=== PATIENT | female | born 1945 | race Caucasian/White ===

== ENCOUNTER 2020-08-16 07:20 | Outpatient (REF) | payer MEDICARE, SELFPAY ==
--- NOTE | 2020-08-16 07:17 | CT_ITS ---
EXAMINATION: CT CHEST WITHOUT CONTRAST CLINICAL INFORMATION: Follow-up pulmonary nodule COMPARISON: Previous chest CT August 2019 and PET/CT September 2017 TECHNIQUE: Multidetector volumetric CT imaging of the chest was done. Axial MIP volume rendering provided. Sagittal and coronal reformatted images were obtained. This CT examination was performed using dose optimization techniques as appropriate, variously including the following: *Automated exposure control *Adjustment of mA and/or kV according to patient size (this includes techniques or standardized protocols for targeted exams where dose is matched to indication/reason for exam; i.e. extremities or head) *Use of iterative reconstruction technique DLP: 69 mGy-cm FINDINGS: LUNGS: There is mild biapical pleural and parenchymal scarring that is stable. There is a 3 mm nodule in the right lower lobe axial image 326 series 7 that is stable. There is a 2 mm right lower lobe nodule axial image 285 series 7 that is stable. There is a 3 mm right lower lobe nodule in the right lower lobe axial image 350 series 7 that is stable. There is a 2 mm left upper lobe nodule axial image 202 and 207 series 7 that are stable. All pulmonary nodules appear endobronchial and may be related to mucus plugging or secretions. There is scarring or chronic subsegmental atelectasis in the lingula that is stable. MEDIASTINUM: There is mild coronary artery calcification. The heart does not appear enlarged. There is no pericardial effusion. The thoracic aorta is normal in caliber. There are no enlarged hilar or mediastinal lymph nodes. The visualized thyroid gland is unremarkable. PLEURA: There is no pleural effusion. No pleural mass or thickening. AXILLA: No lymphadenopathy. UPPER ABDOMEN: There is a low-attenuation lesion in the left lobe of the liver measuring 1.5-1.5 cm that is stable and probably represents a cyst. OSSEOUS STRUCTURES: There is scoliosis and degenerative change of the spine. IMPRESSION: Stable small pulmonary nodules.
== END 2020-08-16 07:21 | disposition home or self-care (01) ==
LOC: HO.CT 07:20
PROVIDERS: PCP Internal Medicine; Visit Provider Hospitalist
DX: R91.8 Other nonspecific abnormal finding of lung field (principal)
CPT/HCPCS: 71250

== ENCOUNTER → 2020-08-28 08:47 | Outpatient (BNVA) | payer MEDICARE, SELFPAY | PROVIDERS: PCP Internal Medicine; Referring Provider Internal Medicine; Visit Provider Hospitalist | DX: J41.0 Simple chronic bronchitis (principal); R91.8 Other nonspecific abnormal finding of lung field; K21.00 Gastro-esophageal reflux disease with esophagitis, without bleeding; A31.9 Mycobacterial infection, unspecified; Z79.82 Long term (current) use of aspirin; Z79.899 Other long term (current) drug therapy | CPT/HCPCS: 99214 ==

== ENCOUNTER 2020-09-18 08:00 | Outpatient (REF) | payer MEDICARE, SELFPAY ==
--- NOTE | 2020-09-18 08:00 | FL_ITS ---
EXAMINATION: FL BARIUM SWALLOW CLINICAL INFORMATION: Gastroesophageal reflux disease with esophagitis. COMPARISON: CT performed 08/16/2020. TECHNIQUE: Barium swallow examination is performed using fluoroscopic evaluation in addition to multiple fluoroscopic spot views. The patient is imaged both upright and prone and using both thick and thin sulfate along with effervescent granules. A 13 mm barium tablet utilized. Fluoroscopy time: 1.5 minutes DAP: 3.059 Gycm2 Images: 69 FINDINGS: There is normal oral bolus control and transfer. Normal posterior tilt of the epiglottis with elevation of the hyoid. No cricopharyngeal abnormality. Anterior fusion hardware noted at the cervical spine at the C4-C5 level. The esophagus was normal in course, caliber, and contour. There was normal distensibility with no fixed segment of narrowing. No focal mucosal abnormality was identified. The 13 mm barium tablet freely passed to the distal esophagus near the gastroesophageal junction. Mild esophageal dysmotility was observed, with stasis seen with the patient in the prone position. Contrast passed freely across the gastroesophageal junction into the stomach. No significant hiatal hernia. No gastroesophageal reflux was observed. FL/FL barium swallow IMPRESSION: Mild esophageal dysmotility. Otherwise unremarkable examination.
== END 2020-09-18 08:01 | disposition home or self-care (01) ==
LOC: HO.XRAY 08:00
PROVIDERS: PCP Internal Medicine; Visit Provider Hospitalist
DX: K21.00 Gastro-esophageal reflux disease with esophagitis, without bleeding (principal)
CPT/HCPCS: 74220

== ENCOUNTER 2020-10-02 11:00 | Outpatient (RCR) | payer MEDICARE, SELFPAY | END 2020-11-16 08:13 | disposition home or self-care (01) | LOC: HO.PTCHIC 11:00 | PROVIDERS: PCP Internal Medicine; Visit Provider Physician Assistant | DX: M77.8 Other enthesopathies, not elsewhere classified (principal) | CPT/HCPCS: 97110; 97140; 97161 ==

== ENCOUNTER 2020-10-31 08:50 | Outpatient (REF) | payer MEDICARE, SELFPAY | END 2020-10-31 08:51 | disposition home or self-care (01) | LOC: HO.LAB 08:50 | PROVIDERS: PCP Internal Medicine; Visit Provider Internal Medicine | DX: Z20.828 Contact with and (suspected) exposure to other viral communicable diseases (principal) | CPT/HCPCS: C9803; U0003 ==

== ENCOUNTER 2021-01-29 10:42 | Outpatient (RCR) | payer MEDICARE, OTHER, SELFPAY | END 2021-02-15 13:33 | disposition home or self-care (01) | LOC: HO.PTCHIC 10:42 | PROVIDERS: PCP Internal Medicine; Visit Provider Internal Medicine Rheumatology | DX: M89.49 Other hypertrophic osteoarthropathy, multiple sites (principal); M81.0 Age-related osteoporosis without current pathological fracture | CPT/HCPCS: 97110; 97140; 97162 ==

== ENCOUNTER → 2021-02-08 12:15 | Outpatient (BNVA) | payer MEDICARE, SELFPAY | PROVIDERS: PCP Internal Medicine; Visit Provider Student in an Organized Health Care Education/Training Program | DX: M47.812 Spondylosis without myelopathy or radiculopathy, cervical region (principal); M25.50 Pain in unspecified joint | CPT/HCPCS: 99202 ==

== ENCOUNTER 2021-02-12 08:30 | Outpatient (REF) | payer MEDICARE, OTHER, SELFPAY ==
[2021-02-12 09:05] LABS: MANUAL DIFF FLAG NO
[2021-02-12 09:13] LABS: Basophils Absolute Auto 0.1 X10*3/uL (0.0-0.2); Basophils Percent Auto 0.6 % (0-2); Eosinophils Absolute Auto 0.2 X10*3/uL (0.0-0.4); Eosinophils Percent Auto 2.6 % (0-4); Hemoglobin 12.4 g/dl (12.0-16.0); Imm Gran Abs Auto 0.02 X10*3/uL (0.00-0.03); Imm Gran Pct Auto 0.3 % (0.0-0.4); Lymphocytes Absolute Auto 2.2 X10*3/uL (1.2-4.9); Lymphocytes Percent Auto 27.7 % (20-40); Mean Corpuscular HGB Conc 31.8 g/dl (31.0-35.0); Mean Corpuscular Hemoglobin 30.8 pg (27.0-33.0); Mean Corpuscular Volume 96.8 fL (80-98); Mean Platelet Volume 8.9 fL (9.4-12.3); Monocytes Absolute Auto 0.8 X10*3/uL (0.1-1.2); Monocytes Percent Auto 10.1 % (2-11); Neutrophils Absolute Auto 4.6 X10*3/uL (2.0-8.3); Neutrophils Percent Auto 58.7 % (45-73); Platelet Count 230 X10*3/uL (160-400); Red Blood Count 4.03 X10*6/uL (4.20-5.50); Red Cell Distribution Width 13.1 % (11.0-16.0); White Blood Count 7.8 X10*3/uL (4.8-10.8)
[2021-02-12 09:36] LABS: Rheumatoid Factor < 15.0 IU/mL (<15.0)
[2021-02-12 09:39] LABS: Alanine Aminotransferase 10 U/L (0-31); Albumin Level 3.9 g/dL (3.5-5.0); Alkaline Phosphatase 81 U/L (39-117); Anion Gap 11 (12-20); Aspartate Amino Transferase 17 U/L (5-31); Bilirubin Total 0.9 mg/dL (0.0-1.0); Blood Urea Nitrogen 9 mg/dL (9-16); C Reactive Protein 0.04 mg/dL (< or = 0.50); Calcium 8.7 mg/dL (8.4-10.2); Carbon Dioxide 26 mmol/L (22-29); Chloride 109 mmol/L (96-108); Estimated Glomerular Filt Rate > 60; Glucose Random 73 mg/dL (60-115); Potassium 3.5 mmol/L (3.3-5.1); Sodium 142 mmol/L (135-145); Total Protein 5.8 g/dL (6.5-8.0)
[2021-02-12 09:53] LABS: Erythrocyte Sedimentation Rate 4 MM/HR (0-20)
[2021-02-13 15:11] LABS: Cyclic Citrullinated Peptide <16 UNITS
[2021-02-16 15:12] LABS: Vitamin D 25-OH, D2 33 ng/mL; Vitamin D 25-OH, D3 9 ng/mL; Vitamin D 25-OH, Total 42 ng/mL (30-100)
== END 2021-02-12 08:31 | disposition home or self-care (01) ==
LOC: HO.LAB 08:30
PROVIDERS: PCP Internal Medicine; Visit Provider Student in an Organized Health Care Education/Training Program
DX: M25.50 Pain in unspecified joint (principal)
CPT/HCPCS: 36415; 80053; 82306; 85025; 85652; 86140; 86200; 86431

== ENCOUNTER → 2021-02-22 09:19 | Outpatient (BNVA) | payer MEDICARE, OTHER, SELFPAY | PROVIDERS: PCP Internal Medicine; Visit Provider Student in an Organized Health Care Education/Training Program | DX: M47.812 Spondylosis without myelopathy or radiculopathy, cervical region (principal); M25.50 Pain in unspecified joint | CPT/HCPCS: 99212 ==

== ENCOUNTER → 2021-02-27 10:03 | Outpatient (BNVA) | payer MEDICARE, OTHER, SELFPAY | PROVIDERS: PCP Internal Medicine; Visit Provider Hospitalist | DX: A31.9 Mycobacterial infection, unspecified (principal); J41.0 Simple chronic bronchitis; R91.8 Other nonspecific abnormal finding of lung field | CPT/HCPCS: 99212 ==

== ENCOUNTER 2021-03-12 08:31 | Outpatient (REF) | payer MEDICARE, OTHER, SELFPAY ==
[2021-03-12 09:10] LABS: MANUAL DIFF FLAG NO
[2021-03-12 09:16] LABS: Basophils Absolute Auto 0.1 X10*3/uL (0.0-0.2); Basophils Percent Auto 0.7 % (0-2); Eosinophils Absolute Auto 0.1 X10*3/uL (0.0-0.4); Eosinophils Percent Auto 0.8 % (0-4); Hematocrit 37.4 % (37-47); Hemoglobin 11.9 g/dl (12.0-16.0); Imm Gran Abs Auto 0.02 X10*3/uL (0.00-0.03); Imm Gran Pct Auto 0.3 % (0.0-0.4); Lymphocytes Absolute Auto 2.2 X10*3/uL (1.2-4.9); Lymphocytes Percent Auto 29.6 % (20-40); Mean Corpuscular HGB Conc 31.8 g/dl (31.0-35.0); Mean Corpuscular Hemoglobin 30.7 pg (27.0-33.0); Mean Corpuscular Volume 96.4 fL (80-98); Mean Platelet Volume 9.2 fL (9.4-12.3); Monocytes Absolute Auto 0.7 X10*3/uL (0.1-1.2); Neutrophils Absolute Auto 4.4 X10*3/uL (2.0-8.3); Neutrophils Percent Auto 59.6 % (45-73); Platelet Count 221 X10*3/uL (160-400); Red Blood Count 3.88 X10*6/uL (4.20-5.50); Red Cell Distribution Width 13.5 % (11.0-16.0); White Blood Count 7.4 X10*3/uL (4.8-10.8)
[2021-03-12 09:38] LABS: Alanine Aminotransferase 11 U/L (0-31); Albumin Level 3.8 g/dL (3.5-5.0); Alkaline Phosphatase 69 U/L (39-117); Amylase 68 U/L (28-100); Aspartate Amino Transferase 15 U/L (5-31); Bilirubin Direct 0.4 mg/dL (0.0-0.5); Bilirubin Total 1.2 mg/dL (0.0-1.0); Lipase 51 U/L (8-78); Total Protein 5.6 g/dL (6.5-8.0)
== END 2021-03-12 08:32 | disposition home or self-care (01) ==
LOC: HO.LAB 08:31
PROVIDERS: PCP Internal Medicine; Visit Provider Internal Medicine
DX: K83.9 Disease of biliary tract, unspecified (principal)
CPT/HCPCS: 36415; 80076; 82150; 83690; 85025

== ENCOUNTER → 2021-03-15 08:24 | Outpatient (BNVA) | payer MEDICARE, OTHER, SELFPAY | PROVIDERS: PCP Internal Medicine; Visit Provider Urology | DX: N28.1 Cyst of kidney, acquired (principal); T81.89XA Other complications of procedures, not elsewhere classified, initial encounter | CPT/HCPCS: 51798; 99212 ==

== ENCOUNTER 2021-06-12 11:34 | Outpatient (REF) | payer MEDICARE, OTHER, SELFPAY ==
--- NOTE | ~2021-06-12 | XR_ITS ---
EXAMINATION: XR CHEST CLINICAL INFORMATION: Dyspnea. COMPARISON: Chest film dated 09/02/2019. Scalp film from CT of 08/16/2020. TECHNIQUE: Two views of the chest were obtained. FINDINGS: There is no acute finding here. No obvious failure or infiltrate. Markings left base once again seen. Mild scoliosis is once again noted. The cardiac silhouette is within normal limits. The hilar structures do not appear to be pathologically enlarged and appear comparable to previous. Some degeneration in the thoracic spine. XR/XR chest 2V IMPRESSION: No acute finding.
[2021-06-12 12:58] LABS: MANUAL DIFF FLAG NO
[2021-06-12 13:04] LABS: Basophils Percent Auto 0.5 % (0-2); Eosinophils Absolute Auto 0.1 X10*3/uL (0.0-0.4); Eosinophils Percent Auto 0.9 % (0-4); Hematocrit 37.7 % (37-47); Hemoglobin 12.3 g/dl (12.0-16.0); Imm Gran Abs Auto 0.03 X10*3/uL (0.00-0.03); Imm Gran Pct Auto 0.3 % (0.0-0.4); Lymphocytes Absolute Auto 0.7 X10*3/uL (1.2-4.9); Lymphocytes Percent Auto 8.4 % (20-40); Mean Corpuscular HGB Conc 32.6 g/dl (31.0-35.0); Mean Corpuscular Hemoglobin 30.6 pg (27.0-33.0); Mean Corpuscular Volume 93.8 fL (80-98); Mean Platelet Volume 9.3 fL (9.4-12.3); Monocytes Absolute Auto 0.4 X10*3/uL (0.1-1.2); Neutrophils Absolute Auto 7.5 X10*3/uL (2.0-8.3); Neutrophils Percent Auto 85.9 % (45-73); Platelet Count 236 X10*3/uL (160-400); Red Blood Count 4.02 X10*6/uL (4.20-5.50); Red Cell Distribution Width 12.4 % (11.0-16.0); White Blood Count 8.7 X10*3/uL (4.8-10.8)
[2021-06-12 13:16] LABS: D Dimer < 200 NG/ML
[2021-06-12 13:24] LABS: Anion Gap 12 (12-20); Blood Urea Nitrogen 10 mg/dL (9-16); Calcium 9.9 mg/dL (8.4-10.2); Carbon Dioxide 25 mmol/L (22-29); Chloride 109 mmol/L (96-108); Estimated Glomerular Filt Rate > 60; Glucose Random 109 mg/dL (60-115); Potassium 4.3 mmol/L (3.3-5.1); Sodium 142 mmol/L (135-145)
[2021-06-12 13:28] LABS: B Type Natriuretic Peptide 104 pg/mL (<100); Troponin-I High Sensitivity < 3.5 ng/L (<3.5-17.0)
[2021-06-12 13:49] LABS: Erythrocyte Sedimentation Rate 14 MM/HR (0-20)
[2021-06-14 04:28] LABS: SARS COV2 IgG Negative (Negative)
== END 2021-06-12 11:35 | disposition home or self-care (01) ==
LOC: HO.XRAY 11:34
PROVIDERS: PCP Internal Medicine; Visit Provider Hospitalist
DX: J44.9 Chronic obstructive pulmonary disease, unspecified (principal); J06.9 Acute upper respiratory infection, unspecified; R91.8 Other nonspecific abnormal finding of lung field; Z01.84 Encounter for antibody response examination
CPT/HCPCS: 36415; 71046; 80048; 83880; 84484; 85025; 85379; 85652; 86769; 99212

== ENCOUNTER 2021-06-13 09:01 | Emergency (ER) | payer MEDICARE, OTHER, SELFPAY ==
--- NOTE | 2021-06-13 | ECG_ITS ---
Test Reason : DYSPNEA Blood Pressure : / mmHG Vent. Rate : 072 BPM Atrial Rate : 072 BPM P-R Int : 136 ms QRS Dur : 088 ms QT Int : 390 ms P-R-T Axes : 076 -18 012 degrees QTc Int : 427 ms Normal sinus rhythm Normal ECG When compared with ECG of 02-SEP-2019 17:48, Nonspecific T wave abnormality now evident in Anterior leads Referred By: Ravi Gregory Electronically Signed By:ANTWAN BONILLA MD
[2021-06-13 09:06] VITALS: BP 129/51; PULSE 79; RESP 14; TEMP 36.7; O2SAT 99; BMI 20.5
[2021-06-13 09:22] VITALS: BP 139/57; PULSE 71; RESP 16; O2SAT 98
[2021-06-13 09:23] VITALS: RESP 18
--- NOTE | 2021-06-13 10:37 | ED_ITS ---
HPI - SOB/Dyspnea General Chief Complaint: Dyspnea Stated Complaint: diff breathing Time Seen by Provider: 06/13/21 09:15 Source: patient and family ( , Cristofer) Mode of arrival: ambulatory Limitations: no limitations History of Present Illness HPI Narrative: 75-year-old female who presents emergency department for evaluation of shortness of breath. The patient states that she has chronic shortness of breath which is intermittent and she has had an on and off all year. She states the shortness of breath is gotten worse over the past 2 days. The patient states that she is experiencing chest tightness with her shortness of breath and the shortness of breath and tightness is worse with exertion especially if she goes upstairs. She states that she has an occasional cough of clear mucus. She denied fever or chills. She states that she has had some nausea mainly after drinking diet soda. She denied neck pain, jaw pain, arm pain or back pain. The patient was seen yesterday by her slurry worker, Dr. Lino who did blood work on the patient and a chest x-ray. The patient had a CBC, CMP, BNP, troponin. These tests were all normal. The patient had a chest x-ray which on my review did not reveal any acute findings, the patient does have COPD changes on the x-ray. The patient was started on prednisone tapering course and she took 1 dose today. She states that she was not feeling any better and she felt that her shortness of breath was slightly worse therefore she called her customer program manager's office. The office staff recommended that she go to the emergency department for evaluation of shortness of breath. Related Data Home Medications Medication Instructions Recorded Confirmed alprazolam 0.5 mg tablet (Xanax) 0.5 mg PO BEDTIME PRN 08/28/20 02/27/21 aspirin 81 mg tablet,delayed 81 mg PO DAILY 08/28/20 02/27/21 release atorvastatin 40 mg tablet 40 mg PO DAILY 08/28/20 02/27/21 escitalopram oxalate 10 mg tablet 10 mg PO DAILY 08/28/20 02/27/21 (Lexapro) famotidine 20 mg tablet (Pepcid) 20 mg PO BID 08/28/20 02/27/21 flu vacc [id number](65yr up)-PF 240 ml IM 08/28/20 02/27/21 mcg/0.7 mL intramuscular syringe lactobacillus combination no.8 3 3,000 mmu cells PO DAILY 08/28/20 02/27/21 billion cell capsule (Adult Probiotic) prochlorperazine maleate 10 mg 10 mg PO Q8H PRN 08/28/20 02/27/21 tablet (Compazine) varicella-zoster glycoE [id number] IM 08/28/20 02/27/21 adj(PF) 50 mcg/0.5 mL IM susp, kit vitamin B complex (B 1 tab PO DAILY 08/28/20 02/27/21 Complex-Vitamin B12) zoledronic acid 5 mg/100 mL in IV 08/28/20 02/27/21 mannitol 5 %-water intravenous piggybck (Reclast) acetaminophen 500 mg tablet 1,000 mg PO Q6H PRN 02/08/21 02/27/21 (Tylenol Extra Strength) estradiol (Estrace) 1 g VAGINAL QWEEK 02/08/21 02/27/21 loratadine 10 mg tablet (Claritin) 10 mg PO DAILY 02/08/21 02/27/21 lifitegrast 5 % eye drops in a drp OPHTHALMIC (EYE) 02/27/21 02/27/21 dropperette levocetirizine 5 mg tablet 5 mg PO DAILY 06/12/21 Previous Rx's Medication Instructions Recorded azithromycin 250 mg tablet 250 mg PO 3XW 28 Days #12 tab 08/28/20 fluticasone propionate 115 2 puff PO BID #12 g 01/16/21 mcg-salmeterol 21 mcg/actuation HFA inhaler (Advair HFA) gabapentin 100 mg capsule 100 mg PO BEDTIME #30 cap 02/14/21 cholecalciferol (vitamin D3) 25 25 mcg PO DAILY #90 cap 03/02/21 mcg (1,000 unit) capsule albuterol sulfate 2.5 mg INHALATION Q6H PRN 30 Days 05/29/21 #270 ml methylprednisolone 4 mg tablets in See Rx Instructions PO PER PKG DIR 06/12/21 a dose pack (Medrol (Moiz)) 6 Days #21 ea Allergies Allergy/AdvReac Type Severity Reaction Status Date / Time codeine [CODEINE] Allergy Mild ITCHING Verified 06/12/21 11:43 fluconazole [From DIFLUCAN] Allergy Mild sensitivity Verified 06/12/21 11:43 gatifloxacin [From TEQUIN] Allergy Mild sensitivity Verified 06/12/21 11:43 levofloxacin [From Levaquin] Allergy Mild sensitivity Verified 06/12/21 11:43 quinidine [QUINIDINE] Allergy Mild sensitivity Verified 06/12/21 11:43 Sulfa (Sulfonamide Allergy Mild RASH Verified 06/12/21 11:43 Antibiotics) [SULFA (SULFONAMIDE ANTIBIOTICS)] terfenadine [From SELDANE] Allergy Mild sensitivity Verified 06/12/21 11:43 tetracycline [TETRACYCLINE] Allergy Mild sensitivity Verified 06/12/21 11:43 naproxen [From NAPROSYN] Allergy Unknown sensitivity Verified 06/12/21 11:43 niacin Allergy Unknown RASH Verified 06/12/21 11:43 [From NIASPAN EXTENDED-RELEASE] Penicillins [PENICILLINS] Allergy Unknown ITCHING Verified 06/12/21 11:43 clarithromycin [From BIAXIN] AdvReac Mild sensitivity Verified 06/12/21 11:43 topiramate [From TOPAMAX] AdvReac Mild STOMACH Verified 06/12/21 11:43 UPSET cefaclor [From CECLOR] AdvReac Unknown UNKNOWN Verified 06/12/21 11:43 augmentin Allergy Mild sensitivity Uncoded 06/12/21 11:43 From NEXIUM Allergy Mild HIVES Uncoded 06/12/21 11:43 From PERCOCET Allergy Mild ITCHING Uncoded 06/12/21 11:43 From ULTRACET Allergy Mild RASH Uncoded 06/12/21 11:43 From VICODIN Allergy Mild RASH Uncoded 06/12/21 11:43 From LIPITOR AdvReac Mild HEADACHES Uncoded 06/12/21 11:43 From SINGULAIR AdvReac Mild HEADACHES Uncoded 06/12/21 11:43 Review of Systems Review of Systems: Yes all other systems are reviewed and are negative [facility] Past Medical History [facility] Narrative: Past medical history: Reviewed below, the patient did have a nuclear stress test on December 2019 which was normal. Last echocardiogram was in 2017 and this was normal. This information was obtained from [facility], Dr. Hurst. Social history: The patient is and her Cristofer is here in the emergency department with her. The patient denies tobacco use. She denies alcohol use. She denies drug use. Medical History COPD (chronic obstructive pulmonary disease) Cough Dyspnea GERD (gastroesophageal reflux disease) Microscopic hematuria Mycobacterial disease Osteoporosis Overactive bladder Pulmonary nodules Renal cyst URI (upper respiratory infection) Urinary urgency Surgical History History of surgery S/P cervical spinal fusion Family History Family History Son No problems noted. Social History Social History Alcohol intake: never Patient Tobacco Use Status: Never used Tobacco Use of substances other than those prescribed or required for medical reasons: No Advance Directives: Yes Advance Directives on File: Yes Advance Directives Date on File: 08/16/20 Physical Exam Vital Signs: Vital Signs: Last Vital Signs Temp 98.1 F 06/13/21 09:06 Pulse 71 06/13/21 09:22 Resp 18 06/13/21 09:23 BP 139/57 L 06/13/21 09:22 Pulse Ox 98 06/13/21 09:22 Body Mass Index 20.5 Const: General: cooperative and no acute distress Orientation/consciousness: oriented to person and oriented to place Limitations: no limitations HENMT: Head: Yes normal to inspection, Yes normocephalic and Yes atraumatic Ears: external ears normal General nose exam: Normal external nose present Face and sinus: Yes normal facial exam Mouth: Normal oral and palatal mucosa present Throat: Yes posterior oropharynx normal Eyes: General: appearance normal, both eyes and all related structures Pupils: Equal, round and reactive pupils present Neck: Neck: Yes normal visual inspection, Yes no lymphadenopathy, Yes trachea midline and Yes supple Chest: Chest palpation & inspection: normal inspection of the chest and normal palpation of entire chest wall Resp: Effort & Inspection: normal respiratory effort and able to speak in complete sentences Auscultation: clear to auscultation bilaterally Cardio: Rate: regular rate Rhythm: regular rhythm Heart sounds: S1 normal heart sound present, S2 normal heart sound present and no murmurs GI: Inspection: Yes normal to inspection Palpation (GI): Soft to palpation, nontender and no guarding Auscultation: normal bowel sounds : General: Yes no CVA tenderness Back/Spine/Pelvis: Back: no CVA tenderness Skin: General skin exam: no rashes or lesions noted Neuro: General: oriented to person and oriented to place Cranial nerves: Yes CN's II-XII intact bilaterally and Yes Equal, round and reactive pupils present Cognition (Neuro): normal cognition Motor exam (neuro): 5/5 motor strength present throughout Extrem: General: Yes normal to inspection Psych: Appearance: grossly normal Speech and movement: Normal speech and movement present Affect: normal affect Attitude: cooperative Thought process: Normal thought process present Thought content: Normal thought content present Course Course Course Narrative: 75-year-old female who presents emergency department for evaluation shortness of breath and dyspnea on exertion which is gotten worse over the past 2 weeks. Patient does have COPD. The patient saw her slurry worker, Dr. Lino yesterday and had a laboratory evaluation and chest x-ray which was unremarkable. Vital signs were normal with a room air O2 saturation of 99%. The patient's physical examination was unremarkable today. Her 12 EKG was normal. I did discuss the patient's presentation with , the customer program manager covering for [facility]. The patient has an appointment with a nurse practitioner in our office for June 28, 2021. At this time, I think that the patient's symptoms are probably more related to her COPD and hopefully the prednisone tapering course will help improve her symptoms. The patient will follow-up with cardiology to rule out the possibility of coronary artery disease or cardiomyopathy is the cause of her worsening symptoms. I did discuss this with the patient and her .The patient was given verbal and printed instructions prior to discharge. The patient was advised to follow-up with her PCP in 2 days and to return to the emergency department if her symptoms get worse or if she develops any new symptoms that are concerning to her. MDM - SOB/Dyspnea ECG Data Attestation: I personally reviewed and interpreted this ECG as follows: Interpretation: 0933: Normal sinus rhythm rate of 72, normal WI interval, QRS duration and QTC interval, no ST segment elevation, no ST segment depression, no Q-waves, no PACs, no PVCs, no significant T-wave abnormalities. This is a normal EKG. Discharge Plan Discharge Clinical Impression: GOODE (dyspnea on exertion) Patient Disposition: Home, Self-Care Instructions: Dyspnea (ED) Additional Instructions: Your blood work from yesterday was all normal which is reassuring. Your chest x-ray from yesterday has not been interpreted by the radiologist yet however I do not see any pneumonia or any other obvious cause for your shortness of breath. Your EKG today was normal. It sometimes hard to determine the cause of shortness of breath with exertion and they can be related to your lungs are your heart. Finish the prednisone prescription as prescribed by Dr. Lino and hopefully this will make your shortness of breath better. I did discuss your presentation with Dr. Hurst, the customer program manager on-call at [facility]. He states that you have an appointment with their nurse practitioner on June 28, 2021. You should confirm this appointment with the office. Follow-up with your doctor in 2 days. Please return to the emergency department if your symptoms get worse or if you develop any symptoms that are concerning to you. Prescriptions: No Action fluticasone propion-salmeterol [Advair HFA] 115-21 mcg/actuation HFA aerosol inhaler 2 puff PO BID Qty: 12 RF: 3 gabapentin 100 mg capsule 100 mg PO BEDTIME Qty: 30 RF: 3 cholecalciferol (vitamin D3) 25 mcg (1,000 unit) capsule 25 mcg PO DAILY Qty: 90 RF: 1 albuterol sulfate 2.5 mg /3 mL (0.083 %) solution for nebulization 2.5 mg inhalation Q6H PRN (Reason: shortness of breath or wheezing) 30 Days Qty: 270 RF: 11 aspirin 81 mg tablet,delayed release (DR/EC) 81 mg PO DAILY RF: 0 atorvastatin 40 mg tablet 40 mg PO DAILY RF: 0 prochlorperazine maleate [Compazine] 10 mg tablet 10 mg PO Q8H PRNRF: 0 Adult Probiotic 3 billion cell capsule 3,000 mmu cells PO DAILY RF: 0 zoledronic [id number] [Reclast] 5 mg/100 mL piggyback IV RF: 0 alprazolam [Xanax] 0.5 mg tablet 0.5 mg PO BEDTIME PRNRF: 0 escitalopram oxalate [Lexapro] 10 mg tablet 10 mg PO DAILY RF: 0 famotidine [Pepcid] 20 mg tablet 20 mg PO BID RF: 0 vitamin B complex [B Complex-Vitamin B12] Tablet 1 tab PO DAILY RF: 0 Fluzone HighDose Quad 20-21 PF 240 mcg/0.7 mL syringe IM RF: 0 Shingrix (PF) 50 mcg/0.5 mL suspension for reconstitution IM RF: 0 azithromycin 250 mg tablet 250 mg PO 3XW 28 Days Qty: 12 RF: 8 levocetirizine 5 mg tablet 5 mg PO DAILY RF: 0 methylprednisolone [Medrol (Moiz)] 4 mg tablets,dose pack See Rx Instructions PO PER PKG DIR 6 Days Qty: 21 RF: 0 Xiidra 5 % dropperette ophthalmic (eye) RF: 0 loratadine [Claritin] 10 mg tablet 10 mg PO DAILY RF: 0 estradiol [Estrace] 0.01 % (0.1 mg/gram) cream 1 g vaginal QWEEK RF: 0 acetaminophen [Tylenol Extra Strength] 500 mg tablet 1,000 mg PO Q6H PRNRF: 0
== END 2021-06-13 10:45 | disposition home or self-care (01) ==
PROVIDERS: Emergency Provider Emergency Medicine Emergency Medical Services; PCP Internal Medicine
DX: R06.00 Dyspnea, unspecified (principal); R06.02 Shortness of breath; J44.9 Chronic obstructive pulmonary disease, unspecified; Z79.899 Other long term (current) drug therapy
CPT/HCPCS: 93005; 99283; 99284

== ENCOUNTER → 2021-06-18 11:03 | Outpatient (REF) | payer MEDICARE, OTHER, SELFPAY ==
--- NOTE | 2021-06-18 11:06 | CA_ITS ---
Transthoracic Echocardiogram Patient (Last, First, Middle): Adelina Tavarez A Gender: Female Date of : 1945 Age: 75 Procedure Date: 06/18/2021 Procedure Type: Transthoracic Echocardiogram Location: OP Height: 152.4 cm Weight: 47.63 kg BSA: 1.42 m2 Heart Rate: bpm BP: 110 / 60 mmHg Animal Cruelty Investigator: HALEY Referring MD: Jose Cornejo MD Symptoms: R06.02 - Shortness of breath Study Quality: Good ECG Rhythm: Sinus Conclusions: - The left ventricular systolic function is normal. The calculated ejection fraction is 59% by biplane method. - There is a mobile atrial septum noted. No definite PFO by color doppler. - There is mild mitral valve regurgitation. Findings Left Ventricle Normal left ventricular cavity size. There is normal left ventricular wall thickness. The left ventricular systolic function is normal. The calculated ejection fraction is 59% by biplane method. There is no evidence of regional wall motion abnormalities. Evidence suggests grade I (mild) diastolic dysfunction. Right Ventricle Normal right ventricular cavity size. There is normal right ventricular systolic function. TAPSE 1.83cm. Atria Both atria are normal in size. There is a mobile atrial septum noted. No definite PFO by color doppler. Aortic Valve There is a normal trileaflet aortic valve. There is no aortic valve stenosis. There is no aortic valve regurgitation. Mitral Valve There is mild anterior and posterior mitral leaflet thickening. There is mild mitral annular calcification. There is mild mitral valve regurgitation. There is no mitral valve stenosis. Pulmonic Valve The pulmonic valve was not well visualized. Tricuspid Valve Normal tricuspid valve structure. There is trace tricuspid valve regurgitation. The pulmonary artery systolic pressure is normal. Great Vessels The aortic annulus, sinuses of valsalva, and asc aorta are normal in size. Venous The inferior vena cava is normal in size and collapses greater than 50% with inspiration. Pericardium/Pleural There is no evidence of pericardial effusion. Prior Study Comparison No significant change compared to prior study dated: 04/23/2019. Measurements 2D Linear Measurements IVSd: 0.83 0.6-0.9/0.6-1.0 cm LVIDd: 4.37 3.9-5.3/4.2-5.9 cm LVIDd Index: 3.08 2.4-3.2/2.2-3.1 cm/m2 LVIDs: 2.55 2.0-3.6 cm LVPWd: 0.78 0.7-1.1 cm Ao Root: 2.90 2.1-3.5 cm LA Diam: 3.30 2.7-3.8/3.0-4.0 cm LAIDs Index: 2.32 1.5-2.3 cm/m2 LV Mass: 134.94 67-162/88-224 g LV Mass Index: 95.03 43-95/49-115 g/m2 LVOT Diam: 2.00 3.0+(-)1.3 cm 2D Systolic Function EF 4C: 55.80 >55% EF 2C: 63.40 >55% EF BiP: 58.90 >55% Mitral Valve MV Pk E: 0.66 MV PK A: 0.91 MV Decel Time: 335.00 E/A: 0.70 E'Lateral: 8.59 E'Medial: 6.31 E/E' Med: 10.40 E/E' Lat: 7.60 PHT: 98.00 MVA PHT: 2.24 Decel Jewell: 1.96 Aortic Valve AoV Pk Barry: 1.23 AoV Mn Barry: 0.92 AoV VTI: 0.28 AoV Pk Grad: 6.00 Aov Mn Grad: 4.00 RAHEEM Cont.VTI: 2.16 LVOT LVOT Pk Barry: 0.83 LVOT Mn Barry: 0.55 LVOT VTI: 0.19 LVOT Pk Grad: 3.00 LVOT Mn Grad: 1.00 LVOT Diam: 2.00 LVOT Area: 3.14 Diastolic Function MV Pk E: 0.66 MV Pk A: 0.91 E/A: 0.70 E'Medial: 6.31 E/E' Med: 10.40 E' Laterial: 8.59 E/E' Lat: 7.60 Right Ventricle TAPSE (mm): 1.83 Tricuspid Valve TR Pk Barry: 2.12 TR Pk Grad: 18.00 RA Press: 3.00 RVSP: 21.00 Great Vessels Aorta Ao Root-2D: 2.90 2.0-3.7 cm Ao Asc: 2.80 2.1-3.4 cm Ao Arch: 2.50 Updated in Other Vendor System with Status of Final Chris Salazar MD electronically signed on 06/18/2021 4:34:24 PM with status of Final
== END ==
LOC: HO.CARD 11:03
PROVIDERS: Visit Provider Internal Medicine Cardiovascular Disease
DX: R06.02 Shortness of breath (principal)
CPT/HCPCS: 93306

== ENCOUNTER → 2021-06-19 12:42 | Outpatient (BNVA) | payer MEDICARE, OTHER, SELFPAY | PROVIDERS: Visit Provider Internal Medicine | DX: R06.02 Shortness of breath (principal); R07.2 Precordial pain; I25.10 Atherosclerotic heart disease of native coronary artery without angina pectoris; J41.0 Simple chronic bronchitis | CPT/HCPCS: 99212 ==

== ENCOUNTER 2021-06-21 08:36 | Outpatient (REF) | payer MEDICARE, OTHER, SELFPAY ==
--- NOTE | ~2021-06-21 | CT_ITS ---
EXAMINATION: CT ANGIOGRAM OF THE CHEST WITH AND WITHOUT CONTRAST (CT PULMONARY ANGIOGRAM FOR PE) CLINICAL INFORMATION: Reason for Exam R06.02 - Shortness of breath COMPARISON: None TECHNIQUE: Prior to contrast administration, noncontrast localization images were obtained. Subsequently, multidetector volumetric imaging was performed from the thoracic inlet to below the diaphragms following the administration of 65 mL Omnipaque 350 intravenous contrast. No contrast reaction reported Sagittal, coronal, and MIP oblique sagittal reformatted images were obtained on the CT workstation, uploaded to PACS, and reviewed. This CT examination was performed using dose optimization techniques as appropriate, variously including the following: *Automated exposure control *Adjustment of mA and/or kV according to patient size (this includes techniques or standardized protocols for targeted exams where dose is matched to indication/reason for exam; i.e. extremities or head) *Use of iterative reconstruction technique Total exam dose-length product 69 mGy-cm FINDINGS: QUALITY OF STUDY/CONTRAST BOLUS: Satisfactory. PULMONARY ARTERIES: No central or segmental pulmonary emboli. THORACIC AORTA: No aneurysm or dissection. LUNG: The lungs are well-expanded with patchy opacity left lower lobe anterobasal segment likely focal atelectasis. No consolidation, mass or pulmonary nodule visualized. PLEURA: No pleural effusion or pneumothorax. MEDIASTINUM: The heart size is normal. No pericardial effusion seen. Central trachea and the bronchi are widely patent. No abnormal size mediastinal or hilar lymph nodes seen. The thyroid lobes are symmetrical and normal. No evidence of septal bowing or right heart strain. CHEST WALL/AXILLA: No axillary or internal mammary lymphadenopathy. OSSEOUS STRUCTURES: There is no lytic or sclerotic process seen. UPPER ABDOMEN: 1.1 cm left hepatic lobe hypodensity. No additional liver lesions seen. No intrahepatic ductal dilatation. Visualized spleen, gallbladder and bilateral adrenal glands are unremarkable. No reflux of contrast into the hepatic veins to suggest elevated right heart pressures. CT/CT angio chest PE protocol IMPRESSION: No evidence of PE. No evidence aortic dissection. Minimal atelectatic changes left lower lobe anterobasal segment. VTE: negative
[2021-06-21] MEDS: iohexoL 350 MG/ML 100 ML INFUS..BTL IV (10:22)
== END 2021-06-21 08:37 | disposition home or self-care (01) ==
LOC: HO.CT 08:36
PROVIDERS: PCP Internal Medicine; Visit Provider Hospitalist
DX: R07.2 Precordial pain (principal); R06.02 Shortness of breath
CPT/HCPCS: 71275; Q9967

== ENCOUNTER → 2021-06-25 08:20 | Outpatient (BNVA) | payer MEDICARE, OTHER, SELFPAY | PROVIDERS: PCP Internal Medicine; Visit Provider Internal Medicine | DX: I25.10 Atherosclerotic heart disease of native coronary artery without angina pectoris (principal); J41.0 Simple chronic bronchitis; R06.02 Shortness of breath; R07.2 Precordial pain | CPT/HCPCS: 99212 ==

== ENCOUNTER → 2021-06-26 13:54 | Outpatient (BNVA) | payer MEDICARE, OTHER, SELFPAY | PROVIDERS: PCP Internal Medicine; Visit Provider Hospitalist | DX: J41.0 Simple chronic bronchitis (principal); R06.02 Shortness of breath; R91.8 Other nonspecific abnormal finding of lung field | CPT/HCPCS: 99212 ==

== ENCOUNTER 2021-07-04 08:52 | Outpatient (REF) | payer MEDICARE, OTHER, SELFPAY ==
--- NOTE | 2021-07-04 09:50 | PFT_ITS ---
Forced vital capacity, FEV1, [id number], and MVV are all normal. Post bronchodilator therapy, there is no change. Total lung capacity and residual volume normal. Diffusion capacity normal. CONCLUSION: Normal pulmonary function test and there is no evidence of obstructive or restrictive pulmonary disorder. Compared to the PFT report of 07/27/2019, there is no significant change. Numbers are actually slightly improved. MD MASOUD Barron/MODL / [id number]
== END 2021-07-04 08:53 | disposition home or self-care (01) ==
LOC: HO.RESP 08:52
PROVIDERS: PCP Internal Medicine; Visit Provider Hospitalist
DX: R06.02 Shortness of breath (principal)
CPT/HCPCS: 94060; 94727; 94729

== ENCOUNTER → 2021-07-16 08:39 | Outpatient (BNVA) | payer MEDICARE, OTHER, SELFPAY | PROVIDERS: PCP Internal Medicine; Visit Provider Hospitalist | DX: J41.0 Simple chronic bronchitis (principal); R91.8 Other nonspecific abnormal finding of lung field; R06.02 Shortness of breath | CPT/HCPCS: 99212 ==

== ENCOUNTER 2021-07-17 09:11 | Outpatient (REF) | payer MEDICARE, OTHER, SELFPAY ==
[2021-07-17 11:02] LABS: Erythrocyte Sedimentation Rate 7 MM/HR (0-20)
[2021-07-18 14:46] LABS: Immunoglobulin A 126 mg/dL (70-320)
[2021-07-19 01:36] LABS: Transglutaminase Ab IgG 1 U/mL; Transglutaminase IgA 1 U/mL
[2021-07-21 10:52] LABS: Endomysial IgA Antibody Negative (Negative)
== END 2021-07-17 09:12 | disposition home or self-care (01) ==
LOC: HO.LAB 09:11
PROVIDERS: PCP Internal Medicine; Visit Provider Hospitalist
DX: R05 Cough (principal)
CPT/HCPCS: 36415; 82784; 83516; 85652; 86255; 86256

== ENCOUNTER 2021-08-03 17:14 | Inpatient (IN) | payer MEDICARE, OTHER, SELFPAY ==
[2021-08-03] VITALS (24 sets, daily range): BP systolic 120–166; BP diastolic 57–125; PULSE 75–105; RESP 16–40; TEMP 37.2–37.5; O2SAT 95–99; BMI 21.6; BMI 21.2
--- NOTE | ~2021-08-03 | MR_ITS ---
EXAMINATION: MR BRAIN WITHOUT CONTRAST CLINICAL INFORMATION: Acute CVA with aphasia. COMPARISON: CT dated 08/03/2021. TECHNIQUE: Multiplanar, multisequence imaging of the brain was performed without contrast. FINDINGS: There is a small acute infarct in the right cerebellar hemisphere. The ventricles are normal in size. No mass effect or midline shift is seen. Mild chronic white matter microangiopathic changes noted. No extra-axial fluid collections are seen. The brainstem is normal. The gradient refocused acquisition demonstrates no pathologic magnetic susceptibility artifact to indicate underlying acute or chronic blood products. Significant degenerative changes of the right temporomandibular joint. The craniovertebral junction, marrow signal, and midline structures are normal. The major intracranial flow voids at the level of the [place] of [place] are preserved. The dural venous sinus flow voids are maintained. The mastoid air cells are well aerated. There is severe mucosal disease in the left maxillary antrum and mild to moderate anterior ethmoid sinus mucosal thickening, more so on the left side. MR/MR head/brain wo con IMPRESSION: Small acute infarct in the right cerebellar hemisphere.
--- NOTE | ~2021-08-03 | CT_ITS ---
EXAMINATION: CTA OF THE HEAD AND NECK CLINICAL INFORMATION: Expressive aphasia. COMPARISON: Head CT from earlier in the same day on 08/03/2021 and brain MRI dated 09/02/2019. TECHNIQUE: Test bolus sequences followed by intravenous administration 70 mL of Omnipaque 350. Helical imaging was performed in the axial plane from the mediastinum to the skull vertex. Delayed postcontrast imaging of the head was also performed. The data was processed at the sterile processing technologist's workstation for generation of MIP sequences. Three-dimensional volume rendered reformatted images were also generated at an offline 3-D workstation. Stenoses are assessed in accordance with NASCET criteria unless otherwise indicated. This CT examination was performed using dose optimization techniques as appropriate, variously including the following: *Automated exposure control *Adjustment of mA and/or kV according to patient size (this includes techniques or standardized protocols for targeted exams where dose is matched to indication/reason for exam; i.e. extremities or head) *Use of iterative reconstruction technique DLP: 1307 mGy-cm. FINDINGS: CTA neck: The imaged aortic arch and origins of the great vessels are normal. The common carotid arteries are widely patent. The carotid bifurcations are patent with mild atherosclerotic wall calcifications. The cervical internal carotid arteries are normal in caliber. The vertebral arteries opacify normally and are of normal caliber. The soft tissues of the neck are unremarkable. Severe left maxillary sinus disease again visible with chronic sclerotic wall thickening. There are severe degenerative changes of the right TMJ. Anterior cervical fusion hardware in place at the C4-C5 level with moderate spondylosis at C5-C6 and multilevel facet arthropathy. The imaged portions of the lungs are clear. CTA head: The intradural vertebral arteries and basilar artery are normal. The posterior cerebral arteries are widely patent. The internal carotid arteries are of normal caliber. The DEBBIE and MCA vascular complexes bilaterally are normal. The venous sinuses opacify normally. CT/CT angio head neck stroke IMPRESSION: Relatively normal CT angiogram of the head and neck. No significant stenosis or vessel occlusion. Severe left maxillary sinus disease. Advanced degenerative changes of the right temporomandibular joint. Imaging findings reported to Dr. Lara at 6:15 PM on 08/03/2021.
--- NOTE | ~2021-08-03 | CT_ITS ---
CT head/brain wo con CLINICAL INFORMATION: Reason for Exam post tpa COMPARISON: Prior CT one day earlier. TECHNIQUE: Department standard protocol. Noncontrasted study. This CT examination was performed using dose optimization techniques as appropriate, variously including the following: *Automated exposure control *Adjustment of mA and/or kV according to patient size (this includes techniques or standardized protocols for targeted exams where dose is matched to indication/reason for exam; i.e. extremities or head) *Use of iterative reconstruction technique DLP: 587 mGy-cm FINDINGS: CEREBRAL HEMISPHERES: There is no evidence of intra-axial or extra-axial mass, hemorrhage or acute infarct. BRAIN PARENCHYMA: Normal vásquez-white matter differentiation. SUBDURAL SPACE: No bleed. BASAL GANGLIA AND PINEAL GLAND: Unremarkable VENTRICLES: Symmetric and normal in size. CEREBELLUM AND BRAINSTEM: No space-occupying mass, hemorrhage or acute infarct. CEREBELLOPONTINE ANGLES: Lacunar infarct right cerebellar lobe. ORBITS: No intraorbital mass. VESSELS: Unremarkable SKULL BASE: Unremarkable INCLUDED SINUSES AT SKULL BASE: Clear SKULL AND SKIN: No fracture or bone lesion found. CT/CT head/brain wo con IMPRESSION: Small lacunar infarct right cerebellar lobe unchanged. CT otherwise normal, no intracranial hemorrhage.
--- NOTE | ~2021-08-03 | CT_ITS ---
EXAMINATION: CT HEAD WITHOUT CONTRAST (STROKE PROTOCOL) CLINICAL INFORMATION: Stroke protocol. Aphasia. COMPARISON: CT head September 02, 2019 TECHNIQUE: Contiguous axial imaging was performed from the skull base to vertex without intravenous administration of contrast. This CT examination was performed using dose optimization techniques as appropriate, variously including the following: *Automated exposure control *Adjustment of mA and/or kV according to patient size (this includes techniques or standardized protocols for targeted exams where dose is matched to indication/reason for exam; i.e. extremities or head) *Use of iterative reconstruction technique DLP: 627 mGy-cm FINDINGS: There is generalized global volume loss. There is moderate prominence of the ventricles and the sulci . There is mild hypodensity of the periventricular white matter due to chronic small vessel ischemic disease. There are vascular calcifications of the internal carotid arteries bilaterally. No acute intracranial abnormality. There is no intracranial hemorrhage, hematoma, or extra-axial fluid collection. The ventricles are normal in size. There is no hydrocephalus, edema, or mass effect. The vásquez-white matter differentiation appears symmetric. There is no acute infarct or mass lesion. The calvarium appears intact. There is no pneumocephalus or orbital emphysema. The visualized sinuses and middle ears and mastoid air cells show no significant mucosal thickening. There are no air-fluid levels. CT/CT head for stroke IMPRESSION: No acute intracranial pathology. This critical result was discussed with Dr. Lara at 1741 hours on 08/03/2021. It was ascertained that the content and urgency of the report was understood at the time of direct communication.
--- NOTE | ~2021-08-03 | XR_ITS ---
EXAMINATION: XR CHEST CLINICAL INFORMATION: CVA. COMPARISON: Chest x-ray June 12, 2021. CT chest June 21, 2021 TECHNIQUE: Frontal portable view of the chest was obtained. 1840 hours FINDINGS: Lungs are clear. No pulmonary vascular congestion. There is no pleural effusion. The heart size is normal. The cardiac and mediastinal contours are normal. Dextroscoliosis of the thoracic spine. There are multilevel degenerative changes of dorsal spine. Orthopedic plate and screw at lower cervical spine is partially imaged. XR/XR chest 1V IMPRESSION: Unremarkable examination.
--- NOTE | 2021-08-03 17:22 | ECG_ITS ---
Test Reason : STROKE Blood Pressure : / mmHG Vent. Rate : 097 BPM Atrial Rate : 097 BPM P-R Int : 138 ms QRS Dur : 084 ms QT Int : 380 ms P-R-T Axes : 056 -31 -02 degrees QTc Int : 482 ms Normal sinus rhythm Left axis deviation Nonspecific ST and T wave abnormality Abnormal ECG When compared with ECG of 13-JUN-2021 09:33, QT has lengthened ST now depressed in Lateral leads Referred By: Carlos Gramajo Electronically Signed By:NADINE ALONSO
--- NOTE | 2021-08-03 17:25 | ED_ITS ---
HPI - Neuro Symptoms/Deficit General Chief Complaint: Stroke Stated Complaint: ?Stroke Time Seen by Provider: 08/03/21 17:22 Source: family Mode of arrival: wheelchair Limitations: no limitations History of Present Illness HPI Narrative: Patient is 75 years old with history of COPD on 81 mg aspirin daily brought by her for acute onset of difficulty speaking since 16:15 patient trying to speak but not able to make right words out no other weakness noticed. Patient never had similar complaint in the past patient able to ambulate without any significant weakness no headache no vomiting patient not on any anticoagulant Related Data Home Medications Medication Instructions Recorded Confirmed alprazolam 0.5 mg tablet (Xanax) 0.5 mg PO BEDTIME PRN 08/28/20 06/25/21 aspirin 81 mg tablet,delayed 81 mg PO DAILY 08/28/20 06/25/21 release atorvastatin 40 mg tablet 40 mg PO DAILY 08/28/20 08/03/21 escitalopram oxalate 10 mg tablet 10 mg PO DAILY 08/28/20 08/03/21 (Lexapro) famotidine 20 mg tablet (Pepcid) 20 mg PO BID 08/28/20 06/25/21 lactobacillus combination no.8 3 3,000 mmu cells PO DAILY 08/28/20 06/25/21 billion cell capsule (Adult Probiotic) prochlorperazine maleate 10 mg 10 mg PO Q8H PRN 08/28/20 06/25/21 tablet (Compazine) vitamin B complex (B 1 tab PO DAILY 08/28/20 06/25/21 Complex-Vitamin B12) zoledronic acid 5 mg/100 mL in IV 08/28/20 06/25/21 mannitol 5 %-water intravenous piggybck (Reclast) acetaminophen 500 mg tablet 1,000 mg PO Q6H PRN 02/08/21 06/25/21 (Tylenol Extra Strength) estradiol (Estrace) 1 g VAGINAL QWEEK 02/08/21 06/25/21 lifitegrast 5 % eye drops in a drp OPHTHALMIC (EYE) 02/27/21 06/25/21 dropperette levocetirizine 5 mg tablet 5 mg PO DAILY 06/12/21 08/03/21 Previous Rx's Medication Instructions Recorded fluticasone propionate 115 2 puff PO BID #12 g 01/16/21 mcg-salmeterol 21 mcg/actuation HFA inhaler (Advair HFA) gabapentin 100 mg capsule 100 mg PO BEDTIME #30 cap 02/14/21 cholecalciferol (vitamin D3) 25 25 mcg PO DAILY #90 cap 03/02/21 mcg (1,000 unit) capsule albuterol sulfate 2.5 mg INHALATION Q6H PRN 30 Days 05/29/21 #270 ml azithromycin 250 mg tablet 250 mg PO 3XW #12 tab 06/26/21 budesonide 0.5 mg/2 mL suspension 0.5 mg INHALATION BID 30 Days #120 06/26/21 for nebulization ml ipratropium 0.5 mg-albuterol 3 mg 3 ml INHALATION QID 30 Days #360 ml 06/26/21 (2.5 mg base)/3 mL nebulization soln cetirizine 10 mg capsule (Zyrtec) 10 mg PO DAILY 30 Days #30 cap 07/16/21 levalbuterol HCl 1.25 mg/3 mL 1.25 mg INHALATION BID 30 Days 07/16/21 solution for nebulization (Xopenex) #180 ml Allergies Allergy/AdvReac Type Severity Reaction Status Date / Time naproxen [From NAPROSYN] Allergy Severe sensitivity Verified 07/16/21 08:48 niacin Allergy Severe RASH Verified 07/16/21 08:48 [From NIASPAN EXTENDED-RELEASE] Penicillins [PENICILLINS] Allergy Severe ITCHING Verified 07/16/21 08:48 codeine [CODEINE] Allergy Mild ITCHING Verified 07/16/21 08:48 fluconazole [From DIFLUCAN] Allergy Mild sensitivity Verified 07/16/21 08:48 gatifloxacin [From TEQUIN] Allergy Mild sensitivity Verified 07/16/21 08:48 levofloxacin [From Levaquin] Allergy Mild sensitivity Verified 07/16/21 08:48 quinidine [QUINIDINE] Allergy Mild sensitivity Verified 07/16/21 08:48 Sulfa (Sulfonamide Allergy Mild RASH Verified 07/16/21 08:48 Antibiotics) [SULFA (SULFONAMIDE ANTIBIOTICS)] terfenadine [From SELDANE] Allergy Mild sensitivity Verified 07/16/21 08:48 tetracycline [TETRACYCLINE] Allergy Mild sensitivity Verified 07/16/21 08:48 cefaclor [From CECLOR] AdvReac Severe UNKNOWN Verified 07/16/21 08:48 clarithromycin [From BIAXIN] AdvReac Mild sensitivity Verified 07/16/21 08:48 topiramate [From TOPAMAX] AdvReac Mild STOMACH Verified 07/16/21 08:48 UPSET augmentin Allergy Mild sensitivity Uncoded 07/16/21 08:48 From NEXIUM Allergy Mild HIVES Uncoded 07/16/21 08:48 From PERCOCET Allergy Mild ITCHING Uncoded 07/16/21 08:48 From ULTRACET Allergy Mild RASH Uncoded 07/16/21 08:48 From VICODIN Allergy Mild RASH Uncoded 07/16/21 08:48 From LIPITOR AdvReac Mild HEADACHES Uncoded 07/16/21 08:48 From SINGULAIR AdvReac Mild HEADACHES Uncoded 07/16/21 08:48 Review of Systems Review of Systems: Yes all other systems are reviewed and are negative PMFSH Past Medical History Medical History COPD (chronic obstructive pulmonary disease) Cough Dyspnea GERD (gastroesophageal reflux disease) Microscopic hematuria Mycobacterial disease Osteoporosis Overactive bladder Pulmonary nodules Renal cyst URI (upper respiratory infection) Urinary urgency Surgical History History of surgery S/P cervical spinal fusion Family History Family History Son No problems noted. Social History Social History Alcohol intake: never Patient Tobacco Use Status: Never used Tobacco Use of substances other than those prescribed or required for medical reasons: No Advance Directives: Yes Advance Directives on File: Yes Advance Directives Date on File: 08/16/20 Physical Exam Vital Signs: Vital Signs: Last Vital Signs Temp 99.4 F 08/03/21 19:11 Pulse 88 08/03/21 19:20 Resp 24 H 08/03/21 19:20 BP 129/68 08/03/21 19:20 Pulse Ox 98 08/03/21 19:20 Body Mass Index 21.6 Appearance: Alert. Oriented X3. No acute distress. Eyes: PERRLA, No Nystagmus ENT: Pharynx normal. Oral Mucosa moist Neck: Normal inspection. Neck supple. CVS: Normal heart rate and rhythm. Pulses normal. Respiratory: No respiratory distress. Equal air entry bilateral, no wheezing/rales/rhonchi Abdomen: Soft and nontender. Bowel sounds are present, no mass palpable, no CVA tenderness Skin: Skin warm and dry. Normal skin color. Normal skin turgor. Extremities: No lower extremity edema. No calf tenderness Neuro: Oriented X 3. Expressive aphasia No motor deficit. No sensory deficit.No cerebellar signs , cranial nerves II-XII intact Course Reevaluation(s) Reevaluation #1: Patient's CT scan negative for any acute bleed still with expressive aphasia blood pressure 148/[address] Lester advised go for tPA will do CTA neck and plan for MRI Time: 17:33 Reevaluation #2: MRI showed small right cerebellar acute infarct admitted to the ICU Time: 20:37 MDM - Neuro Symptoms/Deficit MDM Narrative Medical decision making narrative: Patient has expressive aphasia CT head and CTA head and neck negative for any acute , case discussed Dr. Lester advised TPA, patient received tPA after tPA patient felt little better and then again had expressive aphasia articulation was normal patient does not remember who brought her to the hospital, what happened to her, had difficulty in getting the words out no focal deficit was noticed gone for MRI plan for admission to ICU for status postTPA Lab Data Attestation: I reviewed the patient's lab results. Result diagrams: 08/03/21 19:09 08/03/21 19:09 Labs: Lab Results 08/03/21 08/03/21 08/03/21 Range/Units 17:29 17:30 17:34 WBC 9.9 (4.8-10.8) X10*3/uL RBC 3.95 L (4.20-5.50) X10*6/uL Hgb 12.1 (12.0-16.0) g/dl Hct 36.1 L (37-47) % MCV 91.4 (80-98) fL MCH 30.6 (27.0-33.0) pg MCHC 33.5 (31.0-35.0) g/dl RDW 13.0 (11.0-16.0) % Plt Count 206 (160-400) X10*3/uL MPV 9.1 L (9.4-12.3) fL Immature Gran % (Auto) 0.3 (0.0-0.4) % Neut % (Auto) 63.7 (45-73) % Lymph % (Auto) 22.6 (20-40) % [place] % (Auto) 11.7 H (2-11) % Eos % (Auto) 1.5 (0-4) % Baso % (Auto) 0.2 (0-2) % Lymph # (Auto) 2.3 (1.2-4.9) X10*3/uL [place] # (Auto) 1.2 (0.1-1.2) X10*3/uL Eos # (Auto) 0.2 (0.0-0.4) X10*3/uL Baso # (Auto) 0.0 (0.0-0.2) X10*3/uL Abs Immat Gran (auto) 0.03 (0.00-0.03) X10*3/uL Absolute Neuts (auto) 6.3 (2.0-8.3) X10*3/uL Absolute Nucleated RBC 0.000 (0.0-0.012) X10*3/uL Nucleated RBC % (auto) 0.0 (0.0-0.2) /100WBC PT (9.9-13.0) SEC Whole Blood PT 14.1 H (11.1-13.5) sec INR (0.9-1.1) Whole Blood INR 1.2 H (0.9-1.1) Sodium (135-145) mmol/L Potassium (3.3-5.1) mmol/L Chloride (96-108) mmol/L Carbon Dioxide (22-29) mmol/L Anion Gap (12-20) BUN (9-16) mg/dL Creatinine (0.5-1.4) mg/dL Estim Creat Clear Calc Estimated GFR POC Glucose 117 H (60-115) mg/dL Random Glucose (60-115) mg/dL Calcium (8.4-10.2) mg/dL Troponin I High Sens (<3.5-17.0) ng/L 08/03/21 08/03/21 08/03/21 Range/Units 17:34 17:34 17:34 WBC (4.8-10.8) X10*3/uL RBC (4.20-5.50) X10*6/uL Hgb (12.0-16.0) g/dl Hct (37-47) % MCV (80-98) fL MCH (27.0-33.0) pg MCHC (31.0-35.0) g/dl RDW (11.0-16.0) % Plt Count (160-400) X10*3/uL MPV (9.4-12.3) fL Immature Gran % (Auto) (0.0-0.4) % Neut % (Auto) (45-73) % Lymph % (Auto) (20-40) % [place] % (Auto) (2-11) % Eos % (Auto) (0-4) % Baso % (Auto) (0-2) % Lymph # (Auto) (1.2-4.9) X10*3/uL [place] # (Auto) (0.1-1.2) X10*3/uL Eos # (Auto) (0.0-0.4) X10*3/uL Baso # (Auto) (0.0-0.2) X10*3/uL Abs Immat Gran (auto) (0.00-0.03) X10*3/uL Absolute Neuts (auto) (2.0-8.3) X10*3/uL Absolute Nucleated RBC (0.0-0.012) X10*3/uL Nucleated RBC % (auto) (0.0-0.2) /100WBC PT 13.5 H (9.9-13.0) SEC Whole Blood PT (11.1-13.5) sec INR 1.2 H (0.9-1.1) Whole Blood INR (0.9-1.1) Sodium 137 (135-145) mmol/L Potassium 3.8 (3.3-5.1) mmol/L Chloride 106 (96-108) mmol/L Carbon Dioxide 20 L (22-29) mmol/L Anion Gap 15 (12-20) BUN 11 (9-16) mg/dL Creatinine 0.77 (0.5-1.4) mg/dL Estim Creat Clear Calc 46.7 Estimated GFR > 60 POC Glucose (60-115) mg/dL Random Glucose 129 H (60-115) mg/dL Calcium 9.3 D (8.4-10.2) mg/dL Troponin I High Sens < 3.5 (<3.5-17.0) ng/L ECG Data Attestation: I personally reviewed and interpreted this ECG as follows: Interpretation: Normal sinus rhythm left axis deviation heart rate 97 beats per minute nonspecific ST T wave changes no acute ischemia NIH Stroke Scale Time: 17:24 Level of Consciousness: Alert Level of Consciousness Questions: Answers both questions correctly Level of Consciousness Commands: Performs both tasks correctly Best Gaze: Normal Visual: No visual loss Facial Palsy: Normal Motor Arm (Right): No drift Motor Arm (Left): No drift Motor Leg (Right): No drift Motor Leg (Left): No drift Limb Ataxia: Absent Sensory: Normal Best Language: Mild to moderate aphasia Dysarthia: Mild to moderate dysarthria Extinction and Inattention: No abnormality Score: 2 Discharge Plan Discharge Clinical Impression: Cerebrovascular accident Qualifiers: CVA mechanism: embolism Precerebral and cerebral artery: middle cerebral artery Laterality of affected vessel: right Qualified Code(s): I63.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
[2021-08-03 17:35] LABS: Prothrombin Time Whole Bld POC 14.1 sec (11.1-13.5); ~PT, ~INR - Anti Coag Clinic 1.2 (0.9-1.1)
[2021-08-03 17:36] LABS: Glucose, Whole Blood 117 mg/dL (60-115)
[2021-08-03 17:39] LABS: MANUAL DIFF FLAG NO
[2021-08-03 17:41] LABS: Basophils Percent Auto 0.2 % (0-2); Eosinophils Absolute Auto 0.2 X10*3/uL (0.0-0.4); Eosinophils Percent Auto 1.5 % (0-4); Hematocrit 36.1 % (37-47); Hemoglobin 12.1 g/dl (12.0-16.0); Imm Gran Abs Auto 0.03 X10*3/uL (0.00-0.03); Imm Gran Pct Auto 0.3 % (0.0-0.4); Lymphocytes Absolute Auto 2.3 X10*3/uL (1.2-4.9); Lymphocytes Percent Auto 22.6 % (20-40); Mean Corpuscular HGB Conc 33.5 g/dl (31.0-35.0); Mean Corpuscular Hemoglobin 30.6 pg (27.0-33.0); Mean Corpuscular Volume 91.4 fL (80-98); Mean Platelet Volume 9.1 fL (9.4-12.3); Monocytes Absolute Auto 1.2 X10*3/uL (0.1-1.2); Monocytes Percent Auto 11.7 % (2-11); Neutrophils Absolute Auto 6.3 X10*3/uL (2.0-8.3); Neutrophils Percent Auto 63.7 % (45-73); Platelet Count 206 X10*3/uL (160-400); Red Blood Count 3.95 X10*6/uL (4.20-5.50); White Blood Count 9.9 X10*3/uL (4.8-10.8)
[2021-08-03 17:48] LABS: INTERNATIONAL NORM RATIO 1.2 (0.9-1.1); Prothrombin Time 13.5 SEC (9.9-13.0)
[2021-08-03] MEDS: iohexoL 350 MG/ML 100 ML INFUS..BTL IV (17:52)
--- NOTE | 2021-08-03 17:52 | PC.NURSE ---
BOLUS OF 4.5ML GIVEN WHILE PT IN CT SCAN @ 2229
[2021-08-03 17:56] LABS: Anion Gap 15 (12-20); Blood Urea Nitrogen 11 mg/dL (9-16); Calcium 9.3 mg/dL (8.4-10.2); Carbon Dioxide 20 mmol/L (22-29); Chloride 106 mmol/L (96-108); Creatinine Clr Calc Pharmacy 46.7; Estimated Glomerular Filt Rate > 60; Glucose Random 129 mg/dL (60-115); Potassium 3.8 mmol/L (3.3-5.1); Sodium 137 mmol/L (135-145)
[2021-08-03 18:04] LABS: Troponin-I High Sensitivity < 3.5 ng/L (<3.5-17.0)
--- NOTE | 2021-08-03 18:34 | PC.NURSE ---
TPA VIAL FINISHED, SWITCHED TO NORMAL SALINE FOR FLUSHING AT THIS TIME.
--- NOTE | 2021-08-03 18:47 | PC.NURSE ---
PATIENT SPEAKING CLEAR SENTENCES AT THIS TIME. KNOW WHERE SHE IS, DATE, ORIENTED TO SELF. EXTREMITIES EQUAL STRENGTH AT THIS TIME. LEFT ARM DID SEEM TO BE WEAKER UPON ARRIVAL. LEFT FACE AT REST DOSE HAVE SLIGHT DROOP WELL EYE. SON AT BEDSIDE AND AGREES. PLAN FOR MRI AFTER TPA IS FINSHED FLUSHING. ADMISSION TO ICU. FAMILY AND PATIENT AWARE OF PLAN.
[2021-08-03 18:54] LABS: Stroke Lab Use COMPLETE
[2021-08-03 19:05] LABS: Glucose, Whole Blood 124 mg/dL (60-115)
[2021-08-03 19:13] LABS: MANUAL DIFF FLAG NO
[2021-08-03 19:14] LABS: Basophils Percent Auto 0.2 % (0-2); Eosinophils Absolute Auto 0.1 X10*3/uL (0.0-0.4); Eosinophils Percent Auto 0.5 % (0-4); Hematocrit 35.5 % (37-47); Hemoglobin 12.1 g/dl (12.0-16.0); Imm Gran Abs Auto 0.03 X10*3/uL (0.00-0.03); Imm Gran Pct Auto 0.3 % (0.0-0.4); Lymphocytes Absolute Auto 0.8 X10*3/uL (1.2-4.9); Lymphocytes Percent Auto 7.5 % (20-40); Mean Corpuscular HGB Conc 34.1 g/dl (31.0-35.0); Mean Corpuscular Hemoglobin 30.5 pg (27.0-33.0); Mean Corpuscular Volume 89.4 fL (80-98); Mean Platelet Volume 9.2 fL (9.4-12.3); Monocytes Percent Auto 9.1 % (2-11); Neutrophils Absolute Auto 9.1 X10*3/uL (2.0-8.3); Neutrophils Percent Auto 82.4 % (45-73); Platelet Count 202 X10*3/uL (160-400); Red Blood Count 3.97 X10*6/uL (4.20-5.50)
[2021-08-03 19:23] LABS: COVID-19 Test Negative (Negative); IDNOW Serial# 9DD0AD1C
[2021-08-03 19:35] LABS: Anion Gap 15 (12-20); Blood Urea Nitrogen 11 mg/dL (9-16); Carbon Dioxide 21 mmol/L (22-29); Chloride 105 mmol/L (96-108); Cholesterol 133 mg/dL; Estimated Glomerular Filt Rate > 60; Glucose Random 133 mg/dL (60-115); HDL Cholesterol 59 mg/dL; LDL Cholesterol Calculated 60 mg/dl; Potassium 3.7 mmol/L (3.3-5.1); Sodium 137 mmol/L (135-145); Triglycerides 72 mg/dL
--- NOTE | 2021-08-03 21:45 | PHA.MEDREC ---
Pharmacy Consult ? Medication Reconciliation Med Rec consult not ordered by ED physician. Patient was then in MRI and being transferred to ICU. I was able to get a hold of the patients , Augie, before leaving but he was unsure of all of the medications and recommended to speak with the patient tomorrow am. Pharmacy to follow up in AM.
[2021-08-03 22:10] LABS: Glucose, Whole Blood 131 mg/dL (60-115)
--- NOTE | 2021-08-03 22:35 | P.HPCC_ITS ---
History of Present Illness Date of Service: 08/03/21 Attending physician on admission: Ned Mitchell Chief Complaint: ischemic Stroke post tpa HPI: ?This patient was 75-year-old female with prior history of ocular migraines, hyperlipidemia, secondhand smoking related COPD, renal cyst, cervical spondylosis status post fusion., polyarthralgia, and GERD, pulmonary nodules (followed by Dr. Lino); who presented to the emergency room this afternoon around 5:37 p.m. as her brought her in given the concern of stroke-like symptoms.? There was no concern of weakness, patient reports no headache, visual disturbance, numbness or tingling of the upper lower extremities. According to the around 4:00 p.m. they were on their way to [facility] and about 15 minutes later the patient started to develop trouble speaking, I seem like she had trouble pronouncing words and also getting her words out, he immediately drove her to the hospital.? On arrival, the patient was found to be normotensive and to have expressive aphasia, stroke protocol was activated, initial head CT showed no hemorrhage or other signs of acute stroke, Neurology was consulted and the patient receive tPA within 15 minutes of arrival, follow- up CT angiogram of the head and neck showed no significant stenosis or vessel occlusion.? Severe left maxillary sinus disease and at the men's degenerative changes of the right temporomandibular joint. ER her laboratory workup revealed white count 11.0, H&H of 12.1 in 35 respectively, platelet of 202, no electrolyte abnormality on the chemistry panel, intact renal function.? LDL cholesterol of 60 troponin less than 3.5, random glucose 133, COVID negative. It is thought that the patient's speech improved slightly after tPA administr ation but according to family they were concerned that her symptoms had come back to their initial state. ?During my interview and exam, the patient has right facial droop with intermittent episodes of dysarthria and expressive aphasia however family and the patient herself recognize that her symptoms are much better and her ability to speak has improved significantly at this time which is about an hour and half after tPA administration.? Currently patient has no complaints. ROS:? Denies headache, no visual changes, lightheadedness or dizziness, no history of seizures or prior strokes, no history of eye or ear problems, no sore throat, cough or sputum production, denies shortness of breath, denies chest pain, palpitations, no coronary disease, no cough, no hemoptysis, denies any melena, hematochezia, liver or kidney problems, no dysuria, hematuria, no leg swelling, no history of DVT or PE.? She has no travel and has not been contact with anybody with? COVID.? All other review of systems negative. Past Medical History: ?As above Past Surgical History:? As above Family history: ?Noncontributory Social History:? Lives at home with her , does not use any assistive devices, she has never smoked but is being exposed to secondhand smoking by her parents and has been.? No alcohol or drug history. CODE STATUS:? Full code Allergies: ?Multiple which appear to be mostly secondary effects rather than reaction, please see med rec as the list is extensive Home Medications:? Please see med rec PHYSICAL EXAM:VS: ?BP 129/68; HR 87; RR 24; O2 Sat 98 % RA General:? Alert oriented x3 no acute distress.? Speaking full sentences in an intermittent way as she has some residual dysarthria and intermittent expressive aphasia. Speech is not well articulated, thought process is coherent, she has good recollection of the events.? Following all commands in a very concise way. Skin:? Intact, no lesions, edema, erythema, clubbing or cyanosis.? No ulcers. HEENT:? Head is normocephalic, atraumatic, pupils equal round reactive to light accommodation bilaterally.? Extraocular movements appear intact.? R nasolabial fold droop. Buccal mucosa is moist, tongue protrudes midline with tip deviation to the left. Neck is supple without lymphadenopathy. Cardiac:? Clear S1-S2, no murmurs rubs or gallops. Pulmonary:? Clear to auscultation, no wheezes, rales or rhonchi. Abdomen:? Protuberant, positive bowel sounds in all 4 quadrants.? Soft, non- tender, no rebound or guarding.? Musculoskeletal:? No pronator drift, Moving all 4 extremities upon request a major joints, there is no crepitus or tenderness.? The strength is 5/5 bilaterally and throughout all 4 extremities.? There is no leg edema , no calf tenderness , no leg asymmetry.? Gait not assessed at this point. Neurologic:? As above, cranial nerves 2-12 are grossly intact with except of the above in regards to facial nerve No focal deficits noted. [id number] test intact, other alternating movements are intact and toe is low. Heel to rivers bilaterally is normal. Romberg test not assessed. Motor strength as above.? Vascular:? 2+ pulses upper and lower extremities distally. SIGNIFICANT LABORATORY DATA:? As above REVIEW OF IMAGES: ? As above for dry head CT and CTA of the head and neck. Brain MRI impression: Small acute infarct in the right cerebellar hemisphere. EKG REVIEW: ?On sinus rhythm, 97 beats per minute.? Nonspecific ST depressions limb noted on the lateral leads with T-wave inversions on V5.? QT 380. ASSESSMENT AND PLAN: 1. Acute Ischemic Cerebellar Stroke 2. Permissible hypertension 3. History of hyperlipidemia 4. Dysarthria and concern of dysphagia due to 1. 5. Chronic COPD without exacerbation 6. Reactive Leukocytosis 7. Hx GERD 8. Nonspecific EKG changes without symptomatology and negative troponin Admit, monitor VS, neuro check, cardiac monitoring, NPO, formal swallow and speech eval, PT and OT eval; ? statin, ECHO, no ASA products; permissible hypertension, at this point she does no need any nebulizers.? Neuro consult in the morning; ?repeat head CT later tomorrow. GI PROPHYLAXIS: IV PPI DVT PROPHYLAXIS: post TpA pneumatic stocks Critical care time used for critical evaluation of this patient, diagnosis, treatment and coordination of care, review her records and documentation TOTAL CRITICAL CARE TIME 90 MIN . Patient's care was discussed in detail with Dr. Mitchell.? He is aware of all the above as well as the plan of care for this patient. [facility] Past Medical History Medical History COPD (chronic obstructive pulmonary disease) Cough Dyspnea GERD (gastroesophageal reflux disease) Microscopic hematuria Mycobacterial disease Osteoporosis Overactive bladder Pulmonary nodules Renal cyst URI (upper respiratory infection) Urinary urgency Family History Family History Son No problems noted. Surgical History Surgical History History of surgery S/P cervical spinal fusion Social History Social History Household Members: Spouse Housing: Condominium Do you presently have visiting nurse or other home services: No Alcohol intake: never Patient Tobacco Use Status: Never used Tobacco Second Hand Smoke Exposure: Yes Use of substances other than those prescribed or required for medical reasons: No Currently Displaying Signs/Symptoms of Drug Intoxication Withdrawal: No Have you been hit, kicked, punched, or otherwise hurt by someone within the past year? If so, by whom?: No Do you feel safe in your current relationship?: Yes Is there a partner from a previous relationship who is making you feel unsafe now?: No Are you made to feel afraid or neglected: No Advance Directives: Yes Advance Directives on File: Yes Advance Directives Date on File: 08/16/20 Do you have thoughts of harming others: None Do you have a plan to hurt others: No Plan Recently lost weight without trying: No Eating poorly because of decreased appetite: No Nutrition Risks: No Nutritional Risk Patient : No : No Poor oral hygiene: No service: No Current occupational status: retired [employer] Allergies Allergy/AdvReac Type Severity Reaction Status Date / Time naproxen [From NAPROSYN] Allergy Severe sensitivity Verified 07/16/21 08:48 niacin Allergy Severe RASH Verified 07/16/21 08:48 [From NIASPAN EXTENDED-RELEASE] Penicillins [PENICILLINS] Allergy Severe ITCHING Verified 07/16/21 08:48 codeine [CODEINE] Allergy Mild ITCHING Verified 07/16/21 08:48 fluconazole [From DIFLUCAN] Allergy Mild sensitivity Verified 07/16/21 08:48 gatifloxacin [From TEQUIN] Allergy Mild sensitivity Verified 07/16/21 08:48 levofloxacin [From Levaquin] Allergy Mild sensitivity Verified 07/16/21 08:48 quinidine [QUINIDINE] Allergy Mild sensitivity Verified 07/16/21 08:48 Sulfa (Sulfonamide Allergy Mild RASH Verified 07/16/21 08:48 Antibiotics) [SULFA (SULFONAMIDE ANTIBIOTICS)] terfenadine [From SELDANE] Allergy Mild sensitivity Verified 07/16/21 08:48 tetracycline [TETRACYCLINE] Allergy Mild sensitivity Verified 07/16/21 08:48 cefaclor [From CECLOR] AdvReac Severe UNKNOWN Verified 07/16/21 08:48 clarithromycin [From BIAXIN] AdvReac Mild sensitivity Verified 07/16/21 08:48 topiramate [From TOPAMAX] AdvReac Mild STOMACH Verified 07/16/21 08:48 UPSET augmentin Allergy Mild sensitivity Uncoded 07/16/21 08:48 From NEXIUM Allergy Mild HIVES Uncoded 07/16/21 08:48 From PERCOCET Allergy Mild ITCHING Uncoded 07/16/21 08:48 From ULTRACET Allergy Mild RASH Uncoded 07/16/21 08:48 From VICODIN Allergy Mild RASH Uncoded 07/16/21 08:48 From LIPITOR AdvReac Mild HEADACHES Uncoded 07/16/21 08:48 From SINGULAIR AdvReac Mild HEADACHES Uncoded 07/16/21 08:48 Active Medications: Current Medications Ondansetron HCl (Ondansetron Hcl 4 Mg/2 Ml Vial) 4 mg IVPUSH Q8H PRN PRN Reason: Nausea and Vomiting Pharmacy Consult (Consult Rx Perform Med Rec) 1 each MISCELLANE ONCE PRN PRN Reason: Consult order Sodium Chloride (0.9 % Sodium Chloride Flush 3 Ml Syringe) 3 ml IVFLUSH [facility] Medications Medication Instructions Recorded Confirmed Last Taken Type alprazolam 0.5 mg tablet (Xanax) 0.5 mg PO BID PRN 08/28/20 08/04/21 Unknown History aspirin 81 mg tablet,delayed 81 mg PO DAILY 08/28/20 08/04/21 Unknown History release atorvastatin 40 mg tablet 40 mg PO DAILY 08/28/20 08/04/21 Unknown History escitalopram oxalate 10 mg tablet 10 mg PO DAILY 08/28/20 08/04/21 Unknown History (Lexapro) prochlorperazine maleate 10 mg 10 mg PO Q8H PRN 08/28/20 08/04/21 Unknown History tablet (Compazine) vitamin B complex (B 1 tab PO DAILY 08/28/20 08/04/21 Unknown History Complex-Vitamin B12) levocetirizine 5 mg tablet 5 mg PO DAILY 06/12/21 08/04/21 Unknown History Physical Exam Vital Signs: Vital Signs: Last Vital Signs Temp 99.3 F 08/03/21 20:31 Pulse 105 H 08/03/21 22:31 Resp 21 H 08/03/21 22:02 BP 120/62 08/03/21 22:31 Pulse Ox 95 08/03/21 22:31 Body Mass Index 21.2 Results Labs CBC and Chem 7: 08/04/21 05:27 08/04/21 05:27 Labs: Laboratory Results - last 24 hr 08/03/21 08/03/21 08/03/21 17:29 17:30 17:34 MCV 91.4 MCH 30.6 MCHC 33.5 RDW 13.0 Plt Count 206 MPV 9.1 L Immature Gran % (Auto) 0.3 Neut % (Auto) 63.7 Lymph % (Auto) 22.6 [place] % (Auto) 11.7 H Eos % (Auto) 1.5 Baso % (Auto) 0.2 Lymph # (Auto) 2.3 [place] # (Auto) 1.2 Eos # (Auto) 0.2 Baso # (Auto) 0.0 Abs Immat Gran (auto) 0.03 Absolute Neuts (auto) 6.3 Absolute Nucleated RBC 0.000 Nucleated RBC % (auto) 0.0 PT Whole Blood PT 14.1 H INR Whole Blood INR 1.2 H Anion Gap Estim Creat Clear Calc Estimated GFR POC Glucose 117 H Random Glucose Calcium Troponin I High Sens Triglycerides Cholesterol LDL Cholesterol, Calc HDL Cholesterol Hold Red Top COVID-19 ([facility]I) COVID-[employer] 08/03/21 08/03/21 08/03/21 17:34 17:34 17:34 MCV MCH MCHC RDW Plt Count MPV Immature Gran % (Auto) Neut % (Auto) Lymph % (Auto) [place] % (Auto) Eos % (Auto) Baso % (Auto) Lymph # (Auto) [place] # (Auto) Eos # (Auto) Baso # (Auto) Abs Immat Gran (auto) Absolute Neuts (auto) Absolute Nucleated RBC Nucleated RBC % (auto) PT 13.5 H Whole Blood PT INR 1.2 H Whole Blood INR Anion Gap 15 Estim Creat Clear Calc 46.7 Estimated GFR > 60 POC Glucose Random Glucose 129 H Calcium 9.3 D Troponin I High Sens < 3.5 Triglycerides Cholesterol LDL Cholesterol, Calc HDL Cholesterol Hold Red Top COVID-19 ([facility]) COVID-[employer] 08/03/21 08/03/21 08/03/21 18:58 18:59 19:09 MCV MCH MCHC RDW Plt Count MPV Immature Gran % (Auto) Neut % (Auto) Lymph % (Auto) [place] % (Auto) Eos % (Auto) Baso % (Auto) Lymph # (Auto) [place] # (Auto) Eos # (Auto) Baso # (Auto) Abs Immat Gran (auto) Absolute Neuts (auto) Absolute Nucleated RBC Nucleated RBC % (auto) PT Whole Blood PT INR Whole Blood INR Anion Gap Estim Creat Clear Calc Estimated GFR POC Glucose 124 H Random Glucose Calcium Troponin I High Sens Triglycerides Cholesterol LDL Cholesterol, Calc HDL Cholesterol Hold Red Top See Note COVID-19 ([facility]) Negative COVID-19 Clin Com See Note 08/03/21 08/03/21 08/03/21 19:09 19:09 22:03 MCV 89.4 MCH 30.5 MCHC 34.1 RDW 13.0 Plt Count 202 MPV 9.2 L Immature Gran % (Auto) 0.3 Neut % (Auto) 82.4 H Lymph % (Auto) 7.5 L [place] % (Auto) 9.1 Eos % (Auto) 0.5 Baso % (Auto) 0.2 Lymph # (Auto) 0.8 L [place] # (Auto) 1.0 Eos # (Auto) 0.1 Baso # (Auto) 0.0 Abs Immat Gran (auto) 0.03 Absolute Neuts (auto) 9.1 H Absolute Nucleated RBC 0.000 Nucleated RBC % (auto) 0.0 PT Whole Blood PT INR Whole Blood INR Anion Gap 15 Estim Creat Clear Calc 50.0 Estimated GFR > 60 POC Glucose 131 H Random Glucose 133 H Calcium 9.0 Troponin I High Sens Triglycerides 72 Cholesterol 133 LDL Cholesterol, Calc 60 HDL Cholesterol 59 Hold Red Top COVID-19 ([facility]I) COVID-19 Clin Com Imaging Radiologist's Impressions: Impressions Chest X-Ray 08/03/21 17:22 IMPRESSION: Unremarkable examination. Head CT 08/03/21 17:22 IMPRESSION: No acute intracranial pathology. This critical result was discussed with Dr. Lara at 1741 hours on 08/03/2021. It was ascertained that the content and urgency of the report was understood at the time of direct communication. Head/Neck CTA 08/03/21 17:23 IMPRESSION: Relatively normal CT angiogram of the head and neck. No significant stenosis or vessel occlusion. Severe left maxillary sinus disease. Advanced degenerative changes of the right temporomandibular joint. Imaging findings reported to Dr. Lara at 6:15 PM on 08/03/2021. Brain MRI 08/03/21 17:48 IMPRESSION: Small acute infarct in the right cerebellar hemisphere.
[2021-08-03] MEDS: 0.9 % Sodium Chloride Flush 3 ML SYRINGE IVFLUSH (23:26)
[2021-08-04] VITALS (28 sets, daily range): BP systolic 116–146; BP diastolic 44–86; PULSE 69–105; RESP 12–29; TEMP 36.6–37.4; O2SAT 93–99; BMI 21.3
[2021-08-04] MEDS: Acetaminophen Supp 650 MG SUPP.RECT PR (00:41)
--- NOTE | 2021-08-04 04:12 | PC.NURSE ---
Patient arrived to ICU at 2030. Patient with expressive aphasia, dysarthria, tongue with left deviation and right sided facial droop. Patient was able to follow all commands, had difficulty answering questions related to aphasia. No deficits noted to bilateral lower and upper extremities. Patient with no complaints of headache, numbness or tingling upon initial assessment. History was obtained from and son. Patient with clearing of her speech throughout the shift and improved ability to answer questions. Patient with headache, PA notified and acetaminophen suppository administered. Patient with relief of symptoms.
[2021-08-04 05:32] LABS: MANUAL DIFF FLAG NO
[2021-08-04 05:34] LABS: Basophils Percent Auto 0.4 % (0-2); Eosinophils Absolute Auto 0.1 X10*3/uL (0.0-0.4); Eosinophils Percent Auto 0.8 % (0-4); Hematocrit 34.4 % (37-47); Hemoglobin 11.8 g/dl (12.0-16.0); Imm Gran Abs Auto 0.02 X10*3/uL (0.00-0.03); Imm Gran Pct Auto 0.3 % (0.0-0.4); Lymphocytes Absolute Auto 1.4 X10*3/uL (1.2-4.9); Lymphocytes Percent Auto 18.8 % (20-40); Mean Corpuscular HGB Conc 34.3 g/dl (31.0-35.0); Mean Corpuscular Hemoglobin 30.9 pg (27.0-33.0); Mean Corpuscular Volume 90.1 fL (80-98); Mean Platelet Volume 9.2 fL (9.4-12.3); Monocytes Absolute Auto 0.9 X10*3/uL (0.1-1.2); Monocytes Percent Auto 11.6 % (2-11); Neutrophils Absolute Auto 5.2 X10*3/uL (2.0-8.3); Neutrophils Percent Auto 68.1 % (45-73); Platelet Count 196 X10*3/uL (160-400); Red Blood Count 3.82 X10*6/uL (4.20-5.50); White Blood Count 7.6 X10*3/uL (4.8-10.8)
[2021-08-04] MEDS: Pantoprazole Sodium 40 MG/10 ML VIAL IVPUSH (05:48)
[2021-08-04 05:55] LABS: Alanine Aminotransferase 7 U/L (0-31); Albumin Level 3.7 g/dL (3.5-5.0); Alkaline Phosphatase 68 U/L (39-117); Anion Gap 14 (12-20); Aspartate Amino Transferase 20 U/L (5-31); Blood Urea Nitrogen 8 mg/dL (9-16); Calcium 8.6 mg/dL (8.4-10.2); Carbon Dioxide 20 mmol/L (22-29); Chloride 108 mmol/L (96-108); Creatinine Clr Calc Pharmacy 54.5; Estimated Glomerular Filt Rate > 60; Glucose Random 106 mg/dL (60-115); Potassium 3.5 mmol/L (3.3-5.1); Sodium 138 mmol/L (135-145); Total Protein 5.6 g/dL (6.5-8.0)
[2021-08-04 05:56] LABS: Troponin-I High Sensitivity 7.9 ng/L (<3.5-17.0)
[2021-08-04 07:35] LABS: Glucose, Whole Blood 103 mg/dL (60-115)
[2021-08-04] MEDS: Lactated Ringers 1,000 ML 150 ML IVCONT ×2 (09:24→18:33)
[2021-08-04 11:39] LABS: Glucose, Whole Blood 100 mg/dL (60-115)
--- NOTE | 2021-08-04 11:55 | P.PNCC_ITS ---
Subjective Subjective Date of Service: 08/04/21 Interval History: 75-year-old lady with underlying history of ocular migraine, hyperlipidemia secondhand COPD, renal cyst admitted on 08/03/2021 with an acute CVA symptomatic with dysarthria. Patient has received tPA in ER with improvement in her symptoms. She has been admitted to intensive care unit for post tPA monitoring. Critical Care Time (minutes): 0 Physical Exam Vital Signs: Vital Signs: Last Vital Signs Temp 98 F 08/04/21 08:00 Pulse 73 08/04/21 10:00 Resp 19 08/04/21 10:00 BP 142/53 H 08/04/21 10:00 Pulse Ox 95 08/04/21 10:00 Body Mass Index 21.3 Const: General: no acute distress, alert and awake Orientation/consciousness: oriented to person, oriented to place and oriented to time Eyes: Sclerae: sclerae normal EOM: EOMs intact bilaterally Neck: Neck: Yes no lymphadenopathy, Yes trachea midline and Yes supple Resp: Effort & Inspection: normal respiratory effort and no respiratory distress Auscultation: clear to auscultation bilaterally Cardio: Rate: regular rate Rhythm: regular rhythm Heart sounds: no gallops, no murmurs and no rubs GI: Palpation (GI): Soft to palpation and Other GI palpation findings present ( Nontender) Auscultation: normal bowel sounds Neuro: General: oriented to person, oriented to place and oriented to time Cranial nerves: Yes Other cranial nerve findings present (Tongue deviates to the left slightly, neck flexion left 4/5, right 5/5) Speech: Other speech findings present (Neuro) (Slight expressive aphasia) Motor exam (neuro): Other motor observations present (Monitor right-sided 5/5, left upper extremity 4/5, left lower extremity 5/5) Extrem: General: Yes no pedal edema, No clubbing and No cyanosis Objective Data Labs CBC & Chem 7: 08/04/21 05:27 08/04/21 05:27 Labs: Laboratory Results - last 24 hr 08/03/21 08/03/21 08/03/21 17:29 17:30 17:34 WBC 9.9 RBC 3.95 L Hgb 12.1 Hct 36.1 L MCV 91.4 MCH 30.6 MCHC 33.5 RDW 13.0 Plt Count 206 MPV 9.1 L Immature Gran % (Auto) 0.3 Neut % (Auto) 63.7 Lymph % (Auto) 22.6 [place] % (Auto) 11.7 H Eos % (Auto) 1.5 Baso % (Auto) 0.2 Lymph # (Auto) 2.3 [place] # (Auto) 1.2 Eos # (Auto) 0.2 Baso # (Auto) 0.0 Abs Immat Gran (auto) 0.03 Absolute Neuts (auto) 6.3 Absolute Nucleated RBC 0.000 Nucleated RBC % (auto) 0.0 PT Whole Blood PT 14.1 H INR Whole Blood INR 1.2 H Sodium Potassium Chloride Carbon Dioxide Anion Gap BUN Creatinine Estim Creat Clear Calc Estimated GFR POC Glucose 117 H Random Glucose Calcium Total Bilirubin AST ALT Alkaline Phosphatase Troponin I High Sens Total Protein Albumin Triglycerides Cholesterol LDL Cholesterol, Calc HDL Cholesterol Hold Red Top COVID-19 ([facility]I) COVID-19 [employer] 08/03/21 08/03/21 08/03/21 17:34 17:34 17:34 WBC RBC Hgb Hct MCV MCH MCHC RDW Plt Count MPV Immature Gran % (Auto) Neut % (Auto) Lymph % (Auto) [place] % (Auto) Eos % (Auto) Baso % (Auto) Lymph # (Auto) [place] # (Auto) Eos # (Auto) Baso # (Auto) Abs Immat Gran (auto) Absolute Neuts (auto) Absolute Nucleated RBC Nucleated RBC % (auto) PT 13.5 H Whole Blood PT INR 1.2 H Whole Blood INR Sodium 137 Potassium 3.8 Chloride 106 Carbon Dioxide 20 L Anion Gap 15 BUN 11 Creatinine 0.77 Estim Creat Clear Calc 46.7 Estimated GFR > 60 POC Glucose Random Glucose 129 H Calcium 9.3 D Total Bilirubin AST ALT Alkaline Phosphatase Troponin I High Sens < 3.5 Total Protein Albumin Triglycerides Cholesterol LDL Cholesterol, Calc HDL Cholesterol Hold Red Top COVID-19 ([facility]I) COVID-19 [employer] 08/03/21 08/03/21 08/03/21 18:58 18:59 19:09 WBC RBC Hgb Hct MCV MCH MCHC RDW Plt Count MPV Immature Gran % (Auto) Neut % (Auto) Lymph % (Auto) [place] % (Auto) Eos % (Auto) Baso % (Auto) Lymph # (Auto) [place] # (Auto) Eos # (Auto) Baso # (Auto) Abs Immat Gran (auto) Absolute Neuts (auto) Absolute Nucleated RBC Nucleated RBC % (auto) PT Whole Blood PT INR Whole Blood INR Sodium Potassium Chloride Carbon Dioxide Anion Gap BUN Creatinine Estim Creat Clear Calc Estimated GFR POC Glucose 124 H Random Glucose Calcium Total Bilirubin AST ALT Alkaline Phosphatase Troponin I High Sens Total Protein Albumin Triglycerides Cholesterol LDL Cholesterol, Calc HDL Cholesterol Hold Red Top See Note COVID-19 ([facility]ERI) Negative COVID-19 Clin Com See Note 08/03/21 08/03/21 08/03/21 19:09 19:09 22:03 WBC 11.0 H RBC 3.97 L Hgb 12.1 Hct 35.5 L MCV 89.4 MCH 30.5 MCHC 34.1 RDW 13.0 Plt Count 202 MPV 9.2 L Immature Gran % (Auto) 0.3 Neut % (Auto) 82.4 H Lymph % (Auto) 7.5 L [place] % (Auto) 9.1 Eos % (Auto) 0.5 Baso % (Auto) 0.2 Lymph # (Auto) 0.8 L [place] # (Auto) 1.0 Eos # (Auto) 0.1 Baso # (Auto) 0.0 Abs Immat Gran (auto) 0.03 Absolute Neuts (auto) 9.1 H Absolute Nucleated RBC 0.000 Nucleated RBC % (auto) 0.0 PT Whole Blood PT INR Whole Blood INR Sodium 137 Potassium 3.7 Chloride 105 Carbon Dioxide 21 L Anion Gap 15 BUN 11 Creatinine 0.72 Estim Creat Clear Calc 50.0 Estimated GFR > 60 POC Glucose 131 H Random Glucose 133 H Calcium 9.0 Total Bilirubin AST ALT Alkaline Phosphatase Troponin I High Sens Total Protein Albumin Triglycerides 72 Cholesterol 133 LDL Cholesterol, Calc 60 HDL Cholesterol 59 Hold Red Top COVID-19 ([facility]ERI) COVID-19 Clin Com 08/04/21 08/04/21 08/04/21 05:27 05:27 05:27 WBC 7.6 RBC 3.82 L Hgb 11.8 L Hct 34.4 L MCV 90.1 MCH 30.9 MCHC 34.3 RDW 13.0 Plt Count 196 MPV 9.2 L Immature Gran % (Auto) 0.3 Neut % (Auto) 68.1 Lymph % (Auto) 18.8 L [place] % (Auto) 11.6 H Eos % (Auto) 0.8 Baso % (Auto) 0.4 Lymph # (Auto) 1.4 [place] # (Auto) 0.9 Eos # (Auto) 0.1 Baso # (Auto) 0.0 Abs Immat Gran (auto) 0.02 Absolute Neuts (auto) 5.2 Absolute Nucleated RBC 0.000 Nucleated RBC % (auto) 0.0 PT Whole Blood PT INR Whole Blood INR Sodium 138 Potassium 3.5 Chloride 108 Carbon Dioxide 20 L Anion Gap 14 BUN 8 L Creatinine 0.66 Estim Creat Clear Calc 54.5 Estimated GFR > 60 POC Glucose Random Glucose 106 Calcium 8.6 Total Bilirubin 1.0 AST 20 ALT 7 Alkaline Phosphatase 68 Troponin I High Sens 7.9 D Total Protein 5.6 L Albumin 3.7 Triglycerides Cholesterol LDL Cholesterol, Calc HDL Cholesterol Hold Red Top COVID-19 ([facility]ERI) [id number] 08/04/21 08/04/21 07:24 11:28 WBC RBC Hgb Hct MCV MCH MCHC RDW Plt Count MPV Immature Gran % (Auto) Neut % (Auto) Lymph % (Auto) [place] % (Auto) Eos % (Auto) Baso % (Auto) Lymph # (Auto) [place] # (Auto) Eos # (Auto) Baso # (Auto) Abs Immat Gran (auto) Absolute Neuts (auto) Absolute Nucleated RBC Nucleated RBC % (auto) PT Whole Blood PT INR Whole Blood INR Sodium Potassium Chloride Carbon Dioxide Anion Gap BUN Creatinine Estim Creat Clear Calc Estimated GFR POC Glucose 103 100 Random Glucose Calcium Total Bilirubin AST ALT Alkaline Phosphatase Troponin I High Sens Total Protein Albumin Triglycerides Cholesterol LDL Cholesterol, Calc HDL Cholesterol Hold Red Top COVID-19 (SHERI) [id number] Quality Stroke Does the patient have a stroke diagnosis?: Yes Reason for No Anti-thrombotic by Day Two: N/A - Med Ordered VTE Prior VTE?: No VTE Risk Level:: Medical - moderate - high VTE Device Contraindication: N/A - Device Ordered VTE Drug Contraindication: Treatment Not Indicated Progress Note: A&P Assessment and plan (1) Cerebrovascular accident: Status: Acute Assessment and Plan: Assessment: 75-year-old lady admitted with dysarthria secondary to acute right- sided CVA, status post tPA Plan: Neuro: Acute right MCA CVA status post tPA, aphasia improved significantly, still mild expressive aphasia present. Speech speech and swallow, PT, OT evaluations are pending. Repeat CT head is pending. Echo is pending. No evidence of carotid stenosis on CTA Cardiac: No acute issues. Pulmonary: No acute issues. Underlying history of COPD. Renal: No acute issues. Endo: No acute issues. GI: No acute issues. ID: No acute issues Heme/Onc: No acute issues. Psych: No acute issues. Miscellaneous: No acute issues. Prophylaxis: Pneumatic compression Diet: Pending swallow evaluation
--- NOTE | 2021-08-04 12:30 | PM.NEUROCN ---
History of Present Illness Data of Consult Service Date: 08/04/21 Primary Care Provider: Jennifer Sylvester MD HPI Reason for consult: Stroke 75 yo woman who probably has underlying HTN and HLD, stopped taking aspirin on her own a few months ago, not following a PCP after her previous PCP retired, was in a coffee shop counter when she tried to say something and could not; words were not coming out. She walked back to her car and her drove her home. THere was no obvious weakness or confusion. From home in [facility], she was driven back to [facility] ER for a possible stroke. As per ER MD last night, she still had some difficulty speaking when seen. OTherwise exam was non focal. She was treated with ivtPA for suspected ischemic stroke. Now she was doing fine with back to baseline. Review of Systems Review of Systems: No recent cold or flu like illness, or headache or any cardiac symptom PMFSH Past Medical History Medical History COPD (chronic obstructive pulmonary disease) Cough Dyspnea GERD (gastroesophageal reflux disease) Microscopic hematuria Mycobacterial disease Osteoporosis Overactive bladder Pulmonary nodules Renal cyst URI (upper respiratory infection) Urinary urgency Family History Family History Son No problems noted. Surgical History Surgical History History of surgery S/P cervical spinal fusion Social History Social History Household Members: Spouse Housing: Condominium Do you presently have visiting nurse or other home services: No Alcohol intake: never Patient Tobacco Use Status: Never used Tobacco Second Hand Smoke Exposure: Yes Use of substances other than those prescribed or required for medical reasons: No Currently Displaying Signs/Symptoms of Drug Intoxication Withdrawal: No Have you been hit, kicked, punched, or otherwise hurt by someone within the past year? If so, by whom?: No Do you feel safe in your current relationship?: Yes Is there a partner from a previous relationship who is making you feel unsafe now?: No Are you made to feel afraid or neglected: No Advance Directives: Yes Advance Directives on File: Yes Advance Directives Date on File: 08/16/20 Do you have thoughts of harming others: None Do you have a plan to hurt others: No Plan Recently lost weight without trying: No Eating poorly because of decreased appetite: No Nutrition Risks: No Nutritional Risk Patient : No : No Poor oral hygiene: No Meds Allergies Allergy/AdvReac Type Severity Reaction Status Date / Time naproxen [From NAPROSYN] Allergy Severe sensitivity Verified 07/16/21 08:48 niacin Allergy Severe RASH Verified 07/16/21 08:48 [From NIASPAN EXTENDED-RELEASE] Penicillins [PENICILLINS] Allergy Severe ITCHING Verified 07/16/21 08:48 codeine [CODEINE] Allergy Mild ITCHING Verified 07/16/21 08:48 fluconazole [From DIFLUCAN] Allergy Mild sensitivity Verified 07/16/21 08:48 gatifloxacin [From TEQUIN] Allergy Mild sensitivity Verified 07/16/21 08:48 levofloxacin [From Levaquin] Allergy Mild sensitivity Verified 07/16/21 08:48 quinidine [QUINIDINE] Allergy Mild sensitivity Verified 07/16/21 08:48 Sulfa (Sulfonamide Allergy Mild RASH Verified 07/16/21 08:48 Antibiotics) [SULFA (SULFONAMIDE ANTIBIOTICS)] terfenadine [From SELDANE] Allergy Mild sensitivity Verified 07/16/21 08:48 tetracycline [TETRACYCLINE] Allergy Mild sensitivity Verified 07/16/21 08:48 cefaclor [From CECLOR] AdvReac Severe UNKNOWN Verified 07/16/21 08:48 clarithromycin [From BIAXIN] AdvReac Mild sensitivity Verified 07/16/21 08:48 topiramate [From TOPAMAX] AdvReac Mild STOMACH Verified 07/16/21 08:48 UPSET augmentin Allergy Mild sensitivity Uncoded 07/16/21 08:48 From NEXIUM Allergy Mild HIVES Uncoded 07/16/21 08:48 From PERCOCET Allergy Mild ITCHING Uncoded 07/16/21 08:48 From ULTRACET Allergy Mild RASH Uncoded 07/16/21 08:48 From VICODIN Allergy Mild RASH Uncoded 07/16/21 08:48 From LIPITOR AdvReac Mild HEADACHES Uncoded 07/16/21 08:48 From SINGULAIR AdvReac Mild HEADACHES Uncoded 07/16/21 08:48 Active Medications: Current Medications Albuterol/Ipratropium (Albuterol/Iprat 2.5/0.5mg 3 Ml Ampul.Neb) 3 ml INHALE RQ6H WHILE AWAKE [facility] Lactated Ringer's (Lr) 1,000 mls @ 150 mls/hr IVCONT .Q6H40M [facility] Stop: 08/04/21 22:34 Last Admin: 08/04/21 09:24 Dose: 150 mls/hr Documented by: Ondansetron HCl (Ondansetron Hcl 4 Mg/2 Ml Vial) 4 mg IVPUSH Q8H PRN PRN Reason: Nausea and Vomiting Pantoprazole Sodium (Pantoprazole Sodium 40 Mg/10 Ml Vial) 40 mg IVPUSH DAILY@0630 [facility] Last Admin: 08/04/21 05:48 Dose: 40 mg Documented by: Pharmacy Consult (Consult Rx Perform Med Rec) 1 each MISCELLANE ONCE PRN PRN Reason: Consult order Sodium Chloride (0.9 % Sodium Chloride Flush 3 Ml Syringe) 3 ml IVFLUSH QSHIFT [facility] Last Admin: 08/04/21 09:24 Dose: Not Given Documented by: Home Medications Medication Instructions Recorded Confirmed Last Taken Type alprazolam 0.5 mg tablet (Xanax) 0.5 mg PO BEDTIME PRN 08/28/20 06/25/21 Unknown History aspirin 81 mg tablet,delayed 81 mg PO DAILY 08/28/20 06/25/21 Unknown History release atorvastatin 40 mg tablet 40 mg PO DAILY 08/28/20 06/25/21 Unknown History escitalopram oxalate 10 mg tablet 10 mg PO DAILY 08/28/20 06/25/21 Unknown History (Lexapro) famotidine 20 mg tablet (Pepcid) 20 mg PO BID 08/28/20 06/25/21 Unknown History lactobacillus combination no.8 3 3,000 mmu cells PO DAILY 08/28/20 06/25/21 Unknown History billion cell capsule (Adult Probiotic) prochlorperazine maleate 10 mg 10 mg PO Q8H PRN 08/28/20 06/25/21 Unknown History tablet (Compazine) vitamin B complex (B 1 tab PO DAILY 08/28/20 06/25/21 Unknown History Complex-Vitamin B12) zoledronic acid 5 mg/100 mL in IV 08/28/20 06/25/21 Unknown History mannitol 5 %-water intravenous piggybck (Reclast) acetaminophen 500 mg tablet 1,000 mg PO Q6H PRN 02/08/21 06/25/21 Unknown History (Tylenol Extra Strength) estradiol (Estrace) 1 g VAGINAL QWEEK 02/08/21 06/25/21 Unknown History lifitegrast 5 % eye drops in a drp OPHTHALMIC (EYE) 02/27/21 06/25/21 Unknown History dropperette levocetirizine 5 mg tablet 5 mg PO DAILY 06/12/21 06/25/21 Unknown History Physical Exam Vital Signs: Vital Signs: Last Vital Signs Temp 98.7 F 08/04/21 12:00 Pulse 77 08/04/21 12:00 Resp 29 H 08/04/21 12:00 BP 146/48 H 08/04/21 12:00 Pulse Ox 99 08/04/21 12:00 Body Mass Index 21.3 Neuro: Other: She was alert and awake with normal sp speech, fluency, comprehension, naming, repetition and affect. Memory was ok. Face was symmetrical, EOMI, VFFTC, pupils round and reactive about 3 mm, face was symmetrical, tongue ok. Mild R arm levitation. DTRs 1 with flexor plantars. Speech ok. Finger to nose with mild b/l tremor, heel to rivers ok. She was able to get up and walk w/o difficulty. Results Labs CBC & Chem 7: 08/04/21 05:27 08/04/21 05:27 Labs: Short CBC 08/03/21 08/03/21 08/04/21 Range/Units 17:34 19:09 05:27 WBC 9.9 11.0 H 7.6 (4.8-10.8) X10*3/uL Hgb 12.1 12.1 11.8 L (12.0-16.0) g/dl Hct 36.1 L 35.5 L 34.4 L (37-47) % Plt Count 206 202 196 (160-400) X10*3/uL BMP 08/03/21 08/03/21 08/04/21 17:34 19:09 05:27 Sodium 137 137 138 Potassium 3.8 3.7 3.5 Chloride 106 105 108 Carbon Dioxide 20 L 21 L 20 L BUN 11 11 8 L Creatinine 0.77 0.72 0.66 Calcium 9.3 D 9.0 8.6 Liver Function 08/04/21 Range/Units 05:27 Total Bilirubin 1.0 (0.0-1.0) mg/dL AST 20 (5-31) U/L ALT 7 (0-31) U/L Alkaline Phosphatase 68 (39-117) U/L Albumin 3.7 (3.5-5.0) g/dL CT WO cont: mild frontal atrophy, L max sinus lesion. MRI WO cont: small area of rest diff in right cerebellumr, mod MVD (chronic) CTA brain and neck: no vasc stenosis Echocardiogram: OK EKG: NSR Labs: no sig abnormality, other than mild anemia CXR: OK Assessment and Plan (1) Acute cerebral infarction: Status: Acute 75 yo woman with an episode of expressive aphasia treated successfully with ivtPA with full resolution. Imaging revealed an acute right cerebellar lesion, unrelated, suggesting more than one emboli. rec: a: after 24 hr of tPA, anticoagulation at least for 6 months during which time investigations to r/o a fibb. Otherwise, the cerebllar infarct was tiny and she did not have any significant exam findings. She could be discharged tomorrow with appropriate cardiology f/u. Also, she was asking if she could be referred to the [facility] primary care practice, which should also be done. She should continue statin treatment. As far as max sinus lesion is concerned, it seemed chronic mucosal thickening. She can have out pt ENT consultation. (2) Cerebral microvascular disease: Status: Acute Procedures Date of Service Date of Service: 08/04/21
--- NOTE | 2021-08-04 13:55 | MHC.SL.SWA ---
Speech Pathologist Impression: Within Functional Limits Risk of Aspiration Due to: Neurological Condition Dysphasia Diet Status: Upgrade Liquid Consistency and Strategies for Safe Swallow: Liquid Intake Recommendation: Thin Liquid Intake Strategies: Small Sips Solid Food Consistency: Dietary Recommendations: Regular Additional Modifications to Solid Foods: Patient has dentures which are glued in. Patient presents with right side facial droop and slight left side tongue deviation. Patient tolerated solid and liquid consistencies with no overt s/s of aspiration. Patient feeds herself without difficulty. Recommend unmodified diet REGULAR solids and THIN liquids, with pills WHOLE in LIQUID. Aspiration precautions apply. Given recent CVA, recommend intermittent supervision to ensure tolerance of diet textures and to monitor for any s/s of aspiration. Patient is recommended continued speech therapy during inpatient stay and on outpatient basis for mild dysarthria and mild anomic aphasia. If patient is still here Friday, she will be seen by ASSET MANAGEMENT COORDINATOR for speech therapy. Patient and were provided with [facility] Oral Medication Intake: Whole with Liquid Compensatory Strategies and Precautions to be Taken for Safe Swallow: Sitting Upright (90 deg) Small Bites and Sips Alternate Liquids/Solids Rate of Ingestion Change Supervision While Eating and Drinking for Safe Swallow: Intermittent Supervision Swallowing Recommended Treatments: Compens. Strategy Educat. Recommendation for Speech: Outpatient Speech Therapy Inpatient Speech Therapy Comment: Patient presents with mild dysarthria and mild anomic aphasia. Patient is recommended outpatient speech therapy. Metal Leaf Layer Clinican/Clinical Fellow: No Supervisory Statement: I have reviewed and agree with the student/clinical fellow's documentation: N/A Speech Language Pathologist: Krystle Andersen M.A., [facility]-ASSET MANAGEMENT COORDINATOR
[2021-08-04 15:20] LABS: Estimated Average Glucose 97 mg/dL
--- NOTE | 2021-08-04 15:31 | MHC.CM.PN ---
Met with pt to discuss d/c planning: pt resides with spouse, is independent with all care needs and has no services. Her spouse assists with transportation as needed. PT has cleared pt for a return to home: pt declining services at this time - CM to follow for any changes that may occur. IMM signed: HCP verified and on file: COVID vaccinated this spring. CM to follow
[2021-08-04] MEDS: 0.9 % Sodium Chloride Flush 3 ML SYRINGE IVFLUSH (20:03)
[2021-08-04] MEDS: Atorvastatin Calcium 40 MG TABLET PO (20:03)
--- NOTE | 2021-08-04 20:11 | MHC.STROKE ---
Addendum entered by Aleksandra Moreland RN 08/06/21 10:32: I MET WITH THE PATIENT AND HER THIS MORNING TO DISCUSS HER DIAGNOSIS, WE REVIEWED THE STROKE EDUCATION BOOKLET, POWER POINT SLIDES, MRI IMAGE OF THE + STROKE. WE DISCUSSED HER RISK FACTORS, TEST RESULTS, MEDICATIONS AND PLAN OF CARE DURING THIS HOSPITALIZATION AND POST DISCHARGE. DR SCHRADER CAME IN AND HE WILL BE ORDERING A HOLTER MONITOR. I ANSWERED ALL OF THEIR QUESTIONS AND PROVIDED MY CONTACT INFORMATION. Original Note: 08/03/21 1714 PATIENT WALK-IN TO ED, C/O APHASIA/DYSARTHRIA. ONSET OF SYMPTOMS AT 1615 WITNESSED. STROKE PROTOCOL ACTIVATED. NIHSS = 2, STAT CT HEAD, NO BLEED, ELIGIBLE FOR TPA (ALTEPLASE). ALTEPLASE 45MG BOLUS GIVEN AT 1743 FOLLOWED BY IV DRIP OVER 1 HR, CTA ALSO DONE, NO LVO. NPO FAILED SWALLOW SCREEN. ADMITTED TO ICU. ALL STROKE MEASURES MET. CONTACT SPEECH THERAPIST AND SEEN, SEE HER EVALUATION. SEEN BY PT. DISCUSSED CASE WITH DR MARTI. ? EMBOLIC SOURCE DUE TO SM CEREBELLAR LESION ON MRI. F/U CT HEAD DONE, NO ADVERSE REACTION. RECOMMEND TO F/U WITH CARDIOLOGY, ? BUBBLE STUDY, ? HOLTER MONITOR OR LINQ IMPLANTABLE IF DEEMED NEEDED BY CARDIOLOGY. I WILL CONTINUE TO FOLLOW.
[2021-08-04 21:36] LABS: Glucose, Whole Blood 120 mg/dL (60-115)
[2021-08-05 03:57] VITALS: BP 147/74; PULSE 84; RESP 16; TEMP 36.9; O2SAT 97
[2021-08-05 06:00] VITALS: BMI 21.3
[2021-08-05 06:34] LABS: MANUAL DIFF FLAG NO
[2021-08-05 06:39] LABS: Basophils Percent Auto 0.5 % (0-2); Eosinophils Absolute Auto 0.2 X10*3/uL (0.0-0.4); Eosinophils Percent Auto 2.3 % (0-4); Hematocrit 35.4 % (37-47); Hemoglobin 11.7 g/dl (12.0-16.0); Imm Gran Abs Auto 0.03 X10*3/uL (0.00-0.03); Imm Gran Pct Auto 0.4 % (0.0-0.4); Lymphocytes Absolute Auto 1.4 X10*3/uL (1.2-4.9); Lymphocytes Percent Auto 16.8 % (20-40); Mean Corpuscular HGB Conc 33.1 g/dl (31.0-35.0); Mean Corpuscular Hemoglobin 30.3 pg (27.0-33.0); Mean Corpuscular Volume 91.7 fL (80-98); Mean Platelet Volume 9.5 fL (9.4-12.3); Monocytes Absolute Auto 0.9 X10*3/uL (0.1-1.2); Monocytes Percent Auto 11.2 % (2-11); Neutrophils Absolute Auto 5.7 X10*3/uL (2.0-8.3); Neutrophils Percent Auto 68.8 % (45-73); Platelet Count 199 X10*3/uL (160-400); Red Blood Count 3.86 X10*6/uL (4.20-5.50); White Blood Count 8.2 X10*3/uL (4.8-10.8)
[2021-08-05 07:01] LABS: Alanine Aminotransferase 10 U/L (0-31); Albumin Level 3.5 g/dL (3.5-5.0); Alkaline Phosphatase 69 U/L (39-117); Aspartate Amino Transferase 25 U/L (5-31); Blood Urea Nitrogen 6 mg/dL (9-16); Calcium 8.4 mg/dL (8.4-10.2); Creatinine Clr Calc Pharmacy 52.9; Estimated Glomerular Filt Rate > 60; Glucose Random 102 mg/dL (60-115); Total Protein 5.3 g/dL (6.5-8.0)
[2021-08-05 07:13] LABS: Anion Gap 11 (12-20); Carbon Dioxide 24 mmol/L (22-29); Chloride 110 mmol/L (96-108); Potassium 3.8 mmol/L (3.3-5.1); Sodium 141 mmol/L (135-145)
[2021-08-05 07:29] LABS: Glucose, Whole Blood 107 mg/dL (60-115)
[2021-08-05 07:37] VITALS: PULSE 81; O2SAT 98
[2021-08-05] MEDS: Albuterol/Iprat 2.5/0.5MG 3 ML AMPUL.NEB INHALE (07:37)
[2021-08-05 08:00] VITALS: BP 134/59; PULSE 88; RESP 18; TEMP 37.1; O2SAT 96
--- NOTE | 2021-08-05 10:18 | P.CNNE_ITS ---
History of Present Illness Data of Consult Service Date: 08/05/21 Primary Care Provider: Jennifer Sylvester MD HPI Reason for consult: Stroke 75 years old woman who I saw yesterday. She was feeling better and asking when she could leave. Further history was obtained from her and I also went down and talk to emergency room physician. It seems that when she was going through there was an element of confusion or amnesia. She denied that but after talking to her and the ER physician it was clear that there was a point when she seemed confused more than just not able to speak PMFSH Past Medical History Medical History COPD (chronic obstructive pulmonary disease) Cough Dyspnea GERD (gastroesophageal reflux disease) Microscopic hematuria Mycobacterial disease Osteoporosis Overactive bladder Pulmonary nodules Renal cyst URI (upper respiratory infection) Urinary urgency Family History Family History Son No problems noted. Surgical History Surgical History History of surgery S/P cervical spinal fusion Social History Social History Household Members: Spouse Housing: Condominium Do you presently have visiting nurse or other home services: No Alcohol intake: never Patient Tobacco Use Status: Never used Tobacco Second Hand Smoke Exposure: Yes Use of substances other than those prescribed or required for medical reasons: No Currently Displaying Signs/Symptoms of Drug Intoxication Withdrawal: No Have you been hit, kicked, punched, or otherwise hurt by someone within the past year? If so, by whom?: No Do you feel safe in your current relationship?: Yes Is there a partner from a previous relationship who is making you feel unsafe now?: No Are you made to feel afraid or neglected: No Advance Directives: Yes Advance Directives on File: Yes Advance Directives Date on File: 08/16/20 Do you have thoughts of harming others: None Do you have a plan to hurt others: No Plan Recently lost weight without trying: No Eating poorly because of decreased appetite: No Nutrition Risks: No Nutritional Risk Patient : No : No Poor oral hygiene: No service: No Current occupational status: retired Meds Allergies Allergy/AdvReac Type Severity Reaction Status Date / Time naproxen [From NAPROSYN] Allergy Severe sensitivity Verified 07/16/21 08:48 niacin Allergy Severe RASH Verified 07/16/21 08:48 [From NIASPAN EXTENDED-RELEASE] Penicillins [PENICILLINS] Allergy Severe ITCHING Verified 07/16/21 08:48 codeine [CODEINE] Allergy Mild ITCHING Verified 07/16/21 08:48 fluconazole [From DIFLUCAN] Allergy Mild sensitivity Verified 07/16/21 08:48 gatifloxacin [From TEQUIN] Allergy Mild sensitivity Verified 07/16/21 08:48 levofloxacin [From Levaquin] Allergy Mild sensitivity Verified 07/16/21 08:48 quinidine [QUINIDINE] Allergy Mild sensitivity Verified 07/16/21 08:48 Sulfa (Sulfonamide Allergy Mild RASH Verified 07/16/21 08:48 Antibiotics) [SULFA (SULFONAMIDE ANTIBIOTICS)] terfenadine [From SELDANE] Allergy Mild sensitivity Verified 07/16/21 08:48 tetracycline [TETRACYCLINE] Allergy Mild sensitivity Verified 07/16/21 08:48 cefaclor [From CECLOR] AdvReac Severe UNKNOWN Verified 07/16/21 08:48 clarithromycin [From BIAXIN] AdvReac Mild sensitivity Verified 07/16/21 08:48 topiramate [From TOPAMAX] AdvReac Mild STOMACH Verified 07/16/21 08:48 UPSET augmentin Allergy Mild sensitivity Uncoded 07/16/21 08:48 From NEXIUM Allergy Mild HIVES Uncoded 07/16/21 08:48 From PERCOCET Allergy Mild ITCHING Uncoded 07/16/21 08:48 From ULTRACET Allergy Mild RASH Uncoded 07/16/21 08:48 From VICODIN Allergy Mild RASH Uncoded 07/16/21 08:48 From LIPITOR AdvReac Mild HEADACHES Uncoded 07/16/21 08:48 From SINGULAIR AdvReac Mild HEADACHES Uncoded 07/16/21 08:48 Active Medications: Current Medications Albuterol Sulfate (Albuterol Sulfate (0.083%) 2.5 Mg/3 Ml Vial.Neb) 2.5 mg INHALE Q6H PRN PRN Reason: shortness of breath or wheezing Albuterol/Ipratropium (Albuterol/Iprat 2.5/0.5mg 3 Ml Ampul.Neb) 3 ml INHALE RQ6H WHILE AWAKE [facility] Last Admin: 08/05/21 07:37 Dose: 3 ml Documented by: Alprazolam (Alprazolam 0.5 Mg Tablet) 0.5 mg PO BID PRN PRN Reason: Anxiety Atorvastatin Calcium (Atorvastatin Calcium 40 Mg Tablet) 40 mg PO BEDTIME [facility] Last Admin: 08/04/21 20:03 Dose: 40 mg Documented by: Azithromycin (Azithromycin 250 Mg Tablet) 250 mg PO MoWeFr [facility] Escitalopram Oxalate (Escitalopram Oxalate 10 Mg Tablet) 10 mg PO DAILY [facility] Fluticasone/Vilanterol (Fluticasone/Vilanterol 100/25 Blst.W.Dev) 1 puff INHALE DAILY [facility] Multivitamins/Vitamin C (Multivitamin Tablet) 1 tab PO DAILY [facility] Non-Formulary Medication (Levocetirizine) 5 mg PO DAILY [facility] Ondansetron HCl (Ondansetron Hcl 4 Mg/2 Ml Vial) 4 mg IVPUSH Q8H PRN PRN Reason: Nausea and Vomiting Pharmacy Consult (Consult Rx Perform Med Rec) 1 each MISCELLANE ONCE PRN PRN Reason: Consult order Sodium Chloride (0.9 % Sodium Chloride Flush 3 Ml Syringe) 3 ml IVFLUSH QSHIFT [facility] Last Admin: 08/04/21 20:03 Dose: 3 ml Documented by: Home Medications Medication Instructions Recorded Confirmed Last Taken Type alprazolam 0.5 mg tablet (Xanax) 0.5 mg PO BID PRN 08/28/20 08/04/21 Unknown History aspirin 81 mg tablet,delayed 81 mg PO DAILY 08/28/20 08/04/21 Unknown History release atorvastatin 40 mg tablet 40 mg PO DAILY 08/28/20 08/04/21 Unknown History escitalopram oxalate 10 mg tablet 10 mg PO DAILY 08/28/20 08/04/21 Unknown History (Lexapro) prochlorperazine maleate 10 mg 10 mg PO Q8H PRN 08/28/20 08/04/21 Unknown History tablet (Compazine) vitamin B complex (B 1 tab PO DAILY 08/28/20 08/04/21 Unknown History Complex-Vitamin B12) levocetirizine 5 mg tablet 5 mg PO DAILY 06/12/21 08/04/21 Unknown History Physical Exam Vital Signs: Vital Signs: Last Vital Signs Temp 98.7 F 10/03/21 08:00 Pulse 88 08/05/21 08:00 Resp 18 08/05/21 08:00 BP 134/59 L 08/05/21 08:00 Pulse Ox 96 08/05/21 08:00 Body Mass Index 21.3 Neuro: Other: She was alert awake with normal spontaneity of speech fluency comprehension and affect. Results Labs CBC & Chem 7: 08/05/21 06:16 08/05/21 06:16 Labs: Short CBC 08/05/21 08/05/21 Range/Units 06:16 06:16 WBC Cancelled 8.2 Hgb Cancelled 11.7 L Hct Cancelled 35.4 L Plt Count Cancelled 199 BMP 08/05/21 06:16 Sodium 141 Potassium 3.8 Chloride 110 H Carbon Dioxide 24 BUN 6 L Creatinine 0.68 Calcium 8.4 Liver Function 08/05/21 Range/Units 06:16 Total Bilirubin 1.0 (0.0-1.0) mg/dL AST 25 (5-31) U/L ALT 10 (0-31) U/L Alkaline Phosphatase 69 (39-117) U/L Albumin 3.5 (3.5-5.0) g/dL Assessment and Plan (1) Acute cerebral infarction: Status: Acute 75 years old woman who was brought to emergency room with acute onset of difficulty speaking and was treated with intravenous tPA for suspected ischemic infarction. Her brain MRI revealed an acute small right cerebellar infarct but no lesion and middle cerebral artery area. This raised possibility of an a lternate etiology or the possibility that she had at small embolus that got cleared with tPA. After my discussion with her and ER physician it seemed that we should also be open to the 1st possibility. She was known to have migraine headaches in the past but this time she was not having a headache, even though that was still a possibility. Complex partial seizure disorder was another possibility. Whatever the reason for her difficulty speaking was, her brain imaging has clearly revealed a small acute embolic looking cerebellar infarct and multiple similar chronic ischemic infarctions. Because of these findings, my recommendation for anticoagulation and exploration for atrial fib rillation was still valid. In the meantime we should also consider obtaining an electroencephalogram to rule out any possibility of complex partial seizure disorder. Procedures Date of Service Date of Service: 08/05/21
[2021-08-05] MEDS: Multivitamin TABLET 1 TAB PO (10:22)
[2021-08-05] MEDS: Escitalopram Oxalate 10 MG TABLET PO (10:22)
[2021-08-05] MEDS: 0.9 % Sodium Chloride Flush 3 ML SYRINGE IVFLUSH ×3 (10:22→20:38)
[2021-08-05] MEDS: Lidocaine 4 % Patch ADH..PATCH 1 PATCH TRANSDERMA (10:35)
--- NOTE | 2021-08-05 10:52 | P.CONCA_ITS ---
History of Present Illness History of Present Illness Date of Service: 08/05/21 Chief complaint: ?Stroke Narrative: This is a cardiology consultation regarding stroke. She has mild nonobstructive CAD based on prior coronary CT but otherwise no known major cardiac comorbidities. Current admission is for speech issues and that led to further workup showing a cerebellar infarct. We have been asked to see her to assess for any cardioembolic source of stroke. She has had episodes of flu ttering or different times but no known or documented atrial fibrillation. She has a chronic chest pains in the left side that was thought to be noncardiac in nature. Otherwise, no specific cardiac symptoms. Review of Systems Review of Systems: Yes all other systems are reviewed and are negative Cardiovascular: Cardiovascular: Reports as per HPI, Reports no additional cardiovascular complaints, Denies acrocyanosis, Denies cool extremities, Denies painful fingertips, Denies chest pain, Denies chest pain at rest, Denies diaphoresis, Denies syncope, Denies irregular heart rhythm, Denies claudication, Denies leg edema, Denies lightheadedness, Denies palpitations and Denies dyspnea Respiratory: Respiratory: Denies dyspnea Neurologic: Denies syncope Endocrine: Endocrine: Denies palpitations PMFSH Past Medical History Medical History COPD (chronic obstructive pulmonary disease) Cough Dyspnea GERD (gastroesophageal reflux disease) Microscopic hematuria Mycobacterial disease Osteoporosis Overactive bladder Pulmonary nodules Renal cyst URI (upper respiratory infection) Urinary urgency Family History Family History Son No problems noted. Surgical History Surgical History History of surgery S/P cervical spinal fusion Social History Social History Household Members: Spouse Housing: Condominium Do you presently have visiting nurse or other home services: No Alcohol intake: never Patient Tobacco Use Status: Never used Tobacco Second Hand Smoke Exposure: Yes Use of substances other than those prescribed or required for medical reasons: No Currently Displaying Signs/Symptoms of Drug Intoxication Withdrawal: No Have you been hit, kicked, punched, or otherwise hurt by someone within the past year? If so, by whom?: No Do you feel safe in your current relationship?: Yes Is there a partner from a previous relationship who is making you feel unsafe now?: No Are you made to feel afraid or neglected: No Advance Directives: Yes Advance Directives on File: Yes Advance Directives Date on File: 08/16/20 Do you have thoughts of harming others: None Do you have a plan to hurt others: No Plan Recently lost weight without trying: No Eating poorly because of decreased appetite: No Nutrition Risks: No Nutritional Risk Patient : No : No Poor oral hygiene: No service: No Current occupational status: retired [employer] Allergies Allergy/AdvReac Type Severity Reaction Status Date / Time naproxen [From NAPROSYN] Allergy Severe sensitivity Verified 07/16/21 08:48 niacin Allergy Severe RASH Verified 07/16/21 08:48 [From NIASPAN EXTENDED-RELEASE] Penicillins [PENICILLINS] Allergy Severe ITCHING Verified 07/16/21 08:48 codeine [CODEINE] Allergy Mild ITCHING Verified 07/16/21 08:48 fluconazole [From DIFLUCAN] Allergy Mild sensitivity Verified 07/16/21 08:48 gatifloxacin [From TEQUIN] Allergy Mild sensitivity Verified 07/16/21 08:48 levofloxacin [From Levaquin] Allergy Mild sensitivity Verified 07/16/21 08:48 quinidine [QUINIDINE] Allergy Mild sensitivity Verified 07/16/21 08:48 Sulfa (Sulfonamide Allergy Mild RASH Verified 07/16/21 08:48 Antibiotics) [SULFA (SULFONAMIDE ANTIBIOTICS)] terfenadine [From SELDANE] Allergy Mild sensitivity Verified 07/16/21 08:48 tetracycline [TETRACYCLINE] Allergy Mild sensitivity Verified 07/16/21 08:48 cefaclor [From CECLOR] AdvReac Severe UNKNOWN Verified 07/16/21 08:48 clarithromycin [From BIAXIN] AdvReac Mild sensitivity Verified 07/16/21 08:48 topiramate [From TOPAMAX] AdvReac Mild STOMACH Verified 07/16/21 08:48 UPSET augmentin Allergy Mild sensitivity Uncoded 07/16/21 08:48 From NEXIUM Allergy Mild HIVES Uncoded 07/16/21 08:48 From PERCOCET Allergy Mild ITCHING Uncoded 07/16/21 08:48 From ULTRACET Allergy Mild RASH Uncoded 07/16/21 08:48 From VICODIN Allergy Mild RASH Uncoded 07/16/21 08:48 From LIPITOR AdvReac Mild HEADACHES Uncoded 07/16/21 08:48 From SINGULAIR AdvReac Mild HEADACHES Uncoded 07/16/21 08:48 Active Medications: Current Medications Albuterol Sulfate (Albuterol Sulfate (0.083%) 2.5 Mg/3 Ml Vial.Neb) 2.5 mg INHALE Q6H PRN PRN Reason: shortness of breath or wheezing Albuterol/Ipratropium (Albuterol/Iprat 2.5/0.5mg 3 Ml Ampul.Neb) 3 ml INHALE RQ6H WHILE AWAKE [facility] Last Admin: 08/05/21 07:37 Dose: 3 ml Documented by: Alprazolam (Alprazolam 0.5 Mg Tablet) 0.5 mg PO BID PRN PRN Reason: Anxiety Atorvastatin Calcium (Atorvastatin Calcium 40 Mg Tablet) 40 mg PO BEDTIME [facility] Last Admin: 08/04/21 20:03 Dose: 40 mg Documented by: Azithromycin (Azithromycin 250 Mg Tablet) 250 mg PO MoWeFr [facility] Escitalopram Oxalate (Escitalopram Oxalate 10 Mg Tablet) 10 mg PO DAILY [facility] Last Admin: 08/05/21 10:22 Dose: 10 mg Documented by: Fluticasone/Vilanterol (Fluticasone/Vilanterol 100/25 Blst.W.Dev) 1 puff INHALE DAILY [facility] Lidocaine (Lidocaine 4 % Patch Adh..Patch) 1 patch TRANSDERMA DAILY [facility]; Protocol Last Admin: 08/05/21 10:35 Dose: 1 patch Documented by: Multivitamins/Vitamin C (Multivitamin Tablet) 1 tab PO DAILY [facility] Last Admin: 08/05/21 10:22 Dose: 1 tab Documented by: Non-Formulary Medication (Levocetirizine) 5 mg PO DAILY [facility] Ondansetron HCl (Ondansetron Hcl 4 Mg/2 Ml Vial) 4 mg IVPUSH Q8H PRN PRN Reason: Nausea and Vomiting Pharmacy Consult (Consult Rx Perform Med Rec) 1 each MISCELLANE ONCE PRN PRN Reason: Consult order Sodium Chloride (0.9 % Sodium Chloride Flush 3 Ml Syringe) 3 ml IVFLUSH QSHIFT [facility] Last Admin: 08/05/21 10:22 Dose: 3 ml Documented by: Home Medications Medication Instructions Recorded Confirmed Last Taken Type alprazolam 0.5 mg tablet (Xanax) 0.5 mg PO BID PRN 08/28/20 08/04/21 Unknown History aspirin 81 mg tablet,delayed 81 mg PO DAILY 08/28/20 08/04/21 Unknown History release atorvastatin 40 mg tablet 40 mg PO DAILY 08/28/20 08/04/21 Unknown History escitalopram oxalate 10 mg tablet 10 mg PO DAILY 08/28/20 08/04/21 Unknown History (Lexapro) prochlorperazine maleate 10 mg 10 mg PO Q8H PRN 08/28/20 08/04/21 Unknown History tablet (Compazine) vitamin B complex (B 1 tab PO DAILY 08/28/20 08/04/21 Unknown History Complex-Vitamin B12) levocetirizine 5 mg tablet 5 mg PO DAILY 06/12/21 08/04/21 Unknown History Physical Exam Vital Signs: Vital Signs: Last Vital Signs Temp 98.7 F 08/05/21 08:00 Pulse 88 08/05/21 08:00 Resp 18 08/05/21 08:00 BP 134/59 L 08/05/21 08:00 Pulse Ox 96 08/05/21 08:00 Body Mass Index 21.3 Const: General: cooperative and no acute distress HENMT: Other: Unremarkable Neck: Neck: Yes normal visual inspection Chest: Chest palpation & inspection: normal inspection of the chest Resp: Auscultation: clear to auscultation bilaterally, no crackles and no wheezes Cardio: Jugular venous distension: no JVD Palpation: normal PMI Heart s ounds: S1 normal heart sound present, S2 normal heart sound present, no gallops, no murmurs and no rubs GI: Palpation (GI): Soft to palpation Back/Spine/Pelvis: Other: unremarkable Skin: General skin exam: no rashes or lesions noted Neuro: Cranial nerves: Yes Other cranial nerve findings present Extrem: General: Yes no clubbing, cyanosis or edema Psych: Mental Status: other Results Labs and Meds Result diagrams: 08/05/21 06:16 08/05/21 06:16 Lab results: Laboratory Results - last 24 hr 08/04/21 08/04/21 08/04/21 05:27 11:28 21:13 WBC RBC Hgb Hct MCV MCH MCHC RDW Plt Count MPV Immature Gran % (Auto) Neut % (Auto) Lymph % (Auto) Sumner % (Auto) Eos % (Auto) Baso % (Auto) Lymph # (Auto) [place]ner # (Auto) Eos # (Auto) Baso # (Auto) Abs Immat Gran (auto) Absolute Neuts (auto) Absolute Nucleated RBC Nucleated RBC % (auto) Sodium Potassium Chloride Carbon Dioxide Anion Gap BUN Creatinine Estim Creat Clear Calc Estimated GFR POC Glucose 100 120 H Random Glucose Estimat Average Glucose 97 Hemoglobin A1c % 5.0 Calcium Total Bilirubin AST ALT Alkaline Phosphatase Total Protein Albumin 08/05/21 08/05/21 08/05/21 06:16 06:16 06:16 WBC Cancelled 8.2 RBC Cancelled 3.86 L Hgb Cancelled 11.7 L Hct Cancelled 35.4 L MCV Cancelled 91.7 MCH Cancelled 30.3 MCHC Cancelled 33.1 RDW Cancelled 13.0 Plt Count Cancelled 199 MPV Cancelled 9.5 Immature Gran % (Auto) Cancelled 0.4 Neut % (Auto) Cancelled 68.8 Lymph % (Auto) Cancelled 16.8 L Sumner % (Auto) Cancelled 11.2 H Eos % (Auto) Cancelled 2.3 Baso % (Auto) Cancelled 0.5 Lymph # (Auto) Cancelled 1.4 Sumner # (Auto) Cancelled 0.9 Eos # (Auto) Cancelled 0.2 Baso # (Auto) Cancelled 0.0 Abs Immat Gran (auto) Cancelled 0.03 Absolute Neuts (auto) Cancelled 5.7 Absolute Nucleated RBC Cancelled 0.000 Nucleated RBC % (auto) Cancelled 0.0 Sodium 141 Potassium 3.8 Chloride 110 H Carbon Dioxide 24 Anion Gap 11 L BUN 6 L Creatinine 0.68 Estim Creat Clear Calc 52.9 Estimated GFR > 60 POC Glucose Random Glucose 102 Estimat Average Glucose Hemoglobin A1c % Calcium 8.4 Total Bilirubin 1.0 AST 25 ALT 10 Alkaline Phosphatase 69 Total Protein 5.3 L Albumin 3.5 08/05/21 07:18 WBC RBC Hgb Hct MCV MCH MCHC RDW Plt Count MPV Immature Gran % (Auto) Neut % (Auto) Lymph % (Auto) Sumner % (Auto) Eos % (Auto) Baso % (Auto) Lymph # (Auto) Sumner # (Auto) Eos # (Auto) Baso # (Auto) Abs Immat Gran (auto) Absolute Neuts (auto) Absolute Nucleated RBC Nucleated RBC % (auto) Sodium Potassium Chloride Carbon Dioxide Anion Gap BUN Creatinine Estim Creat Clear Calc Estimated GFR POC Glucose 107 Random Glucose Estimat Average Glucose Hemoglobin A1c % Calcium Total Bilirubin AST ALT Alkaline Phosphatase Total Protein Albumin ECG Interpretation: Admission EKG with sinus rhythm at 97/Min; mild ST depression in lateral leads, but more prominent than before. Imaging Radiologist's impression: Impressions Head CT 08/04/21 12:00 IMPRESSION: Small lacunar infarct right cerebellar lobe unchanged. CT otherwise normal, no intracranial hemorrhage. Assessment and Plan (1) Cerebellar stroke, acute: Status: Acute (2) Atherosclerotic cardiovascular disease: Status: Acute Pertinent studies reviewed. Echocardiogram with LVEF of 59%; mild mitral regurgitation and a mobile atrial septum without evidence of any interatrial shunting otherwise. There was no evidence of pulmonary hypertension or pericardial effusion. Coronary CTA from 2018-focal plaque at the mid LAD with mild narrowing; mild calcific plaque at RCA origin without any significant luminal narrowing. Myocardial perfusion imaging study from 2019 performed at [facility]-no reversible or fixed defects; exercise capacity 4.6 Mets and reached 82% of max predicted heart rate. Brain MRI shows a small acute infarct in the right cerebellar hemisphere. Head and neck CTA shows no significant stenosis or occlusion. Agree that she needs workup for embolic source of infection. Also agree with empiric anticoagulation in the interim. When cleared from Neurology, start Eliquis 5 mg b.i.d.. Can repeat limited echocardiogram with bubble study but this can also be done as an outpatient if she is discharged. Otherwise, can arrange a 14 day Holter to start with and then possibly ILR based on findings. Thank you. Procedures Date of Service Date of Service: 08/05/21
[2021-08-05 12:00] VITALS: BP 117/44; PULSE 71; RESP 18; TEMP 36.7; O2SAT 98
[2021-08-05 13:25] LABS: Appearance Urine HAZY; Color Urine YELLOW; Glucose Urine UA NEG (NEG); Leukocyte Esterase Urine 2+ (NEG); Nitrite Urine NEG (NEG); Specific Gravity - Urine <= 1.005 (1.005-1.025); Urine Blood 2+ (NEG); Urine Ketones NEG (NEG); Urine Protein NEG (NEG-TRACE)
[2021-08-05 13:41] LABS: Bacteria Urine 1+ /LPF; Squamous Epithelial Cell Urine TRACE /LPF; WBC Clumps Urine NOTED
--- NOTE | 2021-08-05 13:47 | HO.PM.IMPN ---
Subjective Subjective Date of Service: 08/05/21 Interval History: Dysarthria/aphasia resolved No motor deficit No palpitations C/o chronic R shoulder pain C/o some dysuria Review of Systems Review of Systems: Yes all other systems are reviewed and are negative Physical Exam Vital Signs: Vital Signs: Last Vital Signs Temp 98.1 F 08/05/21 12:00 Pulse 71 08/05/21 12:00 Resp 18 08/05/21 12:00 BP 117/44 L 08/05/21 12:00 Pulse Ox 98 08/05/21 12:00 Body Mass Index 21.3 Gen: in no acute distress HEENT: sclera anicteric, moist mucus membranes Neck: supple Lungs: clear to auscultation bilaterally Heart: regular rate and rhythm, no murmurs Abd: soft, non-tender, non-distended Ext: no edema Skin: warm/well-perfused Neuro: alert and oriented x3, no pronator drift, no facial droop, no motor deficit, no dysmetria, no dysdiadochokinesia Psych: appropriate affect Objective Data Active Medications Albuterol Sulfate (Albuterol Sulfate (0.083%) 2.5 Mg/3 Ml Vial.Neb) 2.5 mg INHALE Q6H PRN PRN Reason: shortness of breath or wheezing Albuterol/Ipratropium (Albuterol/Iprat 2.5/0.5mg 3 Ml Ampul.Neb) 3 ml INHALE RQ6H WHILE AWAKE [facility] Last Admin: 08/05/21 07:37 Dose: 3 ml Documented by: FRANKIE Alprazolam (Alprazolam 0.5 Mg Tablet) 0.5 mg PO BID PRN PRN Reason: Anxiety Apixaban (Apixaban 5 Mg Tablet) 5 mg PO BID [facility] Atorvastatin Calcium (Atorvastatin Calcium 40 Mg Tablet) 40 mg PO BEDTIME [facility] Last Admin: 08/04/21 20:03 Dose: 40 mg Documented by: ANNIA Azithromycin (Azithromycin 250 Mg Tablet) 250 mg PO MoWeFr [facility] Escitalopram Oxalate (Escitalopram Oxalate 10 Mg Tablet) 10 mg PO DAILY [facility] Last Admin: 08/05/21 10:22 Dose: 10 mg Documented by: TUCKER Fluticasone/Vilanterol (Fluticasone/Vilanterol 100/25 Blst.W.Dev) 1 puff INHALE DAILY [facility] Last Admin: 08/05/21 11:00 Dose: Not Given Documented by: BORIS Non-Admin Reason: See Note Lidocaine (Lidocaine 4 % Patch Adh..Patch) 1 patch TRANSDERMA DAILY [facility]; Protocol Last Admin: 08/05/21 10:35 Dose: 1 patch Documented by: TUCKER Multivitamins/Vitamin C (Multivitamin Tablet) 1 tab PO DAILY [facility] Last Admin: 08/05/21 10:22 Dose: 1 tab Documented by: TUCKER Ondansetron HCl (Ondansetron Hcl 4 Mg/2 Ml Vial) 4 mg IVPUSH Q8H PRN PRN Reason: Nausea and Vomiting Pharmacy Consult (Consult Rx Perform Med Rec) 1 each MISCELLANE ONCE PRN PRN Reason: Consult order Sodium Chloride (0.9 % Sodium Chloride Flush 3 Ml Syringe) 3 ml IVFLUSH QSHIFT [facility] Last Admin: 08/05/21 10:22 Dose: 3 ml Documented by: TUCKER Labs CBC & Chem 7: 08/05/21 06:16 08/05/21 06:16 Labs: Laboratory Results - last 24 hr 08/04/21 08/04/21 08/05/21 05:27 21:13 06:16 MCV Cancelled MCH Cancelled MCHC Cancelled RDW Cancelled Plt Count Cancelled MPV Cancelled Immature Gran % (Auto) Cancelled Neut % (Auto) Cancelled Lymph % (Auto) Cancelled [place] % (Auto) Cancelled Eos % (Auto) Cancelled Baso % (Auto) Cancelled Lymph # (Auto) Cancelled [place] # (Auto) Cancelled Eos # (Auto) Cancelled Baso # (Auto) Cancelled Abs Immat Gran (auto) Cancelled Absolute Neuts (auto) Cancelled Absolute Nucleated RBC Cancelled Nucleated RBC % (auto) Cancelled Anion Gap Estim Creat Clear Calc Estimated GFR POC Glucose 120 H Random Glucose Estimat Average Glucose 97 Hemoglobin A1c % 5.0 Calcium Total Bilirubin AST ALT Alkaline Phosphatase Total Protein Albumin Urine Color Urine Appearance Urine pH Ur Specific [place] Urine Protein Urine Glucose (UA) Urine Ketones Urine Blood Urine Nitrite Ur Leukocyte Esterase Urine RBC Urine WBC Urine WBC Clumps Ur Squamous Epith Cells Urine Bacteria 08/05/21 08/05/21 08/05/21 06:16 06:16 07:18 MCV 91.7 MCH 30.3 MCHC 33.1 RDW 13.0 Plt Count 199 MPV 9.5 Immature Gran % (Auto) 0.4 Neut % (Auto) 68.8 Lymph % (Auto) 16.8 L [place] % (Auto) 11.2 H Eos % (Auto) 2.3 Baso % (Auto) 0.5 Lymph # (Auto) 1.4 [place] # (Auto) 0.9 Eos # (Auto) 0.2 Baso # (Auto) 0.0 Abs Immat Gran (auto) 0.03 Absolute Neuts (auto) 5.7 Absolute Nucleated RBC 0.000 Nucleated RBC % (auto) 0.0 Anion Gap 11 L Estim Creat Clear Calc 52.9 Estimated GFR > 60 POC Glucose 107 Random Glucose 102 Estimat Average Glucose Hemoglobin A1c % Calcium 8.4 Total Bilirubin 1.0 AST 25 ALT 10 Alkaline Phosphatase 69 Total Protein 5.3 L Albumin 3.5 Urine Color Urine Appearance Urine pH Ur Specific [place] Urine Protein Urine Glucose (UA) Urine Ketones Urine Blood Urine Nitrite Ur Leukocyte Esterase Urine RBC Urine WBC Urine WBC Clumps Ur Squamous Epith Cells Urine Bacteria 08/05/21 12:00 MCV MCH MCHC RDW Plt Count MPV Immature Gran % (Auto) Neut % (Auto) Lymph % (Auto) [place] % (Auto) Eos % (Auto) Baso % (Auto) Lymph # (Auto) [place] # (Auto) Eos # (Auto) Baso # (Auto) Abs Immat Gran (auto) Absolute Neuts (auto) Absolute Nucleated RBC Nucleated RBC % (auto) Anion Gap Estim Creat Clear Calc Estimated GFR POC Glucose Random Glucose Estimat Average Glucose Hemoglobin A1c % Calcium Total Bilirubin AST ALT Alkaline Phosphatase Total Protein Albumin Urine Color YELLOW Urine Appearance HAZY Urine pH 6.0 Ur Specific [place] <= 1.005 Urine Protein NEG Urine Glucose (UA) NEG Urine Ketones NEG Urine Blood 2+ H Urine Nitrite NEG Ur Leukocyte Esterase 2+ H Urine RBC 5-9 H Urine WBC 15-29 H Urine WBC Clumps NOTED Ur Squamous Epith Cells TRACE Urine Bacteria 1+ Assessment and Plan (1) Cerebellar stroke, acute: Status: Acute (2) Cerebral microvascular disease: Status: Acute (3) Acute cerebral infarction: Status: Acute (4) Cerebrovascular accident: Status: Acute Assessment and Plan: hospital d#3 75yo F with ocular migraines, HLD, COPD, cervical spondylosis, pulmonary nodules, GERD presented with acute aphasia admitted to ICU after tPA administration for suspected CVA aphasia [place] [facility] [place] # suspected CVA - MRI shows cerebellar infarct not corresponding to her presenting stroke syndrome. possibility of small infarct with rapid reperfusion, but in any case, there is suspicion of cardioembolic source. will start apixaban 5 mg bid, consult Cardiology for Holter vs. ILR. continue statin. outpatient [employer]. - TTE with bubble in am - question of complex partial seizure is present- will obtain EEG as per Neurology # suspected UTI - ceftriaxone, follow UCx # shoulder pain - lidocaine patch # COPD - azithromycin, ICS/LABA, bronchodilator treatments # mood disorder - escitalopram, alprazolam # VTE ppx - apixaban as above Quality Stroke Does the patient have a stroke diagnosis?: Yes Reason for No Anti-thrombotic by Day Two: N/A - Med Ordered VTE Prior VTE?: No VTE Risk Level:: Medical - moderate - high VTE Device Contraindication: N/A - Device Ordered VTE Drug Contraindication: Treatment Not Indicated
[2021-08-05 14:53] VITALS: BP 134/59; PULSE 70; RESP 18; TEMP 36.7; O2SAT 98
[2021-08-05] MEDS: cefTRIAXone sodium 1 GM in 0.9 % Sodium Chloride 50 ML IV (14:59)
[2021-08-05 20:00] VITALS: BP 134/50; PULSE 78; RESP 18; TEMP 36.7; O2SAT 95
[2021-08-05] MEDS: Atorvastatin Calcium 40 MG TABLET PO (20:38)
[2021-08-05] MEDS: Apixaban 5 MG TABLET PO (20:38)
[2021-08-06] VITALS: BP 159/69; PULSE 83; RESP 18; TEMP 37.1; O2SAT 95
--- NOTE | 2021-08-06 | EEG_ITS ---
This is a 16-channel EEG with an EKG lead. The patient is reported awake during the tracing. Background EEG rhythm is low amplitude fast with no obvious asymmetry or paroxysmal tendency. Frequent lead and muscle artifacts are noted. Photic stimulation does not produce any significant abnormality. Hyperventilation is not performed. Cardiac lead does not reveal any significant abnormality. IMPRESSION: No significant abnormality noted on this EEG. MD DIONE Lopez/FRANCES / [id number]
[2021-08-06 04:00] VITALS: BP 153/73; PULSE 87; RESP 18; TEMP 36.6; O2SAT 97
[2021-08-06 06:00] VITALS: BMI 18.1
[2021-08-06 07:26] VITALS: BP 125/52; PULSE 67; RESP 18; TEMP 36.5; O2SAT 98
[2021-08-06] MEDS: Apixaban 5 MG TABLET PO (07:28)
[2021-08-06] MEDS: Lidocaine 4 % Patch ADH..PATCH 1 PATCH TRANSDERMA (07:28)
[2021-08-06] MEDS: 0.9 % Sodium Chloride Flush 3 ML SYRINGE IVFLUSH (07:28)
[2021-08-06] MEDS: Multivitamin TABLET 1 TAB PO (07:29)
[2021-08-06] MEDS: Escitalopram Oxalate 10 MG TABLET PO (07:29)
[2021-08-06] MEDS: Azithromycin 250 MG TABLET PO (07:31)
[2021-08-06 07:34] LABS: Glucose, Whole Blood 93 mg/dL (60-115)
[2021-08-06 10:59] VITALS: BP 142/58; PULSE 75; RESP 18; TEMP 36.7; O2SAT 96
[2021-08-06 11:02] LABS: Glucose, Whole Blood 111 mg/dL (60-115)
--- NOTE | 2021-08-06 11:12 | PM.PNCARD ---
Subjective Subjective Date of Service: 08/06/21 <PRUDENCE Ramires - Last Filed: 08/06/21 11:25> 08/06/21 <Perfecto Dixon MD - Last Filed: 08/06/21 11:41> Principal diagnosis: acute CVA <PRUDENCE Ramires - Last Filed: 08/06/21 11:25> Interval history: Cardiology follow up for CVA, eval for cardioembolic cause. Seen at 1030. Today she reports feeling well. Speech clear and appropriate. No chest pains, sob, palpitations. No dizziness, presyncope, syncope. No mobility issues reported. She describes having intermittent heart palpitations in the past. Planning for discharge today. present. <PRUDENCE Ramires - Last Filed: 08/06/21 11:25> Review of Systems Review of Systems as above <PRUDENCE Ramires - Last Filed: 08/06/21 11:25> Physical Exam Vital Signs: Last Vital Signs Temp 98.0 F 08/06/21 10:59 Pulse 75 08/06/21 10:59 Resp 18 08/06/21 10:59 BP 142/58 H 08/06/21 10:59 Pulse Ox 96 08/06/21 10:59 Body Mass Index 18.1 <PRUDENCE Ramires - Last Filed: 08/06/21 11:25> Const General: cooperative, healthy appearing, no acute distress, alert and awake <PRUDENCE Ramires - Last Filed: 08/06/21 11:25> Orientation/consciousness: patient oriented x3 <PRUDENCE Ramires - Last Filed: 08/06/21 11:25> HENMT Head: Yes normal to inspection <PRUDENCE Ramires Last Filed: 08/06/21 11:25> Neck Neck: Yes normal visual inspection and Yes no JVD <PRUDENCE Ramires - Last Filed: 08/06/21 11:25> Carotids: carotid upstroke abnormal <PRUDENCE Ramires - Last Filed: 08/06/21 11:25> Resp Effort & Inspection: normal respiratory effort, able to speak in complete sentences and not labored <Renee TaverasHEATHER-C - Last Filed: 08/06/21 11:25> Auscultation: clear to auscultation bilaterally, no crackles, no rales, no rhonchi and no wheezes <Renee TaverasHEATHER-C - Last Filed: 08/06/21 11:25> Cardio Palpation: normal PMI <Renee TaverasHEATHER-C - Last Filed: 08/06/21 11:25> Rate: regular rate <Renee TaverasHEATHER-C - Last Filed: 08/06/21 11:25> Rhythm: regular rhythm <Renee TaverasHEATHER-C - Last Filed: 08/06/21 11:25> Heart sounds: S1 normal heart sound present and S2 normal heart sound present <Renee TaverasHEATHER-C - Last Filed: 08/06/21 11:25> Peripheral pulses: Peripheral pulses 2+ throughout <Renee TaverasHEATHER-C - Last Filed: 08/06/21 11:25> GI Inspection: Yes normal to inspection <Renee TaverasHEATHER-C - Last Filed: 08/06/21 11:25> Neuro General: patient oriented x3 <Renee TaverasHETAHER-C - Last Filed: 08/06/21 11:25> Extrem General: Yes normal to inspection and No edema <Renee TaverasHEATHER-C - Last Filed: 08/06/21 11:25> Results Labs and Meds Result diagrams: : 08/05/21 06:16 08/05/21 06:16 <Renee TaverasHEATHER-C - Last Filed: 08/06/21 11:25> Lab results: Laboratory Results - last 24 hr 08/05/21 08/06/21 08/06/21 12:00 07:22 10:58 POC Glucose 93 111 Urine Color YELLOW Urine Appearance HAZY Urine pH 6.0 Ur Specific [place] <= 1.005 Urine Protein NEG Urine Glucose (UA) NEG Urine Ketones NEG Urine Blood 2+ H Urine Nitrite NEG Ur Leukocyte Esterase 2+ H Urine RBC 5-9 H Urine WBC 15-29 H Urine WBC Clumps NOTED Ur Squamous Epith Cells TRACE Urine Bacteria 1+ <PRUDENCE Ramires - Last Filed: 08/06/21 11:25> Progress Note: A&P Assessment and plan (1) Cerebellar stroke, acute: Status: Acute <PRUDENCE Ramires - Last Filed: 08/06/21 11:25> Assessment and Plan: Admit with acute CVA. Cardiology following to eval for cardioembolic cause. All pertinent testing noted and reviewed in Dr Lincoln's consult note. Echo from June did show a mobile atrial septum but no other signs of PFO. A limited echo/ bubble study was completed today to assess for presence of PFO - result is still pending. EKG and Tele this admit show SR. She does report having intermittent palpitations over the years, no diagnosis of afib. Will arrange for a 14 day holter, applying at discharge if possible. If no finding of afib on Holter then ILR will be considered. She has been started on Eliquis. Spent time with pt and going over what the potential cardioembolic causes of CVA are. We will arrange for outpt cardiology follow up. <PRUDENCE Ramires - Last Filed: 08/06/21 11:25> (2) Palpitation: Status: Acute <PRUDENCE Ramires - Last Filed: 08/06/21 11:25> Fall Risk Details Current Medications: Current Medications Albuterol Sulfate (Albuterol Sulfate (0.083%) 2.5 Mg/3 Ml Vial.Neb) 2.5 mg INHALE Q6H PRN PRN Reason: shortness of breath or wheezing Albuterol/Ipratropium (Albuterol/Iprat 2.5/0.5mg 3 Ml Ampul.Neb) 3 ml INHALE RQ6H WHILE AWAKE [facility] Last Admin: 08/06/21 08:07 Dose: Not Given Documented by: Alprazolam (Alprazolam 0.5 Mg Tablet) 0.5 mg PO BID PRN PRN Reason: Anxiety Apixaban (Apixaban 5 Mg Tablet) 5 mg PO BID [facility] Last Admin: 08/06/21 07:28 Dose: 5 mg Documented by: Atorvastatin Calcium (Atorvastatin Calcium 40 Mg Tablet) 40 mg PO BEDTIME [facility] Last Admin: 08/05/21 20:38 Dose: 40 mg Documented by: Azithromycin (Azithromycin 250 Mg Tablet) 250 mg PO MoWeFr [facility] Last Admin: 08/06/21 07:31 Dose: 250 mg Documented by: Escitalopram Oxalate (Escitalopram Oxalate 10 Mg Tablet) 10 mg PO DAILY [facility] Last Admin: 08/06/21 07:29 Dose: 10 mg Documented by: Fluticasone/Vilanterol (Fluticasone/Vilanterol 100/25 Blst.W.Dev) 1 puff INHALE DAILY [facility] Last Admin: 08/06/21 08:07 Dose: Not Given Documented by: Ceftriaxone Sodium 1 gm/ (Sodium Chloride) 50 mls @ 100 mls/hr IV Q24H [facility] Last Infusion: 08/05/21 15:38 Dose: Infused Documented by: Lidocaine (Lidocaine 4 % Patch Adh..Patch) 1 patch TRANSDERMA DAILY [facility]; Protocol Last Admin: 08/06/21 07:28 Dose: 1 patch Documented by: Multivitamins/Vitamin C (Multivitamin Tablet) 1 tab PO DAILY [facility] Last Admin: 08/06/21 07:29 Dose: 1 tab Documented by: Ondansetron HCl (Ondansetron Hcl 4 Mg/2 Ml Vial) 4 mg IVPUSH Q8H PRN PRN Reason: Nausea and Vomiting Pharmacy Consult (Consult Rx Perform Med Rec) 1 each MISCELLANE ONCE PRN PRN Reason: Consult order Sodium Chloride (0.9 % Sodium Chloride Flush 3 Ml Syringe) 3 ml IVFLUSH QSHIFT [facility] Last Admin: 08/06/21 07:28 Dose: 3 ml Documented by: <PRUDENCE Ramires - Last Filed: 08/06/21 11:25> Time Spent With Patient Time: Total time spent is greater than 50% in coordination of care (as documented) at patient's floor/unit and/or counseling patient: <PRUDENCE Ramires - Last Filed: 08/06/21 11:25> Time with patient: 15 - 24 minutes <PRUDENCE Ramirse - Last Filed: 08/06/21 11:25> Progress Note: Quality Stroke Does the patient have a stroke diagnosis?: Yes <PRUDENCE Ramires - Last Filed: 08/06/21 11:25> Reason for No Anti-thrombotic by Day Two: N/A - Med Ordered <PRUDENCE Ramires - Last Filed: 08/06/21 11:25> Procedures Date of Service Date of Service: 08/06/21 <PRUDENCE Ramires - Last Filed: 08/06/21 11:25>
[2021-08-06 11:14] VITALS: BP 142/58; PULSE 75; O2SAT 96
--- NOTE | 2021-08-06 11:36 | PM.DS ---
DS: Providers Provider Date of Service: 08/06/21 Date of admission: 08/03/21 18:26 Date of discharge: 08/06/21 Primary care physician: Jennifer Sylvester MD Admitting clinician: Etienne Florence Attending physician on admission: Ned Mitchell Consults: 08/03/21 18:26 Consult to Neurology Routine Consulting Provider: [facility] Reason for consultation: CVA s/p tPA 08/04/21 14:14 Consult to Cardiology Routine Consulting Provider: Chris Lincoln Reason for consultation: MRI suggests multiple emboli- ?place ILR Attending physician on discharge: Souleymane Stearns Discharging clinician: Souleymane Stearns DS: Diagnosis Discharge Diagnosis (1) Cerebellar stroke, acute: Status: Acute (2) Aphasia due to acute stroke: Status: Acute (3) Embolic stroke: Status: Acute (4) Urinary tract infection: Status: Acute (5) Patent foramen ovale: Status: Acute DS: Summary Hospital Course Hospital Course: from history and physical by the admitting assistant refinery operator SHINE Banks, 08/03/21: This patient was 75-year-old female with prior history of ocular migraines, hyperlipidemia, secondhand smoking related COPD, renal cyst, cervical spondylosis status post fusion., polyarthralgia, and GERD, pulmonary nodules (followed by Dr. Lino); who presented to the emergency room this afternoon around 5:37 p.m. as her brought her in given the concern of stroke-like symptoms.? There was no concern of weakness, patient reports no headache, visual disturbance, numbness or tingling of the upper lower extremities. According to the around 4:[address] they were on their way to [facility] and about 15 minutes later the patient started to develop trouble speaking, I seem like she had trouble pronouncing words and also getting her words out, he immediately drove her to the hospital.? On arrival, the patient was found to be normotensive and to have expressive aphasia, stroke protocol was activated, initial head CT showed no hemorrhage or other signs of acute stroke, Neurology was consulted and the patient receive tPA within 15 minutes of arrival, follow-up CT angiogram of the head and neck showed no significant stenosis or vessel occlusion.? Severe left maxillary sinus disease and at the men's degenerative changes of the right temporomandibular joint. ER her laboratory workup revealed white count 11.0, H&H of 12.1 in 35 respectively, platelet of 202, no electrolyte abnormality on the chemistry panel, intact renal function.? LDL cholesterol of 60 troponin less than 3.5, random glucose 133, COVID negative. It is thought that the patient's speech improved slightly after tPA administration but according to family they were concerned that her symptoms had come back to their initial state. ?During my interview and exam, the patient has right facial droop with intermittent episodes of dysarthria and expressive aphasia however family and the patient herself recognize that her symptoms are much better and her ability to speak has improved significantly at this time which is about an hour and half after tPA administration.? Currently patient has no complaints. This 75 year-old woman with history of ocular migraines, hyperlipidemia, COPD, cervical spondylosis, pulmonary nodules, and GERD presented with acute aphasia and was admitted to the ICU after tPA administration for suspected CVA. Facial droop, dysarthria, and aphasia resolved. She was downgraded to the [facility] on 08/04/21. Neurology was consulted. MRI showed a cerebellar infarct not corresponding to her presenting stroke syndrome. This suggests the possibility that her aphasia was due to a small infarct that perfused rapidly without any radiolographic sequelae, which raises suspicion of cardioembolic source, particularly as there was no significant occlusive disease on CTA of the head and neck. Cardiology was consulted and a 14-day Holter was placed upon discharge to investigate for occult atrial fibrillation. Forty-eight hours after tPA was given, she was started on apixaban 5 mg bid for secondary stroke prevention. TTE with bubble study showed small PFO with mobile interatrial septum and right to left shunting; she will follow up with Cardiology for consideration of risks/benefits of closure. The question of complex partial seizure was worked up with EEG as per the neurology tour consultant; the EEG was normal. She was treated with ceftriaxone for suspected UTI; transitioned to cefuroxime upon discharge. She was discharged home with instructions to follow up with Primary Care, Cardiology, and Neurology, as well as to obtain outpatient speech and language therapy. Time Spent with Patient Time attestation: Total time spent providing and/or coordinating discharge services: Discharge coordination time: Greater than 30 minutes Quality: Stroke Does the patient have a stroke diagnosis?: No Physical Exam Vital Signs: Vital Signs: Last Vital Signs Temp 98.0 F 08/06/21 10:59 Pulse 75 08/06/21 11:14 Resp 18 08/06/21 10:59 BP 142/58 H 08/06/21 11:14 Pulse Ox 96 08/06/21 11:14 Body Mass Index 18.1 Gen: in no acute distress HEENT: sclera anicteric, moist mucus membranes Neck: supple Lungs: clear to auscultation bilaterally Heart: regular rate and rhythm, no murmurs Abd: soft, non-tender, non-distended Ext: no edema Skin: warm/well-perfused Neuro: alert and oriented x3, no pronator drift, no facial droop, no motor deficit, no dysmetria, no dysdiadochokinesia Psych: appropriate affect DS: Data Data Completed and Pending Completed studies during hospitalization [Text1]: Laboratory Results WBC 8.2 X10*3/uL (4.8-10.8) 08/05/21 06:16 WBC Cancelled 08/05/21 06:16 RBC 3.86 X10*6/uL (4.20-5.50) L 08/05/21 06:16 RBC Cancelled 08/05/21 06:16 Hgb 11.7 g/dl (12.0-16.0) L 08/05/21 06:16 Hgb Cancelled 08/05/21 06:16 Hct 35.4 % (37-47) L 08/05/21 06:16 Hct Cancelled 08/05/21 06:16 MCV 91.7 fL (80-98) 08/05/21 06:16 MCV Cancelled 08/05/21 06:16 MCH 30.3 pg (27.0-33.0) 08/05/21 06:16 MCH Cancelled 08/05/21 06:16 MCHC 33.1 g/dl (31.0-35.0) 08/05/21 06:16 MCHC Cancelled 08/05/21 06:16 RDW 13.0 % (11.0-16.0) 08/05/21 06:16 RDW Cancelled 08/05/21 06:16 Plt Count 199 X10*3/uL (160-400) 08/05/21 06:16 Plt Count Cancelled 08/05/21 06:16 MPV 9.5 fL (9.4-12.3) 08/05/21 06:16 MPV Cancelled 08/05/21 06:16 Immature Gran % (Auto) 0.4 % (0.0-0.4) 08/05/21 06:16 Immature Gran % (Auto) Cancelled 08/05/21 06:16 Neut % (Auto) 68.8 % (45-73) 08/05/21 06:16 Neut % (Auto) Cancelled 08/05/21 06:16 Lymph % (Auto) 16.8 % (20-40) L 08/05/21 06:16 Lymph % (Auto) Cancelled 08/05/21 06:16 [place] % (Auto) 11.2 % (2-11) H 08/05/21 06:16 [place] % (Auto) Cancelled 08/05/21 06:16 Eos % (Auto) 2.3 % (0-4) 08/05/21 06:16 Eos % (Auto) Cancelled 08/05/21 06:16 Baso % (Auto) 0.5 % (0-2) 08/05/21 06:16 Baso % (Auto) Cancelled 08/05/21 06:16 Lymph # (Auto) 1.4 X10*3/uL (1.2-4.9) 08/05/21 06:16 Lymph # (Auto) Cancelled 08/05/21 06:16 [place] # (Auto) 0.9 X10*3/uL (0.1-1.2) 08/05/21 06:16 [place] # (Auto) Cancelled 08/05/21 06:16 Eos # (Auto) 0.2 X10*3/uL (0.0-0.4) 08/05/21 06:16 Eos # (Auto) Cancelled 08/05/21 06:16 Baso # (Auto) 0.0 X10*3/uL (0.0-0.2) 08/05/21 06:16 Baso # (Auto) Cancelled 08/05/21 06:16 Abs Immat Gran (auto) 0.03 X10*3/uL (0.00-0.03) 08/05/21 06:16 Abs Immat Gran (auto) Cancelled 08/05/21 06:16 Absolute Neuts (auto) 5.7 X10*3/uL (2.0-8.3) 08/05/21 06:16 Absolute Neuts (auto) Cancelled 08/05/21 06:16 Absolute Nucleated RBC 0.000 X10*3/uL (0.0-0.012) 08/05/21 06:16 Absolute Nucleated RBC Cancelled 08/05/21 06:16 Nucleated RBC % (auto) 0.0 /100WBC (0.0-0.2) 08/05/21 06:16 Nucleated RBC % (auto) Cancelled 08/05/21 06:16 PT 13.5 SEC (9.9-13.0) H 08/03/21 17:34 Whole Blood PT 14.1 sec (11.1-13.5) H 08/03/21 17:30 INR 1.2 (0.9-1.1) H 08/03/21 17:34 Whole Blood INR 1.2 (0.9-1.1) H 08/03/21 17:30 Sodium 141 mmol/L (135-145) 08/05/21 06:16 Potassium 3.8 mmol/L (3.3-5.1) 08/05/21 06:16 Chloride 110 mmol/L (96-108) H 08/05/21 06:16 Carbon Dioxide 24 mmol/L (22-29) 08/05/21 06:16 Anion Gap 11 (12-20) L 08/05/21 06:16 BUN 6 mg/dL (9-16) L 08/05/21 06:16 Creatinine 0.68 mg/dL (0.5-1.4) 08/05/21 06:16 Estim Creat Clear Calc 52.9 08/05/21 06:16 Estimated GFR > 60 08/05/21 06:16 POC Glucose 111 mg/dL (60-115) 08/06/21 10:58 Random Glucose 102 mg/dL (60-115) 08/05/21 06:16 Estimat Average Glucose 97 mg/dL 08/04/21 05:27 Hemoglobin A1c % 5.0 % 08/04/21 05:27 Calcium 8.4 mg/dL (8.4-10.2) 08/05/21 06:16 Total Bilirubin 1.0 mg/dL (0.0-1.0) 08/05/21 06:16 AST 25 U/L (5-31) 08/05/21 06:16 ALT 10 U/L (0-31) 08/05/21 06:16 Alkaline Phosphatase 69 U/L (39-117) 08/05/21 06:16 Troponin I High Sens 7.9 ng/L (<3.5-17.0) D 08/04/21 05:27 Total Protein 5.3 g/dL (6.5-8.0) L 08/05/21 06:16 Albumin 3.5 g/dL (3.5-5.0) 08/05/21 06:16 Triglycerides 72 mg/dL 08/03/21 19:09 Cholesterol 133 mg/dL 08/03/21 19:09 LDL Cholesterol, Calc 60 mg/dl 08/03/21 19:09 HDL Cholesterol 59 mg/dL 08/03/21 19:09 Hold Red Top See Note 08/03/21 19:09 Urine Color YELLOW 08/05/21 12:00 Urine Appearance HAZY 08/05/21 12:00 Urine pH 6.0 (5.0-8.0) 08/05/21 12:00 Ur Specific [place] <= 1.005 (1.005-1.025) 08/05/21 12:00 Urine Protein NEG MG/DL (NEG-TRACE) 08/05/21 12:00 Urine Glucose (UA) NEG MG/DL (NEG) 08/05/21 12:00 Urine Ketones NEG MG/DL (NEG) 08/05/21 12:00 Urine Blood 2+ (NEG) H 08/05/21 12:00 Urine Nitrite NEG (NEG) 08/05/21 12:00 Ur Leukocyte Esterase 2+ (NEG) H 08/05/21 12:00 Urine RBC 5-9 /HPF (0) H 08/05/21 12:00 Urine WBC 15-29 /HPF (0-4) H 08/05/21 12:00 Urine WBC Clumps NOTED 08/05/21 12:00 Ur Squamous Epith Cells TRACE /LPF 08/05/21 12:00 Urine Bacteria 1+ /LPF 08/05/21 12:00 COVID-19 (SHERI) Negative (Negative) 08/03/21 18:59 COVID-19 Clin Com See Note 08/03/21 18:59 Impressions Chest X-Ray 08/03/21 17:22 IMPRESSION: Unremarkable examination. Head/Neck CTA 08/03/21 17:23 IMPRESSION: Relatively normal CT angiogram of the head and neck. No significant stenosis or vessel occlusion. Severe left maxillary sinus disease. Advanced degenerative changes of the right temporomandibular joint. Imaging findings reported to Dr. Lara at 6:15 PM on 08/03/2021. Brain MRI 08/03/21 17:48 IMPRESSION: Small acute infarct in the right cerebellar hemisphere. Head CT 08/04/21 12:00 IMPRESSION: Small lacunar infarct right cerebellar lobe unchanged. CT otherwise normal, no intracranial hemorrhage. TTE 08/06/21 Small PFO with mobile interatrial septum and right to left ? ? shunting noted.? EEG 08/06/21 No significant abnormality noted on this EEG. Discharge Plan Discharge Patient Disposition: Home, Self-Care Discharge Diagnosis: embolic stroke, small patent foramen ovale, urinary tract infection Referrals: Elida Hollis, HERMELINDA, [facility] [Speech Therapist] - 1 Week Kimberlyn Lester MD [Physician] - 1 Week Chris Lincoln MD [Physician] - 1 Week Jennifer Sylvester MD [Primary Care Provider] - 1 Week Discharge Medications: New Eliquis 5 mg Tablet 5 mg PO BID Qty: 60 RF: 0 lidocaine [Lidocaine Pain Relief] 4 % Adhesive Patch,Medicated 1 patch transdermal DAILY Qty: 30 RF: 0 cefuroxime axetil 250 mg tablet 250 mg PO BID Qty: 6 RF: 0 Continued fluticasone propion-salmeterol [Advair HFA] 115-21 mcg/actuation HFA aerosol inhaler 2 puff PO BID Qty: 12 RF: 3 albuterol sulfate 2.5 mg /3 mL (0.083 %) solution for nebulization 2.5 mg inhalation Q6H PRN (Reason: shortness of breath or wheezing) 30 Days Qty: 270 RF: 11 azithromycin 250 mg tablet 250 mg PO 3XW Qty: 12 RF: 3 atorvastatin 40 mg tablet 40 mg PO DAILY RF: 0 prochlorperazine maleate [Compazine] 10 mg tablet 10 mg PO Q8H PRN (Reason: Nausea) RF: 0 alprazolam [Xanax] 0.5 mg tablet 0.5 mg PO BID PRN (Reason: Anxiety) RF: 0 escitalopram oxalate [Lexapro] 10 mg tablet 10 mg PO DAILY RF: 0 vitamin B complex [B Complex-Vitamin B12] Tablet 1 tab PO DAILY RF: 0 levocetirizine 5 mg tablet 5 mg PO DAILY RF: 0 Discontinued aspirin 81 mg tablet,delayed release (DR/EC) 81 mg PO DAILY RF: 0 Discharge Orders: Discharge Order (Routine); Ordered 08/06/21 Ordered By: Souleymane Stearns Diet: advance to usual diet, low salt diet and other Activity on Discharge: As tolerated Stand Alone Forms: Patient Portal Discharge page Care Plan Goals: Prevent future strokes Cure of UTI Health Concerns: Stroke Small patent foramen ovale Urinary tract infection Plan of Treatment: Take apixaban 5 mg twice daily as blood thinner to prevent strokes; stop aspirin Continue atorvastatin 40 mg daily Mediterranean diet Follow up with: Neurology in 2 weeks, Cardiology in 2 weeks, Primary Care in 1 week: [facility] [address], [address], [place] [address] [facility] [address] [place] [address], [address] [place] [address] Outpatient speech therapy: [facility]: [address] [place] [address] Dr Trinh [place] [id number] For UTI, take cefuroxime 250 mg 2x a day for 3 more days Assessment: See Discharge Summary Patient Instructions: Stroke (DC), Mediterranean Diet (DC) Discharge Date/Time: 08/06/21 14:50
[2021-08-06] MEDS: cefTRIAXone sodium 1 GM in 0.9 % Sodium Chloride 50 ML IV (13:25)
--- NOTE | 2021-08-06 13:37 | MHC.CM.PN ---
Patient has been medically cleared for dc to home today, no services. Last IMM addressed on 08/04/2021.
--- NOTE | 2021-08-06 18:26 | CA_ITS ---
Transthoracic Echocardiogram Patient (Last, First, Middle): Adelina Tavarez A Gender: Female Date of : 1945 Age: 75 Procedure Date: 08/06/2021 Procedure Type: Transthoracic Echocardiogram Location: [facility] Height: 152.4 cm Weight: 49.44 kg BSA: 1.44 m2 Heart Rate: bpm Anchorer: HALEY Ortiz MD: Souleymane Stearns MD Symptoms: CVA s/p tPA Study Quality: Good Conclusions: - Small PFO with mobile interatrial septum and right to left shunting noted. Findings Left Ventricle Normal left ventricular cavity size. The left ventricular systolic function is normal. The visually estimated ejection fraction is between 55-60%. There is no evidence of regional wall motion abnormalities. Atria There is a mobile atrial septum noted. Contrast study for right to left shunting is mildly positive with Valsalva maneuver. Patent foramen ovale detected using by contrast. Updated in Other Vendor System with Status of Final Perfecto Dixon MD electronically signed on 08/06/2021 11:45:44 AM with status of Final
== END 2021-08-06 14:50 | disposition home or self-care (01) | DRG 62 ==
LOC: HO.ED 18:27 → HO.EDOVER 18:51 → HO.ICU 18:54 → HO.IMC 08-04 18:44
PROVIDERS: Physician Assistant Medical; Admitting Provider Internal Medicine Pulmonary Disease; Emergency Provider Internal Medicine; PCP Internal Medicine; Visit Provider Family Medicine
DX: I63.411 Cerebral infarction due to embolism of right middle cerebral artery (principal); N39.0 Urinary tract infection, site not specified; Q21.1 Atrial septal defect; K21.9 Gastro-esophageal reflux disease without esophagitis; Z20.822 Contact with and (suspected) exposure to COVID-19; R29.702 NIHSS score 2; R47.01 Aphasia; E78.5 Hyperlipidemia, unspecified; F39 Unspecified mood [affective] disorder; I25.10 Atherosclerotic heart disease of native coronary artery without angina pectoris; J44.9 Chronic obstructive pulmonary disease, unspecified; Z88.0 Allergy status to penicillin; Z88.5 Allergy status to narcotic agent; Z88.6 Allergy status to analgesic agent; Z79.01 Long term (current) use of anticoagulants; Z79.82 Long term (current) use of aspirin; Z79.899 Other long term (current) drug therapy
CPT/HCPCS: 36415; 70450; 70496; 70498; 70551; 71045; 80048; 80053; 80061; 81001; 82947; 83036; 84484; 85025; 85610; 87086; 87635; 92507; 92523; 92610; 93005; 93308; 95816; 97116; 97161; 97165; 99284; 99285; J0696; J2997; Q9967

== ENCOUNTER → 2021-08-06 | Outpatient (REF) | payer MEDICARE, OTHER, SELFPAY ==
--- NOTE | 2021-08-06 14:51 | HM_ITS ---
Conclusion: 1. Patient was monitored for total period of 13 days and 17 hours 2. Baseline of normal sinus rhythm with average heart rate of 70 beats per minute 3. No episodes of atrial fibrillation noted 4. 2 episodes of nonsustained VT noted, longest 5 beats 5. 17 total episodes of supraventricular runs, longest lasting 9 beats, not suggestive atrial fibrillation 6. Total of 2159 PACs accounting for 0.16% of total beats accounting for rare PACs 7. No patient reported events MTDD
== END ==
LOC: HO.CARD
PROVIDERS: Visit Provider Internal Medicine
DX: I63.9 Cerebral infarction, unspecified (principal); I48.0 Paroxysmal atrial fibrillation
CPT/HCPCS: 93246

== ENCOUNTER → 2021-08-15 08:46 | Outpatient (BNVA) | payer MEDICARE, OTHER, SELFPAY | PROVIDERS: PCP Internal Medicine; Visit Provider Hospitalist | DX: J41.0 Simple chronic bronchitis (principal); J01.00 Acute maxillary sinusitis, unspecified; R91.8 Other nonspecific abnormal finding of lung field; R05.9 Cough, unspecified; R06.02 Shortness of breath | CPT/HCPCS: 99212 ==

== ENCOUNTER → 2021-08-28 08:41 | Outpatient (BNVA) | payer MEDICARE, OTHER, SELFPAY | PROVIDERS: PCP Internal Medicine; Visit Provider Nurse Practitioner Family | DX: M81.0 Age-related osteoporosis without current pathological fracture (principal); M47.812 Spondylosis without myelopathy or radiculopathy, cervical region; M25.50 Pain in unspecified joint | CPT/HCPCS: 99212 ==

== ENCOUNTER 2021-08-29 10:45 | Outpatient (REF) | payer MEDICARE, OTHER, SELFPAY ==
[2021-08-29 12:34] LABS: Vitamin D 25-OH Total 31.4 ng/mL (>30)
== END 2021-08-29 10:46 | disposition home or self-care (01) ==
LOC: HO.LAB 10:45
PROVIDERS: PCP Internal Medicine; Visit Provider Nurse Practitioner Family
DX: M81.0 Age-related osteoporosis without current pathological fracture (principal)
CPT/HCPCS: 36415; 82306

== ENCOUNTER → 2021-09-03 07:59 | Outpatient (BNVA) | payer MEDICARE, OTHER, SELFPAY | PROVIDERS: PCP Internal Medicine; Referring Provider Internal Medicine; Visit Provider Internal Medicine | DX: I25.10 Atherosclerotic heart disease of native coronary artery without angina pectoris (principal); I63.9 Cerebral infarction, unspecified; G46.4 Cerebellar stroke syndrome; R47.02 Dysphasia; J41.0 Simple chronic bronchitis; R00.2 Palpitations; Z88.8 Allergy status to other drugs, medicaments and biological substances; Z79.899 Other long term (current) drug therapy | CPT/HCPCS: 99212 ==

== ENCOUNTER 2021-09-12 08:28 | Outpatient (REF) | payer MEDICARE, OTHER, SELFPAY ==
--- NOTE | ~2021-09-12 | CT_ITS ---
EXAMINATION: CT SINUS WITHOUT CONTRAST CLINICAL INFORMATION: Sinonasal polyps. COMPARISON: 05/04/2018 TECHNIQUE: CT paranasal sinuses with coronal and sagittal reconstructions. This CT examination was performed using dose optimization techniques as appropriate, variously including the following: *Automated exposure control *Adjustment of mA and/or kV according to patient size (this includes techniques or standardized protocols for targeted exams where dose is matched to indication/reason for exam; i.e. extremities or head) *Use of iterative reconstruction technique DLP: 103 mGy-cm FINDINGS: The patient is status post previous sinus surgery with partial ethmoidectomies bilaterally and removal of medial sen of the maxillary sinuses. The superior turbinates have been resected bilaterally. The right maxillary sinus is well aerated. The left maxillary sinus has mucosal thickening present which is more prominent than on prior study without bony expansion or destruction. The mucosal thickening is greater than 9 mm in diameter. There is again noted to be some soft tissue opacification of some superior anterior ethmoid air cells as well as mild mucosal thickening within the left frontal sinus of less than 2 mm in diameter. The sphenoid sinuses are well aerated. Calcified nasal septum is essentially midline in position with some mucosal thickening. No significant nasal polyps identified. ADDITIONAL RELEVANT FINDINGS: There is degenerative change of the right temporomandibular joint with some joint space narrowing, spurring, and subchondral cyst formation. Pterygoid plates intact. The orbits and skull base soft tissues are unremarkable. The middle ear cavities and mastoid air cells are clear. Limited evaluation demonstrates no acute intracranial findings. CT/CT sinus wo con IMPRESSION: Postsurgical change of the paranasal sinuses, as described. Some mildly increased opacification of the left maxillary sinus without air-fluid levels identified. Chronic stable disease elsewhere, as described. Right temporomandibular joint degenerative change.
== END 2021-09-12 08:29 | disposition home or self-care (01) ==
LOC: HO.CT 08:28
PROVIDERS: Visit Provider Otolaryngology
DX: J33.8 Other polyp of sinus (principal)
CPT/HCPCS: 70486

== ENCOUNTER 2021-09-14 06:06 | Day surgery (SDC) | payer MEDICARE, OTHER, SELFPAY ==
[2021-09-14 06:23] VITALS: BMI 20.5
[2021-09-14 06:51] VITALS: BP 124/57; PULSE 76; RESP 16; TEMP 37; O2SAT 95
[2021-09-14] MEDS: Lactated Ringers 1,000 ML 50 ML IVCONT (06:59)
--- NOTE | 2021-09-14 07:32 | CA_ITS ---
Transesophageal Echocardiogram Patient (Last, First, Middle): Adelina Tavarez A Gender: Female Date of : 1945 Age: 75 Procedure Date: 09/14/2021 Procedure Type: Transesophageal Echocardiogram Location: OP Height: 157.48 cm Weight: kg Makeup Sales Consultant: Referring MD: Chris Lincoln MD Symptoms: I63.9 - Cerebral infarction, unspecified, BUBBLE TO PERFORM Conclusion: ??? Patent foramen ovale with intermittent [id number]-[id number] shunting. Findings Procedure Information Consent was obtained prior to the procedure. The adult 3D probe was passed with no difficulty. This was a technically good study. Left Ventricle Normal left ventricular cavity size. The left ventricular systolic function is normal. The visually estimated ejection fraction is between 55-60%. There is no evidence of regional wall motion abnormalities. Right Ventricle Normal right ventricular cavity size and systolic function. Atria Left atrial appendage is small in size but within limits of visualization, no obvious thrombus or other abnormalities. Interatrial septum is bulging towards the right but not clearly aneurysmal. Visually there is evidence of patent foramen ovale; there is also color Doppler suggestion of right to left shunt. However bubble study is negative for shunting x3; including with abdominal pressure for Valsalva. Aortic Valve There is a normal trileaflet aortic valve. There is no aortic valve stenosis. There is no aortic valve regurgitation. Mitral Valve The mitral valve appears normal. There is trace mitral valve regurgitation. There is no mitral valve stenosis. Pulmonic Valve The pulmonic valve was not well visualized. Tricuspid Valve Normal tricuspid valve structure. There is mild tricuspid valve regurgitation. Great Vessels The aortic annulus, sinuses of valsalva, and asc aorta are normal in size. No significant plaque noted. Venous The inferior vena cava was not well visualized. Pericardium/Pleural There is a trivial pericardial effusion. Prior Study Comparison No significant change compared to prior study dated: 08/06/2021. Updated by Chris Lincoln on 02:31 PM with Status of Final Chris Lincoln MD electronically signed on 09/14/2021 2:31:17 PM with status of Final
--- NOTE | 2021-09-14 07:46 | HO.ANESPROP2 ---
HPI - Anesthesia Eval Consult details Narrative: h/o recent ischemic stroke [facility] Active Problems Active Problems: All Active Problems (Updated 09/07/21 @ 12:07 by Jessica Sandoval RN) Polyarthralgia (Acute) Cervical spondylosis (Acute) Suture reaction (Acute) Dermatitis (Acute) Shortness of breath (Acute) Precordial chest pain (Acute) Aphasia due to acute stroke (Acute) Embolic stroke (Acute) Urinary tract infection (Acute) Patent foramen ovale (Acute) Ischemic stroke (Acute) Osteoporosis (Acute) Sinusitis (Acute) URI (upper respiratory infection) (Acute) Renal cyst (Acute) Dyspnea (Acute) Mycobacterial disease (Acute) GERD (gastroesophageal reflux disease) (Acute) Cough (Acute) Pulmonary nodules (Acute) COPD (chronic obstructive pulmonary disease) (Acute) Past Medical History Medical History (Updated 09/07/21 @ 12:07 by Jessica Sandoval RN) Acute cerebral infarction Anxiety Arthritis of neck Atherosclerotic cardiovascular disease Cerebellar stroke, acute Cerebral microvascular disease Cerebrovascular accident COPD (chronic obstructive pulmonary disease) Cough Dyspnea GERD (gastroesophageal reflux disease) Microscopic hematuria Mycobacterial disease Osteoporosis Overactive bladder Palpitation PONV (postoperative nausea and vomiting) Pulmonary nodules Renal cyst Sinusitis URI (upper respiratory infection) Urinary urgency Family History Family History Son No problems noted. Family history of problems with anesthesia: No Surgical History Surgical History (Updated 09/07/21 @ 12:07 by Jessica Sandoval RN) History of bladder suspension procedure History of esophagogastroduodenoscopy (EGD) History of surgery Hx of colonoscopy S/P cervical spinal fusion History of Problems with Anesthesia: No Social History Social History Household Members: Spouse Housing: Condominium Do you presently have visiting nurse or other home services: No Alcohol intake: never Patient Tobacco Use Status: Never used Tobacco Second Hand Smoke Exposure: Yes Use of substances other than those prescribed or required for medical reasons: No Are you DNR?: No Advance Directives: No Advance Directives Information Provided: Yes Advance Directives Date on File: 08/16/20 Recently lost weight without trying: No Nutrition Risks: No Nutritional Risk service: No Current occupational status: retired Meds Allergies Allergy/AdvReac Type Severity Reaction Status Date / Time naproxen [From NAPROSYN] Allergy Severe sensitivity Verified 08/28/21 09:03 niacin Allergy Severe RASH Verified 08/28/21 09:03 [From NIASPAN EXTENDED-RELEASE] Penicillins [PENICILLINS] Allergy Severe ITCHING Verified 08/28/21 09:03 codeine [CODEINE] Allergy Mild ITCHING Verified 08/28/21 09:03 fluconazole [From DIFLUCAN] Allergy Mild sensitivity Verified 08/28/21 09:03 gatifloxacin [From TEQUIN] Allergy Mild sensitivity Verified 08/28/21 09:03 levofloxacin [From Levaquin] Allergy Mild sensitivity Verified 08/28/21 09:03 quinidine [QUINIDINE] Allergy Mild sensitivity Verified 08/28/21 09:03 Sulfa (Sulfonamide Allergy Mild RASH Verified 08/28/21 09:03 Antibiotics) [SULFA (SULFONAMIDE ANTIBIOTICS)] terfenadine [From SELDANE] Allergy Mild sensitivity Verified 08/28/21 09:03 tetracycline [TETRACYCLINE] Allergy Mild sensitivity Verified 08/28/21 09:03 cefaclor [From CECLOR] AdvReac Severe UNKNOWN Verified 08/28/21 09:03 clarithromycin [From BIAXIN] AdvReac Mild sensitivity Verified 08/28/21 09:03 topiramate [From TOPAMAX] AdvReac Mild STOMACH Verified 08/28/21 09:03 UPSET augmentin Allergy Mild sensitivity Uncoded 08/28/21 09:03 From NEXIUM Allergy Mild HIVES Uncoded 08/28/21 09:03 From PERCOCET Allergy Mild ITCHING Uncoded 08/28/21 09:03 From ULTRACET Allergy Mild RASH Uncoded 08/28/21 09:03 From VICODIN Allergy Mild RASH Uncoded 08/28/21 09:03 From LIPITOR AdvReac Mild HEADACHES Uncoded 08/28/21 09:03 From SINGULAIR AdvReac Mild HEADACHES Uncoded 08/28/21 09:03 Active Medications: Current Medications Acetaminophen (Acetaminophen 325 Mg Tablet) 650 mg PO ONCE PRN PRN Reason: Pain, Mild (Pain Scale 1-3) Lactated Ringer's (Lr) 1,000 mls @ 50 mls/hr IVCONT .Q20H ANNY Oxycodone HCl (Oxycodone Hcl Immed Release 5 Mg Tablet) 5 mg PO ONCE PRN PRN Reason: Pain, Severe (Pain Scale 7-10) Home Medications Medication Instructions Recorded Confirmed Last Taken Type alprazolam 0.5 mg tablet (Xanax) 0.5 mg PO BID PRN 08/28/20 09/07/21 Unknown History atorvastatin 40 mg tablet 40 mg PO DAILY 08/28/20 09/07/21 Unknown History escitalopram oxalate 10 mg tablet 10 mg PO DAILY 08/28/20 09/07/21 09/14/21 04:45 History (Lexapro) prochlorperazine maleate 10 mg 10 mg PO Q8H PRN 08/28/20 09/07/21 Unknown History tablet (Compazine) vitamin B complex (B 1 tab PO DAILY 08/28/20 09/07/21 Unknown History Complex-Vitamin B12) levocetirizine 5 mg tablet 5 mg PO DAILY 06/12/21 09/07/21 Unknown History zoledronic acid 5 mg/100 mL in IV .once a year ml 08/28/21 09/03/21 Unknown History mannitol 5 %-water intravenous piggybck (Reclast) Exam Exam Date and Time: September 14, 2021 0746 Height,Weight and Vital Signs: Height 5 ft Weight 47.627 kg Last Vital Signs Temp 98.6 F 09/14/21 06:51 Pulse 76 09/14/21 06:51 Resp 16 09/14/21 06:51 BP 124/57 L 09/14/21 06:51 Pulse Ox 95 09/14/21 06:51 Airway Mallampati Class: II TM Dist: >3cm Neck ROM: Full Partial: Upper Loose/Missing/Broken Teeth: Yes Heart: [id number] Lungs: cta b/l Assessment and Plan Assessment Anesthesia Assessment: Anesthesia Plan Discussed, PAT Visit and Chart Reviewed Final Anesthetic Review Family History of Problems with Anesthesia: No History of Problems with Anesthesia: No NPO: Yes ASA Class: III Final Preanesthetic Review: No Changes in Pt Med Stat, Meds/Allgs Chart Reviewed, Consent Obtained/Reviewed and Anes Risks/Benef Reviewed Patient Risk: Intermediate Procedure Risk: Low Assessment/Block/Sedation in SS: Assess/Block/Sedation-SS Anesthetic Plan Anesthetic Plan: MAC: Disposition: Standard PACU
--- NOTE | 2021-09-14 08:03 | MHC.SHP ---
Pre-Procedural Eval Section A Date of Service: 09/14/21 The patient is an INPATIENT: No Section B Chief Complaint: Cerebral infarction Allergies: Allergies Allergy/AdvReac Type Severity Reaction Status Date / Time naproxen [From NAPROSYN] Allergy Severe sensitivity Verified 08/28/21 09:03 niacin Allergy Severe RASH Verified 08/28/21 09:03 [From NIASPAN EXTENDED-RELEASE] Penicillins [PENICILLINS] Allergy Severe ITCHING Verified 08/28/21 09:03 codeine [CODEINE] Allergy Mild ITCHING Verified 08/28/21 09:03 fluconazole [From DIFLUCAN] Allergy Mild sensitivity Verified 08/28/21 09:03 gatifloxacin [From TEQUIN] Allergy Mild sensitivity Verified 08/28/21 09:03 levofloxacin [From Levaquin] Allergy Mild sensitivity Verified 08/28/21 09:03 quinidine [QUINIDINE] Allergy Mild sensitivity Verified 08/28/21 09:03 Sulfa (Sulfonamide Allergy Mild RASH Verified 08/28/21 09:03 Antibiotics) [SULFA (SULFONAMIDE ANTIBIOTICS)] terfenadine [From SELDANE] Allergy Mild sensitivity Verified 08/28/21 09:03 tetracycline [TETRACYCLINE] Allergy Mild sensitivity Verified 08/28/21 09:03 cefaclor [From CECLOR] AdvReac Severe UNKNOWN Verified 08/28/21 09:03 clarithromycin [From BIAXIN] AdvReac Mild sensitivity Verified 08/28/21 09:03 topiramate [From TOPAMAX] AdvReac Mild STOMACH Verified 08/28/21 09:03 UPSET augmentin Allergy Mild sensitivity Uncoded 08/28/21 09:03 From NEXIUM Allergy Mild HIVES Uncoded 08/28/21 09:03 From PERCOCET Allergy Mild ITCHING Uncoded 08/28/21 09:03 From ULTRACET Allergy Mild RASH Uncoded 08/28/21 09:03 From VICODIN Allergy Mild RASH Uncoded 08/28/21 09:03 From LIPITOR AdvReac Mild HEADACHES Uncoded 08/28/21 09:03 From SINGULAIR AdvReac Mild HEADACHES Uncoded 08/28/21 09:03 Plan I have reviewed the history and physical and performed a pertinent physical examination on my patient. No changes have occurred unless specified.
[2021-09-14 08:57] VITALS: BP 110/42; PULSE 93; RESP 20; TEMP 37.4; O2SAT 98
[2021-09-14 09:12] VITALS: BP 119/47; PULSE 80; RESP 20; TEMP 37.4; O2SAT 94
== END 2021-09-14 09:40 | disposition home or self-care (01) ==
PROVIDERS: PCP Internal Medicine; Visit Provider Internal Medicine
PROC: (CPT 93312; principal; 2021-09-14 08:00)
DX: I63.9 Cerebral infarction, unspecified (principal); I25.10 Atherosclerotic heart disease of native coronary artery without angina pectoris; J44.9 Chronic obstructive pulmonary disease, unspecified; R06.00 Dyspnea, unspecified; K21.9 Gastro-esophageal reflux disease without esophagitis; R00.2 Palpitations; R91.8 Other nonspecific abnormal finding of lung field; Z88.0 Allergy status to penicillin; Z88.2 Allergy status to sulfonamides; Z88.8 Allergy status to other drugs, medicaments and biological substances; Z88.1 Allergy status to other antibiotic agents
CPT/HCPCS: 93312; J2405

== ENCOUNTER 2021-09-20 08:20 | Outpatient (REF) | payer MEDICARE, OTHER, SELFPAY ==
--- NOTE | ~2021-09-20 | MM_ITS ---
EXAMINATION: BONE DENSITOMETRY CLINICAL INDICATION: Age-related osteoporosis without current pathological fracture. COMPARISON: Baseline BD dated 09/04/2006. TECHNIQUE: Using a [employer] DXA System (software version: 13.1) manufactured by [email or web address], dual-energy x-ray absorptiometry was performed of the spine and left hip. The images are of good technical quality. Summary results are attached. FINDINGS: AP SPINE L1-L4: There is lumbar curvature and degenerative changes lumbar spine which may cause overestimation of the bone mineral density. Current: BMD 1.077 g/cm2, Z-score 1.5, T-score -0.9, normal, 22.1% increase from baseline (<5% change is not significant). Baseline: BMD 0.882 g/cm2. LEFT FEMUR, NECK: Current: BMD 0.599 g/cm2, Z-score -0.9, T-score -3.2, osteoporosis. Baseline: BMD 0.572 g/cm2. LEFT FEMUR, TOTAL: Current: BMD 0.672 g/cm2, Z-score -0.6, T-score -2.7, osteoporosis, 0.7% decrease from baseline (<5% change is not significant). Baseline: BMD 0.677 g/cm2. IDENTIFIED RISK FACTORS: Early menopause, secondary osteoporosis, osteoporosis. HISTORY OF FRACTURE: None listed. MEDICATIONS: Calcium supplements or multivitamin, vitamin D, bisphosphonate. MM/XR DEXA axial skeleton IMPRESSION: 1. DIAGNOSIS: Osteoporosis based on the lowest T-score value of -3.2 in the femoral neck applying World Health Organization criteria. 2. 10-YEAR FRACTURE RISK PREDICTION, FRAX: According to the guidelines, FRAX calculation should only be performed on patients in the osteopenia bone density category. 3. Treatment Recommendations: NOF guidelines recommend consideration for treatment in postmenopausal women and men age 50 and older presenting with the following: -A hip or vertebral (clinical or morphometric) fracture. -T-score less than or equal to -2.5 at the femoral neck or spine after appropriate evaluation to exclude secondary causes. -Low bone mass at the hip or spine and a 10-year fracture probability by FRAX of greater than or equal to 3% for hip fracture or greater than or equal to 20% for major osteoporotic fracture based on the [place] adapted WHO algorithm. 4. Other Recommendations: All treatment decisions require clinical judgment and consideration of individual patient factors, including patient preferences, comorbidities, previous drug use, risk factors not captured in the FRAX model (e.g. frailty, falls, vitamin D deficiency, increased bone turnover, interval significant decline in bone density) and possible under or overestimation of fracture risk by FRAX. Additional medical evaluation for secondary cause of low bone mineral density may be appropriate. FUTURE SCAN RECOMMENDATION: People with diagnosed cases of osteoporosis or at high risk for fracture should have regular bone mineral density tests. For patients eligible for Medicare, routine testing is allowed once every 2 years. The testing frequency can be increased to one year for patients who have rapidly progressing disease, those who are receiving or discontinuing medical therapy to restore bone mass, or have additional risk factors.
== END 2021-09-20 08:21 | disposition home or self-care (01) ==
LOC: HO.MAMMO 08:20
PROVIDERS: Visit Provider Nurse Practitioner Family
DX: M81.0 Age-related osteoporosis without current pathological fracture (principal)
CPT/HCPCS: 77080

== ENCOUNTER → 2021-09-26 08:48 | Outpatient (BNVA) | payer MEDICARE, OTHER, SELFPAY | PROVIDERS: PCP Internal Medicine; Referring Provider Internal Medicine; Visit Provider Internal Medicine | DX: I25.10 Atherosclerotic heart disease of native coronary artery without angina pectoris (principal); I69.398 Other sequelae of cerebral infarction | CPT/HCPCS: 99212 ==

== ENCOUNTER → 2021-10-17 08:44 | Outpatient (BNVA) | payer MEDICARE, OTHER, SELFPAY | PROVIDERS: PCP Internal Medicine; Visit Provider Hospitalist | DX: J41.0 Simple chronic bronchitis (principal); R06.02 Shortness of breath; R91.8 Other nonspecific abnormal finding of lung field | CPT/HCPCS: 99212 ==

== ENCOUNTER 2021-11-09 10:25 | Outpatient (REF) | payer MEDICARE, OTHER, SELFPAY ==
--- NOTE | ~2021-11-09 | XR_ITS ---
EXAMINATION: LUMBAR SPINE AND LEFT HIP. CLINICAL INFORMATION: Left hip pain. Low back pain COMPARISON: None TECHNIQUE: 2 views left hip. 3 views lumbar spine. FINDINGS: Left hip: There is no visible acute fracture, dislocation or subluxation seen. The soft tissues are normal. Lumbar spine: There is maintained lumbar lordosis. The vertebral heights and alignment is normal. There is loss of L2-L2 disc height with endplate spondylosis and spurring. There is mild levoscoliosis of lumbar spine. No acute fracture or lytic process seen. The paravertebral soft tissues are normal. XR/XR lumbar spine 2-3V IMPRESSION: Mild levoscoliosis lumbar spine with degenerative disc changes L2-L3 and L3-L4 disc levels. No visible acute fracture or dislocation seen.
--- NOTE | ~2021-11-09 | XR_ITS ---
EXAMINATION: LUMBAR SPINE AND LEFT HIP. CLINICAL INFORMATION: Left hip pain. Low back pain COMPARISON: None TECHNIQUE: 2 views left hip. 3 views lumbar spine. FINDINGS: Left hip: There is no visible acute fracture, dislocation or subluxation seen. The soft tissues are normal. Lumbar spine: There is maintained lumbar lordosis. The vertebral heights and alignment is normal. There is loss of L2-L2 disc height with endplate spondylosis and spurring. There is mild levoscoliosis of lumbar spine. No acute fracture or lytic process seen. The paravertebral soft tissues are normal. XR/XR hip LT min 2V IMPRESSION: Mild levoscoliosis lumbar spine with degenerative disc changes L2-L3 and L3-L4 disc levels. No visible acute fracture or dislocation seen.
== END 2021-11-09 10:26 | disposition home or self-care (01) ==
LOC: HO.XRAY 10:25
PROVIDERS: PCP Internal Medicine; Visit Provider Nurse Practitioner Family
DX: M25.552 Pain in left hip (principal); M54.50 Low back pain, unspecified
CPT/HCPCS: 72100; 73502

== ENCOUNTER → 2021-11-26 09:28 | Outpatient (BNVA) | payer MEDICARE, OTHER, SELFPAY | PROVIDERS: PCP Internal Medicine; Visit Provider Anesthesiology | DX: M47.812 Spondylosis without myelopathy or radiculopathy, cervical region (principal); M50.30 Other cervical disc degeneration, unspecified cervical region | CPT/HCPCS: 99212 ==

== ENCOUNTER → 2021-12-05 08:03 | Outpatient (BNVA) | payer MEDICARE, OTHER, SELFPAY | PROVIDERS: PCP Internal Medicine; Visit Provider Anesthesiology | DX: M47.812 Spondylosis without myelopathy or radiculopathy, cervical region (principal); M50.30 Other cervical disc degeneration, unspecified cervical region | CPT/HCPCS: Q3014 ==

== ENCOUNTER → 2021-12-17 13:56 | Outpatient (BNVA) | payer MEDICARE, OTHER, SELFPAY | PROVIDERS: PCP Internal Medicine; Visit Provider Anesthesiology | DX: M47.812 Spondylosis without myelopathy or radiculopathy, cervical region (principal); M50.30 Other cervical disc degeneration, unspecified cervical region | CPT/HCPCS: 99212; J3300 ==

== ENCOUNTER 2021-12-19 08:22 | Outpatient (REF) | payer MEDICARE, OTHER, SELFPAY | END 2021-12-19 08:23 | disposition home or self-care (01) | LOC: HO.LAB 08:22 | PROVIDERS: PCP Internal Medicine; Visit Provider Nurse Practitioner Family | DX: Z13.89 Encounter for screening for other disorder (principal) ==

== ENCOUNTER → 2022-01-01 08:01 | Outpatient (BNVA) | payer MEDICARE, OTHER, SELFPAY | PROVIDERS: PCP Internal Medicine; Referring Provider Internal Medicine; Visit Provider Internal Medicine | DX: I25.10 Atherosclerotic heart disease of native coronary artery without angina pectoris (principal); Z86.73 Personal history of transient ischemic attack (TIA), and cerebral infarction without residual deficits; Z79.01 Long term (current) use of anticoagulants; Z79.899 Other long term (current) drug therapy | CPT/HCPCS: 99212 ==

== ENCOUNTER → 2022-01-15 11:10 | Outpatient (BNVA) | payer MEDICARE, OTHER, SELFPAY | PROVIDERS: PCP Internal Medicine; Visit Provider Nurse Practitioner Family | DX: M47.812 Spondylosis without myelopathy or radiculopathy, cervical region (principal); M25.50 Pain in unspecified joint; M81.0 Age-related osteoporosis without current pathological fracture; L98.9 Disorder of the skin and subcutaneous tissue, unspecified | CPT/HCPCS: 99212 ==

== ENCOUNTER 2022-01-21 08:36 | Outpatient (REF) | payer MEDICARE, OTHER, SELFPAY ==
[2022-01-21 10:31] LABS: Alanine Aminotransferase 9 U/L (0-31); Albumin Level 3.9 g/dL (3.5-5.0); Alkaline Phosphatase 64 U/L (39-117); Anion Gap 10 (12-20); Aspartate Amino Transferase 15 U/L (5-31); Bilirubin Total 1.4 mg/dL (0.0-1.0); Blood Urea Nitrogen 8 mg/dL (9-16); Calcium 9.5 mg/dL (8.4-10.2); Carbon Dioxide 27 mmol/L (22-29); Chloride 107 mmol/L (96-108); Estimated Glomerular Filt Rate > 60; Glucose Random 77 mg/dL (60-115); Potassium 4.1 mmol/L (3.3-5.1); Sodium 140 mmol/L (135-145); Total Protein 5.8 g/dL (6.5-8.0)
[2022-01-21 10:54] LABS: Vitamin D 25-OH Total 28.5 ng/mL (>30)
== END 2022-01-21 08:37 | disposition home or self-care (01) ==
LOC: HO.LAB 08:36
PROVIDERS: PCP Internal Medicine; Visit Provider Nurse Practitioner Family
DX: M81.0 Age-related osteoporosis without current pathological fracture (principal)
CPT/HCPCS: 36415; 80053; 82306

== ENCOUNTER → 2022-01-22 12:51 | Outpatient (BNVA) | payer MEDICARE, OTHER, SELFPAY | PROVIDERS: PCP Internal Medicine; Visit Provider Nurse Practitioner Family | DX: M81.0 Age-related osteoporosis without current pathological fracture (principal) | CPT/HCPCS: 96372; J0897 ==

== ENCOUNTER 2022-02-08 07:23 | Outpatient (REF) | payer MEDICARE, OTHER, SELFPAY ==
[2022-02-08 07:51] LABS: Hematocrit 37.3 % (37.0-47.0); Hemoglobin 12.1 g/dl (12.0-16.0); Mean Corpuscular HGB Conc 32.4 g/dl (31.0-35.0); Mean Corpuscular Hemoglobin 30.7 pg (27.0-33.0); Mean Corpuscular Volume 94.7 fL (80.0-98.0); Platelet Count 209 X10*3/uL (160-400); Red Blood Count 3.94 X10*6/uL (4.20-5.50); Red Cell Distribution Width 13.7 % (11.0-16.0); White Blood Count 6.9 X10*3/uL (4.8-10.8)
[2022-02-08 07:57] LABS: Appearance Urine CLEAR; Color Urine YELLOW; Glucose Urine UA NEG (NEG); Leukocyte Esterase Urine NEG (NEG); Nitrite Urine NEG (NEG); Urine Blood 1+ (NEG); Urine Ketones NEG (NEG); Urine Protein NEG (NEG-TRACE)
[2022-02-08 08:09] LABS: Bacteria Urine TRACE /LPF; WBC Urine 0 /HPF (0-4)
[2022-02-08 08:15] LABS: Alanine Aminotransferase 11 U/L (0-31); Alkaline Phosphatase 74 U/L (39-117); Anion Gap 10 (12-20); Aspartate Amino Transferase 16 U/L (5-31); Bilirubin Direct 0.5 mg/dL (0.0-0.5); Bilirubin Total 1.2 mg/dL (0.0-1.0); Blood Urea Nitrogen 12 mg/dL (9-16); Calcium 9.2 mg/dL (8.4-10.2); Carbon Dioxide 26 mmol/L (22-29); Chloride 110 mmol/L (96-108); Cholesterol 151 mg/dL; Estimated Glomerular Filt Rate > 60; Glucose Random 87 mg/dL (60-115); HDL Cholesterol 67 mg/dL; LDL Cholesterol Calculated 75 mg/dl; Potassium 3.9 mmol/L (3.3-5.1); Sodium 142 mmol/L (135-145); Triglycerides 49 mg/dL
[2022-02-08 08:36] LABS: Thyroid Stimulating Hormone 1.19 uIU/mL (0.32-4.0)
== END 2022-02-08 07:24 | disposition home or self-care (01) ==
LOC: HO.LAB 07:23
PROVIDERS: PCP Internal Medicine; Visit Provider Internal Medicine
DX: K21.00 Gastro-esophageal reflux disease with esophagitis, without bleeding (principal)
CPT/HCPCS: 36415; 80048; 80061; 80076; 81001; 84443; 85027

== ENCOUNTER → 2022-02-13 09:06 | Outpatient (BNVA) | payer MEDICARE, OTHER, SELFPAY | PROVIDERS: PCP Internal Medicine; Visit Provider Hospitalist | DX: J41.0 Simple chronic bronchitis (principal); G47.33 Obstructive sleep apnea (adult) (pediatric); R91.8 Other nonspecific abnormal finding of lung field; R06.02 Shortness of breath; R05.9 Cough, unspecified | CPT/HCPCS: 99212 ==

== ENCOUNTER → 2022-03-06 13:43 | Outpatient (REF) | payer MEDICARE, OTHER, SELFPAY | LOC: HO.SL 13:43 | PROVIDERS: PCP Internal Medicine; Visit Provider Hospitalist | DX: G47.33 Obstructive sleep apnea (adult) (pediatric) (principal) | CPT/HCPCS: 95806 ==

== ENCOUNTER → 2022-05-13 09:06 | Outpatient (BNVA) | payer MEDICARE, OTHER, SELFPAY | PROVIDERS: PCP Internal Medicine; Visit Provider Hospitalist | DX: J41.0 Simple chronic bronchitis (principal); R06.02 Shortness of breath; R91.8 Other nonspecific abnormal finding of lung field; Z79.899 Other long term (current) drug therapy | CPT/HCPCS: 99212 ==

== ENCOUNTER 2022-06-14 08:44 | Outpatient (REF) | payer MEDICARE, OTHER, SELFPAY ==
--- NOTE | ~2022-06-14 | MR_ITS ---
EXAMINATION: MRI FACE WITHOUT AND WITH CONTRAST CLINICAL INFORMATION: Sinusitis COMPARISON: CT scan of the sinuses 09/12/2021. TECHNIQUE: Multiplanar MR imaging of the face was performed without and with contrast. A total of 5 mL Gadavist was utilized for this examination. FINDINGS: There are chronic postoperative changes of sinus surgery including bilateral maxillary uncinectomies, middle turbinectomies, partial ethmoidectomies, and a nasal septoplasty. There is a retention cyst along the lateral wall of the left maxillary sinus and mild mucosal thickening within both maxillary sinus cavities and along the posterior ethmoid roofs. There is moderate mucosal thickening along the inferior surfaces of the frontal sinuses and both of the frontal recesses appear occluded. The sphenoid sinus is well aerated. Globes and extraocular muscles are symmetric. No abnormal retrobulbar mass or inflammation. Orbital apices are unremarkable. There is homogeneous enhancement within the anterior lobe of the pituitary gland. No suprasellar mass effect or chiasmatic compression. Cavernous sinuses enhance symmetrically. Of note there is severe asymmetric degenerative arthrosis of the right temporomandibular joint. MR/MR orbits face neck wo/w con IMPRESSION: There are chronic postoperative changes of functional sinus surgery including bilateral maxillary uncinectomies, middle turbinectomies, partial ethmoidectomies, and a nasal septoplasty. There is a retention cyst along the lateral wall of left maxillary sinus. Moderate mucosal thickening primarily involving the inferior surfaces of the frontal sinuses. There is also mild mucosal thickening within the maxillary sinuses and exposed ethmoid roofs. 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
== END 2022-06-14 08:45 | disposition home or self-care (01) ==
LOC: HO.MRI 08:44
PROVIDERS: PCP Internal Medicine; Visit Provider Psychiatry & Neurology Neurology
DX: J32.9 Chronic sinusitis, unspecified (principal)
CPT/HCPCS: 70543; A9585

== ENCOUNTER → 2022-07-02 08:10 | Outpatient (BNVA) | payer MEDICARE, OTHER, SELFPAY | PROVIDERS: PCP Internal Medicine; Referring Provider Internal Medicine; Visit Provider Internal Medicine | DX: I25.10 Atherosclerotic heart disease of native coronary artery without angina pectoris (principal); R06.02 Shortness of breath; R07.9 Chest pain, unspecified; Z86.73 Personal history of transient ischemic attack (TIA), and cerebral infarction without residual deficits; Z79.899 Other long term (current) drug therapy | CPT/HCPCS: 99212 ==

== ENCOUNTER 2022-07-09 07:18 | Outpatient (REF) | payer MEDICARE, OTHER, SELFPAY ==
--- NOTE | ~2022-07-09 | CT_ITS ---
EXAMINATION: CT SINUS WITHOUT CONTRAST CLINICAL INFORMATION: Follow-up chronic sinusitis. COMPARISON: CT sinus 09/12/2021 TECHNIQUE: Axial 2 mm thin and reformatted 2 minutes thin sagittal and coronal images of sinuses were obtained. This CT examination was performed using dose optimization techniques as appropriate, variously including the following: *Automated exposure control *Adjustment of mA and/or kV according to patient size (this includes techniques or standardized protocols for targeted exams where dose is matched to indication/reason for exam; i.e. extremities or head) *Use of iterative reconstruction technique DLP: 106 mGy-cm FINDINGS: There is mild mucoperiosteal thickening bilateral frontal and left maxillary sinuses. The mucosal thickening left maxillary sinus shows minimal improvement. There is functional endoscopic sinus surgery bilaterally with resection of medial sen of the paranasal sinuses, frontoethmoidal and ostiomeatal complexes. The nasal septum appears midline with mild mucosal thickening. The inferior turbinates are symmetrical and normal. Bilateral sphenoid, ethmoid sinuses are well-aerated. Minimal mucoperiosteal thickening right maxillary sinus is visualized similar previous study. Visualized bony orbits Optic globe and optic nerves are symmetrical and normal. The bony sinus sen, maxillofacial bones and nasal bones are unremarkable. Bilateral mastoid sinuses are well-aerated and clear. CT/CT sinus wo IV con IMPRESSION: Bilateral functional endoscopic sinus surgery changes are stable. Mucoperiosteal thickening involving left maxillary and bilateral frontal sinuses. The left maxillary mucoperiosteal thickening has improved slightly. No change in minimal right maxillary sinus mucoperiosteal thickening.
== END 2022-07-09 07:19 | disposition home or self-care (01) ==
LOC: HO.CT 07:18
PROVIDERS: Visit Provider Otolaryngology
DX: J32.9 Chronic sinusitis, unspecified (principal); J32.8 Other chronic sinusitis
CPT/HCPCS: 70486

== ENCOUNTER 2022-07-11 08:17 | Outpatient (REF) | payer MEDICARE, OTHER, SELFPAY ==
--- NOTE | ~2022-07-11 | CT_ITS ---
EXAMINATION: CT CHEST WITHOUT CONTRAST CLINICAL INFORMATION: Pulmonary nodules, follow-up. COMPARISON: Chest CTA dated 06/21/2021. TECHNIQUE: Multidetector volumetric CT imaging of the chest was done. Axial MIP volume rendering provided. Sagittal and coronal reformatted images were obtained. This CT examination was performed using dose optimization techniques as appropriate, variously including the following: *Automated exposure control *Adjustment of mA and/or kV according to patient size (this includes techniques or standardized protocols for targeted exams where dose is matched to indication/reason for exam; i.e. extremities or head) *Use of iterative reconstruction technique DLP: 69 mGy-cm FINDINGS: LUNGS/PLEURA/AIRWAYS: Mild biapical pleural thickening/scarring is seen. 0.2 cm nodule anteriorly in the right upper lobe (image 235, series 7). Mild linear/nodular scarring in the right middle lobe, lingula and lung bases bilaterally. There are no pleural effusions. The airways are patent. MEDIASTINUM: The thyroid gland is unremarkable. Minimal calcifications in the aortic arch without significant dilatation. Minimal coronary artery calcifications. No pericardial effusion. No mediastinal or hilar lymphadenopathy. UPPER ABDOMEN: Left hepatic lobe low-attenuation foci without significant change. No other significant upper abdominal abnormality. MUSCULOSKELETAL: Mild to moderate thoracic scoliosis without suspicious abnormality or change. SOFT TISSUES: Unremarkable. CT/CT chest wo IV con IMPRESSION: Mild chronic changes as detailed above. No significant/suspicious pulmonary nodules. No acute cardiopulmonary process. Following Fleischner Society guidelines, no imaging follow-up is recommended at this time. Routine radiographic follow-up is recommended as clinically indicated.
== END 2022-07-11 08:18 | disposition home or self-care (01) ==
LOC: HO.CT 08:17
PROVIDERS: PCP Internal Medicine; Visit Provider Hospitalist
DX: R91.8 Other nonspecific abnormal finding of lung field (principal)
CPT/HCPCS: 71250

== ENCOUNTER 2022-07-15 10:44 | Outpatient (REF) | payer MEDICARE, OTHER, SELFPAY ==
[2022-07-15 11:54] LABS: Alanine Aminotransferase 10 U/L (0-31); Albumin Level 4.1 g/dL (3.5-5.0); Alkaline Phosphatase 72 U/L (39-117); Anion Gap 13 (12-20); Aspartate Amino Transferase 16 U/L (5-31); Bilirubin Total 0.7 mg/dL (0.0-1.0); Blood Urea Nitrogen 10 mg/dL (9-16); Calcium 9.2 mg/dL (8.4-10.2); Carbon Dioxide 26 mmol/L (22-29); Chloride 104 mmol/L (96-108); Estimated Glomerular Filt Rate > 60; Glucose Random 67 mg/dL (60-115); Potassium 4.8 mmol/L (3.3-5.1); Sodium 138 mmol/L (135-145); Total Protein 6.2 g/dL (6.5-8.0)
== END 2022-07-15 10:45 | disposition home or self-care (01) ==
LOC: HO.LAB 10:44
PROVIDERS: PCP Internal Medicine; Visit Provider Nurse Practitioner Family
DX: M81.0 Age-related osteoporosis without current pathological fracture (principal)
CPT/HCPCS: 36415; 80053; 82306

== ENCOUNTER → 2022-07-18 12:08 | Outpatient (BNVA) | payer MEDICARE, OTHER, SELFPAY | PROVIDERS: PCP Internal Medicine; Visit Provider Nurse Practitioner Family | DX: M81.0 Age-related osteoporosis without current pathological fracture (principal); M47.812 Spondylosis without myelopathy or radiculopathy, cervical region; M25.50 Pain in unspecified joint; Z79.891 Long term (current) use of opiate analgesic; Z79.899 Other long term (current) drug therapy | CPT/HCPCS: 96372; 99212; J0897 ==

== ENCOUNTER 2022-08-13 09:22 | Outpatient (REF) | payer MEDICARE, OTHER, SELFPAY ==
--- NOTE | ~2022-08-13 | XR_ITS ---
EXAMINATION: XR CHEST CLINICAL INFORMATION: Pleurodynia COMPARISON: CT chest from 07/11/2022, chest radiograph from 08/03/2021 TECHNIQUE: 2 views of the chest were obtained. FINDINGS: Biapical pleural parenchymal scarring. No pneumothorax. Trachea is midline. Cardiomediastinal silhouette is stable. Aorta demonstrates mild tortuosity with atherosclerotic calcifications. No large pleural. Dextrocurvature of the mid thoracic spine with multilevel degenerative changes. Soft tissues are unremarkable. XR/XR chest 2V IMPRESSION: No acute cardiopulmonary process.
== END 2022-08-13 09:23 | disposition home or self-care (01) ==
LOC: HO.XRAY 09:22
PROVIDERS: PCP Internal Medicine; Visit Provider Hospitalist
DX: R07.81 Pleurodynia (principal); J41.0 Simple chronic bronchitis; R91.8 Other nonspecific abnormal finding of lung field
CPT/HCPCS: 71046; 99212

== ENCOUNTER 2022-08-14 08:39 | Outpatient (REF) | payer MEDICARE, OTHER, SELFPAY ==
[2022-08-14 08:57] LABS: MANUAL DIFF FLAG NO
[2022-08-14 09:15] LABS: Basophils Percent Auto 0.5 % (0-2); Eosinophils Absolute Auto 0.1 X10*3/uL (0.0-0.4); Eosinophils Percent Auto 1.3 % (0-4); Hematocrit 36.6 % (37.0-47.0); Hemoglobin 12.2 g/dl (12.0-16.0); Imm Gran Abs Auto 0.03 X10*3/uL (0.00-0.03); Imm Gran Pct Auto 0.4 % (0.0-0.4); Lymphocytes Absolute Auto 2.1 X10*3/uL (1.2-4.9); Lymphocytes Percent Auto 28.4 % (20-40); Mean Corpuscular HGB Conc 33.3 g/dl (31.0-35.0); Mean Corpuscular Hemoglobin 30.4 pg (27.0-33.0); Mean Corpuscular Volume 91.3 fL (80.0-98.0); Mean Platelet Volume 9.5 fL (9.4-12.3); Monocytes Absolute Auto 0.7 X10*3/uL (0.1-1.2); Monocytes Percent Auto 9.4 % (2-11); Neutrophils Absolute Auto 4.5 x10*3/uL (2.0-8.3); Platelet Count 232 X10*3/uL (160-400); Red Blood Count 4.01 X10*6/uL (4.20-5.50); Red Cell Distribution Width 13.2 % (11.0-16.0); White Blood Count 7.5 X10*3/uL (4.8-10.8)
[2022-08-14 10:01] LABS: Erythrocyte Sedimentation Rate 17 MM/HR (0-20)
[2022-08-14 10:08] LABS: Anion Gap 15 (12-20); Blood Urea Nitrogen 10 mg/dL (9-16); Carbon Dioxide 25 mmol/L (22-29); Chloride 106 mmol/L (96-108); Estimated Glomerular Filt Rate > 60; Glucose Random 102 mg/dL (60-115); Potassium 3.5 mmol/L (3.3-5.1); Sodium 142 mmol/L (135-145)
== END 2022-08-14 08:40 | disposition home or self-care (01) ==
LOC: HO.LAB 08:39
PROVIDERS: PCP Internal Medicine; Visit Provider Hospitalist
DX: R07.81 Pleurodynia (principal)
CPT/HCPCS: 36415; 80048; 85025; 85652

== ENCOUNTER → 2022-08-21 08:47 | Outpatient (BNVA) | payer MEDICARE, OTHER, SELFPAY | PROVIDERS: PCP Internal Medicine; Visit Provider Hospitalist | DX: J44.9 Chronic obstructive pulmonary disease, unspecified (principal); R06.02 Shortness of breath; R91.8 Other nonspecific abnormal finding of lung field | CPT/HCPCS: 99212 ==

== ENCOUNTER 2022-11-05 14:53 | Outpatient (REF) | payer MEDICARE, OTHER, SELFPAY ==
[2022-11-05 17:21] LABS: Urine Cytology See Pathology rpt
== END 2022-11-05 14:54 | disposition home or self-care (01) ==
LOC: HO.LAB 14:53
PROVIDERS: PCP Internal Medicine; Visit Provider Nurse Practitioner Family
DX: R10.9 Unspecified abdominal pain (principal); N39.0 Urinary tract infection, site not specified; R31.29 Other microscopic hematuria
CPT/HCPCS: 51798; 87086; 88112; 99212

== ENCOUNTER 2022-11-08 09:37 | Outpatient (REF) | payer MEDICARE, OTHER, SELFPAY | END 2022-11-08 09:38 | disposition home or self-care (01) | LOC: HO.LAB 09:37 | PROVIDERS: Visit Provider Nurse Practitioner Family | DX: R31.29 Other microscopic hematuria (principal) | CPT/HCPCS: 87086 ==

== ENCOUNTER 2022-11-11 08:45 | Outpatient (REF) | payer MEDICARE, OTHER, SELFPAY ==
--- NOTE | ~2022-11-11 | US_ITS ---
EXAMINATION: US RETROPERITONEAL LIMITED (RENAL ONLY) CLINICAL INFORMATION: Flank pain, UTI. COMPARISON: Renal ultrasound 03/07/2020 and 09/21/2019, CTA chest 06/11/2021 TECHNIQUE: Real-time imaging of the kidneys. FINDINGS: RIGHT KIDNEY: 9.2 x 3.4 x 5.1 cm (SAG x AP x TRV). The kidney is normal in size and smooth in contour. The renal parenchymal thickness and echogenicity are normal. There is no hydronephrosis or caliectasis. No perinephric fluid. No calculi by strict ultrasound criteria. Small interpolar exophytic cyst is again noted, approximately 1 cm. This shows some low-level echoes on current exam. The overall size is stable and there is no associated color flow. No additional imaging follow-up required. LEFT KIDNEY: 9.9 x 4.2 x 5.0 cm (SAG x AP x TRV). The kidney is normal in size and smooth in contour. The renal parenchymal thickness and echogenicity are normal. No hydronephrosis or caliectasis. No perinephric fluid. There are no calculi by strict ultrasound criteria. Some specular echoes are present in the upper and lower pole renal sinus but no shadowing or twinkling artifact on color Doppler to suggest nonobstructing calculi. US/US retroperitoneal limited IMPRESSION: 1. No hydronephrosis or caliectasis. No perinephric fluid. 2. Normal renal parenchymal thickness and echogenicity. 3. No calculi by strict ultrasound criteria.
== END 2022-11-11 08:46 | disposition home or self-care (01) ==
LOC: HO.US 08:45
PROVIDERS: PCP Internal Medicine; Visit Provider Nurse Practitioner Family
DX: N39.0 Urinary tract infection, site not specified (principal); R10.9 Unspecified abdominal pain
CPT/HCPCS: 76775

== ENCOUNTER → 2022-11-18 14:24 | Outpatient (BNVA) | payer MEDICARE, OTHER, SELFPAY | PROVIDERS: PCP Internal Medicine; Visit Provider Nurse Practitioner Family | DX: R31.29 Other microscopic hematuria (principal); N39.0 Urinary tract infection, site not specified | CPT/HCPCS: 51798; 99212 ==

== ENCOUNTER 2022-11-26 08:52 | Outpatient (REF) | payer MEDICARE, OTHER, SELFPAY ==
--- NOTE | ~2022-11-26 | MM_ITS ---
EXAMINATION: MM SCREENING DIGITAL BREAST TOMOSYNTHESIS, BILATERAL CLINICAL INFORMATION: Screening. Asymptomatic. The lifetime risk of breast cancer based on the Tyrer-Cuzick Model is 2%. COMPARISON: Outside mammography: 07/09/2022, 06/22/2021, 11/29/2019 ([facility]). TECHNIQUE: Digital breast tomosynthesis is performed in both the craniocaudal and mediolateral oblique views along with computer-aided detection (CAD). Synthesized 2D images are generated from the tomosynthesis. FINDINGS: There are scattered areas of fibroglandular density (ACR BI-RADS breast composition Category b). There are no significant masses, abnormal calcifications, or other abnormalities. Parenchymal pattern is similar to prior outside studies. There is no developing density or architectural abnormality. The axilla and skin contours are unremarkable. No significant changes. MM/MM tomosynthesis screening BI IMPRESSION: No mammographic evidence of malignancy. ASSESSMENT: BI-RADS 1: Negative RECOMMENDATION: Routine annual mammography screening. This patient's information was entered into a reminder system with a target due date for their next mammogram.
== END 2022-11-26 08:53 | disposition home or self-care (01) ==
LOC: HO.MAMMO 08:52
PROVIDERS: Visit Provider Internal Medicine
DX: Z12.31 Encounter for screening mammogram for malignant neoplasm of breast (principal)
CPT/HCPCS: 77063; 77067

== ENCOUNTER → 2022-12-10 08:32 | Outpatient (BNVA) | payer MEDICARE, OTHER, SELFPAY | PROVIDERS: PCP Internal Medicine; Referring Provider Internal Medicine; Visit Provider Internal Medicine | DX: I25.10 Atherosclerotic heart disease of native coronary artery without angina pectoris (principal); Z86.73 Personal history of transient ischemic attack (TIA), and cerebral infarction without residual deficits; Z79.899 Other long term (current) drug therapy | CPT/HCPCS: 93005; 99212 ==

== ENCOUNTER 2022-12-16 08:35 | Outpatient (REF) | payer MEDICARE, OTHER, SELFPAY ==
[2022-12-16 08:45] LABS: MANUAL DIFF FLAG NO
[2022-12-16 09:29] LABS: Basophils Absolute Auto 0.1 X10*3/uL (0.0-0.2); Basophils Percent Auto 0.7 % (0-2); Eosinophils Absolute Auto 0.4 X10*3/uL (0.0-0.4); Hematocrit 35.9 % (37.0-47.0); Hemoglobin 11.6 g/dl (12.0-16.0); Imm Gran Abs Auto 0.03 X10*3/uL (0.00-0.03); Imm Gran Pct Auto 0.4 % (0.0-0.4); Lymphocytes Absolute Auto 1.8 X10*3/uL (1.2-4.9); Lymphocytes Percent Auto 24.9 % (20-40); Mean Corpuscular HGB Conc 32.3 g/dl (31.0-35.0); Mean Corpuscular Hemoglobin 30.5 pg (27.0-33.0); Mean Corpuscular Volume 94.5 fL (80.0-98.0); Mean Platelet Volume 9.6 fL (9.4-12.3); Monocytes Absolute Auto 0.8 X10*3/uL (0.1-1.2); Monocytes Percent Auto 10.6 % (2-11); Neutrophils Absolute Auto 4.1 x10*3/uL (2.0-8.3); Neutrophils Percent Auto 58.4 % (45-73); Platelet Count 230 X10*3/uL (160-400); Red Cell Distribution Width 13.3 % (11.0-16.0); White Blood Count 7.1 X10*3/uL (4.8-10.8)
[2022-12-16 09:43] LABS: Estimated Average Glucose 85 mg/dL; Hemoglobin A1C 84.7937 umol/L; Hemoglobin A1c % 4.6 %
[2022-12-16 10:09] LABS: Alanine Aminotransferase 8 U/L (0-31); Albumin Level 3.9 g/dL (3.5-5.0); Alkaline Phosphatase 65 U/L (39-117); Anion Gap 11 (12-20); Aspartate Amino Transferase 15 U/L (5-31); Bilirubin Total 1.4 mg/dL (0.0-1.0); Blood Urea Nitrogen 12 mg/dL (9-16); Calcium 9.2 mg/dL (8.4-10.2); Carbon Dioxide 27 mmol/L (22-29); Chloride 109 mmol/L (96-108); Cholesterol 137 mg/dL; Estimated Glomerular Filt Rate > 60; Glucose Random 88 mg/dL (60-115); HDL Cholesterol 63 mg/dL; LDL Cholesterol Calculated 64 mg/dl; Potassium 3.7 mmol/L (3.3-5.1); Sodium 143 mmol/L (135-145); Total Protein 5.6 g/dL (6.5-8.0); Triglycerides 51 mg/dL
[2022-12-16 10:32] LABS: Folate 8.9 ng/mL (> or = 4.0); Thyroid Stimulating Hormone 0.74 uIU/mL (0.32-4.0); Vitamin B12 624 pg/mL (200-900); Vitamin D 25-OH Total 33.2 ng/mL (>30)
== END 2022-12-16 08:36 | disposition home or self-care (01) ==
LOC: HO.LAB 08:35
PROVIDERS: PCP Internal Medicine; Visit Provider Internal Medicine
DX: E78.00 Pure hypercholesterolemia, unspecified (principal); Z86.73 Personal history of transient ischemic attack (TIA), and cerebral infarction without residual deficits
CPT/HCPCS: 36415; 80053; 80061; 82306; 82607; 82746; 83036; 84439; 84443; 85025

== ENCOUNTER → 2022-12-17 09:35 | Outpatient (BNVA) | payer MEDICARE, OTHER, SELFPAY | PROVIDERS: PCP Internal Medicine; Visit Provider Urology | DX: N39.0 Urinary tract infection, site not specified (principal); N95.8 Other specified menopausal and perimenopausal disorders; N36.8 Other specified disorders of urethra; R31.29 Other microscopic hematuria | CPT/HCPCS: 52000; 99212 ==

== ENCOUNTER 2023-01-14 12:13 | Outpatient (REF) | payer MEDICARE, OTHER, SELFPAY ==
[2023-01-14 13:37] LABS: Appearance Urine Cloudy; Color Urine Yellow; Glucose Urine UA Negative (Negative); Leukocyte Esterase Urine Large (3+) (Negative); Nitrite Urine Negative (Negative); UMIC TRIGGER UA YES; Urine Blood Moderate (2+) (Negative); Urine Ketones Negative (Negative); Urine Protein Negative (Neg-Trace)
[2023-01-14 13:40] LABS: Bacteria Urine 1+ (None Seen); Hyaline Casts Urine 0-2 /LPF (0-2); Squamous Epithelial Cell Urine 0-2 /HPF (0-2); WBC Urine >50 /HPF (0-5)
[2023-01-14 14:10] LABS: Anion Gap 11 (12-20); Blood Urea Nitrogen 12 mg/dL (9-16); Calcium 9.1 mg/dL (8.4-10.2); Carbon Dioxide 28 mmol/L (22-29); Chloride 109 mmol/L (96-108); Estimated Glomerular Filt Rate > 60; Glucose Random 102 mg/dL (60-115); Potassium 4.5 mmol/L (3.3-5.1); Sodium 143 mmol/L (135-145)
[2023-01-14 14:37] LABS: Erythrocyte Sedimentation Rate 14 MM/HR (0-20)
== END 2023-01-14 12:14 | disposition home or self-care (01) ==
LOC: HO.LAB 12:13
PROVIDERS: Psychiatry & Neurology Neurology; PCP Internal Medicine; Visit Provider Nurse Practitioner Family
DX: N39.0 Urinary tract infection, site not specified (principal)
CPT/HCPCS: 36415; 80048; 81001; 85652; 86140; 87086; 87088; 87186

== ENCOUNTER → 2023-01-15 13:55 | Outpatient (BNVA) | payer MEDICARE, OTHER, SELFPAY | PROVIDERS: PCP Internal Medicine; Visit Provider Nurse Practitioner Family | DX: M81.0 Age-related osteoporosis without current pathological fracture (principal); M25.50 Pain in unspecified joint; Z79.620 Long term (current) use of immunosuppressive biologic | CPT/HCPCS: 99212 ==

== ENCOUNTER → 2023-01-24 08:54 | Outpatient (BNVA) | payer MEDICARE, OTHER, SELFPAY | PROVIDERS: PCP Internal Medicine; Visit Provider Nurse Practitioner Family ==

== ENCOUNTER 2023-01-31 08:45 | Outpatient (REF) | payer MEDICARE, OTHER, SELFPAY ==
--- NOTE | ~2023-01-31 | XR_ITS ---
EXAMINATION: XR CERVICAL SPINE CLINICAL INFORMATION: Cervicalgia. Patient states fall 01/16 COMPARISON: 08/03/2021 CT angiogram TECHNIQUE: 3 views of the cervical spine were obtained. FINDINGS: Anterior cervical fusion hardware is again seen at the level of 4/[address] Hardware appears to be intact. There is mild straightening of the normal cervical lordosis as noted on the prior scan as well. Multilevel degenerative changes are seen with prominent anterior osteophyte formation but I do not appreciate any acute fracture or spondylolisthesis on these images. Visualized airway unremarkable. XR/XR cervical spine 2V IMPRESSION: Chronic appearing and postoperative changes. I do not appreciate any acute superimposed fracture or spondylolisthesis. Overall the appearance is similar to the prior CT scan.
--- NOTE | ~2023-01-31 | XR_ITS ---
EXAMINATION: XR SHOULDER, RIGHT CLINICAL INFORMATION: Pain in right shoulder. COMPARISON: None available. TECHNIQUE: AP external rotation, Grashey, scapular Y, and axillary views of the right shoulder. FINDINGS: Humeral head is well-seated in the glenoid fossa. Degenerative changes are seen with mild chondrocalcinosis. Calcification along the superior aspect of the humeral head could represent calcific tendinitis in the region of the supraspinatus tendon. Hypertrophic degenerative changes in the acromioclavicular joint. Visualized right upper chest and ribs unremarkable. XR/XR shoulder RT min 2V IMPRESSION: Degenerative changes but no acute fracture or dislocation. Possible calcific tendinitis in the region of the supraspinatus tendon.
== END 2023-01-31 08:46 | disposition home or self-care (01) ==
LOC: HO.XRAY 08:45
PROVIDERS: PCP Internal Medicine; Visit Provider Internal Medicine
DX: M25.511 Pain in right shoulder (principal); M54.2 Cervicalgia; Z91.81 History of falling
CPT/HCPCS: 72040; 73030

== ENCOUNTER 2023-02-10 11:26 | Outpatient (REF) | payer MEDICARE, OTHER, SELFPAY ==
--- NOTE | ~2023-02-10 | XR_ITS ---
EXAMINATION: XR WRIST, RIGHT CLINICAL INFORMATION: Pain. COMPARISON: None available. TECHNIQUE: PA, lateral, and oblique views of the right wrist. FINDINGS: Fine bony detail is limited by overlapping cast material. There is an impacted distal right radial fracture, with 7 mm of lateral displacement. No dislocation is seen. The proximal and distal carpal rows are intact. There is mild osteoarthritic change of the first carpometacarpal joint. No focal soft tissue swelling, gas or foreign body is seen. XR/XR wrist RT min 3V IMPRESSION: An impacted, mildly displaced fracture is seen of the distal right radius.
--- NOTE | ~2023-02-10 | XR_ITS ---
EXAMINATION: XR SHOULDER, RIGHT CLINICAL INFORMATION: Pain. COMPARISON: Radiographs dated 01/31/2023. TECHNIQUE: AP neutral, Grashey and scapula Y views of the right shoulder are submitted. FINDINGS: Bony alignment and mineralization are normal. The glenohumeral joint is intact. The acromioclavicular and coracoclavicular intervals are normal. There is mild osteoarthritic change of the acromioclavicular joint, with periarticular calcification. There is narrowing of the rotator cuff interval. There is calcific tendinitis of the right rotator cuff. There is cortical irregularity of the greater tuberosity of the proximal right humerus. No fracture or dislocation is seen. There is no foreign body. No right pneumothorax is seen. XR/XR shoulder RT min 2V IMPRESSION: 1. There is mild osteoarthritic change of the right acromioclavicular joint. 2. Findings are consistent with right rotator cuff impingement and calcific tendinitis of the right rotator cuff.
== END 2023-02-10 11:27 | disposition home or self-care (01) ==
LOC: HO.HOSX 11:26
PROVIDERS: PCP Internal Medicine; Visit Provider Physician Assistant
DX: S62.101A Fracture of unspecified carpal bone, right wrist, initial encounter for closed fracture (principal); M25.511 Pain in right shoulder
CPT/HCPCS: 29085; 73030; 73110; 99202

== ENCOUNTER 2023-02-11 09:46 | Outpatient (REF) | payer MEDICARE, OTHER, SELFPAY ==
--- NOTE | ~2023-02-11 | XR_ITS ---
EXAMINATION: XR WRIST, RIGHT CLINICAL INFORMATION: Pain in right wrist COMPARISON: None available. TECHNIQUE: PA, lateral, and oblique views of the right wrist. FINDINGS: Presence of overlying fiberglass cast limits evaluation of the underlying osseous structures. There is an impacted, posterolaterally displaced fracture of the distal radial by approximately 0.6 cm, and extending into the distal radial ulnar joint. There is no definite extension seen into the radiocarpal joint. A small amount of callus is noted anteriorly at the distal radius. No additional fractures are seen. XR/XR wrist RT min 3V IMPRESSION: Impacted, posterior laterally displaced fracture of the distal radius with DRUJ extension and callus formation anteriorly.
== END 2023-02-11 09:47 | disposition home or self-care (01) ==
LOC: HO.HOSX 09:46
PROVIDERS: PCP Internal Medicine; Visit Provider Physician Assistant
DX: S62.101A Fracture of unspecified carpal bone, right wrist, initial encounter for closed fracture (principal)
CPT/HCPCS: 29085; 73110; 99212

== ENCOUNTER 2023-02-18 12:23 | Outpatient (REF) | payer MEDICARE, OTHER, SELFPAY ==
--- NOTE | ~2023-02-18 | XR_ITS ---
EXAMINATION: XR SHOULDER, RIGHT CLINICAL INFORMATION: Pain in the right shoulder. COMPARISON: 02/10/2023. TECHNIQUE: Two views of the right shoulder. FINDINGS: There is mild acromioclavicular osteoarthritis. Subtle mineralization of the acromioclavicular joint capsule is noted. Soft tissues are otherwise unremarkable. Glenohumeral joint is well preserved. No fracture. Alignment is anatomic. Scoliotic curvature is evident in the thoracic spine. ACDF hardware is present in the lower cervical spine. XR/XR shoulder RT min 2V IMPRESSION: Mild osteoarthritis in the right acromioclavicular joint. No acute osseous findings.
== END 2023-02-18 12:24 | disposition home or self-care (01) ==
LOC: HO.HOSX 12:23
PROVIDERS: PCP Internal Medicine; Visit Provider Physician Assistant
DX: M25.511 Pain in right shoulder (principal)
CPT/HCPCS: 73030; 99212

== ENCOUNTER → 2023-02-26 08:52 | Outpatient (BNVA) | payer MEDICARE, OTHER, SELFPAY | PROVIDERS: PCP Internal Medicine; Visit Provider Hospitalist | DX: J41.0 Simple chronic bronchitis (principal); R05.9 Cough, unspecified; R06.02 Shortness of breath; R91.8 Other nonspecific abnormal finding of lung field | CPT/HCPCS: 99212 ==

== ENCOUNTER 2023-03-03 10:37 | Outpatient (REF) | payer MEDICARE, OTHER, SELFPAY ==
--- NOTE | ~2023-03-03 | XR_ITS ---
EXAMINATION: XR WRIST, RIGHT CLINICAL INFORMATION: Pain right wrist. COMPARISON: Right wrist 02/11/2023. TECHNIQUE: PA, lateral, and oblique views of the right wrist. FINDINGS: There is an impacted slightly displaced fracture distal radius, similar to previous study. There is callus formation along the anterior fracture. The cast has been removed. There is a soft tissue calcification along the ulnar styloid process, stable. The rest of the visualized wrist joint is unremarkable. No soft tissue swelling seen. XR/XR wrist RT min 3V IMPRESSION: 1. Impacted slightly displaced slowly healing fracture of the distal radius, stable. The cast has been removed. 2. There is a soft tissue calcification at the tip of the ulnar styloid process, unchanged.
== END 2023-03-03 10:38 | disposition home or self-care (01) ==
LOC: HO.HOSX 10:37
PROVIDERS: Visit Provider Physician Assistant
DX: S62.101D Fracture of unspecified carpal bone, right wrist, subsequent encounter for fracture with routine healing (principal)
CPT/HCPCS: 73110; 99212

== ENCOUNTER 2023-03-20 11:25 | Outpatient (REF) | payer MEDICARE, OTHER, SELFPAY ==
[2023-03-20 13:23] LABS: Appearance Urine Clear; Color Urine Yellow; Glucose Urine UA Negative (Negative); Leukocyte Esterase Urine Large (3+) (Negative); Nitrite Urine Negative (Negative); Specific Gravity - Urine <= 1.005 (1.005-1.025); UMIC TRIGGER UA YES; Urine Blood Small (1+) (Negative); Urine Ketones Negative (Negative); Urine Protein Negative (Neg-Trace)
[2023-03-20 13:39] LABS: Bacteria Urine None Seen (None Seen); Hyaline Casts Urine 0-2 /LPF (0-2); RBC Urine 0-2 /HPF (0-2); Squamous Epithelial Cell Urine 0-2 /HPF (0-2); WBC Urine >50 /HPF (0-5)
== END 2023-03-20 11:26 | disposition home or self-care (01) ==
LOC: HO.LAB 11:25
PROVIDERS: PCP Internal Medicine; Visit Provider Nurse Practitioner Family
DX: N39.0 Urinary tract infection, site not specified (principal)
CPT/HCPCS: 81001; 87086; 87088; 87186

== ENCOUNTER 2023-04-01 09:00 | Outpatient (RCR) | payer MEDICARE, OTHER, SELFPAY ==
--- NOTE | 2023-03-20 11:01 | MHC.OT.EP ---
[address] [phone] Occupational Therapy Plan of Care Patient Name: Adelina Tavarez Date of Evaluation: 03/20/23 Diagnosis: Right colles fx CR Pain Location: 0-5/10 right wrist ache, sharp Pain Score: 5 Pain Scale Used: Numeric (0 - 10) Aggravating Factors: Wrist and thumb ROM , Forerarm rotation Alleviating Factors: Avoiding use of right hand Assessment: Pt is a 77 yo female 9 wks s/p right Colles fracture due to a fall. Pt now referred to OT for gentle ROM . Pt to continue splint wear for protection as needed and to avoid lifting any thing heavier than her cell phone until MD follow up Frequency and Duration: The patient will be seen 2x wk x 6 wks Short Term Goals: Demo indep with HEP for RUE Wrist ext to 60 deg Wrist flexion to 45 deg Wrist ulnar dev to >20 deg Tolerate light activity ie tying her shoes and brushing her hair. Complaint Investigations Officer Goals: Demo use of right hand with all ADL Pain free RUE AROM ex Right hand AROM digit 2-5 ,0 cm to DPC Right teleradiologist > 20 lb Quick DASH score to < 30 pts Treatment Plan: Therapeutic Exercise Therapeutic Activity Home Exercise Program Patient Education ADL Training Ultrasound Paraffin MHP Joint Mobilization Kinesiotaping Electronically Signed By: Denise Torres OT CHT CLT Please Sign and return to therapist. Thank you once again for your referral.
--- NOTE | 2023-03-20 16:30 | MHC.OT.EP ---
[address] [phone] Occupational Therapy Plan of Care Patient Name: Adelina Tavarez Date of Evaluation: 03/20/23 Diagnosis: Right colles fx CR Pain Location: 0-5/10 right wrist ache, sharp Pain Score: 5 Pain Scale Used: Numeric (0 - 10) Aggravating Factors: Wrist and thumb ROM , Forerarm rotation Alleviating Factors: Avoiding use of right hand Assessment: Pt is a 77 yo female 9 wks s/p right Colles fracture due to a fall. Pt now referred to OT for gentle ROM . Pt to continue splint wear for protection as needed and to avoid lifting any thing heavier than her cell phone until MD follow up Frequency and Duration: The patient will be seen 2x wk x 6 wks Short Term Goals: Demo indep with HEP for RUE Wrist ext to 60 deg Wrist flexion to 45 deg Wrist ulnar dev to >20 deg Tolerate light activity ie tying her shoes and brushing her hair. Automatic Oven Operator Goals: Demo use of right hand with all ADL Pain free RUE AROM ex Right hand AROM digit 2-5 ,0 cm to DPC Right plastic extruding machine operator > 20 lb Quick DASH score to < 30 pts Treatment Plan: Therapeutic Exercise Therapeutic Activity Home Exercise Program Patient Education ADL Training Ultrasound Paraffin MHP Joint Mobilization Kinesiotaping Electronically Signed By: Denise Torres OT CHT CLT Please Sign and return to therapist. Thank you once again for your referral.
--- NOTE | 2023-04-18 13:33 | MHC.OT.DC ---
[address] [phone] F: [phone] Occupational Therapy Discharge Note Patient Name: Adelina Tavarez Provider: Ernesto Nam Diagnosis: Right colles fx CR Date of Surgery: Date of Evaluation: 03/20/23 Date of Discharge: 04/18/23 Treatments to Date: 3 Cancellations to Date: 1 No Shows to Date: Discharge Status: Patient Elected to Stop Discharge Summary: Good improvement in hand ROM after treatment. Last MD pt requested D/C from OT to her HEP Electronically Signed By: Denise Torres OT CHT CLT Reviewed/agree with student documentation: Therapist: Please Sign and return to therapist, thank you for your referral.
== END 2023-04-18 13:33 | disposition home or self-care (01) ==
LOC: HO.OT 09:00
PROVIDERS: PCP Internal Medicine; Visit Provider Physician Assistant
DX: S52.501D Unspecified fracture of the lower end of right radius, subsequent encounter for closed fracture with routine healing (principal)
CPT/HCPCS: 97110; 97165

== ENCOUNTER 2023-04-03 06:10 | Outpatient (REF) | payer MEDICARE, OTHER, SELFPAY ==
--- NOTE | ~2023-04-03 | XR_ITS ---
EXAMINATION: XR SHOULDER, RIGHT CLINICAL INFORMATION: Pain in right shoulder COMPARISON: 01/31/2023 TECHNIQUE: AP external rotation, Grashey, scapular Y, and axillary views of the right shoulder. FINDINGS: The glenohumeral joint is preserved. There are changes of chondrocalcinosis more prominent in the greater tuberosity. There is no fracture or subluxation. Acromioclavicular joint demonstrates mild changes of osteoarthritis. XR/XR shoulder RT min 2V IMPRESSION: No significant interval change CPPD arthropathy.
--- NOTE | ~2023-04-03 | XR_ITS ---
EXAMINATION: XR WRIST, RIGHT CLINICAL INFORMATION: Pain right wrist COMPARISON: Right wrist 03/03/2023 TECHNIQUE: PA, lateral, and oblique views of the right wrist. FINDINGS: There is an impacted distal radial fracture with sclerotic borders along the fracture line and minimal sclerosis. There is mild sclerosis of distal ulna likely related to healing nonvisualized fracture. There is mild ulnar side process spurring. The soft tissues improved. XR/XR wrist RT min 3V IMPRESSION: Slowly healing distal radial fracture with callus formation. There is mild sclerosis along the distal ulna questioning healing nonvisualized fracture. Mild spurring along the ulnar styloid process or old avulsion injury.
== END 2023-04-03 06:11 | disposition home or self-care (01) ==
LOC: HO.HOSX 06:10
PROVIDERS: Visit Provider Physician Assistant
DX: S62.101D Fracture of unspecified carpal bone, right wrist, subsequent encounter for fracture with routine healing (principal); M75.81 Other shoulder lesions, right shoulder
CPT/HCPCS: 73030; 73110; 99212

== ENCOUNTER 2023-05-12 06:50 | Outpatient (REF) | payer MEDICARE, OTHER, SELFPAY ==
--- NOTE | ~2023-05-12 | XR_ITS ---
EXAMINATION: XR WRIST, RIGHT CLINICAL INFORMATION: Pain in right wrist COMPARISON: Radiograph 04/03/2023 TECHNIQUE: PA, lateral, and oblique views of the right wrist. FINDINGS: Redemonstration of impacted distal radius fracture with unchanged alignment and further bony remodeling. Subtle sclerosis of the distal ulna is again noted as well likely relating to a subtle healing impacted distal ulnar fracture. No new fractures identified. Small amount of soft tissue ossification at the tip of the ulnar styloid again noted. XR/XR wrist RT min 3V IMPRESSION: Stable alignment of impacted distal radius and ulnar fractures with further bony remodeling.
== END 2023-05-12 06:51 | disposition home or self-care (01) ==
LOC: HO.HOSX 06:50
PROVIDERS: Visit Provider Physician Assistant
DX: S62.101A Fracture of unspecified carpal bone, right wrist, initial encounter for closed fracture (principal); M75.81 Other shoulder lesions, right shoulder
CPT/HCPCS: 73110; 99212

== ENCOUNTER 2023-06-30 08:24 | Outpatient (AMB) | payer MEDICARE, OTHER, SELFPAY ==
--- NOTE | 2023-06-30 08:28 | MHC.OFFVIS ---
Intake Vital Signs 06/30/23 08:29 Height 5 ft Weight 102 lb 4.712 oz BMI 20.0 BP 108/60 Blood Pressure Location Lt brachial Position Sitting Pulse 66 Intake Visit Reasons: 6 month f/u Intake Note: 6 month follow up Housecalls Nurse Required: No Accompanied by: Self / Same As Patient Allergies naproxen [From NAPROSYN] Allergy (Severe, Verified 06/30/23 08:29) sensitivity niacin [From NIASPAN EXTENDED-RELEASE] Allergy (Severe, Verified 06/30/23 08:29) Rash acetaminophen [From Percocet] Allergy (Mild, Verified 06/30/23 08:29) Itching clarithromycin [From BIAXIN] Allergy (Mild, Verified 06/30/23 08:29) sensitivity codeine [CODEINE] Allergy (Mild, Verified 06/30/23 08:29) Itching esomeprazole [From Nexium] Allergy (Mild, Verified 06/30/23 08:29) Hives fluconazole [From DIFLUCAN] Allergy (Mild, Verified 06/30/23 08:29) sensitivity gatifloxacin [From TEQUIN] Allergy (Mild, Verified 06/30/23 08:29) sensitivity hydrocodone [From Vicodin] Allergy (Mild, Verified 06/30/23 08:29) Rash levofloxacin [From Levaquin] Allergy (Mild, Verified 06/30/23 08:29) sensitivity oxycodone [From Percocet] Allergy (Mild, Verified 06/30/23 08:29) Itching quinidine [QUINIDINE] Allergy (Mild, Verified 06/30/23 08:29) sensitivity Sulfa (Sulfonamide Antibiotics) [SULFA (SULFONAMIDE ANTIBIOTICS)] Allergy (Mild, Verified 06/30/23 08:29) Rash terfenadine [From SELDANE] Allergy (Mild, Verified 06/30/23 08:29) sensitivity tetracycline [TETRACYCLINE] Allergy (Mild, Verified 06/30/23 08:29) sensitivity tramadol [From Ultracet] Allergy (Mild, Verified 06/30/23 08:29) Rash cefaclor [From CECLOR] Adverse Reaction (Severe, Verified 06/30/23 08:29) Unknown cefdinir Adverse Reaction (Intermediate, Verified 06/30/23 08:29) Stomach Upset nitrofurantoin [From Macrobid] Adverse Reaction (Intermediate, Verified 06/30/23 08:29) Stomach Upset montelukast [From Singulair] Adverse Reaction (Mild, Verified 06/30/23 08:29) Headache topiramate [From TOPAMAX] Adverse Reaction (Mild, Verified 06/30/23 08:29) Stomach Upset Medication List - Last Reconciled 06/30/23 by Chris Lincoln MD Advair HFA 115-21 mcg/actuation (fluticasone propion-salmeterol) 2 puffs PO BID 90 days NS albuterol sulfate 2.5 mg (3 mL) inhalation Q6H PRN 30 days albuterol sulfate 90 mcg/actuation 2 inhalations inhalation Q6H PRN 30 days atorvastatin 40 mg PO DAILY Celebrex (celecoxib) 200 mg PO BID 30 days NS cholecalciferol (vitamin D3) 50 mcg PO DAILY Eliquis (apixaban) 5 mg PO BID 90 days NS estradiol 0.01%(0.1mg/gram) (Estrace) pea size amount to urethra vaginally daily flash glucose scanning reader (HItviews [place] 14 Day [place]) As directed flash glucose sensor (Receptosyle Waldemar 14 Day Sensor kit) As directed glucagon 1 mg IM ONCE Lexapro (escitalopram oxalate) 10 mg PO DAILY NS lidocaine 4% (Lidocaine Pain Relief) 1 patch See Protocol transdermal DAILY loratadine (Claritin) 10 mg PO DAILY nebulizers As directed neomycin-polymyxin B-dexameth 3.5mg/mL-10,000 unit/mL-0.1 % 1 drp ophthalmic (eye) Q6H prochlorperazine maleate (Compazine) 10 mg PO Q8H PRN tramadol 50 mg PO BID PRN 21 days varenicline (Tyrvaya) 1 spray intranasal BID varenicline (Tyrvaya) 1 spray intranasal BID vitamin B complex (B Complex-Vitamin B12 tablet) 1 tab PO DAILY HPI HPI Comments History of Present Illness Details Adelina returns for follow up regarding stroke/PFO. Generally doing fine. No cardiac complaints. 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 COPD (chronic obstructive pulmonary disease) Cough Degeneration, intervertebral disc, cervical Dry eye Dyspnea GERD (gastroesophageal reflux disease) History of CVA (cerebrovascular accident) (~2020) Hyperlipidemia Microscopic hematuria Mycobacterial disease Nasal vestibulitis Ocular migraine SERG (obstructive sleep apnea) Osteoporosis (~1999) Overactive bladder Palpitation PONV (postoperative nausea and vomiting) Precordial chest pain Pulmonary nodules Recurrent UTI Renal cyst Tubular adenoma of colon (~2005) URI (upper respiratory infection) Urinary urgency Surgical History History of bladder suspension procedure History of colonoscopy History of esophagogastroduodenoscopy (EGD) History of fusion of cervical spine History of sinus surgery Family History Son No problems noted. Social History Household Members: Spouse Housing: Condominium Do you presently have visiting nurse or other home services: No Alcohol intake: never Patient Tobacco Use Status: Never used Tobacco Years Smoked: parent and smoker e-Cigarette/Vaping Use: Never Used Second Hand Smoke Exposure: Yes Advance Directives Date on File: 08/16/20 service: No Current occupational status: retired Current occupation: right hand Cognitive needs: No Hearing needs: Yes (hearing aides) Vision needs: Yes (Glasses) Review of Systems Const Denies weakness ENT Denies dizziness Card Denies chest pain, Denies chest pain with activity, Denies syncope, Denies rapid heart rate, Denies pedal edema, Denies edema, Denies leg edema, Denies lightheadedness, Denies palpitations, Denies dyspnea, Denies dyspnea on exertion and Denies orthopnea Resp Denies cough, Denies dyspnea and Denies dyspnea on exertion GI Denies hematochezia and Denies change in stool character Musc Denies abnormal gait, Denies muscle cramps, Denies muscle weakness, Denies numbness, Denies radiating pain into limb and Denies tingling Neuro Denies abnormal gait, Denies dizziness, Denies syncope, Denies numbness, Denies tingling and Denies weakness Endo Denies palpitations Physical Exam Vital Signs: Last Vital Signs Pulse 66 06/30/23 08:29 BP 108/60 06/30/23 08:29 BMI result Body Mass Index 20.0 Const General: comfortable and no acute distress Orientation/consciousness: patient oriented x3 HEENT Other: Unremarkable Head: Yes normal to inspection Neck Neck: Yes normal visual inspection Chest Chest palpation & inspection: normal inspection of the chest Resp Auscultation: clear to auscultation bilaterally Cardio Palpation: normal PMI Heart sounds: S1 normal heart sound present, S2 normal heart sound present, no gallops, no murmurs and no rubs GI Palpation (GI): Soft to palpation Back/Spine/Pelvis Other: unremarkable Skin General skin exam: no rashes or lesions noted Neuro General: patient oriented x3 Extrem General: Yes normal to inspection Psych Mental Status: mental status grossly normal Assessment & Plan Assessment & Plan (1) Ischemic stroke: Code(s): I63.9 - Cerebral infarction, unspecified Plan: Cardiac studies reviewed. In the transthoracic study, agitated saline contrast study positive for small PFO with [id number] shunting during Valsalva. This led to a transesophageal echocardiogram. In the 2D portion, PFO could be seen with color Doppler evidence of [id number] shunting but during saline contrast done 3x, there was no evidence of transfer bubbles from right to left side. Hence overall possibly small PFO with intermittent shunting but does not appear hemodynamically significant. No indication for PFO closure at this time. She is on empiric anticoagulation for possible atrial fibrillation. No specific change with this. (2) Atherosclerotic cardiovascular disease: Code(s): I25.10 - Atherosclerotic heart disease of [place] coronary artery without angina pectoris Plan: Coronary CTA from 2018-focal plaque at the mid LAD with mild narrowing; mild calcific plaque at RCA origin without any significant luminal narrowing. Myocardial perfusion imaging study from 2020 performed at [facility]-no reversible or fixed defects; exercise capacity 4.6 Mets and reached 82% of max predicted heart rate. Stable. Continue statins. LDL 64 mg/dL. Coding Level of Care Code Est Pt Level 3 (99283) Diagnoses Ischemic stroke I63.9 Atherosclerotic cardiovascular disease I25.10
[2023-06-30 08:29] VITALS: BP 108/60; PULSE 66
== END 2023-06-30 08:48 | disposition home or self-care (01) ==
PROVIDERS: PCP Internal Medicine; Referring Provider Internal Medicine; Visit Provider Internal Medicine
DX: I63.9 Cerebral infarction, unspecified (principal); I25.10 Atherosclerotic heart disease of native coronary artery without angina pectoris
CPT/HCPCS: 99213

== ENCOUNTER → 2023-06-30 08:24 | Outpatient (BNVA) | payer MEDICARE, OTHER, SELFPAY | PROVIDERS: PCP Internal Medicine; Referring Provider Internal Medicine; Visit Provider Internal Medicine | DX: I63.9 Cerebral infarction, unspecified (principal); I25.10 Atherosclerotic heart disease of native coronary artery without angina pectoris; I10 Essential (primary) hypertension | CPT/HCPCS: 99212 ==

== ENCOUNTER 2023-07-14 11:14 | Outpatient (REF) | payer MEDICARE, OTHER, SELFPAY ==
[2023-07-14 14:32] LABS: Erythrocyte Sedimentation Rate 7 MM/HR (0-20)
== END 2023-07-14 11:15 | disposition home or self-care (01) ==
LOC: HO.LAB 11:14
PROVIDERS: Internal Medicine; PCP Internal Medicine; Visit Provider Internal Medicine
DX: M54.6 Pain in thoracic spine (principal)
CPT/HCPCS: 36415; 85652

== ENCOUNTER 2023-07-16 11:33 | Outpatient (AMB) | payer MEDICARE, OTHER, SELFPAY ==
[2023-07-16 11:42] VITALS: BP 110/60; PULSE 71; TEMP 36.3; O2SAT 99; BMI 20.1
--- NOTE | 2023-07-16 11:42 | MHC.OFFVIS ---
Intake Vital Signs 07/16/23 11:42 Height 5 ft Weight 102 lb 11.767 oz BMI 20.1 BP 110/60 Blood Pressure Location Rt brachial Position Sitting Pulse 71 Pulse Source Pulse Oximeter Temp 97.4 F Temp Source Skin Pulse Oximetry (%) 99 Intake Visit Reasons: Osteoporosis Intake Note: Pt seen today for follow up. 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 Required: No Accompanied by: Self / Same As Patient Allergies naproxen [From NAPROSYN] Allergy (Severe, Verified 07/16/23 11:45) sensitivity niacin [From NIASPAN EXTENDED-RELEASE] Allergy (Severe, Verified 07/16/23 11:45) Rash acetaminophen [From Percocet] Allergy (Mild, Verified 07/16/23 11:45) Itching clarithromycin [From BIAXIN] Allergy (Mild, Verified 07/16/23 11:45) sensitivity codeine [CODEINE] Allergy (Mild, Verified 07/16/23 11:45) Itching esomeprazole [From Nexium] Allergy (Mild, Verified 07/16/23 11:45) Hives fluconazole [From DIFLUCAN] Allergy (Mild, Verified 07/16/23 11:45) sensitivity gatifloxacin [From TEQUIN] Allergy (Mild, Verified 07/16/23 11:45) sensitivity hydrocodone [From Vicodin] Allergy (Mild, Verified 07/16/23 11:45) Rash levofloxacin [From Levaquin] Allergy (Mild, Verified 07/16/23 11:45) sensitivity oxycodone [From Percocet] Allergy (Mild, Verified 07/16/23 11:45) Itching quinidine [QUINIDINE] Allergy (Mild, Verified 07/16/23 11:45) sensitivity Sulfa (Sulfonamide Antibiotics) [SULFA (SULFONAMIDE ANTIBIOTICS)] Allergy (Mild, Verified 07/16/23 11:45) Rash terfenadine [From SELDANE] Allergy (Mild, Verified 07/16/23 11:45) sensitivity tetracycline [TETRACYCLINE] Allergy (Mild, Verified 07/16/23 11:45) sensitivity tramadol [From Ultracet] Allergy (Mild, Verified 07/16/23 11:45) Rash cefaclor [From CECLOR] Adverse Reaction (Severe, Verified 07/16/23 11:45) Unknown cefdinir Adverse Reaction (Intermediate, Verified 07/16/23 11:45) Stomach Upset nitrofurantoin [From Macrobid] Adverse Reaction (Intermediate, Verified 07/16/23 11:45) Stomach Upset montelukast [From Singulair] Adverse Reaction (Mild, Verified 07/16/23 11:45) Headache topiramate [From TOPAMAX] Adverse Reaction (Mild, Verified 07/16/23 11:45) Stomach Upset Medication List - Last Reconciled 07/16/23 by Jerilyn Byrnes MD Advair HFA 115-21 mcg/actuation (fluticasone propion-salmeterol) 2 puffs PO BID 90 days NS albuterol sulfate 2.5 mg (3 mL) inhalation Q6H PRN 30 days albuterol sulfate 90 mcg/actuation 2 inhalations inhalation Q6H PRN 30 days atorvastatin 40 mg PO DAILY cholecalciferol (vitamin D3) 50 mcg PO DAILY Eliquis (apixaban) 5 mg PO BID 90 days NS estradiol 0.01%(0.1mg/gram) (Estrace) pea size amount to urethra vaginally daily flash glucose scanning reader ([employer] [place] 14 Day [place]) As directed flash glucose sensor ([employer] [place] 14 Day Sensor kit) As directed glucagon 1 mg IM ONCE Lexapro (escitalopram oxalate) 10 mg PO DAILY NS lidocaine 4% (Lidocaine Pain Relief) 1 patch See Protocol transdermal DAILY loratadine (Claritin) 10 mg PO DAILY nebulizers As directed neomycin-polymyxin B-dexameth 3.5mg/mL-10,000 unit/mL-0.1 % 1 drp ophthalmic (eye) Q6H prochlorperazine maleate (Compazine) 10 mg PO Q8H PRN tramadol 50 mg PO BID PRN 21 days varenicline (Tyrvaya) 1 spray intranasal BID varenicline (Tyrvaya) 1 spray intranasal BID vitamin B complex (B Complex-Vitamin B12 tablet) 1 tab PO DAILY HPI HPI Comments History of Present Illness Details Patient is a 77yoF who presents for follow-up of osteoporosis. By Shea Fink 01/23 Patient stated that back in January she was not get caught and she tripped over and fell, she fractured her right wrist and injured her right shoulder. She was evaluated by an orthopedist and had a cast placed. The cast was removed after a few weeks. She was told by the orthopedist that her wrist might not go back to 100%. She continues to have pain in her right wrist specifically with twisting movements. She is wearing some compression band on her wrist which helps. She is also complaining of right shoulder pain. When she was evaluated at [place] she was told that she might have had a fracture in her right shoulder. She also has bilateral hip pain, worse on the right. Painful when lying on her side. Patient is disappointed that she fractured while taking Prol[facility] Medical History Recurrent UTI Ocular migraine Hyperlipidemia History of CVA (cerebrovascular accident) (~2020) Tubular adenoma of colon (~2005) SERG (obstructive sleep apnea) Nasal vestibulitis Degeneration, intervertebral disc, cervical Dry eye PONV (postoperative nausea and vomiting) Arthritis of neck Anxiety Palpitation Cerebral microvascular disease Atherosclerotic cardiovascular disease Precordial chest pain URI (upper respiratory infection) Overactive bladder Microscopic hematuria Urinary urgency Osteoporosis (~1999) Renal cyst Dyspnea Mycobacterial disease GERD (gastroesophageal reflux disease) Cough Pulmonary nodules COPD (chronic obstructive pulmonary disease) Surgical History History of fusion of cervical spine History of sinus surgery History of colonoscopy History of esophagogastroduodenoscopy (EGD) History of bladder suspension procedure Family History Son No problems noted. Social History Household Members: Spouse Housing: Condominium Do you presently have visiting nurse or other home services: No Alcohol intake: never Patient Tobacco Use Status: Never used Tobacco Years Smoked: parent and smoker e-Cigarette/Vaping Use: Never Used Second Hand Smoke Exposure: Yes Advance Directives Date on File: 08/16/20 service: No Current occupational status: retired Current occupation: right hand Cognitive needs: No Hearing needs: Yes (hearing aides) Vision needs: Yes (Glasses) Review of Systems Musc Reports arthralgias, Reports limited range of motion and Reports stiffness Physical Exam Vital Signs: Last Vital Signs Temp 97.4 F 07/16/23 11:42 Pulse 71 07/16/23 11:42 BP 110/60 07/16/23 11:42 Pulse Ox 99 07/16/23 11:42 BMI result Body Mass Index 20.1 Const General: cooperative, healthy appearing and comfortable Nutritional Appearance: average body habitus Orientation/consciousness: patient oriented x3 Limitations: no limitations HEENT Head: Yes normocephalic and Yes atraumatic Mouth: moist mucous membranes Resp Effort & Inspection: normal respiratory effort and able to speak in complete sentences Neuro General: patient oriented x3 Extrem Other: Right wrist tenderness and pain with pronation and supination Positive empty can test right shoulder Bilateral trochanteric bursa area tenderness, worse on the right Negative Guillermo's test bilaterally Assessment & Plan Assessment & Plan (1) Osteoporosis: Onset Date: ~1999 Comment: Diagnosed prior to 2018 DEXA 04/2019 osteoporosis T score-2.9 left hip, L-spine T-score -2.8 Received Reclast: 12/23/2018, 01/21/2020, 01/20/2021. DEXA 09/22/2021 with T-score of-3.2 left femoral neck Prolia 01/20/2022- present after dental clearance Wrist fracture 01/23 Code(s): M81.0 - Age-related osteoporosis without current pathological fracture Qualifiers: Osteoporosis type: age-related Presence of current pathological fracture: without current pathological fracture Qualified Code(s): M81.0 - Age-related osteoporosis without current pathological fracture Plan: This is a 77-year-old female with osteoporosis who presents for follow-up. On Prolia. She is due for injection today. Unfortunately patient fell and broke her right wrist back in 01/23. Continue Prolia for now, repeat DEXA scan (2 years after Prolia will start) if patient's bone density is improving, will continue Prolia if not improving will consider switching to Forteo or Tymlos, another option would be Evenity it would be relatively contraindicated given her history of stroke Avoid falls as much as possible Check labs and vitamin-D levels before next visit (2) Trochanteric bursitis of both hips: Code(s): M70.61 - Trochanteric bursitis, right hip; M70.62 - Trochanteric bursitis, left hip Plan: Worse on the right. I discussed different treatment options for trochanteric bursitis. Patient will start home exercises, if no improvement in a few weeks patient will call us and we will consider referring her for physical therapy (can also to physical therapy for rotator cuff tendinopathy at the same time) or a steroid injection (3) Wrist fracture, right: Comment: January 15, 2023 fall, Colles fracture (distal radial fracture) Code(s): S62.101A - Fracture of unspecified carpal bone, right wrist, initial encounter for closed fracture Qualifiers: Encounter type: subsequent encounter Fracture healing: with routine healing Fracture type: closed Qualified Code(s): S62.101D - Fracture of unspecified carpal bone, right wrist, subsequent encounter for fracture with routine healing Plan: Continues to have right wrist pain. Will refer to Hand surgery for another opinion Plan I spent 30 minutes reviewing patient's chart, evaluating patient, ordering diagnostic workup, counseling patient and documenting in the chart Orders: Orders Comprehensive Met. Panel 6 Months M81.0 - Age-related osteoporosis without current pathological fracture XR DEXA axial skeleton 01/02/24 M81.0 - Age-related osteoporosis without current pathological fracture Complete Blood Count Auto Diff 6 Months M81.0 - Age-related osteoporosis without current pathological fracture Vitamin D 25-OH (D2 and D3) 6 Months Z13.21 - Encounter for screening for nutritional disorder Coding Level of Care Code Est Pt Level 4 (98509) Diagnoses Age-related osteoporosis without current pathological fracture M81.0 Osteoporosis type: age-related Presence of current pathological fracture: without current pathological fracture Trochanteric bursitis of both hips M70.61; M70.62 Closed fracture of right wrist with routine healing, subsequent encounter S62.101D Encounter type: subsequent encounter Fracture healing: with routine healing Fracture type: closed
== END 2023-07-16 12:55 | disposition home or self-care (01) ==
LOC: HO.RHE 11:33
PROVIDERS: PCP Internal Medicine; Visit Provider Student in an Organized Health Care Education/Training Program
DX: M81.0 Age-related osteoporosis without current pathological fracture (principal); M70.61 Trochanteric bursitis, right hip; M70.62 Trochanteric bursitis, left hip; S62.101D Fracture of unspecified carpal bone, right wrist, subsequent encounter for fracture with routine healing
CPT/HCPCS: 99214

== ENCOUNTER → 2023-07-16 11:33 | Outpatient (BNVA) | payer MEDICARE, OTHER, SELFPAY | PROVIDERS: PCP Internal Medicine; Visit Provider Student in an Organized Health Care Education/Training Program | DX: M81.0 Age-related osteoporosis without current pathological fracture (principal); M70.61 Trochanteric bursitis, right hip; M70.62 Trochanteric bursitis, left hip; S62.101D Fracture of unspecified carpal bone, right wrist, subsequent encounter for fracture with routine healing; W01.0XXD Fall on same level from slipping, tripping and stumbling without subsequent striking against object, subsequent encounter; Z79.620 Long term (current) use of immunosuppressive biologic | CPT/HCPCS: 96372; 99212; J0897 ==

== ENCOUNTER 2023-07-17 14:12 | Outpatient (AMB) | payer MEDICARE, OTHER, SELFPAY ==
--- NOTE | 2023-07-17 14:29 | A.OFFPC_ITS ---
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 Accompanied by: Self / Same As Patient Allergies naproxen [From NAPROSYN] Allergy (Severe, Verified 07/17/23 14:30) sensitivity niacin [From NIASPAN EXTENDED-RELEASE] Allergy (Severe, Verified 07/17/23 14:30) Rash acetaminophen [From Percocet] Allergy (Mild, Verified 07/17/23 14:30) Itching clarithromycin [From BIAXIN] Allergy (Mild, Verified 07/17/23 14:30) sensitivity codeine [CODEINE] Allergy (Mild, Verified 07/17/23 14:30) Itching esomeprazole [From Nexium] Allergy (Mild, Verified 07/17/23 14:30) Hives fluconazole [From DIFLUCAN] Allergy (Mild, Verified 07/17/23 14:30) sensitivity gatifloxacin [From TEQUIN] Allergy (Mild, Verified 07/17/23 14:30) sensitivity hydrocodone [From Vicodin] Allergy (Mild, Verified 07/17/23 14:30) Rash levofloxacin [From Levaquin] Allergy (Mild, Verified 07/17/23 14:30) sensitivity oxycodone [From Percocet] Allergy (Mild, Verified 07/17/23 14:30) Itching quinidine [QUINIDINE] Allergy (Mild, Verified 07/17/23 14:30) sensitivity Sulfa (Sulfonamide Antibiotics) [SULFA (SULFONAMIDE ANTIBIOTICS)] Allergy (Mild, Verified 07/17/23 14:30) Rash terfenadine [From SELDANE] Allergy (Mild, Verified 07/17/23 14:30) sensitivity tetracycline [TETRACYCLINE] Allergy (Mild, Verified 07/17/23 14:30) sensitivity tramadol [From Ultracet] Allergy (Mild, Verified 07/17/23 14:30) Rash cefaclor [From CECLOR] Adverse Reaction (Severe, Verified 07/17/23 14:30) Unknown cefdinir Adverse Reaction (Intermediate, Verified 07/17/23 14:30) Stomach Upset nitrofurantoin [From Macrobid] Adverse Reaction (Intermediate, Verified 07/17/23 14:30) Stomach Upset montelukast [From Singulair] Adverse Reaction (Mild, Verified 07/17/23 14:30) Headache topiramate [From TOPAMAX] Adverse Reaction (Mild, Verified 07/17/23 14:30) Stomach Upset Medication List - Last Reconciled 07/17/23 by Abby Marc Po, Adv HFA 115-21 mcg/actuation (fluticasone propion-salmeterol) 2 puffs PO BID 90 days NS albuterol sulfate 2.5 mg (3 mL) inhalation Q6H PRN 30 days albuterol sulfate 90 mcg/actuation 2 inhalations inhalation Q6H PRN 30 days atorvastatin 40 mg PO DAILY cholecalciferol (vitamin D3) 50 mcg PO DAILY coenzyme Q10 (Co Q-10) 10 mg PO TID Eliquis (apixaban) 5 mg PO BID 90 days NS estradiol 0.01%(0.1mg/gram) (Estrace) pea size amount to urethra vaginally daily flash glucose scanning reader (Dextr Waldemar 14 Day [place]) As directed flash glucose sensor (Dizko SamuraiStyle Waldemar 14 Day Sensor kit) As directed glucagon 1 mg IM ONCE Lexapro (escitalopram oxalate) 10 mg PO DAILY NS lidocaine 4% (Lidocaine Pain Relief) 1 patch See Protocol transdermal DAILY loratadine (Claritin) 10 mg PO DAILY nebulizers As directed neomycin-polymyxin B-dexameth 3.5mg/mL-10,000 unit/mL-0.1 % 1 drp ophthalmic (eye) Q6H prochlorperazine maleate (Compazine) 10 mg PO Q8H PRN tramadol 50 mg PO BID PRN 21 days varenicline (Tyrvaya) 1 spray intranasal BID varenicline (Tyrvaya) 1 spray intranasal BID vitamin B complex (B Complex-Vitamin B12 tablet) 1 tab PO DAILY Tobacco use date assessed: 07/17/23 Fall risk assessment: 1 Fall in past year Last assessed Fall Risk: 07/17/23 Dental Screening Dental Screen Date: 07/17/23 Did you have a dental visit in the last 12 months?: Yes Did you have a dental problem in the last 6 months where you did not have access to dental care?: No Was dental information given to patient?: Patient has dentist HPI COPD HPI Details 77-year-old female with a history of rec urrent UTI hypercholesterolemia history of CVA with a patent Nascimento ovale with anticoagulation COPD GERD osteoporosis on Prolia coming in for follow-up. Patient was last seen in March 2023. Mammogram is up-to-date bone density done in September 2021. Patient follows up with Rheumatology seen July 2023 for the osteoporosis and with January fracturing her right wrist continues to have some pain she also complains of bilateral hip pain worse on the right history of right shoulder fracture also presently continuing Prolia and the repeat DEXA scan January 2024(after the Prolia shot) trochanteric bursitis doing home exercises. Patient also follows up with Cardiology workup from Cardiology PFO not hemodynamically significant for the CAD coronary CTA 2017 mid LAD with mild narrowing myocardial perfusion 2019 no reversible or fixed defect. Aggressive risk reduction with cholesterol. And blood pressure. Patient continues to follow-up with dermatology also. tired easily, burning epigastric area. Patient on tyrvaya for dry eyes given in [place]. did try pepcid. [facility] Medical History Recurrent UTI Ocular migraine Hyperlipidemia History of CVA (cerebrovascular accident) (~2020) Tubular adenoma of colon (~2005) SERG (obstructive sleep apnea) Nasal vestibulitis Degeneration, intervertebral disc, cervical Dry eye PONV (postoperative nausea and vomiting) Arthritis of neck Anxiety Palpitation Cerebral microvascular disease Atherosclerotic cardiovascular disease Precordial chest pain URI (upper respiratory infection) Overactive bladder Microscopic hematuria Urinary urgency Osteoporosis (~1999) Renal cyst Dyspnea Mycobacterial disease GERD (gastroesophageal reflux disease) Cough Pulmonary nodules COPD (chronic obstructive pulmonary disease) Surgical History History of fusion of cervical spine History of sinus surgery History of colonoscopy History of esophagogastroduodenoscopy (EGD) History of bladder suspension procedure Family History Son No problems noted. Social History Household Members: Spouse Housing: Condominium Do you presently have visiting nurse or other home services: No Alcohol intake: never Patient Tobacco Use Status: Never used Tobacco Years Smoked: parent and smoker e-Cigarette/Vaping Use: Never Used Second Hand Smoke Exposure: Yes Advance Directives Date on File: 08/16/20 service: No Current occupational status: retired Current occupation: right hand Cognitive needs: No Hearing needs: Yes (hearing aides) Vision needs: Yes (Glasses) Questionnaire PHQ-9 Over the last 2 weeks, how often have you been bothered by any of the following problems? 1. Little interest or pleasure in doing things: several days 2. Feeling down, depressed, or hopeless: several days 3. Trouble falling or staying asleep, or sleeping too much: not at all 4. Feeling tired or having little energy: not at all 5. Poor appetite or overeating: not at all 6. Feeling bad about yourself - or that you are a failure or have let yourself or your family down: not at all 7. Trouble concentrating on things, such as reading the newspaper or watching television: not at all 8. Moving or speaking so slowly that other people could have noticed. Or the opposite - being so fidgety or restless that you have been moving around a lot more than usual: not at all 9. Thoughts that you would be better off or of hurting yourself in some way: not at all Total score: 2 Depression Screening Interpretation: Negative Source: Developed by Drs. Augie Espinoza, Yue Griffin, Michael Gallo and colleagues, with an educational aniya from [employer]. Thrive Questionnaire Date Thrive assessed: 07/17/23 I am a: Patient What is your living situation today?: I have a steady place to live Within the past 12 months, did the food you bought not last and you didn't have the money to get more?: Never true Within the past 12 months, did you worry whether your food would run out before you got money to buy more?: Never true Do you have trouble paying for medicines?: No Do you have trouble getting transportation to medical appointments?: No Do you have trouble paying your heating and electricity bill?: No Do you have trouble taking care of your child, family member or friend?: No Do you have trouble with day-to-day activities such as bathing, preparing meals, shopping, managing finances, etc.?: No Are you currently unemployed and looking for a job?: No Are you interested in more education?: No Please select the resources that you would like help with: None Currently or been in a relationship where the following occur: no concerns reported AUDIT C Alcohol Use Questionnaire (AUDIT-C) 1. How often do you have a drink containing alcohol?: Never 3. How often do you have six or more drinks on one occasion?: Never Total Score: 0 SAVANNAH-7 AMB Questionnaire SAVANNAH-7 Date SAVANNAH - 7 assessed: 07/17/23 Feeling nervous, anxious, or on edge: 0 = Not at all Not being able to stop or control worryin = Not at all Worrying too much about different things: 0 = Not at all Trouble relaxin = Not at all Being so restless that it is hard to sit still: 0 = Not at all Becoming easily annoyed or irritable: 0 = Not at all Feeling afraid as if something awful might happen: 0 = Not at all Total SAVANNAH-7 score (0-4 normal; 5-9 mild; 10-14 moderate; 15-21 severe): 0 Source: Developed by Drs. Augie Espinoza, Yue Griffin, Michael Gallo and colleagues, with an educational aniya from [employer]. Physical exam (Primary Care) Vital Signs: Last Vital Signs Pulse 68 07/17/23 14:30 BP 110/62 07/17/23 14:30 Pulse Ox 98 07/17/23 14:30 Oxygen Delivery Method Room Air 07/17/23 14:30 BMI result Body Mass Index 20.2 Tobacco/Smoking Status: Tobacco use Status Tobacco use date assessed 07/17/23 07/17/23 14:31 Patient Tobacco Use Status Never used Tobacco 07/17/23 14:31 e-Cigarette/Vaping Use Never Used 07/17/23 14:31 PHQ-9: PHQ-9 Score PHQ-9: Total score 2 07/17/23 14:31 Depression Screening Interpretation: Negative Thrive Assessment: Date of Thrive Assessment Date Thrive assessed 07/17/23 07/17/23 14:31 Currently or been in a relationship where the following occur: no concerns rep orted Const General: alert; No acute distress Eyes Conjunctivae: conjunctivae normal Resp Auscultation: clear to auscultation bilaterally Cardio Rate: regular rate Rhythm: regular rhythm GI Inspection: Yes normal to inspection Extrem General: Yes normal to inspection and No edema Assessment and Plan Assessment & Plan (1) Osteoporosis: Onset Date: ~1999 Comment: Diagnosed prior to 2018 DEXA 04/2019 osteoporosis T score-2.9 left hip, L-spine T-score -2.8 Received Reclast: 12/23/2018, 01/21/2020, 01/20/2021. DEXA 09/22/2021 with T-score of-3.2 left femoral neck Prolia 01/20/2022- present after dental clearance Wrist fracture 01/23 Code(s): M81.0 - Age-related osteoporosis without current pathological fracture Qualifiers: Osteoporosis type: age-related Presence of current pathological fr acture: without current pathological fracture Qualified Code(s): M81.0 - Age- related osteoporosis without current pathological fracture Plan: Patient is being followed up by Rheumatology on Prolia bone density in 2023 (2) GERD (gastroesophageal reflux disease): Code(s): K21.9 - Gastro-esophageal reflux disease without esophagitis Qualifiers: Esophagitis presence: with esophagitis Esophagitis bleeding: without hemorrhage Qualified Code(s): K21.00 - Gastro-esophageal reflux disease with esophagitis, without bleeding Plan: Avoid the foods that causes that usually spicy foods, tomato products, juices, coffee, soda and foods that your sensitive to. After eating do not lie down, allow 3-4 hours before in lie down. And keep the head of bed above 30 degrees to avoid the acid from going up. As the Pepcid and can take 20 mg once a day or 40 mg at bedtime or 20 mg twice a day (3) COPD (chronic obstructive pulmonary disease): Code(s): J44.9 - Chronic obstructive pulmonary disease, unspecified Qualifiers: COPD type: chronic bronchitis Chronic bronchitis type: simple Loi lified Code(s): J41.0 - Simple chronic bronchitis Plan: Continue with Advair and albuterol (4) Patent foramen ovale: Code(s): Q21.1 - Atrial septal defect Plan: Workup done showing not hemodynamically significant but impaired lead treated with anticoagulation with Eliquis twice a year renal function to (5) History of CVA (cerebrovascular accident): Onset Date: ~2020 Comment: (right cerebellar hemisphere infarct - tx tPA 08/03/2021) Code(s): Z86.73 - Personal history of transient ischemic attack (TIA), and cerebral infarction without residual deficits Plan: Continue with anticoagulation (6) Hyperlipidemia: Code(s): E78.5 - Hyperlipidemia, unspecified Plan: Avoid fried foods, chicken skin, eggs, butter margarine, pastries and meat. Be it pork or beef they have a lot of cholesterol patient on atorvastatin 40 mg once a day December 2022 last blood work (7) Wrist fracture, right: Comment: January 15, 2023 fall, Colles fracture (distal radial fracture) Code(s): S62.101A - Fracture of unspecified carpal bone, right wrist, initial encounter for closed fracture Qualifiers: Encounter type: subsequent encounter Fracture type: closed Fracture healing: with routine healing Qualified Code(s): S62.101D - Fracture of unspecified carpal bone, right wrist, subsequent encounter for fracture with routine healing Plan: Patient was advised to see a hand surgeon (8) Generalized anxiety disorder: Code(s): F41.1 - Generalized anxiety disorder Plan: Stable (9) Anemia: Code(s): D64.9 - Anemia, unspecified Plan: Workup requested Orders: Orders Reticulocyte Count Today D64.9 - Anemia, unspecified Vitamin B12 and Folate Today D64.9 - Anemia, unspecified Comprehensive Met. Panel Today D64.9 - Anemia, unspecified Complete Blood Count Auto Diff Today D64.9 - Anemia, unspecified IRON PROFILE Today D64.9 - Anemia, unspecified Ferritin Today D64.9 - Anemia, unspecified Thyroid Stimulating Hormone Today D64.9 - Anemia, unspecified UA and rflx microscopic Today D64.9 - Anemia, unspecified Coding Level of Care Code Est Pt Level 4 (98978) Diagnoses Age-related osteoporosis without current pathological fracture M81.0 Osteoporosis type: age-related Presence of current pathological fracture: without current pathological fracture Gastroesophageal reflux disease with esophagitis without hemorrhage K21.00 Esophagitis presence: with esophagitis Esophagitis bleeding: without hemorrhage Simple chronic bronchitis J41.0 COPD type: chronic bronchitis Chronic bronchitis type: simple Patent foramen ovale Q21.1 History of CVA (cerebrovascular accident) Z86.73 Hyperlipidemia E78.5 Closed fracture of right wrist with routine healing, subsequent encounter S62.101D Encounter type: subsequent encounter Fracture type: closed Fracture healing: with routine healing Generalized anxiety disorder F41.1 Anemia D64.9 Additional Codes PHQ-9 - 80061 - PHQ-9 Billing: ([id number])
[2023-07-17 14:30] VITALS: BP 110/62; PULSE 68; O2SAT 98; BMI 20.2
== END 2023-07-17 15:52 | disposition home or self-care (01) ==
PROVIDERS: PCP Internal Medicine; Visit Provider Internal Medicine
DX: J41.0 Simple chronic bronchitis (principal); Z86.73 Personal history of transient ischemic attack (TIA), and cerebral infarction without residual deficits; M81.0 Age-related osteoporosis without current pathological fracture; K21.00 Gastro-esophageal reflux disease with esophagitis, without bleeding; Q21.10 Atrial septal defect, unspecified; E78.5 Hyperlipidemia, unspecified; S62.101D Fracture of unspecified carpal bone, right wrist, subsequent encounter for fracture with routine healing; F41.1 Generalized anxiety disorder; D64.9 Anemia, unspecified
CPT/HCPCS: 99214

== ENCOUNTER 2023-07-17 15:39 | Outpatient (REF) | payer MEDICARE, OTHER, SELFPAY ==
[2023-07-17 16:05] LABS: MANUAL DIFF FLAG NO
[2023-07-17 16:20] LABS: Basophils Absolute Auto 0.1 X10*3/uL (0.0-0.2); Basophils Percent Auto 0.6 % (0-2); Eosinophils Absolute Auto 0.3 X10*3/uL (0.0-0.4); Eosinophils Percent Auto 3.8 % (0-4); Hemoglobin 11.9 g/dl (12.0-16.0); Imm Gran Abs Auto 0.02 X10*3/uL (0.00-0.03); Imm Gran Pct Auto 0.3 % (0.0-0.4); Immature Retic Fraction 9.7 % (3.0-15.9); Lymphocytes Absolute Auto 2.3 X10*3/uL (1.2-4.9); Mean Corpuscular HGB Conc 32.2 g/dl (31.0-35.0); Mean Corpuscular Hemoglobin 30.1 pg (27.0-33.0); Mean Corpuscular Volume 93.7 fL (80.0-98.0); Mean Platelet Volume 9.4 fL (9.4-12.3); Monocytes Absolute Auto 0.9 X10*3/uL (0.1-1.2); Monocytes Percent Auto 11.4 % (2-11); Neutrophils Absolute Auto 4.4 x10*3/uL (2.0-8.3); Neutrophils Percent Auto 54.9 % (45-73); Platelet Count 223 X10*3/uL (160-400); Red Blood Count 3.95 X10*6/uL (4.20-5.50); Red Cell Distribution Width 13.6 % (11.0-16.0); Retic HGB Equivalent 34.9 pg (30.0-35.0); Reticulocyte Percent 1.2 % (0.5-1.8); Reticulocytes Absolute 0.045 X10*6/uL (0.026-0.095)
[2023-07-17 16:53] LABS: Alanine Aminotransferase 8 U/L (0-31); Albumin Level 4.2 g/dL (3.5-5.0); Alkaline Phosphatase 85 U/L (39-117); Anion Gap 9 (12-20); Aspartate Amino Transferase 17 U/L (5-31); Bilirubin Total 0.6 mg/dL (0.0-1.0); Blood Urea Nitrogen 11 mg/dL (9-16); Calcium 9.7 mg/dL (8.4-10.2); Carbon Dioxide 28 mmol/L (22-29); Chloride 109 mmol/L (96-108); Estimated Glomerular Filt Rate > 60; Glucose Random 91 mg/dL (60-115); Iron 53 mcg/dL (30-160); Percent Iron Saturation 21 % (15-50); Sodium 142 mmol/L (135-145); Total Iron Binding Capacity 247 mcg/dL (228-428); Total Protein 6.8 g/dL (6.5-8.0); Unsaturated Iron Binding 194 ug/dL
[2023-07-17 17:09] LABS: Ferritin 191 ng/mL (10-250); Thyroid Stimulating Hormone 0.82 uIU/mL (0.32-4.0)
[2023-07-17 17:12] LABS: Appearance Urine Clear; Color Urine Yellow; Glucose Urine UA Negative (Negative); Leukocyte Esterase Urine Trace (Negative); Nitrite Urine Negative (Negative); PH 6.5 (5.0-9.0); Specific Gravity - Urine <= 1.005 (1.005-1.025); UMIC TRIGGER UA YES; Urine Blood Trace (Negative); Urine Ketones Negative (Negative); Urine Protein Negative (Neg-Trace)
[2023-07-17 17:18] LABS: Folate 9.2 ng/mL (> or = 4.0); Vitamin B12 1100 pg/mL (200-900)
[2023-07-17 17:35] LABS: Bacteria Urine None Seen (None Seen); Hyaline Casts Urine 0-2 /LPF (0-2); Squamous Epithelial Cell Urine 0-2 /HPF (0-2); WBC Urine 0-5 /HPF (0-5)
== END 2023-07-17 15:40 | disposition home or self-care (01) ==
LOC: HO.LAB 15:39
PROVIDERS: PCP Internal Medicine; Visit Provider Internal Medicine
DX: D64.9 Anemia, unspecified (principal)
CPT/HCPCS: 36415; 80053; 81001; 81003; 82607; 82728; 82746; 83540; 84443; 85025; 85045

== ENCOUNTER 2023-07-21 12:00 | Outpatient (AMB) | payer MEDICARE, OTHER, SELFPAY ==
--- NOTE | 2023-07-21 12:32 | A.OFFPC_ITS ---
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 Accompanied by: Self / Same As Patient Allergies naproxen [From NAPROSYN] Allergy (Severe, Verified 07/21/23 12:34) sensitivity niacin [From NIASPAN EXTENDED-RELEASE] Allergy (Severe, Verified 07/21/23 12:34) Rash acetaminophen [From Percocet] Allergy (Mild, Verified 07/21/23 12:34) Itching clarithromycin [From BIAXIN] Allergy (Mild, Verified 07/21/23 12:34) sensitivity codeine [CODEINE] Allergy (Mild, Verified 07/21/23 12:34) Itching esomeprazole [From Nexium] Allergy (Mild, Verified 07/21/23 12:34) Hives fluconazole [From DIFLUCAN] Allergy (Mild, Verified 07/21/23 12:34) sensitivity gatifloxacin [From TEQUIN] Allergy (Mild, Verified 07/21/23 12:34) sensitivity hydrocodone [From Vicodin] Allergy (Mild, Verified 07/21/23 12:34) Rash levofloxacin [From Levaquin] Allergy (Mild, Verified 07/21/23 12:34) sensitivity oxycodone [From Percocet] Allergy (Mild, Verified 07/21/23 12:34) Itching quinidine [QUINIDINE] Allergy (Mild, Verified 07/21/23 12:34) sensitivity Sulfa (Sulfonamide Antibiotics) [SULFA (SULFONAMIDE ANTIBIOTICS)] Allergy (Mild, Verified 07/21/23 12:34) Rash terfenadine [From SELDANE] Allergy (Mild, Verified 07/21/23 12:34) sensitivity tetracycline [TETRACYCLINE] Allergy (Mild, Verified 07/21/23 12:34) sensitivity tramadol [From Ultracet] Allergy (Mild, Verified 07/21/23 12:34) Rash cefaclor [From CECLOR] Adverse Reaction (Severe, Verified 07/21/23 12:34) Unknown cefdinir Adverse Reaction (Intermediate, Verified 07/21/23 12:34) Stomach Upset nitrofurantoin [From Macrobid] Adverse Reaction (Intermediate, Verified 07/21/23 12:34) Stomach Upset montelukast [From Singulair] Adverse Reaction (Mild, Verified 07/21/23 12:34) Headache topiramate [From TOPAMAX] Adverse Reaction (Mild, Verified 07/21/23 12:34) Stomach Upset Tobacco use date assessed: 07/17/23 Fall risk assessment: No Falls in past year Last assessed Fall Risk: 07/21/23 Dental Screening Dental Screen Date: 07/21/23 Did you have a dental visit in the last 12 months?: Yes Did you have a dental problem in the last 6 months where you did not have access to dental care?: No Was dental information given to patient?: Patient has dentist HPI sore spots on head HPI Details 77-year-old female just recently seen Se ptember 2022 patient has history of osteoporosis GERD COPD patent Nascimento ovale history of CVA hypercholesterolemia generalized anxiety disorder and recent wrist fracture coming in for follow-up. Patient complains of having feeling of pain or ache on the scalp in right parietal area denies any rash denies any weakness of any extremity denies any syncopal episodes denies any dizziness. This started off 3 days ago prompting for consultation [facility] Medical History Recurrent UTI Ocular migraine Hyperlipidemia History of CVA (cerebrovascular accident) (~2020) Tubular adenoma of colon (~2005) SERG (obstructive sleep apnea) Nasal vestibulitis Degeneration, intervertebral disc, cervical Dry eye PONV (postoperative nausea and vomiting) Arthritis of neck Anxiety Palpitation Cerebral microvascular disease Atherosclerotic cardiovascular disease Precordial chest pain URI (upper respiratory infection) Overactive bladder Microscopic hematuria Urinary urgency Osteoporosis (~1999) Renal cyst Dyspnea Mycobacterial disease GERD (gastroesophageal reflux disease) Cough Pulmonary nodules COPD (chronic obstructive pulmonary disease) Surgical History History of fusion of cervical spine History of sinus surgery History of colonoscopy History of esophagogastroduodenoscopy (EGD) History of bladder suspension procedure Family History Son No problems noted. Social History Household Members: Spouse Housing: Condominium Do you presently have visiting nurse or other home services: No Alcohol intake: never Patient Tobacco Use Status: Never used Tobacco Years Smoked: parent and smoker e-Cigarette/Vaping Use: Never Used Second Hand Smoke Exposure: Yes Advance Directives Date on File: 08/16/20 service: No Current occupational status: retired Current occupation: right hand Cognitive needs: No Hearing needs: Yes (hearing aides) Vision needs: Yes (Glasses) Questionnaire Thrive Questionnaire Date Thrive assessed: 07/17/23 SAVANNAH-7 AMB Questionnaire SAVANNAH-7 Date SAVANNAH - 7 assessed: 07/17/23 Source: Developed by Drs. Augie Espinoza, Yue Griffin, Michael Gallo and colleagues, with an educational aniya from [employer]. Physical exam (Primary Care) Vital Signs: Last Vital Signs BP 136/70 07/21/23 12:33 BMI result Body Mass Index 20.1 Tobacco/Smoking Status: Tobacco use Status Tobacco use date assessed 07/17/23 07/21/23 12:37 Patient Tobacco Use Status Never used Tobacco 07/21/23 12:37 e-Cigarette/Vaping Use Never Used 07/21/23 12:37 Thrive Assessment: Date of Thrive Assessment Date Thrive assessed 07/17/23 07/21/23 12:37 Const Other: Neurological exam is normal scalp exam is negative mild tenderness on palpation but no redness no swelling Assessment and Plan Assessment & Plan (1) Scalp irritation: Code(s): R23.8 - Other skin changes Plan: Reassurance, examination has been benign and neurological exam is negative. Coding Level of Care Code Est Pt Level 3 (14161) Diagnoses Scalp irritation R23.8
[2023-07-21 12:33] VITALS: BP 136/70; BMI 20.1
== END 2023-07-21 13:04 | disposition home or self-care (01) ==
PROVIDERS: PCP Internal Medicine; Visit Provider Internal Medicine
DX: R23.8 Other skin changes (principal)
CPT/HCPCS: 99213

== ENCOUNTER → 2023-07-23 09:13 | Outpatient (BNV) | payer MEDICARE, OTHER, SELFPAY | PROVIDERS: PCP Internal Medicine; Visit Provider Internal Medicine | DX: R30.0 Dysuria (principal) | CPT/HCPCS: 81003 ==

== ENCOUNTER 2023-07-28 11:22 | Emergency (ER) | payer MEDICARE, OTHER, SELFPAY ==
--- NOTE | ~2023-07-28 | XR_ITS ---
EXAMINATION: XR CHEST CLINICAL INFORMATION: Right scapulary pain. COMPARISON: Chest radiograph 08/13/2022. TECHNIQUE: 2 views of the chest were obtained. FINDINGS: Stable appearance of the cardiomediastinal silhouette. Mild streaky opacities in the left lower lobe. No pleural effusion or pneumothorax. No acute osseous abnormalities. Visualized upper abdomen is within normal limits. XR/XR chest 2V IMPRESSION: 1. Mild streaky opacities in the left lower lobe, likely subsegmental atelectasis. 2. No acutely displaced osseous fractures. Consider further evaluation with dedicated radiographic views of the right scapula or with targeted CT, as chest radiographs have decreased sensitivity for detection of scapulary lesions/fractures.
--- NOTE | 2023-07-28 11:40 | ED_ITS ---
HPI - General Adult General Chief complaint: General Medical Stated complaint: upper back shoulder r side Time Seen by Provider: 07/28/23 12:04 Source: patient and family Mode of arrival: ambulatory Limitations: no limitations History of Present Illness HPI narrative: 77-year-old female presented for evaluation of right scapular pain. Pain has been constant since yesterday after she sneezed several times, pain is localized to the right scapula worse with taking a deep breath and movement no recent travel or prolonged immobilization, no lower extremity swelling or tenderness, no history of DVT or PE, patient tried some tramadol with no relief of her pain, no associated shortness of breath or fever or chills. the pain is aggravated by taking a deep breath or moving her right shoulder. Related Data Home Medications Medication Instructions Recorded Confirmed prochlorperazine maleate 10 mg 10 mg PO Q8H PRN Nausea 08/28/20 07/17/23 tablet (Compazine) vitamin B complex (B 1 tab PO DAILY 08/28/20 07/17/23 Complex-Vitamin B12 tablet) [id number] 3.5 1 drp ophthalmic (eye) Q6H 09/25/22 07/17/23 mg/mL-10,000 unit/mL-0.1% eye drops varenicline 0.03 mg/spray nasal 1 spray intranasal BID 02/24/23 07/17/23 spray (Tyrvaya) nebulizers 02/26/23 07/17/23 loratadine 10 mg tablet (Claritin) 10 mg PO DAILY 03/26/23 07/17/23 varenicline 0.03 mg/spray nasal 1 spray intranasal BID 03/26/23 07/17/23 spray (Tyrvaya) coenzyme Q10 10 mg capsule (Co 10 mg PO TID 07/17/23 07/17/23 Q-10) Previous Rx's Medication Instructions Recorded albuterol sulfate 2.5 mg/3 mL 2.5 mg (3 mL) inhalation Q6H PRN 05/29/21 (0.083 %) solution for nebulization shortness of breath or wheezing 30 days #270 mL lidocaine 4 % topical patch 1 patch transdermal DAILY #30 ea 08/06/21 (Lidocaine Pain Relief) albuterol sulfate 90 mcg/actuation 2 inh inhalation Q6H PRN shortness 08/15/21 aerosol inhaler of breath or wheezing 30 days #18 grams flash glucose scanning reader #1 ea 12/18/21 (FreeStyle Waldemar 14 Day [place]) flash glucose sensor (FreeStyle #2 ea 12/18/21 Waldemar 14 Day Sensor kit) glucagon 1 mg solution for 1 mg IM ONCE #1 ea 12/18/21 injection Advair HFA 115 mcg-21 2 puff PO BID 90 days #3 ea 07/09/22 mcg/actuation aerosol inhaler (fluticasone propion-salmeterol) atorvastatin 40 mg tablet 40 mg PO DAILY #90 tabs 09/27/22 estradiol 0.01% (0.1 mg/gram) See Rx Instructions vaginal DAILY 11/15/22 vaginal cream (Estrace) #42.5 grams tramadol 50 mg tablet 50 mg PO BID PRN pain 21 days #42 01/24/23 tabs Lexapro 10 mg tablet (escitalopram 10 mg PO DAILY #90 tabs 02/18/23 oxalate) Eliquis 5 mg tablet (apixaban) 5 mg PO BID 90 days #180 tabs 03/10/23 cholecalciferol (vitamin D3) 50 50 mcg PO DAILY #90 caps 05/23/23 mcg (2,000 unit) capsule Cipro 500 mg tablet (ciprofloxacin 500 mg PO BID 5 days #10 tabs 07/23/23 HCl) oxycodone 5 mg tablet 5 mg PO BID PRN pain #7 tabs 07/28/23 Allergies Allergy/AdvReac Type Severity Reaction Status Date / Time naproxen [From NAPROSYN] Allergy Severe sensitivity Verified 07/21/23 12:34 niacin Allergy Severe Rash Verified 07/21/23 12:34 [From NIASPAN EXTENDED-RELEASE] acetaminophen [From Percocet] Allergy Mild Itching Verified 07/21/23 12:34 clarithromycin [From BIAXIN] Allergy Mild sensitivity Verified 07/21/23 12:34 codeine [CODEINE] Allergy Mild Itching Verified 07/21/23 12:34 esomeprazole [From Nexium] Allergy Mild Hives Verified 07/21/23 12:34 fluconazole [From DIFLUCAN] Allergy Mild sensitivity Verified 07/21/23 12:34 gatifloxacin [From TEQUIN] Allergy Mild sensitivity Verified 07/21/23 12:34 hydrocodone [From Vicodin] Allergy Mild Rash Verified 07/21/23 12:34 levofloxacin [From Levaquin] Allergy Mild sensitivity Verified 07/21/23 12:34 oxycodone [From Percocet] Allergy Mild Itching Verified 07/21/23 12:34 quinidine [QUINIDINE] Allergy Mild sensitivity Verified 07/21/23 12:34 Sulfa (Sulfonamide Allergy Mild Rash Verified 07/21/23 12:34 Antibiotics) [SULFA (SULFONAMIDE ANTIBIOTICS)] terfenadine [From SELDANE] Allergy Mild sensitivity Verified 07/21/23 12:34 tetracycline [TETRACYCLINE] Allergy Mild sensitivity Verified 07/21/23 12:34 tramadol [From Ultracet] Allergy Mild Rash Verified 07/21/23 12:34 cefaclor [From CECLOR] AdvReac Severe Unknown Verified 07/21/23 12:34 cefdinir AdvReac Intermediate Stomach Verified 07/21/23 12:34 Upset nitrofurantoin AdvReac Intermediate Stomach Verified 07/21/23 12:34 [From Macrobid] Upset montelukast [From Singulair] AdvReac Mild Headache Verified 07/21/23 12:34 topiramate [From TOPAMAX] AdvReac Mild Stomach Verified 07/21/23 12:34 Upset Review of Systems 2 Review of Systems: all other systems are reviewed and are negative Constitutional: Reports as per HPI and Reports no additional constitutional complaints Eyes: Reports as per HPI and Reports no additional eye complaints Reports system reviewed and no additional complaints, except as documented Cardiovascular: Reports as per HPI and Reports no additional cardiovascular complaints Respiratory: Reports as per HPI and Reports no additional respiratory complaints Gastrointestinal: Reports as per HPI and Reports no additional gastrointestinal complaints Genitourinary: Reports no additional female genitourinary complaints Musculoskeletal: Reports no additional musculoskeletal complaints Skin/Breast: Reports system reviewed and no additional complaints, except as docu Psychiatric: Reports no additional psychiatric complaints Endocrine: Reports no additional endocrine complaints Hematologic/Lymphatic: Reports no additional hematologic/lymphatic complaints Allergic/Immunologic: Reports no additional allergic/immunologic complaints Reports system reviewed and no additional complaints, except as documented and Reports Abnormal speech present [facility] Past Medical History Medical History Recurrent UTI Ocular migraine Hyperlipidemia History of CVA (cerebrovascular accident) (~2020) Tubular adenoma of colon (~2005) SERG (obstructive sleep apnea) Nasal vestibulitis Degeneration, intervertebral disc, cervical Dry eye PONV (postoperative nausea and vomiting) Arthritis of neck Anxiety Palpitation Cerebral microvascular disease Atherosclerotic cardiovascular disease Precordial chest pain URI (upper respiratory infection) Overactive bladder Microscopic hematuria Urinary urgency Osteoporosis (~1999) Renal cyst Dyspnea Mycobacterial disease GERD (gastroesophageal reflux disease) Cough Pulmonary nodules COPD (chronic obstructive pulmonary disease) Surgical History History of fusion of cervical spine History of sinus surgery History of colonoscopy History of esophagogastroduodenoscopy (EGD) History of bladder suspension procedure Family History Family History Son No problems noted. Social History Social History Household Members: Spouse Housing: [facility] Do you presently have visiting nurse or other home services: No Alcohol intake: never Patient Tobacco Use Status: Never used Tobacco Years Smoked: parent and smoker e-Cigarette/Vaping Use: Never Used Second Hand Smoke Exposure: Yes Advance Directives: Yes Advance Directives on File: Yes Advance Directives Date on File: 08/16/20 service: No Current occupational status: retired Current occupation: right hand Cognitive needs: No Hearing needs: Yes (hearing aides) Vision needs: Yes (Glasses) Physical Exam ED Vital Signs: Vital Signs - 24 hr 07/28/23 11:50 07/28/23 14:50 Temperature 98.1 F Pulse Rate 77 66 Respiratory Rate 16 14 Blood Pressure 126/97 H 113/78 Pulse Oximetry 98 98 Oxygen Delivery Method Room Air Room Air BMI result Body Mass Index 20.4 Vital signs have been reviewed and appear to be correct. Blood pressure elevated. Heart rate normal. Respiratory rate normal. Temperature normal. Oxygen saturation normal. Appearance: Alert. Oriented X3. No acute distress. Head: Normal external exam. Normocephalic. Atraumatic. No Luna signs noted. No raccoon eyes noted Eyes: PERRLA. EOMI. Conjunctiva and sclera normal. Eyelids normal. ENT: TM's Normal. Pharynx normal. Uvula midline. Moist mucous membranes. No trismus noted. No drooling noted. No muffled voice noted. Neck: Normal inspection. Neck supple. FROM. No adenopathy. Thyroid Normal. No meningeal signs. No neck mass noted. CVS: Normal heart rate and rhythm. Heart sound normal. No murmurs noted. Pulses normal throughout. Respiratory: No respiratory distress. Painless inspiration. Breath sounds normal. No wheezes/rales/rhonchi noted. Chest nontender. No accessory muscle usage noted or decreased air movement noted. Abdomen: Soft and nontender. Bowel sounds normal in all 4 quadrants. No distention noted. No organomegaly noted. No visible injury noted. Back: No CVA tenderness. Full range of motion noted. Skin: Skin warm and dry. Normal skin color. Normal skin turgor. No rashes/lesions/lacerations noted. Extremities: No lower extremity edema. Extremities exhibit normal range of motion. Extremities nontender. Neuro: Oriented X 3. Cranial nerve exam: II-XII are grossly intact No motor deficit. No sensory deficit. Reflexes normal. Course Course Course Narrative: RME performed by Gwendolyn Esparza PA-C. Patient is a 77 year old assigned female at presenting to the emergency department with right sided back and scapular pain. Worse with movement. Labs and imaging ordered. Patient placed back in the waiting room pending room availability and results. Reevaluation(s) Reevaluation #1: 77-year-old female came in with right scapular pleuritic pain, unremarkable workup for ACS/ pulmonary embolism negative troponin/EKG /D-dimer. Patient feels better with morphine orally, will discharge the patient on oxycodone ( patient do not have a true allergy to oxycodone ) patient was instructed to return if pain persist, follow-up with PCP. Medications Administered Discontinued Medications Generic Name Dose Route Start Last Admin Trade Name Freq PRN Reason Stop Dose Admin Morphine Sulfate 7.5 mg 07/28/23 14:19 07/28/23 14:21 Morphine Sulfate Er 15 Mg Tablet.Er PO 07/28/23 14:20 Not Given ONCE ONE Tramadol HCl 25 mg 07/28/23 12:15 07/28/23 12:26 Tramadol Hcl 50 Mg Tablet PO 07/28/23 12:16 25 mg ONCE ONE Administration Medical Decision Making Differential Diagnosis Differential Diagnoses: The differential diagnosis associated with the presentation includes ( ACS, pulmonary embolism, pneumonia, pneumothorax, pleural effusion, severe anemia, electrolyte abnormality.) Admission/Observation Consideration of admission/observation: Escalation of care including admission/observation considered Lab Data MDM Lab Attestation statement: I reviewed the patient's lab results. 07/28/23 12:56 07/28/23 12:57 Labs: Lab Results 07/28/23 07/28/23 Range/Units 12:56 12:57 WBC 8.8 (4.8-10.8) X10*3/uL RBC 4.21 (4.20-5.50) X10*6/uL Hgb 12.7 (12.0-16.0) g/dl Hct 38.2 (37.0-47.0) % MCV 90.7 (80.0-98.0) fL MCH 30.2 (27.0-33.0) pg MCHC 33.2 (31.0-35.0) g/dl RDW 13.3 (11.0-16.0) % Plt Count 235 (160-400) X10*3/uL MPV 9.2 L (9.4-12.3) fL Immature Gran % (Auto) 0.3 (0.0-0.4) % Neut % (Auto) 63.0 (45-73) % Lymph % (Auto) 24.2 (20-40) % Nuckolls % (Auto) 10.2 (2-11) % Eos % (Auto) 1.7 (0-4) % Baso % (Auto) 0.6 (0-2) % Lymph # (Auto) 2.1 (1.2-4.9) X10*3/uL [place]oll[place] # (Auto) 0.9 (0.1-1.2) X10*3/uL Eos # (Auto) 0.2 (0.0-0.4) X10*3/uL Baso # (Auto) 0.1 (0.0-0.2) X10*3/uL Abs Immat Gran (auto) 0.03 (0.00-0.03) X10*3/uL Absolute Neuts (auto) 5.6 (2.0-8.3) x10*3/uL Absolute Nucleated RBC 0.000 (0.0-0.012) X10*3/uL Nucleated RBC % (auto) 0.0 (0.0-0.2) /100WBC PT 14.6 H (11.1-13.3) SEC INR 1.2 H (0.9-1.1) APTT 34.9 (26.0-36.4) SEC D-Dimer High Sensitivty < 150 NG/ML Sodium 140 (135-145) mmol/L Potassium 3.8 (3.3-5.1) mmol/L Chloride 108 (96-108) mmol/L Carbon Dioxide 24 (22-29) mmol/L Anion Gap 12 (12-20) BUN 11 (9-16) mg/dL Creatinine 0.71 (0.5-1.4) mg/dL Estim Creat Clear Calc 49.1 Estimated GFR > 60 Random Glucose 89 (60-115) mg/dL Calcium 9.7 (8.4-10.2) mg/dL Magnesium 2.1 (1.6-2.6) mg/dL Total Bilirubin 1.0 (0.0-1.0) mg/dL AST 18 (5-31) U/L ALT 9 (0-31) U/L Alkaline Phosphatase 79 (39-117) U/L Troponin I High Sens < 2.7 (<3.5-17.0) ng/L Total Protein 6.9 (6.5-8.0) g/dL Albumin 4.3 (3.5-5.0) g/dL Radiology Impression Discussion of test interpretation with radiology: I have reviewed the radiologist's reading. Discharge Plan Discharge Clinical Impression: Pleuritic chest pain Patient Disposition: Home, Self-Care Instructions: Pleurisy (ED) Prescriptions: New oxycodone 5 mg tablet 5 mg PO BID PRN (Reason: pain) Qty: 7 0RF Rx Instructions: Partial Fill upon patient request. No Action albuterol sulfate 2.5 mg /3 mL (0.083 %) solution for nebulization 2.5 mg inhalation Q6H PRN (Reason: shortness of breath or wheezing) 30 Days Qty: 270 11RF glucagon 1 mg recon soln 1 mg IM ONCE Qty: 1 5RF (DME) FreeStyle Waldemar 14 Day [place] Misc See Rx Instructions .Route Qty: 1 0RF Rx Instructions: As directed (DME) FreeStyle Waldemar 14 Day Sensor Kit See Rx Instructions .Route Qty: 2 4RF Rx Instructions: As directed Advair HFA 115-21 mcg/actuation HFA aerosol inhaler 2 puff PO BID 90 Days Qty: 3 3RF atorvastatin 40 mg tablet 40 mg PO DAILY Qty: 90 1RF estradiol [Estrace] 0.01 % (0.1 mg/gram) cream See Rx Instructions vaginal DAILY Qty: 42.5 0RF Rx Instructions: pea size amount to urethra vaginally daily tramadol 50 mg tablet 50 mg PO BID PRN (Reason: pain) 21 Days Qty: 42 0RF Rx Instructions: ULTRAM Brand name escitalopram oxalate [Lexapro] 10 mg tablet 10 mg PO DAILY Qty: 90 0RF Rx Instructions: Brand name only Eliquis 5 mg tablet 5 mg PO BID 90 Days Qty: 180 3RF cholecalciferol (vitamin D3) 50 mcg (2,000 unit) capsule 50 mcg PO DAILY Qty: 90 1RF ciprofloxacin HCl [Cipro] 500 mg tablet 500 mg PO BID 5 Days Qty: 10 0RF lidocaine [Lidocaine Pain Relief] 4 % Adhesive Patch,Medicated 1 patch transdermal DAILY Qty: 30 0RF Protocol: Apply to: Apply to: R shoulder neomycin-polymyxin B-dexameth 3.5mg/mL-10,000 unit/mL-0.1 % drops,suspension 1 drp ophthalmic (eye) Q6H Tyrvaya 0.03 mg/spray spray, metered, non-aerosol 1 spray intranasal BID Rx Instructions: administer into each nostril; approximately 12 hours apart ophthalmology- natural tear loratadine [Claritin] 10 mg tablet 10 mg PO DAILY Tyrvaya 0.03 mg/spray spray, metered, non-aerosol 1 spray intranasal BID Rx Instructions: administer into each nostril; approximately 12 hours apart coenzyme Q10 [Co Q-10] 10 mg capsule 10 mg PO TID prochlorperazine maleate [Compazine] 10 mg tablet 10 mg PO Q8H PRN (Reason: Nausea) vitamin B complex [B Complex-Vitamin B12] Tablet 1 tab PO DAILY albuterol sulfate 90 mcg/actuation HFA aerosol inhaler 2 inh inhalation Q6H PRN (Reason: shortness of breath or wheezing) 30 Days Qty: 18 12RF (DME) nebulizers Misc See Rx Instructions .Route Rx Instructions: As directed Referrals: Po,Lorenver O, MD [Primary Care Provider] -
[2023-07-28 11:50] VITALS: BP 126/97; PULSE 77; RESP 16; TEMP 36.7; O2SAT 98; BMI 20.4
--- NOTE | 2023-07-28 11:50 | ECG_ITS ---
Test Reason : SCAPULAR/BACK PAIN Blood Pressure : / mmHG Vent. Rate : 065 BPM Atrial Rate : 065 BPM P-R Int : 146 ms QRS Dur : 086 ms QT Int : 434 ms P-R-T Axes : 070 -17 012 degrees QTc Int : 451 ms Normal sinus rhythm Normal ECG When compared with ECG of 03-AUG-2021 17:57, Vent. rate has decreased BY [address] no longer depressed in Anterior leads Nonspecific T wave abnormality no longer evident in Lateral leads Referred By: Gwendolyn Esparza Electronically Signed By:NADINE ALONSO
[2023-07-28] MEDS: traMADoL HCL 50 MG TABLET 25 MG PO (12:26)
[2023-07-28 13:06] LABS: MANUAL DIFF FLAG NO
[2023-07-28 13:07] LABS: Basophils Absolute Auto 0.1 X10*3/uL (0.0-0.2); Basophils Percent Auto 0.6 % (0-2); Eosinophils Absolute Auto 0.2 X10*3/uL (0.0-0.4); Eosinophils Percent Auto 1.7 % (0-4); Hematocrit 38.2 % (37.0-47.0); Hemoglobin 12.7 g/dl (12.0-16.0); Imm Gran Abs Auto 0.03 X10*3/uL (0.00-0.03); Imm Gran Pct Auto 0.3 % (0.0-0.4); Lymphocytes Absolute Auto 2.1 X10*3/uL (1.2-4.9); Lymphocytes Percent Auto 24.2 % (20-40); Mean Corpuscular HGB Conc 33.2 g/dl (31.0-35.0); Mean Corpuscular Hemoglobin 30.2 pg (27.0-33.0); Mean Corpuscular Volume 90.7 fL (80.0-98.0); Mean Platelet Volume 9.2 fL (9.4-12.3); Monocytes Absolute Auto 0.9 X10*3/uL (0.1-1.2); Monocytes Percent Auto 10.2 % (2-11); Neutrophils Absolute Auto 5.6 x10*3/uL (2.0-8.3); Platelet Count 235 X10*3/uL (160-400); Red Blood Count 4.21 X10*6/uL (4.20-5.50); Red Cell Distribution Width 13.3 % (11.0-16.0); White Blood Count 8.8 X10*3/uL (4.8-10.8)
[2023-07-28 13:14] LABS: INTERNATIONAL NORM RATIO 1.2 (0.9-1.1); Prothrombin Time 14.6 SEC (11.1-13.3)
[2023-07-28 13:17] LABS: Partial Thromboplastin Time 34.9 SEC (26.0-36.4)
[2023-07-28 13:19] LABS: D Dimer High Sensitivity < 150 NG/ML
[2023-07-28 13:23] LABS: Alanine Aminotransferase 9 U/L (0-31); Albumin Level 4.3 g/dL (3.5-5.0); Alkaline Phosphatase 79 U/L (39-117); Anion Gap 12 (12-20); Aspartate Amino Transferase 18 U/L (5-31); Blood Urea Nitrogen 11 mg/dL (9-16); Calcium 9.7 mg/dL (8.4-10.2); Carbon Dioxide 24 mmol/L (22-29); Chloride 108 mmol/L (96-108); Creatinine Clr Calc Pharmacy 49.1; Estimated Glomerular Filt Rate > 60; Glucose Random 89 mg/dL (60-115); Magnesium 2.1 mg/dL (1.6-2.6); Potassium 3.8 mmol/L (3.3-5.1); Sodium 140 mmol/L (135-145); Total Protein 6.9 g/dL (6.5-8.0)
[2023-07-28 13:34] LABS: Troponin-I High Sensitivity < 2.7 ng/L (<3.5-17.0)
[2023-07-28 14:50] VITALS: BP 113/78; PULSE 66; RESP 14; O2SAT 98
--- NOTE | 2023-07-28 14:56 | PC.NURSE ---
patient states pain is improving after morphine
== END 2023-07-28 16:23 | disposition home or self-care (01) ==
PROVIDERS: Physician Assistant Medical; Emergency Provider Emergency Medicine; PCP Internal Medicine
DX: R07.89 Other chest pain (principal); E78.5 Hyperlipidemia, unspecified; Z86.73 Personal history of transient ischemic attack (TIA), and cerebral infarction without residual deficits; J44.9 Chronic obstructive pulmonary disease, unspecified; Z79.899 Other long term (current) drug therapy
CPT/HCPCS: 36415; 71046; 80053; 83735; 84484; 85025; 85379; 85610; 85730; 93005; 99283; 99284

== ENCOUNTER 2023-08-05 10:49 | Outpatient (AMB) | payer MEDICARE, OTHER, SELFPAY ==
--- NOTE | 2023-08-05 10:51 | AM.OFFVISNUR ---
Intake Intake Visit Reasons: Flu Shot Allergies naproxen [From NAPROSYN] Allergy (Severe, Verified 07/21/23 12:34) sensitivity niacin [From NIASPAN EXTENDED-RELEASE] Allergy (Severe, Verified 07/21/23 12:34) Rash acetaminophen [From Percocet] Allergy (Mild, Verified 07/21/23 12:34) Itching clarithromycin [From BIAXIN] Allergy (Mild, Verified 07/21/23 12:34) sensitivity codeine [CODEINE] Allergy (Mild, Verified 07/21/23 12:34) Itching esomeprazole [From Nexium] Allergy (Mild, Verified 07/21/23 12:34) Hives fluconazole [From DIFLUCAN] Allergy (Mild, Verified 07/21/23 12:34) sensitivity gatifloxacin [From TEQUIN] Allergy (Mild, Verified 07/21/23 12:34) sensitivity hydrocodone [From Vicodin] Allergy (Mild, Verified 07/21/23 12:34) Rash levofloxacin [From Levaquin] Allergy (Mild, Verified 07/21/23 12:34) sensitivity oxycodone [From Percocet] Allergy (Mild, Verified 07/21/23 12:34) Itching quinidine [QUINIDINE] Allergy (Mild, Verified 07/21/23 12:34) sensitivity Sulfa (Sulfonamide Antibiotics) [SULFA (SULFONAMIDE ANTIBIOTICS)] Allergy (Mild, Verified 07/21/23 12:34) Rash terfenadine [From SELDANE] Allergy (Mild, Verified 07/21/23 12:34) sensitivity tetracycline [TETRACYCLINE] Allergy (Mild, Verified 07/21/23 12:34) sensitivity tramadol [From Ultracet] Allergy (Mild, Verified 07/21/23 12:34) Rash cefaclor [From CECLOR] Adverse Reaction (Severe, Verified 07/21/23 12:34) Unknown cefdinir Adverse Reaction (Intermediate, Verified 07/21/23 12:34) Stomach Upset nitrofurantoin [From Macrobid] Adverse Reaction (Intermediate, Verified 07/21/23 12:34) Stomach Upset montelukast [From Singulair] Adverse Reaction (Mild, Verified 07/21/23 12:34) Headache topiramate [From TOPAMAX] Adverse Reaction (Mild, Verified 09/18/23 12:34) Stomach Upset Office Procedures Flu Questionnaire Does the patient have a severe egg allergy?: No Does the patient have severe life threatening allergies?: No Does the patient have a fever or illness today?: No Has the patient ever had Guillain-[place] Syndrome?: No Has the patient ever had any past reaction to a flu shot?: No Immunizations flu vacc [id number] 6mos up(PF) 60 mcg(15 mcgx4)/0.5 mL IM syringe Performing Provider: Abby Potter MD [facility] Administered by: Vashti Gabriel CMA on 08/05/23 10:51 Dose Route Admin Location Dispensed Lot Number Expiration Date [employer] Intern 0.5 mL IM Left Deltoid 0.5 mL [id number] 05/02/24 06793-612-14 [employer] VIS Given Date VIS Provided VIS Publication Date 08/05/23 Single Vaccine 21 Eligibility Eligibility Date Funding Source Not [facility] Eligible 08/05/23 Private Coding Assessment & Plan Assessment & Plan Orders: Orders Influenza [id number] Immunization Today Z23 - Encounter for immunization
== END 2023-08-05 10:53 | disposition home or self-care (01) ==
LOC: HO.HMGH 10:49
PROVIDERS: PCP Internal Medicine; Visit Provider Internal Medicine
DX: Z23 Encounter for immunization (principal)
CPT/HCPCS: 90471; 90686

== ENCOUNTER 2023-08-07 10:48 | Outpatient (REF) | payer MEDICARE, OTHER, SELFPAY | END 2023-08-07 10:49 | disposition home or self-care (01) | LOC: HO.XRAY 10:48 | PROVIDERS: PCP Internal Medicine; Visit Provider Physical Medicine & Rehabilitation | DX: M16.11 Unilateral primary osteoarthritis, right hip (principal); M70.61 Trochanteric bursitis, right hip | CPT/HCPCS: 73502 ==

== ENCOUNTER 2023-08-15 09:11 | Outpatient (REF) | payer MEDICARE, OTHER, SELFPAY ==
[2023-08-15 09:38] LABS: MANUAL DIFF FLAG NO
[2023-08-15 10:18] LABS: Influenza A PCR NEGATIVE (Negative); Influenza B PCR NEGATIVE (Negative); Resp Syncy Virus RNA Qual PCR NEGATIVE (Negative); SARS COV2 PCR INHOUSE NEGATIVE (Negative)
[2023-08-15 11:26] LABS: Basophils Percent Auto 0.3 % (0-2); Eosinophils Absolute Auto 0.1 X10*3/uL (0.0-0.4); Eosinophils Percent Auto 0.8 % (0-4); Hematocrit 37.6 % (37.0-47.0); Hemoglobin 11.9 g/dl (12.0-16.0); Imm Gran Abs Auto 0.07 X10*3/uL (0.00-0.03); Imm Gran Pct Auto 0.5 % (0.0-0.4); Lymphocytes Absolute Auto 1.3 X10*3/uL (1.2-4.9); Lymphocytes Percent Auto 10.5 % (20-40); Mean Corpuscular HGB Conc 31.6 g/dl (31.0-35.0); Mean Corpuscular Hemoglobin 29.8 pg (27.0-33.0); Mean Platelet Volume 9.7 fL (9.4-12.3); Monocytes Absolute Auto 1.2 X10*3/uL (0.1-1.2); Monocytes Percent Auto 9.3 % (2-11); Neutrophils Absolute Auto 10.1 x10*3/uL (2.0-8.3); Neutrophils Percent Auto 78.6 % (45-73); Platelet Count 271 X10*3/uL (160-400); Red Cell Distribution Width 13.5 % (11.0-16.0); White Blood Count 12.8 X10*3/uL (4.8-10.8)
[2023-08-15 12:28] LABS: Alanine Aminotransferase 9 U/L (0-31); Albumin Level 4.2 g/dL (3.5-5.0); Alkaline Phosphatase 86 U/L (39-117); Anion Gap 14 (12-20); Aspartate Amino Transferase 17 U/L (5-31); Blood Urea Nitrogen 9 mg/dL (9-16); Calcium 9.5 mg/dL (8.4-10.2); Carbon Dioxide 24 mmol/L (22-29); Chloride 105 mmol/L (96-108); Cholesterol 145 mg/dL (<200); Estimated Glomerular Filt Rate > 60; Glucose Random 93 mg/dL (60-115); HDL Cholesterol 69 mg/dL (>40); LDL Cholesterol Calculated 66 mg/dL (<100); Potassium 4.3 mmol/L (3.3-5.1); Sodium 139 mmol/L (135-145); Total Protein 6.8 g/dL (6.5-8.0); Triglycerides 50 mg/dL (<150)
[2023-08-15 12:35] LABS: Free T4 (Free Thyroxine) 0.82 ng/dL (0.71-1.85); Thyroid Stimulating Hormone 0.49 uIU/mL (0.32-4.0); Vitamin D 25-OH Total 40.1 ng/mL (>30)
[2023-08-15 12:51] LABS: Folate 5.9 ng/mL (> or = 4.0); Vitamin B12 926 pg/mL (200-900)
== END 2023-08-15 09:12 | disposition home or self-care (01) ==
LOC: HO.LAB 09:11
PROVIDERS: PCP Internal Medicine; Visit Provider Internal Medicine
DX: E78.5 Hyperlipidemia, unspecified (principal); R09.89 Other specified symptoms and signs involving the circulatory and respiratory systems; M81.0 Age-related osteoporosis without current pathological fracture; Z11.52 Encounter for screening for COVID-19
CPT/HCPCS: 0241U; 80053; 80061; 82306; 82607; 82746; 84439; 84443; 85025

== ENCOUNTER 2023-08-20 14:04 | Outpatient (AMB) | payer MEDICARE, OTHER, SELFPAY ==
[2023-08-20 14:23] VITALS: BP 120/52; PULSE 88; O2SAT 96; BMI 20.3
--- NOTE | 2023-08-20 14:23 | MHC.PC.OV ---
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 Accompanied by: Self / Same As Patient Allergies naproxen [From NAPROSYN] Allergy (Severe, Verified 07/21/23 12:34) sensitivity niacin [From NIASPAN EXTENDED-RELEASE] Allergy (Severe, Verified 07/21/23 12:34) Rash acetaminophen [From Percocet] Allergy (Mild, Verified 07/21/23 12:34) Itching clarithromycin [From BIAXIN] Allergy (Mild, Verified 07/21/23 12:34) sensitivity codeine [CODEINE] Allergy (Mild, Verified 07/21/23 12:34) Itching esomeprazole [From Nexium] Allergy (Mild, Verified 07/21/23 12:34) Hives fluconazole [From DIFLUCAN] Allergy (Mild, Verified 07/21/23 12:34) sensitivity gatifloxacin [From TEQUIN] Allergy (Mild, Verified 07/21/23 12:34) sensitivity hydrocodone [From Vicodin] Allergy (Mild, Verified 07/21/23 12:34) Rash levofloxacin [From Levaquin] Allergy (Mild, Verified 07/21/23 12:34) sensitivity oxycodone [From Percocet] Allergy (Mild, Verified 07/21/23 12:34) Itching quinidine [QUINIDINE] Allergy (Mild, Verified 07/21/23 12:34) sensitivity Sulfa (Sulfonamide Antibiotics) [SULFA (SULFONAMIDE ANTIBIOTICS)] Allergy (Mild, Verified 07/21/23 12:34) Rash terfenadine [From SELDANE] Allergy (Mild, Verified 07/21/23 12:34) sensitivity tetracycline [TETRACYCLINE] Allergy (Mild, Verified 07/21/23 12:34) sensitivity tramadol [From Ultracet] Allergy (Mild, Verified 07/21/23 12:34) Rash cefaclor [From CECLOR] Adverse Reaction (Severe, Verified 07/21/23 12:34) Unknown cefdinir Adverse Reaction (Intermediate, Verified 07/21/23 12:34) Stomach Upset nitrofurantoin [From Macrobid] Adverse Reaction (Intermediate, Verified 07/21/23 12:34) Stomach Upset montelukast [From Singulair] Adverse Reaction (Mild, Verified 07/21/23 12:34) Headache topiramate [From TOPAMAX] Adverse Reaction (Mild, Verified 07/21/23 12:34) Stomach Upset Medication List - Last Reconciled 08/20/23 by Abby Marc Po, MD Reyna HFA 115-21 mcg/actuation (fluticasone propion-salmeterol) 2 puffs PO BID 90 days NS albuterol sulfate 2.5 mg (3 mL) inhalation Q6H PRN 30 days albuterol sulfate 90 mcg/actuation 2 inhalations inhalation Q6H PRN 30 days amoxicillin-pot clavulanate 500-125 mg (Augmentin) 1 tab PO TID atorvastatin 40 mg PO DAILY benzonatate 200 mg PO BID-TID PRN NS cholecalciferol (vitamin D3) 50 mcg PO DAILY Cipro (ciprofloxacin HCl) 500 mg PO BID 5 days NS coenzyme Q10 (Co Q-10) 10 mg PO TID Eliquis (apixaban) 5 mg PO BID 90 days NS estradiol 0.01%(0.1mg/gram) (Estrace) pea size amount to urethra vaginally daily flash glucose scanning reader ([employer] 14 Day [place]) As directed flash glucose sensor ([employer] Waldemar 14 Day Sensor kit) As directed glucagon 1 mg IM ONCE hydrocodone-chlorpheniramine 10-8 mg/5 mL 5 mL PO .Qhs PRN 14 days NS Lexapro (escitalopram oxalate) 10 mg PO DAILY NS lidocaine 4% (Lidocaine Pain Relief) 1 patch See Protocol transdermal DAILY loratadine (Claritin) 10 mg PO DAILY nebulizers As directed neomycin-polymyxin B-dexameth 3.5mg/mL-10,000 unit/mL-0.1 % 1 drp ophthalmic (eye) Q6H oxycodone 5 mg PO BID PRN prochlorperazine maleate (Compazine) 10 mg PO Q8H PRN tramadol 50 mg PO BID PRN 21 days varenicline (Tyrvaya) 1 spray intranasal BID varenicline (Tyrvaya) 1 spray intranasal BID vitamin B complex (B Complex-Vitamin B12 tablet) 1 tab PO DAILY Tobacco use date assessed: 07/17/23 Fall risk assessment: No Falls in past year Last assessed Fall Risk: 08/20/23 Dental Screening Dental Screen Date: 08/20/23 Did you have a dental visit in the last 12 months?: Yes Did you have a dental problem in the last 6 months where you did not have access to dental care?: No Was dental information given to patient?: Patient has dentist HPI persistent cough HPI Details 77-year-old female with a history of osteoporosis, cervical degenerative disc disease GERD sleep apnea COPD CVA and generalized anxiety disorder last seen in July 2023. COVID, flu and RSV couple of weeks ago then started to have some cough patient has called in to ask for cough medication as well as an antibiotic. Patient continued to cough prompting for consultation. after vaccine, ndid not want to do anything, runny nose and cough with greesnish discharge, has sore throat, ? blowing L ear, , feels heavy with L chest pain PFSH Medical History Recurrent UTI Ocular migraine Hyperlipidemia History of CVA (cerebrovascular accident) (~2020) Tubular adenoma of colon (~2005) SERG (obstructive sleep apnea) Nasal vestibulitis Degeneration, intervertebral disc, cervical Dry eye PONV (postoperative nausea and vomiting) Arthritis of neck Anxiety Palpitation Cerebral microvascular disease Atherosclerotic cardiovascular disease Precordial chest pain URI (upper respiratory infection) Overactive bladder Microscopic hematuria Urinary urgency Osteoporosis (~1999) Renal cyst Dyspnea Mycobacterial disease GERD (gastroesophageal reflux disease) Cough Pulmonary nodules COPD (chronic obstructive pulmonary disease) Surgical History History of fusion of cervical spine History of sinus surgery History of colonoscopy History of esophagogastroduodenoscopy (EGD) History of bladder suspension procedure Family History Son No problems noted. Social History Household Members: Spouse Housing: Condominium Do you presently have visiting nurse or other home services: No Alcohol intake: never Patient Tobacco Use Status: Never used Tobacco Years Smoked: parent and smoker e-Cigarette/Vaping Use: Never Used Second Hand Smoke Exposure: Yes Advance Directives Date on File: 08/16/20 service: No Current occupational status: retired Current occupation: right hand Cognitive needs: No Hearing needs: Yes (hearing aides) Vision needs: Yes (Glasses) Questionnaire Thrive Questionnaire Date Thrive assessed: 07/17/23 SAVANNAH-7 AMB Questionnaire SAVANNAH-7 Date SAVANNAH - 7 assessed: 07/17/23 Source: Developed by Drs. Augie Espinoza, Yue Griffin, Michael Gallo and colleagues, with an educational aniya from [employer]). Physical exam (Primary Care) Vital Signs: Last Vital Signs Pulse 88 08/20/23 14:23 BP 120/52 L 08/20/23 14:23 Pulse Ox 96 08/20/23 14:23 Oxygen Delivery Method Room Air 08/20/23 14:23 BMI result Body Mass Index 20.3 Tobacco/Smoking Status: Tobacco use Status Tobacco use date assessed 07/17/23 08/20/23 14:29 Patient Tobacco Use Status Never used Tobacco 08/20/23 14:29 e-Cigarette/Vaping Use Never Used 08/20/23 14:29 Thrive Assessment: Date of Thrive Assessment Date Thrive assessed 07/17/23 08/20/23 14:29 Const General: alert; No acute distress Eyes Conjunctivae: conjunctivae normal Resp Auscultation: clear to auscultation bilaterally Cardio Rate: regular rate Rhythm: regular rhythm GI Inspection: Yes normal to inspection Extrem General: Yes normal to inspection and No edema Assessment and Plan Assessment & Plan (1) Acute bronchitis: Code(s): J20.9 - Acute bronchitis, unspecified Plan: Patient presently on Augmentin and advised to continue with it. Mucinex can be used p.r.n. to help bring up the phlegm as an expectorant. May take in the morning. Tussionex prescription sent in to the pharmacy to use at night p.r.n. so that it helps came the cough. Orders: Orders XR chest 2V Today J20.9 - Acute bronchitis, unspecified Medications: New hydrocodone-chlorpheniramine 10-8 mg/5 mL Partial Fill upon patient request. 5 mL PO .Qhs PRN 70 mL 0RF cold symptoms 14 days NS J20.9 - Acute bronchitis, unspecified Coding Level of Care Code Est Pt Level 3 (30681) Diagnoses Acute bronchitis J20.9
== END 2023-08-20 14:51 | disposition home or self-care (01) ==
PROVIDERS: PCP Internal Medicine; Visit Provider Internal Medicine
DX: J20.9 Acute bronchitis, unspecified (principal)
CPT/HCPCS: 99213

== ENCOUNTER 2023-08-22 10:46 | Outpatient (REF) | payer MEDICARE, OTHER, SELFPAY ==
--- NOTE | ~2023-08-22 | XR_ITS ---
EXAMINATION: XR CHEST CLINICAL INFORMATION: Bronchitis COMPARISON: 07/28/2023 TECHNIQUE: 2 views of the chest were obtained. FINDINGS: Chronic blunting of the left costophrenic angle appears similar. No acute superimposed process. Moderate scoliosis convex right. Cervical fusion changes partially imaged. No significant abnormality is otherwise noted involving the heart, lungs, mediastinum, bony thorax or soft tissues. XR/XR chest 2V IMPRESSION: No active chest disease. Chronic blunting of the left costophrenic angle. Pleural thickening or small nonspecific pleural effusion.
== END 2023-08-22 10:47 | disposition home or self-care (01) ==
LOC: HO.XRAY 10:46
PROVIDERS: PCP Internal Medicine; Referring Provider Internal Medicine; Visit Provider Hospitalist
DX: J41.0 Simple chronic bronchitis (principal)
CPT/HCPCS: 71046

== ENCOUNTER 2023-08-26 08:47 | Outpatient (AMB) | payer MEDICARE, OTHER, SELFPAY ==
--- NOTE | 2023-08-26 08:48 | MHC.PC.OV ---
Intake Visit Reasons: COPD Allergies naproxen [From NAPROSYN] Allergy (Severe, Verified 08/26/23 08:49) sensitivity niacin [From NIASPAN EXTENDED-RELEASE] Allergy (Severe, Verified 08/26/23 08:49) Rash acetaminophen [From Percocet] Allergy (Mild, Verified 08/26/23 08:49) Itching clarithromycin [From BIAXIN] Allergy (Mild, Verified 08/26/23 08:49) sensitivity codeine [CODEINE] Allergy (Mild, Verified 08/26/23 08:49) Itching esomeprazole [From Nexium] Allergy (Mild, Verified 08/26/23 08:49) Hives fluconazole [From DIFLUCAN] Allergy (Mild, Verified 08/26/23 08:49) sensitivity gatifloxacin [From TEQUIN] Allergy (Mild, Verified 08/26/23 08:49) sensitivity hydrocodone [From Vicodin] Allergy (Mild, Verified 08/26/23 08:49) Rash levofloxacin [From Levaquin] Allergy (Mild, Verified 08/26/23 08:49) sensitivity oxycodone [From Percocet] Allergy (Mild, Verified 08/26/23 08:49) Itching quinidine [QUINIDINE] Allergy (Mild, Verified 08/26/23 08:49) sensitivity Sulfa (Sulfonamide Antibiotics) [SULFA (SULFONAMIDE ANTIBIOTICS)] Allergy (Mild, Verified 08/26/23 08:49) Rash terfenadine [From SELDANE] Allergy (Mild, Verified 08/26/23 08:49) sensitivity tetracycline [TETRACYCLINE] Allergy (Mild, Verified 08/26/23 08:49) sensitivity tramadol [From Ultracet] Allergy (Mild, Verified 08/26/23 08:49) Rash cefaclor [From CECLOR] Adverse Reaction (Severe, Verified 08/26/23 08:49) Unknown cefdinir Adverse Reaction (Intermediate, Verified 08/26/23 08:49) Stomach Upset nitrofurantoin [From Macrobid] Adverse Reaction (Intermediate, Verified 08/26/23 08:49) Stomach Upset montelukast [From Singulair] Adverse Reaction (Mild, Verified 08/26/23 08:49) Headache topiramate [From TOPAMAX] Adverse Reaction (Mild, Verified 08/26/23 08:49) Stomach Upset Tobacco use date assessed: 07/17/23 Fall risk assessment: No Falls in past year Last assessed Fall Risk: 08/26/23 Dental Screening Dental Screen Date: 08/26/23 Did you have a dental visit in the last 12 months?: Yes Did you have a dental problem in the last 6 months where you did not have access to dental care?: No Was dental information given to patient?: Patient has dentist HPI COPD HPI Details 77-year-old female with a history of CVA COPD sleep apnea hypercholesterolemia generalized anxiety disorder last seen in 08/20/2023. Patient has been coughing and has been prescribed an antibiotic. Patient is here for follow-up. Chest x-ray was requested with no active disease and a chronic blunting of the left costophrenic angle. Patient is for follow-up through Telehealth. had five days of antibiotic , cough is better and wants to stop med already. started 08/18/2023. [facility] Medical History Recurrent UTI Ocular migraine Hyperlipidemia History of CVA (cerebrovascular accident) (~2020) Tubular adenoma of colon (~2005) SERG (obstructive sleep apnea) Nasal vestibulitis Degeneration, intervertebral disc, cervical Dry eye PONV (postoperative nausea and vomiting) Arthritis of neck Anxiety Palpitation Cerebral microvascular disease Atherosclerotic cardiovascular disease Precordial chest pain URI (upper respiratory infection) Overactive bladder Microscopic hematuria Urinary urgency Osteoporosis (~1999) Renal cyst Dyspnea Mycobacterial disease GERD (gastroesophageal reflux disease) Cough Pulmonary nodules COPD (chronic obstructive pulmonary disease) Surgical History History of fusion of cervical spine History of sinus surgery History of colonoscopy History of esophagogastroduodenoscopy (EGD) History of bladder suspension procedure Family History Son No problems noted. Social History Household Members: Spouse Housing: Condominium Do you presently have visiting nurse or other home services: No Alcohol intake: never Patient Tobacco Use Status: Never used Tobacco Years Smoked: parent and smoker e-Cigarette/Vaping Use: Never Used Second Hand Smoke Exposure: Yes Advance Directives Date on File: 08/16/20 service: No Current occupational status: retired Current occupation: right hand Cognitive needs: No Hearing needs: Yes (hearing aides) Vision needs: Yes (Glasses) Questionnaire PHQ-9 Over the last 2 weeks, how often have you been bothered by any of the following problems? 1. Little interest or pleasure in doing things: several days 2. Feeling down, depressed, or hopeless: several days 3. Trouble falling or staying asleep, or sleeping too much: not at all 4. Feeling tired or having little energy: not at all 5. Poor appetite or overeating: not at all 6. Feeling bad about yourself - or that you are a failure or have let yourself or your family down: not at all 7. Trouble concentrating on things, such as reading the newspaper or watching television: not at all 8. Moving or speaking so slowly that other people could have noticed. Or the opposite - being so fidgety or restless that you have been moving around a lot more than usual: not at all 9. Thoughts that you would be better off or of hurting yourself in some way: not at all Total score: 2 Depression Screening Interpretation: Negative Depression Screening Done: Yes Source: Developed by Drs. Augie Espinoza, Yue Griffin, Michael Gallo and colleagues, with an educational aniya from [employer]. Thrive Questionnaire Date Thrive assessed: 07/17/23 AUDIT C Alcohol Use Questionnaire (AUDIT-C) 1. How often do you have a drink containing alcohol?: Never 3. How often do you have six or more drinks on one occasion?: Never Total Score: 0 SAVANNAH-7 AMB Questionnaire SAVANNAH-7 Date SAVANNAH - 7 assessed: 07/17/23 Source: Developed by Drs. Augie Espinoza, Michael Redding and colleagues, with an educational aniya from [employer]. Physical exam (Primary Care) Tobacco/Smoking Status: Tobacco use Status Tobacco use date assessed 07/17/23 08/26/23 08:50 Patient Tobacco Use Status Never used Tobacco 08/26/23 08:50 e-Cigarette/Vaping Use Never Used 08/26/23 08:50 PHQ-9: PHQ-9 Score PHQ-9: Total score 2 08/26/23 08:50 Depression Screening Interpretation: Negative Thrive Assessment: Date of Thrive Assessment Date Thrive assessed 07/17/23 08/26/23 08:50 Telehealth Telehealth Location of provider rendering services: practice address Location of patient: address on file Patient Identification confirmed using: Name, : Yes Telehealth method: voice only Patient verbally consented to treatment: Yes Patient verbally consented to billing insurance company: Yes Patient informed of any privacy concerns related to visit: Yes Minutes spent on Phone/Video with Pt.: 15 Assessment and Plan Assessment & Plan (1) Acute bronchitis: Code(s): J20.9 - Acute bronchitis, unspecified Plan: resolving- increase oral fluids Coding Level of Care Code Tele Est Pt Level 3 (87413) Diagnoses Acute bronchitis J20.9 Additional Codes PHQ-9 - 02088 - PHQ-9 Billing: ([id number])
== END 2023-08-26 10:12 | disposition home or self-care (01) ==
LOC: HO.HMGH 08:48
PROVIDERS: PCP Internal Medicine; Visit Provider Internal Medicine
DX: J20.9 Acute bronchitis, unspecified (principal)
CPT/HCPCS: 99442

== ENCOUNTER 2023-09-03 08:59 | Outpatient (AMB) | payer MEDICARE, OTHER, SELFPAY ==
[2023-09-03 09:14] VITALS: PULSE 90; O2SAT 98; BMI 20.3
--- NOTE | 2023-09-03 09:14 | A.OFFVIS_ITS ---
Intake Vital Signs 09/03/23 09:14 Height 5 ft Weight 103 lb 13.404 oz BMI 20.3 Pulse 90 Pulse Source Pulse Oximeter Pulse Oximetry (%) 98 Oxygen Delivery Method Room Air Intake Visit Reasons: Dyspnea Acupuncturist Required: No Allergies naproxen [From NAPROSYN] Allergy (Severe, Verified 09/03/23 09:18) sensitivity niacin [From NIASPAN EXTENDED-RELEASE] Allergy (Severe, Verified 09/03/23 09:18) Rash acetaminophen [From Percocet] Allergy (Mild, Verified 09/03/23 09:18) Itching clarithromycin [From BIAXIN] Allergy (Mild, Verified 09/03/23 09:18) sensitivity codeine [CODEINE] Allergy (Mild, Verified 09/03/23 09:18) Itching esomeprazole [From Nexium] Allergy (Mild, Verified 09/03/23 09:18) Hives fluconazole [From DIFLUCAN] Allergy (Mild, Verified 09/03/23 09:18) sensitivity gatifloxacin [From TEQUIN] Allergy (Mild, Verified 09/03/23 09:18) sensitivity hydrocodone [From Vicodin] Allergy (Mild, Verified 09/03/23 09:18) Rash levofloxacin [From Levaquin] Allergy (Mild, Verified 09/03/23 09:18) sensitivity oxycodone [From Percocet] Allergy (Mild, Verified 09/03/23 09:18) Itching quinidine [QUINIDINE] Allergy (Mild, Verified 09/03/23 09:18) sensitivity Sulfa (Sulfonamide Antibiotics) [SULFA (SULFONAMIDE ANTIBIOTICS)] Allergy (Mild, Verified 09/03/23 09:18) Rash terfenadine [From SELDANE] Allergy (Mild, Verified 09/03/23 09:18) sensitivity tetracycline [TETRACYCLINE] Allergy (Mild, Verified 09/03/23 09:18) sensitivity tramadol [From Ultracet] Allergy (Mild, Verified 09/03/23 09:18) Rash cefaclor [From CECLOR] Adverse Reaction (Severe, Verified 09/03/23 09:18) Unknown cefdinir Adverse Reaction (Intermediate, Verified 09/03/23 09:18) Stomach Upset nitrofurantoin [From Macrobid] Adverse Reaction (Intermediate, Verified 09/03/23 09:18) Stomach Upset montelukast [From Singulair] Adverse Reaction (Mild, Verified 09/03/23 09:18) Headache topiramate [From TOPAMAX] Adverse Reaction (Mild, Verified 09/03/23 09:18) Stomach Upset HPI HPI Comments History of Present Illness Details The patient is a 77 y/o woman with pulmonary nodules, COPD and dyspnea. She did have a recent CT scan of the chest that we personally reviewed here in the office. This was with contrast. No evidence of any mediastinal structure abnormalities. The patient did have a slight dilation of the esophagus so therefore we need to monitor closely for reflux. However her lingular nodular densities appear to be a little better to be. She still has the atelectasis to the lingula. Although her pulmonary nodules are small subcentimeter in size and will need follow-up. She is wondering about the hypodensities of the liver and spleen. These appear to be very small and likely benign. We need to continue to monitor did nodules in the low and also those findings. We did look at her CT scan of the chest in a pulmonary nodules have been stable in the level of the lingula some degree of mucous plugging. 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 In the meantime she has pulmonary nodules for next CT scan of the chest is going to be for August of this year. Will follow up with her after that. In the meantime she will continue the azithromycin and follow up with Cardiology regarding her left-sided chest discomfort. I did give her reflux diet she will continue for now to minimize her reflux symptoms. 08/15/2021 the patient is here for a pulmonary follow-up visit. The patient recently was hospitalized after developing stroke like symptoms. She come into the hospital where she was found to have an acute CVA to the cerebellum. The patient is status post tPA. She recovered a good amount of her deficits. Still having some issues with her tongue. In the meantime she is complained of headaches the CTA of the neck demonstrated severe left-sided sinusitis. The patient finished a course azithromycin. She has multiple allergies. But, appears to have sensitivities to penicillin. She does not remember ever having a factor reactions. He will be reasonable to try her again on Augmentin to in case she can not tolerated. She does have Benadryl available if she gets a reaction. In the meantime will going to start her nebulized therapy she does not needed. She can continue with her Advair HFA and also her rescue inhaler. In addition to that she did have an echocardiogram demonstrated a small PFO. When she was having shortness of breath her D-dimers was negative suggesting no evidence of any deep vein thrombosis. Patient also was tested for CTA for PE and that was also negative for any thromboembolic disease. Currently she has a event monitor and being assessed for cardiac arrhythmias to his atrial fibrillation. She is also on Eliquis and she is tolerating that well. 02/13/2022 the patient is here for a pulmonary follow-up visit. Overall she is doing well from a respiratory status. Has not had any significant cough. We did stop her azithromycin based on the fact that she has been on it for a long period time. It appears that the CT scans that she has had previously also demonstrated some degree of stability and the left-sided processes. The patient seems to be doing well off the azithromycin without any worsening symptoms. She does describe increasing dyspnea on exertion specially when going up a flight of stairs. She does continue to use her inhalers which have been partially helpful. The patient describes daytime drowsiness. She usually has to take a nap during the daytime. Her [place] score is elevated 10/24. Based on the fact that the patient has significant cardiovascular and cerebrovascular risk factors and with her increased [place] score the patient needs to undergo a sleep study. 05/13/2022 the patient is here for a pulmonary follow-up visit. Overall the patient has been doing well from a respiratory status. She has not required any antibiotics or prednisone. She does continue with blood thinner with good effect. She also continues use her Advair as prescribed. Today we spent a good time of the visit talking about the advanced directive. The patient would like to be full code. We did talk about the other components advanced life support. The patient would like to proceed with full code but to set up set limits that if her quality of life is going to be limited or if there was a grim prognosis with no foreseeable improvement she would like to avoid prolonged life support measures. She will continue to talk to her family about her wishes and with her proxy. Her last CT scan of the chest was back in the summer of 2020. She did have the small lingular pulmonary nodule but also 1 in the right hemithorax. 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 Also to note the patient did have a sleep study without any evidence of any sleep apnea. 08/13/2022 the patient is here for sick visit. She has been complaining of back discomfort with some pleuritic component for the last several weeks. But feels like it is getting worse. His primarily on the right side of her fatback trimmer to her scapula. She does get pains also when she moves. But now she has been noticing increasing pain when she breathes in. Moderate severity. She has been taking tramadol for the discomfort although makes her very sleepy. In addition to that the patient also has been taking Eliquis. She has been tolerating medicine well. I reassured explained to her that is unlikely to be a clot. The patient is still concerned about having additional strokes. She has noticed some numbness of her left upper extremity specially when she is combing her hair. She is going to continue to monitor symptoms. If she does develop numbness and weakness of any extremity or any new neurological issues she is to call a coming to the ER. She did have an x-ray prior to this visit and also had a CT scan prior last month. No significant changes in the CT scan in the x-ray demonstrates no acute disease. On examination she does not have any crackles or rubs. Therefore reassure that her lungs appear to be okay. Will go ahead and treated with some prednisone just to leave the is some muscle inflammation or pleural inflammation. 08/21/2022 the patient is here for a pulmonary follow-up visit. Her discomfort is now subsided. She did not complete the prednisone since she was better and she does not like the adverse effects. She is it the rest meantime. The patient had a CT scan back in July demonstrating stable chronic findings. No additional testing is warranted. She did also undergo blood work which was reassuring. We did reviewed in the office. At this point the patient continues uses respiratory therapy as prescribed. 02/26/2023 the patient is here for pulmonary follow-up visit. Overall the patient is doing well. Unfortunately she had a bad fall fracturing her right wrist. She does have a cast right now. From a respiratory status the patient started coughing more. For the last few weeks. Moderate severity. She had been using the Advair just once a day. She did increase it to twice a day she is feeling better. As far as blood work her eosinophils are elevated suggesting an allergic exposure. I did recommend she continue the Advair twice a day. The patient does not need any further imaging at this time. Allergy medications she started on Kelli. Seems to be working well. She cannot use Singulair. If the symptoms worsen she will call the office otherwise I will see her in 6 months. 09/03/2023 the patient is here for a pulmonary follow-up visit. Since we last spoke the patient developed a URI. Ultimately developing significant nasal congestion and cough. Subsequently after that she became more congested. She did go to urgent care. She did have a chest x-ray which is without any acute disease. She was took [id number] medications with improvement. Overall she is feeling better. She does have the Advair inhaler although she does not use it all the time. The patient also complains of some scapular discomfort on the right side. Seems to have some pleuritic component. Appears to be more musculoskeletal. She is had significant issues with scoliosis. At this point the patient will try putting a Lidoderm patch that she does have at home. If she is no better she can always have a repeat chest x-ray. In his symptoms worsen and if not clear based on the x-ray we can consider getting another CT scan. Her last CT scan was last year fall 2021 demonstrating stability of the parenchymal changes that she is had which is reassuring. [facility] Medical History Recurrent UTI Ocular migraine Hyperlipidemia History of CVA (cerebrovascular accident) (~2020) Tubular adenoma of colon (~2005) SERG (obstructive sleep apnea) Nasal vestibulitis Degeneration, intervertebral disc, cervical Dry eye PONV (postoperative nausea and vomiting) Arthritis of neck Anxiety Palpitation Cerebral microvascular disease Atherosclerotic cardiovascular disease Precordial chest pain URI (upper respiratory infection) Overactive bladder Microscopic hematuria Urinary urgency Osteoporosis (~1999) Renal cyst Dyspnea Mycobacterial disease GERD (gastroesophageal reflux disease) Cough Pulmonary nodules COPD (chronic obstructive pulmonary disease) Surgical History History of fusion of cervical spine History of sinus surgery History of colonoscopy History of esophagogastroduodenoscopy (EGD) History of bladder suspension procedure Family History Son No problems noted. Social History Household Members: Spouse [facility]: [facility] Do you presently have visiting nurse or other home services: No Alcohol intake: never Patient Tobacco Use Status: Never used Tobacco Years Smoked: parent and smoker e-Cigarette/Vaping Use: Never Used Second Hand Smoke Exposure: Yes Advance Directives Date on File: 08/16/20 service: No Current occupational status: retired Current occupation: right hand Cognitive needs: No Hearing needs: Yes (hearing aides) Vision needs: Yes (Glasses) Review of Systems Const Reports difficulty sleeping and Denies night sweats ENT Denies lip swelling, Denies sinus pain, Denies sinus pressure and Denies tongue swelling Card Denies palpitations and Denies dyspnea Resp Reports cough, Denies pain on inspiration, Denies pain with cough and Denies dyspnea GI Denies abdominal pain Musc Reports as per HPI, Reports back pain and Reports myalgias Neuro Denies Neuro-related abnormal movements and Denies Abnormal speech present Psych Denies no additional complaints Endo Denies palpitations Jose Alejandro/Lymph Denies easy bleeding and Denies lymphadenopathy Aller/Immun Denies lip swelling and Denies tongue swelling Physical Exam Vital Signs: Last Vital Signs Pulse 90 09/03/23 09:14 Pulse Ox 98 09/03/23 09:14 Oxygen Delivery Method Room Air 09/03/23 09:14 BMI result Body Mass Index 20.3 Const General: comfortable Eyes Conjunctivae: conjunctival abnormal bilateral pallor Neck Neck: Yes normal visual inspection, Yes full ROM and Yes no lymphadenopathy Chest Chest palpation & inspection: normal inspection of the chest Resp Effort & Inspection: normal respiratory effort Auscultation: diminished lung sounds Cardio Rate: regular rate Rhythm: regular rhythm Heart sounds: S1 normal heart sound present and S2 normal heart sound present GI Palpation (GI): Soft to palpation and nontender Auscultation: normal bowel sounds Skin General skin exam: rashes and/or lesions noted Neuro Speech: No Abnormal speech present Extrem Right upper extremity: wrist Details: other (cast) Assessment & Plan Assessment & Plan (1) COPD (chronic obstructive pulmonary disease): Code(s): J44.9 - Chronic obstructive pulmonary disease, unspecified Qualifiers: COPD type: chronic bronchitis Chronic bronchitis type: simple Qualified Code(s): J41.0 - Simple chronic bronchitis (2) Cough: Code(s): R05 - Cough Qualifiers: Cough type: chronic Qualified Code(s): R05.3 - Chronic cough (3) Dyspnea: Code(s): R06.00 - Dyspnea, unspecified Qualifiers: Dyspnea type: shortness of breath Qualified Code(s): R06.02 - Shortness of breath (4) Pulmonary nodules: Comment: July 2022Mild chronic changes as detailed above. No significant/suspicious pulmonary nodules. No acute cardiopulmonary process. Following Fleischner Society guidelines, no imaging follow-up is recommended at this time. Routine radiographic follow-up is recommended as clinically indicated. Code(s): R91.8 - Other nonspecific abnormal finding of lung field Plan stop Advair HFA twice a day start symbicort continue LUZ as needed lidoderm patch to affected area CXR if no better continue kelli F/U 6 months Orders: Orders XR chest 2V Today J44.9 - Chronic obstructive pulmonary disease, unspecified Medications: New budesonide-formoterol 80-4.5 mcg/actuation (Symbicort) 2 puffs inhalation Q12H 10.2 grams 10RF 30 days Coding Level of Care Code Est Pt Level 4 (80692) Diagnoses Simple chronic bronchitis J41.0 COPD type: chronic bronchitis Chronic bronchitis type: simple Chronic cough R05.3 Cough type: chronic Shortness of breath R06.02 Dyspnea type: shortness of breath Pulmonary nodules R91.8 Time Spent (min) 17
== END 2023-09-03 09:35 | disposition home or self-care (01) ==
PROVIDERS: PCP Internal Medicine; Visit Provider Hospitalist
DX: J41.0 Simple chronic bronchitis (principal); R06.02 Shortness of breath; R91.8 Other nonspecific abnormal finding of lung field
CPT/HCPCS: 99214

== ENCOUNTER → 2023-09-03 08:59 | Outpatient (BNVA) | payer MEDICARE, OTHER, SELFPAY | PROVIDERS: Visit Provider Hospitalist | DX: J41.0 Simple chronic bronchitis (principal); R06.02 Shortness of breath; R91.8 Other nonspecific abnormal finding of lung field | CPT/HCPCS: 99212 ==

== ENCOUNTER 2023-09-29 10:28 | Outpatient (AMB) | payer MEDICARE, OTHER, SELFPAY ==
[2023-09-29 10:29] VITALS: BP 106/62; PULSE 66; O2SAT 98; BMI 20.5
--- NOTE | 2023-09-29 10:29 | A.OFFPC_ITS ---
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 Allergies naproxen [From NAPROSYN] Allergy (Severe, Verified 09/29/23 10:34) sensitivity niacin [From NIASPAN EXTENDED-RELEASE] Allergy (Severe, Verified 09/29/23 10:34) Rash acetaminophen [From Percocet] Allergy (Mild, Verified 09/29/23 10:34) Itching clarithromycin [From BIAXIN] Allergy (Mild, Verified 09/29/23 10:34) sensitivity codeine [CODEINE] Allergy (Mild, Verified 09/29/23 10:34) Itching esomeprazole [From Nexium] Allergy (Mild, Verified 09/29/23 10:34) Hives fluconazole [From DIFLUCAN] Allergy (Mild, Verified 09/29/23 10:34) sensitivity gatifloxacin [From TEQUIN] Allergy (Mild, Verified 09/29/23 10:34) sensitivity hydrocodone [From Vicodin] Allergy (Mild, Verified 09/29/23 10:34) Rash levofloxacin [From Levaquin] Allergy (Mild, Verified 09/29/23 10:34) sensitivity oxycodone [From Percocet] Allergy (Mild, Verified 09/29/23 10:34) Itching quinidine [QUINIDINE] Allergy (Mild, Verified 09/29/23 10:34) sensitivity Sulfa (Sulfonamide Antibiotics) [SULFA (SULFONAMIDE ANTIBIOTICS)] Allergy (Mild, Verified 09/29/23 10:34) Rash terfenadine [From SELDANE] Allergy (Mild, Verified 09/29/23 10:34) sensitivity tetracycline [TETRACYCLINE] Allergy (Mild, Verified 09/29/23 10:34) sensitivity tramadol [From Ultracet] Allergy (Mild, Verified 09/29/23 10:34) Rash cefaclor [From CECLOR] Adverse Reaction (Severe, Verified 09/29/23 10:34) Unknown cefdinir Adverse Reaction (Intermediate, Verified 09/29/23 10:34) Stomach Upset nitrofurantoin [From Macrobid] Adverse Reaction (Intermediate, Verified 09/29/23 10:34) Stomach Upset montelukast [From Singulair] Adverse Reaction (Mild, Verified 09/29/23 10:34) Headache topiramate [From TOPAMAX] Adverse Reaction (Mild, Verified 09/29/23 10:34) Stomach Upset Tobacco use date assessed: 09/29/23 Fall risk assessment: No Falls in past year Last assessed Fall Risk: 09/29/23 HPI CVA HPI Details [age] year old female with a history of cervical degenerative disc disease osteoporosis GERD obstructive sleep apnea COPD history of CVA hypercholesterolemia generalized anxiety disorder coming in for follow-up. Last seen for bronchitis in August 2023. But patient continued to cough and was sent to pulmonary patient was advised to stop Advair and placed on Symbicort. 2 weeks ago in the shower hit hear on the R sidee to the grab bar - seen neuro and was advised muscle complains of eye pain after now- did feel before for migraine. PAtient has R wirst and Shoulder pain from a history of fall and asking help at home for cleaning help at home [facility] Medical History (Updated 09/29/23 @ 11:16 by Abby Potter MD) Breast cancer screening by mammogram Acute bronchitis Recurrent UTI Ocular migraine Hyperlipidemia History of CVA (cerebrovascular accident) (~2020) Tubular adenoma of colon (~2005) SERG (obstructive sleep apnea) Nasal vestibulitis Degeneration, intervertebral disc, cervical Dry eye PONV (postoperative nausea and vomiting) Arthritis of neck Anxiety Palpitation Cerebral microvascular disease Atherosclerotic cardiovascular disease Precordial chest pain URI (upper respiratory infection) Overactive bladder Microscopic hematuria Urinary urgency Osteoporosis (~1999) Renal cyst Dyspnea Mycobacterial disease GERD (gastroesophageal reflux disease) Cough Pulmonary nodules COPD (chronic obstructive pulmonary disease) Surgical History History of fusion of cervical spine History of sinus surgery History of colonoscopy History of esophagogastroduodenoscopy (EGD) History of bladder suspension procedure Family History Son No problems noted. Household Members: Spouse Housing: Condominium Do you presently have visiting nurse or other home services: No Alcohol intake: never Patient Tobacco Use Status: Never used Tobacco Years Smoked: parent and smoker e-Cigarette/Vaping Use: Never Used Second Hand Smoke Exposure: Yes Advance Directives Date on File: 08/16/20 service: No Current occupational status: retired Current occupation: right hand Cognitive needs: No Hearing needs: Yes (hearing aides) Vision needs: Yes (Glasses) Questionnaire Thrive Questionnaire Date Thrive assessed: 07/17/23 AUDIT C Alcohol Use Questionnaire (AUDIT-C) 1. How often do you have a drink containing alcohol?: Never 3. How often do you have six or more drinks on one occasion?: Never Total Score: 0 SAVANNAH-7 AMB Questionnaire SAVANNAH-7 Date SAVANNAH - 7 assessed: 07/17/23 Source: Developed by Drs. Augie Espinoza, Yue Griffin, Michael Gallo and colleagues, with an educational aniya from [employer] Physical exam (Primary Care) Vital Signs: Last Vital Signs Pulse 66 09/29/23 10:29 BP 106/62 09/29/23 10:29 Pulse Ox 98 09/29/23 10:29 Oxygen Delivery Method Room Air 09/29/23 10:29 BMI result Body Mass Index 20.5 Tobacco/Smoking Status: Tobacco use Status Tobacco use date assessed 09/29/23 09/29/23 10:31 Patient Tobacco Use Status Never used Tobacco 09/29/23 10:31 e-Cigarette/Vaping Use Never Used 09/29/23 10:31 Thrive Assessment: Date of Thrive Assessment Date Thrive assessed 07/17/23 09/29/23 10:31 Const General: alert; No acute distress Eyes Conjunctivae: conjunctivae normal Resp Auscultation: clear to auscultation bilaterally Cardio Rate: regular rate Rhythm: regular rhythm GI Inspection: Yes normal to inspection Extrem General: Yes normal to inspection and No edema Assessment and Plan Assessment & Plan (1) Osteoporosis: Onset Date: ~1999 Comment: Diagnosed prior to 2018 DEXA 04/2019 osteoporosis T score-2.9 left hip, L-spine T-score -2.8 Received Reclast: 12/23/2018, 01/21/2020, 01/20/2021. DEXA 09/22/2021 with T-score of-3.2 left femoral neck Prolia 01/20/2022- present after dental clearance Wrist fracture 01/23 Code(s): M81.0 - Age-related osteoporosis without current pathological fracture Qualifiers: Osteoporosis type: age-related Presence of current pathological f racture: without current pathological fracture Qualified Code(s): M81.0 - Age- related osteoporosis without current pathological fracture Plan: Patient had September 2021 last bone density and is due (2) GERD (gastroesophageal reflux disease): Code(s): K21.9 - Gastro-esophageal reflux disease without esophagitis Qualifiers: Esophagitis presence: with esophagitis Esophagitis bleeding: without hemorrhage Qualified Code(s): K21.00 - Gastro-esophageal reflux disease with esophagitis, without bleeding Plan: Avoid the foods that causes that usually spicy foods, tomato products, juices, coffee, soda and foods that your sensitive to. After eating do not lie down, allow 3-4 hours before in lie down. And keep the head of bed above 30 degrees to avoid the acid from going up. (3) COPD (chronic obstructive pulmonary disease): Code(s): J44.9 - Chronic obstructive pulmonary disease, unspecified Qualifiers: COPD type: chronic bronchitis Chronic bronchitis type: simple Qualified Code(s): J41.0 - Simple chronic bronchitis Plan: Patient follows up with Pulmonary and has been placed on Symbicort (4) History of CVA (cerebrovascular accident): Onset Date: ~2020 Comment: (right cerebellar hemisphere infarct - tx tPA 08/03/2021) Code(s): Z86.73 - Personal history of transient ischemic attack (TIA), and cerebral infarction without residual deficits Plan: Control the cholesterol, weight, blood pressure (5) Hyperlipidemia: Code(s): E78.5 - Hyperlipidemia, unspecified Plan: Avoid fried foods, chicken skin, eggs, butter margarine, pastries and meat. Be it pork or beef they have a lot of cholesterol patient is on atorvastatin 40 mg once a day (6) Generalized anxiety disorder: Code(s): F41.1 - Generalized anxiety disorder Plan: Continue with Lexapro (7) Patent foramen ovale: Code(s): Q21.1 - Atrial septal defect Plan: Patient presently on anticoagulation (8) Heart trauma: Code(s): S26.90XA - Unspecified injury of heart, unspecified with or without hemopericardium, initial encounter (9) Headache, post-traumatic, acute: Code(s): G44.319 - Acute post-traumatic headache, not intractable Orders: Orders XR DEXA axial skeleton Today M81.0 - Age-related osteoporosis without current pathological fracture Lipid Panel 3 Months D64.9 - Anemia, unspecified, E78.00 - Pure hypercholesterolemia, unspecified IRON PROFILE 3 Months D64.9 - Anemia, unspecified Reticulocyte Count 3 Months D64.9 - Anemia, unspecified Thyroid Stimulating Hormone 3 Months D64.9 - Anemia, unspecified CT head/brain wo IV con Today G44.319 - Acute post-traumatic headache, not intractable Complete Blood Count Auto Diff 3 Months D64.9 - Anemia, unspecified Ferritin 3 Months D64.9 - Anemia, unspecified Free T4 (Free Thyroxine) 3 Months D64.9 - Anemia, unspecified Vitamin B12 and Folate 3 Months D64.9 - Anemia, unspecified Vitamin D 25-OH Total 3 Months D64.9 - Anemia, unspecified Comprehensive Met. Panel 3 Months D64.9 - Anemia, unspecified Coding Level of Care Code Est Pt Level 4 (24765) Diagnoses Age-related osteoporosis without current pathological fracture M81.0 Osteoporosis type: age-related Presence of current pathological fracture: without current pathological fracture Gastroesophageal reflux disease with esophagitis without hemorrhage K21.00 Esophagitis presence: with esophagitis Esophagitis bleeding: without hemorrhage Simple chronic bronchitis J41.0 COPD type: chronic bronchitis Chronic bronchitis type: simple History of CVA (cerebrovascular accident) Z86.73 Hyperlipidemia E78.5 Generalized anxiety disorder F41.1 Patent foramen ovale Q21.1 Heart trauma S26.90XA Headache, post-traumatic, acute G44.319
== END 2023-09-29 11:25 | disposition home or self-care (01) ==
PROVIDERS: Visit Provider Internal Medicine
DX: M81.0 Age-related osteoporosis without current pathological fracture (principal); K21.00 Gastro-esophageal reflux disease with esophagitis, without bleeding; J41.0 Simple chronic bronchitis; Z86.73 Personal history of transient ischemic attack (TIA), and cerebral infarction without residual deficits; E78.5 Hyperlipidemia, unspecified; F41.1 Generalized anxiety disorder; Q21.10 Atrial septal defect, unspecified; S26.90XA Unspecified injury of heart, unspecified with or without hemopericardium, initial encounter; G44.319 Acute post-traumatic headache, not intractable
CPT/HCPCS: 99214

== ENCOUNTER 2023-10-02 10:46 | Outpatient (REF) | payer MEDICARE, OTHER, SELFPAY ==
[2023-10-02 10:52] LABS: Appearance Urine Cloudy; Glucose Urine UA Negative (Negative); Leukocyte Esterase Urine Moderate (2+) (Negative); Nitrite Urine Positive (Negative); PH 6.5 (5.0-9.0); Specific Gravity - Urine >= 1.030 (1.005-1.025); UMIC TRIGGER UACC YES; Urine Blood Large (3+) (Negative); Urine Ketones Trace mg/dL (Negative); Urine Protein 300 (3+) mg/dL (Neg-Trace)
[2023-10-02 10:56] LABS: Color Urine Other
[2023-10-02 11:06] LABS: Bacteria Urine 2+ (None Seen); Hyaline Casts Urine 0-2 /LPF (0-2); RBC Urine >20 /HPF (0-2); Squamous Epithelial Cell Urine 0-2 /HPF (0-2); UACC Culture Trigger YES; WBC Urine >50 /HPF (0-5)
== END 2023-10-02 10:47 | disposition home or self-care (01) ==
LOC: HO.LNP 10:46
PROVIDERS: Visit Provider Internal Medicine
DX: R39.9 Unspecified symptoms and signs involving the genitourinary system (principal)
CPT/HCPCS: 81001; 87086

== ENCOUNTER 2023-10-03 09:20 | Outpatient (REF) | payer MEDICARE, OTHER, SELFPAY ==
--- NOTE | ~2023-10-03 | XR_ITS ---
EXAMINATION: XR CHEST CLINICAL INFORMATION: Acute bronchitis COMPARISON: 08/22/2020 TECHNIQUE: 2 views of the chest were obtained. FINDINGS: Lungs are well-expanded without infiltrates nodules or pleural effusion. Cardiomediastinal silhouette is normal. There is dextroscoliosis of thoracic spine. XR/XR chest 2V IMPRESSION: No active cardiopulmonary disease
--- NOTE | ~2023-10-03 | CT_ITS ---
EXAMINATION: CT HEAD WITHOUT CONTRAST CLINICAL INFORMATION: Acute posttraumatic headache COMPARISON: CT brain 08/04/2021 TECHNIQUE: Contiguous axial imaging was performed from the skull base to vertex without intravenous administration of contrast. This CT examination was performed using dose optimization techniques as appropriate, variously including the following: *Automated exposure control *Adjustment of mA and/or kV according to patient size (this includes techniques or standardized protocols for targeted exams where dose is matched to indication/reason for exam; i.e. extremities or head) *Use of iterative reconstruction technique DLP: 695 mGy-cm FINDINGS: There is no acute intra-axial, extra-axial bleed, masses or midline shift. There is no acute infarction evolution. There is no edema. The lateral ventricles are symmetrical in size and configuration but mildly enlarged. There is mild periventricular hypodensity in both cerebral hemispheres without mass effect. No abnormality seen in the posterior fossa. Bone windows reveal no calvarial abnormality. There is no scalp soft tissue abnormality. There is diffuse mucoperiosteal thickening bilateral frontal and anterior ethmoid sinuses. The mastoid air cells are well-aerated. There is a new finding of seizure right TM joint arthritic changes are noted. CT/CT head/brain wo IV con IMPRESSION: 1. No acute intracranial process seen. 2. Chronic bilateral frontal and anterior ethmoid sinus inflammatory changes.
== END 2023-10-03 09:21 | disposition home or self-care (01) ==
LOC: HO.CT 09:20
PROVIDERS: Visit Provider Internal Medicine
DX: J20.9 Acute bronchitis, unspecified (principal); G44.319 Acute post-traumatic headache, not intractable
CPT/HCPCS: 70450; 71046

== ENCOUNTER 2023-10-13 08:43 | Outpatient (REF) | payer MEDICARE, OTHER, SELFPAY ==
--- NOTE | ~2023-10-13 | CT_ITS ---
CT SINUS WITHOUT CONTRAST HISTORY: Sinonasal polyposis, sinusitis TECHNIQUE: CT images of the paranasal sinuses were acquired without contrast. This CT examination was performed using dose optimization techniques as appropriate, variously including the following: *Automated exposure control *Adjustment of mA and/or kV according to patient size (this includes techniques or standardized protocols for targeted exams where dose is matched to indication/reason for exam; i.e. extremities or head) *Use of iterative reconstruction technique DLP: 85.29 mGy-cm COMPARISON: CT head 10/03/2023, CT sinus 07/09/2022 FINDINGS: NASAL CAVITY: The nasal septum is midline. Medialization versus resection of the middle turbinates. The cribriform plate appears thinned. The lateral lamellae and fovea ethmoidalis are relatively symmetric. There is opacification in the olfactory fossa. Findings appear comparable to the prior examination. FRONTAL SINUS: Right: Moderate mucosal thickening with occlusion of the outflow tract. Left: Moderate mucosal thickening with occlusion of the outflow tract. ETHMOID AIR CELLS: Right: Prior ethmoidectomy with opacification of residual anterior ethmoid air cells. Left: Prior ethmoidectomy with opacification of residual anterior ethmoid air cells. SPHENOID SINUS: Right: Essentially clear. Prior sphenoidotomy. Left: Essentially clear. Prior sphenoidotomy. MAXILLARY SINUS: Right: Prior antrostomy. There is polypoid soft tissue near the antrostomy defect which remains patent. Left: Prior antrostomy. Mild polypoid mucosal thickening. The outflow tract remains patent. OTHER: Intracranial atherosclerotic calcification. Otherwise, intracranial structures are unremarkable on these low mAs images. The mastoid air cells and middle ear clefts are clear. Impacted right maxillary molar. Otherwise absent maxillary dentition.. Advanced degenerative changes of the right temporomandibular joint. CT/CT sinus wo IV con IMPRESSION: Prior endoscopic sinus surgery with stable scattered paranasal sinus opacification as described above.
== END 2023-10-13 08:44 | disposition home or self-care (01) ==
LOC: HO.CT 08:43
PROVIDERS: PCP Internal Medicine; Visit Provider Otolaryngology
DX: J32.9 Chronic sinusitis, unspecified (principal); J33.8 Other polyp of sinus
CPT/HCPCS: 70486

== ENCOUNTER 2023-10-17 12:48 | Outpatient (REF) | payer MEDICARE, OTHER, SELFPAY ==
[2023-10-17 14:48] LABS: Appearance Urine Clear; Color Urine Yellow; Glucose Urine UA Negative (Negative); Leukocyte Esterase Urine Large (3+) (Negative); Nitrite Urine Negative (Negative); Specific Gravity - Urine <= 1.005 (1.005-1.025); UMIC TRIGGER UACC YES; Urine Blood Small (1+) (Negative); Urine Ketones Negative (Negative); Urine Protein Negative (Neg-Trace)
[2023-10-17 15:01] LABS: Bacteria Urine None Seen (None Seen); Hyaline Casts Urine 0-2 /LPF (0-2); RBC Urine 0-2 /HPF (0-2); Squamous Epithelial Cell Urine 0-2 /HPF (0-2); UACC Culture Trigger YES; WBC Urine >50 /HPF (0-5)
== END 2023-10-17 12:49 | disposition home or self-care (01) ==
LOC: HO.LAB 12:48
PROVIDERS: PCP Internal Medicine; Visit Provider Internal Medicine
DX: R30.0 Dysuria (principal)
CPT/HCPCS: 81001; 87086; 87088; 87186

== ENCOUNTER 2023-10-31 08:06 | Outpatient (REF) | payer MEDICARE, OTHER, SELFPAY ==
--- NOTE | ~2023-10-31 | MM_ITS ---
EXAMINATION: BONE DENSITOMETRY CLINICAL INDICATION: Osteoporosis. COMPARISON: Previous BD dated 09/20/2021 and baseline BD dated 09/12/2004. TECHNIQUE: Using a [employer] DXA System (software version: 13.1) manufactured by [employer], dual-energy x-ray absorptiometry was performed of the lumbar spine and left hip. The images are of good technical quality. Summary results are attached. FINDINGS: LEFT FEMUR, NECK: Current: BMD 0.408 g/cm2, Z-score -2.2, T-score -4.5, osteoporosis. Prior: BMD 0.599 g/cm2. Baseline 09/04/2006: BMD 0.572 g/cm2. LEFT FEMUR, TOTAL: Current: BMD 0.516 g/cm2, Z-score -1.7, T-score -3.9, osteoporosis, 23.2% decrease from previous, 23.8% decrease from baseline (<5% change is not significant). Prior: BMD 0.672 g/cm2. Baseline 09/04/2006: BMD 0.677 g/cm2. AP SPINE L1-L4: Current: BMD 1.066 g/cm2, Z-score 1.5, T-score -0.9, normal, 1.0% decrease from previous, 8.3% increase from baseline (<5% change is not significant). Prior: BMD 1.077 g/cm2. Baseline: BMD 0.984 g/cm2. IDENTIFIED RISK FACTORS: Early menopause, history of fracture (adult), low body weight, osteoporosis, recurrent falls, secondary osteoporosis. HISTORY OF FRACTURE: Shoulder, wrist. MEDICATIONS: Calcium, vitamin D, Prolia. MM/XR DEXA axial skeleton IMPRESSION: 1. DIAGNOSIS: Severe osteoporosis based on the lowest T-score value of -4.5 in the femur neck and history of fracture of wrist and shoulder applying World Health Organization criteria. 2. 10-YEAR FRACTURE RISK PREDICTION, FRAX: According to the guidelines, FRAX calculation should only be performed on patients in the osteopenia bone density category. Therefore, FRAX was not performed on this patient. 3. Treatment Recommendations: NOF guidelines recommend consideration for treatment in postmenopausal women and men age 50 and older presenting with the following: -A hip or vertebral (clinical or morphometric) fracture. -T-score less than or equal to -2.5 at the femoral neck or spine after appropriate evaluation to exclude secondary causes. -Low bone mass at the hip or spine and a 10-year fracture probability by FRAX of greater than or equal to 3% for hip fracture or greater than or equal to 20% for major osteoporotic fracture based on the [place] adapted WHO algorithm. 4. Other Recommendations: All treatment decisions require clinical judgment and consideration of individual patient factors, including patient preferences, comorbidities, previous drug use, risk factors not captured in the FRAX model (e.g. frailty, falls, vitamin D deficiency, increased bone turnover, interval significant decline in bone density) and possible under or overestimation of fracture risk by FRAX. Additional medical evaluation for secondary cause of low bone mineral density may be appropriate. FUTURE SCAN RECOMMENDATION: People with diagnosed cases of osteoporosis or at high risk for fracture should have regular bone mineral density tests. For patients eligible for Medicare, routine testing is allowed once every 2 years. The testing frequency can be increased to one year for patients who have rapidly progressing disease, those who are receiving or discontinuing medical therapy to restore bone mass, or have additional risk factors.
== END 2023-10-31 08:07 | disposition home or self-care (01) ==
LOC: HO.MAMMO 08:06
PROVIDERS: PCP Internal Medicine; Visit Provider Internal Medicine
DX: Z13.820 Encounter for screening for osteoporosis (principal); Z78.0 Asymptomatic menopausal state; M81.0 Age-related osteoporosis without current pathological fracture
CPT/HCPCS: 77080

== ENCOUNTER 2023-11-28 09:06 | Outpatient (REF) | payer MEDICARE, OTHER, SELFPAY | END 2023-11-28 09:07 | disposition home or self-care (01) | LOC: HO.MAMMO 09:06 | PROVIDERS: PCP Internal Medicine; Visit Provider Internal Medicine | DX: Z12.31 Encounter for screening mammogram for malignant neoplasm of breast (principal) | CPT/HCPCS: 77063; 77067 ==

== ENCOUNTER → 2023-11-28 09:30 | Outpatient (BNV) | payer MEDICARE, OTHER, SELFPAY | PROVIDERS: PCP Internal Medicine; Visit Provider Radiology Diagnostic Radiology | DX: Z12.31 Encounter for screening mammogram for malignant neoplasm of breast (principal) | CPT/HCPCS: 77063; 77067 ==

== ENCOUNTER 2023-12-10 11:00 | Outpatient (AMB) | payer MEDICARE, OTHER, SELFPAY ==
[2023-12-10 11:00] VITALS: BP 136/80; PULSE 72; O2SAT 100; BMI 19.9
--- NOTE | 2023-12-10 11:00 | MHC.PC.OV ---
Vital Signs 12/10/23 11:00 Height 5 ft Weight 102 lb 0.6 oz BMI 19.9 BP 136/80 Blood Pressure Location Lt brachial Position Sitting Pulse 72 Pulse Source Pulse Oximeter Pulse Oximetry (%) 100 Oxygen Delivery Method Room Air Intake Visit Reasons: tia? patient thinks she had a mini stroke Remote Sensing Technician Required: No Allergies naproxen [From NAPROSYN] Allergy (Severe, Verified 12/10/23 11:01) sensitivity niacin [From NIASPAN EXTENDED-RELEASE] Allergy (Severe, Verified 12/10/23 11:01) Rash acetaminophen [From Percocet] Allergy (Mild, Verified 12/10/23 11:01) Itching clarithromycin [From BIAXIN] Allergy (Mild, Verified 12/10/23 11:01) sensitivity codeine [CODEINE] Allergy (Mild, Verified 12/10/23 11:01) Itching esomeprazole [From Nexium] Allergy (Mild, Verified 12/10/23 11:01) Hives fluconazole [From DIFLUCAN] Allergy (Mild, Verified 12/10/23 11:01) sensitivity gatifloxacin [From TEQUIN] Allergy (Mild, Verified 12/10/23 11:01) sensitivity hydrocodone [From Vicodin] Allergy (Mild, Verified 12/10/23 11:01) Rash levofloxacin [From Levaquin] Allergy (Mild, Verified 12/10/23 11:01) sensitivity oxycodone [From Percocet] Allergy (Mild, Verified 12/10/23 11:01) Itching quinidine [QUINIDINE] Allergy (Mild, Verified 12/10/23 11:01) sensitivity Sulfa (Sulfonamide Antibiotics) [SULFA (SULFONAMIDE ANTIBIOTICS)] Allergy (Mild, Verified 12/10/23 11:01) Rash terfenadine [From SELDANE] Allergy (Mild, Verified 12/10/23 11:01) sensitivity tetracycline [TETRACYCLINE] Allergy (Mild, Verified 12/10/23 11:01) sensitivity tramadol [From Ultracet] Allergy (Mild, Verified 12/10/23 11:01) Rash cefaclor [From CECLOR] Adverse Reaction (Severe, Verified 12/10/23 11:01) Unknown cefdinir Adverse Reaction (Intermediate, Verified 12/10/23 11:01) Stomach Upset nitrofurantoin [From Macrobid] Adverse Reaction (Intermediate, Verified 12/10/23 11:01) Stomach Upset montelukast [From Singulair] Adverse Reaction (Mild, Verified 12/10/23 11:01) Headache topiramate [From TOPAMAX] Adverse Reaction (Mild, Verified 12/10/23 11:01) Stomach Upset Tobacco use date assessed: 12/10/23 Fall risk assessment: 1 Fall in past year (pt states slipped K5rscoe ago ) Last assessed Fall Risk: 12/10/23 Dental Screening Dental Screen Date: 12/10/23 HPI tia? patient thinks she had a mini stroke HPI Details 78-year-old female with multiple medical problems GERD COPD history of CVA hypercholesterolemia generalized anxiety disorder last seen in September 2023. Relates to us that she had an episode where she was not responding but awake- states could not hear and lasted 2 minutes, deny syncope. complains of L eye dry. also has dsyuria again- . does have vaginal cream. [facility] Medical History (Updated 12/10/23 @ 11:22 by Abby Potter MD) Breast cancer screening by mammogram Acute bronchitis Recurrent UTI Ocular migraine Hyperlipidemia History of CVA (cerebrovascular accident) (~2020) Tubular adenoma of colon (~2005) SERG (obstructive sleep apnea) Nasal vestibulitis Degeneration, intervertebral disc, cervical Dry eye PONV (postoperative nausea and vomiting) Arthritis of neck Anxiety Palpitation Cerebral microvascular disease Atherosclerotic cardiovascular disease Precordial chest pain URI (upper respiratory infection) Overactive bladder Microscopic hematuria Urinary urgency Osteoporosis (~1999) Renal cyst Dyspnea Mycobacterial disease GERD (gastroesophageal reflux disease) Cough Pulmonary nodules COPD (chronic obstructive pulmonary disease) Surgical History History of fusion of cervical spine History of sinus surgery History of colonoscopy History of esophagogastroduodenoscopy (EGD) History of bladder suspension procedure Family History Son No problems noted. Social History Household Members: Spouse Housing: Condominium Do you presently have visiting nurse or other home services: No Alcohol intake: never Patient Tobacco Use Status: Never used Tobacco Years Smoked: parent and smoker e-Cigarette/Vaping Use: Never Used Second Hand Smoke Exposure: Yes Advance Directives Date on File: 08/16/20 service: No Current occupational status: retired Current occupation: right hand Cognitive needs: No Hearing needs: Yes (hearing aides) Vision needs: Yes (Glasses) Questionnaire Thrive Questionnaire Date Thrive assessed: 07/17/23 AUDIT C Alcohol Use Questionnaire (AUDIT-C) 1. How often do you have a drink containing alcohol?: Never 3. How often do you have six or more drinks on one occasion?: Never Total Score: 0 SAVANNAH-7 AMB Questionnaire SAVANNAH-7 Date SAVANNAH - 7 assessed: 07/17/23 Source: Developed by Drs. Augie Espinoza, Yue Griffin, Michael Gallo and colleagues, with an educational aniya from [employer]. Physical exam (Primary Care) Vital Signs: Last Vital Signs Pulse 72 12/10/23 11:00 BP 136/80 12/10/23 11:00 Pulse Ox 100 12/10/23 11:00 Oxygen Delivery Method Room Air 12/10/23 11:00 BMI result Body Mass Index 19.9 Tobacco/Smoking Status: Tobacco use Status Tobacco use date assessed 12/10/23 12/10/23 11:05 Patient Tobacco Use Status Never used Tobacco 12/10/23 11:05 e-Cigarette/Vaping Use Never Used 12/10/23 11:05 Thrive Assessment: Date of Thrive Assessment Date Thrive assessed 07/17/23 12/10/23 11:05 Const General: alert; No acute distress Eyes Conjunctivae: conjunctivae normal Resp Auscultation: clear to auscultation bilaterally Cardio Rate: regular rate Rhythm: regular rhythm GI Inspection: Yes normal to inspection Extrem General: Yes normal to inspection and No edema Results AMB Urinalysis, Automated UA Leukoctes 500 Marisabel/uL Last Edit by JULITA Johnson on 12/10/23 11:14 UA Nitrite Negative Last Edit by JULITA Johnson on 12/10/23 11:14 UA Urobilinogen 0.2 mg/dL Last Edit by JULITA Johnson on 12/10/23 11:14 UA Protein 0 mg/dL Last Edit by JULITA Johnson on 12/10/23 11:14 UA pH 6.0 Last Edit by NgoziJULITA Manuel on 12/10/23 11:14 UA Blood 25 Dl/uL Last Edit by Ngozi Tomasahmet ANABELRohan on 12/10/23 11:14 UA Specific [place] 1.005 Last Edit by Ngozi Tomasahmet JULITA on 12/10/23 11:14 UA Ketone Negative Last Edit by Ngozi Tomasahmet ANABELRohan on 12/10/23 11:14 UA Bilirubin 0 mg/dL Last Edit by NgoziJULITA Manuel on 12/10/23 11:14 UA Glucose 0 mg/dL Last Edit by Ngozi Tomasahmet ANABELRohan on 12/10/23 11:14 Results Reviewed Results Reviewed: Laboratory Last Values Urine pH (Auto) 6.0 12/10/23 11:12 Specific [place] (Auto) 1.005 12/10/23 11:12 Urine Protein (Auto) 0 mg/dL 12/10/23 11:12 Glucose (UA)(Auto) 0 mg/dL 12/10/23 11:12 Urine Ketones (Auto) Negative 12/10/23 11:12 Urine Blood (Auto) 25 Dl/uL 12/10/23 11:12 Urine Nitrite (Auto) Negative 12/10/23 11:12 Urine Bilirubin (Auto) 0 mg/dL 12/10/23 11:12 Urine Urobilinogen (Auto) 0.2 mg/dL 12/10/23 11:12 Leukocyte Esterase (Auto) 500 Marisabel/uL 12/10/23 11:12 Assessment and Plan Assessment & Plan (1) Recurrent UTI: Code(s): N39.0 - Urinary tract infection, site not specified Plan: treatment done (2) History of CVA (cerebrovascular accident): Onset Date: ~2020 Comment: (right cerebellar hemisphere infarct - tx tPA 08/03/2021) Code(s): Z86.73 - Personal history of transient ischemic attack (TIA), and cerebral infarction without residual deficits Plan: on anticoagulation US carotids requested (3) Patent foramen ovale: Code(s): Q21.1 - Atrial septal defect Plan: will ff up with ECHO (4) Hyperlipidemia: Code(s): E78.5 - Hyperlipidemia, unspecified Plan: 08/2023 LDL66 (5) Fall: Comment: january 15, 2023 Code(s): W19.XXXA - Unspecified fall, initial encounter Plan: slipped on ice. Orders: Orders ECG 3 day holter monitor Today R00.2 - Palpitations UA CC w/rflx Micro + Cult 2 Weeks N39.0 - Urinary tract infection, site not specified, R30.0 - Dysuria AMB Urinalysis Automated Today R30.0 - Dysuria US carotid duplex BI Today Z86.73 - Personal history of transient ischemic attack (TIA), and cerebral infarction without residual deficits CA echo transthoracic complete Today Z86.73 - Personal history of transient ischemic attack (TIA), and cerebral infarction without residual deficits Medications: Refilled Cipro (ciprofloxacin HCl) 500 mg PO BID 5 days 10 tabs 0RF NS Z86.73 - Personal history of transient ischemic attack (TIA), and cerebral infarction without residual deficits Coding Level of Care Code Est Pt Level 4 (99928) Diagnoses Recurrent UTI N39.0 History of CVA (cerebrovascular accident) Z86.73 Patent foramen ovale Q21.1 Hyperlipidemia E78.5 Fall W19.XXXA
== END 2023-12-10 11:36 | disposition home or self-care (01) ==
PROVIDERS: PCP Internal Medicine; Visit Provider Internal Medicine
DX: N39.0 Urinary tract infection, site not specified (principal); R30.0 Dysuria; Q21.10 Atrial septal defect, unspecified; E78.5 Hyperlipidemia, unspecified; Z86.73 Personal history of transient ischemic attack (TIA), and cerebral infarction without residual deficits; W19.XXXA Unspecified fall, initial encounter
CPT/HCPCS: 81003; 99214

== ENCOUNTER 2023-12-16 09:37 | Outpatient (REF) | payer MEDICARE, OTHER, SELFPAY ==
--- NOTE | ~2023-12-16 | US_ITS ---
EXAMINATION: US EXTRACRANIAL CAROTID DUPLEX, BILATERAL CLINICAL INFORMATION: History of TIA COMPARISON: CTA head and neck 08/03/2021 TECHNIQUE: Real-time ultrasound and Doppler techniques (integrating B-mode 2-D vascular images, Doppler spectral analysis and color-flow Doppler imaging) were utilized to interrogate the extracranial carotid arteries, the vertebral arteries and proximal subclavian arteries bilaterally. The degree of stenosis is determined by criteria similar to NASCET. FINDINGS: Right Side: 1. There is mild atherosclerotic plaque seen in the bifurcation/proximal ICA region. 2. The common carotid artery PSV proximally is 87.4 cm/s and distally 72.7 cm/s. 3. The proximal internal carotid artery velocities are 76.6 cm/s systolic and 18.5 cm/s diastolic. 4. The proximal external carotid artery PSV is 57.8 cm/s. 5. The vertebral artery shows antegrade flow. 6. The subclavian artery waveforms are normal. Left Side: 1. There is mild atherosclerotic plaque seen in the bifurcation/proximal ICA region. 2. The common carotid artery PSV proximally is 100 cm/s and distally 78.6 cm/s. 3. The proximal internal carotid artery velocities are 72.1 cm/s systolic and 18.2 cm/s diastolic. 4. The proximal external carotid artery PSV is 81.5 cm/s. 5. The vertebral artery shows antegrade flow. 6. The subclavian artery waveforms are normal. US/US carotid duplex BI IMPRESSION: 1. RIGHT: Minimal, non-hemodynamically significant stenosis of the proximal right internal carotid artery corresponding to a 0-49% stenosis by velocity criteria. 2. LEFT: Minimal, non-hemodynamically significant stenosis of the proximal left internal carotid artery corresponding to a 0-49% stenosis by velocity criteria.
== END 2023-12-16 09:38 | disposition home or self-care (01) ==
LOC: HO.US 09:37
PROVIDERS: PCP Internal Medicine; Visit Provider Internal Medicine
DX: Z86.73 Personal history of transient ischemic attack (TIA), and cerebral infarction without residual deficits (principal); I65.23 Occlusion and stenosis of bilateral carotid arteries
CPT/HCPCS: 93880

== ENCOUNTER → 2023-12-24 13:50 | Outpatient (REF) | payer MEDICARE, OTHER, SELFPAY ==
--- NOTE | 2023-12-24 13:53 | CA_ITS ---
Transthoracic Echocardiogram Patient (Last, First, Middle): Adelina Tavarez A Gender: Female Date of : 1945 Age: 78 Procedure Date: 12/24/2023 Procedure Type: Transthoracic Echocardiogram Location: OP Height: 152.4 cm Weight: 45.36 kg BSA: 1.39 m2 Heart Rate: bpm BP: 110 / 60 mmHg Photography Instructor: TO Referring MD: Abby Potter MD Director Of Radiology: Jose Cornejo MD Symptoms: Z86.73 - Personal history of transient ischemic attack (TIA), and cerebr... Study Quality: Fair ECG Rhythm: Sinus Conclusions: - 1. Normal LV systolic function with LVEF of 55-60% with impaired relaxation filling pattern 2. Mild mitral regurgitation 3. Normal RV systolic pressure 4. No pericardial effusion Findings Left Ventricle Normal left ventricular size, thickness, and systolic function. The visually estimated ejection fraction is between 55-60%. Spectral Doppler is indicative of an impaired relaxation filling pattern. E/E prime ratio is between 8 and 15 consistent with indeterminate filling pressures. Peak GLS is -19.0%, which is within normal limits. Right Ventricle Normal right ventricular cavity size and systolic function. Atria Both atria are normal in size. There is no evidence of interatrial shunt. Aortic Valve There is mild calcification of the aortic valve. There is no aortic valve stenosis. There is no aortic valve regurgitation. Mitral Valve There is mild anterior and posterior mitral leaflet thickening. There is mild mitral annular calcification. There is mild mitral valve regurgitation. There is no mitral valve stenosis. Pulmonic Valve The pulmonic valve is likely normal. Tricuspid Valve Normal tricuspid valve structure. There is trace tricuspid valve regurgitation. The right ventricular systolic pressure is normal. The right ventricular systolic pressure is 23 mmHg. Normal right atrial pressure. There is no evidence of pulmonary hypertension. Great Vessels All visible segments of the aorta are normal in size. The pulmonary artery was not well visualized. There is no dilatation of the ascending aorta measuring 2.90 cm. Small plaque is seen in the sino tubular ridge. Venous The inferior vena cava is normal in size and collapses greater than 50% with inspiration. Pericardium/Pleural There is no evidence of pericardial effusion. Measurements 2D Linear Measurements IVSd: 1.03 0.6-0.9/0.6-1.0 cm LVIDd: 4.27 3.9-5.3/4.2-5.9 cm LVIDd Index: 3.07 2.4-3.2/2.2-3.1 cm/m2 LVIDs: 2.64 2.0-3.6 cm LVPWd: 0.81 0.7-1.1 cm LA Diam: 3.20 2.7-3.8/3.0-4.0 cm LAIDs Index: 2.30 1.5-2.3 cm/m2 LV Mass: 155.67 67-162/88-224 g LV Mass Index: 111.99 43-95/49-115 g/m2 LVOT Diam: 1.90 3.0+(-)1.3 cm 2D Systolic Function EF 4C: 56.40 >55% EF 2C: 56.30 >55% EF BiP: 56.50 >55% Mitral Valve MV Pk E: 0.46 MV PK A: 0.66 MV Decel Time: 246.00 E/A: 0.70 E'Lateral: 9.25 E'Medial: 5.98 E/E' Med: 7.70 E/E' Lat: 5.00 PHT: 72.00 MVA PHT: 3.06 Decel Jewell: 1.86 Aortic Valve AoV Pk Barry: 1.38 AoV Mn Barry: 0.99 AoV VTI: 0.32 AoV Pk Grad: 8.00 Aov Mn Grad: 4.00 RAHEEM Cont.VTI: 1.41 LVOT LVOT Pk Barry: 0.78 LVOT Mn Barry: 0.46 LVOT VTI: 0.16 LVOT Pk Grad: 2.00 LVOT Mn Grad: 1.00 LVOT Diam: 1.90 LVOT Area: 2.84 Diastolic Function MV Pk E: 0.46 MV Pk A: 0.66 E/A: 0.70 E'Medial: 5.98 E/E' Med: 7.70 E' Laterial: 9.25 E/E' Lat: 5.00 Right Ventricle TAPSE (mm): 19.60 TVS' Barry: 10.30 Tricuspid Valve TR Pk Barry: 2.24 TR Pk Grad: 20.00 RA Press: 3.00 RVSP: 23.00 Great Vessels Aorta Sinus of Valsalva: 3.00 2.0-3.5 cm Ao Asc: 2.90 2.1-3.4 cm Ao Arch: 2.60 Updated in Other Vendor System with Status of Final Jose Cornejo MD electronically signed on 12/25/2023 10:31:39 AM with status of Final
--- NOTE | 2023-12-24 13:53 | HM_ITS ---
Conclusion: 1. Patient was monitored for total period of 3 days 2. Baseline was normal sinus rhythm with average heart of 68 beats per minute 3. No significant pauses noted 4. Occasional PACs noted 5. No patient reported events MTDD
== END ==
LOC: HO.CARD 13:50
PROVIDERS: PCP Internal Medicine; Visit Provider Internal Medicine
DX: R00.2 Palpitations (principal); Z86.73 Personal history of transient ischemic attack (TIA), and cerebral infarction without residual deficits
CPT/HCPCS: 93242; 93306; 93356

== ENCOUNTER → 2023-12-24 13:53 | Outpatient (BNV) | payer MEDICARE, OTHER, SELFPAY | PROVIDERS: PCP Internal Medicine; Visit Provider Internal Medicine Cardiovascular Disease | DX: I49.1 Atrial premature depolarization (principal) | CPT/HCPCS: 93244; 93306 ==

== ENCOUNTER 2024-01-02 09:12 | Outpatient (AMB) | payer MEDICARE, OTHER, SELFPAY ==
[2024-01-02 09:16] VITALS: BP 136/64; PULSE 67; O2SAT 99; BMI 20.1
--- NOTE | 2024-01-02 09:16 | A.OFFPC_ITS ---
Vital Signs 01/02/24 09:16 Height 5 ft Weight 103 lb 0.8 oz BMI 20.1 BP 136/64 Blood Pressure Location Lt brachial Position Sitting Pulse 67 Pulse Source Pulse Oximeter Pulse Oximetry (%) 99 Oxygen Delivery Method Room Air Intake Visit Reasons: anemia Intake Note: Patient is here to follow up on anemia Interventional Sale Consultant Required: No Allergies naproxen [From NAPROSYN] Allergy (Severe, Verified 01/02/24 09:17) sensitivity niacin [From NIASPAN EXTENDED-RELEASE] Allergy (Severe, Verified 01/02/24 09:17) Rash acetaminophen [From Percocet] Allergy (Mild, Verified 01/02/24 09:17) Itching clarithromycin [From BIAXIN] Allergy (Mild, Verified 01/02/24 09:17) sensitivity codeine [CODEINE] Allergy (Mild, Verified 01/02/24 09:17) Itching esomeprazole [From Nexium] Allergy (Mild, Verified 01/02/24 09:17) Hives fluconazole [From DIFLUCAN] Allergy (Mild, Verified 01/02/24 09:17) sensitivity gatifloxacin [From TEQUIN] Allergy (Mild, Verified 01/02/24 09:17) sensitivity hydrocodone [From Vicodin] Allergy (Mild, Verified 01/02/24 09:17) Rash levofloxacin [From Levaquin] Allergy (Mild, Verified 01/02/24 09:17) sensitivity oxycodone [From Percocet] Allergy (Mild, Verified 01/02/24 09:17) Itching quinidine [QUINIDINE] Allergy (Mild, Verified 01/02/24 09:17) sensitivity Sulfa (Sulfonamide Antibiotics) [SULFA (SULFONAMIDE ANTIBIOTICS)] Allergy (Mild, Verified 01/02/24 09:17) Rash terfenadine [From SELDANE] Allergy (Mild, Verified 01/02/24 09:17) sensitivity tetracycline [TETRACYCLINE] Allergy (Mild, Verified 01/02/24 09:17) sensitivity tramadol [From Ultracet] Allergy (Mild, Verified 01/02/24 09:17) Rash cefaclor [From CECLOR] Adverse Reaction (Severe, Verified 01/02/24 09:17) Unknown cefdinir Adverse Reaction (Intermediate, Verified 01/02/24 09:17) Stomach Upset nitrofurantoin [From Macrobid] Adverse Reaction (Intermediate, Verified 01/02/24 09:17) Stomach Upset montelukast [From Singulair] Adverse Reaction (Mild, Verified 01/02/24 09:17) Headache topiramate [From TOPAMAX] Adverse Reaction (Mild, Verified 01/02/24 09:17) Stomach Upset Tobacco use date assessed: 01/02/24 Fall risk assessment: No Falls in past year Last assessed Fall Risk: 01/02/24 Dental Screening Dental Screen Date: 01/02/24 Did you have a dental visit in the last 12 months?: Yes Did you have a dental problem in the last 6 months where you did not have access to dental care?: No Was dental information given to patient?: Patient has dentist HPI anemia HPI Details 78-year-old female with a history of MICHEL D COPD history of CVA hypercholesterolemia generalized anxiety disorder coming in for follow-up. Last seen in December 2023. Echocardiogram done December 25: Normal LV systolic function with LVEF of 55-60% with impaired relaxation filling pattern 2. Mild mitral regurgitation 3. Normal RV systolic pressure 4. No pericardial effusion Holter with sinus rhythm no atrial fibrillation burden no pauses, no AV block. patient did have a mammogram done showing dense breast. Patient also had an ultrasound of the carotids done. Showing bilateral minimal non hemodynamically significant stenosis 0-49% patient had insurance change and no coverage of lexapro and does not want the generic but was insisting on the brand name. Increase from the pharmacy brand name Lexapro is 435 and the generic is 16.17 . Will try to inquire about good Rx. Patient had a horrible time after stopping the Lexapro and discussed with the patient that this is a medication that should not be stopped otherwise they will get withdrawals, from dizziness to hallucinations to nightmares. [facility] Medical History (Updated 12/10/23 @ 11:22 by Abby Potter MD) Breast cancer screening by mammogram Acute bronchitis Recurrent UTI Ocular migraine Hyperlipidemia History of CVA (cerebrovascular accident) (~2020) Tubular adenoma of colon (~2005) SERG (obstructive sleep apnea) Nasal vestibulitis Degeneration, intervertebral disc, cervical Dry eye PONV (postoperative nausea and vomiting) Arthritis of neck Anxiety Palpitation Cerebral microvascular disease Atherosclerotic cardiovascular disease Precordial chest pain URI (upper respiratory infection) Overactive bladder Microscopic hematuria Urinary urgency Osteoporosis (~1999) Renal cyst Dyspnea Mycobacterial disease GERD (gastroesophageal reflux disease) Cough Pulmonary nodules COPD (chronic obstructive pulmonary disease) Surgical History History of fusion of cervical spine History of sinus surgery History of colonoscopy History of esophagogastroduodenoscopy (EGD) History of bladder suspension procedure Family History Son No problems noted. Social History Household Members: Spouse Housing: Condominium Do you presently have visiting nurse or other home services: No Alcohol intake: never Patient Tobacco Use Status: Never used Tobacco Years Smoked: parent and smoker e-Cigarette/Vaping Use: Never Used Second Hand Smoke Exposure: Yes Advance Directives Date on File: 08/16/20 service: No Current occupational status: retired Current occupation: right hand Cognitive needs: No Hearing needs: Yes (hearing aides) Vision needs: Yes (Glasses) Questionnaire Thrive Questionnaire Date Thrive assessed: 01/02/24 I am a: Patient What is your living situation today?: I have a steady place to live Within the past 12 months, did the food you bought not last and you didn't have the money to get more?: Never true Within the past 12 months, did you worry whether your food would run out before you got money to buy more?: Never true Do you have trouble paying for medicines?: No Do you have trouble getting transportation to medical appointments?: No Do you have trouble paying your heating and electricity bill?: No Do you have trouble taking care of your child, family member or friend?: No Do you have trouble with day-to-day activities such as bathing, preparing meals, shopping, managing finances, etc.?: No Are you currently unemployed and looking for a job?: No Are you interested in more education?: No Please select the resources that you would like help with: None THRIVE Score: 0 AUDIT C Alcohol Use Questionnaire (AUDIT-C) 1. How often do you have a drink containing alcohol?: Never 3. How often do you have six or more drinks on one occasion?: Never Total Score: 0 SAVANNAH-7 AMB Questionnaire SAVANNAH-7 Date SAVANNAH - 7 assessed: 01/02/24 Source: Developed by Drs. Augie Espinoza, Yue Griffin, Michael Gallo and colleagues, with an educational aniya from [employer]. Physical exam (Primary Care) Vital Signs: Last Vital Signs Pulse 67 01/02/24 09:16 BP 136/64 01/02/24 09:16 Pulse Ox 99 01/02/24 09:16 Oxygen Delivery Method Room Air 01/02/24 09:16 BMI result Body Mass Index 20.1 Tobacco/Smoking Status: Tobacco use Status Tobacco use date assessed 01/02/24 01/02/24 09:18 Patient Tobacco Use Status Never used Tobacco 01/02/24 09:18 e-Cigarette/Vaping Use Never Used 01/02/24 09:18 Thrive Assessment: Date of Thrive Assessment Date Thrive assessed 01/02/24 01/02/24 09:18 Const General: alert; No acute distress Eyes Conjunctivae: conjunctivae normal Resp Auscultation: clear to auscultation bilaterally Cardio Rate: regular rate Rhythm: regular rhythm GI Inspection: Yes normal to inspection Extrem General: Yes normal to inspection and No edema Assessment and Plan Assessment & Plan (1) GERD (gastroesophageal reflux disease): Code(s): K21.9 - Gastro-esophageal reflux disease without esophagitis Qualifiers: Esophagitis bleeding: without hemorrhage Esophagitis presence: with esophagitis Qualified Code(s): K21.00 - Gastro-esophageal reflux disease with esophagitis, without bleeding Plan: Avoid the foods that causes that usually spicy foods, tomato products, juices, coffee, soda and foods that your sensitive to. After eating do not lie down, allow 3-4 hours before in lie down. And keep the head of bed above 30 degrees to avoid the acid from going up. (2) COPD (chronic obstructive pulmonary disease): Code(s): J44.9 - Chronic obstructive pulmonary disease, unspecified Qualifiers: COPD type: chronic bronchitis Chronic bronchitis type: simple Qualified Code(s): J41.0 - Simple chronic bronchitis Plan: Continue with inhaler as needed (3) History of CVA (cerebrovascular accident): Onset Date: ~2020 Comment: (right cerebellar hemisphere infarct - tx tPA 08/03/2021) Code(s): Z86.73 - Personal history of transient ischemic attack (TIA), and cerebral infarction without residual deficits Plan: Presently on anticoagulation with Eliquis (4) Hyperlipidemia: Code(s): E78.5 - Hyperlipidemia, unspecified Plan: Avoid fried foods, chicken skin, eggs, butter margarine, pastries and meat. Be it pork or beef they have a lot of cholesterol LDL goal of less than 70 and triglyceride of less than 150. Patient on atorvastatin 40 mg once a day August 2023 LDL of 66 (5) Generalized anxiety disorder: Code(s): F41.1 - Generalized anxiety disorder Plan: Continue with present medication Lexapro (6) Anemia: Code(s): D64.9 - Anemia, unspecified Plan: Stable Orders: Orders US renal BI Today R30.0 - Dysuria Medications: Refilled Lexapro (escitalopram oxalate) Brand name only 10 mg PO DAILY 90 tabs 0RF NS Coding Level of Care Code Est Pt Level 4 (83322) Diagnoses Gastroesophageal reflux disease with esophagitis without hemorrhage K21.00 Esophagitis bleeding: without hemorrhage Esophagitis presence: with esophagitis Simple chronic bronchitis J41.0 COPD type: chronic bronchitis Chronic bronchitis type: simple History of CVA (cerebrovascular accident) Z86.73 Hyperlipidemia E78.5 Generalized anxiety disorder F41.1 Anemia D64.9
== END 2024-01-02 10:06 | disposition home or self-care (01) ==
PROVIDERS: PCP Internal Medicine; Visit Provider Internal Medicine
DX: K21.00 Gastro-esophageal reflux disease with esophagitis, without bleeding (principal); J41.0 Simple chronic bronchitis; Z86.73 Personal history of transient ischemic attack (TIA), and cerebral infarction without residual deficits; E78.5 Hyperlipidemia, unspecified; F41.1 Generalized anxiety disorder; D64.9 Anemia, unspecified
CPT/HCPCS: 99214

== ENCOUNTER 2024-01-05 08:16 | Outpatient (AMB) | payer MEDICARE, OTHER, SELFPAY ==
--- NOTE | 2024-01-05 08:27 | MHC.OFFVIS ---
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 Accompanied by: Self / Same As Patient Allergies naproxen [From NAPROSYN] Allergy (Severe, Verified 01/05/24 08:30) sensitivity niacin [From NIASPAN EXTENDED-RELEASE] Allergy (Severe, Verified 01/05/24 08:30) Rash acetaminophen [From Percocet] Allergy (Mild, Verified 01/05/24 08:30) Itching clarithromycin [From BIAXIN] Allergy (Mild, Verified 01/05/24 08:30) sensitivity codeine [CODEINE] Allergy (Mild, Verified 01/05/24 08:30) Itching esomeprazole [From Nexium] Allergy (Mild, Verified 01/05/24 08:30) Hives fluconazole [From DIFLUCAN] Allergy (Mild, Verified 01/05/24 08:30) sensitivity gatifloxacin [From TEQUIN] Allergy (Mild, Verified 01/05/24 08:30) sensitivity hydrocodone [From Vicodin] Allergy (Mild, Verified 01/05/24 08:30) Rash levofloxacin [From Levaquin] Allergy (Mild, Verified 01/05/24 08:30) sensitivity oxycodone [From Percocet] Allergy (Mild, Verified 01/05/24 08:30) Itching quinidine [QUINIDINE] Allergy (Mild, Verified 01/05/24 08:30) sensitivity Sulfa (Sulfonamide Antibiotics) [SULFA (SULFONAMIDE ANTIBIOTICS)] Allergy (Mild, Verified 01/05/24 08:30) Rash terfenadine [From SELDANE] Allergy (Mild, Verified 01/05/24 08:30) sensitivity tetracycline [TETRACYCLINE] Allergy (Mild, Verified 01/05/24 08:30) sensitivity tramadol [From Ultracet] Allergy (Mild, Verified 01/05/24 08:30) Rash cefaclor [From CECLOR] Adverse Reaction (Severe, Verified 01/05/24 08:30) Unknown cefdinir Adverse Reaction (Intermediate, Verified 01/05/24 08:30) Stomach Upset nitrofurantoin [From Macrobid] Adverse Reaction (Intermediate, Verified 01/05/24 08:30) Stomach Upset montelukast [From Singulair] Adverse Reaction (Mild, Verified 01/05/24 08:30) Headache topiramate [From TOPAMAX] Adverse Reaction (Mild, Verified 01/05/24 08:30) Stomach Upset Medication List - Last Reconciled 01/05/24 by Chris Lincoln MD albuterol sulfate 2.5 mg (3 mL) inhalation Q6H PRN 30 days albuterol sulfate 90 mcg/actuation 2 inhalations inhalation Q6H PRN 30 days atorvastatin 40 mg PO DAILY budesonide-formoterol 80-4.5 mcg/actuation (Symbicort) 2 puffs inhalation Q12H 30 days cholecalciferol (vitamin D3) 50 mcg PO DAILY coenzyme Q10 (Co Q-10) 10 mg PO TID Eliquis (apixaban) 5 mg PO BID 90 days NS estradiol 0.01%(0.1mg/gram) (Estrace) pea size amount to urethra vaginally daily flash glucose scanning reader (Fashinating Waldemar 14 Day [place]) As directed flash glucose sensor (SouqalmalStyle Waldemar 14 Day Sensor kit) As directed fluticasone propion-salmeterol 115-21 mcg/actuation 2 puffs PO BID hydrocodone-chlorpheniramine 10-8 mg/5 mL 5 mL PO .Qhs PRN Lexapro (escitalopram oxalate) 10 mg PO DAILY NS lidocaine 4% (Lidocaine Pain Relief) 1 patch See Protocol transdermal DAILY loratadine (Claritin) 10 mg PO DAILY nebulizers As directed neomycin-polymyxin B-dexameth 3.5mg/mL-10,000 unit/mL-0.1 % 1 drp ophthalmic (eye) Q6H promethazine 12.5 mg PO Q6H PRN NS sennosides-docusate sodium 8.6-50 mg (Senna with Docusate Sodium) 2 tab-caps (2 x 8.6-50 mg) PO BEDTIME 30 days tramadol 50 mg PO BID PRN 21 days varenicline (Tyrvaya) 1 spray intranasal BID vitamin B complex (B Complex-Vitamin B12 tablet) 1 tab PO DAILY HPI HPI Comments History of Present Illness Details Adelina returns for follow up regarding stroke/PFO. She states that she recently ran out of Lexapro and got an anxiety attack and had heart racing. Now she is back on it, she is back to normal self. Otherwise, no specific cardiac complaints. [facility] Medical History (Updated 12/10/23 @ 11:22 by Abby Potter MD) Breast cancer screening by mammogram Acute bronchitis Recurrent UTI Ocular migraine Hyperlipidemia History of CVA (cerebrovascular accident) (~2020) Tubular adenoma of colon (~2005) SERG (obstructive sleep apnea) Nasal vestibulitis Degeneration, intervertebral disc, cervical Dry eye PONV (postoperative nausea and vomiting) Arthritis of neck Anxiety Palpitation Cerebral microvascular disease Atherosclerotic cardiovascular disease Precordial chest pain URI (upper respiratory infection) Overactive bladder Microscopic hematuria Urinary urgency Osteoporosis (~1999) Renal cyst Dyspnea Mycobacterial disease GERD (gastroesophageal reflux disease) Cough Pulmonary nodules COPD (chronic obstructive pulmonary disease) Surgical History History of fusion of cervical spine History of sinus surgery History of colonoscopy History of esophagogastroduodenoscopy (EGD) History of bladder suspension procedure Family History Son No problems noted. Social History Household Members: Spouse Housing: Condominium Do you presently have visiting nurse or other home services: No Alcohol intake: never Patient Tobacco Use Status: Never used Tobacco Years Smoked: parent and smoker e-Cigarette/Vaping Use: Never Used Second Hand Smoke Exposure: Yes Advance Directives Date on File: 08/16/20 service: No Current occupational status: retired Current occupation: right hand Cognitive needs: No Hearing needs: Yes (hearing aides) Vision needs: Yes (Glasses) Review of Systems Const Denies weakness ENT Denies dizziness Card Denies chest pain, Denies chest pain with activity, Denies syncope, Denies rapid heart rate, Denies pedal edema, Denies edema, Denies leg edema, Denies lightheadedness, Denies palpitations, Denies dyspnea, Denies dyspnea on exertion and Denies orthopnea Resp Denies cough, Denies dyspnea and Denies dyspnea on exertion GI Denies hematochezia and Denies change in stool character Musc Denies abnormal gait, Denies muscle cramps, Denies muscle weakness, Denies numbness, Denies radiating pain into limb and Denies tingling Neuro Denies abnormal gait, Denies dizziness, Denies syncope, Denies numbness, Denies tingling and Denies weakness Endo Denies palpitations Physical Exam Vital Signs: Last Vital Signs Pulse 74 01/05/24 08:29 BP 104/62 01/05/24 08:29 BMI result Body Mass Index 20.4 Const General: comfortable and no acute distress Orientation/consciousness: patient oriented x3 HEENT Other: Unremarkable Head: Yes normal to inspection Neck Neck: Yes normal visual inspection Chest Chest palpation & inspection: normal inspection of the chest Resp Auscultation: clear to auscultation bilaterally Cardio Palpation: normal PMI Heart sounds: S1 normal heart sound present, S2 normal heart sound present, no gallops, no murmurs and no rubs GI Palpation (GI): Soft to palpation Back/Spine/Pelvis Other: unremarkable Skin General skin exam: no rashes or lesions noted Neuro General: patient oriented x3 Extrem General: Yes normal to inspection Psych Mental Status: mental status grossly normal Assessment & Plan Assessment & Plan (1) Ischemic stroke: Code(s): I63.9 - Cerebral infarction, unspecified Plan: Cardiac studies reviewed. TTE- agitated saline contrast study positive for small PFO with [id number]-tm-[id number] shunting during Valsalva. MALA-In the 2D portion, PFO could be seen with color Doppler evidence of wjexc-ex-[id number] shunting but during saline contrast done 3x, there was no evidence of transfer bubbles from right to left side. Overall possibly small PFO with intermittent shunting but does not appear hemodynamically significant. No indication for PFO closure. She is on empiric anticoagulation for possible atrial fibrillation. No specific change with this. (2) Atherosclerotic cardiovascular disease: Code(s): I25.10 - Atherosclerotic heart disease of [place] coronary artery without angina pectoris Plan: Coronary CTA from 2018-focal plaque at the mid LAD with mild narrowing; mild calcific plaque at RCA origin without any significant luminal narrowing. Myocardial perfusion imaging study from 2019 performed at [facility]-no reversible or fixed defects; exercise capacity 4.6 Mets and reached 82% of max predicted heart rate. Clinically, she does not have any angina. Considering her frail status and lack of symptoms, will hold off any further workup at this time. Continue statins. LDL cholesterol is only in the 60s. Medications: Changed From hydrocodone-chlorpheniramine 10-8 mg/5 mL Partial Fill upon patient request. 5 mL PO .Qhs 14 days PRN 70 mL 0RF cold symptoms NS J20.9 - Acute bronchitis, unspecified To hydrocodone-chlorpheniramine 10-8 mg/5 mL Partial Fill upon patient request. 5 mL PO .Qhs PRN J20.9 - Acute bronchitis, unspecified Coding Level of Care Code Est Pt Level 4 (59357) Diagnoses Ischemic stroke I63.9 Atherosclerotic cardiovascular disease I25.10
[2024-01-05 08:29] VITALS: BP 104/62; PULSE 74; BMI 20.4
== END 2024-01-05 08:58 | disposition home or self-care (01) ==
PROVIDERS: PCP Internal Medicine; Visit Provider Internal Medicine
DX: I63.9 Cerebral infarction, unspecified (principal); I25.10 Atherosclerotic heart disease of native coronary artery without angina pectoris
CPT/HCPCS: 99214

== ENCOUNTER → 2024-01-05 08:16 | Outpatient (BNVA) | payer MEDICARE, OTHER, SELFPAY | PROVIDERS: PCP Internal Medicine; Visit Provider Internal Medicine | DX: I25.10 Atherosclerotic heart disease of native coronary artery without angina pectoris (principal); Z86.73 Personal history of transient ischemic attack (TIA), and cerebral infarction without residual deficits | CPT/HCPCS: 99212 ==

== ENCOUNTER 2024-01-09 11:29 | Outpatient (REF) | payer MEDICARE, OTHER, SELFPAY ==
[2024-01-09 11:43] LABS: MANUAL DIFF FLAG NO
[2024-01-09 12:46] LABS: Basophils Percent Auto 0.6 % (0-2); Eosinophils Absolute Auto 0.2 X10*3/uL (0.0-0.4); Eosinophils Percent Auto 2.4 % (0-4); Hematocrit 36.2 % (37.0-47.0); Hemoglobin 11.8 g/dl (12.0-16.0); Imm Gran Abs Auto 0.01 X10*3/uL (0.00-0.03); Imm Gran Pct Auto 0.1 % (0.0-0.4); Lymphocytes Absolute Auto 1.7 X10*3/uL (1.2-4.9); Lymphocytes Percent Auto 23.5 % (20-40); Mean Corpuscular HGB Conc 32.6 g/dl (31.0-35.0); Mean Corpuscular Hemoglobin 30.2 pg (27.0-33.0); Mean Corpuscular Volume 92.6 fL (80.0-98.0); Mean Platelet Volume 9.6 fL (9.4-12.3); Monocytes Absolute Auto 0.7 X10*3/uL (0.1-1.2); Monocytes Percent Auto 9.8 % (2-11); Neutrophils Absolute Auto 4.6 x10*3/uL (2.0-8.3); Neutrophils Percent Auto 63.6 % (45-73); Platelet Count 224 X10*3/uL (160-400); Red Blood Count 3.91 X10*6/uL (4.20-5.50); White Blood Count 7.2 X10*3/uL (4.8-10.8)
[2024-01-09 14:09] LABS: Alanine Aminotransferase 7 U/L (0-31); Albumin Level 3.9 g/dL (3.5-5.0); Alkaline Phosphatase 71 U/L (39-117); Anion Gap 9 (12-20); Aspartate Amino Transferase 15 U/L (5-31); Bilirubin Total 0.9 mg/dL (0.0-1.0); Blood Urea Nitrogen 9 mg/dL (9-16); Calcium 9.2 mg/dL (8.4-10.2); Carbon Dioxide 29 mmol/L (22-29); Chloride 108 mmol/L (96-108); Estimated Glomerular Filt Rate > 60; Glucose Random 88 mg/dL (60-115); Potassium 3.6 mmol/L (3.3-5.1); Sodium 142 mmol/L (135-145); Total Protein 6.1 g/dL (6.5-8.0)
[2024-01-14 06:24] LABS: Vitamin D 25-OH, D2 7 ng/mL; Vitamin D 25-OH, D3 31 ng/mL; Vitamin D 25-OH, Total 38 ng/mL (30-100)
== END 2024-01-09 11:30 | disposition home or self-care (01) ==
LOC: HO.LAB 11:29
PROVIDERS: PCP Internal Medicine; Visit Provider Student in an Organized Health Care Education/Training Program
DX: Z13.21 Encounter for screening for nutritional disorder (principal); D64.9 Anemia, unspecified
CPT/HCPCS: 36415; 80053; 82306; 85025

== ENCOUNTER 2024-01-09 16:05 | Outpatient (AMB) | payer MEDICARE, OTHER, SELFPAY ==
--- NOTE | 2024-01-09 16:09 | MHC.PC.OV ---
Intake Visit Reasons: Sinus Infection, lab results Allergies naproxen [From NAPROSYN] Allergy (Severe, Verified 01/09/24 16:10) sensitivity niacin [From NIASPAN EXTENDED-RELEASE] Allergy (Severe, Verified 01/09/24 16:10) Rash acetaminophen [From Percocet] Allergy (Mild, Verified 01/09/24 16:10) Itching clarithromycin [From BIAXIN] Allergy (Mild, Verified 01/09/24 16:10) sensitivity codeine [CODEINE] Allergy (Mild, Verified 01/09/24 16:10) Itching esomeprazole [From Nexium] Allergy (Mild, Verified 01/09/24 16:10) Hives fluconazole [From DIFLUCAN] Allergy (Mild, Verified 01/09/24 16:10) sensitivity gatifloxacin [From TEQUIN] Allergy (Mild, Verified 01/09/24 16:10) sensitivity hydrocodone [From Vicodin] Allergy (Mild, Verified 01/09/24 16:10) Rash levofloxacin [From Levaquin] Allergy (Mild, Verified 01/09/24 16:10) sensitivity oxycodone [From Percocet] Allergy (Mild, Verified 01/09/24 16:10) Itching quinidine [QUINIDINE] Allergy (Mild, Verified 01/09/24 16:10) sensitivity Sulfa (Sulfonamide Antibiotics) [SULFA (SULFONAMIDE ANTIBIOTICS)] Allergy (Mild, Verified 01/09/24 16:10) Rash terfenadine [From SELDANE] Allergy (Mild, Verified 01/09/24 16:10) sensitivity tetracycline [TETRACYCLINE] Allergy (Mild, Verified 01/09/24 16:10) sensitivity tramadol [From Ultracet] Allergy (Mild, Verified 01/09/24 16:10) Rash cefaclor [From CECLOR] Adverse Reaction (Severe, Verified 01/09/24 16:10) Unknown cefdinir Adverse Reaction (Intermediate, Verified 01/09/24 16:10) Stomach Upset nitrofurantoin [From Macrobid] Adverse Reaction (Intermediate, Verified 01/09/24 16:10) Stomach Upset montelukast [From Singulair] Adverse Reaction (Mild, Verified 01/09/24 16:10) Headache topiramate [From TOPAMAX] Adverse Reaction (Mild, Verified 01/09/24 16:10) Stomach Upset Tobacco use date assessed: 01/02/24 Fall risk assessment: No Falls in past year Last assessed Fall Risk: 01/09/24 Dental Screening Dental Screen Date: 01/09/24 Did you have a dental visit in the last 12 months?: Yes Did you have a dental problem in the last 6 months where you did not have access to dental care?: No Was dental information given to patient?: Patient has dentist HPI Sinus Infection, lab results HPI Details 78-year-old female with a history of CVA on anticoagulation COPD hypercholesterolemia generalized anxiety disorder calling in for an acute problem through Telehealth. Last seen in January 02 2024. Patient did have blood work done. complains of sinus congestion 3 weeks ago. was given prednisone and antibiotic. now congestion [facility] Medical History (Updated 01/09/24 @ 16:47 by Abby Potter MD) Breast cancer screening by mammogram Acute bronchitis Recurrent UTI Ocular migraine Hyperlipidemia History of CVA (cerebrovascular accident) (~2020) Tubular adenoma of colon (~2005) SERG (obstructive sleep apnea) Nasal vestibulitis Degeneration, intervertebral disc, cervical Dry eye PONV (postoperative nausea and vomiting) Arthritis of neck Anxiety Palpitation Cerebral microvascular disease Atherosclerotic cardiovascular disease Precordial chest pain URI (upper respiratory infection) Overactive bladder Microscopic hematuria Urinary urgency Osteoporosis (~1999) Renal cyst Dyspnea Mycobacterial disease GERD (gastroesophageal reflux disease) Cough Pulmonary nodules COPD (chronic obstructive pulmonary disease) Surgical History History of fusion of cervical spine History of sinus surgery History of colonoscopy History of esophagogastroduodenoscopy (EGD) History of bladder suspension procedure Family History Son No problems noted. Social History Household Members: Spouse Housing: Condominium Do you presently have visiting nurse or other home services: No Alcohol intake: never Patient Tobacco Use Status: Never used Tobacco Years Smoked: parent and smoker e-Cigarette/Vaping Use: Never Used Second Hand Smoke Exposure: Yes Advance Directives Date on File: 08/16/20 service: No Current occupational status: retired Current occupation: right hand Cognitive needs: No Hearing needs: Yes (hearing aides) Vision needs: Yes (Glasses) Questionnaire PHQ-9 Over the last 2 weeks, how often have you been bothered by any of the following problems? 1. Little interest or pleasure in doing things: several days 2. Feeling down, depressed, or hopeless: several days 3. Trouble falling or staying asleep, or sleeping too much: not at all 4. Feeling tired or having little energy: not at all 5. Poor appetite or overeating: not at all 6. Feeling bad about yourself - or that you are a failure or have let yourself or your family down: not at all 7. Trouble concentrating on things, such as reading the newspaper or watching television: not at all 8. Moving or speaking so slowly that other people could have noticed. Or the opposite - being so fidgety or restless that you have been moving around a lot more than usual: not at all 9. Thoughts that you would be better off or of hurting yourself in some way: not at all Total score: 2 Depression Screening Interpretation: Negative Depression Screening Done: Yes Source: Developed by Drs. Augie Espinoza, Yue Griffin, Michael Gallo and colleagues, with an educational aniya from [employer]. Thrive Questionnaire Date Thrive assessed: 01/02/24 SAVANNAH-7 AMB Questionnaire SAVANNAH-7 Date SAVANNAH - 7 assessed: 01/02/24 Source: Developed by Drs. Augie Espinoza, Michael Redding and colleagues, with an educational aniya from [employer]. Physical exam (Primary Care) Tobacco/Smoking Status: Tobacco use Status Tobacco use date assessed 01/02/24 01/09/24 16:11 Patient Tobacco Use Status Never used Tobacco 01/09/24 16:11 e-Cigarette/Vaping Use Never Used 01/09/24 16:11 PHQ-9: PHQ-9 Score PHQ-9: Total score 2 01/09/24 16:11 Depression Screening Interpretation: Negative Thrive Assessment: Date of Thrive Assessment Date Thrive assessed 01/02/24 01/09/24 16:11 Telehealth Telehealth Location of provider rendering services: practice address Location of patient: address on file Patient Identification confirmed using: Name, : Yes Telehealth method: voice only Patient verbally consented to treatment: Yes Patient verbally consented to billing insurance company: Yes Patient informed of any privacy concerns related to visit: Yes Minutes spent on Phone/Video with Pt.: 15 Assessment and Plan Assessment & Plan (1) Anemia: Code(s): D64.9 - Anemia, unspecified Plan: Chronic and stable and will continue to monitor (2) Generalized anxiety disorder: Code(s): F41.1 - Generalized anxiety disorder Plan: Patient was finally able to get the medication (3) Sinus congestion: Code(s): R09.81 - Nasal congestion Plan: Advised to continue on taking the allergy medication Claritin and antibiotic sent in. Keep well hydrated. Medications: New amoxicillin 875 mg PO BID 14 tabs 0RF R09.81 - Nasal congestion Coding Level of Care Code Est Pt Level 4 (90390) Diagnoses Anemia D64.9 Generalized anxiety disorder F41.1 Sinus congestion R09.81 Additional Codes PHQ-9 - 20920 - PHQ-9 Billing: ([id number])
== END 2024-01-09 17:00 | disposition home or self-care (01) ==
PROVIDERS: PCP Internal Medicine; Visit Provider Internal Medicine
DX: D64.9 Anemia, unspecified (principal); F41.1 Generalized anxiety disorder; R09.81 Nasal congestion; Z86.73 Personal history of transient ischemic attack (TIA), and cerebral infarction without residual deficits
CPT/HCPCS: 99214

== ENCOUNTER 2024-01-15 10:36 | Outpatient (AMB) | payer MEDICARE, OTHER, SELFPAY ==
[2024-01-15 10:40] VITALS: BP 116/64; PULSE 66; O2SAT 99; BMI 20.4
--- NOTE | 2024-01-15 10:40 | MHC.OFFVIS ---
Intake Vital Signs 01/15/24 10:40 Height 5 ft Weight 104 lb 11.513 oz BMI 20.4 BP 116/64 Blood Pressure Location Rt brachial Position Sitting Pulse 66 Pulse Source Pulse Oximeter Pulse Oximetry (%) 99 Oxygen Delivery Method Room Air Intake Visit Reasons: Osteoporosis/prolia inj Intake Note: Patient last seen 07/16/23 presents today for follow up and prolia injection Would like to discuss prolia, doesn't feel it is working. 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 Allergies naproxen [From NAPROSYN] Allergy (Severe, Verified 01/15/24 10:47) sensitivity niacin [From NIASPAN EXTENDED-RELEASE] Allergy (Severe, Verified 01/15/24 10:47) Rash acetaminophen [From Percocet] Allergy (Mild, Verified 01/15/24 10:47) Itching clarithromycin [From BIAXIN] Allergy (Mild, Verified 01/15/24 10:47) sensitivity codeine [CODEINE] Allergy (Mild, Verified 01/15/24 10:47) Itching esomeprazole [From Nexium] Allergy (Mild, Verified 01/15/24 10:47) Hives fluconazole [From DIFLUCAN] Allergy (Mild, Verified 01/15/24 10:47) sensitivity gatifloxacin [From TEQUIN] Allergy (Mild, Verified 01/15/24 10:47) sensitivity hydrocodone [From Vicodin] Allergy (Mild, Verified 01/15/24 10:47) Rash levofloxacin [From Levaquin] Allergy (Mild, Verified 01/15/24 10:47) sensitivity oxycodone [From Percocet] Allergy (Mild, Verified 01/15/24 10:47) Itching quinidine [QUINIDINE] Allergy (Mild, Verified 01/15/24 10:47) sensitivity Sulfa (Sulfonamide Antibiotics) [SULFA (SULFONAMIDE ANTIBIOTICS)] Allergy (Mild, Verified 01/15/24 10:47) Rash terfenadine [From SELDANE] Allergy (Mild, Verified 01/15/24 10:47) sensitivity tetracycline [TETRACYCLINE] Allergy (Mild, Verified 01/15/24 10:47) sensitivity tramadol [From Ultracet] Allergy (Mild, Verified 01/15/24 10:47) Rash cefaclor [From CECLOR] Adverse Reaction (Severe, Verified 01/15/24 10:47) Unknown cefdinir Adverse Reaction (Intermediate, Verified 01/15/24 10:47) Stomach Upset nitrofurantoin [From Macrobid] Adverse Reaction (Intermediate, Verified 01/15/24 10:47) Stomach Upset montelukast [From Singulair] Adverse Reaction (Mild, Verified 01/15/24 10:47) Headache topiramate [From TOPAMAX] Adverse Reaction (Mild, Verified 01/15/24 10:47) Stomach Upset Medication List - Last Reconciled 01/15/24 by Jerilyn Byrnes MD albuterol sulfate 2.5 mg (3 mL) inhalation Q6H PRN 30 days albuterol sulfate 90 mcg/actuation 2 inhalations inhalation Q6H PRN 30 days amoxicillin 875 mg PO BID atorvastatin 40 mg PO DAILY budesonide-formoterol 80-4.5 mcg/actuation (Symbicort) 2 puffs inhalation Q12H 30 days cholecalciferol (vitamin D3) 50 mcg PO DAILY coenzyme Q10 (Co Q-10) 10 mg PO TID Eliquis (apixaban) 5 mg PO BID 90 days NS estradiol 0.01%(0.1mg/gram) (Estrace) pea size amount to urethra vaginally daily flash glucose scanning reader ([employer] Waldemar 14 Day [place]) As directed flash glucose sensor ([employer] Waldemar 14 Day Sensor kit) As directed fluticasone propion-salmeterol 115-21 mcg/actuation 2 puffs PO BID hydrocodone-chlorpheniramine 10-8 mg/5 mL 5 mL PO .Qhs PRN Lexapro (escitalopram oxalate) 10 mg PO DAILY NS lidocaine 4% (Lidocaine Pain Relief) 1 patch See Protocol transdermal DAILY loratadine (Claritin) 10 mg PO DAILY nebulizers As directed neomycin-polymyxin B-dexameth 3.5mg/mL-10,000 unit/mL-0.1 % 1 drp ophthalmic (eye) Q6H promethazine 12.5 mg PO Q6H PRN NS sennosides-docusate sodium 8.6-50 mg (Senna with Docusate Sodium) 2 tab-caps (2 x 8.6-50 mg) PO BEDTIME 30 days tramadol 50 mg PO BID PRN 21 days varenicline (Tyrvaya) 1 spray intranasal BID vitamin B complex (B Complex-Vitamin B12 tablet) 1 tab PO DAILY HPI HPI Comments History of Present Illness Details Patient is a 78yoF who presents for follow-up of osteoporosis. She was last seen 07/2023. She states that she feels about the same overall. Gets some pain in her right hand and wrist with activity. Her right shoulder pain has been a little worse and she is going to Dr. Avelar for an injection soon. She stated that missed a step recently and she injured her right ankle, it is not swollen, she does not feel that she fractured it. [facility] Medical History Breast cancer screening by mammogram Acute bronchitis Recurrent UTI Ocular migraine Hyperlipidemia History of CVA (cerebrovascular accident) (~2020) Tubular adenoma of colon (~2005) SERG (obstructive sleep apnea) Nasal vestibulitis Degeneration, intervertebral disc, cervical Dry eye PONV (postoperative nausea and vomiting) Arthritis of neck Anxiety Palpitation Cerebral microvascular disease Atherosclerotic cardiovascular disease Precordial chest pain URI (upper respiratory infection) Overactive bladder Microscopic hematuria Urinary urgency Osteoporosis (~1999) Renal cyst Dyspnea Mycobacterial disease GERD (gastroesophageal reflux disease) Cough Pulmonary nodules COPD (chronic obstructive pulmonary disease) Surgical History History of fusion of cervical spine History of sinus surgery History of colonoscopy History of esophagogastroduodenoscopy (EGD) History of bladder suspension procedure Family History Son No problems noted. Social History Household Members: Spouse Housing: Condominium Do you presently have visiting nurse or other home services: No Alcohol intake: never Patient Tobacco Use Status: Never used Tobacco Years Smoked: parent and smoker e-Cigarette/Vaping Use: Never Used Second Hand Smoke Exposure: Yes Advance Directives Date on File: 08/16/20 service: No Current occupational status: retired Current occupation: right hand Cognitive needs: No Hearing needs: Yes (hearing aides) Vision needs: Yes (Glasses) Review of Systems Musc Reports arthralgias, Denies joint swelling, Reports limited range of motion and Reports stiffness Physical Exam Vital Signs: Last Vital Signs Pulse 66 01/15/24 10:40 BP 116/64 01/15/24 10:40 Pulse Ox 99 01/15/24 10:40 Oxygen Delivery Method Room Air 01/15/24 10:40 BMI result Body Mass Index 20.4 Const General: cooperative, healthy appearing and comfortable Nutritional Appearance: average body habitus Orientation/consciousness: patient oriented x3 Limitations: no limitations HEENT Head: Yes normocephalic and Yes atraumatic Mouth: moist mucous membranes Resp Effort & Inspection: normal respiratory effort and able to speak in complete sentences Neuro General: patient oriented x3 Extrem Other: Right wrist pain with pronation and supination Positive empty can test right shoulder No right ankle swelling or tenderness Assessment & Plan Assessment & Plan (1) Osteoporosis: Onset Date: ~1999 Comment: Diagnosed prior to 2018 DEXA 04/2019 osteoporosis T score-2.9 left hip, L-spine T-score -2.8 Received Reclast: 12/23/2018, 01/21/2020, 01/20/2021. DEXA 09/22/2021 with T-score of-3.2 left femoral neck Prolia 01/20/2022- present after dental clearance Wrist fracture 01/23 DEXA 10/2023 osteoporosis T-score left femoral neck-4.5, left hip total -3.9, L-spine -0.9 Code(s): M81.0 - Age-related osteoporosis without current pathological fracture Qualifiers: Osteoporosis type: age-related Presence of current pathological fracture: without current pathological fracture Qualified Code(s): M81.0 - Age-related osteoporosis without current pathological fracture Plan: This is a 78-year-old female with osteoporosis who presents for follow-up. She has not had any fractures since last visit. Her most recent DEXA scan shows worsening osteoporosis. She has failed Prolia. Likely she needs an anabolic agent. Will check labs to rule out secondary causes of osteoporosis. Discussed treatment options Tymlos, versus Forteo or avidity. Patient would like to avoid avidity due to her history of stroke. Will start prior authorization for Tymlos Follow-up in 3 months Plan I spent 30 minutes reviewing patient's chart, evaluating patient, ordering diagnostic workup, counseling patient and documenting in the chart Orders: Orders Parathyroid Hormone Intact Today M81.0 - Age-related osteoporosis without current pathological fracture Protein Electrophoresis, Serum Today M81.0 - Age-related osteoporosis without current pathological fracture Magnesium Today M81.0 - Age-related osteoporosis without current pathological fracture Phosphorus Today M81.0 - Age-related osteoporosis without current pathological fracture Other Ref Test - Misc Today M81.0 - Age-related osteoporosis without current pathological fracture Coding Level of Care Code Est Pt Level 4 (66664) Diagnoses Age-related osteoporosis without current pathological fracture M81.0 Osteoporosis type: age-related Presence of current pathological fracture: without current pathological fracture
== END 2024-01-15 11:10 | disposition home or self-care (01) ==
PROVIDERS: PCP Internal Medicine; Visit Provider Student in an Organized Health Care Education/Training Program
DX: M81.0 Age-related osteoporosis without current pathological fracture (principal)
CPT/HCPCS: 99214

== ENCOUNTER → 2024-01-15 10:36 | Outpatient (BNVA) | payer MEDICARE, OTHER, SELFPAY | PROVIDERS: PCP Internal Medicine; Visit Provider Student in an Organized Health Care Education/Training Program | DX: M81.0 Age-related osteoporosis without current pathological fracture (principal); Z79.899 Other long term (current) drug therapy; Z79.01 Long term (current) use of anticoagulants | CPT/HCPCS: 36415; 80053; 83735; 83970; 84100; 84165; 85025; 99212 ==

== ENCOUNTER 2024-01-15 11:19 | Outpatient (REF) | payer MEDICARE, OTHER, SELFPAY ==
[2024-01-15 13:18] LABS: MANUAL DIFF FLAG NO
[2024-01-15 13:37] LABS: Basophils Percent Auto 0.5 % (0-2); Eosinophils Absolute Auto 0.2 X10*3/uL (0.0-0.4); Eosinophils Percent Auto 2.3 % (0-4); Hematocrit 37.7 % (37.0-47.0); Hemoglobin 12.4 g/dl (12.0-16.0); Imm Gran Abs Auto 0.01 X10*3/uL (0.00-0.03); Imm Gran Pct Auto 0.1 % (0.0-0.4); Lymphocytes Absolute Auto 1.8 X10*3/uL (1.2-4.9); Mean Corpuscular HGB Conc 32.9 g/dl (31.0-35.0); Mean Corpuscular Hemoglobin 30.2 pg (27.0-33.0); Mean Platelet Volume 9.6 fL (9.4-12.3); Monocytes Absolute Auto 0.8 X10*3/uL (0.1-1.2); Monocytes Percent Auto 10.3 % (2-11); Neutrophils Absolute Auto 4.7 x10*3/uL (2.0-8.3); Neutrophils Percent Auto 62.8 % (45-73); Platelet Count 226 X10*3/uL (160-400); White Blood Count 7.5 X10*3/uL (4.8-10.8)
[2024-01-15 13:51] LABS: Alanine Aminotransferase 9 U/L (0-31); Albumin Level 4.2 g/dL (3.5-5.0); Alkaline Phosphatase 78 U/L (39-117); Anion Gap 11 (12-20); Aspartate Amino Transferase 19 U/L (5-31); Blood Urea Nitrogen 11 mg/dL (9-16); Calcium 9.6 mg/dL (8.4-10.2); Carbon Dioxide 27 mmol/L (22-29); Chloride 107 mmol/L (96-108); Estimated Glomerular Filt Rate > 60; Glucose Random 87 mg/dL (60-115); Magnesium 2.3 mg/dL (1.6-2.6); Phosphorus 2.7 mg/dL (2.7-4.5); Potassium 4.2 mmol/L (3.3-5.1); Sodium 141 mmol/L (135-145); Total Protein 6.7 g/dL (6.5-8.0)
[2024-01-15 14:05] LABS: Parathyroid Hormone Intact 67.3 pg/mL (8.7-77.1)
[2024-01-16 21:58] LABS: Prot Elec - Albumin 4.3 g/dL (3.8-4.8); Prot Elec - Alpha1 0.3 g/dL (0.2-0.3); Prot Elec - Alpha2 0.6 g/dL (0.5-0.9); Prot Elec - Beta 1 0.4 g/dL (0.4-0.6); Prot Elec - Beta 2 0.3 g/dL (0.2-0.5); Prot Elec - Gamma 0.8 g/dL (0.8-1.7); Prot Elec - Total Protein 6.5 g/dL (6.1-8.1)
== END 2024-01-15 11:20 | disposition home or self-care (01) ==
LOC: HO.10HDL 11:19
PROVIDERS: Visit Provider Student in an Organized Health Care Education/Training Program
DX: Z13.89 Encounter for screening for other disorder (principal)
CPT/HCPCS: 36415; 80053; 83735; 83970; 84100; 84165; 85025

== ENCOUNTER 2024-01-16 10:43 | Outpatient (REF) | payer MEDICARE, OTHER, SELFPAY ==
--- NOTE | ~2024-01-16 | US_ITS ---
EXAMINATION: US RETROPERITONEAL LIMITED (RENAL ONLY) CLINICAL INFORMATION: Dysuria. COMPARISON: Renal ultrasound dated 03/07/2020. Renal ultrasound dated 11/11/2022. TECHNIQUE: Real-time ultrasound of the kidneys was performed. FINDINGS: RIGHT KIDNEY: 9.7 x 3.5 x 5.0 cm (SAG x AP x TRV). The kidney is normal in size, contour, and echogenicity. Renal cortical thickness is normal. No calculi. There is mild fullness of the renal pelvis. No micheal hydronephrosis. There is an exophytic cyst within the interpolar region measuring 1.1 x 0.3 x 1.0 cm. There has been no significant change in size of the cyst compared with most recent ultrasound exam. LEFT KIDNEY: 9.2 x 3.0 x 4.6 cm (SAG x AP x TRV). The kidney is normal in size, contour, and echogenicity. Renal cortical thickness is normal. No calculi or focal parenchymal lesions. No hydronephrosis. US/US renal BI IMPRESSION: Right kidney: There is mild fullness of the renal pelvis. No micheal hydronephrosis. There is a small, 1.1 cm exophytic cyst within the interpolar region. Left kidney: Unremarkable.
== END 2024-01-16 10:44 | disposition home or self-care (01) ==
LOC: HO.US 10:43
PROVIDERS: PCP Internal Medicine; Visit Provider Internal Medicine
DX: R30.0 Dysuria (principal)
CPT/HCPCS: 76775

== ENCOUNTER 2024-01-19 09:41 | Outpatient (AMB) | payer MEDICARE, OTHER, SELFPAY ==
[2024-01-19 09:42] VITALS: BP 128/70; PULSE 70; O2SAT 99; BMI 20.1
--- NOTE | 2024-01-19 09:42 | A.OFFPC_ITS ---
Vital Signs 01/19/24 09:42 Height 5 ft Weight 103 lb BMI 20.1 BP 128/70 Blood Pressure Location Lt brachial Position Sitting Pulse 70 Pulse Source Pulse Oximeter Pulse Oximetry (%) 99 Oxygen Delivery Method Room Air Intake Visit Reasons: 6mon F/U Intake Note: Patient is here to follow up on Global Implementation Manager Required: No Allergies naproxen [From NAPROSYN] Allergy (Severe, Verified 01/19/24 09:43) sensitivity niacin [From NIASPAN EXTENDED-RELEASE] Allergy (Severe, Verified 01/19/24 09:43) Rash acetaminophen [From Percocet] Allergy (Mild, Verified 01/19/24 09:43) Itching clarithromycin [From BIAXIN] Allergy (Mild, Verified 01/19/24 09:43) sensitivity codeine [CODEINE] Allergy (Mild, Verified 01/19/24 09:43) Itching esomeprazole [From Nexium] Allergy (Mild, Verified 01/19/24 09:43) Hives fluconazole [From DIFLUCAN] Allergy (Mild, Verified 01/19/24 09:43) sensitivity gatifloxacin [From TEQUIN] Allergy (Mild, Verified 01/19/24 09:43) sensitivity hydrocodone [From Vicodin] Allergy (Mild, Verified 01/19/24 09:43) Rash levofloxacin [From Levaquin] Allergy (Mild, Verified 01/19/24 09:43) sensitivity oxycodone [From Percocet] Allergy (Mild, Verified 01/19/24 09:43) Itching quinidine [QUINIDINE] Allergy (Mild, Verified 01/19/24 09:43) sensitivity Sulfa (Sulfonamide Antibiotics) [SULFA (SULFONAMIDE ANTIBIOTICS)] Allergy (Mild, Verified 01/19/24 09:43) Rash terfenadine [From SELDANE] Allergy (Mild, Verified 01/19/24 09:43) sensitivity tetracycline [TETRACYCLINE] Allergy (Mild, Verified 01/19/24 09:43) sensitivity tramadol [From Ultracet] Allergy (Mild, Verified 01/19/24 09:43) Rash cefaclor [From CECLOR] Adverse Reaction (Severe, Verified 01/19/24 09:43) Unknown cefdinir Adverse Reaction (Intermediate, Verified 01/19/24 09:43) Stomach Upset nitrofurantoin [From Macrobid] Adverse Reaction (Intermediate, Verified 01/19/24 09:43) Stomach Upset montelukast [From Singulair] Adverse Reaction (Mild, Verified 01/19/24 09:43) Headache topiramate [From TOPAMAX] Adverse Reaction (Mild, Verified 01/19/24 09:43) Stomach Upset Medication List - Last Reconciled 01/19/24 by Abby Potter MD albuterol sulfate 2.5 mg (3 mL) inhalation Q6H PRN 30 days albuterol sulfate 90 mcg/actuation 2 inhalations inhalation Q6H PRN 30 days atorvastatin 40 mg PO DAILY budesonide-formoterol 80-4.5 mcg/actuation (Symbicort) 2 puffs inhalation Q12H 30 days cholecalciferol (vitamin D3) 50 mcg PO DAILY coenzyme Q10 (Co Q-10) 10 mg PO TID Eliquis (apixaban) 5 mg PO BID 90 days NS estradiol 0.01%(0.1mg/gram) (Estrace) pea size amount to urethra vaginally daily flash glucose scanning reader ([employer] Waldemar 14 Day [place]) As directed flash glucose sensor ([employer] Waldemar 14 Day Sensor kit) As directed fluticasone propion-salmeterol 115-21 mcg/actuation 2 puffs PO BID hydrocodone-chlorpheniramine 10-8 mg/5 mL 5 mL PO .Qhs PRN Lexapro (escitalopram oxalate) 10 mg PO DAILY NS lidocaine 4% (Lidocaine Pain Relief) 1 patch See Protocol transdermal DAILY loratadine (Claritin) 10 mg PO DAILY nebulizers As directed neomycin-polymyxin B-dexameth 3.5mg/mL-10,000 unit/mL-0.1 % 1 drp ophthalmic (eye) Q6H promethazine 12.5 mg PO Q6H PRN NS sennosides-docusate sodium 8.6-50 mg (Senna with Docusate Sodium) 2 tab-caps (2 x 8.6-50 mg) PO BEDTIME 30 days tramadol 50 mg PO BID PRN 21 days varenicline (Tyrvaya) 1 spray intranasal BID vitamin B complex (B Complex-Vitamin B12 tablet) 1 tab PO DAILY Tobacco use date assessed: 01/19/24 Fall risk assessment: No Falls in past year Last assessed Fall Risk: 01/19/24 HPI 6mon F/U HPI Details 78-year-old female with a history of ane gustavo generalized anxiety disorder and sinus congestion last seen with was 01/09/2024. Patient had some dysuria and an ultrasound was done showing right kidney with mild fullness of the renal pelvis no hydronephrosis noted 1.1 cm cyst while the left kidney is normal. Patient also followed up with Rheumatology for the osteoporosis on Prolia injection DEXA scan April showing osteoporosis. Failed Prolia and being worked up for other options. concern L chest nevi and L nose bump- diffuculty urinating [facility] Medical History (Updated 01/19/24 @ 10:07 by Abby Potter MD) Breast cancer screening by mammogram Acute bronchitis Recurrent UTI Ocular migraine Hyperlipidemia History of CVA (cerebrovascular accident) (~2020) Tubular adenoma of colon (~2005) SERG (obstructive sleep apnea) Nasal vestibulitis Degeneration, intervertebral disc, cervical Dry eye PONV (postoperative nausea and vomiting) Arthritis of neck Anxiety Palpitation Cerebral microvascular disease Atherosclerotic cardiovascular disease Precordial chest pain URI (upper respiratory infection) Overactive bladder Microscopic hematuria Urinary urgency Osteoporosis (~1999) Renal cyst Dyspnea Mycobacterial disease GERD (gastroesophageal reflux disease) Cough Pulmonary nodules COPD (chronic obstructive pulmonary disease) Surgical History History of fusion of cervical spine History of sinus surgery History of colonoscopy History of esophagogastroduodenoscopy (EGD) History of bladder suspension procedure Family History Son No problems noted. Social History Household Members: Spouse Housing: Condominium Do you presently have visiting nurse or other home services: No Alcohol intake: never Patient Tobacco Use Status: Never used Tobacco Years Smoked: parent and smoker e-Cigarette/Vaping Use: Never Used Second Hand Smoke Exposure: Yes Advance Directives Date on File: 08/16/20 service: No Current occupational status: retired Current occupation: right hand Cognitive needs: No Hearing needs: Yes (hearing aides) Vision needs: Yes (Glasses) Questionnaire Thrive Questionnaire Date Thrive assessed: 01/02/24 AUDIT C Alcohol Use Questionnaire (AUDIT-C) 1. How often do you have a drink containing alcohol?: Never 3. How often do you have six or more drinks on one occasion?: Never Total Score: 0 SAVANNAH-7 AMB Questionnaire SAVANNAH-7 Date SAVANNAH - 7 assessed: 01/02/24 Source: Developed by Drs. Augie Espinoza, Yue Griffin, Michael Gallo and colleagues, with an educational aniya from [employer]. Physical exam (Primary Care) Vital Signs: Last Vital Signs Pulse 70 01/19/24 09:42 BP 128/70 01/19/24 09:42 Pulse Ox 99 01/19/24 09:42 Oxygen Delivery Method Room Air 01/19/24 09:42 BMI result Body Mass Index 20.1 Tobacco/Smoking Status: Tobacco use Status Tobacco use date assessed 01/19/24 01/19/24 09:51 Patient Tobacco Use Status Never used Tobacco 01/19/24 09:51 e-Cigarette/Vaping Use Never Used 01/19/24 09:51 Thrive Assessment: Date of Thrive Assessment Date Thrive assessed 01/02/24 01/19/24 09:51 Const General: alert; No acute distress Eyes Conjunctivae: conjunctivae normal Chest Other: Left chest nevi 3 mm reassured, left nose has 1 mm papule Resp Auscultation: clear to auscultation bilaterally Cardio Rate: regular rate Rhythm: regular rhythm GI Inspection: Yes normal to inspection Extrem General: Yes normal to inspection and No edema Assessment and Plan Assessment & Plan (1) Osteoporosis: Onset Date: ~1999 Comment: Diagnosed prior to 2018 DEXA 04/2019 osteoporosis T score-2.9 left hip, L-spine T-score -2.8 Received Reclast: 12/23/2018, 01/21/2020, 01/20/2021. DEXA 09/22/2021 with T-score of-3.2 left femoral neck Prolia 01/20/2022- present after dental clearance Wrist fracture 01/23 DEXA 10/2023 osteoporosis T-score left femoral neck-4.5, left hip total -3.9, L- spine -0.9 Code(s): M81.0 - Age-related osteoporosis without current pathological fracture Qualifiers: Osteoporosis type: age-related Presence of current pathological fracture: without current pathological fracture Qualified Code(s): M81.0 - Age- related osteoporosis without current pathological fracture Plan: October 2023 last bone density Reclast and Prolia failure and follows up with Rheumatology and workup to find out options (2) GERD (gastroesophageal reflux disease): Code(s): K21.9 - Gastro-esophageal reflux disease without esophagitis Qualifiers: Esophagitis presence: with esophagitis Esophagitis bleeding: without hemorrhage Qualified Code(s): K21.00 - Gastro-esophageal reflux disease with esophagitis, without bleeding Plan: Avoid the foods that causes that usually spicy foods, tomato products, juices, coffee, soda and foods that your sensitive to. After eating do not lie down, allow 3-4 hours before in lie down. And keep the head of bed above 30 degrees to avoid the acid from going up. (3) COPD (chronic obstructive pulmonary disease): Code(s): J44.9 - Chronic obstructive pulmonary disease, unspecified Qualifiers: COPD type: chronic bronchitis Chronic bronchitis type: simple Qualified Code(s): J41.0 - Simple chronic bronchitis Plan: Continue with inhalers albuterol and controller (4) History of CVA (cerebrovascular accident): Onset Date: ~2020 Comment: (right cerebellar hemisphere infarct - tx tPA 08/03/2021) Code(s): Z86.73 - Personal history of transient ischemic attack (TIA), and cerebral infarction without residual deficits Plan: On anticoagulation with Eliquis (5) Hyperlipidemia: Code(s): E78.5 - Hyperlipidemia, unspecified Plan: Avoid fried foods, chicken skin, eggs, butter margarine, pastries and meat. Be it pork or beef they have a lot of cholesterol LDL goal of less than 70 and triglyceride of less than 150 presently on atorvastatin 40 mg once a day (6) Overactive bladder: Code(s): N32.81 - Overactive bladder Orders: Referrals Urology Referral N32.81 - Overactive bladder Medications: Refilled Eliquis (apixaban) 5 mg PO BID 90 days 180 tabs 3RF NS R91.8 - Other nonspecific abnormal finding of lung field Coding Level of Care Code Est Pt Level 4 (18134) Diagnoses Age-related osteoporosis without current pathological fracture M81.0 Osteoporosis type: age-related Presence of current pathological fracture: without current pathological fracture Gastroesophageal reflux disease with esophagitis without hemorrhage K21.00 Esophagitis presence: with esophagitis Esophagitis bleeding: without hemorrhage Simple chronic bronchitis J41.0 COPD type: chronic bronchitis Chronic bronchitis type: simple History of CVA (cerebrovascular accident) Z86.73 Hyperlipidemia E78.5 Overactive bladder N32.81
== END 2024-01-19 10:23 | disposition home or self-care (01) ==
PROVIDERS: PCP Internal Medicine; Visit Provider Internal Medicine
DX: M81.0 Age-related osteoporosis without current pathological fracture (principal); J41.0 Simple chronic bronchitis; K21.00 Gastro-esophageal reflux disease with esophagitis, without bleeding; Z86.73 Personal history of transient ischemic attack (TIA), and cerebral infarction without residual deficits; E78.5 Hyperlipidemia, unspecified; N32.81 Overactive bladder
CPT/HCPCS: 99214

== ENCOUNTER 2024-01-29 11:08 | Outpatient (REF) | payer MEDICARE, OTHER, SELFPAY ==
[2024-01-29 12:26] LABS: Appearance Urine Clear; Color Urine Yellow; Glucose Urine UA Negative (Negative); Leukocyte Esterase Urine Small (1+) (Negative); Nitrite Urine Negative (Negative); Specific Gravity - Urine 1.015 (1.005-1.025); UMIC TRIGGER UACC YES; Urine Blood Trace (Negative); Urine Ketones Negative (Negative); Urine Protein Negative (Neg-Trace)
[2024-01-29 12:28] LABS: Bacteria Urine None Seen (None Seen); Hyaline Casts Urine 0-2 /LPF (0-2); Squamous Epithelial Cell Urine 0-2 /HPF (0-2); UACC Culture Trigger YES; WBC Urine 21-50 /HPF (0-5)
== END 2024-01-29 11:09 | disposition home or self-care (01) ==
LOC: HO.LAB 11:08
PROVIDERS: PCP Internal Medicine; Visit Provider Internal Medicine
DX: R39.15 Urgency of urination (principal); M54.50 Low back pain, unspecified
CPT/HCPCS: 81001; 87086; 87088; 87186

== ENCOUNTER 2024-02-04 12:40 | Outpatient (REF) | payer MEDICARE, OTHER, SELFPAY ==
--- NOTE | ~2024-02-04 | US_ITS ---
EXAMINATION: US SCREENING ULTRASOUND BREAST, BILATERAL CLINICAL INFORMATION: Dense breast tissue. COMPARISON: None available. TECHNIQUE: Ultrasound of the breast is performed with real-time vásquez scale imaging and color Doppler. Attention was given to all 4 quadrants of both breasts, the retroareolar regions, and both axillary regions. FINDINGS: There is no focal suspicious finding. There is no solid mass, cystic abnormality, architectural abnormality, duct ectasia, or edema in the soft tissue planes. Only normal dense breast tissue is identified. No axillary abnormality is present. Results were discussed with the patient at time of visit. US/US breast BI complete IMPRESSION: Normal bilateral screening breast ultrasound. No findings suspicious for malignancy. ASSESSMENT: BI-RADS 1 - Negative RECOMMENDATION: 1 year F/U This patient's information was entered into a reminder system with a target due date for their next mammogram.
== END 2024-02-04 12:41 | disposition home or self-care (01) ==
LOC: HO.MAMMO 12:40
PROVIDERS: PCP Internal Medicine; Visit Provider Internal Medicine
DX: R92.30 Dense breasts, unspecified (principal)
CPT/HCPCS: 76641

== ENCOUNTER → 2024-02-04 13:00 | Outpatient (BNV) | payer MEDICARE, OTHER, SELFPAY | PROVIDERS: PCP Internal Medicine; Visit Provider Radiology Diagnostic Radiology | DX: R92.2 Inconclusive mammogram (principal) | CPT/HCPCS: 76641 ==

== ENCOUNTER → 2024-02-06 08:38 | Outpatient (BNVA) | payer MEDICARE, OTHER, SELFPAY | PROVIDERS: PCP Internal Medicine; Visit Provider Student in an Organized Health Care Education/Training Program ==

== ENCOUNTER 2024-02-09 10:51 | Outpatient (REF) | payer MEDICARE, OTHER, SELFPAY ==
[2024-02-09 11:30] LABS: Immature Retic Fraction 7.6 % (3.0-15.9); Retic HGB Equivalent 33.3 pg (30.0-35.0); Reticulocyte Percent 1.2 % (0.5-1.8); Reticulocytes Absolute 0.046 X10*6/uL (0.026-0.095)
[2024-02-09 12:11] LABS: Cholesterol 120 mg/dL (<200); HDL Cholesterol 56 mg/dL (>40); Iron 93 mcg/dL (30-160); LDL Cholesterol Calculated 54 mg/dL (<100); Percent Iron Saturation 44 % (15-50); Total Iron Binding Capacity 209 mcg/dL (228-428); Triglycerides 54 mg/dL (<150); Unsaturated Iron Binding 116 ug/dL
[2024-02-09 12:34] LABS: Folate 9.3 ng/mL (> or = 4.0); Vitamin B12 480 pg/mL (200-900)
[2024-02-09 12:36] LABS: Ferritin 230 ng/mL (10-250); Vitamin D 25-OH Total 37.3 ng/mL (>30)
[2024-02-09 12:46] LABS: Appearance Urine Clear; Color Urine Yellow; Glucose Urine UA Negative (Negative); Leukocyte Esterase Urine Small (1+) (Negative); Nitrite Urine Negative (Negative); Specific Gravity - Urine 1.015 (1.005-1.025); UMIC TRIGGER UACC YES; Urine Blood Small (1+) (Negative); Urine Ketones Negative (Negative); Urine Protein Negative (Neg-Trace)
[2024-02-09 13:01] LABS: Bacteria Urine None Seen (None Seen); Hyaline Casts Urine 0-2 /LPF (0-2); Squamous Epithelial Cell Urine 0-2 /HPF (0-2); UACC Culture Trigger YES; WBC Urine 0-5 /HPF (0-5)
== END 2024-02-09 10:52 | disposition home or self-care (01) ==
LOC: HO.LAB 10:51
PROVIDERS: PCP Internal Medicine; Visit Provider Internal Medicine
DX: E78.00 Pure hypercholesterolemia, unspecified (principal); D64.9 Anemia, unspecified; R82.90 Unspecified abnormal findings in urine
CPT/HCPCS: 36415; 80061; 81001; 82306; 82607; 82728; 82746; 83540; 84439; 84443; 85045; 87086

== ENCOUNTER 2024-02-12 10:21 | Outpatient (AMB) | payer MEDICARE, OTHER, SELFPAY ==
[2024-02-12 10:29] VITALS: BP 136/72; PULSE 81; O2SAT 98; BMI 20.7
--- NOTE | 2024-02-12 10:29 | A.OFFPC_ITS ---
Vital Signs 02/12/24 10:29 Height 5 ft Weight 106 lb BMI 20.7 BP 136/72 Blood Pressure Location Lt brachial Position Sitting Pulse 81 Pulse Source Pulse Oximeter Pulse Oximetry (%) 98 Oxygen Delivery Method Room Air Intake Visit Reasons: reaction to tymos Intake Note: Patient has had 6 doses so far of this injection. Reporting getting light headaches but was not bad. They recently got a call from the pharmacy asking how she was doing on the med and she asked what were the side effects. One is dizziness and vomiting, which is what she experienced yesterday. She says the room was spinning so much she had to keep her eyes closed, shortly after she ended up throwing up. Not sure if she is a good candidate for maybe Prolia every 6 months and maybe taking alendronate weekly. I believe she is under the impression that with taking these meds her bones will get stronger and not break. She says when she was on prolia she ended up breaking her wrist. I think she believes she should not be breaking any bones on these medications. Allergies naproxen [From NAPROSYN] Allergy (Severe, Verified 02/12/24 10:29) sensitivity niacin [From NIASPAN EXTENDED-RELEASE] Allergy (Severe, Verified 02/12/24 10:29) Rash acetaminophen [From Percocet] Allergy (Mild, Verified 02/12/24 10:29) Itching clarithromycin [From BIAXIN] Allergy (Mild, Verified 02/12/24 10:29) sensitivity codeine [CODEINE] Allergy (Mild, Verified 02/12/24 10:29) Itching esomeprazole [From Nexium] Allergy (Mild, Verified 02/12/24 10:29) Hives fluconazole [From DIFLUCAN] Allergy (Mild, Verified 02/12/24 10:29) sensitivity gatifloxacin [From TEQUIN] Allergy (Mild, Verified 02/12/24 10:29) sensitivity hydrocodone [From Vicodin] Allergy (Mild, Verified 02/12/24 10:29) Rash levofloxacin [From Levaquin] Allergy (Mild, Verified 02/12/24 10:29) sensitivity oxycodone [From Percocet] Allergy (Mild, Verified 02/12/24 10:29) Itching quinidine [QUINIDINE] Allergy (Mild, Verified 02/12/24 10:29) sensitivity Sulfa (Sulfonamide Antibiotics) [SULFA (SULFONAMIDE ANTIBIOTICS)] Allergy (Mild, Verified 02/12/24 10:29) Rash terfenadine [From SELDANE] Allergy (Mild, Verified 02/12/24 10:29) sensitivity tetracycline [TETRACYCLINE] Allergy (Mild, Verified 02/12/24 10:29) sensitivity tramadol [From Ultracet] Allergy (Mild, Verified 02/12/24 10:29) Rash cefaclor [From CECLOR] Adverse Reaction (Severe, Verified 02/12/24 10:29) Unknown cefdinir Adverse Reaction (Intermediate, Verified 02/12/24 10:29) Stomach Upset nitrofurantoin [From Macrobid] Adverse Reaction (Intermediate, Verified 02/12/24 10:29) Stomach Upset montelukast [From Singulair] Adverse Reaction (Mild, Verified 02/12/24 10:29) Headache topiramate [From TOPAMAX] Adverse Reaction (Mild, Verified 02/12/24 10:29) Stomach Upset Tobacco use date assessed: 01/19/24 Fall risk assessment: No Falls in past year Last assessed Fall Risk: 02/12/24 Dental Screening Dental Screen Date: 02/12/24 Did you have a dental visit in the last 12 months?: Yes Did you have a dental problem in the last 6 months where you did not have access to dental care?: No Was dental information given to patient?: Patient has dentist HPI reaction to tymos HPI Details 78-year-old female with a history of ost eoporosis seeing Rheumatology GERD COPD history of CVA on anticoagulation hypercholesterolemia and overactive bladder last seen in January 2024. Patient complains of having urinary symptoms and advised to follow-up with urology. Rheumatology started patient on tymlos has had 6 shots- and 1 day had dizziness and BRICENO- took migraine med and went to sleep . Patient came in asking for my opinion on the medication. But discussed with the medication that this is Rheumatology and for your osteoporosis and as far as the side effect would recommend to hold today's med and if feeling better tomorrow to restart but strongly advised to talk to rheumatology about this and ask their opinion as they have use this medication more than I do. [facility] Medical History (Updated 02/12/24 @ 10:51 by Abby Potter MD) Dense breast Breast cancer screening by mammogram Acute bronchitis Recurrent UTI Ocular migraine Hyperlipidemia History of CVA (cerebrovascular accident) (~2020) Tubular adenoma of colon (~2005) SERG (obstructive sleep apnea) Nasal vestibulitis Degeneration, intervertebral disc, cervical Dry eye PONV (postoperative nausea and vomiting) Arthritis of neck Anxiety Palpitation Cerebral microvascular disease Atherosclerotic cardiovascular disease Precordial chest pain URI (upper respiratory infection) Overactive bladder Microscopic hematuria Urinary urgency Osteoporosis (~1999) Renal cyst Dyspnea Mycobacterial disease GERD (gastroesophageal reflux disease) Cough Pulmonary nodules COPD (chronic obstructive pulmonary disease) Surgical History History of fusion of cervical spine History of sinus surgery History of colonoscopy History of esophagogastroduodenoscopy (EGD) History of bladder suspension procedure Family History Son No problems noted. Social History Household Members: Spouse Housing: Condominium Do you presently have visiting nurse or other home services: No Alcohol intake: never Patient Tobacco Use Status: Never used Tobacco Years Smoked: parent and smoker e-Cigarette/Vaping Use: Never Used Second Hand Smoke Exposure: Yes Advance Directives Date on File: 08/16/20 service: No Current occupational status: retired Current occupation: right hand Cognitive needs: No Hearing needs: Yes (hearing aides) Vision needs: Yes (Glasses) Questionnaire PHQ-9 Over the last 2 weeks, how often have you been bothered by any of the following problems? 1. Little interest or pleasure in doing things: several days 2. Feeling down, depressed, or hopeless: several days 3. Trouble falling or staying asleep, or sleeping too much: not at all 4. Feeling tired or having little energy: not at all 5. Poor appetite or overeating: not at all 6. Feeling bad about yourself - or that you are a failure or have let yourself or your family down: not at all 7. Trouble concentrating on things, such as reading the newspaper or watching television: not at all 8. Moving or speaking so slowly that other people could have noticed. Or the opposite - being so fidgety or restless that you have been moving around a lot more than usual: not at all 9. Thoughts that you would be better off or of hurting yourself in some way: not at all Total score: 2 Depression Screening Interpretation: Negative Depression Screening Done: Yes Source: Developed by Drs. Augie Espinoza, Michael Redding and colleagues, with an educational aniya from [employer]. Thrive Questionnaire Date Thrive assessed: 01/02/24 AUDIT C Alcohol Use Questionnaire (AUDIT-C) 1. How often do you have a drink containing alcohol?: Never Total Score: 0 SAVANNAH-7 AMB Questionnaire SAVANNAH-7 Date SAVANNAH - 7 assessed: 02/12/24 Feeling nervous, anxious, or on edge: 2 = More than half the days Not being able to stop or control worryin = More than half the days Worrying too much about different things: 2 = More than half the days Trouble relaxin = More than half the days Being so restless that it is hard to sit still: 1 = Several days Becoming easily annoyed or irritable: 1 = Several days Feeling afraid as if something awful might happen: 2 = More than half the days Total SAVANNAH-7 score (0-4 normal; 5-9 mild; 10-14 moderate; 15-21 severe): 12 Source: Developed by Drs. Augie Espinoza, Yue Griffin, Michael Gallo and colleagues, with an educational aniya from [employer]. Physical exam (Primary Care) Vital Signs: Last Vital Signs Pulse 81 02/12/24 10:29 BP 136/72 02/12/24 10:29 Pulse Ox 98 02/12/24 10:29 Oxygen Delivery Method Room Air 02/12/24 10:29 BMI result Body Mass Index 20.7 Tobacco/Smoking Status: Tobacco use Status Tobacco use date assessed 01/19/24 02/12/24 10:32 Patient Tobacco Use Status Never used Tobacco 02/12/24 10:32 e-Cigarette/Vaping Use Never Used 02/12/24 10:32 PHQ-9: PHQ-9 Score PHQ-9: Total score 2 02/12/24 10:42 Depression Screening Interpretation: Negative Thrive Assessment: Date of Thrive Assessment Date Thrive assessed 01/02/24 02/12/24 10:32 Const General: alert; No acute distress Eyes Conjunctivae: conjunctivae normal Resp Auscultation: clear to auscultation bilaterally Cardio Rate: regular rate Rhythm: regular rhythm GI Inspection: Yes normal to inspection Extrem General: Yes normal to inspection and No edema Assessment and Plan Assessment & Plan (1) Urinary tract infection: Code(s): N39.0 - Urinary tract infection, site not specified Plan: Patient advised to follow-up with urology (2) Osteoporosis: Onset Date: ~1999 Comment: Diagnosed prior to 2018 DEXA 04/2019 osteoporosis T score-2.9 left hip, L-spine T-score -2.8 Received Reclast: 12/23/2018, 01/21/2020, 01/20/2021. DEXA 09/22/2021 with T-score of-3.2 left femoral neck Prolia 01/20/2022- present after dental clearance Wrist fracture 01/23 DEXA 10/2023 osteoporosis T-score left femoral neck-4.5, left hip total -3.9, L-spine -0.9 Code(s): M81.0 - Age-related osteoporosis without current pathological fracture Qualifiers: Osteoporosis type: age-related Presence of current pathological fracture: without current pathological fracture Qualified Code(s): M81.0 - Age- related osteoporosis without current pathological fracture Plan: Patient continues to follow-up with Rheumatology and decided on Tymlos. Discussed with the patient to talk to Rheumatology regarding this medication as well as side effects and to decide on what to do from this time on. (3) COPD (chronic obstructive pulmonary disease): Code(s): J44.9 - Chronic obstructive pulmonary disease, unspecified Qualifiers: COPD type: chronic bronchitis Chronic bronchitis type: simple Qualified Code(s): J41.0 - Simple chronic bronchitis Plan: Continue with the inhaler as needed on Symbicort and albuterol Coding Level of Care Code Est Pt Level 4 (21265) Diagnoses Urinary tract infection N39.0 Age-related osteoporosis without current pathological fracture M81.0 Osteoporosis type: age-related Presence of current pathological fracture: without current pathological fracture Simple chronic bronchitis J41.0 COPD type: chronic bronchitis Chronic bronchitis type: simple Additional Codes PHQ-9 - 63211 - PHQ-9 Billing: ([id number])
== END 2024-02-12 11:05 | disposition home or self-care (01) ==
PROVIDERS: PCP Internal Medicine; Visit Provider Internal Medicine
DX: N39.0 Urinary tract infection, site not specified (principal); M81.0 Age-related osteoporosis without current pathological fracture; J41.0 Simple chronic bronchitis
CPT/HCPCS: 99214

== ENCOUNTER 2024-02-24 08:49 | Outpatient (REF) | payer MEDICARE, OTHER, SELFPAY ==
[2024-02-24 09:05] LABS: MANUAL DIFF FLAG NO
--- NOTE | 2024-02-24 09:15 | ECG_ITS ---
Test Reason : r11.0 Blood Pressure : / mmHG Vent. Rate : 061 BPM Atrial Rate : 061 BPM P-R Int : 152 ms QRS Dur : 078 ms QT Int : 452 ms P-R-T Axes : 075 -17 -47 degrees QTc Int : 455 ms Normal sinus rhythm Nonspecific ST and T wave abnormality Abnormal ECG When compared with ECG of 28-JUL-2023 12:25, Nonspecific T wave abnormality now evident in Lateral leads Referred By: Abby Potter Electronically Signed By:ANTWAN BONILLA MD
[2024-02-24 09:20] LABS: Basophils Percent Auto 0.7 % (0-2); Eosinophils Absolute Auto 0.2 X10*3/uL (0.0-0.4); Eosinophils Percent Auto 3.9 % (0-4); Hematocrit 36.9 % (37.0-47.0); Hemoglobin 12.2 g/dl (12.0-16.0); Imm Gran Abs Auto 0.01 X10*3/uL (0.00-0.03); Imm Gran Pct Auto 0.2 % (0.0-0.4); Lymphocytes Absolute Auto 1.6 X10*3/uL (1.2-4.9); Lymphocytes Percent Auto 29.8 % (20-40); Mean Corpuscular HGB Conc 33.1 g/dl (31.0-35.0); Mean Corpuscular Hemoglobin 30.5 pg (27.0-33.0); Mean Corpuscular Volume 92.3 fL (80.0-98.0); Mean Platelet Volume 9.1 fL (9.4-12.3); Monocytes Absolute Auto 0.5 X10*3/uL (0.1-1.2); Monocytes Percent Auto 9.6 % (2-11); Neutrophils Percent Auto 55.8 % (45-73); Platelet Count 241 X10*3/uL (160-400); Red Cell Distribution Width 12.7 % (11.0-16.0); White Blood Count 5.4 X10*3/uL (4.8-10.8)
[2024-02-24 10:21] LABS: Alanine Aminotransferase 7 U/L (0-31); Albumin Level 3.9 g/dL (3.5-5.0); Alkaline Phosphatase 70 U/L (39-117); Anion Gap 10 (12-20); Aspartate Amino Transferase 17 U/L (5-31); Bilirubin Total 0.7 mg/dL (0.0-1.0); Blood Urea Nitrogen 9 mg/dL (9-16); Calcium 9.3 mg/dL (8.4-10.2); Carbon Dioxide 28 mmol/L (22-29); Chloride 107 mmol/L (96-108); Estimated Glomerular Filt Rate > 60; Glucose Random 136 mg/dL (60-115); Potassium 3.6 mmol/L (3.3-5.1); Sodium 141 mmol/L (135-145); Total Protein 6.3 g/dL (6.5-8.0)
[2024-02-24 10:29] LABS: Free T4 (Free Thyroxine) 0.81 ng/dL (0.71-1.85); Thyroid Stimulating Hormone 0.74 uIU/mL (0.32-4.0)
[2024-02-24 15:41] LABS: Appearance Urine Cloudy; Color Urine Yellow; Glucose Urine UA Negative (Negative); Leukocyte Esterase Urine Small (1+) (Negative); Nitrite Urine Negative (Negative); PH 6.5 (5.0-9.0); Specific Gravity - Urine <= 1.005 (1.005-1.025); UMIC TRIGGER UACC YES; Urine Blood Trace (Negative); Urine Ketones Negative (Negative); Urine Protein Negative (Neg-Trace)
[2024-02-24 15:57] LABS: Bacteria Urine None Seen (None Seen); Hyaline Casts Urine 0-2 /LPF (0-2); RBC Urine 0-2 /HPF (0-2); Squamous Epithelial Cell Urine 0-2 /HPF (0-2); UACC Culture Trigger YES; WBC Urine 0-5 /HPF (0-5)
== END 2024-02-24 08:50 | disposition home or self-care (01) ==
LOC: HO.LAB 08:49
PROVIDERS: PCP Internal Medicine; Visit Provider Internal Medicine
DX: R11.0 Nausea (principal)
CPT/HCPCS: 36415; 80053; 81001; 83735; 84439; 84443; 85025; 93005

== ENCOUNTER → 2024-02-24 09:15 | Outpatient (BNV) | payer MEDICARE, OTHER, SELFPAY | PROVIDERS: PCP Internal Medicine; Visit Provider Internal Medicine Cardiovascular Disease | DX: R11.0 Nausea (principal); R94.31 Abnormal electrocardiogram [ECG] [EKG] | CPT/HCPCS: 93010 ==

== ENCOUNTER 2024-02-25 09:58 | Outpatient (AMB) | payer MEDICARE, OTHER, SELFPAY ==
--- NOTE | 2024-02-25 10:05 | A.OFFVIS_ITS ---
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 Required: No Allergies naproxen [From NAPROSYN] Allergy (Severe, Verified 02/25/24 10:09) sensitivity niacin [From NIASPAN EXTENDED-RELEASE] Allergy (Severe, Verified 02/25/24 10:09) Rash acetaminophen [From Percocet] Allergy (Mild, Verified 02/25/24 10:09) Itching clarithromycin [From BIAXIN] Allergy (Mild, Verified 02/25/24 10:09) sensitivity codeine [CODEINE] Allergy (Mild, Verified 02/25/24 10:09) Itching esomeprazole [From Nexium] Allergy (Mild, Verified 02/25/24 10:09) Hives fluconazole [From DIFLUCAN] Allergy (Mild, Verified 02/25/24 10:09) sensitivity gatifloxacin [From TEQUIN] Allergy (Mild, Verified 02/25/24 10:09) sensitivity hydrocodone [From Vicodin] Allergy (Mild, Verified 02/25/24 10:09) Rash levofloxacin [From Levaquin] Allergy (Mild, Verified 02/25/24 10:09) sensitivity oxycodone [From Percocet] Allergy (Mild, Verified 02/25/24 10:09) Itching quinidine [QUINIDINE] Allergy (Mild, Verified 02/25/24 10:09) sensitivity Sulfa (Sulfonamide Antibiotics) [SULFA (SULFONAMIDE ANTIBIOTICS)] Allergy (Mild, Verified 02/25/24 10:09) Rash terfenadine [From SELDANE] Allergy (Mild, Verified 02/25/24 10:09) sensitivity tetracycline [TETRACYCLINE] Allergy (Mild, Verified 02/25/24 10:09) sensitivity tramadol [From Ultracet] Allergy (Mild, Verified 02/25/24 10:09) Rash cefaclor [From CECLOR] Adverse Reaction (Severe, Verified 02/25/24 10:09) Unknown cefdinir Adverse Reaction (Intermediate, Verified 02/25/24 10:09) Stomach Upset nitrofurantoin [From Macrobid] Adverse Reaction (Intermediate, Verified 02/25/24 10:09) Stomach Upset montelukast [From Singulair] Adverse Reaction (Mild, Verified 02/25/24 10:09) Headache topiramate [From TOPAMAX] Adverse Reaction (Mild, Verified 02/25/24 10:09) Stomach Upset HPI Comments Details: The patient is a 78 y/o woman with pulmonary nodules, COPD and dyspnea. She did have a recent CT scan of the chest that we personally reviewed here in the office. This was with contrast. No evidence of any mediastinal structure abnormalities. The patient did have a slight dilation of the esophagus so therefore we need to monitor closely for reflux. However her lingular nodular densities appear to be a little better to be. She still has the atelectasis to the lingula. Although her pulmonary nodules are small subcentimeter in size and will need follow-up. She is wondering about the hypodensities of the liver and spleen. These appear to be very small and likely benign. We need to continue to monitor did nodules in the low and also those findings. We did look at her CT scan of the chest in a pulmonary nodules have been stable in the level of the lingula some degree of mucous plugging. 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 In the meantime she has pulmonary nodules for next CT scan of the chest is going to be for August of this year. Will follow up with her after that. In the meantime she will continue the azithromycin and follow up with Cardiology regarding her left-sided chest discomfort. I did give her reflux diet she will continue for now to minimize her reflux symptoms. 08/21/2022 the patient is here for a pulmonary follow-up visit. Her discomfort is now subsided. She did not complete the prednisone since she was better and she does not like the adverse effects. She is it the rest meantime. The patient had a CT scan back in July demonstrating stable chronic findings. No additional testing is warranted. She did also undergo blood work which was reassuring. We did reviewed in the office. At this point the patient continues uses respiratory therapy as prescribed. 02/26/2023 the patient is here for pulmonary follow-up visit. Overall the patient is doing well. Unfortunately she had a bad fall fracturing her right wrist. She does have a cast right now. From a respiratory status the patient started coughing more. For the last few weeks. Moderate severity. She had been using the Advair just once a day. She did increase it to twice a day she is feeling better. As far as blood work her eosinophils are elevated suggesting an allergic exposure. I did recommend she continue the Advair twice a day. The patient does not need any further imaging at this time. Allergy medications she started on Kelli. Seems to be working well. She cannot use Singulair. If the symptoms worsen she will call the office otherwise I will see her in 6 months. 09/03/2023 the patient is here for a pulmonary follow-up visit. Since we last spoke the patient developed a URI. Ultimately developing significant nasal congestion and cough. Subsequently after that she became more congested. She did go to urgent care. She did have a chest x-ray which is without any acute disease. She was took [id number] medications with improvement. Overall she is feeling better. She does have the Advair inhaler although she does not use it all the time. The patient also complains of some scapular discomfort on the right side. Seems to have some pleuritic component. Appears to be more musculoskeletal. She is had significant issues with scoliosis. At this point the patient will try putting a Lidoderm patch that she does have at home. If she is no better she can always have a repeat chest x-ray. In his symptoms worsen and if not clear based on the x-ray we can consider getting another CT scan. Her last CT scan was last fall demonstrating stability of the parenchymal changes that she is had which is reassuring. 02/25/2024 the patient is here for a pulmonary follow-up visit. Overall she has been doing okay. She has not benefitted from the Symbicort. She felt like the Advair was more effective. Although her respiratory exam is pretty go od right now I do not believe that she needs any maintenance inhalers. She should have a rescue inhaler available in case she develops any chest tightness or shortness of breath. She does get short of breath with activity. [id number] severity. She complains of back pain. Her last chest x-ray demonstrates significant scoliosis. I do believe that this may be contributing to her musculoskeletal issues causing discomfort. She does take as needed Tylenol with good effect. Her last imaging study was otherwise reassuring from a pulmonary standpoint. Will go ahead and repeat her x-ray when she gets back from her trip. On the patient also complains of sinus pressure and also postnasal drip. She believes she has a component of sinusitis. She has multiple allergies. She can try taking this more course of doxycycline although if she develops any symptoms she can stop the medicine. The patient also can use a Neti bottle with distilled water to try to provide nasal rinsing. [facility] Medical History (Updated 02/25/24 @ 20:36 by Eduardo Lino MD) Back pain Dense breast Breast cancer screening by mammogram Acute bronchitis Recurrent UTI Ocular migraine Hyperlipidemia History of CVA (cerebrovascular accident) (~2020) Tubular adenoma of colon (~2005) SERG (obstructive sleep apnea) Nasal vestibulitis Degeneration, intervertebral disc, cervical Dry eye PONV (postoperative nausea and vomiting) Arthritis of neck Anxiety Palpitation Cerebral microvascular disease Atherosclerotic cardiovascular disease Precordial chest pain URI (upper respiratory infection) Overactive bladder Microscopic hematuria Urinary urgency Osteoporosis (~1999) Renal cyst Dyspnea Mycobacterial disease GERD (gastroesophageal reflux disease) Cough Pulmonary nodules COPD (chronic obstructive pulmonary disease) Surgical History History of fusion of cervical spine History of sinus surgery History of colonoscopy History of esophagogastroduodenoscopy (EGD) History of bladder suspension procedure Family History Son No problems noted. Social History Household Members: Spouse Housing: Condominium Do you presently have visiting nurse or other home services: No Alcohol intake: never Patient Tobacco Use Status: Never used Tobacco Years Smoked: parent and smoker e-Cigarette/Vaping Use: Never Used Second Hand Smoke Exposure: Yes Advance Directives Date on File: 08/16/20 service: No Current occupational status: retired Current occupation: right hand Cognitive needs: No Hearing needs: Yes (hearing aides) Vision needs: Yes (Glasses) Review of Systems Const Reports difficulty sleeping and Denies night sweats ENT Denies lip swelling, Denies sinus pain, Reports sinus pressure and Denies tongue swelling Card Denies palpitations, Denies dyspnea and Reports dyspnea on exertion Resp Reports cough, Denies pain on inspiration, Denies pain with cough, Denies dyspnea and Reports dyspnea on exertion GI Denies abdominal pain Musc Reports back pain and Reports myalgias Neuro Denies Neuro-related abnormal movements and Denies Abnormal speech present Psych Denies no additional complaints Endo Denies palpitations Jose Alejandro/Lymph Denies easy bleeding and Denies lymphadenopathy Aller/Immun Denies lip swelling and Denies tongue swelling Physical Exam Vital Signs: Last Vital Signs Pulse 76 02/25/24 10:06 Pulse Ox 97 02/25/24 10:06 Oxygen Delivery Method Room Air 02/25/24 10:06 BMI result Body Mass Index 21.1 Const General: comfortable Eyes Conjunctivae: conjunctival abnormal bilateral pallor Neck Neck: Yes normal visual inspection, Yes full ROM and Yes no lymphadenopathy Chest Chest palpation & inspection: normal inspection of the chest Resp Effort & Inspection: normal respiratory effort Auscultation: diminished lung sounds Cardio Rate: regular rate Rhythm: regular rhythm Heart sounds: S1 normal heart sound present and S2 normal heart sound present GI Palpation (GI): Soft to palpation and nontender Auscultation: normal bowel sounds Skin General skin exam: rashes and/or lesions noted Neuro Speech: No Abnormal speech present Extrem Right upper extremity: wrist Details: other (cast) Assessment & Plan Assessment & Plan (1) COPD (chronic obstructive pulmonary disease): Code(s): J44.9 - Chronic obstructive pulmonary disease, unspecified Category: Medical Qualifiers: COPD type: chronic bronchitis Chronic bronchitis type: simple Qualified Code(s): J41.0 - Simple chronic bronchitis (2) Cough: Code(s): R05 - Cough Category: Medical Qualifiers: Cough type: chronic Qualified Code(s): R05.3 - Chronic cough (3) Dyspnea: Code(s): R06.00 - Dyspnea, unspecified Category: Medical Qualifiers: Dyspnea type: shortness of breath Qualified Code(s): R06.02 - Shortness of breath (4) Pulmonary nodules: Code(s): R91.8 - Other nonspecific abnormal finding of lung field Category: Medical (5) Back pain: Code(s): M54.9 - Dorsalgia, unspecified Category: Medical Qualifiers: Back pain location: low back pain Chronicity: chronic Back pain laterality: bilateral Sciatica presence: without sciatica Qualified Code(s): M54.50 - Low back pain, unspecified; G89.29 - Other chronic pain Plan stop symbicort, minimizing steroids with the osteoporosis continue LUZ as needed CXR start singulair 1/2 dose Doxycyline x 10 days continue kelli F/U 6 months Orders: Orders XR chest 2V Today M54.9 - Dorsalgia, unspecified Medications: New doxycycline hyclate 100 mg PO BID 20 caps 0RF 10 days montelukast (Singulair) 10 mg PO BEDTIME 30 tabs 11RF 30 days J45.909 - Unspecified asthma, uncomplicated Refilled albuterol sulfate 90 mcg/actuation 2 inhalations inhalation Q6H PRN 18 grams 12RF shortness of breath or wheezing 30 days J44.9 - Chronic obstructive pulmonary disease, unspecified Coding Level of Care Code Est Pt Level 4 (71348) Diagnoses Simple chronic bronchitis J41.0 COPD type: chronic bronchitis Chronic bronchitis type: simple Chronic cough R05.3 Cough type: chronic Shortness of breath R06.02 Dyspnea type: shortness of breath Pulmonary nodules R91.8 Chronic bilateral low back pain without sciatica M54.50; G89.29 Back pain location: low back pain Chronicity: chronic Back pain laterality: bilateral Sciatica presence: without sciatica Time Spent (min) 17
[2024-02-25 10:06] VITALS: PULSE 76; O2SAT 97; BMI 21.1
== END 2024-02-25 10:47 | disposition home or self-care (01) ==
PROVIDERS: PCP Internal Medicine; Visit Provider Hospitalist
DX: J41.0 Simple chronic bronchitis (principal); R06.02 Shortness of breath; R91.8 Other nonspecific abnormal finding of lung field; M54.50 Low back pain, unspecified; G89.29 Other chronic pain
CPT/HCPCS: 99214

== ENCOUNTER → 2024-02-25 09:58 | Outpatient (BNVA) | payer MEDICARE, OTHER, SELFPAY | PROVIDERS: PCP Internal Medicine; Visit Provider Hospitalist | DX: J41.0 Simple chronic bronchitis (principal); R06.02 Shortness of breath; R91.8 Other nonspecific abnormal finding of lung field; M54.50 Low back pain, unspecified; G89.29 Other chronic pain | CPT/HCPCS: 99212 ==

== ENCOUNTER 2024-03-01 09:00 | Outpatient (REF) | payer MEDICARE, OTHER, SELFPAY ==
--- NOTE | ~2024-03-01 | XR_ITS ---
EXAMINATION: XR CHEST CLINICAL INFORMATION: Dorsalgia COMPARISON: Chest radiograph from 10/03/2023 TECHNIQUE: 2 views of the chest were obtained. FINDINGS: No focal consolidation. No pneumothorax. Trachea is midline. Cardiac mediastinal silhouette is stable. Aorta demonstrates atherosclerotic calcifications. No large pleural effusion. Dextrocurvature of the midthoracic spine with multilevel degenerative changes. Soft tissues are unremarkable. XR/XR chest 2V IMPRESSION: No acute cardiopulmonary process.
== END 2024-03-01 09:01 | disposition home or self-care (01) ==
LOC: HO.XRAY 09:00
PROVIDERS: PCP Internal Medicine; Visit Provider Hospitalist
DX: M54.9 Dorsalgia, unspecified (principal)
CPT/HCPCS: 71046

== ENCOUNTER 2024-03-05 09:20 | Outpatient (AMB) | payer MEDICARE, OTHER, SELFPAY ==
--- NOTE | 2024-03-05 09:49 | MHC.OFFVIS ---
Vital Signs 03/05/24 09:49 Weight 108 lb 0.424 oz Intake Visit Reasons: Prevnar 20 Allergies naproxen [From NAPROSYN] Allergy (Severe, Verified 03/05/24 09:50) sensitivity niacin [From NIASPAN EXTENDED-RELEASE] Allergy (Severe, Verified 03/05/24 09:50) Rash acetaminophen [From Percocet] Allergy (Mild, Verified 03/05/24 09:50) Itching clarithromycin [From BIAXIN] Allergy (Mild, Verified 03/05/24 09:50) sensitivity codeine [CODEINE] Allergy (Mild, Verified 03/05/24 09:50) Itching esomeprazole [From Nexium] Allergy (Mild, Verified 03/05/24 09:50) Hives fluconazole [From DIFLUCAN] Allergy (Mild, Verified 03/05/24 09:50) sensitivity gatifloxacin [From TEQUIN] Allergy (Mild, Verified 03/05/24 09:50) sensitivity hydrocodone [From Vicodin] Allergy (Mild, Verified 03/05/24 09:50) Rash levofloxacin [From Levaquin] Allergy (Mild, Verified 03/05/24 09:50) sensitivity oxycodone [From Percocet] Allergy (Mild, Verified 03/05/24 09:50) Itching quinidine [QUINIDINE] Allergy (Mild, Verified 03/05/24 09:50) sensitivity Sulfa (Sulfonamide Antibiotics) [SULFA (SULFONAMIDE ANTIBIOTICS)] Allergy (Mild, Verified 03/05/24 09:50) Rash terfenadine [From SELDANE] Allergy (Mild, Verified 03/05/24 09:50) sensitivity tetracycline [TETRACYCLINE] Allergy (Mild, Verified 03/05/24 09:50) sensitivity tramadol [From Ultracet] Allergy (Mild, Verified 03/05/24 09:50) Rash cefaclor [From CECLOR] Adverse Reaction (Severe, Verified 03/05/24 09:50) Unknown cefdinir Adverse Reaction (Intermediate, Verified 03/05/24 09:50) Stomach Upset nitrofurantoin [From Macrobid] Adverse Reaction (Intermediate, Verified 03/05/24 09:50) Stomach Upset montelukast [From Singulair] Adverse Reaction (Mild, Verified 03/05/24 09:50) Headache topiramate [From TOPAMAX] Adverse Reaction (Mild, Verified 03/05/24 09:50) Stomach Upset Medication List - Last Reconciled 03/05/24 by Elida Hu LPN albuterol sulfate 2.5 mg (3 mL) inhalation Q6H PRN 30 days albuterol sulfate 90 mcg/actuation 2 inhalations inhalation Q6H PRN 30 days atorvastatin 40 mg PO DAILY budesonide-formoterol 80-4.5 mcg/actuation (Symbicort) 2 puffs inhalation Q12H 30 days cholecalciferol (vitamin D3) 50 mcg PO DAILY coenzyme Q10 (Co Q-10) 10 mg PO TID doxycycline hyclate 100 mg PO BID 10 days Eliquis (apixaban) 5 mg PO BID 90 days NS estradiol 0.01%(0.1mg/gram) (Estrace) pea size amount to urethra vaginally daily flash glucose scanning reader ([employer] Waldemar 14 Day [place]) As directed flash glucose sensor ([employer] Waldemar 14 Day Sensor kit) As directed hydrocodone-chlorpheniramine 10-8 mg/5 mL 5 mL PO .Qhs PRN insulin syringe-needle U-100 Use daily with Tymlos Lexapro (escitalopram oxalate) 10 mg PO DAILY NS lidocaine 4% (Lidocaine Pain Relief) 1 patch See Protocol transdermal DAILY loratadine (Claritin) 10 mg PO DAILY montelukast (Singulair) 10 mg PO BEDTIME 30 days nebulizers As directed neomycin-polymyxin B-dexameth 3.5mg/mL-10,000 unit/mL-0.1 % 1 drp ophthalmic (eye) Q6H nitrofurantoin monohyd/m-cryst 100 mg (Macrobid) 100 mg PO Q12H 7 days promethazine 12.5 mg PO Q6H PRN NS sennosides-docusate sodium 8.6-50 mg (Senna with Docusate Sodium) 2 tab-caps (2 x 8.6-50 mg) PO BEDTIME 30 days tramadol 50 mg PO BID PRN 21 days Tymlos (abaloparatide) 80 mcg (0.04 mL) subcut DAILY NS varenicline (Tyrvaya) 1 spray intranasal BID vitamin B complex (B Complex-Vitamin B12 tablet) 1 tab PO DAILY PFSH Medical History (Updated 02/25/24 @ 20:36 by Eduardo Lino MD) Back pain Dense breast Breast cancer screening by mammogram Acute bronchitis Recurrent UTI Ocular migraine Hyperlipidemia History of CVA (cerebrovascular accident) (~2020) Tubular adenoma of colon (~2005) SERG (obstructive sleep apnea) Nasal vestibulitis Degeneration, intervertebral disc, cervical Dry eye PONV (postoperative nausea and vomiting) Arthritis of neck Anxiety Palpitation Cerebral microvascular disease Atherosclerotic cardiovascular disease Precordial chest pain URI (upper respiratory infection) Overactive bladder Microscopic hematuria Urinary urgency Osteoporosis (~1999) Renal cyst Dyspnea Mycobacterial disease GERD (gastroesophageal reflux disease) Cough Pulmonary nodules COPD (chronic obstructive pulmonary disease) Surgical History History of fusion of cervical spine History of sinus surgery History of colonoscopy History of esophagogastroduodenoscopy (EGD) History of bladder suspension procedure Family History Son No problems noted. Social History Household Members: Spouse Housing: Condominium Do you presently have visiting nurse or other home services: No Alcohol intake: never Patient Tobacco Use Status: Never used Tobacco Years Smoked: parent and smoker e-Cigarette/Vaping Use: Never Used Second Hand Smoke Exposure: Yes Advance Directives Date on File: 08/16/20 service: No Current occupational status: retired Current occupation: right hand Cognitive needs: No Hearing needs: Yes (hearing aides) Vision needs: Yes (Glasses) Assessment & Plan Assessment & Plan (1) COPD (chronic obstructive pulmonary disease): Code(s): J44.9 - Chronic obstructive pulmonary disease, unspecified Category: Medical Qualifiers: COPD type: chronic bronchitis Chronic bronchitis type: simple Qualified Code(s): J41.0 - Simple chronic bronchitis Plan prevnar 20 Orders: Orders Pneumococcal 20 Immunization Today Z23 - Encounter for immunization Coding Level of Care Code Established Pt Est Pt Level 1 (20863) Patient Type Established Diagnoses Simple chronic bronchitis J41.0 COPD type: chronic bronchitis Chronic bronchitis type: simple Comment NURSE VISIT ONLY
== END 2024-03-05 09:44 | disposition home or self-care (01) ==
PROVIDERS: PCP Internal Medicine; Visit Provider Hospitalist
DX: Z23 Encounter for immunization (principal); J41.0 Simple chronic bronchitis

== ENCOUNTER → 2024-03-05 09:20 | Outpatient (BNVA) | payer MEDICARE, OTHER, SELFPAY | PROVIDERS: PCP Internal Medicine; Visit Provider Hospitalist | DX: J41.0 Simple chronic bronchitis (principal); Z23 Encounter for immunization | CPT/HCPCS: 90471; 90677; 99211 ==

== ENCOUNTER 2024-03-15 10:36 | Outpatient (AMB) | payer MEDICARE, OTHER, SELFPAY ==
--- NOTE | 2024-03-15 10:48 | A.OFFVIS_ITS ---
Intake Visit Reasons: 6 month follow up Intake Note: Patient is present recurrent uti Urology Medication: Estradiol Cream Antibiotic Allergy: Levofloxacin, Sulfa, Tetracycline, clarithromycin,cipro Blood Thinner: Apixaban (Eliquis) PVR: 46ml's Candy Packer Required: No Accompanied by: Self / Same As Patient Allergies naproxen [From NAPROSYN] Allergy (Severe, Verified 03/15/24 11:14) sensitivity niacin [From NIASPAN EXTENDED-RELEASE] Allergy (Severe, Verified 03/15/24 11:14) Rash acetaminophen [From Percocet] Allergy (Mild, Verified 03/15/24 11:14) Itching clarithromycin [From BIAXIN] Allergy (Mild, Verified 03/15/24 11:14) sensitivity codeine [CODEINE] Allergy (Mild, Verified 03/15/24 11:14) Itching esomeprazole [From Nexium] Allergy (Mild, Verified 03/15/24 11:14) Hives fluconazole [From DIFLUCAN] Allergy (Mild, Verified 03/15/24 11:14) sensitivity gatifloxacin [From TEQUIN] Allergy (Mild, Verified 03/15/24 11:14) sensitivity hydrocodone [From Vicodin] Allergy (Mild, Verified 03/15/24 11:14) Rash levofloxacin [From Levaquin] Allergy (Mild, Verified 03/15/24 11:14) sensitivity oxycodone [From Percocet] Allergy (Mild, Verified 03/15/24 11:14) Itching quinidine [QUINIDINE] Allergy (Mild, Verified 03/15/24 11:14) sensitivity Sulfa (Sulfonamide Antibiotics) [SULFA (SULFONAMIDE ANTIBIOTICS)] Allergy (Mild, Verified 03/15/24 11:14) Rash terfenadine [From SELDANE] Allergy (Mild, Verified 03/15/24 11:14) sensitivity tetracycline [TETRACYCLINE] Allergy (Mild, Verified 03/15/24 11:14) sensitivity tramadol [From Ultracet] Allergy (Mild, Verified 03/15/24 11:14) Rash cefaclor [From CECLOR] Adverse Reaction (Severe, Verified 03/15/24 11:14) Unknown cefdinir Adverse Reaction (Intermediate, Verified 03/15/24 11:14) Stomach Upset montelukast [From Singulair] Adverse Reaction (Mild, Verified 03/15/24 11:14) Headache topiramate [From TOPAMAX] Adverse Reaction (Mild, Verified 03/15/24 11:14) Stomach Upset Medication List - Last Reconciled 03/15/24 by DEMI Washington- albuterol sulfate 90 mcg/actuation 2 inhalations inhalation Q6H PRN 30 days atorvastatin 40 mg PO DAILY cholecalciferol (vitamin D3) 50 mcg PO DAILY coenzyme Q10 (Co Q-10) 10 mg PO TID Eliquis (apixaban) 5 mg PO BID 90 days NS estradiol 0.01%(0.1mg/gram) (Estrace) pea size amount to urethra vaginally daily flash glucose scanning reader ([employer] Waldemar 14 Day [place]) As directed flash glucose sensor ([employer] Waldemar 14 Day Sensor kit) As directed insulin syringe-needle U-100 Use daily with Tymlos Lexapro (escitalopram oxalate) 10 mg PO DAILY NS lidocaine 4% (Lidocaine Pain Relief) 1 patch See Protocol transdermal DAILY montelukast (Singulair) 10 mg PO BEDTIME 30 days nebulizers As directed neomycin-polymyxin B-dexameth 3.5mg/mL-10,000 unit/mL-0.1 % 1 drp ophthalmic (eye) Q6H promethazine 12.5 mg PO Q6H PRN NS sennosides-docusate sodium 8.6-50 mg (Senna with Docusate Sodium) 2 tab-caps (2 x 8.6-50 mg) PO BEDTIME 30 days tramadol 50 mg PO BID PRN 21 days vitamin B complex (B Complex-Vitamin B12 tablet) 1 tab PO DAILY HPI Comments Details: Adelina is a pleasant 78 year old female patient of Dr. Potter. She has a PMH of back pain, recurrent UTIs, hyperlipidemia, CVA, obstructive sleep apnea, arthritis, anxiety, cerebral microvascular disease, atherosclerotic cardiovascular disease, overactive bladder, microscopic hematuria, osteoporosis, renal cysts, mycobacteria disease, GERD, COPD, and pulmonary nodules. She presents to the office today for a follow up of her recent urinary tract infection. In discussion with the patient today she reports since her last office visit here over a year ago she has since suffered another acute stroke. She discusses having experienced UTI like symptoms approximately 2 months ago at which time she called her PCP and was treated with Macrobid. She reports since then she has had no UTI like symptoms. She currently denies any bothersome urinary issues or concerns. In office urinalysis results reviewed with the patient today. PVR 46 mL. In review of patient's chart it appears a renal ultrasound was ordered approximately 2 months ago. These results were reviewed with the patient today. Right kidney with no micheal hydronephrosis. There is an exophytic cyst within the interpolar region measuring approximately 1.1 cm there has been no significant change in size of the cyst when compared to previous imaging. Left kidney with no hydronephrosis, lesions, and or nephrolithiasis. Of note, patient underwent in office cystoscopy with Dr. Gregorio 12/26 that noted retracted urethra with atrophy at which time urethral was dilated with blue dilators and she was encouraged to maintain use of Estrace cream. In discussion with the patient today she reports having since stopped her Estrace cream as she has for gotten to use it. In office urinalysis results reviewed with the patient today. PVR 46 mL. Discussed the importance of avoiding triggers, avoiding constipation, and consuming adequate amount of daily fluid intake. She otherwise offers no other issues or concerns at this time. [facility] Medical History (Updated 03/15/24 @ 18:44 [facility] Renal cyst Back pain Dense breast Breast cancer screening by mammogram Acute bronchitis Recurrent UTI Ocular migraine Hyperlipidemia History of CVA (cerebrovascular accident) (~2020) Tubular adenoma of colon (~2005) SERG (obstructive sleep apnea) Nasal vestibulitis Degeneration, intervertebral disc, cervical Dry eye PONV (postoperative nausea and vomiting) Arthritis of neck Anxiety Palpitation Cerebral microvascular disease Atherosclerotic cardiovascular disease Precordial chest pain URI (upper respiratory infection) Overactive bladder Microscopic hematuria Urinary urgency Osteoporosis (~1999) Dyspnea Mycobacterial disease GERD (gastroesophageal reflux disease) Cough Pulmonary nodules COPD (chronic obstructive pulmonary disease) Surgical History History of fusion of cervical spine History of sinus surgery History of colonoscopy History of esophagogastroduodenoscopy (EGD) History of bladder suspension procedure Family History Son No problems noted. Social History Household Members: Spouse Housing: Condominium Do you presently have visiting nurse or other home services: No Alcohol intake: never Patient Tobacco Use Status: Never used Tobacco Years Smoked: parent and smoker e-Cigarette/Vaping Use: Never Used Second Hand Smoke Exposure: Yes Advance Directives Date on File: 08/16/20 service: No Current occupational status: retired Current occupation: right hand Cognitive needs: No Hearing needs: Yes (hearing aides) Vision needs: Yes (Glasses) Review of Systems Const Reports as per [facility] Eyes Reports no additional complaints ENT Reports no additional complaints Card Reports as per [facility] Resp Reports as per [facility] GI Reports as per HPI Reports as per [facility] Musc Reports as per [facility] Neuro Reports as per [facility] Psych Reports no additional complaints Endo Reports no additional complaints Jose Alejandro/Lymph Reports no additional complaints Aller/Immun Reports no additional complaints Physical Exam Const General: cooperative, comfortable, no acute distress, well developed, alert and awake Nutritional Appearance: thin Orientation/consciousness: patient oriented x3 Limitations: no limitations HEENT Head: Yes normal to inspection, Yes normocephalic and Yes atraumatic Ears: hearing grossly normal bilaterally Eyes General: appearance normal, both eyes and all related structures Neck Neck: Yes normal visual inspection and Yes trachea midline Chest Chest palpation & inspection: normal inspection of the chest Resp Effort & Inspection: normal respiratory effort and able to speak in complete sentences Cardio Rate: regular rate GI Inspection: Yes normal to inspection General: Yes no CVA tenderness Back/Spine/Pelvis Back: no CVA tenderness Skin General skin exam: no rashes or lesions noted Neuro General: patient oriented x3 Extrem General: Yes normal to inspection Psych Appearance: grossly normal and well kempt Mental Status: mental status grossly normal Speech and movement: Normal speech and movement present and Clear speech present Affect: normal affect Attitude: cooperative Thought process: Normal thought process present Thought content: Normal thought content present Insight: Fair insight present (Psych) Judgement: Fair judgement present (Psych) Office Procedures Post Void Residual Post Residual Void Post Void Residual (PVR): 46 [id number] Void Residual by ultrasound Results AMB Urinalysis, Automated UA Leukoctes 0 Marisabel/uL Last Edit by [employer] on 03/15/24 11:12 UA Nitrite Negative Last Edit by [employer] on 03/15/24 11:12 UA Urobilinogen 0.2 mg/dL Last Edit by [employer] on 03/15/24 11:12 UA Protein 0 mg/dL Last Edit by Willa Wen on 03/15/24 11:12 UA pH 6.0 Last Edit by Willa Wen on 03/15/24 11:12 UA Blood 25 Dl/uL Last Edit by Willa Wen on 03/15/24 11:12 UA Specific [place] 1.015 Last Edit by Willa Wen on 03/15/24 11:12 UA Ketone Negative Last Edit by Willa Wen on 03/15/24 11:12 UA Bilirubin 0 mg/dL Last Edit by Willa Wen on 03/15/24 11:12 UA Glucose 0 mg/dL Last Edit by Willa Wen on 03/15/24 11:12 Results Reviewed Results Reviewed: Laboratory Last Values Urine pH (Auto) 6.0 03/15/24 10:53 Specific [place] (Auto) 1.015 03/15/24 10:53 Urine Protein (Auto) 0 mg/dL 03/15/24 10:53 Glucose (UA)(Auto) 0 mg/dL 03/15/24 10:53 Urine Ketones (Auto) Negative 03/15/24 10:53 Urine Blood (Auto) 25 Dl/uL 03/15/24 10:53 Urine Nitrite (Auto) Negative 03/15/24 10:53 Urine Bilirubin (Auto) 0 mg/dL 03/15/24 10:53 Urine Urobilinogen (Auto) 0.2 mg/dL 03/15/24 10:53 Leukocyte Esterase (Auto) 0 Marisabel/uL 03/15/24 10:53 Date of Service: 01/16/24 Procedure(s): US renal BI FINDINGS: RIGHT KIDNEY: 9.7 x 3.5 x 5.0 cm (SAG x AP x TRV). The kidney is normal in size, contour, and echogenicity. Renal cortical thickness is normal. No calculi. There is mild fullness of the renal pelvis. No micheal hydronephrosis. There is an exophytic cyst within the interpolar region measuring 1.1 x 0.3 x 1.0 cm. There has been no significant change in size of the cyst compared with most recent ultrasound exam. LEFT KIDNEY: 9.2 x 3.0 x 4.6 cm (SAG x AP x TRV). The kidney is normal in size, contour, and echogenicity. Renal cortical thickness is normal. No calculi or focal parenchymal lesions. No hydronephrosis. IMPRESSION: Right kidney: There is mild fullness of the renal pelvis. No micheal hydronephrosis. There is a small, 1.1 cm exophytic cyst within the interpolar region. Left kidney: Unremarkable. Assessment & Plan Assessment & Plan (1) Overactive bladder: Code(s): N32.81 - Overactive bladder Category: Medical (2) Recurrent UTI: Code(s): N39.0 - Urinary tract infection, site not specified Category: Medical (3) Renal cyst: Code(s): N28.1 - Cyst of kidney, acquired Category: Medical Plan In office urinalysis results reviewed with the patient today. PVR 46 mL. Discussed importance of taking medications as prescribed; continue Estrace cream as prescribed. Recent renal imaging results reviewed with the patient today; as noted above; will continue with surveillance monitoring of renal cysts. Patient currently denies any bothersome urinary issues or concerns. She currently denies any UTI like symptoms. She reports be happy with current voiding parameters. Discussed UTI prevention with D mannose supplement, vitamin-C, increasing fluid intake, behavioral therapy with timed voiding, perineal hygiene and postcoital voiding, and management of constipation with stool softeners and increased fiber intake. Follow-up in 6 months with PVR; or sooner with any issues, concerns, and or questions. Orders: Orders AMB Urinalysis Automated Today Z13.9 - Encounter for screening, unspecified AMB Post Void Residual by ultrasound Today N32.81 - Overactive bladder Patient Instructions: The patient had an opportunity to ask questions regarding the treatment plan. All questions were answered. Physical exam, labs, and imaging were discussed and reviewed in detail. As well as risks, benefits, and discussion of treatment choices. No major barriers to understanding were identified. The patient expressed understanding and agreement with the above treatment plan. The patient was made aware they should contact our office by phone for worsening of their current condition, the appearance of new symptoms, or with any questions or concerns. Compliance is encouraged with any medications and follow up testing that is ordered. It is a privilege to be allowed the opportunity to participate in? your urological care.? Again, if you have any questions or concerns If you have any questions or concerns please do not hesitate to contact me. The office is [phone]. This note is constructed using voice recognition software. While every effort has been made to ensure accuracy tunnel worker errors may have been included. Yours sincerely, MERLIN [place] Coding Level of Care Code Est Pt Level 3 (27808) Diagnoses Overactive bladder N32.81 Recurrent UTI N39.0 Renal cyst N28.1 CPT Codes Post Residual Void - PVR CPT Code: 13268-Tzqf Void Residual by ultrasound ([id number])
== END 2024-03-15 11:35 | disposition home or self-care (01) ==
PROVIDERS: PCP Internal Medicine; Visit Provider Nurse Practitioner Family
DX: N32.81 Overactive bladder (principal); N39.0 Urinary tract infection, site not specified; N28.1 Cyst of kidney, acquired; Z13.9 Encounter for screening, unspecified
CPT/HCPCS: 99213

== ENCOUNTER → 2024-03-15 10:36 | Outpatient (BNVA) | payer MEDICARE, OTHER, SELFPAY | PROVIDERS: PCP Internal Medicine; Visit Provider Nurse Practitioner Family | DX: N32.81 Overactive bladder (principal); N39.0 Urinary tract infection, site not specified; N28.1 Cyst of kidney, acquired | CPT/HCPCS: 51798; 81003; 99212 ==

== ENCOUNTER 2024-03-23 11:50 | Outpatient (AMB) | payer MEDICARE, OTHER, SELFPAY ==
[2024-03-23 11:53] VITALS: BP 140/72; PULSE 69; O2SAT 98; BMI 20.5
--- NOTE | 2024-03-23 11:53 | A.OFFPC_ITS ---
Vital Signs 03/23/24 11:53 Height 5 ft Weight 105 lb BMI 20.5 BP 140/72 H Blood Pressure Location Lt brachial Position Sitting Pulse 69 Pulse Source Pulse Oximeter Pulse Oximetry (%) 98 Oxygen Delivery Method Room Air Intake Visit Reasons: Right shoulder and ankle pain after fall Allergies naproxen [From NAPROSYN] Allergy (Severe, Verified 03/23/24 11:54) sensitivity niacin [From NIASPAN EXTENDED-RELEASE] Allergy (Severe, Verified 03/23/24 11:54) Rash acetaminophen [From Percocet] Allergy (Mild, Verified 03/23/24 11:54) Itching clarithromycin [From BIAXIN] Allergy (Mild, Verified 03/23/24 11:54) sensitivity codeine [CODEINE] Allergy (Mild, Verified 03/23/24 11:54) Itching esomeprazole [From Nexium] Allergy (Mild, Verified 03/23/24 11:54) Hives fluconazole [From DIFLUCAN] Allergy (Mild, Verified 03/23/24 11:54) sensitivity gatifloxacin [From TEQUIN] Allergy (Mild, Verified 03/23/24 11:54) sensitivity hydrocodone [From Vicodin] Allergy (Mild, Verified 03/23/24 11:54) Rash levofloxacin [From Levaquin] Allergy (Mild, Verified 03/23/24 11:54) sensitivity oxycodone [From Percocet] Allergy (Mild, Verified 03/23/24 11:54) Itching quinidine [QUINIDINE] Allergy (Mild, Verified 03/23/24 11:54) sensitivity Sulfa (Sulfonamide Antibiotics) [SULFA (SULFONAMIDE ANTIBIOTICS)] Allergy (Mild, Verified 03/23/24 11:54) Rash terfenadine [From SELDANE] Allergy (Mild, Verified 03/23/24 11:54) sensitivity tetracycline [TETRACYCLINE] Allergy (Mild, Verified 03/23/24 11:54) sensitivity tramadol [From Ultracet] Allergy (Mild, Verified 03/23/24 11:54) Rash cefaclor [From CECLOR] Adverse Reaction (Severe, Verified 03/23/24 11:54) Unknown cefdinir Adverse Reaction (Intermediate, Verified 03/23/24 11:54) Stomach Upset montelukast [From Singulair] Adverse Reaction (Mild, Verified 03/23/24 11:54) Headache topiramate [From TOPAMAX] Adverse Reaction (Mild, Verified 03/23/24 11:54) Stomach Upset Tobacco use date assessed: 01/19/24 Fall risk assessment: No Falls in past year Last assessed Fall Risk: 03/23/24 Dental Screening Dental Screen Date: 02/12/24 HPI Right shoulder and ankle pain after fall HPI Details 78-year-old female with multiple medical problems from cervical disc degenerative disc problems osteoporosis GERD COPD history of CVA hypercholesterolemia generalized anxiety disorder coming in for follow-up. Last seen for UTI and was advised to follow-up with urology. Mammogram is up-to-date bone density was done in October 2023 for osteoporosis and has been placed on Tymlos and B is being followed up by Rheumatology review of the notes has seen Urology 03/15/2024 placed on estradiol cream placed on edema nose and vitamin-C. For the COPD follows up with Pulmonary continuing with inhalers albuterol and Symbicort.. last week, coming down and fell tripped , deny cp, no syncope , no head trauma [facility] Medical History (Updated 03/23/24 @ 12:23 by Abby Potter MD) Renal cyst Back pain Dense breast Breast cancer screening by mammogram Acute bronchitis Recurrent UTI Ocular migraine Hyperlipidemia History of CVA (cerebrovascular accident) (~2020) Tubular adenoma of colon (~2005) SERG (obstructive sleep apnea) Nasal vestibulitis Degeneration, intervertebral disc, cervical Dry eye PONV (postoperative nausea and vomiting) Arthritis of neck Anxiety Palpitation Cerebral microvascular disease Atherosclerotic cardiovascular disease Precordial chest pain URI (upper respiratory infection) Overactive bladder Microscopic hematuria Urinary urgency Osteoporosis (~1999) Dyspnea Mycobacterial disease GERD (gastroesophageal reflux disease) Cough Pulmonary nodules COPD (chronic obstructive pulmonary disease) Surgical History History of fusion of cervical spine History of sinus surgery History of colonoscopy History of esophagogastroduodenoscopy (EGD) History of bladder suspension procedure Family History Son No problems noted. Social History Household Members: Spouse Housing: Condominium Do you presently have visiting nurse or other home services: No Alcohol intake: never Patient Tobacco Use Status: Never used Tobacco Years Smoked: parent and smoker e-Cigarette/Vaping Use: Never Used Second Hand Smoke Exposure: Yes Advance Directives Date on File: 08/16/20 service: No Current occupational status: retired Current occupation: right hand Cognitive needs: No Hearing needs: Yes (hearing aides) Vision needs: Yes (Glasses) Questionnaire PHQ-9 Over the last 2 weeks, how often have you been bothered by any of the following problems? 1. Little interest or pleasure in doing things: several days 2. Feeling down, depressed, or hopeless: several days 3. Trouble falling or staying asleep, or sleeping too much: not at all 4. Feeling tired or having little energy: not at all 5. Poor appetite or overeating: not at all 6. Feeling bad about yourself - or that you are a failure or have let yourself or your family down: not at all 7. Trouble concentrating on things, such as reading the newspaper or watching television: not at all 8. Moving or speaking so slowly that other people could have noticed. Or the opposite - being so fidgety or restless that you have been moving around a lot more than usual: not at all 9. Thoughts that you would be better off or of hurting yourself in some way: not at all Total score: 2 Depression Screening Interpretation: Negative Depression Screening Done: Yes Source: Developed by Drs. Augie Espinoza, Yue Griffin, Michael Gallo and colleagues, with an educational aniya from [employer]. Thrive Questionnaire Date Thrive assessed: 01/02/24 AUDIT C Alcohol Use Questionnaire (AUDIT-C) 1. How often do you have a drink containing alcohol?: Never Total Score: 0 SAVANNAH-7 AMB Questionnaire SAVANNAH-7 Date SAVANNAH - 7 assessed: 02/12/24 Source: Developed by Drs. Augie Espinoza, Yue Griffin, Michael Gallo and colleagues, with an educational aniya from [employer]. Physical exam (Primary Care) Vital Signs: Last Vital Signs Pulse 69 03/23/24 11:53 BP 140/72 H 03/23/24 11:53 Pulse Ox 98 03/23/24 11:53 Oxygen Delivery Method Room Air 03/23/24 11:53 BMI result Body Mass Index 20.5 Tobacco/Smoking Status: Tobacco use Status Tobacco use date assessed 01/19/24 03/23/24 12:00 Patient Tobacco Use Status Never used Tobacco 03/23/24 12:00 e-Cigarette/Vaping Use Never Used 03/23/24 12:00 PHQ-9: PHQ-9 Score PHQ-9: Total score 2 03/23/24 12:00 Depression Screening Interpretation: Negative Thrive Assessment: Date of Thrive Assessment Date Thrive assessed 01/02/24 03/23/24 12:00 Const General: alert; No acute distress Eyes Conjunctivae: conjunctivae normal Resp Auscultation: clear to auscultation bilaterally Cardio Rate: regular rate Rhythm: regular rhythm GI Inspection: Yes normal to inspection Extrem Other: Under complete range of motion good passive movement to elevate the right arm from 110-180 degrees but has some pain and weakness on elevation limited to 110 degrees no swelling or redness noted patient also has pain on the lateral inferior ankle no redness or swelling noted. Pedal pulses are go General: No edema Assessment and Plan Assessment & Plan (1) Overactive bladder: Code(s): N32.81 - Overactive bladder Plan: Patient follows up with urology on Estrace cream (2) COPD (chronic obstructive pulmonary disease): Code(s): J44.9 - Chronic obstructive pulmonary disease, unspecified Qualifiers: COPD type: chronic bronchitis Chronic bronchitis type: simple Qualified Code(s): J41.0 - Simple chronic bronchitis Plan: Patient follows up with Pulmonary on Singulair and albuterol (3) Fall: Comment: january 15, 2023 Code(s): W19.XXXA - Unspecified fall, initial encounter Plan: Discussed on gait instability on the need to be careful. (4) Shoulder pain, right: Code(s): M25.511 - Pain in right shoulder (5) Ankle pain, right: Code(s): M25.571 - Pain in right ankle and joints of right foot Orders: Orders XR ankle RT 2V Today M25.571 - Pain in right ankle and joints of right foot XR shoulder RT min 2V Today M25.511 - Pain in right shoulder PT Evaluation and Treatment Today M25.511 - Pain in right shoulder PT Evaluation and Treatment Today M25.571 - Pain in right ankle and joints of right foot Coding Level of Care Code Est Pt Level 3 (54665) Diagnoses Overactive bladder N32.81 Simple chronic bronchitis J41.0 COPD type: chronic bronchitis Chronic bronchitis type: simple Fall W19.XXXA Shoulder pain, right M25.511 Ankle pain, right M25.571 Additional Codes PHQ-9 - 43703 - PHQ-9 Billing: ([id number])
== END 2024-03-23 12:28 | disposition home or self-care (01) ==
LOC: HO.HMGH 11:50
PROVIDERS: PCP Internal Medicine; Visit Provider Internal Medicine
DX: N32.81 Overactive bladder (principal); J41.0 Simple chronic bronchitis; W19.XXXA Unspecified fall, initial encounter; M25.511 Pain in right shoulder; M25.571 Pain in right ankle and joints of right foot
CPT/HCPCS: 99213

== ENCOUNTER 2024-03-24 08:39 | Outpatient (REF) | payer MEDICARE, OTHER, SELFPAY ==
--- NOTE | ~2024-03-24 | XR_ITS ---
EXAMINATION: XR SHOULDER, RIGHT XR ANKLE, RIGHT CLINICAL INDICATION: Pain in right ankle and joints of right foot. Patient states fall over a year ago and then again recently. Pain laterally in right ankle. COMPARISON: None available. TECHNIQUE: Four views of the right shoulder. 3 views of the right ankle. FINDINGS: RIGHT ANKLE: Calcifications along the anterior aspect of the ankle characteristic of vascular calcifications. Bones are diffusely demineralized. Corticated ossicle along the dorsal aspect of the talonavicular joint. Degenerative changes with hypertrophic change on limited views of the tarsometatarsal joints. Ankle mortise is maintained. RIGHT SHOULDER: Dextroscoliosis with degenerative change on limited images of the upper thoracic spine. Bones are diffusely demineralized. Advanced degenerative changes in the acromioclavicular joint with multiple faint calcifications along the superior aspect of the joint. Glenohumeral alignment preserved. Multiple calcifications in the soft tissues adjacent to the greater tuberosity/humeral head. Faint calcifications along the glenohumeral joint. Degenerative changes in the glenoid with subchondral sclerosis and cysts. XR/XR ankle RT min 3V IMPRESSION: 1. Advanced degenerative changes with multiple areas of soft tissue calcifications in the right shoulder as detailed above. 2. Degenerative changes right ankle. Corticated ossicle along the dorsal aspect of the talonavicular joint. CT scan or MRI should be considered for further evaluation if there is clinical concern for fracture or other underlying pathology. This study was presented today March 24, 2024 for interpretation. STAT results provided at this time as requested by referring provider.
--- NOTE | ~2024-03-24 | XR_ITS ---
EXAMINATION: XR SHOULDER, RIGHT XR ANKLE, RIGHT CLINICAL INDICATION: Pain in right ankle and joints of right foot. Patient states fall over a year ago and then again recently. Pain laterally in right ankle. COMPARISON: None available. TECHNIQUE: Four views of the right shoulder. 3 views of the right ankle. FINDINGS: RIGHT ANKLE: Calcifications along the anterior aspect of the ankle characteristic of vascular calcifications. Bones are diffusely demineralized. Corticated ossicle along the dorsal aspect of the talonavicular joint. Degenerative changes with hypertrophic change on limited views of the tarsometatarsal joints. Ankle mortise is maintained. RIGHT SHOULDER: Dextroscoliosis with degenerative change on limited images of the upper thoracic spine. Bones are diffusely demineralized. Advanced degenerative changes in the acromioclavicular joint with multiple faint calcifications along the superior aspect of the joint. Glenohumeral alignment preserved. Multiple calcifications in the soft tissues adjacent to the greater tuberosity/humeral head. Faint calcifications along the glenohumeral joint. Degenerative changes in the glenoid with subchondral sclerosis and cysts. XR/XR shoulder RT min 2V IMPRESSION: 1. Advanced degenerative changes with multiple areas of soft tissue calcifications in the right shoulder as detailed above. 2. Degenerative changes right ankle. Corticated ossicle along the dorsal aspect of the talonavicular joint. CT scan or MRI should be considered for further evaluation if there is clinical concern for fracture or other underlying pathology. This study was presented today March 24, 2024 for interpretation. STAT results provided at this time as requested by referring provider.
== END 2024-03-24 08:40 | disposition home or self-care (01) ==
LOC: HO.XRAY 08:39
PROVIDERS: PCP Internal Medicine; Visit Provider Internal Medicine
DX: M25.511 Pain in right shoulder (principal); M25.571 Pain in right ankle and joints of right foot
CPT/HCPCS: 73030; 73610

== ENCOUNTER 2024-04-08 08:13 | Outpatient (AMB) | payer MEDICARE, OTHER, SELFPAY ==
--- NOTE | 2024-04-08 08:14 | MHC.OFFVIS ---
Vital Signs 04/08/24 08:15 Height 5 ft Weight 106 lb 14.787 oz BMI 20.9 BP 116/70 Blood Pressure Location Rt brachial Position Sitting Pulse 75 Pulse Source Pulse Oximeter Pulse Oximetry (%) 98 Oxygen Delivery Method Room Air Intake Visit Reasons: Osteoporosis/CM Intake Note: Reports side effects with Tymlos. She experienced feeling dizzy and passing out. She stopped this after 4 doses. Facility Maintenance Supervisor Required: No Accompanied by: Self / Same As Patient Allergies naproxen [From NAPROSYN] Allergy (Severe, Verified 04/08/24 08:26) sensitivity niacin [From NIASPAN EXTENDED-RELEASE] Allergy (Severe, Verified 04/08/24 08:26) Rash acetaminophen [From Percocet] Allergy (Mild, Verified 04/08/24 08:26) Itching clarithromycin [From BIAXIN] Allergy (Mild, Verified 04/08/24 08:26) sensitivity codeine [CODEINE] Allergy (Mild, Verified 04/08/24 08:26) Itching esomeprazole [From Nexium] Allergy (Mild, Verified 04/08/24 08:26) Hives fluconazole [From DIFLUCAN] Allergy (Mild, Verified 04/08/24 08:26) sensitivity gatifloxacin [From TEQUIN] Allergy (Mild, Verified 04/08/24 08:26) sensitivity hydrocodone [From Vicodin] Allergy (Mild, Verified 04/08/24 08:26) Rash levofloxacin [From Levaquin] Allergy (Mild, Verified 04/08/24 08:26) sensitivity oxycodone [From Percocet] Allergy (Mild, Verified 04/08/24 08:26) Itching quinidine [QUINIDINE] Allergy (Mild, Verified 04/08/24 08:26) sensitivity Sulfa (Sulfonamide Antibiotics) [SULFA (SULFONAMIDE ANTIBIOTICS)] Allergy (Mild, Verified 04/08/24 08:26) Rash terfenadine [From SELDANE] Allergy (Mild, Verified 04/08/24 08:26) sensitivity tetracycline [TETRACYCLINE] Allergy (Mild, Verified 04/08/24 08:26) sensitivity tramadol [From Ultracet] Allergy (Mild, Verified 04/08/24 08:26) Rash cefaclor [From CECLOR] Adverse Reaction (Severe, Verified 04/08/24 08:26) Unknown abaloparatide [From Tymlos] Adverse Reaction (Intermediate, Verified 04/08/24 08:32) Dizziness cefdinir Adverse Reaction (Intermediate, Verified 04/08/24 08:26) Stomach Upset montelukast [From Singulair] Adverse Reaction (Mild, Verified 04/08/24 08:26) Headache topiramate [From TOPAMAX] Adverse Reaction (Mild, Verified 04/08/24 08:26) Stomach Upset Medication List - Last Reconciled 04/08/24 by Jerilyn Byrnes MD albuterol sulfate 90 mcg/actuation 2 inhalations inhalation Q6H PRN 30 days atorvastatin 40 mg PO DAILY cholecalciferol (vitamin D3) 50 mcg PO DAILY coenzyme Q10 (Co Q-10) 10 mg PO TID Eliquis (apixaban) 5 mg PO BID 90 days NS estradiol 0.01%(0.1mg/gram) (Estrace) pea size amount to urethra vaginally daily flash glucose scanning reader (Flow[employer]ixStyle [place] 14 Day [place]) As directed flash glucose sensor (FreeStyle [place]ar 14 Day Sensor kit) As directed insulin syringe-needle U-100 Use daily with Tymlos Lexapro (escitalopram oxalate) 10 mg PO DAILY NS lidocaine 4% (Lidocaine Pain Relief) 1 patch See Protocol transdermal DAILY montelukast (Singulair) 10 mg PO BEDTIME 30 days nebulizers As directed neomycin-polymyxin B-dexameth 3.5mg/mL-10,000 unit/mL-0.1 % 1 drp ophthalmic (eye) Q6H promethazine 12.5 mg PO Q6H PRN NS sennosides-docusate sodium 8.6-50 mg (Senna with Docusate Sodium) 2 tab-caps (2 x 8.6-50 mg) PO BEDTIME 30 days tramadol 50 mg PO BID PRN 21 days vitamin B complex (B Complex-Vitamin B12 tablet) 1 tab PO DAILY HPI Comments Details: Patient is a 78yoF who presents for follow-up of osteoporosis. She was last seen 01/2024 Patient took Tymlos x4 doses and not tolerate it due to significant lightheadedness, room spinning, she passed out once. She could not tolerate it and stopped it. Here to discuss other options. PENDING SALE TO [facility] Medical History Renal cyst Back pain Dense breast Breast cancer screening by mammogram Acute bronchitis Recurrent UTI Ocular migraine Hyperlipidemia History of CVA (cerebrovascular accident) (~2020) Tubular adenoma of colon (~2005) SERG (obstructive sleep apnea) Nasal vestibulitis Degeneration, intervertebral disc, cervical Dry eye PONV (postoperative nausea and vomiting) Arthritis of neck Anxiety Palpitation Cerebral microvascular disease Atherosclerotic cardiovascular disease Precordial chest pain URI (upper respiratory infection) Overactive bladder Microscopic hematuria Urinary urgency Osteoporosis (~1999) Dyspnea Mycobacterial disease GERD (gastroesophageal reflux disease) Cough Pulmonary nodules COPD (chronic obstructive pulmonary disease) Surgical History History of fusion of cervical spine History of sinus surgery History of colonoscopy History of esophagogastroduodenoscopy (EGD) History of bladder suspension procedure Family History Son No problems noted. Social History Household Members: [facility] Do you presently have visiting nurse or other home services: No Alcohol intake: never Patient Tobacco Use Status: Never used Tobacco Years Smoked: parent and smoker e-Cigarette/Vaping Use: Never Used Second Hand Smoke Exposure: Yes Advance Directives Date on File: 08/16/20 service: No Current occupational status: retired Current occupation: right hand Cognitive needs: No Hearing needs: Yes (hearing aides) Vision needs: Yes (Glasses) Review of Systems Const Reports as per HPI Eyes Reports no additional complaints ENT Reports no additional complaints Card Reports as per HPI Resp Reports as per HPI GI Reports as per HPI Reports as per HPI Musc Reports as per HPI Neuro Reports as per HPI Psych Reports no additional complaints Endo Reports no additional complaints Jose Alejandro/Lymph Reports no additional complaints Aller/Immun Reports no additional complaints Physical Exam Vital Signs: Last Vital Signs Pulse 75 04/08/24 08:15 BP 116/70 04/08/24 08:15 Pulse Ox 98 04/08/24 08:15 Oxygen Delivery Method Room Air 04/08/24 08:15 BMI result Body Mass Index 20.9 Const General: cooperative, healthy appearing and comfortable Nutritional Appearance: average body habitus Orientation/consciousness: patient oriented x3 Limitations: no limitations HEENT Head: Yes normocephalic and Yes atraumatic Mouth: moist mucous membranes Resp Effort & Inspection: normal respiratory effort and able to speak in complete sentences Neuro General: patient oriented x3 Extrem Other: Compression glove on right wrist and hand. Limited right shoulder abduction Assessment & Plan Assessment & Plan (1) Osteoporosis: Onset Date: ~1999 Comment: Diagnosed prior to 2018 DEXA 04/2019 osteoporosis T score-2.9 left hip, L-spine T-score -2.8 Received Reclast: 12/23/2018, 01/21/2020, 01/20/2021. DEXA 09/22/2021 with T-score of-3.2 left femoral neck Prolia 01/20/2022- present after dental clearance Wrist fracture 01/23 DEXA 10/2023 osteoporosis T-score left femoral neck-4.5, left hip total -3.9, L-spine -0.9 Tymlos 03/2024 DC after 4 doses due to dizziness, room spinning, passing out Code(s): M81.0 - Age-related osteoporosis without current pathological fracture Category: Medical Qualifiers: Osteoporosis type: age-related Presence of current pathological fracture: without current pathological fracture Qualified Code(s): M81.0 - Age-related osteoporosis without current pathological fracture Plan: This is a 78-year-old female with severe osteoporosis who presents for follow-up. She has not had any fractures since last visit. Her most recent DEXA scan shows worsening osteoporosis. Patient has failed Reclast and Prolia. Patient started Tymlos after last visit and could not tolerate it due to dizziness, room spinning, passing out. She stopped it after 4 doses. We discussed alternative options. One possibility is to restart Prolia, patient did not seem to have any side effects with it, patient was on Prolia for 2 years, Prolia may take a few more years to show efficacy, another possibility is to switch to Forteo. The side effects that she had with Tymlos might not necessarily happen with Forteo I explained to patient that our most potent agent is Evenity. We discussed the slightly increased risk of cardiovascular events with Evenity. Patient already had a stroke in 2020 that was treated with tPA. However since risk of major osteoporosis fracture remains significantly elevated and may exceed her risk of stroke. I provided patient with a printout of 2 major studies comparing Romosuzumab to alendronate and to placebo. She will think about it. Follow-up in 3 months Plan I spent 30 minutes reviewing patient's chart, evaluating patient, counseling patient and documenting in the chart Coding Level of Care Code Est Pt Level 4 (75430) Diagnoses Age-related osteoporosis without current pathological fracture M81.0 Osteoporosis type: age-related Presence of current pathological fracture: without current pathological fracture
[2024-04-08 08:15] VITALS: BP 116/70; PULSE 75; O2SAT 98; BMI 20.9
== END 2024-04-08 08:52 | disposition home or self-care (01) ==
LOC: HO.RHE 08:13
PROVIDERS: PCP Internal Medicine; Visit Provider Student in an Organized Health Care Education/Training Program
DX: M81.0 Age-related osteoporosis without current pathological fracture (principal)
CPT/HCPCS: 99214

== ENCOUNTER → 2024-04-08 08:13 | Outpatient (BNVA) | payer MEDICARE, OTHER, SELFPAY | PROVIDERS: PCP Internal Medicine; Visit Provider Student in an Organized Health Care Education/Training Program | DX: M81.0 Age-related osteoporosis without current pathological fracture (principal) | CPT/HCPCS: 99212 ==

== ENCOUNTER 2024-04-28 15:38 | Outpatient (AMB) | payer MEDICARE, OTHER, SELFPAY ==
[2024-04-28 15:47] VITALS: BP 118/60; PULSE 65; O2SAT 97; BMI 20.9
--- NOTE | 2024-04-28 15:47 | MHC.PC.OV ---
Vital Signs 04/28/24 15:47 Height 5 ft Weight 107 lb BMI 20.9 BP 118/60 Blood Pressure Location Lt brachial Position Sitting Pulse 65 Pulse Source Pulse Oximeter Pulse Oximetry (%) 97 Oxygen Delivery Method Room Air Intake Visit Reasons: [facility] - Cataract Surgery Intake Note: Patient is here for a Pre-op for cataract surgery scheduled with [facility] 05/14/2024 Allergies naproxen [From NAPROSYN] Allergy (Severe, Verified 04/28/24 15:48) sensitivity niacin [From NIASPAN EXTENDED-RELEASE] Allergy (Severe, Verified 04/28/24 15:48) Rash clarithromycin [From BIAXIN] Allergy (Mild, Verified 04/28/24 15:48) sensitivity codeine [CODEINE] Allergy (Mild, Verified 04/28/24 15:48) Itching esomeprazole [From Nexium] Allergy (Mild, Verified 04/28/24 15:48) Hives fluconazole [From DIFLUCAN] Allergy (Mild, Verified 04/28/24 15:48) sensitivity gatifloxacin [From TEQUIN] Allergy (Mild, Verified 04/28/24 15:48) sensitivity hydrocodone [From Vicodin] Allergy (Mild, Verified 04/28/24 15:48) Rash levofloxacin [From Levaquin] Allergy (Mild, Verified 04/28/24 15:48) sensitivity oxycodone [From Percocet] Allergy (Mild, Verified 04/28/24 15:48) Itching quinidine [QUINIDINE] Allergy (Mild, Verified 04/28/24 15:48) sensitivity Sulfa (Sulfonamide Antibiotics) [SULFA (SULFONAMIDE ANTIBIOTICS)] Allergy (Mild, Verified 04/28/24 15:48) Rash terfenadine [From SELDANE] Allergy (Mild, Verified 04/28/24 15:48) sensitivity tetracycline [TETRACYCLINE] Allergy (Mild, Verified 04/28/24 15:48) sensitivity cefaclor [From CECLOR] Adverse Reaction (Severe, Verified 04/28/24 15:48) Unknown abaloparatide [From Tymlos] Adverse Reaction (Intermediate, Verified 04/28/24 15:48) Dizziness cefdinir Adverse Reaction (Intermediate, Verified 04/28/24 15:48) Stomach Upset montelukast [From Singulair] Adverse Reaction (Mild, Verified 04/28/24 15:48) Headache topiramate [From TOPAMAX] Adverse Reaction (Mild, Verified 04/28/24 15:48) Stomach Upset Medication List - Last Reconciled 04/28/24 by Abby Potter MD albuterol sulfate 90 mcg/actuation 2 inhalations inhalation Q6H PRN 30 days atorvastatin 40 mg PO DAILY cholecalciferol (vitamin D3) 50 mcg PO DAILY coenzyme Q10 (Co Q-10) 10 mg PO TID Eliquis (apixaban) 5 mg PO BID 90 days NS estradiol 0.01%(0.1mg/gram) (Estrace) pea size amount to urethra vaginally daily flash glucose scanning reader ([employer] Waldemar 14 Day [place]) As directed flash glucose sensor ([employer]Style Waldemar 14 Day Sensor kit) As directed insulin syringe-needle U-100 Use daily with Tymlos Lexapro (escitalopram oxalate) 10 mg PO DAILY NS lidocaine 4% (Lidocaine Pain Relief) 1 patch See Protocol transdermal DAILY nebulizers As directed promethazine 12.5 mg PO Q6H PRN NS sennosides-docusate sodium 8.6-50 mg (Senna with Docusate Sodium) 2 tab-caps (2 x 8.6-50 mg) PO BEDTIME 30 days tramadol 50 mg PO BID PRN 21 days Tobacco use date assessed: 01/19/24 Fall risk assessment: No Falls in past year Last assessed Fall Risk: 04/28/24 Dental Screening Dental Screen Date: 02/12/24 [facility] - Cataract Surgery HPI Details 78-year-old female with a history of overactive bladder COPD coming in for follow-up. Last seen in 03/22/2024 review of the notes seen in April 08 by Rheumatology for the osteoporosis Tymlos discontinued due to dizziness and passing out patient was given information about alendronate. Patient also had some x-rays done in 03/22/2024 for the shoulder showing advanced degenerative changes right shoulder right ankle.. Patient has cataract surgery pending Dr. Carranza 05/14/2024 L eye [facility] Medical History Renal cyst Back pain Dense breast Breast cancer screening by mammogram Acute bronchitis Recurrent UTI Ocular migraine Hyperlipidemia History of CVA (cerebrovascular accident) (~2020) Tubular adenoma of colon (~2005) SERG (obstructive sleep apnea) Nasal vestibulitis Degeneration, intervertebral disc, cervical Dry eye PONV (postoperative nausea and vomiting) Arthritis of neck Anxiety Palpitation Cerebral microvascular disease Atherosclerotic cardiovascular disease Precordial chest pain URI (upper respiratory infection) Overactive bladder Microscopic hematuria Urinary urgency Osteoporosis (~1999) Dyspnea Mycobacterial disease GERD (gastroesophageal reflux disease) Cough Pulmonary nodules COPD (chronic obstructive pulmonary disease) Surgical History History of fusion of cervical spine History of sinus surgery History of colonoscopy History of esophagogastroduodenoscopy (EGD) History of bladder suspension procedure Family History Son No problems noted. Social History Household Members: Spouse Housing: Condominium Do you presently have visiting nurse or other home services: No Alcohol intake: never Patient Tobacco Use Status: Never used Tobacco Years Smoked: parent and smoker e-Cigarette/Vaping Use: Never Used Second Hand Smoke Exposure: Yes Advance Directives Date on File: 08/16/20 service: No Current occupational status: retired Current occupation: right hand Cognitive needs: No Hearing needs: Yes (hearing aides) Vision needs: Yes (Glasses) Questionnaire Thrive Questionnaire Date Thrive assessed: 01/02/24 I am a: Patient What is your living situation today?: I have a steady place to live Within the past 12 months, did the food you bought not last and you didn't have the money to get more?: Never true Within the past 12 months, did you worry whether your food would run out before you got money to buy more?: Never true Do you have trouble paying for medicines?: No Do you have trouble getting transportation to medical appointments?: No Do you have trouble paying your heating and electricity bill?: No Do you have trouble taking care of your child, family member or friend?: No Do you have trouble with day-to-day activities such as bathing, preparing meals, shopping, managing finances, etc.?: No Are you currently unemployed and looking for a job?: No Are you interested in more education?: No Please select the resources that you would like help with: None Currently or been in a relationship where the following occur: No concerns reported THRIVE Score: 0 AUDIT C Alcohol Use Questionnaire (AUDIT-C) 1. How often do you have a drink containing alcohol?: Never Total Score: 0 SAVANNAH-7 AMB Questionnaire SAVANNAH-7 Date SAVANNAH - 7 assessed: 02/12/24 Source: Developed by Drs. Augie Espinoza, Yue Griffin, Michael Gallo and colleagues, with an educational aniya from [email or web address]. Review of Systems Const Denies poor appetite and Denies weakness Eyes Denies no additional complaints ENT Reports Normal hearing present, Denies dizziness, Denies nasal congestion, Denies tinnitus and Denies sore throat Card Denies chest pain, Denies syncope, Denies rapid heart rate and Denies dyspnea Resp Denies cough and Denies dyspnea GI Denies change in stool character, Reports constipation, Denies diarrhea, Denies nausea and Denies vomiting Denies urinary frequency, Denies difficulty voiding and Denies dysuria Neuro Reports Normal hearing present, Denies confusion, Denies dizziness, Denies syncope and Denies weakness Psych Denies confusion Physical exam (Primary Care) Vital Signs: Last Vital Signs Pulse 65 04/28/24 15:47 BP 118/60 04/28/24 15:47 Pulse Ox 97 04/28/24 15:47 Oxygen Delivery Method Room Air 04/28/24 15:47 BMI result Body Mass Index 20.9 Tobacco/Smoking Status: Tobacco use Status Tobacco use date assessed 01/19/24 04/28/24 15:50 Patient Tobacco Use Status Never used Tobacco 04/28/24 15:50 e-Cigarette/Vaping Use Never Used 04/28/24 15:50 Thrive Assessment: Date of Thrive Assessment Date Thrive assessed 01/02/24 04/28/24 15:50 Currently or been in a relationship where the following occur: No concerns reported Const General: No confusion Orientation/consciousness: No confusion Eyes Conjunctivae: conjunctivae normal Resp Auscultation: clear to auscultation bilaterally Cardio Rate: regular rate Rhythm: regular rhythm GI Inspection: Yes normal to inspection Neuro General: No confusion Cranial nerves: Yes Normal hearing present Extrem General: Yes normal to inspection and No edema Assessment and Plan Assessment & Plan (1) Cataract: Code(s): H26.9 - Unspecified cataract Plan: Patient has a planned surgical procedure. (2) Osteoporosis: Onset Date: ~1999 Comment: Diagnosed prior to 2018 DEXA 04/2019 osteoporosis T score-2.9 left hip, L-spine T-score -2.8 Received Reclast: 12/23/2018, 01/21/2020, 01/20/2021. DEXA 09/22/2021 with T-score of-3.2 left femoral neck Prolia 01/20/2022- present after dental clearance Wrist fracture 01/23 DEXA 10/2023 osteoporosis T-score left femoral neck-4.5, left hip total -3.9, L-spine -0.9 Tymlos 03/2024 DC after 4 doses due to dizziness, room spinning, passing out Code(s): M81.0 - Age-related osteoporosis without current pathological fracture Qualifiers: Osteoporosis type: age-related Presence of current pathological fracture: without current pathological fracture Qualified Code(s): M81.0 - Age-related osteoporosis without current pathological fracture Plan: Patient follows up with Rheumatology and has been given information about options. Has had Prolia (3) GERD (gastroesophageal reflux disease): Code(s): K21.9 - Gastro-esophageal reflux disease without esophagitis Qualifiers: Esophagitis presence: with esophagitis Esophagitis bleeding: without hemorrhage Qualified Code(s): K21.00 - Gastro-esophageal reflux disease with esophagitis, without bleeding Plan: Avoid the foods that causes that usually spicy foods, tomato products, juices, coffee, soda and foods that your sensitive to. After eating do not lie down, allow 3-4 hours before in lie down. And keep the head of bed above 30 degrees to avoid the acid from going up. (4) COPD (chronic obstructive pulmonary disease): Code(s): J44.9 - Chronic obstructive pulmonary disease, unspecified Qualifiers: COPD type: chronic bronchitis Chronic bronchitis type: simple Qualified Code(s): J41.0 - Simple chronic bronchitis Plan: Continue with inhaler as needed (5) History of CVA (cerebrovascular accident): Onset Date: ~2020 Comment: (right cerebellar hemisphere infarct - tx tPA 08/03/2021) Code(s): Z86.73 - Personal history of transient ischemic attack (TIA), and cerebral infarction without residual deficits Plan: Patient is on Eliquis 5 mg twice a day (6) Hyperlipidemia: Code(s): E78.5 - Hyperlipidemia, unspecified Plan: Avoid fried foods, chicken skin, eggs, butter margarine, pastries and meat. Be it pork or beef they have a lot of cholesterol on atorvastatin 40 mg once a day (7) Generalized anxiety disorder: Code(s): F41.1 - Generalized anxiety disorder Plan: Continue with Lexapro (8) Overactive bladder: Code(s): N32.81 - Overactive bladder Plan: Stable (9) Preop exam for internal medicine: Code(s): Z01.818 - Encounter for other preprocedural examination Plan: EKG and blood work requested. With the age patient is in the intermediate risk category for any cardiac complication. Orders: Orders Complete Blood Count Auto Diff Today Z01.818 - Encounter for other preprocedural examination ECG 12 lead EKG Today Z01.818 - Encounter for other preprocedural examination Basic Metabolic Panel Today Z01.818 - Encounter for other preprocedural examination Coding Level of Care Code Est Pt Level 4 (53621) Diagnoses Cataract H26.9 Age-related osteoporosis without current pathological fracture M81.0 Osteoporosis type: age-related Presence of current pathological fracture: without current pathological fracture Gastroesophageal reflux disease with esophagitis without hemorrhage K21.00 Esophagitis presence: with esophagitis Esophagitis bleeding: without hemorrhage Simple chronic bronchitis J41.0 COPD type: chronic bronchitis Chronic bronchitis type: simple History of CVA (cerebrovascular accident) Z86.73 Hyperlipidemia E78.5 Generalized anxiety disorder F41.1 Overactive bladder N32.81 Preop exam for internal medicine Z01.818
== END 2024-04-28 16:54 | disposition home or self-care (01) ==
LOC: HO.HMGH 15:38
PROVIDERS: PCP Internal Medicine; Visit Provider Internal Medicine
DX: H26.9 Unspecified cataract (principal); J41.0 Simple chronic bronchitis; M81.0 Age-related osteoporosis without current pathological fracture; Z01.818 Encounter for other preprocedural examination; K21.00 Gastro-esophageal reflux disease with esophagitis, without bleeding; Z86.73 Personal history of transient ischemic attack (TIA), and cerebral infarction without residual deficits; E78.5 Hyperlipidemia, unspecified; F41.1 Generalized anxiety disorder; N32.81 Overactive bladder
CPT/HCPCS: 99214

== ENCOUNTER 2024-04-29 10:04 | Outpatient (REF) | payer MEDICARE, OTHER, SELFPAY ==
--- NOTE | 2024-04-29 10:11 | ECG_ITS ---
Test Reason : PREOP Blood Pressure : / mmHG Vent. Rate : 065 BPM Atrial Rate : 065 BPM P-R Int : 154 ms QRS Dur : 086 ms QT Int : 426 ms P-R-T Axes : 007 -26 -10 degrees QTc Int : 443 ms Normal sinus rhythm Nonspecific ST and T wave abnormality Abnormal ECG When compared with ECG of 24-FEB-2024 09:23, No significant change was found Referred By: Abby Potter Electronically Signed By:ANTWAN BONILLA MD
[2024-04-29 10:20] LABS: MANUAL DIFF FLAG NO
[2024-04-29 10:38] LABS: Basophils Absolute Auto 0.1 X10*3/uL (0.0-0.2); Basophils Percent Auto 0.8 % (0-2); Eosinophils Absolute Auto 0.3 X10*3/uL (0.0-0.4); Eosinophils Percent Auto 3.5 % (0-4); Hematocrit 37.9 % (37.0-47.0); Hemoglobin 12.4 g/dl (12.0-16.0); Imm Gran Abs Auto 0.03 X10*3/uL (0.00-0.03); Imm Gran Pct Auto 0.4 % (0.0-0.4); Lymphocytes Absolute Auto 2.1 X10*3/uL (1.2-4.9); Lymphocytes Percent Auto 27.7 % (20-40); Mean Corpuscular HGB Conc 32.7 g/dl (31.0-35.0); Mean Corpuscular Hemoglobin 29.7 pg (27.0-33.0); Mean Corpuscular Volume 90.9 fL (80.0-98.0); Monocytes Absolute Auto 0.7 X10*3/uL (0.1-1.2); Monocytes Percent Auto 8.9 % (2-11); Neutrophils Absolute Auto 4.4 x10*3/uL (2.0-8.3); Neutrophils Percent Auto 58.7 % (45-73); Platelet Count 268 X10*3/uL (160-400); Red Blood Count 4.17 X10*6/uL (4.20-5.50); Red Cell Distribution Width 13.2 % (11.0-16.0); White Blood Count 7.5 X10*3/uL (4.8-10.8)
[2024-04-29 10:41] LABS: Appearance Urine Clear; Color Urine Yellow; Glucose Urine UA Negative (Negative); Leukocyte Esterase Urine Small (1+) (Negative); Nitrite Urine Negative (Negative); PH 6.5 (5.0-9.0); Specific Gravity - Urine <= 1.005 (1.005-1.025); UMIC TRIGGER UACC YES; Urine Blood Small (1+) (Negative); Urine Ketones Negative (Negative); Urine Protein Negative (Neg-Trace)
[2024-04-29 10:51] LABS: Bacteria Urine None Seen (None Seen); Hyaline Casts Urine 0-2 /LPF (0-2); RBC Urine 0-2 /HPF (0-2); Squamous Epithelial Cell Urine 0-2 /HPF (0-2); UACC Culture Trigger YES; WBC Urine 0-5 /HPF (0-5)
[2024-04-29 11:10] LABS: Anion Gap 11 (12-20); Blood Urea Nitrogen 13 mg/dL (9-16); Calcium 9.6 mg/dL (8.4-10.2); Carbon Dioxide 26 mmol/L (22-29); Chloride 107 mmol/L (96-108); Estimated Glomerular Filt Rate > 60; Glucose Random 83 mg/dL (60-115); Potassium 4.2 mmol/L (3.3-5.1); Sodium 140 mmol/L (135-145)
== END 2024-04-29 10:05 | disposition home or self-care (01) ==
LOC: HO.LAB 10:04
PROVIDERS: PCP Internal Medicine; Visit Provider Internal Medicine
DX: Z01.818 Encounter for other preprocedural examination (principal); D64.9 Anemia, unspecified; M54.50 Low back pain, unspecified; R39.15 Urgency of urination; R30.0 Dysuria; R11.0 Nausea
CPT/HCPCS: 36415; 80048; 81001; 85025; 87086; 93005

== ENCOUNTER → 2024-04-29 10:11 | Outpatient (BNV) | payer MEDICARE, OTHER, SELFPAY | PROVIDERS: PCP Internal Medicine; Visit Provider Internal Medicine Cardiovascular Disease | DX: R94.31 Abnormal electrocardiogram [ECG] [EKG] (principal); Z01.810 Encounter for preprocedural cardiovascular examination | CPT/HCPCS: 93010 ==

== ENCOUNTER 2024-05-10 09:16 | Outpatient (REF) | payer MEDICARE, OTHER, SELFPAY ==
--- NOTE | ~2024-05-10 | XR_ITS ---
EXAMINATION: XR CHEST CLINICAL INFORMATION: Bronchitis COMPARISON: Chest x-ray on 03/01/2024 TECHNIQUE: 2 views of the chest were obtained. FINDINGS: vascularity. LUNGS: Unchanged small horizontal linear atelectasis is seen in left lateral lower lung. Lungs are hyperinflated. No pneumothorax is seen. BONES: Bony skeleton is intact. There is moderate thoracic dextroscoliosis. XR/XR chest 2V IMPRESSION: 1. Unchanged horizontal linear atelectasis or fibrotic scar in left lateral lower lung. 2. Unchanged moderate thoracic dextroscoliosis.
== END 2024-05-10 09:17 | disposition home or self-care (01) ==
LOC: HO.XRAY 09:16
PROVIDERS: PCP Internal Medicine; Visit Provider Hospitalist
DX: J40 Bronchitis, not specified as acute or chronic (principal)
CPT/HCPCS: 71046

== ENCOUNTER 2024-05-13 08:14 | Outpatient (AMB) | payer MEDICARE, OTHER, SELFPAY ==
--- NOTE | 2024-05-13 08:17 | A.OFFPC_ITS ---
Vital Signs 05/13/24 08:18 Height 5 ft Weight 105 lb BMI 20.5 BP 138/72 Blood Pressure Location Lt brachial Position Sitting Pulse 77 Pulse Source Pulse Oximeter Pulse Oximetry (%) 98 Oxygen Delivery Method Room Air Intake Visit Reasons: osteoporosis Allergies naproxen [From NAPROSYN] Allergy (Severe, Verified 05/13/24 08:20) sensitivity niacin [From NIASPAN EXTENDED-RELEASE] Allergy (Severe, Verified 05/13/24 08:20) Rash clarithromycin [From BIAXIN] Allergy (Mild, Verified 05/13/24 08:20) sensitivity codeine [CODEINE] Allergy (Mild, Verified 05/13/24 08:20) Itching esomeprazole [From Nexium] Allergy (Mild, Verified 05/13/24 08:20) Hives fluconazole [From DIFLUCAN] Allergy (Mild, Verified 05/13/24 08:20) sensitivity gatifloxacin [From TEQUIN] Allergy (Mild, Verified 05/13/24 08:20) sensitivity hydrocodone [From Vicodin] Allergy (Mild, Verified 05/13/24 08:20) Rash levofloxacin [From Levaquin] Allergy (Mild, Verified 05/13/24 08:20) sensitivity oxycodone [From Percocet] Allergy (Mild, Verified 05/13/24 08:20) Itching quinidine [QUINIDINE] Allergy (Mild, Verified 05/13/24 08:20) sensitivity Sulfa (Sulfonamide Antibiotics) [SULFA (SULFONAMIDE ANTIBIOTICS)] Allergy (Mild, Verified 05/13/24 08:20) Rash terfenadine [From SELDANE] Allergy (Mild, Verified 05/13/24 08:20) sensitivity tetracycline [TETRACYCLINE] Allergy (Mild, Verified 05/13/24 08:20) sensitivity cefaclor [From CECLOR] Adverse Reaction (Severe, Verified 05/13/24 08:20) Unknown abaloparatide [From Tymlos] Adverse Reaction (Intermediate, Verified 05/13/24 08:20) Dizziness cefdinir Adverse Reaction (Intermediate, Verified 05/13/24 08:20) Stomach Upset montelukast [From Singulair] Adverse Reaction (Mild, Verified 05/13/24 08:20) Headache topiramate [From TOPAMAX] Adverse Reaction (Mild, Verified 05/13/24 08:20) Stomach Upset Medication List - Last Reconciled 05/13/24 by Abby Potter MD albuterol sulfate 90 mcg/actuation 2 inhalations inhalation Q6H PRN 30 days atorvastatin 40 mg PO DAILY azithromycin 500 mg PO DAILY 3 days benzonatate 200 mg PO BID-TID PRN cholecalciferol (vitamin D3) 50 mcg PO DAILY coenzyme Q10 (Co Q-10) 10 mg PO TID Eliquis (apixaban) 5 mg PO BID 90 days NS estradiol 0.01%(0.1mg/gram) (Estrace) pea size amount to urethra vaginally daily flash glucose scanning reader ([employer] Waldemar 14 Day [place]) As directed flash glucose sensor (FreeStyle Waldemar 14 Day Sensor kit) As directed insulin syringe-needle U-100 Use daily with Tymlos Lexapro (escitalopram oxalate) 10 mg PO DAILY NS lidocaine 4% (Lidocaine Pain Relief) 1 patch See Protocol transdermal DAILY loratadine 10 mg PO DAILY PRN nebulizers As directed promethazine 12.5 mg PO Q6H PRN NS sennosides-docusate sodium 8.6-50 mg (Senna with Docusate Sodium) 2 tab-caps (2 x 8.6-50 mg) PO BEDTIME 30 days tramadol 50 mg PO BID PRN 21 days Tobacco use date assessed: 01/19/24 Fall risk assessment: No Falls in past year Last assessed Fall Risk: 05/13/24 Dental Screening Dental Screen Date: 02/12/24 HPI osteoporosis HPI Details 78-year-old female with multiple medical problems GERD COPD cervical degenerative disc disease history of CVA hypercholesterolemia generalized anxiety disorder coming in for an acute problem last seen in April 28 2024 for a preoperative evaluation for cataract surgery. Review of the notes had some recent x-ray of the chest 05/10/2024 with linear atelectasis or fibrotic scar in the left lower lung field and moderate thoracic dextroscoliosis. tomorrow cataract surgery [facility] to [facility] and family has a cough now has a cough, no vers has post nasal drip 2 days go was started with z celio for 3 days . complains of L chest pain denies any relation to exertion denies any trauma and no bruises. Patient does have pain on palpation of that left chest. [facility] Medical History (Updated 05/13/24 @ 09:01 by Abby Potter MD) Cough Weight loss Polyarthralgia Fall Shoulder pain, right Back pain Nausea Sinus congestion Palpitation Headache, post-traumatic, acute Scalp irritation Anemia Encounter for vitamin deficiency screening Renal cyst Dense breast Breast cancer screening by mammogram Acute bronchitis Ocular migraine Hyperlipidemia History of CVA (cerebrovascular accident) (~2020) Tubular adenoma of colon (~2005) SERG (obstructive sleep apnea) Nasal vestibulitis Degeneration, intervertebral disc, cervical Dry eye PONV (postoperative nausea and vomiting) Arthritis of neck Cerebral microvascular disease Atherosclerotic cardiovascular disease Precordial chest pain URI (upper respiratory infection) Overactive bladder Microscopic hematuria Urinary urgency Osteoporosis (~1999) Mycobacterial disease GERD (gastroesophageal reflux disease) Pulmonary nodules COPD (chronic obstructive pulmonary disease) Surgical History History of fusion of cervical spine History of sinus surgery History of colonoscopy History of esophagogastroduodenoscopy (EGD) History of bladder suspension procedure Family History Son No problems noted. Social History Household Members: Spouse Housing: Condominium Do you presently have visiting nurse or other home services: No Alcohol intake: never Patient Tobacco Use Status: Never used Tobacco Years Smoked: parent and smoker e-Cigarette/Vaping Use: Never Used Second Hand Smoke Exposure: Yes Advance Directives Date on File: 08/16/20 service: No Current occupational status: retired Current occupation: right hand Cognitive needs: No Hearing needs: Yes (hearing aides) Vision needs: Yes (Glasses) Questionnaire PHQ-9 Over the last 2 weeks, how often have you been bothered by any of the following problems? 1. Little interest or pleasure in doing things: several days 2. Feeling down, depressed, or hopeless: several days 3. Trouble falling or staying asleep, or sleeping too much: not at all 4. Feeling tired or having little energy: not at all 5. Poor appetite or overeating: not at all 6. Feeling bad about yourself - or that you are a failure or have let yourself or your family down: not at all 7. Trouble concentrating on things, such as reading the newspaper or watching television: not at all 8. Moving or speaking so slowly that other people could have noticed. Or the opposite - being so fidgety or restless that you have been moving around a lot more than usual: not at all 9. Thoughts that you would be better off or of hurting yourself in some way: not at all Total score: 2 Depression Screening Interpretation: Negative Depression Screening Done: Yes Source: Developed by Drs. Augie Espinoza, Yue Griffin, Michael Gallo and colleagues, with an educational aniya from [employer]. Thrive Questionnaire Date Thrive assessed: 01/02/24 AUDIT C Alcohol Use Questionnaire (AUDIT-C) 1. How often do you have a drink containing alcohol?: Never Total Score: 0 SAVANNAH-7 AMB Questionnaire SAVANNAH-7 Date SAVANNAH - 7 assessed: 02/12/24 Source: Developed by Drs. Augie Espinoza, Yue Griffin, Michael Gallo and colleagues, with an educational aniya from [employer]. Physical exam (Primary Care) Vital Signs: Last Vital Signs Pulse 77 05/13/24 08:18 BP 138/72 05/13/24 08:18 Pulse Ox 98 05/13/24 08:18 Oxygen Delivery Method Room Air 05/13/24 08:18 BMI result Body Mass Index 20.5 Tobacco/Smoking Status: Tobacco use Status Tobacco use date assessed 01/19/24 05/13/24 08:21 Patient Tobacco Use Status Never used Tobacco 05/13/24 08:21 e-Cigarette/Vaping Use Never Used 05/13/24 08:21 PHQ-9: PHQ-9 Score PHQ-9: Total score 2 05/13/24 08:44 Depression Screening Interpretation: Negative Thrive Assessment: Date of Thrive Assessment Date Thrive assessed 01/02/24 05/13/24 08:21 Const General: alert; No acute distress Eyes Conjunctivae: conjunctivae normal Resp Auscultation: clear to auscultation bilaterally Cardio Rate: regular rate Rhythm: regular rhythm GI Inspection: Yes normal to inspection Extrem General: Yes normal to inspection and No edema Assessment and Plan Assessment & Plan (1) COPD (chronic obstructive pulmonary disease): Code(s): J44.9 - Chronic obstructive pulmonary disease, unspecified Qualifiers: COPD type: chronic bronchitis Chronic bronchitis type: simple Qualified Code(s): J41.0 - Simple chronic bronchitis Plan: Patient on albuterol (2) Generalized anxiety disorder: Code(s): F41.1 - Generalized anxiety disorder Plan: On Lexapro 10 mg once a day (3) Osteoporosis: Onset Date: ~1999 Comment: Diagnosed prior to 2018 DEXA 04/2019 osteoporosis T score-2.9 left hip, L-spine T-score -2.8 Received Reclast: 12/23/2018, 01/21/2020, 01/20/2021. DEXA 09/22/2021 with T-score of-3.2 left femoral neck Prolia 01/20/2022- present after dental clearance Wrist fracture 01/23 DEXA 10/2023 osteoporosis T-score left femoral neck-4.5, left hip total -3.9, L- spine -0.9 Tymlos 03/2024 DC after 4 doses due to dizziness, room spinning, passing out Code(s): M81.0 - Age-related osteoporosis without current pathological fracture Qualifiers: Osteoporosis type: age-related Presence of current pathological fracture: without current pathological fracture Qualified Code(s): M81.0 - Age- related osteoporosis without current pathological fracture Plan: Discussed about calcium and vitamin-D. Patient does follow-up with Rheumatology also. (4) Costochondritis: Code(s): M94.0 - Chondrocostal junction syndrome [[place]ietze] Plan: reassurance (5) Cough: Code(s): R05 - Cough Qualifiers: Cough type: chronic Qualified Code(s): R05.3 - Chronic cough Plan: Discussed with the patient that I did not see any signs of bacterial infection but in any which way the patient is on Zithromax 500 mg once a day for 3 days. Advised patient to take allergy medication Claritin once a day and did prescribe Tessalon Perles to help symptomatic treatment of the cough. Medications: New benzonatate 200 mg PO BID-TID PRN 20 caps 1RF cough R05.3 - Chronic cough loratadine 10 mg PO DAILY PRN 30 tabs 2RF allergy symptoms R05.3 - Chronic cough Coding Level of Care Code Est Pt Level 4 (69297) Diagnoses Simple chronic bronchitis J41.0 COPD type: chronic bronchitis Chronic bronchitis type: simple Generalized anxiety disorder F41.1 Age-related osteoporosis without current pathological fracture M81.0 Osteoporosis type: age-related Presence of current pathological fracture: without current pathological fracture Costochondritis M94.0 Chronic cough R05.3 Cough type: chronic Additional Codes PHQ-9 - 88492 - PHQ-9 Billing: ([id number])
[2024-05-13 08:18] VITALS: BP 138/72; PULSE 77; O2SAT 98; BMI 20.5
== END 2024-05-13 09:12 | disposition home or self-care (01) ==
PROVIDERS: PCP Internal Medicine; Visit Provider Internal Medicine
DX: J41.0 Simple chronic bronchitis (principal); F41.1 Generalized anxiety disorder; M81.0 Age-related osteoporosis without current pathological fracture; M94.0 Chondrocostal junction syndrome [Tietze]; R05.3 Chronic cough
CPT/HCPCS: 99214

== ENCOUNTER 2024-07-13 08:23 | Outpatient (AMB) | payer MEDICARE, OTHER, SELFPAY ==
[2024-07-13 08:24] VITALS: BP 130/70; PULSE 77; BMI 21.4
--- NOTE | 2024-07-13 08:24 | A.OFFVIS_ITS ---
Vital Signs 07/13/24 08:24 Height 5 ft Weight 109 lb 5.588 oz BMI 21.4 BP 130/70 Blood Pressure Location Lt brachial Position Sitting Pulse 77 Pulse Source Pulse Oximeter Intake Visit Reasons: 6 mth f/up Blindstitch Lapel Padder Required: No Accompanied by: Self / Same As Patient Allergies naproxen [From NAPROSYN] Allergy (Severe, Verified 05/13/24 08:20) sensitivity niacin [From NIASPAN EXTENDED-RELEASE] Allergy (Severe, Verified 05/13/24 08:20) Rash clarithromycin [From BIAXIN] Allergy (Mild, Verified 05/13/24 08:20) sensitivity codeine [CODEINE] Allergy (Mild, Verified 05/13/24 08:20) Itching esomeprazole [From Nexium] Allergy (Mild, Verified 05/13/24 08:20) Hives fluconazole [From DIFLUCAN] Allergy (Mild, Verified 05/13/24 08:20) sensitivity gatifloxacin [From TEQUIN] Allergy (Mild, Verified 05/13/24 08:20) sensitivity hydrocodone [From Vicodin] Allergy (Mild, Verified 05/13/24 08:20) Rash levofloxacin [From Levaquin] Allergy (Mild, Verified 05/13/24 08:20) sensitivity oxycodone [From Percocet] Allergy (Mild, Verified 05/13/24 08:20) Itching quinidine [QUINIDINE] Allergy (Mild, Verified 05/13/24 08:20) sensitivity Sulfa (Sulfonamide Antibiotics) [SULFA (SULFONAMIDE ANTIBIOTICS)] Allergy (Mild, Verified 05/13/24 08:20) Rash terfenadine [From SELDANE] Allergy (Mild, Verified 05/13/24 08:20) sensitivity tetracycline [TETRACYCLINE] Allergy (Mild, Verified 05/13/24 08:20) sensitivity cefaclor [From CECLOR] Adverse Reaction (Severe, Verified 05/13/24 08:20) Unknown abaloparatide [From Tymlos] Adverse Reaction (Intermediate, Verified 05/13/24 08:20) Dizziness cefdinir Adverse Reaction (Intermediate, Verified 05/13/24 08:20) Stomach Upset montelukast [From Singulair] Adverse Reaction (Mild, Verified 05/13/24 08:20) Headache topiramate [From TOPAMAX] Adverse Reaction (Mild, Verified 05/13/24 08:20) Stomach Upset Medication List - Last Reconciled 07/13/24 by Chris Lincoln MD albuterol sulfate 90 mcg/actuation 2 inhalations inhalation Q6H PRN 30 days atorvastatin 40 mg PO DAILY benzonatate 200 mg PO BID-TID PRN cholecalciferol (vitamin D3) TAKE 1 CAPSULE BY MOUTH DAILY coenzyme Q10 (Co Q-10) 10 mg PO TID Eliquis (apixaban) 5 mg PO BID 90 days NS estradiol 0.01%(0.1mg/gram) (Estrace) pea size amount to urethra vaginally daily flash glucose scanning reader ([employer]Style [place] 14 Day [place]) As directed flash glucose sensor ([employer] [place]ar 14 Day Sensor kit) As directed insulin syringe-needle U-100 Use daily with Tymlos Lexapro (escitalopram oxalate) 10 mg PO DAILY NS lidocaine 4% (Lidocaine Pain Relief) 1 patch See Protocol transdermal DAILY loratadine 10 mg PO DAILY PRN nebulizers As directed promethazine 12.5 mg PO Q6H PRN NS sennosides-docusate sodium 8.6-50 mg (Senna with Docusate Sodium) 2 tab-caps (2 x 8.6-50 mg) PO BEDTIME 30 days tramadol 50 mg PO BID PRN 21 days HPI Comments Details: Adelina returns for follow up regarding stroke/PFO. Overall, generally feels about the same as before. She states that she feels cold all the time. One episode of right upper quadrant pain, nonexertional and she still has some nonspecific discomfort. When she goes up flights of stairs, some shortness of breath but just about the same as before. [facility] Medical History (Updated 05/13/24 @ 09:01 by Abby Potter MD) Cough Weight loss Polyarthralgia Fall Shoulder pain, right Back pain Nausea Sinus congestion Palpitation Headache, post-traumatic, acute Scalp irritation Anemia Encounter for vitamin deficiency screening Renal cyst Dense breast Breast cancer screening by mammogram Acute bronchitis Ocular migraine Hyperlipidemia History of CVA (cerebrovascular accident) (~2020) Tubular adenoma of colon (~2005) SERG (obstructive sleep apnea) Nasal vestibulitis Degeneration, intervertebral disc, cervical Dry eye PONV (postoperative nausea and vomiting) Arthritis of neck Cerebral microvascular disease Atherosclerotic cardiovascular disease Precordial chest pain URI (upper respiratory infection) Overactive bladder Microscopic hematuria Urinary urgency Osteoporosis (~2000) Mycobacterial disease GERD (gastroesophageal reflux disease) Pulmonary nodules COPD (chronic obstructive pulmonary disease) Surgical History History of fusion of cervical spine History of sinus surgery History of colonoscopy History of esophagogastroduodenoscopy (EGD) History of bladder suspension procedure Family History Son No problems noted. Social History Household Members: Spouse Housing: Condominium Do you presently have visiting nurse or other home services: No Alcohol intake: never Patient Tobacco Use Status: Never used Tobacco Years Smoked: parent and smoker e-Cigarette/Vaping Use: Never Used Second Hand Smoke Exposure: Yes Advance Directives Date on File: 08/16/20 service: No Current occupational status: retired Current occupation: right hand Cognitive needs: No Hearing needs: Yes (hearing aides) Vision needs: Yes (Glasses) Review of Systems Const Denies chills, Denies fatigue, Denies fever(s), Denies frequent falls, Denies weakness, Denies weight gain and Denies weight loss ENT Denies dizziness Card Denies chest pain, Denies leg edema, Denies lightheadedness, Denies palpitations, Denies dyspnea and Denies dyspnea on exertion Resp Denies cough, Denies dyspnea and Denies dyspnea on exertion GI Denies hematochezia Musc Denies abnormal gait, Denies muscle weakness, Denies numbness, Denies radiating pain into limb and Denies tingling Neuro Denies abnormal gait, Denies dizziness, Denies frequent falls, Denies numbness, Denies tingling and Denies weakness Endo Denies fatigue and Denies palpitations Physical Exam Vital Signs: Last Vital Signs Pulse 77 07/13/24 08:24 BP 130/70 07/13/24 08:24 BMI result Body Mass Index 21.4 Const General: comfortable and no acute distress Orientation/consciousness: patient oriented x3 HEENT Other: Unremarkable Head: Yes normal to inspection Neck Neck: Yes normal visual inspection Chest Chest palpation & inspection: normal inspection of the chest Resp Auscultation: clear to auscultation bilaterally Cardio Palpation: normal PMI Heart sounds: S1 normal heart sound present, S2 normal heart sound present, no gallops, no murmurs and no rubs GI Palpation (GI): Soft to palpation Back/Spine/Pelvis Other: unremarkable Skin General skin exam: no rashes or lesions noted Neuro General: patient oriented x3 Extrem General: Yes normal to inspection Psych Mental Status: mental status grossly normal Assessment & Plan Assessment & Plan (1) Ischemic stroke: Code(s): I63.9 - Cerebral infarction, unspecified Category: Medical Plan: Cardiac studies reviewed. TTE- agitated saline contrast study positive for small PFO with [id number] shunting during Valsalva. MALA-In the 2D portion, PFO could be seen with color Doppler evidence of [id number] shunting but during saline contrast done 3x, there was no evidence of transfer bubbles from right to left side. Overall possibly small PFO with intermittent shunting but does not appear hemodynamically significant. No indication for PFO closure. She is on empiric anticoagulation for possible atrial fibrillation. (2) Atherosclerotic cardiovascular disease: Code(s): I25.10 - Atherosclerotic heart disease of [place] coronary artery without angina pectoris Category: Medical Plan: Coronary CTA from 2018-focal plaque at the mid LAD with mild narrowing; mild calcific plaque at RCA origin without any significant luminal narrowing. Myocardial perfusion imaging study from 2020 performed at [facility]-no reversible or fixed defects; exercise capacity 4.6 Mets and reached 82% of max predicted heart rate. In the last EKG, underlying sinus rhythm with subtle T inversions in the anterior leads and slightly in the inferior leads. Possibly a bit more prominent than before but she has had these in the prior EKGs too. Could indicate underlying LAD findings. Clinically, she has got no overt angina. As she is quite frail, suggestion would be to continue conservative care. If necessary, we will consider stress testing and invasive strategies. Otherwise, continue statins. Cholesterol is well controlled. Coding Level of Care Code Est Pt Level 4 (51302) Diagnoses Ischemic stroke I63.9 Atherosclerotic cardiovascular disease I25.10
== END 2024-07-13 08:48 | disposition home or self-care (01) ==
PROVIDERS: PCP Internal Medicine; Visit Provider Internal Medicine
DX: I63.9 Cerebral infarction, unspecified (principal); I25.10 Atherosclerotic heart disease of native coronary artery without angina pectoris
CPT/HCPCS: 99214

== ENCOUNTER → 2024-07-13 08:23 | Outpatient (BNVA) | payer MEDICARE, OTHER, SELFPAY | PROVIDERS: PCP Internal Medicine; Visit Provider Internal Medicine | DX: I25.10 Atherosclerotic heart disease of native coronary artery without angina pectoris (principal); I63.9 Cerebral infarction, unspecified | CPT/HCPCS: 99212 ==

== ENCOUNTER 2024-07-20 15:20 | Outpatient (REF) | payer MEDICARE, OTHER, SELFPAY ==
[2024-07-20 15:25] LABS: Appearance Urine Clear; Color Urine Yellow; Glucose Urine UA Negative (Negative); Leukocyte Esterase Urine Large (3+) (Negative); Nitrite Urine Negative (Negative); UMIC TRIGGER UACC YES; Urine Blood Moderate (2+) (Negative); Urine Ketones Negative (Negative); Urine Protein Negative (Neg-Trace)
[2024-07-20 15:28] LABS: Bacteria Urine None Seen (None Seen); Hyaline Casts Urine 0-2 /LPF (0-2); UACC Culture Trigger YES; WBC Urine >50 /HPF (0-5)
== END 2024-07-20 15:21 | disposition home or self-care (01) ==
LOC: HO.LNP 15:20
PROVIDERS: Visit Provider Internal Medicine
DX: R30.0 Dysuria (principal); N32.81 Overactive bladder
CPT/HCPCS: 81001; 87086

== ENCOUNTER → 2024-07-23 08:26 | Outpatient (BNVA) | payer MEDICARE, OTHER, SELFPAY | PROVIDERS: PCP Internal Medicine; Visit Provider Nurse Practitioner Family ==

== ENCOUNTER 2024-08-25 09:40 | Outpatient (AMB) | payer MEDICARE, OTHER, SELFPAY ==
--- NOTE | 2024-08-25 09:41 | A.OFFPC_ITS ---
Intake Visit Reasons: ? Sinus Infection Allergies naproxen [From NAPROSYN] Allergy (Severe, Verified 08/25/24 09:41) sensitivity niacin [From NIASPAN EXTENDED-RELEASE] Allergy (Severe, Verified 08/25/24 09:41) Rash clarithromycin [From BIAXIN] Allergy (Mild, Verified 08/25/24 09:41) sensitivity codeine [CODEINE] Allergy (Mild, Verified 08/25/24 09:41) Itching esomeprazole [From Nexium] Allergy (Mild, Verified 08/25/24 09:41) Hives fluconazole [From DIFLUCAN] Allergy (Mild, Verified 08/25/24 09:41) sensitivity gatifloxacin [From TEQUIN] Allergy (Mild, Verified 08/25/24 09:41) sensitivity hydrocodone [From Vicodin] Allergy (Mild, Verified 08/25/24 09:41) Rash levofloxacin [From Levaquin] Allergy (Mild, Verified 08/25/24 09:41) sensitivity oxycodone [From Percocet] Allergy (Mild, Verified 08/25/24 09:41) Itching quinidine [QUINIDINE] Allergy (Mild, Verified 08/25/24 09:41) sensitivity Sulfa (Sulfonamide Antibiotics) [SULFA (SULFONAMIDE ANTIBIOTICS)] Allergy (Mild, Verified 08/25/24 09:41) Rash terfenadine [From SELDANE] Allergy (Mild, Verified 08/25/24 09:41) sensitivity tetracycline [TETRACYCLINE] Allergy (Mild, Verified 08/25/24 09:41) sensitivity cefaclor [From CECLOR] Adverse Reaction (Severe, Verified 08/25/24 09:41) Unknown abaloparatide [From Tymlos] Adverse Reaction (Intermediate, Verified 08/25/24 09:41) Dizziness cefdinir Adverse Reaction (Intermediate, Verified 08/25/24 09:41) Stomach Upset montelukast [From Singulair] Adverse Reaction (Mild, Verified 08/25/24 09:41) Headache topiramate [From TOPAMAX] Adverse Reaction (Mild, Verified 08/25/24 09:41) Stomach Upset Tobacco use date assessed: 01/19/24 Dental Screening Dental Screen Date: 02/12/24 HPI ? Sinus Infection HPI Details 78-year-old female with multiple medical problem COPD generalized anxiety disorder coming in for an acute problem last seen in May 13 having a cough. Patient's mammogram is up-to-date bone density is up-to-date left message on the phone 14:45nose running , with yellowish discharge, , no fevers, feels run down, mucinex sinus, saline spray. Patient also notes vaginal irritation with some bumps there and would like to have gynecology scheduled. [facility] Medical History (Updated 08/25/24 @ 16:31 by Abby Potter MD) Sinus congestion Cough Weight loss Polyarthralgia Fall Shoulder pain, right Back pain Nausea Palpitation Headache, post-traumatic, acute Scalp irritation Anemia Encounter for vitamin deficiency screening Renal cyst Dense breast Breast cancer screening by mammogram Acute bronchitis Ocular migraine Hyperlipidemia History of CVA (cerebrovascular accident) (~2020) Tubular adenoma of colon (~2005) SERG (obstructive sleep apnea) Nasal vestibulitis Degeneration, intervertebral disc, cervical Dry eye PONV (postoperative nausea and vomiting) Arthritis of neck Cerebral microvascular disease Atherosclerotic cardiovascular disease Precordial chest pain URI (upper respiratory infection) Overactive bladder Microscopic hematuria Urinary urgency Osteoporosis (~1999) Mycobacterial disease GERD (gastroesophageal reflux disease) Pulmonary nodules COPD (chronic obstructive pulmonary disease) Surgical History History of fusion of cervical spine History of sinus surgery History of colonoscopy History of esophagogastroduodenoscopy (EGD) History of bladder suspension procedure Family History Son No problems noted. Social History Household Members: Spouse Housing: Condominium Do you presently have visiting nurse or other home services: No Alcohol intake: never Patient Tobacco Use Status: Never used Tobacco Tobacco use type: Cigarette Years Smoked: parent and smoker e-Cigarette/Vaping Use: Never Used Second Hand Smoke Exposure: Yes Advance Directives Date on File: 08/16/20 service: No Current occupational status: retired Current occupation: right hand Cognitive needs: No Hearing needs: Yes (hearing aides) Vision needs: Yes (Glasses) Questionnaire Thrive Questionnaire Date Thrive assessed: 01/02/24 SAVANNAH-7 AMB Questionnaire SAVANNAH-7 Date SAVANNAH - 7 assessed: 02/12/24 Source: Developed by Drs. Augie Espinoza, Yue Griffin, Michael Gallo and colleagues, with an educational aniya from [employer]. Physical exam (Primary Care) Tobacco/Smoking Status: Tobacco use Status Tobacco use date assessed 01/19/24 08/25/24 09:42 Patient Tobacco Use Status Never used Tobacco 08/25/24 09:42 Tobacco use type Cigarette 08/25/24 09:42 e-Cigarette/Vaping Use Never Used 08/25/24 09:42 Thrive Assessment: Date of Thrive Assessment Date Thrive assessed 01/02/24 08/25/24 09:42 Telehealth Telehealth Location of provider rendering services: practice address Location of patient: address on file Patient Identification confirmed using: Name, : Yes Telehealth method: voice only Patient verbally consented to treatment: Yes Patient verbally consented to billing insurance company: Yes Patient informed of any privacy concerns related to visit: Yes Minutes spent on Phone/Video with Pt.: 15 Coding Level of Care Code Tele Est Pt Level 3 (99117) Diagnoses Sinus congestion R09.81 Vaginal inclusion cyst N89.8 Assessment & Plan Assessment & Plan (1) Sinus congestion: Code(s): R09.81 - Nasal congestion Category: Medical Plan: advised to take flonase. (2) Vaginal inclusion cyst: Code(s): N89.8 - Other specified noninflammatory disorders of vagina Category: Medical Plan: Will do a referral for gynecology evaluation. Orders: Referrals INTERNATIONAL SALES REPRESENTATIVE Referral N89.8 - Other specified noninflammatory disorders of vagina Medications: New fluticasone propionate 50 mcg/actuation (Flonase Allergy Relief) administer into each nostril 2 sprays intranasal DAILY 16 grams 0RF
== END 2024-08-25 10:52 | disposition home or self-care (01) ==
LOC: HO.HMCH 09:40
PROVIDERS: PCP Internal Medicine; Visit Provider Internal Medicine
DX: R09.81 Nasal congestion (principal); N89.8 Other specified noninflammatory disorders of vagina

== ENCOUNTER → 2024-08-25 09:40 | Outpatient (BNVA) | payer MEDICARE, OTHER, SELFPAY | PROVIDERS: PCP Internal Medicine; Visit Provider Internal Medicine ==

== ENCOUNTER 2024-08-27 09:59 | Outpatient (AMB) | payer MEDICARE, OTHER, SELFPAY ==
[2024-08-27 10:16] VITALS: BP 124/60; PULSE 70; O2SAT 97; BMI 21.5
--- NOTE | 2024-08-27 10:16 | A.OFFVIS_ITS ---
Vital Signs 08/27/24 10:16 Height 5 ft Weight 110 lb BMI 21.5 BP 124/60 Blood Pressure Location Lt brachial Position Sitting Pulse 70 Pulse Source Pulse Oximeter Pulse Oximetry (%) 97 Oxygen Delivery Method Room Air Intake Visit Reasons: Dyspnea Physicist Nuclear Required: No Allergies naproxen [From NAPROSYN] Allergy (Severe, Verified 08/27/24 10:18) sensitivity niacin [From NIASPAN EXTENDED-RELEASE] Allergy (Severe, Verified 08/27/24 10:18) Rash clarithromycin [From BIAXIN] Allergy (Mild, Verified 08/27/24 10:18) sensitivity codeine [CODEINE] Allergy (Mild, Verified 08/27/24 10:18) Itching esomeprazole [From Nexium] Allergy (Mild, Verified 08/27/24 10:18) Hives fluconazole [From DIFLUCAN] Allergy (Mild, Verified 08/27/24 10:18) sensitivity gatifloxacin [From TEQUIN] Allergy (Mild, Verified 08/27/24 10:18) sensitivity hydrocodone [From Vicodin] Allergy (Mild, Verified 08/27/24 10:18) Rash levofloxacin [From Levaquin] Allergy (Mild, Verified 08/27/24 10:18) sensitivity oxycodone [From Percocet] Allergy (Mild, Verified 08/27/24 10:18) Itching quinidine [QUINIDINE] Allergy (Mild, Verified 08/27/24 10:18) sensitivity Sulfa (Sulfonamide Antibiotics) [SULFA (SULFONAMIDE ANTIBIOTICS)] Allergy (Mild, Verified 08/27/24 10:18) Rash terfenadine [From SELDANE] Allergy (Mild, Verified 08/27/24 10:18) sensitivity tetracycline [TETRACYCLINE] Allergy (Mild, Verified 08/27/24 10:18) sensitivity cefaclor [From CECLOR] Adverse Reaction (Severe, Verified 08/27/24 10:18) Unknown abaloparatide [From Tymlos] Adverse Reaction (Intermediate, Verified 08/27/24 10:18) Dizziness cefdinir Adverse Reaction (Intermediate, Verified 08/27/24 10:18) Stomach Upset montelukast [From Singulair] Adverse Reaction (Mild, Verified 08/27/24 10:18) Headache topiramate [From TOPAMAX] Adverse Reaction (Mild, Verified 08/27/24 10:18) Stomach Upset HPI Comments Details: The patient is a 78 y/o woman with pulmonary nodules, COPD and dyspnea. She did have a recent CT scan of the chest that we personally reviewed here in the office. This was with contrast. No evidence of any mediastinal structure a bnormalities. The patient did have a slight dilation of the esophagus so therefore we need to monitor closely for reflux. However her lingular nodular densities appear to be a little better to be. She still has the atelectasis to the lingula. Although her pulmonary nodules are small subcentimeter in size and will need follow-up. She is wondering about the hypodensities of the liver and spleen. These appear to be very small and likely benign. We need to continue to monitor did nodules in the low and also those findings. We did look at her CT scan of the chest in a pulmonary nodules have been stable in the level of the lingula some degree of mucous plugging. 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 In the meantime she has pulmonary nodules for next CT scan of the chest is going to be for August of this year. Will follow up with her after that. In the meantime she will continue the azithromycin and follow up with Cardiology regarding her left-sided chest discomfort. I did give her reflux diet she will continue for now to minimize her reflux symptoms. 08/21/2022 the patient is here for a pulmonary follow-up visit. Her discomfort is now subsided. She did not complete the prednisone since she was better and she does not like the adverse effects. She is it the rest meantime. The patient had a CT scan back in July demonstrating stable chronic findings. No additional testing is warranted. She did also undergo blood work which was reassuring. We did reviewed in the office. At this point the patient continues uses respiratory therapy as prescribed. 02/26/2023 the patient is here for pulmonary follow-up visit. Overall the patient is doing well. Unfortunately she had a bad fall fracturing her right wrist. She does have a cast right now. From a respiratory status the patient started coughing more. For the last few weeks. Moderate severity. She had been using the Advair just once a day. She did increase it to twice a day she is feeling better. As far as blood work her eosinophils are elevated suggesting an allergic exposure. I did recommend she continue the Advair twice a day. The patient does not need any further imaging at this time. Allergy medications she started on Jackie. Seems to be working well. She cannot use Singulair. If the symptoms worsen she will call the office otherwise I will see her in 6 months. 09/03/2023 the patient is here for a pulmonary follow-up visit. Since we last spoke the patient developed a URI. Ultimately developing significant nasal congestion and cough. Subsequently after that she became more congested. She did go to urgent care. She did have a chest x-ray which is without any acute disease. She was took [id number] medications with improvement. Overall she is feeling better. She does have the Advair inhaler although she does not use it all the time. The patient also complains of some scapular discomfort on the right side. Seems to have some pleuritic component. Appears to be more musculoskeletal. She is had significant issues with scoliosis. At this point the patient will try putting a Lidoderm patch that she does have at home. If she is no better she can always have a repeat chest x-ray. In his symptoms worsen and if not clear based on the x-ray we can consider getting another CT scan. Her last CT scan was last year fall 2021 demonstrating stability of the parenchymal changes that she is had which is reassuring. 02/25/2024 the patient is here for a pulmonary follow-up visit. Overall she has been doing okay. She has not benefitted from the Symbicort. She felt like the Advair was more effective. Although her respiratory exam is pretty good right now I do not believe that she needs any maintenance inhalers. She should have a rescue inhaler available in case she develops any chest tightness or shortness of breath. She does get short of breath with activity. [id number] severity. She complains of back pain. Her last chest x-ray demonstrates significant scoliosis. I do believe that this may be contributing to her musculoskeletal issues causing discomfort. She does take as needed Tylenol with good effect. Her last imaging study was otherwise reassuring from a pulmonary standpoint. Will go ahead and repeat her x-ray when she gets back from her trip. On the patient also complains of sinus pressure and also postnasal drip. She believes she has a component of sinusitis. She has multiple allergies. She can try taking this more course of doxycycline although if she develops any symptoms she can stop the medicine. The patient also can use a Neti bottle with distilled water to try to provide nasal rinsing. 08/27/2024 the patient is here for a pulmonary follow-up visit. She is doing well from a respiratory status. Denies any cough or wheezing. She is not taking the Singulair because of a question adverse affecting the past. She is taking Claritin with good effect. The patient did have a chest x-ray back in 05/22/2024 which I personally reviewed demonstrating no acute disease is slight scarring at the left base and some scoliosis. She is complaining of significant constipation. She was seen by her GI doctor who gave him so. It does not work she can always try [id number] MiraLax. The patient is also having left lower quadrant abdominal pain. This happened after issues a stronger laxative before. I did recommend that she should continue taking medications prescribed by her GI doctor in if the a belly pain gets worse she should call back to her GI doctor to get further imaging studies. [facility] Medical History (Updated 08/25/24 @ 16:31 by Abby Potter MD) Sinus congestion Cough Weight loss Polyarthralgia Fall Shoulder pain, right Back pain Nausea Palpitation Headache, post-traumatic, acute Scalp irritation Anemia Encounter for vitamin deficiency screening Renal cyst Dense breast Breast cancer screening by mammogram Acute bronchitis Ocular migraine Hyperlipidemia History of CVA (cerebrovascular accident) (~2020) Tubular adenoma of colon (~2005) SERG (obstructive sleep apnea) Nasal vestibulitis Degeneration, intervertebral disc, cervical Dry eye PONV (postoperative nausea and vomiting) Arthritis of neck Cerebral microvascular disease Atherosclerotic cardiovascular disease Precordial chest pain URI (upper respiratory infection) Overactive bladder Microscopic hematuria Urinary urgency Osteoporosis (~1999) Mycobacterial disease GERD (gastroesophageal reflux disease) Pulmonary nodules COPD (chronic obstructive pulmonary disease) Surgical History History of fusion of cervical spine History of sinus surgery History of colonoscopy History of esophagogastroduodenoscopy (EGD) History of bladder suspension procedure Family History Son No problems noted. Social History Household Members: Spouse Housing: Condominium Do you presently have visiting nurse or other home services: No Alcohol intake: never Patient Tobacco Use Status: Never used Tobacco Tobacco use type: Cigarette Years Smoked: parent and smoker e-Cigarette/Vaping Use: Never Used Second Hand Smoke Exposure: Yes Advance Directives Date on File: 08/16/20 service: No Current occupational status: retired Current occupation: right hand Cognitive needs: No Hearing needs: Yes (hearing aides) Vision needs: Yes (Glasses) Review of Systems Const Reports difficulty sleeping and Denies night sweats ENT Denies lip swelling, Denies sinus pain, Reports sinus pressure and Denies tongue swelling Card Denies palpitations, Denies dyspnea and Denies dyspnea on exertion Resp Reports cough, Denies pain on inspiration, Denies pain with cough, Denies dyspnea and Denies dyspnea on exertion GI Reports abdominal pain, Reports constipation and Reports GI cramping Musc Reports back pain and Reports myalgias Neuro Denies Neuro-related abnormal movements and Denies Abnormal speech present Psych Denies no additional complaints Endo Denies palpitations Jose Alejandro/Lymph Denies easy bleeding and Denies lymphadenopathy Aller/Immun Denies lip swelling and Denies tongue swelling Physical Exam Vital Signs: Last Vital Signs Pulse 70 08/27/24 10:16 BP 124/60 08/27/24 10:16 Pulse Ox 97 08/27/24 10:16 Oxygen Delivery Method Room Air 08/27/24 10:16 BMI result Body Mass Index 21.5 Const General: comfortable Eyes Conjunctivae: conjunctival abnormal bilateral pallor Neck Neck: Yes normal visual inspection, Yes full ROM and Yes no lymphadenopathy Chest Chest palpation & inspection: normal inspection of the chest Resp Effort & Inspection: normal respiratory effort Auscultation: clear to auscultation bilaterally Cardio Rate: regular rate Rhythm: regular rhythm Heart sounds: S1 normal heart sound present and S2 normal heart sound present GI Palpation (GI): Soft to palpation and Tenderness to palpation present (GI) in the LLQ Auscultation: normal bowel sounds Skin General skin exam: rashes and/or lesions noted Neuro Speech: No Abnormal speech present Extrem Right upper extremity: wrist Details: other (cast) Assessment & Plan Assessment & Plan (1) COPD (chronic obstructive pulmonary disease): Code(s): J44.9 - Chronic obstructive pulmonary disease, unspecified Category: Medical Qualifiers: COPD type: chronic bronchitis Chronic bronchitis type: simple Qualified Code(s): J41.0 - Simple chronic bronchitis (2) Cough: Code(s): R05 - Cough Category: Medical Qualifiers: Cough type: chronic Qualified Code(s): R05.3 - Chronic cough (3) Dyspnea: Code(s): R06.00 - Dyspnea, unspecified Category: Medical Qualifiers: Dyspnea type: shortness of breath Qualified Code(s): R06.02 - Shortness of breath (4) Pulmonary nodules: Code(s): R91.8 - Other nonspecific abnormal finding of lung field Category: Medical (5) Back pain: Code(s): M54.9 - Dorsalgia, unspecified Category: Medical Qualifiers: Back pain laterality: bilateral Back pain location: low back pain Ch ronicity: chronic Sciatica presence: without sciatica Qualified Code(s): M54.50 - Low back pain, unspecified; G89.29 - Other chronic pain Plan stop symbicort, minimizing steroids with the osteoporosis continue LUZ as needed continue claritin bowel regimen, if persistent abdominal pain, should call GI F/U 12 months Medications: New polyethylene glycol 3350 (Miralax) 17 grams PO DAILY 510 grams 4RF 30 days Coding Level of Care Code Est Pt Level 4 (85564) Diagnoses Simple chronic bronchitis J41.0 COPD type: chronic bronchitis Chronic bronchitis type: simple Chronic cough R05.3 Cough type: chronic Shortness of breath R06.02 Dyspnea type: shortness of breath Pulmonary nodules R91.8 Chronic bilateral low back pain without sciatica M54.50; G89.29 Back pain laterality: bilateral Back pain location: low back pain Chronicity: chronic Sciatica presence: without sciatica Time Spent (min) 16
== END 2024-08-27 10:45 | disposition home or self-care (01) ==
PROVIDERS: PCP Internal Medicine; Visit Provider Hospitalist
DX: J41.0 Simple chronic bronchitis (principal); R05.3 Chronic cough; R06.02 Shortness of breath; R91.8 Other nonspecific abnormal finding of lung field; M54.50 Low back pain, unspecified; G89.29 Other chronic pain
CPT/HCPCS: 99214

== ENCOUNTER → 2024-08-27 09:59 | Outpatient (BNVA) | payer MEDICARE, OTHER, SELFPAY | PROVIDERS: PCP Internal Medicine; Visit Provider Hospitalist | DX: J41.0 Simple chronic bronchitis (principal); R06.02 Shortness of breath; R91.8 Other nonspecific abnormal finding of lung field; M54.50 Low back pain, unspecified; G89.29 Other chronic pain | CPT/HCPCS: 99212 ==

== ENCOUNTER 2024-09-02 08:28 | Outpatient (AMB) | payer MEDICARE, OTHER, SELFPAY ==
--- NOTE | 2024-09-02 08:30 | A.OFFVIS_ITS ---
Intake Visit Reasons: 6m follow up Intake Note: Patient presents today for follow up on: recurrent uti Urology Medication: Estradiol Cream Antibiotic Allergy: Levofloxacin, Sulfa, Tetracycline, clarithromycin,cipro Blood Thinner: Apixaban (Eliquis) PVR: 0ml's Experimental Technician Required: No Accompanied by: Self / Same As Patient Allergies naproxen [From NAPROSYN] Allergy (Severe, Verified 09/02/24 09:12) sensitivity niacin [From NIASPAN EXTENDED-RELEASE] Allergy (Severe, Verified 09/02/24 09:12) Rash clarithromycin [From BIAXIN] Allergy (Mild, Verified 09/02/24 09:12) sensitivity codeine [CODEINE] Allergy (Mild, Verified 09/02/24 09:12) Itching esomeprazole [From Nexium] Allergy (Mild, Verified 09/02/24 09:12) Hives fluconazole [From DIFLUCAN] Allergy (Mild, Verified 09/02/24 09:12) sensitivity gatifloxacin [From TEQUIN] Allergy (Mild, Verified 09/02/24 09:12) sensitivity hydrocodone [From Vicodin] Allergy (Mild, Verified 09/02/24 09:12) Rash levofloxacin [From Levaquin] Allergy (Mild, Verified 09/02/24 09:12) sensitivity oxycodone [From Percocet] Allergy (Mild, Verified 09/02/24 09:12) Itching quinidine [QUINIDINE] Allergy (Mild, Verified 09/02/24 09:12) sensitivity Sulfa (Sulfonamide Antibiotics) [SULFA (SULFONAMIDE ANTIBIOTICS)] Allergy (Mild, Verified 09/02/24 09:12) Rash terfenadine [From SELDANE] Allergy (Mild, Verified 09/02/24 09:12) sensitivity tetracycline [TETRACYCLINE] Allergy (Mild, Verified 09/02/24 09:12) sensitivity cefaclor [From CECLOR] Adverse Reaction (Severe, Verified 09/02/24 09:12) Unknown abaloparatide [From Tymlos] Adverse Reaction (Intermediate, Verified 09/02/24 09:12) Dizziness cefdinir Adverse Reaction (Intermediate, Verified 09/02/24 09:12) Stomach Upset montelukast [From Singulair] Adverse Reaction (Mild, Verified 09/02/24 09:12) Headache topiramate [From TOPAMAX] Adverse Reaction (Mild, Verified 09/02/24 09:12) Stomach Upset Medication List - Last Reconciled 09/02/24 by DEMI [place]-DELFINA albuterol sulfate 90 mcg/actuation 2 inhalations inhalation Q6H PRN 30 days atorvastatin 40 mg PO DAILY benzonatate 200 mg PO BID-TID PRN cholecalciferol (vitamin D3) TAKE 1 CAPSULE BY MOUTH DAILY coenzyme Q10 (Co Q-10) 10 mg PO TID Eliquis (apixaban) 5 mg PO BID 90 days NS estradiol 0.01%(0.1mg/gram) (Estrace) pea size amount to urethra vaginally daily flash glucose scanning reader (SpootrStyle [place]ar 14 Day [place]) As directed flash glucose sensor (SpootrStyle [place]demar 14 Day Sensor kit) As directed fluticasone propionate 50 mcg/actuation (Flonase Allergy Relief) 2 sprays intranasal DAILY insulin syringe-needle U-100 Use daily with Tymlos Lexapro (escitalopram oxalate) 10 mg PO DAILY NS lidocaine 4% (Lidocaine Pain Relief) 1 patch See Protocol transdermal DAILY loratadine 10 mg PO DAILY PRN nebulizers As directed polyethylene glycol 3350 (Miralax) 17 grams PO DAILY 30 days promethazine 12.5 mg PO Q6H PRN NS sennosides-docusate sodium 8.6-50 mg (Senna with Docusate Sodium) 2 tab-caps (2 x 8.6-50 mg) PO BEDTIME 30 days tramadol 50 mg PO BID PRN 21 days HPI Comments Details: Adelina is a pleasant 78 year old female patient of Dr. Potter. She has a PMH of back pain, recurrent UTIs, hyperlipidemia, CVA, obstructive sleep apnea, arthritis, anxiety, cerebral microvascular disease, atherosclerotic cardiovascular disease, overactive bladder, microscopic hematuria, osteoporosis, renal cysts, mycobacteria disease, GERD, COPD, and pulmonary nodules. She presents to the office today for a follow up of her recurrent urinary tract infections. In discussion with the patient today she reports since her last office visit here approximately 5 months ago she has followed up with her PCP and was treated for urinary tract infection with Augmentin. In review of patient's chart it appears urine culture 07/27 noted Mixed bacterial teresa. We discussed lower urinary tract symptoms verses urinary tract infections. When asked she does report compliance with Estrace cream as prescribed. She currently denies any bothersome urinary issues or concerns. When asked she does report issues with constipation. We discussed correlation of constipation with urinary tract infections. Unable to obtain urine for urinalysis however PVR 0 mL. Previous workup has included a renal ultrasound 02/24 right kidney with no micheal hydronephrosis. There is an exophytic cyst within the interpolar region measuring approximately 1.1 cm there has been no significant change in size of the cyst when compared to previous imaging. Left kidney with no hydronephrosis, lesions, and or nephrolithiasis. Of note, patient underwent in office cystoscopy with Dr. Gregorio 12/26 that noted retracted urethra with atrophy at which time urethral was dilated with blue dilators and she was encouraged to maintain use of Estrace cream. Discussed the importance of avoiding triggers, avoiding constipation, and consuming adequate amount of daily fluid intake. She otherwise offers no other issues or concerns at this time. [facility] Medical History Sinus congestion Cough Weight loss Polyarthralgia Fall Shoulder pain, right Back pain Nausea Palpitation Headache, post-traumatic, acute Scalp irritation Anemia Encounter for vitamin deficiency screening Renal cyst Dense breast Breast cancer screening by mammogram Acute bronchitis Ocular migraine Hyperlipidemia History of CVA (cerebrovascular accident) (~2020) Tubular adenoma of colon (~2005) SERG (obstructive sleep apnea) Nasal vestibulitis Degeneration, intervertebral disc, cervical Dry eye PONV (postoperative nausea and vomiting) Arthritis of neck Cerebral microvascular disease Atherosclerotic cardiovascular disease Precordial chest pain URI (upper respiratory infection) Overactive bladder Microscopic hematuria Urinary urgency Osteoporosis (~1999) Mycobacterial disease GERD (gastroesophageal reflux disease) Pulmonary nodules COPD (chronic obstructive pulmonary disease) Surgical History History of fusion of cervical spine History of sinus surgery History of colonoscopy History of esophagogastroduodenoscopy (EGD) History of bladder suspension procedure Family History Son No problems noted. Social History Household Members: Spouse Housing: Condominium Do you presently have visiting nurse or other home services: No Alcohol intake: never Patient Tobacco Use Status: Never used Tobacco Tobacco use type: Cigarette Years Smoked: parent and smoker e-Cigarette/Vaping Use: Never Used Second Hand Smoke Exposure: Yes Advance Directives Date on File: 08/16/20 service: No Current occupational status: retired Current occupation: right hand Cognitive needs: No Hearing needs: Yes (hearing aides) Vision needs: Yes (Glasses) Review of Systems Const Reports as per HPI Eyes Reports no additional complaints ENT Reports no additional complaints Card Reports as per HPI Resp Reports as per HPI GI Reports as per HPI Reports as per HPI Musc Reports as per HPI Neuro Reports as per HPI Psych Reports no additional complaints Endo Reports no additional complaints Jose Alejandro/Lymph Reports no additional complaints Aller/Immun Reports no additional complaints Physical Exam Const General: cooperative, healthy appearing, comfortable, no acute distress, well developed, alert and awake Orientation/consciousness: patient oriented x3 Limitations: no limitations HEENT Head: Yes normal to inspection, Yes normocephalic and Yes atraumatic Ears: hearing grossly normal bilaterally Eyes General: appearance normal, both eyes and all related structures Neck Neck: Yes normal visual inspection and Yes trachea midline Chest Chest palpation & inspection: normal inspection of the chest Resp Effort & Inspection: normal respiratory effort and able to speak in complete sentences Cardio Rate: regular rate GI Inspection: Yes normal to inspection General: Yes no CVA tenderness Back/Spine/Pelvis Back: no CVA tenderness Skin General skin exam: no rashes or lesions noted Neuro General: patient oriented x3 Extrem General: Yes normal to inspection Psych Appearance: grossly normal and well kempt Mental Status: mental status grossly normal Speech and movement: Normal speech and movement present and Clear speech present Affect: normal affect Attitude: cooperative Thought process: Normal thought process present Thought content: Normal thought content present Insight: Fair insight present (Psych) Judgement: Fair judgement present (Psych) Office Procedures Post Void Residual Post Residual Void Post Void Residual (PVR): 0 [id number]-[id number] Void Residual by ultrasound Assessment & Plan Assessment & Plan (1) Overactive bladder: Code(s): N32.81 - Overactive bladder Category: Medical (2) Recurrent UTI: Code(s): N39.0 - Urinary tract infection, site not specified Category: Medical Plan Unable to obtain urine for urinalysis however PVR 0 mL. We discussed calling office with any UTI like symptoms for potential near future repeat urine culture and or microgen Continue Estrace cream as discussed and prescribed. Discussed correlation of constipation with recurrent urinary tract infections. Discussed UTI prevention with D mannose supplement, vitamin-C, increasing fluid intake, behavioral therapy with timed voiding, perineal hygiene and postcoital voiding, and management of constipation with stool softeners and increased fiber intake. She currently denies any bothersome urinary issues or concerns. She reports be happy with current voiding parameters. Follow-up in 3 months with PVR; or sooner with any issues, concerns, and or questions. Orders: Orders AMB Post Void Residual by ultrasound Today N39.0 - Urinary tract infection, site not specified Patient Instructions: The patient had an opportunity to ask questions regarding the treatment plan. All questions were answered. Physical exam, labs, and imaging were discussed and reviewed in detail. As well as risks, benefits, and discussion of treatment choices. No major barriers to understanding were identified. The patient expressed understanding and agreement with the above treatment plan. The patient was made aware they should contact our office by phone for worsening of their current condition, the appearance of new symptoms, or with any questions or concerns. Compliance is encouraged with any medications and follow up testing that is ordered. It is a privilege to be allowed the opportunity to participate in? your urological care.? Again, if you have any questions or concerns If you have any questions or concerns please do not hesitate to contact me. The office is [phone]. This note is constructed using voice recognition software. While every effort has been made to ensure accuracy refinery operator helper crude unit errors may have been included. Yours sincerely, MERLIN [place] Coding Level of Care Code Est Pt Level 3 (81399) Complex EM visit Add On G2211 Diagnoses Overactive bladder N32.81 Recurrent UTI N39.0 CPT Codes Post Residual Void - PVR CPT Code: 96237-Spkk Void Residual by ultrasound ([id number])
== END 2024-09-02 08:59 | disposition home or self-care (01) ==
LOC: HO.HUSH 08:28
PROVIDERS: PCP Internal Medicine; Visit Provider Nurse Practitioner Family
DX: N32.81 Overactive bladder (principal); N39.0 Urinary tract infection, site not specified
CPT/HCPCS: 99213; G2211

== ENCOUNTER → 2024-09-02 08:28 | Outpatient (BNVA) | payer MEDICARE, OTHER, SELFPAY | PROVIDERS: PCP Internal Medicine; Visit Provider Nurse Practitioner Family | DX: N32.81 Overactive bladder (principal); N39.0 Urinary tract infection, site not specified | CPT/HCPCS: 51798; 99212 ==

== ENCOUNTER 2024-09-03 11:20 | Outpatient (REF) | payer MEDICARE, OTHER, SELFPAY ==
[2024-09-03 11:35] LABS: Appearance Urine Turbid; Color Urine Yellow; Glucose Urine UA Negative (Negative); Leukocyte Esterase Urine Large (3+) (Negative); Nitrite Urine Negative (Negative); UMIC TRIGGER UA YES; Urine Blood Large (3+) (Negative); Urine Ketones Trace mg/dL (Negative); Urine Protein 300 (3+) mg/dL (Neg-Trace)
[2024-09-03 11:38] LABS: Bacteria Urine None Seen (None Seen); Hyaline Casts Urine 0-2 /LPF (0-2); RBC Urine >20 /HPF (0-2); Squamous Epithelial Cell Urine 0-2 /HPF (0-2); WBC Urine >50 /HPF (0-5)
== END 2024-09-03 11:21 | disposition home or self-care (01) ==
LOC: HO.LNP 11:20
PROVIDERS: Visit Provider Urology
DX: N39.0 Urinary tract infection, site not specified (principal)
CPT/HCPCS: 81001; 87086

== ENCOUNTER 2024-09-07 08:31 | Outpatient (AMB) | payer MEDICARE, OTHER, SELFPAY ==
--- NOTE | 2024-09-07 08:36 | MHC.OFFVIS ---
Vital Signs 11 08:43 Height 5 ft Weight 110 lb BMI 21.5 BP 102/60 Intake Visit Reasons: vag pearls/Referral Log Peeler: Log Peeler Present (Aracely) Allergies naproxen [From NAPROSYN] Allergy (Severe, Verified 09/07/24 08:39) sensitivity niacin [From NIASPAN EXTENDED-RELEASE] Allergy (Severe, Verified 09/07/24 08:39) Rash clarithromycin [From BIAXIN] Allergy (Mild, Verified 09/07/24 08:39) sensitivity codeine [CODEINE] Allergy (Mild, Verified 09/07/24 08:39) Itching esomeprazole [From Nexium] Allergy (Mild, Verified 09/07/24 08:39) Hives fluconazole [From DIFLUCAN] Allergy (Mild, Verified 09/07/24 08:39) sensitivity gatifloxacin [From TEQUIN] Allergy (Mild, Verified 09/07/24 08:39) sensitivity hydrocodone [From Vicodin] Allergy (Mild, Verified 09/07/24 08:39) Rash levofloxacin [From Levaquin] Allergy (Mild, Verified 09/07/24 08:39) sensitivity oxycodone [From Percocet] Allergy (Mild, Verified 09/07/24 08:39) Itching quinidine [QUINIDINE] Allergy (Mild, Verified 09/07/24 08:39) sensitivity Sulfa (Sulfonamide Antibiotics) [SULFA (SULFONAMIDE ANTIBIOTICS)] Allergy (Mild, Verified 09/07/24 08:39) Rash terfenadine [From SELDANE] Allergy (Mild, Verified 09/07/24 08:39) sensitivity tetracycline [TETRACYCLINE] Allergy (Mild, Verified 09/07/24 08:39) sensitivity cefaclor [From CECLOR] Adverse Reaction (Severe, Verified 09/07/24 08:39) Unknown abaloparatide [From Tymlos] Adverse Reaction (Intermediate, Verified 09/07/24 08:39) Dizziness cefdinir Adverse Reaction (Intermediate, Verified 09/07/24 08:39) Stomach Upset montelukast [From Singulair] Adverse Reaction (Mild, Verified 09/07/24 08:39) Headache topiramate [From TOPAMAX] Adverse Reaction (Mild, Verified 09/07/24 08:39) Stomach Upset Is last menstrual period known: Yes HPI Comments Details: Adelina is here today for a new patient consult. She reports having pearls, I just put up with them , on the external labia bilaterally for years seemingly getting more prominent and uncomfortable, one particular area on the left is tender when sitting. She tried squeezing it but nothing happened. She only wears pilo pants. She wants to make sure everything is okay. [facility] Medical History Sinus congestion Cough Weight loss Polyarthralgia Fall Shoulder pain, right Back pain Nausea Palpitation Headache, post-traumatic, acute Scalp irritation Anemia Encounter for vitamin deficiency screening Renal cyst Dense breast Breast cancer screening by mammogram Acute bronchitis Ocular migraine Hyperlipidemia History of CVA (cerebrovascular accident) (~2020) Tubular adenoma of colon (~2005) SERG (obstructive sleep apnea) Nasal vestibulitis Degeneration, intervertebral disc, cervical Dry eye PONV (postoperative nausea and vomiting) Arthritis of neck Cerebral microvascular disease Atherosclerotic cardiovascular disease Precordial chest pain URI (upper respiratory infection) Overactive bladder Microscopic hematuria Urinary urgency Osteoporosis (~1999) Mycobacterial disease GERD (gastroesophageal reflux disease) Pulmonary nodules COPD (chronic obstructive pulmonary disease) Surgical History History of fusion of cervical spine History of sinus surgery History of colonoscopy History of esophagogastroduodenoscopy (EGD) History of bladder suspension procedure Family History Son No problems noted. Social History Household Members: Spouse Housing: Condominium Do you presently have visiting nurse or other home services: No Alcohol intake: never Patient Tobacco Use Status: Never used Tobacco Tobacco use type: Cigarette Years Smoked: parent and smoker e-Cigarette/Vaping Use: Never Used Second Hand Smoke Exposure: Yes Advance Directives Date on File: 08/16/20 service: No Current occupational status: retired Current occupation: right hand Cognitive needs: No Hearing needs: Yes (hearing aides) Vision needs: Yes (Glasses) Female Reproductive History Menstrual Total pregnancies: 3 Full term: 2 Ab spontaneous: 1 Review of Systems Const All systems reviewed & are unremarkable except as noted in HPI and below Endo Reports no additional complaints Physical Exam Vital Signs: Last Vital Signs BP 102/60 09/07/24 08:43 BMI result Body Mass Index 21.5 Const General: cooperative, healthy appearing and no acute distress Other: External inspection only: Area of dried feces cleansed off upper left labia. Atrophic changes, prominent multiple hard nontender sebaceous gland cysts largest on the lower left labia is uncomfortable for her to sit. They are not infected or erythematous. 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 Multiple findings, 1 large 1 she would like to have removed due to its discomfort. Recommended she make a consult with Dr. Leyva- a surgical removal for cyst. Recommended wearing softer more comfortable clothing in the meantime and not to squeeze the area which can cause inflammation pain and infection these types of waxy firm debris does not easily become removed with at home methods. All of her questions and concerns were addressed to the best of my ability and shared decision making. She is agreeable to the plan of care. This note is constructed using voice recognition software. While every effort has been made to ensure accuracy, sound technician supervisor errors may have been included. Coding Level of Care Code New Pt Level 3 (41780) Diagnoses Sebaceous gland overactivity L73.8
[2024-09-07 08:43] VITALS: BP 102/60; BMI 21.5
== END 2024-09-07 09:07 | disposition home or self-care (01) ==
LOC: HO.HWS 08:31
PROVIDERS: PCP Internal Medicine; Visit Provider Advanced Practice Midwife
DX: L73.8 Other specified follicular disorders (principal)
CPT/HCPCS: 99203

== ENCOUNTER → 2024-09-07 08:31 | Outpatient (BNVA) | payer MEDICARE, OTHER, SELFPAY | PROVIDERS: PCP Internal Medicine; Visit Provider Advanced Practice Midwife | DX: L73.8 Other specified follicular disorders (principal) | CPT/HCPCS: 99202 ==

== ENCOUNTER 2024-09-08 07:23 | Outpatient (AMB) | payer MEDICARE, OTHER, SELFPAY ==
--- NOTE | 2024-09-08 07:32 | A.OFFVIS_ITS ---
Intake Visit Reasons: consult painful labia lump per Carly Liu Geothermal Operations Manager: Geothermal Operations Manager Present (Aracely) Allergies naproxen [From NAPROSYN] Allergy (Severe, Verified 09/08/24 07:33) sensitivity niacin [From NIASPAN EXTENDED-RELEASE] Allergy (Severe, Verified 09/08/24 07:33) Rash clarithromycin [From BIAXIN] Allergy (Mild, Verified 09/08/24 07:33) sensitivity codeine [CODEINE] Allergy (Mild, Verified 09/08/24 07:33) Itching esomeprazole [From Nexium] Allergy (Mild, Verified 09/08/24 07:33) Hives fluconazole [From DIFLUCAN] Allergy (Mild, Verified 09/08/24 07:33) sensitivity gatifloxacin [From TEQUIN] Allergy (Mild, Verified 09/08/24 07:33) sensitivity hydrocodone [From Vicodin] Allergy (Mild, Verified 09/08/24 07:33) Rash levofloxacin [From Levaquin] Allergy (Mild, Verified 09/08/24 07:33) sensitivity oxycodone [From Percocet] Allergy (Mild, Verified 09/08/24 07:33) Itching quinidine [QUINIDINE] Allergy (Mild, Verified 09/08/24 07:33) sensitivity Sulfa (Sulfonamide Antibiotics) [SULFA (SULFONAMIDE ANTIBIOTICS)] Allergy (Mild, Verified 09/08/24 07:33) Rash terfenadine [From SELDANE] Allergy (Mild, Verified 09/08/24 07:33) sensitivity tetracycline [TETRACYCLINE] Allergy (Mild, Verified 09/08/24 07:33) sensitivity cefaclor [From CECLOR] Adverse Reaction (Severe, Verified 09/08/24 07:33) Unknown abaloparatide [From Tymlos] Adverse Reaction (Intermediate, Verified 09/08/24 07:33) Dizziness cefdinir Adverse Reaction (Intermediate, Verified 09/08/24 07:33) Stomach Upset montelukast [From Singulair] Adverse Reaction (Mild, Verified 09/08/24 07:33) Headache topiramate [From TOPAMAX] Adverse Reaction (Mild, Verified 09/08/24 07:33) Stomach Upset HPI Comments Details: Presenting referred from Carly Mcwilliams CNM regarding left labial sebaceous cyst please causing irritation and tenderness over the last few years [facility] Medical History Sinus congestion Cough Weight loss Polyarthralgia Fall Shoulder pain, right Back pain Nausea Palpitation Headache, post-traumatic, acute Scalp irritation Anemia Encounter for vitamin deficiency screening Renal cyst Dense breast Breast cancer screening by mammogram Acute bronchitis Ocular migraine Hyperlipidemia History of CVA (cerebrovascular accident) (~2020) Tubular adenoma of colon (~2005) SERG (obstructive sleep apnea) Nasal vestibulitis Degeneration, intervertebral disc, cervical Dry eye PONV (postoperative nausea and vomiting) Arthritis of neck Cerebral microvascular disease Atherosclerotic cardiovascular disease Precordial chest pain URI (upper respiratory infection) Overactive bladder Microscopic hematuria Urinary urgency Osteoporosis (~1999) Mycobacterial disease GERD (gastroesophageal reflux disease) Pulmonary nodules COPD (chronic obstructive pulmonary disease) Surgical History History of fusion of cervical spine History of sinus surgery History of colonoscopy History of esophagogastroduodenoscopy (EGD) History of bladder suspension procedure Family History Son No problems noted. Social History Household Members: Spouse Housing: Condominium Do you presently have visiting nurse or other home services: No Alcohol intake: never Patient Tobacco Use Status: Never used Tobacco Tobacco use type: Cigarette Years Smoked: parent and smoker e-Cigarette/Vaping Use: Never Used Second Hand Smoke Exposure: Yes Advance Directives Date on File: 08/16/20 service: No Current occupational status: retired Current occupation: right hand Cognitive needs: No Hearing needs: Yes (hearing aides) Vision needs: Yes (Glasses) Review of Systems Const All systems reviewed & are unremarkable except as noted in HPI and below Physical Exam General: Yes no CVA tenderness External Female Exam: normal appearance of the urethra and other (Left 1 cm labia majora sebaceous cyst) Speculum Exam - Vagina: normal appearance of the vagina, normal palpation, no lesions and no masses Speculum Exam - Cervix: normal appearance of the cervix, normal palpation, no lesions, no masses and nontender Bimanual exam- vagina & uterus: normal bimanual exam, normal palpation, uterine size normal, normal palpation, uterine shape normal, No Cervical tenderness present and non-tender Bimanual Exam- Adnexa, other: normal adnexae Back/Spine/Pelvis Back: no CVA tenderness Office Procedures Incision/Drainage SUMMER LAW ASSOCIATE Incision/Drainage SUMMER LAW ASSOCIATE Details: Before the procedure was started d/w patient the procedure, alternatives (do nothing, medical rx), & all the risks associated with the procedure ( bleeding , infection, vulvar scarring, painful intercourse, injury to vessels, possible need for transfusion with all its risks) then patient signed the consent. Preoperative diagnosis: Left labia majora sebaceous cyst. Operation: Left labia majora sebaceous cyst I & D Post-operative diagnosis: Same Anesthesia: Lidocaine 1% 3cc used Procedure: The skin was prepped with Betadine, palpation was used for guidance, 11-blade was used to incise the skin contiguous with the abscess cavity. This yielded 3 cc of sebaceous material & substantially decompressed the swelling, a clean dressing was used at the end. The patient tolerated the procedure well. The patient was sent home in stable condition. Discharge Instructions: The patient was instructed to call if temp>100.4, abdominal pain, nausea/vomiting. This note was generated with a voice recognition program. Some errors may have been overlooked during the review of this note. Sometimes these errors may af fect the content or meaning of a given sentence. 77649-C&D of vulva/perineum All charges added?: Procedure code (CPT) selection complete Assessment & Plan Assessment & Plan (1) Sebaceous cyst of labia: Comment: Left 1 cm Code(s): N90.7 - Vulvar cyst Category: Medical Plan: Discussed with the patient the finding on pelvic exam showing 1 cm left sebaceous cyst, recommended I&D. Procedure done, see note Orders: Orders Incision & Drainage SUMMER LAW ASSOCIATE Today N90.7 - Vulvar cyst Coding Level of Care Code Procedure Only Diagnoses Sebaceous cyst of labia N90.7 CPT Codes Incision/Drainage SUMMER LAW ASSOCIATE - IDGYN 1: 29541-R&D of vulva/perineum ([id number])
== END 2024-09-08 08:07 | disposition home or self-care (01) ==
LOC: HO.HWS 07:23
PROVIDERS: PCP Internal Medicine; Visit Provider Obstetrics & Gynecology
DX: N90.7 Vulvar cyst (principal)
CPT/HCPCS: 56405

== ENCOUNTER → 2024-09-08 07:23 | Outpatient (BNVA) | payer MEDICARE, OTHER, SELFPAY | PROVIDERS: PCP Internal Medicine; Visit Provider Obstetrics & Gynecology | DX: N90.7 Vulvar cyst (principal) | CPT/HCPCS: 56405 ==

== ENCOUNTER 2024-09-10 11:26 | Outpatient (AMB) | payer MEDICARE, OTHER, SELFPAY ==
--- NOTE | 2024-09-10 11:44 | MHC.OFFVIS ---
Vital Signs 09/10/24 11:47 Height 5 ft Weight 108 lb 0.424 oz BMI 21.1 Intake Visit Reasons: labia bump removal Medical Assembler Required: No Information Interpreted: non-clinical & clinical Bottling Machine Operator: Bottling Machine Operator Present (Essie CANCINO) Accompanied by: Self / Same As Patient Allergies naproxen [From NAPROSYN] Allergy (Severe, Verified 09/10/24 11:48) sensitivity niacin [From NIASPAN EXTENDED-RELEASE] Allergy (Severe, Verified 09/10/24 11:48) Rash clarithromycin [From BIAXIN] Allergy (Mild, Verified 09/10/24 11:48) sensitivity codeine [CODEINE] Allergy (Mild, Verified 09/10/24 11:48) Itching esomeprazole [From Nexium] Allergy (Mild, Verified 09/10/24 11:48) Hives fluconazole [From DIFLUCAN] Allergy (Mild, Verified 09/10/24 11:48) sensitivity gatifloxacin [From TEQUIN] Allergy (Mild, Verified 09/10/24 11:48) sensitivity hydrocodone [From Vicodin] Allergy (Mild, Verified 09/10/24 11:48) Rash levofloxacin [From Levaquin] Allergy (Mild, Verified 09/10/24 11:48) sensitivity oxycodone [From Percocet] Allergy (Mild, Verified 09/10/24 11:48) Itching quinidine [QUINIDINE] Allergy (Mild, Verified 09/10/24 11:48) sensitivity Sulfa (Sulfonamide Antibiotics) [SULFA (SULFONAMIDE ANTIBIOTICS)] Allergy (Mild, Verified 09/10/24 11:48) Rash terfenadine [From SELDANE] Allergy (Mild, Verified 09/10/24 11:48) sensitivity tetracycline [TETRACYCLINE] Allergy (Mild, Verified 09/10/24 11:48) sensitivity cefaclor [From CECLOR] Adverse Reaction (Severe, Verified 09/10/24 11:48) Unknown abaloparatide [From Tymlos] Adverse Reaction (Intermediate, Verified 09/10/24 11:48) Dizziness cefdinir Adverse Reaction (Intermediate, Verified 09/10/24 11:48) Stomach Upset montelukast [From Singulair] Adverse Reaction (Mild, Verified 09/10/24 11:48) Headache topiramate [From TOPAMAX] Adverse Reaction (Mild, Verified 1108/24 11:48) Stomach Upset Post menopausal: Yes HPI Comments Details: Presenting requesting I&D of right labial sebaceous cyst causing irritation. The patient had I&D on the left side 2 days ago doing well with no complaints minimal bleeding no irritation or tenderness [facility] Medical History Sinus congestion Cough Weight loss Polyarthralgia Fall Shoulder pain, right Back pain Nausea Palpitation Headache, post-traumatic, acute Scalp irritation Anemia Encounter for vitamin deficiency screening Renal cyst Dense breast Breast cancer screening by mammogram Acute bronchitis Ocular migraine Hyperlipidemia History of CVA (cerebrovascular accident) (~2020) Tubular adenoma of colon (~2005) SERG (obstructive sleep apnea) Nasal vestibulitis Degeneration, intervertebral disc, cervical Dry eye PONV (postoperative nausea and vomiting) Arthritis of neck Cerebral microvascular disease Atherosclerotic cardiovascular disease Precordial chest pain URI (upper respiratory infection) Overactive bladder Microscopic hematuria Urinary urgency Osteoporosis (~1999) Mycobacterial disease GERD (gastroesophageal reflux disease) Pulmonary nodules COPD (chronic obstructive pulmonary disease) Surgical History History of fusion of cervical spine History of sinus surgery History of colonoscopy History of esophagogastroduodenoscopy (EGD) History of bladder suspension procedure Family History Son No problems noted. Social History Household Members: Spouse Housing: Condominium Do you presently have visiting nurse or other home services: No Alcohol intake: never Patient Tobacco Use Status: Never used Tobacco Tobacco use type: Cigarette Years Smoked: parent and smoker e-Cigarette/Vaping Use: Never Used Second Hand Smoke Exposure: Yes Advance Directives Date on File: 08/16/20 service: No Current occupational status: retired Current occupation: right hand Cognitive needs: No Hearing needs: Yes (hearing aides) Vision needs: Yes (Glasses) Review of Systems Const All systems reviewed & are unremarkable except as noted in HPI and below Physical Exam Vital Signs: BMI result Body Mass Index 21.1 General: Yes no CVA tenderness External Female Exam: normal appearance of the urethra and other (Left mid labia minora sebaceous cyst 1 cm) Speculum Exam - Vagina: normal appearance of the vagina, normal palpation, no lesions and no masses Speculum Exam - Cervix: normal appearance of the cervix, normal palpation, no lesions, no masses and nontender Bimanual exam- vagina & uterus: normal bimanual exam, normal palpation, uterine size normal, normal palpation, uterine shape normal, No Cervical tenderness present and non-tender Bimanual Exam- Adnexa, other: normal adnexae Back/Spine/Pelvis Back: no CVA tenderness Office Procedures Incision/Drainage INSPECTOR FINAL ASSEMBLY ELECTRICAL Incision/Drainage INSPECTOR FINAL ASSEMBLY ELECTRICAL Details: Before the procedure was started d/w patient the procedure, alternatives (do nothing, medical rx), & all the risks associated with the procedure ( bleeding , infection, vulvar scarring, painful intercourse, injury to vessels, possible need for transfusion with all its risks) then patient signed the consent. Preoperative diagnosis: Right mid labia minora sebaceous Operation: Right mid labia minora sebaceous cyst I & D Post-operative diagnosis: Same Anesthesia: Lidocaine 1% 3cc used Procedure: The skin was prepped with Betadine, palpation was used for guidance, 11-blade was used to incise the skin contiguous with the sebaceous cyst cavity. This yielded 2 cc of purulent fluid &substantially decompressed the swelling, a clean dressing was used at the end. The patient tolerated the procedure well. The patient was sent home in stable condition. Discharge Instructions: The patient was instructed to call if temp>100.4, abdominal pain, nausea/vomiting. This note was generated with a voice recognition program. Some errors may have been overlooked during the review of this note. Sometimes these errors may affect the content or meaning of a given sentence. 12736-X&D of vulva/perineum All charges added?: Procedure code (CPT) selection complete Assessment & Plan Assessment & Plan (1) Sebaceous cyst of labia: Comment: Right 1 cm Code(s): N90.7 - Vulvar cyst Category: Medical Plan: Discussed with the patient the finding on pelvic exam showing a right mid labia minora sebaceous cyst measuring 1 cm, recommended I&D. I&D done, see procedure note Orders: Orders Incision & Drainage INSPECTOR FINAL ASSEMBLY ELECTRICAL Today N90.7 - Vulvar cyst Coding Level of Care Code Procedure Only Diagnoses Sebaceous cyst of labia N90.7 CPT Codes Incision/Drainage INSPECTOR FINAL ASSEMBLY ELECTRICAL - IDGYN 1: 00801-E&D of vulva/perineum ([id number])
[2024-09-10 11:47] VITALS: BMI 21.1
== END 2024-09-10 12:37 | disposition home or self-care (01) ==
LOC: HO.HWS 11:26
PROVIDERS: PCP Internal Medicine; Visit Provider Obstetrics & Gynecology
DX: N90.7 Vulvar cyst (principal)
CPT/HCPCS: 56405

== ENCOUNTER → 2024-09-10 11:26 | Outpatient (BNVA) | payer MEDICARE, OTHER, SELFPAY | PROVIDERS: PCP Internal Medicine; Visit Provider Obstetrics & Gynecology | DX: N90.7 Vulvar cyst (principal) | CPT/HCPCS: 56405 ==

== ENCOUNTER 2024-09-22 07:25 | Outpatient (REF) | payer MEDICARE, OTHER, SELFPAY ==
[2024-09-22 07:43] LABS: MANUAL DIFF FLAG NO
[2024-09-22 07:56] LABS: Basophils Percent Auto 0.6 % (0-2); Eosinophils Absolute Auto 0.7 X10*3/uL (0.0-0.4); Eosinophils Percent Auto 10.4 % (0-4); Hematocrit 37.9 % (37.0-47.0); Hemoglobin 12.4 g/dl (12.0-16.0); Imm Gran Abs Auto 0.01 X10*3/uL (0.00-0.03); Imm Gran Pct Auto 0.1 % (0.0-0.4); Lymphocytes Absolute Auto 1.7 X10*3/uL (1.2-4.9); Mean Corpuscular HGB Conc 32.7 g/dl (31.0-35.0); Mean Corpuscular Hemoglobin 29.3 pg (27.0-33.0); Mean Corpuscular Volume 89.6 fL (80.0-98.0); Mean Platelet Volume 9.1 fL (9.4-12.3); Monocytes Absolute Auto 0.7 X10*3/uL (0.1-1.2); Monocytes Percent Auto 10.1 % (2-11); Neutrophils Absolute Auto 3.8 x10*3/uL (2.0-8.3); Neutrophils Percent Auto 54.8 % (45-73); Platelet Count 247 X10*3/uL (160-400); Red Blood Count 4.23 X10*6/uL (4.20-5.50); Red Cell Distribution Width 12.9 % (11.0-16.0)
[2024-09-22 08:37] LABS: Erythrocyte Sedimentation Rate 13 MM/HR (0-20)
[2024-09-26 23:29] LABS: Acetylcholine Receptor Binding <0.30 nmol/L
[2024-09-30 15:54] LABS: Acetylcholine Recep Modulating 13
== END 2024-09-22 07:26 | disposition home or self-care (01) ==
LOC: HO.LAB 07:25
PROVIDERS: PCP Internal Medicine; Visit Provider Psychiatry & Neurology Neurology
DX: G44.209 Tension-type headache, unspecified, not intractable (principal); H02.409 Unspecified ptosis of unspecified eyelid
CPT/HCPCS: 36415; 82550; 85025; 85652; 86041; 86043

== ENCOUNTER 2024-10-13 11:15 | Outpatient (AMB) | payer MEDICARE, OTHER, SELFPAY ==
--- NOTE | 2024-10-13 11:16 | A.OFFPC_ITS ---
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 Supervisor Water Softener Service Required: No Accompanied by: Self / Same As Patient Allergies naproxen [From NAPROSYN] Allergy (Severe, Verified 10/13/24 11:17) sensitivity niacin [From NIASPAN EXTENDED-RELEASE] Allergy (Severe, Verified 10/13/24 11:17) Rash clarithromycin [From BIAXIN] Allergy (Mild, Verified 10/13/24 11:17) sensitivity codeine [CODEINE] Allergy (Mild, Verified 10/13/24 11:17) Itching esomeprazole [From Nexium] Allergy (Mild, Verified 10/13/24 11:17) Hives fluconazole [From DIFLUCAN] Allergy (Mild, Verified 10/13/24 11:17) sensitivity gatifloxacin [From TEQUIN] Allergy (Mild, Verified 10/13/24 11:17) sensitivity hydrocodone [From Vicodin] Allergy (Mild, Verified 10/13/24 11:17) Rash levofloxacin [From Levaquin] Allergy (Mild, Verified 10/13/24 11:17) sensitivity oxycodone [From Percocet] Allergy (Mild, Verified 10/13/24 11:17) Itching quinidine [QUINIDINE] Allergy (Mild, Verified 10/13/24 11:17) sensitivity Sulfa (Sulfonamide Antibiotics) [SULFA (SULFONAMIDE ANTIBIOTICS)] Allergy (Mild, Verified 10/13/24 11:17) Rash terfenadine [From SELDANE] Allergy (Mild, Verified 10/13/24 11:17) sensitivity tetracycline [TETRACYCLINE] Allergy (Mild, Verified 10/13/24 11:17) sensitivity cefaclor [From CECLOR] Adverse Reaction (Severe, Verified 10/13/24 11:17) Unknown abaloparatide [From Tymlos] Adverse Reaction (Intermediate, Verified 10/13/24 11:17) Dizziness cefdinir Adverse Reaction (Intermediate, Verified 10/13/24 11:17) Stomach Upset montelukast [From Singulair] Adverse Reaction (Mild, Verified 10/13/24 11:17) Headache topiramate [From TOPAMAX] Adverse Reaction (Mild, Verified 10/13/24 11:17) Stomach Upset Medication List - Last Reconciled 10/13/24 by Rosa Maria Weiner PA-C albuterol sulfate 90 mcg/actuation 2 inhalations inhalation Q6H PRN 30 days atorvastatin 40 mg PO DAILY benzonatate 200 mg PO BID-TID PRN cholecalciferol (vitamin D3) TAKE 1 CAPSULE BY MOUTH DAILY Eliquis (apixaban) 5 mg PO BID 90 days NS estradiol 0.01%(0.1mg/gram) (Estrace) pea size amount to urethra vaginally daily flash glucose scanning reader (FreeStyle [place] 14 Day [place]) As directed flash glucose sensor (FreeStyle Waldemar 14 Day Sensor kit) As directed Flonase Allergy Relief 50 mcg/actuation (fluticasone propionate) 2 sprays intranasal DAILY NS insulin syringe-needle U-100 Use daily with Tymlos Lexapro (escitalopram oxalate) 10 mg PO DAILY NS lidocaine 4% (Lidocaine Pain Relief) 1 patch See Protocol transdermal DAILY loratadine 10 mg PO DAILY PRN nebulizers As directed polyethylene glycol 3350 (Miralax) 17 grams PO DAILY 30 days promethazine 12.5 mg PO Q6H PRN NS sennosides-docusate sodium 8.6-50 mg (Senna with Docusate Sodium) 2 tab-caps (2 x 8.6-50 mg) PO BEDTIME 30 days tramadol 50 mg PO BID PRN 21 days Tobacco use date assessed: 10/13/24 Fall risk assessment: No Falls in past year Last assessed Fall Risk: 10/13/24 Dental Screening Dental Screen Date: 10/13/24 Did you have a dental visit in the last 12 months?: Yes Did you have a dental problem in the last 6 months where you did not have access to dental care?: No Was dental information given to patient?: Patient has dentist HPI Cough HPI Details 78-year-old female with past medical his tory of COPD, generalized anxiety disorder last seen August 2024 calling in via telehealth for acute problem. Advised by pulmonology to limit steroids due to osteoporosis. Continue on magi as needed. Patient states she has been having a dry cough for about 1 week that has been improving. Her has been had a cough last week which is resolved. She states she used her inhaler yesterday and today and has had dressing improvement in the cough since using the inhaler. Denies any fever, productive cough, body ache, chills, sore throat or any other symptoms. She has no other concerns today. [facility] Medical History Sinus congestion Cough Weight loss Polyarthralgia Fall Shoulder pain, right Back pain Nausea Palpitation Headache, post-traumatic, acute Scalp irritation Anemia Encounter for vitamin deficiency screening Renal cyst Dense breast Breast cancer screening by mammogram Acute bronchitis Ocular migraine Hyperlipidemia History of CVA (cerebrovascular accident) (~2020) Tubular adenoma of colon (~2005) SERG (obstructive sleep apnea) Nasal vestibulitis Degeneration, intervertebral disc, cervical Dry eye PONV (postoperative nausea and vomiting) Arthritis of neck Cerebral microvascular disease Atherosclerotic cardiovascular disease Precordial chest pain URI (upper respiratory infection) Overactive bladder Microscopic hematuria Urinary urgency Osteoporosis (~1999) Mycobacterial disease GERD (gastroesophageal reflux disease) Pulmonary nodules COPD (chronic obstructive pulmonary disease) Surgical History History of fusion of cervical spine History of sinus surgery History of colonoscopy History of esophagogastroduodenoscopy (EGD) History of bladder suspension procedure Family History Son No problems noted. Social History Household Members: Spouse Housing: Condominium Do you presently have visiting nurse or other home services: No Alcohol intake: never Patient Tobacco Use Status: Never used Tobacco Tobacco use type: Cigarette Years Smoked: parent and smoker e-Cigarette/Vaping Use: Never Used Second Hand Smoke Exposure: Yes Advance Directives Date on File: 08/16/20 service: No Current occupational status: retired Current occupation: right hand Cognitive needs: No Hearing needs: Yes (hearing aides) Vision needs: Yes (Glasses) Questionnaire PHQ-9 Over the last 2 weeks, how often have you been bothered by any of the following problems? 1. Little interest or pleasure in doing things: several days 2. Feeling down, depressed, or hopeless: several days 3. Trouble falling or staying asleep, or sleeping too much: not at all 4. Feeling tired or having little energy: not at all 5. Poor appetite or overeating: not at all 6. Feeling bad about yourself - or that you are a failure or have let yourself or your family down: not at all 7. Trouble concentrating on things, such as reading the newspaper or watching television: not at all 8. Moving or speaking so slowly that other people could have noticed. Or the opposite - being so fidgety or restless that you have been moving around a lot more than usual: not at all 9. Thoughts that you would be better off or of hurting yourself in some way: not at all Total score: 2 Depression Screening Interpretation: Negative Depression Screening Done: Yes Source: Developed by Drs. Augie Espinoza, Yue Griffin, Michael Gallo and colleagues, with an educational aniya from [email or web address]. Thrive Questionnaire Date Thrive assessed: 10/13/24 I am a: Patient What is your living situation today?: I have a steady place to live Within the past 12 months, did the food you bought not last and you didn't have the money to get more?: Never true Within the past 12 months, did you worry whether your food would run out before you got money to buy more?: Never true Do you have trouble paying for medicines?: No Do you have trouble getting transportation to medical appointments?: No Do you have trouble paying your heating and electricity bill?: No Do you have trouble taking care of your child, family member or friend?: No Do you have trouble with day-to-day activities such as bathing, preparing meals, shopping, managing finances, etc.?: No Are you currently unemployed and looking for a job?: No Are you interested in more education?: No Please select the resources that you would like help with: None Currently or been in a relationship where the following occur: No concerns reported THRIVE Score: 0 AUDIT C Alcohol Use Questionnaire (AUDIT-C) 1. How often do you have a drink containing alcohol?: Never Total Score: 0 SAVANNAH-7 AMB Questionnaire SAVANNAH-7 Date SAVANNAH - 7 assessed: 10/13/24 Feeling nervous, anxious, or on edge: 0 = Not at all Not being able to stop or control worryin = Not at all Worrying too much about different things: 0 = Not at all Trouble relaxin = Not at all Being so restless that it is hard to sit still: 0 = Not at all Becoming easily annoyed or irritable: 0 = Not at all Feeling afraid as if something awful might happen: 0 = Not at all Total SAVANNAH-7 score (0-4 normal; 5-9 mild; 10-14 moderate; 15-21 severe): 0 Source: Developed by Drs. Augie Espinoza, Yue Griffin, Michael Gallo and colleagues, with an educational aniya from [email or web address]. Review of Systems Const Denies body aches, Denies chills, Denies fever(s), Denies headache(s) and Denies poor appetite ENT Denies dizziness and Denies headache(s) Card Denies chest pain, Denies syncope, Denies edema, Denies irregular heart rhythm, Denies lightheadedness and Denies dyspnea Resp Denies cough and Denies dyspnea GI Denies abdominal pain, Denies constipation, Denies diarrhea, Denies nausea and Denies vomiting Reports no additional complaints Musc Reports no additional complaints and Denies abnormal gait Skin/Breast Reports system reviewed and no additional complaints, except as documented Neuro Denies abnormal gait, Denies dizziness, Denies syncope and Denies headache(s) Psych Reports no additional complaints Physical exam (Primary Care) Vital Signs: Physical exam not performed due to nature of telehealth visit Tobacco/Smoking Status: Tobacco use Status Tobacco use date assessed 10/13/24 10/13/24 11:18 Patient Tobacco Use Status Never used Tobacco 10/13/24 11:18 Tobacco use type Cigarette 10/13/24 11:18 e-Cigarette/Vaping Use Never Used 10/13/24 11:18 PHQ-9: PHQ-9 Score PHQ-9: Total score 2 10/13/24 11:18 Depression Screening Interpretation: Negative Thrive Assessment: Date of Thrive Assessment Date Thrive assessed 10/13/24 10/13/24 11:18 Currently or been in a relationship where the following occur: No concerns reported Telehealth Telehealth Telehealth Platform: Telephone Location of provider rendering services: practice address Location of patient: address on file Patient Identification confirmed using: Name, : Yes Telehealth method: voice only Patient verbally consented to treatment: Yes Patient verbally consented to billing insurance company: Yes Patient informed of any privacy concerns related to visit: Yes Coding Level of Care Code Tele Est Pt Level 3 (42089) Diagnoses Chronic cough R05.3 Cough type: chronic Assessment & Plan Assessment & Plan (1) Cough: Code(s): R05 - Cough Category: Medical Qualifiers: Cough type: chronic Qualified Code(s): R05.3 - Chronic cough Plan: Patient having nonproductive dry cough has been improving over the last week. After using her inhaler she has had no recurrence of the cough. Denies any other symptoms at this time. Low suspicion for pneumonia at this time but did review red flag symptoms of pneumonia and when to present for re-evaluation. Advised patient to continue using her inhaler as needed and reach out to the office if symptoms worsen or persist. Plan This note was constructed using voice recognition software. While every effort has been made to ensure accuracy and computer engineering professor, still areas may have been included sometimes these areas may affect the content or meeting of the given symptoms. Total time spent caring for the patient today was 20 minutes. This includes time spent before the visit reviewing the chart, time spent during the visit, and time spent after the visit and documentation.
--- OUTSIDE RECORDS SUMMARY | 2024-10-14 01:35 | XMS_ITS ---
Author Organization [facility] Address [address] [place] [address] Care Team Providers Care Loader Engineer Name Role Phone Abby Potter MD Primary Care Provider Unavailletty e Nadine Braga Unavailable [phone] ALLERGIES Allergen (clinical drug ingredient) Drug/Non Drug Allergy documented on EMR Reaction Allergy Type Onset Date Status oxycodone Oxycodone HCl Unknown Drug Allergy Act farzana esomeprazole Nexium Unknown Drug Allergy Acti ve dicyclomine Dicyclomine HCl Unknown Drug Allergy Active Codeine Phosphate Unknown Drug Allergy Active Biaxin Unknown Drug Allergy Active Vicodin Unknown Drug Allergy Active Ultracet Unknown Drug Allergy Active tetracycline Tetracycline HCl Unknown Drug Allergy Active Sulfacet-R Unknown Drug Allergy Active acetaminophen / oxycodone Percocet Unknown Drug Allergy Active penicillamine Penicillamine Unknown Drug Allergy Active REASON FOR VISIT Patient presents today for constipation MEDICATIONS Medication SIG (Take, Route, Frequency, Duration) Notes Start Date End Date Status Eliquis 5 MG TAKE 1 TABLET BY MOUTH TWICE DAILY Oral for 30 R918,Unavailabl e Active Advair Diskus 100-50 MCG/DOSE 1 puff Inhalation Twice a day Active Lexapro 10 MG 1 tablet Orally Once a day for 30 day(s) Active Probiotic - as directed Orally EVERY DAY/10 BILLIONCELL Active Xanax 0.5 MG 1 tablet Orally PRN Active Vitamin B12 1000 MCG 1 tablet Orally Onc e a day for 30 day(s) Active Zaditor 0.025 % 1 drop into affected eye Ophthalmic Twice a day Active Claritin 10 MG 1 tablet Orally Once a day for 30 day(s) Active Atorvastatin Calcium 40 MG 1 tablet Orally Once a day Active Compazine 10 TAKE ONE TABLET ORALLY 2 TIMES A DAY NEEDED FOR NAUSEA as needed Active Co Q 10 10 MG 1 capsule with a cindy l Orally Once a day for 30 day(s) prn Active Restasis 0.05 % 1 drop into affected eye Ophthalmic Twice a day Active Vitamin D-3 125 MCG (5000 UT) 1 tablet Orally Once a day for 30 day(s) Active Lexapro 10 MG 1 tablet Orally Once a day for 30 day(s) Active IMMUNIZATIONS Vaccine Route Administration Date Status Comme nts Influenza Unknown 08/25/2024 Refused Pneumococcal Unknown 08/25/2024 Refused SOCIAL HISTORY Sex Assigned At : Social History Observation Description Sex Assigned At Unknown Alcohol Screen Question Answer Notes Did you have a drink containing alcohol in the p ast year? No Points 0 Interpretation Negative VITAL SIGNS BMI 21.53 kg/m2 08/25/2024 Blood pressure systolic 000 mm Hg 08/25/20 24 Blood pressure diastolic 00 mm Hg 024 Height 60 in 08/25/2024 Temperature 98.4 degrees Fahrenheit 08/25/20 Weight 110 lb 4 oz lbs 08/25/2024 Encounters Encounter Location Date Provider Diagnosis [facility] [address] [place] [id number] 08/25/2024 Nadine Braga Gastroesophageal ref lux disease, esophagitis presence not specified K21.9 ; Constipation, unspecified constipation type K59.00 and Irritable bowel syndrome with constipation K58.1 ASSESSMENTS Encounter Date Diagnosis Assessment Notes Treatment Notes Treatment Clinical Notes 08/25/2024 Gastroesophageal ref lux disease, esophagitis presence not specified (ICD-10 - K21.9) For acid reflux: You can use over the counter TUMS and/or Pepcid as needed 08/25/2024 Constipation, unspecified constipation type (ICD-10 - K59.00) For connstipation: Start 2 Metamucil fiber pills once or twice every day with a lot of water Start some Miralax once or twice every day You can use Colace without laxative once or twice every day Stay on a healthy high fiber diet with a lot of water 08/25/2024 Irritable bowel syndrome with constipation (ICD-10 - K58.1) PLAN OF TREATMENT Treatment Notes Assessment Notes Gastroesophageal reflux dise ase, esophagitis presence not specified For acid reflux: You can use over the counter TUMS and/or Pepcid as needed Constipation, unspecified constipation t ype For connstipation: Start 2 Metamucil fiber pills once or twice every day with a lot of water Start some Miralax once or twice every day You can use Colace without laxative once or twice every day Stay on a healthy high fiber diet with a lot of water Next Appt Details Follow Up: prn, Reason: Progress Notes * Examination Category Sub-Category Detail Notes General Examination GENERAL APPEARANCE: pleasant , well nourished, well developed, in no acute distress HEAD: EYES: sclera non-icteric EARS: NOSE: THROAT: NECK/THYROID: no cervical lymphade nopathy, neck supple HEART: S1, S2 normal CHEST: LUNGS: clear to auscultatio n bilaterally ABDOMEN: normal bowel sounds, no guarding or rigidity, no guarding or rigidity, no masses palpable, soft, nontender, nondistended NEUROLOGIC: alert and oriented SKIN: nonjaundiced, no spi torito angiomata EXTREMITIES: no edema PERIPHERAL PULSES: BACK: BREASTS: MUSCULOSKELETAL: MALE GENITOURINARY: LYMPH NODES: RECTAL EXAM: FEMALE GENITOURINARY: ORAL CAVITY: mucosa moist
--- OUTSIDE RECORDS SUMMARY | 2024-10-14 01:35 | XMS_ITS ---
Author Organization [facility] Address [address] [place] [address] Care Team Providers Care Head Inspector Name Role Phone Abby Potter MD Primary Care Provider Nadine Tai Unavailable [phone] REASON FOR VISIT rethinking colonoscopy Encounters Encounter Location Date Provider Diagnosis [facility] [address] [place] [address] 08/26/2024 Nadine Braga PLAN OF TREATMENT No Information
--- OUTSIDE RECORDS SUMMARY | 2024-10-14 01:35 | XMS_ITS | Patient Health Record ---
Author Organization [facility] Address [address] [place] [address] Care Team Providers Care Alarm Adjuster Name Role Phone Abby Potter MD Primary Care Provider Nadine Tai Unavailable [phone] ALLERGIES Allergen (clinical drug ingredient) Drug/Non Drug [...] Penicillamine Unknown Drug Allergy Active REASON FOR REFERRAL No Information MEDICATIONS Medication SIG (Take, Route, Frequency, Duration) Notes Start Date End Date Status Vitamin B12 1000 MCG 1 tablet Orally Onc e a day for 30 day(s) Active Zaditor 0.025 % 1 drop into affected eye Ophthalmic Twice a day Active Claritin 10 MG 1 tablet Orally Once a day for 30 day(s) Active Co Q 10 10 MG 1 capsule with a cindy l Orally Once a day for 30 day(s) prn Active Eliquis 5 MG TAKE 1 TABLET BY MOUTH TWICE DAILY Oral for 30 R918,Unavailabl e Active Restasis 0.05 % 1 drop into affected eye Ophthalmic Twice a day Active Vitamin D-3 125 MCG (5000 UT) 1 tablet Orally Once a day for 30 day(s) Active Advair Diskus 100-50 MCG/DOSE 1 puff Inhalation Twice a day Active Lexapro 10 MG 1 tablet Orally Once a day for 30 day(s) Active Lexapro 10 MG 1 tablet Orally Once a day for 30 day(s) Active Probiotic - as directed Orally EVERY DAY/10 BILLIONCELL Active Xanax 0.5 MG 1 tablet Orally PRN Active Atorvastatin Calcium 40 MG 1 tablet Orally Once a day Active Compazine 10 TAKE ONE TABLET ORALLY 2 TIMES A DAY NEEDED FOR NAUSEA as needed Active IMMUNIZATIONS Vaccine Route Administration Date Status Comme nts Influenza Unknown 07/04/2019 Administered Influenza Unknown 08/03/2019 Administered Influenza Unknown 07/04/2020 Administered Influenza Unknown 08/25/2024 Refused Pneumococcal Unknown 08/25/2024 Refused SOCIAL HISTORY Sex Assigned At : Social History Observation Description Sex Assigned At Unknown Alcohol Screen Question Answer Notes Did you have a drink containing alcohol in the p ast year? No Points 0 Interpretation Negative PROBLEMS Problem Type ICD Code Onset Dates Problem Status W/U Status Risk SNOMED Code Notes Problem Esophageal reflux (K21.9) Active confirmed Esophageal reflux (681274214) Problem Encounter for screening for malignant neoplasm of colon (Z12.11) Active confirmed 748477578 Problem History of adenomatous polyp of colon (Z86.010) Active confirmed History of adenomatous polyp of colon (169046496) Problem Gastroesophageal reflux disease without esophagitis (K21.9) Active confirmed 222723712 Problem Gastroesophageal reflux disease, esophagitis presence not specified (K21.9) Active confirmed 663978428 Problem Hiatal hernia (K44.9) Active confirmed Hiatal hernia (75880016) Problem 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) Active confirmed 277059836 Problem Constipation, unspecified constipation type (K59.00) Active confirmed 04613902 Problem Aspiration into airway, initial encounter (T17.908A) Active confirmed 138803838 Problem Irritable bowel syndrome with constipation (K58.1) Active confirmed 261732287 Problem Left upper quadrant abdominal pain (R10.12) Active confirmed 102763812 VITAL SIGNS Temperature 98.4 degrees Fahrenheit 08/25/2024 Blood pressure diastolic 00 mm Hg 08/25/2024 Height 60 in 08/25/2024 Blood pressure systolic 000 mm Hg 08/25/2024 Weight 110 lb 4 oz lbs 08/25/2024 BMI 21.53 kg/m2 08/25/2024 Encounters Encounter Location Date Provider Diagnosis [facility] [address] [place] [address] 08/25/2024 Nadine Braga Gastroesophageal ref lux disease, esophagitis presence not specified K21.9 ; Constipation, unspecified constipation type K59.00 and Irritable bowel syndrome with constipation K58.1 [facility] [address] [place] [address] 08/26/2024 Nadine Braga ASSESSMENTS Encounter Date Diagnosis Assessment Notes Treatment [...] constipation (ICD-10 - K58.1) PLAN OF TREATMENT Pending Test Test Name Order Date LIVER PROFILE 03/02/2021 AMYLASE 03/02/2021 LIPASE 03/02/2021 CBC w DIFF 03/02/2021 Future Test Test Name Order Date COLONOSCOPY 03/23/2014 UPPER GI ENDOSCOPY 09/02/2019 COLONOSCOPY 09/02/2019 Insurance Providers Payer Name Payer Address Payer Phone Subscriber Number Group Number Insured Name Patient Relationship to Insured Coverage Start Date Coverage End Date MEDICARE OF [place] [address] [place] [id number] TIMMY NAVARRO Self - patient is the insured [employer] [address] [place] [id number] TIMMY NAVARRO Self - patient is the insured MEDICAL (GENERAL) HISTORY Medical History History ICD Code Colon polyps-2 tubular adeno mas removed in 2005-mild diverticulosis, int/ext hemorrhoids GERD-EGD in 2005-minimal HH- -no esophagitis/Tony's, duodenal bx neg for celiac disease; EGD in 11/2019 with a small HH and no esophagitis nor Tony's esophagus Bronchiectasis--sees Dr. Lino at [facility]--had a bronchoscopy in 02/2014 Mild COPD No [place], DM, Renal disease Neg. colonoscopy in 06/2014 e xcept sigmoid diverticulosis and internal hemorrhoids IBS with constipation Lung nodules Colonoscopy in 11/2019 with a small tubul ar adenoma and melanosis coli Neg. GB U/S in 01/2018 Kidney stone CVA-2021--no residual Surgical History Surgery Date(Month/Year) Sinus surgery Bladder suspension surgery C-spine--at [facility] 02/15/2018
--- OUTSIDE RECORDS SUMMARY | 2024-10-14 01:36 | XMS_ITS ---
Author Organization [facility] Address [address] [facility] [place] [address] Care Team Providers Care Remote Sensing Program Manager Name Role Phone Abby Potter Primary Care Provider Charity Castro Unavailable [phone] Allergies Allergen (clinical drug ingredient) Drug/Non Drug Allergy documented on EMR Reaction Allergy Type Onset Date Status acetaminophen Acetaminophen Increased PVC Drug Allergy Active Antacid SOB, wheezing Drug Allergy Act farzana cefaclor Cefaclor increased palpatations Drug Allergy Active Ceftin Unknown Drug Allergy Active clarithromycin Clarithromycin nausea vomiting Drug Allergy Active fluoxetine Fluoxetine itching/pruritus Drug Allergy Active Keflex Unknown Drug Allergy Active montelukast Montelukast Sodium headaches Drug Allergy Active propranolol Propranolol HCl hallucinations Drug Allergy Active Vicodin Increased PVC Drug Allergy Act farzana codeine Codeine rash,dermatitis Drug Allergy A ctive REASON FOR VISIT Painful nail(s) aggrevated by shoes causing difficulty standing/walking, Ingrown Nail Medications Medication SIG (Take, Route, Frequency, Duration) Notes Start Date End Date Status Metoprolol Succinate ER Not-Taking Penicillin V Potassium 500 MG 1 tablet Orally Twice a day for 10 day(s) 02/21/2023 Not-Taking Azithromycin 500 MG Orally 3 times a week Not-Taking Ammonium Lactate 12 % 1 application Externally Twice a day for 30 days Active Doxycycline Monohydrate 100 MG 1 capsule Orally Once a day for 10 days 02/20/2023 Not-Taking eliquis 5 mg Active Eye Drops Active traMADol HCl ER 100 MG 1 tablet Orally Once a day PRN Active Lexapro Active Probiotic Active Prednisone Not-Takin g Amitiza Not-Taking Multivitamin Active Atorvastatin Calcium 20 MG 1 tablet Orally Once a day for 30 day(s) Active Aciphex Not-Taking Ethambutol HCl Not-T aking Synthroid Not-Taking rifAMPin Not-Taking Probiotic Daily Not- Taking Valium Not-Taking Ciclopirox Olamine 0.77% external Apply to effected areas twice a day for 30 days 01/02/2015 Not-Taking methylPREDNISolone N ot-Taking Indomethacin 25 MG take 1 capsule by mouth twice a day if needed for inflammation Oral for 30 Not-Taking Linzess Not-Taking Fish Oil Not-Taking Prochlorperazine Maleate Not-Taking Neurontin 100 MG Orally Not -Taking vitamin D Not-Taking Fioricet Not-Taking Flax Seed Oil Not-Ta Crestor 10 mg Not-Ta Atenolol 25 MG 1 tablet Orally Once a day Not-Taking Doxycycline Not-Takjonathan samuel [place] 3 500 400 mg 1 capsule Orally Twice a day Not-Taking Calcium Not-Taking Nystatin 578958 UNIT Orally Not-Taking Pazeo Not-Taking Social History Tobacco Use: Social History Observation Description Date Details (start date - stop date) Never Smoker NA - NA Tobacco Use/Smoking Question Answer Notes Are you a: nonsmoker Additional Findings: Tobacco Non-User Current no n-smoker Alcohol Screen Question Answer Notes Did you have a drink containing alcohol in the p ast year? No Points 0 Interpretation Negative Tobacco use other than smoking: Question Answer Notes Are you an other tobacco user? No Vital Signs Height 5ft in 08/23/2024 Weight 105 lbs 08/23/2024 BMI 20.5 kg/m2 08/23/2024 Procedures Procedure Date Ordered Date Performed Result Body Sit e 36844-DVALJJY NAIL, 6 OR MORE 08/23/2024 N/A 33112-Qqsgocnp Plate 08/23/2024 N/A Encounters Encounter Location Date Provider Diagnosis [facility] [place] [address] [place] [address] 08/23/2024 Charity Black Tinea unguium B35.1 ; Pain in right toe(s) M79.674 ; Pain in left toe(s) M79.675 and Ingrown nail L60.0 Assessments Encounter Date Diagnosis (ICD Code) Assessment Notes Treatment Notes Treatment Clinical Notes Section Notes 08/23/2024 Tinea unguium (ICD-10 - B35.1) 08/23/2024 Pain in right toe(s) (ICD-10 - M79.674) 08/23/2024 Pain in left toe(s) (ICD-10 - M79.675) 08/23/2024 Ingrown nail (ICD-10 - L60.0) Plan Of Treatment Pending Test Test Name Order Date 02695-QNPDPLI NAIL, 6 OR MORE 08/23/2024 73296-Hpysvkji Plate 08/23/2024 Next Appt Details Follow Up: 2 Weeks,prn, Reas on: Provider Name:Charity Marquez , 11/29/2024 08:00:00 AM, [address] [place] [address], [phone], Procedure Notes * Category Sub-Category Detail Notes Nail Avulsion Procedure A fine sterile e levator was placed between the eponychium, nail fold, and nail plate to separate the structures. A sterile nail splitter, and/or sterile 316 blade, was then used to longitudinally section the nail along its entire length through the eponychium to the area under the nail fold. The offending portion of nail was from the nail bed with a rolling action and then removed with a hemostat. No underlying bone was identified. There was minimal bleeding as hemostasis was achieved through the temporary use of either a digital tourniquet or the aforementioned local with epinephrine. A bacitracin sterile dressing was applied. Local wound aftercare instructions were discussed and dispensed. The patient was informed of both conservative and future surgical procedures to prevent recurrence. Tylenol or Motrin was recommended for pain or discomfort (68594) , Pt DEFERS matricectomy Anesthesia was accomplished TOP ICALLY with Lidocaine Hydrochloride Jelly 2 percent, Location Medial nail border, T2, Debride Nail 6-10 Nail debridement Performance o f this nail treatment by a nonprofessional would put this patients foot and overall health at risk. Therefore, nail debridement was performed extensively to reduce/remove overall nail length, girth, thickness, subungual debris, and necrotic tissue, by manual and/or electrical means through the use of a nail nipper and/or dremel-type plate grinder, to a more viable healthy nail plate or bed tissue 6-10. Silver nitrate used for any petechial bleeding as necessary. Definitive antifungal treatment options have been reviewed and discussed with the patient. The patient chooses, no pharmaceutical tx - 19313 Progress Notes * Adelina TAVAREZ ADOB:[birth year] (78 yo F)Acc No.[id number]:08/23/2024 Progress Note Patient:Adelina Da Silva Provider:?Charity Marquez DPM :1945???Age:78 Y???Sex:Female D ate:08/23/2024 Address:[address] [place], [place] [id number] Pcp:Abby Potter Subjective: * Chief Complaints: * ???Painful nail(s) aggrevate d by shoes causing difficulty standing/walkingIngrown Nail * HPI: ???Painful Nails:?Pt States Last PCP Visit:?Date:?04/27/2024 * Medical History:? * Surgical History:?sinus surg adelso bladder surgery Lung biopsy 01/2015neck surgery 02/2019endoscopy 11/2019 * Hospitalization/Major Diagno stic Procedure:?[facility] [place] [facility] For Pressure on chest - it was acid reflux 2018Stroke 08/2021[facility] Broken Wrist - right 01/16/2023 * Family History:?Mother: dece ased.?Father: , diagnosed with Other malignant neoplasm of unspecified site.?Paternal Grand Mother: cancer.? * Social History:?Tobacco Use:?Tobacco Use/Smoking?Are you a:?nonsmoker ?Additional Findings: Tobacco Non-User?Current non-smoker ?Tobacco use other than smoking?Are you an other tobacco user??No ???Drugs/Alcohol:?Drugs?Have you used drugs other than those for medical reasons in the past 12 months??No ?Alcohol Screen?Did you have a drink containing alcohol in the past year??No ?Points?0 ?Interpretation?Negative ???Miscellaneous:?Caffeine: yes, 2-3 cups per day, decaff tea/coffee, sprite. ?Children: yes, 2. ?Exercise: yes, walking. ?Marital status: . 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 * Medications:?TakingMultivita min Atorvastatin Calcium 20 MG Tablet 1 tablet Orally Once a dayeliquis 5 mg Tablet Eye Drops Lexapro Probiotic traMADol HCl ER 100 MG Tablet Extended Release 24 Hour 1 tablet Orally Once a day, Notes: PRNAmmonium Lactate 12 % Cream 1 application Externally Twice a dayTaking Multivitamin Taking Atorvastatin Calcium 20 MG Tablet 1 tablet Orally Once a dayTaking eliquis 5 mg Tablet Taking Eye Drops Taking Lexapro Taking Probiotic Taking traMADol HCl ER 100 MG Tablet Extended Release 24 Hour 1 tablet Orally Once a day, Notes: PRNTaking Ammonium Lactate 12 % Cream 1 application Externally Twice a dayNot-Taking/PRNDoxycycline Monohydrate 100 MG Capsule 1 capsule Orally Once a dayPenicillin V Potassium 500 MG Tablet 1 tablet Orally Twice a dayAzithromycin 500 MG Tablet Orally , Notes: 3 times a weekMetoprolol Succinate ER Pazeo Nystatin 741722 UNIT Tablet Orally Crestor 10 mg Atenolol 25 MG Tablet 1 tablet Orally Once a dayDoxycycline [place] 3 500 400 mg Capsule 1 capsule Orally Twice a dayCalcium Flax Seed Oil vitamin D Fioricet Prochlorperazine Maleate Neurontin 100 MG Capsule Orally Ciclopirox Olamine 0.77% Cream external Apply to effected areas twice a daymethylPREDNISolone Indomethacin 25 MG Capsule take 1 capsule by mouth twice a day if needed for inflammation Oral Linzess Fish Oil Probiotic Daily Valium Synthroid rifAMPin Ethambutol HCl Aciphex Prednisone Amitiza Medication List reviewed and reconciled with the patientNot-Taking/PRN Doxycycline Monohydrate 100 MG Capsule 1 capsule Orally Once a dayNot-Taking/PRN Penicillin V Potassium 500 MG Tablet 1 tablet Orally Twice a dayNot-Taking/PRN Azithromycin 500 MG Tablet Orally , Notes: 3 times a weekNot-Taking/PRN Metoprolol Succinate ER Not-Taking/PRN Pazeo Not-Taking/PRN Nystatin 385933 UNIT Tablet Orally Not-Taking/PRN Crestor 10 mg Not-Taking/PRN Atenolol 25 MG Tablet 1 tablet Orally Once a dayNot-Taking/PRN Doxycycline Not-Taking/PRN [place] 3 500 400 mg Capsule 1 capsule Orally Twice a dayNot- Taking/PRN Calcium Not-Taking/PRN Flax Seed Oil Not-Taking/PRN vitamin D Not-Taking/PRN Fioricet Not-Taking/PRN Prochlorperazine Maleate Not-Taking/PRN Neurontin 100 MG Capsule Orally Not-Taking/PRN Ciclopirox Olamine 0.77% Cream external Apply to effected areas twice a dayNot-Taking/PRN methylPREDNISolone Not-Taking/PRN Indomethacin 25 MG Capsule take 1 capsule by mouth twice a day if needed for inflammation Oral Not-Taking/PRN Linzess Not-Taking/PRN Fish Oil Not-Taking/PRN Probiotic Daily Not-Taking/PRN Valium Not-Taking/PRN Synthroid Not-Taking/PRN rifAMPin Not- Taking/PRN Ethambutol HCl Not-Taking/PRN Aciphex Not-Taking/PRN Prednisone Not-Taking/PRN Amitiza Medication List reviewed and reconciled with the patient * Allergies:?KeflexCeftinClari thromycin: nausea vomitingCefaclor: increased palpatationsFluoxetine: itching/pruritusAntacid: SOB, wheezingPropranolol HCl: hallucinationsMontelukast Sodium: headachesAcetaminophen: Increased PVCVicodin: Increased PVCCodeine: rash,dermatitisyes[Allergies Verified] Objective: * Vitals:?Ht: 5ft, Wt: 105, BM I: 20.5, Shoe size: 6, Ht-cm: 152.4 cm, Wt-k.63 kg. * Examination: ???Nails: ?NAILS are:?Elongated, overgrown, dystrophic, lytic, greater than 3mm thick, discolored and friable with crumbly malodorous subungual debris, with pain on palpation , , 12,4-5 Left foot , T9 , T5.?Ingrown Nail: ?INSPECTION:?Reveals nail incurvation, pain on palpation, groove hypertrophy , groove ischemia , Medial nail border , T2.? Assessment: * Assessment: 1.?Tinea unguium - B35.1?2.? Pain in right toe(s) - M79.674?3.?Pain in left toe(s) - M79.675?4.?Ingrown nail - L60.0? Plan: * Treatment: 2.?Ingrown nail?Procedure: 05180-Fjyeleea Plate * Procedures:?Debride Nail 6-10:?Nail debridement?Performance of this nail treatment by a nonprofessional would put this patients foot and overall health at risk. Therefore, nail debridement was performed extensively to reduce/remove overall nail length, girth, thickness, subungual debris, and necrotic tissue, by manual and/or electrical means through the use of a nail nipper and/or dremel-type plate grinder, to a more viable healthy nail plate or bed tissue 6-10. Silver nitrate used for any petechial bleeding as necessary. Definitive antifungal treatment options have been reviewed and discussed with the patient. The patient chooses, no pharmaceutical tx - 16905.?Nail Avulsion:?Location?Medial nail border, T2, ?.?Anesthesia?was accomplished TOPICALLY with Lidocaine Hydrochloride Jelly 2 percent, ?.?Procedure?A fine sterile elevator was placed between the eponychium, nail fold, and nail plate to separate the structures. A sterile nail splitter, and/or sterile 316 blade, was then used to longitudinally section the nail along its entire length through the eponychium to the area under the nail fold. The offending portion of nail was from the nail bed with a rolling action and then removed with a hemostat. No underlying bone was identified. There was minimal bleeding as hemostasis was achieved through the temporary use of either a digital tourniquet or the aforementioned local with epinephrine. A bacitracin sterile dressing was applied. Local wound aftercare instructions were discussed and dispensed. The patient was informed of both conservative and future surgical procedures to prevent recurrence. Tylenol or Motrin was recommended for pain or discomfort (50617) , Pt DEFERS matricectomy.? * Procedure Codes:?64034 DEBRI DE NAIL, 6 OR MORE, Modifiers: XS 77062 Avulsion Plate, Modifiers: T1 * Follow Up:?2 Weeks,prn * Images: * Sign off status: Completed true * Provider:?Charity Marquez DPM Date:?2023 Generated for Carmelina baker/[place]/eTransmitting on:?10/14/2024 01:35 AM EST History and Physical Notes * HPI (History of Present Illness) Category Sub-Category Detail Notes Category Not es Painful Nails Pt States Last PCP Visit: Date:: 04/27/2024 Examination Category Sub-Category Detail Notes Category Not es Ingrown Nail INSPECTION: Reveals nail inc urvation, pain on palpation, groove hypertrophy , groove ischemia , Medial nail border , T2 Nails NAILS are: Elongated, overg rown, dystrophic, lytic, greater than 3mm thick, discolored and friable with crumbly malodorous subungual debris, with pain on palpation , , 12,4-5 Left foot , T9 , T5
--- OUTSIDE RECORDS SUMMARY | 2024-10-14 01:36 | XMS_ITS | Patient Health Record ---
Author Organization [facility] Address [address] [place] [address] Care Team Providers Care Water Rights Specialist Name Role Phone Abby Potter Primary Care Provider UnavailCharity Wasserman Unavailable [phone] Allergies Allergen (clinical drug ingredient) Drug/Non Drug [...] codeine Codeine rash,dermatitis Drug Allergy A ctive Reason For Referral No Information Medications Medication SIG (Take, Route, Frequency, Duration) Notes Start Date End Date Status Linzess Not-Taking Fish Oil Not-Taking Penicillin V Potassium 500 MG 1 tablet Orally Twice a day for 10 day(s) 02/21/2023 Not-Taking Synthroid Not-Taking Azithromycin 500 MG Orally 3 times a week Not-Taking rifAMPin Not-Taking Ammonium Lactate 12 % 1 application Externally Twice a day for 30 days Active Probiotic Daily Not- Taking Doxycycline Monohydrate 100 MG 1 capsule Orally Once a day for 10 days 02/20/2023 Not-Taking Valium Not-Taking eliquis 5 mg Active Ciclopirox Olamine 0.77% external Apply to effected areas twice a day for 30 days 01/02/2015 Not-Taking Eye Drops Active methylPREDNISolone N ot-Taking Multivitamin Active Prochlorperazine Maleate Not-Taking Atorvastatin Calcium 20 MG 1 tablet Orally Once a day for 30 day(s) Active Neurontin 100 MG Orally Not -Taking traMADol HCl ER 100 MG 1 tablet Orally Once a day PRN Active Lexapro Active Indomethacin 25 MG take 1 capsule by mouth twice a day if needed for inflammation Oral for 30 Not-Taking Probiotic Active [place] 3 500 400 mg 1 capsule Orally Twice a day Not-Taking vitamin D Not-Taking Fioricet Not-Taking Calcium Not-Taking Flax Seed Oil Not- cristian Nystatin 824529 UNIT Orally Not-Taking Prednisone Not-Takin g Crestor 10 mg Not-Ta cristian Amitiza Not-Taking Metoprolol Succinate ER Not-Taking Ethambutol HCl Not-T aking Pazeo Not-Taking Aciphex Not-Taking Atenolol 25 MG 1 tablet Orally Once a day Not-Taking Doxycycline Not-Takjonathan ng Immunizations Vaccine Route Administration Date Status Comme nts COVID-19 Moderna Vaccine Unknown 12/04/2020 Administered Second Dose:11/2020 Social History Tobacco Use: Social History Observation [...] Are you an other tobacco user? No Problems Problem Type SNOMED Code ICD Code Onset Dates Problem Status W/U Status Risk Notes Problem Acquired hammer toe of right foot (4000930765320657) Other hammer toe(s) (acquired), right foot (M20.41) Active confirmed Problem Tinea unguium (580525889) Tinea unguium (B35.1) Active confirmed Problem Acquired hammer toe of left foot (3650887207972974) Other hammer toe(s) (acquired), left foot (M20.42) Active confirmed Problem Acquired hallux valgus (63646803) Hallux valgus (acquired), right foot (M20.11) Active confirmed Problem Localized, primary osteoarthritis of the ankle and/or foot (785549195) Arthritis of joint of lesser toe, left (M19.072) Active confirmed Problem Localized, primary osteoarthritis of the ankle and/or foot (473000381) Arthritis of joint of lesser toe, right (M19.071) Active confirmed Vital Signs Heart Rate 73 /min 02/16/2024 Height 5ft in 08/23/2024 Weight 105 lbs 08/23/2024 BMI 20.5 kg/m2 08/23/2024 Procedures Procedure Date Ordered Date Performed Result Body Sit e 82348-LIUAWZJ NAIL, 6 OR MORE 11/24/2023 N/A 50844-NZECPKQ NAIL, 6 OR MORE 02/16/2024 N/A 80365-Kgdpcwwv Plate 02/16/2024 N/A 98880-DHDPHPR NAIL, 6 OR MORE 05/24/2024 N/A 37981-SEGKBUY NAIL, 6 OR MORE 08/23/2024 N/A 19415-Ykyuisnp Plate 08/23/2024 N/A Encounters Encounter Location Date Provider Diagnosis [address] [address] 11/24/2023 Charity Black Tinea unguium B35.1 ; Xerosis of skin L85.3 ; Pain in right toe(s) M79.674 and Pain in left toe(s) M79.[address] [address] 02/16/2024 Charity Black Xerosis of skin L85.3 ; Ingrown nail L60.0 ; Tinea unguium B35.1 ; Pain in right toe(s) M79.674 and Pain in left toe(s) M79.[address] [address] 05/24/2024 Charity Black Tinea unguium B35.1 ; Pain in right toe(s) M79.674 and Pain in left toe(s) M79.[address] [address] 08/23/2024 Chariyt Black Tinea unguium B35.1 ; Pain in right toe(s) M79.674 ; Pain in left toe(s) M79.675 and Ingrown nail L60.0 [facility] [address] [address] 05/24/2024 Charity Marquez Assessments Encounter Date Diagnosis (ICD Code) Assessment Notes Treatment Notes Treatment Clinical Notes Section Notes 11/24/2023 Tinea unguium (ICD-10 - B35.1) 11/24/2023 Xerosis of skin (ICD-10 - L85.3) 02/16/2024 Ingrown nail (ICD-10 - L60.0) 02/16/2024 Xerosis of skin (ICD-10 - L85.3) Response to treatment - Unresolved 05/24/2024 Tinea unguium (ICD-10 - B35.1) 05/24/2024 Pain in right toe(s) (ICD-10 - M79.674) 08/23/2024 Tinea unguium (ICD-10 - B35.1) 08/23/2024 Pain in right toe(s) (ICD-10 - M79.674) 08/23/2024 Pain in left toe(s) (ICD-10 - M79.675) 05/24/2024 Pain in left toe(s) (ICD-10 - M79.675) 02/16/2024 Tinea unguium (ICD-10 - B35.1) 11/24/2023 Pain in right toe(s) (ICD-10 - M79.674) 02/16/2024 Pain in right toe(s) (ICD-10 - M79.674) 11/24/2023 Pain in left toe(s) (ICD-10 - M79.675) 08/23/2024 Ingrown nail (ICD-10 - L60.0) 02/16/2024 Pain in left toe(s) (ICD-10 - M79.675) Plan Of Treatment Pending Test Test Name Order Date 83011-ZBGHXRY NAIL, 6 OR MORE 02/14/2014 35323-NMCTEFO NAIL, 6 OR MORE 04/03/2016 74268-AYNWOXG NAIL, 6 OR MORE 08/01/2016 41450-DPBGVTV NAIL, 6 OR MORE 02/06/2017 78614-AWRZFZB NAIL, 6 OR MORE 03/05/2017 62810-MDKQJRZ NAIL, 6 OR MORE 06/09/2017 56839-PIXCYIF NAIL, 6 OR MORE 09/11/2017 41711-EOWLBZZ NAIL, 6 OR MORE 12/11/2017 84764-WDKGPLK NAIL, 6 OR MORE 03/12/2018 21045-JSHSKWE NAIL, 6 OR MORE 06/11/2018 27169-BJLKQQO NAIL, 6 OR MORE 09/14/2018 31144-NTRZYTH NAIL, 6 OR MORE 11/26/2018 10503-OOLLHQB NAIL, 6 OR MORE 02/25/2019 47614-ROUEBHL NAIL, 6 OR MORE 06/03/2019 87372-MJSYDOC NAIL, 6 OR MORE 09/02/2019 59079-ZZJXGQS NAIL, 6 OR MORE 12/06/2019 47807-CEVTVCY NAIL, 6 OR MORE 02/28/2020 70140-MNIVIHU NAIL, 6 OR MORE 05/18/2020 26320-ZFCXAPL NAIL, 6 OR MORE 07/25/2020 24994-LJZPMQC NAIL, 6 OR MORE 10/19/2020 06842-YFNKHBT NAIL, 6 OR MORE 01/15/2021 48096-PBRBCFR NAIL, 6 OR MORE 03/19/2021 20651-AWUXFNW NAIL, 6 OR MORE 05/17/2021 61128-BWZZMRU NAIL, 6 OR MORE 08/23/2021 95079-NCFPUAV NAIL, 6 OR MORE 11/01/2021 76884-DQTFHLU NAIL, 6 OR MORE 01/14/2022 51179-QWSJTTB NAIL, 6 OR MORE 04/22/2022 84306-ZELZQEI NAIL, 6 OR MORE 08/06/2022 52540-GDMXPJO NAIL, 6 OR MORE 10/24/2022 35830-EXQOQIM NAIL, 6 OR MORE 01/30/2023 38314-WHGNUWL NAIL, 6 OR MORE 04/21/2023 58824-DAZJCRF NAIL, 6 OR MORE 07/14/2023 38942-XKHBDND NAIL, 6 OR MORE 11/24/2023 99713-KNVFHXC NAIL, 6 OR MORE 02/16/2024 11346-WANOWTO NAIL, 6 OR MORE 05/24/2024 54799-YUJGACF NAIL, 6 OR MORE 08/23/2024 88990-ATRWZYU NAIL, 1-5 10/17/2016 23364-DDIZODA NAIL, 1-5 12/06/2016 55686-OZZVARV NAIL, 1-5 01/01/2016 89916-GOMIDBV NAIL, 1-5 09/04/2015 95616-JXQOSMM NAIL, 1-5 04/17/2015 04601-ZWKEBTI NAIL, 1-5 06/01/2015 13978-UJSYVVQ NAIL, 1-5 12/23/2013 29801-NEKKDNF NAIL, 1-5 09/15/2014 17353-ZFUIFHA NAIL, 1-5 01/02/2015 44304-Zqbbdkkc Plate 01/02/2015 16065-Llwysjsh Plate 04/17/2015 76576-Wyygwcqk Plate 12/23/2013 75586-Qucicqvs Plate 06/01/2015 65998-Niquiknf Plate 01/01/2016 43199-Udpejozy Plate 09/15/2014 21442-Uzlrmcgi Plate 09/17/2016 12917-Ztvawmtj Plate 09/14/2018 73986-Dlupaejw Plate 12/11/2017 45130-Dwizgxop Plate 03/19/2021 88744-Ozzbmgbo Plate 11/01/2021 60460-Resgawlg Plate 08/23/2021 83392-Soegyppu Plate 05/17/2021 16598-Nztceaqs Plate 05/18/2020 76228-Diiyvjgm Plate 09/02/2019 93259-Lsluwpbj Plate 02/28/2020 54205-Jqtpszvo Plate 12/06/2019 63270-Phvnfjue Plate 02/25/2019 60993-Dpjbsbtf Plate 06/03/2019 37572-Iyhjcvvt Plate 11/26/2018 30827-Torqsnyz Plate 08/23/2024 81698-Xnddpaad Plate 02/16/2024 17086-Coozwusf Plate 04/21/2023 12436-Qdpixvvs Plate 01/30/2023 51623-Dtyguyny Plate Each Additional 32655-Izaqxblr Plate Each Additional 24939-Pfnlwdcz Plate Each Additional 11/2018 70306-Nwrcryfu Plate Each Additional 01/2020 25082-Dqicvwhv Plate Each Additional 05663-Vgglawzy Plate Each Additional 30031-Aovmjopy Plate Each Additional 33005-ZFW 01/06/2017 76266-MBY 04/03/2016 70803- Debride <25 sq cm 05/02/2016 20816- Debride <25 sq cm 10/17/2016 74437- Debride <25 sq cm 12/06/2016 74702- Debride <25 sq cm 06/01/2015 30262- Debride <25 sq cm 02/06/2017 67811-GJSKKQU SKIN/TISSUE 01/20/2017 45650-ARAZWRY SKIN/TISSUE 04/17/2016 52058 I&D ABSCESS- SIMPLE,SINGLE 022 Next Appt Details Provider Name:Charity Marquez , 11/29/2024 08:00:00 AM, [address] [place], [address], Insurance Providers Payer Name Payer Address Payer Phone Subscriber Number Group Number Insured Name Patient Relationship to Insured Coverage Start Date Coverage End Date Medicare [employer] [facility] [employer] [employer] [address] [place] [address] [id number] Adelina Tavarez Self - patient is the insured [facility] [address] [place] [id number] Adelina Tavarez Self - patient is the insured Medical (General) History Medical History History ICD Code Arthritis Back,Hip,and Knee pain Depression Fibromyalgia Headaches Osteoporosis Reflux chronic sinusitis Broken bones Bone Density - body not making anymore Surgical History Surgery Date(Month/Year) sinus surgery bladder surgery Lung biopsy 01/2015 neck surgery 02/2019 endoscopy 11/2019 Hospitalization History Reason Date(Month/Year) [facility]- Broken Wrist - right 0 01/16/2023 Stroke 08/2021 [facility] [place] For Pressure on chest - it was ac id reflux 2018
--- OUTSIDE RECORDS SUMMARY | 2024-10-14 01:36 | XMS_ITS ---
Author Organization [facility] [place] Address [address] [place] [address] Care Team Providers Care Account Liaison Hospice Name Role Phone Abby Potter Primary Care Provider Charity Castro [phone] REASON FOR VISIT Seen Sooner Encounters Encounter Location Date Provider Diagnosis [address] [address] 05/27/2024 Charity Marquez Plan Of Treatment Next Appt Details Provider Name:Charity Marquez , 11/29/2024 08:00:00 AM, [address] [place], [address], Progress Notes * Adelina TAVAREZ ADOB:[birth year] (78 yo F)Acc No.[id number]:05/27/2024 Progress Note Patient:?Adelina TAVAREZ Rohan Provider:?Charity Marquez DPM :1945???Age:78 Y???Sex:Female D ate:05/27/2024 Address:[address] [place] [address] [id number] Pcp:Abby Potter Subjective: * Chief Complaints: * ???1. Seen Sooner. * Medical History:? Objective: * Vitals:? Assessment: Plan: * Treatment: * Images: * The named appointment provid er may or may not be the originator of this progress note, and it is not deemed complete until electronically signed by the appointment provider. Sign off status: Pending * Provider:Jahaira Marquez DPM Date:?2023 Generated for Carmelina baker/[place]/Almaitting on:?10/14/2024 01:35 AM EST
--- OUTSIDE RECORDS SUMMARY | 2024-10-14 01:36 | XMS_ITS ---
Author Organization [facility] Address [address] [facility] [place] [address] Care Team Providers Care Medical Technologist Name Role Phone Abby Potter Primary Care Provider Charity Castro Unavailable [phone] Allergies Allergen (clinical drug ingredient) Drug/Non Drug [...] Painful nail(s) aggrevated by shoes causing difficulty standing/walking Medications Medication SIG (Take, Route, Frequency, Duration) Notes Start Date End Date Status Colbert 3 500 400 mg 1 capsule Orally Twice a day Not-Taking Calcium Not-Taking Flax Seed Oil Not-Hardy foster vitamin D Not-Taking Fioricet Not-Taking Doxycycline Not-Darshani ng Pazeo Not-Taking Nystatin 162374 UNIT Orally Not-Taking Crestor 10 mg Not-Hardy foster Atenolol 25 MG 1 tablet Orally Once a day Not-Taking Ammonium Lactate 12 % 1 application Externally Twice a day for 30 days Active Doxycycline Monohydrate 100 MG 1 capsule Orally Once a day for 10 days 02/20/2023 Not-Taking Penicillin V Potassium 500 MG 1 tablet Orally Twice a day for 10 day(s) 02/21/2023 Not-Taking Azithromycin 500 MG Orally 3 times a week Not-Taking Metoprolol Succinate ER Not-Taking Probiotic Active traMADol HCl ER 100 MG 1 tablet Orally Once a day PRN Active eliquis 5 mg Active Eye Drops Active Lexapro Active Atorvastatin Calcium 20 MG 1 tablet Orally Once a day for 30 day(s) Active Aciphex Not-Taking Prednisone Not-Takin g Amitiza Not-Taking Multivitamin Active Probiotic Daily Not- Taking Valium Not-Taking rifAMPin Not-Taking Ethambutol HCl Not-T aking Synthroid Not-Taking Linzess Not-Taking Fish Oil Not-Taking Ciclopirox Olamine 0.77% external Apply to effected areas twice a day for 30 days 01/02/2015 Not-Taking methylPREDNISolone N ot-Taking Indomethacin 25 MG take 1 capsule by mouth twice a day if needed for inflammation Oral for 30 Not-Taking Neurontin 100 MG Orally Not -Taking Prochlorperazine Maleate Not-Taking Social History Tobacco Use: Social History Observation Description Date Details (start date - stop date) Never Smoker NA - NA Tobacco Use/Smoking Question Answer Notes Are you a: nonsmoker Additional Findings: Tobacco Non-User Current no n-smoker Tobacco use other than smoking: Question Answer Notes Are you an other tobacco user? No Vital Signs Height 5ft in 05/24/2024 Weight 103 lbs 05/24/2024 BMI 20.11 kg/m2 05/24/2024 Procedures Procedure Date Ordered Date Performed Result Body Sit e 81988-[id number] NAIL, 6 OR MORE 05/24/2024 N/A Encounters Encounter Location Date Provider Diagnosis [facility] [place] [address] [place] [address] 05/24/2024 Charity Black Tinea unguium B35.1 ; Pain in right toe(s) M79.674 and Pain in left toe(s) M79.675 Assessments Encounter Date Diagnosis (ICD Code) Assessment Notes Treatment Notes Treatment Clinical Notes Section Notes 05/24/2024 Tinea unguium (ICD-10 - B35.1) 05/24/2024 Pain in right toe(s) (ICD-10 - M79.674) 05/24/2024 Pain in left toe(s) (ICD-10 - M79.675) Plan Of Treatment Pending Test Test Name Order Date [id number] NAIL, 6 OR MORE 05/24/2024 Next Appt Details Follow Up: prn, Reason: Provider Name:Charity Marquez , 11/29/2024 08:00:00 AM, [address] [facility], [place], [address], Procedure Notes * Category Sub-Category Detail Notes Debride Nail 6-10 Nail debridement Nail debridem ent performed extensively to reduce/remove overall nail length, girth, thickness, subungual debris, and necrotic tissue, by manual and electrical means through the use of a nail nipper and/or dremel, to more viable healthy nail plate or bed tissue 1-5. Silver nitrate used for any petechial bleeding as necessary. Patient chooses, no pharmaceutical tx (92803) Progress Notes * Adelina TAVAREZ ADOB:[birth year] (78 yo F)Acc No.[id number]:05/24/2024 Progress Note Patient:?Adelina Tavarez Provider:?Charity Marquez DPM :1945???Age:78 Y???Sex:Female D ate:05/24/2024 Address:[address] [place], [place] [address] Pcp:Abby Potter Subjective: * Chief Complaints: * ???Painful nail(s) aggrevate d by shoes causing difficulty standing/walking * HPI: ???Painful Nails:?Pt States Last PCP Visit:?Date:?04/27/2024 * Medical History:? * Surgical History:?sinus surg adelso bladder surgery Lung biopsy 01/2015neck surgery 02/2019endoscopy 11/2019 * Hospitalization/Major Diagno stic [place] [place] Pressure on chest - it was acid reflux 2018Stroke 08/2021[facility]- Broken Wrist - right 01/16/2023 * Family History:?Mother: dece ased.?Father: , diagnosed with Other malignant neoplasm of unspecified site.?Paternal Grand Mother: cancer.? * Social History:?Tobacco Use:?Tobacco Use/Smoking?Are you a:?nonsmoker ?Additional Findings: Tobacco Non-User?Current non-smoker ?Tobacco use other than smoking?Are you an other tobacco user??No * Medications:?TakingMultivita min Atorvastatin Calcium 20 MG [...] times a weekMetoprolol Succinate ER Pazeo Nystatin 180995 UNIT Tablet Orally Crestor 10 mg Atenolol 25 MG Tablet 1 tablet Orally Once a dayDoxycycline Colbert 3 500 400 mg Capsule 1 capsule [...] Metoprolol Succinate ER Not-Taking/PRN Pazeo Not-Taking/PRN Nystatin 129586 UNIT Tablet Orally Not-Taking/PRN Crestor 10 mg Not-Taking/PRN Atenolol 25 MG Tablet 1 tablet Orally Once a dayNot-Taking/PRN Doxycycline Not-Taking/PRN Colbert 3 500 400 mg Capsule 1 capsule [...] rash,dermatitisyes[Allergies Verified] Objective: * Vitals:?Ht: 5ft, Wt: 103, BM I: 20.11, Shoe size: 5-6, Ht-cm: 152.4 cm, Wt-k.72 kg. * Examination: ???Nails: ?NAILS are:?Elongated, overgrown, dystrophic, lytic, greater than 3mm thick, discolored and friable with crumbly malodorous subungual debris, with pain on palpation , , 1-5 Left foot , T9 , T5.? Assessment: * Assessment: 1.?Tinea unguium - B35.1?2.? Pain in right toe(s) - M79.674?3.?Pain in left toe(s) - M79.675? Plan: * Treatment: * Procedures:?Debride Nail 6-10:?Nail debridement?Nail debridement performed extensively to reduce/remove overall nail length, girth, thickness, subungual debris, and necrotic tissue, by manual and electrical means through the use of a nail nipper and/or dremel, to more viable healthy nail plate or bed tissue 1-5. Silver nitrate used for any petechial bleeding as necessary. Patient chooses, no pharmaceutical tx (64556).? * Procedure Codes:?66244 DEBRI DE NAIL, 6 OR MORE, Modifiers: XS * Follow Up:?prn * Images: * Sign off status: Completed true * Provider:?Charity Marquez DPM Date:?2023 Generated for Carmelina baker/[place]/Almaitting on:?10/14/2024 01:35 AM EST History and Physical Notes * HPI (History of Present Illness) Category Sub-Category Detail Notes Category Not es Painful Nails Pt States Last PCP Visit: Date:: 04/27/2024 Examination Category Sub-Category Detail Notes Category Not es Nails NAILS are: Elongated, overg rown, dystrophic, lytic, greater than 3mm thick, discolored and friable with crumbly malodorous subungual debris, with pain on palpation , , 1-5 Left foot , T9 , T5
== END 2024-10-13 11:35 | disposition home or self-care (01) ==
LOC: HO.HMCH 11:15
PROVIDERS: PCP Internal Medicine
DX: R05.3 Chronic cough (principal)

== ENCOUNTER 2024-10-19 10:35 | Outpatient (AMB) | payer MEDICARE, OTHER, SELFPAY ==
[2024-10-19 10:40] VITALS: BP 118/62; PULSE 74; O2SAT 97; BMI 21.5
--- NOTE | 2024-10-19 10:40 | MHC.PC.OV ---
Vital Signs 10/19/24 10:40 Height 5 ft Weight 110 lb BMI 21.5 BP 118/62 Blood Pressure Location Lt brachial Position Sitting Pulse 74 Pulse Source Pulse Oximeter Pulse Oximetry (%) 97 Oxygen Delivery Method Room Air Intake Visit Reasons: Anxiety Allergies naproxen [From NAPROSYN] Allergy (Severe, Verified 10/19/24 10:40) sensitivity niacin [From NIASPAN EXTENDED-RELEASE] Allergy (Severe, Verified 10/19/24 10:40) Rash clarithromycin [From BIAXIN] Allergy (Mild, Verified 10/19/24 10:40) sensitivity codeine [CODEINE] Allergy (Mild, Verified 10/19/24 10:40) Itching esomeprazole [From Nexium] Allergy (Mild, Verified 10/19/24 10:40) Hives fluconazole [From DIFLUCAN] Allergy (Mild, Verified 10/19/24 10:40) sensitivity gatifloxacin [From TEQUIN] Allergy (Mild, Verified 10/19/24 10:40) sensitivity hydrocodone [From Vicodin] Allergy (Mild, Verified 10/19/24 10:40) Rash levofloxacin [From Levaquin] Allergy (Mild, Verified 10/19/24 10:40) sensitivity oxycodone [From Percocet] Allergy (Mild, Verified 10/19/24 10:40) Itching quinidine [QUINIDINE] Allergy (Mild, Verified 10/19/24 10:40) sensitivity Sulfa (Sulfonamide Antibiotics) [SULFA (SULFONAMIDE ANTIBIOTICS)] Allergy (Mild, Verified 10/19/24 10:40) Rash terfenadine [From SELDANE] Allergy (Mild, Verified 10/19/24 10:40) sensitivity tetracycline [TETRACYCLINE] Allergy (Mild, Verified 10/19/24 10:40) sensitivity cefaclor [From CECLOR] Adverse Reaction (Severe, Verified 10/19/24 10:40) Unknown abaloparatide [From Tymlos] Adverse Reaction (Intermediate, Verified 10/19/24 10:40) Dizziness cefdinir Adverse Reaction (Intermediate, Verified 10/19/24 10:40) Stomach Upset montelukast [From Singulair] Adverse Reaction (Mild, Verified 10/19/24 10:40) Headache topiramate [From TOPAMAX] Adverse Reaction (Mild, Verified 10/19/24 10:40) Stomach Upset Tobacco use date assessed: 10/13/24 Fall risk assessment: No Falls in past year Last assessed Fall Risk: 10/19/24 Dental Screening Dental Screen Date: 10/13/24 HPI Anxiety HPI Details The patient is a 78-year-old female presenting with ptosis of the left eye. She reports the condition has persisted for several months, causing significant irritation and difficulty keeping the eye open. She describes a structural droop of the eyelid affecting her vision. The patient has consulted with Dr. Beal, who diagnosed the condition as a droopy eyelid necessitating surgical correction. However, surgical intervention has been deferred due to her current anticoagulation therapy with Eliquis, which poses a risk for bleeding. Previous cataract surgery was uneventful regarding bleeding, as it did not involve major blood vessels. Despite this, concerns for bleeding remain for eyelid surgery. The patient discussed the need to temporarily discontinue Eliquis, understanding the associated risk of stroke during that period. Additionally, the patient's vision remains blurry despite cataract correction, and she reports difficulty reading, which may result from her drooping eyelid. She has been managing increased frustration and anxiety, for which she has been prescribed a medication with an advised dose to be used episodically, acknowledging its potential for sedation and dependency. [facility] Medical History Sinus congestion Cough Weight loss Polyarthralgia Fall Shoulder pain, right Back pain Nausea Palpitation Headache, post-traumatic, acute Scalp irritation Anemia Encounter for vitamin deficiency screening Renal cyst Dense breast Breast cancer screening by mammogram Acute bronchitis Ocular migraine Hyperlipidemia History of CVA (cerebrovascular accident) (~2020) Tubular adenoma of colon (~2005) SERG (obstructive sleep apnea) Nasal vestibulitis Degeneration, intervertebral disc, cervical Dry eye PONV (postoperative nausea and vomiting) Arthritis of neck Cerebral microvascular disease Atherosclerotic cardiovascular disease Precordial chest pain URI (upper respiratory infection) Overactive bladder Microscopic hematuria Urinary urgency Osteoporosis (~1999) Mycobacterial disease GERD (gastroesophageal reflux disease) Pulmonary nodules COPD (chronic obstructive pulmonary disease) Surgical History History of fusion of cervical spine History of sinus surgery History of colonoscopy History of esophagogastroduodenoscopy (EGD) History of bladder suspension procedure Family History Son No problems noted. Social History Household Members: Spouse Housing: Condominium Do you presently have visiting nurse or other home services: No Alcohol intake: never Patient Tobacco Use Status: Never used Tobacco Tobacco use type: Cigarette Years Smoked: parent and smoker e-Cigarette/Vaping Use: Never Used Second Hand Smoke Exposure: Yes Advance Directives Date on File: 08/16/20 service: No Current occupational status: retired Current occupation: right hand Cognitive needs: No Hearing needs: Yes (hearing aides) Vision needs: Yes (Glasses) Questionnaire PHQ-9 Over the last 2 weeks, how often have you been bothered by any of the following problems? 1. Little interest or pleasure in doing things: several days 2. Feeling down, depressed, or hopeless: several days 3. Trouble falling or staying asleep, or sleeping too much: not at all 4. Feeling tired or having little energy: not at all 5. Poor appetite or overeating: not at all 6. Feeling bad about yourself - or that you are a failure or have let yourself or your family down: not at all 7. Trouble concentrating on things, such as reading the newspaper or watching television: not at all 8. Moving or speaking so slowly that other people could have noticed. Or the opposite - being so fidgety or restless that you have been moving around a lot more than usual: not at all 9. Thoughts that you would be better off or of hurting yourself in some way: not at all Total score: 2 Depression Screening Interpretation: Negative Depression Screening Done: Yes Source: Developed by Drs. Augie Espinoza, Yue Griffin, Michael Gallo and colleagues, with an educational aniya from [employer]. Thrive Questionnaire Date Thrive assessed: 10/13/24 AUDIT C Alcohol Use Questionnaire (AUDIT-C) 1. How often do you have a drink containing alcohol?: Never Total Score: 0 SAVANNAH-7 AMB Questionnaire SAVANNAH-7 Date SAVANNAH - 7 assessed: 10/19/24 Feeling nervous, anxious, or on edge: 2 = More than half the days Not being able to stop or control worryin = More than half the days Worrying too much about different things: 2 = More than half the days Trouble relaxin = Several days Being so restless that it is hard to sit still: 1 = Several days Becoming easily annoyed or irritable: 2 = More than half the days Feeling afraid as if something awful might happen: 1 = Several days Total SAVANNAH-7 score (0-4 normal; 5-9 mild; 10-14 moderate; 15-21 severe): 11 Source: Developed by Drs. Augie Espinoza, Yue Griffin, Michael Gallo and colleagues, with an educational aniya from [employer]. SAVANNAH-7 Assessment Billing SAVANNAH-7 Assessment Tool: SAVANNAH-7 Assessment 38312 Physical exam (Primary Care) Vital Signs: Last Vital Signs Pulse 74 10/19/24 10:40 BP 118/62 10/19/24 10:40 Pulse Ox 97 10/19/24 10:40 Oxygen Delivery Method Room Air 10/19/24 10:40 BMI result Body Mass Index 21.5 Tobacco/Smoking Status: Tobacco use Status Tobacco use date assessed 10/13/24 10/19/24 10:41 Patient Tobacco Use Status Never used Tobacco 10/19/24 10:41 Tobacco use type Cigarette 10/19/24 10:41 e-Cigarette/Vaping Use Never Used 10/19/24 10:41 PHQ-9: PHQ-9 Score PHQ-9: Total score 2 10/19/24 12:13 Depression Screening Interpretation: Negative Thrive Assessment: Date of Thrive Assessment Date Thrive assessed 10/13/24 10/19/24 10:41 Const General: alert; No acute distress Eyes Conjunctivae: conjunctivae normal Resp Auscultation: clear to auscultation bilaterally Cardio Rate: regular rate Rhythm: regular rhythm GI Inspection: Yes normal to inspection Extrem General: Yes normal to inspection and No edema Coding Level of Care Code Est Pt Level 3 (86457) Diagnoses Generalized anxiety disorder F41.1 Ptosis of left eyelid H02.402 Laterality: left Additional Codes SAVANNAH-7 Assessment Billing - SAVANNAH-7 Assessment Tool: SAVANNAH-7 Assessment 51364 ([id number]) Assessment & Plan Assessment & Plan (1) Generalized anxiety disorder: Code(s): F41.1 - Generalized anxiety disorder Category: Medical (2) Droopy eyelid: Comment: left eye Code(s): H02.409 - Unspecified ptosis of unspecified eyelid Category: Medical Qualifiers: Laterality: left Qualified Code(s): H02.402 - Unspecified ptosis of left eyelid Plan - Discuss the risks and benefits of temporarily discontinuing Eliquis for eyelid surgery, including the potential risk of stroke and bleeding. - Consider alternate strategies to manage ptosis if surgical intervention and anticoagulation cessation pose unacceptable risks. - Prescribe an anxiolytic medication on an as-needed basis for anxiety related to the ptosis condition, while advising the patient of its potential sedative effects and risk of dependency. - Advise the patient to avoid driving or signing important documents while under the influence of the prescribed anxiolytic medication. - Ensure the patient is informed about the importance of monitoring for any signs of bleeding or stroke during any potential interruption of Eliquis. Medications: New alprazolam 0.5 mg PO BEDTIME PRN 7 tabs 0RF sleep F41.1 - Generalized anxiety disorder
--- OUTSIDE RECORDS SUMMARY | 2024-10-19 10:45 | XMS_ITS ---
Author Organization [facility] Address [address] [place] [address] Care Team Providers Care Welfare Officer Name Role Phone Abby Potter MD Primary Care Provider Nadine Tai Unavailable [phone] REASON FOR VISIT rethinking colonoscopy Encounters Encounter Location Date Provider Diagnosis [facility] [address] [place] [address] 08/26/2024 Nadine Braga PLAN OF TREATMENT No Information
--- OUTSIDE RECORDS SUMMARY | 2024-10-19 10:46 | XMS_ITS | Patient Health Record ---
Author Organization [facility] Address [address] [place] [address] Care Team Providers Care Database Marketing Manager Name Role Phone Abby Potter MD Primary Care Provider Nadine Tai Unavailable [phone] ALLERGIES Allergen (clinical drug ingredient) Drug/Non Drug [...] Esophageal reflux (K21.9) Active confirmed Esophageal reflux (699481765) Problem Encounter for screening for malignant neoplasm of colon (Z12.11) Active confirmed [id number] Problem History of adenomatous polyp of colon (Z86.010) Active confirmed History of adenomatous polyp of colon (122411986) Problem Gastroesophageal reflux disease without esophagitis (K21.9) Active confirmed 049431559 Problem Gastroesophageal reflux disease, esophagitis presence not specified (K21.9) Active confirmed 973796482 Problem Hiatal hernia (K44.9) Active confirmed Hiatal hernia (76935223) Problem 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) Active confirmed 346662155 Problem Constipation, unspecified constipation type (K59.00) Active confirmed 96473047 Problem Aspiration into airway, initial encounter (T17.908A) Active confirmed 743724617 Problem Irritable bowel syndrome with constipation (K58.1) Active confirmed 118700276 Problem Left upper quadrant abdominal pain (R10.12) Active confirmed 290135030 VITAL SIGNS Temperature 98.4 degrees Fahrenheit 08/25/2024 Blood pressure diastolic 00 mm Hg 08/25/2024 Height 60 in 08/25/2024 Blood pressure systolic 000 mm Hg 08/25/2024 Weight 110 lb 4 oz lbs 08/25/2024 BMI 21.53 kg/m2 08/25/2024 Encounters Encounter Location Date Provider Diagnosis [facility] [address] [place] [address] 08/25/2024 Nadine Braga Gastroesophageal ref lux disease, esophagitis presence not specified K21.9 ; Constipation, unspecified constipation type K59.00 and Irritable bowel syndrome with constipation K58.1 [facility] [address] [place] [address] 08/26/2024 Nadine Braga ASSESSMENTS Encounter Date Diagnosis [...] OF [place] [address] [place] [address] [id number] TIMMY NAVARRO Self - patient is the insured [employer] [address] [place] [address] [id number] TIMMY NAVARRO Self - patient is the insured MEDICAL (GENERAL) HISTORY Medical History History ICD Code Colon polyps-2 tubular adeno mas removed in 2005-mild diverticulosis, int/ext hemorrhoids GERD-EGD in 2005-minimal HH- -no esophagitis/Tony's, duodenal bx neg for celiac disease; EGD in 11/2019 with a small HH and no esophagitis nor Tony's esophagus Bronchiectasis--sees Dr. Lino at [facility]--had a bronchoscopy in 02/2014 Mild COPD No AL, DM, Renal disease Neg. colonoscopy in 06/2014 e xcept sigmoid diverticulosis and internal hemorrhoids IBS with constipation Lung nodules Colonoscopy in 11/2019 with a small tubul ar adenoma and melanosis coli Neg. GB U/S in 01/2018 Kidney stone CVA-2021--no residual Surgical History Surgery Date(Month/Year) Sinus surgery Bladder suspension surgery C-spine--at [facility] 02/15/2018
--- OUTSIDE RECORDS SUMMARY | 2024-10-19 10:46 | XMS_ITS ---
Author Organization [facility] Address [address] [place] [address] Care Team Providers Care Pathology Tech Name Role Phone Abby Potter MD Primary Care Provider Unavailletty e Nadine Braga Unavailable [phone] ALLERGIES Allergen (clinical drug ingredient) Drug/Non Drug [...] 08/25/2024 Encounters Encounter Location Date Provider Diagnosis [facility] [address] [place] [address] 08/25/2024 Nadine Braga Gastroesophageal ref lux disease, [...]
--- OUTSIDE RECORDS SUMMARY | 2024-10-19 10:46 | XMS_ITS ---
[facility] Organization [facility] Address [address] [place] [address] Care Team Providers Care Geodetic Advisor Name Role Phone Abby Potter Primary Care Provider Charity Castro Unavailable [phone] Allergies Allergen (clinical drug ingredient) Drug/Non Drug [...] Duration) Notes Start Date End Date Status [place] 3 500 400 mg 1 capsule Orally Twice a day Not-Taking Calcium Not-Taking Flax Seed Oil Not-Hardy foster vitamin D Not-Taking Fioricet Not-Taking Doxycycline Not-Darshani ng Pazeo Not-Taking Nystatin 219701 UNIT Orally Not-Taking Crestor 10 mg Not-Hardy [...] Ordered Date Performed Result Body Sit e 11161-UYFRFGD NAIL, 6 OR MORE 05/24/2024 N/A Encounters Encounter Location Date Provider Diagnosis [facility] [place] [address] [place] [address] 05/24/2024 Charity Black Tinea unguium B35.1 ; [...] Treatment Pending Test Test Name Order Date 48768-KYDDEFQ NAIL, 6 OR MORE 05/24/2024 Next Appt Details Follow Up: prn, Reason: Provider Name:Charity Marquez , 11/29/2024 08:00:00 AM, [address] [facility], [place], [address], Procedure Notes * Category Sub-Category Detail Notes [...] as necessary. Patient chooses, no pharmaceutical tx (47799) Progress Notes * Adelina TAVAREZ ADOB:[birth year] (78 yo F)Acc No.[id number]:05/24/2024 Progress Note Patient:?Adelina Tavarez Provider:?Charity Marquez DPM :1945???Age:78 Y???Sex:Female D ate:05/24/2024 Address:[address] [place], [place] [address] Pcp:Abby Potter Subjective: * Chief Complaints: * ???Painful nail(s) aggrevate d by shoes causing difficulty standing/walking * HPI: ???Painful Nails:?Pt States Last PCP Visit:?Date:?04/27/2024 * Medical History:? * Surgical History:?sinus surg adelso bladder surgery Lung biopsy 01/2015neck surgery 02/2019endoscopy 11/2019 * Hospitalization/Major Diagno stic Procedure:?[facility] [place] [facility] For Pressure on chest - it was acid reflux 2018Stroke 08/2021[facility]- Broken Wrist - right 01/16/2023 * [...] times a weekMetoprolol Succinate ER Pazeo Nystatin 593306 UNIT Tablet Orally Crestor 10 mg Atenolol 25 MG Tablet 1 tablet Orally Once a dayDoxycycline [place] 3 500 400 mg Capsule 1 capsule [...] Metoprolol Succinate ER Not-Taking/PRN Pazeo Not-Taking/PRN Nystatin 935304 UNIT Tablet Orally Not-Taking/PRN Crestor 10 mg Not-Taking/PRN Atenolol 25 MG Tablet 1 tablet Orally Once a dayNot-Taking/PRN Doxycycline Not-Taking/PRN [place] 3 500 400 mg Capsule 1 capsule [...] as necessary. Patient chooses, no pharmaceutical tx (09208).? * Procedure Codes:?83432 DEBRI DE NAIL, 6 OR MORE, Modifiers: XS * Follow Up:?prn * Images: * Sign off status: Completed true * Provider:?Charity Marquez DPM Date:?2023 Generated for Carmelina baker/Quincy/Almaitting on:?10/19/2024 10:46 AM EST History and Physical Notes * [...]
--- OUTSIDE RECORDS SUMMARY | 2024-10-19 10:46 | XMS_ITS ---
Author Organization [facility] Address [address] [place] [address] Care Team Providers Care Certified Medical Biller Name Role Phone Abby Potter Primary Care Provider Charity Castro [phone] REASON FOR VISIT Seen Sooner Encounters Encounter Location Date Provider Diagnosis [address] [address] 05/27/2024 Charity Marquez Plan Of Treatment Next Appt Details Provider Name:Charity Marquez , 11/29/2024 08:00:00 AM, [address] [place], [address], Progress Notes * Adelina TAVAREZ ADOB:[birth year] (78 yo F)Acc No.[id number]:05/27/2024 Progress Note Patient:?Adelina TAVAREZ Rohan Provider:?Charity Marquez DPM :1945???Age:78 Y???Sex:Female D ate:05/27/2024 Address:[address] [place] [address] [id number] Pcp:Abby Potter Subjective: * Chief Complaints: * [...] DPM Date:?2023 Generated for Carmelina baker/Quincy/Almaitting on:?10/19/2024 10:45 AM EST
--- OUTSIDE RECORDS SUMMARY | 2024-10-19 10:46 | XMS_ITS ---
Author Organization [facility] Address [address] [place] [address] Care Team Providers Care Felting Machine Operator Helper Name Role Phone Abby Potter Primary Care Provider Charity Castro Unavailable [phone] Allergies Allergen (clinical drug ingredient) Drug/Non Drug [...] Once a day Not-Taking Doxycycline Not-Takjonathan samuel [place] 3 500 400 mg 1 capsule Orally Twice a day Not-Taking Calcium Not-Taking Nystatin 782836 UNIT Orally Not-Taking Pazeo Not-Taking Social History [...] Ordered Date Performed Result Body Sit e 54696-TCWICCC NAIL, 6 OR MORE 08/23/2024 N/A 66284-Ohuwruhk Plate 08/23/2024 N/A Encounters Encounter Location Date Provider Diagnosis [facility] [place] [address] [place] [address] 08/23/2024 Charity Black Tinea unguium B35.1 ; [...] Treatment Pending Test Test Name Order Date 04742-LOYPVEG NAIL, 6 OR MORE 08/23/2024 68134-Kxpbheje Plate 08/23/2024 Next Appt Details Follow Up: 2 Weeks,prn, Reas on: Provider Name:Charity Marquez , 11/29/2024 08:00:00 AM, [address] [place] [address], [address], Procedure Notes * Category Sub-Category Detail Notes [...] Motrin was recommended for pain or discomfort (54110) , Pt DEFERS matricectomy Anesthesia was accomplished [...] use of a nail nipper and/or dremel-type precision thread grinder operator, to a more viable healthy nail plate or bed tissue 6-10. Silver nitrate used for any petechial bleeding as necessary. Definitive antifungal treatment options have been reviewed and discussed with the patient. The patient chooses, no pharmaceutical tx - 31969 Progress Notes * Adelina TAVAREZ ADOB:[birth year] (78 yo F)Acc No.[id number]:08/23/2024 Progress Note Patient:Adelina Da Silva Provider:?Charity Marquez DPM :1945???Age:78 Y???Sex:Female D ate:08/23/2024 Address:[address] [place], [place] [id number] Pcp:Abby Potter Subjective: * Chief Complaints: * ???Painful nail(s) aggrevate d by shoes causing difficulty standing/walkingIngrown Nail * HPI: ???Painful Nails:?Pt States Last PCP Visit:?Date:?04/27/2024 * Medical History:? * Surgical History:?sinus surg adelso bladder surgery Lung biopsy 01/2015neck surgery 02/2019endoscopy 11/2019 * Hospitalization/Major Diagno stic Procedure:?[facility] ER For Pressure on chest - it was acid reflux 2018Stroke 08/2021[facility]- Broken Wrist - right 01/16/2023 * [...] yes, walking. ?Marital status: . 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 * Medications:?TakingMultivita min Atorvastatin Calcium 20 MG [...] times a weekMetoprolol Succinate ER Pazeo Nystatin 985070 UNIT Tablet Orally Crestor 10 mg Atenolol 25 MG Tablet 1 tablet Orally Once a dayDoxycycline [place] 3 500 400 mg Capsule 1 capsule [...] Metoprolol Succinate ER Not-Taking/PRN Pazeo Not-Taking/PRN Nystatin 582429 UNIT Tablet Orally Not-Taking/PRN Crestor 10 mg Not-Taking/PRN Atenolol 25 MG Tablet 1 tablet Orally Once a dayNot-Taking/PRN Doxycycline Not-Taking/PRN [place] 3 500 400 mg Capsule 1 capsule [...] - L60.0? Plan: * Treatment: 2.?Ingrown nail?Procedure: 11850-Pkpkhyvh Plate * Procedures:?Debride Nail 6-10:?Nail debridement?Performance of this nail treatment by a nonprofessional would put this patients foot and overall health at risk. Therefore, nail debridement was performed extensively to reduce/remove overall nail length, girth, thickness, subungual debris, and necrotic tissue, by manual and/or electrical means through the use of a nail nipper and/or dremel-type precision thread grinder operator, to a more viable healthy nail plate or bed tissue 6-10. Silver nitrate used for any petechial bleeding as necessary. Definitive antifungal treatment options have been reviewed and discussed with the patient. The patient chooses, no pharmaceutical tx - 71555.?Nail Avulsion:?Location?Medial nail border, T2, ?.?Anesthesia?was accomplished TOPICALLY [...] Motrin was recommended for pain or discomfort (45935) , Pt DEFERS matricectomy.? * Procedure Codes:?05533 DEBRI DE NAIL, 6 OR MORE, Modifiers: XS 54209 Avulsion Plate, Modifiers: T1 * Follow Up:?2 Weeks,prn * Images: * Sign off status: Completed true * Provider:?Charity Marquez DPM Date:?2023 Generated for Carmelina baker/Quincy/eTransmitting on:?10/19/2024 10:45 AM EST History and Physical Notes * [...]
--- OUTSIDE RECORDS SUMMARY | 2024-10-19 10:46 | XMS_ITS | Patient Health Record ---
Author Organization [facility] Address [address] [place] [address] Care Team Providers Care Tree Surgeon Helper Name Role Phone Abby Potter Primary Care Provider UnavailCharity Wasserman Unavailable [phone] Allergies Allergen (clinical drug ingredient) Drug/Non Drug [...] inflammation Oral for 30 Not-Taking Probiotic Active [place] 3 500 400 mg 1 capsule Orally Twice a day Not-Taking vitamin D Not-Taking Fioricet Not-Taking Calcium Not-Taking Flax Seed Oil Not- cristian Nystatin 434154 UNIT Orally Not-Taking Prednisone Not-Takin g Crestor [...] Problem Acquired hammer toe of right foot (7859444830754898) Other hammer toe(s) (acquired), right foot (M20.41) Active confirmed Problem Tinea unguium (248978064) Tinea unguium (B35.1) Active confirmed Problem Acquired hammer toe of left foot (6978696994939235) Other hammer toe(s) (acquired), left foot (M20.42) Active confirmed Problem Acquired hallux valgus (76056390) Hallux valgus (acquired), right foot (M20.11) Active confirmed Problem Localized, primary osteoarthritis of the ankle and/or foot (394619508) Arthritis of joint of lesser toe, left (M19.072) Active confirmed Problem Localized, primary osteoarthritis of the ankle and/or foot (617515749) Arthritis of joint of lesser toe, right (M19.071) Active confirmed Vital Signs Heart Rate 73 /min 02/16/2024 Height 5ft in 08/23/2024 Weight 105 lbs 08/23/2024 BMI 20.5 kg/m2 08/23/2024 Procedures Procedure Date Ordered Date Performed Result Body Sit e 80069-LMPMFEP NAIL, 6 OR MORE 11/24/2023 N/A 65729-JEXAYFG NAIL, 6 OR MORE 02/16/2024 N/A 97398-Cxzywjjn Plate 02/16/2024 N/A 84785-SZRQQUI NAIL, 6 OR MORE 05/24/2024 N/A 55786-MLMIDVU NAIL, 6 OR MORE 08/23/2024 N/A 48399-Vvhzjnzh Plate 08/23/2024 N/A Encounters Encounter Location Date Provider Diagnosis [address] [address] 11/24/2023 Charity Black Tinea unguium B35.1 ; Xerosis of skin L85.3 ; Pain in right toe(s) M79.674 and Pain in left toe(s) M79.[address] [address] 02/16/2024 Charity Black Xerosis of skin L85.3 ; Ingrown nail L60.0 ; Tinea unguium B35.1 ; Pain in right toe(s) M79.674 and Pain in left toe(s) M79.[address] [address] 05/24/2024 Charity Black Tinea unguium B35.1 ; Pain in right toe(s) M79.674 and Pain in left toe(s) M79.[address] [address] 08/23/2024 Charity Black Tinea unguium B35.1 ; Pain in right toe(s) M79.674 ; Pain in left toe(s) M79.675 and Ingrown nail L60.0 [facility] [address] [address] 05/24/2024 Charity Marquez Assessments Encounter Date Diagnosis [...] Treatment Pending Test Test Name Order Date 87315-DJDPFOX NAIL, 6 OR MORE 02/14/2014 77696-CDIYESR NAIL, 6 OR MORE 04/03/2016 71125-XVPXHPS NAIL, 6 OR MORE 08/01/2016 75398-YLEODHS NAIL, 6 OR MORE 02/06/2017 11526-FOLHBCX NAIL, 6 OR MORE 03/05/2017 86300-QTKYRRE NAIL, 6 OR MORE 06/09/2017 66114-RBQORSF NAIL, 6 OR MORE 09/11/2017 13872-YQJXSUO NAIL, 6 OR MORE 12/11/2017 40352-ZQSMBKK NAIL, 6 OR MORE 03/12/2018 86729-BJNFETY NAIL, 6 OR MORE 06/11/2018 06244-QWMTVDL NAIL, 6 OR MORE 09/14/2018 90850-RVTHXIE NAIL, 6 OR MORE 11/26/2018 40484-MOBTRPH NAIL, 6 OR MORE 02/25/2019 72583-ZGJMRUL NAIL, 6 OR MORE 06/03/2019 95045-YIHGFFX NAIL, 6 OR MORE 09/02/2019 12944-SZPJUUB NAIL, 6 OR MORE 12/06/2019 75653-CGXHATF NAIL, 6 OR MORE 02/28/2020 33787-VESZULJ NAIL, 6 OR MORE 05/18/2020 61946-VEGLUFU NAIL, 6 OR MORE 07/25/2020 53143-RLZMUAG NAIL, 6 OR MORE 10/19/2020 46364-PBCWGWD NAIL, 6 OR MORE 01/15/2021 03843-CNKXIQB NAIL, 6 OR MORE 03/19/2021 18368-FYDTYMI NAIL, 6 OR MORE 05/17/2021 38561-GWZBWAL NAIL, 6 OR MORE 08/23/2021 70839-OYGCKSW NAIL, 6 OR MORE 11/01/2021 04642-NPTYNBM NAIL, 6 OR MORE 01/14/2022 84123-SQOQKMJ NAIL, 6 OR MORE 04/22/2022 73380-TSNXYYX NAIL, 6 OR MORE 08/06/2022 66808-BPCUKKZ NAIL, 6 OR MORE 10/24/2022 46494-UXWQTMG NAIL, 6 OR MORE 01/30/2023 53417-JYCAOQJ NAIL, 6 OR MORE 04/21/2023 95131-SSMHUGD NAIL, 6 OR MORE 07/14/2023 37702-VIFFQPU NAIL, 6 OR MORE 11/24/2023 08222-YGBRBPC NAIL, 6 OR MORE 02/16/2024 54628-ABVKLAW NAIL, 6 OR MORE 05/24/2024 06440-LHTOXQQ NAIL, 6 OR MORE 08/23/2024 30209-ISXFOVD NAIL, 1-5 10/17/2016 66791-PAAWIOU NAIL, 1-5 12/06/2016 85609-SYBCZEC NAIL, 1-5 01/01/2016 51855-PKWVOLU NAIL, 1-5 09/04/2015 48002-UXKKPSY NAIL, 1-5 04/17/2015 70569-QEAOTBH NAIL, 1-5 06/01/2015 16252-MYIQQVD NAIL, 1-5 12/23/2013 73556-HINUKNO NAIL, 1-5 09/15/2014 78017-EBNHOWV NAIL, 1-5 01/02/2015 19706-Ootznbmt Plate 01/02/2015 55279-Kjtijiig Plate 04/17/2015 20304-Bbmzkhee Plate 12/23/2013 88038-Tmkffbix Plate 06/01/2015 97414-Tlspwgnm Plate 01/01/2016 21041-Obpgocvd Plate 09/15/2014 87626-Pzkdkyac Plate 09/17/2016 28569-Sagzvdjh Plate 09/14/2018 25755-Vkykvfwh Plate 12/11/2017 46622-Iitoqzwf Plate 03/19/2021 53747-Hoaajcnl Plate 11/01/2021 11890-Upebdnzy Plate 08/23/2021 08036-Iuqkcujy Plate 05/17/2021 87386-Oshkmouk Plate 05/18/2020 11831-Khapgukj Plate 09/02/2019 78390-Izjjojyv Plate 02/28/2020 75724-Xmygjira Plate 12/06/2019 74433-Rbfigjui Plate 02/25/2019 65292-Oxrdiyxq Plate 06/03/2019 26674-Xgqebayj Plate 11/26/2018 41733-Ufzcwgrv Plate 08/23/2024 89759-Ulnaobak Plate 02/16/2024 01779-Vnlubufe Plate 04/21/2023 84795-Lwmdvikc Plate 01/30/2023 41837-Ogovjirj Plate Each Additional 59268-Lzzhqevq Plate Each Additional 72818-Lufymjrq Plate Each Additional 11/2018 00293-Grfceabh Plate Each Additional 01/2020 07869-Lkpktzzr Plate Each Additional 31688-Kyczgsxz Plate Each Additional 36378-Ihyqvznp Plate Each Additional 55570-XPB 01/06/2017 12070-CBJ 04/03/2016 15389- Debride <25 sq cm 05/02/2016 08326- Debride <25 sq cm 10/17/2016 05495- Debride <25 sq cm 12/06/2016 44659- Debride <25 sq cm 06/01/2015 68430- Debride <25 sq cm 02/06/2017 40638-SBCGMLG SKIN/TISSUE 01/20/2017 31795-CPLIWMH SKIN/TISSUE 04/17/2016 73077 I&D ABSCESS- SIMPLE,SINGLE 022 Next Appt Details Provider Name:Charity Marquez , 11/29/2024 08:00:00 AM, [address] [place], [address], Insurance Providers Payer Name Payer Address Payer Phone Subscriber Number Group Number Insured Name Patient Relationship to Insured Coverage Start Date Coverage End Date Medicare [facility] [employer] [address] [facility] [place] [place] [address] [id number] Adelina Tavarez Self - patient is the insured [facility] [address] SA[place] Rodriguez [id number] [phone] [id number] Adelina Tavarez Self - patient is the insured Medical (General) History Medical History History ICD Code Arthritis Back,Hip,and Knee pain Depression Fibromyalgia Headaches Osteoporosis Reflux chronic sinusitis Broken bones Bone Density - body not making anymore Surgical History Surgery Date(Month/Year) sinus surgery bladder surgery Lung biopsy 01/2015 neck surgery 02/2019 endoscopy 11/2019 Hospitalization History Reason Date(Month/Year) [facility]- Broken Wrist - right 0 01/16/2023 Stroke 08/2021 [facility] For Pressure on chest - it was ac id reflux 2018
== END 2024-10-19 12:48 | disposition home or self-care (01) ==
PROVIDERS: PCP Internal Medicine; Visit Provider Internal Medicine
DX: F41.1 Generalized anxiety disorder (principal); H02.402 Unspecified ptosis of left eyelid

== ENCOUNTER → 2024-10-19 10:35 | Outpatient (BNVA) | payer MEDICARE, OTHER, SELFPAY | PROVIDERS: PCP Internal Medicine; Visit Provider Internal Medicine | DX: F41.1 Generalized anxiety disorder (principal); H02.402 Unspecified ptosis of left eyelid; Z79.01 Long term (current) use of anticoagulants | CPT/HCPCS: 96127; 99212 ==

== ENCOUNTER 2024-11-25 10:36 | Outpatient (AMB) | payer MEDICARE, OTHER, SELFPAY ==
--- NOTE | 2024-11-25 10:49 | A.OFFPC_ITS ---
Intake Visit Reasons: Urgency Allergies naproxen [From NAPROSYN] Allergy (Severe, Verified 11/25/24 10:50) sensitivity niacin [From NIASPAN EXTENDED-RELEASE] Allergy (Severe, Verified 11/25/24 10:50) Rash clarithromycin [From BIAXIN] Allergy (Mild, Verified 11/25/24 10:50) sensitivity codeine [CODEINE] Allergy (Mild, Verified 11/25/24 10:50) Itching esomeprazole [From Nexium] Allergy (Mild, Verified 11/25/24 10:50) Hives fluconazole [From DIFLUCAN] Allergy (Mild, Verified 11/25/24 10:50) sensitivity gatifloxacin [From TEQUIN] Allergy (Mild, Verified 11/25/24 10:50) sensitivity hydrocodone [From Vicodin] Allergy (Mild, Verified 11/25/24 10:50) Rash levofloxacin [From Levaquin] Allergy (Mild, Verified 11/25/24 10:50) sensitivity oxycodone [From Percocet] Allergy (Mild, Verified 11/25/24 10:50) Itching quinidine [QUINIDINE] Allergy (Mild, Verified 11/25/24 10:50) sensitivity Sulfa (Sulfonamide Antibiotics) [SULFA (SULFONAMIDE ANTIBIOTICS)] Allergy (Mild, Verified 11/25/24 10:50) Rash terfenadine [From SELDANE] Allergy (Mild, Verified 11/25/24 10:50) sensitivity tetracycline [TETRACYCLINE] Allergy (Mild, Verified 11/25/24 10:50) sensitivity cefaclor [From CECLOR] Adverse Reaction (Severe, Verified 11/25/24 10:50) Unknown abaloparatide [From Tymlos] Adverse Reaction (Intermediate, Verified 11/25/24 10:50) Dizziness cefdinir Adverse Reaction (Intermediate, Verified 11/25/24 10:50) Stomach Upset montelukast [From Singulair] Adverse Reaction (Mild, Verified 11/25/24 10:50) Headache topiramate [From TOPAMAX] Adverse Reaction (Mild, Verified 11/25/24 10:50) Stomach Upset Tobacco use date assessed: 11/25/24 Fall risk assessment: No Falls in past year Last assessed Fall Risk: 11/25/24 Dental Screening Dental Screen Date: 11/25/24 Did you have a dental visit in the last 12 months?: Yes Did you have a dental problem in the last 6 months where you did not have access to dental care?: No Was dental information given to patient?: Patient has dentist HPI Urgency HPI Details went to Dr. Harrison decline antibiotic treatment- The patient is a 79-year-old female presenting with urinary incontinence, which she suspects may be related to an infection. She reports experiencing an urge to urinate, and at times, if she does not reach the bathroom promptly, she experiences involuntary urine leakage. She has been wearing a pad due to these episodes. There has been no burning sensation upon urination reported. She initially attempted to provide a urine sample at Dr. Harrison's office, though not enough was collected. The urine sample has been sent for further testing to help identify a possible infection, but no immediate results are available. Without conclusive results, the care team has not prescribed antibiotics yet. The patient's symptoms have persisted without any resolution, prompting today's consultation. - Genitourinary: Reports urge incontinen ce; denies burning sensation during urination. [facility] Medical History Sinus congestion Cough Weight loss Polyarthralgia Fall Shoulder pain, right Back pain Nausea Palpitation Headache, post-traumatic, acute Scalp irritation Anemia Encounter for vitamin deficiency screening Renal cyst Dense breast Breast cancer screening by mammogram Acute bronchitis Ocular migraine Hyperlipidemia History of CVA (cerebrovascular accident) (~2020) Tubular adenoma of colon (~2005) SERG (obstructive sleep apnea) Nasal vestibulitis Degeneration, intervertebral disc, cervical Dry eye PONV (postoperative nausea and vomiting) Arthritis of neck Cerebral microvascular disease Atherosclerotic cardiovascular disease Precordial chest pain URI (upper respiratory infection) Overactive bladder Microscopic hematuria Urinary urgency Osteoporosis (~1999) Mycobacterial disease GERD (gastroesophageal reflux disease) Pulmonary nodules COPD (chronic obstructive pulmonary disease) Surgical History History of fusion of cervical spine History of sinus surgery History of colonoscopy History of esophagogastroduodenoscopy (EGD) History of bladder suspension procedure Family History Son No problems noted. Social History Household Members: Spouse Housing: Condominium Do you presently have visiting nurse or other home services: No Alcohol intake: never Patient Tobacco Use Status: Never used Tobacco Tobacco use type: Cigarette Years Smoked: parent and smoker e-Cigarette/Vaping Use: Never Used Second Hand Smoke Exposure: Yes Advance Directives Date on File: 08/16/20 service: No Current occupational status: retired Current occupation: right hand Cognitive needs: No Hearing needs: Yes (hearing aides) Vision needs: Yes (Glasses) Questionnaire PHQ-9 Over the last 2 weeks, how often have you been bothered by any of the following problems? 1. Little interest or pleasure in doing things: several days 2. Feeling down, depressed, or hopeless: several days 3. Trouble falling or staying asleep, or sleeping too much: not at all 4. Feeling tired or having little energy: not at all 5. Poor appetite or overeating: not at all 6. Feeling bad about yourself - or that you are a failure or have let yourself or your family down: not at all 7. Trouble concentrating on things, such as reading the newspaper or watching television: not at all 8. Moving or speaking so slowly that other people could have noticed. Or the opposite - being so fidgety or restless that you have been moving around a lot more than usual: not at all 9. Thoughts that you would be better off or of hurting yourself in some way: not at all Total score: 2 Depression Screening Interpretation: Negative Depression Screening Done: Yes Source: Developed by Drs. Augie Espinoza, Yue Griffin, Michael Gallo and colleagues, with an educational aniya from [employer]. Thrive Questionnaire Date Thrive assessed: 11/25/24 I am a: Patient What is your living situation today?: I have a steady place to live Within the past 12 months, did the food you bought not last and you didn't have the money to get more?: Never true Within the past 12 months, did you worry whether your food would run out before you got money to buy more?: Never true Do you have trouble paying for medicines?: No Do you have trouble getting transportation to medical appointments?: No Do you have trouble paying your heating and electricity bill?: No Do you have trouble taking care of your child, family member or friend?: No Do you have trouble with day-to-day activities such as bathing, preparing meals, shopping, managing finances, etc.?: No Are you currently unemployed and looking for a job?: No Are you interested in more education?: No Currently or been in a relationship where the following occur: No concerns reported THRIVE Score: 0 AUDIT C Alcohol Use Questionnaire (AUDIT-C) 1. How often do you have a drink containing alcohol?: Never Total Score: 0 SAVANNAH-7 AMB Questionnaire SAVANNAH-7 Date SAVANNAH - 7 assessed: 11/25/24 Feeling nervous, anxious, or on edge: 2 = More than half the days Not being able to stop or control worryin = More than half the days Worrying too much about different things: 2 = More than half the days Trouble relaxin = Several days Being so restless that it is hard to sit still: 1 = Several days Becoming easily annoyed or irritable: 2 = More than half the days Feeling afraid as if something awful might happen: 1 = Several days Total SAVANNAH-7 score (0-4 normal; 5-9 mild; 10-14 moderate; 15-21 severe): 11 Source: Developed by Drs. Augie Espinoza, Yue Griffin, Michael Gallo and colleagues, with an educational aniya from [employer]. SAVANNAH-7 Assessment Billing SAVANNAH-7 Assessment Tool: SAVANNAH-7 Assessment 59811 Physical exam (Primary Care) Tobacco/Smoking Status: Tobacco use Status Tobacco use date assessed 11/25/24 11/25/24 10:54 Patient Tobacco Use Status Never used Tobacco 11/25/24 10:54 Tobacco use type Cigarette 11/25/24 10:54 e-Cigarette/Vaping Use Never Used 11/25/24 10:54 PHQ-9: PHQ-9 Score PHQ-9: Total score 2 11/25/24 10:54 Depression Screening Interpretation: Negative Thrive Assessment: Date of Thrive Assessment Date Thrive assessed 11/25/24 11/25/24 10:54 Currently or been in a relationship where the following occur: No concerns reported Telehealth Telehealth Telehealth Platform: Telephone Location of provider rendering services: practice address Location of patient: address on file Patient Identification confirmed using: Name, : Yes Telehealth method: voice only Patient verbally consented to treatment: Yes Patient verbally consented to billing insurance company: Yes Patient informed of any privacy concerns related to visit: Yes Minutes spent on Phone/Video with Pt.: 15 Coding Level of Care Code Tele Est Pt Level 3 (39090) Diagnoses Dysuria R30.0 Additional Codes SAVANNAH-7 Assessment Billing - SAVANNAH-7 Assessment Tool: SAVANNAH-7 Assessment 83298 ([id number]) Assessment & Plan Assessment & Plan (1) Dysuria: Code(s): R30.0 - Dysuria Category: Medical Plan: advised to get the urine tested (2) Dysuria: Code(s): R30.0 - Dysuria Category: Medical Plan - Collect additional urine sample to confirm the presence of a urinary tract infection UTI). - Await results from complete urinalysis and sensitivity testing once obtained. - Consider antibiotic therapy upon confirmation of a UTI. During our conversation, we discussed the likely cause of the patient?s urinary symptoms, focusing on the possibility of a urinary tract infection. We reviewed the importance of providing an adequate urine sample for accurate testing, including urinalysis and culture, to determine the appropriate treatment. I emphasized the need for patience awaiting the laboratory results from Dr. Harrison's office. The potential necessity of antibiotic therapy was discussed, pending test results indicating infection. I reassured the patient that follow- up would occur once results were obtained. - Please provide an additional urine sample for testing as soon as possible. - Continue monitoring symptoms and use pads as needed for urinary leakage. - Drink plenty of fluids. - Contact the office if symptoms worsen or new symptoms arise. - Await further instructions once urine test results are available.
== END 2024-11-25 12:06 | disposition home or self-care (01) ==
LOC: HO.HMCH 10:36
PROVIDERS: PCP Internal Medicine; Visit Provider Internal Medicine
DX: R30.0 Dysuria (principal)

== ENCOUNTER 2024-11-25 11:14 | Outpatient (AMB) | payer MEDICARE, OTHER, SELFPAY ==
--- NOTE | 2024-11-25 11:31 | AM.OFFVISNUR ---
Intake Visit Reasons: Microgen Allergies naproxen [From NAPROSYN] Allergy (Severe, Verified 11/25/24 10:50) sensitivity niacin [From NIASPAN EXTENDED-RELEASE] Allergy (Severe, Verified 11/25/24 10:50) Rash clarithromycin [From BIAXIN] Allergy (Mild, Verified 11/25/24 10:50) sensitivity codeine [CODEINE] Allergy (Mild, Verified 11/25/24 10:50) Itching esomeprazole [From Nexium] Allergy (Mild, Verified 11/25/24 10:50) Hives fluconazole [From DIFLUCAN] Allergy (Mild, Verified 11/25/24 10:50) sensitivity gatifloxacin [From TEQUIN] Allergy (Mild, Verified 11/25/24 10:50) sensitivity hydrocodone [From Vicodin] Allergy (Mild, Verified 11/25/24 10:50) Rash levofloxacin [From Levaquin] Allergy (Mild, Verified 11/25/24 10:50) sensitivity oxycodone [From Percocet] Allergy (Mild, Verified 11/25/24 10:50) Itching quinidine [QUINIDINE] Allergy (Mild, Verified 11/25/24 10:50) sensitivity Sulfa (Sulfonamide Antibiotics) [SULFA (SULFONAMIDE ANTIBIOTICS)] Allergy (Mild, Verified 11/25/24 10:50) Rash terfenadine [From SELDANE] Allergy (Mild, Verified 11/25/24 10:50) sensitivity tetracycline [TETRACYCLINE] Allergy (Mild, Verified 11/25/24 10:50) sensitivity cefaclor [From CECLOR] Adverse Reaction (Severe, Verified 11/25/24 10:50) Unknown abaloparatide [From Tymlos] Adverse Reaction (Intermediate, Verified 11/25/24 10:50) Dizziness cefdinir Adverse Reaction (Intermediate, Verified 11/25/24 10:50) Stomach Upset montelukast [From Singulair] Adverse Reaction (Mild, Verified 11/25/24 10:50) Headache topiramate [From TOPAMAX] Adverse Reaction (Mild, Verified 11/25/24 10:50) Stomach Upset Nursing Note Patient presents to office for microgen testing. Patient to provide sample and will be sent to lab. Patient understood and agreeable
== END 2024-11-25 11:39 | disposition home or self-care (01) ==
LOC: HO.HUSH 11:14
PROVIDERS: PCP Internal Medicine; Visit Provider Nurse Practitioner Family
DX: R30.0 Dysuria (principal); N32.81 Overactive bladder; N39.0 Urinary tract infection, site not specified

== ENCOUNTER 2024-11-25 12:00 | Outpatient (REF) | payer MEDICARE, OTHER, SELFPAY ==
[2024-11-25 14:04] LABS: Appearance Urine Turbid; Color Urine Yellow; Glucose Urine UA Negative (Negative); Leukocyte Esterase Urine Moderate (2+) (Negative); Nitrite Urine Negative (Negative); PH 5.5 (5.0-9.0); UMIC TRIGGER UACC YES; Urine Blood Large (3+) (Negative); Urine Ketones Trace mg/dL (Negative); Urine Protein 300 (3+) mg/dL (Neg-Trace)
[2024-11-25 14:06] LABS: Bacteria Urine None Seen (None Seen); Hyaline Casts Urine 0-2 /LPF (0-2); RBC Urine >20 /HPF (0-2); Squamous Epithelial Cell Urine 0-2 /HPF (0-2); UACC Culture Trigger YES; WBC Urine >50 /HPF (0-5)
== END 2024-11-25 12:01 | disposition home or self-care (01) ==
LOC: HO.LNP 12:00
PROVIDERS: PCP Internal Medicine; Visit Provider Internal Medicine
DX: R30.0 Dysuria (principal); N39.41 Urge incontinence
CPT/HCPCS: 81001; 81003; 87086; 96127

== ENCOUNTER 2024-12-01 08:36 | Outpatient (REF) | payer MEDICARE, OTHER, SELFPAY ==
--- OUTSIDE RECORDS SUMMARY | 2024-12-01 08:58 | XMS_ITS | Patient Health Record ---
Author Organization [facility] Address [address] [place] [address] Care Team Providers Care Environmental Field Team Member Name Role Phone Abby Potter MD Primary Care Provider Nadine Tai Unavailable [phone] ALLERGIES Allergen (clinical drug ingredient) Drug/Non Drug [...] Esophageal reflux (K21.9) Active confirmed Esophageal reflux (992925741) Problem Encounter for screening for malignant neoplasm of colon (Z12.11) Active confirmed [id number] Problem History of adenomatous polyp of colon (Z86.010) Active confirmed History of adenomatous polyp of colon (655689393) Problem Gastroesophageal reflux disease without esophagitis (K21.9) Active confirmed 958175483 Problem Gastroesophageal reflux disease, esophagitis presence not specified (K21.9) Active confirmed 969159732 Problem Hiatal hernia (K44.9) Active confirmed Hiatal hernia (02285095) Problem 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) Active confirmed 445710667 Problem Constipation, unspecified constipation type (K59.00) Active confirmed 26861530 Problem Aspiration into airway, initial encounter (T17.908A) Active confirmed 653302299 Problem Irritable bowel syndrome with constipation (K58.1) Active confirmed 700323668 Problem Left upper quadrant abdominal pain (R10.12) Active confirmed 422551198 VITAL SIGNS Temperature 98.4 degrees Fahrenheit 08/25/2024 Blood pressure diastolic 00 mm Hg 08/25/2024 Height 60 in 08/25/2024 Blood pressure systolic 000 mm Hg 08/25/2024 Weight 110 lb 4 oz lbs 08/25/2024 BMI 21.53 kg/m2 08/25/2024 Encounters Encounter Location Date Provider Diagnosis [facility] [address] [place] [address] 08/25/2024 Nadine Braga Gastroesophageal ref lux disease, esophagitis presence not specified K21.9 ; Constipation, unspecified constipation type K59.00 and Irritable bowel syndrome with constipation K58.1 [facility] [address] [place] [address] 08/26/2024 Nadine Braga ASSESSMENTS Encounter Date Diagnosis [...] OF [place] [address] [place] [address] [id number] TIMMY NAVARRO Self - patient is the insured [employer] [address] [place] [address] [id number] TIMMY NAVARRO Self - patient is the insured MEDICAL (GENERAL) HISTORY Medical History History ICD Code Colon polyps-2 tubular adeno mas removed in 2005-mild diverticulosis, int/ext hemorrhoids GERD-EGD in 2005-minimal HH- -no esophagitis/Tony's, duodenal bx neg for celiac disease; EGD in 11/2019 with a small HH and no esophagitis nor Tony's esophagus Bronchiectasis--sees Dr. Lino at [facility]--had a bronchoscopy in 02/2014 Mild COPD No CO, DM, Renal disease Neg. colonoscopy in 06/2014 e xcept sigmoid diverticulosis and internal hemorrhoids IBS with constipation Lung nodules Colonoscopy in 11/2019 with a small tubul ar adenoma and melanosis coli Neg. GB U/S in 01/2018 Kidney stone CVA-2021--no residual Surgical History Surgery Date(Month/Year) Sinus surgery Bladder suspension surgery C-spine--at [facility] 02/15/2018
--- OUTSIDE RECORDS SUMMARY | 2024-12-01 08:58 | XMS_ITS | Encounter Summary ---
Author Organization [facility] Address [address] [place] [address] Care Team Providers Care Yoga Coordinator Name Role Phone Lavell Marcos MD Primary Care Provider [phone] Jennifer Sylvester MD Primary Care Provider [phone] [facility], Pcp Primary Care Provider Unavailabl e Encounter Details Date Type Department Care Team Description 01/01/2021 Old Medical Records Medical Records [address] [place] [address] Abstract, Provider Social History Tobacco Use Types Packs/Day Years Used Date Smoking Tobacco: Never Smokeless Tobacco: Never Alcohol Use Standard Drinks/Week Comments No 0 (1 standard drink = 0.6 oz pur e alcohol) Sex Assigned at Date Recorded Not on file Job Start Date Occupation Industry Not on file Not on file Not on file documented as of this encounter Plan of Treatment Not on file documented as of this encounter Visit Diagnoses Not on filedocumented in this encounter Care Teams Yoga Coordinator Relationship Specialty Start Date End Date Lavell Marcos MD [address] [place] [phone] PCP - General 04/06/07 02/08/21 Jennifer Sylvester MD [address] [place] [address] PCP - General Internal Medicine 02/09/21 01/22/23 [facility], Pcp [address] [place] [address] PCP - General Internal Medicine 01/23/23 documented as of this encounter
--- OUTSIDE RECORDS SUMMARY | 2024-12-01 08:59 | XMS_ITS | Encounter Summary ---
Author Organization [facility] Address [address] [place] [address] Care Team Providers Care Computer Customer Support Specialist Name Role Phone Lavell Marcos MD Primary Care Provider [phone] Jennifer Sylvester MD Primary Care Provider [phone] [facility], Pcp Primary Care Provider [facility] Encounter Details Date Type Department Care Team Description 05/11/2020 Textile Dyer Report Medical Records [address] [place] [address] Abstract, Provider Social History Tobacco Use Types [...] on filedocumented in this encounter Care Teams Computer Customer Support Specialist Relationship Specialty Start Date End Date Lavell Marcos MD [address] [place] [phone] PCP - General 04/06/07 02/08/21 Jennifer Sylvester MD [address] [place] [address] [phone] PCP - General Internal Medicine 02/09/21 01/22/23 [facility], Pcp [address] [place] [address] PCP - General Internal Medicine 01/23/23 documented as of this encounter
--- OUTSIDE RECORDS SUMMARY | 2024-12-01 08:59 | XMS_ITS | Encounter Summary ---
Author Organization [facility] Address [address] [place] [address] Care Team Providers Care Drill Press Hand Name Role Phone Lavell Marcos MD Primary Care Provider [phone] Jennifer Sylvester MD Primary Care Provider [phone] [facility], Pcp Primary Care Provider Unavailabl e Encounter Details Date Type Department Care Team Description 03/17/2015 Release of Information Medical Records [address] [place], [place] [id number] Abstract, Provider Social History Tobacco Use Types [...] on filedocumented in this encounter Care Teams Drill Press Hand Relationship Specialty Start Date End Date Lavell Marcos MD [address] [place] [address] PCP - General 04/06/07 02/08/21 Jennifer Sylvester MD [address] [place] [address] [phone] PCP - General Internal Medicine 02/09/21 01/22/23 [facility], Pcp [address] [place] [address] 29339 PCP - General Internal Medicine 01/23/23 documented as of this encounter
--- OUTSIDE RECORDS SUMMARY | 2024-12-01 08:59 | XMS_ITS | Encounter Summary ---
Author Organization [facility] Address [address] [place] [address] Care Team Providers Care Warp Coiler Name Role Phone Lavell Marcos MD Primary Care Provider Jennifer Sylvester MD Primary Care Provider [phone] [facility], Pcp Primary Care Provider Unavailabl e Encounter Details Date Type Department Care Team Description 04/05/2020 Expert Medical Writer Report Medical Records [address] [place] [address] Raj Hardwick MD Social History Tobacco Use Types Packs/Day Years [...] on filedocumented in this encounter Care Teams Warp Coiler Relationship Specialty Start Date End Date Lavell Marcos MD [address] [place] [address] PCP - General 04/06/07 02/08/21 Jennifer Sylvester MD [address] [place] [address] 53866 PCP - General Internal Medicine 02/09/21 01/22/23 [facility], Pcp [address] [place] [address] 79704 PCP - General Internal Medicine 01/23/23 documented as of this encounter
--- OUTSIDE RECORDS SUMMARY | 2024-12-01 08:59 | XMS_ITS | Encounter Summary ---
Author Organization [facility] Address [address] [place] [address] Care Team Providers Care Completion Supervisor Name Role Phone Lavell Marcos MD Primary Care Provider [phone] Jennifer Sylvester MD Primary Care Provider [phone] [facility], Pcp Primary Care Provider Unavailabl e Encounter Details Date Type Department Care Team Description 02/07/2020 Audit Intern Report Medical Records [address] [place] [address] Raj Hardwick MD Social History Tobacco Use [...] on filedocumented in this encounter Care Teams Completion Supervisor Relationship Specialty Start Date End Date Lavell Marcos MD [address] [place] [address] 86406 PCP - General 04/06/07 02/08/21 Jennifer Sylvester MD [address] [place] [address] 65995 PCP - General Internal Medicine 02/09/21 01/22/23 [facility], Pcp [address] [place] [address] 259[address] PCP - General Internal Medicine 01/23/23 documented as of this encounter
--- OUTSIDE RECORDS SUMMARY | 2024-12-01 08:59 | XMS_ITS | Encounter Summary ---
Author Organization [facility] Address [address] [place] [address] Care Team Providers Care Mattress Packer Name Role Phone Lavell Marcos MD Primary Care Provider Jennifer Sylvester MD Primary Care Provider [phone] [facility], Pcp Primary Care [facility] Encounter Details Date Type Department Care Team Description 04/24/2015 Sccm Administrator Report Medical Records [address] [place] [address] Idalia Benito MD Social History Tobacco Use Types Packs/Day [...] on filedocumented in this encounter Care Teams Mattress Packer Relationship Specialty Start Date End Date Lavell Marcos MD [address] [place] [address] PCP - General 04/06/07 02/08/21 Jennifer Sylvester MD [address] [place] [address] 98[address] PCP - General Internal Medicine 02/09/21 01/22/23 [facility], Pcp [address] [place] [address] 98044 PCP - General Internal Medicine 01/23/23 documented as of this encounter
--- OUTSIDE RECORDS SUMMARY | 2024-12-01 08:59 | XMS_ITS | Encounter Summary ---
Author Organization [facility] Address [address] [place] [address] Care Team Providers Care Cabinet Finisher Name Role Phone Lavell Marcos MD Primary Care Provider [phone] Jennifer Sylvester MD Primary Care Provider [phone] [facility], Pcp Primary Care Provider Unavailabl e Encounter Details Date Type Department Care Team Description 04/10/2020 Fisher Trot Line Report Medical Records [address] [place] [address] Johnna Serna MD Social History Tobacco Use Types Packs/Day [...] on filedocumented in this encounter Care Teams Cabinet Finisher Relationship Specialty Start Date End Date Lavell Marcos MD [address] [place] [address] PCP - General 04/06/07 02/08/21 Jennifer Sylvester MD [address] [place] [address] 91166 PCP - General Internal Medicine 02/09/21 01/22/23 [facility], Pcp [address] [place] [address] 29972 PCP - General Internal Medicine 01/23/23 documented as of this encounter
--- OUTSIDE RECORDS SUMMARY | 2024-12-01 08:59 | XMS_ITS ---
Author Organization [facility] Address [address] [place] [address] Care Team Providers Care Pickle Solution Maker Name Role Phone Abby Potter MD Primary Care Provider UnavailNadine Skinner Unavailable [phone] ALLERGIES Allergen (clinical drug ingredient) Drug/Non Drug [...] 08/25/2024 Encounters Encounter Location Date Provider Diagnosis [facility] [address] [place] [address] 08/25/2024 Nadine Braga Gastroesophageal ref lux disease, [...]
--- OUTSIDE RECORDS SUMMARY | 2024-12-01 08:59 | XMS_ITS | Encounter Summary ---
Author Organization [facility] Address [address] [place] [address] Care Team Providers Care Neonatal Critical Care Nurse Name Role Phone Lavell Marcos MD Primary Care Provider [phone] Jennifer Sylvester MD Primary Care Provider [phone] [facility], Pcp Primary Care Provider Unavailabl e Encounter Details Date Type Department Care Team Description 05/30/2020 Coin Machine Collector Supervisor Report Medical Records [address] [place] [address] Reji White MD [address] [place] [address] Social History Tobacco Use Types Packs/Day Years [...] on filedocumented in this encounter Care Teams Neonatal Critical Care Nurse Relationship Specialty Start Date End Date Lavell Marcos MD [address] [place] [address] PCP - General 04/06/07 02/08/21 Jennifer Sylvester MD [address] [place] [address] PCP - General Internal Medicine 02/09/21 01/22/23 [facility], Pcp [address] [place] [phone] PCP - General Internal Medicine 01/23/23 documented as of this encounter
--- OUTSIDE RECORDS SUMMARY | 2024-12-01 08:59 | XMS_ITS ---
Author Organization [facility] Address [address] [place] [address] Care Team Providers Care Chemical Milling Processor Name Role Phone Abby Potter MD Primary Care Provider Nadine Tai Unavailable [phone] REASON FOR VISIT rethinking colonoscopy Encounters Encounter Location Date Provider Diagnosis [facility] [address] [place] [address] 08/26/2024 Nadine Braga PLAN OF TREATMENT No Information
--- OUTSIDE RECORDS SUMMARY | 2024-12-01 08:59 | XMS_ITS | Encounter Summary ---
Author Organization [facility] Address [address] [place] [address] Care Team Providers Care Family Day Care Provider Name Role Phone Lavell Marcos MD Primary Care Provider [phone] Jennifer Sylvester MD Primary Care Provider [phone] [facility], Pcp Primary Care Provider Unavailabl e Encounter Details Date Type Department Care Team Description 01/21/2020 Fudger Report Medical Records [address] [place] [address] Eduardo Lino MD Social History Tobacco Use Types Packs/Day [...] on filedocumented in this encounter Care Teams Family Day Care Provider Relationship Specialty Start Date End Date Lavell Marcos MD [address] [place] [address] 32696 PCP - General 04/06/07 02/08/21 Jennifer Sylvester MD [address] [place] [address] 42008 PCP - General Internal Medicine 02/09/21 01/22/23 [facility], Pcp [address] [place] [address] PCP - General Internal Medicine 01/23/23 documented as of this encounter
--- OUTSIDE RECORDS SUMMARY | 2024-12-01 08:59 | XMS_ITS | Encounter Summary ---
Author Organization [facility] Address [address] [place] [address] Care Team Providers Care Hospital Account Liaison Name Role Phone Lavell Marcos MD Primary Care Provider [phone] Jennifer Sylvester MD Primary Care Provider [phone] [facility], Pcp Primary Care Provider Unavailabl e Encounter Details Date Type Department Care Team Description 03/09/2020 Cork Tipper Report Medical Records [address] [place] [address] Rafat Gregorio MD Social History Tobacco Use Types Packs/Day [...] on filedocumented in this encounter Care Teams Hospital Account Liaison Relationship Specialty Start Date End Date Lavell Marcos MD [address] [place] [address] PCP - General 04/06/07 02/08/21 Jennifer Sylvester MD [address] [place] [address] 61508 PCP - General Internal Medicine 02/09/21 01/22/23 [facility], Pcp [address] [place] [address]64 PCP - General Internal Medicine 01/23/23 documented as of this encounter
--- OUTSIDE RECORDS SUMMARY | 2024-12-01 08:59 | XMS_ITS | Encounter Summary ---
Author Organization [facility] Address [address] [place] [address] Care Team Providers Care Machine Clothing Replacer Name Role Phone Lavell Marcos MD Primary Care Provider Jennifer Sylvester MD Primary Care Provider [phone] [facility], Pcp Primary Care Provider Unavailabl e Encounter Details Date Type Department Care Team Description 05/25/2020 Rough Rice Tender Report Medical Records [address] [place] [address] Eduardo Lino MD Social History Tobacco Use [...] on filedocumented in this encounter Care Teams Machine Clothing Replacer Relationship Specialty Start Date End Date Lavell Marcos MD [address] [place] [address] PCP - General 04/06/07 02/08/21 Jennifer Sylvester MD [address] [place] [address] 41851 PCP - General Internal Medicine 02/09/21 01/22/23 [facility], Pcp [address] [place] [address] 34280 PCP - General Internal Medicine 01/23/23 documented as of this encounter
--- OUTSIDE RECORDS SUMMARY | 2024-12-01 08:59 | XMS_ITS | Encounter Summary ---
Author Organization [facility] Address [address] [place] [address] Care Team Providers Care Non Licensed Nuclear Plant Operator Name Role Phone Lavell Marcos MD Primary Care Provider [phone] Jennifer Sylvester MD Primary Care Provider [phone] [facility], Pcp Primary Care Provider Unavailabl e Reason for Visit * Reason Onset Date Comments Faxed Refill 12/08/2018 Encounter Details Date Type Department Care Team Description 12/08/2018 Refill Pulmonology - [address] [place] [address] Eduardo Lino MD Faxed Refill Social History Tobacco Use Types Packs/Day Years [...] on filedocumented in this encounter Care Teams Non Licensed Nuclear Plant Operator Relationship Specialty Start Date End Date Lavell Marcos MD [address] [place] [address] PCP - General 04/06/07 02/08/21 Jennifer Sylvester MD [address] [place] [address] 21321 PCP - General Internal Medicine 02/09/21 01/22/[address] [address] PCP - General Internal Medicine 01/23/23 documented as of this encounter
--- OUTSIDE RECORDS SUMMARY | 2024-12-01 09:00 | XMS_ITS | Encounter Summary ---
Author Organization [facility] Address [address] [place] [address] Care Team Providers Care Director Of Creative Services Name Role Phone Lavell Marcos MD Primary Care Provider [phone] Jennifer Sylvester MD Primary Care Provider [phone] [facility], Pcp Primary Care Provider Unavailabl e Encounter Details Date Type Department Care Team Description 12/29/2018 Transfer Records Medical Records [address] [place] [address] [place] [address] [place] [address] Social History Tobacco Use Types Packs/Day Years [...] on filedocumented in this encounter Care Teams Director Of Creative Services Relationship Specialty Start Date End Date Lavell Marcos MD [address] [place] [address] PCP - General 04/06/07 02/08/21 Jennifer Sylvester MD [address] [place] [address] 93256 PCP - General Internal Medicine 02/09/21 01/22/23 [facility], Pcp [address] [place] [address] 25326 PCP - General Internal Medicine 01/23/23 documented as of this encounter
--- OUTSIDE RECORDS SUMMARY | 2024-12-01 09:00 | XMS_ITS | Encounter Summary ---
Author Organization [facility] Address [address] [place] [address] Care Team Providers Care Stoner Out Name Role Phone Lavell Marcos MD Primary Care Provider [phone] Jennifer Sylvester MD Primary Care Provider [phone] [facility], Pcp Primary Care Provider Unavailabl e Encounter Details Date Type Department Care Team Description 12/10/2018 Compliance Advisor Report Medical Records [address] [place] [address] Rafat Gregorio MD Social History Tobacco Use [...] on filedocumented in this encounter Care Teams Stoner Out Relationship Specialty Start Date End Date Lavell Marcos MD [address] [place] [address] PCP - General 04/06/07 02/08/21 Jennifer Sylvester MD [address] [place] [address]206 PCP - General Internal Medicine 02/09/21 01/22/23 [facility], Pcp [address] [place] [address]259 PCP - General Internal Medicine 01/23/23 documented as of this encounter
--- OUTSIDE RECORDS SUMMARY | 2024-12-01 09:00 | XMS_ITS | Encounter Summary ---
Author Organization [facility] Address [address] [place] [address] Care Team Providers Care Bronc Breaker Name Role Phone Lavell Marcos MD Primary Care Provider [phone] Jennifer Sylvester MD Primary Care Provider [phone] [facility], Pcp Primary Care Provider Unavailabl e Reason for Visit * Reason Onset Date Comments TEST RESULTS 11/10/2018 Encounter Details Date Type Department Care Team Description 11/10/[address] [facility] Medicine - [address] [phone] Luis Miguel Gomez MD TEST RESULTS Social History Tobacco Use Types Packs/Day Years Used Date Smoking Tobacco: Never Smokeless Tobacco: Never Alcohol Use Standard Drinks/Week Comments No 0 (1 standard drink = 0.6 oz pur e alcohol) Sex Assigned at Date Recorded Not on file Job Start Date Occupation Industry Not on file Not on file Not on file documented as of this encounter Miscellaneous Notes * Telephone Encounter - Sarah Cisneros RN - 11/10/2018 1:20 PM EST IMPRESSION IMPRESSION: Moderate cervical spondylosis See below * Telephone Encounter - Francoise Sharp - 11/10/2018 1:12 PM EST Pt calling inquiring about test results from visit on 11/09/18. Please review and advise documented in this encounter Plan of Treatment Not on file documented as of this encounter Visit Diagnoses Not on filedocumented in this encounter Care Teams Bronc Breaker Relationship Specialty Start Date End Date Lavell Marcos MD [address] [place] [address] PCP - General 04/06/07 02/08/21 Jennifer Sylvester MD [address] [place] [address] 97498 PCP - General Internal Medicine 02/09/21 01/22/[address] [address] PCP - General Internal Medicine 01/23/23 documented as of this encounter
--- OUTSIDE RECORDS SUMMARY | 2024-12-01 09:00 | XMS_ITS | Encounter Summary ---
Author Organization [facility] Address [address] [place] [address] Care Team Providers Care Jackspooler Name Role Phone Lavell Marcos MD Primary Care Provider [phone] Jennifer Sylvester MD Primary Care Provider [phone] [facility], Pcp Primary Care Provider [facility] e Encounter Details Date Type Department Care Team Description 11/28/2011 Diversional Therapist Report Medical Records [address] [place] [address] Sam Alcala Social History Tobacco Use Types Packs/Day Years Used Date Smoking Tobacco: Never Alcohol Use Standard Drinks/Week Comments Not Asked 0 (1 standard drink = 0.6 oz pur e alcohol) Sex Assigned at Date Recorded Not on file Job Start Date Occupation Industry Not on file Not on file Not on file documented as of this encounter Plan of Treatment Not on file documented as of this encounter Visit Diagnoses Not on filedocumented in this encounter Care Teams Jackspooler Relationship Specialty Start Date End Date Lavell Marcos MD [address] [place] [address]94 PCP - General 04/06/07 02/08/21 Jennifer Sylvester MD [address] [place] [address] [phone] PCP - General Internal Medicine 02/09/21 01/22/23 [facility], Pcp [address] [place] [address] 42048 PCP - General Internal Medicine 01/23/23 documented as of this encounter
--- OUTSIDE RECORDS SUMMARY | 2024-12-01 09:01 | XMS_ITS | Encounter Summary ---
Author Organization [facility] Address [address] [place] [address] Care Team Providers Care Special Education Professional Name Role Phone Lavell Marcos MD Primary Care Provider [phone] Jennifer Sylvester MD Primary Care Provider [phone] [facility], Pcp Primary Care Provider [facility] e Encounter Details Date Type Department Care Team Description 11/27/2018 Pt. Non Urgent Medic al Question Adult Medicine [address] [address] Luis Miguel Gomez MD Social History Tobacco Use Types Packs/Day [...] on filedocumented in this encounter Care Teams Special Education Professional Relationship Specialty Start Date End Date Lavell Marcos MD [address] [place] [address] 24460 PCP - General 04/06/07 02/08/21 Jennifer Sylvester MD [address] [place] [address] [phone] PCP - General Internal Medicine 02/09/21 01/22/23 [facility], Pcp [address] [place] [address] 117[address] PCP - General Internal Medicine 01/23/23 documented as of this encounter
--- OUTSIDE RECORDS SUMMARY | 2024-12-01 09:01 | XMS_ITS | Encounter Summary ---
Author Organization [facility] Address [address] [place] [address] Care Team Providers Care Demo Event Specialist Name Role Phone Lavell Marcos MD Primary Care Provider [phone] Jennifer Sylvester MD Primary Care Provider [phone] [facility], Pcp Primary Care Provider [facility] Encounter Details Date Type Department Care Team Description 11/26/2018 Pt. Non Urgent Medic al Question Adult Medicine [address] [phone] Luis Miguel Gomez MD Social History Tobacco Use Types Packs/Day Years Used Date Smoking Tobacco: Never Smokeless Tobacco: Never Alcohol Use Standard Drinks/Week Comments No 0 (1 standard drink = 0.6 oz pur e alcohol) Sex Assigned at Date Recorded Not on file Job Start Date Occupation Industry Not on file Not on file Not on file documented as of this encounter Progress Notes * Sarah Cisneros RN - 11/26/2018 4:40 PM ESTFrom: Adelina Tavarez To: Luis Miguel Gomez MD Sent: 11/26/2018 4:05 PM EST Subject: Pain meds Luis Miguel Marcos and Bradly nuñez on vac Advil is not cutting it brand name INDOCIN works but I???m not comfortable with the side effects is there some thing I could take for the pain MRI scheduled for tomorrow Thanks Adelina Tavarez documented in this encounter Plan of Treatment Not on file documented as of this encounter Visit Diagnoses Not on filedocumented in this encounter Care Teams Demo Event Specialist Relationship Specialty Start Date End Date Lavell Marcos MD [address] [place] [address] PCP - General 04/06/07 02/08/21 Jennifer Sylvester MD [address] [place] [address]237 PCP - General Internal Medicine 02/09/21 01/22/23 [facility], [address] [address] PCP - General Internal Medicine 01/23/23 documented as of this encounter
--- OUTSIDE RECORDS SUMMARY | 2024-12-01 09:01 | XMS_ITS | Encounter Summary ---
Author Organization [facility] Address [address] [place] [address] Care Team Providers Care Cma Or Lpn Name Role Phone Lavell Marcos MD Primary Care Provider [phone] Jennifer Sylvester MD Primary Care Provider [phone] [facility], Pcp Primary Care Provider Unavailabl e Reason for Visit * Reason Onset Date Comments other 08/03/2018 office notes Encounter Details Date Type Department Care Team Description 08/03/2018 Telephone Pulmonology - [address] [place] [phone] Eduardo Lino MD other (office notes ) Social History Tobacco Use Types Packs/Day Years [...] encounter Miscellaneous Notes * Telephone Encounter - Sam Jones PA-C - 08/10/2018 8:22 AM EDT I have placed a ticket with IT to see if we can get this resolved. * Telephone Encounter - Sam Santiago PA-C - 08/06/2018 4:52 PM EDT I think this might be meant for Sam Jones PA-C. Basically it looks like the dot phrase for the nebulizer was not used in the recent note from pulmonary. Sam Santiago PA-C * Telephone Encounter - Eduardo Lino MD - 08/06/2018 4:38 PM EDT Ok, Jose this is an example of the external orders not showing up on the .phrases affecting patientcare. The nebulizer was ordered but needs to be external to print out, but then the note did not show it and the nebulizer is delayed. Please see about fixing this issue as it is affecting patient care. In the meantime I can do the duplicate work but that is not the fix, tx * Telephone Encounter - Keturah Early M.A. - 08/06/2018 4:24 PM EDT Ashwin spoke to Alize at [employer] .she said nebulizer has to be mentioned in the note if you can add that in. * Telephone Encounter - Mike Lepe - 08/06/2018 3:36 PM EDT Spoke to [facility] she will call me back * Telephone Encounter - Keturah Early M.A. - 08/06/2018 1:19 PM EDT Ashwin can you check on her nebulizer. * Telephone Encounter - Faiza Schumacher - 08/06/2018 12:46 PM EDT Patient is calling in, states that she still has the cough and still has not received a call about getting her machine. She is not sure what to do. Please call her at [phone]. * Telephone Encounter - Magalys Azevedo - 08/03/2018 4:12 PM EDT Needs office notes faxed over to supply [place] for her nebulizer machine documented in this encounter Plan of Treatment Not on file documented as of this encounter Visit Diagnoses Not on filedocumented in this encounter Care Teams Cma Or Lpn Relationship Specialty Start Date End Date Lavell Marcos MD [address] [place] [address] PCP - General 04/06/07 02/08/21 Jennifer Sylvester MD [address] [place] [address] [phone] PCP - General Internal Medicine 02/09/21 01/22/23 [facility], [address] [address] PCP - General Internal Medicine 01/23/23 documented as of this encounter
--- OUTSIDE RECORDS SUMMARY | 2024-12-01 09:01 | XMS_ITS | Encounter Summary ---
Author Organization [facility] Address [address] [place] [address] Care Team Providers Care Principal Statistical Programmer Name Role Phone Jennifer Sylvester MD Primary Care Provider [phone] [facility], Pcp Primary Care Provider Unavailabl e Encounter Details Date Type Department Care Team Description 07/16/2021 Head Silverman Report Medical Records [address] [place] [address] Eduardo Lino MD Social History Tobacco Use Types Packs/Day Years Used Date Smoking Tobacco: Never Smokeless Tobacco: Never Alcohol Use Standard Drinks/Week Comments No 0 (1 standard drink = 0.6 oz pur e alcohol) Sex Assigned at Date Recorded Not on file Job Start Date Occupation Industry Not on file Not on file Not on file COVID-19 Exposure Response Date Recorded In the last month, have you been in contact with someone who was confirmed or suspected to have Coronavirus / COVID-19? No / Unsure 07/04/2021 11:31 AM EDT documented as of this encounter Plan of Treatment Not on file documented as of this encounter Visit Diagnoses Not on filedocumented in this encounter Care Teams Principal Statistical Programmer Relationship Specialty Start Date End Date Jennifer Sylvester MD [address] [place] [address] [phone] PCP - General Internal Medicine 02/09/21 01/22/23 [facility], Pcp [address] [place] [address] PCP - General Internal Medicine 01/23/23 documented as of this encounter
--- OUTSIDE RECORDS SUMMARY | 2024-12-01 09:02 | XMS_ITS | Encounter Summary ---
Author Organization [facility] Address [address] [place] [address] Care Team Providers Care Web Development Intern Name Role Phone Lavell Marcos MD Primary Care Provider [phone] Jennifer Sylvester MD Primary Care Provider [phone] [facility], Pcp Primary Care Provider [facility] e Encounter Details Date Type Department Care Team Description 11/16/2014 Powder Monkey Report Medical Records [address] [place], [place] [phone] Rich Beatty Social History Tobacco Use Types Packs/Day Years [...] on filedocumented in this encounter Care Teams Web Development Intern Relationship Specialty Start Date End Date Lavell Marcos MD [address] [place] [address] PCP - General 04/06/07 02/08/21 Jennifer Sylvester MD [address] [place] [address]22 PCP - General Internal Medicine 02/09/21 01/22/23 [facility], Pcp [address] [place] [address] PCP - General Internal Medicine 01/23/23 documented as of this encounter
--- OUTSIDE RECORDS SUMMARY | 2024-12-01 09:03 | XMS_ITS | Encounter Summary ---
Author Organization [facility] Address [address] [place] [address] Care Team Providers Care Habilitative Interventionist Name Role Phone Jennifer Sylvester MD Primary Care Provider [phone] [facility], Pcp Primary Care Provider Unavailabl e Encounter Details Date Type Department Care Team Description 06/26/2021 Pathology Transcriptionist Report Medical Records [address] [place] [address] Eduardo Lino MD Social History Tobacco Use [...] have Coronavirus / COVID-19? No / Unsure 06/12/2021 8:21 AM EDT documented as of this encounter Plan of Treatment Not on file documented as of this encounter Visit Diagnoses Not on filedocumented in this encounter Care Teams Habilitative Interventionist Relationship Specialty Start Date End Date Jennifer Sylvester MD [address] [place] [address] [phone] PCP - General Internal Medicine 02/09/21 01/22/23 [facility], Pcp [address] [place] [address] PCP - General Internal Medicine 01/23/23 documented as of this encounter
--- OUTSIDE RECORDS SUMMARY | 2024-12-01 09:03 | XMS_ITS | Encounter Summary ---
Author Organization [facility] Address [address] [place] [address] Care Team Providers Care Quill Machine Operator Name Role Phone Jennifer Sylvester MD Primary Care Provider [phone] [facility], Pcp Primary Care Provider Unavailabl e Reason for Visit * Reason Onset Date Comments Mychart Rx Refill 06/26/2021 Encounter Details Date Type Department Care Team Description 06/26/2021 Refill Adult Medicine [address] [phone] Jennifer Sylvester MD [address] [place] [address] [phone] Mychart Rx Refill Social History Tobacco Use Types Packs/Day [...] AM EDT documented as of this encounter Miscellaneous Notes * Telephone Encounter - Jessica Bergman M.A. - 06/26/2021 11:38 AM EDT Pt is requesting 90 day refill for Atorvastatin Last refill was a 30 day supply * Telephone Encounter - Inez Bond - 06/26/2021 11:29 AM EDT Patient would like script to be: E-PRESCRIBED/FAXED TO PHARMACY Patient no longer sees [facility]VC WHEN WAS THE PATIENT'S LAST APPOINTMENT IN ADULT MEDICINE? [id number] WHEN WAS THE LAST TIME THE PATIENT SAW THEIR PCP? [id number] Does patient have an upcoming appointment? Yes [id number] (THE MEDICATION REQUESTED IS ON THE MED LIST ABOVE) All of the medications requested were on the CURRENT MEDS list Did you check the Pharmacy information above?: YES Patient wants: 90 -day supply Is this a mail order prescription request ? NO If the refill is from a FAXED refill request what is the RX # listed on the fax? N/A Patients current [place] carrier is: [place] / [place] / Product Type: MEDICARE [id number] documented in this encounter Plan of Treatment Not on file documented as of this encounter Visit Diagnoses Not on filedocumented in this encounter Care Teams Quill Machine Operator Relationship Specialty Start Date End Date Jennifer Sylvester MD [address] [place] [address] PCP - General Internal Medicine 02/09/21 [facility] [address] [place] [address] PCP - General Internal Medicine 01/23/23 documented as of this encounter
--- OUTSIDE RECORDS SUMMARY | 2024-12-01 09:03 | XMS_ITS | Encounter Summary ---
Author Organization [facility] Address [address] [place] [address] Care Team Providers Care Behavioral Sciences Department Chair Name Role Phone Lavell Marcos MD Primary Care Provider Jennifer Sylvester MD Primary Care Provider [phone] [facility], Pcp Primary Care Provider Unavailabl e Encounter Details Date Type Department Care Team Description 09/10/2018 Distribution Dispatcher Report Medical Records [address] [place] [address] Rafat Gregorio MD Social History Tobacco Use [...] on filedocumented in this encounter Care Teams Behavioral Sciences Department Chair Relationship Specialty Start Date End Date Lavell Marcos MD [address] [place] [address] 360[address] PCP - General 04/06/07 02/08/21 Jennifer Sylvester MD [address] [place] [address] 22166 PCP - General Internal Medicine 02/09/21 01/22/23 [facility], Pcp [address] [place] [address] 01465 PCP - General Internal Medicine 01/23/23 documented as of this encounter
--- OUTSIDE RECORDS SUMMARY | 2024-12-01 09:03 | XMS_ITS | Encounter Summary ---
Author Organization [facility] Address [address] [place] [address] Care Team Providers Care Gluer And Wedger Name Role Phone Lavell Marcos MD Primary Care Provider [phone] Jennifer Sylvester MD Primary Care Provider [phone] [facility], Pcp Primary Care Provider Unavailabl e Encounter Details Date Type Department Care Team Description 11/23/2010 Service Superintendent Report Medical Records [address] [place] [address] [place] [address] [place] [address] Social History Tobacco Use Types Packs/Day Years [...] on filedocumented in this encounter Care Teams Gluer And Wedger Relationship Specialty Start Date End Date Lavell Marcos MD [address] [place] [address] 77486 PCP - General 04/06/07 02/08/21 Jennifre Sylvester MD [address] [place] [address] 69798 PCP - General Internal Medicine 02/09/21 01/22/23 [facility], Pcp [address] [place] [address] 40778 PCP - General Internal Medicine 01/23/23 documented as of this encounter
--- OUTSIDE RECORDS SUMMARY | 2024-12-01 09:03 | XMS_ITS | Encounter Summary ---
Author Organization [facility] Address [address] [place] [address] Care Team Providers Care Leadership Development Manager Name Role Phone Lavell Marcos MD Primary Care Provider [phone] Jennifer Sylvester MD Primary Care Provider [phone] [facility], Pcp Primary Care Provider Unavailabl e Encounter Details Date Type Department Care Team Description 06/18/2018 Blanket Cutting Machine Operator Report Medical Records [address] [place] [address] Reji White MD [address] [place] [address] Social History Tobacco Use Types Packs/Day Years [...] on filedocumented in this encounter Care Teams Leadership Development Manager Relationship Specialty Start Date End Date Lavell Marcos MD [address] [place] [address] PCP - General 04/06/07 02/08/21 Jennifer Sylvester MD [address] [place] [address] PCP - General Internal Medicine 02/09/21 01/22/23 [facility], Pcp [address] [place] [address]16 PCP - General Internal Medicine 01/23/23 documented as of this encounter
--- OUTSIDE RECORDS SUMMARY | 2024-12-01 09:03 | XMS_ITS | Encounter Summary ---
Author Organization [facility] Address [address] [place] [address] Care Team Providers Care Natural Gas Trader Name Role Phone Jennifer Sylvester MD Primary Care Provider [phone] [facility], Pcp Primary Care Provider Unavailabl e Encounter Details Date Type Department Care Team Description 02/22/2021 Diagnostic Radiologic Technologist Report Medical Records [address] [place] [address] Melyssa Garcia MD Social History Tobacco Use Types Packs/Day [...] have Coronavirus / COVID-19? No / Unsure 02/13/2021 12:47 PM EDT documented as of this encounter Plan of Treatment Not on file documented as of this encounter Visit Diagnoses Not on filedocumented in this encounter Care Teams Natural Gas Trader Relationship Specialty Start Date End Date Jennifer Sylvester MD [address] [place] [address] [phone] PCP - General Internal Medicine 02/09/21 01/22/23 [facility], Pcp [address] [place] [address] 96[address] PCP - General Internal Medicine 01/23/23 documented as of this encounter
--- OUTSIDE RECORDS SUMMARY | 2024-12-01 09:03 | XMS_ITS | Encounter Summary ---
Author Organization [facility] Address [address] [place] [address] Care Team Providers Care Cleaning Custodian Name Role Phone Lavell Marcos MD Primary Care Provider [phone] Jennifer Sylvester MD Primary Care Provider [phone] [facility], Pcp Primary Care Provider Unavailabl e Encounter Details Date Type Department Care Team Description 06/24/2018 Orders Only Pulmonology - [address] [place] [address] Eduardo Lino MD Social History Tobacco Use [...] on file documented as of this encounter Procedures Procedure Name Priority Date/Time Associated Diagnosis Comments OUTSIDE VASCULAR STUDY Routine 06/15/2018 documented in this encounter Results * OUTSIDE VASCULAR STUDY (06/15/2018) Eduardo Lino MD CARDIOLOGY documented in this encounter Visit Diagnoses Not on filedocumented in this encounter Care Teams Cleaning Custodian Relationship Specialty Start Date End Date Lavell Marcos MD [address] [place] [address] PCP - General 04/06/07 02/08/21 Jennifer Sylvester MD [address] [place] [address] 19532 PCP - General Internal Medicine 02/09/21 01/22/23 [facility], Pcp [address] [place] [address] PCP - General Internal Medicine 01/23/23 documented as of this encounter
--- OUTSIDE RECORDS SUMMARY | 2024-12-01 09:03 | XMS_ITS | Encounter Summary ---
Author Organization [facility] Address [address] [place] [address] Care Team Providers Care Elementary Math Tutor Name Role Phone Jennifer Sylvester MD Primary Care Provider [phone] [facility], Pcp Primary Care Provider Unavailabl e Reason for Visit * Reason Onset Date Comments Breathing Problems 06/12/2021 Encounter Details Date Type Department Care Team Description 06/12/2021 Telephone Cardio PVC POC [phone] [facility] [address] [place] [address] Reji White MD [address] [place] [address] Breathing Problems Social History Tobacco Use Types Packs/Day Years [...] encounter Miscellaneous Notes * Telephone Encounter - Christy Griffin - 06/13/2021 2:34 PM EDT L/m on ans mach stating if stil active sx with SOB as when I spoke with her and/or chest pressure to call 911 and go to er for eval. I left PVC phone # * Telephone Encounter - Lakiaaracelis Enriquez DNP, FNP - 06/13/2021 1:51 PM EDT I agree that if she is having active symptoms she should go to the emergency room for evaluation. If her symptoms have resolved, please book her for a triage visit in the next week. You can look in the stress echo schedule is typically one of the JOSÉ LUIS's will have help time for this. * Telephone Encounter - Christy Griffin - 06/13/2021 8:41 AM EDT Spoke with Rere at pulmonology office and req office visit note from yesterday be faxed to triage fax [phone] * Telephone Encounter - Christy Griffin - 06/13/2021 8:27 AM EDT Patient reports saw chief investment officer yesterday (Dr. Eduardo Lino -[facility] ) and was told to call for a cardiology appt andressa Per patient, chief investment officer told her she may have blocked arteries. She is breathless on the phone having to pause after each sentence to catch her breath. No wheezing heard. Reports chest heaviness that has lasted all day. Indigestion yesterday. I advised er and to call 911 and go by ambulance. She wants to come in and be seen. I advised er for chest pressure and breathlessness. She said she has a bank appt at 11am and will possibly go after. Again, I strongly urged er now. Unsure if she will go to er. She has appt w/ LC 06/28. (I called pulm office to obtain office note from yesterday. Office still not p/u. Will try again soon phone # [phone] * Telephone Encounter - Ann Marie Ferrer - 06/12/2021 3:35 PM EDT 06/12/21 Pt looking to speak to care team regarding breathing problems. Pt can be reached at [phone] documented in this encounter Plan of Treatment Not on file documented as of this encounter Visit Diagnoses Not on filedocumented in this encounter Care Teams Elementary Math Tutor Relationship Specialty Start Date End Date Jennifer Sylvester MD [address] [place] [address] PCP - General Internal Medicine 02/09/21 01/22/23 [facility], [place] [address] PCP - General Internal Medicine 01/23/23 documented as of this encounter
--- OUTSIDE RECORDS SUMMARY | 2024-12-01 09:03 | XMS_ITS | Encounter Summary ---
Author Organization [facility] Address [address] [place] [address] Care Team Providers Care Medical Insurance Coding Specialist Name Role Phone Jennifer Sylvester MD Primary Care Provider [phone] [facility], Pcp Primary Care Provider Unavailabl e Encounter Details Date Type Department Care Team Description 06/12/2021 Fish Hatchery Superintendent Report Medical Records [address] [place] [address] Eduardo Lino MD Social History Tobacco Use [...] on filedocumented in this encounter Care Teams Medical Insurance Coding Specialist Relationship Specialty Start Date End Date Jennifer Sylvester MD [address] [place] [address] [phone] PCP - General Internal Medicine 02/09/21 01/22/23 [facility], Pcp [address] [place] [phone] PCP - General Internal Medicine 01/23/23 documented as of this encounter
--- OUTSIDE RECORDS SUMMARY | 2024-12-01 09:04 | XMS_ITS | Encounter Summary ---
Author Organization [facility] Address [address] [place] [address] Care Team Providers Care Medicaid Billing Specialist Name Role Phone Lavell Marcos MD Primary Care Provider [phone] Jennifer Sylvester MD Primary Care Provider [phone] [facility], Pcp Primary Care Provider Unavailabl e Encounter Details Date Type Department Care Team Description 10/04/2014 Hereditary Cancer Qu iz Results Medical Records [address] [place], [place] [id number] Abstract, Provider Social History Tobacco Use Types [...] on filedocumented in this encounter Care Teams Medicaid Billing Specialist Relationship Specialty Start Date End Date Lavell Marcos MD [address] [place] [address] PCP - General 04/06/07 02/08/21 Jennifer Sylvester MD [address] [place] [address] 9[address]25 PCP - General Internal Medicine 02/09/21 01/22/23 [facility], Pcp [address] [place] [address] PCP - General Internal Medicine 01/23/23 documented as of this encounter
--- OUTSIDE RECORDS SUMMARY | 2024-12-01 09:04 | XMS_ITS | Encounter Summary ---
Author Organization [facility] Address [address] [place] [address] Care Team Providers Care Cloth Cutting Machine Operator Name Role Phone TariqMarleeelidia Marc Primary Care Provider [phone] Reason for Visit * Reason Onset Date Comments PAC Patient Request Call Back 06/08/2024 Encounter Details Date Type Department Care Team (Late st Contact Info) Description 06/08/2024 Telephone [facility] [address] [place] [address] Telephone Intake, Staff PAC Patient Request Call Back Social History Tobacco Use Types Packs/Day Years Used Date Smoking Tobacco: Never Passive Smoke Exposure: Past Smokeless Tobacco: Never Alcohol Use Standard Drinks/Week Comments Not Currently 0 (1 standard drink = 0.6 oz pur e alcohol) Comments Unknown Sex and Gender Information Value Date Recorded Sex Assigned at Female 04/15/2024 12:31 PM EDT Legal Sex Female 2:06 PM EDT Gender Identity Not on file Sexual Orientation Not on file documented as of this encounter Miscellaneous Notes * Telephone Encounter - Jessica Christine - 06/08/2024 10:35 AM EDT Patient calling to ask if she can change her nurse appointment time for Prolia on 06/11/24 to 3pm. Presently it is scheduled for 9am. Patient can be reached at [phone]. Thank you - PAC documented in this encounter Plan of Treatment Upcoming Encounters Date Type Department Care Team (Late st Contact Info) Description 12/14/2024 9:30 AM EST Clinical Support [facility] [address] [place] [address] Process Inspector: Marlena Hurst 03/03/2025 9:30 AM EDT Follow-Up [facility] [address] [place] [address] Process Inspector: Carlos Diop MD [address] [place] [address] documented as of this encounter Visit Diagnoses Not on filedocumented in this encounter Care Teams Cloth Cutting Machine Operator Relationship Specialty Start Date End Date Abby Potter [address] [place] [address] [place] [address] PCP - General Internal Medicine 04/14/24 documented as of this encounter
--- OUTSIDE RECORDS SUMMARY | 2024-12-01 09:04 | XMS_ITS | Clinical Summary ---
Author Organization [facility] Address [address] [place] [address] Care Team Providers Care Inspector Timers Name Role Phone TariqAbby Monico Primary Care Provider [phone] Allergies Active Allergy Reactions Criticality Noted Date Comments Amitriptyline Unknown 06/05/2007 Cefaclor Palpitations,Other ( see comments) 06/04/2007 Other reaction(s): OTHER increased palpatations increased palpatations Codeine Dermatitis 06/04/2007 Other reaction(s): rash,dermatitis, Rash/Dermatitis Other reaction(s): Rash/Dermatitis Other reaction(s): Rash/Dermatitis Hydrocodone Unknown 08/21/2021 Oxycodone Hcl Unknown 08/21/2021 Medications atorvastatin (LIPITOR) 40 mg tablet Take 40 mg by mouth nightly. 04/09/2024 Active Eliquis 5 mg tablet Take 5 mg by mouth every 12 hours. Active benzonatate (TESSALON) 200 mg capsule Take 200 mg by mouth as needed. 05/13/2024 Active Symbicort 80-4.5 mcg/actuation inhaler Inhale 2 puffs by mouth daily. 09/04/2023 Active butalbital-acet aminophen-caffe ine (FIORICET) 50-325-40 mg tablet Take 1 tablet by mouth as needed. Active cholecalciferol (VITAMIN D3) 2,000 unit capsule Take 1 capsule by mouth once a day. 03/08/2024 Active cyanocobalamin 1,000 mcg tablet Take 1,000 mcg by mouth daily. Active diazePAM (VALIUM) 10 mg tablet Take 10 mg by mouth as needed. Active Lexapro 10 mg tablet Take 10 mg by mouth once a day. Active loratadine 10 mg capsule Take 1 capsule by mouth once a day. Active traMADoL (ULTRAM) 50 mg tablet Take 50 mg by mouth as needed. 08/07/2023 Active COQ10, UBIQUINOL, ORAL Take by mouth. Active fluticasone propionate (FLONASE) 50 mcg/actuation nasal spray 08/25/2024 Active Active Problems Problem Noted Date Diagnosed Date Age-related osteoporosis wit hout current pathological fracture 05/17/2024 Encounters Date Type Department Care Team Description 09/02/2024 Orders Only [facility] [address] [place] [phone] Residential Aide: Carlos Diop MD Chronic right shoulder pain (Primary Dx) 08/31/2024 10:49 AM EDT - 08/31/2024 11:59 PM EDT Hospital Encounter [facility] XRay [address] [place] [address] Lacey Patel MD Chronic right shoulder pain Discharge Disposition: Home or Self Care (01) 08/31/2024 9:30 AM EDT Follow-Up [facility] [address] [place] [address] Residential Aide: Carlos Diop MD Age-related osteoporosis without current pathological fracture (Primary Dx); Chronic right shoulder pain; Iron deficiency anemia, unspecified iron deficiency anemia type from Last 3 Months Social History Tobacco Use Types Packs/Day Years Used Date Smoking Tobacco: Never Passive Smoke Exposure: Past Smokeless Tobacco: Never Tobacco Cessation:Counseling Given: No Alcohol Use Standard Drinks/Week Comments Not Currently 0 (1 standard drink = 0.6 oz pur e alcohol) Comments Unknown Sex and Gender Information Value Date Recorded Sex Assigned at Female 04/15/2024 12:31 PM EDT Legal Sex Female 2:06 PM EDT Gender Identity Not on file Sexual Orientation Not on file Last Filed Vital Signs Vital Sign Reading Time Taken Comments Blood Pressure 113/56 08/31/2024 9:36 AM EDT Pulse 71 08/31/2024 9:36 AM EDT Temperature 36.9 ??C (98.5 ??F) 08/31/2024 9:36 AM ED T Respiratory Rate - - Oxygen Saturation - - Inhaled Oxygen Concentration - - Weight 50.6 kg (111 lb 9.6 oz) 08/31/2024 9:36 A M EDT Height 152.4 cm (5') 08/31/2024 9:36 AM EDT Body Mass Index 21.8 08/31/2024 9:36 AM EDT Plan of Treatment Upcoming Encounters Date Type Department Care Team (Late st Contact Info) Description 12/14/2024 9:30 AM EST Clinical Support [facility] [address] [place] [address] [phone] Residential Aide: Marlena Hurst 03/03/2025 9:30 AM EDT Follow-Up [facility] [address] [place] [address] [phone] Residential Aide: Carlos Diop MD [address] [place] [phone] Health Maintenance Due Date Last Done Comments Hepatitis C Screening 1945 COVID-19 Vaccine ( season) 2024 08/05/2023, 10/21/2021, 01/01/2021, Additional history exists Influenza Vaccine (#1) 2024 , 07/24/2022, 08/01/2021, Additional history exists Alcohol/Substance Use Screening 11/03/2024 Depression Screening and Follow-Up 11/03/2024 Fall Risk Screening 11/03/2024 Health Care Proxy Review 11/03/2024 Social Drivers of Health Annual Screening 11/03/2024 DTaP,Tdap,and Td Vaccines (3 - Td or Tdap) 11/17/2029 11/17/2019, 09/01/2009 Tobacco Screening 11/03/2042 08/31/2024 Zoster Vaccines Completed 10/03/2020, 07/2020, 07/20/2020, Additional history exists RSV Vaccine (60+ years old and patients) Completed 08/05/2023 Osteoporosis Screening Completed 10/31/2023, 2018 Pneumococcal Vaccine: 65+ Years Completed 03/05/2024, 06/22/2015, 11/17/2013 Hepatitis B Vaccines Aged Out No long er eligible based on patient's age to complete this topic Procedures * Due to [place] Recogn[employer] law, this organization might not be sharing negative HIV tests. Procedure Name Priority Date/Time Associated Diagnosis Comments MAGNESIUM Routine 11/10/2024 10:34 AM EST Age-related osteoporosis without current pathological fracture PHOSPHORUS Routine 11/10/2024 10:34 AM EST Age-related osteoporosis without current pathological fracture VITAMIN D, 25-HYDROXY, TOTAL, IMMUNOASSAY Routine 11/10/2024 10:34 AM EST Age-related osteoporosis without current pathological fracture CBC Routine 11/10/2024 10:34 AM EST Age-related osteoporosis without current pathological fracture Iron deficiency anemia, unspecified iron deficiency anemia type COMPREHENSIVE METABOLIC PANEL Routine 11/10/2024 10:34 AM EST Age-related osteoporosis without current pathological fracture XR SHOULDER 2+ VW RIGHT Routine 08/31/2024 11:40 AM EDT Chronic right shoulder pain XR SHOULDER 2+ VW LEFT Routine 08/31/2024 11:40 AM EDT Chronic right shoulder pain HM DEXA SCAN 10/31/2023 from Last 3 Months or Most Recently Relevant to Health Maintenance Results * Due to [place] Recogn[employer] law, this organization might not be sharing negative HIV tests. * Vitamin D, 25-Hydroxy, Total, Immunoassay (11/10/2024 10:34 AM EST) Calcidiol+ercalc idiol 73 30 - 100 ng/mL 11/10/2024 11:44 PM EST [facility] Comment: Vitamin D Status ? 25-OH Vitamin D: Deficiency: ?<20 ng/mL Insufficiency: ? 20 - 29 ng/mL Optimal: ? > or = 30 ng/mL For 25-OH Vitamin D testing on patients on D2-supplementation and patients for whom quantitation of D2 and D3 fractions is required, the QuestAssureD(TM) 25-OH VIT D, (D2,D3), LC/MS/MS is recommended: order code 08213 (patients >2yrs). See Note 1 Note 1 For additional information, please refer to http://education.[employer]/faq/VUD244 (This link is being provided for informational/ educational purposes only.) Blood Structure of peripheral vein / Unknown 11/10/2024 10:34 AM EST 11/10/2024 8:47 PM EST Narrative [facility] - 11/10/2024 11:45 PM EST FASTING:NO us Lacey Patel MD LAB BLOOD ORDERABLES Final Re sult [facility] [address] [facility] [address] Floor, [place] [address], [employer] [facility] [address] [place] [address] * CBC (11/10/2024 10:34 AM EST) White Blood Cell Count 7.7 3.8 - 10.8 Thousand/ uL 11/10/2024 9:43 [address] [employer] [facility] Red Blood Cell Count 4.13 3.80 - 5.10 Million/u L 11/10/2024 9:43 PM EST [facility] Hemoglobin 12.0 11.7 - 15.5 g/dL 11/10/2024 9:43 PM EST [facility] Hematocrit 36.7 35.0 - 45.0 % 11/10/2024 9:43 PM EST [facility] MCV 88.9 80.0 - 100.0 fL 11/10/2024 9:43 PM EST [facility] MCH 29.1 27.0 - 33.0 pg 11/10/2024 9:43 PM EST [facility] MCHC 32.7 32.0 - 36.0 g/dL 11/10/2024 9:43 PM EST [facility] Comment: For adults, a slight decrease in the calculated MCHC value (in the range of 30 to 32 g/dL) is most likely not clinically significant; however, it should be interpreted with caution in correlation with other red cell parameters and the patient's clinical condition. RDW 12.8 11.0 - 15.0 % 11/10/2024 9:43 PM EST [facility] Platelet Count 285 140 - 400 Thousand/ uL 11/10/2024 9:43 PM EST [facility] MPV 9.5 7.5 - 12.5 fL 11/10/2024 9:43 PM EST [facility] Blood Structure of peripheral vein / Unknown 11/10/2024 10:34 AM EST 11/10/2024 8:23 PM EST Narrative [facility] - 11/10/2024 11:45 PM EST FASTING:NO us Lacey Patel MD LAB BLOOD ORDERABLES Final Re sult Performing Organization Address City/[facility]/ZIP Co de Phone Number [facility] [address], [place] [address], [place] [phone] [employer] [address] [address] * Phosphorus (11/10/2024 10:34 AM EST) Phosphate 2.5 2.1 - 4.3 mg/dL 11/10/2024 11:[address] [employer] [facility] Blood Structure of peripheral vein / Unknown 11/10/2024 10:34 AM EST 11/10/2024 8:47 PM EST Narrative [facility] - 11/10/2024 11:45 PM EST FASTING:NO us Lacey Patel MD LAB BLOOD ORDERABLES Final Re sult [facility] [address], [place] [address], [place] [phone] [employer] [address] [place] [address] * Magnesium (11/10/2024 10:34 AM EST) Magnesium 2.0 1.5 - 2.5 mg/dL 11/10/2024 11:36 PM EST [facility] Blood Structure of peripheral vein / Unknown 11/10/2024 10:34 AM EST 11/10/2024 8:47 PM EST Narrative [facility] - 11/10/2024 11:45 PM EST FASTING:NO us Lacey Patel MD LAB BLOOD ORDERABLES Final Re sult [facility] [address] [facility] [address], [place] [address], [employer] [facility] [address] [place] [address] * (ABNORMAL) Comprehensive Metabolic Panel (11/10/2024 10:34 AM EST) Pathologist [facility] Glucose 92 65 - 139 mg/dL 11/10/2024 11:36 PM EST [facility] Comment: ? Non-fasting reference interval BUN 10 7 - 25 mg/dL 11/10/2024 11:36 PM [facility] Creatinine 0.73 0.60 - 1.00 mg/dL 11/10/2024 11:36 PM [facility] eGFR 85 > OR = 60 mL/min/1. 73m2 11/10/2024 11:36 PM [facility] Bun/Creatinine Ratio SEE NOTE: 6 - 22 (calc) 11/10/2024 11:36 PM [facility] Comment: ?? Not Reported: BUN and Creatinine are within ?? reference range. ? Sodium 140 135 - 146 mmol/L 11/10/2024 11:36 PM EST [facility] Potassium 3.3(L) 3.5 - 5.3 mmol/L 11/10/2024 11:36 PM [facility] Chloride 105 98 - 110 mmol/L 11/10/2024 11:36 PM [facility] Carbon Dioxide 26 20 - 32 mmol/L 11/10/2024 11:36 PM EST [facility] Calcium 9.2 8.6 - 10.4 mg/dL 11/10/2024 11:36 PM EST [facility] Protein, Total 6.2 6.1 - 8.1 g/dL 11/10/2024 11:36 PM EST [facility] Albumin 4.2 3.6 - 5.1 g/dL 11/10/2024 11:36 PM EST [facility] Globulin 2.0 1.9 - 3.7 g/dL (calc) 11/10/2024 11:36 PM EST [facility] Albumin/Globuli n Ratio 2.1 1.0 - 2.5 (calc) 11/10/2024 11:36 PM EST [facility] Bilirubin, Total 1.2 0.2 - 1.2 mg/dL 11/10/2024 11:36 PM EST [facility] Alkaline Phosphatase 62 37 - 153 U/L 11/10/2024 11:36 PM EST [facility] AST 17 10 - 35 U/L 11/10/2024 11:36 PM EST [facility] ALT 9 6 - 29 U/L 11/10/2024 11:36 PM EST [facility] Blood Structure of peripheral vein / Unknown 11/10/2024 10:34 AM EST 11/10/2024 8:47 PM EST Narrative [facility] - 11/10/2024 11:45 PM EST FASTING:NO us Lacey Patel MD LAB BLOOD ORDERABLES Final Re sult [facility] [address] [facility] [address], [place] [address], [place] [phone] [facility] [address] [place] [address] * X-Ray Shoulder Right 2+ Views (08/31/2024 11:40 AM EDT) Anatomical Region Laterality Modality Upper Extremities, Shoulder Right Comp uted Radiography 08/31/2024 12:0 1 PM EDT Impressions 08/31/2024 12:04 PM EDT Bilateral shoulder x-rays AP view neutral and internal rotation and axillary view. Mild generalized osteopenia bilaterally no acute fractures dislocations are seen. Left side, mild degenerative changes of the glenohumeral joint with the mild narrowing and very minimal sclerosis. AC joint and tuberosities within normal limits no calcific tendinosis Right side no acute fractures dislocations. Joint spaces are normal no arthropathy. Degenerative changes of the tuberosities. Ill-defined calcific tendinosis at the greater tuberosity. Also slightly soft tissue mineralization at the AC joint. If this radiology report contains a blank impression section, it is an incomplete radiology report. ??Please contact the interpreting radiologist or applicable radiology division as soon as possible to obtain the completed interpretation. ? Workstation ID: [id number] Narrative 08/31/2024 12:04 PM EDT COMPARISON: ??There are no prior studies available for comparison at this time. ?? FINDINGS AND Resulting Agency Comment [id number] Procedure Note Jeny Rodríguez MD - 08/31/2024 COMPARISON: There are no prior studies available for comparison at thistime. FINDINGS AND IMPRESSION: Bilateral shoulder x-rays AP view neutral and internal rotation andaxillary view. Mild generalized osteopenia bilaterally no acute fractures dislocationsare seen. Left side, mild degenerative changes of the glenohumeral joint with themild narrowing and very minimal sclerosis. AC joint and tuberositieswithin normal limits no calcific tendinosis Right side no acute fractures dislocations. Joint spaces are normal noarthropathy. Degenerative changes of the tuberosities. Ill-defined calcific tendinosis at the greater tuberosity. Also slightlysoft tissue mineralization at the AC joint. If this radiology report contains a blank impression section, it is anincomplete radiology report. Please contact the interpreting radiologistor applicable radiology division as soon as possible to obtain thecompleted interpretation. Workstation ID: [id number] us Lacey Patel MD IMG XR PROCEDURES Final Resul t * XR Shoulder 2+ vw Left (08/31/2024 11:40 AM EDT) Anatomical Region Laterality Modality Upper Extremities, Shoulder Left Comp uted Radiography 08/31/2024 12:0 1 PM EDT Impressions 08/31/2024 12:04 PM EDT Bilateral shoulder x-rays AP view neutral and internal rotation and axillary view. Mild generalized osteopenia bilaterally no acute fractures dislocations are seen. Left side, mild degenerative changes of the glenohumeral joint with the mild narrowing and very minimal sclerosis. AC joint and tuberosities within normal limits no calcific tendinosis Right side no acute fractures dislocations. Joint spaces are normal no arthropathy. Degenerative changes of the tuberosities. Ill-defined calcific tendinosis at the greater tuberosity. Also slightly soft tissue mineralization at the AC joint. If this radiology report contains a blank impression section, it is an incomplete radiology report. ??Please contact the interpreting radiologist or applicable radiology division as soon as possible to obtain the completed interpretation. ? Workstation ID: [id number] Narrative 08/31/2024 12:04 PM EDT COMPARISON: ??There are no prior studies available for comparison at this time. ?? FINDINGS AND Resulting Agency Comment [id number] Procedure Note Jeny Rodríguez MD - 08/31/2024 COMPARISON: There are no prior studies available for comparison at thistime. FINDINGS AND IMPRESSION: Bilateral shoulder x-rays AP view neutral and internal rotation andaxillary view. Mild generalized osteopenia bilaterally no acute fractures dislocationsare seen. Left side, mild degenerative changes of the glenohumeral joint with themild narrowing and very minimal sclerosis. AC joint and tuberositieswithin normal limits no calcific tendinosis Right side no acute fractures dislocations. Joint spaces are normal noarthropathy. Degenerative changes of the tuberosities. Ill-defined calcific tendinosis at the greater tuberosity. Also slightlysoft tissue mineralization at the AC joint. If this radiology report contains a blank impression section, it is anincomplete radiology report. Please contact the interpreting radiologistor applicable radiology division as soon as possible to obtain thecompleted interpretation. Workstation ID: [id number] us Lacey Patel MD IMG XR PROCEDURES Final Resul t * HM Dexa Scan (10/31/2023) Anatomical Region Laterality Modality Other 10/31/2023 us Onbase Scan [facility] HEALTH MAINTENANCE Final Resu lt from Last 3 Months or Most Recently Relevant to Health Maintenance Insurance MEDICARE [facility] Care Teams Inspector Timers Relationship Specialty Start Date End Date Abby Potter [address] [place] [address] [place] [address] PCP - General Internal Medicine 04/14/24
--- OUTSIDE RECORDS SUMMARY | 2024-12-01 09:04 | XMS_ITS | Encounter Summary ---
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
--- OUTSIDE RECORDS SUMMARY | 2024-12-01 09:04 | XMS_ITS | Encounter Summary ---
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
--- OUTSIDE RECORDS SUMMARY | 2024-12-01 09:04 | XMS_ITS | Encounter Summary ---
Author Organization [facility] Address [address] [place] [address] Care Team Providers Care New Accounts Clerk Name Role Phone Lavell Marcos MD Primary Care Provider [phone] Jennifer Sylvester MD Primary Care Provider [phone] [facility], Pcp Primary Care Provider Unavailmilitary [facility] system e Encounter Details Date Type Department Care Team Description 08/05/2014 Pt. Non Urgent Medical Question Adult Medicine [facility] [address] [place] [phone] Lavell Marcos MD [address] [place] [phone] Social History Tobacco Use Types Packs/Day Years Used Date Smoking Tobacco: Never Smokeless Tobacco: Never Alcohol Use Standard Drinks/Week Comments Not Asked 0 (1 standard drink = 0.6 oz pur e alcohol) Sex Assigned at Date Recorded Not on file Job Start Date Occupation Industry Not on file Not on file Not on file documented as of this encounter Progress Notes * Adelina Burgess M.A. - 08/05/2014 5:30 PM EDTFrom: Adelina Tavarez To: Lavell Marcos MD Sent: 08/05/2014 9:41 AM EDT Subject: Alpha [address] Marcos do you know if I have the gene for the alpha 1 from the test that was done, that is what I need to know. Cortney Sahu documented in this encounter Plan of Treatment Not on file documented as of this encounter Visit Diagnoses Not on filedocumented in this encounter Care Teams New Accounts Clerk Relationship Specialty Start Date End Date Lavell Marcos MD [address] [place] [phone] PCP - General 04/06/07 02/08/21 Jennifer Sylvester MD [address] [place] [address] PCP - General Internal Medicine 02/09/21 01/22/[address] [address] PCP - General Internal Medicine 01/23/23 documented as of this encounter
--- OUTSIDE RECORDS SUMMARY | 2024-12-01 09:04 | XMS_ITS | Encounter Summary ---
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
--- OUTSIDE RECORDS SUMMARY | 2024-12-01 09:04 | XMS_ITS | Encounter Summary ---
Author Organization [facility] Address [address] [place] [address] Care Team Providers Care Technical Services Representative Name Role Phone Lavell Marcos MD Primary Care Provider Jennifer Sylvester MD Primary Care Provider [phone] [facility], Pcp Primary Care Provider Unavailabl e Encounter Details Date Type Department Care Team Description 06/14/2014 Hospital Medical Records [address] [place] [address] Augie Braga MD Social History Tobacco Use Types Packs/Day [...] on filedocumented in this encounter Care Teams Technical Services Representative Relationship Specialty Start Date End Date Lavell Marcos MD [address] [place] [address] PCP - General 04/06/07 02/08/21 Jennifer Sylvester MD [address] [place] [address] PCP - General Internal Medicine 02/09/21 01/22/23 Community, Pcp [address] [place] [address] PCP - General Internal Medicine 01/23/23 documented as of this encounter
--- OUTSIDE RECORDS SUMMARY | 2024-12-01 09:04 | XMS_ITS | Referral Summary ---
Author Organization [facility] Address [address] [place] [address] Care Team Providers Care Clin Tech Name Role Phone TariqAbby Monico Primary Care Provider [phone] Encounters Date Type Department Care Team Description 09/02/2024 Orders Only [facility] Rheumatology Clinic [address] [place] [address] Financial Services Professional: Carlos Diop MD Chronic right shoulder pain (Primary Dx) 08/31/2024 10:49 AM EDT - 08/31/2024 11:59 PM EDT Hospital Encounter [facility] XRay [address] [place] [address] Lacey Patel MD Chronic right shoulder pain Discharge Disposition: Home or Self Care (01) 08/31/2024 9:30 AM EDT Follow-Up [facility] Rheumatology Clinic [address] [place] [address] Financial Services Professional: Carlos Diop MD Age-related osteoporosis without current pathological fracture (Primary Dx); Chronic right shoulder pain; Iron deficiency anemia, unspecified iron deficiency anemia type from Last 3 Months Allergies Active Allergy Reactions Criticality Noted Date [...] osteoporosis wit hout current pathological fracture 05/17/2024 Social History Tobacco Use Types Packs/Day Years [...] Description 12/14/2024 9:30 AM EST Clinical Support [facility] Rheumatology Clinic [address] [place] [address] Financial Services Professional: Marlena Hurst 03/03/2025 9:30 AM EDT Follow-Up [facility] Rheumatology Clinic [address] [place] [address] Financial Services Professional: Carlos Diop MD [address] [place] [address] Procedures * Due to [place] state law, this organization might not be sharing [...] to Health Maintenance Results * Due to [place] state law, this organization might not be sharing negative HIV tests. * Vitamin D, 25-Hydroxy, Total, Immunoassay (11/10/2024 10:34 AM EST) Calcidiol+ercalc idiol 73 30 - 100 ng/mL 11/10/2024 11:44 PM EST [employer] Comment: Vitamin D Status ? 25-OH Vitamin D: Deficiency: ?<20 ng/mL Insufficiency: ? 20 - 29 ng/mL Optimal: ? > or = 30 ng/mL For 25-OH Vitamin D testing on patients on D2-supplementation and patients for whom quantitation of D2 and D3 fractions is required, the QuestAssureD(TM) 25-OH VIT D, (D2,D3), LC/MS/MS is recommended: order code 46480 (patients >2yrs). See Note 1 Note 1 For additional information, please refer to http://education.[employer]/faq/AZG290 (This link is being provided for informational/ educational purposes only.) Blood Structure of peripheral vein / Unknown 11/10/2024 10:34 AM EST 11/10/2024 8:47 PM EST Narrative [facility] - 11/10/2024 11:45 PM EST FASTING:NO us Lacey Patel MD LAB BLOOD ORDERABLES Final Re sult [facility] [address] [address], [place] [address], [place] [phone] [employer] [facility] [address] [place] [address] * CBC (11/10/2024 10:34 AM EST) White Blood Cell Count 7.7 3.8 - 10.8 Thousand/ uL 11/10/2024 9:43 PM EST [employer] [facility] Red Blood Cell Count 4.13 3.80 - 5.10 Million/u L 11/10/2024 9:43 PM EST [employer] [facility] Hemoglobin 12.0 11.7 - 15.5 g/dL 11/10/2024 9:43 PM EST [employer] [facility] Hematocrit 36.7 35.0 - 45.0 % 11/10/2024 9:43 PM EST [email or web address] [facility] MCV 88.9 80.0 - 100.0 fL 11/10/2024 9:43 PM EST [employer] [facility] MCH 29.1 27.0 - 33.0 pg 11/10/2024 9:43 PM EST [employer] [facility] MCHC 32.7 32.0 - 36.0 g/dL 11/10/2024 9:43 PM EST [employer] [facility] Comment: For adults, a slight decrease in the calculated MCHC value (in the range of 30 to 32 g/dL) is most likely not clinically significant; however, it should be interpreted with caution in correlation with other red cell parameters and the patient's clinical condition. RDW 12.8 11.0 - 15.0 % 11/10/2024 9:43 PM EST [employer] [facility] Platelet Count 285 140 - 400 Thousand/ uL 11/10/2024 9:43 PM EST [employer] [facility] MPV 9.5 7.5 - 12.5 fL 11/10/2024 9:43 PM EST [email or web address] [facility] Blood Structure of peripheral vein / Unknown 11/10/2024 10:34 AM EST 11/10/2024 8:23 PM EST Narrative [facility] - 11/10/2024 11:45 PM EST FASTING:NO Lacey Patel MD LAB BLOOD ORDERABLES Final Re sult [facility] [address] [address], [place] [address], [facility] [address] [address] * Phosphorus (11/10/2024 10:34 AM EST) Phosphate 2.5 2.1 - 4.3 mg/dL 11/10/2024 11:36 PM EST [email or web address] [facility] Blood Structure of peripheral vein / Unknown 11/10/2024 10:34 AM EST 11/10/2024 8:47 PM EST Narrative [facility] - 11/10/2024 11:45 PM EST FASTING:NO us Lacey Patel MD LAB BLOOD ORDERABLES Final Re sult Performing Organization Address City/[facility]/ZIP Co de Phone Number [facility] [address], [place] [address], [place] [phone] [email or web address] [address] [address] * Magnesium (11/10/2024 10:34 AM EST) Magnesium 2.0 1.5 - 2.5 mg/dL 11/10/2024 11:36 PM EST [email or web address] [facility] Blood Structure of peripheral vein / Unknown 11/10/2024 10:34 AM EST 11/10/2024 8:47 PM EST Narrative [facility] - 11/10/2024 11:45 PM EST FASTING:NO us Lacey Patel MD LAB BLOOD ORDERABLES Final Re sult [facility] [address], [place] [address], [place] [phone] [email or web address] [address] [address] * (ABNORMAL) Comprehensive Metabolic Panel (11/10/2024 10:34 AM EST) Glucose 92 65 - 139 mg/dL 11/10/2024 11:36 PM EST [email or web address] [facility] Comment: ? Non-fasting reference interval BUN 10 7 - 25 mg/dL 11/10/2024 11:36 PM [employer] [facility] Creatinine 0.73 0.60 - 1.00 mg/dL 11/10/2024 11:36 PM [employer] [facility] eGFR 85 > OR = 60 mL/min/1. 73m2 11/10/2024 11:36 PM [employer] [facility] Bun/Creatinine Ratio SEE NOTE: 6 - 22 (calc) 11/10/2024 11:36 PM [employer] [facility] Comment: ?? Not Reported: BUN and Creatinine are within ?? reference range. ? Sodium 140 135 - 146 mmol/L 11/10/2024 11:36 PM [employer] [facility] Potassium 3.3(L) 3.5 - 5.3 mmol/L 11/10/2024 11:36 PM [employer] [facility] Chloride 105 98 - 110 mmol/L 11/10/2024 11:36 PM [employer] [facility] Carbon Dioxide 26 20 - 32 mmol/L 11/10/2024 11:36 PM [employer] [facility] Calcium 9.2 8.6 - 10.4 mg/dL 11/10/2024 11:36 PM [employer] [facility] Protein, Total 6.2 6.1 - 8.1 g/dL 11/10/2024 11:36 PM [employer] [facility] Albumin 4.2 3.6 - 5.1 g/dL 11/10/2024 11:36 PM [employer] [facility] Globulin 2.0 1.9 - 3.7 g/dL (calc) 11/10/2024 11:36 PM [employer] [facility] Albumin/Globuli n Ratio 2.1 1.0 - 2.5 (calc) 11/10/2024 11:36 PM [employer] [facility] Bilirubin, Total 1.2 0.2 - 1.2 mg/dL 11/10/2024 11:36 PM [employer] [facility] Alkaline Phosphatase 62 37 - 153 U/L 11/10/2024 11:36 PM [employer] [facility] AST 17 10 - 35 U/L 11/10/2024 11:36 PM [employer] [facility] ALT 9 6 - 29 U/L 11/10/2024 11:36 PM [employer] [facility] Blood Structure of peripheral vein / Unknown 11/10/2024 10:34 AM EST 11/10/2024 8:47 PM EST Narrative [facility] - 11/10/2024 11:45 PM EST FASTING:NO us Lacey Patel MD LAB BLOOD ORDERABLES Final Re sult [facility] [address] [address], [place] [address], [place] [phone] [email or web address] [facility] [address] [place] [address] * X-Ray Shoulder Right 2+ Views (08/31/2024 [...] obtain the completed interpretation. ? Workstation ID: [id number] Narrative 08/31/2024 12:04 PM EDT COMPARISON: ??There are no prior studies available for comparison at this time. ?? FINDINGS AND Resulting Agency Comment [id number] Procedure Note Jeny Rodríguez MD - 08/31/2024 [...] possible to obtain thecompleted interpretation. Workstation ID: [id number] us Lacey Patel MD IMG XR PROCEDURES [...] obtain the completed interpretation. ? Workstation ID: [id number] Narrative 08/31/2024 12:04 PM EDT COMPARISON: ??There are no prior studies available for comparison at this time. ?? FINDINGS AND Resulting Agency Comment [id number] Procedure Note Jeny Rodríguez MD - 08/31/2024 [...] possible to obtain thecompleted interpretation. Workstation ID: [id number] us Lacey Patel MD IMG XR PROCEDURES Final Resul t * HM Dexa Scan (10/31/2023) Anatomical Region Laterality Modality Other 10/31/2023 us Onbase Scan [facility] Final Resu lt from Last 3 Months or Most Recently Relevant to [place] [id number] [facility] Care Teams Clin Tech Relationship Specialty Start Date End Date Abby Potter [address] [place] [address] [place] [address] PCP - General Internal Medicine 04/14/24
--- OUTSIDE RECORDS SUMMARY | 2024-12-01 09:04 | XMS_ITS | Encounter Summary ---
Author Organization [facility] Address [address] [place] [address] Care Team Providers Care Legal Researcher Name Role Phone Lavell Marcos MD Primary Care Provider [phone] Jennifer Sylvester MD Primary Care Provider [phone] [facility], Pcp Primary Care Provider [facility] e Encounter Details Date Type Department Care Team Description 06/01/2014 Pt. Non Urgent Medical Question Adult Medicine [facility] [address] [place] [address] Lavell Marcos MD [address] [place] [address] Social History Tobacco Use Types Packs/Day Years [...] Progress Notes * Adelina Burgess M.A. - 06/01/2014 5:00 PM EDTFrom: Adelina Tavarez To: Lavell Marcos MD Sent: 06/01/2014 4:54 PM EDT Subject: Problem Hope everything is well with you. I have something going on with me. It seems that my body is always wound up it feels like the nerve endings. Check with Dr. Carter put me on a tranquilizer. Can't betaking tranqulizers all the time I think something is going on. Neurontin helps came it down but makes me feel out of it. Last week during the night my heart was pounding and beating very fast woke me up. No dreaming. I was very concerned went in for blood work stopped in to see if Renee had any cancellation sent me to Cardiac Dept. to see if she was available but got into trouble. Didn't plan on stopping only to see if she had a cancellation. She was not available have one in June. Friday came home from pulmonary rehab was light headed. When I went to bed put my head on pillow I was very light headed. Went to pulmonary rehab on Fri. problems breathing they told me something was going on Iwas not the same. They took my blood pressure 144/76 not concerned about 76 but 144 & 130 is high for me. some medicines I take do cause the nerve ending to rev up and I take Neurontin to calm them down. This seems to be a constant problem any ideas having a hard time dealing with this. Thanks Adelina Tavarez documented in this encounter Plan of Treatment Not on file documented as of this encounter Visit Diagnoses Not on filedocumented in this encounter Care Teams Legal Researcher Relationship Specialty Start Date End Date Lavell Marcos MD [address] [place] [address] PCP - General 04/06/07 02/08/21 Jennifer Sylvester MD [address] [place] [address] PCP - General Internal Medicine 02/09/21 01/22/23 [facility]ly [facility], [address] [address] PCP - General Internal Medicine 01/23/23 documented as of this encounter
--- OUTSIDE RECORDS SUMMARY | 2024-12-01 09:04 | XMS_ITS | Encounter Summary ---
Author Organization [facility] Address [address] [place] [address] Care Team Providers Care Director Clinical Applications Name Role Phone Lavell Marcos MD Primary Care Provider [phone] Jennifer Sylvester MD Primary Care Provider [phone] [facility], Pcp Primary Care Provider Unavailabl e Reason for Referral * - Authorized/Booked Specialty Diagnoses / Procedures Referred By Olesya rodríguez Referred To Contact Endocrinology Diagnoses Palpitations Mixed hyperlipidemia Procedures REFERRAL TO ENDOCRINOLOGY Lavell Marcos MD [address] [place] [address] [facility] [address] Referral ID Status Reason Start Date Expiration Date V isits Requested Visits Authorized NOT REQUIRED Authorized/ Booked 06/27/2014 06/27/2015 1 1 Encounter Details Date Type Department Care Team Description 06/23/2014 Pt. Non Urgent [place] [address] Ciera Real MD Palpitations; Mixed hyperlipidemia Social History Tobacco Use Types Packs/Day Years [...] Progress Notes * Adelina Burgess M.A. - 06/24/2014 2:24 PM EDTFrom: Adelina Tavarez To: Ciera Real MD Sent: 06/23/2014 8:07 PM EDT Subject: Pheochromocytoma Is it possible to get a CT Scan or MRI of the upper abdomen to check out Pheochromocytoma before myappt on 07/21. I do have some of the symptoms, Irritability, nervousness, paleness, palpitations, rapid heart rate, high blood pressure. When I have the attacks they do last for a long time and are severe enough to be taking valium 2 to 3 times a day or see a specialist. I don't see any results fromblood work. Thanks Adelina Tavarez documented in this encounter Plan of Treatment Not on file documented as of this encounter Visit Diagnoses Diagnosis Palpitations Mixed hyperlipidemia documented in this encounter Care Teams Director Clinical Applications Relationship Specialty Start Date End Date Lavell Marcos MD [address] [place], [place] [phone] PCP - General 04/06/07 02/08/21 Jennifer Sylvester MD [address] [place] [address] PCP - General Internal Medicine 02/09/21 01/22/23 [facility], [address] [address] PCP - General Internal Medicine 01/23/23 documented as of this encounter
--- OUTSIDE RECORDS SUMMARY | 2024-12-01 09:05 | XMS_ITS | Encounter Summary ---
Author Organization [facility] Address [address] [place] [address] Care Team Providers Care Septic Technician Name Role Phone Lavell Marcos MD Primary Care Provider [phone] Jennifer Sylvester MD Primary Care Provider [phone] [facility], Pcp Primary Care Provider Unavailabl e Encounter Details Date Type Department Care Team Description 04/22/2014 Denier Control Operator Report Medical Records [address] [place] [address] Eduardo Lino MD Social History Tobacco Use [...] on filedocumented in this encounter Care Teams Septic Technician Relationship Specialty Start Date End Date Lavell Marcos MD [address] [place] [address] PCP - General 04/06/07 02/08/21 Jennifer Sylvester MD [address] [place] [address] PCP - General Internal Medicine 02/09/21 01/22/23 [facility], Pcp [address] [place] [address] PCP - General Internal Medicine 01/23/23 documented as of this encounter
--- OUTSIDE RECORDS SUMMARY | 2024-12-01 09:05 | XMS_ITS | Encounter Summary ---
Author Organization [facility] Address [address] [place] [address] Care Team Providers Care Numerical Control Lathe Operator Name Role Phone Lavell Marcos MD Primary Care Provider [phone] Jennifer Sylvester MD Primary Care Provider [facility], Pcp Primary Care Provider Unavailabl e Encounter Details Date Type Department Care Team Description 01/03/2018 Hospital Medical Records [address] [place], [place] [id number] Govind Munguia Social History Tobacco Use Types Packs/Day Years [...] on filedocumented in this encounter Care Teams Numerical Control Lathe Operator Relationship Specialty Start Date End Date Lavell Marcos MD [address] [place] [address] PCP - General 04/06/07 02/08/21 Jennifer Sylvester MD [address] [place] [address] PCP - General Internal Medicine 02/09/21 01/22/23 [facility], Pcp [address] [place] [address] PCP - General Internal Medicine 01/23/23 documented as of this encounter
--- OUTSIDE RECORDS SUMMARY | 2024-12-01 09:05 | XMS_ITS | Encounter Summary ---
Author Organization [facility] Address [address] [place] [address] Care Team Providers Care Software Engineer [place] Name Role Phone Lavell Marcos MD Primary Care Provider [phone] Jennifer Sylvester MD Primary Care Provider [phone] [facility], Pcp Primary Care Provider Unavailabl e Encounter Details Date Type Department Care Team Description 11/15/2011 Hospital Medical Records [address] [place] [address] Lakia Enriquez, [address] [address] Social History Tobacco Use Types Packs/Day Years [...] on filedocumented in this encounter Care Teams Software Engineer [place] Relationship Specialty Start Date End Date Lavell Marcos MD [address] [place] [address] PCP - General 04/06/07 02/08/21 Jennifer Sylvester MD [address] [place] [address] PCP - General Internal Medicine 02/09/21 01/22/23 [facility], Pcp [address] [place] [address] PCP - General Internal Medicine 01/23/23 documented as of this encounter
--- OUTSIDE RECORDS SUMMARY | 2024-12-01 09:05 | XMS_ITS | Encounter Summary ---
Author Organization [facility] Address [address] [place] [address] Care Team Providers Care Pediatrician Name Role Phone Lavell Marcos MD Primary Care Provider Jennifer Sylvester MD Primary Care Provider [phone] [facility], Pcp Primary Care Provider [facility] Encounter Details Date Type Department Care Team Description 03/23/2014 Chemical Pathologist Report Medical Records [address] [place] [address] Augie Braga MD Social History Tobacco Use [...] on filedocumented in this encounter Care Teams Pediatrician Relationship Specialty Start Date End Date Lavell Marcos MD [address] [place] [address] PCP - General 04/06/07 02/08/21 Jennifer Sylvester MD [address] [place] [address] PCP - General Internal Medicine 02/09/21 01/22/23 [facility], Pcp [address] [place] [address] PCP - General Internal Medicine 01/23/23 documented as of this encounter
--- OUTSIDE RECORDS SUMMARY | 2024-12-01 09:05 | XMS_ITS | Encounter Summary ---
Author Organization [facility] Address [address] [place] [address] Care Team Providers Care Life Cycle Assessment Analyst Name Role Phone Lavell Marcos MD Primary Care Provider Jennifer Sylvester MD Primary Care Provider [phone] [facility], Pcp Primary Care Provider [facility] Encounter Details Date Type Department Care Team Description 04/28/2014 Douper Report Medical Records [address] [place], [place] [id number] Rich Beatty Social History Tobacco Use Types [...] on filedocumented in this encounter Care Teams Life Cycle Assessment Analyst Relationship Specialty Start Date End Date Lavell Marcos MD [address] [place] [address] PCP - General 04/06/07 02/08/21 Jennifer Sylvester MD [address] [place] [address] PCP - General Internal Medicine 02/09/21 01/22/23 [facility], Pcp [address] [place] [address] PCP - General Internal Medicine 01/23/23 documented as of this encounter
--- OUTSIDE RECORDS SUMMARY | 2024-12-01 09:05 | XMS_ITS | Encounter Summary ---
Author Organization [facility] Address [address] [place] [address] Care Team Providers Care Forming Machine Upkeep Mechanic Name Role Phone Lavell Marcos MD Primary Care Provider Jennifer Sylvester MD Primary Care Provider [facility], Pcp Primary Care Provider Unavailabl e Encounter Details Date Type Department Care Team Description 05/13/2014 Medication Nurse Report Medical Records [address] [place] [address] Eduardo Lino MD Social History Tobacco Use [...] on filedocumented in this encounter Care Teams Forming Machine Upkeep Mechanic Relationship Specialty Start Date End Date Lavell Marcos MD [address] [place] [address] PCP - General 04/06/07 02/08/21 Jennifer Sylvester MD [address] [place] [address] PCP - General Internal Medicine 02/09/21 01/22/23 [facility], Pcp [address] [place] [address] PCP - General Internal Medicine 01/23/23 documented as of this encounter
--- OUTSIDE RECORDS SUMMARY | 2024-12-01 09:05 | XMS_ITS | Encounter Summary ---
Author Organization [facility] Address [address] [place] [address] Care Team Providers Care Family Living Educator Name Role Phone Lavell Harding MD Primary Care Provider [phone] Jennifer Sylvester MD Primary Care Provider [phone] [facility], Pcp Primary Care Provider Unavailabl e Reason for Referral * Non MARYAM (Routine) - Authorized/Booked Specialty Diagnoses / Procedures Referred By Olesya rodríguez Referred To Contact Gastroenterology Procedures REFERRAL TO GASTROENTEROLOGY Sam Santiago PA-C [address] [place] [address] [place] [address] Referral ID Status Reason Start Date Expiration Date V isits Requested Visits Authorized [id number] Authorized/B ooked 01/07/2018 01/07/2019 1 1 Reason for Visit * Reason Onset Date Comments REFERRAL 01/06/2018 Encounter Details Date Type Department Care Team Description 01/06/2018 Telephone [place] [address] Roger Erazo MD REFERRAL Social History Tobacco Use Types Packs/Day Years [...] Miscellaneous Notes * Telephone Encounter - Sam Santiago PA-C - 01/07/2018 10:53 AM EST Ok ordered referral Sam Santiago PA-C * Telephone Encounter - Lakia Verde M.A. - 01/07/2018 9:49 AM EST Please review and advise. Thank you * Telephone Encounter - Felicia Pierre - 01/06/2018 2:58 PM EST Patient needs a new order to be seen in gastro for Indigestion, and nausea. She said she was seen at [facility]. Patient has a follow up with dr harding on 01/22/18. Can you place order so we can schedule Her? documented in this encounter Plan of Treatment Not on file documented as of this encounter Visit Diagnoses Not on filedocumented in this encounter Care Teams Family Living Educator Relationship Specialty Start Date End Date Lavell Harding MD [address] [place] [address] PCP - General 04/06/07 02/08/21 Jennifer Sylvester MD [address] [place] [address] PCP - General Internal Medicine 02/09/21 01/22/23 [facility], [address] [address] PCP - General Internal Medicine 01/23/23 documented as of this encounter
--- OUTSIDE RECORDS SUMMARY | 2024-12-01 09:05 | XMS_ITS ---
Author Organization [facility] Lily archer Seney Address [address] [place] [address] Care Team Providers Care Make Up Artist Name Role Phone Abby Potter Primary Care Provider Charity Castro [phone] Encounters Encounter Location Date Provider Diagnosis [address] [address] 11/29/2024 Charity Marquez Plan Of Treatment No Information Progress Notes * Adelina TAVAREZ ADOB:[birth year] (79 yo F)Acc No.[id number]:11/29/2024 Progress Note Patient:?MELANIE Adelina Rohan Provider:?Charity Marquez DPM :1945???Age:79 Y???Sex:Female D ate:11/29/2024 Address:[address] [place] [address] [facility] Pcp:Abby Potter Subjective: * Chief Complaints: * ??? * Medical History:? Objective: * Vitals:? Assessment: Plan: * Treatment: * Images: * The named appointment provid er may or may not be the originator of this progress note, and it is not deemed complete until electronically signed by the appointment provider. Sign off status: Pending * Provider:Jahaira Marquez DPM Date:?2024 Generated for Carmelina baekr/[place]/eTransmitting on:?12/01/2024 09:05 AM EST
--- OUTSIDE RECORDS SUMMARY | 2024-12-01 09:05 | XMS_ITS | Encounter Summary ---
Author Organization [facility] Address [address] [place] [address] Care Team Providers Care Senior Government Program Analyst Name Role Phone Lavell Marcos MD Primary Care Provider [phone] Jennifer Sylvester MD Primary Care Provider [phone] [facility], Pcp Primary Care Provider [facility] Encounter Details Date Type Department Care Team Description 04/14/2014 Urban Planning Professor Report Medical Records [address] [place], [place] [id number] Rich Beatty Social History Tobacco Use Types [...] on filedocumented in this encounter Care Teams Senior Government Program Analyst Relationship Specialty Start Date End Date Lavell Marcos MD [address] [place] [address] PCP - General 04/06/07 02/08/21 Jennifer Sylvester MD [address] [place] [address] PCP - General Internal Medicine 02/09/21 01/22/23 [facility], Pcp [address] [place] [address] PCP - General Internal Medicine 01/23/23 documented as of this encounter
--- OUTSIDE RECORDS SUMMARY | 2024-12-01 09:05 | XMS_ITS | Encounter Summary ---
Author Organization [facility] Address [address] [place] [address] Care Team Providers Care Production Sanitizer Name Role Phone Lavell Marcos MD Primary Care Provider [phone] Jennifer Sylvester MD Primary Care Provider [phone] Replaced By [facility], Pcp Primary Care Provider [facility] Encounter Details Date Type Department Care Team Description 04/08/2014 Pattern Assembler Report Medical Records [address] [place], [place] [id number] Rich Beatty Social History Tobacco Use Types [...] on filedocumented in this encounter Care Teams Production Sanitizer Relationship Specialty Start Date End Date Lavell Marcos MD [address] [place] [address] PCP - General 04/06/07 02/08/21 Jennifer Sylvester MD [address] [place] [address] PCP - General Internal Medicine 02/09/21 01/22/23 [facility], Pcp [address] [place] [address] PCP - General Internal Medicine 01/23/23 documented as of this encounter
--- OUTSIDE RECORDS SUMMARY | 2024-12-01 09:05 | XMS_ITS | Encounter Summary ---
Author Organization [facility] Address [address] [place] [address] Care Team Providers Care Systems Engineering Manager Name Role Phone Lavell Marcos MD Primary Care Provider [phone] Jennifer Sylvester MD Primary Care Provider [phone] [facility], Pcp Primary Care Provider Unavailabl e Encounter Details Date Type Department Care Team Description 02/28/2014 Speech Language Pathologist Report Medical Records [address] [place] [address] Eduardo Lino MD Social History Tobacco Use [...] on filedocumented in this encounter Care Teams Systems Engineering Manager Relationship Specialty Start Date End Date Lavell Marcos MD [address] [place] [address] PCP - General 04/06/07 02/08/21 Jennifer Sylvester MD [address] [place] [address]500 PCP - General Internal Medicine 02/09/21 01/22/23 [facility], Pcp [address] [place] [address] PCP - General Internal Medicine 01/23/23 documented as of this encounter
--- OUTSIDE RECORDS SUMMARY | 2024-12-01 09:05 | XMS_ITS | Encounter Summary ---
Author Organization [facility] Address [address] [place] [address] Care Team Providers Care Granite Polisher Machine Name Role Phone Lavell Marcos MD Primary Care Provider [phone] Jennifer Sylvester MD Primary Care Provider [phone] [facility], Pcp Primary Care Provider [facility] Encounter Details Date Type Department Care Team Description 03/29/2014 Auto Technician Mechanic Report Medical Records [address] [place], [place] [id number] Rich Beatty Social History Tobacco Use Types [...] on filedocumented in this encounter Care Teams Granite Polisher Machine Relationship Specialty Start Date End Date Lavell Marcos MD [address] [place] [address] PCP - General 04/06/07 02/08/21 Jennifer Sylvester MD [address] [place] [address] PCP - General Internal Medicine 02/09/21 01/22/23 [facility], Pcp [address] [place] [address] PCP - General Internal Medicine 01/23/23 documented as of this encounter
--- OUTSIDE RECORDS SUMMARY | 2024-12-01 09:06 | XMS_ITS | Encounter Summary ---
Author Organization [facility] Address [address] [place] [address] Care Team Providers Care General Manager Road Production Name Role Phone Lavell Marcos MD Primary Care Provider [phone] Jennifer Sylvester MD Primary Care Provider [phone] [facility], Pcp Primary Care Provider Unavailabl e Encounter Details Date Type Department Care Team Description 08/11/2017 Printing Mechanist Report Medical Records [address] [place] [address] Eduardo Lino MD Social History Tobacco Use [...] on filedocumented in this encounter Care Teams General Manager Road Production Relationship Specialty Start Date End Date Lavell Marcos MD [address] [place] [address] PCP - General 04/06/07 02/08/21 Jennifer Sylvester MD [address] [place] [address]673 PCP - General Internal Medicine 02/09/21 01/22/23 Community, Pcp [address] [place] [address] PCP - General Internal Medicine 01/23/23 documented as of this encounter
--- OUTSIDE RECORDS SUMMARY | 2024-12-01 09:06 | XMS_ITS | Encounter Summary ---
Author Organization [facility] Address [address] [place] [address] Care Team Providers Care Electrician Research Name Role Phone Lavell Marcos MD Primary Care Provider [phone] Jennifer Sylvester MD Primary Care Provider [phone] [facility], Pcp Primary Care Provider Unavailabl e Encounter Details Date Type Department Care Team Description 02/04/2019 Delinquent Notice Machine Operator Report Medical Records [address] [place] [address] Raj Hardwick MD Social History Tobacco Use [...] on filedocumented in this encounter Care Teams Electrician Research Relationship Specialty Start Date End Date Lavell Marcos MD [address] [place] [address]76 PCP - General 04/06/07 02/08/21 Jennifer Sylvester MD [address] [place] [address] 07372 PCP - General Internal Medicine 02/09/21 01/22/23 [facility], Pcp [address] [place] [address] 35012 PCP - General Internal Medicine 01/23/23 documented as of this encounter
--- OUTSIDE RECORDS SUMMARY | 2024-12-01 09:06 | XMS_ITS | Encounter Summary ---
Author Organization [facility] Address [address] [place] [address] Care Team Providers Care Mogul Operator Name Role Phone Lavell Marcos MD Primary Care Provider [phone] Jennifer Sylvester MD Primary Care Provider [phone] [facility], Pcp Primary Care Provider [facility] e Encounter Details Date Type Department Care Team Description 11/30/2013 Pt. Non Urgent Medical Question Adult Medicine [facility] [address] [place] [address] Radha Alarcon PA-C [address] [place] [address] Social History Tobacco Use Types Packs/Day Years Used Date Smoking Tobacco: Never Smokeless Tobacco: Never Alcohol Use Standard Drinks/Week Comments Not Asked 0 (1 standard drink = 0.6 oz pur e alcohol) Sex Assigned at Date Recorded Not on file Job Start Date Occupation Industry Not on file Not on file Not on file documented as of this encounter Progress Notes * Rachna HongP.N. - 12/01/2013 8:36 AM ESTFrom: ADELINA TAVAREZ To: Radha Alarcon PA-C Sent: FriNov 30, 2013 7:10 PM Subject: Monitor Kourtney, I haven't received any info on monitor reading that must be good news but that has not been confirmed with me. Adelina documented in this encounter Plan of Treatment Not on file documented as of this encounter Visit Diagnoses Not on filedocumented in this encounter Care Teams Mogul Operator Relationship Specialty Start Date End Date Lavell Marcos MD [address] [place] [address] PCP - General 04/06/07 02/08/21 Jennifer Sylvester MD [address] [place] [address] PCP - General Internal Medicine 02/09/21 01/22/[address] [address] PCP - General Internal Medicine 01/23/23 documented as of this encounter
--- OUTSIDE RECORDS SUMMARY | 2024-12-01 09:06 | XMS_ITS | Encounter Summary ---
Author Organization [facility] Address [address] [place] [address] Care Team Providers Care Book Cutter Name Role Phone Lavell Marcos MD Primary Care Provider [phone] Jennifer Sylvester MD Primary Care Provider [facility], Pcp Primary Care Provider Unavailabl e Encounter Details Date Type Department Care Team Description 01/06/2020 Garment Finisher Report Medical Records [address] [place] [address] Johnna Serna MD Social History Tobacco Use [...] on filedocumented in this encounter Care Teams Book Cutter Relationship Specialty Start Date End Date Lavell Marcos MD [address] [place] [address] PCP - General 04/06/07 02/08/21 Jennifer Sylvester MD [address] [place] [address] PCP - General Internal Medicine 02/09/21 01/22/23 [facility], Pcp [address] [place] [address] PCP - General Internal Medicine 01/23/23 documented as of this encounter
--- OUTSIDE RECORDS SUMMARY | 2024-12-01 09:06 | XMS_ITS | Encounter Summary ---
Author Organization [facility] Address [address] [place] [address] Care Team Providers Care Automotive Parts Person Name Role Phone Lavell Marcos MD Primary Care Provider Jennifer Sylvester MD Primary Care Provider [phone] [facility], Pcp Primary Care Provider Unavailabl e Reason for Visit * Reason Onset Date Comments other 02/23/2019 Encounter Details Date Type Department Care Team Description 02/23/2019 Telephone Pulmonology - [address] [place] [address] Eduardo Lino MD other Social History Tobacco Use Types Packs/Day Years [...] encounter Miscellaneous Notes * Telephone Encounter - Eduardo Lino MD - 02/23/2019 4:31 PM EDT Called ok to have CT chest with titanium. Ok to have MRI if she only has titanium, but needs to make sure she does not have any other metal used for her fixation of her spine * Telephone Encounter - Echo Jackson M.A. - 02/23/2019 3:38 PM EDT See below * Telephone Encounter - Rona Lino - 02/23/2019 12:15 PM EDT Pt calling she its having an RMI appointment next week and needs to speak with Dr. Lino. (did not want to elaborate) documented in this encounter Plan of Treatment Not on file documented as of this encounter Visit Diagnoses Not on filedocumented in this encounter Care Teams Automotive Parts Person Relationship Specialty Start Date End Date Lavell Marcos MD [address] [place] [address] PCP - General 04/06/07 02/08/21 Jennifer Sylvester MD [address] [place] [address] 16138 PCP - General Internal Medicine 02/09/21 01/22/23 [facility], [address] [address] PCP - General Internal Medicine 01/23/23 documented as of this encounter
--- OUTSIDE RECORDS SUMMARY | 2024-12-01 09:07 | XMS_ITS | Encounter Summary ---
Author Organization [facility] Address [address] [place] [address] Care Team Providers Care Security Services Manager Name Role Phone Lavell Marcos MD Primary Care Provider Jennifer Sylevster MD Primary Care Provider [phone] [facility], Pcp Primary Care Provider Unavailabl e Encounter Details Date Type Department Care Team Description 12/23/2013 Rejogger Report Medical Records [address] [place], [place] [id number] Black, Charity Social History Tobacco Use Types Packs/Day Years [...] on filedocumented in this encounter Care Teams Security Services Manager Relationship Specialty Start Date End Date Lavell Marcos MD [address] [place] [address] PCP - General 04/06/07 02/08/21 Jennifer Sylvester MD [address] [place] [address] 00394 PCP - General Internal Medicine 02/09/21 01/22/23 [facility], Pcp [address] [place] [address] 14733 PCP - General Internal Medicine 01/23/23 documented as of this encounter
--- OUTSIDE RECORDS SUMMARY | 2024-12-01 09:07 | XMS_ITS | Encounter Summary ---
Author Organization [facility] Address [address] [place] [address] Care Team Providers Care Tool And Die Maker Name Role Phone Lavell Marcos MD Primary Care Provider [phone] Jennifer Sylvester MD Primary Care Provider [phone] [facility], Pcp Primary Care Provider Unavailabl e Reason for Visit * Reason Comments E-prescribe Rx Request Encounter Details Date Type Department Care Team Description 03/04/2017 Refill Adult Medicine [address] [address] Lavell Marcos MD [address] [place] [address] E-prescribe Rx Request Social History Tobacco Use Types Packs/Day Years [...] encounter Miscellaneous Notes * Telephone Encounter - Althea Colon - 03/05/2017 9:21 AM EDT Patient calling also today is her last day, will be out of medication tomorrow. * Telephone Encounter - Haydee Mart - 03/05/2017 8:37 AM EDT Patient would like script to be: E-PRESCRIBED/FAXED TO PHARMACY WHEN WAS THE PATIENT'S LAST APPOINTMENT IN ADULT MEDICINE? 12/31/16 WHEN WAS THE LAST TIME THE PATIENT SAW THEIR PCP? Same as above Does patient have an upcoming appointment? Yes 04/30/17 (THE MEDICATION REQUESTED IS ON THE MED LIST ABOVE) All of the medications requested were on the CURRENT MEDS list Did you check the Pharmacy information above?: YES Patient wants: 30 -day supply Is this a mail order prescription request ? NO Patients current insurance carrier is: Payor: ALICIA/ERINN POS / Plan: PPO $0 [facility] [id number] / Product Type: PPO [id number] documented in this encounter Plan of Treatment Not on file documented as of this encounter Visit Diagnoses Not on filedocumented in this encounter Care Teams Tool And Die Maker Relationship Specialty Start Date End Date Lavell Marcos MD [address] [place] [address]00 PCP - General 04/06/07 02/08/21 Jennifer Sylvester MD [address] [place] [address] 28212 PCP - General Internal Medicine 02/09/21 [facility]/22/23 [facility] [address] [place] [address] PCP - General Internal Medicine 01/23/23 documented as of this encounter
--- OUTSIDE RECORDS SUMMARY | 2024-12-01 09:07 | XMS_ITS | Encounter Summary ---
Author Organization [facility] Address [address] [place] [address] Care Team Providers Care Assistant Statistician Name Role Phone Lavell Marcos MD Primary Care Provider Jennifer Sylvester MD Primary Care Provider [phone] [facility], Pcp Primary Care Provider Unavailabl e Encounter Details Date Type Department Care Team Description 09/29/2019 Car Blocker Report Medical Records [address] [place] [address] Rafat Gregorio MD Social History Tobacco Use [...] on filedocumented in this encounter Care Teams Assistant Statistician Relationship Specialty Start Date End Date Lavell Marcos MD [address] [place] [address] PCP - General 04/06/07 02/08/21 Jennifer Sylvester MD [address] [place] [address] PCP - General Internal Medicine 02/09/21 01/22/23 [facility], Pcp [address] [place] [address] 24971 PCP - General Internal Medicine 01/23/23 documented as of this encounter
--- OUTSIDE RECORDS SUMMARY | 2024-12-01 09:08 | XMS_ITS | Encounter Summary ---
Author Organization [facility] Address [address] [place] [address] Care Team Providers Care Char Belt Operator Name Role Phone Lavell Marcos MD Primary Care Provider [phone] Jennifer Sylvester MD Primary Care Provider [facility], Pcp Primary Care Provider Unavailabl e Encounter Details Date Type Department Care Team Description 10/12/2019 Old Medical Records Medical Records [address] [place] [address] Abstract, Provider Social History Tobacco Use Types [...] on filedocumented in this encounter Care Teams Char Belt Operator Relationship Specialty Start Date End Date Lavell Marcos MD [address] [place] [address] PCP - General 04/06/07 02/08/21 Jennifer Sylvester MD [address] [place] [address] [phone] PCP - General Internal Medicine 02/09/21 01/22/23 [facility], Pcp [address] [place] [address] PCP - General Internal Medicine 01/23/23 documented as of this encounter
--- OUTSIDE RECORDS SUMMARY | 2024-12-01 09:08 | XMS_ITS | Encounter Summary ---
Author Organization [facility] Address [address] [place] [address] Care Team Providers Care Software Quality Tester Name Role Phone Lavell Marcos MD Primary Care Provider [phone] Jennifer Sylvester MD Primary Care Provider [phone] [facility], Pcp Primary Care Provider [facility] Encounter Details Date Type Department Care Team Description 11/15/2019 Plastic Parts Designer Report Medical Records [address] [place] [address] Bib Sandoval MD Social History Tobacco Use Types Packs/Day [...] filedocumented in this encounter Care Teams Software Quality Tester Relationship Specialty Start Date End Date Lavell Marcos MD [address] [place] [address] PCP - General 04/06/07 02/08/21 Jennifer Sylvester MD [address] [place] [address] 45900 PCP - General Internal Medicine 02/09/21 01/22/23 [facility], Pcp [address] [place] [address] 17305 PCP - General Internal Medicine 01/23/23 documented as of this encounter
--- OUTSIDE RECORDS SUMMARY | 2024-12-01 09:08 | XMS_ITS | Encounter Summary ---
Author Organization [facility] Address [address] [place] [address] Care Team Providers Care Flotation Tank Operator Name Role Phone Lavell Marcos MD Primary Care Provider [phone] Jennifer Sylvester MD Primary Care Provider [phone] [facility], Pcp Primary Care Provider Unavailabl e Encounter Details Date Type Department Care Team Description 12/19/2016 Business Doc Medical Records [address] [place] [address] Abstract, Provider Social History Tobacco Use Types [...] on filedocumented in this encounter Care Teams Flotation Tank Operator Relationship Specialty Start Date End Date Lavell Marcos MD [address] [place] [address] 12841 PCP - General 04/06/07 02/08/21 Jennifer Sylvester MD [address] [place] [address] [phone] PCP - General Internal Medicine 02/09/21 01/22/23 [facility], Pcp [address] [place] [address] 69349 PCP - General Internal Medicine 01/23/23 documented as of this encounter
--- OUTSIDE RECORDS SUMMARY | 2024-12-01 09:08 | XMS_ITS | Encounter Summary ---
Author Organization [facility] Address [address] [place] [address] Care Team Providers Care Rig Operator Name Role Phone Lavell Marcos MD Primary Care Provider [phone] Jennifer Sylvester MD Primary Care Provider [phone] [facility], Pcp Primary Care Provider Unavailabl e Encounter Details Date Type Department Care Team Description 04/28/2017 Orders Only Adult Medicine [address] [address] Sam Santiago PA-C [address] [place] [address] Other dysphagia Social History Tobacco Use Types Packs/Day Years [...] Procedure Name Priority Date/Time Associated Diagnosis Comments CHG RADIOLOGIC EXAM ESOPHAGU S SINGLE CONTRAST STUDY Routine 04/23/2017 Other dysphagia documented in this encounter Results * BARIUM SWALLOW (04/23/2017) Sam Santiago PA-C RADIOLOGY documented in this encounter Visit Diagnoses Diagnosis Other dysphagia documented in this encounter Care Teams Rig Operator Relationship Specialty Start Date End Date Lavell Marcos MD [address] [place] [address] PCP - General 04/06/07 02/08/21 Jennifer Sylvester MD [address] [place] [address] PCP - General Internal Medicine 02/09/21 01/22/23 [facility], Pcp [address] [place] [address] PCP - General Internal Medicine 01/23/23 documented as of this encounter
--- OUTSIDE RECORDS SUMMARY | 2024-12-01 09:08 | XMS_ITS | Encounter Summary ---
Author Organization [facility] Address [address] [place] [address] Care Team Providers Care System Administration Advisor Name Role Phone Lavell Marcos MD Primary Care Provider [phone] Jennifer Sylvester MD Primary Care Provider [phone] Formerly [facility], Pcp Primary Care Provider Unavailabl e Reason for Visit * Reason Comments E-prescribe Rx Request Encounter Details Date Type Department Care Team Description 04/07/2017 Refill Adult Medicine [address] [address] Lavell Marcos MD [address] [place] [address] E-prescribe Rx Request Social History Tobacco Use [...] encounter Miscellaneous Notes * Telephone Encounter - Yana Magana M.A. - 04/08/2017 8:29 AM EDT Lab Results Component Value Date CHOL 163 06/26/2016 LDL 70 06/26/2016 HDL 82 06/26/2016 TRIG 54 06/26/2016 SGOT 15 06/26/2016 SGPT 5 06/26/2016 * Telephone Encounter - Eda Rios - 04/08/2017 8:24 AM EDT Patient would like script to [...] NO Patients current insurance carrier is: Payor: CARO/PPO POS / Plan: PPO $0 [employer] [id number] / Product Type: PPO [id number] documented in this encounter Plan of Treatment Not on file documented as of this encounter Visit Diagnoses Not on filedocumented in this encounter Care Teams System Administration Advisor Relationship Specialty Start Date End Date Lavell Marcos MD [address] [place] [address] PCP - General 04/06/07 02/08/21 Jennifer Sylvester MD [address] [place] [address] [phone] PCP - General Internal Medicine 02/09/21 01/22/23 Joe Garay [address] [place] [address] PCP - General Internal Medicine 01/23/23 documented as of this encounter
--- OUTSIDE RECORDS SUMMARY | 2024-12-01 09:08 | XMS_ITS | Encounter Summary ---
Author Organization [facility] Address [address] [place] [address] Care Team Providers Care Tick Eradicator Name Role Phone Lavell Marcos MD Primary Care Provider [phone] Jennifer Sylvester MD Primary Care Provider [phone] [facility], Pcp Primary [facility] Encounter Details Date Type Department Care Team Description 09/22/2019 Ferry Captain Report Medical Records [address] [place] [address] 32320 Bib Sandoval MD Social History Tobacco Use [...] on filedocumented in this encounter Care Teams Tick Eradicator Relationship Specialty Start Date End Date Lavell Marcos MD [address] [place] [address] 96047 PCP - General 04/06/07 02/08/21 Jennifer Sylvester MD [address] [place] [address] 57798 PCP - General Internal Medicine 02/09/21 01/22/23 [facility], Pcp [address] [place] [address] 43944 PCP - General Internal Medicine 01/23/23 documented as of this encounter
--- OUTSIDE RECORDS SUMMARY | 2024-12-01 09:08 | XMS_ITS | Encounter Summary ---
Author Organization [facility] Address [address] [place] [address] Care Team Providers Care Mattress Stripper Name Role Phone Lavell Marcos MD Primary Care Provider [phone] Jennifer Sylvester MD Primary Care Provider [phone] [facility], Pcp Primary Care Provider Unavailabl e Encounter Details Date Type Department Care Team Description 08/17/2019 All Source Intelligence Technician Report Medical Records [address] [place] [address] 19844 Eduardo Lino MD Social History Tobacco Use [...] filedocumented in this encounter Care Teams Mattress Stripper Relationship Specialty Start Date End Date Lavell Marcos MD [address] [place] [address] 77684 PCP - General 04/06/07 02/08/21 Jennifer Sylvester MD [address] [place] [address] 25252 PCP - General Internal Medicine 02/09/21 01/22/23 [facility], Pcp [address] [place] [address] 02034 PCP - General Internal Medicine 01/23/23 documented as of this encounter
--- OUTSIDE RECORDS SUMMARY | 2024-12-01 09:08 | XMS_ITS | Encounter Summary ---
Author Organization [facility] Address [address] [place] [address] Care Team Providers Care Watch Repair Person Name Role Phone Lavell Marcos MD Primary Care Provider [phone] Jennifer Sylvester MD Primary Care Provider [phone] [facility], Pcp Primary Care Provider Unavailabl e Encounter Details Date Type Department Care Team Description 11/10/2019 Hospital Medical Records [address] [place] [address] 57149 Augie Braga MD Social History Tobacco Use [...] on filedocumented in this encounter Care Teams Watch Repair Person Relationship Specialty Start Date End Date Lavell Marcos MD [address] [place] [address] 51239 PCP - General 04/06/07 02/08/21 Jennifer Sylvester MD [address] [place] [address] 74814 PCP - General Internal Medicine 02/09/21 01/22/23 [facility], Pcp [address] [place] [address] 06370 PCP - General Internal Medicine 01/23/23 documented as of this encounter
--- OUTSIDE RECORDS SUMMARY | 2024-12-01 09:08 | XMS_ITS | Encounter Summary ---
Author Organization [facility] Address [address] [place] [address] Care Team Providers Care Mold Car Pusher Name Role Phone Lavell Marcos MD Primary Care Provider Jennifer Sylvester MD Primary Care Provider [facility], Pcp Primary Care Provider Unavailabl e Encounter Details Date Type Department Care Team Description 12/01/2019 Gin Pole Operator Report Medical Records [address] [place] [address] 71090 Augie Braga MD Social History Tobacco Use [...] on filedocumented in this encounter Care Teams Mold Car Pusher Relationship Specialty Start Date End Date Lavell Marcos MD [address] [place] [address] 85036 PCP - General 04/06/07 02/08/21 Jennifer Sylvester MD [address] [place] [address] 26473 PCP - General Internal Medicine 02/09/21 01/22/23 [facility], Pcp [address] [place] [address] 44993 PCP - General Internal Medicine 01/23/23 documented as of this encounter
--- OUTSIDE RECORDS SUMMARY | 2024-12-01 09:08 | XMS_ITS | Encounter Summary ---
Author Organization [facility] Address [address] [place] [address] Care Team Providers Care Central Supply Supervisor Name Role Phone Lavell Marcos MD Primary Care Provider [phone] Jennifer Sylvester MD Primary Care Provider [phone] [facility], Pcp Primary Care Provider Unavailabl e Encounter Details Date Type Department Care Team Description 2019 Application Packaging Specialist Report Medical Records [address] [place] [address] 20981 Reji White MD [address] [place] [address] 86042 Social History Tobacco Use Types Packs/Day Years [...] on filedocumented in this encounter Care Teams Central Supply Supervisor Relationship Specialty Start Date End Date Lavell Marcos MD [address] [place] [address] [phone] PCP - General 04/06/07 02/08/21 Jennifer Sylvester MD [address] [place] [address] 84503 PCP - General Internal Medicine 02/09/21 01/22/23 [facility], Pcp [address] [place] [address] 39961 PCP - General Internal Medicine 01/23/23 documented as of this encounter
--- OUTSIDE RECORDS SUMMARY | 2024-12-01 09:08 | XMS_ITS | Encounter Summary ---
Author Organization [facility] Address [address] [place] [address] Care Team Providers Care Pmo Analyst Name Role Phone Lavell Marcos MD Primary Care Provider [phone] Jennifer Sylvester MD Primary Care Provider [phone] [facility], Pcp Primary Care Provider Unavailabl e Encounter Details Date Type Department Care Team Description 11/16/2019 Database Security Expert Report Medical Records [address] [place] [address] 89863 Eduardo Lino MD Social History Tobacco Use [...] on filedocumented in this encounter Care Teams Pmo Analyst Relationship Specialty Start Date End Date Lavell Marcos MD [address] [place] [address] 02895 PCP - General 04/06/07 02/08/21 Jennifer Sylvester MD [address] [place] [address] 94853 PCP - General Internal Medicine 02/09/21 01/22/23 [facility], Pcp [address] [place] [address] 91875 PCP - General Internal Medicine 01/23/23 documented as of this encounter
--- OUTSIDE RECORDS SUMMARY | 2024-12-01 09:08 | XMS_ITS | Encounter Summary ---
Author Organization [facility] Address [address] [place] [address] Care Team Providers Care Fire Engineer Name Role Phone Lavell Marcos MD Primary Care Provider Jennifer Sylvester MD Primary Care Provider [facility], Pcp Primary [facility] Encounter Details Date Type Department Care Team Description 08/02/2013 Story Analyst Report Medical Records [address] [place] [address] 20796 Bib Sandoval MD Social History Tobacco Use [...] on filedocumented in this encounter Care Teams Fire Engineer Relationship Specialty Start Date End Date Lavell Marcos MD [address] [place] [address] 14672 PCP - General 04/06/07 02/08/21 Jennifer Sylvester MD [address] [place] [address] 92029 PCP - General Internal Medicine 02/09/21 01/22/23 [facility], Pcp [address] [place] [address] 64353 PCP - General Internal Medicine 01/23/23 documented as of this encounter
--- OUTSIDE RECORDS SUMMARY | 2024-12-01 09:09 | XMS_ITS | Encounter Summary ---
Author Organization [facility] Address [address] [place] [address] Care Team Providers Care Booth Usher Name Role Phone Lavell Marcos MD Primary Care Provider Jennifer Sylvester MD Primary Care Provider [facility], Pcp Primary [facility] Encounter Details Date Type Department Care Team Description 01/03/2017 Card Folder Report Medical Records [address] [place] [address] 10575 Erika Mueller NP Social History Tobacco Use Types Packs/Day Years [...] on filedocumented in this encounter Care Teams Booth Usher Relationship Specialty Start Date End Date Lavell Marcos MD [address] [place] [address] 41021 PCP - General 04/06/07 02/08/21 Jennifer Sylvester MD [address] [place] [address] 58831 PCP - General Internal Medicine 02/09/21 01/22/23 [facility], Pcp [address] [place] [address] 58676 PCP - General Internal Medicine 01/23/23 documented as of this encounter
--- OUTSIDE RECORDS SUMMARY | 2024-12-01 09:09 | XMS_ITS | Encounter Summary ---
Author Organization [facility] Address [address] [place] [address] Care Team Providers Care Canvas Shrinker Name Role Phone Lavell Marcos MD Primary Care Provider [phone] Jennifer Sylvester MD Primary Care Provider [phone] [facility], Pcp Primary Care Provider Unavailabl e Encounter Details Date Type Department Care Team Description 11/13/2012 Manager Account Management Report Medical Records [address] [place] [address] 14901 Eduardo Lino MD Social History Tobacco Use [...] on filedocumented in this encounter Care Teams Canvas Shrinker Relationship Specialty Start Date End Date Lavell Marcos MD [address] [place] [address] 33747 PCP - General 04/06/07 02/08/21 Jennifer Sylvester MD [address] [place] [address] 33820 PCP - General Internal Medicine 02/09/21 01/22/23 [facility], Pcp [address] [place] [address] 30159 PCP - General Internal Medicine 01/23/23 documented as of this encounter
--- OUTSIDE RECORDS SUMMARY | 2024-12-01 09:09 | XMS_ITS | Encounter Summary ---
Author Organization [facility] Address [address] [place] [address] Care Team Providers Care Cellar Hand Name Role Phone Lavell Marcos MD Primary Care Provider [phone] Jennifer Sylvester MD Primary Care Provider [phone] [facility], Pcp Primary Care Provider Unavailabl e Reason for Visit * Reason Onset Date Comments Echocardiogram 09/08/2012 Encounter Details Date Type Department Care Team Description 09/08/2012 Telephone Adult Medicine [address] [phone] Roselyn Tavarez PA-C Echocardiogram Social History Tobacco Use Types Packs/Day Years Used Date Smoking Tobacco: Never Alcohol Use Standard Drinks/Week Comments Not Asked 0 (1 standard drink = 0.6 oz pur e alcohol) Sex Assigned at Date Recorded Not on file Job Start Date Occupation Industry Not on file Not on file Not on file documented as of this encounter Miscellaneous Notes * Telephone Encounter - Marlena Borrero - 09/08/2012 10:24 AM EST Due to this patients insurance the order for the echocardiogram has been faxed to [address] to be done documented in this encounter Plan of Treatment Not on file documented as of this encounter Visit Diagnoses Not on filedocumented in this encounter Care Teams Cellar Hand Relationship Specialty Start Date End Date Lavell Marcos MD [address] [place] [address] [phone] PCP - General 04/06/07 02/08/21 Jennifer Sylvester MD [address] [place] [address] 01020 PCP - General Internal Medicine 02/09/21 01/22/23 [facility], Pcp [address] [place] [address] 85965 PCP - General Internal Medicine 01/23/23 documented as of this encounter
--- OUTSIDE RECORDS SUMMARY | 2024-12-01 09:09 | XMS_ITS | Encounter Summary ---
Author Organization [facility] Address [address] [place] [address] Care Team Providers Care Art Manager Name Role Phone Lavell Marcos MD Primary Care Provider Jennifer Sylvester MD Primary Care Provider [facility], Pcp Primary Care Provider Unavailabl e Encounter Details Date Type Department Care Team Description 04/08/2019 Residential Coordinator Report Medical Records [address] [place] [address] 49560 Jose Cornejo MD Social History Tobacco Use Types Packs/Day [...] on filedocumented in this encounter Care Teams Art Manager Relationship Specialty Start Date End Date Lavell Marcos MD [address] [place] [address] 68896 PCP - General 04/06/07 02/08/21 Jennifer Sylvester MD [address] [place] [address] 30562 PCP - General Internal Medicine 02/09/21 01/22/23 [facility], Pcp [address] [place] [address] 27162 PCP - General Internal Medicine 01/23/23 documented as of this encounter
--- OUTSIDE RECORDS SUMMARY | 2024-12-01 09:09 | XMS_ITS | Encounter Summary ---
Author Organization [facility] Address [address] [place] [address] Care Team Providers Care Field Marketing Associate Name Role Phone Lavell Marcos MD Primary Care Provider [phone] Jennifer Sylvester MD Primary Care Provider [phone] [facility], Pcp Primary Care Provider Unavailabl e Encounter Details Date Type Department Care Team Description 09/10/2019 Old Medical Records Medical Records [address] [place] [address] 51023 Abstract, Provider Social History Tobacco Use Types [...] on filedocumented in this encounter Care Teams Field Marketing Associate Relationship Specialty Start Date End Date Lavell Marcos MD [address] [place] [address] 41219 PCP - General 04/06/07 02/08/21 Jennifer Sylvester MD [address] [place] [address] [phone] PCP - General Internal Medicine 02/09/21 01/22/23 [facility], Pcp [address] [place] [address] 63070 PCP - General Internal Medicine 01/23/23 documented as of this encounter
--- OUTSIDE RECORDS SUMMARY | 2024-12-01 09:09 | XMS_ITS | Encounter Summary ---
Author Organization [facility] Address [address] [place] [address] Care Team Providers Care Lawyer Probate Name Role Phone Lavell Marcos MD Primary Care Provider [phone] Jennifer Sylvester MD Primary Care Provider [phone] [facility], Pcp Primary Care Provider Unavailabl e Encounter Details Date Type Department Care Team Description 02/05/2013 Member Services Coordinator Report Medical Records [address] [place] [address] 51596 Eduardo Lino MD Social History Tobacco Use [...] on filedocumented in this encounter Care Teams Lawyer Probate Relationship Specialty Start Date End Date Lavell Marcos MD [address] [place] [address] 01776 PCP - General 04/06/07 02/08/21 Jennifer Sylvester MD [address] [place] [address] 36745 PCP - General Internal Medicine 02/09/21 01/22/23 [facility], Pcp [address] [place] [address] 68912 PCP - General Internal Medicine 01/23/23 documented as of this encounter
--- OUTSIDE RECORDS SUMMARY | 2024-12-01 09:09 | XMS_ITS | Encounter Summary ---
Author Organization [facility] Address [address] [place] [address] Care Team Providers Care Aircraft Cleaning Supervisor Name Role Phone Lavell Marcos MD Primary Care Provider [phone] Jennifer Sylvester MD Primary Care Provider [facility], Pcp Primary Care Provider [facility] Encounter Details Date Type Department Care Team Description 03/05/2013 Pt. Non Urgent Medical Question Adult Medicine [facility] [address] [place] [address] Lavell Marcos MD [address] [place] [address] 08897 HYPOTHYROIDISM (Primary Dx) Social History Tobacco Use Types Packs/Day Years Used Date Smoking Tobacco: Never Alcohol Use Standard Drinks/Week Comments Not Asked 0 (1 standard drink = 0.6 oz pur e alcohol) Sex Assigned at Date Recorded Not on file Job Start Date Occupation Industry Not on file Not on file Not on file documented as of this encounter Progress Notes * Rachna Roche L.P.N. - 03/05/2013 11:18 AM EDTFrom: ADELINA TAVAREZ To: Lavell Marcos MD Sent: FriMarch 05, 2013 8:59 AM Subject: TSH Adelina Marcos, Dr. Larsen, [facility] did a TSH on 02/23/13. Result 0.09 Reference Range 0.40-5.00 The TSH seems low. When I went to the [facility] I thought my dosage was .05 Couldthis be causing my problems? Dr. Lino was concerned about the dosage might be to high. I only took .25 today. Don't know if I should have done that. (Don't know if this is a side effect but I cannot take the cold or drink something cold without freezing or shaking) I do have a 6 month follow up in April but Dr. Lino suggested another blood test [facility]) thanks Adelina. documented in this encounter Plan of Treatment Not on file documented as of this encounter Results * (ABNORMAL) BASIC METABOLIC PANEL (04/12/2013 2:05 PM EDT) GLUCOSE 95 70 - 100 mg/dL 04/12/2013 4:26 PM [facility] Comment: Reference range applicable to fasting specimens only Based on recommendations from the ADA and AACE, the fasting glucose reference range has been changed to 70-100 mg/dL. ??This change is effective March 19, 2010 BUN 10 5 - 25 mg/dL 04/12/2013 4:20 PM [facility] CREAT 0.6(L) 0.7 - 1.5 mg/dL 04/12/2013 4:23 PM [facility] GFR > 60 >60 04/12/2013 4:31 PM [facility] Comment: If patient is -[place], multiply result by 1.21 Chronic Kidney Disease: < 60 ml/min/1.73 square meters Kidney Failure: < 15 ml/min/1.73 square meters Sodium 142 133 - 145 mEq/L 04/12/2013 4:04 PM [facility] Potassium 3.8 3.5 - 5.2 mEq/L 04/12/2013 4:04 PM [facility] Chloride 105 96 - 108 mEq/L 04/12/2013 4:04 PM [facility] CO2 28.2 21.0 - 32.0 mEq/L 04/12/2013 4:23 PM [facility] CALCIUM 9.5 8.5 - 10.5 mg/dL 04/12/2013 4:26 PM [facility] 04/12/2013 2:05 PM EDT 04/12/2013 2:05 PM EDT Lavell Marcos MD [facility] [address] [place] [address] documented in this encounter Visit Diagnoses Diagnosis HYPOTHYROIDISM- Primary Unspecified hypothyroidism documented in this encounter Care Teams Aircraft Cleaning Supervisor Relationship Specialty Start Date End Date Lavell Marcos MD [address] [place] [address] 66884 PCP - General 04/06/07 02/08/21 Jennifer Sylvester MD [address] [place] [address] 38616 PCP - General Internal Medicine 02/09/21 01/22/23 [facility], [address] [address] PCP - General Internal Medicine 01/23/23 documented as of this encounter
--- OUTSIDE RECORDS SUMMARY | 2024-12-01 09:09 | XMS_ITS | Encounter Summary ---
Author Organization [facility] Address [address] [place] [address] Care Team Providers Care Customs Compliance Specialist Name Role Phone Lavell Marcos MD Primary Care Provider [phone] Jennifer Sylvester MD Primary Care Provider [phone] [facility], Pcp Primary Care Provider Unavailabl e Encounter Details Date Type Department Care Team Description 09/15/2019 Old Medical Records Medical Records [address] [place] [address] 78395 Abstract, Provider Social History Tobacco Use Types [...] on filedocumented in this encounter Care Teams Customs Compliance Specialist Relationship Specialty Start Date End Date Lavell Marcos MD [address] [place] [address] 27139 PCP - General 04/06/07 02/08/21 Jennifer Sylvester MD [address] [place] [address] [phone] PCP - General Internal Medicine 02/09/21 01/22/23 [facility], Pcp [address] [place] [address] 21952 PCP - General Internal Medicine 01/23/23 documented as of this encounter
--- OUTSIDE RECORDS SUMMARY | 2024-12-01 09:09 | XMS_ITS | Encounter Summary ---
Author Organization [facility] Address [address] [place] [address] Care Team Providers Care Ammonia Refrigeration Worker Name Role Phone Lavell Marcos MD Primary Care Provider [phone] Jennifer Sylvester MD Primary Care Provider [facility], Pcp Primary Care Provider Unavailabl e Encounter Details Date Type Department Care Team Description 10/05/2012 Special Education Teachers Report Medical Records [address] [place] [address] 87340 Eduardo Lino MD Social History Tobacco Use [...] on filedocumented in this encounter Care Teams Ammonia Refrigeration Worker Relationship Specialty Start Date End Date Lavell Marcos MD [address] [place] [address] 18060 PCP - General 04/06/07 02/08/21 Jennifer Sylvester MD [address] [place] [address] 77294 PCP - General Internal Medicine 02/09/21 01/22/23 Jarrod, Joe [address] [place] [address] 40155 PCP - General Internal Medicine 01/23/23 documented as of this encounter
--- OUTSIDE RECORDS SUMMARY | 2024-12-01 09:09 | XMS_ITS | Encounter Summary ---
Author Organization [facility] Address [address] [place] [address] Care Team Providers Care Program Writer Name Role Phone Lavell Marcos MD Primary Care Provider [phone] Jennifer Sylvester MD Primary Care Provider [phone] [facility], Pcp Primary Care Provider [facility] Encounter Details Date Type Department Care Team Description 10/14/2016 Pt. Non Urgent Medic al Question Gastroenterology - [address] [address] Roger Erazo MD Social History Tobacco Use Types Packs/Day [...] on filedocumented in this encounter Care Teams Program Writer Relationship Specialty Start Date End Date Lavell Marcos MD [address] [place] [address] 39617 PCP - General 04/06/07 02/08/21 Jennifer Sylvester MD [address] [place] [address] 22985 PCP - General Internal Medicine 02/09/21 01/22/23 [facility], [address] [address] PCP - General Internal Medicine 01/23/23 documented as of this encounter
--- OUTSIDE RECORDS SUMMARY | 2024-12-01 09:09 | XMS_ITS | Encounter Summary ---
Author Organization [facility] Address [address] [place] [address] Care Team Providers Care Cataloging Assistant Name Role Phone Jennifer Sylvester MD Primary Care Provider [phone] [facility], Pcp Primary Care Provider Unavailletty e Encounter Details Date Type Department Care Team Description 08/03/2021 Hospital Medical Records [address] [place] [address] 89877 Ned Mitchell MD Social History Tobacco Use Types Packs/Day [...] have Coronavirus / COVID-19? No / Unsure 08/01/2021 12:49 PM EDT documented as of this encounter Plan of Treatment Not on file documented as of this encounter Visit Diagnoses Not on filedocumented in this encounter Care Teams Cataloging Assistant Relationship Specialty Start Date End Date Jennifer Sylvester MD [address] [place] [address] [phone] PCP - General Internal Medicine 02/09/21 01/22/23 [facility], Pcp [address] [place] [address] 53958 PCP - General Internal Medicine 01/23/23 documented as of this encounter
--- OUTSIDE RECORDS SUMMARY | 2024-12-01 09:09 | XMS_ITS | Encounter Summary ---
Author Organization [facility] Address [address] [place] [address] Care Team Providers Care Keyboard Teacher Name Role Phone Lavell Marcos MD Primary Care Provider Jennifer Sylvester MD Primary Care Provider [phone] [facility], Pcp Primary Care Provider Unavailabl e Encounter Details Date Type Department Care Team Description 10/21/2016 Human Resources Department Supervisor Report Medical Records [address] [place] [address] 13377 Eduardo Lino MD Social History Tobacco Use [...] on filedocumented in this encounter Care Teams Keyboard Teacher Relationship Specialty Start Date End Date Lavell Marcos MD [address] [place] [address] 52272 PCP - General 04/06/07 02/08/21 Jennifer Sylvester MD [address] [place] [address] 30292 PCP - General Internal Medicine 02/09/21 01/22/23 [facility], Pcp [address] [place] [address] 52351 PCP - General Internal Medicine 01/23/23 documented as of this encounter
--- OUTSIDE RECORDS SUMMARY | 2024-12-01 09:09 | XMS_ITS | Encounter Summary ---
Author Organization [facility] Address [address] [place] [address] Care Team Providers Care Healthcare Management Consultant Name Role Phone Lavell Marcos MD Primary Care Provider [phone] Jennifer Sylvester MD Primary Care Provider [facility], Pcp Primary Care Provider Unavailabl e Reason for Visit * Reason Onset Date Comments other 08/30/2019 Encounter Details Date Type Department Care Team Description 08/30/2019 Telephone Physiatry - [place] [address] [place] [address] Lavell Marcos MD [address] [place] [address] other Social History Tobacco Use Types Packs/Day [...] encounter Miscellaneous Notes * Telephone Encounter - Radha Alanis - 08/30/2019 4:40 PM EDT I spoke to the patient, She has had a headache since the injection this am. It is not relieved by laying down or standing up. It is constant. She has not taken anything for it yet. I advised she could use ice and tylenol. She was cautioned to look for signs of fever or if the headache persisted or was relieved by layingdown. ADRIAN Mirza. * Telephone Encounter - Trevin Lance - 08/30/2019 4:29 PM EDT Patient called to say she has been experiencing headache since procedure. Is this normal? Please call documented in this encounter Plan of Treatment Not on file documented as of this encounter Visit Diagnoses Not on filedocumented in this encounter Care Teams Healthcare Management Consultant Relationship Specialty Start Date End Date Lavell Marcos MD [address] [place] [address] PCP - General 04/06/07 02/08/21 Jennifer Sylvester MD [address] [place] [address] PCP - General Internal Medicine 02/09/21 01/22/[address] [address] PCP - General Internal Medicine 01/23/23 documented as of this encounter
--- OUTSIDE RECORDS SUMMARY | 2024-12-01 09:09 | XMS_ITS | Encounter Summary ---
Author Organization [facility] Address [address] [place] [address] Care Team Providers Care Oim Architect Name Role Phone Lavell Marcos MD Primary Care Provider [phone] Jennifer Sylvester MD Primary Care Provider [phone] [facility], Pcp Primary Care Provider Unavailabl e Reason for Visit * Reason Onset Date Comments Information Needed 04/22/2016 Encounter Details Date Type Department Care Team Description 04/22/[address] [facility] [address] [place] [address] Lavell Marcos MD [address] [place] [address] Information Needed Social History Tobacco Use Types Packs/Day Years [...] encounter Miscellaneous Notes * Telephone Encounter - Annelise Finch L.P.N. - 04/22/2016 5:02 PM EDT Please review and advise * Telephone Encounter - Gustavo Aly - 04/22/2016 3:57 PM EDT Patient would like to ask Dr. Marcos to call her, patient says it is personal and would not reveal any other information. documented in this encounter Plan of Treatment Not on file documented as of this encounter Visit Diagnoses Not on filedocumented in this encounter Care Teams Oim Architect Relationship Specialty Start Date End Date Lavell Marcos MD [address] [place] [address] [phone] PCP - General 04/06/07 02/08/21 Jennifer Sylvester MD [address] [place] [address] [phone] PCP - General Internal Medicine 02/09/21 01/22/[address] [address] PCP - General Internal Medicine 01/23/23 documented as of this encounter
--- OUTSIDE RECORDS SUMMARY | 2024-12-01 09:09 | XMS_ITS | Encounter Summary ---
Author Organization [facility] Address [address] [place] [address] Care Team Providers Care Technical Delivery Manager Name Role Phone Lavell Marcos MD Primary Care Provider [phone] Jennifer Sylvester MD Primary Care Provider [phone] [facility], Pcp Primary Care Provider Unavailabl e Encounter Details Date Type Department Care Team Description 01/10/2017 Instructor Military Science Report Medical Records [address] [place] [address] Reji White MD [address] [place] [address] Social History Tobacco Use Types Packs/Day Years [...] filedocumented in this encounter Care Teams Technical Delivery Manager Relationship Specialty Start Date End Date Lavell Marcos MD [address] [place] [address] PCP - General 04/06/07 02/08/21 Jennifer Sylvester MD [address] [place] [address] PCP - General Internal Medicine 02/09/21 01/22/23 [facility], Pcp [address] [place] [address] PCP - General Internal Medicine 01/23/23 documented as of this encounter
--- OUTSIDE RECORDS SUMMARY | 2024-12-01 09:09 | XMS_ITS | Encounter Summary ---
Author Organization [facility] Address [address] [place] [address] Care Team Providers Care Pitching Coach Name Role Phone Jennifer Sylvester MD Primary Care Provider [phone] [facility], Pcp Primary Care Provider Unavailletty e Encounter Details Date Type Department Care Team Description 08/06/2021 Hospital Medical Records [address] [place] [address] Souleymane Stearns MD Social History Tobacco Use Types Packs/Day [...] on filedocumented in this encounter Care Teams Pitching Coach Relationship Specialty Start Date End Date Jennifer Sylvester MD [address] [place] [address] [phone] PCP - General Internal Medicine 02/09/21 01/22/23 [facility], Pcp [address] [place] [address] PCP - General Internal Medicine 01/23/23 documented as of this encounter
--- OUTSIDE RECORDS SUMMARY | 2024-12-01 09:09 | XMS_ITS | Encounter Summary ---
Author Organization [facility] Address [address] [place] [address] Care Team Providers Care Stone Planer Name Role Phone Lavell Marcos MD Primary Care Provider [phone] Jennifer Sylvester MD Primary Care Provider [phone] [facility], Pcp Primary Care Provider Unavailabl e Encounter Details Date Type Department Care Team Description 05/26/2019 Release of Information Medical Records [address] [place], [place] [id number] Abstract, Provider Social History Tobacco Use Types [...] on filedocumented in this encounter Care Teams Stone Planer Relationship Specialty Start Date End Date Lavell Marcos MD [address] [place] [address] PCP - General 04/06/07 02/08/21 Jennifer Sylvester MD [address] [place] [address] [phone] PCP - General Internal Medicine 02/09/21 01/22/23 [facility], Pcp [address] [place] [phone] PCP - General Internal Medicine 01/23/23 documented as of this encounter
--- OUTSIDE RECORDS SUMMARY | 2024-12-01 09:09 | XMS_ITS | Encounter Summary ---
Author Organization [facility] Address [address] [place] [address] Care Team Providers Care Staffing And Scheduling Coordinator Name Role Phone Lavell Marcos MD Primary Care Provider Jennifer Sylvester MD Primary Care Provider [phone] [facility] [place], Pcp Primary Care Provider Unavailabl e Encounter Details Date Type Department Care Team Description 09/09/2019 Bead Preparer Report Medical Records [address] [place] [address] Jose Cornejo MD Social History Tobacco Use [...] on filedocumented in this encounter Care Teams Staffing And Scheduling Coordinator Relationship Specialty Start Date End Date Lavell Marcos MD [address] [place] [address] PCP - General 04/06/07 02/08/21 Jennifer Sylvester MD [address] [place] [address] PCP - General Internal Medicine 02/09/21 01/22/23 [facility], Pcp [address] [place] [address] PCP - General Internal Medicine 01/23/23 documented as of this encounter
--- OUTSIDE RECORDS SUMMARY | 2024-12-01 09:09 | XMS_ITS | Encounter Summary ---
Author Organization [facility] Address [address] [place] [address] Care Team Providers Care Junior Data Analyst Name Role Phone Lavell Marcos MD Primary Care Provider [phone] Jennifer Sylvester MD Primary Care Provider [phone] [facility], Pcp Primary Care Provider Unavailabl e Encounter Details Date Type Department Care Team Description 05/24/2016 Hospital Medical Records [address] [place] [address] Eduardo Lino MD Social History Tobacco Use [...] on filedocumented in this encounter Care Teams Junior Data Analyst Relationship Specialty Start Date End Date Lavell Marcos MD [address] [place] [address] PCP - General 04/06/07 02/08/21 Jennifer Sylvester MD [address] [place] [address] PCP - General Internal Medicine 02/09/21 01/22/23 [facility], Pcp [address] [place] [address] 14[address] PCP - General Internal Medicine 01/23/23 documented as of this encounter
--- OUTSIDE RECORDS SUMMARY | 2024-12-01 09:09 | XMS_ITS | Encounter Summary ---
Author Organization [facility] Address [address] [place] [address] Care Team Providers Care Short Piece Handler Name Role Phone Lavell Marcos MD Primary Care Provider [phone] Jennifer Sylvester MD Primary Care Provider [phone] [facility], Pcp Primary Care Provider Unavailabl e Encounter Details Date Type Department Care Team Description 09/15/2019 Card Folder Report Medical Records [address] [place] [address] Rafat Gregorio MD Social History Tobacco Use [...] on filedocumented in this encounter Care Teams Short Piece Handler Relationship Specialty Start Date End Date Lavell Marcos MD [address] [place] [address] PCP - General 04/06/07 02/08/21 Jennifer Sylvester MD [address] [place] [address] PCP - General Internal Medicine 02/09/21 01/22/23 [facility], Pcp [address] [place] [address] PCP - General Internal Medicine 01/23/23 documented as of this encounter
--- OUTSIDE RECORDS SUMMARY | 2024-12-01 09:10 | XMS_ITS | Encounter Summary ---
Author Organization [facility] Address [address] [place] [address] Care Team Providers Care Electrical Solderer Name Role Phone Lavell Marcos MD Primary Care Provider Jennifer Sylvester MD Primary Care Provider [phone] [facility], Pcp Primary Care Provider Unavailabl e Encounter Details Date Type Department Care Team Description 07/09/2016 Revenue Stamp Cutter Report Medical Records [address] [place] [address] Eduardo Lino MD Social History Tobacco Use [...] on filedocumented in this encounter Care Teams Electrical Solderer Relationship Specialty Start Date End Date Lavell Marcos MD [address] [place] [address] PCP - General 04/06/07 02/08/21 Jennifer Sylvester MD [address] [place] [address] PCP - General Internal Medicine 02/09/21 01/22/23 [facility], Pcp [address] [place] [address] PCP - General Internal Medicine 01/23/23 documented as of this encounter
--- OUTSIDE RECORDS SUMMARY | 2024-12-01 09:10 | XMS_ITS | Encounter Summary ---
Author Organization [facility] Address [address] [place] [address] Care Team Providers Care Residential Service Technician Name Role Phone Lavell Marcos MD Primary Care Provider [phone] Jennifer Sylvester MD Primary Care Provider [phone] [facility], Pcp Primary Care Provider [facility] Encounter Details Date Type Department Care Team Description 07/19/2016 Pt. Non Urgent Medical Question Adult Medicine [facility] [address] [place] [address] Lavell Marcos MD [address] [place] [address] Social History Tobacco Use Types Packs/Day Years Used Date Smoking Tobacco: Never Smokeless Tobacco: Never Alcohol Use Standard Drinks/Week Comments No 0 (1 standard drink = 0.6 oz pur e alcohol) Sex Assigned at Date Recorded Not on file Job Start Date Occupation Industry Not on file Not on file Not on file documented as of this encounter Progress Notes * Chikis Moreland M.A. - 07/22/2016 2:28 PM EDTFrom: Adelina Tavarez To: Lavell Marcos MD Sent: 07/19/2016 2:49 PM EDT Subject: Bowels Dr Araujo the Lenzess worked for 2 days I'm constipated today if I don't go tomorrow can I increase the Lenzess? Tomorrow? Adelina documented in this encounter Plan of Treatment Not on file documented as of this encounter Visit Diagnoses Not on filedocumented in this encounter Care Teams Residential Service Technician Relationship Specialty Start Date End Date Lavell Marcos MD [address] [place] [address] PCP - General 04/06/07 02/08/21 Jennifer Sylvester MD [address] [place] [address] [phone] PCP - General Internal Medicine 02/09/21 01/22/[address] [address] PCP - General Internal Medicine 01/23/23 documented as of this encounter
--- OUTSIDE RECORDS SUMMARY | 2024-12-01 09:10 | XMS_ITS | Patient Health Record ---
Author Organization [facility] Address [address] [facility] [place] [address] Care Team Providers Care Iron Miner Blasting Name Role Phone Abby Potter Primary Care Provider UnavailCharity Wasserman Unavailable [phone] Allergies Allergen (clinical drug ingredient) Drug/Non Drug Allergy documented on EMR Reaction Allergy Type Onset Date Status acetaminophen Acetaminophen Increased PVC Drug Allergy Active calcium carbonate Antacid SOB, wheezing Drug Allergy Active cefaclor Cefaclor increased palpatations Drug Allergy Active [...] inflammation Oral for 30 Not-Taking Probiotic Active Axton 3 500 400 mg 1 capsule Orally Twice a day Not-Taking vitamin D Not-Taking Fioricet Not-Taking Calcium Not-Taking Flax Seed Oil Not- cristian Nystatin 472768 UNIT Orally Not-Taking Prednisone Not-Takin g Crestor [...] Problem Acquired hammer toe of right foot (0726493272066362) Other hammer toe(s) (acquired), right foot (M20.41) Active confirmed Problem Tinea unguium (644894464) Tinea unguium (B35.1) Active confirmed Problem Acquired hammer toe of left foot (6239799722408929) Other hammer toe(s) (acquired), left foot (M20.42) Active confirmed Problem Acquired hallux valgus (24488964) Hallux valgus (acquired), right foot (M20.11) Active confirmed Problem Localized, primary osteoarthritis of the ankle and/or foot (902202652) Arthritis of joint of lesser toe, left (M19.072) Active confirmed Problem Localized, primary osteoarthritis of the ankle and/or foot (284646302) Arthritis of joint of lesser toe, right (M19.071) Active confirmed Vital Signs Heart Rate 73 /min 02/16/2024 Height 5ft in 08/23/2024 Weight 105 lbs 08/23/2024 BMI 20.5 kg/m2 08/23/2024 Procedures Procedure Date Ordered Date Performed Result Body Sit e 84306-MLOEQVS NAIL, 6 OR MORE 02/16/2024 N/A 02646-Rktbuxgr Plate 02/16/2024 N/A 41257-ATNUGIU NAIL, 6 OR MORE 05/24/2024 N/A 24049-AEIDAZV NAIL, 6 OR MORE 08/23/2024 N/A 10850-Oblgajfl Plate 08/23/2024 N/A Encounters Encounter Location Date Provider Diagnosis [address] [address] 02/16/2024 Charity Black Xerosis of skin L85.3 ; Ingrown nail L60.0 ; Tinea unguium B35.1 ; Pain in right toe(s) M79.674 and Pain in left toe(s) M79.[address] [address] 05/24/2024 Charity Black Tinea unguium B35.1 ; Pain in right toe(s) M79.674 and Pain in left toe(s) M79.[address] [address] 08/23/2024 Charity Black Tinea unguium B35.1 ; Pain in right toe(s) M79.674 ; Pain in left toe(s) M79.675 and Ingrown nail L60.0 [facility] [address] [address] 05/24/2024 Charity Black [address] [address] 11/29/2024 Charity Black Assessments Encounter Date Diagnosis (ICD Code) Assessment Notes Treatment Notes Treatment Clinical Notes Section Notes 02/16/2024 Ingrown nail (ICD-10 - L60.0) 02/16/2024 [...] M79.675) 02/16/2024 Tinea unguium (ICD-10 - B35.1) 02/16/2024 Pain in right toe(s) (ICD-10 - M79.674) 08/23/2024 Ingrown nail (ICD-10 - L60.0) 02/16/2024 Pain in left toe(s) (ICD-10 - M79.675) Plan Of Treatment Pending Test Test Name Order Date 72006-YSRIZTE NAIL, 6 OR MORE 02/14/2014 31504-JMFSNJT NAIL, 6 OR MORE 04/03/2016 51735-HJXMNAI NAIL, 6 OR MORE 08/01/2016 29393-RYLGEPX NAIL, 6 OR MORE 02/06/2017 43995-GOOUURT NAIL, 6 OR MORE 03/05/2017 77070-EYYFKXG NAIL, 6 OR MORE 06/09/2017 69581-IBVDVTF NAIL, 6 OR MORE 09/11/2017 88075-GCUBDUE NAIL, 6 OR MORE 12/11/2017 06114-GQKNWBE NAIL, 6 OR MORE 03/12/2018 36474-QFUNWJP NAIL, 6 OR MORE 06/11/2018 58404-EDCLGEX NAIL, 6 OR MORE 09/14/2018 88330-QDLDSRG NAIL, 6 OR MORE 11/26/2018 00763-GFDQVOL NAIL, 6 OR MORE 02/25/2019 17082-HEXFTZD NAIL, 6 OR MORE 06/03/2019 78297-ZQPJGGJ NAIL, 6 OR MORE 09/02/2019 95787-VDPNFDH NAIL, 6 OR MORE 12/06/2019 50112-AIFWDOS NAIL, 6 OR MORE 02/28/2020 64479-HKKDMNI NAIL, 6 OR MORE 05/18/2020 11777-UXKYJIN NAIL, 6 OR MORE 07/25/2020 34401-IXWQKRE NAIL, 6 OR MORE 10/19/2020 69022-HPYSWHL NAIL, 6 OR MORE 01/15/2021 48548-DLPFUHC NAIL, 6 OR MORE 03/19/2021 56930-NVKEWRE NAIL, 6 OR MORE 05/17/2021 46865-HETKXAE NAIL, 6 OR MORE 08/23/2021 00933-BEECSFN NAIL, 6 OR MORE 11/01/2021 38098-OMNOASU NAIL, 6 OR MORE 01/14/2022 26892-EDPECYK NAIL, 6 OR MORE 04/22/2022 64458-OLLQRZR NAIL, 6 OR MORE 08/06/2022 07312-CLGTVHJ NAIL, 6 OR MORE 10/24/2022 49795-AAYRNHP NAIL, 6 OR MORE 01/30/2023 33024-ZZOKQDC NAIL, 6 OR MORE 04/21/2023 13908-QLEGKPB NAIL, 6 OR MORE 07/14/2023 39757-VHEIXQS NAIL, 6 OR MORE 11/24/2023 98286-BVYHWXC NAIL, 6 OR MORE 02/16/2024 92072-JIPXVJC NAIL, 6 OR MORE 05/24/2024 50860-OZBLRJZ NAIL, 6 OR MORE 08/23/2024 32301-VWOCTHF NAIL, 1-5 10/17/2016 40858-TIRDCJT NAIL, 1-5 12/06/2016 31290-RLLQNFK NAIL, 1-5 01/01/2016 30226-ZXUNTQA NAIL, 1-5 09/04/2015 72111-XUGAMNO NAIL, 1-5 04/17/2015 85523-MIYSGVW NAIL, 1-5 06/01/2015 16926-SLTPTIU NAIL, -5 12/23/2013 69339-YLWODUN NAIL, -5 09/15/2014 47135-LKHWOJX NAIL, -5 01/02/2015 46931-Vhagnaoi Plate 01/02/2015 51700-Chuljkab Plate 04/17/2015 64936-Nlvrtbts Plate 12/23/2013 06994-Ahtggrph Plate 06/01/2015 76850-Tulzodbw Plate 01/01/2016 44156-Xagdnunc Plate 09/15/2014 35221-Kkfrtaev Plate 09/17/2016 82296-Vfddoqls Plate 09/14/2018 95111-Abexspay Plate 12/11/2017 71928-Uasluzap Plate 03/19/2021 54543-Opvxsrlh Plate 11/01/2021 26879-Yglluvrw Plate 08/23/2021 69047-Iacvgtje Plate 05/17/2021 41903-Dndwiwwa Plate 05/18/2020 30739-Xgtcxvxp Plate 09/02/2019 08848-Xwhhrrso Plate 02/28/2020 77256-Poarirrl Plate 12/06/2019 72170-Wyfihjar Plate 02/25/2019 46402-Ryodcfft Plate 06/03/2019 48230-Ugtskjzt Plate 11/26/2018 06710-Voqewqfa Plate 08/23/2024 55427-Vzxooeka Plate 02/16/2024 58180-Rumeemey Plate 04/21/2023 91592-Zhfqwhys Plate 01/30/2023 21799-Dvsfadce Plate Each Additional 18002-Kugqryzt Plate Each Additional 05717-Yussbuqe Plate Each Additional 11/2018 90585-Zlyqvqzo Plate Each Additional 01/2020 71032-Pxcuqpbe Plate Each Additional 00002-Bytklmhy Plate Each Additional 31699-Tcjbozto Plate Each Additional 07583-TZK 01/06/2017 23830-COG 04/03/2016 87751- Debride <25 sq cm 05/02/2016 46897- Debride <25 sq cm 10/17/2016 45239- Debride <25 sq cm 12/06/2016 77599- Debride <25 sq cm 06/01/2015 59327- Debride <25 sq cm 02/06/2017 25445-NHGYXZA SKIN/TISSUE 01/20/2017 72272-NHBEKNF SKIN/TISSUE 04/17/2016 19760 I&D ABSCESS- SIMPLE,SINGLE 022 Insurance Providers Payer Name Payer Address Payer Phone Subscriber Number Group Number Insured Name Patient Relationship to Insured Coverage Start Date Coverage End Date Medicare National [employer] [address] [place] [address] [id number] Adelina Tavarez Self - patient is the insured [facility] [address] [place] [address] [id number] Adelina Tavarez Self - patient is the insured Medical (General) History Medical History History ICD Code Arthritis Back,Hip,and Knee pain Depression Fibromyalgia Headaches Osteoporosis Reflux chronic sinusitis Broken bones Bone Density - body not making anymore Surgical History Surgery Date(Month/Year) sinus surgery bladder surgery Lung biopsy 01/2015 neck surgery 02/2019 endoscopy 11/2019 Hospitalization History Reason Date(Month/Year) [facility]- Broken Wrist - right 0 01/16/2023 Stroke 08/2021 [facility] [place] on chest - it was ac id reflux 2018
--- OUTSIDE RECORDS SUMMARY | 2024-12-01 09:10 | XMS_ITS | Encounter Summary ---
Author Organization [facility] Address [address] [place] [address] Care Team Providers Care Cancer Registry Coordinator Name Role Phone Lavell Marcos MD Primary Care Provider [phone] Jennifer Sylvester MD Primary Care Provider [facility], Pcp Primary Care Provider Unavailabl e Encounter Details Date Type Department Care Team Description 07/22/2012 Release of Information Medical Records [address] [place], [place] [id number] Abstract, Provider Social History Tobacco Use Types [...] on filedocumented in this encounter Care Teams Cancer Registry Coordinator Relationship Specialty Start Date End Date Lavell Marcos MD [address] [place] [address] PCP - General 04/06/07 02/08/21 Jennifer Sylvester MD [address] [place] [address] [phone] PCP - General Internal Medicine 02/09/21 01/22/23 Jarrod, Joe [address] [place] [address] PCP - General Internal Medicine 01/23/23 documented as of this encounter
--- OUTSIDE RECORDS SUMMARY | 2024-12-01 09:10 | XMS_ITS ---
Author Organization [facility] Address [address] [facility] [place] [address] Care Team Providers Care Supervisor Agricultural Education Name Role Phone Abby Potter Primary Care Provider Charity Castro Unavailable [phone] Allergies Allergen (clinical drug ingredient) Drug/Non Drug [...] Once a day Not-Taking Doxycycline Not-Takjonathan samuel Egypt 3 500 400 mg 1 capsule Orally Twice a day Not-Taking Calcium Not-Taking Nystatin 936206 UNIT Orally Not-Taking Pazeo Not-Taking Social History [...] Ordered Date Performed Result Body Sit e 29177-XNOSOOO NAIL, 6 OR MORE 08/23/2024 N/A 72668-Kavrmgsd Plate 08/23/2024 N/A Encounters Encounter Location Date Provider Diagnosis [facility] [place] [address] [place] [address] 08/23/2024 Charity Black Tinea unguium B35.1 ; [...] Treatment Pending Test Test Name Order Date 81530-DRZVQEG NAIL, 6 OR MORE 08/23/2024 75735-Lbyntzbw Plate 08/23/2024 Next Appt Details Follow Up: 2 Weeks,prn, Reas on: Procedure Notes * Category Sub-Category Detail Notes [...] Motrin was recommended for pain or discomfort (34803) , Pt DEFERS matricectomy Anesthesia was accomplished [...] use of a nail nipper and/or dremel-type grinder lap, to a more viable healthy nail plate or bed tissue 6-10. Silver nitrate used for any petechial bleeding as necessary. Definitive antifungal treatment options have been reviewed and discussed with the patient. The patient chooses, no pharmaceutical tx - 88803 Progress Notes * Adelina TAVAREZ ADOB:[birth year] (78 yo F)Acc No.[id number]:08/23/2024 Progress Note Patient:?Adelina Tavarez Provider:?Charity Marquez DPM :1945???Age:78 Y???Sex:Female D ate:08/23/2024 Address:[address] [place] [address] [id number] Pcp:Abby Potter Subjective: * Chief Complaints: * ???Painful nail(s) aggrevate d by shoes causing difficulty standing/walkingIngrown Nail * HPI: ???Painful Nails:?Pt States Last PCP Visit:?Date:?04/27/2024 * Medical History:? * Surgical History:?sinus surg adelso bladder surgery Lung biopsy 01/2015neck surgery 02/2019endoscopy 11/2019 * Hospitalization/Major Diagno stic Procedure:?[facility] [place] Pressure on chest - it was acid reflux 2018Stroke 08/2021[facility]- Broken Wrist - right 01/16/2023 * [...] yes, walking. ?Marital status: . 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 * Medications:?TakingMultivita min Atorvastatin Calcium 20 MG [...] times a weekMetoprolol Succinate ER Pazeo Nystatin 861942 UNIT Tablet Orally Crestor 10 mg Atenolol 25 MG Tablet 1 tablet Orally Once a dayDoxycycline Egypt 3 500 400 mg Capsule 1 capsule [...] Metoprolol Succinate ER Not-Taking/PRN Pazeo Not-Taking/PRN Nystatin 281286 UNIT Tablet Orally Not-Taking/PRN Crestor 10 mg Not-Taking/PRN Atenolol 25 MG Tablet 1 tablet Orally Once a dayNot-Taking/PRN Doxycycline Not-Taking/PRN Egypt 3 500 400 mg Capsule 1 capsule [...] Daily Not-Taking/PRN Valium Not-Taking/PRN Synthroid Not-Taking/PRN rifAMPin Not-Taking/PRN Ethambutol HCl Not-Taking/PRN Aciphex Not-Taking/PRN Prednisone Not-Taking/PRN [...] - L60.0? Plan: * Treatment: 2.?Ingrown nail?Procedure: 66508-Dryhogmd Plate * Procedures:?Debride Nail 6-10:?Nail debridement?Performance of this nail treatment by a nonprofessional would put this patients foot and overall health at risk. Therefore, nail debridement was performed extensively to reduce/remove overall nail length, girth, thickness, subungual debris, and necrotic tissue, by manual and/or electrical means through the use of a nail nipper and/or dremel-type grinder lap, to a more viable healthy nail plate or bed tissue 6-10. Silver nitrate used for any petechial bleeding as necessary. Definitive antifungal treatment options have been reviewed and discussed with the patient. The patient chooses, no pharmaceutical tx - 69913.?Nail Avulsion:?Location?Medial nail border, T2, ?.?Anesthesia?was accomplished TOPICALLY [...] Motrin was recommended for pain or discomfort (95951) , Pt DEFERS matricectomy.? * Procedure Codes:?30040 DEBRI DE NAIL, 6 OR MORE, Modifiers: XS 69631 Avulsion Plate, Modifiers: T1 * Follow Up:?2 Weeks,prn * Images: * Sign off status: Completed true * Provider:Jahaira Marquez DPM Date:?2023 Generated for Carmelina baker/Quincy/Jose on:?12/01/2024 09:09 AM EST History and Physical Notes * [...]
--- OUTSIDE RECORDS SUMMARY | 2024-12-01 09:10 | XMS_ITS | Encounter Summary ---
Author Organization [facility] Address [address] [place] [address] Care Team Providers Care Reservations Manager Name Role Phone Lavell Marcos MD Primary Care Provider [phone] Jennifer Sylvester MD Primary Care Provider [phone] [facility], Pcp [facility] Encounter Details Date Type Department Care Team Description 07/28/2012 Assembly Cleaner Report Medical Records [address] [place] [phone] Rich Beatty Social History Tobacco Use Types [...] on filedocumented in this encounter Care Teams Reservations Manager Relationship Specialty Start Date End Date Lavell Marcos MD [address] [place] [address]142 PCP - General 04/06/07 02/08/21 Jennifer Sylvester MD [address] [place] [address] [phone] PCP - General Internal Medicine 02/09/21 01/22/23 Jarrod, Pcp [address] [place] [phone] PCP - General Internal Medicine 01/23/23 documented as of this encounter
--- OUTSIDE RECORDS SUMMARY | 2024-12-01 09:10 | XMS_ITS | Encounter Summary ---
Author Organization [facility] Address [address] [place] [address] Care Team Providers Care Cold Roll Catcher Name Role Phone Lvaell Marcos MD Primary Care Provider [phone] Jennifer Sylvester MD Primary Care Provider [phone] [facility], Pcp Primary Care Provider Unavailabl e Encounter Details Date Type Department Care Team Description 09/04/2012 Rehab Specialist Report Medical Records [address] [place] [address] Eduardo Lino MD Social History Tobacco Use [...] on filedocumented in this encounter Care Teams Cold Roll Catcher Relationship Specialty Start Date End Date Lavell Marcos MD [address] [place] [phone] PCP - General 04/06/07 02/08/21 Jennifer Sylvester MD [address] [place] [phone] PCP - General Internal Medicine 02/09/21 01/22/23 Jarrod, Joe [address] [place] [address] [phone] PCP - General Internal Medicine 01/23/23 documented as of this encounter
--- OUTSIDE RECORDS SUMMARY | 2024-12-01 09:10 | XMS_ITS | Encounter Summary ---
Author Organization [facility] Address [address] [place] [address] Care Team Providers Care Marketing Services Manager Name Role Phone Lavell Marcos MD Primary Care Provider [phone] Jennifer Sylvester MD Primary Care Provider [phone] [facility], Pcp Primary Care Provider Unavailabl e Encounter Details Date Type Department Care Team Description 08/29/2016 Release of Information Medical Records [address] [place], [place] [phone] Abstract, Provider Social History Tobacco Use Types [...] on filedocumented in this encounter Care Teams Marketing Services Manager Relationship Specialty Start Date End Date Lavell Marcos MD [address] [place] [phone] PCP - General 04/06/07 02/08/21 Jennifer Sylvester MD [address] [place] [address] [phone] PCP - General Internal Medicine 02/09/21 01/22/23 [facility], Pcp [address] [place] [address] [phone] PCP - General Internal Medicine 01/23/23 documented as of this encounter
--- OUTSIDE RECORDS SUMMARY | 2024-12-01 09:11 | XMS_ITS | Encounter Summary ---
Author Organization [facility] Address [address] [place] [address] Care Team Providers Care Director Mba Name Role Phone Lavell Marcos MD Primary Care Provider [phone] Jennifer Sylvester MD Primary Care Provider [phone] [facility], Pcp Primary Care Provider [facility] Encounter Details Date Type Department Care Team Description 12/03/2011 Transfer Records Medical Records [address] [place] [address] Social History Tobacco Use Types Packs/Day Years [...] filedocumented in this encounter Care Teams Director Mba Relationship Specialty Start Date End Date Lavell Marcos MD [address] [place] [address] [phone] PCP - General 04/06/07 02/08/21 Jennifer Sylvester MD [address] [place] [address] [phone] PCP - General Internal Medicine 02/09/21 01/22/23 [facility], Pcp [address] [place] [address] [phone] PCP - General Internal Medicine 01/23/23 documented as of this encounter
--- OUTSIDE RECORDS SUMMARY | 2024-12-01 09:11 | XMS_ITS | Encounter Summary ---
Author Organization [facility] Address [address] [place] [address] Care Team Providers Care Director Quality Assurance Name Role Phone Jennifer Sylvester MD Primary Care Provider [phone] [facility], Pcp Primary Care Provider Unavailletty e Encounter Details Date Type Department Care Team Description 08/12/2022 Inpatient Coder Report Medical Records [address] [place] [address] iBb Sandoval MD Social History Tobacco Use Types [...] filedocumented in this encounter Care Teams Director Quality Assurance Relationship Specialty Start Date End Date Jennifer Sylvester MD [address] [place] [address] [phone] PCP - General Internal Medicine 02/09/21 01/22/23 [facility], Pcp [address] [place] [phone] PCP - General Internal Medicine 01/23/23 documented as of this encounter
--- OUTSIDE RECORDS SUMMARY | 2024-12-01 09:11 | XMS_ITS | Encounter Summary ---
Author Organization [facility] Address [address] [place] [address] Care Team Providers Care Roll Up Guider Operator Name Role Phone Lavell Marcos MD Primary Care Provider [phone] Jennifer Sylvester MD Primary Care Provider [phone] [facility], Pcp Primary Care Provider Unavailabl e Encounter Details Date Type Department Care Team Description 01/01/2016 Custom Studio Coordinator Report Medical Records [address] [place] [address] Eduardo Lino MD Social History Tobacco Use [...] on filedocumented in this encounter Care Teams Roll Up Guider Operator Relationship Specialty Start Date End Date Lavell Marcos MD [address] [place] [phone] PCP - General 04/06/07 02/08/21 Jennifer Sylvester MD [address] [place] [address] [phone] PCP - General Internal Medicine 02/09/21 01/22/23 [facility], Pcp [address] [place] [address] [phone] PCP - General Internal Medicine 01/23/23 documented as of this encounter
--- OUTSIDE RECORDS SUMMARY | 2024-12-01 09:11 | XMS_ITS ---
Author Organization [facility] Address [address] [place] [address] Care Team Providers Care Dog Food Shredder Operator Name Role Phone Abby Potter Primary Care Provider Charity Castro Unavailable [phone] REASON FOR VISIT No Show Encounters Encounter Location Date Provider Diagnosis [facility] [address] [place] [address] 11/29/2024 Charity Marquez Plan Of Treatment No Information Progress Notes * Adelina TAVAREZ ADOB:[birth year] (79 yo F)Acc No.[id number]:11/29/2024 Patient:?Adelina TAVAREZ :1945???Age:79 Y???Sex:Female Address:[address] [place] [address] * true * Date:? Generated for Carmelina baker/[place]/eTransmitting on:?12/01/2024 09:11 AM EST
--- OUTSIDE RECORDS SUMMARY | 2024-12-01 09:11 | XMS_ITS | Clinical Summary ---
Author Organization [facility] Address [address] [place] [address] Care Team Providers Care Mental Health Aides Teacher Name Role Phone [facility], Pcp Primary Care Provider Unavailabl e Allergies Active Allergy Reactions Severity Noted Date Comments Acetaminophen 08/21/2021 Amoxicillin 08/21/2021 Atorvastatin Calcium 08/21/2021 Augmentin 06/05/2007 Glycopyrrolate-Formotero l 05/25/2018 Clarithromycin Nausea and Vomiting 06/04/2007 Cefaclor OTHER 06/04/2007 increased palpatations Cefaclor 12/22/2015 Clarithromycin 12/22/2015 Clavulanic Acid 08/21/2021 Codeine Rash/Dermatitis 06/04/2007 Codeine 12/22/2015 Diazepam Itching/Pruritus 04/11/2011 Diflucan 12/22/2015 Imidazole Antifungals 06/05/2007 Doxycycline Hyclate 08/21/2021 Amitriptyline Hcl 12/22/2015 Amitriptyline Hcl 06/05/2007 Erythromycin 06/05/2007 Erythromycin 12/22/2015 Fluconazole 08/21/2021 Fluoxetine Hcl Itching/Pruritus 02/18/2011 Gatifloxacin 08/21/2021 Grapefruit Extract 06/05/2007 Hydrocodone 08/21/2021 Hydrocodone-Acetaminophe n 12/22/2015 Levofloxacin Hemihydrate 06/05/2007 Levofloxacin 12/22/2015 Escitalopram 02/18/2018 Atorvastatin Calcium Headaches 06/05/2007 Nitrofurantoin 12/22/2015 Nitrofurantoin 06/05/2007 Antacid-Simethicone SOB, Wheezing 10/16/2012 Naproxen Runny Nose/Rhinitis 06/21/2010 Niacin 12/22/2015 Niacin 06/05/2007 Oxycodone Hcl 08/21/2021 Oxycodone-Acetaminophen 12/22/2015 Indigotine-Oxycodone Hcl Nausea and Vomiting Penicillin G Potassium 06/05/2007 Penicillins 12/22/2015 Oxycodone-Acetaminophen Nausea and Vomiting 01/2007 Propranolol Hcl hallucinations 06/19/2009 Proton Pump Inhibitors 06/05/2007 Quinidine 12/22/2015 Quinidine Gluconate 06/05/2007 Terfenadine 12/22/2015 Terfenadine 06/05/2007 Singulair Headaches 06/05/2007 Sulfa Drugs 06/05/2007 Tequin 06/05/2007 Tetracycline 06/05/2007 Tetracyclines 12/22/2015 Topamax 12/22/2015 Topiramate 06/05/2007 Ultracet 06/05/2007 Vibramycin 12/22/2015 Doxycycline Calcium 06/05/2007 Hydrocodone-Acetaminophe n OTHER 06/04/2007 increased pvc's Medications Medication Sig Dispensed Refills Start Date End Date Status GNUKUSGIKA-TLNO-NZF FEINE 50-325-40 MG OR TABS (FIORICET) per tablet Take 1 tablet by mouth every 4 hours as needed. 0 Active vitamin B-12 (CYANOCOBALAMIN) 1000 MCG tablet Take 1,000 mcg by mouth daily. 0 Active ALBUTEROL SULFATE (VENTOLIN HFA) 108 (90 BASE) MCG/ACT Aero Soln Inhale 2 Puffs into the lungs every 6 hours as needed for Wheezing or Shortness of Breath. 1 Inhaler 6 03/25/2018 Active levalbuterol (XOPENEX) 1.25 MG/3ML nebulizer solution Take 1 Ampule by nebulization every 4 hours as needed for Wheezing for up to 30 days. 50 mL 11 07/21/2018 Active albuterol (PROVENTIL) (2.5 MG/3ML) 0.083% nebulizer solution Take 1 Vial by nebulization every 4 hours as needed for Wheezing. 50 Vial 11 07/30/2018 Active Nutritional Supplements (VITAMIN D BOOSTER OR) Take by mouth. 0 Active glucagon (GLUCAGON EMERGENCY) 1 MG injection Inject 1 Kit into the muscle once for 1 dose. 1 Each 0 04/08/2019 Active ESTRACE VAGINAL 0.1 MG/GM vaginal cream 2 times A week 1 09/02/2019 A ctive fluticasone-salmete rol (ADVAIR HFA) 115-21 MCG/ACT inhaler Inhale 2 Puffs into the lungs 2 times daily. 1 Inhaler 0 04/19/2020 Active Zoledronic Acid (RECLAST) 5 MG/100ML Solution Inject 5 mg into the vein See Admin Instructions. 0 04/19/2020 Active Coenzyme Q10 (CO Q-10) 300 MG Cap Take by mouth. 30 Cap 0 04/19/2020 Active prochlorperazine (COMPAZINE) 10 MG tablet Take 1 Tab by mouth 2 times daily as needed (for nausia). 30 Tab 2 07/19/2020 Active XANAX XR 0.5 MG 24 hr tablet Take 1 Tab by mouth daily as needed (anxiety) for up to 30 days. 30 tablet 0 08/15/2020 Active azithromycin (ZITHROMAX) 250 MG tablet Take 250 mg by mouth daily. 1 tablet on Friday, Wednesdays and Fridays 0 Active BHQUOVL-OJXIOYONS-R INC OR Take 1 Tab by mouth daily. 0 Active Loratadine 10 MG Cap Take 1 Cap by mouth daily. 0 Active Lexapro 10 MG tablet 1 po qam 90 tablet 0 05/28/2021 Active Apixaban 5 MG Tab Take 1 tablet by mouth 2 times daily. 0 Active atorvastatin (LIPITOR) 40 MG tablet Take 1 Tablet by mouth daily. 90 Tablet 3 11/26/2022 Active Active Problems Problem Noted Date Palpitations 08/21/2021 Aphasia as late effect of stroke 021 Overview: Small acute lacunarinfarct, R cerebellar hemisphere 08/03/2021. Cervical spondylosis 08/21/2021 Sinus disease 08/21/2021 Overview: Severe left maxillary, incidental finding 08/03/2021 adm for stroke. Small PFO (patent foramen ovale) 021 Overview: Transthoracic Echo 08/06/2021 during adm for stroke. Acute UTI 08/21/2021 Overview: Found on adm for stroke 08/03/2021. 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 Constipation 11/23/2014 Overview: Childhood onset IBS (irritable bowel syndrome) 5 Overview: Constipation dominant. Multiple pulmonary nodules 11/10/2014 Osteoporosis 12/16/2011 Overview: Bone density 07/19/09 and 12/11/11 SERG (obstructive sleep apnea) 12/25/2007 Overview: Not using cpap History of colonic polyps 06/04/2007 Overview: 12/20/2005 colonoscopy 5 mm tubular adenomas x 2, No polyps at colonoscopy 2008 and 2013. Repeat indicated 2023. Asthma-chronic obstructive pulmonary dis ease overlap syndrome 06/04/2007 Migraine 06/04/2007 Overview: Ocular Chronic sinus infection 06/04/2007 Overview: Severe left maxillary, incidental finding 08/03/2021 adm for stroke. Hx several surgical procedures. Hypothyroidism 06/04/2007 GERD (gastroesophageal reflux disease) 0 06/04/2007 Overview: Normal EGD on PPI rx 12/09/2014. Resolved Problems Problem Noted Date Resolved Date Other bipolar disorders 08/22/2014 06/27/20 16 Immunizations Name Administration Dates Next Due Influenza (> 6 Months) 07/21/2013,2011,07/21/2011,08/07,07/22/2009,08/20/2008,08/11/2007 Influenza H1N1 Pandemic Flu Vaccine 10/11/2009 Influenza vaccine high dose age 65 and over 08/01/2021,07/28/2019,07/07/2018 Pneumoccoccal(Adult) Polysac charide PPSV23 11/17/2013 Pneumococcal Conjugate PCV-13 06/22/2015 Shingrix (Patient reported) 09/11/2020 TD (STATE SUPPLIED FOR ADULT S AND CHILDREN) 11/17/2019 Tdap 09/01/2009 Zostavax 03/18/2012 Family History Medical History Relation Name Comments Other Father Thyroid cancer Other Mother Alcohol problem s Relation Name Status Comments Brother 1 heart Brother 2 Alive thyroid cancer Brother 3 downs syndrome Father lung cancer Mother ?? Sister Alive ? Social History Tobacco Use Types Packs/Day Years Used Date Smoking Tobacco: Never Smokeless Tobacco: Never Alcohol Use Standard Drinks/Week Comments No 0 (1 standard drink = 0.6 oz pur e alcohol) Sex Assigned at Date Recorded Not on file Job Start Date Occupation Industry Not on file Not on file Not on file Last Filed Vital Signs Vital Sign Reading Time Taken Comments Blood Pressure 108/60 08/30/2021 1:05 PM EDT Pulse 76 08/30/2021 1:05 PM EDT Temperature 36.3 ??C (97.3 ??F) 08/30/2021 1:05 PM ED T Respiratory Rate 12 08/30/2021 1:05 PM EDT Oxygen Saturation 98% 08/13/2021 12: 53 PM EDT Inhaled Oxygen Concentration - - Weight 48.9 kg (107 lb 12.8 oz) 08/30/2021 1:05 PM EDT Height 154.9 cm (5' 1 ) 08/30/2021 1:05 PM EDT Body Mass Index 20.37 08/30/2021 1:05 PM EDT Plan of Treatment Health Maintenance Due Date Last Done Comments Covid-19 Vaccine (#1) 04/29/1946 BONE DENSITY SCREENING 08/30/2018 6, 02/23/2014, 01/18/2014 (Exception), Additional history exists SHINGLES VACCINE (3 of 3) 11/06/2020 09/11/2020, DEPRESSION SCREEN 05/22/2022 05/22/2021, , 01/08/2018, Additional history exists FALL RISK ASSESSMENT 05/22/2022 05/22/2021, 05/22/2021, 04/23/2019, Additional history exists MAMMOGRAM 06/21/2022 06/21/2021 (Exte rnal Completion), 02/02/2020 (External Completion), 12/18/2016 (External Completion), Additional history exists INFLUENZA (#1) 2024 08/01/2021, 07/05, 07/07/2018, Additional history exists BMI CHECK/ADVISE 11/03/2024 10/19/2019, , 12/29/2018, Additional history exists CHOLESTEROL SCREENING 04/30/2026 04/30/2021 , 06/19/2020, 11/27/2018, Additional history exists DTAP/TDAP/TD (3 - Td or Tdap) 11/17/2029 11/17/2019, 09/01/2009 HEPATITIS C SCREENING Completed 05/25/2014 PNEUMOCOCCAL VACCINE Completed 06/22/2015, 11/17/19 14 Care Teams Mental Health Aides Teacher Relationship Specialty Start Date End Date Community, Pcp PCP - General Internal Medicine 01/23/23
--- OUTSIDE RECORDS SUMMARY | 2024-12-01 09:11 | XMS_ITS | Encounter Summary ---
Author Organization [facility] Address [address] [place] [address] Care Team Providers Care Rapid Transit Operator Name Role Phone Jennifer Sylvester MD Primary Care Provider [phone] [facility], Pcp Primary Care Provider Unavailletty e Encounter Details Date Type Department Care Team Description 09/24/2021 Clinical Education Manager Report Medical Records [address] [place] [phone] Bib Sandoval MD Social History Tobacco Use [...] have Coronavirus / COVID-19? No / Unsure 08/30/2021 12:59 PM EDT documented as of this encounter Plan of Treatment Not on file documented as of this encounter Visit Diagnoses Not on filedocumented in this encounter Care Teams Rapid Transit Operator Relationship Specialty Start Date End Date Jennifer Sylvester MD [address] [place] [address] [phone] PCP - General Internal Medicine 02/09/21 01/22/23 [facility], Pcp [address] [place] [address] [phone] PCP - General Internal Medicine 01/23/23 documented as of this encounter
--- OUTSIDE RECORDS SUMMARY | 2024-12-01 09:11 | XMS_ITS | Encounter Summary ---
Author Organization [facility] Address [address] [place] [address] Care Team Providers Care Echocardiography Tech Name Role Phone Lavell Marcos MD Primary Care Provider [phone] Jennifer Sylvester MD Primary Care Provider [phone] [facility], Pcp Primary Care Provider Unavailabl e Encounter Details Date Type Department Care Team Description 01/11/2016 Telephone Adult Medicine [address] [address] Lavell Marcos MD [address] [place] [address] Social History Tobacco Use Types Packs/Day Years [...] on filedocumented in this encounter Care Teams Echocardiography Tech Relationship Specialty Start Date End Date Lavell Marcos MD [address] [place] [address] [phone] PCP - General 04/06/07 02/08/21 Jennifer Sylvester MD [address] [place] [address] [phone] PCP - General Internal Medicine 02/09/21 01/22/23 [facility], Pcp [address] [place] [phone] PCP - General Internal Medicine 01/23/23 documented as of this encounter
== END 2024-12-01 08:37 | disposition home or self-care (01) ==
LOC: HO.MAMMO 08:36
PROVIDERS: PCP Internal Medicine; Visit Provider Internal Medicine
DX: Z12.31 Encounter for screening mammogram for malignant neoplasm of breast (principal)
CPT/HCPCS: 77063; 77067

== ENCOUNTER → 2024-12-01 08:45 | Outpatient (BNV) | payer MEDICARE, OTHER, SELFPAY | PROVIDERS: PCP Internal Medicine; Visit Provider Internal Medicine | DX: Z12.31 Encounter for screening mammogram for malignant neoplasm of breast (principal) | CPT/HCPCS: 77063; 77067 ==

== ENCOUNTER 2025-01-17 07:59 | Outpatient (AMB) | payer MEDICARE, OTHER, SELFPAY ==
--- OUTSIDE RECORDS SUMMARY | 2025-01-17 08:03 | XMS_ITS ---
Author Organization [facility] Address [address] [place] [address] Care Team Providers Care Bread Molder Name Role Phone Abby oPtter MD Primary Care Provider UnavailNadine Skinner Unavailable [phone] Allergies Allergen (clinical drug ingredient) Drug/Non Drug [...] FOR VISIT Patient presents today for constipation Medications Medication SIG (Take, Route, Frequency, Duration) [...] Once a day for 30 day(s) Active Immunizations Vaccine Route Administration Date Status Comme nts Influenza Unknown 08/25/2024 Refused Pneumococcal Unknown 08/25/2024 Refused Social History Alcohol Screen Question Answer Notes Did you have a drink containing alcohol in the p ast year? No Points 0 Interpretation Negative Section Notes: Nonsmoker; no alcohol Vital Signs Temperature 98.4 degrees Fahrenheit 08/25/20 24 Blood pressure systolic 000 mm Hg 08/25/20 24 Blood pressure diastolic 00 mm Hg 024 Height 60 in 08/25/2024 Weight 110 lb 4 oz lbs 08/25/2024 BMI 21.53 kg/m2 08/25/2024 Encounters Encounter Location Date Provider Diagnosis [facility] [address] [place] [address] 08/25/2024 Ndaine Braga Gastroesophageal ref lux disease, esophagitis presence not specified K21.9 ; Constipation, unspecified constipation type K59.00 and Irritable bowel syndrome with constipation K58.1 Assessments Encounter Date Diagnosis (ICD Code) Assessment Notes Treatment Notes Treatment Clinical Notes Section Notes 08/25/2024 Gastroesophageal reflux disease, esophagitis presence not specified (ICD-10 - K21.9) For acid reflux: You can use over the counter TUMS and/or Pepcid as needed Overall, Adelina appears quite well. She is not having any particularly new nor worrisome GI complaints at the present time. Given all of her previous colonoscopies, her clinical history, normal laboratories, and her good clinical appearance, I advised her that I don't think she needs any particular workup for her chronic constipation at this time. I advised her that given the negative colonoscopy in 2013 and just very minimal findings in 2019, I am inclined to hold off on recommending further screening colonoscopies for her given her age and some underlying comorbidities. In regard to the chronic constipation I have given her instructions to use Metamucil, MiraLax, and/or Colace on a regular basis once she finds a regimen that works for her. I did advise her that she could continue to use p.r.n. laxatives if need be but hopefully a daily bowel regimen will help to improve her bowel movement irregularity in general and she will not need to take intermittent laxatives. I did recommend that she try some scoc-hve-gkrxstr antacid such as TUMS or Pepcid if she has occasional heartburn but it does not sound like she needs to be on any daily medication for that. Again, based on her clinical history, I don't think a repeat upper endoscopy is needed either. At this point I have advised Adelina to see me on a p.r.n. basis. I did advise her to certainly call me if she has any problems or questions I can be of assistance with. Adelina was comfortable with this plan. Thank you again for allowing me to participate in Adelina's care. I shall continue to keep you advised of her progress as needed. Please do not hesitate to contact me I can be of any furter assistance in the future. 08/25/2024 Constipation, unspecified constipation type (ICD-10 - K59.00) For susan n: Start 2 Metamucil fiber pills once or twice every day with a lot of water Start some Miralax once or twice every day You can use Colace without laxative once or twice every day Stay on a healthy high fiber diet with a lot of water Overall, Adelina appears quite well. She is not having any particularly new nor worrisome GI complaints at the present time. Given all of her previous colonoscopies, her clinical history, normal laboratories, and her good clinical appearance, I advised her that I don't think she needs any particular workup for her chronic constipation at this time. I advised her that given the negative colonoscopy in 2013 and just very minimal findings in 2020, I am inclined to hold off on recommending further screening colonoscopies for her given her age and some underlying comorbidities. In regard to the chronic constipation I have given her instructions to use Metamucil, MiraLax, and/or Colace on a regular basis once she finds a regimen that works for her. I did advise her that she could continue to use p.r.n. laxatives if need be but hopefully a daily bowel regimen will help to improve her bowel movement irregularity in general and she will not need to take intermittent laxatives. I did recommend that she try some ucde-osf-pillrvo antacid such as TUMS or Pepcid if she has occasional heartburn but it does not sound like she needs to be on any daily medication for that. Again, based on her clinical history, I don't think a repeat upper endoscopy is needed either. At this point I have advised Adelina to see me on a p.r.n. basis. I did advise her to certainly call me if she has any problems or questions I can be of assistance with. Adelina was comfortable with this plan. Thank you again for allowing me to participate in Adelina's care. I shall continue to keep you advised of her progress as needed. Please do not hesitate to contact me I can be of any furter assistance in the future. 08/25/2024 Irritable bowel syndrome with constipation (ICD-10 - K58.1) Overall, Adelina appears quite well. She is not having any particularly new nor worrisome GI complaints at the present time. Given all of her previous colonoscopies, her clinical history, normal laboratories, and her good clinical appearance, I advised her that I don't think she needs any particular workup for her chronic constipation at this time. I advised her that given the negative colonoscopy in 2013 and just very minimal findings in 2020, I am inclined to hold off on recommending further screening colonoscopies for her given her age and some underlying comorbidities. In regard to the chronic constipation I have given her instructions to use Metamucil, MiraLax, and/or Colace on a regular basis once she finds a regimen that works for her. I did advise her that she could continue to use p.r.n. laxatives if need be but hopefully a daily bowel regimen will help to improve her bowel movement irregularity in general and she will not need to take intermittent laxatives. I did recommend that she try some ysal-xsg-ownpwim antacid such as TUMS or Pepcid if she has occasional heartburn but it does not sound like she needs to be on any daily medication for that. Again, based on her clinical history, I don't think a repeat upper endoscopy is needed either. At this point I have advised Adelina to see me on a p.r.n. basis. I did advise her to certainly call me if she has any problems or questions I can be of assistance with. Adelina was comfortable with this plan. Thank you again for allowing me to participate in Adelina's care. I shall continue to keep you advised of her progress as needed. Please do not hesitate to contact me I can be of any furter assistance in the future. Plan Of Treatment Treatment Notes Assessment Notes Gastroesophageal reflux dise [...] Follow Up: prn, Reason: Progress Notes * ADELINA NAVARRODOB:1945 (78 yo F)Acc No.[id number]:08/25/2024 Progress Notes Patient:?ADELINA NAVARRO Provider:?Nadine Braga MD :1945???Age:78 Y???Sex:Female D ate:08/25/2024 Address:[address] [place], [place] [id number] Pcp:Abby Potter MD Subjective: * Chief Complaints: * ???Patient presents today fo r constipation * HPI: ???incontinence:? I saw Adleina in consultation today in regard to further evaluation of her chronic constipation and gastroesophageal reflux. ?I last saw Adelina in May of 2021. Since that time she has been basically doing well from a GI standpoint but has been troubled by her chronic constipation and some occasional reflux. She describes not having a bowel movement for upwards of 3 or 4 days at a time and will usually take a laxative for that. She does not take any daily bowel regimen. This has been a very long-standing problem for her. Her most recent colonoscopy in 2019 revealed a small tubular adenoma that was removed. She had a negative colonoscopy in 2013. She denies any hematochezia nor melena. She denies abdominal pain, jaundice, nor weight loss. ?She describes eating fairly well and denies any dysphagia. She does have occasional heartburn but this is not daily nor particularly problematic. She is currently not taking any specific medications for that. ?There is no family history of colorectal cancer. ?Laboratories from earlier in the year revealed a normal CBC, normal chemistries and renal function, a normal liver profile, and a normal T4 and TSH. * ROS:?General/Constitutional:?Change in appetite?denies.?Chills?denies.?Fatigue?denies.?Ophthalmologic:?Comments?all negative.?ENT:?Comments?all negative.?Respiratory:?hemoptysis?denies.?Cough?denies.?Cardiovascular:?Chest pain?denies.?Orthopnea?denies.?Gastrointestinal:?Comments?See HPI for details.?Genitourinary:?Hematuria?denies.?Dysuria?denies.?Musculoskeletal:?Painful joints?denies.?Weakness?denies.?Skin:?Itching?denies.?Rash?denies.?Neurologic:?Headache?denies.?Seizures?denies.?Psychiatric:?Comments?all negative.? * Medical History:? * Surgical History:?Sinus surg adelso Bladder suspension surgery C-spine--at [facility] 02/15/2018 * Hospitalization/Major Diagno stic Procedure:?No Hospitalization History. * Family History:?Father: dece ased, lung cancer.?Mother: .?Maternal Grand Mother: , diagnosed with Colon cancer.?Maternal aunt: , complication w/colitis- colon cancer, diagnosed with Colon cancer.? No colorectal cancer in 1st degree relatives. * Social History:?Tobacco Use:?Tobacco Use/Smoking?Are you a: nonsmoker.?Drugs/Alcohol:?Alcohol Screen?Did you have a drink containing alcohol in the past year??No,?Points?0,?Interpretation?Negative.?Miscellaneous:?Marital status: . Occupation: retired. ???Nonsmoker; no alcohol. * Medications:?TakingVitamin D -3 125 MCG (5000 UT) Tablet 1 tablet Orally Once a dayLexapro 10 MG Tablet 1 tablet Orally Once a dayCo Q 10 10 MG Capsule 1 capsule with a meal Orally Once a day, Notes: prnRestasis 0.05 % Emulsion 1 drop into affected eye Ophthalmic Twice a dayZaditor 0.025 % Solution 1 drop into affected eye Ophthalmic Twice a dayClaritin 10 MG Tablet 1 tablet Orally Once a dayVitamin B12 1000 MCG Tablet Extended Release 1 tablet Orally Once a dayAtorvastatin Calcium 40 MG Tablet 1 tablet Orally Once a dayCompazine 10 MG TAKE ONE TABLET ORALLY 2 TIMES A DAY NEEDED FOR NAUSEA, Notes: as neededProbiotic - Capsule as directed Orally EVERY DAY/10 BILLIONCELLXanax 0.5 MG Tablet 1 tablet Orally PRNAdvair Diskus 100-50 MCG/DOSE Aerosol Powder Breath Activated 1 puff Inhalation Twice a dayLexapro 10 MG Tablet 1 tablet Orally Once a dayEliquis 5 MG Tablet TAKE 1 TABLET BY MOUTH TWICE DAILY Oral , Notes: R918,UnavailableTaking Vitamin D-3 125 MCG (5000 UT) Tablet 1 tablet Orally Once a dayTaking Lexapro 10 MG Tablet 1 tablet Orally Once a dayTaking Co Q 10 10 MG Capsule 1 capsule with a meal Orally Once a day, Notes: prnTaking Restasis 0.05 % Emulsion 1 drop into affected eye Ophthalmic Twice a dayTaking Zaditor 0.025 % Solution 1 drop into affected eye Ophthalmic Twice a dayTaking Claritin 10 MG Tablet 1 tablet Orally Once a dayTaking Vitamin B12 1000 MCG Tablet Extended Release 1 tablet Orally Once a dayTaking Atorvastatin Calcium 40 MG Tablet 1 tablet Orally Once a dayTaking Compazine 10 MG TAKE ONE TABLET ORALLY 2 TIMES A DAY NEEDED FOR NAUSEA, Notes: as neededTaking Probiotic - Capsule as directed Orally EVERY DAY/10 BILLIONCELLTaking Xanax 0.5 MG Tablet 1 tablet Orally PRNTaking Advair Diskus 100-50 MCG/DOSE Aerosol Powder Breath Activated 1 puff Inhalation Twice a dayTaking Lexapro 10 MG Tablet 1 tablet Orally Once a dayTaking Eliquis 5 MG Tablet TAKE 1 TABLET BY MOUTH TWICE DAILY Oral , Notes: R918,UnavailableDiscontinuedAzithromycin 500 MG Tablet 1 tablet Orally M,W,FReclast 5 MG/100ML Solution as directed Intravenous Once a yearPepcid 20 MG Tablet 1 Orally BIDAspirin 81 81 MG Tablet Delayed Release 1 tablet Orally Once a dayPepcid 40 MG Tablet 1 Orally BIDMedication List reviewed and reconciled with the patientDiscontinued Azithromycin 500 MG Tablet 1 tablet Orally M,W,FDiscontinued Reclast 5 MG/100ML Solution as directed Intravenous Once a yearDiscontinued Pepcid 20 MG Tablet 1 Orally BIDDiscontinued Aspirin 81 81 MG Tablet Delayed Release 1 tablet Orally Once a dayDiscontinued Pepcid 40 MG Tablet 1 Orally BIDMedication List reviewed and reconciled with the patient * Allergies:?PenicillamineTetr acycline HClCodeine PhosphateBiaxinSulfacet-RUltracetVicodinNexiumDicyclomine HClPercocetOxycodone HClyes[Allergies Verified] Objective: * Vitals:?Wt: 110 lb 4 oz, Ht: 60 in, BMI:21.53 Index, BP: 000/00 mm Hg, Temp: 98.4. * Examination: ???General Examination: ?GENERAL APPEARANCE:?pleasant, well nourished, well developed, in no acute distress.?EYES:?sclera non-icteric.?ORAL CAVITY:?mucosa moist.?NECK/THYROID:?no cervical lymphadenopathy, neck supple.?SKIN:?nonjaundiced, no spider angiomata.?HEART:?S1, S2 normal.?LUNGS:?clear to auscultation bilaterally.?ABDOMEN:?normal bowel sounds, no guarding or rigidity, no guarding or rigidity, no masses palpable, soft, nontender, nondistended.?EXTREMITIES:?no edema.?NEUROLOGIC:?alert and oriented.? Assessment: * Assessment: 1.?Constipation, unspecified constipation type - K59.00 (Primary)?2.?Gastroesophageal reflux disease, esophagitis presence not specified - K21.9?3.?Irritable bowel syndrome with constipation - K58.1? Overall, Adelina appears quite well. She is not having any particularly new nor worrisome GI complaints at the present time. Given all of her previous colonoscopies, her clinical history, normal laboratories, and her good clinical appearance, I advised her that I don't think she needs any particular workup for her chronic constipation at this time. I advised her that given the negative colonoscopy in 2013 and just very minimal findings in 2020, I am inclined to hold off on recommending further screening colonoscopies for her given her age and some underlying comorbidities. In regard to the chronic constipation I have given her instructions to use Metamucil, MiraLax, and/or Colace on a regular basis once she finds a regimen that works for her. I did advise her that she could continue to use p.r.n. laxatives if need be but hopefully a daily bowel regimen will help to improve her bowel movement irregularity in general and she will not need to take intermittent laxatives. I did recommend that she try some wtnl-flw-cfydqpp antacid such as TUMS or Pepcid if she has occasional heartburn but it does not sound like she needs to be on any daily medication for that. Again, based on her clinical history, I don't think a repeat upper endoscopy is needed either. At this point I have advised Adelina to see me on a p.r.n. basis. I did advise her to certainly call me if she has any problems or questions I can be of assistance with. Adelina was comfortable with this plan. Thank you again for allowing me to participate in Adelina's care. I shall continue to keep you advised of her progress as needed. Please do not hesitate to contact me I can be of any furter assistance in the future. Plan: * Treatment: 2.?Gastroesophageal reflux d isease, esophagitis presence not specified? Notes: For acid reflux: You can use over the counter TUMS and/or Pepcid as needed?? * Immunizations:? Influenza (Not administered - Refused: Patient decision)??? Pneumococcal (Not administered - Refused: Patient decision) * Procedure Codes:?1036F TOBAC CO [id number] BP SCR NOT PRFRM REC REASON NOS * Preventive Medicine:? ??Urinary Incontinence:?Urinary Incontinence?Assessment:?Present,?Plan of care documented:?Yes,?Type of plan of care:?Bladder training.? ??Screenings:?Fall Risk Screening?Fall Risk Assessment:?No falls in the past year,?Screening:?No falls in the past year,?Assessment:?Not performed, no reason specified,?Plan of Care:?Not documented, no reason specified.? * Follow Up:?prn * * Sign off status: Completed true * Provider:?Nadine Braga MD Date:? 024 Generated for Carmelina baker/Quincy/Jose on:?01/17/2025 08:03 AM EDT History and Physical Notes * HPI (History of Present Illness) Category Sub-Category Detail Notes Category Not es incontinence I saw Adelina in consultation today in regard to further evaluation of her chronic constipation and gastroesophageal reflux. I last saw Adelina in May of 2021. Since that time she has been basically doing well from a GI standpoint but has been troubled by her chronic constipation and some occasional reflux. She describes not having a bowel movement for upwards of 3 or 4 days at a time and will usually take a laxative for that. She does not take any daily bowel regimen. This has been a very long-standing problem for her. Her most recent colonoscopy in 2019 revealed a small tubular adenoma that was removed. She had a negative colonoscopy in 2013. She denies any hematochezia nor melena. She denies abdominal pain, jaundice, nor weight loss. She describes eating fairly well and denies any dysphagia. She does have occasional heartburn but this is not daily nor particularly problematic. She is currently not taking any specific medications for that. There is no family history of colorectal cancer. Laboratories from earlier in the year revealed a normal CBC, normal chemistries and renal function, a normal liver profile, and a normal T4 and TSH. Examination Category Sub-Category Detail Notes Category Not es General Examination GENERAL APPEARANCE: pleasant , well [...]
--- OUTSIDE RECORDS SUMMARY | 2025-01-17 08:03 | XMS_ITS | Encounter Summary ---
Author Organization [facility] Address [address] [place] [address] Care Team Providers Care Feather Renovator Name Role Phone TariqMarleeelidia Marc Primary Care Provider [phone] Reason for Visit * Reason Onset Date Comments PAC Patient Request Call Back 06/08/2024 Encounter Details Date Type Department Care Team (Late st Contact Info) Description 06/08/2024 Telephone [facility] [address] [place] [address] Telephone Intake, Staff PAC Patient Request Call [...] for 9am. Patient can be reached at [phone]. Thank you - PAC documented in this encounter Plan of Treatment Upcoming Encounters Date Type Department Care Team (Late st Contact Info) Description 03/03/2025 9:30 AM EDT Follow-Up [facility] [address] [place] [address] Mortgage Lender: Carlos Diop MD [address] [place] [id number] 06/15/2025 9:00 AM EDT Clinical Support [facility] [address] [place] [address] Mortgage Lender: Marlena Hurst documented as of this encounter Visit Diagnoses Not on filedocumented in this encounter Care Teams Feather Renovator Relationship Specialty Start Date End Date Abby Potter [address] [place] [address] [place] [address] PCP - General Internal Medicine 04/14/24 documented as of this encounter
--- OUTSIDE RECORDS SUMMARY | 2025-01-17 08:03 | XMS_ITS | Clinical Summary ---
Author Organization [facility] Address [address] [place] [address] Care Team Providers Care Community Health Director Name Role Phone TariqAbby Monico Primary Care Provider [phone] Allergies Active Allergy Reactions Criticality Noted Date [...] Encounters Date Type Department Care Team Description 12/14/2024 9:30 AM EST Clinical Support [facility] [address] [place] [phone] Nail Welter: Deanna Miller LPN Age-related osteoporosis without current pathological fracture (Primary Dx) 12/01/2024 myChart Message [facility] [address] [place] [address] [phone] Nail Welter: Carlos Diop MD Low potassium from Last 3 Months Social History Tobacco [...] Info) Description 03/03/2025 9:30 AM EDT Follow-Up [facility] [address] [place] [address] [phone] Nail Welter: Carlos Diop MD [address] [place] [address] [phone] 06/15/2025 9:00 AM EDT Clinical Support [facility] [address] [place] [phone] Nail Welter: Marlena Hurst Health Maintenance Due Date Last Done Comments Hepatitis C Screening 1945 Medicare AWV 1946 COVID-19 Vaccine ( season) 2024 08/05/2023, 10/21/2021, [...] Screening 11/03/2042 08/31/2024 Zoster Vaccines Completed 10/03/2020, 1107/2020, 07/20/2020, Additional history exists RSV Vaccine (60+ years old and patients) Completed 08/05/2023 Osteoporosis Screening Completed 10/31/2023, 2018 Pneumococcal Vaccine: 50+ Years Completed 03/05/2024, 06/22/2015, 11/17/2013 Hepatitis B Vaccines Aged Out No long er eligible based on patient's age to complete this topic Procedures * Due to [place] state law, this organization might not be [...] EST Age-related osteoporosis without current pathological fracture DEXA SCAN 10/31/2023 from Last 3 Months or Most Recently Relevant to Health Maintenance Results * Due to [place] state law, this organization might not be sharing negative HIV tests. * Vitamin D, 25-Hydroxy, Total, Immunoassay (11/10/2024 10:34 AM EST) Calcidiol+ercalc idiol 73 30 - 100 ng/mL 11/10/2024 11:44 PM EST myaNUMBER Comment: Vitamin D Status ? 25-OH Vitamin D: Deficiency: ?<20 ng/mL Insufficiency: ? 20 - 29 ng/mL Optimal: ? > or = 30 ng/mL For 25-OH Vitamin D testing on patients on D2-supplementation and patients for whom quantitation of D2 and D3 fractions is required, the QuestAssureD() 25-OH VIT D, (D2,D3), LC/MS/MS is recommended: order code 86226 (patients >2yrs). See Note 1 Note 1 For additional information, please refer to http://education.SLEDVision/faq/DQI049 (This link is being provided for informational/ educational purposes only.) Blood Structure of peripheral vein / Unknown 11/10/2024 10:34 AM EST 11/10/2024 8:47 PM EST Narrative [facility] - 11/10/2024 11:45 PM EST FASTING:NO Lacey Patel MD LAB BLOOD ORDERABLES Final Re sult [facility] [address] [facility] 3rd Floor, [place] [address], [employer] [facility] [address] [place] [address] * CBC (11/10/2024 10:34 AM EST) Pathologist [facility] White Blood Cell Count 7.7 3.8 - 10.8 Thousand/ uL 11/10/2024 9:43 PM EST [facility] Red Blood Cell Count 4.13 3.80 - 5.10 Million/u L 11/10/2024 9:43 PM EST [employer] [facility] Hemoglobin 12.0 11.7 - 15.5 g/dL 11/10/2024 9:43 PM EST [facility] Hematocrit 36.7 35.0 - 45.0 % 11/10/2024 9:43 PM EST [facility] MCV 88.9 80.0 - 100.0 fL 11/10/2024 9:43 PM EST [facility] MCH 29.1 27.0 - 33.0 pg 11/10/2024 9:43 PM EST [facility] MCHC 32.7 32.0 - 36.0 g/dL 11/10/2024 9:43 PM EST myaNUMBER Comment: For adults, a slight decrease in the calculated MCHC value (in the range of 30 to 32 g/dL) is most likely not clinically significant; however, it should be interpreted with caution in correlation with other red cell parameters and the patient's clinical condition. RDW 12.8 11.0 - 15.0 % 11/10/2024 9:43 PM EST [facility]aNUMBER Platelet Count 285 140 - 400 Thousand/ uL 11/10/2024 9:43 PM EST [facility] MPV 9.5 7.5 - 12.5 fL 11/10/2024 9:43 PM EST [facility] Blood Structure of peripheral vein / Unknown 11/10/2024 10:34 AM EST 11/10/2024 8:23 PM EST Narrative [facility] - 11/10/2024 11:45 PM EST FASTING:NO us Lacey Patel MD LAB BLOOD ORDERABLES Final Re sult Performing Organization Address City/[facility]/ZIP Co de Phone Number [facility] [address], [place] [address], [place] [phone] [employer] [address] [address] * Phosphorus (11/10/2024 10:34 AM EST) Phosphate 2.5 2.1 - 4.3 mg/dL 11/10/2024 11:36 PM EST [employer] [facility] Blood Structure of peripheral vein / Unknown 11/10/2024 10:34 AM EST 11/10/2024 8:47 PM EST Narrative [facility] - 11/10/2024 11:45 PM EST FASTING:NO us Lacey Patel MD LAB BLOOD ORDERABLES Final Re sult Performing Organization Address [facility] Co de Phone Number [facility] [address], [place] [address], [place] [phone] [employer] [address] [address] * Magnesium (11/10/2024 10:34 AM EST) Magnesium 2.0 1.5 - 2.5 mg/dL 11/10/2024 11:36 PM EST [employer] [facility] Blood Structure of peripheral vein / Unknown 11/10/2024 10:34 AM EST 11/10/2024 8:47 PM EST Narrative [facility] - 11/10/2024 11:45 PM EST FASTING:NO us Lacey Patel MD LAB BLOOD ORDERABLES Final Re sult [facility] [address] [facility] 3rd Floor, [place] [address], [employer] [facility] [address] [place] [address] * (ABNORMAL) Comprehensive Metabolic Panel (11/10/2024 10:34 AM EST) Glucose 92 65 - 139 mg/dL 11/10/2024 11:36 PM EST [employer] [facility] Comment: ? Non-fasting reference interval BUN 10 7 - 25 mg/dL 11/10/2024 11:36 PM EST myaNUMBER Creatinine 0.73 0.60 - 1.00 mg/dL 11/10/2024 11:36 PM EST myaNUMBER eGFR 85 > OR = 60 mL/min/1. 73m2 11/10/2024 11:36 PM [email or web address] Bun/Creatinine Ratio SEE NOTE: 6 - 22 (calc) 11/10/2024 11:36 PM [email or web address] Comment: ?? Not Reported: BUN and Creatinine are within ?? reference range. ? Sodium 140 135 - 146 mmol/L 11/10/2024 11:36 PM EST myaNUMBER Potassium 3.3(L) 3.5 - 5.3 mmol/L 11/10/2024 11:36 PM [employer] [place] [employer] Chloride 105 98 - 110 mmol/L 11/10/2024 11:36 PM [email or web address] Carbon Dioxide 26 20 - 32 mmol/L 11/10/2024 11:36 PM [employer] Calcium 9.2 8.6 - 10.4 mg/dL 11/10/2024 11:36 PM [employer] Protein, Total 6.2 6.1 - 8.1 g/dL 11/10/2024 11:36 PM EST myaNUMBER Albumin 4.2 3.6 - 5.1 g/dL 11/10/2024 11:36 PM [employer] Globulin 2.0 1.9 - 3.7 g/dL (calc) 11/10/2024 11:36 PM [employer] Albumin/Globuli n Ratio 2.1 1.0 - 2.5 (calc) 11/10/2024 11:36 PM EST [employer] [facility] Bilirubin, Total 1.2 0.2 - 1.2 mg/dL 11/10/2024 11:36 PM EST [employer] [facility] Alkaline Phosphatase 62 37 - 153 U/L 11/10/2024 11:36 PM EST [employer] [facility] AST 17 10 - 35 U/L 11/10/2024 11:36 PM EST [employer] [facility] ALT 9 6 - 29 U/L 11/10/2024 11:36 PM EST [employer] [facility] Blood Structure of peripheral vein / Unknown 11/10/2024 10:34 AM EST 11/10/2024 8:47 PM EST Narrative [facility] - 11/10/2024 11:45 PM EST FASTING:NO us Lacey Patel MD LAB BLOOD ORDERABLES Final Re sult [facility] [address] [facility] 3rd Floor, [place] [address], [place] [phone] [employer] [facility] [address] [place] [address] * Dexa Scan (10/31/2023) Anatomical Region Laterality Modality Other 10/31/2023 us Onbase Scan [facility] Final Resu lt from Last 3 Months or Most Recently Relevant to Health Maintenance Insurance MEDICARE [facility] Care Teams Community Health Director Relationship Specialty Start Date End Date Abby Potter [address] [place] [address] [place] [address] PCP - General Internal Medicine 04/14/24
--- OUTSIDE RECORDS SUMMARY | 2025-01-17 08:03 | XMS_ITS | Referral Summary ---
Author Organization [facility] Address [address] [place] [address] Care Team Providers Care Surface Ship Usw Supervisor Name Role Phone Abby Potter Primary Care Provider [phone] Encounters Date Type Department Care Team Description 12/14/2024 9:30 AM EST Clinical Support [facility] [address] [place] [address] Sample Carrier: Deanna Miller LPN Age-related osteoporosis without current pathological fracture (Primary Dx) 12/01/2024 myChart Message [facility] [address] [place] [address] [phone] Sample Carrier: Carlos Diop MD Low potassium from Last 3 Months Allergies Active Allergy [...] Info) Description 03/03/2025 9:30 AM EDT Follow-Up [facility] [address] [place] [address]371 Sample Carrier: Carlos Diop MD [address] [place] [address] 06/15/2025 9:00 AM EDT Clinical Support [facility] [address] [place] [address] 43344 Sample Carrier: Marlnea Hurst Procedures * Due to [place] [employer] law, this organization might not be sharing [...] EST Age-related osteoporosis without current pathological fracture HM DEXA SCAN 10/31/2023 from Last 3 Months or Most Recently Relevant to Health Maintenance Results * Due to [place] [employer] law, this organization might not be sharing negative HIV tests. * Vitamin D, 25-Hydroxy, Total, Immunoassay (11/10/2024 10:34 AM EST) Calcidiol+ercalc idiol 73 30 - 100 ng/mL 11/10/2024 11:44 PM EST [employer] Comment: Vitamin D Status ? 25-OH Vitamin D: Deficiency: ?<20 ng/mL Insufficiency: ? 20 - 29 ng/mL Optimal: ? > or = 30 ng/mL For 25-OH Vitamin D testing on patients on D2-supplementation and patients for whom quantitation of D2 and D3 fractions is required, the QuestAssureD(TM) 25-OH VIT D, (D2,D3), LC/MS/MS is recommended: order code [id number] (patients >2yrs). See Note 1 Note 1 For additional information, please refer to http://education.EpiVax/faq/DCM109 (This link is being provided for informational/ educational purposes only.) Blood Structure of peripheral vein / Unknown 11/10/2024 10:34 AM EST 11/10/2024 8:47 PM EST Narrative [facility] - 11/10/2024 11:45 PM EST FASTING:NO us Lacey Patel MD LAB BLOOD ORDERABLES Final Re sult [facility] 200 [facility] 3rd Floor, [place] [address], [employer] [facility] [address] [place] [address] * CBC (11/10/2024 10:34 AM EST) White Blood Cell Count 7.7 3.8 - 10.8 Thousand/ uL 11/10/2024 9:43 PM EST [employer] [facility] Red Blood Cell Count 4.13 3.80 - 5.10 Million/u L 11/10/2024 9:43 PM EST [employer] Hemoglobin 12.0 11.7 - 15.5 g/dL 11/10/2024 9:43 PM EST [employer] [facility] Hematocrit 36.7 35.0 - 45.0 % 11/10/2024 9:43 PM EST [employer] [facility] MCV 88.9 80.0 - 100.0 fL 11/10/2024 9:43 PM EST [employer] MCH 29.1 27.0 - 33.0 pg 11/10/2024 9:43 PM EST [employer] MCHC 32.7 32.0 - 36.0 g/dL 11/10/2024 9:43 PM EST [facility] Comment: For adults, a slight decrease in the calculated MCHC value (in the range of 30 to 32 g/dL) is most likely not clinically significant; however, it should be interpreted with caution in correlation with other red cell parameters and the patient's clinical condition. RDW 12.8 11.0 - 15.0 % 11/10/2024 9:43 PM EST [employer] Platelet Count 285 140 - 400 Thousand/ uL 11/10/2024 9:43 PM EST [employer] MPV 9.5 7.5 - 12.5 fL 11/10/2024 9:43 PM EST [employer] Blood Structure of peripheral vein / Unknown 11/10/2024 10:34 AM EST 11/10/2024 8:23 PM EST Narrative [facility] - 11/10/2024 11:45 PM EST FASTING:NO Lacey Patel MD LAB BLOOD ORDERABLES Final Re sult Performing Organization Address City/[facility]/ZIP Co de Phone Number [facility] [address] [place] [address], [place] [address], [place] [phone] [employer] [address] [address] * Phosphorus (11/10/2024 10:34 AM EST) Phosphate 2.5 2.1 - 4.3 mg/dL 11/10/2024 11:36 PM EST [employer] Blood Structure of peripheral vein / Unknown 11/10/2024 10:34 AM EST 11/10/2024 8:47 PM EST Narrative [facility] - 11/10/2024 11:45 PM EST FASTING:NO Lacey Patel MD LAB BLOOD ORDERABLES Final Re sult [facility] [address], [place] [address], [place] [phone] [employer] [address] [place] [address] * Magnesium (11/10/2024 10:34 AM EST) Magnesium 2.0 1.5 - 2.5 mg/dL 11/10/2024 11:36 PM EST [employer] Blood Structure of peripheral vein / Unknown 11/10/2024 10:34 AM EST 11/10/2024 8:47 PM EST Narrative [facility] - 11/10/2024 11:45 PM EST FASTING:NO Lacey Patel MD LAB BLOOD ORDERABLES Final Re sult [facility] [address], [place] [address], [place] [phone] [employer] [address] [place] [address] * (ABNORMAL) Comprehensive Metabolic Panel (11/10/2024 10:34 AM EST) Glucose 92 65 - 139 mg/dL 11/10/2024 11:36 PM EST [facility] Comment: ? Non-fasting reference interval BUN 10 7 - 25 mg/dL 11/10/2024 11:36 PM [employer] Creatinine 0.73 0.60 - 1.00 mg/dL 11/10/2024 11:36 PM [employer] eGFR 85 > OR = 60 mL/min/1. 73m2 11/10/2024 11:36 PM [employer] Bun/Creatinine Ratio SEE NOTE: 6 - 22 (calc) 11/10/2024 11:36 PM [employer] Comment: ?? Not Reported: BUN and Creatinine are within ?? reference range. ? Sodium 140 135 - 146 mmol/L 11/10/2024 11:36 PM [employer] Potassium 3.3(L) 3.5 - 5.3 mmol/L 11/10/2024 11:36 PM [employer] Chloride 105 98 - 110 mmol/L 11/10/2024 11:36 PM EST [employer] [facility] Carbon Dioxide 26 20 - 32 mmol/L 11/10/2024 11:36 PM EST [employer] [facility] Calcium 9.2 8.6 - 10.4 mg/dL 11/10/2024 11:36 PM EST [employer] [facility] Protein, Total 6.2 6.1 - 8.1 g/dL 11/10/2024 11:36 PM EST [employer] [facility] Albumin 4.2 3.6 - 5.1 g/dL 11/10/2024 11:36 PM EST [employer] [facility] Globulin 2.0 1.9 - 3.7 g/dL (calc) 11/10/2024 11:36 PM EST [employer] [facility] Albumin/Globuli n Ratio 2.1 1.0 - 2.5 (calc) 11/10/2024 11:36 PM EST [employer] [facility] Bilirubin, Total 1.2 0.2 - 1.2 mg/dL 11/10/2024 11:36 PM EST [employer] [facility] Alkaline Phosphatase 62 37 - 153 U/L 11/10/2024 11:36 PM EST [employer] [facility] AST 17 10 - 35 U/L 11/10/2024 11:36 PM EST [employer] [facility] ALT 9 6 - 29 U/L 11/10/2024 11:36 PM EST [employer] [facility] Blood Structure of peripheral vein / Unknown 11/10/2024 10:34 AM EST 11/10/2024 8:47 PM EST Narrative [facility] - 11/10/2024 11:45 PM EST FASTING:NO Lacey Patel MD LAB BLOOD ORDERABLES Final Re sult [facility] [address] [facility] 3rd Floor, [place] [address], [employer] [facility] [address] [place] [address] * Dexa Scan (10/31/2023) Anatomical Region Laterality Modality Other 10/31/2023 us Onbase Scan [facility] [employer] Final Resu lt from Last 3 Months or Most Recently Relevant to Health Maintenance Insurance MEDICARE [facility] Care Teams Surface Ship Usw Supervisor Relationship Specialty Start Date End Date Abby Potter [address] [place] [address] [place] [address] PCP - General Internal Medicine 04/14/24
--- OUTSIDE RECORDS SUMMARY | 2025-01-17 08:04 | XMS_ITS ---
Author Organization [facility] Address [address] [place] [address] Care Team Providers Care Secure Software Assessor Name Role Phone Abby Potter Primary Care Provider Charity Castro [phone] REASON FOR VISIT 2/6 appt Encounters Encounter Location Date Provider Diagnosis [address] [address] 12/07/2024 Charity Marquez Plan Of Treatment Next Appt Details Provider Name:Charity Marquez , 03/07/2025 09:15:00 AM, [address] [place], [address], Progress Notes * Adelina TAVAREZ ADOB:[birth year] (79 yo F)Acc No.[id number]:12/07/2024 Patient:?Adelina TAVAREZ :1945???Age:79 Y???Sex:Female Address:[address] [place] [address] [place] [address] * true * Date:? Generated for Printi ng/[place]/eTransmitting on:?01/17/2025 08:04 AM EDT
--- OUTSIDE RECORDS SUMMARY | 2025-01-17 08:04 | XMS_ITS ---
Author Organization [facility] Address [address] [place] [address] Care Team Providers Care Brick And Block Mason Name Role Phone Abby Potter Primary Care Provider Charity Castro Unavailable [phone] Raisa Bach [phone] REASON FOR VISIT switched to Dr Marquez Encounters Encounter Location Date Provider Diagnosis [address] [address] 12/09/2024 Raisa Bach Plan Of Treatment Next Appt Details Provider Name:Charity Rohan Jimmy , 03/07/2025 09:15:00 AM, [address] [place], [address], Progress Notes * Adelina TAVAREZ ADOB:[birth year] (79 yo F)Acc No.[id number]:12/09/2024 Progress Note Patient:?Adelina TAVAREZ Provider:?Raisa Bach DPM :1945???Age:79 Y???Sex:Female D ate:12/09/2024 Address:[address] [place] [address] [place], [place] Pcp:Abby Potter Subjective: * Chief Complaints: * ???1. switched to Dr Marquez. * Medical History:? Objective: * Vitals:? Assessment: Plan: * Treatment: * Images: * The named appointment provid er may or may not be the originator of this progress note, and it is not deemed complete until electronically signed by the appointment provider. Sign off status: Pending * Provider:?Raisa Bach DPM Date:?0 12/09/2024 Generated for Carmelina baker/[place]/Jose on:?01/17/2025 08:03 AM EDT
--- OUTSIDE RECORDS SUMMARY | 2025-01-17 08:04 | XMS_ITS ---
Author Organization [facility] Address [address] [facility] [place] [address] Care Team Providers Care Scientist Electronics Name Role Phone Abby Potter Primary Care Provider Charity Castro Unavailable [phone] Allergies Allergen (clinical drug ingredient) Drug/Non Drug [...] Duration) Notes Start Date End Date Status rifAMPin Not-Taking Amitiza Not-Taking Aciphex Not-Taking Prednisone Not-Takin g Ethambutol HCl Not-T aking Synthroid Not-Taking Probiotic Daily Not- Taking Valium Not-Taking Linzess Not-Taking Fish Oil Not-Taking Prochlorperazine Maleate Not-Taking methylPREDNISolone N ot-Taking Indomethacin 25 MG take 1 capsule by mouth twice a day if needed for inflammation Oral for 30 Not-Taking Neurontin 100 MG Orally Not -Taking Ciclopirox Olamine 0.77% external Apply to effected areas twice a day for 30 days 01/02/2015 Not-Taking vitamin D Not-Taking Fioricet Not-Taking Calcium Not-Taking Flax Seed Oil Not-Hardy foster Walkerton 3 500 400 mg 1 capsule Orally Twice a day Not-Taking Pazeo Not-Taking Doxycycline Not-Taki samuel Crestor 10 mg Not-Hardy foster Atenolol 25 MG 1 tablet Orally Once a day Not-Taking Nystatin 329280 UNIT Orally Not-Taking Metoprolol Succinate ER Not-Taking Penicillin V Potassium 500 MG 1 tablet Orally Twice a day for 10 day(s) 02/21/2023 Not-Taking Azithromycin 500 MG Orally 3 times a week Not-Taking Ammonium Lactate 12 % 1 application Externally Twice a day for 30 days Active Doxycycline Monohydrate 100 MG 1 capsule Orally Once a day for 10 days 02/20/2023 Not-Taking Probiotic Active traMADol HCl ER 100 MG 1 tablet Orally Once a day PRN Active Eye Drops Active Lexapro Active eliquis 5 mg Active Multivitamin Active Atorvastatin Calcium 20 MG 1 tablet Orally Once a day for 30 day(s) Active Calcium Active Social History Tobacco Use: Social History Observation Description Date Details (start date - stop date) Never Smoker NA - NA Tobacco Use/Smoking Question Answer Notes Are you a: nonsmoker Additional Findings: Tobacco Non-User Current no n-smoker Tobacco use other than smoking: Question Answer Notes Are you an other tobacco user? No Vital Signs Height 5ft in 12/09/2024 Weight 110 lbs 12/09/2024 BMI 21.48 kg/m2 12/09/2024 Blood pressure systolic 112 mm Hg 12/09/19 25 Blood pressure diastolic 70 mm Hg 025 Procedures Procedure Date Ordered Date Performed Result Body Sit e 80774-MBJQSHU NAIL, 6 OR MORE 12/09/2024 N/A 71688-Wmuyivmg Plate 12/09/2024 N/A Encounters Encounter Location Date Provider Diagnosis [facility] [address] [place] [address] 12/09/2024 Charity Black Tinea unguium B35.1 ; Ingrown nail L60.0 ; Pain in right toe(s) M79.674 and Pain in left toe(s) M79.675 Assessments Encounter Date Diagnosis (ICD Code) Assessment Notes Treatment Notes Treatment Clinical Notes Section Notes 12/09/2024 Tinea unguium (ICD-10 - B35.1) 12/09/2024 Ingrown nail (ICD-10 - L60.0) 12/09/2024 Pain in right toe(s) (ICD-10 - M79.674) 12/09/2024 Pain in left toe(s) (ICD-10 - M79.675) Plan Of Treatment Pending Test Test Name Order Date [id number] NAIL, 6 OR MORE 12/09/2024 [id number] Plate 12/09/2024 Next Appt Details Follow Up: 2 Weeks,prn, Reas on: Provider Name:Charity Marquez , 03/07/2025 09:15:00 AM, [address] [place] [address], [phone], Procedure Notes * Category Sub-Category Detail Notes Nail Avulsion Procedure A fine sterile e levator was placed between the eponychium, nail fold, and nail plate to separate the the structures. A sterile nail splitter, and/or [...] the temporary use of either a digital tournaquet or the aforementioned local with epinephrine. A bacitracin sterile dressing was applied. Local wound aftercare instructions were discussed and dispensed. The patient was informed of both conservative and future surgical procedures to prevent recurrence. Tylenol or Motrin was recommended for pain or discomfort (64046) Anesthesia was accomplished TOP ICALLY with Lidocaine Hydrochloride Jelly 2 percent, was deferred - PT ABSOLUTELY REFUSES - tolerant to pain without issue/complication Location Lateral nail border, T5 Debride Nail 6-10 Nail debridement Due to the cl inical pathology outlined in the exam findings, performance of this nail treatment is medically necessary as its management by an unskilled/untrained nonprofessional would put this patients foot and overall health at risk. Therefore, debridement to affected nail(s), as described in exam ( _TA, T1, T2, T3, T4, T9, ), was performed exclusively by the physician of record to reduce/remove overall nail length, girth, thickness, subungual debris, and necrotic tissue, by manual and/or electrical means through the use of a nail nipper and/or dremel-type chicle grinder feeder, to a more viable healthy nail plate or bed tissue 6-10 nails in total. Silver nitrate was used for any petechial bleeding as necessary. Definitive antifungal treatment options, both pharmaceutical and surgical, have been reviewed and discussed with the patient. The patient solely prefers the use of intermittent/as needed professional debridement services for their nail condition and understands the need for additional periodic treatments to maintain effectiveness in symptomatic relief - 68154 Progress Notes * Adelina TAVAREZ ADOB:[birth year] (79 yo F)Acc No.[id number]:12/09/2024 Progress Note Patient:?MELANIEAdelina A Provider:?Charity Marquez DPM :1945???Age:79 Y???Sex:Female D ate:12/09/2024 Address:[address] [place], [place] [id number] Pcp:Abby Potter Subjective: * Chief Complaints: * ???Painful nail(s) aggrevate d by shoes causing difficulty standing/walkingIngrown Nail * HPI: ???Painful Nails:?Pt States Last PCP Visit:?Date:?11/18/2024 * ROS:?General/Constitutional:?Nausea?denies.?Vomiting?denies.?Hunger Thirst?denies.?Loss appetite?denies.?Chills?denies.?Fatigue?denies.?Fever?denies.?Night Sweats?denies.?Unexplained weight loss?denies.?Unexplained weight gain?denies.?HEENTM:?Dentures?denies.?Dizziness?denies.?Glasses/contacts?admits.?Retinopathy?de nies.?Blurred/double vision?denies.?TMJ?denies.?Discharge/drainage?denies.?Implants?denies.?Sore throat?denies.?Dental implants?denies.?Hard of hearing ?denies.?Difficulty chewing/swallowing/speaking?denies.?Nose bleeds?denies.?Sore mouth?denies.?Respiratory:?On Oxygen?denies.?Pneumonia/pleurisy?denies.?Bronchitis?denies.?Emphysema?denies.?C oughing?denies.?Cough blood?denies.?Shortness of breath?denies.?Wheezing?denies.?Cardiovascular:?Pacemaker?denies.?MVP?denies.?WPW?denies.?CHF?denies.?Heart attack?denies.?Septal defect?denies.?Rapid beat?denies.?Chest pain ?denies.?Atrial Fib.?denies.?Murmur/Palpitations?denies.?Gastrointestinal:?Hemorrhoids?denies.?Stomach/Abdominal pain?denies.?Dark blood stool?denies.?Irritable bowel ?denies.?Constipation?denies.?Diarrhea?denies.?Hematology:?Swelling?denies.?Clots?denies.?Varicose Veins?denies.?Bruising?denies.?Bleeding problem?denies.?Genitourinary:?Blood urine?denies.?Frequent/Painfu/urination/bladder control?denies.?Kidney stones?denies.?Infection (UTI)?denies.?Nephropathy?denies.?sex trans dis (STD)?denies.?Prostate?denies.?Musculoskeletal:?Hammertoes?denies.?Bunions?denies.?Back Pain?admits.?Muscle Cramps/ Resting?denies.?Muscle cramps / walking?denies.?Generalized aches and pains?denies.?Weakness?denies.?Integ.:?[place]?denies.?Scars?denies.?Corns/calluses?denies.?Ingrown nails?admits.?Painful nails?admits.?Open Sores?denies.?Rashes?denies.?Neurologic:?Difficulty sleeping?denies.?Brain disorder?denies.?Numbness?denies.?Balance trouble?denies.?Confusion?denies.?Fainting/blackouts?denies.?Tingling?denies.?Tr emors?denies.? * Medical History:? * Surgical History:?sinus surg adelso bladder surgery Lung biopsy 01/2015neck surgery 02/2019endoscopy 11/2019 * Hospitalization/Major Diagno stic Procedure:?[facility] For Pressure on chest - it was acid reflux 2018Stroke 08/2021[facility]- Broken Wrist - right 01/16/2023 * Family History:?Mother: dece ased.?Father: , diagnosed with Other malignant neoplasm of unspecified site.?Paternal Grand Mother: cancer.? * Social History:?Tobacco Use:?Tobacco Use/Smoking?Are you a:?nonsmoker ?Additional Findings: Tobacco Non-User?Current non-smoker ?Tobacco use other than smoking?Are you an other tobacco user??No ???Miscellaneous:?Caffeine: yes, 2-3 cups per day, decaff tea/coffee, sprite. ?Children: yes, 2. ?Exercise: yes, walking. ?Marital status: . 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 * Medications:?TakingCalcium M ultivitamin Atorvastatin Calcium 20 MG Tablet 1 tablet Orally Once a day eliquis 5 mg Tablet Eye Drops Lexapro Probiotic traMADol HCl ER 100 MG Tablet Extended Release 24 Hour 1 tablet Orally Once a day , Notes to Pharmacist: PRNAmmonium Lactate 12 % Cream 1 application Externally Twice a day Taking Calcium Taking Multivitamin Taking Atorvastatin Calcium 20 MG Tablet 1 tablet Orally Once a day Taking eliquis 5 mg Tablet Taking Eye Drops Taking Lexapro Taking Probiotic Taking traMADol HCl ER 100 MG Tablet Extended Release 24 Hour 1 tablet Orally Once a day , Notes to Pharmacist: PRNTaking Ammonium Lactate 12 % Cream 1 application Externally Twice a day Not-Taking/PRNDoxycycline Monohydrate 100 MG Capsule 1 capsule Orally Once a day Penicillin V Potassium 500 MG Tablet 1 tablet Orally Twice a day Azithromycin 500 MG Tablet Orally , Notes to Pharmacist: 3 times a weekMetoprolol Succinate ER Pazeo Nystatin 806540 UNIT Tablet Orally Crestor 10 mg Atenolol 25 MG Tablet 1 tablet Orally Once a day Doxycycline Walkerton 3 500 400 mg Capsule 1 capsule Orally Twice a day Calcium Flax Seed Oil vitamin D Fioricet Prochlorperazine Maleate Neurontin 100 MG Capsule Orally Ciclopirox Olamine 0.77% Cream external Apply to effected areas twice a day methylPREDNISolone Indomethacin 25 MG Capsule take 1 capsule by mouth twice a day if needed for inflammation Oral Linzess Fish Oil Probiotic Daily Valium Synthroid rifAMPin Ethambutol HCl Aciphex Prednisone Amitiza Medication List reviewed and reconciled with the patientNot-Taking/PRN Doxycycline Monohydrate 100 MG Capsule 1 capsule Orally Once a day Not-Taking/PRN Penicillin V Potassium 500 MG Tablet 1 tablet Orally Twice a day Not-Taking/PRN Azithromycin 500 MG Tablet Orally , Notes to Pharmacist: 3 times a weekNot-Taking/PRN Metoprolol Succinate ER Not-Taking/PRN Pazeo Not-Taking/PRN Nystatin 216906 UNIT Tablet Orally Not-Taking/PRN Crestor 10 mg Not-Taking/PRN Atenolol 25 MG Tablet 1 tablet Orally Once a day Not-Taking/PRN Doxycycline Not-Taking/PRN Walkerton 3 500 400 mg Capsule 1 capsule Orally Twice a day Not-Taking/PRN Calcium Not-Taking/PRN Flax Seed Oil Not-Taking/PRN vitamin D Not-Taking/PRN Fioricet Not-Taking/PRN Prochlorperazine Maleate Not-Taking/PRN Neurontin 100 MG Capsule Orally Not-Taking/PRN Ciclopirox Olamine 0.77% Cream external Apply to effected areas twice a day Not-Taking/PRN methylPREDNISolone Not-Taking/PRN Indomethacin 25 MG Capsule take 1 capsule by mouth twice a day if needed for inflammation Oral Not-Taking/PRN Linzess Not- Taking/PRN Fish Oil Not-Taking/PRN Probiotic Daily Not-Taking/PRN Valium Not-Taking/PRN Synthroid Not-Taking/PRN rifAMPin Not-Taking/PRN Ethambutol HCl Not-Taking/PRN Aciphex Not-Taking/PRN Prednisone Not-Taking/PRN Amitiza Medication List reviewed and reconciled with the patient * Allergies:?KeflexCeftinClari thromycin: nausea vomitingCefaclor: increased palpatationsFluoxetine: itching/pruritusAntacid: SOB, wheezingPropranolol HCl: hallucinationsMontelukast Sodium: headachesAcetaminophen: Increased PVCVicodin: Increased PVCCodeine: rash,dermatitisyes[Allergies Verified] Objective: * Vitals:?Ht: 5ft, Wt: 110, BM I: 21.48, Shoe size: 6, BP: 112/70 mm Hg, Ht-cm: 152.4 cm, Wt-k.9 kg. * Examination: ???General Examination: ?GENERAL APPEARANCE:?Reveals a pleasant, alert, well nourished, well- developed, well hydrated individual, who demonstrates proper attention to hygiene/body habitus, and is in no acute distress, Pt serves as own historian for office visit today.?ORIENTED:?person, place, and time.?Vascular: ?DP PULSES (B):?2/4, B/L.?PT PULSES (B):?2/4, B/L.?CAPILLARY FILL TIME:?immediate, all digits, B/L.?TROPHIC CONDITION-TEXTURE/ELASTICITY/TURGOR/HAIR GROWTH (B):?normal, B/L.?Ingrown Nail: ?INSPECTION:?Reveals nail incurvation, pain on palpation, groove hypertrophy, groove ischemia, Lateral nail border, T5.?Nails: ?NAILS are:?Elongated, overgrown, dystrophic, lytic, greater than 3mm thick, discolored and friable with crumbly malodorous subungual debris, with pain on palpation , , TA, T1, T2, T3, T4, , T9.? Assessment: * Assessment: 1.?Tinea unguium - B35.1???2 .?Ingrown nail - L60.0 (Primary)???3.?Pain in right toe(s) - M79.674???4.?Pain in left toe(s) - M79.675??? Plan: * Treatment: 2.?Tinea unguium?Procedure: [id number] NAIL, 6 OR MORE * Procedures:?Debride Nail 6-10:?Nail debridement?Due to the clinical pathology outlined in the exam findings, performance of this nail treatment is medically necessary as its management by an unskilled/untrained nonprofessional would put this patients foot and overall health at risk. Therefore, debridement to affected nail(s), as described in exam ( _TA, T1, T2, T3, T4, T9, ), was performed exclusively by the physician of record to reduce/remove overall nail length, girth, thickness, subungual debris, and necrotic tissue, by manual and/or electrical means through the use of a nail nipper and/or dremel-type chicle grinder feeder, to a more viable healthy nail plate or bed tissue 6-10 nails in total. Silver nitrate was used for any petechial bleeding as necessary. Definitive antifungal treatment options, both pharmaceutical and surgical, have been reviewed and discussed with the patient. The patient solely prefers the use of intermittent/as needed professional debridement services for their nail condition and understands the need for additional periodic treatments to maintain effectiveness in symptomatic relief - 50123.?Nail Avulsion:?Location?Lateral nail border, T5.?Anesthesia?was accomplished TOPICALLY with Lidocaine Hydrochloride Jelly 2 percent, was deferred - PT ABSOLUTELY REFUSES - tolerant to pain without issue/complication.?Procedure?A fine sterile elevator was placed between the eponychium, nail fold, and nail plate to separate the the structures. A sterile nail splitter, and/or [...] the temporary use of either a digital tournaquet or the aforementioned local with epinephrine. A bacitracin sterile dressing was applied. Local wound aftercare instructions were discussed and dispensed. The patient was informed of both conservative and future surgical procedures to prevent recurrence. Tylenol or Motrin was recommended for pain or discomfort (90022).? * Procedure Codes:?20326 DEBRI DE NAIL, 6 OR MORE, Modifiers: XS 66453 Avulsion Plate, Modifiers: T5 * Preventive Medicine:? ??Screening/Special Tests:?Fall Risk?Screening:?No falls in the past year ?FALLS: Screening for Future Fall Risk?Have you had any falls with injury in the past year??No * Follow Up:?2 Weeks,prn * Images: * Sign off status: Completed true * Provider:?Charity Marquez DPM Date:?2024 Generated for Carmelina baker/Quincy/Jose on:?01/17/2025 08:03 AM EDT History and Physical Notes * HPI (History of Present Illness) Category Sub-Category Detail Notes Category Not es Painful Nails Pt States Last PCP Visit: Date:: 11/18/2024 Examination Category Sub-Category Detail Notes Category Not es Ingrown Nail INSPECTION: Reveals nail inc urvation, pain on palpation, groove hypertrophy, groove ischemia, Lateral nail border, T5 General Examination GENERAL APPEARANCE: Reveals a pleasant, alert, well nourished, well-developed, well hydrated individual, who demonstrates proper attention to hygiene/body habitus, and is in no acute distress, Pt serves as own historian for office visit today ORIENTED: person, place, and t kriss Vascular DP PULSES (B): 2/4, B/L PT PULSES (B): 2/4, B/L CAPILLARY FILL TIME: immediate, all digi ts, B/L TROPHIC CONDITION-TEXTURE/EL ASTICITY/TURGOR/HAIR GROWTH (B): normal, B/L Nails NAILS are: Elongated, overg rown, dystrophic, lytic, greater than 3mm thick, discolored and friable with crumbly malodorous subungual debris, with pain on palpation , , TA, T1, T2, T3, T4, , T9
--- OUTSIDE RECORDS SUMMARY | 2025-01-17 08:04 | XMS_ITS ---
Author Organization [facility] Address [address] [place] [address] Care Team Providers Care Comedian Name Role Phone Abby Potter MD Primary Care Provider Nadine Tai Unavailable [phone] REASON FOR VISIT rethinking colonoscopy Encounters Encounter Location Date Provider Diagnosis [facility] [address] [place] [address] 08/26/2024 Nadine Braga Plan Of Treatment No Information Progress Notes * TIMMY NAVARRODOB:1945 (78 yo F)Acc No.[id number]:08/26/2024 Patient:?MELANIE TIMMY :1945???Age:78 Y???Sex:Female Address:[address] [place], [place] [address] [address] * true * Date:? Generated for Carmelina baker/[place]cy/eTransmitting on:?01/17/2025 08:03 AM EDT
--- OUTSIDE RECORDS SUMMARY | 2025-01-17 08:04 | XMS_ITS | Encounter Summary ---
Author Organization [facility] Address [address] [place] [address] Care Team Providers Care Bin Filler Name Role Phone TariqAbby Monico Primary Care Provider [phone] Encounter Details Date Type Department Care Team (Late st Contact Info) Description 12/01/2024 myChart Message [facility] [address] [place] [phone] Engine Generator Assembler: Carlos Diop MD [address] [place] [address] [phone] Low potassium Social History Tobacco Use Types Packs/Day Years [...] as of this encounter Plan of Treatment Upcoming Encounters Date Type Department Care Team (Late st Contact Info) Description 03/03/2025 9:30 AM EDT Follow-Up [facility] [address] [place] [phone] Engine Generator Assembler: Carlos Diop MD [address] [place] [address] [phone] 06/15/2025 9:00 AM EDT Clinical Support [facility] [address] [place] [address] Engine Generator Assembler: Marlena Hurst documented as of this encounter Visit Diagnoses Not on filedocumented in this encounter Care Teams Bin Filler Relationship Specialty Start Date End Date Abby Potter [address] [place] [address] [place] [address] PCP - General Internal Medicine 04/14/24 documented as of this encounter
--- NOTE | 2025-01-17 08:25 | A.OFFVIS_ITS ---
Vital Signs 01/17/25 08:26 Height 5 ft Weight 108 lb 14.534 oz BMI 21.3 BP 122/62 Blood Pressure Location Lt brachial Position Sitting Pulse 64 Pulse Source Pulse Oximeter Intake Visit Reasons: 6 month follow up Senior Systems Developer Required: No Accompanied by: Self / Same As Patient Allergies naproxen [From NAPROSYN] Allergy (Severe, Verified 11/25/24 10:50) sensitivity niacin [From NIASPAN EXTENDED-RELEASE] Allergy (Severe, Verified 11/25/24 10:50) Rash clarithromycin [From BIAXIN] Allergy (Mild, Verified 11/25/24 10:50) sensitivity codeine [CODEINE] Allergy (Mild, Verified 11/25/24 10:50) Itching esomeprazole [From Nexium] Allergy (Mild, Verified 11/25/24 10:50) Hives fluconazole [From DIFLUCAN] Allergy (Mild, Verified 11/25/24 10:50) sensitivity gatifloxacin [From TEQUIN] Allergy (Mild, Verified 11/25/24 10:50) sensitivity hydrocodone [From Vicodin] Allergy (Mild, Verified 11/25/24 10:50) Rash levofloxacin [From Levaquin] Allergy (Mild, Verified 11/25/24 10:50) sensitivity oxycodone [From Percocet] Allergy (Mild, Verified 11/25/24 10:50) Itching quinidine [QUINIDINE] Allergy (Mild, Verified 11/25/24 10:50) sensitivity Sulfa (Sulfonamide Antibiotics) [SULFA (SULFONAMIDE ANTIBIOTICS)] Allergy (Mild, Verified 11/25/24 10:50) Rash terfenadine [From SELDANE] Allergy (Mild, Verified 11/25/24 10:50) sensitivity tetracycline [TETRACYCLINE] Allergy (Mild, Verified 11/25/24 10:50) sensitivity cefaclor [From CECLOR] Adverse Reaction (Severe, Verified 11/25/24 10:50) Unknown abaloparatide [From Tymlos] Adverse Reaction (Intermediate, Verified 11/25/24 10:50) Dizziness cefdinir Adverse Reaction (Intermediate, Verified 11/25/24 10:50) Stomach Upset montelukast [From Singulair] Adverse Reaction (Mild, Verified 11/25/24 10:50) Headache topiramate [From TOPAMAX] Adverse Reaction (Mild, Verified 11/25/24 10:50) Stomach Upset Medication List - Last Reconciled 01/17/25 by Chris Lincoln MD albuterol sulfate 90 mcg/actuation 2 inhalations inhalation Q6H PRN 30 days atorvastatin 40 mg PO DAILY cholecalciferol (vitamin D3) TAKE 1 CAPSULE BY MOUTH DAILY Eliquis (apixaban) 5 mg PO BID 90 days NS estradiol 0.01%(0.1mg/gram) (Estrace) pea size amount to urethra vaginally daily flash glucose scanning reader (FreeStyle Waldemar 14 Day [place]) As directed flash glucose sensor (FreeStyle Waldemar 14 Day Sensor kit) As directed Flonase Allergy Relief 50 mcg/actuation (fluticasone propionate) 2 sprays intranasal DAILY NS insulin syringe-needle U-100 Use daily with Tymlos Lexapro (escitalopram oxalate) 10 mg PO DAILY NS lidocaine 4% (Lidocaine Pain Relief) 1 patch See Protocol transdermal DAILY loratadine 10 mg PO DAILY PRN nebulizers As directed polyethylene glycol 3350 (Miralax) 17 grams PO DAILY 30 days promethazine 12.5 mg PO Q6H PRN NS sennosides-docusate sodium 8.6-50 mg (Senna with Docusate Sodium) 2 tab-caps (2 x 8.6-50 mg) PO BEDTIME 30 days tramadol 50 mg PO BID PRN 21 days Xanax (alprazolam) 0.5 mg PO BEDTIME PRN NS HPI Comments Details: Adelina returns for follow up regarding stroke/PFO. Overall, just about the same as before. No clear-cut cardiac symptoms. Frail but getting along okay. [facility] Medical History Sinus congestion Cough Weight loss Polyarthralgia Fall Shoulder pain, right Back pain Nausea Palpitation Headache, post-traumatic, acute Scalp irritation Anemia Encounter for vitamin deficiency screening Renal cyst Dense breast Breast cancer screening by mammogram Acute bronchitis Ocular migraine Hyperlipidemia History of CVA (cerebrovascular accident) (~2020) Tubular adenoma of colon (~2005) SERG (obstructive sleep apnea) Nasal vestibulitis Degeneration, intervertebral disc, cervical Dry eye PONV (postoperative nausea and vomiting) Arthritis of neck Cerebral microvascular disease Atherosclerotic cardiovascular disease Precordial chest pain URI (upper respiratory infection) Overactive bladder Microscopic hematuria Urinary urgency Osteoporosis (~2000) Mycobacterial disease GERD (gastroesophageal reflux disease) Pulmonary nodules COPD (chronic obstructive pulmonary disease) Surgical History History of fusion of cervical spine History of sinus surgery History of colonoscopy History of esophagogastroduodenoscopy (EGD) History of bladder suspension procedure Family History Son No problems noted. Social History Household Members: [facility] Do you presently have visiting nurse or other home services: No Alcohol intake: never Patient Tobacco Use Status: Never used Tobacco Tobacco use type: Cigarette Years Smoked: parent and smoker e-Cigarette/Vaping Use: Never Used Second Hand Smoke Exposure: Yes Advance Directives Date on File: 08/16/20 service: No Current occupational status: retired Current occupation: right hand Cognitive needs: No Hearing needs: Yes (hearing aides) Vision needs: Yes (Glasses) Review of Systems Const Denies chills, Denies fatigue, Denies fever(s), Denies weight gain and Denies weight loss ENT Denies dizziness Card Denies chest pain, Denies leg edema, Denies lightheadedness, Denies palpitations, Reports dyspnea on exertion, Denies orthopnea and Denies other Resp Denies cough and Reports dyspnea on exertion GI Denies hematochezia and Denies change in stool character Musc Denies abnormal gait, Denies muscle weakness, Denies numbness, Denies radiating pain into limb and Denies tingling Neuro Denies abnormal gait, Denies dizziness, Denies numbness and Denies tingling Endo Denies fatigue and Denies palpitations Physical Exam Vital Signs: Last Vital Signs Pulse 64 01/17/25 08:26 BP 122/62 01/17/25 08:26 BMI result Body Mass Index 21.3 Const General: comfortable and no acute distress Orientation/consciousness: patient oriented x3 HEENT Other: Unremarkable Head: Yes normal to inspection Neck Neck: Yes normal visual inspection Chest Chest palpation & inspection: normal inspection of the chest Resp Auscultation: clear to auscultation bilaterally Cardio Palpation: normal PMI Heart sounds: S1 normal heart sound present, S2 normal heart sound present, no gallops, no murmurs and no rubs GI Palpation (GI): Soft to palpation Back/Spine/Pelvis Other: unremarkable Skin General skin exam: no rashes or lesions noted Neuro General: patient oriented x3 Extrem General: Yes normal to inspection Psych Mental Status: mental status grossly normal Assessment & Plan Assessment & Plan (1) Ischemic stroke: Code(s): I63.9 - Cerebral infarction, unspecified Category: Medical Plan: Cardiac studies reviewed. TTE- agitated saline contrast study positive for small PFO with bucir-[id number] shunting during Valsalva. MALA-In the 2D portion, PFO could be seen with color Doppler evidence of asnma-va-tvpd shunting but during saline contrast done 3x, there was no evidence of transfer bubbles from right to left side. Overall possibly small PFO with intermittent shunting but does not appear hemodynamically significant. No indication for PFO closure. She is on empiric anticoagulation for possible atrial fibrillation. (2) Atherosclerotic cardiovascular disease: Code(s): I25.10 - Atherosclerotic heart disease of [place] coronary artery without angina pectoris Category: Medical Plan: Coronary CTA from 2018-focal plaque at the mid LAD with mild narrowing; mild calcific plaque at RCA origin without any significant luminal narrowing. Myocardial perfusion imaging study from 2020 performed at [facility]-no reversible or fixed defects; exercise capacity 4.6 Mets and reached 82% of max predicted heart rate. Clinically, she has got no overt angina. Continue statins. LDL is well controlled. Coding Level of Care Code Est Pt Level 3 (17432) Complex EM visit Add On G2211 Diagnoses Ischemic stroke I63.9 Atherosclerotic cardiovascular disease I25.10
[2025-01-17 08:26] VITALS: BP 122/62; PULSE 64; BMI 21.3
== END 2025-01-17 08:45 | disposition home or self-care (01) ==
LOC: HO.HCS 07:59
PROVIDERS: PCP Internal Medicine; Visit Provider Internal Medicine
DX: I63.9 Cerebral infarction, unspecified (principal); I25.10 Atherosclerotic heart disease of native coronary artery without angina pectoris
CPT/HCPCS: 99213; G2211

== ENCOUNTER → 2025-01-17 07:59 | Outpatient (BNVA) | payer MEDICARE, OTHER, SELFPAY | PROVIDERS: PCP Internal Medicine; Visit Provider Internal Medicine | DX: I63.9 Cerebral infarction, unspecified (principal); I25.10 Atherosclerotic heart disease of native coronary artery without angina pectoris | CPT/HCPCS: 99212 ==

== ENCOUNTER 2025-01-26 08:24 | Outpatient (AMB) | payer MEDICARE, OTHER, SELFPAY ==
--- NOTE | 2025-01-26 08:35 | A.OFFPC_ITS ---
Vital Signs 3 01/26/25 08:36 Height 5 ft Weight 107 lb 4 oz BMI 20.9 BP 130/70 Blood Pressure Location Lt brachial Position Sitting Pulse 71 Pulse Source Pulse Oximeter Temp 96.9 F Temp Source Temporal Artery Scan Pulse Oximetry (%) 97 Oxygen Delivery Method Room Air Intake Visit Reasons: Breast Pain Rotary Soil Stabilizer Required: No Retort Press Operator: Not Required per policy Accompanied by: Self / Same As Patient Allergies naproxen [From NAPROSYN] Allergy (Severe, Verified 01/26/25 08:36) sensitivity niacin [From NIASPAN EXTENDED-RELEASE] Allergy (Severe, Verified 01/26/25 08:36) Rash clarithromycin [From BIAXIN] Allergy (Mild, Verified 01/26/25 08:36) sensitivity codeine [CODEINE] Allergy (Mild, Verified 01/26/25 08:36) Itching esomeprazole [From Nexium] Allergy (Mild, Verified 01/26/25 08:36) Hives fluconazole [From DIFLUCAN] Allergy (Mild, Verified 01/26/25 08:36) sensitivity gatifloxacin [From TEQUIN] Allergy (Mild, Verified 01/26/25 08:36) sensitivity hydrocodone [From Vicodin] Allergy (Mild, Verified 01/26/25 08:36) Rash levofloxacin [From Levaquin] Allergy (Mild, Verified 01/26/25 08:36) sensitivity oxycodone [From Percocet] Allergy (Mild, Verified 01/26/25 08:36) Itching quinidine [QUINIDINE] Allergy (Mild, Verified 01/26/25 08:36) sensitivity Sulfa (Sulfonamide Antibiotics) [SULFA (SULFONAMIDE ANTIBIOTICS)] Allergy (Mild, Verified 01/26/25 08:36) Rash terfenadine [From SELDANE] Allergy (Mild, Verified 01/26/25 08:36) sensitivity tetracycline [TETRACYCLINE] Allergy (Mild, Verified 01/26/25 08:36) sensitivity cefaclor [From CECLOR] Adverse Reaction (Severe, Verified 01/26/25 08:36) Unknown abaloparatide [From Tymlos] Adverse Reaction (Intermediate, Verified 01/26/25 08:36) Dizziness cefdinir Adverse Reaction (Intermediate, Verified 01/26/25 08:36) Stomach Upset montelukast [From Singulair] Adverse Reaction (Mild, Verified 01/26/25 08:36) Headache topiramate [From TOPAMAX] Adverse Reaction (Mild, Verified 01/26/25 08:36) Stomach Upset Tobacco use date assessed: 01/26/25 Fall risk assessment: No Falls in past year Last assessed Fall Risk: 01/26/25 Dental Screening Dental Screen Date: 11/25/24 HPI Breast Pain 2 HPI0 Details breast pain bilateral both lateral 3 months pain on pressing , no redness, no rash , no trauma stopped wearing bra for a long time no new exercise. 11/2024 last mammo [facility] Medical History Sinus congestion Cough Weight loss Polyarthralgia Fall Shoulder pain, right Back pain Nausea Palpitation Headache, post-traumatic, acute Scalp irritation Anemia Encounter for vitamin deficiency screening Renal cyst Dense breast Breast cancer screening by mammogram Acute bronchitis Ocular migraine Hyperlipidemia History of CVA (cerebrovascular accident) (~2020) Tubular adenoma of colon (~2005) SERG (obstructive sleep apnea) Nasal vestibulitis Degeneration, intervertebral disc, cervical Dry eye PONV (postoperative nausea and vomiting) Arthritis of neck Cerebral microvascular disease Atherosclerotic cardiovascular disease Precordial chest pain URI (upper respiratory infection) Overactive bladder Microscopic hematuria Urinary urgency Osteoporosis (~1999) Mycobacterial disease GERD (gastroesophageal reflux disease) Pulmonary nodules COPD (chronic obstructive pulmonary disease) Surgical History History of fusion of cervical spine History of sinus surgery History of colonoscopy History of esophagogastroduodenoscopy (EGD) History of bladder suspension procedure Family History Son No problems noted. Social History Household Members: Spouse Housing: Condominium Do you presently have visiting nurse or other home services: No Alcohol intake: never Patient Tobacco Use Status: Never used Tobacco Tobacco use type: Cigarette Years Smoked: parent and smoker e-Cigarette/Vaping Use: Never Used Second Hand Smoke Exposure: Yes Advance Directives Date on File: 08/16/20 service: No Current occupational status: retired Current occupation: right hand Cognitive needs: No Hearing needs: Yes (hearing aides) Vision needs: Yes (Glasses) Questionnaire Thrive Questionnaire Date Thrive assessed: 11/25/24 SAVANNAH-7 AMB Questionnaire SAVANNAH-7 Date SAVANNAH - 7 assessed: 11/25/24 Source: Developed by Drs. Augie Espinoza, Yue Griffin, Michael Gallo and colleagues, with an educational aniya from [employer]. Physical exam (Primary Care) Vital Signs: Last Vital Signs Temp 96.9 F 01/26/25 08:36 Pulse 71 01/26/25 08:36 BP 130/70 01/26/25 08:36 Pulse Ox 97 01/26/25 08:36 Oxygen Delivery Method Room Air 01/26/25 08:36 BMI result Body Mass Index 20.9 Tobacco/Smoking Status: Tobacco use Status Tobacco use date assessed 01/26/25 01/26/25 08:40 Patient Tobacco Use Status Never used Tobacco 01/26/25 08:40 Tobacco use type Cigarette 01/26/25 08:40 e-Cigarette/Vaping Use Never Used 01/26/25 08:40 Thrive Assessment: Date of Thrive Assessment Date Thrive assessed 11/25/24 01/26/25 08:40 Chest Chest/axillae images: 2 1. tender , no particular mass r 10 oclock 2. tender and no mass noted L 3 oclock 3. tender and no mass noted L 9 oclock Coding Level of Care Code Est Pt Level 3 (49094) Diagnoses Breast pain N64.4 Assessment & Plan Assessment & Plan (1) Breast pain: Code(s): N64.4 - Mastodynia Category: Medical Plan: will request for mammo and US Plan History of Present Illness The patient is a 79-year-old female presenting with breast pain. The right breast is primarily affected, with similar concerns arising in the analogous region of the right breast. The patient reports the onset of the discomfort approximately three months prior, and it manifests predominantly upon palpation of the area. She has not encountered any associated swelling, redness, or rash. There is no change in activities, such as new exercise regimens, which could explain the pain, nor has there been any trauma or notable incident contributing to its onset. The absence of close-fitting undergarments for over a year eliminates that as a contributing factor. The patient has not been aware of additional symptoms like rash, systemic symptoms, or unilateral swelling. It is noted that her last mammogram took place on November 22, although she expresses some level of apprehension regarding the existing pain and potential underlying issues. Health Maintenance - Mammogram conducted on November 22 Social History - No recent changes in exercise regimen - Prefers wearing loose-fitting clothing instead of bras for at least a year Review of Systems - Breast: Reports tenderness on palpation, primarily on the right side; denies swelling, redness, or rash - Denies systemic symptoms such as fever, chills, or fatigue Physical Exam - Breast- Tenderness elicited in a couple of areas on the left breast as well as the right; no noticeable dimpling seen upon examination Results Plan The plan includes proceeding with a breast ultrasound to further investigate the patient's reported areas of pain. This imaging modality helps elucidate any underlying causes that may not have been visible on the previous mammogram performed in November. Focus on carefully indicating the specified locations of breast tenderness during the ultrasound request. I will ensure that the patient is updated on any pertinent findings that arise from the imaging, enabling timely intervention if needed. Current patient complaints do not require urgent additional management beyond the suggested imaging strategy. Patient was informed and verbally consented to the use of an ambient scribe for clinic note documentation during this visit. Discussion Notes I discussed the patient's breast pain with her, indicating that an ultrasound might provide further clarity on her recent discomfort not resolved by the mammogram conducted on November 22. The importance of specifying the locations was emphasized to avoid complications with ordering processes. I highlighted that ultrasound could offer superior resolution when examining palpable abnormalities, benefitting accurate interpretation. Furthermore, the patient consented to these plans, understanding the steps needed for further evaluation and agreeing to communication regarding any notable results. Patient Instructions - Follow up on the scheduling of the recommended breast ultrasound. - Monitor for any new symptoms, including redness, swelling, or rash, and report them promptly if they arise. - Await communication regarding results from recent testing and further recommendations. - Continue current clothing preferences for comfort and to prevent exacerbation of symptoms. Orders: Orders 2 US breast LT limited Today N64.4 - Mastodynia US breast RT limited Today N64.4 - Mastodynia MM tomosynthesis diagnostic BI Today N64.4 - Mastodynia
[2025-01-26 08:36] VITALS: BP 130/70; PULSE 71; TEMP 36.1; O2SAT 97; BMI 20.9
--- OUTSIDE RECORDS SUMMARY | 2025-01-26 08:47 | XMS_ITS | Referral Summary ---
Author Organization [facility] Address [address] [place] [address] Care Team Providers Care Vice President Financial Name Role Phone Abby Potter Primary Care Provider [phone] Encounters Date Type Department Care Team Description 12/14/2024 9:30 AM EST Clinical Support [facility] [address] [place] [phone] Teaching Assistant: Deanna Miller LPN Age-related osteoporosis without current pathological fracture (Primary Dx) 12/01/2024 myChart Message [facility] [address] [place] [address] [phone] Teaching Assistant: Carlos Diop MD Low potassium from Last [...] Info) Description 03/03/2025 9:30 AM EDT Follow-Up [facility] [address] [place] [phone] Teaching Assistant: Carlos Diop MD [address] [place] [phone] 06/15/2025 9:00 AM EDT Clinical Support [facility] [address] [place] [phone] Teaching Assistant: Marlena Hurst Procedures * Due to [place] [employer] law, this organization might not be sharing [...] to Health Maintenance Results * Due to [place] [employer] law, this organization might not be sharing negative HIV tests. * Vitamin D, 25-Hydroxy, Total, Immunoassay (11/10/2024 10:34 AM EST) Calcidiol+ercalc idiol 73 30 - 100 ng/mL 11/10/2024 11:44 PM EST [employer] Comment: Vitamin D Status ? 25-OH Vitamin D: Deficiency: ?<20 ng/mL Insufficiency: ? 20 - 29 ng/mL Optimal: ? > or = 30 ng/mL For 25-OH Vitamin D testing on patients on D2-supplementation and patients for whom quantitation of D2 and D3 fractions is required, the QuestAssureD(TM) 25-OH VIT D, (D2,D3), LC/MS/MS is recommended: order code 54429 (patients >2yrs). See Note 1 Note 1 For additional information, please refer to http://education.e27/faq/MSU371 (This link is being provided for informational/ educational purposes only.) Blood Structure of peripheral vein / Unknown 11/10/2024 10:34 AM EST 11/10/2024 8:47 PM EST Narrative [facility] - 11/10/2024 11:45 PM EST FASTING:NO us Lacey Patel MD LAB BLOOD ORDERABLES Final Re sult [facility] [address] [facility] [address], [place] [address], [employer] [facility] [address] [place] [address] * CBC (11/10/2024 10:34 AM EST) White Blood Cell Count 7.7 3.8 - 10.8 Thousand/ uL 11/10/2024 9:43 PM EST [employer] [facility] Red Blood Cell Count 4.13 3.80 - 5.10 Million/u L 11/10/2024 9:43 PM EST [employer] Hemoglobin 12.0 11.7 - 15.5 g/dL 11/10/2024 9:43 PM EST [facility] Hematocrit 36.7 35.0 - 45.0 % 11/10/2024 9:43 PM EST [employer] [facility] MCV 88.9 80.0 - 100.0 fL 11/10/2024 9:43 PM EST [employer] MCH 29.1 27.0 - 33.0 pg 11/10/2024 9:43 PM EST [employer] MCHC 32.7 32.0 - 36.0 g/dL 11/10/2024 9:43 PM EST [employer] Comment: For adults, a slight decrease in the calculated MCHC value (in the range of 30 to 32 g/dL) is most likely not clinically significant; however, it should be interpreted with caution in correlation with other red cell parameters and the patient's clinical condition. RDW 12.8 11.0 - 15.0 % 11/10/2024 9:43 PM EST [employer] Platelet Count 285 140 - 400 Thousand/ uL 11/10/2024 9:43 PM EST [employer] MPV 9.5 7.5 - 12.5 fL 11/10/2024 9:43 PM EST [employer] Blood Structure of peripheral vein / Unknown 11/10/2024 10:34 AM EST 11/10/2024 8:23 PM EST Narrative [facility] - 11/10/2024 11:45 PM EST FASTING:NO Lacey Patel MD LAB BLOOD ORDERABLES Final Re sult Performing Organization Address City/[facility]/ZIP Co de Phone Number [facility] [address] [place] [address], [place] [address], [place] [phone] [employer] [address] [address] * Phosphorus (11/10/2024 10:34 AM EST) Phosphate 2.5 2.1 - 4.3 mg/dL 11/10/2024 11:36 PM EST [employer] Blood Structure of peripheral vein / Unknown 11/10/2024 10:34 AM EST 11/10/2024 8:47 PM EST Narrative [facility] - 11/10/2024 11:45 PM EST FASTING:NO Lacey Patel MD LAB BLOOD ORDERABLES Final Re sult [facility] [address], [place] [address], [place] [phone] [employer] [address] [place] [address] * Magnesium (11/10/2024 10:34 AM EST) Magnesium 2.0 1.5 - 2.5 mg/dL 11/10/2024 11:36 PM EST [employer] Blood Structure of peripheral vein / Unknown 11/10/2024 10:34 AM EST 11/10/2024 8:47 PM EST Narrative [facility] - 11/10/2024 11:45 PM EST FASTING:NO Lacey Patel MD LAB BLOOD ORDERABLES Final Re sult [facility] [address], [place] [address], [place] [phone] [employer] [address] [place] [address] * (ABNORMAL) Comprehensive Metabolic Panel (11/10/2024 10:34 AM EST) Glucose 92 65 - 139 mg/dL 11/10/2024 11:36 PM EST [employer] Comment: ? Non-fasting reference interval BUN 10 7 - 25 mg/dL 11/10/2024 11:36 PM [employer] Creatinine 0.73 0.60 - 1.00 mg/dL 11/10/2024 11:36 PM [employer] eGFR 85 > OR = 60 mL/min/1. 73m2 11/10/2024 11:36 PM [employer] Bun/Creatinine Ratio SEE NOTE: 6 - 22 (calc) 11/10/2024 11:36 PM [employer] Comment: ?? Not Reported: BUN and Creatinine are within ?? reference range. ? Sodium 140 135 - 146 mmol/L 11/10/2024 11:36 PM [employer] Potassium 3.3(L) 3.5 - 5.3 mmol/L 11/10/2024 11:36 PM [employer] Chloride 105 98 - 110 mmol/L 11/10/2024 11:36 PM EST [facility] Carbon Dioxide 26 20 - 32 mmol/L 11/10/2024 11:36 PM EST [facility] Calcium 9.2 8.6 - 10.4 mg/dL 11/10/2024 11:36 PM EST [facility] Protein, Total 6.2 6.1 - 8.1 g/dL 11/10/2024 11:36 PM EST [facility] Albumin 4.2 3.6 - 5.1 g/dL 11/10/2024 11:36 PM EST [facility] Globulin 2.0 1.9 - 3.7 g/dL (calc) 11/10/2024 11:36 PM EST [facility] Albumin/Globuli n Ratio 2.1 1.0 - 2.5 (calc) 11/10/2024 11:36 PM EST [facility] Bilirubin, Total 1.2 0.2 - 1.2 mg/dL 11/10/2024 11:36 PM EST [facility] Alkaline Phosphatase 62 37 - 153 U/L 11/10/2024 11:36 PM EST [facility] AST 17 10 - 35 U/L 11/10/2024 11:36 PM EST [facility] ALT 9 6 - 29 U/L 11/10/2024 11:36 PM EST [facility] Blood Structure of peripheral vein / Unknown 11/10/2024 10:34 AM EST 11/10/2024 8:47 PM EST Narrative [facility] - 11/10/2024 11:45 PM EST FASTING:NO Lacey Patel MD LAB BLOOD ORDERABLES Final Re sult [facility] [address] [facility] [address], [place] [address], [employer] [facility] [address] [place] [address] * Dexa Scan (10/31/2023) Anatomical Region Laterality Modality Other 10/31/2023 us Onbase Scan [facility] MAINTENANCE Final Resu lt from Last 3 Months or Most Recently Relevant to Health Maintenance Insurance MEDICARE [facility] Care Teams Vice President Financial Relationship Specialty Start Date End Date Abby Potter [address] [place] [address] [place] [address] PCP - General Internal Medicine 04/14/24
--- OUTSIDE RECORDS SUMMARY | 2025-01-26 08:47 | XMS_ITS | Encounter Summary ---
Author Organization [facility] Address [address] [place] [address] Care Team Providers Care Broke Beater Machine Operator Name Role Phone TariqMarleeelidia Marc Primary Care Provider [phone] Reason for Visit * Reason Onset Date Comments PAC Patient Request Call Back 06/08/2024 Encounter Details Date Type Department Care Team (Late st Contact Info) Description 06/08/2024 Telephone [facility] [address] [place] [address] Telephone Intake, Staff PAC Patient Request Call [...] for 9am. Patient can be reached at [phone]. Thank you - PAC documented in this encounter Plan of Treatment Upcoming Encounters Date Type Department Care Team (Late st Contact Info) Description 03/03/2025 9:30 AM EDT Follow-Up [facility] [address] [place] [address] Fuel Manager: Carlos Diop MD [address] [place] [address] 06/15/2025 9:00 AM EDT Clinical Support [facility] [address] [place] [address] Fuel Manager: Marlena Hurst documented as of this encounter Visit Diagnoses Not on filedocumented in this encounter Care Teams Broke Beater Machine Operator Relationship Specialty Start Date End Date Abby Potter [address] [place] [address] [place] [address] PCP - General Internal Medicine 04/14/24 documented as of this encounter
--- OUTSIDE RECORDS SUMMARY | 2025-01-26 08:47 | XMS_ITS | Clinical Summary ---
Author Organization [facility] Address [address] [place] [address] Care Team Providers Care Diabetologist Name Role Phone TariqAbby Monico Primary Care Provider [phone] Allergies Active Allergy Reactions Criticality Noted Date [...] Description 12/14/2024 9:30 AM EST Clinical Support [facility] [address] [place] [address] Vice President Of Operations: Deanna Miller LPN Age-related osteoporosis without current pathological fracture (Primary Dx) 12/01/2024 myChart Message [facility] [address] [place] [address] Vice President Of Operations: Carlos Diop MD Low potassium from Last [...] Info) Description 03/03/2025 9:30 AM EDT Follow-Up [facility] [address] [place] [address] Vice President Of Operations: Calros Diop MD [address] [place] [address] [phone] 06/15/2025 9:00 AM EDT Clinical Support [facility] [address] [place] [address] Vice President Of Operations: Marlena Hurst Health Maintenance Due Date Last [...] complete this topic Procedures * Due to [place] state law, this organization might not be [...] to Health Maintenance Results * Due to [place] state law, this organization might not be sharing negative HIV tests. * Vitamin D, 25-Hydroxy, Total, Immunoassay (11/10/2024 10:34 AM EST) Calcidiol+ercalc idiol 73 30 - 100 ng/mL 11/10/2024 11:44 PM EST [facility] Comment: Vitamin D Status ? 25-OH Vitamin D: Deficiency: ?<20 ng/mL Insufficiency: ? 20 - 29 ng/mL Optimal: ? > or = 30 ng/mL For 25-OH Vitamin D testing on patients on D2-supplementation and patients for whom quantitation of D2 and D3 fractions is required, the QuestAssureD() 25-OH VIT D, (D2,D3), LC/MS/MS is recommended: order code 46739 (patients >2yrs). See Note 1 Note 1 For additional information, please refer to http://education.Newdea/faq/PVN018 (This link is being provided for informational/ educational purposes only.) Blood Structure of peripheral vein / Unknown 11/10/2024 10:34 AM EST 11/10/2024 8:47 PM EST Narrative [facility] - 11/10/2024 11:45 PM EST FASTING:NO Lacey Patel MD LAB BLOOD ORDERABLES Final Re sult [facility] [address] [facility] 3rd Floor, [place] [address], [employer] [facility] [address] [place] [address] * CBC (11/10/2024 10:34 AM EST) Pathologist [facility] White Blood Cell Count 7.7 3.8 - 10.8 Thousand/ uL 11/10/2024 9:43 PM EST [facility] Red Blood Cell Count 4.13 3.80 - 5.10 Million/u L 11/10/2024 9:43 PM EST [facility] Hemoglobin 12.0 11.7 - 15.5 g/dL 11/10/2024 9:43 PM EST [facility] Hematocrit 36.7 35.0 - 45.0 % 11/10/2024 9:43 PM EST [facility] MCV 88.9 80.0 - 100.0 fL 11/10/2024 9:43 PM EST [facility] MCH 29.1 27.0 - 33.0 pg 11/10/2024 9:43 PM EST [facility] MCHC 32.7 32.0 - 36.0 g/dL 11/10/2024 9:43 PM EST [facility] Comment: For adults, a slight decrease in the calculated MCHC value (in the range of 30 to 32 g/dL) is most likely not clinically significant; however, it should be interpreted with caution in correlation with other red cell parameters and the patient's clinical condition. RDW 12.8 11.0 - 15.0 % 11/10/2024 9:43 PM EST [facility] Platelet Count 285 140 - 400 Thousand/ uL 11/10/2024 9:43 PM EST [facility] MPV 9.5 7.5 - 12.5 fL 11/10/2024 9:43 PM EST [facility] Blood Structure of peripheral vein / Unknown 11/10/2024 10:34 AM EST 11/10/2024 8:23 PM EST Narrative [facility] - 11/10/2024 11:45 PM EST FASTING:NO us Lacey Patel MD LAB BLOOD ORDERABLES Final Re sult Performing Organization Address City/[facility]/ZIP Co de Phone Number [facility] [address], [place] [address], [place] [phone] [email or web address] [address] [address] * Phosphorus (11/10/2024 10:34 AM EST) Phosphate 2.5 2.1 - 4.3 mg/dL 11/10/2024 11:36 PM EST [email or web address] [facility] Blood Structure of peripheral vein / Unknown 11/10/2024 10:34 AM EST 11/10/2024 8:47 PM EST Narrative [facility] - 11/10/2024 11:45 PM EST FASTING:NO us Lacey Patel MD LAB BLOOD ORDERABLES Final Re sult Performing Organization Address [facility] Co de Phone Number [facility] [address], [place] [address], [place] [phone] [email or web address] [address] [address] * Magnesium (11/10/2024 10:34 AM EST) Magnesium 2.0 1.5 - 2.5 mg/dL 11/10/2024 11:36 PM EST [email or web address] [facility] Blood Structure of peripheral vein / Unknown 11/10/2024 10:34 AM EST 11/10/2024 8:47 PM EST Narrative [facility] - 11/10/2024 11:45 PM EST FASTING:NO us Lacey Patel MD LAB BLOOD ORDERABLES Final Re sult [facility] [address] [facility] 3rd Floor, [place] [address], [employer] [facility] [address] [place] [address] * (ABNORMAL) Comprehensive Metabolic Panel (11/10/2024 10:34 AM EST) Glucose 92 65 - 139 mg/dL 11/10/2024 11:36 PM EST [employer] [facility] Comment: ? Non-fasting reference interval BUN 10 7 - 25 mg/dL 11/10/2024 11:36 PM EST [facility] Creatinine 0.73 0.60 - 1.00 mg/dL 11/10/2024 11:36 PM EST [facility] eGFR 85 > OR = 60 mL/min/1. 73m2 11/10/2024 11:36 PM [employer] Bun/Creatinine Ratio SEE NOTE: 6 - 22 (calc) 11/10/2024 11:36 PM [employer] Comment: ?? Not Reported: BUN and Creatinine are within ?? reference range. ? Sodium 140 135 - 146 mmol/L 11/10/2024 11:36 PM EST [facility] Potassium 3.3(L) 3.5 - 5.3 mmol/L 11/10/2024 11:36 PM [employer] [place] Chloride 105 98 - 110 mmol/L 11/10/2024 11:36 PM [employer] Carbon Dioxide 26 20 - 32 mmol/L 11/10/2024 11:36 PM [employer] Calcium 9.2 8.6 - 10.4 mg/dL 11/10/2024 11:36 PM [employer] Protein, Total 6.2 6.1 - 8.1 g/dL 11/10/2024 11:36 PM EST [facility] Albumin 4.2 3.6 - 5.1 g/dL 11/10/2024 11:36 PM [employer] Globulin 2.0 1.9 - 3.7 g/dL (calc) 11/10/2024 11:36 PM [employer] Albumin/Globuli n Ratio 2.1 1.0 - 2.5 (calc) 11/10/2024 11:36 PM EST [email or web address] Bilirubin, Total 1.2 0.2 - 1.2 mg/dL 11/10/2024 11:36 PM EST [email or web address] [facility] Alkaline Phosphatase 62 37 - 153 U/L 11/10/2024 11:36 PM EST [employer] [facility] AST 17 10 - 35 U/L 11/10/2024 11:36 PM EST [email or web address] [facility] ALT 9 6 - 29 U/L 11/10/2024 11:36 PM EST [email or web address] [facility] Blood Structure of peripheral vein / Unknown 11/10/2024 10:34 AM EST 11/10/2024 8:47 PM EST Narrative [facility] - 11/10/2024 11:45 PM EST FASTING:NO us Lacey Patel MD LAB BLOOD ORDERABLES Final Re sult [facility] [address] [facility] 3rd Floor, [place] [address], [place] [phone] [employer] [facility] [address] [place] [address] * Dexa Scan (10/31/2023) Anatomical Region Laterality Modality Other 10/31/2023 us Onbase Scan [facility] Final Resu lt from Last 3 Months or Most Recently Relevant to Health Maintenance Insurance MEDICARE [facility] Care Teams Diabetologist Relationship Specialty Start Date End Date Abby oPtter [address] [place] [address] [place] [address] PCP - General Internal Medicine 04/14/24
--- OUTSIDE RECORDS SUMMARY | 2025-01-26 08:48 | XMS_ITS ---
Author Organization [facility] Address [address] [place] [address] Care Team Providers Care Rock Mason Apprentice Name Role Phone Abby Potter Primary Care Provider Charity Castro Unavailable [phone] Allergies Allergen (clinical drug ingredient) Drug/Non Drug [...] Calcium Not-Taking Flax Seed Oil Not-Hardy foster Bucklin 3 500 400 mg 1 capsule Orally Twice a day Not-Taking Pazeo Not-Taking Doxycycline Not-Taki samuel Crestor 10 mg Not-Hardy foster Atenolol 25 MG 1 tablet Orally Once a day Not-Taking Nystatin 478262 UNIT Orally Not-Taking Metoprolol Succinate ER Not-Taking [...] Ordered Date Performed Result Body Sit e 17872-JNYKSSS NAIL, 6 OR MORE 12/09/2024 N/A 68285-Afrcljro Plate 12/09/2024 N/A Encounters Encounter Location Date Provider Diagnosis [facility] [place] [address] [place] [address] 12/09/2024 Charity Black Tinea unguium B35.1 ; [...] Treatment Pending Test Test Name Order Date 15479-HAPPJEB NAIL, 6 OR MORE 12/09/2024 47306-Xlpbadrm Plate 12/09/2024 Next Appt Details Follow Up: 2 Weeks,prn, Reas on: Provider Name:Charity Marquez , 03/07/2025 09:15:00 AM, [address] [place] [address], [phone], Procedure Notes * Category Sub-Category Detail [...] Motrin was recommended for pain or discomfort (75916) Anesthesia was accomplished TOP ICALLY with Lidocaine [...] use of a nail nipper and/or dremel-type lens grinder and polisher, to a more viable healthy nail plate [...] to maintain effectiveness in symptomatic relief - 08612 Progress Notes * Adelina TAVAREZ ADOB:[birth year] (79 yo F)Acc No.[id number]:12/09/2024 Progress Note Patient:?MELANIEAdelina A Provider:?Charity Marquez DPM :1945???Age:79 Y???Sex:Female D ate:12/09/2024 Address:[address] [place], [place] [address] Pcp:Abby Potter Subjective: * Chief Complaints: * [...] surgery 02/2019endoscopy 11/2019 * Hospitalization/Major Diagno stic Procedure:?[facility] For Pressure on chest - it was acid reflux 2018Stroke 08/2021[facility]- Broken Wrist - right 01/16/2023 * [...] yes, walking. ?Marital status: . 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 * Medications:?TakingCalcium M ultivitamin Atorvastatin Calcium 20 [...] times a weekMetoprolol Succinate ER Pazeo Nystatin 249404 UNIT Tablet Orally Crestor 10 mg Atenolol 25 MG Tablet 1 tablet Orally Once a day Doxycycline Bucklin 3 500 400 mg Capsule 1 capsule [...] Metoprolol Succinate ER Not-Taking/PRN Pazeo Not-Taking/PRN Nystatin 765116 UNIT Tablet Orally Not-Taking/PRN Crestor 10 mg Not-Taking/PRN Atenolol 25 MG Tablet 1 tablet Orally Once a day Not-Taking/PRN Doxycycline Not-Taking/PRN Bucklin 3 500 400 mg Capsule 1 capsule [...] - M79.675??? Plan: * Treatment: 2.?Tinea unguium?Procedure: 98239-LMFEVAB NAIL, 6 OR MORE * Procedures:?Debride Nail [...] use of a nail nipper and/or dremel-type lens grinder and polisher, to a more viable healthy nail plate [...] to maintain effectiveness in symptomatic relief - 83521.?Nail Avulsion:?Location?Lateral nail border, T5.?Anesthesia?was accomplished TOPICALLY with [...] Motrin was recommended for pain or discomfort (35589).? * Procedure Codes:?38896 DEBRI DE NAIL, 6 OR MORE, Modifiers: XS 48454 Avulsion Plate, Modifiers: T5 * Preventive Medicine:? ??Screening/Special Tests:?Fall Risk?Screening:?No falls in the past year ?FALLS: Screening for Future Fall Risk?Have you had any falls with injury in the past year??No * Follow Up:?2 Weeks,prn * Images: * Sign off status: Completed true * Provider:?Charity Marquez DPM Date:?2024 Generated for Carmelina baker/Quincy/Jose on:?01/26/2025 08:48 AM EDT History and Physical Notes * [...]
--- OUTSIDE RECORDS SUMMARY | 2025-01-26 08:48 | XMS_ITS ---
Author Organization [facility] Address [address] [place] [address] Care Team Providers Care Slate Handler Name Role Phone Abby Potter MD Primary Care Provider Nadine Tai Unavailable [phone] REASON FOR VISIT rethinking colonoscopy Encounters Encounter Location Date Provider Diagnosis [facility] [address] [place] [address] 08/26/2024 Nadine Braga Plan Of Treatment No Information Progress Notes * TIMMY NAVARRODOB:1945 (78 yo F)Acc No.[id number]:08/26/2024 Patient:?MELANIETIMMY :1945???Age:78 Y???Sex:Female Address:[address] [place], [place] [address] [address] * true * Date:? Generated for Carmelina baker/Quincy/eTransmitting on:?01/26/2025 08:47 AM EDT
--- OUTSIDE RECORDS SUMMARY | 2025-01-26 08:48 | XMS_ITS | Encounter Summary ---
Author Organization [facility] Address [address] [place] [address] Care Team Providers Care Puffer Tender Name Role Phone aTriqAbby Monico Primary Care Provider [phone] Encounter Details Date Type Department Care Team (Late st Contact Info) Description 12/01/2024 myChart Message [facility] [address] [place] [address] Inspector Heating And Refrigeration: Carlos Diop MD [address] [place] [address] [phone] Low potassium Social History Tobacco Use Types [...] Description 03/03/2025 9:30 AM EDT Follow-Up [facility] [address] [place] [address] Inspector Heating And Refrigeration: Carlos Diop MD [address] [place] [address] [phone] 06/15/2025 9:00 AM EDT Clinical Support [facility] [address] [place] [address] Inspector Heating And Refrigeration: Marlena Hurst documented as of this encounter Visit Diagnoses Not on filedocumented in this encounter Care Teams Puffer Tender Relationship Specialty Start Date End Date Abby Potter [address] [place] [address] [place] [address] PCP - General Internal Medicine 04/14/24 documented as of this encounter
--- OUTSIDE RECORDS SUMMARY | 2025-01-26 08:48 | XMS_ITS ---
Author Organization [facility] Address [address] [place] [address] Care Team Providers Care Furnace Unloader Name Role Phone Po Abby DENNEY Primary Care Provider Nadine Tai Unavailable [phone] Allergies Allergen (clinical drug ingredient) Drug/Non Drug Allergy documented on EMR Reaction Allergy Type Onset Date Status esomeprazole Nexium Unknown Drug Allergy Acti ve dicyclomine Dicyclomine HCl Unknown Drug Allergy Active Codeine Phosphate Unknown Drug Allergy Active Biaxin Unknown Drug Allergy Active Vicodin Unknown Drug Allergy Active Ultracet Unknown Drug Allergy Active tetracycline Tetracycline HCl Unknown Drug Allergy Active Sulfacet-R Unknown Drug Allergy Active acetaminophen / oxycodone Percocet Unknown Drug Allergy Active penicillamine Penicillamine Unknown Drug Allergy Active oxycodone Oxycodone HCl Unknown Drug Allergy Act farzana REASON FOR VISIT Patient presents today for [...] 08/25/2024 Encounters Encounter Location Date Provider Diagnosis [facility] [address] [place] [address] 08/25/2024 Nadine Braga Gastroesophageal ref lux disease, [...] I did recommend that she try some hdnd-mtg-vyzooeq antacid such as TUMS or Pepcid if [...] I did recommend that she try some leqs-ivu-jzcsavf antacid such as TUMS or Pepcid if [...] I did recommend that she try some leur-iap-stjnvvb antacid such as TUMS or Pepcid if [...] Up: prn, Reason: Progress Notes * ADELINA NAVRARODOB:1945 (78 yo F)Acc No.[id number]:08/25/2024 Progress Notes Patient:?ADELINA NAVARRO Provider:?Nadine Braga MD :1945???Age:78 Y???Sex:Female D ate:08/25/2024 Address:[address] [place], [place] [address] Pcp:Abby Potter MD Subjective: * Chief Complaints: * ???Patient presents today fo r constipation * HPI: ???incontinence:? I saw Adelina in consultation today in [...] History:?Sinus surg adelso Bladder suspension surgery C-spine--at [facility] 02/15/2018 * Hospitalization/Major Diagno stic Procedure:?No [...] I did recommend that she try some xeow-clg-tnfvwbx antacid such as TUMS or Pepcid if [...] Patient decision) * Procedure Codes:?1036F TOBAC CO NON-KEYGK5194 BP SCR NOT PRFRM REC REASON NOS [...] MD Date:? 024 Generated for Carmelina baker/Quincy/Jose on:?01/26/2025 08:47 AM EDT History and Physical Notes * [...]
--- OUTSIDE RECORDS SUMMARY | 2025-01-26 08:49 | XMS_ITS ---
Author Organization [facility] Address [address] [place] [address] Care Team Providers Care Natural Resources Specialist Name Role Phone Abby Potter Primary Care Provider Charity Castro [phone] REASON FOR VISIT 2/6 appt Encounters Encounter Location Date Provider Diagnosis [address] [address] 12/07/2024 Charity Marquez Plan Of Treatment Next Appt Details Provider Name:Charity Marquez , 03/07/2025 09:15:00 AM, [address] [place], [address], Progress Notes * Adelina TAVAREZ ADOB:[birth year] (79 yo F)Acc No.[id number]:12/07/2024 Patient:?Adelina TAVAREZ :1945???Age:79 Y???Sex:Female Address:[address] [place] [address] [place] [address] * true * Date:? Generated for Printi ng/Facarolynng/eTransmitting on:?01/26/2025 08:48 AM EDT
--- OUTSIDE RECORDS SUMMARY | 2025-01-26 08:49 | XMS_ITS ---
Author Organization [facility] Address [address] [place] [address] Care Team Providers Care Software Test Manager Name Role Phone Abby Potter Primary Care Provider Charity Castro Unavailable [phone] Raisa Bach [phone] REASON FOR VISIT switched to Dr Marquez Encounters Encounter Location Date Provider Diagnosis [address] [address] 12/09/2024 Raisa Bach Plan Of Treatment Next Appt Details Provider Name:Charity Rohan Jimmy , 03/07/2025 09:15:00 AM, [address] [place], [address], Progress Notes * Adelina TAVAREZ ADOB:[birth year] (79 yo F)Acc No.[id number]:12/09/2024 Progress Note Patient:?Adelina TAVAREZ Provider:?Raisa Bach DPM :1945???Age:79 Y???Sex:Female D ate:12/09/2024 Address:[address] [place] [address] [place] Pcp:Abby Potter Subjective: * Chief Complaints: * [...] DPM Date:?0 12/09/2024 Generated for Carmelina baker/Quincy/Jose on:?01/26/2025 08:48 AM EDT
== END 2025-01-26 09:08 | disposition home or self-care (01) ==
LOC: HO.HMCH 08:24
PROVIDERS: PCP Internal Medicine; Visit Provider Internal Medicine
DX: N64.4 Mastodynia (principal)

== ENCOUNTER 2025-01-26 08:24 | Outpatient (REF) | payer MEDICARE, OTHER, SELFPAY ==
--- NOTE | ~2025-01-26 | US_ITS ---
EXAMINATION: MM DIAGNOSTIC DIGITAL BREAST TOMOSYNTHESIS, BILATERAL Bilateral Limited ultrasound. CLINICAL INFORMATION: Bilateral breast pain. Patient had a normal bilateral screening mammogram December 01, 2024. COMPARISON: Mammography: [facility] on PACS. TECHNIQUE: Digital breast tomosynthesis is performed in both the craniocaudal and mediolateral oblique views along with computer-aided detection (CAD). Synthesized 2D images are generated from the tomosynthesis. FINDINGS: There are scattered areas of fibroglandular density (ACR BI-RADS breast composition Category b). Single left cc mammogram demonstrates no suspicious masses calcifications or other abnormal findings. The previously seen asymmetry medially on CC view does not persist likely represented overlapping breast tissue. Targeted color Doppler ultrasound scanning in the left breast upper inner quadrant upper outer quadrant demonstrates normal fibronodular breast tissue. There is no sonographic abnormality. Targeted color Doppler ultrasound scanning in the right breast upper inner quadrant upper outer quadrant demonstrates normal fibroglandular breast tissue. There is no sonographic abnormality. US/US breast BI limited mamm only IMPRESSION: No sonographic abnormality to account for the patient's bilateral breast pain. Recent screening mammogram December 01, 2024 was normal. Recommend clinical evaluation and follow-up. ASSESSMENT: BI-RADS BI-RADS 1 - Negative RECOMMENDATION: 1 year F/U Results were provided to the patient at time of visit by the technologist. This patient's information was entered into a reminder system with a target due date for their next mammogram. Electronically signed by: Chelsea Castro DO 01/27/2025 10:52 AM EDT
== END 2025-01-26 08:25 | disposition home or self-care (01) ==
LOC: CF 08:24
PROVIDERS: PCP Internal Medicine; Visit Provider Internal Medicine
DX: N64.4 Mastodynia (principal)
CPT/HCPCS: 76642; 77061; 77065; 99212

== ENCOUNTER → 2025-01-26 15:08 | Outpatient (BNV) | payer MEDICARE, OTHER, SELFPAY | PROVIDERS: PCP Internal Medicine; Visit Provider Internal Medicine | DX: N64.4 Mastodynia (principal) | CPT/HCPCS: 76642; 77065; G0279 ==

== ENCOUNTER 2025-02-02 11:34 | Emergency (ER) | payer MEDICARE, OTHER, SELFPAY ==
--- NOTE | ~2025-02-02 | MR_ITS ---
EXAMINATION: MR BRAIN WITHOUT IV CONTRAST HISTORY: ? CVA left hand numbness TECHNIQUE: Sagittal T1, and axial T1, FLAIR, T2, gradient echo, and diffusion weighted MR images of the brain were obtained. COMPARISON: Comparison is made with the prior examination dated 08/03/2021. FINDINGS: There is diffuse prominence of the ventricular system and cortical sulci, consistent with atrophy. Periventricular and subcortical white matter hyperintensities are noted on the FLAIR and T2-weighted images which are nonspecific, but often seen in the setting of small vessel ischemic disease. There is no mass effect or midline shift. No intra or extra-axial fluid collections are identified. There are no foci of restricted diffusion. Normal vascular flow voids are noted in the basilar and carotid arteries. There is partial opacification of the bilateral anterior ethmoid sinuses. There is mucosal thickening in the bilateral frontal and maxillary sinuses. MR/MR head/brain wo con IMPRESSION: No acute intracranial abnormality. Electronically signed by: Augie Jose MD 02/02/2025 03:28 PM EDT
--- NOTE | ~2025-02-02 | CT_ITS ---
EXAMINATION: CT ANGIOGRAM HEAD AND NECK CLINICAL INFORMATION: Left hand numbness. COMPARISON: 08/03/2021. TECHNIQUE: Noncontrast axial imaging of the head was performed. This was followed by test bolus sequences and head and neck intravenous bolus administration 70 mL of Omnipaque 350. Helical imaging was performed in the axial plane from the aortic arch to the skull vertex. The data was processed at the mri technologist's workstation for generation of MIP sequences. Angled MIPs and volume rendered reformatted images were also generated at an offline 3D workstation. Stenoses are assessed in accordance with NASCET criteria unless otherwise indicated. This CT examination was performed using dose optimization techniques as appropriate, variously including the following: *Automated exposure control *Adjustment of mA and/or kV according to patient size (this includes techniques or standardized protocols for targeted exams where dose is matched to indication/reason for exam; i.e. extremities or head) *Use of iterative reconstruction technique FINDINGS: NONCONTRAST HEAD CT: There is no evidence of intracranial hemorrhage or extra-axial fluid collection. There is no mass effect, or edema. No CT evidence of acute territorial infarct. Ventricles, sulci, and cisterns are normal in size and configuration for patient age. No hydrocephalus. No midline shift. Negative hyperdense MCA sign. Negative insular ribbon sign. Mild patchy supratentorial white matter hypodensities in keeping with mild small vessel ischemic changes. Globes and orbital contents image normally. Bilateral lens replacements. No extracranial soft tissue abnormalities. There has been prior sinonasal surgery. Polypoid mucosal thickening along the nasal septum, and in the anterior ethmoid air cells obstructing the frontal recesses. The paranasal sinuses, mastoid air cells, and tympanic cavities are normally aerated. No suspicious bony abnormalities. Severe degenerative arthritis right TM joint. NECK CTA: -AORTIC ARCH: Normal in caliber. Mild atheromatous calcification. Three-vessel branching pattern. -GREAT VESSEL ORIGINS: Widely patent. No stenosis. -RIGHT COMMON CAROTID ARTERY: Normal in course and caliber to the level of the bifurcation. -CERVICAL RIGHT INTERNAL CAROTID ARTERY: Mild calcific atherosclerotic disease of the carotid bulb and proximal internal carotid artery without flow-limiting stenosis. -LEFT COMMON CAROTID ARTERY: Normal in course and caliber to the level of the bifurcation. -CERVICAL LEFT INTERNAL CAROTID ARTERY: Mild calcific atherosclerotic disease of the carotid bulb and proximal internal carotid artery without flow-limiting stenosis. -CERVICAL RIGHT VERTEBRAL ARTERY: Codominant. Normal origin. Normal in course and caliber into the skull base. -CERVICAL LEFT VERTEBRAL ARTERY: Codominant. Normal origin. Normal in course and caliber into the skull base. OTHER, SOFT TISSUES: -No lymphadenopathy or mass. No abnormal fluid collection or soft tissue swelling. -Normal thyroid. -Imaged superior mediastinal structures normal. -Imaged lung apices clear. There is mild centrilobular emphysema. CTA OF THE BRAIN: -INTRACRANIAL INTERNAL CAROTID ARTERIES: Calcific atherosclerotic disease of the intracranial internal carotid arteries without occlusion or flow-limiting stenosis. -RIGHT ANTERIOR CEREBRAL ARTERY: Normal A1 segment.. Normal arborization of the distal segments. -LEFT ANTERIOR CEREBRAL ARTERY: Normal A1 segment.. Normal arborization of the distal segments. -ANTERIOR COMMUNICATING ARTERY: Normal. -RIGHT MIDDLE CEREBRAL ARTERY: Normal M1 segment of the MCA without focal stenosis or occlusion. Normal arborization of the distal segments. -LEFT MIDDLE CEREBRAL ARTERY: Normal M1 segment of the MCA without focal stenosis or occlusion. Normal arborization of the distal segments. -RIGHT VERTEBRAL ARTERY V4: Normal in course and caliber. Normal PICA branch. -LEFT VERTEBRAL ARTERY V4: Normal in course and caliber. Normal PICA branch. -BASILAR ARTERY: Normal without focal stenosis or occlusion. Normal appearance of the proximal superior cerebellar arteries. Normal basilar tip. -RIGHT POSTERIOR CEREBRAL ARTERY: Normal P1 segment. Normal opacification of the distal MANAGER UNION segments. -LEFT POSTERIOR CEREBRAL ARTERY: Normal P1 segment. Normal opacification of the distal MANAGER UNION segments. -POSTERIOR COMMUNICATING ARTERIES: Diminutive and not well seen bilaterally. Normal opacification of the superior sagittal, straight, transverse, and sigmoid sinuses. No venous thrombosis. No space-occupying hemorrhage or definite evolving infarct. CT/CT angio head neck IMPRESSION: NONCONTRAST HEAD CT: 1. No acute intracranial abnormality. 2. Mild changes of small vessel ischemia. 3. Severe degenerative arthritis right TM joint. CTA NECK: 1. No evidence of significant stenosis, occlusion, or dissection of the major cervical arterial vasculature. 2. Mild calcific plaque at the carotid bulbs bilaterally. CTA HEAD: 1. No evidence of major arterial occlusion, significant stenosis, dissection, or aneurysm. 2. Patent major cortical and dural venous sinuses. 3. No space-occupying hemorrhage or definite evolving infarct. Electronically signed by: Jeffrey Ceja MD 02/02/2025 01:21 PM EDT RP
[2025-02-02 11:50] VITALS: BP 172/55; PULSE 71; RESP 16; TEMP 36.6; O2SAT 99; BMI 20.9
[2025-02-02 12:00] VITALS: BP 165/59; PULSE 74; RESP 14; O2SAT 99
--- NOTE | 2025-02-02 12:08 | ECG_ITS ---
Test Reason : R/O STROKE Blood Pressure : */* mmHG Vent. Rate : 62 BPM Atrial Rate : 62 BPM P-R Int : 160 ms QRS Dur : 88 ms QT Int : 444 ms P-R-T Axes : 70 -25 -13 degrees QTcB Int : 450 ms Normal sinus rhythm Nonspecific ST and T wave abnormality Abnormal ECG When compared with ECG of 29-Apr-2024 10:28, No significant change was found Referred By: Ramone Cunha Electronically Signed By: JOSELYN YUAN
--- NOTE | 2025-02-02 12:09 | PC.NURSE ---
Patient presents from the car and had sudden onset left wrist /hand numbness and tingling. Numbness and tingling has improved since arrival. Alert and oriented. Speech clear. No droop. Tongue midline. Good hand grasps. No drift noted to all four extremities. Sensation intact. desk monitor applied and NSR noted. Lungs clear bilat. Respirations even and non-labored. Abdomen soft. non-tender with positive bowel sounds. Positive pedal pulses with no edema.
--- NOTE | 2025-02-02 12:18 | ED.GENADULT ---
HPI - General Adult General Chief complaint: General Medical Stated complaint: L Hand Numbness Time Seen by Provider: 02/02/25 11:59 Source: patient Mode of arrival: ambulatory Limitations: no limitations History of Present Illness HPI narrative: This is a alvina 79 years old the patient presented to the emergency department with a complaint of left hand numbness from the wrist down. Symptoms lasts for about half an hour symptoms are now gone. She has a history of CVA in the past she is status post tPA in 2020 she is anticoagulated with apixaban 5 mg b.i.d.. She is fully ambulatory to the emergency department today she is here with the Onset (ago): hour(s) (1) Location: upper extremity (left hand ) Severity: mild Quality: other (numbness) Pain Consistency: now resolved Relieving factors: none Exacerbating factors: none Treatments prior to arrival: none Related Data Home Medications ?Medication ?Instructions ?Recorded ?Confirmed nebulizers 02/26/23 01/17/25 amoxicillin 500 mg capsule 500 mg PO TID 01/26/25 Previous Rx's ?Medication ?Instructions ?Recorded lidocaine 4 % topical patch 1 patch transdermal DAILY #30 ea 08/06/21 (Lidocaine Pain Relief) flash glucose scanning reader #1 ea 12/18/21 (FreeStyle Waldemar 14 Day [place]) flash glucose sensor (doubleTwistStyle #2 ea 12/18/21 Waldemar 14 Day Sensor kit) tramadol 50 mg tablet 50 mg PO BID PRN pain 21 days #42 01/24/23 tabs estradiol 0.01% (0.1 mg/gram) See Rx Instructions vaginal DAILY 09/02/23 vaginal cream (Estrace) #42.5 grams Eliquis 5 mg tablet (apixaban) 5 mg PO BID 90 days #180 tabs 01/19/24 insulin syringe-needle U-100 1 mL #100 ea 02/04/24 32 gauge x 03/18 albuterol sulfate 90 mcg/actuation 2 inh inhalation Q6H PRN shortness 02/25/24 aerosol inhaler of breath or wheezing 30 days #18 grams loratadine 10 mg tablet 10 mg PO DAILY PRN allergy 05/13/24 symptoms #30 tabs promethazine 12.5 mg tablet 12.5 mg PO Q6H PRN nausea and 07/23/24 vomiting #20 tabs polyethylene glycol 3350 17 17 g PO DAILY 30 days #510 grams 08/27/24 gram/dose oral powder (Miralax) Flonase Allergy Relief 50 2 spray intranasal DAILY #15.8 mL 09/02/24 mcg/actuation nasal spray,suspension (fluticasone propionate) Lexapro 10 mg tablet (escitalopram 10 mg PO DAILY #30 tabs 12/10/24 oxalate) sennosides 8.6 mg-docusate sodium 2 tab-cap (2 x 8.6-50 mg) PO 12/27/24 50 mg tablet (Senna with Docusate BEDTIME 30 days #60 tabs Sodium) Xanax 0.5 mg tablet (alprazolam) 0.5 mg PO BEDTIME PRN sleep #30 01/07/25 tabs cholecalciferol (vitamin D3) 50 See Rx Instructions .Route 01/19/25 mcg (2,000 unit) capsule .COMPLEX #90 caps atorvastatin 40 mg tablet 40 mg PO DAILY #90 tabs 01/24/25 Allergies Allergy/AdvReac Type Severity Reaction Status Date / Time naproxen [From NAPROSYN] Allergy Severe sensitivity Verified 02/02/25 11:54 niacin Allergy Severe Rash Verified 02/02/25 11:54 [From NIASPAN EXTENDED-RELEASE] clarithromycin [From BIAXIN] Allergy Mild sensitivity Verified 02/02/25 11:54 codeine [CODEINE] Allergy Mild Itching Verified 02/02/25 11:54 esomeprazole [From Nexium] Allergy Mild Hives Verified 02/02/25 11:54 fluconazole [From DIFLUCAN] Allergy Mild sensitivity Verified 02/02/25 11:54 gatifloxacin [From TEQUIN] Allergy Mild sensitivity Verified 02/02/25 11:54 hydrocodone [From Vicodin] Allergy Mild Rash Verified 02/02/25 11:54 levofloxacin [From Levaquin] Allergy Mild sensitivity Verified 02/02/25 11:54 oxycodone [From Percocet] Allergy Mild Itching Verified 02/02/25 11:54 quinidine [QUINIDINE] Allergy Mild sensitivity Verified 02/02/25 11:54 Sulfa (Sulfonamide Allergy Mild Rash Verified 02/02/25 11:54 Antibiotics) [SULFA (SULFONAMIDE ANTIBIOTICS)] terfenadine [From SELDANE] Allergy Mild sensitivity Verified 02/02/25 11:54 tetracycline [TETRACYCLINE] Allergy Mild sensitivity Verified 02/02/25 11:54 cefaclor [From CECLOR] AdvReac Severe Unknown Verified 02/02/25 11:54 abaloparatide [From Tymlos] AdvReac Intermediate Dizziness Verified 02/02/25 11:54 cefdinir AdvReac Intermediate Stomach Verified 02/02/25 11:54 Upset montelukast [From Singulair] AdvReac Mild Headache Verified 02/02/25 11:54 topiramate [From TOPAMAX] AdvReac Mild Stomach Verified 02/02/25 11:54 Upset Review of Systems Constitutional: Constitutional: Reports no additional constitutional complaints Cardiovascular: Cardiovascular: Reports no additional cardiovascular complaints Respiratory: Respiratory: Reports no additional respiratory complaints [facility] Past Medical History Attestation statement: The following information was validated with the patient. [facility] Narrative: History of CVA Medical History Sinus congestion Cough Weight loss Polyarthralgia Fall Shoulder pain, right Back pain Nausea Palpitation Headache, post-traumatic, acute Scalp irritation Anemia Encounter for vitamin deficiency screening Renal cyst Dense breast Breast cancer screening by mammogram Acute bronchitis Ocular migraine Hyperlipidemia History of CVA (cerebrovascular accident) (~2020) Tubular adenoma of colon (~2005) SERG (obstructive sleep apnea) Nasal vestibulitis Degeneration, intervertebral disc, cervical Dry eye PONV (postoperative nausea and vomiting) Arthritis of neck Cerebral microvascular disease Atherosclerotic cardiovascular disease Precordial chest pain URI (upper respiratory infection) Overactive bladder Microscopic hematuria Urinary urgency Osteoporosis (~1999) Mycobacterial disease GERD (gastroesophageal reflux disease) Pulmonary nodules COPD (chronic obstructive pulmonary disease) Surgical History History of fusion of cervical spine History of sinus surgery History of colonoscopy History of esophagogastroduodenoscopy (EGD) History of bladder suspension procedure Family History Family History Son No problems noted. Social History Social History Household Members: Spouse Housing: Condominium Do you presently have visiting nurse or other home services: No Alcohol intake: never Patient Tobacco Use Status: Never used Tobacco Tobacco use type: Cigarette Years Smoked: parent and smoker e-Cigarette/Vaping Use: Never Used Second Hand Smoke Exposure: Yes Advance Directives: Yes Advance Directives on File: Yes Advance Directives Date on File: 08/16/20 Do you have a plan to hurt others: No Plan service: No Current occupational status: retired Current occupation: right hand Cognitive needs: No Hearing needs: Yes (hearing aides) Vision needs: Yes (Glasses) Physical Exam ED Vital Signs: Vital Signs - 24 hr 02/02/25 11:50 02/02/25 12:00 02/02/25 16:00 Temperature 98 F 97.0 F Pulse Rate 71 74 66 Respiratory Rate 16 14 18 Blood Pressure 172/55 H 165/59 H 141/55 H Pulse Oximetry 99 99 97 Oxygen Delivery Method Room Air Room Air Room Air 02/02/25 16:12 Temperature Pulse Rate 64 Respiratory Rate 18 Blood Pressure 134/56 L Pulse Oximetry 97 Oxygen Delivery Method Room Air BMI result Body Mass Index 20.9 She looks well she is not toxic-appearing Const General: cooperative, comfortable and no acute distress Nutritional Appearance: average body habitus Orientation/consciousness: patient oriented x3 Limitations: no limitations HENMT Head: Yes normal to inspection Ears: hearing grossly normal bilaterally General nose exam: Normal external nose present Face and sinus: Yes normal facial exam Mouth: Normal oral and palatal mucosa present Neck Neck: Yes normal visual inspection and Yes full ROM Resp Effort & Inspection: normal respiratory effort Auscultation: clear to auscultation bilaterally Cardio Rate: regular rate Rhythm: regular rhythm GI Inspection: Yes normal to inspection Palpation (GI): Soft to palpation, not firm and nontender Skin General skin exam: no rashes or lesions noted and elasticity normal Lesions: no lesions Rashes: no rashes Neuro Other: Strength is 5/5; no deficit in sensation gait normal; cranial nerve 2-12 normal, at this time stroke scale is 0 General: patient oriented x3 Course Reevaluation(s) Reevaluation #1: CTA Head and neck negative ,will do MRI brain Time: 13:30 Reevaluation #2: MRI brain negative anticipate discharge case was reviewed with the stroke team Mone who spoke with the neurologist Time: 16:13 Medications Administered Discontinued Medications Generic Name Dose Route Start Last Admin Trade Name Freq PRN Reason Stop Dose Admin Iohexol 100 ml 02/02/25 12:40 02/02/25 12:41 Iohexol 350 Mg/Ml 100 Ml Infus..Btl IV 02/02/25 12:41 70 ml ONCE ONE Administration Medical Decision Making Medical Decision Making [facility] Narrative: Patient presented with transient episode of numbness in the hand which now resolved we will get imaging Differential Diagnosis Differential Diagnoses: The differential diagnosis associated with the presentation includes CVA/peripheral neuropathy Admission/Observation Consideration of admission/observation: Escalation of care including admission/observation considered Consult Healthcare Provider Management of the patient was discussed with: Insurance Defense Attorney Stroke team Lab Data [facility] Lab Attestation statement: I reviewed the patient's lab results. 02/02/25 12:26 02/02/25 12:26 Labs: Lab Results 02/02/25 Range/Units 12:26 WBC 8.1 (4.8-10.8) X10*3/uL RBC 4.05 L (4.20-5.50) X10*6/uL Hgb 12.1 (12.0-16.0) g/dl Hct 36.0 L (37.0-47.0) % MCV 88.9 (80.0-98.0) fL MCH 29.9 (27.0-33.0) pg MCHC 33.6 (31.0-35.0) g/dl RDW 13.4 (11.0-16.0) % Plt Count 225 (160-400) X10*3/uL MPV 9.4 (9.4-12.3) fL Immature Gran % (Auto) 0.2 (0.0-0.4) % Neut % (Auto) 60.2 (45-73) % Lymph % (Auto) 26.9 (20-40) % [place] % (Auto) 9.7 (2-11) % Eos % (Auto) 2.5 (0-4) % Baso % (Auto) 0.5 (0-2) % Lymph # (Auto) 2.2 (1.2-4.9) X10*3/uL [place] # (Auto) 0.8 (0.1-1.2) X10*3/uL Eos # (Auto) 0.2 (0.0-0.4) X10*3/uL Baso # (Auto) 0.0 (0.0-0.2) X10*3/uL Abs Immat Gran (auto) 0.02 (0.00-0.03) X10*3/uL Absolute Neuts (auto) 4.9 (2.0-8.3) x10*3/uL Absolute Nucleated RBC 0.000 (0.0-0.012) X10*3/uL Nucleated RBC % (auto) 0.0 (0.0-0.2) /100WBC Sodium 141 (135-145) mmol/L Potassium 3.6 (3.3-5.1) mmol/L Chloride 108 (96-108) mmol/L Carbon Dioxide 25 (22-29) mmol/L Anion Gap 12 (12-20) BUN 11 (9-16) mg/dL Creatinine 0.66 (0.5-1.4) mg/dL Estim Creat Clear Calc 51.3 Estimated GFR > 60 Random Glucose 100 (60-115) mg/dL Calcium 9.5 (8.4-10.2) mg/dL Total Bilirubin 1.0 (0.0-1.0) mg/dL AST 25 (5-31) U/L ALT 7 (0-31) U/L Alkaline Phosphatase 70 (39-117) U/L Troponin I High Sens < 2.7 (<3.5-17.0) ng/L Total Protein 6.9 (6.5-8.0) g/dL Albumin 4.3 (3.5-5.0) g/dL Independent Interpretation I performed an independent interpretation of an: CT Scan Radiology Impression Discussion of test interpretation with radiology: I have reviewed the radiologist's reading. Radiologist Impression: setting of small vessel ischemic disease. There is no mass effect or midline shift. No intra or extra-axial fluid collections are identified. There are no foci of restricted diffusion. Normal vascular flow voids are noted in the basilar and carotid arteries. There is partial opacification of the bilateral anterior ethmoid sinuses. There is mucosal thickening in the bilateral frontal and maxillary sinuses. MR/MR head/brain wo con IMPRESSION: No acute intracranial abnormality. Electronically signed by: Augie Jose MD 02/02/2025 03:28 PM EDT RP Dictated By: Augie Jose MD Signed By: <Electronically signed by Augie Jose MD in OV> 02/02/25 1528 Independent Historian Clinical information obtained from an independent historian. History obtained from or confirmed by: Spouse Discharge Plan Discharge Clinical Impression: Hand paresthesia Patient Disposition: Home, Self-Care Instructions: Paresthesia (ED) Additional Instructions: Follow-up with your primary care physician today we did MRI of your brain which was normal, we also did a CAT scan angiography of the head and neck which also was normal. Prescriptions: No Action (DME) FreeStyle Waldemar 14 Day [place] Misc See Rx Instructions .Route Qty: 1 0RF Rx Instructions: As directed (DME) FreeStyle Waldemar 14 Day Sensor Kit See Rx Instructions .Route Qty: 2 4RF Rx Instructions: As directed tramadol 50 mg tablet 50 mg PO BID PRN (Reason: pain) 21 Days Qty: 42 0RF Rx Instructions: ULTRAM Brand name estradiol [Estrace] 0.01 % (0.1 mg/gram) cream See Rx Instructions vaginal DAILY Qty: 42.5 0RF Rx Instructions: pea size amount to urethra vaginally daily (DME) insulin syringe-needle U-100 1 mL 32 gauge x 5/16 syringe See Rx Instructions .Route Qty: 100 1RF Rx Instructions: Use daily with Tymlos promethazine 12.5 mg tablet 12.5 mg PO Q6H PRN (Reason: nausea and vomiting) Qty: 20 0RF fluticasone propionate [Flonase Allergy Relief] 50 mcg/actuation spray,suspension 2 spray intranasal DAILY Qty: 15.8 0RF Rx Instructions: administer into each nostril escitalopram oxalate [Lexapro] 10 mg tablet 10 mg PO DAILY Qty: 30 5RF Rx Instructions: Brand name only sennosides-docusate sodium [Senna with Docusate Sodium] 8.6-50 mg tablet 2 tab-cap PO BEDTIME 30 Days Qty: 60 2RF alprazolam [Xanax] 0.5 mg tablet 0.5 mg PO BEDTIME PRN (Reason: sleep) Qty: 30 0RF cholecalciferol (vitamin D3) 50 mcg (2,000 unit) capsule See Rx Instructions .ROUTE .COMPLEX Qty: 90 0RF Dose Instruction: TAKE 1 CAPSULE BY MOUTH DAILY Rx Instructions: TAKE 1 CAPSULE BY MOUTH DAILY atorvastatin 40 mg tablet 40 mg PO DAILY Qty: 90 1RF lidocaine [Lidocaine Pain Relief] 4 % Adhesive Patch,Medicated 1 patch transdermal DAILY Qty: 30 0RF Protocol: Apply to: Apply to: R shoulder loratadine 10 mg tablet 10 mg PO DAILY PRN (Reason: allergy symptoms) Qty: 30 2RF Eliquis 5 mg tablet 5 mg PO BID 90 Days Qty: 180 3RF (DME) nebulizers Misc See Rx Instructions .Route Rx Instructions: As directed polyethylene glycol 3350 [Miralax] 17 gram/dose powder 17 g PO DAILY 30 Days Qty: 510 4RF albuterol sulfate 90 mcg/actuation HFA aerosol inhaler 2 inh inhalation Q6H PRN (Reason: shortness of breath or wheezing) 30 Days Qty: 18 12RF amoxicillin 500 mg capsule 500 mg PO TID Referrals: Po,Abby Marc MD [Primary Care Provider] - 2 days Print Language: Sami
[2025-02-02 12:30] LABS: MANUAL DIFF FLAG NO
[2025-02-02 12:33] LABS: Basophils Percent Auto 0.5 % (0-2); Eosinophils Absolute Auto 0.2 X10*3/uL (0.0-0.4); Eosinophils Percent Auto 2.5 % (0-4); Hemoglobin 12.1 g/dl (12.0-16.0); Imm Gran Abs Auto 0.02 X10*3/uL (0.00-0.03); Imm Gran Pct Auto 0.2 % (0.0-0.4); Lymphocytes Absolute Auto 2.2 X10*3/uL (1.2-4.9); Lymphocytes Percent Auto 26.9 % (20-40); Mean Corpuscular HGB Conc 33.6 g/dl (31.0-35.0); Mean Corpuscular Hemoglobin 29.9 pg (27.0-33.0); Mean Corpuscular Volume 88.9 fL (80.0-98.0); Mean Platelet Volume 9.4 fL (9.4-12.3); Monocytes Absolute Auto 0.8 X10*3/uL (0.1-1.2); Monocytes Percent Auto 9.7 % (2-11); Neutrophils Absolute Auto 4.9 x10*3/uL (2.0-8.3); Neutrophils Percent Auto 60.2 % (45-73); Platelet Count 225 X10*3/uL (160-400); Red Blood Count 4.05 X10*6/uL (4.20-5.50); Red Cell Distribution Width 13.4 % (11.0-16.0); White Blood Count 8.1 X10*3/uL (4.8-10.8)
[2025-02-02] MEDS: iohexoL 350 MG/ML 100 ML INFUS..BTL IV (12:41)
[2025-02-02 12:48] LABS: Alanine Aminotransferase 7 U/L (0-31); Albumin Level 4.3 g/dL (3.5-5.0); Alkaline Phosphatase 70 U/L (39-117); Anion Gap 12 (12-20); Aspartate Amino Transferase 25 U/L (5-31); Blood Urea Nitrogen 11 mg/dL (9-16); Calcium 9.5 mg/dL (8.4-10.2); Carbon Dioxide 25 mmol/L (22-29); Chloride 108 mmol/L (96-108); Creatinine Clr Calc Pharmacy 51.3; Estimated Glomerular Filt Rate > 60; Glucose Random 100 mg/dL (60-115); Potassium 3.6 mmol/L (3.3-5.1); Sodium 141 mmol/L (135-145); Total Protein 6.9 g/dL (6.5-8.0)
[2025-02-02 13:01] LABS: Troponin-I High Sensitivity < 2.7 ng/L (<3.5-17.0)
--- NOTE | 2025-02-02 13:45 | PC.NURSE ---
MRI screening completed and faxed
--- OUTSIDE RECORDS SUMMARY | 2025-02-02 14:38 | XMS_ITS | Encounter Summary ---
Author Organization [facility] Address [address] [place] [address] Care Team Providers Care Tool Maker Bench Name Role Phone Lavell Marcos MD Primary Care Provider Jennifer Sylvester MD Primary Care Provider [phone] [facility], Pcp Primary Care Provider Unavailabl e Encounter Details Date Type Department Care Team Description 09/13/2020 Cork Wirer Report Medical Records [address] [place] [id number] [facility] Social History Tobacco Use Types Packs/Day Years [...] filedocumented in this encounter Care Teams Tool Maker Bench Relationship Specialty Start Date End Date Lavell Marcos MD [address] [place] [phone] PCP - General 04/06/07 02/08/21 Jennifer Sylvester MD [address] [place] [address] 12381 PCP - General Internal Medicine 02/09/21 01/22/23 [facility], Pcp [address] [place] [address] 47[address] PCP - General Internal Medicine 01/23/23 documented as of this encounter
--- OUTSIDE RECORDS SUMMARY | 2025-02-02 14:38 | XMS_ITS | Encounter Summary ---
Author Organization [facility] Address [address] [place] [address] Care Team Providers Care Marketing Professor Name Role Phone Lavell Marcos MD Primary Care Provider Jennifer Sylvester MD Primary Care Provider [facility], Pcp Primary Care Provider Unavailabl e Encounter Details Date Type Department Care Team Description 02/19/2018 Consignee Report Medical Records [address] [place] [id number] Jose Cornejo MD Social History Tobacco Use [...] filedocumented in this encounter Care Teams Marketing Professor Relationship Specialty Start Date End Date Lavell Marcos MD [address] [place] [address] 91632 PCP - General 04/06/07 02/08/21 Jennifer Sylvester MD [address] [place] [address] 85456 PCP - General Internal Medicine 02/09/21 01/22/23 [facility], Pcp [address] [place] [address] 94780 PCP - General Internal Medicine 01/23/23 documented as of this encounter
--- OUTSIDE RECORDS SUMMARY | 2025-02-02 14:39 | XMS_ITS | Encounter Summary ---
Author Organization [facility] Address [address] [place] [address] Care Team Providers Care Veterinary Manager Name Role Phone Lavell Marcos MD Primary Care Provider Jennifer Sylvester MD Primary Care Provider [phone] [facility], Pcp Primary Care Provider Unavailabl e Encounter Details Date Type Department Care Team Description 05/25/2020 Cell Changer Report Medical Records [address] [place] [address] Eduardo Lino MD Social History Tobacco Use [...] on filedocumented in this encounter Care Teams Veterinary Manager Relationship Specialty Start Date End Date Lavell Marcos MD [address] [place] [address] 32801 PCP - General 04/06/07 02/08/21 Jennifer Sylvester MD [address] [place] [address] 08785 PCP - General Internal Medicine 02/09/21 01/22/23 [facility], Pcp [address] [place] [address] [phone] PCP - General Internal Medicine 01/23/23 documented as of this encounter
--- OUTSIDE RECORDS SUMMARY | 2025-02-02 14:39 | XMS_ITS | Encounter Summary ---
Author Organization [facility] Address [address] [place] [address] Care Team Providers Care Geek Squad Autotech Name Role Phone Lavell Marcos MD Primary Care Provider [phone] Jennifer Sylvester MD Primary Care Provider [phone] [facility], Pcp Primary Care Provider Unavailabl e Encounter Details Date Type Department Care Team Description 01/06/2019 Release of Information Medical Records [address] [place], [place] [id number] Abstract, Provider Social History Tobacco Use Types [...] on filedocumented in this encounter Care Teams Geek Squad Autotech Relationship Specialty Start Date End Date Lavell Marcos MD [address] [place] [address] 67[address] PCP - General 04/06/07 02/08/21 Jennifer Sylvester MD [address] [place] [address] [phone] PCP - General Internal Medicine 02/09/21 01/22/23 [facility], Pcp [address] [place] [address] 53021 PCP - General Internal Medicine 01/23/23 documented as of this encounter
--- OUTSIDE RECORDS SUMMARY | 2025-02-02 14:39 | XMS_ITS | Encounter Summary ---
Author Organization [facility] Address [address] [place] [address] Care Team Providers Care Communications Scientist Name Role Phone Jennifer Sylvester MD Primary Care Provider [phone] [facility], Pcp Primary Care Provider Unavailabl e Encounter Details Date Type Department Care Team Description 05/29/2021 Supervisor Plasma Report Medical Records [address] [place] [address] Augie Braga MD Social History Tobacco Use [...] have Coronavirus / COVID-19? No / Unsure 05/22/2021 8:58 AM EDT documented as of this encounter Plan of Treatment Not on file documented as of this encounter Visit Diagnoses Not on filedocumented in this encounter Care Teams Communications Scientist Relationship Specialty Start Date End Date Jennifer Sylvester MD [address] [place] [address] [phone] PCP - General Internal Medicine 02/09/21 01/22/23 [facility], Pcp [address] [place] [address] 16804 PCP - General Internal Medicine 01/23/23 documented as of this encounter
--- OUTSIDE RECORDS SUMMARY | 2025-02-02 14:39 | XMS_ITS | Encounter Summary ---
Author Organization [facility] Address [address] [place] [address] Care Team Providers Care Director Of Estate Name Role Phone Lavell Marcos MD Primary Care Provider Jennifer Sylvester MD Primary Care Provider [phone] [facility], Pcp Primary Care Provider Unavailabl e Encounter Details Date Type Department Care Team Description 06/30/2015 Labourers Report Medical Records [address] [place] [address] Eduardo Lino MD Social History Tobacco Use [...] in this encounter Care Teams Director Of Estate Relationship Specialty Start Date End Date Lavell Marcos MD [address] [place] [address] [phone] PCP - General 04/06/07 02/08/21 Jennifer Sylvester MD [address] [place] [address] 27102 PCP - General Internal Medicine 02/09/21 01/22/23 [facility], Pcp [address] [place] [address] 02197 PCP - General Internal Medicine 01/23/23 documented as of this encounter
--- OUTSIDE RECORDS SUMMARY | 2025-02-02 14:39 | XMS_ITS ---
Author Organization [facility] Address [address] [place] [address] Care Team Providers Care Pot Operator Name Role Phone Abby Potter MD Primary Care Provider Nadine Tai Unavailable [phone] REASON FOR VISIT rethinking colonoscopy Encounters Encounter Location Date Provider Diagnosis [facility] [address] [place] [address] 08/26/2024 Nadine Braga Plan Of Treatment No Information Progress Notes * TIMMY NAVARRODOB:1945 (78 yo F)Acc No.[id number]:08/26/2024 Patient:?MELANIETIMMY :1945???Age:78 Y???Sex:Female Address:[address] [place], [place] [address] [address] * true * Date:? Generated for Carmelina baker/[place]/eTransmitting on:?02/02/2025 02:38 PM EDT
--- OUTSIDE RECORDS SUMMARY | 2025-02-02 14:39 | XMS_ITS | Encounter Summary ---
Author Organization [facility] Address [address] [place] [address] Care Team Providers Care Shift Leader Name Role Phone Lavell Marcos MD Primary Care Provider [phone] Jennifer Sylvester MD Primary Care Provider [phone] [facility], Pcp Primary Care Provider Unavailabl e Encounter Details Date Type Department Care Team Description 12/10/2018 Farm Crops Teacher Report Medical Records [address] [place] [address] Rafat Gregorio MD Social History Tobacco Use [...] on filedocumented in this encounter Care Teams Shift Leader Relationship Specialty Start Date End Date Lavell Marcos MD [address] [place] [address] 454[address] PCP - General 04/06/07 02/08/21 Jennifer Sylvester MD [address] [place] [address] 63869 PCP - General Internal Medicine 02/09/21 01/22/23 [facility], Pcp [address] [place] [address] [phone] PCP - General Internal Medicine 01/23/23 documented as of this encounter
--- OUTSIDE RECORDS SUMMARY | 2025-02-02 14:39 | XMS_ITS | Encounter Summary ---
Author Organization [facility] Address [address] [place] [address] Care Team Providers Care Hot Plate Press Operator Name Role Phone Lavell Marcos MD Primary Care Provider [phone] Jennifer Sylvester MD Primary Care Provider [phone] [facility], Pcp Primary Care Provider Unavailabl e Encounter Details Date Type Department Care Team Description 08/07/2018 Orders Only Pulmonology - [address] [place] [phone] Eduardo Lino MD Social History Tobacco [...] on filedocumented in this encounter Care Teams Hot Plate Press Operator Relationship Specialty Start Date End Date Lavell Marcos MD [address] [place] [address] PCP - General 04/06/07 02/08/21 Jennifer Sylvester MD [address] [place] [address] [phone] PCP - General Internal Medicine 02/09/21 01/22/23 [facility], [address] [address] PCP - General Internal Medicine 01/23/23 documented as of this encounter
--- OUTSIDE RECORDS SUMMARY | 2025-02-02 14:39 | XMS_ITS | Encounter Summary ---
Author Organization [facility] Address [address] [place] [address] Care Team Providers Care Heating Equipment Installer Name Role Phone Lavell Marcos MD Primary Care Provider [phone] eJnnifer Sylvester MD Primary Care Provider [phone] [facility], Pcp Primary Care Provider Unavailabl e Reason for Visit * Reason Onset Date Comments TEST RESULTS 11/10/2018 Encounter Details Date Type Department Care Team Description 11/10/2018 Telephone [facility] Satellite Medicine - [address] [phone] Luis Miguel Gomez MD TEST RESULTS Social [...] on filedocumented in this encounter Care Teams Heating Equipment Installer Relationship Specialty Start Date End Date Lavell Marcos MD [address] [place] [address] PCP - General 04/06/07 02/08/21 Jennifer Sylvester MD [address] [place] [address] PCP - General Internal Medicine 02/09/21 01/22/[address] [address] PCP - General Internal Medicine 01/23/23 documented as of this encounter
--- OUTSIDE RECORDS SUMMARY | 2025-02-02 14:39 | XMS_ITS | Encounter Summary ---
Author Organization [facility] Address [address] [place] [address] Care Team Providers Care Information Clerk Name Role Phone Lavell Marcos MD Primary Care Provider [phone] Jennifer Sylvester MD Primary Care Provider [phone] [facility], Pcp Primary Care Provider Unavailabl e Reason for Visit * Reason Onset Date Comments medication problems 12/10/2018 Encounter Details Date Type Department Care Team Description 12/10/[address] [facility] [address] [place] [address] Lavell Marcos MD [address] [place] [address] medication problems Social History Tobacco Use Types Packs/Day Years [...] encounter Miscellaneous Notes * Telephone Encounter - Lavell Marcos MD - 12/10/2018 3:07 PM EST We'll already called the previously and he is either on his way for already picked that up from patient pickup * Telephone Encounter - Jessica Bergman M.A. - 12/10/2018 2:48 PM EST Please print rx pharmacy unable to fill from electronic order sent today * Telephone Encounter - Alteha Basurto - 12/10/2018 1:37 PM EST Who is calling? The patient Name of the medication HYDROmorphone (DILAUDID) 2 MG tablet 20 tablet 0 12/10/2018 12/17/2018 Si or 2 po q 6hrsprn severe pain in neck and shoulders Class: Print Notes to Pharmacy: I am aware of her sensitivity to other narcotics Order: [id number] Date/Time Signed: 12/10/2018 11:27 AM What is the specific problem or interaction? Pharmacy cannot fill because it was faxed over, needs hard copy in patient picker and packer. If the patient is having a problem with taking the med - how long has the problem been going on? N/A documented in this encounter Plan of Treatment Not on file documented as of this encounter Visit Diagnoses Not on filedocumented in this encounter Care Teams Information Clerk Relationship Specialty Start Date End Date Lavell Marcos MD [address] [place] [address] PCP - General 04/06/07 02/08/21 Jennifer Sylvester MD [address] [place] [address] PCP - General Internal Medicine 02/09/21 01/22/[address] [address] PCP - General Internal Medicine 01/23/23 documented as of this encounter
--- OUTSIDE RECORDS SUMMARY | 2025-02-02 14:39 | XMS_ITS | Encounter Summary ---
Author Organization [facility] Address [address] [place] [address] Care Team Providers Care Bread Oven Operator Name Role Phone Lavell Marcos MD Primary Care Provider [phone] Jennifer Sylvester MD Primary Care Provider [phone] [facility], Pcp Primary Care Provider [facility] Encounter Details Date Type Department Care Team Description 11/21/2014 Closing Machine Operator Report Medical Records [address] [place] [address] Bib Sandoval MD Social History Tobacco Use [...] on filedocumented in this encounter Care Teams Bread Oven Operator Relationship Specialty Start Date End Date Lavell Marcos MD [address] [place] [address] PCP - General 04/06/07 02/08/21 Jennifer Sylvester MD [address] [place] [address] PCP - General Internal Medicine 02/09/21 01/22/23 [facility], Pcp [address] [place] [address] PCP - General Internal Medicine 01/23/23 documented as of this encounter
--- OUTSIDE RECORDS SUMMARY | 2025-02-02 14:39 | XMS_ITS | Encounter Summary ---
Author Organization [facility] Address [address] [place] [address] Care Team Providers Care Resident In Diagnostic Radiology Name Role Phone Lavell Marcos MD Primary Care Provider [phone] Jennifer Sylvester MD Primary Care Provider [phone] [facility], Pcp Primary Care Provider Unavailabl e Encounter Details Date Type Department Care Team Description 11/10/2014 Conductor Freight Report Medical Records [address] [place] [address] Eduardo Lino MD Social History Tobacco Use [...] on filedocumented in this encounter Care Teams Resident In Diagnostic Radiology Relationship Specialty Start Date End Date Lavell Marcos MD [address] [place] [address] PCP - General 04/06/07 02/08/21 Jennifer Sylvester MD [address] [place] [address] PCP - General Internal Medicine 02/09/21 01/22/23 [facility], Pcp [address] [place] [address] PCP - General Internal Medicine 01/23/23 documented as of this encounter
--- OUTSIDE RECORDS SUMMARY | 2025-02-02 14:39 | XMS_ITS | Encounter Summary ---
Author Organization [facility] Address [address] [place] [address] Care Team Providers Care Inventory Analyst Name Role Phone Lavell Marcos MD Primary Care Provider [phone] Jennifer Sylvester MD Primary Care Provider [phone] [facility], Pcp Primary Care Provider Unavailabl e Reason for Visit * Reason Onset Date Comments Faxed Refill 12/08/2018 Encounter Details Date Type Department Care Team Description 12/08/2018 Refill Pulmonology - [address] [place] [address] Eduardo Lino MD Faxed Refill [...] on filedocumented in this encounter Care Teams Inventory Analyst Relationship Specialty Start Date End Date Lavell Marcos MD [address] [place] [address] PCP - General 04/06/07 02/08/21 Jennifer Sylvester MD [address] [place] [address] PCP - General Internal Medicine 02/09/21 01/22/[address] [address] PCP - General Internal Medicine 01/23/23 documented as of this encounter
--- OUTSIDE RECORDS SUMMARY | 2025-02-02 14:39 | XMS_ITS | Encounter Summary ---
Author Organization [facility] Address [address] [place] [address] Care Team Providers Care Escrow Closer Name Role Phone Lavell Marcos MD Primary Care Provider [phone] Jennifer Sylvester MD Primary Care Provider [phone] [facility], Pcp Primary Care Provider Unavailabl e Reason for Visit * Reason Onset Date Comments Echocardiogram 11/19/2011 Encounter Details Date Type Department Care Team Description 11/19/2011 Telephone Cardiology - [place] [address] [place], [place] [phone] Lakia Enriquez, MARI [address], [place] [phone] Echocardiogram Social History Tobacco Use Types Packs/Day [...] * Telephone Encounter - Marlena Borrero - 11/19/2011 1:45 PM EST Due to this patients insurance the order for the echcocardiogram has been faxed to [address] to be done documented in this encounter Plan of Treatment Not on file documented as of this encounter Visit Diagnoses Not on filedocumented in this encounter Care Teams Escrow Closer Relationship Specialty Start Date End Date Lavell Marcos MD [address] [place] [address] PCP - General 04/06/07 02/08/21 Jennifer Sylvester MD [address] [place] [address] PCP - General Internal Medicine 02/09/21 01/22/23 [facility], Pcp [address] [place] [address] PCP - General Internal Medicine 01/23/23 documented as of this encounter
--- OUTSIDE RECORDS SUMMARY | 2025-02-02 14:39 | XMS_ITS | Encounter Summary ---
Author Organization [facility] Address [address] [place] [address] Care Team Providers Care Alcoholism Worker Name Role Phone Lavell Marcos MD Primary Care Provider [phone] Jennifer Sylvester MD Primary Care Provider [phone] [facility], Pcp [facility] Encounter Details Date Type Department Care Team Description 11/26/2018 Pt. Non Urgent Medic al Question Adult Medicine [address] [phone] Luis Miguel Gomez MD Social History Tobacco [...] on filedocumented in this encounter Care Teams Alcoholism Worker Relationship Specialty Start Date End Date Lavell Marcos MD [address] [place] [address] PCP - General 04/06/07 02/08/21 Jennifer Sylvester MD [address] [place] [address] PCP - General Internal Medicine 02/09/21 01/22/23 [facility], [address] [address] PCP - General Internal Medicine 01/23/23 documented as of this encounter
--- OUTSIDE RECORDS SUMMARY | 2025-02-02 14:39 | XMS_ITS | Encounter Summary ---
Author Organization [facility] Address [address] [place] [address] Care Team Providers Care Residential Sales Associate Name Role Phone Lavell Marcos MD Primary Care Provider [phone] Jennifer Sylvester MD Primary Care Provider [phone] [facility], Pcp Primary Care [facility] Encounter Details Date Type Department Care Team Description 10/09/2015 Circular Knitter Helper Report Medical Records [address] [place] [address] Bib Sandoval MD Social History Tobacco Use [...] filedocumented in this encounter Care Teams Residential Sales Associate Relationship Specialty Start Date End Date Lavell Marcos MD [address] [place] [address] PCP - General 04/06/07 02/08/21 Jennifer Sylvester MD [address] [place] [address] PCP - General Internal Medicine 02/09/21 01/22/23 [facility], Pcp [address] [place] [address] PCP - General Internal Medicine 01/23/23 documented as of this encounter
--- OUTSIDE RECORDS SUMMARY | 2025-02-02 14:39 | XMS_ITS | Encounter Summary ---
Author Organization [facility] Address [address] [place] [address] Care Team Providers Care Warehousing Technician Name Role Phone Lavell Marcos MD Primary Care Provider [phone] Jennifer Sylvester MD Primary Care Provider [phone] [facility], Pcp Primary Care Provider Unavailabl e Encounter Details Date Type Department Care Team Description 04/10/2020 Big Data Solutions Architect Report Medical Records [address] [place] [address] Johnna Serna MD Social History Tobacco Use [...] on filedocumented in this encounter Care Teams Warehousing Technician Relationship Specialty Start Date End Date Lavell Marcos MD [address] [place] [address] PCP - General 04/06/07 02/08/21 Jennifer Sylvester MD [address] [place] [address] PCP - General Internal Medicine 02/09/21 01/22/23 [facility], Pcp [address] [place] [address] PCP - General Internal Medicine 01/23/23 documented as of this encounter
--- OUTSIDE RECORDS SUMMARY | 2025-02-02 14:39 | XMS_ITS | Encounter Summary ---
Author Organization [facility] Address [address] [place] [address] Care Team Providers Care Curriculum Assistant Principal Name Role Phone Lavell Marcos MD Primary Care Provider Jennifer Sylvester MD Primary Care Provider [phone] [facility], Pcp Primary Care Provider Unavailabl e Encounter Details Date Type Department Care Team Description 01/21/2020 Top Printing Press Operator Report Medical Records [address] [place] [address] Eduardo Lino MD Social History Tobacco Use [...] on filedocumented in this encounter Care Teams Curriculum Assistant Principal Relationship Specialty Start Date End Date Lavell Marcos MD [address] [place] [address] PCP - General 04/06/07 02/08/21 Jennifer Sylvester MD [address] [place] [address] PCP - General Internal Medicine 02/09/21 01/22/23 [facility], Pcp [address] [place] [address] PCP - General Internal Medicine 01/23/23 documented as of this encounter
--- OUTSIDE RECORDS SUMMARY | 2025-02-02 14:39 | XMS_ITS ---
Author Organization [facility] Address [address] [place] [address] Care Team Providers Care Manager Crisis Name Role Phone Abby Potter MD Primary Care Provider Unavailletty e Nadine Braga Unavailable [phone] Allergies Allergen (clinical drug ingredient) Drug/Non Drug [...] 08/25/2024 Encounters Encounter Location Date Provider Diagnosis [facility] [address] [place] [address] 08/25/2024 Nadine Braga Gastroesophageal ref lux disease, [...] I did recommend that she try some vvdp-pjk-zcdakxp antacid such as TUMS or Pepcid if [...] I did recommend that she try some wnni-uea-tftgbip antacid such as TUMS or Pepcid if [...] I did recommend that she try some jpci-yop-xmhtftz antacid such as TUMS or Pepcid if [...] Notes * ADELINA NAVARRODOB:1945 (78 yo F)Acc No.[id number]:08/25/2024 Progress Notes Patient:?ADELINA NAVARRO Provider:?Nadine Braga MD :1945???Age:78 Y???Sex:Female D ate:08/25/2024 Address:[address] [place], [place] [address] Pcp:Abby Potter MD Subjective: * Chief Complaints: [...] History:?Sinus surg adelso Bladder suspension surgery C-spine--at [facility] 02/15/2018 * Hospitalization/Major Diagno stic Procedure:?No Hospitalization [...] I did recommend that she try some juco-nzf-bnxahzz antacid such as TUMS or Pepcid if [...] Patient decision) * Procedure Codes:?1036F TOBAC CO NON-SOENF3506 BP SCR NOT PRFRM REC REASON NOS [...] MD Date:? 024 Generated for Carmelina baker/Quin[place]/Jose on:?02/02/2025 02:38 PM EDT History and Physical Notes * HPI [...]
--- OUTSIDE RECORDS SUMMARY | 2025-02-02 14:39 | XMS_ITS | Encounter Summary ---
Author Organization [facility] Address [address] [place] [address] Care Team Providers Care Machine Learning Intern Name Role Phone Jennifer Sylvester MD Primary Care Provider [phone] [facility] [place] [facility], Pcp Primary Care Provider [facility] Encounter Details Date Type Department Care Team Description 05/14/2021 Manager Critical Care Report Medical Records [address] [place] [address] Bib Sandoval MD Social History Tobacco Use [...] have Coronavirus / COVID-19? No / Unsure 05/10/2021 9:44 AM EDT documented as of this encounter Plan of Treatment Not on file documented as of this encounter Visit Diagnoses Not on filedocumented in this encounter Care Teams Machine Learning Intern Relationship Specialty Start Date End Date Jennifer Sylvester MD [address] [place] [address] [phone] PCP - General Internal Medicine 02/09/21 01/22/23 [facility], Pcp [address] [place] [address] PCP - General Internal Medicine 01/23/23 documented as of this encounter
--- OUTSIDE RECORDS SUMMARY | 2025-02-02 14:39 | XMS_ITS | Encounter Summary ---
Author Organization [facility] Address [address] [place] [address] Care Team Providers Care Fire Department Battalion Chief Name Role Phone Lavell Marcos MD Primary Care Provider [phone] Jennifer Sylvester MD Primary Care Provider [phone] [facility], Pcp Primary Care Provider Unavailabl e Encounter Details Date Type Department Care Team Description 05/30/2020 Ski Lift Attendant Report Medical Records [address] [place] [address] Reji White MD [address] [place] [address] Social History Tobacco Use Types Packs/Day Years [...] filedocumented in this encounter Care Teams Fire Department Battalion Chief Relationship Specialty Start Date End Date Lavell Marcos MD [address] [place] [address] PCP - General 04/06/07 02/08/21 Jennifer Sylvester MD [address] [place] [address] 419[address] PCP - General Internal Medicine 02/09/21 01/22/23 [facility], Pcp [address] [place] [address] PCP - General Internal Medicine 01/23/23 documented as of this encounter
--- OUTSIDE RECORDS SUMMARY | 2025-02-02 14:39 | XMS_ITS | Encounter Summary ---
Author Organization [facility] Address [address] [place] [address] Care Team Providers Care Filter Press Tender Head Name Role Phone Lavell Marcos MD Primary Care Provider [phone] Jennifer Sylvester MD Primary Care Provider [phone] [facility], Pcp Primary Care Provider Unavailabl e Reason for Visit * Reason Onset Date Comments other 08/03/2018 office notes Encounter Details Date Type Department Care Team Description 08/03/2018 Telephone Pulmonology - [address] [place] [phone] Eduardo Lino MD other (office notes ) [...] 08/06/2018 4:24 PM EDT Ashwin spoke to Alzie at [employer] .she said nebulizer has to be mentioned in the note if you can add that in. * Telephone Encounter - Mike Lepe - 08/06/2018 3:36 PM EDT Spoke to rust she will call me back * Telephone [...] what to do. Please call her at [phone]. * Telephone Encounter - Magalys Azevedo - 08/03/2018 4:12 PM EDT Needs office notes faxed over to supply [employer] for her nebulizer machine documented in this encounter Plan of Treatment Not on file documented as of this encounter Visit Diagnoses Not on filedocumented in this encounter Care Teams Filter Press Tender Head Relationship Specialty Start Date End Date Lavell Marcos MD [address] [place] [address] PCP - General 04/06/07 02/08/21 Jennifer Sylvester MD [address] [place] [address] [phone] PCP - General Internal Medicine 02/09/21 01/22/23 [facility], [address] [address] PCP - General Internal Medicine 01/23/23 documented as of this encounter
--- OUTSIDE RECORDS SUMMARY | 2025-02-02 14:39 | XMS_ITS | Encounter Summary ---
Author Organization [facility] Address [address] [place] [address] Care Team Providers Care Instrument Installer Name Role Phone Jennifer Sylvester MD Primary Care Provider [phone] [facility], Pcp Primary Care Provider Unavailabl e Encounter Details Date Type Department Care Team Description 07/16/2021 Net Fisher Report Medical Records [address] [place] [address] Eduardo Lino MD Social History Tobacco Use [...] on filedocumented in this encounter Care Teams Instrument Installer Relationship Specialty Start Date End Date Jennifer Sylvester MD [address] [place] [address] [phone] PCP - General Internal Medicine 02/09/21 01/22/23 [facility], Pcp [address] [place] [address] PCP - General Internal Medicine 01/23/23 documented as of this encounter
--- OUTSIDE RECORDS SUMMARY | 2025-02-02 14:39 | XMS_ITS | Encounter Summary ---
Author Organization [facility] Address [address] [place] [address] Care Team Providers Care Television Installer Helper Name Role Phone Lavell Marcos MD Primary Care Provider Jennifer Sylvester MD Primary Care Provider [phone] [facility], Pcp Primary Care Provider Unavailabl e Encounter Details Date Type Department Care Team Description 03/09/2020 Lithopone Mill Worker Report Medical Records [address] [place] [address] Rafat Gregorio MD Social History Tobacco Use [...] on filedocumented in this encounter Care Teams Television Installer Helper Relationship Specialty Start Date End Date Lavell Marcos MD [address] [place] [address] PCP - General 04/06/07 02/08/21 Jennifer Sylvester MD [address] [place] [address] PCP - General Internal Medicine 02/09/21 01/22/23 [facility], Pcp [address] [place] [address] PCP - General Internal Medicine 01/23/23 documented as of this encounter
--- OUTSIDE RECORDS SUMMARY | 2025-02-02 14:40 | XMS_ITS | Encounter Summary ---
Author Organization [facility] Address [address] [place] [address] Care Team Providers Care Evaluator Name Role Phone Jennifer Sylvester MD Primary Care Provider [phone] [facility], Pcp Primary Care Provider Unavailabl e Encounter Details Date Type Department Care Team Description 06/26/2021 Engine House Helper Report Medical Records [address] [place] [address] Eduardo Lino MD Social History Tobacco Use [...] on filedocumented in this encounter Care Teams Evaluator Relationship Specialty Start Date End Date Jennifer Sylvester MD [address] [place] [address] [phone] PCP - General Internal Medicine 02/09/21 01/22/23 [facility], Pcp [address] [place] [address] PCP - General Internal Medicine 01/23/23 documented as of this encounter
--- OUTSIDE RECORDS SUMMARY | 2025-02-02 14:40 | XMS_ITS | Encounter Summary ---
Author Organization [facility] Address [address] [place] [address] Care Team Providers Care Conservation Of Resources Commissioner Name Role Phone Lavell Marcos MD Primary Care Provider Jennifer Sylvester MD Primary Care Provider [phone] [facility], Pcp Primary Care Provider Unavailabl e Reason for Visit * Reason Onset Date Comments TEST RESULTS 06/24/2014 Encounter Details Date Type Department Care Team Description 06/24/2014 Telephone Adult Medicine [facility] [address] [place] [address] Lavell Marcos MD [address] [place] [address]15 TEST RESULTS Social History Tobacco Use Types [...] Telephone Encounter - Lavell Marcos MD - 06/24/2014 2:25 PM EDT Tests ordered by dr schreiber Were normal * Telephone Encounter - Chikis Moreland M.A. - 06/24/2014 2:05 PM EDT Please review and advise as ordering Dr is out of office. Ok to wait for her return? * Telephone Encounter - Inez Bond - 06/24/2014 11:17 AM EDT Inform patient: ANY URGENT OR ABNORMAL RESULTS WIILL RESULT IN A CALL BACK TO THE PATIENT SHAWN. Type of test: :multiple Date test was performed: [address]70 Where was the test performed: rb Who ordered this test?: Dr Schreiber Is the doctor here today?: NO Can the message wait until the doctor returns?:yes IF PATIENT'S PCP IS NOT IN INSTRUCT PATIENT THAT THEY WILL RECEIVE A CALL BACK WHEN THE PCP IS IN THE OFFICE NEXT. documented in this encounter Plan of Treatment Not on file documented as of this encounter Visit Diagnoses Not on filedocumented in this encounter Care Teams Conservation Of Resources Commissioner Relationship Specialty Start Date End Date Lavell Marcos MD [address] [place] [address] PCP - General 04/06/07 02/08/21 Jennifer Sylvester MD [address] [place] [address]648 PCP - General Internal Medicine 02/09/21 01/22/23 Joe Garay [address] [place] [address]68 PCP - General Internal Medicine 01/23/23 documented as of this encounter
--- OUTSIDE RECORDS SUMMARY | 2025-02-02 14:40 | XMS_ITS | Encounter Summary ---
Author Organization [facility] Address [address] [place] [address] Care Team Providers Care Internal Controls Analyst Name Role Phone Lavell Marcos MD Primary Care Provider Jennifer Sylvester MD Primary Care Provider [phone] [facility], Pcp Primary Care Provider [facility] e Encounter Details Date Type Department Care Team Description 11/15/2011 Hospital Medical Records [address] [place] [address] Yazan Lang Social History Tobacco Use Types Packs/Day Years [...] on filedocumented in this encounter Care Teams Internal Controls Analyst Relationship Specialty Start Date End Date Lavell Marcos MD [address] [place] [address] 48025 PCP - General 04/06/07 02/08/21 Jennifer Sylvester MD [address] [place] [address] 69485 PCP - General Internal Medicine 02/09/21 01/22/23 [facility], Pcp [address] [place] [address] 15075 PCP - General Internal Medicine 01/23/23 documented as of this encounter
--- OUTSIDE RECORDS SUMMARY | 2025-02-02 14:40 | XMS_ITS ---
Author Organization [facility] Address [address] [place] [address] Care Team Providers Care Commutator Presser Name Role Phone Abby Potter Primary Care Provider Charity Castro Unavailable [phone] Raisa Bach [phone] REASON FOR VISIT switched to Dr Marquez Encounters Encounter Location Date Provider Diagnosis [address] [address] 12/09/2024 Raisa Bach Plan Of Treatment Next Appt Details Provider Name:Charity Rohan Jimmy , 03/07/2025 09:15:00 AM, [address] [place], [address], Progress Notes * Adelina TAVAREZ ADOB:[birth year] (79 yo F)Acc No.[id number]:12/09/2024 Progress Note Patient:?Adelina TAVAREZ Provider:?Raisa Bach DPM :1945???Age:79 Y???Sex:Female D ate:12/09/2024 Address:[address] [place] [address] [place] Pcp:Abby Potter Subjective: * Chief Complaints: * [...] DPM Date:?0 12/09/2024 Generated for Carmelina baker/[place]/Jose on:?02/02/2025 02:40 PM EDT
--- OUTSIDE RECORDS SUMMARY | 2025-02-02 14:40 | XMS_ITS | Encounter Summary ---
Author Organization [facility] Address [address] [place] [address] Care Team Providers Care Computer Graphics Illustrator Name Role Phone Lavell Marcos MD Primary Care Provider [phone] Jennifer Sylvester MD Primary Care Provider [phone] [facility], Pcp Primary Care Provider Unavailabl e Encounter Details Date Type Department Care Team Description 09/12/2014 Digital Operations Analyst Report Medical Records [address] [place] [address] [place] [address] [place] [address] Social History Tobacco Use Types Packs/Day Years [...] filedocumented in this encounter Care Teams Computer Graphics Illustrator Relationship Specialty Start Date End Date Lavell Marcos MD [address] [place] [address] 48213 PCP - General 04/06/07 02/08/21 Jennifer Sylvester MD [address] [place] [address] 59[address] PCP - General Internal Medicine 02/09/21 01/22/23 [facility], Pcp [address] [place] [address] 09297 PCP - General Internal Medicine 01/23/23 documented as of this encounter
--- OUTSIDE RECORDS SUMMARY | 2025-02-02 14:40 | XMS_ITS | Encounter Summary ---
Author Organization [facility] Address [address] [place] [address] Care Team Providers Care Book Repairer Name Role Phone Lavell Marcos MD Primary Care Provider Jennifer Sylvester MD Primary Care Provider [phone] [facility], Pcp Primary Care Provider [facility] e Encounter Details Date Type Department Care Team Description 07/15/2014 Flight Reservations Manager Report Medical Records [address] [place], [place] [phone] Rich Beatty Social History Tobacco Use Types [...] filedocumented in this encounter Care Teams Book Repairer Relationship Specialty Start Date End Date Lavell Marcos MD [address] [place] [address] 51330 PCP - General 04/06/07 02/08/21 Jennifer Sylvester MD [address] [place] [address] 37605 PCP - General Internal Medicine 02/09/21 01/22/23 [facility], Pcp [address] [place] [address] 68853 PCP - General Internal Medicine 01/23/23 documented as of this encounter
--- OUTSIDE RECORDS SUMMARY | 2025-02-02 14:40 | XMS_ITS | Encounter Summary ---
Author Organization [facility] Address [address] [place] [address] Care Team Providers Care Debug Technician Name Role Phone Lavell Marcos MD Primary Care Provider [phone] Jennifer Sylvester MD Primary Care Provider [phone] [facility], Pcp Primary Care Provider Unavailabl e Encounter Details Date Type Department Care Team Description 01/16/2018 Dye Range Operator Report Medical Records [address] [place] [address] Reji White MD [address] [place] [address] 38327 Social History Tobacco Use Types Packs/Day Years [...] on filedocumented in this encounter Care Teams Debug Technician Relationship Specialty Start Date End Date Lavell Marcos MD [address] [place] [address] 066[address] PCP - General 04/06/07 02/08/21 Jennifer Sylvester MD [address] [place] [address] 41908 PCP - General Internal Medicine 02/09/21 01/22/23 [facility], Pcp [address] [place] [address] 07401 PCP - General Internal Medicine 01/23/23 documented as of this encounter
--- OUTSIDE RECORDS SUMMARY | 2025-02-02 14:40 | XMS_ITS | Referral Summary ---
Author Organization [facility] Address [address] [place] [address] Care Team Providers Care Production Scheduler Name Role Phone Abby Potter Primary Care Provider [phone] Encounters Date Type Department Care Team Description 12/14/2024 9:30 AM EST Clinical Support [facility] [address] [place] [address] 84451 Recovery Operator Helper: Deanna Miller LPN Age-related osteoporosis without current pathological fracture (Primary Dx) 12/01/2024 myChart Message [facility] [address] [place] [address] [phone] Recovery Operator Helper: Carlos Diop MD Low potassium from Last [...] Info) Description 03/03/2025 9:30 AM EDT Follow-Up [facility] [address] [place] [address] Recovery Operator Helper: Carlos Diop MD [address] [place] [address] 06/15/2025 9:00 AM EDT Clinical Support [facility] [address] [place] [address] 83758 Recovery Operator Helper: Marlena Hurst Procedures * Due to [place] [employer] law, this organization might not be sharing [...] to Health Maintenance Results * Due to [place] [employer] law, this organization might not be sharing negative HIV tests. * Vitamin D, 25-Hydroxy, Total, Immunoassay (11/10/2024 10:34 AM EST) Calcidiol+ercalc idiol 73 30 - 100 ng/mL 11/10/2024 11:44 PM EST [facility] Comment: Vitamin D Status ? 25-OH Vitamin D: Deficiency: ?<20 ng/mL Insufficiency: ? 20 - 29 ng/mL Optimal: ? > or = 30 ng/mL For 25-OH Vitamin D testing on patients on D2-supplementation and patients for whom quantitation of D2 and D3 fractions is required, the QuestAssureD(TM) 25-OH VIT D, (D2,D3), LC/MS/MS is recommended: order code 42582 (patients >2yrs). See Note 1 Note 1 For additional information, please refer to http://education.Plumzi/faq/HSY878 (This link is being provided for informational/ educational purposes only.) Blood Structure of peripheral vein / Unknown 11/10/2024 10:34 AM EST 11/10/2024 8:47 PM EST Narrative [facility] - 11/10/2024 11:45 PM EST FASTING:NO us Lacey Patel MD LAB BLOOD ORDERABLES Final Re sult [facility] [address] [facility] 3rd Floor, [place] [address], [facility] [address] [place] [address] * CBC (11/10/2024 10:34 AM EST) White Blood Cell Count 7.7 3.8 - 10.8 Thousand/ uL 11/10/2024 9:43 PM EST [facility] Red Blood Cell Count 4.13 3.80 - 5.10 Million/u L 11/10/2024 9:43 PM EST [facility] Hemoglobin 12.0 11.7 - 15.5 g/dL 11/10/2024 9:43 PM EST [facility] Hematocrit 36.7 35.0 - 45.0 % 11/10/2024 9:43 PM EST [facility] MCV 88.9 80.0 - 100.0 fL 11/10/2024 9:43 PM EST [employer] MCH 29.1 27.0 - 33.0 pg 11/10/2024 9:43 PM EST [employer] MCHC 32.7 32.0 - 36.0 g/dL 11/10/2024 9:43 PM EST [employer] [employer] Comment: For adults, a slight decrease in the calculated MCHC value (in the range of 30 to 32 g/dL) is most likely not clinically significant; however, it should be interpreted with caution in correlation with other red cell parameters and the patient's clinical condition. RDW 12.8 11.0 - 15.0 % 11/10/2024 9:43 PM EST [employer] Platelet Count 285 140 - 400 Thousand/ uL 11/10/2024 9:43 PM EST [facility] MPV 9.5 7.5 - 12.5 fL 11/10/2024 9:43 PM EST [employer] Blood Structure of peripheral vein / Unknown 11/10/2024 10:34 AM EST 11/10/2024 8:23 PM EST Narrative [facility] - 11/10/2024 11:45 PM EST FASTING:NO Lacey Patel MD LAB BLOOD ORDERABLES Final Re sult Performing Organization Address City/[facility]/ZIP Co de Phone Number [facility] [address] [place] [address], [place] [address], [place] [phone] [facility] [address] [address] * Phosphorus (11/10/2024 10:34 AM EST) Phosphate 2.5 2.1 - 4.3 mg/dL 11/10/2024 11:36 PM EST [employer] Blood Structure of peripheral vein / Unknown 11/10/2024 10:34 AM EST 11/10/2024 8:47 PM EST Narrative [facility] - 11/10/2024 11:45 PM EST FASTING:NO Lacey Patel MD LAB BLOOD ORDERABLES Final Re sult [facility] [address], [place] [address], [place] [phone] [facility] [address] [place] [address] * Magnesium (11/10/2024 10:34 AM EST) Magnesium 2.0 1.5 - 2.5 mg/dL 11/10/2024 11:36 PM EST [facility] Blood Structure of peripheral vein / Unknown 11/10/2024 10:34 AM EST 11/10/2024 8:47 PM EST Narrative [facility] - 11/10/2024 11:45 PM EST FASTING:NO Lacey Patel MD LAB BLOOD ORDERABLES Final Re sult [facility] [address], [place] [address], [place] [phone] [facility] [address] [place] [address] * (ABNORMAL) Comprehensive Metabolic Panel (11/10/2024 10:34 AM EST) Glucose 92 65 - 139 mg/dL 11/10/2024 11:36 PM EST [facility] Comment: ? Non-fasting reference interval BUN 10 7 - 25 mg/dL 11/10/2024 11:36 PM [facility] Creatinine 0.73 0.60 - 1.00 mg/dL 11/10/2024 11:36 PM [facility] eGFR 85 > OR = 60 mL/min/1. 73m2 11/10/2024 11:36 PM [facility] Bun/Creatinine Ratio SEE NOTE: 6 - 22 (calc) 11/10/2024 11:36 PM [facility] Comment: ?? Not Reported: BUN and Creatinine are within ?? reference range. ? Sodium 140 135 - 146 mmol/L 11/10/2024 11:36 PM [facility] Potassium 3.3(L) 3.5 - 5.3 mmol/L 11/10/2024 11:36 PM [facility] Chloride 105 98 - 110 mmol/L 11/10/2024 11:36 PM EST [facility] Carbon Dioxide 26 20 - 32 mmol/L 11/10/2024 11:36 PM EST [facility] Calcium 9.2 8.6 - 10.4 mg/dL 11/10/2024 11:36 PM EST [facility] Protein, Total 6.2 6.1 - 8.1 g/dL 11/10/2024 11:36 PM EST [facility] Albumin 4.2 3.6 - 5.1 g/dL 11/10/2024 11:36 PM EST [facility] Globulin 2.0 1.9 - 3.7 g/dL (calc) 11/10/2024 11:36 PM EST [facility] Albumin/Globuli n Ratio 2.1 1.0 - 2.5 (calc) 11/10/2024 11:36 PM EST [facility] Bilirubin, Total 1.2 0.2 - 1.2 mg/dL 11/10/2024 11:36 PM EST [facility] Alkaline Phosphatase 62 37 - 153 U/L 11/10/2024 11:36 PM EST [facility] AST 17 10 - 35 U/L 11/10/2024 11:36 PM EST [facility] ALT 9 6 - 29 U/L 11/10/2024 11:36 PM EST [facility] Blood Structure of peripheral vein / Unknown 11/10/2024 10:34 AM EST 11/10/2024 8:47 PM EST Narrative [facility] - 11/10/2024 11:45 PM EST FASTING:NO Lacey Patel MD LAB BLOOD ORDERABLES Final Re sult [facility] [address] [facility] 3rd Floor, [place] [address], [facility] [address] [place] [address] * Dexa Scan (10/31/2023) Anatomical Region Laterality Modality Other 10/31/2023 us Onbase Scan [facility] MAINTENANCE Final Resu lt from Last 3 Months or Most Recently Relevant to Health Maintenance Insurance MEDICARE [facility] Care Teams Production Scheduler Relationship Specialty Start Date End Date Abby Potter [address] [place] [address] [place] [address] PCP - General Internal Medicine 04/14/24
--- OUTSIDE RECORDS SUMMARY | 2025-02-02 14:40 | XMS_ITS | Encounter Summary ---
Author Organization [facility] Address [address] [place] [address] Care Team Providers Care Financial Coordinator Name Role Phone Jennifer Sylvester MD Primary Care Provider [phone] [facility], Pcp Primary Care Provider Unavailabl e Reason for Visit * Reason Onset Date Comments Mychart Rx Refill 06/26/2021 Encounter Details Date Type Department Care Team Description 06/26/2021 Refill Adult Medicine [address] [phone] Jennifer Sylvester MD [address] [place] [address] [phone] Mychart Rx Refill Social History Tobacco Use [...] Does patient have an upcoming appointment? Yes [id number] (THE MEDICATION REQUESTED IS ON THE MED [...] / Plan: [place] / Product Type: MEDICARE [id number] documented in this encounter Plan of Treatment Not on file documented as of this encounter Visit Diagnoses Not on filedocumented in this encounter Care Teams Financial Coordinator Relationship Specialty Start Date End Date Jennifer Sylvester MD [address] [place] [address] PCP - General Internal Medicine 02/09/21 01/22/23 [facility] [address] [place] [address] PCP - General Internal Medicine 01/23/23 documented as of this encounter
--- OUTSIDE RECORDS SUMMARY | 2025-02-02 14:40 | XMS_ITS | Encounter Summary ---
Author Organization [facility] Address [address] [place] [address] Care Team Providers Care Forest Worker Name Role Phone Lavell Marcos MD Primary Care Provider [phone] Jennifer Sylvester MD Primary Care Provider [phone] [facility] [place] [facility], Pcp Primary Care Provider Unavailabl e Encounter Details Date Type Department Care Team Description 04/22/2014 Career Coordinator Report Medical Records [address] [place] [address] 49[address] Eduardo Lino MD Social History Tobacco Use [...] on filedocumented in this encounter Care Teams Forest Worker Relationship Specialty Start Date End Date Lavell Marcos MD [address] [place] [address] 46744 PCP - General 04/06/07 02/08/21 Jennifer Sylvester MD [address] [place] [address] 49277 PCP - General Internal Medicine 02/09/21 01/22/23 [facility], Pcp [address] [place] [address] 31802 PCP - General Internal Medicine 01/23/23 documented as of this encounter
--- OUTSIDE RECORDS SUMMARY | 2025-02-02 14:40 | XMS_ITS | Encounter Summary ---
Author Organization [facility] Address [address] [place] [address] Care Team Providers Care Generation Technician Name Role Phone Lavell Marcos MD Primary Care Provider Jennifer Sylvester MD Primary Care Provider [phone] [facility], Pcp Primary Care Provider Unavailabl e Encounter Details Date Type Department Care Team Description 05/13/2014 Pet Sitting Report Medical Records [address] [place] [address] 777[address] Eduardo Lino MD Social History Tobacco Use [...] on filedocumented in this encounter Care Teams Generation Technician Relationship Specialty Start Date End Date Lavell Marcos MD [address] [place] [address] 56894 PCP - General 04/06/07 02/08/21 Jennifer Sylvester MD [address] [place] [address] 86332 PCP - General Internal Medicine 02/09/21 01/22/23 [facility], Pcp [address] [place] [address] 98241 PCP - General Internal Medicine 01/23/23 documented as of this encounter
--- OUTSIDE RECORDS SUMMARY | 2025-02-02 14:40 | XMS_ITS | Encounter Summary ---
Author Organization [facility] Address [address] [place] [address] Care Team Providers Care Treasury Associate Name Role Phone Lavell Marcos MD Primary Care Provider Jennifer Sylvester MD Primary Care Provider [phone] [facility], Pcp Primary Care Provider Unavailabl e Encounter Details Date Type Department Care Team Description 10/04/2014 Hereditary Cancer Qu iz Results Medical Records [address] [place], [place] [id number] Abstract, Provider Social History Tobacco Use Types [...] on filedocumented in this encounter Care Teams Treasury Associate Relationship Specialty Start Date End Date Lavell Marcos MD [address] [place] [address] 90499 PCP - General 04/06/07 02/08/21 Jennifer Sylvester MD [address] [place] [address] 29882 PCP - General Internal Medicine 02/09/21 01/22/23 [facility], Pcp [address] [place] [address] 59914 PCP - General Internal Medicine 01/23/23 documented as of this encounter
--- OUTSIDE RECORDS SUMMARY | 2025-02-02 14:40 | XMS_ITS | Encounter Summary ---
Author Organization [facility] Address [address] [place] [address] Care Team Providers Care In Service Educator Name Role Phone Lavell Marcos MD Primary Care Provider Jennifer Sylvester MD Primary Care Provider [phone] [facility], Pcp Primary Care [facility] Encounter Details Date Type Department Care Team Description 04/08/2014 Corporate Safety Director Report Medical Records [address] [place] [address]58 Rich Beatty Social History Tobacco Use Types [...] on filedocumented in this encounter Care Teams In Service Educator Relationship Specialty Start Date End Date Lavell Marcos MD [address] [place] [address] 46112 PCP - General 04/06/07 02/08/21 Jennifer Sylvester MD [address] [place] [address] 48836 PCP - General Internal Medicine 02/09/21 01/22/23 [facility], Pcp [address] [place] [address] 24374 PCP - General Internal Medicine 01/23/23 documented as of this encounter
--- OUTSIDE RECORDS SUMMARY | 2025-02-02 14:40 | XMS_ITS | Encounter Summary ---
Author Organization [facility] Address [address] [place] [address] Care Team Providers Care Assistant Sales Center Manager Name Role Phone Jennifer Sylvester MD Primary Care Provider [phone] [facility], Pcp Primary Care Provider Unavailabl e Encounter Details Date Type Department Care Team Description 02/22/2021 Solar Installation Crew Supervisor Report Medical Records [address] [place] [address]98[address] Melyssa Garcia MD Social History Tobacco Use [...] filedocumented in this encounter Care Teams Assistant Sales Center Manager Relationship Specialty Start Date End Date Jennifer Sylvester MD [address] [place] [address] [phone] PCP - General Internal Medicine 02/09/21 01/22/23 [facility], Pcp [address] [place] [address] 51534 PCP - General Internal Medicine 01/23/23 documented as of this encounter
--- OUTSIDE RECORDS SUMMARY | 2025-02-02 14:40 | XMS_ITS | Encounter Summary ---
Author Organization [facility] Address [address] [place] [address] Care Team Providers Care Occ Med Physician Name Role Phone Lavell Marcos MD Primary Care Provider [phone] Jennifer Sylvester MD Primary Care Provider [phone] [facility], Pcp Primary Care Provider Unavailabl e Encounter Details Date Type Department Care Team Description 11/23/2010 Accounting Administrator Report Medical Records [address] [place] [address] [facility] [address] [place] [address] Social History Tobacco Use Types Packs/Day Years [...] on filedocumented in this encounter Care Teams Occ Med Physician Relationship Specialty Start Date End Date Lavell Marcos MD [address] [place] [address] 63028 PCP - General 04/06/07 02/08/21 Jennifer Sylvester MD [address] [place] [address] 82630 PCP - General Internal Medicine 02/09/21 01/22/23 [facility], Pcp [address] [place] [address] 32703 PCP - General Internal Medicine 01/23/23 documented as of this encounter
--- OUTSIDE RECORDS SUMMARY | 2025-02-02 14:40 | XMS_ITS | Encounter Summary ---
Author Organization [facility] Address [address] [place] [address] Care Team Providers Care Customs Port Director Name Role Phone TariqMarleeelidia Marc Primary Care Provider [phone] Reason for Visit * Reason Onset Date Comments PAC Patient Request Call Back 06/08/2024 Encounter Details Date Type Department Care Team (Late st Contact Info) Description 06/08/2024 Telephone [facility] [address] [place] [address] 21534 Telephone Intake, Staff PAC Patient Request Call [...] for 9am. Patient can be reached at [phone]. Thank you - PAC documented in this encounter Plan of Treatment Upcoming Encounters Date Type Department Care Team (Late st Contact Info) Description 03/03/2025 9:30 AM EDT Follow-Up [facility] [address] [place] [address] Sorting Supervisor: Carlos Diop MD [address] [place] [address] 06/15/2025 9:00 AM EDT Clinical Support [facility] [address] [place] [address] Sorting Supervisor: Marlena Hurst documented as of this encounter Visit Diagnoses Not on filedocumented in this encounter Care Teams Customs Port Director Relationship Specialty Start Date End Date Abby Potter [address] [place] [address] [place] [address] PCP - General Internal Medicine 04/14/24 documented as of this encounter
--- OUTSIDE RECORDS SUMMARY | 2025-02-02 14:40 | XMS_ITS | Encounter Summary ---
Author Organization [facility] Address [address] [place] [address] Care Team Providers Care Foreclosure Field Inspector Name Role Phone Jennifer Sylvester MD Primary Care Provider [phone] [facility], Pcp Primary Care Provider Unavailletty e Encounter Details Date Type Department Care Team Description 02/26/2021 Bread Oven Operator Report Medical Records [address] [place] [address]78 Bib Sandoval MD Social History Tobacco Use [...] have Coronavirus / COVID-19? No / Unsure 02/28/2021 10:04 AM EDT documented as of this encounter Plan of Treatment Not on file documented as of this encounter Visit Diagnoses Not on filedocumented in this encounter Care Teams Foreclosure Field Inspector Relationship Specialty Start Date End Date Jennifer Sylvester MD [address] [place] [address] [phone] PCP - General Internal Medicine 02/09/21 01/22/23 [facility], Pcp [address] [place] [address] 538[address] PCP - General Internal Medicine 01/23/23 documented as of this encounter
--- OUTSIDE RECORDS SUMMARY | 2025-02-02 14:40 | XMS_ITS | Encounter Summary ---
Author Organization [facility] Address [address] [place] [address] Care Team Providers Care Horseradish Maker Name Role Phone Laevll Marcos MD Primary Care Provider Jennifer Sylvester MD Primary Care Provider [phone] [facility], Pcp Primary Care Provider [facility] Encounter Details Date Type Department Care Team Description 04/28/2014 Packing Room Worker Report Medical Records [address] [place] [address] Rich Beatty Social History Tobacco Use Types [...] on filedocumented in this encounter Care Teams Horseradish Maker Relationship Specialty Start Date End Date Lavell Marcos MD [address] [place] [address]287 PCP - General 04/06/07 02/08/21 Jennifer Sylvester MD [address] [place] [address] 42426 PCP - General Internal Medicine 02/09/21 01/22/23 [facility], Pcp [address] [place] [address] 85918 PCP - General Internal Medicine 01/23/23 documented as of this encounter
--- OUTSIDE RECORDS SUMMARY | 2025-02-02 14:40 | XMS_ITS | Encounter Summary ---
Author Organization Formerly [facility] Address [address] [place] [address] Care Team Providers Care Labeling Strategist Name Role Phone Lavell Marcos MD Primary Care Provider Jennifer Sylvester MD Primary Care Provider [phone] [facility], Pcp Primary Care Provider Unavailabl e Reason for Visit * Reason Onset Date Comments Medication 09/11/2018 Encounter Details Date Type Department Care Team Description 09/11/2018 Telephone Pulmonology - [address] [place] [address] Eduardo Lino MD Medication Social History Tobacco Use Types Packs/Day Years [...] Telephone Encounter - Eduardo Lino MD - 09/11/2018 4:51 PM EST OK PRINTED * Telephone Encounter - Ashwin Early M.A. - 09/11/2018 4:25 PM EST Spoke to patient she said she wants a smaller nebulizer,and needs a script from the doctor to get one. * Telephone Encounter - Griselda Tubbs - 09/11/2018 2:09 PM EST Patient wants to speak with ashwin regarding her nebulizer and medication, Please call documented in this encounter Plan of Treatment Not on file documented as of this encounter Visit Diagnoses Not on filedocumented in this encounter Care Teams Labeling Strategist Relationship Specialty Start Date End Date Lavell Marcos MD [address] [place] [address] PCP - General 04/06/07 02/08/21 Jennifer Sylvester MD [address] [place] [address] PCP - General Internal Medicine 02/09/21 01/22/23 [facility], [address] [address] PCP - General Internal Medicine 01/23/23 documented as of this encounter
--- OUTSIDE RECORDS SUMMARY | 2025-02-02 14:40 | XMS_ITS | Encounter Summary ---
Author Organization [facility] Address [address] [place] [address] Care Team Providers Care Fish Cleaner Machine Tender Name Role Phone Lavell Marcos MD Primary Care Provider [phone] Jennifer Sylvester MD Primary Care Provider [phone] [facility], Pcp Primary Care Provider [facility] Encounter Details Date Type Department Care Team Description 06/01/2014 Pt. Non Urgent Medical Question Adult Medicine [facility] [address] [place] [address] Lavell Marcos MD [address] [place] [address] Social History Tobacco Use Types Packs/Day Years [...] on filedocumented in this encounter Care Teams Fish Cleaner Machine Tender Relationship Specialty Start Date End Date Lavell Marcos MD [address] [place] [address] PCP - General 04/06/07 02/08/21 Jennifer Sylvester MD [address] [place] [address] PCP - General Internal Medicine 02/09/21 01/22/23 [facility], [address] [address] PCP - General Internal Medicine 01/23/23 documented as of this encounter
--- OUTSIDE RECORDS SUMMARY | 2025-02-02 14:40 | XMS_ITS | Encounter Summary ---
Author Organization [facility] Address [address] [place] [address] Care Team Providers Care Statistical Machine Mechanic Name Role Phone Lavell Marcos MD Primary Care Provider [phone] Jennifer Sylvester MD Primary Care Provider [phone] [facility], Pcp Primary Care Provider [facility] Encounter Details Date Type Department Care Team Description 11/02/2018 Wrecker Operator Report Medical Records [address] [place] [address] Abstract, Provider Social History Tobacco Use Types [...] on filedocumented in this encounter Care Teams Statistical Machine Mechanic Relationship Specialty Start Date End Date Lavell Marcos MD [address] [place] [address] PCP - General 04/06/07 02/08/21 Jennifer Sylvester MD [address] [place] [address] [phone] PCP - General Internal Medicine 02/09/21 01/22/23 [facility], Pcp [address] [place] [address] PCP - General Internal Medicine 01/23/23 documented as of this encounter
--- OUTSIDE RECORDS SUMMARY | 2025-02-02 14:40 | XMS_ITS | Encounter Summary ---
Author Organization [facility] Address [address] [place] [address] Care Team Providers Care Commercial Appraiser Name Role Phone Lavell Marcos MD Primary Care Provider [phone] Jennifer Sylvester MD Primary Care Provider [phone] [facility], Pcp Primary Care Provider Unavailabl e Encounter Details Date Type Department Care Team Description 06/30/2014 Senior Javascript Developer Report Medical Records [address] [place] [address] Maggy Betancur Social History Tobacco Use Types [...] on filedocumented in this encounter Care Teams Commercial Appraiser Relationship Specialty Start Date End Date Lavell Marcos MD [address] [place] [address] PCP - General 04/06/07 02/08/21 Jennifer Sylvester MD [address] [place] [address] PCP - General Internal Medicine 02/09/21 01/22/23 [facility], Pcp [address] [place] [address] PCP - General Internal Medicine 01/23/23 documented as of this encounter
--- OUTSIDE RECORDS SUMMARY | 2025-02-02 14:40 | XMS_ITS | Encounter Summary ---
Author Organization [facility] Address [address] [place] [address] Care Team Providers Care Packer Name Role Phone Lavell Marcos MD Primary Care Provider Jennifer Sylvester MD Primary Care Provider [phone] [facility], Pcp Primary Care Provider Unavailabl e Encounter Details Date Type Department Care Team Description 11/09/2010 Exhauster Engineer Report Medical Records [address] [place] [address] Rik Bauer, PAYossiC Social History Tobacco Use [...] on filedocumented in this encounter Care Teams Packer Relationship Specialty Start Date End Date Lavell Marcos MD [address] [place] [address] PCP - General 04/06/07 02/08/21 Jennifer Sylvester MD [address] [place] [address] PCP - General Internal Medicine 02/09/21 01/22/23 [facility], Pcp [address] [place] [address] PCP - General Internal Medicine 01/23/23 documented as of this encounter
--- OUTSIDE RECORDS SUMMARY | 2025-02-02 14:40 | XMS_ITS | Encounter Summary ---
Author Organization [facility] Address [address] [place] [address] Care Team Providers Care Education Professional Name Role Phone Lavell Marcos MD Primary Care Provider Jennifer Sylvester MD Primary Care Provider [phone] [facility], Pcp Primary Care Provider Unavailabl e Encounter Details Date Type Department Care Team Description 06/14/2014 Hospital Medical Records [address] [place] [address] Augie Braga MD Social History Tobacco Use [...] on filedocumented in this encounter Care Teams Education Professional Relationship Specialty Start Date End Date Lavell Marcos MD [address] [place] [address] PCP - General 04/06/07 02/08/21 Jennifer Sylvester MD [address] [place] [address] PCP - General Internal Medicine 02/09/21 01/22/23 [facility], Pcp [address] [place] [address] PCP - General Internal Medicine 01/23/23 documented as of this encounter
--- OUTSIDE RECORDS SUMMARY | 2025-02-02 14:40 | XMS_ITS | Encounter Summary ---
Author Organization [facility] Address [address] [place] [address] Care Team Providers Care Seed Technician Name Role Phone Lavell Marcos MD Primary Care Provider [phone] Jennifer Sylvester MD Primary Care Provider [phone] [facility], Pcp Primary Care Provider [facility] e Encounter Details Date Type Department Care Team Description 04/14/2014 Desizing Pad Operator Report Medical Records [address] [place] [address] Rich Beatty Social History Tobacco Use Types [...] on filedocumented in this encounter Care Teams Seed Technician Relationship Specialty Start Date End Date Lavell Marcos MD [address] [place] [address] PCP - General 04/06/07 02/08/21 Jennifer Sylvester MD [address] [place] [address] PCP - General Internal Medicine 02/09/21 01/22/23 [facility], Pcp [address] [place] [address] PCP - General Internal Medicine 01/23/23 documented as of this encounter
--- OUTSIDE RECORDS SUMMARY | 2025-02-02 14:40 | XMS_ITS | Encounter Summary ---
Author Organization [facility] Address [address] [place] [address] Care Team Providers Care Farm Labor Contractor Name Role Phone Lavell Marcos MD Primary Care Provider [phone] Jennifer Sylvester MD Primary Care Provider [phone] [facility], Pcp Primary Care Provider Unavailabl e Reason for Referral * - Authorized/Booked Specialty Diagnoses / Procedures Referred By Contjose rodríguez Referred To Contact Endocrinology Diagnoses Palpitations Mixed hyperlipidemia Procedures REFERRAL TO ENDOCRINOLOGY Lavell Marcos MD [address] [place] [address] [facility] [place] [address] Referral ID Status Reason Start Date Expiration Date V isits Requested Visits Authorized NOT REQUIRED Authorized/ Booked 06/27/2014 06/27/2015 1 1 Encounter Details Date Type Department Care Team Description 06/23/2014 Pt. Non Urgent Medical [place] [address] Ciera Real MD Palpitations; Mixed hyperlipidemia Social [...] hyperlipidemia documented in this encounter Care Teams Farm Labor Contractor Relationship Specialty Start Date End Date Lavell Marcos MD [address] [place], [place] [phone] PCP - General 04/06/07 02/08/21 Jennifer Sylvester MD [address] [place] [address] PCP - General Internal Medicine 02/09/21 01/22/23 [facility], [address] [address] PCP - General Internal Medicine 01/23/23 documented as of this encounter
--- OUTSIDE RECORDS SUMMARY | 2025-02-02 14:40 | XMS_ITS | Encounter Summary ---
Author Organization [facility] Address [address] [place] [address] Care Team Providers Care Chopper Operator Name Role Phone Lavell Marcos MD Primary Care Provider [phone] Jennifer Sylvester MD Primary Care Provider [phone] [facility], Pcp Primary Care Provider [facility] e Encounter Details Date Type Department Care Team Description 08/12/2014 Sapphire Stylus Grinder Report Medical Records [address] [place] [address] Rich Beatty Social History Tobacco Use Types [...] on filedocumented in this encounter Care Teams Chopper Operator Relationship Specialty Start Date End Date Lavell Marcos MD [address] [place] [address] PCP - General 04/06/07 02/08/21 Jennifer Sylvester MD [address] [place] [address] PCP - General Internal Medicine 02/09/21 01/22/23 [facility], Pcp [address] [place] [address] PCP - General Internal Medicine 01/23/23 documented as of this encounter
--- OUTSIDE RECORDS SUMMARY | 2025-02-02 14:40 | XMS_ITS | Encounter Summary ---
Author Organization [facility] Address [address] [place] [address] Care Team Providers Care All Around Patternmaker Name Role Phone Lavell Marcos MD Primary Care Provider Jennifer Sylvester MD Primary Care Provider [phone] [facility], Pcp Primary Care Provider Unavailabl e Encounter Details Date Type Department Care Team Description 02/28/2014 Thiokol Operator Report Medical Records [address] [place] [address] Eduardo Lino MD Social History Tobacco Use [...] on filedocumented in this encounter Care Teams All Around Patternmaker Relationship Specialty Start Date End Date Lavell Marcos MD [address] [place] [address] PCP - General 04/06/07 02/08/21 Jennifer Sylvester MD [address] [place] [address] PCP - General Internal Medicine 02/09/21 01/22/23 [facility], Pcp [address] [place] [address] PCP - General Internal Medicine 01/23/23 documented as of this encounter
--- OUTSIDE RECORDS SUMMARY | 2025-02-02 14:40 | XMS_ITS | Encounter Summary ---
Author Organization [facility] Address [address] [place] [address] Care Team Providers Care Packager Name Role Phone Lavell Marcos MD Primary Care Provider [phone] Jennifer Sylvester MD Primary Care Provider [phone] [facility], Pcp Primary Care Provider Unavailabl e Encounter Details Date Type Department Care Team Description 06/24/2018 Orders Only Pulmonology - [address] [place] [address] Eduardo Lino MD Social History [...] on filedocumented in this encounter Care Teams Packager Relationship Specialty Start Date End Date Lavell Marcos MD [address] [place] [address] PCP - General 04/06/07 02/08/21 Jennifer Sylvester MD [address] [place] [address] PCP - General Internal Medicine 02/09/21 01/22/23 [facility], Pcp [address] [place] [address] PCP - General Internal Medicine 01/23/23 documented as of this encounter
--- OUTSIDE RECORDS SUMMARY | 2025-02-02 14:40 | XMS_ITS | Clinical Summary ---
Author Organization [facility] Address [address] [place] [address] Care Team Providers Care Hydroelectric Plant Operator Name Role Phone TariqAbby Monico Primary Care Provider [phone] Allergies Active Allergy Reactions Criticality Noted Date [...] Description 12/14/2024 9:30 AM EST Clinical Support [facility] [address] [place] [address] Washroom Attendant: Deanna Miller LPN Age-related osteoporosis without current pathological fracture (Primary Dx) 12/01/2024 myChart Message [facility] [address] [place] [address] Washroom Attendant: Carlos Diop MD Low potassium from Last [...] Info) Description 03/03/2025 9:30 AM EDT Follow-Up [facility] [address] [place] [address] Washroom Attendant: Carlos Diop MD [address] [place] [phone] 06/15/2025 9:00 AM EDT Clinical Support [facility] [address] [place] [address] Washroom Attendant: Marlena Hurst Health Maintenance Due Date Last Done Comments Hepatitis C Screening 1945 Medicare AWV 1946 COVID-19 Vaccine ( season) 2024 08/05/2023, 10/21/2021, 01/01/2021, Additional history exists Alcohol/Substance Use Screening 11/03/2024 Depression Screening and Follow-Up 11/03/2024 Fall Risk Screening 11/03/2024 Health Care Proxy Review 11/03/2024 Social Drivers of Health Annual Screening 11/03/2024 Influenza Vaccine (Season Ended) 2025 08/05/2023, 07/24/2022, 08/01/2021, Additional history exists DTaP,Tdap,and Td Vaccines (3 - Td or [...] complete this topic Procedures * Due to [place] state law, this organization might not be [...] to Health Maintenance Results * Due to [place] state law, this organization might not be sharing negative HIV tests. * Vitamin D, 25-Hydroxy, Total, Immunoassay (11/10/2024 10:34 AM EST) Calcidiol+ercalc idiol 73 30 - 100 ng/mL 11/10/2024 11:44 PM EST [facility] Comment: Vitamin D Status ? 25-OH Vitamin D: Deficiency: ?<20 ng/mL Insufficiency: ? 20 - 29 ng/mL Optimal: ? > or = 30 ng/mL For 25-OH Vitamin D testing on patients on D2-supplementation and patients for whom quantitation of D2 and D3 fractions is required, the QuestAssureD() 25-OH VIT D, (D2,D3), LC/MS/MS is recommended: order code 11335 (patients >2yrs). See Note 1 Note 1 For additional information, please refer to http://education.[employer]/faq/EIV851 (This link is being provided for informational/ educational purposes only.) Blood Structure of peripheral vein / Unknown 11/10/2024 10:34 AM EST 11/10/2024 8:47 PM EST Narrative [facility] - 11/10/2024 11:45 PM EST FASTING:NO Lacey Patel MD LAB BLOOD ORDERABLES Final Re sult [facility] [address] [facility] 3rd Floor, [place] [address], [employer] [facility] [address] [place] [address] * CBC (11/10/2024 10:34 AM EST) Pathologist [facility] White Blood Cell Count 7.7 3.8 - 10.8 Thousand/ uL 11/10/2024 9:43 PM EST [facility] Red Blood Cell Count 4.13 3.80 - 5.10 Million/u L 11/10/2024 9:43 PM EST [employer] [facility] Hemoglobin 12.0 11.7 - 15.5 g/dL 11/10/2024 9:43 PM EST [facility] Hematocrit 36.7 35.0 - 45.0 % 11/10/2024 9:43 PM EST [facility] MCV 88.9 80.0 - 100.0 fL 11/10/2024 9:43 PM EST [facility] MCH 29.1 27.0 - 33.0 pg 11/10/2024 9:43 PM EST [facility] MCHC 32.7 32.0 - 36.0 g/dL 11/10/2024 9:43 PM EST [facility] Comment: For adults, a slight decrease in the calculated MCHC value (in the range of 30 to 32 g/dL) is most likely not clinically significant; however, it should be interpreted with caution in correlation with other red cell parameters and the patient's clinical condition. RDW 12.8 11.0 - 15.0 % 11/10/2024 9:43 PM EST [facility] Platelet Count 285 140 - 400 Thousand/ uL 11/10/2024 9:43 PM EST [facility] MPV 9.5 7.5 - 12.5 fL 11/10/2024 9:43 PM EST [facility] Blood Structure of peripheral vein / Unknown 11/10/2024 10:34 AM EST 11/10/2024 8:23 PM EST Narrative [facility] - 11/10/2024 11:45 PM EST FASTING:NO us Lacey Patel MD LAB BLOOD ORDERABLES Final Re sult Performing Organization Address City/[facility]/ZIP Co de Phone Number [facility] [address], [place] [address], [place] [phone] [employer] [address] [address] * Phosphorus (11/10/2024 10:34 AM EST) Phosphate 2.5 2.1 - 4.3 mg/dL 11/10/2024 11:36 PM EST [employer] [facility] Blood Structure of peripheral vein / Unknown 11/10/2024 10:34 AM EST 11/10/2024 8:47 PM EST Narrative [facility] - 11/10/2024 11:45 PM EST FASTING:NO us Lacey Patel MD LAB BLOOD ORDERABLES Final Re sult Performing Organization Address [facility] Co de Phone Number [facility] [address], [place] [address], [place] [phone] [employer] [address] [address] * Magnesium (11/10/2024 10:34 AM EST) Magnesium 2.0 1.5 - 2.5 mg/dL 11/10/2024 11:36 PM EST [employer] [facility] Blood Structure of peripheral vein / Unknown 11/10/2024 10:34 AM EST 11/10/2024 8:47 PM EST Narrative [facility] - 11/10/2024 11:45 PM EST FASTING:NO us Lacey Patel MD LAB BLOOD ORDERABLES Final Re sult [facility] [address] [facility] [address], [place] [address], [employer] [facility] [address] [place] [address] * (ABNORMAL) Comprehensive Metabolic Panel (11/10/2024 10:34 AM EST) Glucose 92 65 - 139 mg/dL 11/10/2024 11:36 PM EST [employer] [facility] Comment: ? Non-fasting reference interval BUN 10 7 - 25 mg/dL 11/10/2024 11:36 PM EST [facility] Creatinine 0.73 0.60 - 1.00 mg/dL 11/10/2024 11:36 PM EST [facility] eGFR 85 > OR = 60 mL/min/1. 73m2 11/10/2024 11:36 PM [employer] Bun/Creatinine Ratio SEE NOTE: 6 - 22 (calc) 11/10/2024 11:36 PM [employer] Comment: ?? Not Reported: BUN and Creatinine are within ?? reference range. ? Sodium 140 135 - 146 mmol/L 11/10/2024 11:36 PM EST [facility] Potassium 3.3(L) 3.5 - 5.3 mmol/L 11/10/2024 11:36 PM [employer] [place] [employer] Chloride 105 98 - 110 mmol/L 11/10/2024 11:36 PM [employer] Carbon Dioxide 26 20 - 32 mmol/L 11/10/2024 11:36 PM [employer] Calcium 9.2 8.6 - 10.4 mg/dL 11/10/2024 11:36 PM [employer] Protein, Total 6.2 6.1 - 8.1 g/dL 11/10/2024 11:36 PM EST [facility] Albumin 4.2 3.6 - 5.1 g/dL 11/10/2024 11:36 PM [employer] Globulin 2.0 1.9 - 3.7 g/dL (calc) 11/10/2024 11:36 PM [employer] Albumin/Globuli n Ratio 2.1 1.0 - 2.5 (calc) 11/10/2024 11:36 PM EST [employer] [facility] Bilirubin, Total 1.2 0.2 - 1.2 mg/dL 11/10/2024 11:36 PM EST [employer] [facility] Alkaline Phosphatase 62 37 - 153 U/L 11/10/2024 11:36 PM EST [employer] [facility] AST 17 10 - 35 U/L 11/10/2024 11:36 PM EST [employer] [facility] ALT 9 6 - 29 U/L 11/10/2024 11:36 PM EST [employer] [facility] Blood Structure of peripheral vein / Unknown 11/10/2024 10:34 AM EST 11/10/2024 8:47 PM EST Narrative [facility] - 11/10/2024 11:45 PM EST FASTING:NO us Lacey Patel MD LAB BLOOD ORDERABLES Final Re sult [facility] [address] [facility] 3rd [address], [place] [address], [place] [phone] [employer] [facility] [address] [place] [address] * Dexa Scan (10/31/2023) Anatomical Region Laterality Modality Other 10/31/2023 us Onbase Scan [facility] Final Resu lt from Last 3 Months or Most Recently Relevant to Health Maintenance Insurance MEDICARE [facility] Care Teams Hydroelectric Plant Operator Relationship Specialty Start Date End Date Abby Potter [address] [place] [address] [place] [address] PCP - General Internal Medicine 04/14/24
--- OUTSIDE RECORDS SUMMARY | 2025-02-02 14:40 | XMS_ITS | Encounter Summary ---
Author Organization [facility] Address [address] [place] [address] Care Team Providers Care Patent Engineer Name Role Phone Lavell Harding MD Primary Care Provider [phone] Jennifer Sylvester MD Primary Care Provider [phone] [facility], Pcp Primary Care Provider Unavailabl e Reason for Referral * Non MARYAM (Routine) - Authorized/Booked Specialty Diagnoses / Procedures Referred By Olesya rodríguez Referred To Contact Gastroenterology Procedures REFERRAL TO GASTROENTEROLOGY Sam Santiago PA-C [address] [place] [address] [place] [address] Referral ID Status Reason Start Date Expiration Date V isits Requested Visits Authorized [id number] Authorized/B ooked 01/07/2018 01/07/2019 1 1 Reason for Visit * Reason Onset Date Comments REFERRAL 01/06/2018 Encounter Details Date Type Department Care Team Description 01/06/2018 Telephone [place] [address] Roger Erazo MD REFERRAL Social History Tobacco [...] nausea. She said she was seen at [facility]. Patient has a follow up with dr harding on 01/22/18. Can you place order so we can schedule Her? documented in this encounter Plan of Treatment Not on file documented as of this encounter Visit Diagnoses Not on filedocumented in this encounter Care Teams Patent Engineer Relationship Specialty Start Date End Date Lavell Harding MD [address] [place] [address] PCP - General 04/06/07 02/08/21 Jennifer Sylvester MD [address] [place] [address] PCP - General Internal Medicine 02/09/21 01/22/23 [facility], [address] [address] PCP - General Internal Medicine 01/23/23 documented as of this encounter
--- OUTSIDE RECORDS SUMMARY | 2025-02-02 14:40 | XMS_ITS | Encounter Summary ---
Author Organization Formerly [facility] Address [address] [place] [address] Care Team Providers Care Floor Worker Transfer [place] Name Role Phone Lavell Marcos MD Primary Care Provider Jennifer Sylvester MD Primary Care Provider [phone] [facility], Pcp Primary Care Provider [facility] Encounter Details Date Type Department Care Team Description 03/23/2014 Quantitative Analyst Report Medical Records [address] [place] [address] 54377 Augie Braga MD Social History Tobacco Use [...] on filedocumented in this encounter Care Teams Floor Worker Transfer [place] Relationship Specialty Start Date End Date Lavell Marcos MD [address] [place] [address] 71568 PCP - General 04/06/07 02/08/21 Jennifer Sylvester MD [address] [place] [address] 18284 PCP - General Internal Medicine 02/09/21 01/22/23 [facility], Pcp [address] [place] [address] 75678 PCP - General Internal Medicine 01/23/23 documented as of this encounter
--- OUTSIDE RECORDS SUMMARY | 2025-02-02 14:40 | XMS_ITS ---
Author Organization [facility] Address [address] [place] [address] Care Team Providers Care Dental Services Director Name Role Phone Abby Potter Primary Care Provider Charity Castro Unavailable [phone] Allergies Allergen (clinical drug ingredient) Drug/Non Drug [...] Calcium Not-Taking Flax Seed Oil Not-Hardy foster [place] 3 500 400 mg 1 capsule Orally Twice a day Not-Taking Pazeo Not-Taking Doxycycline Not-Taki samuel Crestor 10 mg Not-Hadry foster Atenolol 25 MG 1 tablet Orally Once a day Not-Taking Nystatin 476366 UNIT Orally Not-Taking Metoprolol Succinate ER Not-Taking [...] Ordered Date Performed Result Body Sit e 40036-ZRNMMSX NAIL, 6 OR MORE 12/09/2024 N/A 59529-Bgzwlxas Plate 12/09/2024 N/A Encounters Encounter Location Date Provider Diagnosis [facility] [address] [place] [address] 12/09/2024 Charity Black Tinea unguium B35.1 ; [...] Treatment Pending Test Test Name Order Date 00219-ITTSRRK NAIL, 6 OR MORE 12/09/2024 90995-Ukhjequo Plate 12/09/2024 Next Appt Details Follow Up: 2 Weeks,prn, Reas on: Provider Name:Charity Marquez , 03/07/2025 09:15:00 AM, [address] [place] [address], [phone], Procedure Notes * Category Sub-Category Detail [...] Motrin was recommended for pain or discomfort (11807) Anesthesia was accomplished TOP ICALLY with Lidocaine [...] use of a nail nipper and/or dremel-type jewel grinder, to a more viable healthy nail [...] to maintain effectiveness in symptomatic relief - 22260 Progress Notes * Adelina TAVAREZ ADOB:[birth year] (79 yo F)Acc No.[id number]:12/09/2024 Progress Note Patient:?EMLANIEAdelina A Provider:?Charity Marquez DPM :1945???Age:79 Y???Sex:Female D ate:12/09/2024 Address:[address] [place], [place] [phone] Pcp:Abby Potter Subjective: * Chief Complaints: * [...] chest - it was acid reflux 2018Stroke 08/2021[facility]- Broken Wrist - right 01/16/2023 * [...] yes, walking. ?Marital status: . 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 * Medications:?TakingCalcium M ultivitamin Atorvastatin Calcium 20 [...] times a weekMetoprolol Succinate ER Pazeo Nystatin 670397 UNIT Tablet Orally Crestor 10 mg Atenolol 25 MG Tablet 1 tablet Orally Once a day Doxycycline [place] 3 500 400 mg Capsule 1 capsule [...] Metoprolol Succinate ER Not-Taking/PRN Pazeo Not-Taking/PRN Nystatin 978007 UNIT Tablet Orally Not-Taking/PRN Crestor 10 mg Not-Taking/PRN Atenolol 25 MG Tablet 1 tablet Orally Once a day Not-Taking/PRN Doxycycline Not-Taking/PRN [place] 3 500 400 mg Capsule 1 capsule [...] - M79.675??? Plan: * Treatment: 2.?Tinea unguium?Procedure: 37101-FSZEWOA NAIL, 6 OR MORE * Procedures:?Debride Nail [...] use of a nail nipper and/or dremel-type jewel grinder, to a more viable healthy nail [...] to maintain effectiveness in symptomatic relief - 12648.?Nail Avulsion:?Location?Lateral nail border, T5.?Anesthesia?was accomplished TOPICALLY with [...] Motrin was recommended for pain or discomfort (24030).? * Procedure Codes:?23368 DEBRI DE NAIL, 6 OR MORE, Modifiers: XS 09041 Avulsion Plate, Modifiers: T5 * Preventive Medicine:? ??Screening/Special Tests:?Fall Risk?Screening:?No falls in the past year ?FALLS: Screening for Future Fall Risk?Have you had any falls with injury in the past year??No * Follow Up:?2 Weeks,prn * Images: * Sign off status: Completed true * Provider:?Charity Marquez DPM Date:?2024 Generated for Carmelina baker/Quincy/Jose on:?02/02/2025 02:40 PM EDT History and Physical Notes * [...]
--- OUTSIDE RECORDS SUMMARY | 2025-02-02 14:41 | XMS_ITS | Encounter Summary ---
Author Organization [facility] Address [address] [place] [address] Care Team Providers Care Neon Sign Installer Name Role Phone Lavell Marcos MD Primary Care Provider [phone] Jennifer Sylvester MD Primary Care Provider [phone] [facility], Pcp Primary Care Provider Unavailabl e Encounter Details Date Type Department Care Team Description 08/06/2017 Business Doc Medical Records [address] [place] [address] 42367 Abstract, Provider Social History Tobacco Use Types [...] on filedocumented in this encounter Care Teams Neon Sign Installer Relationship Specialty Start Date End Date Lavell Marcos MD [address] [place] [address] 80841 PCP - General 04/06/07 02/08/21 Jennifer Sylvester MD [address] [place] [address] [phone] PCP - General Internal Medicine 02/09/21 01/22/23 [facility], Pcp [address] [place] [address] 80409 PCP - General Internal Medicine 01/23/23 documented as of this encounter
--- OUTSIDE RECORDS SUMMARY | 2025-02-02 14:41 | XMS_ITS | Encounter Summary ---
Author Organization [facility] Address [address] [place] [address] Care Team Providers Care Food Supervisor Name Role Phone Lavell Marcos MD Primary Care Provider + [phone] Jennifer Sylvester MD Primary Care Provider [phone] [facility], Pcp Primary Care Provider Unavailabl e Encounter Details Date Type Department Care Team Description 09/10/2019 Old Medical Records Medical Records [address] [place] [address] 91885 Abstract, Provider Social History Tobacco Use Types [...] on filedocumented in this encounter Care Teams Food Supervisor Relationship Specialty Start Date End Date Lavell Marcos MD [address] [place] [address] 00682 PCP - General 04/06/07 02/08/21 Jennifer Sylvester MD [address] [place] [address] [phone] PCP - General Internal Medicine 02/09/21 01/22/23 [facility], Pcp [address] [place] [address] 77549 PCP - General Internal Medicine 01/23/23 documented as of this encounter
--- OUTSIDE RECORDS SUMMARY | 2025-02-02 14:41 | XMS_ITS | Encounter Summary ---
Author Organization [facility] Address [address] [place] [address] Care Team Providers Care Managing Director Atlas Name Role Phone Lavell Marcos MD Primary Care Provider [phone] Jennifer Sylvester MD Primary Care Provider [phone] [facility], Pcp Primary Care Provider Unavailabl e Encounter Details Date Type Department Care Team Description 02/23/2013 Import/Export Specialist Report Medical Records [address] [place] [address] 10827 Micheal Larsen Social History Tobacco Use Types Packs/Day Years [...] on filedocumented in this encounter Care Teams Managing Director Atlas Relationship Specialty Start Date End Date Lavell Marcos MD [address] [place] [address] [phone] PCP - General 04/06/07 02/08/21 Jennifer Sylvester MD [address] [place] [address] [phone] PCP - General Internal Medicine 02/09/21 01/22/23 [facility], Pcp [address] [place] [address] 52278 PCP - General Internal Medicine 01/23/23 documented as of this encounter
--- OUTSIDE RECORDS SUMMARY | 2025-02-02 14:41 | XMS_ITS | Encounter Summary ---
Author Organization [facility] Address [address] [place] [address] Care Team Providers Care Armature Winder Repairer Name Role Phone Lavell Marcos MD Primary Care Provider [phone] Jennifer Sylvester MD Primary Care Provider [phone] [facility], Pcp Primary Care Provider Unavailabl e Encounter Details Date Type Department Care Team Description 01/06/2020 Dock Superintendent Report Medical Records [address] [place] [address]996 Johnna Serna MD Social History Tobacco Use [...] on filedocumented in this encounter Care Teams Armature Winder Repairer Relationship Specialty Start Date End Date Lavell Marcos MD [address] [place] [address] 81137 PCP - General 04/06/07 02/08/21 Jennifer Sylvester MD [address] [place] [address] 01302 PCP - General Internal Medicine 02/09/21 01/22/23 [facility], Pcp [address] [place] [address] 17431 PCP - General Internal Medicine 01/23/23 documented as of this encounter
--- OUTSIDE RECORDS SUMMARY | 2025-02-02 14:41 | XMS_ITS | Encounter Summary ---
Author Organization [facility] Address [address] [place] [address] Care Team Providers Care Thermocouple Tester Name Role Phone Lavell Marcos MD Primary Care Provider [phone] Jennifer Sylvester MD Primary Care Provider [phone] [facility], Pcp Primary Care Provider [facility] e Encounter Details Date Type Department Care Team Description 02/16/2019 Hospital Medical Records [address] [place] [address]572 Isai Patel, [place] Social History Tobacco Use Types Packs/Day Years [...] on filedocumented in this encounter Care Teams Thermocouple Tester Relationship Specialty Start Date End Date Lavell Marcos MD [address] [place] [address] 04757 PCP - General 04/06/07 02/08/21 Jennifer Sylvester MD [address] [place] [address] 71760 PCP - General Internal Medicine 02/09/21 01/22/23 [facility], Pcp [address] [place] [address] [phone] PCP - General Internal Medicine 01/23/23 documented as of this encounter
--- OUTSIDE RECORDS SUMMARY | 2025-02-02 14:41 | XMS_ITS | Encounter Summary ---
Author Organization [facility] Address [address] [place] [address] Care Team Providers Care Marine Biologist Name Role Phone Lavell Marcos MD Primary Care Provider [phone] Jennifer Sylvester MD Primary Care Provider [phone] [facility], Pcp Primary Care Provider Unavailabl e Encounter Details Date Type Department Care Team Description 2019 Business Doc Medical Records [address] [place] [address] 45924 Abstract, Provider Social History Tobacco Use Types [...] on filedocumented in this encounter Care Teams Marine Biologist Relationship Specialty Start Date End Date Lavell Marcos MD [address] [place] [address] 44625 PCP - General 04/06/07 02/08/21 Jennifer Sylvester MD [address] [place] [address] [phone] PCP - General Internal Medicine 02/09/21 01/22/23 [facility], Pcp [address] [place] [address] 37291 PCP - General Internal Medicine 01/23/23 documented as of this encounter
--- OUTSIDE RECORDS SUMMARY | 2025-02-02 14:41 | XMS_ITS | Encounter Summary ---
Author Organization [facility] Address [address] [place] [address] Care Team Providers Care Gamma Facilities Operator Name Role Phone Laevll Marcos MD Primary Care Provider + [phone] Jennifer Sylvester MD Primary Care Provider [phone] [facility], Pcp Primary Care Provider Unavailabl e Encounter Details Date Type Department Care Team Description 04/29/2017 [facility] Medical Records [address] [place] [address] 81756 Abstract, Provider Social History Tobacco Use Types [...] on filedocumented in this encounter Care Teams Gamma Facilities Operator Relationship Specialty Start Date End Date Lavell Marcos MD [address] [place] [address] 23299 PCP - General 04/06/07 02/08/21 Jennifer Sylvester MD [address] [place] [address] [phone] PCP - General Internal Medicine 02/09/21 01/22/23 [facility], Pcp [address] [place] [address] 71069 PCP - General Internal Medicine 01/23/23 documented as of this encounter
--- OUTSIDE RECORDS SUMMARY | 2025-02-02 14:41 | XMS_ITS | Encounter Summary ---
Author Organization [facility] Address [address] [place] [address] Care Team Providers Care Labor Relations Officer Name Role Phone Lavell Marcos MD Primary Care Provider [phone] Jennifer Sylvester MD Primary Care Provider [phone] [facility], Pcp Primary Care Provider Unavailabl e Encounter Details Date Type Department Care Team Description 08/22/2017 Swatch Folder Report Medical Records [address] [place] [address] Penelope Geronimo MD [address] [place] [address] 58653 Social History Tobacco Use Types Packs/Day Years [...] on filedocumented in this encounter Care Teams Labor Relations Officer Relationship Specialty Start Date End Date Lavell Marcos MD [address] [place] [address] 04570 PCP - General 04/06/07 02/08/21 Jennifer Sylvester MD [address] [place] [address] 03012 PCP - General Internal Medicine 02/09/21 01/22/[address] [address] PCP - General Internal Medicine 01/23/23 documented as of this encounter
--- OUTSIDE RECORDS SUMMARY | 2025-02-02 14:41 | XMS_ITS | Encounter Summary ---
Author Organization [facility] Address [address] [place] [address] Care Team Providers Care Surgery Center Administrator Name Role Phone Jennifer Sylvester MD Primary Care Provider [phone] Count Includes [facility], Pcp Primary Care Provider Unavailletty e Encounter Details Date Type Department Care Team Description 08/06/2021 Hospital Medical Records [address] [place] [address] 51406 Souleymane Stearns MD Social History Tobacco Use [...] on filedocumented in this encounter Care Teams Surgery Center Administrator Relationship Specialty Start Date End Date Jennifer Sylvester MD [address] [place] [address] [phone] PCP - General Internal Medicine 02/09/21 01/22/23 Count Includes [facility], Pcp [address] [place] [address] [phone] PCP - General Internal Medicine 01/23/23 documented as of this encounter
--- OUTSIDE RECORDS SUMMARY | 2025-02-02 14:41 | XMS_ITS | Encounter Summary ---
Author Organization [facility] Address [address] [place] [address] Care Team Providers Care Clerical Proofreader Name Role Phone Lavell Marcos MD Primary Care Provider [phone] Jennifer Sylvester MD Primary Care Provider [phone] [facility], Pcp Primary Care Provider Unavailabl e Encounter Details Date Type Department Care Team Description 2019 Carpenter'S Assistant Report Medical Records [address] [place] [address] 63112 Reji White MD [address] [place] [address] 50843 Social History Tobacco Use Types Packs/Day Years [...] on filedocumented in this encounter Care Teams Clerical Proofreader Relationship Specialty Start Date End Date Lavell Marcos MD [address] [place] [address] 30733 PCP - General 04/06/07 02/08/21 Jennifer Sylvester MD [address] [place] [address] 19692 PCP - General Internal Medicine 02/09/21 01/22/23 [facility], Pcp [address] [place] [address] 30573 PCP - General Internal Medicine 01/23/23 documented as of this encounter
--- OUTSIDE RECORDS SUMMARY | 2025-02-02 14:41 | XMS_ITS | Encounter Summary ---
Author Organization [facility] Address [address] [place] [address] Care Team Providers Care Loan Specialist Name Role Phone Lavell Marcos MD Primary Care Provider Jennifer Sylvester MD Primary Care Provider [phone] [facility], Pcp Primary Care Provider Unavailabl e Encounter Details Date Type Department Care Team Description 06/07/2019 Clay Thrower Report Medical Records [address] [place] [address] 50926 Jose Cornejo MD Social History Tobacco Use [...] on filedocumented in this encounter Care Teams Loan Specialist Relationship Specialty Start Date End Date Lavell Marcos MD [address] [place] [address] 80513 PCP - General 04/06/07 02/08/21 Jennifer Sylvester MD [address] [place] [address] 98437 PCP - General Internal Medicine 02/09/21 01/22/23 [facility], Pcp [address] [place] [address] 46975 PCP - General Internal Medicine 01/23/23 documented as of this encounter
--- OUTSIDE RECORDS SUMMARY | 2025-02-02 14:41 | XMS_ITS | Encounter Summary ---
Author Organization [facility] Address [address] [place] [address] Care Team Providers Care Drum Maker Name Role Phone Lavell Marcos MD Primary Care Provider Jennifer Sylvester MD Primary Care Provider [phone] [facility], Pcp Primary Care Provider [facility] e Encounter Details Date Type Department Care Team Description 11/14/2011 Hospital Medical Records [address] [place] [address] 57055 Yazan Lang Social History Tobacco Use Types [...] on filedocumented in this encounter Care Teams Drum Maker Relationship Specialty Start Date End Date Lavell Marcos MD [address] [place] [address] 43784 PCP - General 04/06/07 02/08/21 Jennifer Sylvester MD [address] [place] [address] 72630 PCP - General Internal Medicine 02/09/21 01/22/23 [facility], Pcp [address] [place] [address] 17788 PCP - General Internal Medicine 01/23/23 documented as of this encounter
--- OUTSIDE RECORDS SUMMARY | 2025-02-02 14:41 | XMS_ITS | Encounter Summary ---
Author Organization [facility] Address [address] [place] [address] Care Team Providers Care Operations Officer Trust Department Name Role Phone Lavell Marcos MD Primary Care Provider Jennifer Sylvester MD Primary Care Provider [phone] [facility], Pcp Primary Care Provider Unavailabl e Encounter Details Date Type Department Care Team Description 02/04/2019 Accounting Systems Manager Report Medical Records [address] [place] [address] 30904 Raj Hardwick MD Social History Tobacco Use [...] on filedocumented in this encounter Care Teams Operations Officer Trust Department Relationship Specialty Start Date End Date Lavell Mracos MD [address] [place] [address] 53818 PCP - General 04/06/07 02/08/21 Jennifer Sylvester MD [address] [place] [address] 82914 PCP - General Internal Medicine 02/09/21 01/22/23 [facility], Pcp [address] [place] [address] 67546 PCP - General Internal Medicine 01/23/23 documented as of this encounter
--- OUTSIDE RECORDS SUMMARY | 2025-02-02 14:41 | XMS_ITS | Encounter Summary ---
Author Organization [facility] Address [address] [place] [address] Care Team Providers Care Compliance Assistant Name Role Phone Lavell Marcos MD Primary Care Provider [phone] Jennifer Sylvester MD Primary Care Provider [phone] [facility], Pcp Primary Care Provider Unavailabl e Encounter Details Date Type Department Care Team Description 10/14/2016 Pt. Non Urgent Medic al Question Gastroenterology - [address] [address] Roger Erazo MD Social History Tobacco Use [...] on filedocumented in this encounter Care Teams Compliance Assistant Relationship Specialty Start Date End Date Lavell Marcos MD [address] [place] [address] 30680 PCP - General 04/06/07 02/08/21 Jennifer Sylvester MD [address] [place] [address] 17524 PCP - General Internal Medicine 02/09/21 01/22/23 [facility], [address] [address] PCP - General Internal Medicine 01/23/23 documented as of this encounter
--- OUTSIDE RECORDS SUMMARY | 2025-02-02 14:41 | XMS_ITS | Encounter Summary ---
Author Organization [facility] Address [address] [place] [address] Care Team Providers Care Portrait Painter Name Role Phone Lavell Marcos MD Primary Care Provider [phone] Jennifer Sylvester MD Primary Care Provider [phone] [facility], Pcp Primary Care Provider Unavailabl e Encounter Details Date Type Department Care Team Description 01/14/2014 Signal Technician Report Medical Records [address] [place] [address] 76861 Eduardo Lino MD Social History Tobacco Use [...] on filedocumented in this encounter Care Teams Portrait Painter Relationship Specialty Start Date End Date Lavell Marcos MD [address] [place] [address] [phone] PCP - General 04/06/07 02/08/21 Jennifer Sylvester MD [address] [place] [address] 40738 PCP - General Internal Medicine 02/09/21 01/22/23 [facility], Pcp [address] [place] [address] 07384 PCP - General Internal Medicine 01/23/23 documented as of this encounter
--- OUTSIDE RECORDS SUMMARY | 2025-02-02 14:41 | XMS_ITS | Encounter Summary ---
Author Organization [facility] Address [address] [place] [address] Care Team Providers Care First Dyer Name Role Phone Lavell Marcos MD Primary Care Provider [phone] Jennifer Sylvester MD Primary Care Provider [phone] [facility], Pcp Primary Care Provider Unavailabl e Encounter Details Date Type Department Care Team Description 01/10/2017 Grid Maker Report Medical Records [address] [place] [address] 80352 Reji Whiet MD [address] [place] [address] 03229 Social History Tobacco Use Types Packs/Day Years [...] on filedocumented in this encounter Care Teams First Dyer Relationship Specialty Start Date End Date Lavell Marcos MD [address] [place] [address] 71046 PCP - General 04/06/07 02/08/21 Jennifer Sylvester MD [address] [place] [address] 18942 PCP - General Internal Medicine 02/09/21 01/22/23 [facility], Pcp [address] [place] [address] 52474 PCP - General Internal Medicine 01/23/23 documented as of this encounter
--- OUTSIDE RECORDS SUMMARY | 2025-02-02 14:41 | XMS_ITS | Encounter Summary ---
Author Organization [facility] Address [address] [place] [address] Care Team Providers Care Fabric And Accessories Estimator Name Role Phone Lavell Marcos MD Primary Care Provider [phone] Jennifer Sylvester MD Primary Care Provider [phone] [facility], Pcp Primary Care Provider Unavailabl e Encounter Details Date Type Department Care Team Description 10/12/2019 Old Medical Records Medical Records [address] [place] [address] 73251 Abstract, Provider Social History Tobacco Use Types [...] on filedocumented in this encounter Care Teams Fabric And Accessories Estimator Relationship Specialty Start Date End Date Lavell Marcos MD [address] [place] [address] 91146 PCP - General 04/06/07 02/08/21 Jennifer Sylvester MD [address] [place] [address] [phone] PCP - General Internal Medicine 02/09/21 01/22/23 [facility], Pcp [address] [place] [address] 16541 PCP - General Internal Medicine 01/23/23 documented as of this encounter
--- OUTSIDE RECORDS SUMMARY | 2025-02-02 14:41 | XMS_ITS | Encounter Summary ---
Author Organization [facility] Address [address] [place] [address] Care Team Providers Care Beater Out Name Role Phone Lavell Marcos MD Primary Care Provider [phone] Jennifer Sylvester MD Primary Care Provider [phone] [facility], Pcp Primary Care Provider Unavailabl e Encounter Details Date Type Department Care Team Description 12/09/2016 Geriatric Case Manager Report Medical Records [address] [place] [address] 88924 Reji White MD [address] [place] [address] 62216 Social History Tobacco Use Types Packs/Day Years [...] on filedocumented in this encounter Care Teams Beater Out Relationship Specialty Start Date End Date Lavell Marcos MD [address] [place] [address] 52674 PCP - General 04/06/07 02/08/21 Jennifer Sylvester MD [address] [place] [address] 79168 PCP - General Internal Medicine 02/09/21 01/22/23 [facility], Pcp [address] [place] [address] 84536 PCP - General Internal Medicine 01/23/23 documented as of this encounter
--- OUTSIDE RECORDS SUMMARY | 2025-02-02 14:41 | XMS_ITS | Encounter Summary ---
Author Organization [facility] Address [address] [place] [address] Care Team Providers Care Industrial Roofer Name Role Phone Lavell Marcos MD Primary Care Provider [phone] Jennifer Sylvester MD Primary Care Provider [phone] [facility], Pcp Primary Care Provider Unavailabl e Encounter Details Date Type Department Care Team Description 12/23/2013 Coding Machine Operator Report Medical Records [address] [place], [place] [id number] Black, Charity Social History Tobacco Use Types [...] on filedocumented in this encounter Care Teams Industrial Roofer Relationship Specialty Start Date End Date Lavell Marcos MD [address] [place] [address] PCP - General 04/06/07 02/08/21 Jennifer Sylvester MD [address] [place] [address] PCP - General Internal Medicine 02/09/21 01/22/23 [facility], Pcp [address] [place] [address] PCP - General Internal Medicine 01/23/23 documented as of this encounter
--- OUTSIDE RECORDS SUMMARY | 2025-02-02 14:41 | XMS_ITS | Encounter Summary ---
Author Organization [facility] Address [address] [place] [address] Care Team Providers Care Senior Policy Analyst Name Role Phone Lavell Marcos MD Primary Care Provider Jennifer Sylvester MD Primary Care Provider [facility], Pcp Primary Care Provider Unavailabl e Encounter Details Date Type Department Care Team Description 09/09/2019 Dental Appliance Repairer Report Medical Records [address] [place] [address] Jose Cornejo MD Social History Tobacco Use [...] filedocumented in this encounter Care Teams Senior Policy Analyst Relationship Specialty Start Date End Date Lavell Marcos MD [address] [place] [address]09 PCP - General 04/06/07 02/08/21 Jennifer Sylvester MD [address] [place] [address] 51541 PCP - General Internal Medicine 02/09/21 01/22/23 [facility], Pcp [address] [place] [address] PCP - General Internal Medicine 01/23/23 documented as of this encounter
--- OUTSIDE RECORDS SUMMARY | 2025-02-02 14:41 | XMS_ITS | Encounter Summary ---
Author Organization [facility] Address [address] [place] [address] Care Team Providers Care Software Tester Name Role Phone Lavell Marcos MD Primary Care Provider [phone] Jennifer Sylvester MD Primary Care Provider [phone] [facility], Pcp Primary Care Provider Unavailabl e Reason for Visit * Reason Onset Date Comments Medication 02/12/2017 acid reflux Encounter Details Date Type Department Care Team Description 02/12/2017 Telephone Gastroenterology - [address] [address] Roger Erazo MD Medication (acid reflux) Social History Tobacco Use Types Packs/Day Years [...] encounter Miscellaneous Notes * Telephone Encounter - Daisy Rahman - 02/12/2017 12:54 PM EDT Message relayed to pt * Telephone Encounter - Roger Erazo MD - 02/12/2017 12:46 PM EDT I sent a prescription for famotidine/Pepcid 20 mg twice a day to the [facility] pharmacy listed in her chart. She should try this out and call me back in week or 2. * Telephone Encounter - Daisy Rahman - 02/12/2017 9:59 AM EDT Patient is having acid reflux, she wants to know if there is something dr can prescribe for her, please advise, thank you! documented in this encounter Plan of Treatment Not on file documented as of this encounter Visit Diagnoses Diagnosis Heartburn- Primary documented in this encounter Care Teams Software Tester Relationship Specialty Start Date End Date Lavell Marcos MD [address] [place] [address] PCP - General 04/06/07 02/08/21 Jennifer Sylvester MD [address] [place] [address] 265[address] PCP - General Internal Medicine 02/09/21 01/22/23 [facility], [address] [address] PCP - General Internal Medicine 01/23/23 documented as of this encounter
--- OUTSIDE RECORDS SUMMARY | 2025-02-02 14:41 | XMS_ITS | Encounter Summary ---
Author Organization [facility] Address [address] [place] [address] Care Team Providers Care Pulp Mixer Name Role Phone Lavell Marcos MD Primary Care Provider [phone] Jennifer Sylvester MD Primary Care Provider [phone] [facility], Pcp Primary Care Provider Unavailabl e Reason for Visit * Reason Onset Date Comments Orders Call 11/17/2013 Encounter Details Date Type Department Care Team Description 11/17/2013 Telephone Adult Medicine [facility] [address] [place] [address] Lavell Marcos MD [address] [place] [address] Orders Call Social History Tobacco Use Types Packs/Day Years [...] encounter Miscellaneous Notes * Telephone Encounter - Rachna Roche L.P.N. - 11/17/2013 10:11 AM EST Please schedule pt on chronic nurse schedule * Telephone Encounter - Lavell Marcos MD - 11/17/2013 10:01 AM EST Pneumonia vaccine ordered okay to give her a nurse only appointment * Telephone Encounter - Rachna HongPMedNMed - 11/17/2013 9:37 AM EST Please review and advise. Was not sure which to order * Telephone Encounter - Griselda Tubbs - 11/17/2013 9:25 AM EST Patient wants pneumonia vaccine documented in this encounter Plan of Treatment Not on file documented as of this encounter Visit Diagnoses Diagnosis Need for prophylactic vaccination against Streptococcus pneumoniae (pneumococcus)- Primary Need for prophylactic vaccination against streptococcus pneumoniae (pneumococcus) documented in this encounter Care Teams Pulp Mixer Relationship Specialty Start Date End Date Lavell Marcos MD [address] [place] [address] PCP - General 04/06/07 02/08/21 Jennifer Sylvester MD [address] [place] [address]663 PCP - General Internal Medicine 02/09/21 01/22/23 [facility], [address] [address] PCP - General Internal Medicine 01/23/23 documented as of this encounter
--- OUTSIDE RECORDS SUMMARY | 2025-02-02 14:41 | XMS_ITS | Encounter Summary ---
Author Organization [facility] Address [address] [place] [address] Care Team Providers Care Repairer Auto Clocks Name Role Phone Lavell Marcos MD Primary Care Provider Jennifer Sylvester MD Primary Care Provider [phone] [facility], Pcp Primary Care Provider Unavailabl e Encounter Details Date Type Department Care Team Description 02/15/2019 Hospital Medical Records [address] [place] [address] Raj Hardwick MD Social History Tobacco Use [...] on filedocumented in this encounter Care Teams Repairer Auto Clocks Relationship Specialty Start Date End Date Lavell Marcos MD [address] [place] [address] PCP - General 04/06/07 02/08/21 Jennifer Sylvester MD [address] [place] [address] 12202 PCP - General Internal Medicine 02/09/21 01/22/23 [facility], Pcp [address] [place] [address] PCP - General Internal Medicine 01/23/23 documented as of this encounter
--- OUTSIDE RECORDS SUMMARY | 2025-02-02 14:41 | XMS_ITS | Encounter Summary ---
Author Organization [facility] Address [address] [place] [address] Care Team Providers Care Asbestos Coverer Name Role Phone Lavell Marcos MD Primary Care Provider [phone] Jennifer Sylvester MD Primary Care Provider [phone] [facility], Pcp Primary Care Provider Unavailabl e Reason for Visit * Reason Onset Date Comments other 08/30/2019 Encounter Details Date Type Department Care Team Description 08/30/2019 Telephone Physiatry - [place] [address] [place] [address] Lavell Marcos MD [address] [place] [address] other Social History Tobacco Use Types Packs/Day [...] Miscellaneous Notes * Telephone Encounter - Radha Alains - 08/30/2019 4:40 PM EDT I spoke [...] on filedocumented in this encounter Care Teams Asbestos Coverer Relationship Specialty Start Date End Date Lavell Marcos MD [address] [place] [address] PCP - General 04/06/07 02/08/21 Jennifer Sylvester MD [address] [place] [address] PCP - General Internal Medicine 02/09/21 01/22/[address] [address] PCP - General Internal Medicine 01/23/23 documented as of this encounter
--- OUTSIDE RECORDS SUMMARY | 2025-02-02 14:41 | XMS_ITS | Encounter Summary ---
Author Organization [facility] Address [address] [place] [address] Care Team Providers Care Preforms Laminator Name Role Phone Lavell Marcos MD Primary Care Provider [phone] Jennifer Sylvester MD Primary Care Provider [phone] [facility], Pcp Primary Care Provider Unavailabl e Encounter Details Date Type Department Care Team Description 10/18/2019 Old Medical Records Medical Records [address] [place] [address] Abstract, Provider Social History Tobacco Use Types [...] on filedocumented in this encounter Care Teams Preforms Laminator Relationship Specialty Start Date End Date Lavell Marcos MD [address] [place] [address] PCP - General 04/06/07 02/08/21 Jennifer Sylvester MD [address] [place] [address] [phone] PCP - General Internal Medicine 02/09/21 01/22/23 [facility], Pcp [address] [place] [address] PCP - General Internal Medicine 01/23/23 documented as of this encounter
--- OUTSIDE RECORDS SUMMARY | 2025-02-02 14:41 | XMS_ITS ---
Author Organization [facility] Address [address] [place] [address] Care Team Providers Care Percher Name Role Phone Abby Potter Primary Care Provider Charity Castro [phone] REASON FOR VISIT 2/6 appt Encounters Encounter Location Date Provider Diagnosis [address] [address] 12/07/2024 Charity Marquez Plan Of Treatment Next Appt Details Provider Name:Charity Marquez , 03/07/2025 09:15:00 AM, [address] [place], [address], Progress Notes * Adelina TAVAREZ ADOB:[birth year] (79 yo F)Acc No.[id number]:12/07/2024 Patient:?Adelina TAVAREZ :1945???Age:79 Y???Sex:Female Address:[address] [place] [address] [place] [address] * true * Date:? Generated for Printi ng/[place]/eTransmitting on:?02/02/2025 02:40 PM EDT
--- OUTSIDE RECORDS SUMMARY | 2025-02-02 14:41 | XMS_ITS | Encounter Summary ---
Author Organization [facility] Address [address] [place] [address] Care Team Providers Care Vice President Planning Name Role Phone Lavell Marcos MD Primary Care Provider [phone] Jennifer Sylvester MD Primary Care Provider [phone] [facility], Pcp Primary Care Provider [facility] Encounter Details Date Type Department Care Team Description 03/05/2013 Pt. Non Urgent Medical Question Adult Medicine [facility] [address] [place] [address] Lavell Marcos MD [address] [place] [address] HYPOTHYROIDISM (Primary Dx) Social History Tobacco Use [...] AM Subject: TSH Adelina Marcos, Dr. Larsen, [facility] did a TSH on 02/23/13. Result 0.09 Reference Range 0.40-5.00 The TSH seems low. When I went to the [facility] I thought my dosage was .05 Couldthis [...] 70 - 100 mg/dL 04/12/2013 4:26 PM [facility] Comment: Reference range applicable to fasting specimens only Based on recommendations from the ADA and AACE, the fasting glucose reference range has been changed to 70-100 mg/dL. ??This change is effective March 19, 2010 BUN 10 5 - 25 mg/dL 04/12/2013 4:20 PM [facility] CREAT 0.6(L) 0.7 - 1.5 mg/dL 04/12/2013 4:23 PM [facility] GFR > 60 >60 04/12/2013 4:31 PM [facility] Comment: If patient is -Nauruan, multiply result by 1.21 Chronic Kidney Disease: < 60 ml/min/1.73 square meters Kidney Failure: < 15 ml/min/1.73 square meters Sodium 142 133 - 145 mEq/L 04/12/2013 4:04 PM [facility] Potassium 3.8 3.5 - 5.2 mEq/L 04/12/2013 4:04 PM [facility] Chloride 105 96 - 108 mEq/L 04/12/2013 4:04 PM [facility] CO2 28.2 21.0 - 32.0 mEq/L 04/12/2013 4:23 PM [facility] CALCIUM 9.5 8.5 - 10.5 mg/dL 04/12/2013 4:26 PM [facility] 04/12/2013 2:05 PM EDT 04/12/2013 2:05 PM EDT Lavell Marcos MD LAB [facility] [address] [place] [address] documented in this encounter Visit Diagnoses Diagnosis HYPOTHYROIDISM- Primary Unspecified hypothyroidism documented in this encounter Care Teams Vice President Planning Relationship Specialty Start Date End Date Lavell Marcos MD [address] [place] [address] PCP - General 04/06/07 02/08/21 Jennifer Sylvester MD [address] [place] [address] PCP - General Internal Medicine 02/09/21 01/22/23 [facility], [address] [address] PCP - General Internal Medicine 01/23/23 documented as of this encounter
--- OUTSIDE RECORDS SUMMARY | 2025-02-02 14:41 | XMS_ITS | Encounter Summary ---
Author Organization [facility] Address [address] [place] [address] Care Team Providers Care International Accounting Manager Name Role Phone Lavell Marcos MD Primary Care Provider [phone] Jennifer Sylvester MD Primary Care Provider [phone] [facility], Pcp Primary [facility] Encounter Details Date Type Department Care Team Description 03/05/2019 Continuous Drier Operator Report Medical Records [address] [place] [address] Isai Patel, PAYossiC Social History Tobacco Use Types Packs/Day [...] on filedocumented in this encounter Care Teams International Accounting Manager Relationship Specialty Start Date End Date Lavell Marcos MD [address] [place] [address] PCP - General 04/06/07 02/08/21 Jennifer Sylvester MD [address] [place] [address] PCP - General Internal Medicine 02/09/21 01/22/23 [facility], Pcp [address] [place] [address] PCP - General Internal Medicine 01/23/23 documented as of this encounter
--- OUTSIDE RECORDS SUMMARY | 2025-02-02 14:41 | XMS_ITS | Encounter Summary ---
Author Organization [facility] Address [address] [place] [address] Care Team Providers Care Manager Renewable Energy Name Role Phone Lavell Marcos MD Primary Care Provider [phone] Jennifer Sylvester MD Primary Care Provider [phone] [facility], [facility], Pcp Primary Care Provider Unavailabl e Encounter Details Date Type Department Care Team Description 12/19/2016 Business Doc Medical Records [address] [place] [address] Abstract, Provider Social History Tobacco Use Types [...] on filedocumented in this encounter Care Teams Manager Renewable Energy Relationship Specialty Start Date End Date Lavell Marcos MD [address] [place] [address] PCP - General 04/06/07 02/08/21 Jennifer Sylvester MD [address] [place] [address] [phone] PCP - General Internal Medicine 02/09/21 01/22/23 [facility], Pcp [address] [place] [address] 119[address] PCP - General Internal Medicine 01/23/23 documented as of this encounter
--- OUTSIDE RECORDS SUMMARY | 2025-02-02 14:41 | XMS_ITS | Encounter Summary ---
Author Organization [facility] Address [address] [place] [address] Care Team Providers Care Pencil Sorter Name Role Phone Lavell Marcos MD Primary Care Provider [phone] Jennifer Sylvester MD Primary Care Provider [phone] [facility], Pcp Primary Care Provider Unavailabl e Reason for Visit * Reason Onset Date Comments other 02/23/2019 Encounter Details Date Type Department Care Team Description 02/23/2019 Telephone Pulmonology - [address] [place] [address] Eduardo Lino MD other Social [...] on filedocumented in this encounter Care Teams Pencil Sorter Relationship Specialty Start Date End Date Lavell Marcos MD [address] [place] [address] PCP - General 04/06/07 02/08/21 Jennifer Sylvester MD [address] [place] [address] PCP - General Internal Medicine 02/09/21 01/22/23 [facility], [address] [address] PCP - General Internal Medicine 01/23/23 documented as of this encounter
--- OUTSIDE RECORDS SUMMARY | 2025-02-02 14:41 | XMS_ITS | Encounter Summary ---
Author Organization [facility] Address [address] [place] [address] Care Team Providers Care Feller Machine Operator Name Role Phone Lavell Marcos MD Primary Care Provider Jennifer Sylvester MD Primary Care Provider [facility], Pcp Primary Care Provider Unavailabl e Encounter Details Date Type Department Care Team Description 06/25/2019 Project Consultant Report Medical Records [address] [place] [address] Raj Hardwick MD Social History Tobacco Use [...] on filedocumented in this encounter Care Teams Feller Machine Operator Relationship Specialty Start Date End Date Lavell Marcos MD [address] [place] [address] PCP - General 04/06/07 02/08/21 Jennifer Sylvester MD [address] [place] [address]67 PCP - General Internal Medicine 02/09/21 01/22/23 [facility], Pcp [address] [place] [address] PCP - General Internal Medicine 01/23/23 documented as of this encounter
--- OUTSIDE RECORDS SUMMARY | 2025-02-02 14:41 | XMS_ITS | Encounter Summary ---
Author Organization [facility] Address [address] [place] [address] Care Team Providers Care Natural Resources Technician Name Role Phone Lavell Marcos MD Primary Care Provider [phone] Jennifer Sylvester MD Primary Care Provider [phone] [facility], Pcp Primary Care Provider Unavailabl e Reason for Visit * Reason Comments E-prescribe Rx Request Encounter Details Date Type Department Care Team Description 04/07/2017 Refill Adult Medicine [address] [address] Lavell Marcos MD [address] [place] [address] E-prescribe Rx Request Social History Tobacco Use [...] Payor: CARO/PPO POS / Plan: PPO $0 [employer] [id number] / Product Type: PPO [id number] documented in this encounter Plan of Treatment Not on file documented as of this encounter Visit Diagnoses Not on filedocumented in this encounter Care Teams Natural Resources Technician Relationship Specialty Start Date End Date Lavell Marcso MD [address] [place] [address] PCP - General 04/06/07 02/08/21 Jennifer Sylvester MD [address] [place] [address] [phone] PCP - General Internal Medicine 02/09/21 01/22/23 Joe Garay [address] [place] [address] PCP - General Internal Medicine 01/23/23 documented as of this encounter
--- OUTSIDE RECORDS SUMMARY | 2025-02-02 14:41 | XMS_ITS | Encounter Summary ---
Author Organization [facility] Address [address] [place] [address] Care Team Providers Care Forensic Toxicologist Name Role Phone Lavell Marcos MD Primary Care Provider Jennifer Sylvester MD Primary Care Provider [phone] [facility], Pcp Primary Care Provider Unavailabl e Encounter Details Date Type Department Care Team Description 11/16/2019 Termite Control Service Representative Report Medical Records [address] [place] [address] Eduardo Lino MD Social History Tobacco Use [...] on filedocumented in this encounter Care Teams Forensic Toxicologist Relationship Specialty Start Date End Date Lavell Marcos MD [address] [place] [address] PCP - General 04/06/07 02/08/21 Jennifer Sylvester MD [address] [place] [address] PCP - General Internal Medicine 02/09/21 01/22/23 [facility], Pcp [address] [place] [address] PCP - General Internal Medicine 01/23/23 documented as of this encounter
--- OUTSIDE RECORDS SUMMARY | 2025-02-02 14:41 | XMS_ITS | Encounter Summary ---
Author Organization [facility] Address [address] [place] [address] Care Team Providers Care National Park Ranger Name Role Phone Lavell Marcos MD Primary Care Provider [phone] Jennifer Sylvestre MD Primary Care Provider [phone] [facility], Pcp Primary Care [facility] Encounter Details Date Type Department Care Team Description 09/22/2019 Recreational Vehicle Repairer Report Medical Records [address] [place] [address] Bib Sandoval MD Social History Tobacco Use [...] on filedocumented in this encounter Care Teams National Park Ranger Relationship Specialty Start Date End Date Lavell Marcos MD [address] [place] [address] PCP - General 04/06/07 02/08/21 Jennifer Sylvester MD [address] [place] [address] 52738 PCP - General Internal Medicine 02/09/21 01/22/23 [facility], Pcp [address] [place] [address] PCP - General Internal Medicine 01/23/23 documented as of this encounter
--- OUTSIDE RECORDS SUMMARY | 2025-02-02 14:41 | XMS_ITS | Encounter Summary ---
Author Organization [facility] Address [address] [place] [address] Care Team Providers Care Crts Name Role Phone Lavell Marcos MD Primary Care Provider [phone] Jennifer Sylvester MD Primary Care Provider [phone] [facility], Pcp Primary Care Provider Unavailabl e Encounter Details Date Type Department Care Team Description 09/02/2019 Stopper Maker Helper Report Medical Records [address] [place] [address] Augie Braga MD Social History Tobacco Use [...] on filedocumented in this encounter Care Teams Crts Relationship Specialty Start Date End Date Lavell Marcos MD [address] [place] [address] PCP - General 04/06/07 02/08/21 Jennifer Sylvester MD [address] [place] [address]676 PCP - General Internal Medicine 02/09/21 01/22/23 [facility], Pcp [address] [place] [address] PCP - General Internal Medicine 01/23/23 documented as of this encounter
--- OUTSIDE RECORDS SUMMARY | 2025-02-02 14:41 | XMS_ITS | Encounter Summary ---
Author Organization [facility] Address [address] [place] [address] Care Team Providers Care Trim Operator Name Role Phone Lavell Marcos MD Primary Care Provider [phone] Jennifer Sylvester MD Primary Care Provider [phone] [facility], Pcp Primary Care Provider Unavailabl e Encounter Details Date Type Department Care Team Description 02/05/2013 Senior Vice President Report Medical Records [address] [place] [address] Eduardo Lino MD Social History Tobacco Use [...] on filedocumented in this encounter Care Teams Trim Operator Relationship Specialty Start Date End Date Lavell Marcos MD [address] [place] [address] PCP - General 04/06/07 02/08/21 Jennifer Sylvester MD [address] [place] [address]115 PCP - General Internal Medicine 02/09/21 01/22/23 Jarrod, Joe [address] [place] [address] PCP - General Internal Medicine 01/23/23 documented as of this encounter
--- OUTSIDE RECORDS SUMMARY | 2025-02-02 14:41 | XMS_ITS | Encounter Summary ---
Author Organization [facility] Address [address] [place] [address] Care Team Providers Care Events Specialist Name Role Phone Lavell Marcos MD Primary Care Provider [phone] Jennifer Sylvester MD Primary Care Provider [phone] [facility], Pcp Primary Care Provider Unavailabl e Encounter Details Date Type Department Care Team Description 03/04/2013 Grader Operator Report Medical Records [address] [place] [address] Eduardo Lino MD Social History Tobacco Use [...] on filedocumented in this encounter Care Teams Events Specialist Relationship Specialty Start Date End Date Lavell Marcos MD [address] [place] [address] PCP - General 04/06/07 02/08/21 Jennifer Sylvester MD [address] [place] [address] 29753 PCP - General Internal Medicine 02/09/21 01/22/23 Jarrod, Joe [address] [place] [address] PCP - General Internal Medicine 01/23/23 documented as of this encounter
--- OUTSIDE RECORDS SUMMARY | 2025-02-02 14:41 | XMS_ITS | Encounter Summary ---
Author Organization [facility] Address [address] [place] [address] Care Team Providers Care Research Biostatistician Name Role Phone Lavell Marcos MD Primary Care Provider + [phone] Jennifer Sylvester MD Primary Care Provider [phone] [facility], Pcp Primary Care Provider Unavailabl e Encounter Details Date Type Department Care Team Description 05/26/2019 Release of Information Medical Records [address] [place], [place] [id number] Abstract, Provider Social History Tobacco Use Types [...] on filedocumented in this encounter Care Teams Research Biostatistician Relationship Specialty Start Date End Date Lavell Marcos MD [address] [place] [address] [phone] PCP - General 04/06/07 02/08/21 Jennifer Sylvester MD [address] [place] [address] [phone] PCP - General Internal Medicine 02/09/21 01/22/23 [facility], Pcp [address] [place] [address] 61092 PCP - General Internal Medicine 01/23/23 documented as of this encounter
--- OUTSIDE RECORDS SUMMARY | 2025-02-02 14:41 | XMS_ITS | Encounter Summary ---
Author Organization [facility] Address [address] [place] [address] Care Team Providers Care Surface Boss Name Role Phone Jennifer Sylvester MD Primary Care Provider [phone] [facility], Pcp Primary Care Provider Unavailletty e Encounter Details Date Type Department Care Team Description 08/03/2021 Hospital Medical Records [address] [place] [address]91 Ned Mitchell MD Social History Tobacco Use [...] on filedocumented in this encounter Care Teams Surface Boss Relationship Specialty Start Date End Date Jennifer Sylvester MD [address] [place] [address] [phone] PCP - General Internal Medicine 02/09/21 01/22/23 [facility], Pcp [address] [place] [address] 49050 PCP - General Internal Medicine 01/23/23 documented as of this encounter
--- OUTSIDE RECORDS SUMMARY | 2025-02-02 14:41 | XMS_ITS | Encounter Summary ---
Author Organization [facility] Address [address] [place] [address] Care Team Providers Care Supervisor Shipfitters Name Role Phone Lavell Marcos MD Primary Care Provider Jennifer Sylvester MD Primary Care Provider [phone] [facility], Pcp Primary Care Provider Unavailabl e Reason for Visit * Reason Onset Date Comments Prior Authorization 08/24/2019 ct chest 712 [id number] Encounter Details Date Type Department Care Team Description 08/24/2019 Telephone Pulmonology - [address] [place] [address] Eduardo Lino MD Prior Authorization (ct chest 94980) Social History Tobacco Use Types Packs/Day Years [...] encounter Miscellaneous Notes * Telephone Encounter - Kristine Miller - 08/24/2019 11:43 AM EDT Patient does not have any appts with any providers in our office, please disregard order. * Telephone Encounter - Meena Cha - 08/24/2019 11:[address] Arreaga [place] an order for CT chest 72332 to be done in Sep 2019. Is this patient still beingseen by your office? If so, please place new external order for [facility]. ?? Thank you, ?? Meena x [phone] Prior Auth Dept. documented in this encounter Plan of Treatment Not on file documented as of this encounter Visit Diagnoses Not on filedocumented in this encounter Care Teams Supervisor Shipfitters Relationship Specialty Start Date End Date Lavell Marcos MD [address] [place] [address] 25087 PCP - General 04/06/07 02/08/21 Jennifer Sylvester MD [address] [place] [address] 18681 PCP - General Internal Medicine 02/09/21 01/22/23 [facility], [address] [address] PCP - General Internal Medicine 01/23/23 documented as of this encounter
--- OUTSIDE RECORDS SUMMARY | 2025-02-02 14:41 | XMS_ITS | Encounter Summary ---
Author Organization [facility] Address [address] [place] [address] Care Team Providers Care Health Program Manager Name Role Phone Lavell Marcos MD Primary Care Provider + [phone] Jennifer Sylvester MD Primary Care Provider [phone] [facility], Pcp Primary Care Provider Unavailabl e Encounter Details Date Type Department Care Team Description 09/02/2019 Old Medical Records Medical Records [address] [place] [address] 33598 Abstract, Provider Social History Tobacco Use Types [...] on filedocumented in this encounter Care Teams Health Program Manager Relationship Specialty Start Date End Date Lavell Marcos MD [address] [place] [address] 83988 PCP - General 04/06/07 02/08/21 Jennifer Sylvester MD [address] [place] [address] [phone] PCP - General Internal Medicine 02/09/21 01/22/23 [facility], Pcp [address] [place] [address] 44119 PCP - General Internal Medicine 01/23/23 documented as of this encounter
--- OUTSIDE RECORDS SUMMARY | 2025-02-02 14:42 | XMS_ITS | Encounter Summary ---
Author Organization [facility] Address [address] [place] [address] Care Team Providers Care Mill Labor Supervisor Name Role Phone Lavell Marcos MD Primary Care Provider [phone] Jennifer Sylvester MD Primary Care Provider [phone] [facility], Pcp Primary Care Provider Unavailabl e Encounter Details Date Type Department Care Team Description 10/05/2012 Automotive Lot Attendant Report Medical Records [address] [place] [address] Eduardo Lino MD Social History Tobacco Use [...] on filedocumented in this encounter Care Teams Mill Labor Supervisor Relationship Specialty Start Date End Date Lavell Marcos MD [address] [place] [address] 04505 PCP - General 04/06/07 02/08/21 Jennifer Sylvester MD [address] [place] [address] 11323 PCP - General Internal Medicine 02/09/21 01/22/23 Jarrod, Joe [address] [place] [address] 32210 PCP - General Internal Medicine 01/23/23 documented as of this encounter
--- OUTSIDE RECORDS SUMMARY | 2025-02-02 14:42 | XMS_ITS | Encounter Summary ---
Author Organization [facility] Address [address] [place] [address] Care Team Providers Care Toys And Games Hand Finisher Name Role Phone Lavell Marcos MD Primary Care Provider [phone] Jennifer Sylvester MD Primary Care Provider [phone] [facility], Pcp Primary Care Provider Unavailabl e Encounter Details Date Type Department Care Team Description 01/01/2016 Corrosion Control Specialist Report Medical Records [address] [place] [address]56 Eduardo Lino MD Social History Tobacco Use [...] on filedocumented in this encounter Care Teams Toys And Games Hand Finisher Relationship Specialty Start Date End Date Lavell Marcos MD [address] [place] [address] 16284 PCP - General 04/06/07 02/08/21 Jennifer Sylvester MD [address] [place] [address] 48013 PCP - General Internal Medicine 02/09/21 01/22/23 [facility], Pcp [address] [place] [address] [phone] PCP - General Internal Medicine 01/23/23 documented as of this encounter
--- OUTSIDE RECORDS SUMMARY | 2025-02-02 14:42 | XMS_ITS | Encounter Summary ---
Author Organization [facility] Address [address] [place] [address] Care Team Providers Care Robotics Testing Technician Name Role Phone Lavell Marcos MD Primary Care Provider [phone] Jennifer Sylvester MD Primary Care Provider [phone] [facility], Pcp Primary Care Provider Unavailabl e Encounter Details Date Type Department Care Team Description 05/07/2016 Marine Electronics Technician Report Medical Records [address] [place] [address] 15426 Eduardo Lino MD Social History Tobacco Use [...] on filedocumented in this encounter Care Teams Robotics Testing Technician Relationship Specialty Start Date End Date Lavell Marcos MD [address] [place] [address] 43450 PCP - General 04/06/07 02/08/21 Jennifer Sylvester MD [address] [place] [address] 51793 PCP - General Internal Medicine 02/09/21 01/22/23 [facility], Pcp [address] [place] [address] 42735 PCP - General Internal Medicine 01/23/23 documented as of this encounter
--- OUTSIDE RECORDS SUMMARY | 2025-02-02 14:42 | XMS_ITS | Clinical Summary ---
Author Organization [facility] Address [address] [place] [address] Care Team Providers Care Inspector Floor Sub Assembly Name Role Phone [facility], Pcp Primary Care [...] Dispensed Refills Start Date End Date Status QJUQNVQNZX-MWSY-GMR FEINE 50-325-40 MG OR TABS (FIORICET) per [...] on Friday, Wednesdays and Fridays 0 Active QPJONTY-ZSGXUGMWX-S INC OR Take 1 Tab by mouth [...] left lobe of the liver, ultrasound examination, [facility], 12/12/2005. 5 mm angiomyolipomas in the [...] Completion), 12/18/2016 (External Completion), Additional history exists BMI CHECK/ADVISE 11/03/2024 10/19/2019, , 12/29/2018, Additional history exists INFLUENZA (Season Ended) 2025 021, 07/28/2019, 07/07/2018, Additional history exists CHOLESTEROL SCREENING 04/30/2026 04/30/2021 , 06/19/2020, 11/27/2018, Additional history exists DTAP/TDAP/TD (3 - Td or Tdap) 11/17/2029 11/17/2019, 09/01/2009 HEPATITIS C SCREENING Completed 05/25/2014 PNEUMOCOCCAL VACCINE Completed 06/22/2015, 11/17/19 14 Care Teams Inspector Floor Sub Assembly Relationship Specialty Start Date End Date Community, Pcp PCP - General Internal Medicine 01/23/23
--- OUTSIDE RECORDS SUMMARY | 2025-02-02 14:42 | XMS_ITS | Encounter Summary ---
Author Organization [facility] Address [address] [place] [address] Care Team Providers Care Training Development Manager Name Role Phone Lavell Marcos MD Primary Care Provider [phone] Jennifer Sylvester MD Primary Care Provider [phone] [facility], Pcp Primary Care Provider [facility] Encounter Details Date Type Department Care Team Description 12/03/2011 Transfer Records Medical Records [address] [place] [address] Social History Tobacco Use Types Packs/Day Years [...] on filedocumented in this encounter Care Teams Training Development Manager Relationship Specialty Start Date End Date Lavell Marcos MD [address] [place] [address] [phone] PCP - General 04/06/07 02/08/21 Jennifer Sylvester MD [address] [place] [address] 42133 PCP - General Internal Medicine 02/09/21 01/22/23 Jarrod, Pcp [address] [place] [address] 95803 PCP - General Internal Medicine 01/23/23 documented as of this encounter
--- OUTSIDE RECORDS SUMMARY | 2025-02-02 14:42 | XMS_ITS | Encounter Summary ---
Author Organization [facility] Address [address] [place] [address] Care Team Providers Care Home Health Care Provider Name Role Phone Lavell Marcos MD Primary Care Provider [phone] Jennifer Sylvester MD Primary Care Provider [facility], Pcp Primary Care Provider Unavailabl e Encounter Details Date Type Department Care Team Description 11/10/2012 Business Systems Lead Report Medical Records [address] [place] [address] 92078 Micheal Larsen Social History Tobacco Use Types [...] on filedocumented in this encounter Care Teams Home Health Care Provider Relationship Specialty Start Date End Date Lavell Marcos MD [address] [place] [address] [phone] PCP - General 04/06/07 02/08/21 Jennifer Sylvester MD [address] [place] [address] [phone] PCP - General Internal Medicine 02/09/21 01/22/23 [facility], Pcp [address] [place] [address] [phone] PCP - General Internal Medicine 01/23/23 documented as of this encounter
--- OUTSIDE RECORDS SUMMARY | 2025-02-02 14:42 | XMS_ITS | Encounter Summary ---
Author Organization [facility] Address [address] [place] [address] Care Team Providers Care Drier Unloader Name Role Phone Lavell Marcos MD Primary Care Provider [phone] Jennifer Sylvester MD Primary Care Provider [phone] [facility], Pcp Primary Care Provider [facility] Encounter Details Date Type Department Care Team Description 07/19/2016 Pt. Non Urgent Medical Question Adult Medicine [facility] [address] [place] [address] 19092 Lavell Marcos MD [address] [place] [address] Social History Tobacco Use Types Packs/Day Years [...] on filedocumented in this encounter Care Teams Drier Unloader Relationship Specialty Start Date End Date Lavell Marcos MD [address] [place] [address] 31813 PCP - General 04/06/07 02/08/21 Jennifer Sylvester MD [address] [place] [address] [phone] PCP - General Internal Medicine 02/09/21 01/22/[address] [phone] PCP - General Internal Medicine 01/23/23 documented as of this encounter
--- OUTSIDE RECORDS SUMMARY | 2025-02-02 14:42 | XMS_ITS | Encounter Summary ---
Author Organization [facility] Address [address] [place] [address] Care Team Providers Care Fast Food Supervisor Name Role Phone Lavell Marcos MD Primary Care Provider [phone] Jennifer Sylvester MD Primary Care Provider [phone] [facility], Pcp Primary Care Provider Unavailabl e Reason for Visit * Reason Onset Date Comments Information Needed 04/22/2016 Encounter Details Date Type Department Care Team Description 04/22/2016 Telephone Adult Medicine [facility] [address] [place] [address] Lavell Marcos MD [address] [place] [address] 58682 Information Needed Social History Tobacco Use Types [...] on filedocumented in this encounter Care Teams Fast Food Supervisor Relationship Specialty Start Date End Date Lavell Marcos MD [address] [place] [address] [phone] PCP - General 04/06/07 02/08/21 Jennifer Sylvester MD [address] [place] [address] [phone] PCP - General Internal Medicine 02/09/21 01/22/[address] [address] PCP - General Internal Medicine 01/23/23 documented as of this encounter
--- OUTSIDE RECORDS SUMMARY | 2025-02-02 14:42 | XMS_ITS | Encounter Summary ---
Author Organization [facility] Address [address] [place] [address] Care Team Providers Care Assembler Knife Name Role Phone Lavell Marcos MD Primary Care Provider Jennifer Sylvester MD Primary Care Provider [phone] [facility], Pcp Primary Care Provider Unavailabl e Encounter Details Date Type Department Care Team Description 07/09/2016 Visual Educator Report Medical Records [address] [place] [address] 20[address] Eduardo Lino MD Social History Tobacco Use [...] on filedocumented in this encounter Care Teams Assembler Knife Relationship Specialty Start Date End Date Lavell Marcos MD [address] [place] [address] [phone] PCP - General 04/06/07 02/08/21 Jennifer Sylvester MD [address] [place] [address] 63838 PCP - General Internal Medicine 02/09/21 01/22/23 [facility], Pcp [address] [place] [address] 80101 PCP - General Internal Medicine 01/23/23 documented as of this encounter
--- OUTSIDE RECORDS SUMMARY | 2025-02-02 14:42 | XMS_ITS | Encounter Summary ---
Author Organization [facility] Address [address] [place] [address] Care Team Providers Care Print Shop Stenographer Name Role Phone Lavell Marcos MD Primary Care Provider Jennifer Sylvester MD Primary Care Provider [phone] [facility], Pcp Primary Care Provider [facility] e Encounter Details Date Type Department Care Team Description 07/16/2016 Pt. Non Urgent Medical Question Gastroenterology - [address] [phone] Roger Erazo MD Other constipation (Primary Dx); Irritable bowel syndrome without diarrhea Social History Tobacco Use Types Packs/Day Years Used Date Smoking Tobacco: Never Smokeless Tobacco: Never Alcohol Use Standard Drinks/Week Comments No 0 (1 standard drink = 0.6 oz pur e alcohol) Sex Assigned at Date Recorded Not on file Job Start Date Occupation Industry Not on file Not on file Not on file documented as of this encounter Progress Notes * Elsa Ellison L.P.N. - 07/16/2016 4:21 PM EDTFrom: Adelina Tavarez To: Roger Erazo MD Sent: 07/16/2016 4:19 PM EDT Subject: Bowels DrMed I have been taking metamusil 1/2 tsp to 2 tsp for 3 days could not take the bloating and my bowerlswere not moving took laxative worked moving bowels but I CANT SEEM TO MOVE MY bowels with out taking laxative and reducing bloat. Do you think Lenzess would help? Thanks Adelina very uncomfotable. Peppermint oil sits in my throat documented in this encounter Plan of Treatment Not on file documented as of this encounter Visit Diagnoses Diagnosis Other constipation- Primary Irritable bowel syndrome without diarrhea Irritable bowel syndrome documented in this encounter Care Teams Print Shop Stenographer Relationship Specialty Start Date End Date Lavell Marcos MD [address] [place] [address] [phone] PCP - General 04/06/07 02/08/21 Jennifer Sylvester MD [address] [place] [address] 24479 PCP - General Internal Medicine 02/09/21 01/22/[address] [address] PCP - General Internal Medicine 01/23/23 documented as of this encounter
--- OUTSIDE RECORDS SUMMARY | 2025-02-02 14:42 | XMS_ITS | Encounter Summary ---
Author Organization [facility] Address [address] [place] [address] Care Team Providers Care Services Host Name Role Phone Lavell Marcos MD Primary Care Provider [phone] Jennifer Sylvester MD Primary Care Provider [phone] [facility], Pcp Primary Care Provider Unavailabl e Encounter Details Date Type Department Care Team Description 09/04/2012 Cadmium Liquor Maker Report Medical Records [address] [place] [address]57 Eduardo Lino MD Social History Tobacco Use [...] on filedocumented in this encounter Care Teams Services Host Relationship Specialty Start Date End Date Lavell Marcos MD [address] [place] [address] [phone] PCP - General 04/06/07 02/08/21 Jennifer Sylvester MD [address] [place] [address] [phone] PCP - General Internal Medicine 02/09/21 01/22/23 Jarrod, Joe [address] [place] [address] 26664 PCP - General Internal Medicine 01/23/23 documented as of this encounter
--- OUTSIDE RECORDS SUMMARY | 2025-02-02 14:42 | XMS_ITS | Encounter Summary ---
Author Organization [facility] Address [address] [place] [address] Care Team Providers Care Application Internship Name Role Phone Lavell Marcos MD Primary Care Provider [phone] Jennifer Sylvester MD Primary Care Provider [phone] [facility], Pcp Primary Care Provider Unavailabl e Reason for Visit * Reason Onset Date Comments Echocardiogram 09/08/2012 Encounter Details Date Type Department Care Team Description 09/08/2012 Telephone Adult Medicine [address] [phone] Roselyn Tavarez PA-C Echocardiogram Social History Tobacco [...] for the echocardiogram has been faxed to [address] to be done documented in this encounter Plan of Treatment Not on file documented as of this encounter Visit Diagnoses Not on filedocumented in this encounter Care Teams Application Internship Relationship Specialty Start Date End Date Lavell Marcos MD [address] [place] [address] [phone] PCP - General 04/06/07 02/08/21 Jennifer Sylvester MD [address] [place] [address] [phone] PCP - General Internal Medicine 02/09/21 01/22/23 [facility], Pcp [address] [place] [address] 36981 PCP - General Internal Medicine 01/23/23 documented as of this encounter
--- OUTSIDE RECORDS SUMMARY | 2025-02-02 14:42 | XMS_ITS | Encounter Summary ---
Author Organization [facility] Address [address] [place] [address] Care Team Providers Care Power System Operator Name Role Phone Lavell Marcos MD Primary Care Provider [phone] Jennifer Sylvester MD Primary Care Provider [phone] [facility], Pcp Primary Care Provider Unavailabl e Encounter Details Date Type Department Care Team Description 07/22/2012 Release of Information Medical Records [address] [place], [place] [phone] Abstract, Provider Social History Tobacco Use Types [...] on filedocumented in this encounter Care Teams Power System Operator Relationship Specialty Start Date End Date Lavell Marcos MD [address] [place] [address] 61603 PCP - General 04/06/07 02/08/21 Jennifer Sylvester MD [address] [place] [address] [phone] PCP - General Internal Medicine 02/09/21 01/22/23 Jarrod, Joe [address] [place] [address] 11043 PCP - General Internal Medicine 01/23/23 documented as of this encounter
--- OUTSIDE RECORDS SUMMARY | 2025-02-02 14:42 | XMS_ITS | Encounter Summary ---
Author Organization [facility] Address [address] [place] [address] Care Team Providers Care Filters Assembler Name Role Phone Lavell Marcos MD Primary Care Provider [phone] Jennifer Sylvester MD Primary Care Provider [phone] [facility], Pcp Primary Care Provider [facility] e Encounter Details Date Type Department Care Team Description 02/06/2016 Fish Straightener Report Medical Records [address] [place] [address] Bib Sandoval MD Social History Tobacco Use [...] on filedocumented in this encounter Care Teams Filters Assembler Relationship Specialty Start Date End Date Lavell Marcos MD [address] [place] [address] 18033 PCP - General 04/06/07 02/08/21 Jennifer Sylvester MD [address] [place] [address] 17305 PCP - General Internal Medicine 02/09/21 01/22/23 [facility], Pcp [address] [place] [address] [phone] PCP - General Internal Medicine 01/23/23 documented as of this encounter
--- OUTSIDE RECORDS SUMMARY | 2025-02-02 14:42 | XMS_ITS | Encounter Summary ---
Author Organization [facility] Address [address] [place] [address] Care Team Providers Care Database Administration Project Manager Name Role Phone Lavell Marcos MD Primary Care Provider [phone] Jennifer Sylvester MD Primary Care Provider [phone] [facility], Pcp Primary Care Provider Unavailabl e Encounter Details Date Type Department Care Team Description 05/24/2016 Hospital Medical Records [address] [place] [address] Eduardo Lino MD Social History Tobacco Use [...] on filedocumented in this encounter Care Teams Database Administration Project Manager Relationship Specialty Start Date End Date Lavell Marcos MD [address] [place] [address] 26620 PCP - General 04/06/07 02/08/21 Jennifer Sylvester MD [address] [place] [address] 62563 PCP - General Internal Medicine 02/09/21 01/22/23 [facility], Pcp [address] [place] [address] 42191 PCP - General Internal Medicine 01/23/23 documented as of this encounter
--- OUTSIDE RECORDS SUMMARY | 2025-02-02 14:42 | XMS_ITS | Encounter Summary ---
Author Organization [facility] Address [address] [place] [address] Care Team Providers Care Data Examination Clerk Name Role Phone Lavell Marcos MD Primary Care Provider [phone] Jennifer Sylvester MD Primary Care Provider [phone] [facility], Pcp Primary Care Provider [facility] e Encounter Details Date Type Department Care Team Description 07/28/2012 Mixer Attendant Report Medical Records [address] [place] [address] Rich Beatty Social History Tobacco Use Types [...] on filedocumented in this encounter Care Teams Data Examination Clerk Relationship Specialty Start Date End Date Lavell Marcos MD [address] [place] [address] 89906 PCP - General 04/06/07 02/08/21 Jennifer Sylvester MD [address] [place] [address] [phone] PCP - General Internal Medicine 02/09/21 01/22/23 Jar[facility], Pcp [address] [place] [address] 48200 PCP - General Internal Medicine 01/23/23 documented as of this encounter
--- OUTSIDE RECORDS SUMMARY | 2025-02-02 14:42 | XMS_ITS | Encounter Summary ---
Author Organization [facility] Address [address] [place] [address] Care Team Providers Care Wind Field Manager Name Role Phone Lavell Marcos MD Primary Care Provider [phone] Jennifer Sylvester MD Primary Care Provider [phone] [facility], Pcp Primary Care Provider Unavailabl e Encounter Details Date Type Department Care Team Description 10/25/2015 Release of Information Medical Records [address] [place], [place] [id number] Abstract, Provider Social History Tobacco Use Types [...] on filedocumented in this encounter Care Teams Wind Field Manager Relationship Specialty Start Date End Date Lavell Marcos MD [address] [place] [address] [phone] PCP - General 04/06/07 02/08/21 Jennifer Sylvester MD [address] [place] [address] [phone] PCP - General Internal Medicine 02/09/21 01/22/23 [facility], Pcp [address] [place] [address] [phone] PCP - General Internal Medicine 01/23/23 documented as of this encounter
--- OUTSIDE RECORDS SUMMARY | 2025-02-02 14:43 | XMS_ITS | Encounter Summary ---
Author Organization [facility] Address [address] [place] [address] Care Team Providers Care Children Teacher Name Role Phone Jennifer Sylvester MD Primary Care Provider [phone] [facility], Pcp Primary Care Provider Unavailabl e Encounter Details Date Type Department Care Team Description 08/15/2021 Sales Administration Manager Report Medical Records [address] [place] [address] 87951 Eduardo Lino MD Social History Tobacco Use [...] have Coronavirus / COVID-19? No / Unsure 08/13/2021 12:46 PM EDT documented as of this encounter Plan of Treatment Not on file documented as of this encounter Visit Diagnoses Not on filedocumented in this encounter Care Teams Children Teacher Relationship Specialty Start Date End Date Jennifer Sylvester MD [address] [place] [address] [phone] PCP - General Internal Medicine 02/09/21 01/22/23 [facility], Pcp [address] [place] [address] [phone] PCP - General Internal Medicine 01/23/23 documented as of this encounter
--- OUTSIDE RECORDS SUMMARY | 2025-02-02 14:43 | XMS_ITS | Encounter Summary ---
Author Organization [facility] Address [address] [place] [address] Care Team Providers Care Pulling Unit Floorhand Name Role Phone Jennifer Sylvester MD Primary Care Provider [phone] [facility], Pcp Primary Care [facility] Encounter Details Date Type Department Care Team Description 09/24/2021 Shopping Investigator Report Medical Records [address] [place] [address] 90295 Bib Sandoval MD Social History Tobacco Use [...] on filedocumented in this encounter Care Teams Pulling Unit Floorhand Relationship Specialty Start Date End Date Jennifer Sylvester MD [address] [place] [address] [phone] PCP - General Internal Medicine 02/09/21 01/22/23 [facility], Pcp [address] [place] [address] [phone] PCP - General Internal Medicine 01/23/23 documented as of this encounter
--- OUTSIDE RECORDS SUMMARY | 2025-02-02 14:43 | XMS_ITS | Encounter Summary ---
Author Organization [facility] Address [address] [place] [address] Care Team Providers Care Botany Technician Name Role Phone Jennifer Sylvester MD Primary Care Provider [phone] [facility], Pcp Primary Care Provider Unavailletty e Encounter Details Date Type Department Care Team Description 03/18/2022 Customs Port Director Report Medical Records [address] [place] [address] 77438 Bib Sandoval MD Social History Tobacco Use [...] on filedocumented in this encounter Care Teams Botany Technician Relationship Specialty Start Date End Date Jennifer Sylvester MD [address] [place] [address] [phone] PCP - General Internal Medicine 02/09/21 01/22/23 [facility], Pcp [address] [place] [address] [phone] PCP - General Internal Medicine 01/23/23 documented as of this encounter
--- OUTSIDE RECORDS SUMMARY | 2025-02-02 14:43 | XMS_ITS | Encounter Summary ---
Author Organization [facility] Address [address] [place] [address] Care Team Providers Care Transitional Kindergarten Teacher Name Role Phone Jennifer Sylvester MD Primary Care Provider [phone] [facility], Pcp Primary Care Provider [facility] Encounter Details Date Type Department Care Team Description 12/31/2021 Newspaper Deliverer Report Medical Records [address] [place] [address] 37919 Bib Sandoval MD Social History Tobacco Use [...] on filedocumented in this encounter Care Teams Transitional Kindergarten Teacher Relationship Specialty Start Date End Date Jennifer Sylvester MD [address] [place] [address] [phone] PCP - General Internal Medicine 02/09/21 01/22/23 [facility], Pcp [address] [place] [address] 60177 PCP - General Internal Medicine 01/23/23 documented as of this encounter
[2025-02-02 16:00] VITALS: BP 141/55; PULSE 66; RESP 18; TEMP 36.1; O2SAT 97
[2025-02-02 16:12] VITALS: BP 134/56; PULSE 64; RESP 18; O2SAT 97
[2025-02-02 16:57] VITALS: BP 134/56; PULSE 64; RESP 18; TEMP 36.1; O2SAT 97
== END 2025-02-02 16:58 | disposition home or self-care (01) ==
PROVIDERS: Emergency Provider Emergency Medicine; PCP Internal Medicine
DX: R20.0 Anesthesia of skin (principal); R94.31 Abnormal electrocardiogram [ECG] [EKG]; Z86.73 Personal history of transient ischemic attack (TIA), and cerebral infarction without residual deficits; Z79.01 Long term (current) use of anticoagulants; Z79.899 Other long term (current) drug therapy
CPT/HCPCS: 36415; 70496; 70498; 70551; 80053; 84484; 85025; 93005; 99285; Q9967

== ENCOUNTER → 2025-02-02 12:08 | Outpatient (BNV) | payer MEDICARE, OTHER, SELFPAY | PROVIDERS: Emergency Provider Emergency Medicine; PCP Internal Medicine; Visit Provider Internal Medicine | DX: R94.31 Abnormal electrocardiogram [ECG] [EKG] (principal); I63.9 Cerebral infarction, unspecified | CPT/HCPCS: 93010 ==

== ENCOUNTER → 2025-02-02 12:09 | Outpatient (BNV) | payer MEDICARE, OTHER, SELFPAY | PROVIDERS: Emergency Provider Emergency Medicine; PCP Internal Medicine; Visit Provider Radiology Diagnostic Radiology | DX: R20.2 Paresthesia of skin (principal); I65.23 Occlusion and stenosis of bilateral carotid arteries | CPT/HCPCS: 70496; 70498; 70551 ==

== ENCOUNTER 2025-02-03 08:35 | Outpatient (AMB) | payer MEDICARE, OTHER, SELFPAY ==
--- OUTSIDE RECORDS SUMMARY | 2025-02-03 08:41 | XMS_ITS | Encounter Summary ---
Author Organization [facility] Address [address] [place] [address] Care Team Providers Care Implementation Specialist Payroll Name Role Phone Lavell Marcos MD Primary Care Provider [phone] Jennifer Sylvester MD Primary Care Provider [phone] [facility], Pcp Primary Care [facility] Encounter Details Date Type Department Care Team Description 01/25/2021 Enrollment Processor Report Medical Records [address] [place] [address] 47950 Bib Sandoval MD Social History Tobacco Use [...] on filedocumented in this encounter Care Teams Implementation Specialist Payroll Relationship Specialty Start Date End Date Lavell Marcos MD [address] [place] [address] [phone] PCP - General 04/06/07 02/08/21 Jennifer Sylvester MD [address] [place] [address] [phone] PCP - General Internal Medicine 02/09/21 01/22/23 [facility], Pcp [address] [place] [address] [phone] PCP - General Internal Medicine 01/23/23 documented as of this encounter
--- OUTSIDE RECORDS SUMMARY | 2025-02-03 08:41 | XMS_ITS ---
Author Organization [facility] Address [address] [place] [address] Care Team Providers Care Pro Shop Attendant Name Role Phone Abby Potter MD Primary Care Provider Unavailletty e Nadine Braga Unavailable [phone] Allergies Allergen (clinical drug ingredient) Drug/Non Drug [...] 08/25/2024 Encounters Encounter Location Date Provider Diagnosis [facility] [address] [place] [address] 08/25/2024 Nadine Braga Gastroesophageal ref lux disease, [...] I did recommend that she try some rwgt-zig-jeitrrb antacid such as TUMS or Pepcid if [...] I did recommend that she try some srsy-xfl-qyjzcyc antacid such as TUMS or Pepcid if [...] I did recommend that she try some jnhf-jxt-kiukccm antacid such as TUMS or Pepcid if [...] Notes * ADELINA NAVARRODOB:1945 (78 yo F)Acc No.[id number]:08/25/2024 Progress Notes Patient:?ADELINA NAVARRO Provider:?Nadine Braga MD :1945???Age:78 Y???Sex:Female D ate:08/25/2024 Address:[address] [place], [place] [id number] Pcp:Abby Potter MD Subjective: * Chief Complaints: [...] History:?Sinus surg adelso Bladder suspension surgery C-spine--at [facility] 02/15/2018 * Hospitalization/Major Diagno stic Procedure:?No [...] I did recommend that she try some oyxy-pkm-ghswjfd antacid such as TUMS or Pepcid if [...] Patient decision) * Procedure Codes:?1036F TOBAC CO [id number] BP SCR NOT PRFRM REC REASON NOS [...] MD Date:? 024 Generated for Carmelina baker/Quincy/Jose on:?02/03/2025 08:41 AM EDT History and Physical Notes * [...]
--- OUTSIDE RECORDS SUMMARY | 2025-02-03 08:42 | XMS_ITS | Encounter Summary ---
Author Organization [facility] Address [address] [place] [address] Care Team Providers Care Parking Patroller Name Role Phone Lavell Marcos MD Primary Care Provider [phone] Jennifer Sylvester MD Primary Care Provider [phone] [facility], Pcp Primary Care Provider Unavailabl e Reason for Visit * Reason Onset Date Comments other 08/03/2018 office notes Encounter Details Date Type Department Care Team Description 08/03/2018 Telephone Pulmonology - [address] [place] [phone] Eduardo Lino MD other (office notes ) [...] PM EDT Ashwin spoke to Alize at [employer] .she said nebulizer has to be mentioned in the note if you can add that in. * Telephone Encounter - Mike Lepe - 08/06/2018 3:36 PM EDT Spoke to [facility] she will call me back * [...] what to do. Please call her at [phone]. * Telephone Encounter - Magalys Azevedo - 08/03/2018 4:12 PM EDT Needs office notes faxed over to supply [employer] for her nebulizer machine documented in this encounter Plan of Treatment Not on file documented as of this encounter Visit Diagnoses Not on filedocumented in this encounter Care Teams Parking Patroller Relationship Specialty Start Date End Date Lavell Marcos MD [address] [place] [address] [phone] PCP - General 04/06/07 02/08/21 Jennifer Sylvester MD [address] [place] [address] [phone] PCP - General Internal Medicine 02/09/21 01/22/23 [facility], [address] [address] PCP - General Internal Medicine 01/23/23 documented as of this encounter
--- OUTSIDE RECORDS SUMMARY | 2025-02-03 08:42 | XMS_ITS | Encounter Summary ---
Author Organization [facility] Address [address] [place] [address] Care Team Providers Care Vacuum Plastic Forming Machine Operator Name Role Phone Lavell Marcos MD Primary Care Provider [phone] Jennifer Sylvester MD Primary Care Provider [phone] [facility], Pcp Primary Care Provider Unavailabl e Encounter Details Date Type Department Care Team Description 05/29/2020 Dairy Tester Report Medical Records [address] [place] [address]312 [facility] Social History Tobacco Use Types Packs/Day [...] on filedocumented in this encounter Care Teams Vacuum Plastic Forming Machine Operator Relationship Specialty Start Date End Date Lavell Marcos MD [address] [place] [address] [phone] PCP - General 04/06/07 02/08/21 Jennifer Sylvester MD [address] [place] [address] 68163 PCP - General Internal Medicine 02/09/21 01/22/23 [facility], Pcp [address] [place] [address] [phone] PCP - General Internal Medicine 01/23/23 documented as of this encounter
--- OUTSIDE RECORDS SUMMARY | 2025-02-03 08:42 | XMS_ITS | Encounter Summary ---
Author Organization [facility] Address [address] [place] [address] Care Team Providers Care Fire Crew Specialist Name Role Phone Lavell Marcos MD Primary Care Provider [phone] Jennifer Sylvester MD Primary Care Provider [phone] [facility], Pcp Primary Care Provider [facility] Encounter Details Date Type Department Care Team Description 11/02/2018 Corporate Staff Accountant Report Medical Records [address] [place] [address]1104 Abstract, Provider Social History Tobacco Use Types [...] filedocumented in this encounter Care Teams Fire Crew Specialist Relationship Specialty Start Date End Date Lavell Marcos MD [address] [place] [address] 75861 PCP - General 04/06/07 02/08/21 Jennifer Sylvester MD [address] [place] [address] [phone] PCP - General Internal Medicine 02/09/21 01/22/23 [facility], Pcp [address] [place] [address] [phone] PCP - General Internal Medicine 01/23/23 documented as of this encounter
--- OUTSIDE RECORDS SUMMARY | 2025-02-03 08:42 | XMS_ITS | Encounter Summary ---
Author Organization [facility] Address [address] [place] [address] Care Team Providers Care Clinical Analyst Name Role Phone Lavell Marcos MD Primary Care Provider Jennifer Sylvester MD Primary Care Provider [phone] [facility], Pcp Primary Care Provider [facility] e Encounter Details Date Type Department Care Team Description 08/12/2014 Leather Goods Sales Representative Report Medical Records [address] [place] [address] 26437 Rich Beatty Social History Tobacco Use Types [...] on filedocumented in this encounter Care Teams Clinical Analyst Relationship Specialty Start Date End Date Lavell Marcos MD [address] [place] [address] 50998 PCP - General 04/06/07 02/08/21 Jennifer Sylvester MD [address] [place] [address] 25074 PCP - General Internal Medicine 02/09/21 01/22/23 [facility], Pcp [address] [place] [address] [phone] PCP - General Internal Medicine 01/23/23 documented as of this encounter
--- OUTSIDE RECORDS SUMMARY | 2025-02-03 08:42 | XMS_ITS | Encounter Summary ---
Author Organization [facility] Address [address] [place] [address] Care Team Providers Care Immigration Lawyer Name Role Phone Lavell Marcos MD Primary Care Provider [phone] Jennifer Sylvester MD Primary Care Provider [phone] [facility], Pcp Primary Care Provider Unavailabl e Encounter Details Date Type Department Care Team Description 11/10/2014 Oracle Manager Report Medical Records [address] [place] [address] 12721 Eduardo Lino MD Social History Tobacco Use [...] on filedocumented in this encounter Care Teams Immigration Lawyer Relationship Specialty Start Date End Date Lavell Marcos MD [address] [place] [address] 27932 PCP - General 04/06/07 02/08/21 Jennifer Sylvester MD [address] [place] [address] 30884 PCP - General Internal Medicine 02/09/21 01/22/23 [facility], Pcp [address] [place] [address] 15275 PCP - General Internal Medicine 01/23/23 documented as of this encounter
--- OUTSIDE RECORDS SUMMARY | 2025-02-03 08:42 | XMS_ITS | Encounter Summary ---
Author Organization [facility] Address [address] [place] [address] Care Team Providers Care End Lathe Operator Name Role Phone Jennifer Sylvester MD Primary Care Provider [phone] [facility], Pcp Primary Care Provider Unavailabl e Encounter Details Date Type Department Care Team Description 06/25/2021 Glass Vial Filler Report Medical Records [address] [place] [address] Chris Lincoln MD Social History Tobacco Use Types Packs/Day [...] on filedocumented in this encounter Care Teams End Lathe Operator Relationship Specialty Start Date End Date Jennifer Sylvester MD [address] [place] [address] [phone] PCP - General Internal Medicine 02/09/21 01/22/23 [facility], Pcp [address] [place] [address] [phone] PCP - General Internal Medicine 01/23/23 documented as of this encounter
--- OUTSIDE RECORDS SUMMARY | 2025-02-03 08:42 | XMS_ITS | Encounter Summary ---
Author Organization [facility] Address [address] [place] [address] Care Team Providers Care Crimping Machine Operator For Metal Name Role Phone Jennifer Sylvester MD Primary Care Provider [phone] [facility], Pcp Primary Care Provider Unavailabl e Reason for Visit * Reason Onset Date Comments Mychart Rx Refill 06/26/2021 Encounter Details Date Type Department Care Team Description 06/26/2021 Refill Adult Medicine [address] [phone] Jennifer Sylvester MD [address] [place] [address] [phone] Mychart Rx Refill Social History Tobacco Use [...] Does patient have an upcoming appointment? Yes [id number] (THE MEDICATION REQUESTED IS ON THE MED [...] / Plan: [place] / Product Type: MEDICARE [id number] documented in this encounter Plan of Treatment Not on file documented as of this encounter Visit Diagnoses Not on filedocumented in this encounter Care Teams Crimping Machine Operator For Metal Relationship Specialty Start Date End Date Jennifer Sylvester MD [address] [place] [address] 11987 PCP - General Internal Medicine 02/09/21 01/22/23 [facility] [address] [place] [address] [phone] PCP - General Internal Medicine 01/23/23 documented as of this encounter
--- OUTSIDE RECORDS SUMMARY | 2025-02-03 08:42 | XMS_ITS | Encounter Summary ---
Author Organization [facility] Address [address] [place] [address] Care Team Providers Care Forest Engineer Name Role Phone Lavell Marcos MD Primary Care Provider [phone] Jennifer Sylvester MD Primary Care Provider [phone] [facility], Pcp Primary Care Provider Unavailabl e Encounter Details Date Type Department Care Team Description 01/22/2011 Blackjack Pit Boss Report Medical Records [address] [place] [address]291 Jinny Lainez NP Social History Tobacco Use Types Packs/Day [...] filedocumented in this encounter Care Teams Forest Engineer Relationship Specialty Start Date End Date Lavell Marcos MD [address] [place] [address] 81472 PCP - General 04/06/07 02/08/21 Jennifer Sylvester MD [address] [place] [address] [phone] PCP - General Internal Medicine 02/09/21 01/22/23 [facility], Pcp [address] [place] [address] 64691 PCP - General Internal Medicine 01/23/23 documented as of this encounter
--- OUTSIDE RECORDS SUMMARY | 2025-02-03 08:42 | XMS_ITS | Encounter Summary ---
Author Organization [facility] Address [address] [place] [address] Care Team Providers Care Clinical Radiologist Name Role Phone Lavell Marcos MD Primary Care Provider Jennifer Sylvester MD Primary Care Provider [phone] [facility], Pcp Primary Care Provider Unavailabl e Encounter Details Date Type Department Care Team Description 09/10/2018 Echo Vasc Tech Report Medical Records [address] [place] [address] 91883 Rafat Gregorio MD Social History Tobacco Use [...] filedocumented in this encounter Care Teams Clinical Radiologist Relationship Specialty Start Date End Date Lavell Marcos MD [address] [place] [address] 51135 PCP - General 04/06/07 02/08/21 Jennifer Sylvester MD [address] [place] [address] 68761 PCP - General Internal Medicine 02/09/21 01/22/23 [facility], Pcp [address] [place] [address] 35097 PCP - General Internal Medicine 01/23/23 documented as of this encounter
--- OUTSIDE RECORDS SUMMARY | 2025-02-03 08:42 | XMS_ITS | Encounter Summary ---
Author Organization [facility] Address [address] [place] [address] Care Team Providers Care Underground Heavy Equipment Operator Name Role Phone Lavell Marcos MD Primary Care Provider [phone] Jennifer Sylvester MD Primary Care Provider [phone] [facility], Pcp Primary Care Provider Unavailabl e Encounter Details Date Type Department Care Team Description 05/25/2020 Hearing Aid Repairer Report Medical Records [address] [place] [address] 40531 Eduardo Lino MD Social History Tobacco Use [...] on filedocumented in this encounter Care Teams Underground Heavy Equipment Operator Relationship Specialty Start Date End Date Lavell Marcos MD [address] [place] [address] 43082 PCP - General 04/06/07 02/08/21 Jennifer Sylvester MD [address] [place] [address] 74175 PCP - General Internal Medicine 02/09/21 01/22/23 [facility], Pcp [address] [place] [address] 44062 PCP - General Internal Medicine 01/23/23 documented as of this encounter
--- OUTSIDE RECORDS SUMMARY | 2025-02-03 08:42 | XMS_ITS | Encounter Summary ---
Author Organization [facility] Address [address] [place] [address] Care Team Providers Care Abalone Fisherman Name Role Phone Lavell Marcos MD Primary Care Provider [phone] Jennifer Sylvester MD Primary Care Provider [phone] [facility], Pcp Primary Care Provider Unavailabl e Encounter Details Date Type Department Care Team Description 04/10/2020 Conservation Worker Report Medical Records [address] [place] [address] 34321 Johnna Serna MD Social History Tobacco Use [...] on filedocumented in this encounter Care Teams Abalone Fisherman Relationship Specialty Start Date End Date Lavell Marcos MD [address] [place] [address] 04580 PCP - General 04/06/07 02/08/21 Jennifer Sylvester MD [address] [place] [address] 60177 PCP - General Internal Medicine 02/09/21 01/22/23 [facility], Pcp [address] [place] [address] 40348 PCP - General Internal Medicine 01/23/23 documented as of this encounter
--- OUTSIDE RECORDS SUMMARY | 2025-02-03 08:42 | XMS_ITS | Encounter Summary ---
Author Organization [facility] Address [address] [place] [address] Care Team Providers Care Dosimetrist Name Role Phone Jennifer Sylvester MD Primary Care Provider [phone] [facility], Pcp Primary Care Provider Unavailabl e Encounter Details Date Type Department Care Team Description 07/16/2021 Executor Of Estate Report Medical Records [address] [place] [address] 45304 Eduardo Lino MD Social History Tobacco Use [...] on filedocumented in this encounter Care Teams Dosimetrist Relationship Specialty Start Date End Date Jennifer Sylvester MD [address] [place] [address] [phone] PCP - General Internal Medicine 02/09/21 01/22/23 [facility], Pcp [address] [place] [address] 43158 PCP - General Internal Medicine 01/23/23 documented as of this encounter
--- OUTSIDE RECORDS SUMMARY | 2025-02-03 08:42 | XMS_ITS | Encounter Summary ---
Author Organization [facility] Address [address] [place] [address] Care Team Providers Care Fleet Sales Manager Name Role Phone Lavell Marcos MD Primary Care Provider [phone] Jennifer Sylvester MD Primary Care Provider [phone] [facility], Pcp Primary Care Provider Unavailabl e Encounter Details Date Type Department Care Team Description 06/18/2018 Refined Syrup Operator Report Medical Records [address] [place] [address] 95456 Reji White MD [address] [place] [address] 92595 Social History Tobacco Use Types Packs/Day Years [...] on filedocumented in this encounter Care Teams Fleet Sales Manager Relationship Specialty Start Date End Date Lavell Marcos MD [address] [place] [address] 70434 PCP - General 04/06/07 02/08/21 Jennifer Sylvester MD [address] [place] [address] 62116 PCP - General Internal Medicine 02/09/21 01/22/23 [facility], Pcp [address] [place] [address] 80211 PCP - General Internal Medicine 01/23/23 documented as of this encounter
--- OUTSIDE RECORDS SUMMARY | 2025-02-03 08:42 | XMS_ITS | Encounter Summary ---
Author Organization [facility] Address [address] [place] [address] Care Team Providers Care Buffer Copper Name Role Phone Lavell Marcos MD Primary Care Provider Jennifer Sylvester MD Primary Care Provider [phone] [facility], Pcp Primary Care Provider Unavailabl e Reason for Visit * Reason Onset Date Comments Echocardiogram 11/19/2011 Encounter Details Date Type Department Care Team Description 11/19/2011 Telephone Cardiology - [place] [address] [place], [place] [phone] Lakia Enriquez, MARI [address] [place], [place] [phone] Echocardiogram Social History Tobacco Use Types Packs/Day [...] for the echcocardiogram has been faxed to [address] to be done documented in this encounter Plan of Treatment Not on file documented as of this encounter Visit Diagnoses Not on filedocumented in this encounter Care Teams Buffer Copper Relationship Specialty Start Date End Date Lavell Marcos MD [address] [place] [address] 94594 PCP - General 04/06/07 02/08/21 Jennifer Sylvester MD [address] [place] [address] 01020 PCP - General Internal Medicine 02/09/21 01/22/23 [facility], Pcp [address] [place] [address] 59324 PCP - General Internal Medicine 01/23/23 documented as of this encounter
--- OUTSIDE RECORDS SUMMARY | 2025-02-03 08:42 | XMS_ITS | Encounter Summary ---
Author Organization [facility] Address [address] [place] [address] Care Team Providers Care Department Manager Name Role Phone Lavell Marcos MD Primary Care Provider [phone] Jennifer Sylvester MD Primary Care Provider [phone] [facility], Pcp Primary Care Provider Unavailabl e Encounter Details Date Type Department Care Team Description 09/21/2014 Bricklayer Report Medical Records [address] [place] [address] 140[address] [facility] [address] [place] [address] Social History Tobacco Use Types Packs/Day Years [...] on filedocumented in this encounter Care Teams Department Manager Relationship Specialty Start Date End Date Lavell Marcos MD [address] [place] [address] 98031 PCP - General 04/06/07 02/08/21 Jennifer Sylvester MD [address] [place] [address] 10079 PCP - General Internal Medicine 02/09/21 01/22/23 [facility], Pcp [address] [place] [address] 63609 PCP - General Internal Medicine 01/23/23 documented as of this encounter
--- OUTSIDE RECORDS SUMMARY | 2025-02-03 08:42 | XMS_ITS | Encounter Summary ---
Author Organization [facility] Address [address] [place] [address] Care Team Providers Care Rehabilitation Program Manager Name Role Phone Lavell Marcos MD Primary Care Provider [phone] Jennifer Sylvester MD Primary Care Provider [phone] [facility], Pcp Primary Care Provider Unavaillocated [facility] e Encounter Details Date Type Department Care Team Description 01/07/2019 Assistant Golf Professional Report Medical Records [address] [place] [address] 67249 Abstract, Provider Social History Tobacco Use Types [...] on filedocumented in this encounter Care Teams Rehabilitation Program Manager Relationship Specialty Start Date End Date Lavell Marcos MD [address] [place] [address] 66964 PCP - General 04/06/07 02/08/21 Jennifer Sylvester MD [address] [place] [address] [phone] PCP - General Internal Medicine 02/09/21 01/22/23 [facility], Pcp [address] [place] [address] 40288 PCP - General Internal Medicine 01/23/23 documented as of this encounter
--- OUTSIDE RECORDS SUMMARY | 2025-02-03 08:42 | XMS_ITS | Encounter Summary ---
Author Organization [facility] Address [address] [place] [address] Care Team Providers Care Rum Processing Operator Name Role Phone Lavell Marcos MD Primary Care Provider [phone] Jennifer Sylvester MD Primary Care Provider [phone] [facility], Pcp Primary Care [facility] Encounter Details Date Type Department Care Team Description 11/27/2018 Pt. Non Urgent Medic al Question Adult Medicine [address] [address] Luis Miguel Gomez MD Social History Tobacco [...] on filedocumented in this encounter Care Teams Rum Processing Operator Relationship Specialty Start Date End Date Lavell Marcos MD [address] [place] [address] 24056 PCP - General 04/06/07 02/08/21 Jennifer Sylvester MD [address] [place] [address] [phone] PCP - General Internal Medicine 02/09/21 01/22/23 Community, [address] [address] PCP - General Internal Medicine 01/23/23 documented as of this encounter
--- OUTSIDE RECORDS SUMMARY | 2025-02-03 08:42 | XMS_ITS | Encounter Summary ---
Author Organization [facility] Address [address] [place] [address] Care Team Providers Care Public Health Staff Nurse Name Role Phone Lavell Marcos MD Primary Care Provider [phone] Jennifer Sylvester MD Primary Care Provider [phone] Count Includes [facility], Pcp Primary Care Provider Unavailabl e Encounter Details Date Type Department Care Team Description 02/07/2020 Associate Chemist Report Medical Records [address] [place] [address] 89247 Raj Hardwick MD Social History Tobacco Use [...] filedocumented in this encounter Care Teams Public Health Staff Nurse Relationship Specialty Start Date End Date Lavell Marcos MD [address] [place] [address] 54412 PCP - General 04/06/07 02/08/21 Jennifer Sylvester MD [address] [place] [address] [phone] PCP - General Internal Medicine 02/09/21 01/22/23 [facility], Pcp [address] [place] [address] 98163 PCP - General Internal Medicine 01/23/23 documented as of this encounter
--- OUTSIDE RECORDS SUMMARY | 2025-02-03 08:42 | XMS_ITS | Encounter Summary ---
Author Organization [facility] Address [address] [place] [address] Care Team Providers Care Client Support Consultant Name Role Phone Lavell Marcos MD Primary Care Provider [phone] Jennifer Sylvester MD Primary Care Provider [phone] [facility], Pcp Primary Care Provider Unavailabl e Reason for Visit * Reason Onset Date Comments Diarrhea 04/26/2011 Encounter Details Date Type Department Care Team Description 04/26/2011 Telephone Adult Medicine [facility] [address] [place] [address] 22272 Lavell Marcos MD [address] [place] [address] 88548 Diarrhea Social History Tobacco Use Types Packs/Day Years Used Date Smoking Tobacco: Never Alcohol Use Standard Drinks/Week Comments Not Asked 0 (1 standard drink = 0.6 oz pur e alcohol) Sex Assigned at Date Recorded Not on file Job Start Date Occupation Industry Not on file Not on file Not on file documented as of this encounter Miscellaneous Notes * Telephone Encounter - Pedro Powers L.P.N. - 04/26/2011 9:04 AM EDT Patient reports was seen yesterday for her weight loss she called and wants to be seen again she believes her weight loss is due to overactive bowels that she has been having for awhile yesterday after her doctor visit she had diarrhea all day every time she ate something she has to go to the [place] she states I put out more than I take in And its been going on for some time Either it is formed stool or diarrhea she forgot to talk about it yesterday with Dr. Marcos Appt today with Dr. Marcos at 10 * Telephone Encounter - Christy Trevino - 04/26/2011 8:45 AM EDT Symptoms patient is presenting: diarrhea. Pt states that she was in the v[place] every time she ate something yesterday. And she feels like she expelled more than she took in. She thinks this could be why she is losing weight. How long has patient had these symptoms?: yesterday PCP: Lavell Marcos MD Payor: MELISSA Plan: POS $15 [employer] [id number] Product Type: POS Asy-yep-Mlgayrt documented in this encounter Plan of Treatment Not on file documented as of this encounter Visit Diagnoses Not on filedocumented in this encounter Care Teams Client Support Consultant Relationship Specialty Start Date End Date Lavell Marcos MD [address] [place] [address] 76877 PCP - General 04/06/07 02/08/21 Jennifer Sylvester MD [address] [place] [address] 96116 PCP - General Internal Medicine 02/09/21 01/22/23 [facility] [address] [address] PCP - General Internal Medicine 01/23/23 documented as of this encounter
--- OUTSIDE RECORDS SUMMARY | 2025-02-03 08:42 | XMS_ITS | Encounter Summary ---
Author Organization [facility] Address [address] [place] [address] Care Team Providers Care Director Of Neighborhood Service Center Name Role Phone Jennifer Sylvester MD Primary Care Provider [phone] [facility], Pcp Primary Care Provider Unavailabl e Encounter Details Date Type Department Care Team Description 02/22/2021 Biophysics Professor Report Medical Records [address] [place] [address] 38137 Melyssa Garcia MD Social History Tobacco Use [...] in this encounter Care Teams Director Of Neighborhood Service Center Relationship Specialty Start Date End Date Jennifer Sylvester MD [address] [place] [address] [phone] PCP - General Internal Medicine 02/09/21 01/22/23 [facility], Pcp [address] [place] [address] 44258 PCP - General Internal Medicine 01/23/23 documented as of this encounter
--- OUTSIDE RECORDS SUMMARY | 2025-02-03 08:42 | XMS_ITS | Encounter Summary ---
Author Organization [facility] Address [address] [place] [address] Care Team Providers Care Safety Net Maker Name Role Phone Jennifer Sylvester MD Primary Care Provider [facility], Pcp Primary Care Provider Unavailletty e Encounter Details Date Type Department Care Team Description 05/14/2021 Director Hr Communications Report Medical Records [address] [place] [address] 21899 Bib Sandoval MD Social History Tobacco Use [...] on filedocumented in this encounter Care Teams Safety Net Maker Relationship Specialty Start Date End Date Jennifer Sylvester MD [address] [place] [address] [phone] PCP - General Internal Medicine 02/09/21 01/22/23 [facility], Pcp [address] [place] [address] 88630 PCP - General Internal Medicine 01/23/23 documented as of this encounter
--- OUTSIDE RECORDS SUMMARY | 2025-02-03 08:42 | XMS_ITS | Encounter Summary ---
Author Organization [facility] Address [address] [place] [address] Care Team Providers Care Mechanical Manufacturing Technician Name Role Phone Lavell Marcos MD Primary Care Provider [phone] Jennifer Sylvester MD Primary Care Provider [phone] [facility], Pcp Primary Care Provider Unavailabl e Encounter Details Date Type Department Care Team Description 01/02/2019 Manager Wastewater Report Medical Records [address] [place] [address] 79067 Johnna Serna MD Social History Tobacco Use [...] on filedocumented in this encounter Care Teams Mechanical Manufacturing Technician Relationship Specialty Start Date End Date Lavell Marcos MD [address] [place] [address] 63923 PCP - General 04/06/07 02/08/21 Jennifer Sylvester MD [address] [place] [address] 79773 PCP - General Internal Medicine 02/09/21 01/22/23 [facility], Pcp [address] [place] [address] 74882 PCP - General Internal Medicine 01/23/23 documented as of this encounter
--- OUTSIDE RECORDS SUMMARY | 2025-02-03 08:42 | XMS_ITS ---
Author Organization [facility] Address [address] [place] [address] Care Team Providers Care Golf Cart Maker Name Role Phone Abby Potter MD Primary Care Provider Nadine Tai Unavailable [phone] REASON FOR VISIT rethinking colonoscopy Encounters Encounter Location Date Provider Diagnosis [facility] [address] [place] [address] 08/26/2024 Nadine Braga Plan Of Treatment No Information Progress Notes * TIMMY NAVARRODOB:1945 (78 yo F)Acc No.[id number]:08/26/2024 Patient:?MELANIETIMMY :1945???Age:78 Y???Sex:Female Address:[address] [place], [place] [address] [phone] * true * Date:? Generated for Carmelina baker/[place]/eTransmitting on:?02/03/2025 08:41 AM EDT
--- OUTSIDE RECORDS SUMMARY | 2025-02-03 08:42 | XMS_ITS | Encounter Summary ---
Author Organization [facility] Address [address] [place] [address] Care Team Providers Care Ladle Patcher Name Role Phone Lavell Marcos MD Primary Care Provider [phone] Jennifer Sylvester MD Primary Care Provider [phone] [facility], Pcp Primary Care Provider Unavailabl e Encounter Details Date Type Department Care Team Description 09/12/2014 Obstetrical Nurse Report Medical Records [address] [place] [address] [facility] [address] [place] [address] Social History Tobacco Use Types Packs/Day Years [...] on filedocumented in this encounter Care Teams Ladle Patcher Relationship Specialty Start Date End Date Lavell Marcos MD [address] [place] [address] 45798 PCP - General 04/06/07 02/08/21 Jennifer Sylvester MD [address] [place] [address] 56489 PCP - General Internal Medicine 02/09/21 01/22/23 [facility], Pcp [address] [place] [address] 46294 PCP - General Internal Medicine 01/23/23 documented as of this encounter
--- OUTSIDE RECORDS SUMMARY | 2025-02-03 08:42 | XMS_ITS | Encounter Summary ---
Author Organization [facility] Address [address] [place] [address] Care Team Providers Care Photo Intern Name Role Phone Lavell Marcos MD Primary Care Provider [phone] Jennifer Sylvester MD Primary Care Provider [phone] [facility], Pcp Primary Care Provider Unavailtrios health e Encounter Details Date Type Department Care Team Description 05/11/2020 Prestidigitator Report Medical Records [address] [place] [address] 40497 Abstract, Provider Social History Tobacco Use Types [...] on filedocumented in this encounter Care Teams Photo Intern Relationship Specialty Start Date End Date Lavell Marcos MD [address] [place] [address] 23167 PCP - General 04/06/07 02/08/21 Jennifer Sylvester MD [address] [place] [address] [phone] PCP - General Internal Medicine 02/09/21 01/22/23 [facility], Pcp [address] [place] [address] 15770 PCP - General Internal Medicine 01/23/23 documented as of this encounter
--- OUTSIDE RECORDS SUMMARY | 2025-02-03 08:42 | XMS_ITS | Encounter Summary ---
Author Organization [facility] Address [address] [place] [address] Care Team Providers Care Air Compressor Mechanic Name Role Phone Lavell Marcos MD Primary Care Provider [phone] Jennifer Sylvester MD Primary Care Provider [facility], Pcp Primary Care Provider Unavailabl e Encounter Details Date Type Department Care Team Description 01/06/2019 Release of Information Medical Records [address] [place], [place] [id number] Abstract, Provider Social History Tobacco Use Types [...] on filedocumented in this encounter Care Teams Air Compressor Mechanic Relationship Specialty Start Date End Date Lavell Marcos MD [address] [place] [address] 60652 PCP - General 04/06/07 02/08/21 Jennifer Sylvester MD [address] [place] [address] [phone] PCP - General Internal Medicine 02/09/21 01/22/23 [facility], Pcp [address] [place] [address] 69677 PCP - General Internal Medicine 01/23/23 documented as of this encounter
--- OUTSIDE RECORDS SUMMARY | 2025-02-03 08:42 | XMS_ITS | Encounter Summary ---
Author Organization [facility] Address [address] [place] [address] Care Team Providers Care Geophysics Teacher Name Role Phone Lavell Marcos MD Primary Care Provider Jennifer Sylvester MD Primary Care Provider [phone] [facility], Pcp Primary Care Provider [facility] e Encounter Details Date Type Department Care Team Description 04/24/2015 Griddle Attendant Report Medical Records [address] [place] [address] 08694 Idalia Benito MD Social History Tobacco Use [...] on filedocumented in this encounter Care Teams Geophysics Teacher Relationship Specialty Start Date End Date Lavell Marcos MD [address] [place] [address] 16004 PCP - General 04/06/07 02/08/21 Jennifer Sylvester MD [address] [place] [address] 80121 PCP - General Internal Medicine 02/09/21 01/22/23 [facility], Pcp [address] [place] [address] 41077 PCP - General Internal Medicine 01/23/23 documented as of this encounter
--- OUTSIDE RECORDS SUMMARY | 2025-02-03 08:42 | XMS_ITS | Encounter Summary ---
Author Organization [facility] Address [address] [place] [address] Care Team Providers Care Central Supply Manager Name Role Phone Lavell Marcos MD Primary Care Provider Jennifer Sylvester MD Primary Care Provider [phone] [facility], Pcp Primary Care Provider Unavailabl e Encounter Details Date Type Department Care Team Description 01/21/2020 Blind Aide Report Medical Records [address] [place] [address] 629[address] Eduardo Lino MD Social History Tobacco Use [...] in this encounter Care Teams Central Supply Manager Relationship Specialty Start Date End Date Lavell Marcos MD [address] [place] [address] 80725 PCP - General 04/06/07 02/08/21 Jennifer Sylvester MD [address] [place] [address] 92012 PCP - General Internal Medicine 02/09/21 01/22/23 [facility], Pcp [address] [place] [address] 10422 PCP - General Internal Medicine 01/23/23 documented as of this encounter
--- OUTSIDE RECORDS SUMMARY | 2025-02-03 08:42 | XMS_ITS | Encounter Summary ---
Author Organization [facility] Address [address] [place] [address] Care Team Providers Care System Software Programmer Name Role Phone Lavell Marcos MD Primary Care Provider Jennifer Sylvester MD Primary Care Provider [phone] [facility], Pcp Primary Care Provider [facility] e Encounter Details Date Type Department Care Team Description 03/21/2015 Water Pollution Control Inspector Report Medical Records [address] [place] [address] 11798 Cassius Paniagua PA-C Social History Tobacco Use Types Packs/Day Years [...] filedocumented in this encounter Care Teams System Software Programmer Relationship Specialty Start Date End Date Lavell Marcos MD [address] [place] [address] 07033 PCP - General 04/06/07 02/08/21 Jennifer Sylvester MD [address] [place] [address] 34003 PCP - General Internal Medicine 02/09/21 01/22/23 [facility], Pcp [address] [place] [address] 82793 PCP - General Internal Medicine 01/23/23 documented as of this encounter
--- OUTSIDE RECORDS SUMMARY | 2025-02-03 08:42 | XMS_ITS | Encounter Summary ---
Author Organization [facility] Address [address] [place] [address] Care Team Providers Care Wood Flour Miller Name Role Phone Jennifer Sylvester MD Primary Care Provider [phone] [facility], Pcp Primary Care Provider Unavailletty e Encounter Details Date Type Department Care Team Description 02/26/2021 Mold Runner Report Medical Records [address] [place] [address] Bib Sandoval MD Social History Tobacco Use [...] on filedocumented in this encounter Care Teams Wood Flour Miller Relationship Specialty Start Date End Date Jennifer Sylvester MD [address] [place] [address] [phone] PCP - General Internal Medicine 02/09/21 01/22/23 [facility], Pcp [address] [place] [address] PCP - General Internal Medicine 01/23/23 documented as of this encounter
--- OUTSIDE RECORDS SUMMARY | 2025-02-03 08:42 | XMS_ITS | Encounter Summary ---
Author Organization [facility] Address [address] [place] [address] Care Team Providers Care History Card Clerk Name Role Phone Lavell Marcos MD Primary Care Provider Jenniefr Sylvester MD Primary Care Provider [phone] [facility], Pcp Primary Care Provider [facility] e Encounter Details Date Type Department Care Team Description 11/16/2014 Rotary Shear Cutter Report Medical Records [address] [place], [place] [id number] Rich Beatty Social History Tobacco Use Types [...] on filedocumented in this encounter Care Teams History Card Clerk Relationship Specialty Start Date End Date Lavell Marcos MD [address] [place] [address] 11933 PCP - General 04/06/07 02/08/21 Jennifer Sylvester MD [address] [place] [address] 08676 PCP - General Internal Medicine 02/09/21 01/22/23 [facility], Pcp [address] [place] [address] 44257 PCP - General Internal Medicine 01/23/23 documented as of this encounter
--- OUTSIDE RECORDS SUMMARY | 2025-02-03 08:42 | XMS_ITS | Encounter Summary ---
Author Organization [facility] Address [address] [place] [address] Care Team Providers Care Cone Chocolate Dipper Name Role Phone Lavell Marcos MD Primary Care Provider [phone] Jennifer Sylvester MD Primary Care Provider [phone] [facility], Pcp Primary Care Provider Unavailabl e Encounter Details Date Type Department Care Team Description 08/07/2018 Orders Only Pulmonology - [address] [place] [phone] Eduardo Lino MD Social History Tobacco [...] on filedocumented in this encounter Care Teams Cone Chocolate Dipper Relationship Specialty Start Date End Date Lavell Marcos MD [address] [place] [address] 23877 PCP - General 04/06/07 02/08/21 Jennifer Sylvester MD [address] [place] [address] [phone] PCP - General Internal Medicine 02/09/21 01/22/23 [facility], [address] [address] PCP - General Internal Medicine 01/23/23 documented as of this encounter
--- OUTSIDE RECORDS SUMMARY | 2025-02-03 08:42 | XMS_ITS | Encounter Summary ---
Author Organization [facility] Address [address] [place] [address] Care Team Providers Care [place] Larder Name Role Phone Lavell Marcos MD Primary Care Provider [phone] Jennifer Sylvester MD Primary Care Provider [phone] [facility], Pcp Primary Care Provider Unavailabl e Encounter Details Date Type Department Care Team Description 05/30/2020 Electrical And Instrumentation Mechanic Report Medical Records [address] [place] [address] Reji White MD [address] [place] [address] Social History Tobacco Use Types Packs/Day Years [...] on filedocumented in this encounter Care Teams [place] Larder Relationship Specialty Start Date End Date Lavell Marcos MD [address] [place] [address] PCP - General 04/06/07 02/08/21 Jennifer Sylvester MD [address] [place] [address] 09017 PCP - General Internal Medicine 02/09/21 01/22/23 [facility], Pcp [address] [place] [address]6720 PCP - General Internal Medicine 01/23/23 documented as of this encounter
--- OUTSIDE RECORDS SUMMARY | 2025-02-03 08:42 | XMS_ITS | Encounter Summary ---
Author Organization [facility] Address [address] [place] [address] Care Team Providers Care Women'S Basketball Coach Name Role Phone Lavell Marcos MD Primary Care Provider [phone] Jennifer Sylvester MD Primary Care Provider [phone] [facility], Pcp Primary Care Provider [facility] e Encounter Details Date Type Department Care Team Description 07/15/2014 Storage Solutions Architect Report Medical Records [address] [place], [place] [phone] Rich Beatty Social History Tobacco Use Types [...] on filedocumented in this encounter Care Teams Women'S Basketball Coach Relationship Specialty Start Date End Date Lavell Marcos MD [address] [place] [address]105 PCP - General 04/06/07 02/08/21 Jennifer Sylvester MD [address] [place] [address]67 PCP - General Internal Medicine 02/09/21 01/22/23 [facility], Pcp [address] [place] [address] PCP - General Internal Medicine 01/23/23 documented as of this encounter
--- OUTSIDE RECORDS SUMMARY | 2025-02-03 08:42 | XMS_ITS | Encounter Summary ---
Author Organization [facility] Address [address] [place] [address] Care Team Providers Care Supervisor Whipped Topping Name Role Phone Lavell Marcos MD Primary Care Provider Jennifer Sylvester MD Primary Care Provider [phone] [facility], Pcp Primary Care Provider Unavailabl e Encounter Details Date Type Department Care Team Description 12/10/2018 Outside Sales Manager Report Medical Records [address] [place] [address] Rafat Gregorio MD Social History Tobacco Use [...] filedocumented in this encounter Care Teams Supervisor Whipped Topping Relationship Specialty Start Date End Date Lavell Marcos MD [address] [place] [address] PCP - General 04/06/07 02/08/21 Jennifer Sylvester MD [address] [place] [address] 60268 PCP - General Internal Medicine 02/09/21 01/22/23 [facility], Pcp [address] [place] [address] 34982 PCP - General Internal Medicine 01/23/23 documented as of this encounter
--- OUTSIDE RECORDS SUMMARY | 2025-02-03 08:42 | XMS_ITS | Encounter Summary ---
Author Organization [facility] Address [address] [place] [address] Care Team Providers Care Special Education Paraeducator Name Role Phone Lavell Marcos MD Primary Care Provider [phone] Jennifer Sylvester MD Primary Care Provider [phone] [facility], Pcp Primary Care Provider [facility] e Encounter Details Date Type Department Care Team Description 11/26/2018 Pt. Non Urgent Medic al Question Adult Medicine [address] [phone] Luis Miguel Gomez MD Social History Tobacco [...] in this encounter Care Teams Special Education Paraeducator Relationship Specialty Start Date End Date Lavell Marcos MD [address] [place] [address]684 PCP - General 04/06/07 02/08/21 Jennifer Sylvester MD [address] [place] [address] 41908 PCP - General Internal Medicine 02/09/21 01/22/23 [facility], [address] [address] PCP - General Internal Medicine 01/23/23 documented as of this encounter
--- OUTSIDE RECORDS SUMMARY | 2025-02-03 08:42 | XMS_ITS | Encounter Summary ---
Author Organization [facility] Address [address] [place] [address] Care Team Providers Care Cashier Ticket Selling Name Role Phone Jennifer Sylvester MD Primary Care Provider [facility], Pcp Primary Care Provider Unavailabl e Reason for Visit * Reason Onset Date Comments Breathing Problems 06/12/2021 Encounter Details Date Type Department Care Team Description 06/12/2021 Telephone Cardio PVC POC [phone] [facility] [address] [place] [address] Reji White MD [address] [place] [address] Breathing Problems Social History Tobacco Use Types [...] from yesterday be faxed to triage fax [phone] * Telephone Encounter - Christy Griffin - 06/13/2021 8:27 AM EDT Patient reports saw assistant boiler operator yesterday (Dr. Eduardo Lino -Manufacturer'S Representative ) and was told to call for a cardiology appt andressa Per patient, assistant boiler operator told her she may have blocked arteries. [...] p/u. Will try again soon phone # [phone] * Telephone Encounter - Ann Marie Ferrer - 06/12/2021 3:35 PM EDT 06/12/21 Pt looking to speak to care team regarding breathing problems. Pt can be reached at [phone] documented in this encounter Plan of Treatment Not on file documented as of this encounter Visit Diagnoses Not on filedocumented in this encounter Care Teams Cashier Ticket Selling Relationship Specialty Start Date End Date Jennifer Sylvester MD [address] [place] [address] PCP - General Internal Medicine 02/09/21 01/22/23 [facility], [place] [address] PCP - General Internal Medicine 01/23/23 documented as of this encounter
--- OUTSIDE RECORDS SUMMARY | 2025-02-03 08:42 | XMS_ITS | Encounter Summary ---
Author Organization [facility] Address [address] [place] [address] Care Team Providers Care Dental Sales Representative Name Role Phone Lavell Marcos MD Primary Care Provider [phone] Jennifer Sylvester MD Primary Care Provider [phone] [facility], Pcp Primary Care Provider Unavailabl e Reason for Visit * Reason Onset Date Comments TEST RESULTS 11/10/2018 Encounter Details Date Type Department Care Team Description 11/10/2018 Telephone [facility] Medicine - [address] [phone] Luis Miguel Gomez MD TEST RESULTS Social [...] on filedocumented in this encounter Care Teams Dental Sales Representative Relationship Specialty Start Date End Date Lavell Marcos MD [address] [place] [address] 32816 PCP - General 04/06/07 02/08/21 Jennifer Sylvester MD [address] [place] [address]206 PCP - General Internal Medicine 02/09/21 01/22/[address] [address] PCP - General Internal Medicine 01/23/23 documented as of this encounter
--- NOTE | 2025-02-03 08:43 | MHC.PC.OV ---
Vital Signs 02/03/25 08:44 Height 5 ft Weight 108 lb BMI 21.1 BP 130/68 Blood Pressure Location Rt brachial Position Sitting Pulse 69 Pulse Source Pulse Oximeter Pulse Oximetry (%) 97 Oxygen Delivery Method Room Air Intake Visit Reasons: ed Allergies naproxen [From NAPROSYN] Allergy (Severe, Verified 02/03/25 08:45) sensitivity niacin [From NIASPAN EXTENDED-RELEASE] Allergy (Severe, Verified 02/03/25 08:45) Rash clarithromycin [From BIAXIN] Allergy (Mild, Verified 02/03/25 08:45) sensitivity codeine [CODEINE] Allergy (Mild, Verified 02/03/25 08:45) Itching esomeprazole [From Nexium] Allergy (Mild, Verified 02/03/25 08:45) Hives fluconazole [From DIFLUCAN] Allergy (Mild, Verified 02/03/25 08:45) sensitivity gatifloxacin [From TEQUIN] Allergy (Mild, Verified 02/03/25 08:45) sensitivity hydrocodone [From Vicodin] Allergy (Mild, Verified 02/03/25 08:45) Rash levofloxacin [From Levaquin] Allergy (Mild, Verified 02/03/25 08:45) sensitivity oxycodone [From Percocet] Allergy (Mild, Verified 02/03/25 08:45) Itching quinidine [QUINIDINE] Allergy (Mild, Verified 02/03/25 08:45) sensitivity Sulfa (Sulfonamide Antibiotics) [SULFA (SULFONAMIDE ANTIBIOTICS)] Allergy (Mild, Verified 02/03/25 08:45) Rash terfenadine [From SELDANE] Allergy (Mild, Verified 02/03/25 08:45) sensitivity tetracycline [TETRACYCLINE] Allergy (Mild, Verified 02/03/25 08:45) sensitivity cefaclor [From CECLOR] Adverse Reaction (Severe, Verified 02/03/25 08:45) Unknown abaloparatide [From Tymlos] Adverse Reaction (Intermediate, Verified 02/03/25 08:45) Dizziness cefdinir Adverse Reaction (Intermediate, Verified 02/03/25 08:45) Stomach Upset montelukast [From Singulair] Adverse Reaction (Mild, Verified 02/03/25 08:45) Headache topiramate [From TOPAMAX] Adverse Reaction (Mild, Verified 02/03/25 08:45) Stomach Upset Medication List - Last Reconciled 02/03/25 by Abby Potter MD albuterol sulfate 90 mcg/actuation 2 inhalations inhalation Q6H PRN 30 days amoxicillin 500 mg PO TID atorvastatin 40 mg PO DAILY cholecalciferol (vitamin D3) TAKE 1 CAPSULE BY MOUTH DAILY Eliquis (apixaban) 5 mg PO BID 90 days NS estradiol 0.01%(0.1mg/gram) (Estrace) pea size amount to urethra vaginally daily flash glucose scanning reader (FreeStyle [place] 14 Day [place]) As directed flash glucose sensor (FreeStyle [place] 14 Day Sensor kit) As directed Flonase Allergy Relief 50 mcg/actuation (fluticasone propionate) 2 sprays intranasal DAILY NS insulin syringe-needle U-100 Use daily with Tymlos Lexapro (escitalopram oxalate) 10 mg PO DAILY NS lidocaine 4% (Lidocaine Pain Relief) 1 patch See Protocol transdermal DAILY loratadine 10 mg PO DAILY PRN nebulizers As directed polyethylene glycol 3350 (Miralax) 17 grams PO DAILY 30 days promethazine 12.5 mg PO Q6H PRN NS sennosides-docusate sodium 8.6-50 mg (Senna with Docusate Sodium) 2 tab-caps (2 x 8.6-50 mg) PO BEDTIME 30 days tramadol 50 mg PO BID PRN 21 days Wellbutrin XL (bupropion HCl) 150 mg PO QAM NS Xanax (alprazolam) 0.5 mg PO BEDTIME PRN NS Tobacco use date assessed: 02/03/25 Fall risk assessment: No Falls in past year Last assessed Fall Risk: 02/03/25 Dental Screening Dental Screen Date: 11/25/24 [facility] Medical History Sinus congestion Cough Weight loss Polyarthralgia Fall Shoulder pain, right Back pain Nausea Palpitation Headache, post-traumatic, acute Scalp irritation Anemia Encounter for vitamin deficiency screening Renal cyst Dense breast Breast cancer screening by mammogram Acute bronchitis Ocular migraine Hyperlipidemia History of CVA (cerebrovascular accident) (~2020) Tubular adenoma of colon (~2005) SERG (obstructive sleep apnea) Nasal vestibulitis Degeneration, intervertebral disc, cervical Dry eye PONV (postoperative nausea and vomiting) Arthritis of neck Cerebral microvascular disease Atherosclerotic cardiovascular disease Precordial chest pain URI (upper respiratory infection) Overactive bladder Microscopic hematuria Urinary urgency Osteoporosis (~2000) Mycobacterial disease GERD (gastroesophageal reflux disease) Pulmonary nodules COPD (chronic obstructive pulmonary disease) Surgical History History of fusion of cervical spine History of sinus surgery History of colonoscopy History of esophagogastroduodenoscopy (EGD) History of bladder suspension procedure Family History Son No problems noted. Social History Household Members: Spouse Housing: Condominium Do you presently have visiting nurse or other home services: No Alcohol intake: never Patient Tobacco Use Status: Never used Tobacco Tobacco use type: Cigarette Years Smoked: parent and smoker e-Cigarette/Vaping Use: Never Used Second Hand Smoke Exposure: Yes Advance Directives Date on File: 08/16/20 service: No Current occupational status: retired Current occupation: right hand Cognitive needs: No Hearing needs: Yes (hearing aides) Vision needs: Yes (Glasses) Questionnaire Thrive Questionnaire Date Thrive assessed: 11/25/24 SAVANNAH-7 AMB Questionnaire SAVANNAH-7 Date SAVANNAH - 7 assessed: 11/25/24 Source: Developed by Drs. Augie Espinoza, Yue Griffin, Michael Gallo and colleagues, with an educational aniya from [employer]. Physical exam (Primary Care) Vital Signs: Last Vital Signs Pulse 69 02/03/25 08:44 BP 130/68 02/03/25 08:44 Pulse Ox 97 02/03/25 08:44 Oxygen Delivery Method Room Air 02/03/25 08:44 BMI result Body Mass Index 21.1 Tobacco/Smoking Status: Tobacco use Status Tobacco use date assessed 02/03/25 02/03/25 08:50 Patient Tobacco Use Status Never used Tobacco 02/03/25 08:50 Tobacco use type Cigarette 02/03/25 08:50 e-Cigarette/Vaping Use Never Used 02/03/25 08:50 Thrive Assessment: Date of Thrive Assessment Date Thrive assessed 11/25/24 02/03/25 08:50 Const General: alert; No acute distress Eyes Conjunctivae: conjunctivae normal Resp Auscultation: clear to auscultation bilaterally Cardio Rate: regular rate Rhythm: regular rhythm GI Inspection: Yes normal to inspection Extrem General: Yes normal to inspection and No edema Coding Level of Care Code Est Pt Level 4 (04717) Complex EM visit Add On G2211 Diagnoses Breast pain N64.4 Generalized anxiety disorder F41.1 History of CVA (cerebrovascular accident) Z86.73 Hyperlipidemia E78.5 Simple chronic bronchitis J41.0 COPD type: chronic bronchitis Chronic bronchitis type: simple Numbness of left hand R20.0 Assessment & Plan Assessment & Plan (1) Breast pain: Code(s): N64.4 - Mastodynia Category: Medical Plan: Reassurance ultrasound and mammogram both negative (2) Generalized anxiety disorder: Code(s): F41.1 - Generalized anxiety disorder Category: Medical Plan: Patient takes Lexapro 10 mg once a day and alprazolam as needed (3) History of CVA (cerebrovascular accident): Onset Date: ~2020 Comment: (right cerebellar hemisphere infarct - tx tPA 08/03/2021) Code(s): Z86.73 - Personal history of transient ischemic attack (TIA), and cerebral infarction without residual deficits Category: Medical Plan: Continuing with anticoagulation with Eliquis and continue to monitor renal function (4) Hyperlipidemia: Code(s): E78.5 - Hyperlipidemia, unspecified Category: Medical Plan: Avoid fried foods, chicken skin, eggs, butter margarine, pastries and meat. Be it pork or beef they have a lot of cholesterol last blood work was in February LDL goal of less than 70 and triglyceride of less than 150 patient on atorvastatin 40 (5) COPD (chronic obstructive pulmonary disease): Code(s): J44.9 - Chronic obstructive pulmonary disease, unspecified Category: Medical Qualifiers: COPD type: chronic bronchitis Chronic bronchitis type: simple Qualified Code(s): J41.0 - Simple chronic bronchitis Plan: On albuterol inhaler (6) Numbness of left hand: Code(s): R20.0 - Anesthesia of skin Category: Medical Plan History of Present Illness The patient is a 79-year-old female presenting with left hand numbness. Initial occurrence was noted on February 02, leading to an emergency room visit. The patient, with a cerebrovascular accident history, was assessed; CT angiogram and MRI were performed, both returning negative for acute neurological changes. Imaging noted sinus-related mucosal thickening and calcifications. Though no prior history of arm numbness is reported, she observes increased numbness with particular movements, aligning with carpal tunnel syndrome activities. The episode's management aligns with a preventive brace, which she owns, but this remains selective in usage due to its restrictive nature. Health Maintenance - Last mammogram and breast ultrasound in January 2025; both showed no significant findings - Blood work in February 2024 with LDL of 54 mg/dL, maintaining well under prescribed targets - Continues on atorvastatin 40 mg for hypercholesterolemia management - Apixaban (Eliquis) ongoing for CVA prophylaxis; monitoring renal function and adjusting lipid profile as per goals - Discussed anxiety management, including Lexapro 10 mg and on-demand alprazolam, with consideration of alternative anxiolytics if necessary Social History - Patient lives with her , who has significant medical issues - Described possible PTSD linked to her 's previous health episodes - Detailed sporadic use of alprazolam to manage acute anxiety episodes Review of Systems - Neurological: Denies dizziness, falls, or changes in consciousness - Respiratory: Denies cough or shortness of breath - Cardiovascular: Denies chest pain - Gastrointestinal: Denies nausea or vomiting - Musculoskeletal: Reports left hand numbness and tingling Physical Exam - Neurological- Normal pulse palpation, symmetrical motor strength, and sensory testing on examination - Musculoskeletal- Full range of motion in shoulders, with the ability to exert normal compensation supervisor strength bilaterally; reports tenderness upon palpation of specific bone (unidentified) without additional swelling or redness Results - Labs: Normal blood count, electrolytes, liver, and renal function - Tests: Negative CT angiogram and MRI for acute neurological events; positive for sinus calcifications and mucosal thickening - Imaging: Mammography and ultrasound of the breast normal Plan The patient's symptoms suggest carpal tunnel syndrome, with the plan to use a wrist brace during rest and proceed with nerve conduction studies. MRI and CT results exclude acute cerebrovascular pathology. Her current regimen of Lexapro for anxiety will continue with a discussion of adjunct treatment options like Wellbutrin or BuSpar contingent on her PTSD history with her spouse. Current management for chronic medical issues remains unchanged, ensuring supervision for lipid levels and anticoagulation effectiveness, with follow-up laboratory testing scheduled in three months. Patient was informed and verbally consented to the use of an ambient scribe for clinic note documentation during this visit. Discussion Notes I explored potential carpal tunnel syndrome in light of the left hand numbness, explaining its mechanism related to repetitive activities and nerve compression. I reassured her of the negative acute imaging findings and maintained her anticoagulation strategy. The patient understood the importance of using a wrist brace and discussed options to address anxiety without relying solely on alprazolam, offering Wellbutrin and BuSpar as alternatives. Testing logistics for nerve conduction and follow-up blood studies were outlined, underscoring their preventative intent. I emphasized monitoring her 's needs while proactively managing her own health, offering continued access to care as needed. Patient Instructions - Wear the wrist brace during rest to alleviate pressure on the median nerve - Continue current medication regimen, including Lexapro and Apixaban - Monitor for any new or worsening symptoms and seek care as necessary - Follow-up for nerve conduction testing as scheduled - Discuss any changes in anxiety or sleep patterns, with emphasis on medication side effects and adjustments - Return for specified follow-up laboratory tests in three months to monitor lipid levels and impact of current medications - Consult provided guidelines on lifestyle management to support health maintenance and avoid exacerbating conditions Orders: Orders NE nerve conduction velocity Today R20.0 - Anesthesia of skin Lipid Panel 3 Months E78.00 - Pure hypercholesterolemia, unspecified, E78.5 - Hyperlipidemia, unspecified Vitamin B12 and Folate 3 Months E78.5 - Hyperlipidemia, unspecified Vitamin D 25-OH Total 3 Months E78.5 - Hyperlipidemia, unspecified Comprehensive Met. Panel 3 Months E78.5 - Hyperlipidemia, unspecified NE electromyogram (EMG) Today R20.0 - Anesthesia of skin Complete Blood Count Auto Diff 3 Months E78.5 - Hyperlipidemia, unspecified Free T4 (Free Thyroxine) 3 Months E78.5 - Hyperlipidemia, unspecified Thyroid Stimulating Hormone 3 Months E78.5 - Hyperlipidemia, unspecified Medications: New Wellbutrin XL (bupropion HCl) 150 mg PO QAM 30 tabs 4RF NS F41.1 - Generalized anxiety disorder
--- OUTSIDE RECORDS SUMMARY | 2025-02-03 08:43 | XMS_ITS | Encounter Summary ---
Author Organization [facility] Address [address] [place] [address] Care Team Providers Care Jewel Blocker And Sawyer Name Role Phone Lavell Marcos MD Primary Care Provider [phone] Jennifer Sylvester MD Primary Care Provider [phone] [facility], Pcp Primary Care Provider Unavailabl e Encounter Details Date Type Department Care Team Description 09/24/2019 Old Medical Records Medical Records [address] [place] [address] Abstract, Provider Social History Tobacco Use Types [...] on filedocumented in this encounter Care Teams Jewel Blocker And Sawyer Relationship Specialty Start Date End Date Lavell Marcos MD [address] [place] [address] 17576 PCP - General 04/06/07 02/08/21 Jennifer Sylvester MD [address] [place] [address] [phone] PCP - General Internal Medicine 02/09/21 01/22/23 [facility], Pcp [address] [place] [address] 70781 PCP - General Internal Medicine 01/23/23 documented as of this encounter
--- OUTSIDE RECORDS SUMMARY | 2025-02-03 08:43 | XMS_ITS ---
Author Organization [facility] Address [address] [facility] [place] [address] Care Team Providers Care Belt Fixer Name Role Phone Abby Potter Primary Care Provider Charity Castro Unavailable [phone] Allergies Allergen (clinical drug ingredient) Drug/Non Drug [...] Calcium Not-Taking Flax Seed Oil Not-Hardy foster Neopit 3 500 400 mg 1 capsule Orally Twice a day Not-Taking Pazeo Not-Taking Doxycycline Not-Taki samuel Crestor 10 mg Not-Hardy foster Atenolol 25 MG 1 tablet Orally Once a day Not-Taking Nystatin 606212 UNIT Orally Not-Taking Metoprolol Succinate ER Not-Taking [...] Ordered Date Performed Result Body Sit e 77176-CJFVDUK NAIL, 6 OR MORE 12/09/2024 N/A 88001-Kvknhswx Plate 12/09/2024 N/A Encounters Encounter Location Date Provider Diagnosis [facility] [address] [place] [address] 12/09/2024 Charity Black Tinea unguium B35.1 ; [...] Treatment Pending Test Test Name Order Date 70801-ONDHRJA NAIL, 6 OR MORE 12/09/2024 41603-Ftxpzobv Plate 12/09/2024 Next Appt Details Follow Up: 2 Weeks,prn, Reas on: Provider Name:Charity Marquez , 03/07/2025 09:15:00 AM, [address] [place] [address], [phone], Procedure Notes * Category Sub-Category Detail [...] Motrin was recommended for pain or discomfort (53622) Anesthesia was accomplished TOP ICALLY with Lidocaine [...] use of a nail nipper and/or dremel-type centerless grinder tender, to a more viable healthy nail plate [...] to maintain effectiveness in symptomatic relief - 58903 Progress Notes * Adelina TAVAREZ ADOB:[birth year] (79 yo F)Acc No.[id number]:12/09/2024 Progress Note Patient:?MELANIEAdelina A Provider:?Charity Marquez DPM :1945???Age:79 Y???Sex:Female D ate:12/09/2024 Address:[address] [place], [place] [address] Pcp:Abby Potter Subjective: * Chief Complaints: * [...] surgery 02/2019endoscopy 11/2019 * Hospitalization/Major Diagno stic Procedure:?[facility] For Pressure on chest - it was acid reflux 2018Stroke 08/2021[facility] Broken Wrist - right 01/16/2023 [...] yes, walking. ?Marital status: . 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 * Medications:?TakingCalcium M ultivitamin Atorvastatin Calcium [...] times a weekMetoprolol Succinate ER Pazeo Nystatin 477841 UNIT Tablet Orally Crestor 10 mg Atenolol 25 MG Tablet 1 tablet Orally Once a day Doxycycline Neopit 3 500 400 mg Capsule 1 capsule [...] Metoprolol Succinate ER Not-Taking/PRN Pazeo Not-Taking/PRN Nystatin 750585 UNIT Tablet Orally Not-Taking/PRN Crestor 10 mg Not-Taking/PRN Atenolol 25 MG Tablet 1 tablet Orally Once a day Not-Taking/PRN Doxycycline Not-Taking/PRN Neopit 3 500 400 mg Capsule 1 capsule [...] - M79.675??? Plan: * Treatment: 2.?Tinea unguium?Procedure: 77775-FMVTUHF NAIL, 6 OR MORE * Procedures:?Debride Nail [...] use of a nail nipper and/or dremel-type centerless grinder tender, to a more viable healthy nail plate [...] to maintain effectiveness in symptomatic relief - 88587.?Nail Avulsion:?Location?Lateral nail border, T5.?Anesthesia?was accomplished TOPICALLY with [...] Motrin was recommended for pain or discomfort (46648).? * Procedure Codes:?02901 DEBRI DE NAIL, 6 OR MORE, Modifiers: XS 40048 Avulsion Plate, Modifiers: T5 * Preventive Medicine:? ??Screening/Special Tests:?Fall Risk?Screening:?No falls in the past year ?FALLS: Screening for Future Fall Risk?Have you had any falls with injury in the past year??No * Follow Up:?2 Weeks,prn * Images: * Sign off status: Completed true * Provider:?Charity Marquez DPM Date:?2024 Generated for Carmelina baker/Quincy/Jose on:?02/03/2025 08:42 AM EDT History and Physical Notes * [...]
--- OUTSIDE RECORDS SUMMARY | 2025-02-03 08:43 | XMS_ITS | Encounter Summary ---
Author Organization [facility] Address [address] [place] [address] Care Team Providers Care Caustic Purification Operator Name Role Phone Lavell Marcos MD Primary Care Provider Jennifer Sylvester MD Primary Care Provider [phone] [facility], Pcp Primary Care Provider Unavailabl e Encounter Details Date Type Department Care Team Description 06/30/2014 Digital Media Buyer Report Medical Records [address] [place] [address] Maggy Betancur Social History Tobacco Use Types [...] on filedocumented in this encounter Care Teams Caustic Purification Operator Relationship Specialty Start Date End Date Lavell Marcos MD [address] [place] [address] PCP - General 04/06/07 02/08/21 Jennifer Sylvester MD [address] [place] [address] PCP - General Internal Medicine 02/09/21 01/22/23 [facility], Pcp [address] [place] [address]17[address] PCP - General Internal Medicine 01/23/23 documented as of this encounter
--- OUTSIDE RECORDS SUMMARY | 2025-02-03 08:43 | XMS_ITS | Encounter Summary ---
Author Organization [facility] Address [address] [place] [address] Care Team Providers Care Director Of Therapy Services Name Role Phone Lavell Marcos MD Primary Care Provider [phone] Jennifer Sylvester MD Primary Care Provider [phone] [facility], Pcp Primary Care Provider Unavailabl e Encounter Details Date Type Department Care Team Description 10/18/2019 Old Medical Records Medical Records [address] [place] [address] Abstract, Provider Social History Tobacco Use Types [...] in this encounter Care Teams Director Of Therapy Services Relationship Specialty Start Date End Date Lavell Marcos MD [address] [place] [address] PCP - General 04/06/07 02/08/21 Jennifer Sylvester MD [address] [place] [address] [phone] PCP - General Internal Medicine 02/09/21 01/22/23 [facility], Pcp [address] [place] [address] 79189 PCP - General Internal Medicine 01/23/23 documented as of this encounter
--- OUTSIDE RECORDS SUMMARY | 2025-02-03 08:43 | XMS_ITS | Encounter Summary ---
Author Organization [facility] Address [address] [place] [address] Care Team Providers Care Electronic Technician Name Role Phone Lavell Marcos MD Primary Care Provider [phone] Jennifer Sylvester MD Primary Care Provider [phone] [facility], Pcp Primary Care Provider Unavailabl e Encounter Details Date Type Department Care Team Description 11/10/2019 Hospital Medical Records [address] [place] [address] Augie Braga MD Social History Tobacco Use [...] on filedocumented in this encounter Care Teams Electronic Technician Relationship Specialty Start Date End Date Lavell Marcos MD [address] [place] [address]598 PCP - General 04/06/07 02/08/21 Jennifer Sylvester MD [address] [place] [address] 46954 PCP - General Internal Medicine 02/09/21 01/22/23 [facility], Pcp [address] [place] [address] 74959 PCP - General Internal Medicine 01/23/23 documented as of this encounter
--- OUTSIDE RECORDS SUMMARY | 2025-02-03 08:43 | XMS_ITS | Encounter Summary ---
Author Organization [facility] Address [address] [place] [address] Care Team Providers Care Dietetics Teacher Name Role Phone Lavell Marcos MD Primary Care Provider Jennifer Sylvester MD Primary Care Provider [phone] [facility], Pcp Primary Care Provider Unavailabl e Encounter Details Date Type Department Care Team Description 01/23/2011 Manufacturing Advisor Report Medical Records [address] [place] [address] Rik Bauer, PAYossiC Social History Tobacco Use [...] on filedocumented in this encounter Care Teams Dietetics Teacher Relationship Specialty Start Date End Date Lavell Marcos MD [address] [place] [address] PCP - General 04/06/07 02/08/21 Jennifer Sylvester MD [address] [place] [address] 46912 PCP - General Internal Medicine 02/09/21 01/22/23 [facility], Pcp [address] [place] [address] 48944 PCP - General Internal Medicine 01/23/23 documented as of this encounter
--- OUTSIDE RECORDS SUMMARY | 2025-02-03 08:43 | XMS_ITS | Encounter Summary ---
Author Organization [facility] Address [address] [place] [address] Care Team Providers Care Crew Trainer Name Role Phone Lavell Marcos MD Primary Care Provider [phone] Jennifer Sylvester MD Primary Care Provider [phone] [facility], Pcp Primary Care Provider [facility] Encounter Details Date Type Department Care Team Description 03/23/2014 Dial Polisher Report Medical Records [address] [place] [address] Augie Braga MD Social History Tobacco Use [...] on filedocumented in this encounter Care Teams Crew Trainer Relationship Specialty Start Date End Date Lavell Marcos MD [address] [place] [address] 60801 PCP - General 04/06/07 02/08/21 Jennifer Sylvester MD [address] [place] [address] PCP - General Internal Medicine 02/09/21 01/22/23 [facility], Pcp [address] [place] [address] 30841 PCP - General Internal Medicine 01/23/23 documented as of this encounter
--- OUTSIDE RECORDS SUMMARY | 2025-02-03 08:43 | XMS_ITS | Encounter Summary ---
Author Organization [facility] Address [address] [place] [address] Care Team Providers Care Pickle Maker Name Role Phone Lavell Marcos MD Primary Care Provider [phone] Jennifer Sylvester MD Primary Care Provider [phone] [facility], Pcp Primary Care Provider Unavailabl e Encounter Details Date Type Department Care Team Description 08/18/2017 SCAN Medical Records [address] [place] [address] Abstract, Provider Social History Tobacco Use Types [...] on filedocumented in this encounter Care Teams Pickle Maker Relationship Specialty Start Date End Date Lavell Marcos MD [address] [place] [address] 39207 PCP - General 04/06/07 02/08/21 Jennifer Sylvester MD [address] [place] [address] [phone] PCP - General Internal Medicine 02/09/21 01/22/23 Jarrod, Joe [address] [place] [address] 08884 PCP - General Internal Medicine 01/23/23 documented as of this encounter
--- OUTSIDE RECORDS SUMMARY | 2025-02-03 08:43 | XMS_ITS | Encounter Summary ---
Author Organization [facility] Address [address] [place] [address] Care Team Providers Care Mulcher Operator Name Role Phone Lavell Marcos MD Primary Care Provider [phone] Jennifer Sylvester MD Primary Care Provider [phone] [facility], Pcp Primary Care Provider Unavailabl e Encounter Details Date Type Department Care Team Description 12/27/2016 Orders Only Medical Records [address] [place] [address] Lavell Marcos MD [address] [place] [address]47 Social History Tobacco Use Types Packs/Day Years [...] Name Priority Date/Time Associated Diagnosis Comments OUTSIDE NUCLEAR STRESS TEST Routine 12/26/2016 documented in this encounter Results * OUTSIDE NUCLEAR STRESS TEST (12/26/2016) Lavell Marcos MD CARDIOLOGY documented in this encounter Visit Diagnoses Not on filedocumented in this encounter Care Teams Mulcher Operator Relationship Specialty Start Date End Date Lavell Marcos MD [address] [place] [address] 39492 PCP - General 04/06/07 02/08/21 Jennifer Sylvester MD [address] [place] [address] 16116 PCP - General Internal Medicine 02/09/21 01/22/23 [facility], Pcp [address] [place] [address] 65691 PCP - General Internal Medicine 01/23/23 documented as of this encounter
--- OUTSIDE RECORDS SUMMARY | 2025-02-03 08:43 | XMS_ITS | Encounter Summary ---
Author Organization [facility] Address [address] [place] [address] Care Team Providers Care Savings Teller Name Role Phone Lavell Marcos MD Primary Care Provider Jennifer Sylvester MD Primary Care Provider [phone] [facility], Pcp [facility] Encounter Details Date Type Department Care Team Description 11/15/2011 Hospital Medical Records [address] [place] [address] 217[address] Yazan Lang Social History Tobacco Use Types [...] on filedocumented in this encounter Care Teams Savings Teller Relationship Specialty Start Date End Date Lavell Marcos MD [address] [place] [address]57 PCP - General 04/06/07 02/08/21 Jennifer Sylvester MD [address] [place] [address] 18108 PCP - General Internal Medicine 02/09/21 01/22/23 [facility], Pcp [address] [place] [address] 87120 PCP - General Internal Medicine 01/23/23 documented as of this encounter
--- OUTSIDE RECORDS SUMMARY | 2025-02-03 08:43 | XMS_ITS | Encounter Summary ---
Author Organization [facility] Address [address] [place] [address] Care Team Providers Care Immigration Coordinator Name Role Phone Lavell Marcos MD Primary Care Provider Jennifer Sylvester MD Primary Care Provider [phone] [facility], Pcp Primary Care Provider Unavailabl e Reason for Visit * Reason Onset Date Comments TEST RESULTS 06/24/2014 Encounter Details Date Type Department Care Team Description 06/24/2014 Telephone Adult Medicine [facility] [address] [place] [address] 85344 Lavell Marcos MD [address] [place] [address] [phone] TEST RESULTS Social History Tobacco Use Types [...] of test: :multiple Date test was performed: [id number] Where was the test performed: rb Who [...] filedocumented in this encounter Care Teams Immigration Coordinator Relationship Specialty Start Date End Date Lavell Marcos MD [address] [place] [address] 39314 PCP - General 04/06/07 02/08/21 Jennifer Sylvester MD [address] [place] [address] 78938 PCP - General Internal Medicine 02/09/21 01/22/23 Joe Garay [address] [place] [address] 36183 PCP - General Internal Medicine 01/23/23 documented as of this encounter
--- OUTSIDE RECORDS SUMMARY | 2025-02-03 08:43 | XMS_ITS | Encounter Summary ---
Author Organization [facility] Address [address] [place] [address] Care Team Providers Care Java Portal Developer Name Role Phone Lavell Marcos MD Primary Care Provider [phone] Jennifer Sylvester MD Primary Care Provider [phone] [facility], Pcp [facility] Encounter Details Date Type Department Care Team Description 08/24/2010 Business Process Expert Report Medical Records [address] [place] [address] 01357 Rich Beatty Social History Tobacco Use Types [...] on filedocumented in this encounter Care Teams Java Portal Developer Relationship Specialty Start Date End Date Lavell Marcos MD [address] [place] [address] 30628 PCP - General 04/06/07 02/08/21 Jennifer Sylvester MD [address] [place] [address] [phone] PCP - General Internal Medicine 02/09/21 01/22/23 [facility], Pcp [address] [place] [address] 81508 PCP - General Internal Medicine 01/23/23 documented as of this encounter
--- OUTSIDE RECORDS SUMMARY | 2025-02-03 08:43 | XMS_ITS | Encounter Summary ---
Author Organization [facility] Address [address] [place] [address] Care Team Providers Care Starch Crab Name Role Phone Lavell Marcos MD Primary Care Provider Jennifer Sylvester MD Primary Care Provider [phone] [facility], Pcp Primary Care [facility] Encounter Details Date Type Department Care Team Description 04/08/2014 Marine Pipefitter Report Medical Records [address] [place] [address] 17276 Rich Beatty Social History Tobacco Use Types [...] on filedocumented in this encounter Care Teams Starch Crab Relationship Specialty Start Date End Date Lavell Marcos MD [address] [place] [address] 95661 PCP - General 04/06/07 02/08/21 Jennifer Sylvester MD [address] [place] [address] 62507 PCP - General Internal Medicine 02/09/21 01/22/23 [facility], Pcp [address] [place] [address] 56838 PCP - General Internal Medicine 01/23/23 documented as of this encounter
--- OUTSIDE RECORDS SUMMARY | 2025-02-03 08:43 | XMS_ITS | Encounter Summary ---
Author Organization [facility] Address [address] [place] [address] Care Team Providers Care Dealer Compliance Representative Name Role Phone Lavell Marcos MD Primary Care Provider [phone] Jennifer Sylvester MD Primary Care Provider [phone] [facility], Pcp Primary Care Provider Unavailabl e Encounter Details Date Type Department Care Team Description 10/21/2017 [facility] Medical Records [address] [place] [address] 91585 Abstract, Provider Social History Tobacco Use Types [...] on filedocumented in this encounter Care Teams Dealer Compliance Representative Relationship Specialty Start Date End Date Lavell Marcos MD [address] [place] [address] 99203 PCP - General 04/06/07 02/08/21 Jennifer Sylvester MD [address] [place] [address] [phone] PCP - General Internal Medicine 02/09/21 01/22/23 Jar[facility], Pcp [address] [place] [address] 26592 PCP - General Internal Medicine 01/23/23 documented as of this encounter
--- OUTSIDE RECORDS SUMMARY | 2025-02-03 08:43 | XMS_ITS | Encounter Summary ---
Author Organization [facility] Address [address] [place] [address] Care Team Providers Care Physical Medicine Specialist Name Role Phone Lavell Marcso MD Primary Care Provider Jennifer Sylvester MD Primary Care Provider [phone] [facility], Pcp [facility] Encounter Details Date Type Department Care Team Description 08/02/2013 Trading Assistant Report Medical Records [address] [place] [address] 93914 Bib Sandoval MD Social History Tobacco Use [...] on filedocumented in this encounter Care Teams Physical Medicine Specialist Relationship Specialty Start Date End Date Lavell Marcos MD [address] [place] [address] 92590 PCP - General 04/06/07 02/08/21 Jennifer Sylvester MD [address] [place] [address] 66753 PCP - General Internal Medicine 02/09/21 01/22/23 [facility], Pcp [address] [place] [address] 85537 PCP - General Internal Medicine 01/23/23 documented as of this encounter
--- OUTSIDE RECORDS SUMMARY | 2025-02-03 08:43 | XMS_ITS | Encounter Summary ---
Author Organization [facility] Address [address] [place] [address] Care Team Providers Care Channel Supervisor Name Role Phone Lavell Marcos MD Primary Care Provider [phone] Jennifer Sylvester MD Primary Care Provider [phone] [facility], Pcp Primary Care Provider Unavailabl e Reason for Visit * Reason Comments E-prescribe Rx Request Encounter Details Date Type Department Care Team Description 03/04/2017 Refill Adult Medicine [address] [address] Lavell Marcos MD [address] [place] [address] 12481 E-prescribe Rx Request Social History Tobacco Use [...] Payor: ALICIA/ERINN POS / Plan: PPO $0 ReplySend [id number] / Product Type: PPO [id number] documented in this encounter Plan of Treatment Not on file documented as of this encounter Visit Diagnoses Not on filedocumented in this encounter Care Teams Channel Supervisor Relationship Specialty Start Date End Date Lavell Marcos MD [address] [place] [address] 54208 PCP - General 04/06/07 02/08/21 Jennifer Sylvester MD [address] [place] [address] 64995 PCP - General Internal Medicine 02/09/21 01/22/23 [facility] [address] [place] [address] PCP - General Internal Medicine 01/23/23 documented as of this encounter
--- OUTSIDE RECORDS SUMMARY | 2025-02-03 08:43 | XMS_ITS | Encounter Summary ---
Author Organization [facility] Address [address] [place] [address] Care Team Providers Care Anesthesia Resident Name Role Phone Lavell Marcos MD Primary Care Provider Jennifer Sylvester MD Primary Care Provider [phone] Replaced By [facility], Pcp Primary Care Provider Unavailabl e Encounter Details Date Type Department Care Team Description 03/07/2014 Faith Healer Report Medical Records [address] [place] [address] 8[address]39 Eduardo Lino MD Social History Tobacco Use [...] on filedocumented in this encounter Care Teams Anesthesia Resident Relationship Specialty Start Date End Date Lavell Marcos MD [address] [place] [address] 83266 PCP - General 04/06/07 02/08/21 Jennifer Sylvester MD [address] [place] [address] 87852 PCP - General Internal Medicine 02/09/21 01/22/23 [facility], Pcp [address] [place] [address] [phone] PCP - General Internal Medicine 01/23/23 documented as of this encounter
--- OUTSIDE RECORDS SUMMARY | 2025-02-03 08:43 | XMS_ITS | Encounter Summary ---
Author Organization [facility] Address [address] [place] [address] Care Team Providers Care Commercial Collector Name Role Phone Lavell Marcos MD Primary Care Provider [phone] Jennifer Sylvester MD Primary Care Provider [phone] [facility], Pcp Primary Care Provider Unavailabl e Encounter Details Date Type Department Care Team Description 08/17/2019 Wine Pasteurizer Report Medical Records [address] [place] [address] 57[address] Eduardo Lino MD Social History Tobacco Use [...] filedocumented in this encounter Care Teams Commercial Collector Relationship Specialty Start Date End Date Lavell Marcos MD [address] [place] [address] 28886 PCP - General 04/06/07 02/08/21 Jennifer Sylvester MD [address] [place] [address] 57925 PCP - General Internal Medicine 02/09/21 01/22/23 [facility], Pcp [address] [place] [address] 20024 PCP - General Internal Medicine 01/23/23 documented as of this encounter
--- OUTSIDE RECORDS SUMMARY | 2025-02-03 08:43 | XMS_ITS | Encounter Summary ---
Author Organization [facility] Address [address] [place] [address] Care Team Providers Care Food Mixer Name Role Phone Lavell Marcos MD Primary Care Provider [phone] Jennifer Sylvester MD Primary Care Provider [phone] [facility], Pcp Primary Care Provider [facility] Encounter Details Date Type Department Care Team Description 03/30/2019 Laser Machine Operator Report Medical Records [address] [place] [address] Isai Patel, PAYossiC Social History Tobacco Use [...] filedocumented in this encounter Care Teams Food Mixer Relationship Specialty Start Date End Date Lavell Marcos MD [address] [place] [address] 72025 PCP - General 04/06/07 02/08/21 Jennifer Sylvester MD [address] [place] [address] 61348 PCP - General Internal Medicine 02/09/21 01/22/23 [facility], Pcp [address] [place] [address] 15418 PCP - General Internal Medicine 01/23/23 documented as of this encounter
--- OUTSIDE RECORDS SUMMARY | 2025-02-03 08:43 | XMS_ITS | Encounter Summary ---
Author Organization [facility] Address [address] [place] [address] Care Team Providers Care Cloud Security Architect Name Role Phone Lavell Marcos MD Primary Care Provider [phone] Jennifer Sylvester MD Primary Care Provider [phone] [facility], Pcp Primary Care Provider Unavailabl e Encounter Details Date Type Department Care Team Description 01/06/2020 Physician Office Specialist Report Medical Records [address] [place] [address] 69521 Johnna Serna MD Social History Tobacco Use [...] on filedocumented in this encounter Care Teams Cloud Security Architect Relationship Specialty Start Date End Date Lavell Marcos MD [address] [place] [address] 19358 PCP - General 04/06/07 02/08/21 Jennifer Sylvester MD [address] [place] [address] 64264 PCP - General Internal Medicine 02/09/21 01/22/23 [facility], Pcp [address] [place] [address] 13101 PCP - General Internal Medicine 01/23/23 documented as of this encounter
--- OUTSIDE RECORDS SUMMARY | 2025-02-03 08:43 | XMS_ITS | Encounter Summary ---
Author Organization [facility] Address [address] [place] [address] Care Team Providers Care Rug Cleaner Helper Name Role Phone Lavell Marcos MD Primary Care Provider Jennifer Sylvester MD Primary Care Provider [facility], Pcp Primary Care Provider [facility] e Encounter Details Date Type Department Care Team Description 04/14/2014 Flour Mixer Helper Report Medical Records [address] [place] [address] 27486 Rich Beatty Social History Tobacco Use Types [...] on filedocumented in this encounter Care Teams Rug Cleaner Helper Relationship Specialty Start Date End Date Lavell Marcos MD [address] [place] [address] 76850 PCP - General 04/06/07 02/08/21 Jennifer Sylvester MD [address] [place] [address] 33129 PCP - General Internal Medicine 02/09/21 01/22/23 [facility], Pcp [address] [place] [address] 86454 PCP - General Internal Medicine 01/23/23 documented as of this encounter
--- OUTSIDE RECORDS SUMMARY | 2025-02-03 08:43 | XMS_ITS ---
Author Organization [facility] Address [address] [place] [address] Care Team Providers Care Allergist/Pediatric Pulmonologist Name Role Phone Abby Potter Primary Care Provider Charity Castro Unavailable [phone] Raisa Bach [phone] REASON FOR VISIT switched to Dr Marquez Encounters Encounter Location Date Provider Diagnosis [address] [address] 12/09/2024 Raisa Bach Plan Of Treatment Next Appt Details Provider Name:Charity Rohan Jimmy , 03/07/2025 09:15:00 AM, [address] [place], [address], Progress Notes * Adelina TAVAREZ ADOB:[birth year] (79 yo F)Acc No.[id number]:12/09/2024 Progress Note Patient:?Adelina TAVAREZ Provider:?Raisa Bach DPM :1945???Age:79 Y???Sex:Female D ate:12/09/2024 Address:[address] [place] [address] [place] Pcp:Abby Potter Subjective: * Chief Complaints: * [...] DPM Date:?0 12/09/2024 Generated for Carmelina baker/[place]/Jose on:?02/03/2025 08:42 AM EDT
--- OUTSIDE RECORDS SUMMARY | 2025-02-03 08:43 | XMS_ITS | Encounter Summary ---
Author Organization [facility] Address [address] [place] [address] Care Team Providers Care Lay Health Advocate Name Role Phone Lavell Marcos MD Primary Care Provider [phone] Jennifer Sylvester MD Primary Care Provider [phone] [facility], Pcp Primary Care Provider Unavailabl e Encounter Details Date Type Department Care Team Description 2019 Silo Worker Report Medical Records [address] [place] [address] 44092 Reji White MD [address] [place] [address] 61548 Social History Tobacco Use Types Packs/Day Years [...] on filedocumented in this encounter Care Teams Lay Health Advocate Relationship Specialty Start Date End Date Lavell Marcos MD [address] [place] [address] 51174 PCP - General 04/06/07 02/08/21 Jennifer Sylvester MD [address] [place] [address] 94771 PCP - General Internal Medicine 02/09/21 01/22/23 [facility], Pcp [address] [place] [address] [phone] PCP - General Internal Medicine 01/23/23 documented as of this encounter
--- OUTSIDE RECORDS SUMMARY | 2025-02-03 08:43 | XMS_ITS | Encounter Summary ---
Author Organization [facility] Address [address] [place] [address] Care Team Providers Care Tour Counselor Name Role Phone Lavell Marcos MD Primary Care Provider [phone] Jennifer Sylvester MD Primary Care Provider [phone] [facility], Pcp Primary Care Provider Unavailabl e Encounter Details Date Type Department Care Team Description 08/22/2017 Mechanical Commissioning Engineer Report Medical Records [address] [place] [address] Penelope Geronimo MD [address] [place] [address] 25808 Social History Tobacco Use Types Packs/Day Years [...] on filedocumented in this encounter Care Teams Tour Counselor Relationship Specialty Start Date End Date Lavell Marcos MD [address] [place] [address] 86246 PCP - General 04/06/07 02/08/21 Jennifer Sylvester MD [address] [place] [address] 97845 PCP - General Internal Medicine 02/09/21 01/22/[address] [address] PCP - General Internal Medicine 01/23/23 documented as of this encounter
--- OUTSIDE RECORDS SUMMARY | 2025-02-03 08:43 | XMS_ITS | Clinical Summary ---
Author Organization [facility] Address [address] [place] [address] Care Team Providers Care Release And Technical Records Clerk Name Role Phone TariqAbby Monico Primary Care Provider Allergies Active Allergy Reactions Criticality Noted Date [...] Description 12/14/2024 9:30 AM EST Clinical Support [facility] [address] [place] [address] 48391 [employer]: Deanna Miller LPN Age-related osteoporosis without current pathological fracture (Primary Dx) 12/01/2024 myChart Message [facility] [address] [place] [address] 21755 Bl[employer]: Carlos Diop MD Low potassium from Last [...] Info) Description 03/03/2025 9:30 AM EDT Follow-Up [facility] [address] [place] [address] 62995 Bl[employer]: Carlos Diop MD [address] [place] [address] [phone] 06/15/2025 9:00 AM EDT Clinical Support [facility] [address] [place] [address] 81541 Blocker [employer]: Marlena Hurst Health Maintenance Due Date Last [...] complete this topic Procedures * Due to [place] state law, this organization might not be [...] to Health Maintenance Results * Due to [place] state law, this organization might not be sharing negative HIV tests. * Vitamin D, 25-Hydroxy, Total, Immunoassay (11/10/2024 10:34 AM EST) Calcidiol+ercalc idiol 73 30 - 100 ng/mL 11/10/2024 11:44 PM EST [employer] Comment: Vitamin D Status ? 25-OH Vitamin D: Deficiency: ?<20 ng/mL Insufficiency: ? 20 - 29 ng/mL Optimal: ? > or = 30 ng/mL For 25-OH Vitamin D testing on patients on D2-supplementation and patients for whom quantitation of D2 and D3 fractions is required, the QuestAssureD() 25-OH VIT D, (D2,D3), LC/MS/MS is recommended: order code 44234 (patients >2yrs). See Note 1 Note 1 For additional information, please refer to http://education.Cinsay/faq/JQU452 (This link is being provided for informational/ educational purposes only.) Blood Structure of peripheral vein / Unknown 11/10/2024 10:34 AM EST 11/10/2024 8:47 PM EST Narrative [facility] - 11/10/2024 11:45 PM EST FASTING:NO Lacey Patel MD LAB BLOOD ORDERABLES Final Re sult [facility] [address] [facility] 3rd Floor, [place] [address], [employer] [facility] [address] [place] [address] * CBC (11/10/2024 10:34 AM EST) Pathologist [facility] White Blood Cell Count 7.7 3.8 - 10.8 Thousand/ uL 11/10/2024 9:43 PM EST [employer] Red Blood Cell Count 4.13 3.80 - 5.10 Million/u L 11/10/2024 9:43 PM EST [employer] [facility] Hemoglobin 12.0 11.7 - 15.5 g/dL 11/10/2024 9:43 PM EST [employer] Hematocrit 36.7 35.0 - 45.0 % 11/10/2024 9:43 PM EST [employer] MCV 88.9 80.0 - 100.0 fL 11/10/2024 9:43 PM EST [employer] MCH 29.1 27.0 - 33.0 pg 11/10/2024 9:43 PM EST [employer] MCHC 32.7 32.0 - 36.0 g/dL 11/10/2024 9:43 PM EST [employer] Comment: For adults, a slight decrease in the calculated MCHC value (in the range of 30 to 32 g/dL) is most likely not clinically significant; however, it should be interpreted with caution in correlation with other red cell parameters and the patient's clinical condition. RDW 12.8 11.0 - 15.0 % 11/10/2024 9:43 PM EST [employer] Platelet Count 285 140 - 400 Thousand/ uL 11/10/2024 9:43 PM EST [employer] MPV 9.5 7.5 - 12.5 fL 11/10/2024 9:43 PM EST [employer] Blood Structure of peripheral vein / Unknown 11/10/2024 10:34 AM EST 11/10/2024 8:23 PM EST Narrative [facility] - 11/10/2024 11:45 PM EST FASTING:NO us Lacey Patel MD LAB BLOOD ORDERABLES Final Re sult Performing Organization Address City/[facility]/ZIP Co de Phone Number [facility] [address], [place] [address], [place] [phone] [employer] [address] [address] * Phosphorus (11/10/2024 10:34 AM EST) Phosphate 2.5 2.1 - 4.3 mg/dL 11/10/2024 11:36 PM EST [employer] [facility] Blood Structure of peripheral vein / Unknown 11/10/2024 10:34 AM EST 11/10/2024 8:47 PM EST Narrative [facility] - 11/10/2024 11:45 PM EST FASTING:NO us Lacey Patel MD LAB BLOOD ORDERABLES Final Re sult Performing Organization Address [facility] Co de Phone Number [facility] [address], [place] [address], [place] [phone] [employer] [address] [address] * Magnesium (11/10/2024 10:34 AM EST) Magnesium 2.0 1.5 - 2.5 mg/dL 11/10/2024 11:36 PM EST [employer] [facility] Blood Structure of peripheral vein / Unknown 11/10/2024 10:34 AM EST 11/10/2024 8:47 PM EST Narrative [facility] - 11/10/2024 11:45 PM EST FASTING:NO us Lacey Patel MD LAB BLOOD ORDERABLES Final Re sult [facility] [address] [facility] [address], [place] [address], [employer] [facility] [address] [place] [address] * (ABNORMAL) Comprehensive Metabolic Panel (11/10/2024 10:34 AM EST) Glucose 92 65 - 139 mg/dL 11/10/2024 11:36 PM EST [employer] [facility] Comment: ? Non-fasting reference interval BUN 10 7 - 25 mg/dL 11/10/2024 11:36 PM EST [employer] Creatinine 0.73 0.60 - 1.00 mg/dL 11/10/2024 11:36 PM EST [employer] eGFR 85 > OR = 60 mL/min/1. 73m2 11/10/2024 11:36 PM [employer] Bun/Creatinine Ratio SEE NOTE: 6 - 22 (calc) 11/10/2024 11:36 PM [employer] Comment: ?? Not Reported: BUN and Creatinine are within ?? reference range. ? Sodium 140 135 - 146 mmol/L 11/10/2024 11:36 PM EST [employer] Potassium 3.3(L) 3.5 - 5.3 mmol/L 11/10/2024 11:36 PM [employer] [place] [employer] Chloride 105 98 - 110 mmol/L 11/10/2024 11:36 PM [employer] Carbon Dioxide 26 20 - 32 mmol/L 11/10/2024 11:36 PM [employer] Calcium 9.2 8.6 - 10.4 mg/dL 11/10/2024 11:36 PM [employer] Protein, Total 6.2 6.1 - 8.1 g/dL 11/10/2024 11:36 PM EST [employer] Albumin 4.2 3.6 - 5.1 g/dL 11/10/2024 11:36 PM [employer] Globulin 2.0 1.9 - 3.7 g/dL (calc) 11/10/2024 11:36 PM [employer] Albumin/Globuli n Ratio 2.1 1.0 - 2.5 (calc) 11/10/2024 11:36 PM EST [employer] [facility] Bilirubin, Total 1.2 0.2 - 1.2 mg/dL 11/10/2024 11:36 PM EST [employer] [facility] Alkaline Phosphatase 62 37 - 153 U/L 11/10/2024 11:36 PM EST [employer] [facility] AST 17 10 - 35 U/L 11/10/2024 11:36 PM EST [employer] [facility] ALT 9 6 - 29 U/L 11/10/2024 11:36 PM EST [employer] [facility] Blood Structure of peripheral vein / Unknown 11/10/2024 10:34 AM EST 11/10/2024 8:47 PM EST Narrative [facility] - 11/10/2024 11:45 PM EST FASTING:NO us Lacey Patel MD LAB BLOOD ORDERABLES Final Re sult [facility] [address] [facility] 3rd Floor, [place] [address], [place] [phone] [employer] [facility] [address] [place] [address] * Dexa Scan (10/31/2023) Anatomical Region Laterality Modality Other 10/31/2023 us Onbase Scan [facility] Final Resu lt from Last 3 Months or Most Recently Relevant to Health Maintenance Insurance MEDICARE [facility] Care Teams Release And Technical Records Clerk Relationship Specialty Start Date End Date Abby Potter [address] [place] [address] [place] [address] PCP - General Internal Medicine 04/14/24
--- OUTSIDE RECORDS SUMMARY | 2025-02-03 08:43 | XMS_ITS | Encounter Summary ---
Author Organization [facility] Address [address] [place] [address] Care Team Providers Care Flight Mechanic Name Role Phone Lavell Marcos MD Primary Care Provider Jennifer Sylvester MD Primary Care Provider [phone] [facility], Pcp Primary Care Provider Unavailabl e Reason for Visit * Reason Onset Date Comments other 02/23/2019 Encounter Details Date Type Department Care Team Description 02/23/2019 Telephone Pulmonology - [address] [place] [address] Eduardo Lino MD other Social [...] on filedocumented in this encounter Care Teams Flight Mechanic Relationship Specialty Start Date End Date Lavell Marcos MD [address] [place] [address] PCP - General 04/06/07 02/08/21 Jennifer Sylvester MD [address] [place] [address] PCP - General Internal Medicine 02/09/21 01/22/23 [facility], [address] [address] PCP - General Internal Medicine 01/23/23 documented as of this encounter
--- OUTSIDE RECORDS SUMMARY | 2025-02-03 08:43 | XMS_ITS | Encounter Summary ---
Author Organization [facility] Address [address] [place] [address] Care Team Providers Care House Cleaner Name Role Phone Lavell Marcos MD Primary Care Provider [phone] Jennifer Sylvester MD Primary Care Provider [phone] [facility], Pcp Primary Care Provider Unavailabl e Encounter Details Date Type Department Care Team Description 10/12/2019 Old Medical Records Medical Records [address] [place] [address] Abstract, Provider Social History Tobacco Use Types [...] on filedocumented in this encounter Care Teams House Cleaner Relationship Specialty Start Date End Date Lavell Marcos MD [address] [place] [address] PCP - General 04/06/07 02/08/21 Jennifer Sylvester MD [address] [place] [address] [phone] PCP - General Internal Medicine 02/09/21 01/22/23 [facility], Pcp [address] [place] [address] PCP - General Internal Medicine 01/23/23 documented as of this encounter
--- OUTSIDE RECORDS SUMMARY | 2025-02-03 08:43 | XMS_ITS | Encounter Summary ---
Author Organization [facility] Address [address] [place] [address] Care Team Providers Care Barrel Header Name Role Phone Lavell Marcos MD Primary Care Provider Jennifer Sylvester MD Primary Care Provider [phone] [facility], Pcp [facility] Encounter Details Date Type Department Care Team Description 11/14/2011 Hospital Medical Records [address] [place] [address] Yazan Lang Social History Tobacco Use Types [...] on filedocumented in this encounter Care Teams Barrel Header Relationship Specialty Start Date End Date Lavell Marcos MD [address] [place] [address] PCP - General 04/06/07 02/08/21 Jennifer Sylvester MD [address] [place] [address] PCP - General Internal Medicine 02/09/21 01/22/23 [facility], Pcp [address] [place] [address] PCP - General Internal Medicine 01/23/23 documented as of this encounter
--- OUTSIDE RECORDS SUMMARY | 2025-02-03 08:43 | XMS_ITS | Encounter Summary ---
Author Organization [facility] Address [address] [place] [address] Care Team Providers Care Tarper Name Role Phone TariqMarleeelidia Marc Primary Care Provider Reason for Visit * Reason Onset Date Comments PAC Patient Request Call Back 06/08/2024 Encounter Details Date Type Department Care Team (Late st Contact Info) Description 06/08/2024 Telephone [facility] Patient Access Center [address] [place] [address] Telephone Intake, Staff PAC Patient Request Call [...] for 9am. Patient can be reached at [phone]. Thank you - PAC documented in this encounter Plan of Treatment Upcoming Encounters Date Type Department Care Team (Late st Contact Info) Description 03/03/2025 9:30 AM EDT Follow-Up [facility] [address] [place] [address] Disaster Recovery Analyst: Carlos Diop MD [address] [place] [address] 06/15/2025 9:00 AM EDT Clinical Support [facility] [address] [place] [address] Disaster Recovery Analyst: Marlena Hurst documented as of this encounter Visit Diagnoses Not on filedocumented in this encounter Care Teams Tarper Relationship Specialty Start Date End Date Abby Potter [address] [place] [address] [place] [address] PCP - General Internal Medicine 04/14/24 documented as of this encounter
--- OUTSIDE RECORDS SUMMARY | 2025-02-03 08:43 | XMS_ITS | Referral Summary ---
Author Organization [facility] Address [address] [place] [address] Care Team Providers Care Telephone Maintainer Name Role Phone Abby Potter Primary Care Provider [phone] Encounters Date Type Department Care Team Description 12/14/2024 9:30 AM EST Clinical Support [facility] [address] [place] [address] Medical Records Clerk: Deanna Miller LPN Age-related osteoporosis without current pathological fracture (Primary Dx) 12/01/2024 myChart Message [facility] [address] [place] [address] [phone] Medical Records Clerk: Carlos Diop MD Low potassium from Last [...] Info) Description 03/03/2025 9:30 AM EDT Follow-Up [facility] [address] [place] [address] Medical Records Clerk: Carlos Diop MD [address] [place] [address] 06/15/2025 9:00 AM EDT Clinical Support [facility] [address] [place] [address] Medical Records Clerk: Marlena Hurst Procedures * Due to [place] [employer]inks[employer] law, this organization might not be sharing [...] to Health Maintenance Results * Due to [place] [employer] law, this organization might not be sharing negative HIV tests. * Vitamin D, 25-Hydroxy, Total, Immunoassay (11/10/2024 10:34 AM EST) Calcidiol+ercalc idiol 73 30 - 100 ng/mL 11/10/2024 11:44 PM EST [facility] Comment: Vitamin D Status ? 25-OH Vitamin D: Deficiency: ?<20 ng/mL Insufficiency: ? 20 - 29 ng/mL Optimal: ? > or = 30 ng/mL For 25-OH Vitamin D testing on patients on D2-supplementation and patients for whom quantitation of D2 and D3 fractions is required, the QuestAssureD(TM) 25-OH VIT D, (D2,D3), LC/MS/MS is recommended: order code 01827 (patients >2yrs). See Note 1 Note 1 For additional information, please refer to http://education.Stunn/faq/LQS962 (This link is being provided for informational/ educational purposes only.) Blood Structure of peripheral vein / Unknown 11/10/2024 10:34 AM EST 11/10/2024 8:47 PM EST Narrative [facility] - 11/10/2024 11:45 PM EST FASTING:NO us Lacey Patel MD LAB BLOOD ORDERABLES Final Re sult [facility] [address] [facility] [address], [place] [address], Infogram [facility] [address] [place] [address] * CBC (11/10/2024 10:34 AM EST) White Blood Cell Count 7.7 3.8 - 10.8 Thousand/ uL 11/10/2024 9:43 PM EST Infogram [facility] Red Blood Cell Count 4.13 3.80 - 5.10 Million/u L 11/10/2024 9:43 PM EST [facility] Hemoglobin 12.0 11.7 - 15.5 g/dL 11/10/2024 9:43 PM EST [facility] Hematocrit 36.7 35.0 - 45.0 % 11/10/2024 9:43 PM EST Infogram [facility] MCV 88.9 80.0 - 100.0 fL 11/10/2024 9:43 PM EST [facility] MCH 29.1 27.0 - 33.0 pg 11/10/2024 9:43 PM EST [facility] MCHC 32.7 32.0 - 36.0 g/dL 11/10/2024 9:43 PM EST [facility] Comment: For adults, a slight decrease in the calculated MCHC value (in the range of 30 to 32 g/dL) is most likely not clinically significant; however, it should be interpreted with caution in correlation with other red cell parameters and the patient's clinical condition. RDW 12.8 11.0 - 15.0 % 11/10/2024 9:43 PM EST [facility] Platelet Count 285 140 - 400 Thousand/ uL 11/10/2024 9:43 PM EST [facility] MPV 9.5 7.5 - 12.5 fL 11/10/2024 9:43 PM EST [facility] Blood Structure of peripheral vein / Unknown 11/10/2024 10:34 AM EST 11/10/2024 8:23 PM EST Narrative [facility] - 11/10/2024 11:45 PM EST FASTING:NO Lacey Patel MD LAB BLOOD ORDERABLES Final Re sult Performing Organization Address City/[facility]/ZIP Co de Phone Number [facility] [address] [place] [address], [place] [address], [place] [phone] [address] * Phosphorus (11/10/2024 10:34 AM EST) Phosphate 2.5 2.1 - 4.3 mg/dL 11/10/2024 11:36 PM EST [facility] Blood Structure of peripheral vein / Unknown 11/10/2024 10:34 AM EST 11/10/2024 8:47 PM EST Narrative [facility] - 11/10/2024 11:45 PM EST FASTING:NO Lacey Patel MD LAB BLOOD ORDERABLES Final Re sult [facility] [address], [place] [address], [place] [phone] [facility] [address] [place] [address] * Magnesium (11/10/2024 10:34 AM EST) Magnesium 2.0 1.5 - 2.5 mg/dL 11/10/2024 11:36 PM EST [facility] Blood Structure of peripheral vein / Unknown 11/10/2024 10:34 AM EST 11/10/2024 8:47 PM EST Narrative [facility] - 11/10/2024 11:45 PM EST FASTING:NO Lacey Patel MD LAB BLOOD ORDERABLES Final Re sult [facility] [address], [place] [address], [place] [phone] [facility] [address] [place] [address] * (ABNORMAL) Comprehensive Metabolic Panel (11/10/2024 10:34 AM EST) Glucose 92 65 - 139 mg/dL 11/10/2024 11:36 PM EST [facility] Comment: ? Non-fasting reference interval BUN 10 7 - 25 mg/dL 11/10/2024 11:36 PM [facility] Creatinine 0.73 0.60 - 1.00 mg/dL 11/10/2024 11:36 PM [facility] eGFR 85 > OR = 60 mL/min/1. 73m2 11/10/2024 11:36 PM [facility] Bun/Creatinine Ratio SEE NOTE: 6 - 22 (calc) 11/10/2024 11:36 PM [facility] Comment: ?? Not Reported: BUN and Creatinine are within ?? reference range. ? Sodium 140 135 - 146 mmol/L 11/10/2024 11:36 PM [facility] Potassium 3.3(L) 3.5 - 5.3 mmol/L 11/10/2024 11:36 PM [facility] Chloride 105 98 - 110 mmol/L 11/10/2024 11:36 PM EST [facility] Carbon Dioxide 26 20 - 32 mmol/L 11/10/2024 11:36 PM EST [facility] Calcium 9.2 8.6 - 10.4 mg/dL 11/10/2024 11:36 PM EST [facility] Protein, Total 6.2 6.1 - 8.1 g/dL 11/10/2024 11:36 PM EST [facility] Albumin 4.2 3.6 - 5.1 g/dL 11/10/2024 11:36 PM EST [facility] Globulin 2.0 1.9 - 3.7 g/dL (calc) 11/10/2024 11:36 PM EST [facility] Albumin/Globuli n Ratio 2.1 1.0 - 2.5 (calc) 11/10/2024 11:36 PM EST [facility] Bilirubin, Total 1.2 0.2 - 1.2 mg/dL 11/10/2024 11:36 PM EST [facility] Alkaline Phosphatase 62 37 - 153 U/L 11/10/2024 11:36 PM EST [facility] AST 17 10 - 35 U/L 11/10/2024 11:36 PM EST [facility] ALT 9 6 - 29 U/L 11/10/2024 11:36 PM EST [facility] Blood Structure of peripheral vein / Unknown 11/10/2024 10:34 AM EST 11/10/2024 8:47 PM EST Narrative [facility] - 11/10/2024 11:45 PM EST FASTING:NO Lacey Patel MD LAB BLOOD ORDERABLES Final Re sult [facility] [address] [facility] [address], [place] [address], Infogram [facility] [address] [place] [address] * Dexa Scan (10/31/2023) Anatomical Region Laterality Modality Other 10/31/2023 us Onbase Scan [facility] MAINTENANCE Final Resu lt from Last 3 Months or Most Recently Relevant to Health Maintenance Insurance MEDICARE [facility] Care Teams Telephone Maintainer Relationship Specialty Start Date End Date Abby Potter [address] [place] [address] [place] [address] PCP - General Internal Medicine 04/14/24
--- OUTSIDE RECORDS SUMMARY | 2025-02-03 08:43 | XMS_ITS | Encounter Summary ---
Author Organization [facility] Address [address] [place] [address] Care Team Providers Care Filter Tank Tender Helper Head Name Role Phone Lavell Marcos MD Primary Care Provider Jennifer Sylvester MD Primary Care Provider [phone] [facility], Pcp Primary Care Provider Unavailabl e Reason for Visit * Reason Onset Date Comments Prior Authorization 08/24/2019 ct chest 712 50 Encounter Details Date Type Department Care Team Description 08/24/2019 Telephone Pulmonology - [address] [place] [address] Eduardo Lino MD Prior Authorization (ct chest 19560) Social History Tobacco Use Types Packs/Day Years [...] Arreaga [place] an [place] for [place] chest 30388 to be done in Sep 2019. Is this patient still beingseen by your office? If so, please place new external order for [facility]. ?? Thank you, ?? Meena x [phone] Prior Auth Dept. documented in this encounter Plan of Treatment Not on file documented as of this encounter Visit Diagnoses Not on filedocumented in this encounter Care Teams Filter Tank Tender Helper Head Relationship Specialty Start Date End Date Lavell Marcos MD [address] [place] [address] PCP - General 04/06/07 02/08/21 Jennifer Sylvester MD [address] [place] [address] PCP - General Internal Medicine 02/09/21 01/22/23 [facility], [address] [address] PCP - General Internal Medicine 01/23/23 documented as of this encounter
--- OUTSIDE RECORDS SUMMARY | 2025-02-03 08:43 | XMS_ITS | Encounter Summary ---
Author Organization [facility] Address [address] [place] [address] Care Team Providers Care Pumping Station Engineer Name Role Phone Lavell Marcos MD Primary Care Provider [phone] Jennifer Sylvester MD Primary Care Provider [phone] [facility], Pcp Primary Care Provider Unavailabl e Encounter Details Date Type Department Care Team Description 2019 Business Doc Medical Records [address] [place] [address] Abstract, Provider Social History Tobacco Use Types [...] on filedocumented in this encounter Care Teams Pumping Station Engineer Relationship Specialty Start Date End Date Lavell Marcos MD [address] [place] [address] PCP - General 04/06/07 02/08/21 Jennifer Sylvester MD [address] [place] [address] [phone] PCP - General Internal Medicine 02/09/21 01/22/23 [facility], Pcp [address] [place] [address] PCP - General Internal Medicine 01/23/23 documented as of this encounter
--- OUTSIDE RECORDS SUMMARY | 2025-02-03 08:43 | XMS_ITS | Encounter Summary ---
Author Organization [facility] Address [address] [place] [address] Care Team Providers Care Head Of Digital Name Role Phone Lavell Marcos MD Primary Care Provider [phone] Jennifer Sylvester MD Primary Care Provider [phone] [facility], Pcp Primary Care Provider Unavailabl e Encounter Details Date Type Department Care Team Description 06/14/2014 Hospital Medical Records [address] [place] [address] Augie Braga MD Social History Tobacco Use [...] on filedocumented in this encounter Care Teams Head Of Digital Relationship Specialty Start Date End Date Lavell Marcos MD [address] [place] [address] PCP - General 04/06/07 02/08/21 Jennifer Sylvester MD [address] [place] [address] PCP - General Internal Medicine 02/09/21 01/22/23 [facility], Pcp [address] [place] [address] PCP - General Internal Medicine 01/23/23 documented as of this encounter
--- OUTSIDE RECORDS SUMMARY | 2025-02-03 08:43 | XMS_ITS ---
Author Organization [facility] Address [address] [place] [address] Care Team Providers Care Lodge Officer Name Role Phone Abby Potter Primary Care Provider Charity Castro [phone] REASON FOR VISIT 2/6 appt Encounters Encounter Location Date Provider Diagnosis [address] [address] 12/07/2024 Charity Marquez Plan Of Treatment Next Appt Details Provider Name:Charity Marquez , 03/07/2025 09:15:00 AM, [address] [place], [address], Progress Notes * Adelina TAVAREZ ADOB:[birth year] (79 yo F)Acc No.[id number]:12/07/2024 Patient:?Adelina TAVAREZ :1945???Age:79 Y???Sex:Female Address:[address] [place] [address] [place] [address] * true * Date:? Generated for Printi ng/[place]/eTransmitting on:?02/03/2025 08:43 AM EDT
--- OUTSIDE RECORDS SUMMARY | 2025-02-03 08:43 | XMS_ITS | Encounter Summary ---
Author Organization [facility] Address [address] [place] [address] Care Team Providers Care Forging Machine Hand Name Role Phone Lavell Marcos MD Primary Care Provider [phone] Jennifer Sylvester MD Primary Care Provider [phone] [facility], Pcp Primary Care Provider [facility] Encounter Details Date Type Department Care Team Description 04/28/2014 Software Engineer Intern Report Medical Records [address] [place] [address] Rich Beatty Social History Tobacco Use Types [...] on filedocumented in this encounter Care Teams Forging Machine Hand Relationship Specialty Start Date End Date Lavell Marcos MD [address] [place] [address] PCP - General 04/06/07 02/08/21 Jennifer Sylvester MD [address] [place] [address] PCP - General Internal Medicine 02/09/21 01/22/23 [facility], Pcp [address] [place] [address] PCP - General Internal Medicine 01/23/23 documented as of this encounter
--- OUTSIDE RECORDS SUMMARY | 2025-02-03 08:43 | XMS_ITS | Encounter Summary ---
Author Organization [facility] Address [address] [place] [address] Care Team Providers Care Skid Man Name Role Phone Lavell Marcos MD Primary Care Provider Jennifer Sylvester MD Primary Care Provider [phone] [facility], Pcp Primary Care Provider Unavailabl e Reason for Visit * Reason Onset Date Comments Orders Call 11/17/2013 Encounter Details Date Type Department Care Team Description 11/17/2013 Telephone Adult Medicine [facility] [address] [place] [address] Lavell Marcos MD [address] [place] [address] Orders Call Social History Tobacco Use Types [...] (pneumococcus) documented in this encounter Care Teams Skid Man Relationship Specialty Start Date End Date Lavell Marcos MD [address] [place] [address] PCP - General 04/06/07 02/08/21 Jennifer Sylvester MD [address] [place] [address] PCP - General Internal Medicine 02/09/21 01/22/23 [facility], [address] [address] PCP - General Internal Medicine 01/23/23 documented as of this encounter
[2025-02-03 08:44] VITALS: BP 130/68; PULSE 69; O2SAT 97; BMI 21.1
--- OUTSIDE RECORDS SUMMARY | 2025-02-03 08:44 | XMS_ITS | Encounter Summary ---
Author Organization [facility] Address [address] [place] [address] Care Team Providers Care Racetrack Steward Name Role Phone Lavell Marcos MD Primary Care Provider [phone] Jennifer Sylvester MD Primary Care Provider [phone] [facility], Pcp Primary Care Provider Unavailabl e Reason for Visit * Reason Onset Date Comments other 08/30/2019 Encounter Details Date Type Department Care Team Description 08/30/2019 Telephone Physiatry - [place] [address] [place] [address] Lavell Marcos MD [address] [place] [address] other Social History Tobacco Use Types Packs/Day [...] on filedocumented in this encounter Care Teams Racetrack Steward Relationship Specialty Start Date End Date Lavell Marcos MD [address] [place] [phone] PCP - General 04/06/07 02/08/21 Jennifer Sylvester MD [address] [place] [phone] PCP - General Internal Medicine 02/09/21 01/22/[address] [phone] PCP - General Internal Medicine 01/23/23 documented as of this encounter
--- OUTSIDE RECORDS SUMMARY | 2025-02-03 08:44 | XMS_ITS | Encounter Summary ---
Author Organization [facility] Address [address] [place] [address] Care Team Providers Care Day Care Provider Name Role Phone Lavell Marcos MD Primary Care Provider [phone] Jennifer Sylvester MD Primary Care Provider [phone] [facility], Pcp Primary Care Provider Unavaillegacy health e Encounter Details Date Type Department Care Team Description 12/03/2011 Transfer Records Medical Records [address] [place] [address] Social History Tobacco Use Types Packs/Day Years [...] on filedocumented in this encounter Care Teams Day Care Provider Relationship Specialty Start Date End Date Lavell Marcos MD [address] [place] [address] [phone] PCP - General 04/06/07 02/08/21 Jennifer Sylvester MD [address] [place] [address] PCP - General Internal Medicine 02/09/21 01/22/23 Jarrod, Pcp [address] [place] [phone] PCP - General Internal Medicine 01/23/23 documented as of this encounter
--- OUTSIDE RECORDS SUMMARY | 2025-02-03 08:44 | XMS_ITS | Encounter Summary ---
Author Organization [facility] Address [address] [place] [address] Care Team Providers Care Parts Chaser Name Role Phone Lavell Marcos MD Primary Care Provider [phone] Jennifer Sylvester MD Primary Care Provider [phone] [facility], Pcp Primary Care Provider Unavailabl e Encounter Details Date Type Department Care Team Description 06/07/2019 Batter Scaler Report Medical Records [address] [place] [phone] Jose Cornejo MD Social History Tobacco Use [...] on filedocumented in this encounter Care Teams Parts Chaser Relationship Specialty Start Date End Date Lavell Marcos MD [address] [place] [phone] PCP - General 04/06/07 02/08/21 Jennifer Sylvester MD [address] [place] [address] 27770 PCP - General Internal Medicine 02/09/21 01/22/23 [facility], Pcp [address] [place] [phone] PCP - General Internal Medicine 01/23/23 documented as of this encounter
--- OUTSIDE RECORDS SUMMARY | 2025-02-03 08:44 | XMS_ITS | Encounter Summary ---
Author Organization [facility] Address [address] [place] [address] Care Team Providers Care Bindery Manager Name Role Phone Lavell Marcos MD Primary Care Provider Jennifer Sylvester MD Primary Care Provider [phone] [facility], Pcp Primary Care Provider Unavailabl e Encounter Details Date Type Department Care Team Description 10/21/2016 Discount Clerk Report Medical Records [address] [place] [address] Eduardo Lino MD Social History Tobacco Use [...] on filedocumented in this encounter Care Teams Bindery Manager Relationship Specialty Start Date End Date Lavell Marcos MD [address] [place] [phone] PCP - General 04/06/07 02/08/21 Jennifer Sylvester MD [address] [place] [phone] PCP - General Internal Medicine 02/09/21 01/22/23 [facility], Pcp [address] [place] [phone] PCP - General Internal Medicine 01/23/23 documented as of this encounter
--- OUTSIDE RECORDS SUMMARY | 2025-02-03 08:44 | XMS_ITS | Encounter Summary ---
Author Organization [facility] Address [address] [place] [address] Care Team Providers Care Cook Station Name Role Phone Lavell Marcos MD Primary Care Provider [phone] Jennifer Sylvester MD Primary Care Provider [phone] [facility], Pcp Primary Care Provider Unavailabl e Encounter Details Date Type Department Care Team Description 09/02/2019 Old Medical Records Medical Records [address] [place] [phone] Abstract, Provider Social History Tobacco Use Types [...] filedocumented in this encounter Care Teams [place] Relationship Specialty Start Date End Date Lavell Marcos MD [address] [place] [phone] PCP - General 04/06/07 02/08/21 Jennifer Sylvester MD [address] [place] [address] [phone] PCP - General Internal Medicine 02/09/21 01/22/23 [facility], Pcp [address] [place] [phone] PCP - General Internal Medicine 01/23/23 documented as of this encounter
--- OUTSIDE RECORDS SUMMARY | 2025-02-03 08:44 | XMS_ITS | Encounter Summary ---
Author Organization [facility] Address [address] [place] [address] Care Team Providers Care Order Builder Loader Name Role Phone Lavell Marcos MD Primary Care Provider [phone] Jennifer Sylvester MD Primary Care Provider [phone] [facility], Pcp Primary Care Provider Unavailabl e Encounter Details Date Type Department Care Team Description 09/04/2012 Sybase Developer Report Medical Records [address] [place] [address] Eduardo Lino MD Social History Tobacco Use [...] on filedocumented in this encounter Care Teams Order Builder Loader Relationship Specialty Start Date End Date Lavell Marcos MD [address] [place] [phone] PCP - General 04/06/07 02/08/21 Jennifer Sylvester MD [address] [place] [address] PCP - General Internal Medicine 02/09/21 01/22/23 Jarrod, Joe [address] [place] [phone] PCP - General Internal Medicine 01/23/23 documented as of this encounter
--- OUTSIDE RECORDS SUMMARY | 2025-02-03 08:44 | XMS_ITS | Encounter Summary ---
Author Organization [facility] Address [address] [place] [address] Care Team Providers Care Administrative Clerk Name Role Phone Lavell Marcos MD Primary Care Provider [phone] Jennifer Sylvester MD Primary Care Provider [phone] [facility], Pcp Primary Care Provider Unavailabl e Encounter Details Date Type Department Care Team Description 04/08/2019 Hr Associate Report Medical Records [address] [place] [address] Jose Cornejo MD Social History Tobacco Use [...] on filedocumented in this encounter Care Teams Administrative Clerk Relationship Specialty Start Date End Date Lavell Marcos MD [address] [place] [phone] PCP - General 04/06/07 02/08/21 Jennifer Sylvester MD [address] [place] [address] [phone] PCP - General Internal Medicine 02/09/21 01/22/23 [facility], Pcp [address] [place] [address] [phone] PCP - General Internal Medicine 01/23/23 documented as of this encounter
--- OUTSIDE RECORDS SUMMARY | 2025-02-03 08:44 | XMS_ITS | Encounter Summary ---
Author Organization [facility] Address [address] [place] [address] Care Team Providers Care Stonemason Apprentice Name Role Phone Lavell Marcos MD Primary Care Provider [phone] Jennifer Sylvester MD Primary Care Provider [phone] [facility], Pcp Primary Care Provider [facility] Encounter Details Date Type Department Care Team Description 07/19/2016 Pt. Non Urgent Medical Question Adult Medicine [facility] [address] [place] [address] Lavell Marcos MD [address] [place] [phone] Social History Tobacco Use Types Packs/Day Years [...] on filedocumented in this encounter Care Teams Stonemason Apprentice Relationship Specialty Start Date End Date Lavell Marcos MD [address] [place] [phone] PCP - General 04/06/07 02/08/21 Jennifer Sylvester MD [address] [place] [address] [phone] PCP - General Internal Medicine 02/09/21 01/22/[address] [phone] PCP - General Internal Medicine 01/23/23 documented as of this encounter
--- OUTSIDE RECORDS SUMMARY | 2025-02-03 08:44 | XMS_ITS | Encounter Summary ---
Author Organization [facility] Address [address] [place] [address] Care Team Providers Care Dev Ops Engineer Name Role Phone Lavell Marcos MD Primary Care Provider Jennifer Sylvester MD Primary Care Provider [phone] [facility], Pcp Primary Care Provider Unavailabl e Encounter Details Date Type Department Care Team Description 05/07/2016 Reheat Furnace Operator Report Medical Records [address] [place] [address] Eduardo Lino MD Social History Tobacco Use [...] on filedocumented in this encounter Care Teams Dev Ops Engineer Relationship Specialty Start Date End Date Lavell Marcos MD [address] [place] [address] [phone] PCP - General 04/06/07 02/08/21 Jennifer Sylvester MD [address] [place] [address] [phone] PCP - General Internal Medicine 02/09/21 01/22/23 [facility], Pcp [address] [place] [address] [phone] PCP - General Internal Medicine 01/23/23 documented as of this encounter
--- OUTSIDE RECORDS SUMMARY | 2025-02-03 08:44 | XMS_ITS | Encounter Summary ---
Author Organization [facility] Address [address] [place] [address] Care Team Providers Care Care Technician Name Role Phone Jennifer Sylvester MD Primary Care Provider [facility], Pcp Primary Care Provider Unavailletty e Encounter Details Date Type Department Care Team Description 03/18/2022 Dot Etcher Apprentice Report Medical Records [address] [place] [address] Bib Sandoval MD Social History Tobacco Use [...] on filedocumented in this encounter Care Teams Care Technician Relationship Specialty Start Date End Date Jennifer Sylvester MD [address] [place] [address] [phone] PCP - General Internal Medicine 02/09/21 01/22/23 [facility], Pcp [address] [place] [address] [phone] PCP - General Internal Medicine 01/23/23 documented as of this encounter
--- OUTSIDE RECORDS SUMMARY | 2025-02-03 08:44 | XMS_ITS | Encounter Summary ---
Author Organization [facility] Address [address] [place] [address] Care Team Providers Care Curing Finisher Name Role Phone Jennifer Sylvester MD Primary Care Provider [phone] [facility], Pcp Primary Care Provider [facility] e Encounter Details Date Type Department Care Team Description 06/11/2022 Film Composer Report Medical Records [address] [place] [address] 22544 Bib Sandoval MD Social History Tobacco Use [...] on filedocumented in this encounter Care Teams Curing Finisher Relationship Specialty Start Date End Date Jennifer Sylvester MD [address] [place] [address] [phone] PCP - General Internal Medicine 02/09/21 01/22/23 [facility], Pcp [address] [place] [address] 13123 PCP - General Internal Medicine 01/23/23 documented as of this encounter
--- OUTSIDE RECORDS SUMMARY | 2025-02-03 08:44 | XMS_ITS | Encounter Summary ---
Author Organization [facility] Address [address] [place] [address] Care Team Providers Care Yard Person Name Role Phone Lavell Marcos MD Primary Care Provider Jennifer Sylvester MD Primary Care Provider [phone] [facility], Pcp Primary Care [facility] Encounter Details Date Type Department Care Team Description 01/03/2017 Service Desk Manager Report Medical Records [address] [place] [address] 85449 Erika Mueller NP Social History Tobacco Use [...] on filedocumented in this encounter Care Teams Yard Person Relationship Specialty Start Date End Date Lavell Marcos MD [address] [place] [address] 96602 PCP - General 04/06/07 02/08/21 Jennifer Sylvester MD [address] [place] [address] 27443 PCP - General Internal Medicine 02/09/21 01/22/23 [facility], Pcp [address] [place] [address] 21534 PCP - General Internal Medicine 01/23/23 documented as of this encounter
--- OUTSIDE RECORDS SUMMARY | 2025-02-03 08:44 | XMS_ITS | Encounter Summary ---
Author Organization [facility] Address [address] [place] [address] Care Team Providers Care Lead Burner Helper Name Role Phone Lavell Marcos MD Primary Care Provider [phone] Jennifer Sylvester MD Primary Care Provider [phone] [facility], Pcp Primary Care Provider Unavailabl e Encounter Details Date Type Department Care Team Description 03/04/2013 Bus Trolley And Taxi Instructor Report Medical Records [address] [place] [address] 55962 Eduardo Lino MD Social History Tobacco Use [...] on filedocumented in this encounter Care Teams Lead Burner Helper Relationship Specialty Start Date End Date Lavell Marcos MD [address] [place] [address] 29183 PCP - General 04/06/07 02/08/21 Jennifer Sylvester MD [address] [place] [address] 71150 PCP - General Internal Medicine 02/09/21 01/22/23 Jarrod, Joe [address] [place] [address] 75377 PCP - General Internal Medicine 01/23/23 documented as of this encounter
--- OUTSIDE RECORDS SUMMARY | 2025-02-03 08:44 | XMS_ITS | Encounter Summary ---
Author Organization [facility] Address [address] [place] [address] Care Team Providers Care External Grinder Tool Name Role Phone Lavell Marcos MD Primary Care Provider [phone] Jennifer Sylvester MD Primary Care Provider [phone] [facility], Pcp Primary Care [facility] Encounter Details Date Type Department Care Team Description 03/05/2013 Pt. Non Urgent Medical Question Adult Medicine [facility] [address] [place] [address] Lavell Marcos MD [address] [place] [address] 53743 HYPOTHYROIDISM (Primary Dx) Social History Tobacco Use [...] AM Subject: TSH Adelina Marcos, Dr. Larsen, [facility] did a TSH on 02/23/13. Result 0.09 Reference Range 0.40-5.00 The TSH seems low. When I went to the [facility] I thought my dosage was .05 Couldthis [...] [facility] Comment: If patient is -South African, multiply result by 1.21 Chronic Kidney Disease: < 60 ml/min/1.73 square meters Kidney Failure: < 15 ml/min/1.73 square meters Sodium 142 133 - 145 mEq/L 04/12/2013 4:04 PM [facility] Potassium 3.8 3.5 - 5.2 mEq/L 04/12/2013 4:04 PM [facility] Chloride 105 96 - 108 mEq/L 04/12/2013 4:04 PM [facility] CO2 28.2 21.0 - 32.0 mEq/L 04/12/2013 4:23 PM [facility] CALCIUM 9.5 8.5 - 10.5 mg/dL 04/12/2013 4:26 PM [facility] 04/12/2013 2:05 PM EDT 04/12/2013 2:05 PM EDT Lavell Marcos MD LAB [facility] [address] [place] [address] documented in this encounter Visit Diagnoses Diagnosis HYPOTHYROIDISM- Primary Unspecified hypothyroidism documented in this encounter Care Teams External Grinder Tool Relationship Specialty Start Date End Date Lavell Marcos MD [address] [place] [address] 28244 PCP - General 04/06/07 02/08/21 Jennifer Sylvester MD [address] [place] [address] 65285 PCP - General Internal Medicine 02/09/21 01/22/23 [facility], [address] [address] PCP - General Internal Medicine 01/23/23 documented as of this encounter
--- OUTSIDE RECORDS SUMMARY | 2025-02-03 08:44 | XMS_ITS | Encounter Summary ---
Author Organization [facility] Address [address] [place] [address] Care Team Providers Care Carbon Paper Interleafer Name Role Phone Jennifer Sylvester MD Primary Care Provider [phone] [facility], Pcp Primary Care Provider [facility] Encounter Details Date Type Department Care Team Description 09/24/2021 Material Flow Engineer Report Medical Records [address] [place] [address] 67703 Bib Sandoval MD Social History Tobacco Use [...] on filedocumented in this encounter Care Teams Carbon Paper Interleafer Relationship Specialty Start Date End Date Jennifer Sylvester MD [address] [place] [address] [phone] PCP - General Internal Medicine 02/09/21 01/22/23 On License Of [facility], Pcp [address] [place] [address] [phone] PCP - General Internal Medicine 01/23/23 documented as of this encounter
--- OUTSIDE RECORDS SUMMARY | 2025-02-03 08:44 | XMS_ITS | Encounter Summary ---
Author Organization [facility] Address [address] [place] [address] Care Team Providers Care Quality Assurance Assistant Name Role Phone Lavell Marcos MD Primary Care Provider [phone] Jennifer Sylvester MD Primary Care Provider [phone] [facility], Pcp Primary Care Provider Unavailabl e Encounter Details Date Type Department Care Team Description 05/24/2016 Hospital Medical Records [address] [place] [address] 46871 Eduardo Lino MD Social History Tobacco Use [...] on filedocumented in this encounter Care Teams Quality Assurance Assistant Relationship Specialty Start Date End Date Lavell Marcos MD [address] [place] [address] 08766 PCP - General 04/06/07 02/08/21 Jennifer Sylvester MD [address] [place] [address] 21212 PCP - General Internal Medicine 02/09/21 01/22/23 [facility], Pcp [address] [place] [address] [phone] PCP - General Internal Medicine 01/23/23 documented as of this encounter
--- OUTSIDE RECORDS SUMMARY | 2025-02-03 08:44 | XMS_ITS | Encounter Summary ---
Author Organization [facility] Address [address] [place] [address] Care Team Providers Care Mica Builder Name Role Phone Lavell Marcos MD Primary Care Provider [phone] Jennifer Sylvester MD Primary Care Provider [phone] [facility], Pcp Primary Care Provider Unavailabl e Encounter Details Date Type Department Care Team Description 01/10/2017 Air Brush Decorator Report Medical Records [address] [place] [address] 87122 Reji White MD [address] [place] [address] 96662 Social History Tobacco Use Types Packs/Day Years [...] on filedocumented in this encounter Care Teams Mica Builder Relationship Specialty Start Date End Date Lavell Marcos MD [address] [place] [address] 76767 PCP - General 04/06/07 02/08/21 Jennifer Sylvester MD [address] [place] [address] 86326 PCP - General Internal Medicine 02/09/21 01/22/23 [facility], Pcp [address] [place] [address] 19471 PCP - General Internal Medicine 01/23/23 documented as of this encounter
--- OUTSIDE RECORDS SUMMARY | 2025-02-03 08:44 | XMS_ITS | Encounter Summary ---
Author Organization [facility] Address [address] [place] [address] Care Team Providers Care Earth Science Faculty Member Name Role Phone Lavell Marcos MD Primary Care Provider [phone] Jennifer Sylvester MD Primary Care Provider [phone] [facility], Pcp Primary Care Provider Unavailabl e Encounter Details Date Type Department Care Team Description 02/05/2013 Turfgrass Management Professor Report Medical Records [address] [place] [address] 92228 Eduardo Lino MD Social History Tobacco Use [...] on filedocumented in this encounter Care Teams Earth Science Faculty Member Relationship Specialty Start Date End Date Lavell Marcos MD [address] [place] [address] 28303 PCP - General 04/06/07 02/08/21 Jennifer Sylvester MD [address] [place] [address] 81314 PCP - General Internal Medicine 02/09/21 01/22/23 Jarrod, Joe [address] [place] [address] 78426 PCP - General Internal Medicine 01/23/23 documented as of this encounter
--- OUTSIDE RECORDS SUMMARY | 2025-02-03 08:44 | XMS_ITS | Encounter Summary ---
Author Organization [facility] [place] [facility] Address [address] [place] [address] Care Team Providers Care Framing Specialist Name Role Phone Lavell Marcos MD Primary Care Provider Jennifer Sylvester MD Primary Care Provider [phone] [facility], Pcp Primary Care Provider Unavailabl e Encounter Details Date Type Department Care Team Description 09/02/2019 Water Fitness Instructor Report Medical Records [address] [place] [address] 8[address] Augie Braga MD Social History Tobacco Use [...] on filedocumented in this encounter Care Teams Framing Specialist Relationship Specialty Start Date End Date Lavell Marcos MD [address] [place] [address] 74170 PCP - General 04/06/07 02/08/21 Jennifer Sylvester MD [address] [place] [address] 09988 PCP - General Internal Medicine 02/09/21 01/22/23 [facility], Pcp [address] [place] [address] 31967 PCP - General Internal Medicine 01/23/23 documented as of this encounter
--- OUTSIDE RECORDS SUMMARY | 2025-02-03 08:44 | XMS_ITS | Encounter Summary ---
Author Organization [facility] Address [address] [place] [address] Care Team Providers Care Tanning Drum Operator Name Role Phone Jennifer Sylvester MD Primary Care Provider [phone] [facility], Pcp Primary Care Provider Unavailabl e Reason for Visit * Reason Comments E-prescribe Rx Request Encounter Details Date Type Department Care Team Description 09/20/2022 Refill Adult Medicine [facility] [address] [place], [place] [phone] [facility] [address] [place] [address] E-prescribe Rx Request Social History Tobacco Use [...] encounter Miscellaneous Notes * Telephone Encounter - Tasha Pitts L.P.N. - 11/26/2022 10:52 AM EST Pt has a 12/03 appt Lab Results Component Value Date CHOL 151 04/30/2021 LDL 58 04/30/2021 HDL 82 04/30/2021 TRIG 55 04/30/2021 SGOT 17 04/30/2021 SGPT 18 04/30/2021 * Telephone Encounter - Patty Roldan - 11/18/2022 3:09 PM EST 2nd attempt - wrong phone number listed on file Obtained new number but the phone just kept ringing. Attempted to call 2 more times and was hung upon by someone twice. Letter mailed to patients home * Telephone Encounter - Sharath Rivas M.A. - 10/23/2022 2:06 PM EST Pt n/s appt 10/23/22 @ 11:15 AM * Telephone Encounter - Tiara Liu - 09/20/2022 4:34 PM EST Patient would like script to be: E-PRESCRIBED/FAXED TO PHARMACY WHEN WAS THE PATIENT'S LAST APPOINTMENT IN ADULT MEDICINE? 08-13-21 WHEN WAS THE LAST TIME THE PATIENT SAW THEIR PCP? Same as above Does patient have an upcoming appointment? Patient was sent a My Chart request to set up an appointment as they are due. (THE MEDICATION REQUESTED IS ON THE MED [...] / Plan: [place] / Product Type: MEDICARE [id number] documented in this encounter Plan of Treatment Not on file documented as of this encounter Visit Diagnoses Not on filedocumented in this encounter Care Teams Tanning Drum Operator Relationship Specialty Start Date End Date Jennifer Sylvester MD [address] [place] [address] 01020 PCP - General Internal Medicine 02/09/21 01/22/23 [facility], Joe [address] [place] [address] 01664 PCP - General Internal Medicine 01/23/23 documented as of this encounter
--- OUTSIDE RECORDS SUMMARY | 2025-02-03 08:44 | XMS_ITS | Encounter Summary ---
Author Organization [facility] Address [address] [place] [address] Care Team Providers Care Finance Executive Name Role Phone Lavell Marcos MD Primary Care Provider Jennifer Sylvester MD Primary Care Provider [phone] [facility], Pcp Primary Care Provider Unavailabl e Encounter Details Date Type Department Care Team Description 09/15/2019 Human Resources Executive Assistant Report Medical Records [address] [place] [address] 52094 Rafat Gregorio MD Social History Tobacco Use [...] on filedocumented in this encounter Care Teams Finance Executive Relationship Specialty Start Date End Date Lavell Marcos MD [address] [place] [address] 36077 PCP - General 04/06/07 02/08/21 Jennifer Sylvester MD [address] [place] [address] 28032 PCP - General Internal Medicine 02/09/21 01/22/23 [facility], Pcp [address] [place] [address] 81182 PCP - General Internal Medicine 01/23/23 documented as of this encounter
--- OUTSIDE RECORDS SUMMARY | 2025-02-03 08:44 | XMS_ITS | Encounter Summary ---
Author Organization [facility] Address [address] [place] [address] Care Team Providers Care Glove Factory Sewer Name Role Phone Jennifer Sylvester MD Primary Care Provider [phone] Counts Include [address] [facility], Pcp Primary Care Provider Unavailletty e Encounter Details Date Type Department Care Team Description 08/08/2021 Manager Science Report Medical Records [address] [place] [address] 23830 Bib Sandoval MD Social History Tobacco Use [...] on filedocumented in this encounter Care Teams Glove Factory Sewer Relationship Specialty Start Date End Date Jennifer Sylvester MD [address] [place] [address] [phone] PCP - General Internal Medicine 02/09/21 01/22/23 Counts Include [address] [facility], Pcp [address] [place] [address] 37389 PCP - General Internal Medicine 01/23/23 documented as of this encounter
--- OUTSIDE RECORDS SUMMARY | 2025-02-03 08:44 | XMS_ITS | Encounter Summary ---
Author Organization [facility] Address [address] [place] [address] Care Team Providers Care Meat Products Demonstrator Name Role Phone Jennifer Sylvester MD Primary Care Provider [phone] [facility], Pcp Primary Care Provider Unavailletty e Encounter Details Date Type Department Care Team Description 08/03/2021 Hospital Medical Records [address] [place] [address]2639 Ned Mitchell MD Social History Tobacco Use [...] on filedocumented in this encounter Care Teams Meat Products Demonstrator Relationship Specialty Start Date End Date Jennifer Sylvester MD [address] [place] [address] [phone] PCP - General Internal Medicine 02/09/21 01/22/23 [facility], Pcp [address] [place] [address] 97023 PCP - General Internal Medicine 01/23/23 documented as of this encounter
--- OUTSIDE RECORDS SUMMARY | 2025-02-03 08:44 | XMS_ITS | Encounter Summary ---
Author Organization [facility] Address [address] [place] [address] Care Team Providers Care Form Designer Name Role Phone Lavell Marcos MD Primary Care Provider [phone] Jennifer Sylvester MD Primary Care Provider [phone] [facility], Pcp Primary Care [facility] Encounter Details Date Type Department Care Team Description 07/28/2012 Associate Scientist Report Medical Records [address] [place] [address] 60311 Rich Beatty Social History Tobacco Use Types [...] on filedocumented in this encounter Care Teams Form Designer Relationship Specialty Start Date End Date Lavell Marcos MD [address] [place] [address] 12515 PCP - General 04/06/07 02/08/21 Jennifer Sylvester MD [address] [place] [address] [phone] PCP - General Internal Medicine 02/09/21 01/22/23 Jarrod, Pcp [address] [place] [address] 25982 PCP - General Internal Medicine 01/23/23 documented as of this encounter
--- OUTSIDE RECORDS SUMMARY | 2025-02-03 08:44 | XMS_ITS | Clinical Summary ---
Author Organization [facility] Address [address] [place] [address] Care Team Providers Care Supervisor Laboratory Animal Facility Name Role Phone [facility], Pcp Primary Care [...] Dispensed Refills Start Date End Date Status [id number] FEINE 50-325-40 MG OR TABS (FIORICET) per [...] on Friday, Wednesdays and Fridays 0 Active [id number]-[id number]-X INC OR Take 1 Tab by mouth [...] left lobe of the liver, ultrasound examination, [facility], 12/12/2005. 5 mm angiomyolipomas in the [...] VACCINE Completed 06/22/2015, 11/17/19 14 Care Teams Supervisor Laboratory Animal Facility Relationship Specialty Start Date End Date [facility], Pcp PCP - General Internal Medicine 01/23/23
--- OUTSIDE RECORDS SUMMARY | 2025-02-03 08:44 | XMS_ITS | Encounter Summary ---
Author Organization [facility] Address [address] [place] [address] Care Team Providers Care Plate Filler Name Role Phone Lavell Marcos MD Primary Care Provider [phone] Jennifer Sylvester MD Primary Care Provider [phone] [facility], Pcp Primary Care Provider Unavailabl e Reason for Visit * Reason Onset Date Comments Echocardiogram 09/08/2012 Encounter Details Date Type Department Care Team Description 09/08/2012 Telephone Adult Medicine [address] [phone] Roselyn Tavarez PA-C Echocardiogram Social History Tobacco [...] for the echocardiogram has been faxed to [address] to be done documented in this encounter Plan of Treatment Not on file documented as of this encounter Visit Diagnoses Not on filedocumented in this encounter Care Teams Plate Filler Relationship Specialty Start Date End Date Lavell Marcos MD [address] [place] [address] [phone] PCP - General 04/06/07 02/08/21 Jennifer Sylvester MD [address] [place] [address] 01020 PCP - General Internal Medicine 02/09/21 01/22/23 [facility], Pcp [address] [place] [address] 70932 PCP - General Internal Medicine 01/23/23 documented as of this encounter
--- OUTSIDE RECORDS SUMMARY | 2025-02-03 08:44 | XMS_ITS | Encounter Summary ---
Author Organization [facility] Address [address] [place] [address] Care Team Providers Care Pin Pusher Name Role Phone Lavell Marcos MD Primary Care Provider Jennifer Sylvester MD Primary Care Provider [phone] [facility], Pcp Primary Care Provider Unavailabl e Encounter Details Date Type Department Care Team Description 08/17/2019 School Bus Driver/Custodian Report Medical Records [address] [place] [address] 10408 Eduardo Lino MD Social History Tobacco Use [...] on filedocumented in this encounter Care Teams Pin Pusher Relationship Specialty Start Date End Date Lavell Marcos MD [address] [place] [address] 32008 PCP - General 04/06/07 02/08/21 Jennifer Sylvester MD [address] [place] [address] 72777 PCP - General Internal Medicine 02/09/21 01/22/23 [facility], Pcp [address] [place] [address] 64290 PCP - General Internal Medicine 01/23/23 documented as of this encounter
--- OUTSIDE RECORDS SUMMARY | 2025-02-03 08:44 | XMS_ITS | Encounter Summary ---
Author Organization [facility] Address [address] [place] [address] Care Team Providers Care Flight Attendant Ramp Name Role Phone Lavell Marcos MD Primary Care Provider [phone] Jennifer Sylvester MD Primary Care Provider [phone] [facility], Pcp Primary Care Provider Unavailabl e Encounter Details Date Type Department Care Team Description 01/11/2016 Telephone Adult Medicine [address] [address] Lavell Marcos MD [address] [place] [address] 55301 Social History Tobacco Use Types Packs/Day Years [...] filedocumented in this encounter Care Teams Flight Attendant Ramp Relationship Specialty Start Date End Date Lavell Marcos MD [address] [place] [address] [phone] PCP - General 04/06/07 02/08/21 Jennifer Sylvester MD [address] [place] [address] 05406 PCP - General Internal Medicine 02/09/21 01/22/23 [facility], Pcp [address] [place] [address] 49159 PCP - General Internal Medicine 01/23/23 documented as of this encounter
--- OUTSIDE RECORDS SUMMARY | 2025-02-03 08:44 | XMS_ITS | Encounter Summary ---
Author Organization [facility] Address [address] [place] [address] Care Team Providers Care Ward Supervisor Name Role Phone Lavell Marcos MD Primary Care Provider Jennifer Sylvester MD Primary Care Provider [phone] [facility], Pcp Primary Care Provider [facility] Encounter Details Date Type Department Care Team Description 02/06/2016 School Based Therapist Report Medical Records [address] [place] [address] 52124 Bib Sandoval MD Social History Tobacco Use [...] on filedocumented in this encounter Care Teams Ward Supervisor Relationship Specialty Start Date End Date Lavell Marcos MD [address] [place] [address] 39359 PCP - General 04/06/07 02/08/21 Jennifer Sylvester MD [address] [place] [address] 68657 PCP - General Internal Medicine 02/09/21 01/22/23 [facility], Pcp [address] [place] [address] 43912 PCP - General Internal Medicine 01/23/23 documented as of this encounter
--- OUTSIDE RECORDS SUMMARY | 2025-02-03 08:44 | XMS_ITS | Encounter Summary ---
Author Organization [facility] Address [address] [place] [address] Care Team Providers Care Engine Assembly Supervisor Name Role Phone Lavell Marcos MD Primary Care Provider [phone] Jennifer Sylvester MD Primary Care Provider [phone] [facility], Pcp Primary Care Provider Unavailabl e Encounter Details Date Type Department Care Team Description 09/10/2019 Old Medical Records Medical Records [address] [place] [address] 48703 Abstract, Provider Social History Tobacco Use Types [...] on filedocumented in this encounter Care Teams Engine Assembly Supervisor Relationship Specialty Start Date End Date Lavell Marcos MD [address] [place] [address] 45408 PCP - General 04/06/07 02/08/21 Jennifer Sylvester MD [address] [place] [address] [phone] PCP - General Internal Medicine 02/09/21 01/22/23 [facility], Pcp [address] [place] [address] [phone] PCP - General Internal Medicine 01/23/23 documented as of this encounter
--- OUTSIDE RECORDS SUMMARY | 2025-02-03 08:44 | XMS_ITS | Encounter Summary ---
Author Organization [facility] Address [address] [place] [address] Care Team Providers Care Aviation Survival Technician Name Role Phone Lavell Marcos MD Primary Care Provider [phone] Jennifer Sylvester MD Primary Care Provider [phone] [facility], Pcp Primary Care Provider [facility] e Encounter Details Date Type Department Care Team Description 10/14/2016 Pt. Non Urgent Medic al Question Gastroenterology - [address] [address] Roger Erazo MD Social History Tobacco Use [...] on filedocumented in this encounter Care Teams Aviation Survival Technician Relationship Specialty Start Date End Date Lavell Marcos MD [address] [place] [address] PCP - General 04/06/07 02/08/21 Jennifer Sylvester MD [address] [place] [address] PCP - General Internal Medicine 02/09/21 01/22/23 [facility], [address] [address] PCP - General Internal Medicine 01/23/23 documented as of this encounter
== END 2025-02-03 09:27 | disposition home or self-care (01) ==
LOC: HO.HMCH 08:35
PROVIDERS: PCP Internal Medicine; Visit Provider Internal Medicine
DX: N64.4 Mastodynia (principal); F41.1 Generalized anxiety disorder; Z86.73 Personal history of transient ischemic attack (TIA), and cerebral infarction without residual deficits; E78.5 Hyperlipidemia, unspecified; J41.0 Simple chronic bronchitis; R20.0 Anesthesia of skin

== ENCOUNTER → 2025-02-03 08:35 | Outpatient (BNVA) | payer MEDICARE, OTHER, SELFPAY | PROVIDERS: PCP Internal Medicine; Visit Provider Internal Medicine | DX: N64.4 Mastodynia (principal); F41.1 Generalized anxiety disorder; E78.00 Pure hypercholesterolemia, unspecified; J41.0 Simple chronic bronchitis; R20.0 Anesthesia of skin; Z86.73 Personal history of transient ischemic attack (TIA), and cerebral infarction without residual deficits | CPT/HCPCS: 99212 ==

== ENCOUNTER 2025-02-15 09:15 | Outpatient (REF) | payer MEDICARE, OTHER, SELFPAY ==
--- NOTE | 2025-02-15 09:17 | EMG_ITS ---
Right median and ulnar motor and sensory studies were performed. Right radial sensory study was performed. Needle examination was tried, but she did not tolerate more than 1 insertion. IMPRESSION: 1. Mild right median neuropathy across carpal tunnel. 2. Mild right ulnar neuropathy across cubital tunnel. 3. Radiculopathy could not be ruled out because of lack of EMG data. MD DIONE Lopez/FRANCES / [id number]
--- OUTSIDE RECORDS SUMMARY | 2025-02-15 10:02 | XMS_ITS | Encounter Summary ---
Author Organization [facility] Address [address] [place] [address] Care Team Providers Care Customer Liaison Name Role Phone Lavell Marcos MD Primary Care Provider + [phone] Jennifer Sylvester MD Primary Care Provider [phone] [facility], Pcp [facility] Encounter Details Date Type Department Care Team Description 05/11/2020 Organic Lab Worker Report Medical Records [address] [place] [address] Abstract, Provider Social History Tobacco Use Types [...] on filedocumented in this encounter Care Teams Customer Liaison Relationship Specialty Start Date End Date Lavell Marcos MD [address] [place] [address] PCP - General 04/06/07 02/08/21 Jennifer Sylvester MD [address] [place] [address] [phone] PCP - General Internal Medicine 02/09/21 01/22/23 [facility], Pcp [address] [place] [address] PCP - General Internal Medicine 01/23/23 documented as of this encounter
--- OUTSIDE RECORDS SUMMARY | 2025-02-15 10:02 | XMS_ITS | Encounter Summary ---
Author Organization [facility] Address [address] [place] [address] Care Team Providers Care Stewardesses Teacher Name Role Phone Lavell Marcos MD Primary Care Provider [phone] Jennifer Sylvester MD Primary Care Provider [phone] [facility], Pcp Primary Care Provider Unavailabl e Encounter Details Date Type Department Care Team Description 03/17/2015 Release of Information Medical Records [address] [place], [place] [id number] Abstract, Provider Social History Tobacco Use Types [...] on filedocumented in this encounter Care Teams Stewardesses Teacher Relationship Specialty Start Date End Date Lavell Mracos MD [address] [place] [address] 777[address] PCP - General 04/06/07 02/08/21 Jennifer Sylvester MD [address] [place] [address] [phone] PCP - General Internal Medicine 02/09/21 01/22/23 [facility], Pcp [address] [place] [address] PCP - General Internal Medicine 01/23/23 documented as of this encounter
--- OUTSIDE RECORDS SUMMARY | 2025-02-15 10:02 | XMS_ITS | Encounter Summary ---
Author Organization [facility] Address [address] [place] [address] Care Team Providers Care Radiology Physician Name Role Phone Lavell Marcos MD Primary Care Provider Jennifer Sylvester MD Primary Care Provider [phone] [facility], Pcp Primary Care Provider Unavailabl e Encounter Details Date Type Department Care Team Description 02/19/2018 Cook Vacuum Kettle Report Medical Records [address] [place] [address] Jose Cornejo MD Social History Tobacco Use [...] on filedocumented in this encounter Care Teams Radiology Physician Relationship Specialty Start Date End Date Lavell Marcos MD [address] [place] [address] PCP - General 04/06/07 02/08/21 Jennifer Sylvester MD [address] [place] [address] PCP - General Internal Medicine 02/09/21 01/22/23 [facility], Pcp [address] [place] [address] PCP - General Internal Medicine 01/23/23 documented as of this encounter
--- OUTSIDE RECORDS SUMMARY | 2025-02-15 10:02 | XMS_ITS | Encounter Summary ---
Author Organization [facility] Address [address] [place] [address] Care Team Providers Care Sandstone Splitter Name Role Phone Lavell Marcos MD Primary Care Provider [phone] Jennifer Sylvester MD Primary Care Provider [phone] [facility], Pcp Primary Care Provider Unavailabl e Reason for Visit * Reason Onset Date Comments Faxed Refill 12/08/2018 Encounter Details Date Type Department Care Team Description 12/08/2018 Refill Pulmonology - [address] [place] [address] Eduardo Lino MD Faxed Refill [...] on filedocumented in this encounter Care Teams Sandstone Splitter Relationship Specialty Start Date End Date Lavell Marcos MD [address] [place] [address] PCP - General 04/06/07 02/08/21 Jennifer Sylvester MD [address] [place] [address] PCP - General Internal Medicine 02/09/21 01/22/[address] [address] [address] PCP - General Internal Medicine 01/23/23 documented as of this encounter
--- OUTSIDE RECORDS SUMMARY | 2025-02-15 10:02 | XMS_ITS | Encounter Summary ---
Author Organization [facility] Address [address] [place] [address] Care Team Providers Care Biometric Technician Name Role Phone Lavell Marcos MD Primary Care Provider + [phone] Jennifer Sylvester MD Primary Care Provider [phone] [facility], Pcp Primary Care Provider Unavailabl e Encounter Details Date Type Department Care Team Description 01/01/2021 Old Medical Records Medical Records [address] [place] [address] Abstract, Provider Social History Tobacco Use Types [...] on filedocumented in this encounter Care Teams Biometric Technician Relationship Specialty Start Date End Date Lavell Marcos MD [address] [place] [address] 369[address] PCP - General 04/06/07 02/08/21 Jennifer Sylvester MD [address] [place] [address] PCP - General Internal Medicine 02/09/21 01/22/23 [facility], Pcp [address] [place] [address] PCP - General Internal Medicine 01/23/23 documented as of this encounter
--- OUTSIDE RECORDS SUMMARY | 2025-02-15 10:02 | XMS_ITS | Encounter Summary ---
Author Organization [facility] Address [address] [place] [address] Care Team Providers Care Yacht Hand Name Role Phone Lavell Marcos MD Primary Care Provider [phone] Jennifer Sylvester MD Primary Care Provider [phone] [facility], Pcp Primary Care Provider Unavailabl e Encounter Details Date Type Department Care Team Description 04/10/2020 Clay Structure Builder And Servicer Report Medical Records [address] [place] [address] Johnna Serna MD Social History Tobacco Use [...] on filedocumented in this encounter Care Teams Yacht Hand Relationship Specialty Start Date End Date Lavell Marcos MD [address] [place] [address] PCP - General 04/06/07 02/08/21 Jennifer Sylvester MD [address] [place] [address] 265[address] PCP - General Internal Medicine 02/09/21 01/22/23 [facility], Pcp [address] [place] [address] PCP - General Internal Medicine 01/23/23 documented as of this encounter
--- OUTSIDE RECORDS SUMMARY | 2025-02-15 10:02 | XMS_ITS | Encounter Summary ---
Author Organization [facility] Address [address] [place] [address] Care Team Providers Care Vice President For Instruction Name Role Phone Lavell Marcos MD Primary Care Provider [phone] Jennifer Sylvester MD Primary Care Provider [phone] [facility], Pcp Primary Care Provider Unavailabl e Encounter Details Date Type Department Care Team Description 05/30/2020 Electric Clock Mechanic Report Medical Records [address] [place] [address] Reji White MD [address] [place] [address] Social History Tobacco Use Types Packs/Day Years [...] on filedocumented in this encounter Care Teams Vice President For Instruction Relationship Specialty Start Date End Date Lavell Marcos MD [address] [place] [address] PCP - General 04/06/07 02/08/21 Jennifer Sylvester MD [address] [place] [address] 96408 PCP - General Internal Medicine 02/09/21 01/22/23 [facility], Pcp [address] [place] [address] 84268 PCP - General Internal Medicine 01/23/23 documented as of this encounter
--- OUTSIDE RECORDS SUMMARY | 2025-02-15 10:02 | XMS_ITS | Encounter Summary ---
Author Organization [facility] Address [address] [place] [address] Care Team Providers Care Linoleum Tile Layer Name Role Phone Lavell Marcos MD Primary Care Provider Jennifer Sylvester MD Primary Care Provider [phone] [facility], Pcp Primary Care Provider Unavailabl e Encounter Details Date Type Department Care Team Description 06/30/2015 Core Baker Report Medical Records [address] [place] [address] Eduardo Lino MD Social History Tobacco Use [...] on filedocumented in this encounter Care Teams Linoleum Tile Layer Relationship Specialty Start Date End Date Lavell Marcos MD [address] [place] [address] PCP - General 04/06/07 02/08/21 Jennifer Sylvester MD [address] [place] [address] 26730 PCP - General Internal Medicine 02/09/21 01/22/23 [facility], Pcp [address] [place] [address] 08343 PCP - General Internal Medicine 01/23/23 documented as of this encounter
--- OUTSIDE RECORDS SUMMARY | 2025-02-15 10:02 | XMS_ITS | Encounter Summary ---
Author Organization [facility] Address [address] [place] [address] Care Team Providers Care Bottling Supervisor Name Role Phone Lavell Marcos MD Primary Care Provider [phone] Jennifer Sylvester MD Primary Care Provider [phone] [facility], Pcp Primary Care Provider Unavailabl e Encounter Details Date Type Department Care Team Description 01/21/2020 Firer Powerhouse Report Medical Records [address] [place] [address] Eduardo Lino MD Social History Tobacco Use [...] on filedocumented in this encounter Care Teams Bottling Supervisor Relationship Specialty Start Date End Date Lavell Marcos MD [address] [place] [address] PCP - General 04/06/07 02/08/21 Jennifer Sylvester MD [address] [place] [address] PCP - General Internal Medicine 02/09/21 01/22/23 [facility], Pcp [address] [place] [address] PCP - General Internal Medicine 01/23/23 documented as of this encounter
--- OUTSIDE RECORDS SUMMARY | 2025-02-15 10:02 | XMS_ITS | Encounter Summary ---
Author Organization [facility] Address [address] [place] [address] Care Team Providers Care Stoner Hand Name Role Phone Lavell Marcos MD Primary Care Provider [phone] Jennifer Sylvester MD Primary Care Provider [phone] [facility], Pcp Primary Care Provider [facility] Encounter Details Date Type Department Care Team Description 06/29/2015 Casting Machine Adjuster Report Medical Records [address] [place] [address] Bib Sandoval MD Social History Tobacco Use [...] filedocumented in this encounter Care Teams Stoner Hand Relationship Specialty Start Date End Date Lavell Marcos MD [address] [place] [address] PCP - General 04/06/07 02/08/21 Jennifer Sylvester MD [address] [place] [address] PCP - General Internal Medicine 02/09/21 01/22/23 [facility], Pcp [address] [place] [address] 478[address] PCP - General Internal Medicine 01/23/23 documented as of this encounter
--- OUTSIDE RECORDS SUMMARY | 2025-02-15 10:02 | XMS_ITS | Encounter Summary ---
Author Organization [facility] Address [address] [place] [address] Care Team Providers Care Digital Imaging Technician Name Role Phone Lavell Marcos MD Primary Care Provider [phone] Jennifer Sylvester MD Primary Care Provider [phone] [facility], Pcp Primary Care Provider Unavailabl e Encounter Details Date Type Department Care Team Description 08/17/2020 Hand Endband Cutter Report Medical Records [address] [place] [address] Maggy Betancur Social History Tobacco Use Types [...] have Coronavirus / COVID-19? No / Unsure 08/10/2020 10:44 AM EDT documented as of this encounter Plan of Treatment Not on file documented as of this encounter Visit Diagnoses Not on filedocumented in this encounter Care Teams Digital Imaging Technician Relationship Specialty Start Date End Date Lavell Marcos MD [address] [place] [address] PCP - General 04/06/07 02/08/21 Jennifer Sylvester MD [address] [place] [address] 04018 PCP - General Internal Medicine 02/09/21 01/22/23 [facility], Pcp [address] [place] [address] [place] [address] PCP - General Internal Medicine 01/23/23 documented as of this encounter
--- OUTSIDE RECORDS SUMMARY | 2025-02-15 10:02 | XMS_ITS | Encounter Summary ---
Author Organization [facility] Address [address] [place] [address] Care Team Providers Care Sharepoint Administrator Name Role Phone Lavell Marcos MD Primary Care Provider [phone] Jennifer Sylvester MD Primary Care Provider [phone] [facility], Pcp Primary Care Provider [facility] e Encounter Details Date Type Department Care Team Description 03/21/2015 Academic Assistant Report Medical Records [address] [place] [address] Cassius Paniagua PA-C Social History Tobacco Use [...] on filedocumented in this encounter Care Teams Sharepoint Administrator Relationship Specialty Start Date End Date Lavell Marcos MD [address] [place] [address] PCP - General 04/06/07 02/08/21 Jennifer Sylvester MD [address] [place] [address] 51401 PCP - General Internal Medicine 02/09/21 01/22/23 [facility], Pcp [address] [place] [address] PCP - General Internal Medicine 01/23/23 documented as of this encounter
--- OUTSIDE RECORDS SUMMARY | 2025-02-15 10:02 | XMS_ITS | Encounter Summary ---
Author Organization [facility] Address [address] [place] [address] Care Team Providers Care Child Care Team Lead Name Role Phone Lavell Marcos MD Primary Care Provider Jennifer Sylvester MD Primary Care Provider [phone] [facility], Pcp Primary Care Provider Unavailabl e Encounter Details Date Type Department Care Team Description 04/13/2015 Internal Investigator Report Medical Records [address] [place] [address] Eduardo Lino MD Social History Tobacco Use [...] on filedocumented in this encounter Care Teams Child Care Team Lead Relationship Specialty Start Date End Date Lavell Marcos MD [address] [place] [address]94 PCP - General 04/06/07 02/08/21 Jennifer Sylvester MD [address] [place] [address] 6[address]67 PCP - General Internal Medicine 02/09/21 01/22/23 [facility], Pcp [address] [place] [address] PCP - General Internal Medicine 01/23/23 documented as of this encounter
--- OUTSIDE RECORDS SUMMARY | 2025-02-15 10:02 | XMS_ITS | Encounter Summary ---
Author Organization [facility] Address [address] [place] [address] Care Team Providers Care Cut Pressman Name Role Phone Lavell Marcos MD Primary Care Provider [phone] Jennifer Sylvester MD Primary Care Provider [phone] [facility], Pcp Primary Care Provider Unavailabl e Reason for Visit * Reason Onset Date Comments medication problems 12/10/2018 Encounter Details Date Type Department Care Team Description 12/10/[address] [facility] [address] [place] [address] Lavell Marcos MD [address] [place] [address] 15933 medication problems Social History Tobacco Use Types [...] order sent today * Telephone Encounter - Althea Basurto - 12/10/2018 1:37 PM EST Who is calling? The patient Name of the medication HYDROmorphone (DILAUDID) 2 MG tablet 20 tablet 0 12/10/2018 12/17/2018 Si or 2 po q [id number] severe pain in neck and shoulders Class: Print Notes to Pharmacy: I am aware of her sensitivity to other narcotics Order: [id number] Date/Time Signed: 12/10/2018 11:27 AM What is the specific problem or interaction? 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 If the patient is having a problem with taking the med - how long has the problem been going on? N/A documented in this encounter Plan of Treatment Not on file documented as of this encounter Visit Diagnoses Not on filedocumented in this encounter Care Teams Cut Pressman Relationship Specialty Start Date End Date Lavell Marcos MD [address] [place] [address] PCP - General 04/06/07 02/08/21 Jnenifer Sylvester MD [address] [place] [address] PCP - General Internal Medicine 02/09/21 01/22/[address] [address] PCP - General Internal Medicine 01/23/23 documented as of this encounter
--- OUTSIDE RECORDS SUMMARY | 2025-02-15 10:03 | XMS_ITS | Encounter Summary ---
Author Organization [facility] Address [address] [place] [address] Care Team Providers Care Last Putter Away Name Role Phone Lavell Marcos MD Primary Care Provider [phone] Jennifer Sylvester MD Primary Care Provider [phone] [facility], Pcp Primary Care Provider Unavailabl e Encounter Details Date Type Department Care Team Description 06/18/2018 Supervisor Twisting Department Report Medical Records [address] [place] [address] Reji White MD [address] [place] [address] 8[address]13 Social History Tobacco Use Types Packs/Day Years [...] on filedocumented in this encounter Care Teams Last Putter Away Relationship Specialty Start Date End Date Lavell Marcos MD [address] [place] [address]602 PCP - General 04/06/07 02/08/21 Jennifer Sylvester MD [address] [place] [address] 53261 PCP - General Internal Medicine 02/09/21 01/22/23 [facility], Pcp [address] [place] [address] 53736 PCP - General Internal Medicine 01/23/23 documented as of this encounter
--- OUTSIDE RECORDS SUMMARY | 2025-02-15 10:03 | XMS_ITS | Encounter Summary ---
Author Organization [facility] Address [address] [place] [address] Care Team Providers Care Motor Grader Rough Grade Name Role Phone Lavell Marcos MD Primary Care Provider [phone] Jennifer Sylvester MD Primary Care Provider [phone] [facility], Pcp Primary Care Provider Unavailabl e Encounter Details Date Type Department Care Team Description 09/21/2014 Tank Erector Report Medical Records [address] [place] [address] [facility] [address] [place] [address] Social History Tobacco Use Types Packs/Day Years [...] on filedocumented in this encounter Care Teams Motor Grader Rough Grade Relationship Specialty Start Date End Date Lavell Marcos MD [address] [place] [address]463 PCP - General 04/06/07 02/08/21 Jennifer Sylvester MD [address] [place] [address] 91864 PCP - General Internal Medicine 02/09/21 01/22/23 [facility], Pcp [address] [place] [address] 9[address]18 PCP - General Internal Medicine 01/23/23 documented as of this encounter
--- OUTSIDE RECORDS SUMMARY | 2025-02-15 10:03 | XMS_ITS | Encounter Summary ---
Author Organization [facility] Address [address] [place] [address] Care Team Providers Care Rn Pediatric Name Role Phone Jennifer Sylvester MD Primary Care Provider [phone] [facility], Pcp Primary Care Provider Unavailabl e Encounter Details Date Type Department Care Team Description 02/22/2021 Interim Controller Report Medical Records [address] [place] [address] Melyssa Garcia MD Social History Tobacco Use [...] on filedocumented in this encounter Care Teams Rn Pediatric Relationship Specialty Start Date End Date Jennifer Sylvester MD [address] [place] [address] [phone] PCP - General Internal Medicine 02/09/21 01/22/23 [facility], Pcp [address] [place] [address] PCP - General Internal Medicine 01/23/23 documented as of this encounter
--- OUTSIDE RECORDS SUMMARY | 2025-02-15 10:03 | XMS_ITS | Encounter Summary ---
Author Organization [facility] Address [address] [place] [address] Care Team Providers Care Head Sulfide Operator Name Role Phone Lavell Marcos MD Primary Care Provider [phone] Jennifer Sylvester MD Primary Care Provider [phone] [facility], Pcp Primary Care Provider Unavailabl e Encounter Details Date Type Department Care Team Description 08/07/2018 Orders Only Pulmonology - [address] [place] [phone] Eduardo Lino MD Social History Tobacco [...] filedocumented in this encounter Care Teams Head Sulfide Operator Relationship Specialty Start Date End Date Lavell Marcos MD [address] [place] [address] PCP - General 04/06/07 02/08/21 Jennifer Sylvester MD [address] [place] [address] [phone] PCP - General Internal Medicine 02/09/21 01/22/23 [facility], [address] [address] PCP - General Internal Medicine 01/23/23 documented as of this encounter
--- OUTSIDE RECORDS SUMMARY | 2025-02-15 10:03 | XMS_ITS | Encounter Summary ---
Author Organization [facility] Address [address] [place] [address] Care Team Providers Care Hvac Sheet Metal Installer Name Role Phone Lavell Marcos MD Primary Care Provider [phone] Jennifer Sylvester MD Primary Care Provider [phone] [facility], Pcp Primary Care Provider Unavailabl e Encounter Details Date Type Department Care Team Description 01/02/2019 Rn Invasive Report Medical Records [address] [place] [address] Johnna Serna MD Social History Tobacco Use [...] on filedocumented in this encounter Care Teams Hvac Sheet Metal Installer Relationship Specialty Start Date End Date Lavell Marcos MD [address] [place] [address] 12663 PCP - General 04/06/07 02/08/21 Jennifer Sylvester MD [address] [place] [address] 21475 PCP - General Internal Medicine 02/09/21 01/22/23 [facility], Pcp [address] [place] [address] 67[address] PCP - General Internal Medicine 01/23/23 documented as of this encounter
--- OUTSIDE RECORDS SUMMARY | 2025-02-15 10:03 | XMS_ITS | Encounter Summary ---
Author Organization [facility] Address [address] [place] [address] Care Team Providers Care Repairer Controller Tester Name Role Phone Lavell Marcos MD Primary Care Provider [phone] Jennifer Sylvester MD Primary Care Provider [phone] [facility], Pcp Primary Care Provider Unavailabl e Encounter Details Date Type Department Care Team Description 11/09/2010 Thread Marker Report Medical Records [address] [place] [address] Rik Bauer, PAYossiC Social History Tobacco Use [...] filedocumented in this encounter Care Teams Repairer Controller Tester Relationship Specialty Start Date End Date Lavell Marcos MD [address] [place] [address] PCP - General 04/06/07 02/08/21 Jennifer Sylvester MD [address] [place] [address] 89610 PCP - General Internal Medicine 02/09/21 01/22/23 [facility], Pcp [address] [place] [address] 50831 PCP - General Internal Medicine 01/23/23 documented as of this encounter
--- OUTSIDE RECORDS SUMMARY | 2025-02-15 10:03 | XMS_ITS | Encounter Summary ---
Author Organization [facility] Address [address] [place] [address] Care Team Providers Care Magazine Grinder Loader Name Role Phone Lavell Marcos MD Primary Care Provider Jennifer Sylvester MD Primary Care Provider [phone] [facility], Pcp Primary Care Provider Unavailabl e Encounter Details Date Type Department Care Team Description 10/04/2014 Hereditary Cancer Qu iz Results Medical Records [address] [place], [place] [id number] Abstract, Provider Social History Tobacco Use Types [...] on filedocumented in this encounter Care Teams Magazine Grinder Loader Relationship Specialty Start Date End Date Lavell Marcos MD [address] [place] [address] 09138 PCP - General 04/06/07 02/08/21 Jennifer Sylvester MD [address] [place] [address] 40411 PCP - General Internal Medicine 02/09/21 01/22/23 [facility], Pcp [address] [place] [address] 06352 PCP - General Internal Medicine 01/23/23 documented as of this encounter
--- OUTSIDE RECORDS SUMMARY | 2025-02-15 10:03 | XMS_ITS | Encounter Summary ---
Author Organization [facility] Address [address] [place] [address] Care Team Providers Care Electronic Induction Hardener Name Role Phone Lavell Marcos MD Primary Care Provider [phone] Jennifer Sylvester MD Primary Care Provider [phone] [facility], Pcp Primary Care Provider [facility] Encounter Details Date Type Department Care Team Description 11/27/2018 Pt. Non Urgent Medic al Question Adult Medicine [address] [address] Luis Miguel Gomez MD Social History Tobacco [...] filedocumented in this encounter Care Teams Electronic Induction Hardener Relationship Specialty Start Date End Date Lavell Marcos MD [address] [place] [address] 17083 PCP - General 04/06/07 02/08/21 Jenniefr Sylvester MD [address] [place] [address] [phone] PCP - General Internal Medicine 02/09/21 01/22/23 [facility], Pcp [address] [place] [address] 39998 PCP - General Internal Medicine 01/23/23 documented as of this encounter
--- OUTSIDE RECORDS SUMMARY | 2025-02-15 10:03 | XMS_ITS | Encounter Summary ---
Author Organization [facility] Address [address] [place] [address] Care Team Providers Care Latex Spooler Name Role Phone Lavell Marcos MD Primary Care Provider Jennifer Sylvester MD Primary Care Provider [phone] [facility], Pcp Primary Care Provider Unavailabl e Encounter Details Date Type Department Care Team Description 02/28/2014 Septic Tank Servicer Report Medical Records [address] [place] [address] Eduardo Lino MD Social History Tobacco Use [...] on filedocumented in this encounter Care Teams Latex Spooler Relationship Specialty Start Date End Date Lavell Marcos MD [address] [place] [address] 18386 PCP - General 04/06/07 02/08/21 Jennifer Sylvester MD [address] [place] [address] 15745 PCP - General Internal Medicine 02/09/21 01/22/23 [facility], Pcp [address] [place] [address] 9[address]66 PCP - General Internal Medicine 01/23/23 documented as of this encounter
--- OUTSIDE RECORDS SUMMARY | 2025-02-15 10:03 | XMS_ITS | Encounter Summary ---
Author Organization [facility] Address [address] [place] [address] Care Team Providers Care Material Damage Appraiser Name Role Phone Lavell Marcos MD Primary Care Provider Jennifer Sylvester MD Primary Care Provider [phone] [facility], Pcp Primary Care Provider Unavailabl e Encounter Details Date Type Department Care Team Description 11/10/2014 Transmission Tester Report Medical Records [address] [place] [address] Eduardo Lino MD Social History Tobacco Use [...] on filedocumented in this encounter Care Teams Material Damage Appraiser Relationship Specialty Start Date End Date Lavell Marcos MD [address] [place] [address] 08180 PCP - General 04/06/07 02/08/21 Jennifer Sylvester MD [address] [place] [address] 51534 PCP - General Internal Medicine 02/09/21 01/22/23 [facility], Pcp [address] [place] [address]127 PCP - General Internal Medicine 01/23/23 documented as of this encounter
--- OUTSIDE RECORDS SUMMARY | 2025-02-15 10:03 | XMS_ITS | Encounter Summary ---
Author Organization [facility] Address [address] [place] [address] Care Team Providers Care De Icer Finisher Name Role Phone Lavell Marcos MD Primary Care Provider [phone] Jennifer Sylvester MD Primary Care Provider [phone] [facility], Pcp Primary Care Provider [facility] Encounter Details Date Type Department Care Team Description 04/08/2014 Occup Ther Report Medical Records [address] [place], [place] [id number] Rich Beatty Social History Tobacco Use Types [...] on filedocumented in this encounter Care Teams De Icer Finisher Relationship Specialty Start Date End Date Lavell Marcos MD [address] [place] [address] PCP - General 04/06/07 02/08/21 Jennifer Sylvester MD [address] [place] [address] 43923 PCP - General Internal Medicine 02/09/21 01/22/23 [facility], Pcp [address] [place] [address] 97982 PCP - General Internal Medicine 01/23/23 documented as of this encounter
--- OUTSIDE RECORDS SUMMARY | 2025-02-15 10:03 | XMS_ITS | Encounter Summary ---
Author Organization [facility] Address [address] [place] [address] Care Team Providers Care Carpenter Maintenance Name Role Phone Lavell Marcos MD Primary Care Provider [phone] Jennifer Sylvester MD Primary Care Provider [phone] [facility], Pcp Primary Care Provider Unavailabl e Reason for Visit * Reason Onset Date Comments Faxed Order 07/01/2018 Encounter Details Date Type Department Care Team Description 07/01/2018 Telephone Adult Medicine [address] [address] Lavell Marcos MD [address] [place] [address] Faxed Order Social History Tobacco Use Types Packs/Day Years [...] encounter Miscellaneous Notes * Telephone Encounter - Lyndsay Kyle - 07/01/2018 9:20 AM EDT Initial evaluation/plan of care from [facility] requiring physician signature, please have pcp sign and refax. Order placed in pcp bin documented in this encounter Plan of Treatment Not on file documented as of this encounter Visit Diagnoses Not on filedocumented in this encounter Care Teams Carpenter Maintenance Relationship Specialty Start Date End Date Lavell Marcos MD [address] [place] [address]645 PCP - General 04/06/07 02/08/21 Jennifer Sylvester MD [address] [place] [address] 45378 PCP - General Internal Medicine 02/09/21 01/22/23 [facility], [address] [address] PCP - General Internal Medicine 01/23/23 documented as of this encounter
--- OUTSIDE RECORDS SUMMARY | 2025-02-15 10:03 | XMS_ITS | Encounter Summary ---
Author Organization [facility] Address [address] [place] [address] Care Team Providers Care Drafter Chief Design Name Role Phone TariqMarleeelidia Marc Primary Care Provider Reason for Visit * Reason Onset Date Comments PAC Patient Request Call Back 06/08/2024 Encounter Details Date Type Department Care Team (Late st Contact Info) Description 06/08/2024 Telephone [facility] [address] [place] [address] Telephone Intake, Staff PAC Patient Request Call [...] for 9am. Patient can be reached at [phone]. Thank you - PAC documented in this encounter Plan of Treatment Upcoming Encounters Date Type Department Care Team (Late st Contact Info) Description 03/03/2025 9:30 AM EDT Follow-Up [facility] [address] [place] [address] Gaming Dealer: Carlos Diop MD [address] [place] [address] 06/15/2025 9:00 AM EDT Clinical Support [facility] [address] [place] [address] Gaming Dealer: Marlena Hurst documented as of this encounter Visit Diagnoses Not on filedocumented in this encounter Care Teams Drafter Chief Design Relationship Specialty Start Date End Date Abby Potter [address] [place] [address] [place] [address] PCP - General Internal Medicine 04/14/24 documented as of this encounter
--- OUTSIDE RECORDS SUMMARY | 2025-02-15 10:03 | XMS_ITS | Encounter Summary ---
Author Organization [facility] Address [address] [place] [address] Care Team Providers Care Steel Rule Die Maker Name Role Phone Lavell Marcos MD Primary Care Provider [phone] Jennifer Sylvester MD Primary Care Provider [phone] [facility], Pcp Primary Care Provider Unavailabl e Reason for Visit * Reason Comments E-prescribe Rx Request Encounter Details Date Type Department Care Team Description 05/17/2018 Refill Pulmonology - [address] [place] [phone] Eduardo Lino MD E-prescribe Rx Request Social History Tobacco Use [...] encounter Miscellaneous Notes * Telephone Encounter - Nava Gomez - 05/18/2018 8:09 AM EDT Patient would like script to be: E-PRESCRIBED/FAXED TO PHARMACY WHEN WAS THE PATIENT'S LAST APPOINTMENT WITH THE PRESCRIBING PROVIDER? 03/25/18 Does patient have an upcoming appointment? Yes (THE MEDICATION REQUESTED IS ON THE MED LIST ABOVE) All of the medications requested were on the CURRENT MEDS list Did you check the Pharmacy information above?: YES Patient wants: 90 -day supply Is this a mail order prescription request ? NO Patients current insurance carrier is: Payor: [employer] POS / Plan: PPO $0 [place] [id number] / Product Type: PPO [id number] documented in this encounter Plan of Treatment Not on file documented as of this encounter Visit Diagnoses Not on filedocumented in this encounter Care Teams Steel Rule Die Maker Relationship Specialty Start Date End Date Lavell Marcos MD [address] [place] [address] PCP - General 04/06/07 02/08/21 Jennifer Sylvester MD [address] [place] [address] 59771 PCP - General Internal Medicine 02/09/21 01/22/23 Joe Garay [address] [place] [address] PCP - General Internal Medicine 01/23/23 documented as of this encounter
--- OUTSIDE RECORDS SUMMARY | 2025-02-15 10:03 | XMS_ITS | Encounter Summary ---
Author Organization [facility] Address [address] [place] [address] Care Team Providers Care Assistant Oceanographer Name Role Phone Lavell Marcos MD Primary Care Provider [phone] Jennifer Sylvester MD Primary Care Provider [phone] [facility], Pcp Primary Care Provider Unavailmulticare health e Encounter Details Date Type Department Care Team Description 08/05/2014 Pt. Non Urgent Medical Question Adult Medicine [facility] [address] [place] [address] Lavell Marcos MD [address] [place] [address] Social History Tobacco Use Types Packs/Day Years [...] filedocumented in this encounter Care Teams Assistant Oceanographer Relationship Specialty Start Date End Date Lavell Marcos MD [address] [place] [address] 29545 PCP - General 04/06/07 02/08/21 Jennifer Sylvester MD [address] [place] [address] 75172 PCP - General Internal Medicine 02/09/21 01/22/[address] [address] PCP - General Internal Medicine 01/23/23 documented as of this encounter
--- OUTSIDE RECORDS SUMMARY | 2025-02-15 10:03 | XMS_ITS | Encounter Summary ---
Author Organization [facility] Address [address] [place] [address] Care Team Providers Care Business Development Consultant Name Role Phone Lavell Marcos MD Primary Care Provider [phone] Jennifer Sylvester MD Primary Care Provider [phone] [facility], Pcp Primary Care Provider Unavailabl e Encounter Details Date Type Department Care Team Description 01/11/2015 Hospital Medical Records [address] [place] [address] Eduardo Lino MD Social History Tobacco Use [...] on filedocumented in this encounter Care Teams Business Development Consultant Relationship Specialty Start Date End Date Lavell Marcos MD [address] [place] [address] PCP - General 04/06/07 02/08/21 Jennifer Sylvester MD [address] [place] [address] PCP - General Internal Medicine 02/09/21 01/22/23 [facility], Pcp [address] [place] [address] 33318 PCP - General Internal Medicine 01/23/23 documented as of this encounter
--- OUTSIDE RECORDS SUMMARY | 2025-02-15 10:03 | XMS_ITS | Encounter Summary ---
Author Organization [facility] Address [address] [place] [address] Care Team Providers Care Case Management Assistant Name Role Phone Jennifer Sylvester MD Primary Care Provider [phone] [facility], Pcp Primary Care Provider Unavailabl e Reason for Visit * Reason Onset Date Comments Mychart Rx Refill 06/26/2021 Encounter Details Date Type Department Care Team Description 06/26/2021 Refill Adult Medicine [address] [phone] Jennifer Sylvester MD [address] [place] [address] [phone] Mychart Rx Refill Social History Tobacco Use [...] Does patient have an upcoming appointment? Yes [id number] (THE MEDICATION REQUESTED IS ON THE MED [...] / Plan[place] / Product Type: MEDICARE [id number] documented in this encounter Plan of Treatment Not on file documented as of this encounter Visit Diagnoses Not on filedocumented in this encounter Care Teams Case Management Assistant Relationship Specialty Start Date End Date Jennifer Sylvester MD [address] [place] [address] PCP - General Internal Medicine 02/09/21 01/22/23 [facility] [address] [place] [address] PCP - General Internal Medicine 01/23/23 documented as of this encounter
--- OUTSIDE RECORDS SUMMARY | 2025-02-15 10:03 | XMS_ITS | Encounter Summary ---
Author Organization [facility] Address [address] [place] [address] Care Team Providers Care Inventory Control Clerk Name Role Phone Lavell Marcos MD Primary Care Provider [phone] Jennifer Sylvester MD Primary Care Provider [phone] [facility], Pcp Primary Care Provider Unavailabl e Encounter Details Date Type Department Care Team Description 12/29/2018 Transfer Records Medical Records [address] [place] [address] [place] [address] [place] [address] Social History Tobacco Use Types Packs/Day Years [...] filedocumented in this encounter Care Teams Inventory Control Clerk Relationship Specialty Start Date End Date Lavell Marcos MD [address] [place] [address] PCP - General 04/06/07 02/08/21 Jennifer Sylvester MD [address] [place] [address] PCP - General Internal Medicine 02/09/21 01/22/23 [facility], Pcp [address] [place] [address] PCP - General Internal Medicine 01/23/23 documented as of this encounter
--- OUTSIDE RECORDS SUMMARY | 2025-02-15 10:03 | XMS_ITS | Encounter Summary ---
Author Organization [facility] Address [address] [place] [address] Care Team Providers Care Cloth Washer Name Role Phone Lavell Marcos MD Primary Care Provider [phone] Jennifer Sylvester MD Primary Care Provider [phone] [facility], Pcp Primary Care Provider Unavailabl e Encounter Details Date Type Department Care Team Description 09/12/2014 Finish Rolls Operator Report Medical Records [address] [place] [address] [place] [address] [place] [address] Social History Tobacco Use Types Packs/Day Years [...] filedocumented in this encounter Care Teams Cloth Washer Relationship Specialty Start Date End Date Lavell Marcos MD [address] [place] [address] PCP - General 04/06/07 02/08/21 Jennifer Sylvester MD [address] [place] [address] PCP - General Internal Medicine 02/09/21 01/22/23 [facility], Pcp [address] [place] [address] PCP - General Internal Medicine 01/23/23 documented as of this encounter
--- OUTSIDE RECORDS SUMMARY | 2025-02-15 10:03 | XMS_ITS | Encounter Summary ---
Author Organization [facility] Address [address] [place] [address] Care Team Providers Care Pourer Crane Ladle Name Role Phone Lavell Marcos MD Primary Care Provider [phone] Jennifer Sylvester MD Primary Care Provider [phone] [facility], Pcp Primary Care Provider Unavailabl e Reason for Referral * - Authorized/Booked Specialty Diagnoses / Procedures Referred By Contjose rodríguez Referred To Contact Endocrinology Diagnoses Palpitations Mixed hyperlipidemia Procedures REFERRAL TO ENDOCRINOLOGY Lavell Marcos MD [address] [place] [address] [facility] [address] Referral ID Status Reason Start Date Expiration Date V isits Requested Visits Authorized NOT REQUIRED Authorized/ Booked 06/27/2014 06/27/2015 1 1 Encounter Details Date Type Department Care Team Description 06/23/2014 Pt. Non Urgent [place] [address] Ciera Real MD Palpitations; Mixed hyperlipidemia Social [...] hyperlipidemia documented in this encounter Care Teams Pourer Crane Ladle Relationship Specialty Start Date End Date Lavell Marcos MD [address] [place], [place] [address] PCP - General 04/06/07 02/08/21 Jennifer Sylvester MD [address] [place] [address] PCP - General Internal Medicine 02/09/21 01/22/23 [facility], [address] [address] PCP - General Internal Medicine 01/23/23 documented as of this encounter
--- OUTSIDE RECORDS SUMMARY | 2025-02-15 10:03 | XMS_ITS | Encounter Summary ---
Author Organization [facility] Address [address] [place] [address] Care Team Providers Care Base Filler Operator Name Role Phone Lavell Marcos MD Primary Care Provider [phone] Jennifer Sylvester MD Primary Care Provider [phone] [facility], Pcp Primary Care Provider [facility] e Encounter Details Date Type Department Care Team Description 11/02/2018 Java Web Architect Report Medical Records [address] [place] [address] Abstract, Provider Social History Tobacco Use Types [...] on filedocumented in this encounter Care Teams Base Filler Operator Relationship Specialty Start Date End Date Lavell Marcos MD [address] [place] [address] PCP - General 04/06/07 02/08/21 Jennifer Sylvester MD [address] [place] [address] [phone] PCP - General Internal Medicine 02/09/21 01/22/23 [facility], Pcp [address] [place] [address] PCP - General Internal Medicine 01/23/23 documented as of this encounter
--- OUTSIDE RECORDS SUMMARY | 2025-02-15 10:03 | XMS_ITS | Clinical Summary ---
Author Organization [facility] Address [address] [place] [address] Care Team Providers Care Department Manager Name Role Phone TariqAbby Monico Primary Care Provider [phone] Allergies Active Allergy Reactions Criticality Noted Date [...] Description 12/14/2024 9:30 AM EST Clinical Support [facility] [address] [place] [address] Manager Books: Deanna Miller LPN Age-related osteoporosis without current pathological fracture (Primary Dx) 12/01/2024 myChart Message [facility] [address] [place] [address] Manager Books: Carlos Diop MD Low potassium from Last [...] Description 03/03/2025 9:30 AM EDT Follow-Up [facility] [address] [place] [address] Manager Books: Carlos Diop MD [address] [place] [address] [phone] 06/15/2025 9:00 AM EDT Clinical Support [facility] [address] [place] [address] Manager Books: Marlena Hurst Health Maintenance Due Date Last [...] Procedure Name Priority Date/Time Associated Diagnosis Comments HM DEXA SCAN 10/31/2023 from Last 3 Months or Most Recently Relevant to Health Maintenance Results * Due to [place] state law, this organization might not be sharing negative HIV tests. * Dexa Scan (10/31/2023) Anatomical Region Laterality Modality Other 10/31/2023 us Onbase Scan [facility] HEALTH MAINTENANCE Final Resu lt from Last 3 Months or Most Recently Relevant to Health Maintenance Insurance MEDICARE [facility] Care Teams Department Manager Relationship Specialty Start Date End Date Abby Potter [address] [place] [address] [place] [address] PCP - General Internal Medicine 04/14/24
--- OUTSIDE RECORDS SUMMARY | 2025-02-15 10:03 | XMS_ITS | Encounter Summary ---
Author Organization [facility] Address [address] [place] [address] Care Team Providers Care Track Superintendent Name Role Phone Jennifer Sylvester MD Primary Care Provider [phone] [facility], Pcp Primary Care Provider Unavailabl e Reason for Visit * Reason Onset Date Comments Breathing Problems 06/12/2021 Encounter Details Date Type Department Care Team Description 06/12/2021 Telephone Cardio PVC POC [address] [facility] [address] [place] [address] Reji White MD [address] [place] [address] Breathing Problems Social History Tobacco Use Types [...] from yesterday be faxed to triage fax [phone] * Telephone Encounter - Christy Griffin - 06/13/2021 8:27 AM EDT Patient reports saw grinding wheel inspector yesterday (Dr. Eduardo Lino -Bit Sander ) and was told to call for a cardiology appt andressa Per patient, grinding wheel inspector told her she may have blocked arteries. [...] p/u. Will try again soon phone # [phone] * Telephone Encounter - Ann Marie Ferrer - 06/12/2021 3:35 PM EDT 06/12/21 Pt looking to speak to care team regarding breathing problems. Pt can be reached at [phone] documented in this encounter Plan of Treatment Not on file documented as of this encounter Visit Diagnoses Not on filedocumented in this encounter Care Teams Track Superintendent Relationship Specialty Start Date End Date Jennifer Sylvester MD [address] [place] [address] PCP - General Internal Medicine 02/09/21 01/22/23 [facility], [place] [address] PCP - General Internal Medicine 01/23/23 documented as of this encounter
--- OUTSIDE RECORDS SUMMARY | 2025-02-15 10:03 | XMS_ITS | Encounter Summary ---
Author Organization [facility] Address [address] [place] [address] Care Team Providers Care Psychiatric Social Worker Name Role Phone Lavell Marcos MD Primary Care Provider [phone] Jennifer Sylvester MD Primary Care Provider [phone] [facility], Pcp Primary Care Provider Unavailabl e Encounter Details Date Type Department Care Team Description 02/07/2014 Attending Urologist Report Medical Records [address] [place] [address] Eduardo Lino MD Social History Tobacco Use [...] on filedocumented in this encounter Care Teams Psychiatric Social Worker Relationship Specialty Start Date End Date Lavell Marcos MD [address] [place] [address] PCP - General 04/06/07 02/08/21 Jennifer Sylvester MD [address] [place] [address] 180[address] PCP - General Internal Medicine 02/09/21 01/22/23 [facility], Pcp [address] [place] [address] PCP - General Internal Medicine 01/23/23 documented as of this encounter
--- OUTSIDE RECORDS SUMMARY | 2025-02-15 10:03 | XMS_ITS | Encounter Summary ---
Author Organization [facility] Address [address] [place] [address] Care Team Providers Care Opto Mechanical Engineer Name Role Phone Lavell Marcos MD Primary Care Provider [phone] Jennifer Sylvester MD Primary Care Provider [phone] [facility], Pcp Primary Care Provider [facility] Encounter Details Date Type Department Care Team Description 10/09/2015 Ring Spinner Report Medical Records [address] [place] [address] 08451 Bib Sandoval MD Social History Tobacco Use [...] on filedocumented in this encounter Care Teams Opto Mechanical Engineer Relationship Specialty Start Date End Date Lavell Marcos MD [address] [place] [address] 52999 PCP - General 04/06/07 02/08/21 Jennifer Sylvester MD [address] [place] [address] 14037 PCP - General Internal Medicine 02/09/21 01/22/23 [facility], Pcp [address] [place] [address] [phone] PCP - General Internal Medicine 01/23/23 documented as of this encounter
--- OUTSIDE RECORDS SUMMARY | 2025-02-15 10:03 | XMS_ITS | Encounter Summary ---
Author Organization [facility] Address [address] [place] [address] Care Team Providers Care Card Player Name Role Phone Lavell Marcos MD Primary Care Provider Jennifer Sylvester MD Primary Care Provider [phone] [facility], Pcp Primary Care Provider [facility] e Encounter Details Date Type Department Care Team Description 11/16/2014 Sales Support Coordinator Report Medical Records [address] [place], [place] [id number] Rich Beatty Social History Tobacco Use Types [...] on filedocumented in this encounter Care Teams Card Player Relationship Specialty Start Date End Date Lavell Marcos MD [address] [place] [address] 22230 PCP - General 04/06/07 02/08/21 Jennifer Sylvester MD [address] [place] [address] 60409 PCP - General Internal Medicine 02/09/21 01/22/23 [facility], Pcp [address] [place] [address] 40370 PCP - General Internal Medicine 01/23/23 documented as of this encounter
--- OUTSIDE RECORDS SUMMARY | 2025-02-15 10:03 | XMS_ITS | Encounter Summary ---
Author Organization [facility] Address [address] [place] [address] Care Team Providers Care Front End Ui Developer Name Role Phone Lavell Marcos MD Primary Care Provider [phone] Jennifer Sylvester MD Primary Care Provider [phone] [facility], Pcp Primary Care Provider Unavailabl e Encounter Details Date Type Department Care Team Description 01/22/2011 Automotive Porter Report Medical Records [address] [place] [address] 99058 Jinny Lainez NP Social History Tobacco Use [...] on filedocumented in this encounter Care Teams Front End Ui Developer Relationship Specialty Start Date End Date Lavell Marcos MD [address] [place] [address] 30395 PCP - General 04/06/07 02/08/21 Jennifer Sylvester MD [address] [place] [address] [phone] PCP - General Internal Medicine 02/09/21 01/22/23 [facility], Pcp [address] [place] [address] 52810 PCP - General Internal Medicine 01/23/23 documented as of this encounter
--- OUTSIDE RECORDS SUMMARY | 2025-02-15 10:03 | XMS_ITS | Referral Summary ---
Author Organization [facility] Address [address] [place] [address] Care Team Providers Care Lacemaker Name Role Phone Abby Potter Primary Care Provider Encounters Date Type Department Care Team Description 12/14/2024 9:30 AM EST Clinical Support [facility] [address] [place] [address] 70897 Ccnp: Deanna Miller LPN Age-related osteoporosis without current pathological fracture (Primary Dx) 12/01/2024 myChart Message [facility] [address] [place] [address] [phone] Ccnp: Carlos Diop MD Low potassium from Last [...] Info) Description 03/03/2025 9:30 AM EDT Follow-Up [facility] [address] [place] [address] 46577 Ccnp: Carlos Diop MD [address] [place] [address] 41475 06/15/2025 9:00 AM EDT Clinical Support [facility] [address] [place] [address] 80996 Ccnp: Marlena Hurst Procedures * Due to [facility] law, this organization might not be sharing negative HIV tests. Procedure Name Priority Date/Time Associated Diagnosis Comments HM DEXA SCAN 10/31/2023 from Last 3 Months or Most Recently Relevant to Health Maintenance Results * Due to [facility] law, this organization might not be sharing negative HIV tests. * HM Dexa Scan (10/31/2023) Anatomical Region Laterality Modality Other 10/31/2023 us Onbase Scan [facility] Final Resu lt from Last 3 Months or Most Recently Relevant to Health Maintenance Insurance MEDICARE [facility] Care Teams Lacemaker Relationship Specialty Start Date End Date Abby Potter [address] [facility] [place] [address] PCP - General Internal Medicine 04/14/24
--- OUTSIDE RECORDS SUMMARY | 2025-02-15 10:03 | XMS_ITS | Encounter Summary ---
Author Organization [facility] Address [address] [place] [address] Care Team Providers Care Route Vending Machine Servicer Name Role Phone Lavell Marcos MD Primary Care Provider Jennifer Sylvester MD Primary Care Provider [phone] [facility], Pcp Primary Care Provider [facility] e Encounter Details Date Type Department Care Team Description 11/16/2014 Employment Recruiter Report Medical Records [address] [place], [place] [id number] Rich Beatty Social History Tobacco Use Types [...] on filedocumented in this encounter Care Teams Route Vending Machine Servicer Relationship Specialty Start Date End Date Lavell Marcos MD [address] [place] [address] 98189 PCP - General 04/06/07 02/08/21 Jennifer Sylvester MD [address] [place] [address] 25363 PCP - General Internal Medicine 02/09/21 01/22/23 [facility], Pcp [address] [place] [address] 94731 PCP - General Internal Medicine 01/23/23 documented as of this encounter
--- OUTSIDE RECORDS SUMMARY | 2025-02-15 10:03 | XMS_ITS | Encounter Summary ---
Author Organization [facility] Address [address] [place] [address] Care Team Providers Care Card Painter Name Role Phone Lavell Marcos MD Primary Care Provider + [phone] Jennifer Sylvester MD Primary Care Provider [phone] [facility], Pcp Primary Care Provider [facility] e Encounter Details Date Type Department Care Team Description 11/26/2018 Pt. Non Urgent Medic al Question Adult Medicine [address] [id number] Luis Miguel Gomez MD Social History Tobacco [...] filedocumented in this encounter Care Teams Card Painter Relationship Specialty Start Date End Date Lavell Marcos MD [address] [place] [address] 64500 PCP - General 04/06/07 02/08/21 Jennifer Sylvester MD [address] [place] [address] 84530 PCP - General Internal Medicine 02/09/21 01/22/23 [facility], [address] [address] PCP - General Internal Medicine 01/23/23 documented as of this encounter
--- OUTSIDE RECORDS SUMMARY | 2025-02-15 10:03 | XMS_ITS | Encounter Summary ---
Author Organization [facility] Address [address] [place] [address] Care Team Providers Care Electric Utility Lineworker Name Role Phone Lavell Marcos MD Primary Care Provider [phone] Jennifer Sylvester MD Primary Care Provider [phone] [facility], Pcp Primary Care Provider Unavailabl e Reason for Visit * Reason Onset Date Comments other 08/03/2018 office notes Encounter Details Date Type Department Care Team Description 08/03/2018 Telephone Pulmonology - [address] [place] [phone] Eduardo Lino MD other (office notes ) [...] Miscellaneous Notes * Telephone Encounter - Sam Jonse PA-C - 08/10/2018 8:22 AM EDT I [...] PM EDT Ashwin spoke to Alize at [employer] .she said nebulizer has to be mentioned in the note if you can add that in. * Telephone Encounter - Miek Lepe - 08/06/2018 3:36 PM EDT Spoke to [facility] she will call me back * [...] what to do. Please call her at [phone]. * Telephone Encounter - Magalys Azevedo - 08/03/2018 4:12 PM EDT Needs office notes faxed over to supply [employer] for her nebulizer machine documented in this encounter Plan of Treatment Not on file documented as of this encounter Visit Diagnoses Not on filedocumented in this encounter Care Teams Electric Utility Lineworker Relationship Specialty Start Date End Date Lavell Marcos MD [address] [place] [address] 34477 PCP - General 04/06/07 02/08/21 Jennifer Sylvester MD [address] [place] [address] [phone] PCP - General Internal Medicine 02/09/21 01/22/23 [facility], [address] [address] PCP - General Internal Medicine 01/23/23 documented as of this encounter
--- OUTSIDE RECORDS SUMMARY | 2025-02-15 10:03 | XMS_ITS | Encounter Summary ---
Author Organization [facility] Address [address] [place] [address] Care Team Providers Care Flatbed Stitcher Name Role Phone Jennifer Sylvester MD Primary Care Provider [phone] [facility], Pcp Primary Care Provider Unavailabl e Encounter Details Date Type Department Care Team Description 06/12/2021 Balling Machine Operator Report Medical Records [address] [place] [address] Eduardo Lino MD Social History Tobacco Use [...] on filedocumented in this encounter Care Teams Flatbed Stitcher Relationship Specialty Start Date End Date Jennifer Sylvester MD [address] [place] [address] [phone] PCP - General Internal Medicine 02/09/21 01/22/23 [facility], Pcp [address] [place] [address] 7[address] PCP - General Internal Medicine 01/23/23 documented as of this encounter
--- OUTSIDE RECORDS SUMMARY | 2025-02-15 10:03 | XMS_ITS | Encounter Summary ---
Author Organization [facility] Address [address] [place] [address] Care Team Providers Care Desktop Analyst Name Role Phone Lavell Marcos MD Primary Care Provider [phone] Jennifer Sylvester MD Primary Care Provider [phone] [facility], Pcp Primary Care Provider [facility] e Encounter Details Date Type Department Care Team Description 02/23/2014 Account Services Associate Report Medical Records [address] [place], [place] [phone] Rich Beatty Social History Tobacco Use Types [...] on filedocumented in this encounter Care Teams Desktop Analyst Relationship Specialty Start Date End Date Lavell Marcos MD [address] [place] [address] 53367 PCP - General 04/06/07 02/08/21 Jennifer Sylvester MD [address] [place] [address] 05925 PCP - General Internal Medicine 02/09/21 01/22/23 [facility], Pcp [address] [place] [address] 04456 PCP - General Internal Medicine 01/23/23 documented as of this encounter
--- OUTSIDE RECORDS SUMMARY | 2025-02-15 10:03 | XMS_ITS | Encounter Summary ---
Author Organization [facility] Address [address] [place] [address] Care Team Providers Care Mobile Disc Jockey Name Role Phone Lavell Marcos MD Primary Care Provider [phone] Jennifer Sylvester MD Primary Care Provider [facility], Pcp Primary Care Provider [facility] e Encounter Details Date Type Department Care Team Description 07/24/2010 Roll Forming Machine Set Up Mechanic Report Medical Records [address] [place] [address] Rich Beatty Social History Tobacco Use Types [...] on filedocumented in this encounter Care Teams Mobile Disc Jockey Relationship Specialty Start Date End Date Lavell Marcos MD [address] [place] [address] 97163 PCP - General 04/06/07 02/08/21 Jennifer Sylvester MD [address] [place] [address] [phone] PCP - General Internal Medicine 02/09/21 01/22/23 [facility], Pcp [address] [place] [address] 37679 PCP - General Internal Medicine 01/23/23 documented as of this encounter
--- OUTSIDE RECORDS SUMMARY | 2025-02-15 10:03 | XMS_ITS | Encounter Summary ---
Author Organization [facility] Address [address] [place] [address] Care Team Providers Care Fruit Inspector Name Role Phone Lavell Marcos MD Primary Care Provider [phone] Jennifer Sylvester MD Primary Care Provider [phone] [facility], Pcp Primary Care Provider Unavailabl e Encounter Details Date Type Department Care Team Description 06/14/2014 Hospital Medical Records [address] [place] [address]11 Augie Braga MD Social History Tobacco Use [...] on filedocumented in this encounter Care Teams Fruit Inspector Relationship Specialty Start Date End Date Lavell Marcos MD [address] [place] [address] 05474 PCP - General 04/06/07 02/08/21 Jennifer Sylvester MD [address] [place] [address] 15904 PCP - General Internal Medicine 02/09/21 01/22/23 [facility], Pcp [address] [place] [address] 57433 PCP - General Internal Medicine 01/23/23 documented as of this encounter
--- OUTSIDE RECORDS SUMMARY | 2025-02-15 10:03 | XMS_ITS | Encounter Summary ---
Author Organization [facility] Address [address] [place] [address] Care Team Providers Care Pie Bottomer Name Role Phone Lavell Marcos MD Primary Care Provider Jennifer Sylvester MD Primary Care Provider [phone] [facility], Pcp Primary Care Provider [facility]ail[facility] e Encounter Details Date Type Department Care Team Description 03/29/2014 Brass And Wind Instrument Repairer Report Medical Records [address] [place], [place] [address] Rich Beatty Social History Tobacco Use Types [...] on filedocumented in this encounter Care Teams Pie Bottomer Relationship Specialty Start Date End Date Lavell Marcos MD [address] [place] [address] 34220 PCP - General 04/06/07 02/08/21 Jennifer Sylvester MD [address] [place] [address] 21082 PCP - General Internal Medicine 02/09/21 01/22/23 [facility], Pcp [address] [place] [address] 32808 PCP - General Internal Medicine 01/23/23 documented as of this encounter
--- OUTSIDE RECORDS SUMMARY | 2025-02-15 10:03 | XMS_ITS | Encounter Summary ---
Author Organization [facility] Address [address] [place] [address] Care Team Providers Care Traction Power Engineer Name Role Phone Lavell Marcos MD Primary Care Provider [phone] Jennifer Sylvester MD Primary Care Provider [phone] [facility], Pcp Primary Care Provider [facility] e Encounter Details Date Type Department Care Team Description 01/07/2019 Qa Test Analyst Report Medical Records [address] [place] [address] 76109 Abstract, Provider Social History Tobacco Use Types [...] on filedocumented in this encounter Care Teams Traction Power Engineer Relationship Specialty Start Date End Date Lavell Marcos MD [address] [place] [address] 89586 PCP - General 04/06/07 02/08/21 Jennifer Sylvester MD [address] [place] [address] [phone] PCP - General Internal Medicine 02/09/21 01/22/23 [facility], Pcp [address] [place] [address] 26552 PCP - General Internal Medicine 01/23/23 documented as of this encounter
--- OUTSIDE RECORDS SUMMARY | 2025-02-15 10:03 | XMS_ITS | Encounter Summary ---
Author Organization [facility] Address [address] [place] [address] Care Team Providers Care Wholesaler Name Role Phone Lavell Marcos MD Primary Care Provider Jennifer Sylvester MD Primary Care Provider [phone] [facility], Pcp Primary Care Provider Unavailabl e Encounter Details Date Type Department Care Team Description 06/30/2014 Corn Popper Report Medical Records [address] [place] [address] 70218 Maggy Betancur Social History Tobacco Use Types [...] on filedocumented in this encounter Care Teams Wholesaler Relationship Specialty Start Date End Date Lavell Marcos MD [address] [place] [address] 72197 PCP - General 04/06/07 02/08/21 Jennifer Sylvester MD [address] [place] [address] 12979 PCP - General Internal Medicine 02/09/21 01/22/23 [facility], Pcp [address] [place] [address] 17580 PCP - General Internal Medicine 01/23/23 documented as of this encounter
--- OUTSIDE RECORDS SUMMARY | 2025-02-15 10:03 | XMS_ITS | Encounter Summary ---
Author Organization [facility] Address [address] [place] [address] Care Team Providers Care Manager Latin Name Role Phone Lavell Marcos MD Primary Care Provider + [phone] Jennifer Sylvester MD Primary Care Provider [phone] [facility], Pcp Primary Care Provider Unavailabl e Encounter Details Date Type Department Care Team Description 06/24/2018 Orders Only Pulmonology - [address] [place] [address] Eduardo Lino MD Social History [...] filedocumented in this encounter Care Teams Manager Latin Relationship Specialty Start Date End Date Lavell Marcos MD [address] [place] [address] 33985 PCP - General 04/06/07 02/08/21 Jennifer Sylvester MD [address] [place] [address] 02367 PCP - General Internal Medicine 02/09/21 01/22/23 [facility], Pcp [address] [place] [address] 66089 PCP - General Internal Medicine 01/23/23 documented as of this encounter
--- OUTSIDE RECORDS SUMMARY | 2025-02-15 10:03 | XMS_ITS | Encounter Summary ---
Author Organization [facility] Address [address] [place] [address] Care Team Providers Care Slide Machine Tender Name Role Phone Lavell Marcos MD Primary Care Provider [phone] Jennifer Sylvester MD Primary Care Provider [phone] [facility], Pcp Primary Care Provider Unavailabl e Encounter Details Date Type Department Care Team Description 01/03/2018 Hospital Medical Records [address] [place], [place] [phone] Govind Munguia Social History Tobacco Use Types [...] on filedocumented in this encounter Care Teams Slide Machine Tender Relationship Specialty Start Date End Date Lavell Marcos MD [address] [place] [address] 21126 PCP - General 04/06/07 02/08/21 Jennifer Sylvester MD [address] [place] [address] 04602 PCP - General Internal Medicine 02/09/21 01/22/23 [facility], Pcp [address] [place] [address] 12503 PCP - General Internal Medicine 01/23/23 documented as of this encounter
--- OUTSIDE RECORDS SUMMARY | 2025-02-15 10:04 | XMS_ITS | Encounter Summary ---
Author Organization [facility] Address [address] [place] [address] Care Team Providers Care Javascript Software Engineer Name Role Phone Lavell Marcos MD Primary Care Provider Jennifer Sylvester MD Primary Care Provider [phone] [facility], Pcp Primary Care Provider Unavailabl e Encounter Details Date Type Department Care Team Description 04/08/2019 Tire Fixer Report Medical Records [address] [place] [address] Jose Cornejo MD Social History Tobacco Use [...] on filedocumented in this encounter Care Teams Javascript Software Engineer Relationship Specialty Start Date End Date Lavell Marcos MD [address] [place] [address] 63636 PCP - General 04/06/07 02/08/21 Jennifer Sylvester MD [address] [place] [address] 87134 PCP - General Internal Medicine 02/09/21 01/22/23 [facility], Pcp [address] [place] [address] 35903 PCP - General Internal Medicine 01/23/23 documented as of this encounter
--- OUTSIDE RECORDS SUMMARY | 2025-02-15 10:04 | XMS_ITS | Encounter Summary ---
Author Organization [facility] Address [address] [place] [address] Care Team Providers Care Casino Dealer Name Role Phone Lavell Marcos MD Primary Care Provider Jennifer Sylvester MD Primary Care Provider [phone] [facility], Pcp Primary Care Provider [facility] e Encounter Details Date Type Department Care Team Description 11/14/2011 Hospital Medical Records [address] [place] [address]143 Yazan Lang Social History Tobacco Use Types [...] on filedocumented in this encounter Care Teams Casino Dealer Relationship Specialty Start Date End Date Lavell Marcos MD [address] [place] [address] 55436 PCP - General 04/06/07 02/08/21 Jennifer Sylvester MD [address] [place] [address] 47708 PCP - General Internal Medicine 02/09/21 01/22/23 [facility], Pcp [address] [place] [address] 00323 PCP - General Internal Medicine 01/23/23 documented as of this encounter
--- OUTSIDE RECORDS SUMMARY | 2025-02-15 10:04 | XMS_ITS | Encounter Summary ---
Author Organization [facility] Address [address] [place] [address] Care Team Providers Care Correspondence Dictator Name Role Phone Lavell Marcos MD Primary Care Provider Jennifer Sylvester MD Primary Care Provider [phone] [facility], Pcp Primary Care Provider Unavailabl e Reason for Visit * Reason Onset Date Comments Faxed Refill 09/16/2016 Encounter Details Date Type Department Care Team Description 09/16/2016 Refill Adult Medicine [address] [address] Lavell Marcos MD [address] [place] [address] 61159 Faxed Refill Social History Tobacco Use Types [...] encounter Miscellaneous Notes * Telephone Encounter - Lakia Verde M.A. - 09/16/2016 2:39 PM EST Faxed to pharmacy * Telephone Encounter - Noemy Diaz M.A. - 09/16/2016 1:42 PM EST Joseph 06/17/16 F/u apt 12/31/16 Last refill 06/25/16 Component Value Date CHOL 163 06/26/2016 LDL 70 06/26/2016 HDL 82 06/26/2016 TRIG 54 06/26/2016 * Telephone Encounter - Griselda Tubbs - 09/16/2016 1:04 PM EST Patient would like script to be: E-PRESCRIBED/FAXED TO PHARMACY WHEN WAS THE PATIENT'S LAST APPOINTMENT IN ADULT MEDICINE? 06/17/16 WHEN WAS THE LAST TIME THE PATIENT SAW THEIR PCP? Same as above Does patient have an upcoming appointment? Yes 12/31/15 (THE MEDICATION REQUESTED IS ON THE MED LIST ABOVE) All of the medications requested were on the CURRENT MEDS list Did you check the Pharmacy information above?: YES Patient wants: 90 -day supply Is this a mail order prescription request ? YES Patients current insurance carrier is: Payor: [employer]/PPO POS / Plan: PPO $0 [place] [id number] / Product Type: PPO [id number] documented in this encounter Plan of Treatment Not on file documented as of this encounter Visit Diagnoses Not on filedocumented in this encounter Care Teams Correspondence Dictator Relationship Specialty Start Date End Date Lavell Marcos MD [address] [place] [address]20 PCP - General 04/06/07 02/08/21 Jennifer Sylvester MD [address] [place] [address] [phone] PCP - General Internal Medicine 02/09/21 01/22/23 [facility], Pcp [address] [place] [address] PCP - General Internal Medicine 01/23/23 documented as of this encounter
--- OUTSIDE RECORDS SUMMARY | 2025-02-15 10:04 | XMS_ITS | Encounter Summary ---
Author Organization [facility] Address [address] [place] [address] Care Team Providers Care Manager Solar Name Role Phone Lavell Marcos MD Primary Care Provider [phone] Jennifer Sylvester MD Primary Care Provider [phone] [facility], Pcp Primary Care Provider Unavailabl e Encounter Details Date Type Department Care Team Description 09/15/2019 Old Medical Records Medical Records [address] [place] [address] Abstract, Provider Social History Tobacco Use Types [...] filedocumented in this encounter Care Teams Manager Solar Relationship Specialty Start Date End Date Lavell Marcos MD [address] [place] [address] 55767 PCP - General 04/06/07 02/08/21 Jennifer Sylvester MD [address] [place] [address] [phone] PCP - General Internal Medicine 02/09/21 01/22/23 [facility], Pcp [address] [place] [address] 21080 PCP - General Internal Medicine 01/23/23 documented as of this encounter
--- OUTSIDE RECORDS SUMMARY | 2025-02-15 10:04 | XMS_ITS | Encounter Summary ---
Author Organization [facility] Address [address] [place] [address] Care Team Providers Care Passenger Service Supervisor Name Role Phone Lavell Marcos MD Primary Care Provider [phone] Jennifer Sylvester MD Primary Care Provider [phone] [facility], Pcp Primary Care Provider Unavailabl e Encounter Details Date Type Department Care Team Description 08/17/2019 Injection Molding Machine Operator Report Medical Records [address] [place] [address] Eduardo Lino MD Social History Tobacco Use [...] on filedocumented in this encounter Care Teams Passenger Service Supervisor Relationship Specialty Start Date End Date Lavell Marcos MD [address] [place] [address] 06917 PCP - General 04/06/07 02/08/21 Jennifer Sylvester MD [address] [place] [address] 98067 PCP - General Internal Medicine 02/09/21 01/22/23 [facility], Pcp [address] [place] [address] 00858 PCP - General Internal Medicine 01/23/23 documented as of this encounter
--- OUTSIDE RECORDS SUMMARY | 2025-02-15 10:04 | XMS_ITS | Encounter Summary ---
Author Organization [facility] Address [address] [place] [address] Care Team Providers Care Knitting Inspector Name Role Phone Lavell Marcos MD Primary Care Provider Jennifer Sylvester MD Primary Care Provider [phone] [facility], Pcp Primary Care Provider Unavailabl e Encounter Details Date Type Department Care Team Description 09/09/2019 Tandem Mill Operator Report Medical Records [address] [place] [address]24 Jose Cornejo MD Social History Tobacco Use [...] on filedocumented in this encounter Care Teams Knitting Inspector Relationship Specialty Start Date End Date Lavell Marcos MD [address] [place] [address] 00251 PCP - General 04/06/07 02/08/21 Jennifer Sylvester MD [address] [place] [address] 71782 PCP - General Internal Medicine 02/09/21 01/22/23 [facility], Pcp [address] [place] [address] 43909 PCP - General Internal Medicine 01/23/23 documented as of this encounter
--- OUTSIDE RECORDS SUMMARY | 2025-02-15 10:04 | XMS_ITS | Encounter Summary ---
Author Organization [facility] Address [address] [place] [address] Care Team Providers Care Hand Candy Dipper Name Role Phone Lavell Marcos MD Primary Care Provider [phone] Jennifer Sylvester MD Primary Care Provider [phone] [facility], Pcp Primary Care Provider Unavailabl e Encounter Details Date Type Department Care Team Description 10/21/2017 [facility] Medical Records [address] [place] [address]11 Abstract, Provider Social History Tobacco Use Types [...] on filedocumented in this encounter Care Teams Hand Candy Dipper Relationship Specialty Start Date End Date Lavell Marcos MD [address] [place] [address] 72502 PCP - General 04/06/07 02/08/21 Jennifer Sylvester MD [address] [place] [address] [phone] PCP - General Internal Medicine 02/09/21 01/22/23 [facility], Pcp [address] [place] [address] 53611 PCP - General Internal Medicine 01/23/23 documented as of this encounter
--- OUTSIDE RECORDS SUMMARY | 2025-02-15 10:04 | XMS_ITS | Encounter Summary ---
Author Organization [facility] Address [address] [place] [address] Care Team Providers Care Cnc Service Engineer Name Role Phone Lavell Marcos MD Primary Care Provider [phone] Jennifer Sylvester MD Primary Care Provider [phone] [facility], Pcp Primary Care Provider Unavailabl e Encounter Details Date Type Department Care Team Description 12/19/2016 Business Doc Medical Records [address] [place] [address] 31216 Abstract, Provider Social History Tobacco Use Types [...] on filedocumented in this encounter Care Teams Cnc Service Engineer Relationship Specialty Start Date End Date Lavell Marcos MD [address] [place] [address] 58251 PCP - General 04/06/07 02/08/21 Jennifer Sylvester MD [address] [place] [address] [phone] PCP - General Internal Medicine 02/09/21 01/22/23 [facility], Pcp [address] [place] [address] 78478 PCP - General Internal Medicine 01/23/23 documented as of this encounter
--- OUTSIDE RECORDS SUMMARY | 2025-02-15 10:04 | XMS_ITS | Encounter Summary ---
Author Organization [facility] Address [address] [place] [address] Care Team Providers Care Wafer Polishing Lead Worker Name Role Phone Lavell Marcos MD Primary Care Provider [phone] Jennifer Sylvester MD Primary Care Provider [phone] [facility], Pcp Primary Care Provider Unavailabl e Reason for Visit * Reason Comments E-prescribe Rx Request Encounter Details Date Type Department Care Team Description 03/04/2017 Refill Adult Medicine [address] [address] Lavell Marcos MD [address] [place] [address] 56627 E-prescribe Rx Request Social History Tobacco Use [...] Payor: ALICIA/ERINN POS / Plan: PPO $0 [employer] [id number] / Product Type: PPO [id number] documented in this encounter Plan of Treatment Not on file documented as of this encounter Visit Diagnoses Not on filedocumented in this encounter Care Teams Wafer Polishing Lead Worker Relationship Specialty Start Date End Date Lavell Marcos MD [address] [place] [address] 10792 PCP - General 04/06/07 02/08/21 Jennifer Sylvester MD [address] [place] [address] 63019 PCP - General Internal Medicine 02/09/21 [facility] [address] [place] [address] PCP - General Internal Medicine 01/23/23 documented as of this encounter
--- OUTSIDE RECORDS SUMMARY | 2025-02-15 10:04 | XMS_ITS | Encounter Summary ---
Author Organization [facility] Address [address] [place] [address] Care Team Providers Care Correctional Counselor Name Role Phone Jennifer Sylvester MD Primary Care Provider [phone] [facility], Pcp Primary Care Provider Unavailletty e Encounter Details Date Type Department Care Team Description 08/06/2021 Hospital Medical Records [address] [place] [address] Souleymane Stearns MD Social History Tobacco Use [...] on filedocumented in this encounter Care Teams Correctional Counselor Relationship Specialty Start Date End Date Jennifer Sylvester MD [address] [place] [address] [phone] PCP - General Internal Medicine 02/09/21 01/22/23 [facility], Pcp [address] [place] [address] 19740 PCP - General Internal Medicine 01/23/23 documented as of this encounter
--- OUTSIDE RECORDS SUMMARY | 2025-02-15 10:04 | XMS_ITS | Encounter Summary ---
Author Organization [facility] Address [address] [place] [address] Care Team Providers Care Wearing Apparel Folder Name Role Phone Lavell Marcos MD Primary Care Provider Jennifer Sylvester MD Primary Care Provider [phone] [facility], Pcp Primary Care Provider Unavailabl e Encounter Details Date Type Department Care Team Description 08/17/2019 Enamel Dipper Report Medical Records [address] [place] [address] Eduardo Lino MD Social History Tobacco Use [...] on filedocumented in this encounter Care Teams Wearing Apparel Folder Relationship Specialty Start Date End Date Lavell Marcos MD [address] [place] [address] 22245 PCP - General 04/06/07 02/08/21 Jennifer Sylvester MD [address] [place] [address] 92086 PCP - General Internal Medicine 02/09/21 01/22/23 [facility], Pcp [address] [place] [address] 40499 PCP - General Internal Medicine 01/23/23 documented as of this encounter
--- OUTSIDE RECORDS SUMMARY | 2025-02-15 10:04 | XMS_ITS | Encounter Summary ---
Author Organization [facility] Address [address] [place] [address] Care Team Providers Care Sandwich Peddler Name Role Phone Lavell Marcos MD Primary Care Provider [phone] Jennifer Sylvester MD Primary Care Provider [phone] [facility], Pcp Primary Care Provider Unavailabl e Reason for Visit * Reason Onset Date Comments other 08/30/2019 Encounter Details Date Type Department Care Team Description 08/30/2019 Telephone Physiatry - [place] [address] [place] [address] Lavell Marcos MD [address] [place] [address] other Social History Tobacco Use Types Packs/Day [...] on filedocumented in this encounter Care Teams Sandwich Peddler Relationship Specialty Start Date End Date Lavell Marcos MD [address] [place] [address] 34056 PCP - General 04/06/07 02/08/21 Jennifer Sylvester MD [address] [place] [address] 59451 PCP - General Internal Medicine 02/09/21 01/22/[address] [address] PCP - General Internal Medicine 01/23/23 documented as of this encounter
--- OUTSIDE RECORDS SUMMARY | 2025-02-15 10:04 | XMS_ITS | Encounter Summary ---
Author Organization [facility] Address [address] [place] [address] Care Team Providers Care Wool Classer Name Role Phone Lavell Marcos MD Primary Care Provider [phone] Jennifer Sylvester MD Primary Care Provider [phone] [facility], Pcp Primary Care Provider Unavailabl e Encounter Details Date Type Department Care Team Description 04/28/2017 Orders Only Adult Medicine [address] [address] Sam Santiago PA-C [address] [place] [address] Other dysphagia Social History Tobacco Use Types [...] dysphagia documented in this encounter Care Teams Wool Classer Relationship Specialty Start Date End Date Lavell Marcos MD [address] [place] [address] 96343 PCP - General 04/06/07 02/08/21 Jennifer Sylvester MD [address] [place] [address] 01020 PCP - General Internal Medicine 02/09/21 01/22/23 [facility], Pcp [address] [place] [address] 85459 PCP - General Internal Medicine 01/23/23 documented as of this encounter
--- OUTSIDE RECORDS SUMMARY | 2025-02-15 10:04 | XMS_ITS | Encounter Summary ---
Author Organization [facility] Address [address] [place] [address] Care Team Providers Care Clean Up Person Name Role Phone Lavell Marcos MD Primary Care Provider [phone] Jennifer Sylvester MD Primary Care Provider [phone] [facility], Pcp Primary Care Provider Unavailabl e Encounter Details Date Type Department Care Team Description 01/14/2020 Hot Saw Operator Report Medical Records [address] [place] [address] Eduardo Lino MD Social History Tobacco Use [...] on filedocumented in this encounter Care Teams Clean Up Person Relationship Specialty Start Date End Date Lavell Marcos MD [address] [place] [address] 33245 PCP - General 04/06/07 02/08/21 Jennifer Sylvester MD [address] [place] [address] 43034 PCP - General Internal Medicine 02/09/21 01/22/23 [facility], Pcp [address] [place] [address] 92200 PCP - General Internal Medicine 01/23/23 documented as of this encounter
--- OUTSIDE RECORDS SUMMARY | 2025-02-15 10:04 | XMS_ITS | Encounter Summary ---
Author Organization [facility] Address [address] [place] [address] Care Team Providers Care Hearing Aid Dispenser Name Role Phone Lavell Marcos MD Primary Care Provider [phone] Jennifer Sylvester MD Primary Care Provider [phone] [facility] [place], Pcp Primary Care Provider Unavailabl e Reason for Visit * Reason Onset Date Comments Medication 02/12/2017 acid reflux Encounter Details Date Type Department Care Team Description 02/12/2017 Telephone Gastroenterology - [address] [address] Roger Erazo MD Medication (acid reflux) Social [...] 20 mg twice a day to the [facility] pharmacy listed in her chart. She should [...] Primary documented in this encounter Care Teams Hearing Aid Dispenser Relationship Specialty Start Date End Date Lavell Marcos MD [address] [place] [address]956 PCP - General 04/06/07 02/08/21 Jennifer Sylvester MD [address] [place] [address] 41347 PCP - General Internal Medicine 02/09/21 01/22/23 [facility] [place], [address] [address] PCP - General Internal Medicine 01/23/23 documented as of this encounter
--- OUTSIDE RECORDS SUMMARY | 2025-02-15 10:04 | XMS_ITS | Encounter Summary ---
Author Organization [facility] Address [address] [place] [address] Care Team Providers Care Flat Knitter Helper Name Role Phone Jennifer Sylvester MD Primary Care Provider [phone] [facility] [place], Pcp Primary Care Provider Unavailabl e Encounter Details Date Type Department Care Team Description 08/05/2021 [facility] Medical Records [address] [place] [address] Chris Lincoln MD Social History Tobacco Use [...] on filedocumented in this encounter Care Teams Flat Knitter Helper Relationship Specialty Start Date End Date Jennifer Sylvester MD [address] [place] [address] [phone] PCP - General Internal Medicine 02/09/21 01/22/23 [facility], Pcp [address] [place] [address] 8[address] PCP - General Internal Medicine 01/23/23 documented as of this encounter
--- OUTSIDE RECORDS SUMMARY | 2025-02-15 10:04 | XMS_ITS | Encounter Summary ---
Author Organization [facility] Address [address] [place] [address] Care Team Providers Care Full Stack Php Developer Name Role Phone Lavell Marcos MD Primary Care Provider [phone] Jennifer Sylvester MD Primary Care Provider [phone] [facility], Pcp Primary Care Provider Unavailabl e Encounter Details Date Type Department Care Team Description 03/04/2013 Linotype Machinist Apprentice Report Medical Records [address] [place] [address] Eduardo Lino MD Social History Tobacco Use [...] on filedocumented in this encounter Care Teams Full Stack Php Developer Relationship Specialty Start Date End Date Lavell Marcos MD [address] [place] [address] PCP - General 04/06/07 02/08/21 Jennifer Sylvester MD [address] [place] [address] 46298 PCP - General Internal Medicine 02/09/21 01/22/23 Jarrod, Joe [address] [place] [address] 21847 PCP - General Internal Medicine 01/23/23 documented as of this encounter
--- OUTSIDE RECORDS SUMMARY | 2025-02-15 10:04 | XMS_ITS | Encounter Summary ---
Author Organization [facility] Address [address] [place] [address] Care Team Providers Care Assembler Clip On Sunglasses Name Role Phone Lavell Marcos MD Primary Care Provider [phone] Jennifer Sylvester MD Primary Care Provider [phone] [facility] Pcp [facility] Encounter Details Date Type Department Care Team Description 10/14/2016 Pt. Non Urgent Medic al Question Gastroenterology - [address] [address] Roger Erazo MD Social History Tobacco Use [...] filedocumented in this encounter Care Teams Assembler Clip On Sunglasses Relationship Specialty Start Date End Date Lavell Marcos MD [address] [place] [address] 34833 PCP - General 04/06/07 02/08/21 Jennifer Sylvester MD [address] [place] [address] 85055 PCP - General Internal Medicine 02/09/21 01/22/23 [facility], [address] [address] PCP - General Internal Medicine 01/23/23 documented as of this encounter
--- OUTSIDE RECORDS SUMMARY | 2025-02-15 10:04 | XMS_ITS | Encounter Summary ---
Author Organization [facility] Address [address] [place] [address] Care Team Providers Care Legal Transcriber Name Role Phone Lavell Marcos MD Primary Care Provider Jennifer Sylvester MD Primary Care Provider [phone] [facility], Pcp Primary Care Provider Unavailabl e Encounter Details Date Type Department Care Team Description 05/13/2014 Zinc Chloride Operator Report Medical Records [address] [place] [address] 11684 Eduardo Lino MD Social History Tobacco Use [...] filedocumented in this encounter Care Teams Legal Transcriber Relationship Specialty Start Date End Date Lavell Marcos MD [address] [place] [address] 08223 PCP - General 04/06/07 02/08/21 Jennifer Sylvester MD [address] [place] [address] 40532 PCP - General Internal Medicine 02/09/21 01/22/23 [facility], Pcp [address] [place] [address] 15127 PCP - General Internal Medicine 01/23/23 documented as of this encounter
--- OUTSIDE RECORDS SUMMARY | 2025-02-15 10:04 | XMS_ITS | Encounter Summary ---
Author Organization [facility] Address [address] [place] [address] Care Team Providers Care Weatherization Specialist Name Role Phone Lavell Marcos MD Primary Care Provider [phone] Jennifer Sylvester MD Primary Care Provider [phone] [facility], Pcp Primary Care Provider Unavailabl e Encounter Details Date Type Department Care Team Description 02/05/2013 Batch Records Clerk Report Medical Records [address] [place] [address] Eduardo Lino MD Social History Tobacco [...] on filedocumented in this encounter Care Teams Weatherization Specialist Relationship Specialty Start Date End Date Lavell Marcos MD [address] [place] [address]276 PCP - General 04/06/07 02/08/21 Jennifer Sylvester MD [address] [place] [address] 75321 PCP - General Internal Medicine 02/09/21 01/22/23 [facility], Pcp [address] [place] [address] 67353 PCP - General Internal Medicine 01/23/23 documented as of this encounter
--- OUTSIDE RECORDS SUMMARY | 2025-02-15 10:04 | XMS_ITS | Encounter Summary ---
Author Organization [facility] Address [address] [place] [address] Care Team Providers Care Senior Outside Sales Representative Name Role Phone Lavell Marcos MD Primary Care Provider Jennifer Sylvester MD Primary Care Provider [phone] On License Of [facility], Pcp Primary Care Provider Unavailabl e Reason for Visit * Reason Onset Date Comments Orders Call 11/17/2013 Encounter Details Date Type Department Care Team Description 11/17/2013 Telephone Adult Medicine [facility] [address] [place] [address] Lavell Marcos MD [address] [place] [address] 10260 Orders Call Social History Tobacco Use Types [...] (pneumococcus) documented in this encounter Care Teams Senior Outside Sales Representative Relationship Specialty Start Date End Date Lavell Marcos MD [address] [place] [address] 71259 PCP - General 04/06/07 02/08/21 Jennifer Sylvester MD [address] [place] [address] 54309 PCP - General Internal Medicine 02/09/21 01/22/23 On License Of [facility], [address] [address] PCP - General Internal Medicine 01/23/23 documented as of this encounter
--- OUTSIDE RECORDS SUMMARY | 2025-02-15 10:04 | XMS_ITS | Encounter Summary ---
Author Organization [facility] Address [address] [place] [address] Care Team Providers Care Hospice Team Lead Name Role Phone Lavell Marcos MD Primary Care Provider [phone] Jennifer Sylvester MD Primary Care Provider [phone] [facility], Pcp Primary Care Provider Unavailabl e Encounter Details Date Type Department Care Team Description 06/15/2013 On Site Services Specialist Report Medical Records [address] [place] [address] Eduardo Lino MD Social History Tobacco Use [...] on filedocumented in this encounter Care Teams Hospice Team Lead Relationship Specialty Start Date End Date Lavell Marcos MD [address] [place] [address]188 PCP - General 04/06/07 02/08/21 Jennifer Sylvester MD [address] [place] [address] 45836 PCP - General Internal Medicine 02/09/21 01/22/23 Jarrod, Joe [address] [place] [address] 31316 PCP - General Internal Medicine 01/23/23 documented as of this encounter
--- OUTSIDE RECORDS SUMMARY | 2025-02-15 10:04 | XMS_ITS | Encounter Summary ---
Author Organization [facility] Address [address] [place] [address] Care Team Providers Care Topographical Engineer Name Role Phone Lavell Marcos MD Primary Care Provider [phone] Jennifer Sylvester MD Primary Care Provider [phone] [facility], Pcp Primary Care Provider Unavailabl e Reason for Visit * Reason Onset Date Comments Error 08/05/2019 Encounter Details Date Type Department Care Team Description 08/05/2019 Telephone Adult Medicine [address] [address] Lavell Marcos MD [address] [place] [address] [phone] Error Social History Tobacco Use Types Packs/Day Years [...] on filedocumented in this encounter Care Teams Topographical Engineer Relationship Specialty Start Date End Date Lavell Marcos MD [address] [place] [address] [phone] PCP - General 04/06/07 02/08/21 Jennifer Sylvester MD [address] [place] [address] [phone] PCP - General Internal Medicine 02/09/21 01/22/23 [facility], Pcp [address] [place] [address] PCP - General Internal Medicine 01/23/23 documented as of this encounter
--- OUTSIDE RECORDS SUMMARY | 2025-02-15 10:04 | XMS_ITS | Encounter Summary ---
Author Organization [facility] Address [address] [place] [address] Care Team Providers Care Maintenance Aide Name Role Phone Lavell Marcos MD Primary Care Provider [phone] Jennifer Sylvester MD Primary Care Provider [phone] [facility], Pcp Primary Care Provider Unavailabl e Encounter Details Date Type Department Care Team Description 01/06/2020 Manager System Report Medical Records [address] [place] [address] Johnna Serna MD Social History Tobacco Use [...] on filedocumented in this encounter Care Teams Maintenance Aide Relationship Specialty Start Date End Date Lavell Marcos MD [address] [place] [address] 76802 PCP - General 04/06/07 02/08/21 Jennifer Sylvester MD [address] [place] [address] 73286 PCP - General Internal Medicine 02/09/21 01/22/23 [facility], Pcp [address] [place] [address] 8[address]78 PCP - General Internal Medicine 01/23/23 documented as of this encounter
--- OUTSIDE RECORDS SUMMARY | 2025-02-15 10:04 | XMS_ITS | Encounter Summary ---
Author Organization [facility] Address [address] [place] [address] Care Team Providers Care Retail Director Name Role Phone Lavell Marcos MD Primary Care Provider [phone] eJnnifer Sylvester MD Primary Care Provider [phone] [facility], Pcp Primary Care Provider Unavailabl e Encounter Details Date Type Department Care Team Description 11/15/2011 Hospital Medical Records [address] [place] [address] Lakia Enriquez, [address] [address] Social History Tobacco Use Types Packs/Day Years [...] on filedocumented in this encounter Care Teams Retail Director Relationship Specialty Start Date End Date Lavell Marcos MD [address] [place] [address] PCP - General 04/06/07 02/08/21 Jennifer Sylvester MD [address] [place] [address] 75959 PCP - General Internal Medicine 02/09/21 01/22/23 [facility], Pcp [address] [place] [address] 31356 PCP - General Internal Medicine 01/23/23 documented as of this encounter
--- OUTSIDE RECORDS SUMMARY | 2025-02-15 10:04 | XMS_ITS | Encounter Summary ---
Author Organization [facility] Address [address] [place] [address] Care Team Providers Care Naval Aircrewman Name Role Phone Lavell Marcos MD Primary Care Provider [phone] Jennifer Sylvester MD Primary Care Provider [phone] [facility], Pcp Primary Care Provider Unavailabl e Encounter Details Date Type Department Care Team Description 03/26/2019 Sales Representative Education Courses Report Medical Records [address] [place] [address] Penelope Geronimo MD [address] [place] [address] Social History Tobacco Use Types Packs/Day Years [...] on filedocumented in this encounter Care Teams Naval Aircrewman Relationship Specialty Start Date End Date Lavell Marcos MD [address] [place] [address]08 PCP - General 04/06/07 02/08/21 Jennifer Sylvester MD [address] [place] [address] 51723 PCP - General Internal Medicine 02/09/21 01/22/[address] [address] PCP - General Internal Medicine 01/23/23 documented as of this encounter
--- OUTSIDE RECORDS SUMMARY | 2025-02-15 10:04 | XMS_ITS | Encounter Summary ---
Author Organization [facility] Address [address] [place] [address] Care Team Providers Care Cricket Coach Name Role Phone Lavell Marcos MD Primary Care Provider Jennifer Sylvester MD Primary Care Provider [phone] [facility], Pcp Primary Care Provider Unavailabl e Encounter Details Date Type Department Care Team Description 09/15/2019 Senior Electronics Design Engineer Report Medical Records [address] [place] [address] 34705 Rafat Gregorio MD Social History Tobacco Use [...] on filedocumented in this encounter Care Teams Cricket Coach Relationship Specialty Start Date End Date Lavell Marcos MD [address] [place] [address] 61378 PCP - General 04/06/07 02/08/21 Jennifer Sylvester MD [address] [place] [address] 36263 PCP - General Internal Medicine 02/09/21 01/22/23 [facility], Pcp [address] [place] [address] 70016 PCP - General Internal Medicine 01/23/23 documented as of this encounter
--- OUTSIDE RECORDS SUMMARY | 2025-02-15 10:04 | XMS_ITS | Encounter Summary ---
Author Organization [facility] Address [address] [place] [address] Care Team Providers Care Enamel Machine Operator Name Role Phone Lavell Marcos MD Primary Care Provider [phone] Jennifer Sylvester MD Primary Care Provider [phone] [facility], Pcp [facility] Encounter Details Date Type Department Care Team Description 03/05/2019 Loaf Counter Report Medical Records [address] [place] [address] 02671 Isai Patel, PAYossiC Social History Tobacco Use [...] on filedocumented in this encounter Care Teams Enamel Machine Operator Relationship Specialty Start Date End Date Lavell Marcos MD [address] [place] [address] 47320 PCP - General 04/06/07 02/08/21 Jennifer Sylvester MD [address] [place] [address] 92738 PCP - General Internal Medicine 02/09/21 01/22/23 [facility], Pcp [address] [place] [address] 72256 PCP - General Internal Medicine 01/23/23 documented as of this encounter
--- OUTSIDE RECORDS SUMMARY | 2025-02-15 10:04 | XMS_ITS | Encounter Summary ---
Author Organization [facility] Address [address] [place] [address] Care Team Providers Care Generator Technician Name Role Phone Lavell Marcos MD Primary Care Provider [phone] Jennifer Sylvester MD Primary Care Provider [phone] [facility], Pcp Primary Care Provider Unavailabl e Encounter Details Date Type Department Care Team Description 09/12/2017 Metal Rolling Mill Operator Report Medical Records [address] [place] [address] Penelope Geronimo MD [address] [place] [address] 57581 Social History Tobacco Use Types Packs/Day Years [...] on filedocumented in this encounter Care Teams Generator Technician Relationship Specialty Start Date End Date Lavell Marcos MD [address] [place] [address] 30704 PCP - General 04/06/07 02/08/21 Jennifer Sylvester MD [address] [place] [address] 05170 PCP - General Internal Medicine 02/09/21 01/22/[address] [address] PCP - General Internal Medicine 01/23/23 documented as of this encounter
--- OUTSIDE RECORDS SUMMARY | 2025-02-15 10:04 | XMS_ITS | Encounter Summary ---
Author Organization [facility] Address [address] [place] [address] Care Team Providers Care Dye Blender Name Role Phone Lavell Marcos MD Primary Care Provider [phone] Jennifer Sylvester MD Primary Care Provider [phone] [facility], Pcp [facility] Encounter Details Date Type Department Care Team Description 11/30/2013 Pt. Non Urgent Medical Question Adult Medicine [facility] [address] [place] [address] 20293 Radha Alarcon PA-C [address] [place] [address] 44585 Social History Tobacco Use Types Packs/Day Years [...] on filedocumented in this encounter Care Teams Dye Blender Relationship Specialty Start Date End Date Lavell Marcos MD [address] [place] [address] [phone] PCP - General 04/06/07 02/08/21 Jennifer Sylvester MD [address] [place] [address] 23113 PCP - General Internal Medicine 02/09/21 01/22/[address] [address] PCP - General Internal Medicine 01/23/23 documented as of this encounter
--- OUTSIDE RECORDS SUMMARY | 2025-02-15 10:04 | XMS_ITS | Encounter Summary ---
Author Organization [facility] Address [address] [place] [address] Care Team Providers Care Recreation Facilities Supervisor Name Role Phone Lavell Marcos MD Primary Care Provider Jennifer Sylvester MD Primary Care Provider [phone] [facility], Pcp Primary Care Provider Unavailabl e Encounter Details Date Type Department Care Team Description 06/25/2019 Deputy Commonwealth'S Attorney Report Medical Records [address] [place] [address] 37077 Raj Hardwick MD Social History Tobacco Use [...] on filedocumented in this encounter Care Teams Recreation Facilities Supervisor Relationship Specialty Start Date End Date Lavell Marcos MD [address] [place] [address] 11418 PCP - General 04/06/07 02/08/21 Jennifer Sylvester MD [address] [place] [address] 49090 PCP - General Internal Medicine 02/09/21 01/22/23 [facility], Pcp [address] [place] [address] 47848 PCP - General Internal Medicine 01/23/23 documented as of this encounter
--- OUTSIDE RECORDS SUMMARY | 2025-02-15 10:04 | XMS_ITS | Encounter Summary ---
Author Organization [facility] Address [address] [place] [address] Care Team Providers Care Blood Donor Recruiter Name Role Phone Lavell Marcos MD Primary Care Provider [phone] Jennifer Sylvester MD Primary Care Provider [phone] [facility], Pcp Primary Care Provider Unavailabl e Encounter Details Date Type Department Care Team Description 11/10/2012 Cloth Finishing Range Operator Report Medical Records [address] [place] [address] 16666 Micheal Larsen Social History Tobacco Use Types [...] on filedocumented in this encounter Care Teams Blood Donor Recruiter Relationship Specialty Start Date End Date Lavell Marcos MD [address] [place] [address] [phone] PCP - General 04/06/07 02/08/21 Jennifer Sylvester MD [address] [place] [address] [phone] PCP - General Internal Medicine 02/09/21 01/22/23 [facility], Pcp [address] [place] [address] 07875 PCP - General Internal Medicine 01/23/23 documented as of this encounter
--- OUTSIDE RECORDS SUMMARY | 2025-02-15 10:04 | XMS_ITS | Encounter Summary ---
Author Organization [facility] [place] [facility] Address [address] [place] [address] Care Team Providers Care Preparation Room Manager Name Role Phone Lavell Marcos MD Primary Care Provider [phone] Jennifer Sylvester MD Primary Care Provider [phone] [facility], Pcp Primary Care [facility] Encounter Details Date Type Department Care Team Description 11/15/2019 Isotope Hydrologist Report Medical Records [address] [place] [address] 57[address] Bib Sandoval MD Social History Tobacco Use [...] on filedocumented in this encounter Care Teams Preparation Room Manager Relationship Specialty Start Date End Date Lavell Marcos MD [address] [place] [address] 05232 PCP - General 04/06/07 02/08/21 Jennifer Sylvester MD [address] [place] [address] 31683 PCP - General Internal Medicine 02/09/21 01/22/23 [facility], Pcp [address] [place] [address] 57595 PCP - General Internal Medicine 01/23/23 documented as of this encounter
--- OUTSIDE RECORDS SUMMARY | 2025-02-15 10:04 | XMS_ITS | Encounter Summary ---
Author Organization [facility] Address [address] [place] [address] Care Team Providers Care Hog Scalder Name Role Phone Lavell Marcos MD Primary Care Provider [phone] Jennifer Sylvester MD Primary Care Provider [phone] [facility], Pcp Primary Care [facility] Encounter Details Date Type Department Care Team Description 04/21/2014 Wellness Trainer Report Medical Records [address] [place] [address] 88841 Bib Sandoval MD Social History Tobacco Use [...] on filedocumented in this encounter Care Teams Hog Scalder Relationship Specialty Start Date End Date Lavell Marcos MD [address] [place] [address] 67475 PCP - General 04/06/07 02/08/21 Jennifer Sylvester MD [address] [place] [address] 17941 PCP - General Internal Medicine 02/09/21 01/22/23 [facility], Pcp [address] [place] [address] 59781 PCP - General Internal Medicine 01/23/23 documented as of this encounter
--- OUTSIDE RECORDS SUMMARY | 2025-02-15 10:04 | XMS_ITS | Encounter Summary ---
Author Organization [facility] Address [address] [place] [address] Care Team Providers Care Paper Inserter Name Role Phone Lavell Marcos MD Primary Care Provider [phone] Jennifer Sylvester MD Primary Care Provider [phone] [facility], Pcp Primary Care Provider Unavailabl e Encounter Details Date Type Department Care Team Description [address] Manager Report Medical Records [address] [place] [address] 23655 Reji White MD [address] [place] [address] 42401 Social History Tobacco Use Types Packs/Day Years [...] on filedocumented in this encounter Care Teams Paper Inserter Relationship Specialty Start Date End Date Lavell Marcos MD [address] [place] [address] 81143 PCP - General 04/06/07 02/08/21 Jennifer Sylvester MD [address] [place] [address] 76276 PCP - General Internal Medicine 02/09/21 01/22/23 [facility], Pcp [address] [place] [address] 14374 PCP - General Internal Medicine 01/23/23 documented as of this encounter
--- OUTSIDE RECORDS SUMMARY | 2025-02-15 10:04 | XMS_ITS | Encounter Summary ---
Author Organization [facility] Address [address] [place] [address] Care Team Providers Care Lidar Technician Name Role Phone Lavell Marcos MD Primary Care Provider + [phone] Jennifer Sylvester MD Primary Care Provider [phone] [facility], Pcp Primary Care Provider Unavailabl e Encounter Details Date Type Department Care Team Description 12/27/2016 Orders Only Medical Records [address] [place] [address] 23401 Lavell Marcos MD [address] [place] [address] 56044 Social History Tobacco Use Types Packs/Day Years [...] on filedocumented in this encounter Care Teams Lidar Technician Relationship Specialty Start Date End Date Lavell Marcos MD [address] [place] [address] 38780 PCP - General 04/06/07 02/08/21 Jennifer Sylvester MD [address] [place] [address] 43330 PCP - General Internal Medicine 02/09/21 01/22/23 [facility], Pcp [address] [place] [address] 62102 PCP - General Internal Medicine 01/23/23 documented as of this encounter
--- OUTSIDE RECORDS SUMMARY | 2025-02-15 10:04 | XMS_ITS | Encounter Summary ---
Author Organization [facility] Address [address] [place] [address] Care Team Providers Care Pr Specialist Name Role Phone Lavell Marcos MD Primary Care Provider [phone] Jennifer Sylvester MD Primary Care Provider [phone] [facility], Pcp Primary Care Provider Unavailabl e Encounter Details Date Type Department Care Team Description 10/12/2019 Old Medical Records Medical Records [address] [place] [address] 85828 Abstract, Provider Social History Tobacco Use Types [...] on filedocumented in this encounter Care Teams Pr Specialist Relationship Specialty Start Date End Date Lavell Marcos MD [address] [place] [address] 88078 PCP - General 04/06/07 02/08/21 Jennifer Sylvester MD [address] [place] [address] [phone] PCP - General Internal Medicine 02/09/21 01/22/23 [facility], Pcp [address] [place] [address] 27155 PCP - General Internal Medicine 01/23/23 documented as of this encounter
--- OUTSIDE RECORDS SUMMARY | 2025-02-15 10:04 | XMS_ITS | Encounter Summary ---
Author Organization [facility] Address [address] [place] [address] Care Team Providers Care Production Planner Name Role Phone Lavell Marcos MD Primary Care Provider [phone] Jennifer Sylvester MD Primary Care Provider [phone] [facility], Pcp Primary Care Provider Unavailabl e Encounter Details Date Type Department Care Team Description 02/04/2019 Filleter Report Medical Records [address] [place] [address] 49160 Raj Hardwick MD Social History Tobacco Use [...] filedocumented in this encounter Care Teams Production Planner Relationship Specialty Start Date End Date Lavell Marcos MD [address] [place] [address] 14823 PCP - General 04/06/07 02/08/21 Jennifer Sylvester MD [address] [place] [address] 63346 PCP - General Internal Medicine 02/09/21 01/22/23 [facility], Pcp [address] [place] [address] 48150 PCP - General Internal Medicine 01/23/23 documented as of this encounter
--- OUTSIDE RECORDS SUMMARY | 2025-02-15 10:04 | XMS_ITS | Encounter Summary ---
Author Organization [facility] Address [address] [place] [address] Care Team Providers Care Costume Specialist Name Role Phone Lavell Marcos MD Primary Care Provider [phone] Jennifer Sylvester MD Primary Care Provider [phone] [facility], Pcp Primary Care Provider Unavailabl e Reason for Visit * Reason Onset Date Comments Echocardiogram 09/08/2012 Encounter Details Date Type Department Care Team Description 09/08/2012 Telephone Adult Medicine [address] [phone] Roselyn Tavarez PA-C Echocardiogram Social History Tobacco [...] for the echocardiogram has been faxed to [address] to be done documented in this encounter Plan of Treatment Not on file documented as of this encounter Visit Diagnoses Not on filedocumented in this encounter Care Teams Costume Specialist Relationship Specialty Start Date End Date Lavell Marcos MD [address] [place] [address] [phone] PCP - General 04/06/07 02/08/21 Jennifer Sylvester MD [address] [place] [address] 01020 PCP - General Internal Medicine 02/09/21 01/22/23 [facility], Pcp [address] [place] [address] 30892 PCP - General Internal Medicine 01/23/23 documented as of this encounter
--- OUTSIDE RECORDS SUMMARY | 2025-02-15 10:04 | XMS_ITS | Encounter Summary ---
Author Organization [facility] Address [address] [place] [address] Care Team Providers Care Senior Sales Consultant Name Role Phone Lavell Marcos MD Primary Care Provider [phone] Jennifer Sylvester MD Primary Care Provider [phone] [facility], Pcp Primary Care Provider Unavailabl e Encounter Details Date Type Department Care Team Description 01/16/2018 Washing Machine Operator Report Medical Records [address] [place] [address] 12410 Reji White MD [address] [place] [address] 99140 Social History Tobacco Use Types Packs/Day Years [...] filedocumented in this encounter Care Teams Senior Sales Consultant Relationship Specialty Start Date End Date Lavell Marcos MD [address] [place] [address] 07773 PCP - General 04/06/07 02/08/21 Jennifer Sylvester MD [address] [place] [address] 03642 PCP - General Internal Medicine 02/09/21 01/22/23 [facility], Pcp [address] [place] [address] 39635 PCP - General Internal Medicine 01/23/23 documented as of this encounter
--- OUTSIDE RECORDS SUMMARY | 2025-02-15 10:04 | XMS_ITS | Encounter Summary ---
Author Organization [facility] Address [address] [place] [address] Care Team Providers Care Pressurizer Name Role Phone Lavell Marcos MD Primary Care Provider [phone] Jennifer Sylvester MD Primary Care Provider [phone] [facility], Pcp Primary Care Provider Unavailabl e Encounter Details Date Type Department Care Team Description 08/06/2017 Business Doc Medical Records [address] [place] [address] 82996 Abstract, Provider Social History Tobacco Use Types [...] on filedocumented in this encounter Care Teams Pressurizer Relationship Specialty Start Date End Date Lavell Marcos MD [address] [place] [address] 77990 PCP - General 04/06/07 02/08/21 Jennifer Sylvester MD [address] [place] [address] [phone] PCP - General Internal Medicine 02/09/21 01/22/23 [facility], Pcp [address] [place] [address] 20231 PCP - General Internal Medicine 01/23/23 documented as of this encounter
--- OUTSIDE RECORDS SUMMARY | 2025-02-15 10:04 | XMS_ITS | Encounter Summary ---
Author Organization [facility] Address [address] [place] [address] Care Team Providers Care Manager Internet Name Role Phone Lavell Marcos MD Primary Care Provider [phone] Jennifer Sylvester MD Primary Care Provider [phone] [facility], Pcp Primary Care Provider Unavailabl e Encounter Details Date Type Department Care Team Description 02/23/2013 Library Consultant Report Medical Records [address] [place] [address] 76783 Micheal Larsen Social History Tobacco Use Types [...] filedocumented in this encounter Care Teams Manager Internet Relationship Specialty Start Date End Date Lavell Marcos MD [address] [place] [address] [phone] PCP - General 04/06/07 02/08/21 Jennifer Sylvester MD [address] [place] [address] [phone] PCP - General Internal Medicine 02/09/21 01/22/23 [facility], Pcp [address] [place] [address] 90171 PCP - General Internal Medicine 01/23/23 documented as of this encounter
--- OUTSIDE RECORDS SUMMARY | 2025-02-15 10:04 | XMS_ITS | Encounter Summary ---
Author Organization [facility] Address [address] [place] [address] Care Team Providers Care Supervisor Spinning Name Role Phone Lavell Marcos MD Primary Care Provider Jennifer Sylvester MD Primary Care Provider [phone] [facility], Pcp Primary Care Provider Unavailabl e Encounter Details Date Type Department Care Team Description 09/02/2019 Airplane Inspector Report Medical Records [address] [place] [address] 18388 Augie Braga MD Social History Tobacco Use [...] filedocumented in this encounter Care Teams Supervisor Spinning Relationship Specialty Start Date End Date Lavell Marcos MD [address] [place] [address] 26805 PCP - General 04/06/07 02/08/21 Jennifer Sylvester MD [address] [place] [address] 30274 PCP - General Internal Medicine 02/09/21 01/22/23 [facility], Pcp [address] [place] [address] 88001 PCP - General Internal Medicine 01/23/23 documented as of this encounter
--- OUTSIDE RECORDS SUMMARY | 2025-02-15 10:04 | XMS_ITS | Encounter Summary ---
Author Organization [facility] Address [address] [place] [address] Care Team Providers Care Claims Supervisor Name Role Phone Lavell Marcos MD Primary Care Provider [phone] Jennifer Sylvester MD Primary Care Provider [phone] [facility], Pcp Primary Care Provider Unavailabl e Encounter Details Date Type Department Care Team Description 05/26/2019 Release of Information Medical Records [address] [place], [place] [id number] Abstract, Provider Social History Tobacco Use Types [...] on filedocumented in this encounter Care Teams Claims Supervisor Relationship Specialty Start Date End Date Lavell Marcos MD [address] [place] [address] 26146 PCP - General 04/06/07 02/08/21 Jennifer Sylvester MD [address] [place] [address] [phone] PCP - General Internal Medicine 02/09/21 01/22/23 [facility], Pcp [address] [place] [address] 66836 PCP - General Internal Medicine 01/23/23 documented as of this encounter
--- OUTSIDE RECORDS SUMMARY | 2025-02-15 10:04 | XMS_ITS | Encounter Summary ---
Author Organization [facility] Address [address] [place] [address] Care Team Providers Care Supervisor Pairing And Inspecting Name Role Phone Lavell Marcos MD Primary Care Provider [phone] Jennifer Sylvester MD Primary Care Provider [phone] [facility], Pcp Primary Care Provider Unavailabl e Encounter Details Date Type Department Care Team Description 01/06/2013 Principal Mechanical Engineer Report Medical Records [address] [place] [address] 96548 Eduardo Lino MD Social History Tobacco Use [...] filedocumented in this encounter Care Teams Supervisor Pairing And Inspecting Relationship Specialty Start Date End Date Lavell Marcos MD [address] [place] [address] 83707 PCP - General 04/06/07 02/08/21 Jennifer Sylvester MD [address] [place] [address] 68462 PCP - General Internal Medicine 02/09/21 01/22/23 [facility], Pcp [address] [place] [address] 43194 PCP - General Internal Medicine 01/23/23 documented as of this encounter
--- OUTSIDE RECORDS SUMMARY | 2025-02-15 10:05 | XMS_ITS | Clinical Summary ---
Author Organization [facility] Address [address] [place] [address] Care Team Providers Care Hemodialysis Rn Name Role Phone [facility], Pcp Primary Care [...] Dispensed Refills Start Date End Date Status ILXHFGQWWE-LXXY-YAR FEINE 50-325-40 MG OR TABS (FIORICET) per [...] on Friday, Wednesdays and Fridays 0 Active [id number]-C INC OR Take 1 Tab by mouth [...] left lobe of the liver, ultrasound examination, [facility], 12/12/2005. 5 mm angiomyolipomas in the [...] VACCINE Completed 06/22/2015, 11/17/19 14 Care Teams Hemodialysis Rn Relationship Specialty Start Date End Date [facility], Pcp PCP - General Internal Medicine 01/23/23
--- OUTSIDE RECORDS SUMMARY | 2025-02-15 10:05 | XMS_ITS | Encounter Summary ---
Author Organization [facility] Address [address] [place] [address] Care Team Providers Care Supervisor Kosher Dietary Service Name Role Phone Lavell Marcos MD Primary Care Provider Jennifer Sylvester MD Primary Care Provider [phone] [facility], Pcp Primary Care Provider Unavailabl e Encounter Details Date Type Department Care Team Description 12/04/2015 SECURITY SYSTEM SALES CONSULTANT/Mass[employer] Report Medical Records [address] [place], [place] [id number] Abstract, Provider Social History Tobacco Use Types [...] filedocumented in this encounter Care Teams Supervisor Kosher Dietary Service Relationship Specialty Start Date End Date Lavell Marcos MD [address] [place] [address] 76505 PCP - General 04/06/07 02/08/21 Jennifer Sylvester MD [address] [place] [address] 02023 PCP - General Internal Medicine 02/09/21 01/22/23 [facility], Pcp [address] [place] [address] 66897 PCP - General Internal Medicine 01/23/23 documented as of this encounter
--- OUTSIDE RECORDS SUMMARY | 2025-02-15 10:05 | XMS_ITS | Encounter Summary ---
Author Organization [facility] Address [address] [place] [address] Care Team Providers Care Fur Dresser Name Role Phone Lavell Marcos MD Primary Care Provider [phone] Jennifer Sylvester MD Primary Care Provider [phone] [facility], Pcp Primary Care Provider [facility] Encounter Details Date Type Department Care Team Description 02/06/2016 Convention Manager Report Medical Records [address] [place] [address] 42336 Bib Sandoval MD Social History Tobacco Use [...] on filedocumented in this encounter Care Teams Fur Dresser Relationship Specialty Start Date End Date Lavell Marcos MD [address] [place] [address] 86195 PCP - General 04/06/07 02/08/21 Jennifer Sylvester MD [address] [place] [address] 38531 PCP - General Internal Medicine 02/09/21 01/22/23 [facility], Pcp [address] [place] [address] 67948 PCP - General Internal Medicine 01/23/23 documented as of this encounter
--- OUTSIDE RECORDS SUMMARY | 2025-02-15 10:05 | XMS_ITS | Encounter Summary ---
Author Organization [facility] Address [address] [place] [address] Care Team Providers Care Microsoft Application Developer Name Role Phone Jennifer Sylvester MD Primary Care Provider [phone] [facility], Pcp Primary Care Provider [facility] Encounter Details Date Type Department Care Team Description 06/11/2022 Bar Assistant Report Medical Records [address] [place] [id number] Bib Sandoval MD Social History Tobacco Use [...] on filedocumented in this encounter Care Teams Microsoft Application Developer Relationship Specialty Start Date End Date Jennifer Sylvester MD [address] [place] [address] [phone] PCP - General Internal Medicine 02/09/21 01/22/23 [facility], Pcp [address] [place] [phone] PCP - General Internal Medicine 01/23/23 documented as of this encounter
--- OUTSIDE RECORDS SUMMARY | 2025-02-15 10:05 | XMS_ITS | Encounter Summary ---
Author Organization [facility] Address [address] [place] [address] Care Team Providers Care Service Desk Team Lead Name Role Phone Lavell Marcos MD Primary Care Provider [phone] Jennifer Sylvester MD Primary Care Provider [phone] [facility], Pcp Primary Care Provider Unavailabl e Encounter Details Date Type Department Care Team Description 01/11/2016 Telephone Adult Medicine [address] [address] Lavell Marcos MD [address] [place] [id number] Social History Tobacco Use Types Packs/Day Years [...] on filedocumented in this encounter Care Teams Service Desk Team Lead Relationship Specialty Start Date End Date Lavell Marcos MD [address] [place] [address] [phone] PCP - General 04/06/07 02/08/21 Jennifer Sylvester MD [address] [place] [phone] PCP - General Internal Medicine 02/09/21 01/22/23 [facility], Pcp [address] [place] [address] [phone] PCP - General Internal Medicine 01/23/23 documented as of this encounter
--- OUTSIDE RECORDS SUMMARY | 2025-02-15 10:05 | XMS_ITS | Encounter Summary ---
Author Organization [facility] Address [address] [place] [address] Care Team Providers Care Interlocking Installer Name Role Phone Jennifer Sylvester MD Primary Care Provider [phone] [facility], Pcp Primary Care Provider Unavailabl e Encounter Details Date Type Department Care Team Description 04/05/2022 Child Abuse Worker Report Medical Records [address] [place] [phone] Nikunj Espinoza MD Social History Tobacco Use Types Packs/Day [...] on filedocumented in this encounter Care Teams Interlocking Installer Relationship Specialty Start Date End Date Jennifer Sylvester MD [address] [place] [address] [phone] PCP - General Internal Medicine 02/09/21 01/22/23 [facility], Pcp [address] [place] [id number] PCP - General Internal Medicine 01/23/23 documented as of this encounter
--- OUTSIDE RECORDS SUMMARY | 2025-02-15 10:05 | XMS_ITS | Encounter Summary ---
Author Organization [facility] Address [address] [place] [address] Care Team Providers Care Diamond Cleaver Name Role Phone Jennifer Sylvester MD Primary Care Provider [facility], Pcp Primary Care Provider Unavailabl e Encounter Details Date Type Department Care Team Description 08/15/2021 Grocery Carrier Report Medical Records [address] [place] [phone] Eduardo Lino MD Social History Tobacco Use [...] on filedocumented in this encounter Care Teams Diamond Cleaver Relationship Specialty Start Date End Date Jennifer Sylvester MD [address] [place] [address] [phone] PCP - General Internal Medicine 02/09/21 01/22/23 [facility], Pcp [address] [place] [phone] PCP - General Internal Medicine 01/23/23 documented as of this encounter
--- OUTSIDE RECORDS SUMMARY | 2025-02-15 10:05 | XMS_ITS | Encounter Summary ---
Author Organization [facility] Address [address] [place] [address] Care Team Providers Care Personal Consultant Name Role Phone Lavell Marcos MD Primary Care Provider [phone] Jennifer Sylvester MD Primary Care Provider [phone] [facility], Pcp Primary Care Provider Unavailabl e Encounter Details Date Type Department Care Team Description 02/25/2012 Counsel Report Medical Records [address] [place] [phone] Jinny Lainez NP Social History Tobacco Use [...] on filedocumented in this encounter Care Teams Personal Consultant Relationship Specialty Start Date End Date Lavell Marcos MD [address] [place] [phone] PCP - General 04/06/07 02/08/21 Jennifer Sylvester MD [address] [place] [address] [phone] PCP - General Internal Medicine 02/09/21 01/22/23 [facility], Pcp [address] [place] [phone] PCP - General Internal Medicine 01/23/23 documented as of this encounter
--- OUTSIDE RECORDS SUMMARY | 2025-02-15 10:05 | XMS_ITS | Encounter Summary ---
Author Organization [facility] Address [address] [place] [address] Care Team Providers Care Senior Product Consultant Name Role Phone Lavell Marcos MD Primary Care Provider [phone] Jennifer Sylvester MD Primary Care Provider [phone] [facility], Pcp Primary Care Provider Unavailabl e Encounter Details Date Type Department Care Team Description 08/29/2016 Release of Information Medical Records [address] [place], [place] [id number] Abstract, Provider Social History Tobacco Use Types [...] filedocumented in this encounter Care Teams Senior Product Consultant Relationship Specialty Start Date End Date Lavell Marcos MD [address] [place] [phone] PCP - General 04/06/07 02/08/21 Jennifer Sylvester MD [address] [place] [address] [phone] PCP - General Internal Medicine 02/09/21 01/22/23 [facility], Pcp [address] [place] [phone] PCP - General Internal Medicine 01/23/23 documented as of this encounter
--- OUTSIDE RECORDS SUMMARY | 2025-02-15 10:05 | XMS_ITS | Encounter Summary ---
Author Organization [facility] Address [address] [place] [address] Care Team Providers Care Cutting And Printing Machine Operator Name Role Phone Lavell Marcos MD Primary Care Provider [phone] Jennifer Sylvester MD Primary Care Provider [phone] [facility], Pcp Primary Care Provider Unavailabl e Reason for Visit * Reason Onset Date Comments Information Needed 04/22/2016 Encounter Details Date Type Department Care Team Description 04/22/2016 Telephone Adult Medicine [facility] [address] [place] [address] Lavell Marcos MD [address] [place] [phone] Information Needed Social History Tobacco Use Types [...] on filedocumented in this encounter Care Teams Cutting And Printing Machine Operator Relationship Specialty Start Date End Date Lavell Marcos MD [address] [place] [address] [phone] PCP - General 04/06/07 02/08/21 Jennifer Sylvester MD [address] [place] [address] [phone] PCP - General Internal Medicine 02/09/21 01/22/[address] [phone] PCP - General Internal Medicine 01/23/23 documented as of this encounter
--- OUTSIDE RECORDS SUMMARY | 2025-02-15 10:05 | XMS_ITS | Encounter Summary ---
Author Organization [facility] Address [address] [place] [address] Care Team Providers Care Sales Operations Name Role Phone [facility], Pcp Primary Care Provider Unavailabl e Encounter Details Date Type Department Care Team Description 03/16/2024 Transfer Records Medical Records [address] [place] [id number] Abstract, Provider Social History Tobacco Use Types [...] on filedocumented in this encounter Care Teams Sales Operations Relationship Specialty Start Date End Date [facility], Pcp PCP - General Internal Medicine 01/23/23 documented as of this encounter
== END 2025-02-15 09:16 | disposition home or self-care (01) ==
LOC: HO.NEURO 09:15
PROVIDERS: PCP Internal Medicine; Visit Provider Internal Medicine
DX: R20.0 Anesthesia of skin (principal)
CPT/HCPCS: 95885; 95909

== ENCOUNTER 2025-02-28 10:14 | Outpatient (REF) | payer MEDICARE, OTHER, SELFPAY ==
--- NOTE | 2025-02-28 11:09 | ECG_ITS ---
Test Reason : COPD Blood Pressure : */* mmHG Vent. Rate : 64 BPM Atrial Rate : 64 BPM P-R Int : 148 ms QRS Dur : 90 ms QT Int : 422 ms P-R-T Axes : 59 -24 -16 degrees QTcB Int : 435 ms Normal sinus rhythm ST & T wave abnormality, consider anterior ischemia Abnormal ECG When compared with ECG of 02-Feb-2025 12:54, No significant change was found Referred By: Eduardo Lino Electronically Signed By: Perfecto Dixon
[2025-02-28 11:33] LABS: MANUAL DIFF FLAG NO
[2025-02-28 12:18] LABS: Basophils Percent Auto 0.3 % (0-2); Eosinophils Absolute Auto 0.2 X10*3/uL (0.0-0.4); Eosinophils Percent Auto 1.9 % (0-4); Hematocrit 37.1 % (37.0-47.0); Hemoglobin 12.5 g/dl (12.0-16.0); Imm Gran Abs Auto 0.04 X10*3/uL (0.00-0.03); Imm Gran Pct Auto 0.4 % (0.0-0.4); Lymphocytes Absolute Auto 1.7 X10*3/uL (1.2-4.9); Lymphocytes Percent Auto 16.4 % (20-40); Mean Corpuscular HGB Conc 33.7 g/dl (31.0-35.0); Mean Platelet Volume 9.5 fL (9.4-12.3); Monocytes Percent Auto 9.6 % (2-11); Neutrophils Absolute Auto 7.4 x10*3/uL (2.0-8.3); Neutrophils Percent Auto 71.4 % (45-73); Platelet Count 238 X10*3/uL (160-400); Red Blood Count 4.17 X10*6/uL (4.20-5.50); Red Cell Distribution Width 13.2 % (11.0-16.0); White Blood Count 10.4 X10*3/uL (4.8-10.8)
[2025-02-28 12:23] LABS: Alanine Aminotransferase 18 U/L (0-31); Albumin Level 4.3 g/dL (3.5-5.0); Alkaline Phosphatase 84 U/L (39-117); Anion Gap 11 (12-20); Aspartate Amino Transferase 31 U/L (5-31); Bilirubin Total 0.8 mg/dL (0.0-1.0); Blood Urea Nitrogen 10 mg/dL (9-16); Calcium 9.5 mg/dL (8.4-10.2); Carbon Dioxide 29 mmol/L (22-29); Chloride 106 mmol/L (96-108); Cholesterol 127 mg/dL (<200); Estimated Glomerular Filt Rate > 60; Glucose Random 80 mg/dL (60-115); HDL Cholesterol 60 mg/dL (>40); LDL Cholesterol Calculated 47 mg/dL (<100); Potassium 3.5 mmol/L (3.3-5.1); Sodium 142 mmol/L (135-145); Total Protein 6.8 g/dL (6.5-8.0); Triglycerides 102 mg/dL (<150)
[2025-02-28 12:33] LABS: Free T4 (Free Thyroxine) 0.98 ng/dL (0.71-1.85); Thyroid Stimulating Hormone 0.55 uIU/mL (0.32-4.0)
[2025-02-28 12:52] LABS: Folate 10.9 ng/mL (> or = 4.0); Vitamin B12 287 pg/mL (200-900)
[2025-02-28 12:59] LABS: Appearance Urine Clear; Color Urine Yellow; Glucose Urine UA Negative (Negative); Leukocyte Esterase Urine Trace (Negative); Nitrite Urine Negative (Negative); UMIC TRIGGER UACC YES; Urine Blood Small (1+) (Negative); Urine Ketones Negative (Negative); Urine Protein 30 (1+) mg/dL (Neg-Trace)
[2025-02-28 13:19] LABS: Bacteria Urine None Seen (None Seen); Hyaline Casts Urine 0-2 /LPF (0-2); Squamous Epithelial Cell Urine 0-2 /HPF (0-2); WBC Urine 0-5 /HPF (0-5)
--- OUTSIDE RECORDS SUMMARY | 2025-02-28 13:21 | XMS_ITS | Referral Summary ---
Author Organization [facility] Address [address] [place] [address] Care Team Providers Care Bowling Alley Floors Installer Name Role Phone Abby Potter Primary Care Provider [phone] Encounters Date Type Department Care Team Description 12/14/2024 9:30 AM EST Clinical Support [facility] [address] [place] [phone] Candy Mixer: Deanna Miller LPN Age-related osteoporosis without current pathological fracture (Primary Dx) 12/01/2024 myChart Message [facility] [address] [place] [address] [phone] Candy Mixer: Carlos Diop MD Low potassium from Last [...] Info) Description 03/03/2025 9:30 AM EDT Follow-Up [facility] [address] [place] [address] Candy Mixer: Carlos Diop MD [address] [place] [address] 06/15/2025 9:00 AM EDT Clinical Support [facility] [address] [place] [address] Candy Mixer: Marlena Hurst Procedures * Due to [facility] law, this organization might not be sharing negative HIV tests. Procedure Name Priority Date/Time Associated Diagnosis Comments HM DEXA SCAN 10/31/2023 from Last 3 Months or Most Recently Relevant to Health Maintenance Results * Due to [facility] law, this organization might not be sharing negative HIV tests. * HM Dexa Scan (10/31/2023) Anatomical Region Laterality Modality Other 10/31/2023 us Onbase Scan [facility] Final Resu lt from Last 3 Months or Most Recently Relevant to Health Maintenance Insurance MEDICARE [facility] Care Teams Bowling Alley Floors Installer Relationship Specialty Start Date End Date Abby Potter [address] [facility] [place] [address] PCP - General Internal Medicine 04/14/24
--- OUTSIDE RECORDS SUMMARY | 2025-02-28 13:21 | XMS_ITS | Encounter Summary ---
Author Organization [facility] Address [address] [place] [address] Care Team Providers Care Olive Grader Name Role Phone TariqMarleeelidia Marc Primary Care Provider [phone] Reason for Visit * Reason Onset Date Comments PAC Patient Request Call Back 06/08/2024 Encounter Details Date Type Department Care Team (Late st Contact Info) Description 06/08/2024 Telephone [facility] Patient Access Center [address] [place] [address] Telephone Intake, Staff PAC Patient Request Call [...] for 9am. Patient can be reached at [phone]. Thank you - PAC documented in this encounter Plan of Treatment Upcoming Encounters Date Type Department Care Team (Late st Contact Info) Description 03/03/2025 9:30 AM EDT Follow-Up [facility]ology [facility] [address] [place] [address] Hospital Security Officer: Carols Diop MD [address] [place] [address] 06/15/2025 9:00 AM EDT Clinical Support [facility] [address] [place] [address] Hospital Security Officer: Marlena Hurst documented as of this encounter Visit Diagnoses Not on filedocumented in this encounter Care Teams Olive Grader Relationship Specialty Start Date End Date Abby Potter [address] [place] [address] [place] [address] PCP - General Internal Medicine 04/14/24 documented as of this encounter
--- OUTSIDE RECORDS SUMMARY | 2025-02-28 13:21 | XMS_ITS | Clinical Summary ---
Author Organization [facility] Address [address] [place] [address] Care Team Providers Care Chemistry Tutor Name Role Phone TariqAbby Monico Primary Care Provider [phone] Allergies Active Allergy Reactions Criticality Noted Date [...] Description 12/14/2024 9:30 AM EST Clinical Support [facility] [address] [place] [id number] Machine Assembler Supervisor: Deanna Miller LPN Age-related osteoporosis without current pathological fracture (Primary Dx) 12/01/2024 myChart Message [facility] [address] [place] [id number] Machine Assembler Supervisor: Carlos Diop MD Low potassium from [...] Info) Description 03/03/2025 9:30 AM EDT Follow-Up [facility] [address] [place] [id number] Machine Assembler Supervisor: Carlos Diop MD [address] [place] [address] [phone] 06/15/2025 9:00 AM EDT Clinical Support [facility] [address] [place] [id number] Machine Assembler Supervisor: Marlena Hurst Health Maintenance Due Date Last [...] complete this topic Procedures * Due to [place] state law, this organization might not be sharing negative HIV tests. Procedure Name Priority Date/Time Associated Diagnosis Comments HM DEXA SCAN 10/31/2023 from Last 3 Months or Most Recently Relevant to Health Maintenance Results * Due to [place] state law, this organization might not be sharing negative HIV tests. * Dexa Scan (10/31/2023) Anatomical Region Laterality Modality Other 10/31/2023 us Onbase Scan [facility] HEALTH MAINTENANCE Final Resu lt from Last 3 Months or Most Recently Relevant to Health Maintenance Insurance MEDICARE [facility] Care Teams Chemistry Tutor Relationship Specialty Start Date End Date Abby Potter [address] [place] [phone] [place] [address] PCP - General Internal Medicine 04/14/24
== END 2025-02-28 10:15 | disposition home or self-care (01) ==
LOC: HO.XRAY 10:14
PROVIDERS: PCP Internal Medicine; Visit Provider Hospitalist
DX: J44.9 Chronic obstructive pulmonary disease, unspecified (principal); M54.9 Dorsalgia, unspecified; J45.909 Unspecified asthma, uncomplicated; R07.9 Chest pain, unspecified; E78.00 Pure hypercholesterolemia, unspecified; E78.5 Hyperlipidemia, unspecified; R94.31 Abnormal electrocardiogram [ECG] [EKG]; R39.9 Unspecified symptoms and signs involving the genitourinary system
CPT/HCPCS: 36415; 80053; 80061; 81001; 81003; 82306; 82607; 82746; 84439; 84443; 85025; 93005; 99212

== ENCOUNTER 2025-02-28 10:14 | Outpatient (AMB) | payer MEDICARE, OTHER, SELFPAY ==
[2025-02-28 10:33] VITALS: BP 148/72; PULSE 74; O2SAT 98; BMI 21.1
--- NOTE | 2025-02-28 10:33 | A.OFFVIS_ITS ---
Vital Signs 02/28/25 10:33 Height 5 ft Weight 108 lb 0.424 oz BMI 21.1 BP 148/72 H Blood Pressure Location Rt brachial Position Sitting Pulse 74 Pulse Source Pulse Oximeter Pulse Oximetry (%) 98 Oxygen Delivery Method Room Air Intake Visit Reasons: Dyspnea Allergies naproxen [From NAPROSYN] Allergy (Severe, Verified 02/28/25 10:36) sensitivity niacin [From NIASPAN EXTENDED-RELEASE] Allergy (Severe, Verified 02/28/25 10:36) Rash clarithromycin [From BIAXIN] Allergy (Mild, Verified 02/28/25 10:36) sensitivity codeine [CODEINE] Allergy (Mild, Verified 02/28/25 10:36) Itching esomeprazole [From Nexium] Allergy (Mild, Verified 02/28/25 10:36) Hives fluconazole [From DIFLUCAN] Allergy (Mild, Verified 02/28/25 10:36) sensitivity gatifloxacin [From TEQUIN] Allergy (Mild, Verified 02/28/25 10:36) sensitivity hydrocodone [From Vicodin] Allergy (Mild, Verified 02/28/25 10:36) Rash levofloxacin [From Levaquin] Allergy (Mild, Verified 02/28/25 10:36) sensitivity oxycodone [From Percocet] Allergy (Mild, Verified 02/28/25 10:36) Itching quinidine [QUINIDINE] Allergy (Mild, Verified 02/28/25 10:36) sensitivity Sulfa (Sulfonamide Antibiotics) [SULFA (SULFONAMIDE ANTIBIOTICS)] Allergy (Mild, Verified 02/28/25 10:36) Rash terfenadine [From SELDANE] Allergy (Mild, Verified 02/28/25 10:36) sensitivity tetracycline [TETRACYCLINE] Allergy (Mild, Verified 02/28/25 10:36) sensitivity cefaclor [From CECLOR] Adverse Reaction (Severe, Verified 02/28/25 10:36) Unknown abaloparatide [From Tymlos] Adverse Reaction (Intermediate, Verified 02/28/25 10:36) Dizziness cefdinir Adverse Reaction (Intermediate, Verified 02/28/25 10:36) Stomach Upset montelukast [From Singulair] Adverse Reaction (Mild, Verified 02/28/25 10:36) Headache topiramate [From TOPAMAX] Adverse Reaction (Mild, Verified 02/28/25 10:36) Stomach Upset HPI Comments Details: The patient is a 79 y/o woman with pulmonary nodules, COPD and dyspnea. She did have a recent CT scan of the chest that we personally reviewed here in the office. This was with contrast. No evidence of any mediastinal structure abnormalities. The patient did have a slight dilation of the esophagus so therefore we need to monitor closely for reflux. However her lingular nodular densities appear to be a little better to be. She still has the atelectasis to the lingula. Although her pulmonary nodules are small subcentimeter in size and will need follow-up. She is wondering about the hypodensities of the liver and spleen. These appear to be very small and likely benign. We need to continue to monitor did nodules in the low and also those findings. We did look at her CT scan of the chest in a pulmonary nodules have been stable in the level of the lingula some degree of mucous plugging. 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 In the meantime she has pulmonary nodules for next CT scan of the chest is going to be for August of this year. Will follow up with her after that. In the meantime she will continue the azithromycin and follow up with Cardiology regarding her left-sided chest discomfort. I did give her reflux diet she will continue for now to minimize her reflux symptoms. 08/21/2022 the patient is here for a pulmonary follow-up visit. Her discomfort is now subsided. She did not complete the prednisone since she was better and she does not like the adverse effects. She is it the rest meantime. The patient had a CT scan back in July demonstrating stable chronic findings. No additional testing is warranted. She did also undergo blood work which was reassuring. We did reviewed in the office. At this point the patient continues uses respiratory therapy as prescribed. 02/26/2023 the patient is here for pulmonary follow-up visit. Overall the patient is doing well. Unfortunately she had a bad fall fracturing her right wrist. She does have a cast right now. From a respiratory status the patient started coughing more. For the last few weeks. Moderate severity. She had been using the Advair just once a day. She did increase it to twice a day she is feeling better. As far as blood work her eosinophils are elevated suggesting an allergic exposure. I did recommend she continue the Advair twice a day. The patient does not need any further imaging at this time. Allergy medications she started on Jackie. Seems to be working well. She cannot use Singulair. If the symptoms worsen she will call the office otherwise I will see her in 6 months. 09/03/2023 the patient is here for a pulmonary follow-up visit. Since we last spoke the patient developed a URI. Ultimately developing significant nasal congestion and cough. Subsequently after that she became more congested. She did go to urgent care. She did have a chest x-ray which is without any acute disease. She was took [id number]-jhd-bjdbfob medications with improvement. Overall she is feeling better. She does have the Advair inhaler although she does not use it all the time. The patient also complains of some scapular discomfort on the right side. Seems to have some pleuritic component. Appears to be more musculoskeletal. She is had significant issues with scoliosis. At this point the patient will try putting a Lidoderm patch that she does have at home. If she is no better she can always have a repeat chest x-ray. In his symptoms worsen and if not clear based on the x-ray we can consider getting another CT scan. Her last CT scan was last fall demonstrating stability of the parenchymal changes that she is had which is reassuring. 02/25/2024 the patient is here for a pulmonary follow-up visit. Overall she has been doing okay. She has not benefitted from the Symbicort. She felt like the Advair was more effective. Although her respiratory exam is pretty good right now I do not believe that she needs any maintenance inhalers. She should have a rescue inhaler available in case she develops any chest tightness or shortness of breath. She does get short of breath with activity. toly-gy-rufsldop severity. She complains of back pain. Her last chest x-ray demonstrates significant scoliosis. I do believe that this may be contributing to her musculoskeletal issues causing discomfort. She does take as needed Tylenol with good effect. Her last imaging study was otherwise reassuring from a pulmonary standpoint. Will go ahead and repeat her x-ray when she gets back from her trip. On the patient also complains of sinus pressure and also postnasal drip. She believes she has a component of sinusitis. She has multiple allergies. She can try taking this more course of doxycycline although if she develops any symptoms she can stop the medicine. The patient also can use a Neti bottle with distilled water to try to provide nasal rinsing. 08/27/2024 the patient is here for a pulmonary follow-up visit. She is doing well from a respiratory status. Denies any cough or wheezing. She is not taking the Singulair because of a question adverse affecting the past. She is taking Claritin with good effect. The patient did have a chest x-ray back in 05/22/2024 which I personally reviewed demonstrating no acute disease is slight scarring at the left base and some scoliosis. She is complaining of significant constipation. She was seen by her GI doctor who gave him so. It does not work she can always try ixlf-sha-iatijpu MiraLax. The patient is also having left lower quadrant abdominal pain. This happened after issues a stronger laxative before. I did recommend that she should continue taking medications prescribed by her GI doctor in if the a belly pain gets worse she should call back to her GI doctor to get further imaging studies. 02/28/2025 the patient is here for pulmonary follow-up visit. Overall she is doing well from a respiratory status. Although few nights ago she started developing left-sided chest discomfort that radiated from the top to the bottom of the chest area. Moderate severity. Last about 5 minutes and then it settled. The only new medication or new issue is that she started bupropion at nighttime. She had been taking it during the daytime but it was causing nausea and she was recommended take it at nighttime. Most likely developing esophageal symptoms and potentially spasms. Although she does have cardiovascular risk factors. I will have her get an EKG and if abnormal will have her follow-up with cardiology. In the meantime if the patient has any more symptoms like the 1 she had she also need to be evaluated. The patient has been on Prilosec already and will go ahead and switch her bupropion again to the morning and she can take Pepcid at nighttime to see if this provides additional relief of any did dyspepsia or gastritis or esophagitis that can potentially result in esophageal spasms. From a respiratory status she is doing well she is responding well to the current respiratory therapy she is taking it as needed. Does not need any maintenance therapy at this time. The patient will also undergo a chest x-ray. She has any issues prior to the next visit she will call for an earlier assessment. [facility] Medical History (Updated 02/28/25 @ 23:33 by Eduardo Lino MD) Chest pain Sinus congestion Cough Weight loss Polyarthralgia Fall Shoulder pain, right Back pain Nausea Palpitation Headache, post-traumatic, acute Scalp irritation Anemia Encounter for vitamin deficiency screening Renal cyst Dense breast Breast cancer screening by mammogram Acute bronchitis Ocular migraine Hyperlipidemia History of CVA (cerebrovascular accident) (~2020) Tubular adenoma of colon (~2005) SERG (obstructive sleep apnea) Nasal vestibulitis Degeneration, intervertebral disc, cervical Dry eye PONV (postoperative nausea and vomiting) Arthritis of neck Cerebral microvascular disease Atherosclerotic cardiovascular disease Precordial chest pain URI (upper respiratory infection) Overactive bladder Microscopic hematuria Urinary urgency Osteoporosis (~1999) Mycobacterial disease GERD (gastroesophageal reflux disease) Pulmonary nodules COPD (chronic obstructive pulmonary disease) Surgical History History of fusion of cervical spine History of sinus surgery History of colonoscopy History of esophagogastroduodenoscopy (EGD) History of bladder suspension procedure Family History Son No problems noted. Social History Household Members: Spouse Housing: Condominium Do you presently have visiting nurse or other home services: No Alcohol intake: never Patient Tobacco Use Status: Never used Tobacco Tobacco use type: Cigarette Years Smoked: parent and smoker e-Cigarette/Vaping Use: Never Used Second Hand Smoke Exposure: Yes Advance Directives Date on File: 08/16/20 service: No Current occupational status: retired Current occupation: right hand Cognitive needs: No Hearing needs: Yes (hearing aides) Vision needs: Yes (Glasses) Review of Systems Const Reports difficulty sleeping and Denies night sweats ENT Denies lip swelling, Denies sinus pain, Reports sinus pressure and Denies tongue swelling Card Reports chest pain, Denies palpitations, Denies dyspnea and Denies dyspnea on exertion Resp Reports cough, Denies pain on inspiration, Denies pain with cough, Denies dyspnea and Denies dyspnea on exertion GI Reports abdominal pain, Reports constipation, Reports GI cramping, Reports dys pepsia, Reports heartburn and Reports nausea Musc Reports back pain and Reports myalgias Neuro Denies Neuro-related abnormal movements and Denies Abnormal speech present Psych Denies no additional complaints Endo Denies palpitations Jose Alejandro/Lymph Denies easy bleeding and Denies lymphadenopathy Aller/Immun Denies lip swelling and Denies tongue swelling Physical Exam Vital Signs: Last Vital Signs Pulse 74 02/28/25 10:33 BP 148/72 H 02/28/25 10:33 Pulse Ox 98 02/28/25 10:33 Oxygen Delivery Method Room Air 02/28/25 10:33 BMI result Body Mass Index 21.1 Const General: comfortable and no acute distress Orientation/consciousness: patient oriented x3 HEENT Other: Unremarkable Head: Yes normal to inspection Neck Neck: Yes normal visual inspection Chest Chest palpation & inspection: normal inspection of the chest Resp Auscultation: clear to auscultation bilaterally Cardio Palpation: normal PMI Heart sounds: S1 normal heart sound present, S2 normal heart sound present, no gallops, no murmurs and no rubs GI Palpation (GI): Soft to palpation Back/Spine/Pelvis Other: unremarkable Skin General skin exam: no rashes or lesions noted Neuro General: patient oriented x3 Speech: No Abnormal speech present Extrem General: Yes normal to inspection Psych Mental Status: mental status grossly normal Assessment & Plan Assessment & Plan (1) COPD (chronic obstructive pulmonary disease): Code(s): J44.9 - Chronic obstructive pulmonary disease, unspecified Category: Medical Qualifiers: COPD type: chronic bronchitis Chronic bronchitis type: simple Qualified Code(s): J41.0 - Simple chronic bronchitis (2) Cough: Code(s): R05 - Cough Category: Medical Qualifiers: Cough type: chronic Qualified Code(s): R05.3 - Chronic cough (3) Dyspnea: Code(s): R06.00 - Dyspnea, unspecified Category: Medical Qualifiers: Dyspnea type: shortness of breath Qualified Code(s): R06.02 - Shortness of breath (4) Pulmonary nodules: Code(s): R91.8 - Other nonspecific abnormal finding of lung field Category: Medical (5) Back pain: Code(s): M54.9 - Dorsalgia, unspecified Category: Medical Qualifiers: Back pain laterality: bilateral Back pain location: low back pain Chronicity: chronic Sciatica presence: without sciatica Qualified Code(s): M54.50 - Low back pain, unspecified; G89.29 - Other chronic pain (6) Chest pain: Code(s): R07.9 - Chest pain, unspecified Category: Medical Qualifiers: Chest pain type: other chest pain Qualified Code(s): R07.89 - Other chest pain Plan continue LUZ as needed continue claritin CXR EKG continue PPI start Pepcid F/U 4-6 months Orders: Orders ECG 12 lead EKG Today J44.9 - Chronic obstructive pulmonary disease, unspecified, R07.9 - Chest pain, unspecified XR chest 2V Today R07.9 - Chest pain, unspecified Medications: New famotidine (Pepcid) 40 mg PO BEDTIME 30 tabs 5RF Coding Level of Care Code Est Pt Level 4 (25281) Complex EM visit Add On G2211 Diagnoses Simple chronic bronchitis J41.0 COPD type: chronic bronchitis Chronic bronchitis type: simple Chronic cough R05.3 Cough type: chronic Shortness of breath R06.02 Dyspnea type: shortness of breath Pulmonary nodules R91.8 Chronic bilateral low back pain without sciatica M54.50; G89.29 Back pain laterality: bilateral Back pain location: low back pain Chronicity: chronic Sciatica presence: without sciatica Other chest pain R07.89 Chest pain type: other chest pain Time Spent (min) 17
--- OUTSIDE RECORDS SUMMARY | 2025-02-28 11:54 | XMS_ITS ---
Author Organization [facility] Address [address] [place] [address] Care Team Providers Care Gauge And Weigh Machine Operator Name Role Phone Abby Potter Primary Care Provider Charity Castro Unavailable [phone] Raisa Bach [phone] REASON FOR VISIT switched to Dr Marquez Encounters Encounter Location Date Provider Diagnosis [address] [address] 12/09/2024 Raisa Bach Plan Of Treatment Next Appt Details Provider Name:Charity Rohan Jimmy , 03/07/2025 09:15:00 AM, [address] [place], [address], Progress Notes * Adelina TAVAREZ ADOB:[birth year] (79 yo F)Acc No.[id number]:12/09/2024 Progress Note Patient:?Adelina TAVAREZ Provider:?Raisa Bach DPM :1945???Age:79 Y???Sex:Female D ate:12/09/2024 Address:[address] [place] [address] [place] Pcp:Abby Potter Subjective: * Chief Complaints: * [...] DPM Date:?0 12/09/2024 Generated for Carmelina baker/[place]/Jose on:?02/28/2025 11:54 AM EDT
--- OUTSIDE RECORDS SUMMARY | 2025-02-28 11:54 | XMS_ITS | Referral Summary ---
Author Organization [facility] Address [address] [place] [address] Care Team Providers Care Mincing Machine Operator Name Role Phone Abby Potter Primary Care Provider [phone] Encounters Date Type Department Care Team Description 12/14/2024 9:30 AM EST Clinical Support [facility] [address] [place] [address] Sound Technician Supervisor: Deanna Miller LPN Age-related osteoporosis without current pathological fracture (Primary Dx) 12/01/2024 myChart Message [facility] [address] [place] [address] [phone] Sound Technician Supervisor: Carlos Diop MD Low potassium from Last [...] Info) Description 03/03/2025 9:30 AM EDT Follow-Up [facility] [address] [place] [address] Sound Technician Supervisor: Carlos Diop MD [address] [place] [address] 06/15/2025 9:00 AM EDT Clinical Support [facility] [address] [place] [address] Sound Technician Supervisor: Marlena Hurst Procedures * Due to [facility] law, this organization might not be sharing negative HIV tests. Procedure Name Priority Date/Time Associated Diagnosis Comments HM DEXA SCAN 10/31/2023 from Last 3 Months or Most Recently Relevant to Health Maintenance Results * Due to [facility] law, this organization might not be sharing negative HIV tests. * HM Dexa Scan (10/31/2023) Anatomical Region Laterality Modality Other 10/31/2023 us Onbase Scan [facility] Final Resu lt from Last 3 Months or Most Recently Relevant to Health Maintenance Insurance MEDICARE [facility] Care Teams Mincing Machine Operator Relationship Specialty Start Date End Date Abby Potter [address] [facility] [place] [address] PCP - General Internal Medicine 04/14/24
--- OUTSIDE RECORDS SUMMARY | 2025-02-28 11:54 | XMS_ITS | Patient Health Record ---
Author Organization [facility] Lily suzi Denny Address [address] [place] [address] Care Team Providers Care Manager Payment Name Role Phone Abby Potter Primary Care Provider UnavailCharity Wasserman Unavailable [phone] Raisa Bach Unavailable [phone] Allergies Allergen (clinical drug ingredient) Drug/Non Drug [...] Duration) Notes Start Date End Date Status Multivitamin Active Prochlorperazine Maleate Not-Taking Atorvastatin Calcium 20 MG 1 tablet Orally Once a day for 30 day(s) Active vitamin D Not-Taking Calcium Active Fioricet Not-Taking Calcium Not-Taking Flax Seed Oil Not-Ta cristian Doxycycline Not-Taki ng Bonnyman 3 500 400 mg 1 capsule Orally Twice a day Not-Taking eliquis 5 mg Active Eye Drops Active methylPREDNISolone N ot-Taking Lexapro Active Indomethacin 25 MG take 1 capsule by mouth twice a day if needed for inflammation Oral for 30 Not-Taking Neurontin 100 MG Orally Not -Taking Ciclopirox Olamine 0.77% external Apply to effected areas twice a day for 30 days 01/02/2015 Not-Taking Metoprolol Succinate ER Not-Taking Pazeo Not-Taking Penicillin V Potassium 500 MG 1 [...] for 10 days 02/20/2023 Not-Taking Valium Not-Taking Probiotic Active Linzess Not-Taking traMADol HCl ER 100 MG 1 tablet Orally Once a day PRN Active Fish Oil Not-Taking Crestor 10 mg Not-Ta cristian Amitiza Not-Taking Atenolol 25 MG 1 tablet Orally Once a day Not-Taking Aciphex Not-Taking Nystatin 826017 UNIT Orally Not-Taking Prednisone Not-Takin g Ethambutol HCl Not-T aking Immunizations Vaccine Route Administration Date Status Comme [...] Problem Acquired hammer toe of right foot (0799009727950129) Other hammer toe(s) (acquired), right foot (M20.41) Active confirmed Problem Tinea unguium (327158330) Tinea unguium (B35.1) Active confirmed Problem Acquired hammer toe of left foot (1988169011303424) Other hammer toe(s) (acquired), left foot (M20.42) Active confirmed Problem Acquired hallux valgus (59678668) Hallux valgus (acquired), right foot (M20.11) Active confirmed Problem Localized, primary osteoarthritis of the ankle and/or foot (406914237) Arthritis of joint of lesser toe, left (M19.072) Active confirmed Problem Localized, primary osteoarthritis of the ankle and/or foot (804947437) Arthritis of joint of lesser toe, right (M19.071) Active confirmed Vital Signs Blood pressure diastolic 70 mm Hg 12/09/2024 Height 5ft in 12/09/2024 Blood pressure systolic 112 mm Hg 12/09/2024 Weight 110 lbs 12/09/2024 BMI 21.48 kg/m2 12/09/2024 Procedures Procedure Date Ordered Date Performed Result Body Sit e 94306-KMBPPQV NAIL, 6 OR MORE 05/24/2024 N/A 43609-RZOVFKG NAIL, 6 OR MORE 08/23/2024 N/A 67304-Bzjdmvqb Plate 08/23/2024 N/A 64546-ZPDDCDS NAIL, 6 OR MORE 12/09/2024 N/A 08543-Wbkxqowq Plate 12/09/2024 N/A Encounters Encounter Location Date Provider Diagnosis [address] [address] 05/24/2024 Charity Black Tinea unguium B35.1 ; Pain in right toe(s) M79.674 and Pain in left toe(s) M79.[address] [address] 08/23/2024 Charity Black Tinea unguium B35.1 ; Pain in right toe(s) M79.674 ; Pain in left toe(s) M79.675 and Ingrown nail L60.[address] [address] 12/09/2024 Charity Black Tinea unguium B35.1 ; Ingrown nail L60.0 ; Pain in right toe(s) M79.674 and Pain in left toe(s) M79.675 [facility] [address] [address] 05/24/2024 Charity Black [address] [address] 11/29/2024 Charity Black [address] [address] 12/07/2024 Charity Marquez Assessments Encounter Date Diagnosis (ICD Code) Assessment Notes Treatment Notes Treatment Clinical Notes Section Notes 05/24/2024 Tinea unguium (ICD-10 - B35.1) 05/24/2024 Pain in right toe(s) (ICD-10 - M79.674) 08/23/2024 Tinea unguium (ICD-10 - B35.1) 08/23/2024 Pain in right toe(s) (ICD-10 - M79.674) 12/09/2024 Tinea unguium (ICD-10 - B35.1) 12/09/2024 Ingrown nail (ICD-10 - L60.0) 12/09/2024 Pain in right toe(s) (ICD-10 - M79.674) 08/23/2024 Pain in left toe(s) (ICD-10 - M79.675) 05/24/2024 Pain in left toe(s) (ICD-10 - M79.675) 08/23/2024 Ingrown nail (ICD-10 - L60.0) 12/09/2024 Pain in left toe(s) (ICD-10 - M79.675) Plan Of Treatment Pending Test Test Name Order Date 05442-SVWJXDX NAIL, 6 OR MORE 02/14/2014 09073-DKVKLSK NAIL, 6 OR MORE 04/03/2016 83600-ESWQDWC NAIL, 6 OR MORE 08/01/2016 78818-LARWGAA NAIL, 6 OR MORE 02/06/2017 27492-QGRKOVN NAIL, 6 OR MORE 03/05/2017 37624-WOSGVOS NAIL, 6 OR MORE 06/09/2017 85545-OYAJHWG NAIL, 6 OR MORE 09/11/2017 01747-XXCPUXG NAIL, 6 OR MORE 12/11/2017 87793-OQENZKU NAIL, 6 OR MORE 03/12/2018 44631-NRJSJTM NAIL, 6 OR MORE 06/11/2018 51783-YEEXDQW NAIL, 6 OR MORE 09/14/2018 62674-BKZHYWV NAIL, 6 OR MORE 11/26/2018 53880-SRBGIBF NAIL, 6 OR MORE 02/25/2019 06824-DKACSDV NAIL, 6 OR MORE 06/03/2019 69046-RSCMHIG NAIL, 6 OR MORE 09/02/2019 64620-ELTARFS NAIL, 6 OR MORE 12/06/2019 27768-ZXXJEPD NAIL, 6 OR MORE 02/28/2020 75760-OJWWAMF NAIL, 6 OR MORE 05/18/2020 00148-QSZAPWO NAIL, 6 OR MORE 07/25/2020 51471-KHYZUYJ NAIL, 6 OR MORE 10/19/2020 18155-HCOUWRU NAIL, 6 OR MORE 01/15/2021 55662-YNGKIAT NAIL, 6 OR MORE 03/19/2021 87815-KCQYITT NAIL, 6 OR MORE 05/17/2021 95256-PXBLHDM NAIL, 6 OR MORE 08/23/2021 70510-AYUCPDG NAIL, 6 OR MORE 11/01/2021 49636-ZOWUGHP NAIL, 6 OR MORE 01/14/2022 23162-YMYQFVW NAIL, 6 OR MORE 04/22/2022 27596-UCTGIUS NAIL, 6 OR MORE 08/06/2022 07829-ALTSHJX NAIL, 6 OR MORE 10/24/2022 36585-XRYIXLY NAIL, 6 OR MORE 01/30/2023 17293-QTLHOTF NAIL, 6 OR MORE 04/21/2023 42044-BLEAUHM NAIL, 6 OR MORE 07/14/2023 30773-VQDMUGP NAIL, 6 OR MORE 11/24/2023 75006-CYETHJI NAIL, 6 OR MORE 02/16/2024 81402-JXREYVX NAIL, 6 OR MORE 05/24/2024 67590-ERZWCAF NAIL, 6 OR MORE 08/23/2024 07607-BIDLVNX NAIL, 6 OR MORE 12/09/2024 19733-GSPTRCF NAIL, 1-5 10/17/2016 50946-RVHAVPP NAIL, 1-5 12/06/2016 03523-YQEXIEK NAIL, 1-5 01/01/2016 25449-HROHKUS NAIL, 1-5 09/04/2015 67705-UCQCAQI NAIL, 1-5 04/17/2015 07903-NGOBEAE NAIL, 1-5 06/01/2015 72614-TNGRWQN NAIL, 1-5 12/23/2013 93597-MKQSIEE NAIL, 1-5 09/15/2014 25354-HZWGJCT NAIL, 1-5 01/02/2015 26796-Chktgrrz Plate 01/02/2015 51672-Kxdpkbmb Plate 04/17/2015 38831-Vrfxcxgu Plate 12/23/2013 35016-Dlhotmoc Plate 06/01/2015 93961-Zuzsaedk Plate 01/01/2016 80781-Xehtxjtu Plate 09/15/2014 82310-Bglrlusz Plate 09/17/2016 05175-Xtistxyv Plate 09/14/2018 89198-Gqtxpowy Plate 12/11/2017 86190-Nyobtksr Plate 03/19/2021 24480-Xadbdwly Plate 11/01/2021 43436-Hzgjyvah Plate 08/23/2021 49876-Jbcfuyum Plate 05/17/2021 70826-Hlyhqnpt Plate 05/18/2020 50812-Pkwtbjni Plate 09/02/2019 23032-Hypssdcz Plate 02/28/2020 70435-Bmnliftp Plate 12/06/2019 84605-Jfdzpdmi Plate 02/25/2019 20101-Rhywcric Plate 06/03/2019 94333-Yqvemuer Plate 11/26/2018 50756-Drfncdgt Plate 12/09/2024 28097-Phsoiaru Plate 08/23/2024 42024-Eecujmps Plate 02/16/2024 00370-Npleocdv Plate 04/21/2023 59021-Vjyrdupa Plate 01/30/2023 64895-Eoattols Plate Each Additional 57585-Wwebabkx Plate Each Additional 57816-Lkfscvgz Plate Each Additional 11/2018 17665-Gfuagzho Plate Each Additional 01/2020 31798-Nvgdpfzx Plate Each Additional 78649-Bycxflfz Plate Each Additional 64790-Vychstvs Plate Each Additional 25454-HNN 01/06/2017 27596-KBS 04/03/2016 92025- Debride <25 sq cm 05/02/2016 25017- Debride <25 sq cm 10/17/2016 33847- Debride <25 sq cm 12/06/2016 77777- Debride <25 sq cm 06/01/2015 08033- Debride <25 sq cm 02/06/2017 10291-DZLGPQW SKIN/TISSUE 01/20/2017 28648-JUTDLDV SKIN/TISSUE 04/17/2016 41688 I&D ABSCESS- SIMPLE,SINGLE 022 Next Appt Details Provider Name:Charity Marquez , 03/07/2025 09:15:00 AM, [address] [facility], [place], [address], Insurance Providers Payer Name Payer Address Payer Phone Subscriber Number Group Number Insured Name Patient Relationship to Insured Coverage Start Date Coverage End Date Medicare National Govt [employer] (acquired by [employer] in 2014) [employer] [address] [place] [id number] [id number] Adelina Tavarez Self - patient is the insured [employer] [place] [address] [place] [phone] [id number] Adelina Tavarez Self - patient is the insured Medical (General) History Medical History History ICD Code Arthritis Back,Hip,and Knee pain Depression Fibromyalgia Headaches Osteoporosis Reflux chronic sinusitis Broken bones Bone Density - body not making anymore Surgical History Surgery Date(Month/Year) sinus surgery bladder surgery Lung biopsy 01/2015 neck surgery 02/2019 endoscopy 11/2019 Hospitalization History Reason Date(Month/Year) [facility] For Pressure on chest - it was ac id reflux 2017 [facility]- Broken Wrist - right 0 01/16/2023 Stroke 08/2021
--- OUTSIDE RECORDS SUMMARY | 2025-02-28 11:54 | XMS_ITS | Clinical Summary ---
Author Organization [facility] Address [address] [place] [address] Care Team Providers Care Mortgage Loan Specialist Name Role Phone TariqAbby Monico Primary Care Provider [phone] Allergies Active Allergy Reactions Criticality Noted Date [...] Description 12/14/2024 9:30 AM EST Clinical Support [facility] [address] [place] [address] Energy Analyst: Deanna Miller LPN Age-related osteoporosis without current pathological fracture (Primary Dx) 12/01/2024 myChart Message [facility] [address] [place] [address] Energy Analyst: Carlos Diop MD Low potassium from Last [...] Info) Description 03/03/2025 9:30 AM EDT Follow-Up [facility] [address] [place] [address] Energy Analyst: Carlos Diop MD [address] [place] [address] [phone] 06/15/2025 9:00 AM EDT Clinical Support [facility] [address] [place] [address] Energy Analyst: Marlena Hurst Health Maintenance Due Date Last [...] complete this topic Procedures * Due to [place] state law, this organization might not be sharing negative HIV tests. Procedure Name Priority Date/Time Associated Diagnosis Comments HM DEXA SCAN 10/31/2023 from Last 3 Months or Most Recently Relevant to Health Maintenance Results * Due to [place] state law, this organization might not be sharing negative HIV tests. * Dexa Scan (10/31/2023) Anatomical Region Laterality Modality Other 10/31/2023 us Onbase Scan [facility] HEALTH MAINTENANCE Final Resu lt from Last 3 Months or Most Recently Relevant to Health Maintenance Insurance MEDICARE [facility] Care Teams Mortgage Loan Specialist Relationship Specialty Start Date End Date Abby Potter [address] [place] [address] [place] [address] PCP - General Internal Medicine 04/14/24
--- OUTSIDE RECORDS SUMMARY | 2025-02-28 11:54 | XMS_ITS | Encounter Summary ---
Author Organization [facility] Address [address] [place] [address] Care Team Providers Care President Name Role Phone TariqMarleeelidia Marc Primary Care Provider [phone] Reason for Visit * Reason Onset Date Comments PAC Patient Request Call Back 06/08/2024 Encounter Details Date Type Department Care Team (Late st Contact Info) Description 06/08/2024 Telephone [facility] [address] [place] [address] Telephone Intake, Staff PAC Patient Request Call [...] for 9am. Patient can be reached at [phone]. Thank you - PAC documented in this encounter Plan of Treatment Upcoming Encounters Date Type Department Care Team (Late st Contact Info) Description 03/03/2025 9:30 AM EDT Follow-Up [facility] [address] [place] [address] Headline Writer: Carlos Diop MD [address] [place] [address] 06/15/2025 9:00 AM EDT Clinical Support [facility] [address] [place] [address] Headline Writer: Marlena Hurst documented as of this encounter Visit Diagnoses Not on filedocumented in this encounter Care Teams President Relationship Specialty Start Date End Date Abby Potter [address] [place] [address] [place] [address] PCP - General Internal Medicine 04/14/24 documented as of this encounter
--- OUTSIDE RECORDS SUMMARY | 2025-02-28 11:54 | XMS_ITS ---
Author Organization [facility] Address [address] [facility] [place] [address] Care Team Providers Care Casino Host Name Role Phone Abby Potter Primary Care Provider Charity Castro Unavailable [phone] Allergies Allergen (clinical drug ingredient) Drug/Non Drug [...] Calcium Not-Taking Flax Seed Oil Not-Hardy foster Whitewater 3 500 400 mg 1 capsule Orally Twice a day Not-Taking Pazeo Not-Taking Doxycycline Not-Taki samuel Crestor 10 mg Not-Hardy foster Atenolol 25 MG 1 tablet Orally Once a day Not-Taking Nystatin 623969 UNIT Orally Not-Taking Metoprolol Succinate ER Not-Taking [...] Ordered Date Performed Result Body Sit e 05159-NHWIALA NAIL, 6 OR MORE 12/09/2024 N/A 89270-Rmcsitla Plate 12/09/2024 N/A Encounters Encounter Location Date Provider Diagnosis [facility] [address] [place] [address] 12/09/2024 Charity Black Tinea unguium B35.1 ; [...] Treatment Pending Test Test Name Order Date 35312-CUUTGTY NAIL, 6 OR MORE 12/09/2024 91862-Hopkcpkk Plate 12/09/2024 Next Appt Details Follow Up: 2 Weeks,prn, Reas on: Provider Name:Charity Marquez , 03/07/2025 09:15:00 AM, [address] [place] [address], [phone], Procedure Notes * Category Sub-Category Detail [...] Motrin was recommended for pain or discomfort (20664) Anesthesia was accomplished TOP ICALLY with Lidocaine [...] a nail nipper and/or dremel-type lens grinder rough, to a more viable healthy nail plate [...] to maintain effectiveness in symptomatic relief - 04127 Progress Notes * Adelina TAVAREZ ADOB:[birth year] (79 yo F)Acc No.[id number]:12/09/2024 Progress Note Patient:?MELANIEAdelina A Provider:?Charity Marquez DPM :1945???Age:79 Y???Sex:Female D ate:12/09/2024 Address:[address] [place], [place] [id number] Pcp:Abby Potter Subjective: * Chief Complaints: * [...] surgery 02/2019endoscopy 11/2019 * Hospitalization/Major Diagno stic Procedure:?[facility] For Pressure on chest - it was acid reflux 2018Stroke 08/2021[facility]- Broken Wrist - right 01/16/2023 * [...] yes, walking. ?Marital status: . 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 * Medications:?TakingCalcium M ultivitamin Atorvastatin Calcium 20 [...] times a weekMetoprolol Succinate ER Pazeo Nystatin 187757 UNIT Tablet Orally Crestor 10 mg Atenolol 25 MG Tablet 1 tablet Orally Once a day Doxycycline Whitewater 3 500 400 mg Capsule 1 capsule [...] Metoprolol Succinate ER Not-Taking/PRN Pazeo Not-Taking/PRN Nystatin 375999 UNIT Tablet Orally Not-Taking/PRN Crestor 10 mg Not-Taking/PRN Atenolol 25 MG Tablet 1 tablet Orally Once a day Not-Taking/PRN Doxycycline Not-Taking/PRN Whitewater 3 500 400 mg Capsule 1 capsule [...] - M79.675??? Plan: * Treatment: 2.?Tinea unguium?Procedure: 50235-HAAATIS NAIL, 6 OR MORE * Procedures:?Debride Nail [...] a nail nipper and/or dremel-type lens grinder rough, to a more viable healthy nail plate [...] to maintain effectiveness in symptomatic relief - 82008.?Nail Avulsion:?Location?Lateral nail border, T5.?Anesthesia?was accomplished TOPICALLY with [...] Motrin was recommended for pain or discomfort (17739).? * Procedure Codes:?45698 DEBRI DE NAIL, 6 OR MORE, Modifiers: XS 35496 Avulsion Plate, Modifiers: T5 * Preventive Medicine:? ??Screening/Special Tests:?Fall Risk?Screening:?No falls in the past year ?FALLS: Screening for Future Fall Risk?Have you had any falls with injury in the past year??No * Follow Up:?2 Weeks,prn * Images: * Sign off status: Completed true * Provider:?Charity Marquez DPM Date:?2024 Generated for Carmelina baker/[place]/Jose on:?02/28/2025 11:54 AM EDT History and Physical Notes * [...]
--- OUTSIDE RECORDS SUMMARY | 2025-02-28 11:55 | XMS_ITS ---
Author Organization [facility] Address [address] [place] [address] Care Team Providers Care Manager Party Name Role Phone Abby Pottre Primary Care Provider Charity Castro [phone] REASON FOR VISIT 2/6 appt Encounters Encounter Location Date Provider Diagnosis [address] [address] 12/07/2024 Charity Marquez Plan Of Treatment Next Appt Details Provider Name:Charity Marquez , 03/07/2025 09:15:00 AM, [address] [place], [address], Progress Notes * Adelina TAVAREZ ADOB:[birth year] (79 yo F)Acc No.[id number]:12/07/2024 Patient:?Adelina TAVAREZ :1945???Age:79 Y???Sex:Female Address:[address] [place] [address] [place] [address] * true * Date:? Generated for Printi ng/Facarolynng/eTransmitting on:?02/28/2025 11:54 AM EDT
== END 2025-02-28 11:02 | disposition home or self-care (01) ==
LOC: HO.HPS 10:15
PROVIDERS: PCP Internal Medicine; Visit Provider Hospitalist
DX: J41.0 Simple chronic bronchitis (principal); R91.8 Other nonspecific abnormal finding of lung field; R07.89 Other chest pain; M54.50 Low back pain, unspecified
CPT/HCPCS: 99214; G2211

== ENCOUNTER → 2025-02-28 11:09 | Outpatient (BNV) | payer MEDICARE, OTHER, SELFPAY | PROVIDERS: PCP Internal Medicine; Visit Provider Internal Medicine Cardiovascular Disease | DX: R94.31 Abnormal electrocardiogram [ECG] [EKG] (principal); J44.9 Chronic obstructive pulmonary disease, unspecified | CPT/HCPCS: 93010 ==

== ENCOUNTER 2025-03-11 08:37 | Outpatient (AMB) | payer MEDICARE, OTHER, SELFPAY ==
--- NOTE | 2025-03-11 08:43 | MHC.PC.OV ---
Vital Signs 03/11/25 08:45 Height 5 ft Weight 105 lb 6 oz BMI 20.6 BP 120/64 Blood Pressure Location Lt brachial Position Sitting Pulse 71 Pulse Source Pulse Oximeter Temp 96.6 F L Temp Source Temporal Artery Scan Pulse Oximetry (%) 97 Oxygen Delivery Method Room Air Intake Visit Reasons: annual exam Intake Note: Patient is here today for a physical. Spud Driller Required: No Mechanical Test Engineer: Not Required per policy Accompanied by: Self / Same As Patient Allergies naproxen [From NAPROSYN] Allergy (Severe, Verified 03/11/25 08:44) sensitivity niacin [From NIASPAN EXTENDED-RELEASE] Allergy (Severe, Verified 03/11/25 08:44) Rash clarithromycin [From BIAXIN] Allergy (Mild, Verified 03/11/25 08:44) sensitivity codeine [CODEINE] Allergy (Mild, Verified 03/11/25 08:44) Itching esomeprazole [From Nexium] Allergy (Mild, Verified 03/11/25 08:44) Hives fluconazole [From DIFLUCAN] Allergy (Mild, Verified 03/11/25 08:44) sensitivity gatifloxacin [From TEQUIN] Allergy (Mild, Verified 03/11/25 08:44) sensitivity hydrocodone [From Vicodin] Allergy (Mild, Verified 03/11/25 08:44) Rash levofloxacin [From Levaquin] Allergy (Mild, Verified 03/11/25 08:44) sensitivity oxycodone [From Percocet] Allergy (Mild, Verified 03/11/25 08:44) Itching quinidine [QUINIDINE] Allergy (Mild, Verified 03/11/25 08:44) sensitivity Sulfa (Sulfonamide Antibiotics) [SULFA (SULFONAMIDE ANTIBIOTICS)] Allergy (Mild, Verified 03/11/25 08:44) Rash terfenadine [From SELDANE] Allergy (Mild, Verified 03/11/25 08:44) sensitivity tetracycline [TETRACYCLINE] Allergy (Mild, Verified 03/11/25 08:44) sensitivity cefaclor [From CECLOR] Adverse Reaction (Severe, Verified 03/11/25 08:44) Unknown abaloparatide [From Tymlos] Adverse Reaction (Intermediate, Verified 03/11/25 08:44) Dizziness bupropion [From Wellbutrin] Adverse Reaction (Intermediate, Unverified 03/11/25 09:07) Nausea cefdinir Adverse Reaction (Intermediate, Verified 03/11/25 08:44) Stomach Upset montelukast [From Singulair] Adverse Reaction (Mild, Verified 03/11/25 08:44) Headache topiramate [From TOPAMAX] Adverse Reaction (Mild, Verified 03/11/25 08:44) Stomach Upset Medication List - Last Reconciled 03/11/25 by Abby Potter MD albuterol sulfate 90 mcg/actuation 2 inhalations inhalation Q6H PRN 30 days atorvastatin 40 mg PO DAILY cholecalciferol (vitamin D3) TAKE 1 CAPSULE BY MOUTH DAILY Eliquis (apixaban) 5 mg PO BID 90 days NS estradiol 0.01%(0.1mg/gram) (Estrace) pea size amount to urethra vaginally daily famotidine (Pepcid) 40 mg PO BEDTIME Lexapro (escitalopram oxalate) 10 mg PO DAILY NS lidocaine 4% (Lidocaine Pain Relief) 1 patch See Protocol transdermal DAILY loratadine 10 mg PO DAILY PRN nebulizers As directed polyethylene glycol 3350 (Miralax) 17 grams PO DAILY 30 days promethazine 12.5 mg PO Q6H PRN NS sennosides-docusate sodium 8.6-50 mg (Senna with Docusate Sodium) 2 tab-caps (2 x 8.6-50 mg) PO BEDTIME 30 days tramadol 50 mg PO BID PRN 21 days Xanax (alprazolam) 0.5 mg PO BEDTIME PRN NS Tobacco use date assessed: 03/11/25 Fall risk assessment: No Falls in past year Last assessed Fall Risk: 03/11/25 Dental Screening Dental Screen Date: 11/25/24 [facility] Medical History Chest pain Sinus congestion Cough Weight loss Polyarthralgia Fall Shoulder pain, right Back pain Nausea Palpitation Headache, post-traumatic, acute Scalp irritation Anemia Encounter for vitamin deficiency screening Renal cyst Dense breast Breast cancer screening by mammogram Acute bronchitis Ocular migraine Hyperlipidemia History of CVA (cerebrovascular accident) (~2020) Tubular adenoma of colon (~2005) SERG (obstructive sleep apnea) Nasal vestibulitis Degeneration, intervertebral disc, cervical Dry eye PONV (postoperative nausea and vomiting) Arthritis of neck Cerebral microvascular disease Atherosclerotic cardiovascular disease Precordial chest pain URI (upper respiratory infection) Overactive bladder Microscopic hematuria Urinary urgency Osteoporosis (~2000) Mycobacterial disease GERD (gastroesophageal reflux disease) Pulmonary nodules COPD (chronic obstructive pulmonary disease) Surgical History History of fusion of cervical spine History of sinus surgery History of colonoscopy History of esophagogastroduodenoscopy (EGD) History of bladder suspension procedure Family History Son No problems noted. Social History Household Members: Spouse Housing: Condominium Do you presently have visiting nurse or other home services: No Alcohol intake: never Patient Tobacco Use Status: Never used Tobacco Tobacco use type: Cigarette Years Smoked: parent and smoker e-Cigarette/Vaping Use: Never Used Second Hand Smoke Exposure: Yes Advance Directives Date on File: 08/16/20 service: No Current occupational status: retired Current occupation: right hand Cognitive needs: No Hearing needs: Yes (hearing aides) Vision needs: Yes (Glasses) Questionnaire Thrive Questionnaire Date Thrive assessed: 11/25/24 SAVANNAH-7 AMB Questionnaire SAVANNAH-7 Date SAVANNAH - 7 assessed: 11/25/24 Source: Developed by Drs. Augie Espinoza, Yue Griffin, Michael Gallo and colleagues, with an educational aniya from [employer]. Review of Systems Const Denies poor appetite and Denies weakness Eyes Denies no additional complaints ENT Reports Normal hearing present, Denies dizziness, Denies nasal congestion, Denies tinnitus and Denies sore throat Card Denies chest pain, Denies syncope, Denies rapid heart rate and Denies dyspnea Resp Denies cough and Denies dyspnea GI Denies change in stool character, Reports constipation, Denies diarrhea, Denies nausea and Denies vomiting Denies urinary frequency, Denies difficulty voiding and Denies dysuria Neuro Reports Normal hearing present, Denies confusion, Denies dizziness, Denies syncope and Denies weakness Psych Denies confusion Physical exam (Primary Care) Vital Signs: Last Vital Signs Temp 96.6 F L 03/11/25 08:45 Pulse 71 03/11/25 08:45 BP 120/64 03/11/25 08:45 Pulse Ox 97 03/11/25 08:45 Oxygen Delivery Method Room Air 03/11/25 08:45 BMI result Body Mass Index 20.6 Tobacco/Smoking Status: Tobacco use Status Tobacco use date assessed 03/11/25 03/11/25 08:51 Patient Tobacco Use Status Never used Tobacco 03/11/25 08:51 Tobacco use type Cigarette 03/11/25 08:51 e-Cigarette/Vaping Use Never Used 03/11/25 08:51 Thrive Assessment: Date of Thrive Assessment Date Thrive assessed 11/25/24 03/11/25 08:51 Const General: No confusion Orientation/consciousness: No confusion HENMT Head: Yes normocephalic Ears: external ears normal and TM's normal bilaterally Face and sinus: Yes normal facial exam Mouth: moist mucous membranes Throat: Yes tonsils normal Eyes Conjunctivae: conjunctivae normal Pupils: Equal, round and reactive pupils present and Pupil accommodation reflex normal Direct Ophthalmoscopy: normal light reflex Neck Neck: No lymphadenopathy Thyroid: Thyroid normal Chest Chest palpation & inspection: normal inspection of the chest Resp Effort & Inspection: normal respiratory effort and no audible wheezes Auscultation: clear to auscultation bilaterally, no crackles, no wheezes and lung sounds not diminished Cardio Rate: regular rate Rhythm: regular rhythm Peripheral pulses: radial pulses present and dorsalis pedis present GI Other: Guaiac negative stools Palpation (GI): no masses Auscultation: normal bowel sounds and normoactive bowel sounds Skin General skin exam: no rashes or lesions noted Rashes: no rashes Neuro General: No confusion Cranial nerves: Yes Equal, round and reactive pupils present and Yes Normal hearing present Cognition (Neuro): normal cognition Gait exam (Neuro): Normal gait present Motor exam (neuro): 5/5 motor strength present throughout Deep tendon reflexes (DTR's): Right brachioradialis reflex intensity grade: 2+, Left brachioradialis reflex intensity grade: 2+, Right patellar reflex intensity grade: 2+ and Left patellar reflex intensity grade: 2+ Extrem General: No edema Coding Level of Care Code Est Pt Prev Care >65y(77209) Diagnoses Annual physical exam Z00.00 Gastroesophageal reflux disease with esophagitis without hemorrhage K21.00 Esophagitis bleeding: without hemorrhage Esophagitis presence: with esophagitis Simple chronic bronchitis J41.0 COPD type: chronic bronchitis Chronic bronchitis type: simple History of CVA (cerebrovascular accident) Z86.73 Hyperlipidemia E78.5 Generalized anxiety disorder F41.1 Carpal tunnel syndrome G56.00 Assessment & Plan Assessment & Plan (1) Annual physical exam: Code(s): Z00.00 - Encounter for general adult medical examination without abnormal findings Category: Medical Plan: Patient is advised to eat healthy, keep well hydrated, keep active and have adequate sleep. (2) GERD (gastroesophageal reflux disease): Code(s): K21.9 - Gastro-esophageal reflux disease without esophagitis Category: Medical Qualifiers: Esophagitis bleeding: without hemorrhage Esophagitis presence: with esophagitis Qualified Code(s): K21.00 - Gastro-esophageal reflux disease with esophagitis, without bleeding Plan: Avoid the foods that causes that usually spicy foods, tomato products, juices, coffee, soda and foods that your sensitive to. After eating do not lie down, allow 3-4 hours before in lie down. And keep the head of bed above 30 degrees to avoid the acid from going up. (3) COPD (chronic obstructive pulmonary disease): Code(s): J44.9 - Chronic obstructive pulmonary disease, unspecified Category: Medical Qualifiers: COPD type: chronic bronchitis Chronic bronchitis type: simple Qualified Code(s): J41.0 - Simple chronic bronchitis Plan: Patient is being followed up by Pulmonary on albuterol inhaler (4) History of CVA (cerebrovascular accident): Onset Date: ~2020 Comment: (right cerebellar hemisphere infarct - tx tPA 08/03/2021) Code(s): Z86.73 - Personal history of transient ischemic attack (TIA), and cerebral infarction without residual deficits Category: Medical Plan: Continue with anticoagulation and Eliquis renal function to check regularly (5) Hyperlipidemia: Code(s): E78.5 - Hyperlipidemia, unspecified Category: Medical Plan: Avoid fried foods, chicken skin, eggs, butter margarine, pastries and meat. Be it pork or beef they have a lot of cholesterol LDL goal of less than 70 and triglyceride of less than 150 patient in on atorvastatin 40 mg once a day (6) Generalized anxiety disorder: Code(s): F41.1 - Generalized anxiety disorder Category: Medical Plan: Concern that the patient is having nausea. Will discontinue Wellbutrin and put in BuSpar advised to start with once a day and then after few days can do twice a day (7) Carpal tunnel syndrome: Comment: February 2025 Mild right median neuropathy across carpal tunnel. 2. Mild right ulnar neuropathy across cubital tunnel. 3. Radiculopathy could not be ruled out because of lack of EMG data. Code(s): G56.00 - Carpal tunnel syndrome, unspecified upper limb Category: Medical Plan: Discussed with the patient that he she has mild carpal tunnel syndrome on the right and advised to use wrist brace. Plan History of Present Illness The patient is a 79-year-old female presenting for a follow-up physical exam, including the assessment of breast pain and management of multiple chronic conditions. The patient experiences nausea linked to bupropion use, initially timed for nighttime but altered back to morning following reports of chest discomfort. Management for GERD symptoms includes the addition of Pepcid. An EKG verified consistent normal sinus rhythm. There is a history of cerebrovascular accident in 2020 with tPA intervention, continued prophylaxis with Eliquis for previous stroke prevention, and current COPD monitoring. Osteoporosis management shows a stable condition with recent bone density testing. Hypercholesterolemia management with atorvastatin is effective with recent favorable lab results. Right carpal tunnel syndrome and mild ulnar nerve involvement have been confirmed through neurological evaluation; a wrist brace is recommended. Chronic anxiety managed with alprazolam persists, though the current issue involves intolerable nausea with Wellbutrin, prompting the consideration of BuSpar as a replacement. The patient has also noted visual complications during migraines primarily in the left eye. Health Maintenance - Managed osteoporosis with consistent bone density monitoring (last test October 2023). - Lipid management with atorvastatin, LDL goal achieved. - Eliquis monitoring, with renal function regularly checked. - Pneumonia vaccinations updated. - Tetanus vaccination up to date. - Shingles vaccination completed. - Annual wellness and disease screening exams. - GERD managed with dietary advisement and Pepcid. - Carpal tunnel syndrome managed with wrist brace and lifestyle modifications. - Ongoing coordination with pulmonary for COPD management. Social History - Reports no alcohol use. - Dietary habits include grinders for lunch with notable intake of ham, cheese, and turkey; limits soda intake, opting for jolene huang. - Reports activity level with regular walking. - Denies tobacco use. - Reports not using prescribed hormone vaginal cream regularly. Review of Systems - Neurological: Denies dizziness; reports chronic headaches with visual disturbances. - Cardiovascular: Denies chest pain currently; reports one episode during sleep. - Respiratory: Denies shortness of breath or frequent use of inhaler. - Gastrointestinal: Reports heartburn; denies swallowing issues, occasional sensation of food getting stuck. - Genitourinary: Denies significant nocturia or dysuria. - Musculoskeletal: Reports mild discomfort from carpal tunnel syndrome; utilizes wrist brace. - Dermatological: Denies skin changes. - Psychiatric: Reports anxiety managed with alprazolam; experiencing nausea with current medication. Physical Exam General: Cooperative, healthy appearing, comfortable, no acute distress and well developed Orientation: Patient oriented x3 Limitations: No limitations Head: Normal to inspection Ears: Hearing grossly normal bilaterally Nose: Normal external nose present Face and sinus: Normal facial exam Eyes: Appearance normal, both eyes and all related structures, except for left eye lid not staying up and vision not good Neck: Normal visual inspection and Yes full ROM Respiratory: Normal respiratory effort and able to speak in complete sentences. Clear to auscultation bilaterally Cardiovascular: Regular rate and rhythm. Normal S1 and S2 GI: Normal to inspection. Soft to palpation and nontender Skin: No rashes or lesions noted Neuro: Patient oriented x3 Extremities: Normal to inspection Results - Labs: Normal blood counts, normal electrolytes, slightly low potassium, slightly low B12. - Tests and diagnostics: EKG indicates normal sinus rhythm; nerve conduction studies showed mild right carpal tunnel and ulnar nerve involvement. Plan The patient will discontinue Wellbutrin due to associated nausea and begin Buspirone BuSpar) to manage anxiety, starting at one dosage daily with opportunities to increase as tolerated. GERD will be managed with Pepcid as needed for symptomatic relief. To address slightly low potassium, recommendations have been made for increased dietary potassium consumption. Continued atorvastatin use will manage hypercholesterolemia, maintaining regular lipid assessments. Vitamin supplementation is advised given noted deficiency. In managing carpal tunnel symptoms, use of a wrist brace is recommended alongside regular activity to mitigate discomfort. COPD management includes maintaining current inhaler use, only as required. Regular renal function testing will monitor anticoagulation effects of Eliquis. Comprehensive education on stroke recognition is reiterated. No additional intervention is warranted for ocular migraines, though an blind eyeletter?s review is suggested considering reported visual difficulties and dry eye symptoms. Patient was informed and verbally consented to the use of an ambient scribe for clinic note documentation during this visit. Discussion Notes I discussed the decision to discontinue Wellbutrin due to nausea and replace it with Buspirone, highlighting the necessity for close monitoring of nausea symptoms. We reviewed the use of Pepcid for GERD symptom alleviation and discussed lifestyle modifications to control diet-induced symptoms. I instructed the patient on dietary modulation to address low potassium levels and affirmed that current atorvastatin therapy is effectively managing cholesterol levels. Recommendations for B12 supplementation were made to correct mild deficiency. For carpal tunnel syndrome, we discussed the benefits of using a wrist brace for symptom relief. We agreed to continue COPD management with prn albuterol, and I ensured understanding of the importance of routine renal function tests while on Eliquis. Finally, I emphasized stroke recognition education, and we discussed potential follow-up with an power system dispatcher regarding the patient?s eye symptoms. Patient Instructions - Start BuSpar once daily for anxiety, increasing to twice daily as tolerated. - Stop Wellbutrin due to nausea. - Take Pepcid as needed for heartburn. - Eat more potassium-rich foods, like bananas and oranges. - Keep taking atorvastatin daily; check cholesterol levels regularly. - Get some B12 supplements and take weekly. - Wear a wrist brace for hand discomfort. - Use the inhaler when needed for breathing difficulties. - Drink plenty of water each day. - Return if you notice more eye problems, breathing issues, or stroke signs. Orders: Orders Comprehensive Met. Panel 5 Months Z. - Personal history of transient ischemic attack (TIA), and cerebral infarction without residual deficits Free T4 (Free Thyroxine) 5 Months Z. - Personal history of transient ischemic attack (TIA), and cerebral infarction without residual deficits Thyroid Stimulating Hormone 5 Months Z. - Personal history of transient ischemic attack (TIA), and cerebral infarction without residual deficits Vitamin D 25-OH Total 5 Months Z. - Personal history of transient ischemic attack (TIA), and cerebral infarction without residual deficits Magnesium 5 Months Z. - Personal history of transient ischemic attack (TIA), and cerebral infarction without residual deficits Complete Blood Count Auto Diff 5 Months Z. - Personal history of transient ischemic attack (TIA), and cerebral infarction without residual deficits Lipid Panel 5 Months E78.00 - Pure hypercholesterolemia, unspecified, Z. - Personal history of transient ischemic attack (TIA), and cerebral infarction without residual deficits Vitamin B12 and Folate 5 Months Z86.73 - Personal history of transient ischemic attack (TIA), and cerebral infarction without residual deficits UA CC w/rflx Micro + Cult 5 Months R30.0 - Dysuria, Z86.73 - Personal history of transient ischemic attack (TIA), and cerebral infarction without residual deficits Medications: New buspirone 5 mg PO BID 60 tabs 0RF NS F41.1 - Generalized anxiety disorder Refilled sennosides-docusate sodium 8.6-50 mg (Senna with Docusate Sodium) 2 tab-caps (2 x 8.6-50 mg) PO BEDTIME 60 tabs 2RF 30 days K59.00 - Constipation, unspecified
[2025-03-11 08:45] VITALS: BP 120/64; PULSE 71; TEMP 35.9; O2SAT 97; BMI 20.6
--- OUTSIDE RECORDS SUMMARY | 2025-03-11 08:50 | XMS_ITS | Clinical Summary ---
Author Organization [facility] Address [address] [place] [address] Care Team Providers Care Loader Operator Name Role Phone TariqAbby Monico Primary Care Provider [phone] Allergies Active Allergy Reactions Criticality Noted Date Comments Amitriptyline Unknown 06/05/2007 Cefaclor Palpitations,Other ( see comments) 06/04/2007 Other reaction(s): OTHER increased palpatations increased palpatations Codeine Dermatitis 06/04/2007 Other reaction(s): rash,dermatitis, Rash/Dermatitis Other reaction(s): Rash/Dermatitis Other reaction(s): Rash/Dermatitis Hydrocodone Unknown 08/21/2021 Oxycodone Hcl Unknown 08/21/2021 Medications atorvastatin (LIPITOR) 40 mg tablet Take 40 mg by mouth nightly. 4 Active Eliquis 5 mg tablet Take 5 mg by mouth every 12 hours. Active Symbicort 80-4.5 mcg/actuation inhaler Inhale 2 puffs by mouth daily. 3 Active butalbital-trini taminophen-caf feine (FIORICET) 50-325-40 mg tablet Take 1 tablet by mouth as needed. Active cholecalcifero l (VITAMIN D3) 2,000 unit capsule Take 1 capsule by mouth once a day. 4 Active cyanocobalamin 1,000 mcg tablet Take 1,000 mcg by mouth daily. Active diazePAM (VALIUM) 10 mg tablet Take 10 mg by mouth as needed. Active Lexapro 10 mg tablet Take 10 mg by mouth once a day. Active loratadine 10 mg capsule Take 1 capsule by mouth once a day. Active traMADoL (ULTRAM) 50 mg tablet Take 50 mg by mouth as needed. 3 Active COQ10, UBIQUINOL, ORAL Take by mouth. Active fluticasone propionate (FLONASE) 50 mcg/actuation nasal spray 4 Active diclofenac (VOLTAREN) 1% gel Apply 4 g topically to the affected area 4 times a day. Lower extremity joints - apply 4 gm 4 times a day, max 16 gm/joint/day. Max 32 gm/day total 100 g 2 5 025 Active benzonatate (TESSALON) 200 mg capsule Take 200 mg by mouth as needed. 4 025 Discontinued (Therapy Completed or No Longer Needed) Active Problems Problem Noted Date Diagnosed Date Age-related osteoporosis wit hout current pathological fracture 05/17/2024 Encounters Date Type Department Care Team Description 03/03/2025 9:30 AM EDT Follow-Up [facility] [address] [place] [id number] Health Promotion Manager: Carlos Diop MD Osteoporosis with current pathological fracture with routine healing, unspecified osteoporosis type, subsequent encounter (Primary Dx); High risk medication use; Closed fracture of right wrist with routine healing, subsequent encounter; Other osteoporosis without current pathological fracture 12/14/2024 9:30 AM EST Clinical Support [facility] [address] [place] [address] Health Promotion Manager: Deanna Miller LPN Age-related osteoporosis without current pathological fracture (Primary Dx) from Last 3 Months Social History Tobacco [...] Sign Reading Time Taken Comments Blood Pressure 114/76 03/03/2025 9:18 AM EDT Pulse 77 03/03/2025 9:18 AM EDT Temperature 36.8 ??C (98.3 ??F) 03/03/2025 9:18 AM ED T Respiratory Rate - - Oxygen Saturation - - Inhaled Oxygen Concentration - - Weight 49.9 kg (110 lb) 03/03/2025 9:18 AM EDT Height 152.4 cm (5') 08/31/2024 9:36 AM EDT Body Mass Index 21.48 08/31/2024 9:36 AM EDT Plan of Treatment Upcoming Encounters Date Type Department Care Team (Late st Contact Info) Description 06/15/2025 9:00 AM EDT Clinical Support [facility] [address] [place] [address] Health Promotion Manager: Marlena Hurst 11/07/2025 9:30 AM EST Follow-Up [facility] [address] [place] [address] Health Promotion Manager: Carlos Diop MD [address] [place] [address] [id number] Health Maintenance Due Date Last Done Comments Hepatitis C Screening 1945 Medicare AWV 1946 COVID-19 Vaccine ( season) 2024 08/05/2023, 10/21/2021, 01/01/2021, Additional history exists Alcohol/Substance Use Screening 11/03/2024 Depression Screening and Follow-Up 11/03/2024 Health Care Proxy Review 11/03/2024 Social Drivers of Health Annual Screening 11/03/2024 Influenza Vaccine (Season Ended) 2025 08/05/2023, 07/24/2022, 08/01/2021, Additional history exists Fall Risk Screening 03/03/2026 03/03/2025 DTaP,Tdap,and Td Vaccines (3 - Td or Tdap) 11/17/2029 11/17/2019, 09/01/2009 Tobacco Screening 11/03/2042 03/03/2025 Zoster Vaccines Completed 10/03/2020, 110 07/2020, 07/20/2020, Additional history exists RSV Vaccine (60+ years old and patients) Completed 08/05/2023 Osteoporosis Screening Completed 10/31/2023, 2018 Pneumococcal Vaccine: 50+ Years Completed 03/05/2024, 06/22/2015, 11/17/2013 Hepatitis B Vaccines Aged Out No long er eligible based on patient's age to complete this topic Procedures * Due to [place] law, this organization might not be sharing negative HIV tests. Procedure Name Priority Date/Time Associated Diagnosis Comments DEXA SCAN 10/31/2023 from Last 3 Months or Most Recently Relevant to Health Maintenance Results * Due to [place] law, this organization might not be sharing negative HIV tests. * Dexa Scan (10/31/2023) Anatomical Region Laterality Modality Other 10/31/2023 us Onbase Scan [facility] Final Resu lt from Last 3 Months or Most Recently Relevant to Health Maintenance Insurance [facility]ICARE [facility] Care Teams Loader Operator Relationship Specialty Start Date End Date Abby Potter [address] [facility] [place] [address] PCP - General Internal Medicine 04/14/24
--- OUTSIDE RECORDS SUMMARY | 2025-03-11 08:50 | XMS_ITS | Encounter Summary ---
Author Organization [facility] Address [address] [place] [address] Care Team Providers Care Inventory Management Specialist Name Role Phone Abby Potter Primary Care Provider [phone] Reason for Referral * Physical Therapy (Routine) - Pending Review Specialty Diagnoses / Procedures Referred By Contac t Referred To Contact Physical Therapy Diagnoses Osteoporosis with current pathological fracture with routine healing, unspecified osteoporosis type, subsequent encounter High risk medication use Closed fracture of right wrist with routine healing, subsequent encounter Chiquita Painter MD [address] [place], [place] [id number] Phone: tel: fax: Referral ID Status Reason Start Date Expiration Date Visits Requested Visits Authorized [id number] Pending Review Specialty Services Required 03/03/2025 04/03/2026 6 6 * Diagnostic Imaging (Routine) - Pending Review Specialty Diagnoses / Procedures Referred By Contac t Referred To Contact Diagnoses Osteoporosis with current pathological fracture with routine healing, unspecified osteoporosis type, subsequent encounter Other osteoporosis without current pathological fracture Procedures DXA Axial and TBS Chiquita Painter MD [address] [place] [address] Phone: tel: fax: Referral ID Status Reason Start Date Expiration Date V isits Requested Visits Authorized [id number] Pending Review 03/03/2025 09/02/2026 1 1 Reason for Visit * Reason Comments Follow-up Osteoporosis * Consultation (Routine) - Authorized Specialty Diagnoses / Procedures Referred By Contac t Referred To Contact Rheumatology Diagnoses 3 MOS F/U OSTEOPOROSIS Procedures FOLLOW UP Abby [address] [place] [address] Phone: tel: fax: Dunia uNnez MD [address] [place] [address] Phone: tel: fax: Referral ID Status Reason Start Date Expiration Date V isits Requested Visits Authorized [id number] Authorized 08/31/2024 03/02/2026 6 6 Encounter Details Date Type Department Care Team (Late st Contact Info) Description 03/03/2025 9:30 AM EDT Follow-Up [facility] [address] [place] [phone] Client Advocate: Carlos Diop MD [address] [place] [address] Osteoporosis with current pathological fracture with routine healing, unspecified osteoporosis type, subsequent encounter (Primary Dx); High risk medication use; Closed fracture of right wrist with routine healing, subsequent encounter; Other osteoporosis without current pathological fracture Social History Tobacco Use Types Packs/Day Years [...] on file documented as of this encounter Last Filed Vital Signs Vital Sign Reading Time Taken Comments Blood Pressure 114/76 03/03/2025 9:18 AM EDT Pulse 77 03/03/2025 9:18 AM EDT Temperature 36.8 ??C (98.3 ??F) 03/03/2025 9:18 AM ED T Respiratory Rate - - Oxygen Saturation - - Inhaled Oxygen Concentration - - Weight 49.9 kg (110 lb) 03/03/2025 9:18 AM EDT Height - - Body Mass Index 21.48 08/31/2024 9:36 AM EDT documented in this encounter Progress Notes * Chiquita Painter MD - 03/04/2025 3:13 PM EDT Images from the original note were not included. I was present and participated in the interview and exam of Ms. Adelina Tavarez. I reviewed the patient's medical history, the findings on physical exam, pertinent labs and studies with Dr. Salas and agree with her diagnosis and treatment plan as documented. Case discussed with the fellow. Chiquita Painter MD inventory associate Division of Rheumatology [address] Received DXA reports 10/31/23 DXAs from [facility] but read by [facility] in [facility] BMD T-score L1-4 1.066 -0.9 (inaccurate due to OA) L FN 0.408 -4.5 (prior T-socre -3.2 in 2020) L TH 0.516 -3.9 (prior T-score -2.7 in 2020) L/S w/ sig OA changes and variable T-scores (L1:-2.5, L2 -0.3, L3 and L4 -0.7) * Carlos Salas MD - 03/03/2025 10:09 AM EDT Adelina Tavarez is a 79 y.o. 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 DEXA scan on 04/2019: Osteoporosis. Done under [facility] under [facility] T-score -2.9 left hip, T-score of right hip -2.2 T-score L-spine -2.8 DEXA scan 09/22/2021 with T-score of -3.2 left femoral neck. Per prior providers documentation (no data here for total hip T-score or L/S) DEXA scan 10/2023 osteoporosis [facility]: [address] Gayathri Marquis [place] T-score of left femoral neck -4.5, T-score of left hip total -3.9, L-spine -0.9. Prior history of wrist fracture in 2022 No history of fracture in first-degree relatives. Menopause in early 40s. Prior treatment --3 doses of Reclast: 2018, 2019, 2020. --Denosumab 01/2022 (switch due to worsening T-scores). Per prior providers note, denosumab for 2 years. From January 2022 to March 2024. Patient is not sure of the last dose, was not clear from theproviders notes either. Could be ?September 2023 patient reports not getting any doses in 2023. --abaloparatide (03/2024) - only 2 doses stopped due to side effects, dizziness, room spinning sensation. Secondary workup for osteoporosis: Negative Current treatment-Prolia We restarted Prolia thinking that she might be in the rapid bone loss phase. First dose of Prolia on 06/11/2024, Second dose on 12/14/2024 She is on calcium 200 mg and vitamin D 2000 international unit daily. She is accompanied by her sontoday. Per her son she is not exercising much. Patient reports walking daily. No interim falls or fractures. Tolerating Prolia fine without any side effects. Patient also reports bilateral shoulder pain. When she had the wrist fracture after a fall in January 2023, she thinks that she also have injured her shoulder. We have done an x-ray of her shoulder during the last visit and it did not show any fractures. We discussed about physical therapy, but patient was not willing at the time. Today her son would like patient to do some physical therapy. Patient prefers to do something close to her house. She also has some pain in her right knee, especially on the medial side after walking for some distances. It improves with rest. No swelling. No dental work planned. Review of system The patient denies fevers, chills, weight change in last 6 months. No rash No thyroid disease No chest pain, SOB, wheezing No abdominal pain, nausea, vomiting, diarrhea, blood in stools. GERD on prilosec for the , for the last couple of week.s No kidney stones, No falls, history of fractures in the interim Patient Active Problem List Diagnosis Date Noted Age-related osteoporosis without current pathological fracture 05/17/2024 Current Outpatient Medications on File Prior to Visit Medication Sig Dispense Refill atorvastatin (LIPITOR) 40 mg tablet Take 40 mg by mouth nightly. [DISCONTINUED] benzonatate (TESSALON) 200 mg capsule Take 200 mg by mouth as needed. (Patient not taking: Reported on 03/03/2025) povnratvaa-pcagklatliyqp-aaxozspw (FIORICET) 50-325-40 mg tablet Take 1 tablet by mouth as needed. cholecalciferol (VITAMIN D3) 2,000 unit capsule Take 1 capsule by mouth once a day. COQ10, UBIQUINOL, ORAL Take by mouth. cyanocobalamin 1,000 mcg tablet Take 1,000 mcg by mouth daily. diazePAM (VALIUM) 10 mg tablet Take 10 mg by mouth as needed. Eliquis 5 mg tablet Take 5 mg by mouth every 12 hours. fluticasone propionate (FLONASE) 50 mcg/actuation nasal spray Lexapro 10 mg tablet Take 10 mg by mouth once a day. loratadine 10 mg capsule Take 1 capsule by mouth once a day. Symbicort 80-4.5 mcg/actuation inhaler Inhale 2 puffs by mouth daily. traMADoL (ULTRAM) 50 mg tablet Take 50 mg by mouth as needed. No current facility-administered medications on file prior to visit. Allergies Allergen Reactions Amitriptyline Unknown Cefaclor Palpitations and Other (see comments) Other reaction(s): OTHER increased palpatations increased palpatations Codeine Dermatitis Other reaction(s): rash,dermatitis, Rash/Dermatitis Other reaction(s): Rash/Dermatitis Other reaction(s): Rash/Dermatitis Hydrocodone Unknown Oxycodone Hcl Unknown No past medical history on file. No past surgical history on file. No family history on file. Social History Tobacco Use Smoking status: Never Passive exposure: Past Smokeless tobacco: Never Substance Use Topics Alcohol use: Not Currently Physical Exam Gen: well developed, well nourished, NAD HENT: Mucous membranes pink and moist, no oral lesions CV: RRR, no m/r/g Pulm: Clear to auscultation bilaterally Skin: No rashes or lesions Spine nontender to palpation Musculoskeletal: Full non painful ROM. Range of motion is good on bilateral shoulders. Has some pain towards the end of abduction. Some mild kyphosis but no ttp over vertebral processes. Currently available Rheumatologic testing values noted below: Hematology Lab Results Component Value Date WBC 7.7 11/10/2024 HGB 12.0 11/10/2024 HCT 36.7 11/10/2024 MCV 88.9 11/10/2024 PLT 285 11/10/2024 Chemistry Lab Results Component Value Date GLUCOSE 92 11/10/2024 CALCIUM 9.2 11/10/2024 NA 140 11/10/2024 BUN 10 11/10/2024 CREATININE 0.73 11/10/2024 Lab Results Component Value Date ALT 9 11/10/2024 AST 17 11/10/2024 BILITOT 1.2 11/10/2024 Imaging Multiple DEXA scans as mentioned above 08/31/2024 Bilateral shoulder x-rays AP view neutral and [...] the greater tuberosity. Also slightly soft tissue mineralizationat the AC joint. Assessment and Plan: Adelina Tavarez is a 79 y.o. female is here for osteoporosis. She has been on Reclast 3 doses, switched to Prolia for ~1-2 years in the setting of worsening DEXAscan (8695-1761/2024). While on Prolia she had a wrist fracture. Subsequent bone density scan done at a different location ([facility]) had worsening of her T-scores with left femoral neck T-score of -4.5 and left total hip T-score of -3.9. Given worsening T-scores, she was switched to abaloparatide which patient only tolerated a couple of doses. She has a history of stroke, so Evenity could not begiven. The DEXA scans were done at different locations, so not comparable. We also thought that she is in the rapid bone loss phase after her Prolia. During the first visit with me patient is at least 7 months out for last dose of Prolia. We restarted her Prolia, so far she received 2 doses. She is tolerating okay. She is compliant with her calcium and vitamin D. She is doing some walking. No interim fractures. Her workup for secondary causes of osteoporosis was negative -Continue calcium 1200 mg daily through diet and supplements. -Vitamin D 2203-2946 international unit(s) daily -Discussed the importance of weight bearing exercises like walking and weights for bone health. -I have requested our admin staff to get the images of her bone density scan from [facility] in [facility] -We will continue Prolia as of now. So far she has gotten 2 doses with us. We will aim for 2 more doses then likely will aim to give 1-2 doses of Reclast. 5mg IV yearly. - Repeat bone density scan after October 2025. Her last one was in October 2023 was at [place] - given she had two at [facility] ([facility]) would aim to do it there and then will also call for reports and images of all these DXAs.. - Labs before next Prolia. We would like to get a CTX level. Orders placed. Patient and son aware. # Polyarticular osteoarthritis Bilateral shoulder pain right greater than left and right knee pain. Pain worse with activities andimproves with rest. We have done x-rays of her shoulders with osteoarthritic changes. Today she has good range of motion in the office although the extremes of abduction was a little painful. No swelling or tenderness in the shoulders. Minimal medial joint line tenderness on the right knee. Has previously discussed about physical therapy which patient was not interested in. Today son is interested in looking into this option. Physical therapy orders placed and gave a list of physical therapy places. She is looking for a place nearby her house - Discussed about diclofenac gel up to 4 times a day. Discussed about avoiding NSAIDs as she is on Eliquis - Discussed about as needed Tylenol. She also takes occasional tramadol. - I discussed the option of injection to the shoulder if pain is bothersome. Patient does not want an injection. -RTC November 2025 after the bone density scan Patient seen and evaluated with Dr Painter who is in agreement. documented in this encounter Plan of Treatment Upcoming Encounters Date Type Department Care Team (Late st Contact Info) Description 06/15/2025 9:00 AM EDT Clinical Support [facility] [address] [place] [address] Client Advocate: Marlena Hurst 11/07/2025 9:30 AM EST Follow-Up [facility] [address] [place] [address] Client Advocate: Carlos Diop MD [address] [place] [address] Scheduled Orders Name Type Priority Associated Diagnoses Orde r Schedule DXA Axial and TBS Imaging Routine Osteoporosis with current pathological fracture with routine healing, unspecified osteoporosis type, subsequent encounter Other osteoporosis without current pathological fracture Expected: 11/03/2025, Expires: 09/03/2026 Vitamin D, 25-Hydroxy, Total, Immunoassay Lab Routine Osteoporosis with current pathological fracture with routine healing, unspecified osteoporosis type, subsequent encounter High risk medication use Closed fracture of right wrist with routine healing, subsequent encounter Expected: 05/17/2025 (Approximate), Expires: 03/03/2026 Calcium Lab Routine Osteoporosis with current pathological fracture with routine healing, unspecified osteoporosis type, subsequent encounter High risk medication use Closed fracture of right wrist with routine healing, subsequent encounter Expected: 05/17/2025 (Approximate), Expires: 03/03/2026 Creatinine Lab Routine Osteoporosis with current pathological fracture with routine healing, unspecified osteoporosis type, subsequent encounter High risk medication use Closed fracture of right wrist with routine healing, subsequent encounter Expected: 05/17/2025 (Approximate), Expires: 03/03/2026 Albumin Lab Routine Osteoporosis with current pathological fracture with routine healing, unspecified osteoporosis type, subsequent encounter High risk medication use Closed fracture of right wrist with routine healing, subsequent encounter Expected: 05/17/2025 (Approximate), Expires: 03/03/2026 Phosphorus Lab Routine Osteoporosis with current pathological fracture with routine healing, unspecified osteoporosis type, subsequent encounter High risk medication use Closed fracture of right wrist with routine healing, subsequent encounter Expected: 05/17/2025 (Approximate), Expires: 03/03/2026 Collagen Type I C-Telopeptide (CTx) Lab Routine Osteoporosis with current pathological fracture with routine healing, unspecified osteoporosis type, subsequent encounter High risk medication use Closed fracture of right wrist with routine healing, subsequent encounter Other osteoporosis without current pathological fracture Expected: 05/17/2025, Expires: 03/03/2026 Scheduled Referrals Name Type Priority Associated Diagnoses Orde r Schedule Ambulatory referral to Physical Therapy Outpatient Referral Routine Osteoporosis with current pathological fracture with routine healing, unspecified osteoporosis type, subsequent encounter High risk medication use Closed fracture of right wrist with routine healing, subsequent encounter Expected: 05/17/2025, Expires: 04/03/2026 documented as of this encounter Visit Diagnoses Diagnosis Osteoporosis with current pathological fracture with routine healing, unspecified osteoporosis type, subsequent encounter- Primary High risk medication use Closed fracture of right wrist with routine healing, subsequent encounter Other osteoporosis without current pathological fracture documented in this encounter Care Teams Inventory Management Specialist Relationship Specialty Start Date End Date Abby Potter [address] [place] [address] dr Gayathri Trinh, [place] [address] PCP - General Internal Medicine 04/14/24 documented as of this encounter
--- OUTSIDE RECORDS SUMMARY | 2025-03-11 08:50 | XMS_ITS | Encounter Summary ---
Author Organization [facility] Address [address] [place] [address] Care Team Providers Care Embroidery Designer Name Role Phone TariqMarleeelidia Marc Primary Care Provider [phone] Reason for Visit * Reason Onset Date Comments PAC Patient Request Call Back 06/08/2024 Encounter Details Date Type Department Care Team (Late st Contact Info) Description 06/08/2024 Telephone [facility] [address] [place] [address] Telephone Intake, Staff PAC Patient Request Call [...] for 9am. Patient can be reached at [phone]. Thank you - PAC documented in this encounter Plan of Treatment Upcoming Encounters Date Type Department Care Team (Late st Contact Info) Description 06/15/2025 9:00 AM EDT Clinical Support [facility] [address] [place] [address] Medical Physiologist: Marlena Hurst 11/07/2025 9:30 AM EST Follow-Up [facility] [address] [place] [address] Medical Physiologist: Carlos Diop MD [address] [place] [address] documented as of this encounter Visit Diagnoses Not on filedocumented in this encounter Care Teams Embroidery Designer Relationship Specialty Start Date End Date Abby Potter [address] [place] [address] [place] [address] PCP - General Internal Medicine 04/14/24 documented as of this encounter
--- OUTSIDE RECORDS SUMMARY | 2025-03-11 08:50 | XMS_ITS | Referral Summary ---
Author Organization [facility] Address [address] [place] [address] Care Team Providers Care Conventional Underwriter Name Role Phone TariqMarleeelidia Marc Primary Care Provider Encounters Date Type Department Care Team Description 03/03/2025 9:30 AM EDT Follow-Up [facility] [address] [place] [address] Department Store Door Greeter: Carlos Diop MD Osteoporosis with current pathological fracture with routine healing, unspecified osteoporosis type, subsequent encounter (Primary Dx); High risk medication use; Closed fracture of right wrist with routine healing, subsequent encounter; Other osteoporosis without current pathological fracture 12/14/2024 9:30 AM EST Clinical Support [facility] [address] [place] [address] Department Store Door Greeter: Deanna Miller LPN Age-related osteoporosis without current pathological fracture (Primary Dx) from Last 3 Months Allergies Active Allergy [...] Description 06/15/2025 9:00 AM EDT Clinical Support [facility] [address] [place] [address] Department Store Door Greeter: Marlena Hurst 11/07/2025 9:30 AM EST Follow-Up [facility] [address] [place] [address] Department Store Door Greeter: Carlos Diop MD [address] [place] [address] Procedures * Due to [place] state law, this organization might not be sharing negative HIV tests. Procedure Name Priority Date/Time Associated Diagnosis Comments DEXA SCAN 10/31/2023 from Last 3 Months or Most Recently Relevant to Health Maintenance Results * Due to [employer] law, this organization might not be sharing negative HIV tests. * Dexa Scan (10/31/2023) Anatomical Region Laterality Modality Other 10/31/2023 us Onbase Scan [facility] Final Resu lt from Last 3 Months or Most Recently Relevant to Health Maintenance Insurance MEDICARE [facility] Care Teams Conventional Underwriter Relationship Specialty Start Date End Date Abby Potter [address] [place] [address] [place] [address] PCP - General Internal Medicine 04/14/24
== END 2025-03-11 09:32 | disposition home or self-care (01) ==
LOC: HO.HMCH 08:38
PROVIDERS: PCP Internal Medicine; Visit Provider Internal Medicine
DX: Z00.00 Encounter for general adult medical examination without abnormal findings (principal); J41.0 Simple chronic bronchitis; K21.00 Gastro-esophageal reflux disease with esophagitis, without bleeding; Z86.73 Personal history of transient ischemic attack (TIA), and cerebral infarction without residual deficits; E78.5 Hyperlipidemia, unspecified; F41.1 Generalized anxiety disorder; G56.00 Carpal tunnel syndrome, unspecified upper limb

== ENCOUNTER → 2025-03-11 08:37 | Outpatient (BNVA) | payer MEDICARE, OTHER, SELFPAY | PROVIDERS: PCP Internal Medicine; Visit Provider Internal Medicine | DX: Z00.00 Encounter for general adult medical examination without abnormal findings (principal); K21.00 Gastro-esophageal reflux disease with esophagitis, without bleeding; J41.0 Simple chronic bronchitis; E78.5 Hyperlipidemia, unspecified; F41.1 Generalized anxiety disorder; G56.00 Carpal tunnel syndrome, unspecified upper limb; Z86.73 Personal history of transient ischemic attack (TIA), and cerebral infarction without residual deficits | CPT/HCPCS: 99397 ==

== ENCOUNTER 2025-03-29 09:14 | Outpatient (AMB) | payer MEDICARE, OTHER, SELFPAY ==
[2025-03-29 09:18] VITALS: BP 130/62; PULSE 71; O2SAT 97; BMI 21.3
--- NOTE | 2025-03-29 09:18 | MHC.PC.OV ---
Vital Signs 03/29/25 09:18 Height 5 ft Weight 109 lb BMI 21.3 BP 130/62 Blood Pressure Location Lt brachial Position Sitting Pulse 71 Pulse Source Pulse Oximeter Pulse Oximetry (%) 97 Oxygen Delivery Method Room Air Intake Visit Reasons: Neurology Referral Allergies naproxen [From NAPROSYN] Allergy (Severe, Verified 03/29/25 09:18) sensitivity niacin [From NIASPAN EXTENDED-RELEASE] Allergy (Severe, Verified 03/29/25 09:18) Rash clarithromycin [From BIAXIN] Allergy (Mild, Verified 03/29/25 09:18) sensitivity codeine [CODEINE] Allergy (Mild, Verified 03/29/25 09:18) Itching esomeprazole [From Nexium] Allergy (Mild, Verified 03/29/25 09:18) Hives fluconazole [From DIFLUCAN] Allergy (Mild, Verified 03/29/25 09:18) sensitivity gatifloxacin [From TEQUIN] Allergy (Mild, Verified 03/29/25 09:18) sensitivity hydrocodone [From Vicodin] Allergy (Mild, Verified 03/29/25 09:18) Rash levofloxacin [From Levaquin] Allergy (Mild, Verified 03/29/25 09:18) sensitivity oxycodone [From Percocet] Allergy (Mild, Verified 03/29/25 09:18) Itching quinidine [QUINIDINE] Allergy (Mild, Verified 03/29/25 09:18) sensitivity Sulfa (Sulfonamide Antibiotics) [SULFA (SULFONAMIDE ANTIBIOTICS)] Allergy (Mild, Verified 03/29/25 09:18) Rash terfenadine [From SELDANE] Allergy (Mild, Verified 03/29/25 09:18) sensitivity tetracycline [TETRACYCLINE] Allergy (Mild, Verified 03/29/25 09:18) sensitivity cefaclor [From CECLOR] Adverse Reaction (Severe, Verified 03/29/25 09:18) Unknown abaloparatide [From Tymlos] Adverse Reaction (Intermediate, Verified 03/29/25 09:18) Dizziness bupropion [From Wellbutrin] Adverse Reaction (Intermediate, Verified 03/29/25 09:18) Nausea cefdinir Adverse Reaction (Intermediate, Verified 03/29/25 09:18) Stomach Upset montelukast [From Singulair] Adverse Reaction (Mild, Verified 03/29/25 09:18) Headache topiramate [From TOPAMAX] Adverse Reaction (Mild, Verified 03/29/25 09:18) Stomach Upset Medication List - Last Reconciled 03/29/25 by Abby Potter MD albuterol sulfate 90 mcg/actuation 2 inhalations inhalation Q6H PRN 30 days atorvastatin 40 mg PO DAILY buspirone 5 mg PO BID NS cholecalciferol (vitamin D3) TAKE 1 CAPSULE BY MOUTH DAILY Eliquis (apixaban) 5 mg PO BID 90 days NS estradiol 0.01%(0.1mg/gram) (Estrace) pea size amount to urethra vaginally daily famotidine (Pepcid) 40 mg PO BEDTIME Lexapro (escitalopram oxalate) 10 mg PO DAILY NS lidocaine 4% (Lidocaine Pain Relief) 1 patch See Protocol transdermal DAILY loratadine 10 mg PO DAILY PRN nebulizers As directed polyethylene glycol 3350 (Miralax) 17 grams PO DAILY 30 days promethazine 12.5 mg PO Q6H PRN NS sennosides-docusate sodium 8.6-50 mg (Senna with Docusate Sodium) 2 tab-caps (2 x 8.6-50 mg) PO BEDTIME 30 days tramadol 50 mg PO BID PRN 21 days Tobacco use date assessed: 03/11/25 Fall risk assessment: 1 Fall in past year Last assessed Fall Risk: 03/29/25 Dental Screening Dental Screen Date: 11/25/24 HPI Neurology Referral HPI Details R chest soreness concerns. MMSE 28/30 [facility] Medical History Chest pain Sinus congestion Cough Weight loss Polyarthralgia Fall Shoulder pain, right Back pain Nausea Palpitation Headache, post-traumatic, acute Scalp irritation Anemia Encounter for vitamin deficiency screening Renal cyst Dense breast Breast cancer screening by mammogram Acute bronchitis Ocular migraine Hyperlipidemia History of CVA (cerebrovascular accident) (~2020) Tubular adenoma of colon (~2005) SERG (obstructive sleep apnea) Nasal vestibulitis Degeneration, intervertebral disc, cervical Dry eye PONV (postoperative nausea and vomiting) Arthritis of neck Cerebral microvascular disease Atherosclerotic cardiovascular disease Precordial chest pain URI (upper respiratory infection) Overactive bladder Microscopic hematuria Urinary urgency Osteoporosis (~1999) Mycobacterial disease GERD (gastroesophageal reflux disease) Pulmonary nodules COPD (chronic obstructive pulmonary disease) Surgical History History of fusion of cervical spine History of sinus surgery History of colonoscopy History of esophagogastroduodenoscopy (EGD) History of bladder suspension procedure Family History Son No problems noted. Social History Household Members: Sp[facility] Do you presently have visiting nurse or other home services: No Alcohol intake: never Patient Tobacco Use Status: Never used Tobacco Tobacco use type: Cigarette Years Smoked: parent and smoker e-Cigarette/Vaping Use: Never Used Second Hand Smoke Exposure: Yes Advance Directives Date on File: 08/16/20 service: No Current occupational status: retired Current occupation: right hand Cognitive needs: No Hearing needs: Yes (hearing aides) Vision needs: Yes (Glasses) Questionnaire PHQ-9 Over the last 2 weeks, how often have you been bothered by any of the following problems? 1. Little interest or pleasure in doing things: more than half the days 2. Feeling down, depressed, or hopeless: several days 3. Trouble falling or staying asleep, or sleeping too much: not at all 4. Feeling tired or having little energy: more than half the days 5. Poor appetite or overeating: not at all 6. Feeling bad about yourself - or that you are a failure or have let yourself or your family down: not at all 7. Trouble concentrating on things, such as reading the newspaper or watching television: more than half the days 8. Moving or speaking so slowly that other people could have noticed. Or the opposite - being so fidgety or restless that you have been moving around a lot more than usual: not at all 9. Thoughts that you would be better off or of hurting yourself in some way: not at all Total score: 7 Depression Screening Interpretation: Positive Depression Screening Done: Yes Source: Developed by Drs. Augie Espinoza, Yue Griffin, Michael Gallo and colleagues, with an educational aniya from [employer]. Thrive Questionnaire Date Thrive assessed: 03/29/25 I am a: Patient What is your living situation today?: I have a steady place to live Within the past 12 months, did the food you bought not last and you didn't have the money to get more?: Never true Within the past 12 months, did you worry whether your food would run out before you got money to buy more?: Never true Do you have trouble paying for medicines?: No Do you have trouble getting transportation to medical appointments?: No Do you have trouble paying your heating and electricity bill?: No Do you have trouble taking care of your child, family member or friend?: No Do you have trouble with day-to-day activities such as bathing, preparing meals, shopping, managing finances, etc.?: No Are you currently unemployed and looking for a job?: No Are you interested in more education?: No Please select the resources that you would like help with: None Currently or been in a relationship where the following occur: No concerns reported THRIVE Score: 0 AUDIT C Alcohol Use Questionnaire (AUDIT-C) 1. How often do you have a drink containing alcohol?: Never Total Score: 0 SAVANNAH-7 AMB Questionnaire SAVANNAH-7 Date SAVANNAH - 7 assessed: 03/29/25 Feeling nervous, anxious, or on edge: 1 = Several days Not being able to stop or control worryin = Several days Worrying too much about different things: 1 = Several days Trouble relaxin = Several days Being so restless that it is hard to sit still: 0 = Not at all Becoming easily annoyed or irritable: 2 = More than half the days Feeling afraid as if something awful might happen: 2 = More than half the days Total SAVANNAH-7 score (0-4 normal; 5-9 mild; 10-14 moderate; 15-21 severe): 8 Source: Developed by Drs. Augie Espinoza, Yue Griffin, Michael Gallo and colleagues, with an educational aniya from [employer]. SAAVNNAH-7 Assessment Billing SAVANNAH-7 Assessment Tool: SAVANNAH-7 Assessment 41808 Physical exam (Primary Care) Vital Signs: Last Vital Signs Pulse 71 03/29/25 09:18 BP 130/62 03/29/25 09:18 Pulse Ox 97 03/29/25 09:18 Oxygen Delivery Method Room Air 03/29/25 09:18 BMI result Body Mass Index 21.3 Tobacco/Smoking Status: Tobacco use Status Tobacco use date assessed 03/11/25 03/29/25 09:29 Patient Tobacco Use Status Never used Tobacco 03/29/25 09:29 Tobacco use type Cigarette 03/29/25 09:29 e-Cigarette/Vaping Use Never Used 03/29/25 09:29 PHQ-9: PHQ-9 Score PHQ-9: Total score 7 03/29/25 09:50 Depression Screening Interpretation: Positive Thrive Assessment: Date of Thrive Assessment Date Thrive assessed 03/29/25 03/29/25 09:29 Currently or been in a relationship where the following occur: No concerns reported Const General: alert; No acute distress Eyes Conjunctivae: conjunctivae normal Resp Auscultation: clear to auscultation bilaterally Cardio Rate: regular rate Rhythm: regular rhythm GI Inspection: Yes normal to inspection Extrem General: Yes normal to inspection and No edema Coding Level of Care Code Est Pt Level 4 (95359) Complex EM visit Add On G2211 Diagnoses Generalized anxiety disorder F41.1 History of CVA (cerebrovascular accident) Z86.73 Hyperlipidemia E78.5 SERG (obstructive sleep apnea) G47.33 Simple chronic bronchitis J41.0 COPD type: chronic bronchitis Chronic bronchitis type: simple Costochondritis M94.0 Knee pain, right M25.561 Additional Codes SAVANNAH-7 Assessment Billing - SAVANNAH-7 Assessment Tool: SAVANNAH-7 Assessment 68461 ([id number]) Assessment & Plan Assessment & Plan (1) Generalized anxiety disorder: Code(s): F41.1 - Generalized anxiety disorder Category: Medical Plan: Patient has been placed on buspirone r 2.5 mg once a day (2) History of CVA (cerebrovascular accident): Onset Date: ~2020 Comment: (right cerebellar hemisphere infarct - tx tPA 08/03/2021) Code(s): Z86.73 - Personal history of transient ischemic attack (TIA), and cerebral infarction without residual deficits Category: Medical Plan: Patient on Eliquis 5 mg twice a day and last blood work was in February 2025 (3) Hyperlipidemia: Code(s): E78.5 - Hyperlipidemia, unspecified Category: Medical Plan: Avoid fried foods, chicken skin, eggs, butter margarine, pastries and meat. Be it pork or beef they have a lot of cholesterol on atorvastatin 40 mg once a day (4) SERG (obstructive sleep apnea): Code(s): G47.33 - Obstructive sleep apnea (adult) (pediatric) Category: Medical (5) COPD (chronic obstructive pulmonary disease): Code(s): J44.9 - Chronic obstructive pulmonary disease, unspecified Category: Medical Qualifiers: COPD type: chronic bronchitis Chronic bronchitis type: simple Qualified Code(s): J41.0 - Simple chronic bronchitis Plan: Patient is on albuterol inhaler (6) Costochondritis: Code(s): M94.0 - Chondrocostal junction syndrome [Tietze] Category: Medical (7) Knee pain, right: Code(s): M25.561 - Pain in right knee Category: Medical Plan History of Present Illness The patient is a 79-year-old female presenting with anxiety management concerns. She reports a lifelong history of anxiety, notably exacerbated by personal and familial challenges. Her anxiety has been managed with medication, initially with Wellbutrin, which caused significant nausea and was subsequently replaced by buspirone 2.5 mg daily. While buspirone alleviates some anxiety, the patient continues to experience nausea, impacting her quality of life. She remains affected by stress and finds focusing difficult. Despite past memory concerns, testing revealed adequate recall, pointing to anxiety as possibly contributory. Health Maintenance - Continued monitoring and management of osteoporosis, COPD, and hypercholesterolemia through medications and lifestyle adjustments. - Discussion of regular exercise to strengthen musculoskeletal health and prevent further pain due to overactivity. - Encourage adherence to prescribed medications to manage GERD and obstructive sleep apnea symptoms. - Emphasize regular follow-up for all chronic conditions to monitor disease progression and medication efficacy. Social History - The patient has experienced anxiety since childhood due to family dynamics and life stressors. - She leads an active lifestyle and recently mentioned plans to travel, which she enjoys. 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 Review of Systems - Psychiatric: Reports anxiety, difficulty concentrating, feeling overwhelmed since childhood. - Gastrointestinal: Reports nausea associated with buspirone medication. - Musculoskeletal: Reports knee pain, particularly when active or engaging in physical movement. - Cognitive: Denies significant memory loss, although memory difficulty noted in past about forgetting details. Physical Exam - Cognitive Function- The patient demonstrated intact recall of three-item memory test and was oriented to time and place during cognitive assessment. Results - Labs: Blood work last completed in February 2025; results were not specified. - Imaging: X-ray of the right knee discussed, to be completed for assessment of knee pain. Plan The patient is instructed to trial Wellbutrin 100 mg nightly to address anxiety while minimizing nausea. A discussion on insurance coverage for the brand medication was held given its potential impact. An x-ray for the right knee is planned to investigate the pain, proposed knee brace use, and exercise suggestions to prevent discomfort. Continuation of atorvastatin, nasal steroids, and famotidine addresses cholesterol, COPD, and GERD, respectively, while regular evaluations are advised to ensure comprehensive care of her chronic conditions. Patient was informed and verbally consented to the use of an ambient scribe for clinic note documentation during this visit. Discussion Notes I discussed anxiety management, pivoting from the trial of buspirone to brand-specific Wellbutrin due to intolerable nausea. The implications on insurance coverage were reviewed meticulously. I emphasized the importance of not introducing new medications when planning travel to avoid unmanageable nausea impacts on lifestyle. Knee pain management strategies, including diagnostic imaging and potential ancillary aids, were conferred. Comprehensive chronic care management for osteoporosis, COPD, hypercholesterolemia, and GERD was reiterated, emphasizing the importance of adherence, ongoing assessment, and lifestyle modifications. Follow-up upon medication efficacy change and response were underscored as critical. Patient Instructions - Start Wellbutrin 100 mg brand-specific at night with food to help with anxiety; monitor how it affects you. - Get an x-ray of your right knee for further evaluation, and start using a knee brace if needed for support. - Continue to take your cholesterol, COPD, and GERD medications as directed. - Perform regular physical activity to enhance musculoskeletal health. - Keep a consistent follow-up schedule to ensure all medical conditions are well-managed. - Share any new symptoms or medication side effects that concern you. - Be cautious of any significant changes in symptoms, especially when traveling. Orders: Orders XR knee RT 2V Today M25.561 - Pain in right knee Medications: New Wellbutrin SR (bupropion HCl) BRAND SPECIFIC 100 mg PO BEDTIME 30 tabs 1RF NS F41.1 - Generalized anxiety disorder Discontinued buspirone BRAND NAME SPECIFIC BUSPAR Discontinued Reason: Patient Refused 5 mg PO BID 60 tabs 0RF NS F41.1 - Generalized anxiety disorder
--- OUTSIDE RECORDS SUMMARY | 2025-03-29 09:49 | XMS_ITS | Referral Summary ---
Author Organization [facility] Address [address] [place] [address] Care Team Providers Care White Metal Corrosion Proofer Name Role Phone Tariq Marleeelidia Marc Primary Care Provider [phone] Encounters Date Type Department Care Team Description 03/03/2025 9:30 AM EDT Follow-Up [facility] [address] [place], [place] [phone] Shoemaking Cutter: Carlos Diop MD Osteoporosis with current pathological fracture with routine healing, unspecified osteoporosis type, subsequent encounter (Primary Dx); High risk medication use; Closed fracture of right wrist with routine healing, subsequent encounter; Other osteoporosis without current pathological fracture from Last 3 Months Allergies Active Allergy [...] Description 06/15/2025 9:00 AM EDT Clinical Support [facility] [address] [place] [address] Shoemaking Cutter: Marlena Hurst 11/07/2025 9:30 AM EST Follow-Up [facility] [address] [place] [address] Shoemaking Cutter: Carlos Diop MD [address] [place] [address] Procedures * Due to [facility] law, this organization might not be sharing negative HIV tests. Procedure Name Priority Date/Time Associated Diagnosis Comments HM DEXA SCAN 10/31/2023 from Last 3 Months or Most Recently Relevant to Health Maintenance Results * Due to [facility] law, this organization might not be sharing negative HIV tests. * Dexa Scan (10/31/2023) Anatomical Region Laterality Modality Other 10/31/2023 us Onbase Scan [facility] Final Resu lt from Last 3 Months or Most Recently Relevant to Health Maintenance Insurance [facility] Care Teams White Metal Corrosion Proofer Relationship Specialty Start Date End Date Abby Potter [address] [facility] [place] [address] PCP - General Internal Medicine 04/14/24
== END 2025-03-29 10:24 | disposition home or self-care (01) ==
LOC: HO.HMCH 09:15
PROVIDERS: PCP Internal Medicine; Visit Provider Internal Medicine
DX: J41.0 Simple chronic bronchitis (principal); F41.1 Generalized anxiety disorder; Z86.73 Personal history of transient ischemic attack (TIA), and cerebral infarction without residual deficits; M94.0 Chondrocostal junction syndrome [Tietze]; E78.5 Hyperlipidemia, unspecified; G47.33 Obstructive sleep apnea (adult) (pediatric); M25.561 Pain in right knee

== ENCOUNTER → 2025-03-29 09:14 | Outpatient (BNVA) | payer MEDICARE, OTHER, SELFPAY | PROVIDERS: PCP Internal Medicine; Visit Provider Internal Medicine | DX: F41.1 Generalized anxiety disorder (principal); E78.5 Hyperlipidemia, unspecified; G47.33 Obstructive sleep apnea (adult) (pediatric); J41.0 Simple chronic bronchitis; M25.561 Pain in right knee; M94.0 Chondrocostal junction syndrome [Tietze]; Z86.73 Personal history of transient ischemic attack (TIA), and cerebral infarction without residual deficits | CPT/HCPCS: 96127; 99212 ==

== ENCOUNTER 2025-04-01 10:53 | Outpatient (REF) | payer MEDICARE, OTHER, SELFPAY ==
--- NOTE | ~2025-04-01 | XR_ITS ---
EXAMINATION: XR KNEE, RIGHT CLINICAL INFORMATION: M25.561 - Pain in right knee COMPARISON: None available. TECHNIQUE: Two views of the right knee. FINDINGS: No fracture, dislocation, or suspicious bone lesion. Normal alignment. Diffuse chondrocalcinosis of the medial lateral compartments. Mild joint space narrowing of the medial and lateral compartments. No evidence of joint effusion. Normal soft tissues. XR/XR knee RT 2V IMPRESSION: 1. Mild joint space narrowing medial and lateral compartments with associated chondrocalcinosis. 2. No evidence of joint effusion. Electronically signed by: Jeffrey Ceja MD 04/01/2025 11:52 AM EDT
--- OUTSIDE RECORDS SUMMARY | 2025-04-01 11:44 | XMS_ITS | Encounter Summary ---
Author Organization [facility] Address [address] [place] [address] Care Team Providers Care Group President Name Role Phone Lavell Marcos MD Primary Care Provider [phone] Jennifer Sylvester MD Primary Care Provider [phone] [facility], Pcp Primary Care Provider Unavailabl e Encounter Details Date Type Department Care Team Description 08/17/2020 [facility] Report Medical Records [address] [place] [address] Maggy Betancur Social History Tobacco Use Types [...] on filedocumented in this encounter Care Teams Group President Relationship Specialty Start Date End Date Lavell Marcos MD [address] [place] [address] PCP - General 04/06/07 02/08/21 Jennifer Sylvester MD [address] [place] [address] PCP - General Internal Medicine 02/09/21 01/22/23 [facility], Pcp [address] [place] [address] [place] [address] PCP - General Internal Medicine 01/23/23 documented as of this encounter
== END 2025-04-01 10:54 | disposition home or self-care (01) ==
LOC: HO.XRAY 10:53
PROVIDERS: PCP Internal Medicine; Visit Provider Internal Medicine
DX: M25.561 Pain in right knee (principal)
CPT/HCPCS: 73560

== ENCOUNTER → 2025-04-01 10:57 | Outpatient (BNV) | payer MEDICARE, OTHER, SELFPAY | PROVIDERS: PCP Internal Medicine; Visit Provider Radiology Diagnostic Radiology | DX: M17.11 Unilateral primary osteoarthritis, right knee (principal) | CPT/HCPCS: 73560 ==

== ENCOUNTER → 2025-04-22 07:45 | Outpatient (BNV) | payer MEDICARE, OTHER, SELFPAY | PROVIDERS: PCP Internal Medicine; Visit Provider Radiology Diagnostic Radiology | DX: R90.82 White matter disease, unspecified (principal) | CPT/HCPCS: 70551 ==

== ENCOUNTER 2025-04-22 07:56 | Outpatient (REF) | payer MEDICARE, OTHER, SELFPAY ==
--- NOTE | ~2025-04-22 | MR_ITS ---
EXAMINATION: MR BRAIN WITHOUT CONTRAST CLINICAL INFORMATION: Memory change. COMPARISON: CT brain 02/02/2025 and MRI brain 02/02/2025 TECHNIQUE: MRI of the brain was obtained using routine sequences without contrast. FINDINGS: There is no restricted diffusion seen to suspect acute ischemic changes. There are scattered T2 signal changes in the deep white matter of both cerebral hemispheres. Some of these lesions are perpendicular to lateral ventricles likely old demyelinating disease. The lateral ventricles are symmetrical in size and configuration with mild enlargement . Both lateral ventricles are enlarged but symmetrical. The temporal horns are normal caliber. There is normal symmetry of temporal lobes. There is no white matter changes seen along the mesial temporal lobe. Normal flow-void signal seen in major cerebral vasculature. There is a small polyp or retention cyst left maxillary sinus. There are T2 signal changes in bilateral ethmoid and frontal sinuses. Normal flow-void signal seen in major cerebral vasculature. MR/MR head/brain wo con IMPRESSION: Diffuse T2 signal changes in subcortical white matter both cerebral hemispheres without mass effect or edema. Some of the lesions are perpendicular to lateral ventricle and may represent edema indices. There is mild cerebral volume loss with mild cortical thinning. Electronically signed by: Kelvin Patel MD 04/22/2025 02:41 PM EDT
--- OUTSIDE RECORDS SUMMARY | 2025-04-22 07:58 | XMS_ITS | Referral Summary ---
Author Organization [facility] Address [address] [place] [address] Care Team Providers Care Sales And Distribution Clerk Name Role Phone TariqMarleeelidia Marc Primary Care Provider [phone] Encounters Date Type Department Care Team Description 03/03/2025 9:30 AM EDT Follow-Up [facility] [address] [place], [place] [phone] Director Of Consulting Services: Carlos Diop MD Osteoporosis with current pathological [...] 2 puffs by mouth daily. 3 Active butalbital-acet aminophen-caffe ine (FIORICET) 50-325-40 mg [...] 32 gm/day total 100 g 2 5 08/30/20 25 Active Active Problems Problem Noted Date Diagnosed [...] 79 03/03/2025 9:18 AM EDT Temperature 36.8 C (98.3 F) 03/03/2025 9:18 AM EDT Respiratory Rate - - Oxygen Saturation - - Inhaled Oxygen Concentration - - Weight 49.9 kg (110 lb) 03/03/2025 9:18 AM EDT Height 152.4 cm (5') 08/31/2024 9:36 AM EDT Body Mass Index 21.48 08/31/2024 9:36 AM EDT Plan of Treatment Upcoming Encounters Date Type Department Care Team (Late st Contact Info) Description 06/15/2025 9:00 AM EDT Clinical Support [facility] [address] [place] [address] Director Of Consulting Services: Marlena Hurst 11/07/2025 9:30 AM EST Follow-Up [facility] [address] [place] [address] Director Of Consulting Services: Carlos Diop MD [address] [place] [address] Procedures * Due to [place] law, this organization might not be sharing negative HIV tests. Procedure Name Priority Date/Time Associated Diagnosis Comments DEXA SCAN 10/31/2023 from Last 3 Months or Most Recently Relevant to Health Maintenance Results * Due to [facility] law, this organization might not be sharing negative HIV tests. * Dexa Scan (10/31/2023) Anatomical Region Laterality Modality Other 10/31/2023 us Onbase Scan [facility] Final Resu lt from Last 3 Months or Most Recently Relevant to Health [place] [id number] [facility] Care Teams Sales And Distribution Clerk Relationship Specialty Start Date End Date Abby Potter [address] [facility] [place] [address] PCP - General Internal Medicine 04/14/24
== END 2025-04-22 07:57 | disposition home or self-care (01) ==
LOC: HO.MRI 07:56
PROVIDERS: PCP Internal Medicine; Visit Provider Psychiatry & Neurology Neurology
DX: R41.3 Other amnesia (principal)
CPT/HCPCS: 70551

== ENCOUNTER 2025-05-02 10:36 | Emergency (ER) | payer MEDICARE, OTHER, SELFPAY ==
--- NOTE | ~2025-05-02 | XR_ITS ---
Exam: 2 view x-ray left tibia and fibula. TECHNIQUE: AP and lateral x-rays lower extremity INDICATION: Pain, bump Prior: None FINDINGS: Amorphous calcific density is visible in the knee joint line. No other abnormalities are evident. XR/XR tibia fibula LT 2V IMPRESSION: Moderate calcium pyrophosphate deposition in the knee joint line. Electronically signed by: Adis Velasquez MD 05/02/2025 01:06 PM EDT
--- NOTE | ~2025-05-02 | CT_ITS ---
EXAMINATION: CT HEAD WITHOUT CONTRAST CLINICAL INFORMATION: eliquis use headache COMPARISON: February 2025 TECHNIQUE: Contiguous axial imaging was performed from the skull base to vertex without intravenous administration of contrast. This CT examination was performed using dose optimization techniques as appropriate, variously including the following: *Automated exposure control *Adjustment of mA and/or kV according to patient size (this includes techniques or standardized protocols for targeted exams where dose is matched to indication/reason for exam; i.e. extremities or head) *Use of iterative reconstruction technique DLP: 615 mGy-cm FINDINGS: No acute cortical disruption in the bony calvarium or the skull base. No acute intracranial hemorrhage, mass effect, midline shift, hydrocephalus or herniation. Vela-white matter differentiation is normal. Bilateral multifocal patchy and confluent deep periventricular white matter hypodensities involving centrum semiovale and hi radiata. Prominence of the extra-axial CSF spaces cerebral sulci and ventricles. Calcified plaques in the cavernous supracavernous segments both ICAs and V4 segments of the vertebral arteries. Post surgical changes in the paranasal sinuses related to bilateral inferior ethmoidectomies and medial maxillary antrostomies. CT/CT head/brain wo IV con IMPRESSION: No acute fracture or bony calvarium. No acute intracranial hemorrhage. Small vessel occlusive disease Global cerebral atrophy. Atherosclerosis disease.. Electronically signed by: Jeison Maynard MD 05/02/2025 11:56 AM EDT
--- NOTE | 2025-05-02 10:52 | ED_ITS ---
HPI - General Adult General Chief complaint: Eye Problems Stated complaint: thinks had a seizure r eye soreness Time Seen by Provider: 05/02/25 10:52 Source: patient and old records reviewed Mode of arrival: ambulatory Limitations: no limitations History of Present Illness ED Provider: REBECCA VEGA narrative: 79 yo female with PMH of anxiety, HLD, stroke, ocular migraines, PFO on eliquis, COPD, GERD who notes on she woke up and felt like something was funny in her R eye it bothered her. She denies change in vision but notes she saw blood in the white of her R eye. She denies numbness, weakness, pain, or any other concerns. She states she thinks she had a seizure. She states she wasn't sure and thought the blood was due to a seizure. She denies LOC, shaking episodes, confusion, incontinence. Just had nonspecific MRI in the past week. complaint: blood R eye Onset (ago): day(s) () Location: eyes Radiation: non-radiation Severity: mild Quality: dull Pain Consistency: intermittent Relieving factors: none Exacerbating factors: none Associated symptoms: denies other symptoms Treatments prior to arrival: none Related Data Home Medications ?Medication ?Instructions ?Recorded ?Confirmed nebulizers 02/26/23 03/29/25 Previous Rx's ?Medication ?Instructions ?Recorded lidocaine 4 % topical patch 1 patch transdermal DAILY #30 ea 08/06/21 (Lidocaine Pain Relief) tramadol 50 mg tablet 50 mg PO BID PRN pain 21 day s #42 01/24/23 tabs estradiol 0.01% (0.1 mg/gram) See Rx Instructions vagi nal DAILY 09/02/23 vaginal cream (Estrace) #42.5 grams albuterol sulfate 90 mcg/actuation 2 inh inhalation Q6 H PRN shortness 02/25/24 aerosol inhaler of breath or wheezing 30 day s #18 grams loratadine 10 mg tablet 10 mg PO DAILY PRN allergy 0 05/13/24 symptoms #30 tabs promethazine 12.5 mg tablet 12.5 mg PO Q6H PRN nausea and 07/23/24 vomiting #20 tabs polyethylene glycol 3350 17 17 g PO DAILY 30 days #510 grams 08/27/24 gram/dose oral powder (Miralax) Lexapro 10 mg tablet (escitalopram 10 mg PO DAILY #30 tabs 12/10/24 oxalate) cholecalciferol (vitamin D3) 50 See Rx Instructions .R oute 01/19/25 mcg (2,000 unit) capsule .COMPLEX #90 caps atorvastatin 40 mg tablet 40 mg PO DAILY #90 tabs 01/02 02/25 Eliquis 5 mg tablet (apixaban) 5 mg PO BID 90 days #18 0 tabs 02/15/25 famotidine 40 mg tablet (Pepcid) 40 mg PO BEDTIME #30 tabs 02/28/25 sennosides 8.6 mg-docusate sodium 2 tab-cap (2 x 8.6-5 0 mg) PO 03/11/25 50 mg tablet (Senna with Docusate BEDTIME 30 days #60 tabs Sodium) Wellbutrin SR 100 mg tablet, 12 hr 100 mg PO BEDTIME # 30 tabs 03/29/25 sustained-release (bupropion HCl) Allergies Allergy/AdvReac Type Severity Reaction Status Date / Time naproxen (From NAPROSYN) Allergy Severe sensitivity Verified 05/02/25 11:00 niacin (From NIASPAN Allergy Severe Rash Verified 05/02/25 11:00 EXTENDED-RELEASE) clarithromycin (From BIAXIN) Allergy Mild sensitivity Verified 05/02/25 11:00 codeine (CODEINE) Allergy Mild Itching Verified 05/02/25 11:00 esomeprazole (From Nexium) Allergy Mild Hives Verified 05/02/25 11:00 fluconazole (From DIFLUCAN) Allergy Mild sensitivity Verified 05/02/25 11:00 gatifloxacin (From TEQUIN) Allergy Mild sensitivity Verified 05/02/25 11:00 hydrocodone (From Vicodin) Allergy Mild Rash Verified 05/02/25 11:00 levofloxacin (From Levaquin) Allergy Mild sensitivity Verified 05/02/25 11:00 oxycodone (From Percocet) Allergy Mild Itching Verified 05/02/25 11:00 quinidine (QUINIDINE) Allergy Mild sensitivity Verified 05/02/25 11:00 Sulfa (Sulfonamide Allergy Mild Rash Verified 05/02/25 11:00 Antibiotics) (SULFA (SULFONAMIDE ANTIBIOTICS)) terfenadine (From SELDANE) Allergy Mild sensitivity Verified 05/02/25 11:00 tetracycline (TETRACYCLINE) Allergy Mild sensitivity Verified 05/02/25 11:00 cefaclor (From CECLOR) AdvReac Severe Unknown Verified 05/02/25 11:00 abaloparatide (From Tymlos) AdvReac Intermediate Dizziness Verified 05/02/25 11:00 bupropion (From Wellbutrin) AdvReac Intermediate Nausea Verified 05/02/25 11:00 cefdinir AdvReac Intermediate Stomach Verified 05/02/25 11:00 Upset montelukast (From Singulair) AdvReac Mild Headache Verified 05/02/25 11:00 topiramate (From TOPAMAX) AdvReac Mild Stomach Verified 05/02/25 11:00 Upset Review of Systems 2 Review of Systems: Constitutional : No Fever, No Chills, No Fatigue ENT/Mouth : No sore throat, No Rhinorrhea Eyes: No Eye Pain, No Swelling, pos Redness Cardiovascular : No Chest Pain, No SOB, No Dyspnea on Exertion Respiratory : No Cough, No Sputum Gastrointestinal : No Nausea, No Vomiting, No Diarrhea, No abdominal Pain Genitourinary : No Dysuria, No Urinary Frequency, No Hematuria, Musculoskeletal : No joint pain, No Myalgias, No Joint Swelling Skin : No Skin Lesions, No rash Neuro : No Weakness, No Numbness, No Dizziness, no Headache All other systems reviewed and are negative PMFSH Past Medical History Attestation statement: The following information was validated with the patient. Source: old records reviewed Medical History Chest pain Sinus congestion Cough Weight loss Polyarthralgia Fall Shoulder pain, right Back pain Nausea Palpitation Headache, post-traumatic, acute Scalp irritation Anemia Encounter for vitamin deficiency screening Renal cyst Dense breast Breast cancer screening by mammogram Acute bronchitis Ocular migraine Hyperlipidemia History of CVA (cerebrovascular accident) (~2020) Tubular adenoma of colon (~2005) SERG (obstructive sleep apnea) Nasal vestibulitis Degeneration, intervertebral disc, cervical Dry eye PONV (postoperative nausea and vomiting) Arthritis of neck Cerebral microvascular disease Atherosclerotic cardiovascular disease Precordial chest pain URI (upper respiratory infection) Overactive bladder Microscopic hematuria Urinary urgency Osteoporosis (~1999) Mycobacterial disease GERD (gastroesophageal reflux disease) Pulmonary nodules COPD (chronic obstructive pulmonary disease) Surgical History History of fusion of cervical spine History of sinus surgery History of colonoscopy History of esophagogastroduodenoscopy (EGD) History of bladder suspension procedure Family History Family History Son No problems noted. Social History Social History Household Members: Spouse Housing: [facility] Do you presently have visiting nurse or other home services: No Alcohol intake: never Patient Tobacco Use Status: Never used Tobacco Tobacco use type: Cigarette Years Smoked: parent and smoker e-Cigarette/Vaping Use: Never Used Second Hand Smoke Exposure: Yes Advance Directives: Yes Advance Directives on File: Yes Advance Directives Date on File: 08/16/20 service: No Current occupational status: retired Current occupation: right hand Cognitive needs: No Hearing needs: Yes (hearing aides) Vision needs: Yes (Glasses) Physical Exam ED Vital Signs: Vital Signs - 24 hr 05/02/25 10:55 05/02/25 12:58 Temperature 98.6 F 98.7 F Pulse Rate 81 75 Respiratory Rate 16 Blood Pressure 133/41 L 120/41 L Pulse Oximetry 96 97 Oxygen Delivery Method Room Air Room Air BMI result Body Mass Index 21.1 Appearance: Alert. Oriented X3. No acute distress. Eyes: Pupils equal, round and reactive to light. ENT: Pharynx normal. R eye moderate subconj hemorrhage - pupils normal, no loss of vision, EOMi, external structures normal, L eye normal, IOP R eye 21 no hyphema Neck: Normal inspection. Neck supple. CVS: Normal heart rate and rhythm. Pulses normal. Respiratory: No respiratory distress. Breath sounds normal. Abdomen: Soft and nontender. Skin: Skin warm and dry. Normal skin color. Normal skin turgor. Extremities: No lower extremity edema. L anterior rivers small nickel sized bump that is tender but no fluctuance, no redness, no warmth Neuro: Oriented X 3. No motor deficit. No sensory deficit. CN2-12 intact Medical Decision Making Medical Decision Making MDM Narrative: 79 yo female with PMH of anxiety, HLD, stroke, ocular migraines, PFO on eliquis, COPD, GERD who thinks she had a seizure but when asked why it is because she woke up with a subconj hemorrhage but no other features such as LOC, confusion, incontinence or any abnormal movements at this time will check pressures, obtain CT head for mass, check her platelets. Her pressures are only 21 without eye pain or vision changes will have her follow up with optho. She is otherwise stable. Leg has small contusion but no overlying cellulitis - xray ordered to assess for underlying growth. Differential Diagnosis Differential Diagnoses: The differential diagnosis associated with the presentation includes subconj hemorrhage, thrombocytopenia Admission/Observation Consideration of admission/observation: Escalation of care including admission/observation considered negative work up stable for DC Lab Data [facility] Lab Attestation statement: I reviewed the patient's lab results. 05/02/25 11:26 05/02/25 11:26 Labs: Lab Results 05/02/25 Range/Units 11:26 WBC 7.6 (4.8-10.8) X10*3/uL RBC 3.86 L (4.20-5.50) X10*6/uL Hgb 11.9 L (12.0-16.0) g/dl Hct 35.4 L (37.0-47.0) % MCV 91.7 (80.0-98.0) fL MCH 30.8 (27.0-33.0) pg MCHC 33.6 (31.0-35.0) g/dl RDW 13.2 (11.0-16.0) % Plt Count 240 (160-400) X10*3/uL MPV 9.1 L (9.4-12.3) fL Immature Gran % (Auto) 0.4 (0.0-0.4) % Neut % (Auto) 66.4 (45-73) % Lymph % (Auto) 19.0 L (20-40) % Kingfisher % (Auto) 10.7 (2-11) % Eos % (Auto) 2.7 (0-4) % Baso % (Auto) 0.8 (0-2) % Lymph # (Auto) 1.5 (1.2-4.9) X10*3/uL Kingfisher # (Auto) 0.8 (0.1-1.2) X10*3/uL Eos # (Auto) 0.2 (0.0-0.4) X10*3/uL Baso # (Auto) 0.1 (0.0-0.2) X10*3/uL Abs Immat Gran (auto) 0.03 (0.00-0.03) X10*3/uL Absolute Neuts (auto) 5.1 (2.0-8.3) x10*3/uL Absolute Nucleated RBC 0.000 (0.0-0.012) X10*3/uL Nucleated RBC % (auto) 0.0 (0.0-0.2) /100WBC PT 14.8 H (10.9-12.4) SEC INR 1.3 H (0.9-1.1) Sodium 140 (135-145) mmol/L Potassium 3.5 (3.3-5.1) mmol/L Chloride 107 (96-108) mmol/L Carbon Dioxide 26 (22-29) mmol/L Anion Gap 11 L (12-20) BUN 12 (9-16) mg/dL Creatinine 0.66 (0.5-1.4) mg/dL Estim Creat Clear Calc 51.3 Estimated GFR > 60 Random Glucose 87 (60-115) mg/dL Calcium 9.2 (8.4-10.2) mg/dL Magnesium 2.1 (1.6-2.6) mg/dL Total Bilirubin 0.8 (0.0-1.0) mg/dL Direct Bilirubin 0.3 (0.0-0.5) mg/dL AST 21 (5-31) U/L ALT 8 (0-31) U/L Alkaline Phosphatase 75 (39-117) U/L Total Protein 6.4 L (6.5-8.0) g/dL Albumin 4.2 (3.5-5.0) g/dL Independent Interpretation I performed an independent interpretation of an: Plain X-Ray (no acute cause of pain) and CT Scan (no ICH) Radiology Impression Discussion of test interpretation with radiology: I have reviewed the radiologist's reading. Independent Historian Clinical information obtained from an independent historian. History obtained from or confirmed by: Spouse External Record Review External record reviewed: Inpatient record and Outpatient record Discharge Plan Discharge Clinical Impression: ANNY (subconjunctival hemorrhage) Qualifiers: Laterality: right Qualified Code(s): H11.31 - Conjunctival hemorrhage, right eye Contusion of left leg Qualifiers: Encounter type: initial encounter Qualified Code(s): S80.12XA - Contusion of left lower leg, initial encounter Patient Disposition: Home, Self-Care Instructions: Contusion in Adults (ED) Additional Instructions: your labs are reassuring CT head no acute findings xray of left leg no acute findings but there is a small calcium deposits on your knee joint line your eye will take a while to heal - you should follow up with your eye doctor it will take time for the bleeding to absorb return for loss of vision, numbness, weakness or any other concerns. monitor your leg for any signs of redness, warmth, increased swelling near the contusion. follow up with your neurologist as planned. Prescriptions: No Action tramadol 50 mg tablet 50 mg PO BID PRN (Reason: pain) 21 Days Qty: 42 0RF Rx Instructions: ULTRAM Brand name estradiol [Estrace] 0.01 % (0.1 mg/gram) cream See Rx Instructions vaginal DAILY Qty: 42.5 0RF Rx Instructions: pea size amount to urethra vaginally daily promethazine 12.5 mg tablet 12.5 mg PO Q6H PRN (Reason: nausea and vomiting) Qty: 20 0RF escitalopram oxalate [Lexapro] 10 mg tablet 10 mg PO DAILY Qty: 30 5RF Rx Instructions: Brand name only cholecalciferol (vitamin D3) 50 mcg (2,000 unit) capsule See Rx Instructions .ROUTE .COMPLEX Qty: 90 0RF Dose Instruction: TAKE 1 CAPSULE BY MOUTH DAILY Rx Instructions: TAKE 1 CAPSULE BY MOUTH DAILY atorvastatin 40 mg tablet 40 mg PO DAILY Qty: 90 1RF Eliquis 5 mg tablet 5 mg PO BID 90 Days Qty: 180 3RF lidocaine [Lidocaine Pain Relief] 4 % Adhesive Patch,Medicated 1 patch transdermal DAILY Qty: 30 0RF Protocol: Apply to: Apply to: R shoulder loratadine 10 mg tablet 10 mg PO DAILY PRN (Reason: allergy symptoms) Qty: 30 2RF (DME) nebulizers Misc See Rx Instructions .Route Rx Instructions: As directed polyethylene glycol 3350 [Miralax] 17 gram/dose powder 17 g PO DAILY 30 Days Qty: 510 4RF albuterol sulfate 90 mcg/actuation HFA aerosol inhaler 2 inh inhalation Q6H PRN (Reason: shortness of breath or wheezing) 30 Days Qty: 18 12RF famotidine [Pepcid] 40 mg tablet 40 mg PO BEDTIME Qty: 30 5RF sennosides-docusate sodium [Senna with Docusate Sodium] 8.6-50 mg tablet 2 tab-cap PO BEDTIME 30 Days Qty: 60 2RF bupropion HCl [Wellbutrin SR] 100 mg tablet sustained-release 12 hr 100 mg PO BEDTIME Qty: 30 1RF Rx Instructions: BRAND SPECIFIC Print Language: Turkish
[2025-05-02 10:55] VITALS: BP 133/41; PULSE 81; RESP 16; TEMP 37; O2SAT 96; BMI 21.1
[2025-05-02 11:34] LABS: MANUAL DIFF FLAG NO
[2025-05-02 11:40] LABS: Basophils Absolute Auto 0.1 X10*3/uL (0.0-0.2); Basophils Percent Auto 0.8 % (0-2); Eosinophils Absolute Auto 0.2 X10*3/uL (0.0-0.4); Eosinophils Percent Auto 2.7 % (0-4); Hematocrit 35.4 % (37.0-47.0); Hemoglobin 11.9 g/dl (12.0-16.0); Imm Gran Abs Auto 0.03 X10*3/uL (0.00-0.03); Imm Gran Pct Auto 0.4 % (0.0-0.4); Lymphocytes Absolute Auto 1.5 X10*3/uL (1.2-4.9); Mean Corpuscular HGB Conc 33.6 g/dl (31.0-35.0); Mean Corpuscular Hemoglobin 30.8 pg (27.0-33.0); Mean Corpuscular Volume 91.7 fL (80.0-98.0); Mean Platelet Volume 9.1 fL (9.4-12.3); Monocytes Absolute Auto 0.8 X10*3/uL (0.1-1.2); Monocytes Percent Auto 10.7 % (2-11); Neutrophils Absolute Auto 5.1 x10*3/uL (2.0-8.3); Neutrophils Percent Auto 66.4 % (45-73); Platelet Count 240 X10*3/uL (160-400); Red Blood Count 3.86 X10*6/uL (4.20-5.50); Red Cell Distribution Width 13.2 % (11.0-16.0); White Blood Count 7.6 X10*3/uL (4.8-10.8)
[2025-05-02 11:44] LABS: INTERNATIONAL NORM RATIO 1.3 (0.9-1.1); Prothrombin Time 14.8 SEC (10.9-12.4)
[2025-05-02 11:50] LABS: Alanine Aminotransferase 8 U/L (0-31); Albumin Level 4.2 g/dL (3.5-5.0); Alkaline Phosphatase 75 U/L (39-117); Anion Gap 11 (12-20); Aspartate Amino Transferase 21 U/L (5-31); Bilirubin Direct 0.3 mg/dL (0.0-0.5); Bilirubin Total 0.8 mg/dL (0.0-1.0); Blood Urea Nitrogen 12 mg/dL (9-16); Calcium 9.2 mg/dL (8.4-10.2); Carbon Dioxide 26 mmol/L (22-29); Chloride 107 mmol/L (96-108); Creatinine Clr Calc Pharmacy 51.3; Estimated Glomerular Filt Rate > 60; Glucose Random 87 mg/dL (60-115); Magnesium 2.1 mg/dL (1.6-2.6); Potassium 3.5 mmol/L (3.3-5.1); Sodium 140 mmol/L (135-145); Total Protein 6.4 g/dL (6.5-8.0)
[2025-05-02 12:58] VITALS: BP 120/41; PULSE 75; TEMP 37.1; O2SAT 97
[2025-05-02 13:47] VITALS: BP 120/41; PULSE 75; RESP 16; TEMP 37.1; O2SAT 97
== END 2025-05-02 13:47 | disposition home or self-care (01) ==
PROVIDERS: Emergency Provider Emergency Medicine; PCP Internal Medicine
DX: H11.31 Conjunctival hemorrhage, right eye (principal); S80.12XA Contusion of left lower leg, initial encounter; W19.XXXA Unspecified fall, initial encounter; Y93.9 Activity, unspecified; Y92.9 Unspecified place or not applicable; Y99.9 Unspecified external cause status
CPT/HCPCS: 36415; 70450; 73590; 80048; 80076; 83735; 85025; 85610; 99283; 99284

== ENCOUNTER → 2025-05-02 10:59 | Outpatient (BNV) | payer MEDICARE, OTHER, SELFPAY | PROVIDERS: Emergency Provider Emergency Medicine; PCP Internal Medicine; Visit Provider Radiology Diagnostic Radiology | DX: I67.89 Other cerebrovascular disease (principal); G31.9 Degenerative disease of nervous system, unspecified; M71.462 Calcium deposit in bursa, left knee | CPT/HCPCS: 70450 ==

== ENCOUNTER 2025-05-04 15:19 | Outpatient (AMB) | payer MEDICARE, OTHER, SELFPAY ==
--- NOTE | 2025-05-04 15:21 | A.OFFVIS_ITS ---
Intake Visit Reasons: results review Allergies naproxen (From NAPROSYN) Allergy (Severe, Verified 05/02/25 11:00) sensitivity niacin (From NIASPAN EXTENDED-RELEASE) Allergy (Severe, Verified 05/02/25 11:00) Rash clarithromycin (From BIAXIN) Allergy (Mild, Verified 05/02/25 11:00) sensitivity codeine (CODEINE) Allergy (Mild, Verified 05/02/25 11:00) Itching esomeprazole (From Nexium) Allergy (Mild, Verified 05/02/25 11:00) Hives fluconazole (From DIFLUCAN) Allergy (Mild, Verified 05/02/25 11:00) sensitivity gatifloxacin (From TEQUIN) Allergy (Mild, Verified 05/02/25 11:00) sensitivity hydrocodone (From Vicodin) Allergy (Mild, Verified 05/02/25 11:00) Rash levofloxacin (From Levaquin) Allergy (Mild, Verified 05/02/25 11:00) sensitivity oxycodone (From Percocet) Allergy (Mild, Verified 05/02/25 11:00) Itching quinidine (QUINIDINE) Allergy (Mild, Verified 05/02/25 11:00) sensitivity Sulfa (Sulfonamide Antibiotics) (SULFA (SULFONAMIDE ANTIBIOTICS)) Allergy (Mild, Verified 05/02/25 11:00) Rash terfenadine (From SELDANE) Allergy (Mild, Verified 05/02/25 11:00) sensitivity tetracycline (TETRACYCLINE) Allergy (Mild, Verified 05/02/25 11:00) sensitivity cefaclor (From CECLOR) Adverse Reaction (Severe, Verified 05/02/25 11:00) Unknown abaloparatide (From Tymlos) Adverse Reaction (Intermediate, Verified 05/02/25 11:00) Dizziness bupropion (From Wellbutrin) Adverse Reaction (Intermediate, Verified 05/02/25 11:00) Nausea cefdinir Adverse Reaction (Intermediate, Verified 05/02/25 11:00) Stomach Upset montelukast (From Singulair) Adverse Reaction (Mild, Verified 05/02/25 11:00) Headache topiramate (From TOPAMAX) Adverse Reaction (Mild, Verified 05/02/25 11:00) Stomach Upset Medication List - Last Reconciled 05/04/25 by Mirta Sandoval MD albuterol sulfate 90 mcg/actuation 2 inhalations inhalation Q6H PRN 30 days atorvastatin 40 mg PO DAILY cholecalciferol (vitamin D3) TAKE 1 CAPSULE BY MOUTH DAILY Eliquis (apixaban) 5 mg PO BID 90 days NS estradiol 0.01%(0.1mg/gram) (Estrace) pea size amount to urethra vaginally daily famotidine (Pepcid) 40 mg PO BEDTIME Lexapro (escitalopram oxalate) 10 mg PO DAILY NS lidocaine 4% (Lidocaine Pain Relief) 1 patch See Protocol transdermal DAILY loratadine 10 mg PO DAILY PRN nebulizers As directed polyethylene glycol 3350 (Miralax) 17 grams PO DAILY 30 days promethazine 12.5 mg PO Q6H PRN NS sennosides-docusate sodium 8.6-50 mg (Senna with Docusate Sodium) 2 tab-caps (2 x 8.6-50 mg) PO BEDTIME 30 days tramadol 50 mg PO BID PRN 21 days Wellbutrin SR (bupropion HCl) 100 mg PO BEDTIME NS HPI Comments Details: Right subconjuctival hemorrhage on 05/02/25- she woke up with a red right eye and went to [facility]. I have followed for many years for Chronic left frontal and orbital pain . She still has some tenderness off and on in the right scalp. On rare occasions,?gets left eye pain. She reports some memory concerns, but her memory has been stable. Some forgetfulness with names that don't come to her as quick. Sleep was okay. In August 2021, she had a small acute stroke in the right cerebellum with speech impediment for a couple of hours and was given tPA and found to have PFO. Started Eliquis. She also has a lot of optical migraines. She had cervical fusion in February 2019. Has a lot of arthritis. H/O depression but intolerant to most antidepressants. She's had cardiac workup including cardiac catheter which was normal, pulmonary function tests which were normal, including vital capacity. Nerve conduction EMG study was normal. ? hyperventilation syndrome related to anxiety. She tells me that her oximeter shows almost 100% O2 saturation as well. She has chronic migraines and was on Botox injections in the past. She has had good response to the Botox. Had normal JAE on the left. She reports some blurred vision in the left eye from dry eye . Her BONNIE was borderline without significant jrnv-sr-ihft difference. 04/22/25 MRI brain: Diffuse T2 signal changes in subcortical white matter both cerebral hemispheres without mass effect or edema. Some of the lesions are perpendicular to lateral ventricle. 05/02/25 CT brain normal except for atrophy globally. 02/02/25 CTA of head and neck normal. Labs normal. 04/29/25 Waking EEG normal. [facility] Medical History (Updated 05/04/25 @ 15:27 by Mirta Sandoval MD) Hiatal hernia Anxiety and depression Neck pain Cervical disc disease Muscle tension headache Paresthesia of skin MCI (mild cognitive impairment) with memory loss Vertigo Myopathy Unspecified optic neuritis Memory change Mgrn w aura w intrc mgrn Sinusitis Stroke Migraine Carpal tunnel syndrome Hemiparesis Chest pain Sinus congestion Cough Weight loss Polyarthralgia Fall Shoulder pain, right Back pain Nausea Palpitation Headache, post-traumatic, acute Scalp irritation Anemia Encounter for vitamin deficiency screening Renal cyst Dense breast Breast cancer screening by mammogram Acute bronchitis Ocular migraine Hyperlipidemia History of CVA (cerebrovascular accident) (~2020) Tubular adenoma of colon (~2005) SERG (obstructive sleep apnea) Nasal vestibulitis Degeneration, intervertebral disc, cervical Dry eye PONV (postoperative nausea and vomiting) Arthritis of neck Cerebral microvascular disease Atherosclerotic cardiovascular disease Precordial chest pain URI (upper respiratory infection) Overactive bladder Microscopic hematuria Urinary urgency Osteoporosis (~1999) Mycobacterial disease GERD (gastroesophageal reflux disease) Pulmonary nodules COPD (chronic obstructive pulmonary disease) Surgical History History of fusion of cervical spine History of sinus surgery History of colonoscopy History of esophagogastroduodenoscopy (EGD) History of bladder suspension procedure Family History Son No problems noted. Social History Household Members: Spouse Housing: Condominium Do you presently have visiting nurse or other home services: No Alcohol intake: never Patient Tobacco Use Status: Never used Tobacco Tobacco use type: Cigarette Years Smoked: parent and smoker e-Cigarette/Vaping Use: Never Used Second Hand Smoke Exposure: Yes Advance Directives Date on File: 08/16/20 service: No Current occupational status: retired Current occupation: right hand Cognitive needs: No Hearing needs: Yes (hearing aides) Vision needs: Yes (Glasses) Review of Systems Const Details: General/Constitutional:? Change in appetitedenies.? Fatigueadmits.? Feverdenies.? Weight gaindenies.? Weight lossdenies. ???Sleep:? Difficulty getting to sleepdenies.? Difficulty maintaining sleepdenies?.? Daytime sleepinessdenies. ???Respiratory:? Shortness of breathadmits.? Chest paindenies. ???Cardiovascular:? Chest pain at restdenies.? Chest pain with exertiondenies.? Dizzinessdenies.? Fluid accumulation in the legsdenies.? Irregular heartbeatdenies.? Palpitations denies. ???Gastrointestinal:? Constipationadmits.? Diarrheadenies.? Difficulty swallowingdenies.? Heartburn admits.? Nauseadenies. ???Genitourinary:? Frequent urinationdenies.? Urgencydenies.? Incontinencedenies. ???Musculoskeletal:? Neck painadmits.? Back paindenies.? Joint stiffnessdenies.? Sciaticadenies. ???Neurologic:? Difficulty swallowingdenies.? Balance difficultydenies.? Coordinationnormal.? Difficulty speakingdenies.? Dizzinessdenies.? Faintingdenies.? Gait abnormality denies.? Headacheadmits.? Loss of strengthdenies.? Loss of use of extremity denies.? Low back paindenies.? Memory lossadmits.? Seizuresdenies.? Ticsdenies.? Tingling/Numbnessbilateral upper extremities.? Transient loss of visiondenies.? Tremordenies. ???Psychiatric:? Anxietyadmits.? Auditory/visual hallucinationsdenies.? Delusionsdenies.? Depressed mooddenies.? Stressorsdenies.? Suicidal thoughtsdenies. Physical Exam Neuro Other: Neurological: Abnormal neurological findings:??MMS 28/30.?Mental Status:??alert and oriented X 3,?Normal attention, orientation, memory and affect.?Cranial Nerves:??Pupils are equal, round and reactive to light. Fundoscopy shows normal disc bilaterally. External occular muscles are intact. Visual limon are full, no ptosis. Face is symmetrical, no facial weakness or droop. Facial sensations are normal. Tongue protrudes in midline. Palate elevates symmetrically. Shoulder shrugging is normal..?Motor Examination:??Normal muscle tone, bulk and strength,?No atrophy or fasciculations,?No drift of the extended upper extremities,?Deep tendon reflexes are 2+?,?Plantars are flexor?.?Straight Leg Raising:??90 degrees.?Sensory Exam:??Normal light touch, temperature, pinprick, vibration and joint-position sensations?,?Rhomberg sign is absent.?Coordination:??no ataxia,?no titubation,?wiszsi-gt-vvth, xiyt-vuhr-umxg test and rapid alternating movements were normal.?Gait Exam:??Within normal limits.?Cerebellar Signs:??Mmupxn-ri-zuva and jwgg-mo-qdrn is normal,?no dysdiadochokinesia?.?Extrapyramidal System:??No tremor, rigidity with normal facial expressions,?No bradykinesia, no bradyphrenia. Normal arm swing and posture. No propulsion or retropulsion.?Speech:??Normal,?no dysphasia or dys arthria..? Mini Mental Status Exam: Level of Consciousness:??Alert.?Orientation:??Knows correct year, month, date, day and season,?Knows correct city, county and state. Knows correct location and floor.?Registration:??Able to register 3 objects.?Attention:??Serial 7's performed accurately.?Recall:??Able to recall 3 out of 3 objects.?Language:??Normal spontaneous speech, fluency, repetition,naming, comprehension, reading and writing.? Assessment & Plan Assessment & Plan (1) Memory change: Code(s): R41.3 - Other amnesia Category: Medical (2) History of CVA (cerebrovascular accident): Onset Date: ~2020 Comment: (right cerebellar hemisphere infarct - tx tPA 08/03/2021) Code(s): Z86.73 - Personal history of transient ischemic attack (TIA), and cerebral infarction without residual deficits Category: Medical (3) Ocular migraine: Code(s): G43.109 - Migraine with aura, not intractable, without status migrainosus Category: Medical (4) Cerebral microvascular disease: Code(s): I67.89 - Other cerebrovascular disease Category: Medical (5) Degeneration, intervertebral disc, cervical: Code(s): M50.30 - Other cervical disc degeneration, unspecified cervical region Category: Medical (6) Generalized anxiety disorder: Code(s): F41.1 - Generalized anxiety disorder Category: Medical (7) Patent foramen ovale: Code(s): Q21.1 - Atrial septal defect Category: Medical Plan Reviewed the MRI pictures with the patient. She has been reassured that she has no significant problem other than age-related atrophy and cerebral microvascular disease which was present even on MRIs 5 years ago with mild progression as expected. Her EEG is within normal limits. Her lab work was normal. She developed a subconjunctival hemorrhage on the right which will resolve in about 10 days. This is a normal consequence of being on Eliquis. I have told her not to rub her eyes to vigorous sleep. Patient has been reassured so that her anxiety does not act up. Coding Level of Care Code Est Pt Level 4 (56142) Diagnoses Memory change R41.3 History of CVA (cerebrovascular accident) Z86.73 Ocular migraine G43.109 Cerebral microvascular disease I67.89 Degeneration, intervertebral disc, cervical M50.30 Generalized anxiety disorder F41.1 Patent foramen ovale Q21.1
--- OUTSIDE RECORDS SUMMARY | 2025-05-04 15:35 | XMS_ITS | Referral Summary ---
Author Organization [facility] Address [address] [place] [address] Care Team Providers Care Rest Room Maid Name Role Phone TariqMarleeelidia Marc Primary Care Provider [phone] Encounters Date Type Department Care Team Description 04/22/2025 Orders Only [facility] [address] [place] [id number] Air Press Operator: Carlos Diop MD 03/03/2025 9:30 AM EDT Follow-Up [facility] [address] [place] [id number] Air Press Operator: Carlos Diop MD Osteoporosis with current pathological [...] tablet Take 40 mg by mouth nightly. Active Eliquis 5 mg tablet Take 5 [...] Description 06/15/2025 9:00 AM EDT Clinical Support [facility] [address] [place] [id number] Air Press Operator: Marlena Hurst 11/07/2025 9:30 AM EST Follow-Up [facility] [address] [place] [id number] Air Press Operator: Carlos Diop MD [address] [place] [id number] Procedures * Due to [place] [employer] law, this organization might not be sharing negative HIV tests. Procedure Name Priority Date/Time Associated Diagnosis Comments DEXA SCAN 10/31/2023 from Last 3 Months or Most Recently Relevant to Health Maintenance Results * Due to [place] [employer] law, this organization might not be sharing negative HIV tests. * Dexa Scan (10/31/2023) Anatomical Region Laterality Modality Other 10/31/2023 us Onbase Scan [facility] Final Resu lt from Last 3 Months or Most Recently Relevant to Health Maintenance Insurance MEDICARE [facility] SUPP Care Teams Rest Room Maid Relationship Specialty Start Date End Date Abby Potter [address] [facility] [place] [id number] PCP - General Internal Medicine 04/14/24
== END 2025-05-04 15:49 | disposition home or self-care (01) ==
LOC: HO.HSM 15:20
PROVIDERS: PCP Internal Medicine; Visit Provider Psychiatry & Neurology Neurology
DX: R41.3 Other amnesia (principal); Z86.73 Personal history of transient ischemic attack (TIA), and cerebral infarction without residual deficits; G43.109 Migraine with aura, not intractable, without status migrainosus; I67.89 Other cerebrovascular disease; M50.30 Other cervical disc degeneration, unspecified cervical region; F41.1 Generalized anxiety disorder; Q21.10 Atrial septal defect, unspecified
CPT/HCPCS: 99214

== ENCOUNTER → 2025-05-04 15:19 | Outpatient (BNVA) | payer MEDICARE, OTHER, SELFPAY | PROVIDERS: PCP Internal Medicine; Visit Provider Psychiatry & Neurology Neurology | DX: R41.3 Other amnesia (principal); I67.89 Other cerebrovascular disease; H57.12 Ocular pain, left eye; Z86.73 Personal history of transient ischemic attack (TIA), and cerebral infarction without residual deficits; G89.4 Chronic pain syndrome; G43.709 Chronic migraine without aura, not intractable, without status migrainosus; R29.818 Other symptoms and signs involving the nervous system; Z79.01 Long term (current) use of anticoagulants | CPT/HCPCS: 99212 ==

== ENCOUNTER 2025-05-20 09:51 | Outpatient (AMB) | payer MEDICARE, OTHER, SELFPAY ==
[2025-05-20 09:55] VITALS: BP 130/68; PULSE 67; RESP 16; TEMP 36.3; O2SAT 99; BMI 21.4
--- NOTE | 2025-05-20 09:55 | A.OFFPC_ITS ---
Vital Signs 05/20/25 09:55 Height 5 ft Weight 109 lb 6 oz BMI 21.4 BP 130/68 Blood Pressure Location Lt brachial Position Sitting Respiration 16 Pulse 67 Pulse Source Pulse Oximeter Temp 97.3 F Temp Source Temporal Artery Scan Pulse Oximetry (%) 99 Oxygen Delivery Method Room Air Intake Visit Reasons: LEft hand numbness Allergies naproxen (From NAPROSYN) Allergy (Severe, Verified 05/20/25 09:57) sensitivity niacin (From NIASPAN EXTENDED-RELEASE) Allergy (Severe, Verified 05/20/25 09:57) Rash clarithromycin (From BIAXIN) Allergy (Mild, Verified 05/20/25 09:57) sensitivity codeine (CODEINE) Allergy (Mild, Verified 05/20/25 09:57) Itching esomeprazole (From Nexium) Allergy (Mild, Verified 05/20/25 09:57) Hives fluconazole (From DIFLUCAN) Allergy (Mild, Verified 05/20/25 09:57) sensitivity gatifloxacin (From TEQUIN) Allergy (Mild, Verified 05/20/25 09:57) sensitivity hydrocodone (From Vicodin) Allergy (Mild, Verified 05/20/25 09:57) Rash levofloxacin (From Levaquin) Allergy (Mild, Verified 05/20/25 09:57) sensitivity oxycodone (From Percocet) Allergy (Mild, Verified 05/20/25 09:57) Itching quinidine (QUINIDINE) Allergy (Mild, Verified 05/20/25 09:57) sensitivity Sulfa (Sulfonamide Antibiotics) (SULFA (SULFONAMIDE ANTIBIOTICS)) Allergy (Mild, Verified 05/20/25 09:57) Rash terfenadine (From SELDANE) Allergy (Mild, Verified 05/20/25 09:57) sensitivity tetracycline (TETRACYCLINE) Allergy (Mild, Verified 05/20/25 09:57) sensitivity amitriptyline Allergy (Unknown, Verified 05/20/25 09:57) Unknown cefaclor (From CECLOR) Adverse Reaction (Severe, Verified 05/20/25 09:57) Unknown abaloparatide (From Tymlos) Adverse Reaction (Intermediate, Verified 05/20/25 09:57) Dizziness bupropion (From Wellbutrin) Adverse Reaction (Intermediate, Verified 05/20/25 09:57) Nausea cefdinir Adverse Reaction (Intermediate, Verified 05/20/25 09:57) Stomach Upset montelukast (From Singulair) Adverse Reaction (Mild, Verified 05/20/25 09:57) Headache topiramate (From TOPAMAX) Adverse Reaction (Mild, Verified 05/20/25 09:57) Stomach Upset Medication List - Last Reconciled 05/20/25 by Abby Potter MD abaloparatide (Tymlos) 80 mcg subcut DAILY albuterol sulfate 90 mcg/actuation 2 inhalations inhalation Q6H PRN 30 days atorvastatin 40 mg PO DAILY bupropion HCl SR (Wellbutrin SR) mg PO lzmksatwpn-bdbahlmttv-ohi-cod 24-848-00-30 mg 1 cap PO Q4H PRN cholecalciferol (vitamin D3) TAKE 1 CAPSULE BY MOUTH DAILY docusate sodium (Colace) 100 mg PO DAILY Eliquis (apixaban) 5 mg PO BID 90 days NS escitalopram oxalate (Lexapro) 10 mg PO DAILY estradiol 0.01%(0.1mg/gram) (Estrace) pea size amount to urethra vaginally daily famotidine (Pepcid) 40 mg PO BEDTIME Lexapro (escitalopram oxalate) 10 mg PO DAILY NS lidocaine 4% (Lidocaine Pain Relief) 1 patch See Protocol transdermal DAILY loratadine 10 mg PO DAILY PRN nebulizers As directed neomycin-polymyxin B-dexameth 3.5mg/mL-10,000 unit/mL-0.1 % drps ophthalmic (eye) polyethylene glycol 3350 (Miralax) 17 grams PO DAILY 30 days promethazine 12.5 mg PO Q6H PRN NS sennosides-docusate sodium 8.6-50 mg (Senna with Docusate Sodium) 2 tab-caps (2 x 8.6-50 mg) PO BEDTIME 30 days Symbicort 80-4.5 mcg/actuation (budesonide-formoterol) 2 puffs inhalation BID NS tramadol 50 mg PO BID PRN 21 days Wellbutrin SR (bupropion HCl) 100 mg PO BEDTIME NS Tobacco use date assessed: 05/20/25 Fall risk assessment: No Falls in past year Last assessed Fall Risk: 05/20/25 Dental Screening Dental Screen Date: 05/20/25 Did you have a dental visit in the last 12 months?: Yes Did you have a dental problem in the last 6 months where you did not have access to dental care?: No Was dental information given to patient?: Patient has dentist [facility] Medical History MCI (mild cognitive impairment) Migraine with aura, with intractable migraine, so stated, with status migrainosus Depression Hiatal hernia Anxiety and depression Neck pain Cervical disc disease Muscle tension headache Paresthesia of skin MCI (mild cognitive impairment) with memory loss Vertigo Myopathy Unspecified optic neuritis Memory change Mgrn w aura w intrc mgrn Sinusitis Stroke Migraine Carpal tunnel syndrome Hemiparesis Chest pain Sinus congestion Cough Weight loss Polyarthralgia Fall Shoulder pain, right Back pain Nausea Palpitation Headache, post-traumatic, acute Scalp irritation Anemia Encounter for vitamin deficiency screening Renal cyst Dense breast Breast cancer screening by mammogram Acute bronchitis Ocular migraine Hyperlipidemia History of CVA (cerebrovascular accident) (~2020) Tubular adenoma of colon (~2005) SERG (obstructive sleep apnea) Nasal vestibulitis Degeneration, intervertebral disc, cervical Dry eye PONV (postoperative nausea and vomiting) Arthritis of neck Cerebral microvascular disease Atherosclerotic cardiovascular disease Precordial chest pain URI (upper respiratory infection) Overactive bladder Microscopic hematuria Urinary urgency Osteoporosis (~1999) Mycobacterial disease GERD (gastroesophageal reflux disease) Pulmonary nodules COPD (chronic obstructive pulmonary disease) Surgical History History of fusion of cervical spine History of sinus surgery History of colonoscopy History of esophagogastroduodenoscopy (EGD) History of bladder suspension procedure Family History Son No problems noted. Social History Household Members: Spouse Housing: Condominium Do you presently have visiting nurse or other home services: No Alcohol intake: never Patient Tobacco Use Status: Never used Tobacco Tobacco use type: Cigarette Years Smoked: parent and smoker e-Cigarette/Vaping Use: Never Used Second Hand Smoke Exposure: Yes Advance Directives Date on File: 08/16/20 service: No Current occupational status: retired Current occupation: right hand Cognitive needs: No Hearing needs: Yes (hearing aides) Vision needs: Yes (Glasses) Questionnaire PHQ-9 Over the last 2 weeks, how often have you been bothered by any of the following problems? 1. Little interest or pleasure in doing things: more than half the days 2. Feeling down, depressed, or hopeless: several days 3. Trouble falling or staying asleep, or sleeping too much: not at all 4. Feeling tired or having little energy: more than half the days 5. Poor appetite or overeating: not at all 6. Feeling bad about yourself - or that you are a failure or have let yourself or your family down: not at all 7. Trouble concentrating on things, such as reading the newspaper or watching television: more than half the days 8. Moving or speaking so slowly that other people could have noticed. Or the opposite - being so fidgety or restless that you have been moving around a lot more than usual: not at all 9. Thoughts that you would be better off or of hurting yourself in some way: not at all Total score: 7 Depression Screening Interpretation: Positive Depression Screening Done: Yes Source: Developed by Drs. Augie Espinoza, Yue Griffin, Michael Gallo and colleagues, with an educational aniya from [employer]. Thrive Questionnaire Date Thrive assessed: 03/29/25 I am a: Patient What is your living situation today?: I have a steady place to live Within the past 12 months, did the food you bought not last and you didn't have the money to get more?: Never true Within the past 12 months, did you worry whether your food would run out before you got money to buy more?: Never true Do you have trouble paying for medicines?: No Do you have trouble getting transportation to medical appointments?: No Do you have trouble paying your heating and electricity bill?: No Do you have trouble taking care of your child, family member or friend?: No Do you have trouble with day-to-day activities such as bathing, preparing meals, shopping, managing finances, etc.?: No Are you currently unemployed and looking for a job?: No Are you interested in more education?: No Please select the resources that you would like help with: None Currently or been in a relationship where the following occur: No concerns reported THRIVE Score: 0 AUDIT C Alcohol Use Questionnaire (AUDIT-C) 1. How often do you have a drink containing alcohol?: Never 3. How often do you have six or more drinks on one occasion?: Never Total Score: 0 SAVANNAH-7 AMB Questionnaire SAVANNAH-7 Date SAVANNAH - 7 assessed: 03/29/25 Feeling nervous, anxious, or on edge: 1 = Several days Not being able to stop or control worryin = Several days Worrying too much about different things: 1 = Several days Trouble relaxin = Several days Being so restless that it is hard to sit still: 0 = Not at all Becoming easily annoyed or irritable: 2 = More than half the days Feeling afraid as if something awful might happen: 2 = More than half the days Total SAVANNAH-7 score (0-4 normal; 5-9 mild; 10-14 moderate; 15-21 severe): 8 Source: Developed by Drs. Augie Espinoza, Yue Griffin, Michael Gallo and colleagues, with an educational aniya from [employer]. Physical exam (Primary Care) Vital Signs: Last Vital Signs Temp 97.3 F 05/20/25 09:55 Pulse 67 05/20/25 09:55 Resp 16 05/20/25 09:55 BP 130/68 05/20/25 09:55 Pulse Ox 99 05/20/25 09:55 Oxygen Delivery Method Room Air 05/20/25 09:55 BMI result Body Mass Index 21.4 Tobacco/Smoking Status: Tobacco use Status Tobacco use date assessed 05/20/25 05/20/25 10:00 Patient Tobacco Use Status Never used Tobacco 05/20/25 10:00 Tobacco use type Cigarette 05/20/25 10:00 e-Cigarette/Vaping Use Never Used 05/20/25 10:00 PHQ-9: PHQ-9 Score PHQ-9: Total score 7 05/20/25 10:33 Depression Screening Interpretation: Positive Thrive Assessment: Date of Thrive Assessment Date Thrive assessed 03/29/25 05/20/25 10:00 Currently or been in a relationship where the following occur: No concerns reported Const General: alert; No acute distress Eyes Conjunctivae: conjunctivae normal Resp Auscultation: clear to auscultation bilaterally Cardio Rate: regular rate Rhythm: regular rhythm GI Inspection: Yes normal to inspection Extrem General: Yes normal to inspection and No edema Coding Level of Care Code Est Pt Level 4 (85268) Complex EM visit Add On G2211 Diagnoses History of CVA (cerebrovascular accident) Z86.73 Simple chronic bronchitis J41.0 COPD type: chronic bronchitis Chronic bronchitis type: simple Carpal tunnel syndrome G56.00 Gastroesophageal reflux disease with esophagitis without hemorrhage K21.00 Esophagitis bleeding: without hemorrhage Esophagitis presence: with esophagitis Hyperlipidemia E78.5 Generalized anxiety disorder F41.1 Assessment & Plan Assessment & Plan (1) History of CVA (cerebrovascular accident): Onset Date: ~2020 Comment: (right cerebellar hemisphere infarct - tx tPA 08/03/2021) Code(s): Z86.73 - Personal history of transient ischemic attack (TIA), and cerebral infarction without residual deficits Category: Medical Plan: Patient on anticoagulation with Eliquis (2) COPD (chronic obstructive pulmonary disease): Code(s): J44.9 - Chronic obstructive pulmonary disease, unspecified Category: Medical Qualifiers: COPD type: chronic bronchitis Chronic bronchitis type: simple Qualified Code(s): J41.0 - Simple chronic bronchitis Plan: On albuterol inhaler as needed (3) Carpal tunnel syndrome: Comment: February 2025 Mild right median neuropathy across carpal tunnel. 2. Mild right ulnar neuropathy across cubital tunnel. 3. Radiculopathy could not be ruled out because of lack of EMG data. Code(s): G56.00 - Carpal tunnel syndrome, unspecified upper limb Category: Medical Plan: Discussed about using brace for carpal tunnel syndrome (4) GERD (gastroesophageal reflux disease): Code(s): K21.9 - Gastro-esophageal reflux disease without esophagitis Category: Medical Qualifiers: Esophagitis bleeding: without hemorrhage Esophagitis presence: with esophagitis Qualified Code(s): K21.00 - Gastro-esophageal reflux disease with esophagitis, without bleeding Plan: Avoid the foods that causes that usually spicy foods, tomato products, juices, coffee, soda and foods that your sensitive to. After eating do not lie down, allow 3-4 hours before in lie down. And keep the head of bed above 30 degrees to avoid the acid from going up. (5) Hyperlipidemia: Code(s): E78.5 - Hyperlipidemia, unspecified Category: Medical Plan: Avoid fried foods, chicken skin, eggs, butter margarine, pastries and meat. Be it pork or beef they have a lot of cholesterol on atorvastatin 40 mg once a day (6) Generalized anxiety disorder: Code(s): F41.1 - Generalized anxiety disorder Category: Medical Plan: Patient is presently on Wellbutrin Lexapro. Plan History of Present Illness The patient is a 79-year-old female presenting for an acute problem. She has a history of osteoporosis, with the last bone density test conducted in October 2023. She also has a history of gastroesophageal reflux disease (GERD) and chronic obstructive pulmonary disease (COPD). The patient experienced a cerebrovascular accident (CVA) in 2020 and is currently on anticoagulation therapy with Eliquis. She developed a subconjunctival hemorrhage on the right side, which is expected to resolve as it is a normal consequence of being on anticoagulation therapy. She has hypercholesterolemia and is on atorvastatin 40 mg once a day. Her last cholesterol test in February showed an LDL level of 47 mg/dL. The patient has generalized anxiety disorder and is currently taking Wellbutrin and Lexapro. In April, she visited the emergency room due to concerns of a possible seizure, but the workup showed no significant issues other than mild anemia and low potassium levels. Her renal and liver functions are good, and her vitamin B12 level is mildly low. The patient reports right knee pain, with an x-ray showing mild joint space narrowing and chondrocalcinosis. She also experiences symptoms of carpal tunnel syndrome, for which the use of a brace was discussed. Health Maintenance - Bone density test conducted in October 2023 for osteoporosis monitoring - Cholesterol test in February with LDL level of 47 mg/dL - Vitamin B12 supplementation discussed due to mild deficiency - Potassium-rich diet recommended due to low potassium levels - Use of Symbicort inhaler for COPD management - Discussion on carpal tunnel syndrome management with brace Social History - Reports limited physical activity, primarily walking - Current diet includes grinders, steak, and macaroni salad Review of Systems - Respiratory: Reports dyspnea on exertion, uses inhaler as needed - Cardiovascular: Reports palpitations once a week, denies chest pain - Musculoskeletal: Reports right knee pain - Neurological: Denies recent falls, reports feeling off balance occasionally Physical Exam Results - Labs: Mild anemia with hemoglobin 11.9 g/dL, hematocrit 35.4% - Labs: Low potassium at 3.5 mmol/L - Imaging: X-ray of right knee showing mild joint space narrowing and chondrocalcinosis - Imaging: MRI showing atrial atrophy and cerebromicrovascular disease - EEG: Within normal limits Plan The patient will continue on her current medications, including atorvastatin for hypercholesterolemia and Eliquis for anticoagulation due to her history of cerebrovascular accident. She is advised to incorporate potassium-rich foods into her diet to address the low potassium levels and to take vitamin supplements for her mild deficiency. For her COPD, the patient will start using Symbicort inhaler twice daily to manage her symptoms and improve her breathing. She is reminded to rinse her mouth after using the inhaler to prevent oral side effects. The patient is encouraged to use a brace for her carpal tunnel syndrome and to monitor her symptoms. Regular follow-up appointments are recommended to monitor her conditions and adjust treatment as necessary. Patient was informed and verbally consented to the use of an ambient scribe for clinic note documentation during this visit. Discussion Notes I discussed with the patient the importance of continuing her current medications, including atorvastatin and Eliquis, to manage her hypercholesterolemia and prevent further cerebrovascular events. We talked about dietary modifications to increase potassium intake and the need for vitamin B12 supplementation to address her deficiencies. I explained the benefits of using Symbicort inhaler for her COPD and emphasized the importance of rinsing her mouth after use to prevent side effects. We also discussed the use of a brace for her carpal tunnel syndrome and the need for regular follow-up to monitor her conditions. Patient Instructions - Continue taking atorvastatin and Eliquis as prescribed. - Eat more potassium-rich foods like bananas and spinach. - Take vitamin B12 supplements as directed. - Use Symbicort inhaler twice daily and rinse mouth after use. - Wear a brace for carpal tunnel syndrome as needed. - Schedule regular follow-up appointments. Medications: New Symbicort 80-4.5 mcg/actuation (budesonide-formoterol) 2 puffs inhalation BID 10.2 grams 3RF NS J41.0 - Simple chronic bronchitis
--- OUTSIDE RECORDS SUMMARY | 2025-05-20 10:03 | XMS_ITS | Referral Summary ---
Author Organization [facility] Address [address] [place] [address] Care Team Providers Care Manager Bridge Name Role Phone TariqMarleeelidia Marc Primary Care Provider [phone] Encounters Date Type Department Care Team Description 04/22/2025 Orders Only [facility] [address] [place] [id number] Cooking Teacher: Carlos Diop MD 03/03/2025 9:30 AM EDT Follow-Up [facility] [address] [place] [id number] Cooking Teacher: Carlos Diop MD Osteoporosis with current pathological [...] Description 06/15/2025 9:00 AM EDT Clinical Support [facility] [address] [place] [id number] Cooking Teacher: Marlena Hurst 11/07/2025 9:30 AM EST Follow-Up [facility] [address] [place] [phone] Cooking Teacher: Carlos Diop MD [address] [place] [phone] Procedures * Due to [place] [employer] law, this organization might not be sharing negative HIV tests. Procedure Name Priority Date/Time Associated Diagnosis Comments DEXA SCAN 10/31/2023 from Last 3 Months or Most Recently Relevant to Health Maintenance Results * Due to [place] [employer] law, this organization might not be sharing negative HIV tests. * Dexa Scan (10/31/2023) Anatomical Region Laterality Modality Other 10/31/2023 us Onbase Scan [facility] Final Resu lt from Last 3 Months or Most Recently Relevant to Health Maintenance Insurance MEDICARE [employer] Care Teams Manager Bridge Relationship Specialty Start Date End Date Abby Potter [address] [facility] [place] [id number] PCP - General Internal Medicine 04/14/24
--- OUTSIDE RECORDS SUMMARY | 2025-05-20 10:03 | XMS_ITS | Clinical Summary ---
Author Organization [facility] Address [address] [place] [id number] Phone Care Team Providers Care Factory Representative Name Role Phone Vernon Mojica MD Primary Care Provid er Allergies Active Allergy Reactions Criticality Noted Date Comments Alum-Mag Hydroxide-Simeth Wheezing 10/16/2012 Amitriptyline Hcl 06/05/2007 Amoxicillin-Pot Clavulanate 06/05/2007 Atorvastatin Calcium 06/05/2007 Other reaction(s): Headaches Cefaclor 06/04/2007 Other reaction(s): OTHER increased palpatations Clarithromycin Arrhythmia Low 12/09/2012 Codeine 06/04/2007 Other reaction(s): Rash/Dermatitis Diazepam Itching 04/11/2011 Doxycycline Calcium 06/05/2007 Erythromycin 06/05/2007 Escitalopram Nausea and/or Vomiting 04/16/2018 Fluoxetine Hcl Itching 02/18/2011 Gatifloxacin 06/05/2007 Grapefruit Extract 06/05/2007 Hydrocodone-Acetaminop hen 06/04/2007 Other reaction(s): OTHER increased pvc's Levofloxacin 06/05/2007 Montelukast 06/05/2007 Other reaction(s): Headaches Naproxen Shortness Of Breath Low 12/09/2012 Niacin 06/05/2007 Nitrofurantoin 06/05/2007 Oxycodone-Acetaminophe n Nausea And Vomiting 06/05/2007 Penicillin G Potassium 06/05/2007 Propranolol Hcl 06/19/2009 Other reaction(s): hallucinations Proton Pump Inhibitors 06/05/2007 Quinidine Gluconate 06/05/2007 Sulfa (Sulfonamide Antibiotics) Itching Low 12/09/2012 Sulfasalazine 06/05/2007 Terfenadine 06/05/2007 Tetracycline 06/05/2007 Tioconazole 06/05/2007 Topiramate 06/05/2007 Tramadol-Acetaminophen 06/05/2007 Medications azithromycin (ZITHROMAX) 500 MG tablet Take 500 mg by mouth 3 (three) times a week. Active clobetasol (TEMOVATE) 0.05 % cream Apply 1 application topically daily. 6 Active cyanocobalamin (VIT B-12) 1000 MCG tablet Take 1,000 mcg by mouth daily. Active prochlorperazin e (COMPAZINE) 10 MG tablet Take 10 mg by mouth as needed. 6 Active estradiol (VAGIFEM) [address] 10 mcg vaginally 2 (two) times a week. Pt takes when she remember to take it Active loratadine (CLARITIN) 10 mg tablet Take 10 mg by mouth daily. Active calcium carbonate 1,250 mg (500 mg elemental) capsule Take 1,250 mg by mouth daily. Active butalbital-acet aminophen-caffe ine (FIORICET, ESGIC) 50-325-40 mg per tablet Take 1 tablet by mouth every 4 (four) hours as needed. Active atorvastatin (LIPITOR) 20 MG tablet Take 40 mg by mouth daily. Active famotidine (PEPCID AC) 20 MG tablet Take 40 mg by mouth 2 (two) times a day. Active acetaminophen (TYLENOL) 500 MG tablet Take 1,000 mg by mouth nightly as needed for pain (specific location in comments). Active albuterol 90 mcg/actuation inhaler Inhale 2 puffs into the lungs. 8 Active levalbuterol (XOPENEX) 1.25 mg/3 mL nebulizer solution Inhale 1 ampule into the lungs. 8 Active fluticasone (FLOVENT HFA) 110 mcg/actuation inhaler Inhale 220 mcg into the lungs. 8 Active zoledronic acid (RECLAST) 5 mg/100 mL PgBkIndications :Please mail to MD's office Inject 100 mL (5 mg total) into the vein Once a year. 100 mL 9 Active aspirin 81 MG EC tablet Take 81 mg by mouth daily. Active glucagon, human recombinant, (GLUCAGON) 1 mg injection Inject 1 mg into the muscle as needed. 9 Active linaCLOtide (LINZESS) 72 mcg capsule 72 mcg as needed. 9 Active ergocalciferol (DRISDOL) 50,000 unit capsuleIndicati ons:Vitamin D deficiency TAKE 1 CAPSULE BY MOUTH EVERY 14 DAYS 6 capsule 1 0 Active lifitegrast (XIIDRA OPHT) Apply to eye 2 (two) times a day. Active levothyroxine (SYNTHROID) 100 MCG tablet Active olopatadine (PAZEO) 0.7 % Drop Active methylPREDNISol one (MEDROL) 16 MG tablet Active doxycycline-kaylan zoyl peroxide 100-4.4 mg-% KClT Active escitalopram oxalate (LEXAPRO) 10 MG tablet Active diazePAM (VALIUM) 10 MG tablet Active predniSONE (DELTASONE) 1 MG tablet Active neomycin-polymy carolynn B-dexamethasone (MAXITROL) 3.5mg/mL-10,000 unit/mL-0.1 % ophthalmic suspension Place 1 drop into the left eye 4 (four) times a day. tapering every 2 weeks (4x/day 2 weeks, 3x/day 2 weeks, 2x/day 2 weeks, 1x/day 2 weeks) 10 mL 6 2 Active varenicline (TYRVAYA) 0.03 mg/spray sprm 1 spray by Each Nare route 2 (two) times a day. 8.4 mL 6 3 Active erythromycin (ROMYCIN) ophthalmic ointment Place 0.5 inches into each eye nightly at bedtime. 3.5 g 3 3 Active Active Problems Problem Noted Date Diagnosed Date Hiatal hernia 01/06/2020 Assessment & Plan (01/06/2020 1:26 PM EST): Continue 40 mg Pepcid twice daily Avoid late, large, spicy meals. Keep headboard elevated at 45 angle for nighttime. Neck pain 12/28/2018 Assessment & Plan (01/02/2019 9:11 AM EST): Avoid prolonged flexion or extension. Proper posture. Appropriate neck support for nighttime Gentle stretching, massage, ROM and muscle strengthening exercises. Follow closely with school services officer as scheduled Visit for monitoring Reclast therapy 12/28/2018 Assessment & Plan (01/16/2021 9:50 PM EDT): Patient is reminded to get chemistry profile within a month prior to next yearly Reclast infusion on or after 01/11/2022. Assessment & Plan (04/11/2020 3:13 PM EDT): Patient is reminded to get chemistry profile within a month prior to next yearly Reclast infusion on or after 01/05/2021.. Assessment & Plan (01/02/2019 9:13 AM EST): Patient is reminded to get chemistry profile within a month prior to next yearly Reclast infusion. Night sweats 04/16/2018 Vitamin D insufficiency 04/16/2018 Assessment & Plan (01/11/2021 1:08 PM EST): Continue vitamin D 50,000 units every 2 weeks. Assessment & Plan (04/11/2020 2:53 PM EDT): Continue vitamin D 50,000 units every 2 weeks. Assessment & Plan (01/06/2020 1:22 PM EST): Continue vitamin D 50,000 units every 2 weeks. Trochanteric bursitis of right hip 02/16/2018 Antibiotic long-term use 12/24/2017 Assessment & Plan (04/11/2020 3:03 PM EDT): Continue as prescribed. Close follow-up with treating/prescribing chain mender Assessment & Plan (01/06/2020 1:22 PM EST): Continue as prescribed. Close follow-up with treating/prescribing chain mender Assessment & Plan (03/31/2019 8:43 AM EDT): Continue as prescribed. Close follow-up with treating/prescribing chain mender Primary osteoarthritis involving multiple joints 10/06/2017 Assessment & Plan (01/11/2021 1:07 PM EST): Joint protection, energy conservation. Gentle, regular exercise routine. Avoid falls, injuries, overuse. Regular topical cream versus patch 2-3 times daily or at least at bed time as needed. Adelina is very concerned about the risk of dying while taking diclofenac potassium 50 mg twice daily prescribed by her neurosurgeon-Dr. Hardwick. She has asthma and COPD overlap and read in pamphlet about its side effects that it may increase the risk of dying and wanted to discuss it with me. She took 25 mg of diclofenac and did not have any side effects but is afraid of going to 50 mg so I encouraged her to remain on 25 mg first and if no side effects but ongoing pain carefully try another 25 mg 6-12 hours later. She will continue taking lower dose: 25 mg once or twice daily for the shortest period of time always remember to take it with food and call if any problems or questions. She understands that whichever other medication I would offer her for reducing the pain and inflammation around her joint muscle tendons and ligaments will put her at an increased risk of complications that may be slightly different but none of the medication is free of side effects. To reduce to risk of developing side effects she is advised to continue lowest necessary dose, for shortest period of time, make sure to take it always with food and drink lots of fluids while taking it. Assessment & Plan (04/11/2020 3:00 PM EDT): Joint protection, energy conservation. Gentle, regular exercise routine. Avoid falls, injuries, overuse. Regular topical cream versus patch 2-3 times daily or at least at bed time as needed. Adelina is very concerned about the risk of dying while taking diclofenac potassium 50 mg twice daily prescribed by her neurosurgeon-Dr. Hardwick. She has asthma and COPD overlap and read in pamphlet about its side effects that it may increase the risk of dying and wanted to discuss it with me. She took 25 mg of diclofenac and did not have any side effects but is afraid of going to 50 mg so I encouraged her to remain on 25 mg first and if no side effects but ongoing pain carefully try another 25 mg 6-12 hours later. She will continue taking lower dose: 25 mg once or twice daily for the shortest period of time always remember to take it with food and call if any problems or questions. She understands that whichever other medication I would offer her for reducing the pain and inflammation around her joint muscle tendons and ligaments will put her at an increased risk of complications that may be slightly different but none of the medication is free of side effects. To reduce to risk of developing side effects she is advised to continue lowest necessary dose, for shortest period of time, make sure to take it always with food and drink lots of fluids while taking it. Assessment & Plan (01/06/2020 1:23 PM EST): Joint protection, energy conservation. Gentle, regular exercise routine. Avoid falls, injuries, overuse. Regular topical cream versus patch 2-3 times daily or at least at bed time as needed Assessment & Plan (03/31/2019 8:41 AM EDT): Joint protection, energy conservation. Gentle, regular exercise routine. Avoid falls, injuries, overuse. Regular topical cream versus patch 2-3 times daily or at least at bed time as needed Assessment & Plan (01/02/2019 9:07 AM EST): Joint protection, energy conservation. Gentle, regular exercise routine. Avoid falls, injuries, overuse. Regular topical cream versus patch 2-3 times daily or at least at bed time as needed Pain of right hip joint 10/06/2017 Aspirin long-term use 10/06/2017 Assessment & Plan (01/11/2021 1:13 PM EST): Avoid falls, injuries and cuts. Monitor for excessive bruising and bleeding. Age-related osteoporosis wit hout current pathological fracture 10/06/2017 Assessment & Plan (01/16/2021 9:49 PM EDT): Get comprehensive metabolic panel within 30 days of planned yearly Reclast infusion on or after 01/11/2022. Daily weightbearing exercises. Proper calcium and vitamin D supplementation. Fall & fracture prevention Assessment & Plan (04/11/2020 3:02 PM EDT): Get comprehensive metabolic panel & Reclast infusion once approved by her insurance. Daily weightbearing exercises. Proper calcium and vitamin D supplementation. Fall & fracture prevention Assessment & Plan (01/06/2020 1:23 PM EST): Comprehensive metabolic panel & Reclast infusion today. Daily weightbearing exercises. Proper calcium and vitamin D supplementation. Fall & fracture prevention Assessment & Plan (03/31/2019 8:42 AM EDT): Daily weightbearing exercises. Proper calcium and vitamin D supplementation. Fall & fracture prevention She is scheduled for a bone density in April 2019. In case her bone density is deteriorating consideration for daily subcutaneous Forteo. Assessment & Plan (01/02/2019 9:09 AM EST): Comprehensive metabolic panel & Reclast infusion today. Daily weightbearing exercises. Proper calcium and vitamin D supplementation. Fall & fracture prevention Fibromyalgia 10/06/2017 Assessment & Plan (01/11/2021 1:07 PM EST): Balance rest and activity. Keep active to tolerance. Regular hobbies and favorite activities. Well-balanced nutritionally diet. Proper hydration. Optimal stress management and mindfulness in dealing with limitations due to multiple health issues and COVID-19 pandemia. Assessment & Plan (04/11/2020 3:01 PM EDT): Balance rest and activity. Keep active to tolerance. Regular hobbies and favorite activities. Well-balanced nutritionally diet. Proper hydration. Optimal stress management and mindfulness in dealing with limitations due to multiple health issues and COVID-19 pandemia. Assessment & Plan (01/06/2020 1:22 PM EST): Balance rest and activity. Keep active to tolerance. Regular hobbies and favorite activities. Well-balanced nutritionally diet. Proper hydration. Optimal stress management and mindfulness in dealing with limitations due to multiple health issues. Assessment & Plan (03/31/2019 8:42 AM EDT): Balance rest and activity. Keep active to tolerance. Regular hobbies and favorite activities. Well-balanced nutritionally diet. Proper hydration. Optimal stress management and mindfulness in dealing with limitations due to multiple health issues. Assessment & Plan (01/02/2019 9:10 AM EST): Balance rest and activity. Keep active to tolerance. Regular hobbies and favorite activities. Well-balanced nutritionally diet. Proper hydration. Optimal stress management and mindfulness in dealing with limitations due to multiple health issues. On statin therapy 10/06/2017 Assessment & Plan (01/11/2021 1:10 PM EST): Monitor for muscle tenderness, swelling and weakness Assessment & Plan (04/11/2020 3:03 PM EDT): Monitor for muscle tenderness, swelling and weakness Assessment & Plan (01/06/2020 1:22 PM EST): Monitor for muscle tenderness, swelling and weakness Assessment & Plan (03/31/2019 8:43 AM EDT): Monitor for muscle tenderness, swelling and weakness Dyspnea 11/10/2012 Overview (12/24/2014): Dyspnea Resolved Problems Problem Noted Date Diagnosed Date Resolved Date Vitamin D deficiency 03/31/2019 020 Assessment & Plan (03/31/2019 8:44 AM EDT): Continue vitamin D 50,000 units every 2 weeks. Immunizations Immunization Administration Dates Next Due Flu H1n1 Tiv Preservative Free 10/11/2009 Influenza Trivalent w/ Preservative IM 0 07/21/2013,07/19/2012,07/21/2011,08/07,07/22/2009,08/20/2008,08/11/2007 Influenza, Unspecified Formulation 11/10(Deferred: Other - , Ordered By: [id number]),08/03/2012 Pneumococcal conjugate PCV13 06/22/2015 Pneumococcal polysaccharide PPSV23 11/17/2013 Tdap 09/01/2009 Zoster live 03/18/2012 Family History Medical History Relation Comments Thyroid cancer Brother Lung cancer Father No Known Problems Mother Relation Status Comments Brother Alive Father Mother Social History Tobacco Use Types Packs/Day Years Used Date Smoking Tobacco: Never Smokeless Tobacco: Never Alcohol Use Standard Drinks/Week Comments No 0 (1 standard drink = 0.6 oz pur e alcohol) Education Answer Date Recorded Are you interested in more education? Not on melody e 02/28/2023 Are you concerned about learning? Not on file 02/28/2023 No 02/28/2023 No 02/28/2023 Digital Access Answer Date Recorded No 04/01/2023 No 04/01/2023 Reliable internet access at home? Not on file 04/01/2023 Device with a working camera? Not on file Comments Unknown Sex and Gender Information Value Date Recorded Sex Assigned at Not on file Legal Sex Female 5:24 PM EDT Gender Identity Not on file Sexual Orientation Not on file Last Filed Vital Signs Vital Sign Reading Time Taken Comments Blood Pressure 120/72 01/11/2021 12:51 PM EST Pulse - - Temperature 37.1 C (98.8 F) 01/11/2021 12:51 PM EST Respiratory Rate - - Oxygen Saturation - - Inhaled Oxygen Concentration - - Weight 48.5 kg (107 lb) 01/11/2021 12:51 PM EST with shoes Height 152.4 cm (5') 01/11/2021 12:51 PM EST Body Mass Index 20.9 01/11/2021 12:51 PM EST Plan of Treatment Health Maintenance Due Date Last Done Comments DEPRESSION SCREENING 1959 HEPATITIS C SCREENING 1965 TSH LEVEL 02/23/2014 02/23/2013 RSV VACCINE (1 - 1-dose 75+ series) 2022 LIPID PANEL 11/27/2023 11/27/2018, 04/25/2018 COVID-19 VACCINE ( season) 2024 10/21/2021, 01/01/2021, 12/01/2020 Adult Td,Tdap Booster 11/17/2029 11/17/2019, 009 PNEUMOCOCCAL VACCINES (50+ years) Completed 06/22/2015, 11/17/2013 OSTEOPOROSIS SCREENING INITIAL (ONE-TIME) Completed 04/20/2019, 11/21/2017 ZOSTER VACCINES Completed 10/03/2020, 07/2020, 07/20/2020, Additional history exists SMOKING STATUS SCREENING (Once After 26 Yrs) Completed 07/24/2023 HEPATITIS A VACCINES Aged Out No long er eligible based on patient's age to complete this topic HIB VACCINES Aged Out No longer eligi ble based on patient's age to complete this topic MENINGOCOCCAL VACCINES (ACWY) Aged Out No longer eligible based on patient's age to complete this topic MENINGOCOCCAL VACCINES (B) Aged Out N o longer eligible based on patient's age to complete this topic Medical Devices Not on file Procedures Procedure Name Priority Date/Time Associated Diagnosis Comments BD DXA AXIAL (SPINE) WITH HIP Routine 04/20/2019 8:29 AM EDT Visit for monitoring Reclast therapy Age-related osteoporosis without current pathological fracture HISTORICAL LAB Routine 02/23/2013 10:57 AM EDT from Last 3 Months or Most Recently Relevant to Health Maintenance Results * BD DXA AXIAL (SPINE) WITH HIP (04/20/2019 8:29 AM EDT) Anatomical Region Laterality Modality Bone Density Bone Density 04/20/2019 9:08 AM EDT Impressions 04/20/2019 9:11 AM EDT Osteoporosis with interval increase in right hip bone mineral density since 2018. POS - [id number] Narrative 04/20/2019 9:11 AM EDT This is a 73-year-old postmenopausal white female with a documented history of osteoporosis. She is not on estrogen replacement therapy but does take daily calcium supplements. She does not describe a perceived height loss or family history of osteoporosis.. Evaluation of the lumbar spine and hips was performed and felt to be technically adequate with comparison made prior study of 11/21/2017.. Total bone mineral density in the L1 and L2 vertebral bodies assessed due to sclerotic endplate changes at L3-4 and was calculated at 0.667 gm/cm2 with a T- score of -2.8 and Z-score of -0.8, falling within the WHO classification of osteoporosis, representing an interval decline of 3.2% since 2018 which is not felt to be within the range of statistical significance.. Total bone mineral density in the right hip was calculated at 0.675 gm/cm2 with a T-score of -2.2 and Z-score of -0.6 falling within the WHO classification of osteopenia, representing an interval improvement of 11.4% since 2018. Total bone mineral density in the left hip was calculated at 0.592 gm/cm2 with a T-score of -2.9 and Z-score of -1.3 falling within the WHO classification of osteoporosis, without significant interval change from 2018. Procedure Note Jaguar Hein MD - 04/20/2019 This is a 73-year-old postmenopausal white female with a documentedhistory of osteoporosis. She is not on estrogen replacement therapy butdoes take daily calcium supplements. She does not describe a perceivedheight loss or family history of osteoporosis.. Evaluation of the lumbar spine and hips was performed and felt to betechnically adequate with comparison made prior study of 11/21/2017.. Total bone mineral density in the L1 and L2 vertebral bodies assessed dueto sclerotic endplate changes at L3-4 and was calculated at 0.667 gm/ku7ehwk a T-score of - 2.8 and Z-score of -0.8, falling within the WHOclassification of osteoporosis, representing an interval decline of 3.2%since 2018 which is not felt to be within the range of statisticalsignificance.. Total bone mineral density in the right hip was calculated at 0.675 gm/da7uaok a T-score of -2.2 and Z-score of -0.6 falling within the WHOclassification of osteopenia, representing an interval improvement of11.4% since 2018. Total bone mineral density in the left hip wascalculated at 0.592 gm/cm2 with a T-score of -2.9 and Z-score of -1.3falling within the WHO classification of osteoporosis, without significantinterval change from 2018. IMPRESSION: Osteoporosis with interval increase in right hip bone mineral densitysince 2018. POS - [id number] us Johnna VELAZCO BD BONE DENSITY DEXA Final Result * (ABNORMAL) Historical Lab (02/23/2013 10:57 AM EDT) Thyroid Stimulating Hormone 0.09(Abno rmally L) 0.40 - 5.00 uU/ml [facility] 02/23/2013 10:5 7 AM EDT 02/23/2013 1:14 PM EDT Comment:BLOOD Micheal Larsen MD LAB BLOOD ORDERABLES Final Result [address] [id number] from Last 3 Months or Most Recently Relevant to Health Maintenance Insurance MEDICARE PART A & B [employer] MED[employer] ENHANCE SUPPLEMENT MEDICARE PART A & B [facility] MEDICARE ENHANCE SUPPLEMENT [facility] Address: [facility] [id number] [place] [place] [id number] MEDICARE PART A & B [facility] MEDICARE ENHANCE SUPPLEMENT [facility] Address: [address] [place] [id number] MEDICARE PART A & B [facility] MEDICARE ENHANCE SUPPLEMENT MEDICARE PART A & B [facility] MEDICARE ENHANCE SUPPLEMENT MEDICARE PART A & B MEDICARE ENHANCE SUPPLEMENT [facility] Address: [facility] [id number] [place] [place] [id number] MEDICARE PART A & B [facility] MEDICARE ENHANCE SUPPLEMENT MEDICARE PART A & B [employer] MEDIC[employer] ENHANCE SUPPLEMENT MEDICARE PART A & B [facility] MEDICARE ENHANCE SUPPLEMENT MEDICARE PART A & B [facility] MEDICARE ENHANCE SUPPLEMENT Care Teams Factory Representative Relationship Specialty Start Date End Date Vernon Mojica MD [address] [place] [id number] PCP - General Internal Medicine 07/03/22 Additional Source Comments The information contained in this document represents components of the legal health record. It is not the complete legal health record.[facility]
== END 2025-05-20 10:48 | disposition home or self-care (01) ==
LOC: HO.HMCH 09:52
PROVIDERS: PCP Internal Medicine; Visit Provider Internal Medicine
DX: Z86.73 Personal history of transient ischemic attack (TIA), and cerebral infarction without residual deficits (principal); J41.0 Simple chronic bronchitis; G56.00 Carpal tunnel syndrome, unspecified upper limb; K21.00 Gastro-esophageal reflux disease with esophagitis, without bleeding; E78.5 Hyperlipidemia, unspecified; F41.1 Generalized anxiety disorder

== ENCOUNTER → 2025-05-20 09:51 | Outpatient (BNVA) | payer MEDICARE, OTHER, SELFPAY | PROVIDERS: PCP Internal Medicine; Visit Provider Internal Medicine | DX: R20.0 Anesthesia of skin (principal); J41.0 Simple chronic bronchitis; K21.00 Gastro-esophageal reflux disease with esophagitis, without bleeding; F41.1 Generalized anxiety disorder; E78.5 Hyperlipidemia, unspecified; Z86.73 Personal history of transient ischemic attack (TIA), and cerebral infarction without residual deficits | CPT/HCPCS: 99212 ==

== ENCOUNTER 2025-05-31 10:42 | Outpatient (REF) | payer MEDICARE, OTHER, SELFPAY ==
--- NOTE | ~2025-05-31 | XR_ITS ---
EXAMINATION: XR SHOULDER, LEFT CLINICAL INFORMATION: M25.512 - Pain in left shoulder COMPARISON: None available. TECHNIQUE: AP external rotation, Grashey, scapular Y, and axillary views of the left shoulder. FINDINGS: Curvilinear chondral calcinosis is noted involving the central humeral head. Minimal marginal osteophyte formation is present involving humeral head and glenoid. Joint spaces preserved. The AC joint demonstrates mild degenerative change with marginal osteophytes. There is no AC joint separation. 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 Minimal AC joint osteoarthritis. Electronically signed by: Adis Velasquez MD 05/31/2025 11:29 AM EDT
--- NOTE | ~2025-05-31 | XR_ITS ---
EXAMINATION: XR WRIST 1-2 VIEWS LEFT HISTORY: M25.532 - Pain in left wrist COMPARISON: There are no prior studies available for comparison. FINDINGS: Four views of the left wrist are submitted. The bones are osteopenic. There is no fracture or dislocation. There is moderate osteoarthritis of the radial aspect of the carpus with joint space narrowing. There is chondrocalcinosis. XR/XR wrist LT 2V IMPRESSION: Osteopenia. 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 Electronically signed by: Augie Jose MD 05/31/2025 11:28 AM EDT
--- OUTSIDE RECORDS SUMMARY | 2025-05-31 11:50 | XMS_ITS ---
Author Name [facility] Organization Unknown Care Team Organization Name Specialty Phone Email Start Date End Da te [facility] 09/10/2022 06/21/2024
--- OUTSIDE RECORDS SUMMARY | 2025-05-31 11:50 | XMS_ITS | Clinical Summary ---
Author Organization [facility] Address [address] [place] [phone] Phone Care Team Providers Care Oil Rigger Name Role Phone Vernon Mojica MD Primary [...] and muscle strengthening exercises. Follow closely with manufacturing development engineer as scheduled Visit for monitoring Reclast therapy [...] Continue as prescribed. Close follow-up with treating/prescribing mixing tumbler operator Assessment & Plan (01/06/2020 1:22 PM EST): Continue as prescribed. Close follow-up with treating/prescribing mixing tumbler operator Assessment & Plan (03/31/2019 8:43 AM EDT): Continue as prescribed. Close follow-up with treating/prescribing mixing tumbler operator Primary osteoarthritis involving multiple joints 10/06/2017 Assessment [...] Formulation 11/10(Deferred: Other - , Ordered By: [id number]),08/03/2012 Pneumococcal conjugate PCV13 06/22/2015 Pneumococcal polysaccharide PPSV23 [...] bone mineral density since 2018. POS - [id number] Narrative 04/20/2019 9:11 AM EDT This is [...] at L3-4 and was calculated at 0.667 gm/hn4wpih a T-score of - 2.8 and Z-score of -0.8, falling within the WHOclassification of osteoporosis, representing an interval decline of 3.2%since 2018 which is not felt to be within the range of statisticalsignificance.. Total bone mineral density in the right hip was calculated at 0.675 gm/xv1rxww a T-score of -2.2 and Z-score of [...] hip bone mineral densitysince 2018. POS - [id number] us Johnna VELAZCO BD BONE DENSITY DEXA Final Result * (ABNORMAL) Historical Lab (02/23/2013 10:57 AM EDT) Thyroid Stimulating Hormone 0.09(Abno rmally L) 0.40 - 5.00 uU/ml [facility] 02/23/2013 10:5 7 AM EDT 02/23/2013 1:14 PM EDT Comment:BLOOD Micheal Larsen MD LAB BLOOD ORDERABLES Final Result [address] [id number] from Last 3 Months or Most Recently Relevant to Health Maintenance Insurance MEDICARE PART A & B [facility] [employer] ENHANCE SUPPLEMENT MEDICARE PART A & B [facility] MEDIC[facility] ENHANCE SUPPLEMENT MEDICARE PART A & B [facility] MEDICARE ENHANCE SUPPLEMENT MEDICARE PART A & B [facility] MEDICARE ENHANCE SUPPLEMENT MEDICARE PART A & B [facility] MEDICARE ENHANCE SUPPLEMENT MEDICARE PART A & B MEDICARE ENHANCE SUPPLEMENT MEDICARE PART A & B [facility] MEDICARE ENHANCE SUPPLEMENT MEDICARE PART A & B [facility] [employer] ENHANCE SUPPLEMENT MEDICARE PART A & B [facility] MEDICARE ENHANCE SUPPLEMENT MEDICARE PART A & B [facility] MEDICARE ENHANCE SUPPLEMENT Care Teams Oil Rigger Relationship Specialty Start Date End Date Vernon Mojica MD [address] [place] [id number] PCP - General Internal Medicine 07/03/22 Additional Source Comments The information contained in this document represents components of the legal health record. It is not the complete legal health record.[facility]
--- OUTSIDE RECORDS SUMMARY | 2025-05-31 11:50 | XMS_ITS | Referral Summary ---
Author Organization [facility] Address [address] [place] [address] Care Team Providers Care Gun Mechanic Name Role Phone TariqMarleeelidia Marc Primary Care Provider [phone] Encounters Date Type Department Care Team Description 04/22/2025 Orders Only [facility] [address] [place] [phone] Geophysical Engineer: Carlos Diop MD 03/03/2025 9:30 AM EDT Follow-Up [facility] [address] [place] [phone] Geophysical Engineer: Carlos Diop MD Osteoporosis with current pathological [...] Description 06/15/2025 9:00 AM EDT Clinical Support [facility] [address] [place] [id number] Geophysical Engineer: Marlena Hurst 11/07/2025 9:30 AM EST Follow-Up [facility] [address] [place] [phone] Geophysical Engineer: Carlos Diop MD [address] [place] [address] Procedures * Due to [place] [employer] law, this organization might not be sharing negative HIV tests. Procedure Name Priority Date/Time Associated Diagnosis Comments DEXA SCAN 10/31/2023 from Last 3 Months or Most Recently Relevant to Health Maintenance Results * Due to [place] [employer] law, this organization might not be sharing negative HIV tests. * Dexa Scan (10/31/2023) Anatomical Region Laterality Modality Other 10/31/2023 us Onbase Scan [facility] Final Resu lt from Last 3 Months or Most Recently Relevant to Health Maintenance Insurance MEDICARE [facility] SUPP Care Teams Gun Mechanic Relationship Specialty Start Date End Date Abby Potter [address] [place] [address] PCP - General Internal Medicine 04/14/24
--- OUTSIDE RECORDS SUMMARY | 2025-05-31 11:50 | XMS_ITS | Clinical Summary ---
Author Organization [facility] Address [address] [facility] [address] [facility] [address] [place] [address] Care Team Providers Care Summer Analyst Name Role Phone Abby Potter MD Primary Care Provider [phone] Social History Tobacco Use Types Packs/Day Years Used Date Smoking Tobacco: Never Assessed Comments Unknown Sex and Gender Information Value Date Recorded Sex Assigned at Not on file Legal Sex Female 2:27 PM EDT Gender Identity Not on file Sexual Orientation Not on file Plan of Treatment Health Maintenance Due Date Last Done Comments Hepatitis C Screening 1963 Hepatitis A Vaccines (1 of 2 - Risk 2-dose series) 1966 Hepatitis B Vaccines (1 of 3 - Risk 3-dose series) 2007 Medicare Annual Wellness (AWV) 10/03/2013 Bone Density Scan 04/20/2020 04/20/2019 COVID-19 Vaccine ( season) 2024 08/05/2023, 10/21/2021, 01/01/2021, Additional history exists Depression Screening 11/03/2024 Influenza Vaccine (#1) 2025 , 07/24/2022, 08/01/2021, Additional history exists DTaP/Tdap/Td Vaccines (3 - Td or Tdap) 11/17/2029 11/17/2019, 09/01/2009 Zoster Vaccines Completed 10/03/2020, 11/0 07/2020, 07/20/2020, Additional history exists Pneumococcal Vaccine: 50+ Years Completed 03/05/2024, 06/22/2015, 11/17/2013 HIB Vaccines Aged Out No longer eligi ble based on patient's age to complete this topic HPV Vaccines Aged Out No longer eligi ble based on patient's age to complete this topic IPV Vaccines Aged Out No longer eligi ble based on patient's age to complete this topic Meningococcal B Vaccine Aged Out No l onger eligible based on patient's age to complete this topic Meningococcal Vaccine Aged Out No gloria florentino eligible based on patient's age to complete this topic Rotavirus Vaccines Aged Out No longer eligible based on patient's age to complete this topic Insurance MEDICARE PART A AND B [facility] Care Teams Summer Analyst Relationship Specialty Start Date End Date Abby Potter MD [address] [place] [address] PCP - General 08/10/24
== END 2025-05-31 10:43 | disposition home or self-care (01) ==
LOC: HO.XRAY 10:42
PROVIDERS: PCP Internal Medicine; Visit Provider Internal Medicine
DX: M25.512 Pain in left shoulder (principal); M25.532 Pain in left wrist
CPT/HCPCS: 73030; 73100

== ENCOUNTER → 2025-05-31 10:46 | Outpatient (BNV) | payer MEDICARE, OTHER, SELFPAY | PROVIDERS: PCP Internal Medicine; Visit Provider Radiology Diagnostic Radiology | DX: M19.032 Primary osteoarthritis, left wrist (principal) | CPT/HCPCS: 73100 ==

== ENCOUNTER 2025-06-30 09:45 | Outpatient (RCR) | payer MEDICARE, OTHER, SELFPAY ==
--- NOTE | 2025-06-30 10:46 | MHC.PT.EP ---
[facility] [place] Office [place] Office [place] Office [address] [phone] F: [phone] F: [phone] F: [phone] F: [phone] Physical Therapy Plan of Care Date of Evaluation: 06/30/25 Date of Surgery: NA Diagnosis: L shoulder pain Assessment: Adelina is 79 year old female who is referred to PT for L shoulder pain . She reports of having sudden onset of L shoulder pain about a month back following a fall. She broke her fall with L wrist and sprained her L wrist, injured L shoulder and neck. She denies having any fracture. Currently seeking OT for L wrist. On PT examination she presented with TTP over L UT, B cervical paraspinals, 6/10 pain in L shoulder and neck, decreased L shoulder ROM, decreased shoulder and scap strength, and altered posture. She lives with her and needs assistance for ADLS requiring her to carry weights, and button. She also reports of having difficulty with L SL. She would benefit from skilled PT to address the aforementioned impairments and improve tolerance to functional activities. Frequency and Duration: The patient will be seen 2/week for 5 weeks Short Term Goals: 1. Pt will have 50% decrease in pain which will enable her to sleep through the night without pain in 2 weeks 2. Pt will be able to move her L shoulder through all planes of motion without pain which will enable her to dress her upper body in 3 weeks Physician Practice Consultant Goals: 1. Pt will demonstrate an increase in muscle strength by 1 grade which will enable her to carry weight with a pain no more than 1/10 in 5 weeks 2. Pt will be independent all HEP for symptom management and maintenance following d/c in 5 weeks Treatment Plan: Modalities to reduce pain, spasms and effusion. Manual therapy to restore motion and function. Therapeutic exercise to improve strength and flexibility. Neuromuscular re-education for posture and balance. Therapeutic activities to return to functional activities of daily living. Electronically signed by: Babita Beyer PT DPT Please sign and return to therapist. Thank you for your referral.
--- NOTE | 2025-07-26 11:31 | MHC.PT.DC ---
[facility] [place] [facility] [place] [facility] [place] [facility] [address] [phone] F: [phone] F: [phone] F: [phone] F: [phone] Physical Therapy Discharge Report Diagnosis: L shoulder pain Date of Surgery: NA Date of Evaluation: 06/30/25 Date of Discharge: 07/26/25 Treatments to Date: 1 Cancellations to Date: 0 No Shows to Date: 0 Discharge Status: Patient Elected to Stop Discharge Summary: Adelina attended her evaluation and then canceled all her appointments stating she does not think she needs PT. She is therefore being d/c from PT. Electronically signed by: Babita Beyer PT DPT Please sign and return to therapist. Thank you for your referral.
== END 2025-07-26 11:32 | disposition home or self-care (01) ==
LOC: HO.PT 09:45
PROVIDERS: PCP Internal Medicine; Visit Provider Internal Medicine
DX: M25.512 Pain in left shoulder (principal)
CPT/HCPCS: 97110; 97161

== ENCOUNTER 2025-07-05 10:00 | Outpatient (RCR) | payer MEDICARE, OTHER, SELFPAY ==
--- NOTE | 2025-06-09 15:26 | MHC.OT.EP ---
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 She felt she injured her L hand and she went right to the ED in [facility]; had an X-ray which was negative for fractures and was diagnosed w/ a severe sprain . She reports having another X-ray here at [facility] 05[place]31 which only showed degenerative changes; but again was negative for fractures. She presents today in a wrist cock up splint which was given to her by the MD and she reports wearing at at all times. She has limited ROM due to pain , and is TENDER on the dorsal side of her wrist. Pt is guarding her wrist due to pain. She presents w/ edema, limited ROM, and strength. She would benefit from skilled OT Therapy to address these deficits and RPLOF. Frequency and Duration: The patient will be seen 2xs a week for 6 weeks Short Term Goals: Pt will avoid guarding of his L hand / wrist Pt will have 70 of pain free supination Pt will have 14.5 cm measurement around the circumference of her L wrist Shelter Goals: Pt will report 2/10 pain w/ use of her L hand Pt will have a DASH equal or less than 30% Pt will have pain free extension of her wrist to 45 Treatment Plan: Therapeutic Exercise Therapeutic Activity Home Exercise Program Splinting Neuro Re-ed Patient Education Desensitization/Sensory Re-ed Edema Control ADL Training Ultrasound NMES Iontophoresis Paraffin Fluidotherapy MHP Cold Packs Joint Mobilization Soft Tissue Mobilization Kinesiotaping Other (see comments) Electronically Signed By: Laurie Chiu OTR/L Please Sign and return to therapist. Thank you once again for your referral.
== END 2025-10-14 14:59 | disposition home or self-care (01) ==
LOC: HO.OT 10:00
PROVIDERS: PCP Internal Medicine; Visit Provider Internal Medicine
DX: M25.532 Pain in left wrist (principal)
CPT/HCPCS: 97035; 97110; 97140; 97166; 97530; 97535

== ENCOUNTER 2025-07-14 08:08 | Outpatient (AMB) | payer MEDICARE, OTHER, SELFPAY ==
--- NOTE | 2025-07-14 08:17 | MHC.OFFVIS ---
Vital Signs 07/14/25 08:18 Height 5 ft Weight 108 lb 0.424 oz BMI 21.1 BP 120/60 Blood Pressure Location Lt brachial Position Sitting Pulse 69 Pulse Source Pulse Oximeter Intake Visit Reasons: 6 mth f/up Allergies naproxen (From NAPROSYN) Allergy (Severe, Verified 05/20/25 09:57) sensitivity niacin (From NIASPAN EXTENDED-RELEASE) Allergy (Severe, Verified 05/20/25 09:57) Rash clarithromycin (From BIAXIN) Allergy (Mild, Verified 05/20/25 09:57) sensitivity codeine (CODEINE) Allergy (Mild, Verified 05/20/25 09:57) Itching esomeprazole (From Nexium) Allergy (Mild, Verified 05/20/25 09:57) Hives fluconazole (From DIFLUCAN) Allergy (Mild, Verified 05/20/25 09:57) sensitivity gatifloxacin (From TEQUIN) Allergy (Mild, Verified 05/20/25 09:57) sensitivity hydrocodone (From Vicodin) Allergy (Mild, Verified 05/20/25 09:57) Rash levofloxacin (From Levaquin) Allergy (Mild, Verified 05/20/25 09:57) sensitivity oxycodone (From Percocet) Allergy (Mild, Verified 05/20/25 09:57) Itching quinidine (QUINIDINE) Allergy (Mild, Verified 05/20/25 09:57) sensitivity Sulfa (Sulfonamide Antibiotics) (SULFA (SULFONAMIDE ANTIBIOTICS)) Allergy (Mild, Verified 05/20/25 09:57) Rash terfenadine (From SELDANE) Allergy (Mild, Verified 05/20/25 09:57) sensitivity tetracycline (TETRACYCLINE) Allergy (Mild, Verified 05/20/25 09:57) sensitivity amitriptyline Allergy (Unknown, Verified 05/20/25 09:57) Unknown cefaclor (From CECLOR) Adverse Reaction (Severe, Verified 05/20/25 09:57) Unknown abaloparatide (From Tymlos) Adverse Reaction (Intermediate, Verified 05/20/25 09:57) Dizziness bupropion (From Wellbutrin) Adverse Reaction (Intermediate, Verified 05/20/25 09:57) Nausea cefdinir Adverse Reaction (Intermediate, Verified 05/20/25 09:57) Stomach Upset montelukast (From Singulair) Adverse Reaction (Mild, Verified 05/20/25 09:57) Headache topiramate (From TOPAMAX) Adverse Reaction (Mild, Verified 05/20/25 09:57) Stomach Upset Medication List - Last Reconciled 07/14/25 by Chris Lincoln MD abaloparatide (Tymlos) 80 mcg subcut DAILY albuterol sulfate 90 mcg/actuation 2 inhalations inhalation Q6H PRN 30 days atorvastatin 40 mg PO DAILY bupropion HCl SR (Wellbutrin SR) mg PO ernvogpomb-jiepgawala-jng-cod 56-585-54-30 mg 1 cap PO Q4H PRN cholecalciferol (vitamin D3) TAKE 1 CAPSULE BY MOUTH DAILY docusate sodium (Colace) 100 mg PO DAILY Eliquis (apixaban) 5 mg PO BID 90 days NS escitalopram oxalate (Lexapro) 10 mg PO DAILY estradiol 0.01%(0.1mg/gram) (Estrace) pea size amount to urethra vaginally daily famotidine (Pepcid) 40 mg PO BEDTIME Lexapro (escitalopram oxalate) 10 mg PO DAILY NS lidocaine 4% (Lidocaine Pain Relief) 1 patch See Protocol transdermal DAILY loratadine 10 mg PO DAILY PRN nebulizers As directed neomycin-polymyxin B-dexameth 3.5mg/mL-10,000 unit/mL-0.1 % drps ophthalmic (eye) polyethylene glycol 3350 (Miralax) 17 grams PO DAILY 30 days promethazine 12.5 mg PO Q6H PRN NS sennosides-docusate sodium 8.6-50 mg (Senna with Docusate Sodium) 2 tab-caps (2 x 8.6-50 mg) PO BEDTIME 30 days Symbicort 80-4.5 mcg/actuation (budesonide-formoterol) 2 puffs inhalation BID NS tramadol 50 mg PO BID PRN 21 days NS Wellbutrin SR (bupropion HCl) 100 mg PO BEDTIME NS HPI Comments Details: Adelina returns for follow up regarding stroke/PFO. She seems to be generally doing okay. No clear-cut symptoms like exertional angina or in fact anything cardiac related. [facility] Medical History MCI (mild cognitive impairment) Migraine with aura, with intractable migraine, so stated, with status migrainosus Depression Hiatal hernia Anxiety and depression Neck pain Cervical disc disease Muscle tension headache Paresthesia of skin MCI (mild cognitive impairment) with memory loss Vertigo Myopathy Unspecified optic neuritis Memory change Mgrn w aura w intrc mgrn Sinusitis Stroke Migraine Carpal tunnel syndrome Hemiparesis Chest pain Sinus congestion Cough Weight loss Polyarthralgia Fall Shoulder pain, right Back pain Nausea Palpitation Headache, post-traumatic, acute Scalp irritation Anemia Encounter for vitamin deficiency screening Renal cyst Dense breast Breast cancer screening by mammogram Acute bronchitis Ocular migraine Hyperlipidemia History of CVA (cerebrovascular accident) (~2020) Tubular adenoma of colon (~2005) SERG (obstructive sleep apnea) Nasal vestibulitis Degeneration, intervertebral disc, cervical Dry eye PONV (postoperative nausea and vomiting) Arthritis of neck Cerebral microvascular disease Atherosclerotic cardiovascular disease Precordial chest pain URI (upper respiratory infection) Overactive bladder Microscopic hematuria Urinary urgency Osteoporosis (~1999) Mycobacterial disease GERD (gastroesophageal reflux disease) Pulmonary nodules COPD (chronic obstructive pulmonary disease) Surgical History History of fusion of cervical spine History of sinus surgery History of colonoscopy History of esophagogastroduodenoscopy (EGD) History of bladder suspension procedure Family History Son No problems noted. Social History Household Members: Spouse Housing: Condominium Do you presently have visiting nurse or other home services: No Alcohol intake: never Patient Tobacco Use Status: Never used Tobacco Tobacco use type: Cigarette Years Smoked: parent and smoker e-Cigarette/Vaping Use: Never Used Second Hand Smoke Exposure: Yes Advance Directives Date on File: 08/16/20 service: No Current occupational status: retired Current occupation: right hand Cognitive needs: No Hearing needs: Yes (hearing aides) Vision needs: Yes (Glasses) Review of Systems Const Denies weakness ENT Denies dizziness Card Denies chest pain, Denies chest pain with activity, Denies syncope, Denies rapid heart rate, Denies pedal edema, Denies edema, Denies leg edema, Denies lightheadedness, Denies palpitations, Denies dyspnea, Denies dyspnea on exertion and Denies orthopnea Resp Denies cough, Denies dyspnea and Denies dyspnea on exertion GI Denies hematochezia and Denies change in stool character Musc Denies abnormal gait, Reports myalgias, Denies muscle cramps, Denies muscle weakness, Denies numbness, Denies radiating pain into limb and Denies tingling Neuro Denies abnormal gait, Denies dizziness, Denies syncope, Denies numbness, Denies tingling and Denies weakness Endo Denies palpitations Physical Exam Vital Signs: Last Vital Signs Pulse 69 07/14/25 08:18 BP 120/60 07/14/25 08:18 BMI result Body Mass Index 21.1 Const General: comfortable and no acute distress Orientation/consciousness: patient oriented x3 HEENT Other: Unremarkable Head: Yes normal to inspection Neck Neck: Yes normal visual inspection Chest Chest palpation & inspection: normal inspection of the chest Resp Auscultation: clear to auscultation bilaterally Cardio Palpation: normal PMI Heart sounds: S1 normal heart sound present, S2 normal heart sound present, no gallops, no murmurs and no rubs GI Palpation (GI): Soft to palpation Back/Spine/Pelvis Other: unremarkable Skin General skin exam: no rashes or lesions noted Neuro General: patient oriented x3 Extrem General: Yes normal to inspection Psych Mental Status: mental status grossly normal Assessment & Plan Assessment & Plan (1) Ischemic stroke: Code(s): I63.9 - Cerebral infarction, unspecified Category: Medical Plan: Cardiac studies reviewed. TTE- agitated saline contrast study positive for small PFO with neqwv-zb-srxx shunting during Valsalva. MALA-In the 2D portion, PFO could be seen with color Doppler evidence of anvgi-vi-awgo shunting but during saline contrast done 3x, there was no evidence of transfer bubbles from right to left side. Overall possibly small PFO with intermittent shunting but does not appear hemodynamically significant. No indication for PFO closure. She remains on empiric anticoagulation and has been tolerating that well with no issues. (2) Atherosclerotic cardiovascular disease: Code(s): I25.10 - Atherosclerotic heart disease of [place] coronary artery without angina pectoris Category: Medical Plan: Coronary CTA from 2018-focal plaque at the mid LAD with mild narrowing; mild calcific plaque at RCA origin without any significant luminal narrowing. Myocardial perfusion imaging study from 2019 performed at [facility]-no reversible or fixed defects; exercise capacity 4.6 Mets and reached 82% of max predicted heart rate. Clinically, she has got no overt angina. Continue statins. LDL is well controlled. Plan Total time spent including review of data, counseling, documentation, coordination of care-34 minutes. Coding Level of Care Code Est Pt Level 4 (42952) Diagnoses Ischemic stroke I63.9 Atherosclerotic cardiovascular disease I25.10
[2025-07-14 08:18] VITALS: BP 120/60; PULSE 69; BMI 21.1
--- OUTSIDE RECORDS SUMMARY | 2025-07-14 08:50 | XMS_ITS | Clinical Summary ---
Author Organization [facility] Address [address] [facility] [address] [facility] [address] [place] [address] Care Team Providers Care Web Feeder Name Role Phone Abby Potter MD Primary Care Provider [phone] Social History Tobacco Use Types Packs/Day Years Used Date Smoking Tobacco: Never Assessed Comments Unknown Sex and Gender Information Value Date Recorded Sex Assigned at Not on file Legal Sex Female 2:27 PM EDT Gender Identity Not on file Sexual Orientation Not on file Plan of Treatment Health Maintenance Due Date Last Done Comments Lipid Panel 1945 Hepatitis C Screening 1963 Hepatitis A Vaccines (1 of 2 - Risk 2-dose series) 1966 Hepatitis B Vaccines (1 of 3 - Risk 3-dose series) 2007 Medicare Annual Wellness (AWV) 10/03/2013 Bone Density Scan 04/20/2021 04/20/2019 Depression Screening 11/03/2024 COVID-19 Vaccine ( season) 2025 08/05/2023, 10/21/2021, 01/01/2021, Additional history exists Influenza Vaccine (#1) 2025 , 07/24/2022, 08/01/2021, Additional history exists DTaP/Tdap/Td Vaccines (3 - Td or Tdap) 11/17/2029 11/17/2019, 09/01/2009 Zoster Vaccines Completed 10/03/2020, 1107/2020, 07/20/2020, Additional history exists Pneumococcal Vaccine: 50+ [...] topic Insurance MEDICARE PART A AND B [employer] Care Teams Web Feeder Relationship Specialty Start Date End Date Abby Potter MD [address] [place] [address] PCP - General 08/10/24
--- OUTSIDE RECORDS SUMMARY | 2025-07-14 08:50 | XMS_ITS | Encounter Summary ---
Author Organization [facility] Address [address] [place] [address] Care Team Providers Care Cloth Weaver Name Role Phone TariqMarleeelidia Marc Primary Care Provider [phone] Reason for Visit * Reason Onset Date Comments PAC Patient Request Call Back 06/08/2024 Encounter Details Date Type Department Care Team (Late st Contact Info) Description 06/08/2024 Telephone [facility] [address] [place] [address] Telephone Intake, Staff PAC Patient Request Call [...] for 9am. Patient can be reached at [phone]. Thank you - PAC documented in this encounter Plan of Treatment Upcoming Encounters Date Type Department Care Team (Late st Contact Info) Description 11/07/2025 9:30 AM EST Follow-Up [facility] [address] [place] [address] Vehicle Calibration Engineer: Carlos Diop MD [address] [place] [id number] 12/20/2025 9:00 AM EST Clinical Support [facility] [address] [place] [id number] Vehicle Calibration Engineer: Marlena Hurst documented as of this encounter Visit Diagnoses Not on filedocumented in this encounter Care Teams Cloth Weaver Relationship Specialty Start Date End Date Abby Potter [address] [place] [address] [place] [address] PCP - General Internal Medicine 04/14/24 documented as of this encounter
--- OUTSIDE RECORDS SUMMARY | 2025-07-14 08:50 | XMS_ITS | Clinical Summary ---
Author Organization [facility] Address [address] [place] [address] Phone Care Team Providers Care Client Technologies Specialist Name Role Phone Vernon Mojica MD Primary [...] and muscle strengthening exercises. Follow closely with manager welding as scheduled Visit for monitoring Reclast therapy [...] Continue as prescribed. Close follow-up with treating/prescribing information manager Assessment & Plan (01/06/2020 1:22 PM EST): Continue as prescribed. Close follow-up with treating/prescribing information manager Assessment & Plan (03/31/2019 8:43 AM EDT): Continue as prescribed. Close follow-up with treating/prescribing information manager Primary osteoarthritis involving multiple joints 10/06/2017 Assessment & Plan (01/11/2021 1:07 PM EST): Joint protection, energy conservation. Gentle, regular exercise routine. Avoid falls, injuries, overuse. Regular topical cream versus patch 2-3 times daily or at least at bed time as needed. Timmy is very concerned about the risk of [...] at least at bed time as needed. Timmy is very concerned about the risk of [...] Due Flu H1n1 Tiv Preservative Free 10/11/2009 INFLUENZA, SPLIT VIRUS, TRIV ALENT W/ PRESERVATIVE IM 07/21/2013,07/19/2012,07/21/2011,08/07,07/22/2009,08/20/2008,08/11/2007 Influenza, Unspecified Formulation 11/10(Deferred: Other - , Ordered By: [id number]),08/03/2012 Pneumococcal conjugate PCV13 06/22/2015 Pneumococcal polysaccharide PPSV23 [...] series) 2022 LIPID PANEL 11/27/2023 11/27/2018, 04/25/2018 INFLUENZA VACCINE (#1) 2025 , 08/05/2020, 07/28/2019, Additional history exists COVID-19 VACCINE ( season) 2025 10/21/2021, 01/01/2021, 12/01/2020 Adult Td,Tdap Booster 11/17/2029 [...] bone mineral density since 2018. POS - [id number] Narrative 04/20/2019 9:11 AM EDT This is [...] at L3-4 and was calculated at 0.667 gm/lf6jcph a T-score of - 2.8 and Z-score of -0.8, falling within the WHOclassification of osteoporosis, representing an interval decline of 3.2%since 2018 which is not felt to be within the range of statisticalsignificance.. Total bone mineral density in the right hip was calculated at 0.675 gm/sp5knfd a T-score of -2.2 and Z-score of [...] hip bone mineral densitysince 2018. POS - [id number] us Johnna I Klich-Navneet MD IMG BD BONE DENSITY DEXA Final Result * (ABNORMAL) Historical Lab (02/23/2013 10:57 AM EDT) Thyroid Stimulating Hormone 0.09(Abno rmally L) 0.40 - 5.00 uU/ml [facility] 02/23/2013 10:5 7 AM EDT 02/23/2013 1:14 PM EDT Comment:BLOOD us Micheal Larsen MD LAB BLOOD ORDERABLES Final Result [address] [id number] from Last 3 Months or Most Recently Relevant to Health Maintenance Insurance MEDICARE PART A & B [employer] MEDIC[employer] ENHANCE SUPPLEMENT [facility] Address: [facility] [id number] [id number] MEDICARE PART A & B [facility] MEDICARE ENHANCE SUPPLEMENT MEDICARE PART A & B [facility] MEDICARE ENHANCE SUPPLEMENT MEDICARE PART A & B MEDICARE ENHANCE SUPPLEMENT MEDICARE PART A & B [id number] [place] [address] MEDICARE ENHANCE SUPPLEMENT MEDICARE PART A & B [facility] MEDICARE ENHANCE SUPPLEMENT MEDICARE PART A & B [facility] MEDICARE ENHANCE SUPPLEMENT MEDICARE PART A & B [facility] MEDICARE ENHANCE SUPPLEMENT MEDICARE PART A & B [facility] MEDICARE ENHANCE SUPPLEMENT MEDICARE PART A & B [facility] MEDICARE ENHANCE SUPPLEMENT Care Teams Client Technologies Specialist Relationship Specialty Start Date End Date Vernon Mojica MD [address] [place] [address] NADIASAAD MURPHY [phone] PCP - General Internal Medicine 07/03/22 Additional Source Comments The information contained in this document represents components of the legal health record. It is not the complete legal health record.[facility]
--- OUTSIDE RECORDS SUMMARY | 2025-07-14 08:50 | XMS_ITS | Clinical Summary ---
Author Organization [facility] Address [address] [place] [address] Care Team Providers Care Ergonomics Consultant Name Role Phone TariqAbby Monico Primary Care Provider [phone] Allergies Active Allergy Reactions Criticality Noted Date [...] Encounters Date Type Department Care Team Description 07/07/2025 Telephone [facility] [address] [place] [address] Field Service Tech: Marlena Hurst Telephone Intake, Staff PAC Clinical Questions 06/15/2025 9:00 AM EDT Clinical Support [facility] [address] [place] [address] Field Service Tech: Rose Castle LPN Age-related osteoporosis without current pathological fracture (Primary Dx) 04/22/2025 Orders Only [facility] [address] [place] [address] Field Service Tech: Carlos Diop MD from Last 3 Months Social History Tobacco [...] Info) Description 11/07/2025 9:30 AM EST Follow-Up [facility] [address] [place] [phone] Field Service Tech: Carlos Diop MD [address] [place] [address] [phone] 12/20/2025 9:00 AM EST Clinical Support [facility] [address] [place] [address] [phone] Field Service Tech: Marlena Hurst Health Maintenance Due Date Last Done Comments Hepatitis C Screening 1945 Medicare AWV 1946 Alcohol/Substance Use Screening 11/03/2024 Depression Screening and Follow-Up 11/03/2024 Health Care Proxy Review 11/03/2024 Social Drivers of Health Annual Screening 11/03/2024 COVID-19 Vaccine ( season) 2025 08/05/2023, 10/21/2021, 01/01/2021, Additional history exists Influenza Vaccine (#1) 2025 , 07/24/2022, 08/01/2021, Additional history exists Fall Risk Screening 03/03/2026 03/03/2025 DTaP,Tdap,and Td Vaccines (3 - Td or Tdap) 11/17/2029 11/17/2019, 09/01/2009 Tobacco Screening 11/03/2042 03/03/2025 Zoster Vaccines Completed 10/03/2020, 1107/2020, 07/20/2020, Additional history exists RSV Vaccine (60+ years old and patients) Completed 08/05/2023 Osteoporosis Screening Completed , 10/31/2023, 04/20/2019, Additional history exists Pneumococcal Vaccine: 50+ Years Completed 03/05/2024, 06/22/2015, 11/17/2013 Hepatitis B Vaccines Aged Out No long er eligible based on patient's age to complete this topic Procedures * Due to [place] [employer] law, this organization might not be sharing negative HIV tests. Procedure Name Priority Date/Time Associated Diagnosis Comments COLLAGEN TYPE I C-TELOPEPTIDE (CTX) Routine 06/06/2025 10:34 AM EDT Osteoporosis with current pathological fracture with routine healing, unspecified osteoporosis type, subsequent encounter High risk medication use Closed fracture of right wrist with routine healing, subsequent encounter Other osteoporosis without current pathological fracture PHOSPHORUS Routine 06/06/2025 10:34 AM EDT Osteoporosis with current pathological fracture with routine healing, unspecified osteoporosis type, subsequent encounter High risk medication use Closed fracture of right wrist with routine healing, subsequent encounter ALBUMIN Routine 06/06/2025 10:34 AM EDT Osteoporosis with current pathological fracture with routine healing, unspecified osteoporosis type, subsequent encounter High risk medication use Closed fracture of right wrist with routine healing, subsequent encounter CREATININE Routine 06/06/2025 10:34 AM EDT Osteoporosis with current pathological fracture with routine healing, unspecified osteoporosis type, subsequent encounter High risk medication use Closed fracture of right wrist with routine healing, subsequent encounter CALCIUM Routine 06/06/2025 10:34 AM EDT Osteoporosis with current pathological fracture with routine healing, unspecified osteoporosis type, subsequent encounter High risk medication use Closed fracture of right wrist with routine healing, subsequent encounter VITAMIN D, 25-HYDROXY, TOTAL, IMMUNOASSAY Routine 06/06/2025 10:34 AM EDT Osteoporosis with current pathological fracture with routine healing, unspecified osteoporosis type, subsequent encounter High risk medication use Closed fracture of right wrist with routine healing, subsequent encounter HM DEXA SCAN 10/31/2023 from Last 3 Months or Most Recently Relevant to Health Maintenance Results * Due to [place] [employer] law, this organization might not be sharing negative HIV tests. * Collagen Type I C-Telopeptide (CTx) (06/06/2025 10:34 AM EDT) C Telopeptide (CTX) 74 see note pg/mL 06/09/2025 9:46 PM EDT [facility]/David MARTINEZ Comment: Unable to flag abnormal result(s), please refer to reference range(s) below: Reference Range, Females: <5 years: Not Established 5-9 years: 574-1849 pg/mL 10-13 years: 519-2415 pg/mL 14-17 years: 242-1291 pg/mL 18-29 years: 64-640 pg/mL 30-39 years: 60-650 pg/mL 40-49 years: 50-465 pg/mL >49 years: Not Established No reference range is provided for postmenopausal women because of the increased rate of bone turnover post-menopause. It is recommended that results for postmenopausal women be compared to the premenopausal reference range as this will give a better indication of their rate of bone loss. For additional information, please refer to https://education.Mercateo/faq/LND550 (This link is being provided for informational/ educational purposes only.) Blood Structure of peripheral vein / Unknown 06/06/2025 10:34 AM EDT 06/08/2025 7:27 AM EDT Narrative [facility] - 06/09/2025 9:49 PM EDT FASTING:YES us Chiquita Painter MD LAB BLOOD ORDERABLES Final Resul t [facility] [address] [facility] [address]rd Floor, [place] [address], [place] [phone] [facility]/NAHEED RICARDOBAXTER [address] [place] [address] * Vitamin D, 25-Hydroxy, Total, Immunoassay (06/06/2025 10:34 AM EDT) Calcidiol+ercalc idiol 63 30 - 100 ng/mL 06/06/2025 10:13 PM EDT [facility] Comment: Vitamin D Status 25-OH Vitamin D: Deficiency: <20 ng/mL Insufficiency: 20 - 29 ng/mL Optimal: > or = 30 ng/mL For 25-OH Vitamin D testing on patients on D2-supplementation and patients for whom quantitation of D2 and D3 fractions is required, the QuestAssureD(TM) 25-OH VIT D, (D2,D3), LC/MS/MS is recommended: order code 35027 (patients >2yrs). See Note 1 Note 1 For additional information, please refer to http://education.Smarter Agent Mobile/faq/VAE528 (This link is being provided for informational/ educational purposes only.) Blood Structure of peripheral vein / Unknown 06/06/2025 10:34 AM EDT 06/06/2025 9:16 PM EDT Narrative [facility] - 06/09/2025 9:49 PM EDT FASTING:YES us Chiquita Painter MD LAB BLOOD ORDERABLES Final Resul t Performing Organization Address City/[facility]/ZIP Co de Phone Number [facility] [address], [place] [address], [place] [phone] [facility] [address] [address] * Phosphorus (06/06/2025 10:34 AM EDT) [facility] Signature Phosphate 2.3 2.1 - 4.3 mg/dL 06/07/2025 12:05 AM EDT [facility] Blood Structure of peripheral vein / Unknown 06/06/2025 10:34 AM EDT 06/06/2025 9:16 PM EDT Narrative [facility] - 06/09/2025 9:49 PM EDT FASTING:YES us Chiquita Painter MD LAB BLOOD ORDERABLES Final Resul t Performing Organization Address City/[facility]/ZIP Co de Phone Number [facility] [address], [facility] [place] [address], [place] [phone] [facility] [address] [address] * Creatinine (06/06/2025 10:34 AM EDT) Creatinine 0.76 0.60 - 1.00 mg/dL 06/07/2025 12:05 AM EDT [facility] eGFR 81 > OR = 60 mL/min/1.7 3m2 06/07/2025 12:05 AM EDT [facility] Blood Structure of peripheral vein / Unknown 06/06/2025 10:34 AM EDT 06/06/2025 9:16 PM EDT Narrative [facility] - 06/09/2025 9:49 PM EDT FASTING:YES us Chiquita Painter MD LAB BLOOD ORDERABLES Final Resul t [facility] [address], [place] [address], [place] [phone] [facility] [address] [address] * Calcium (06/06/2025 10:34 AM EDT) Calcium 9.6 8.6 - 10.4 mg/dL 06/07/2025 12:05 AM EDT [facility] Blood Structure of peripheral vein / Unknown 06/06/2025 10:34 AM EDT 06/06/2025 9:16 PM EDT Narrative [facility] - 06/09/2025 9:49 PM EDT FASTING:YES us Chiquita Painter MD LAB BLOOD ORDERABLES Final Resul t [facility] [address], [facility] [place] [address], [place] [phone] [facility] [address] [address] * Albumin (06/06/2025 10:34 AM EDT) Albumin 3.9 3.6 - 5.1 g/dL 06/07/2025 12:05 AM EDT [facility] Blood Structure of peripheral vein / Unknown 06/06/2025 10:34 AM EDT 06/06/2025 9:16 PM EDT Narrative [facility] - 06/09/2025 9:49 PM EDT FASTING:YES us Chiquita Painter MD LAB BLOOD ORDERABLES Final Resul t [facility] [address] [facility] [address], [place] [address], [place] [phone] [facility] [address] [place] [address] * Dexa Scan (10/31/2023) Anatomical Region Laterality Modality Other 10/31/2023 us Onbase Scan [facility] Final Resu lt from Last 3 Months or Most Recently Relevant to Health Maintenance Insurance MEDICARE [facility] Care Teams Ergonomics Consultant Relationship Specialty Start Date End Date Abby Potter [address] [place] [address] [place] [address] PCP - General Internal Medicine 04/14/24
== END 2025-07-14 08:38 | disposition home or self-care (01) ==
LOC: HO.HCS 08:09
PROVIDERS: PCP Internal Medicine; Visit Provider Internal Medicine
DX: I63.9 Cerebral infarction, unspecified (principal); I25.10 Atherosclerotic heart disease of native coronary artery without angina pectoris
CPT/HCPCS: 99214

== ENCOUNTER → 2025-07-14 08:08 | Outpatient (BNVA) | payer MEDICARE, OTHER, SELFPAY | PROVIDERS: PCP Internal Medicine; Visit Provider Internal Medicine | DX: I25.10 Atherosclerotic heart disease of native coronary artery without angina pectoris (principal); Z86.73 Personal history of transient ischemic attack (TIA), and cerebral infarction without residual deficits | CPT/HCPCS: 99212 ==

== ENCOUNTER 2025-07-15 08:19 | Outpatient (AMB) | payer MEDICARE, OTHER, SELFPAY ==
[2025-07-15 08:25] VITALS: BP 122/68; PULSE 69; O2SAT 98; BMI 21.5
--- NOTE | 2025-07-15 08:25 | A.OFFPC_ITS ---
Vital Signs 07/15/25 08:25 Height 5 ft Weight 110 lb BMI 21.5 BP 122/68 Blood Pressure Location Lt brachial Position Sitting Pulse 69 Pulse Source Pulse Oximeter Pulse Oximetry (%) 98 Oxygen Delivery Method Room Air Intake Visit Reasons: SAVANNAH - see comments Allergies naproxen (From NAPROSYN) Allergy (Severe, Verified 07/15/25 08:25) sensitivity niacin (From NIASPAN EXTENDED-RELEASE) Allergy (Severe, Verified 07/15/25 08:25) Rash clarithromycin (From BIAXIN) Allergy (Mild, Verified 07/15/25 08:25) sensitivity codeine (CODEINE) Allergy (Mild, Verified 07/15/25 08:25) Itching esomeprazole (From Nexium) Allergy (Mild, Verified 07/15/25 08:25) Hives fluconazole (From DIFLUCAN) Allergy (Mild, Verified 07/15/25 08:25) sensitivity gatifloxacin (From TEQUIN) Allergy (Mild, Verified 07/15/25 08:25) sensitivity hydrocodone (From Vicodin) Allergy (Mild, Verified 07/15/25 08:25) Rash levofloxacin (From Levaquin) Allergy (Mild, Verified 07/15/25 08:25) sensitivity oxycodone (From Percocet) Allergy (Mild, Verified 07/15/25 08:25) Itching quinidine (QUINIDINE) Allergy (Mild, Verified 07/15/25 08:25) sensitivity Sulfa (Sulfonamide Antibiotics) (SULFA (SULFONAMIDE ANTIBIOTICS)) Allergy (Mild, Verified 07/15/25 08:25) Rash terfenadine (From SELDANE) Allergy (Mild, Verified 07/15/25 08:25) sensitivity tetracycline (TETRACYCLINE) Allergy (Mild, Verified 07/15/25 08:25) sensitivity amitriptyline Allergy (Unknown, Verified 07/15/25 08:25) Unknown cefaclor (From CECLOR) Adverse Reaction (Severe, Verified 07/15/25 08:25) Unknown abaloparatide (From Tymlos) Adverse Reaction (Intermediate, Verified 07/15/25 08:25) Dizziness bupropion (From Wellbutrin) Adverse Reaction (Intermediate, Verified 07/15/25 08:25) Nausea cefdinir Adverse Reaction (Intermediate, Verified 07/15/25 08:25) Stomach Upset montelukast (From Singulair) Adverse Reaction (Mild, Verified 07/15/25 08:25) Headache topiramate (From TOPAMAX) Adverse Reaction (Mild, Verified 07/15/25 08:25) Stomach Upset Medication List - Last Reconciled 07/15/25 by Abby Potter MD atorvastatin 40 mg PO DAILY mvdjvnumkk-odtwmwzlzw-wmp-cod [id number] mg 1 cap PO Q4H PRN cholecalciferol (vitamin D3) TAKE 1 CAPSULE BY MOUTH DAILY docusate sodium (Colace) 100 mg PO DAILY Eliquis (apixaban) 5 mg PO BID 90 days NS escitalopram oxalate (Lexapro) 10 mg PO DAILY estradiol 0.01%(0.1mg/gram) (Estrace) pea size amount to urethra vaginally daily famotidine (Pepcid) 40 mg PO BEDTIME lidocaine 4% (Lidocaine Pain Relief) 1 patch See Protocol transdermal DAILY loratadine 10 mg PO DAILY PRN nebulizers As directed polyethylene glycol 3350 (Miralax) 17 grams PO DAILY 30 days promethazine 12.5 mg PO Q6H PRN NS sennosides-docusate sodium 8.6-50 mg (Senna with Docusate Sodium) 2 tab-caps (2 x 8.6-50 mg) PO BEDTIME 30 days Symbicort 80-4.5 mcg/actuation (budesonide-formoterol) 2 puffs inhalation BID NS tramadol 50 mg PO BID PRN 21 days NS Wellbutrin SR (bupropion HCl) 100 mg PO BEDTIME NS Tobacco use date assessed: 05/20/25 Fall risk assessment: No Falls in past year Last assessed Fall Risk: 07/15/25 Dental Screening Dental Screen Date: 05/20/25 [facility] Medical History MCI (mild cognitive impairment) Migraine with aura, with intractable migraine, so stated, with status migrainosus Depression Hiatal hernia Anxiety and depression Neck pain Cervical disc disease Muscle tension headache Paresthesia of skin MCI (mild cognitive impairment) with memory loss Vertigo Myopathy Unspecified optic neuritis Memory change Mgrn w aura w intrc mgrn Sinusitis Stroke Migraine Carpal tunnel syndrome Hemiparesis Chest pain Sinus congestion Cough Weight loss Polyarthralgia Fall Shoulder pain, right Back pain Nausea Palpitation Headache, post-traumatic, acute Scalp irritation Anemia Encounter for vitamin deficiency screening Renal cyst Dense breast Breast cancer screening by mammogram Acute bronchitis Ocular migraine Hyperlipidemia History of CVA (cerebrovascular accident) (~2020) Tubular adenoma of colon (~2005) SERG (obstructive sleep apnea) Nasal vestibulitis Degeneration, intervertebral disc, cervical Dry eye PONV (postoperative nausea and vomiting) Arthritis of neck Cerebral microvascular disease Atherosclerotic cardiovascular disease Precordial chest pain URI (upper respiratory infection) Overactive bladder Microscopic hematuria Urinary urgency Osteoporosis (~1999) Mycobacterial disease GERD (gastroesophageal reflux disease) Pulmonary nodules COPD (chronic obstructive pulmonary disease) Surgical History History of fusion of cervical spine History of sinus surgery History of colonoscopy History of esophagogastroduodenoscopy (EGD) History of bladder suspension procedure Family History Son No problems noted. Social History Household Members: Spouse Housing: Condominium Do you presently have visiting nurse or other home services: No Alcohol intake: never Patient Tobacco Use Status: Never used Tobacco Tobacco use type: Cigarette Years Smoked: parent and smoker e-Cigarette/Vaping Use: Never Used Second Hand Smoke Exposure: Yes Advance Directives Date on File: 08/16/20 service: No Current occupational status: retired Current occupation: right hand Cognitive needs: No Hearing needs: Yes (hearing aides) Vision needs: Yes (Glasses) Questionnaire PHQ-9 Over the last 2 weeks, how often have you been bothered by any of the following problems? 1. Little interest or pleasure in doing things: more than half the days 2. Feeling down, depressed, or hopeless: several days 3. Trouble falling or staying asleep, or sleeping too much: not at all 4. Feeling tired or having little energy: more than half the days 5. Poor appetite or overeating: not at all 6. Feeling bad about yourself - or that you are a failure or have let yourself or your family down: not at all 7. Trouble concentrating on things, such as reading the newspaper or watching television: more than half the days 8. Moving or speaking so slowly that other people could have noticed. Or the opposite - being so fidgety or restless that you have been moving around a lot more than usual: not at all 9. Thoughts that you would be better off or of hurting yourself in some way: not at all Total score: 7 Depression Screening Interpretation: Positive Depression Screening Done: Yes Source: Developed by Drs. Augie Espinoza, Michael Redding and colleagues, with an educational aniya from [employer]. Thrive Questionnaire Date Thrive assessed: 03/29/25 I am a: Patient What is your living situation today?: I have a steady place to live Within the past 12 months, did the food you bought not last and you didn't have the money to get more?: Never true Within the past 12 months, did you worry whether your food would run out before you got money to buy more?: Never true Do you have trouble paying for medicines?: No Do you have trouble getting transportation to medical appointments?: No Do you have trouble paying your heating and electricity bill?: No Do you have trouble taking care of your child, family member or friend?: No Do you have trouble with day-to-day activities such as bathing, preparing meals, shopping, managing finances, etc.?: No Are you currently unemployed and looking for a job?: No Are you interested in more education?: No Please select the resources that you would like help with: None Currently or been in a relationship where the following occur: No concerns reported THRIVE Score: 0 AUDIT C Alcohol Use Questionnaire (AUDIT-C) 1. How often do you have a drink containing alcohol?: Never 3. How often do you have six or more drinks on one occasion?: Never Total Score: 0 SAVANNAH-7 AMB Questionnaire SAVANNAH-7 Date SAVANNAH - 7 assessed: 03/29/25 Source: Developed by Drs. Augie Espinoza, Yue Griffin, Michael Gallo and colleagues, with an educational aniya from [employer]. Physical exam (Primary Care) Vital Signs: Last Vital Signs Pulse 69 07/15/25 08:25 BP 122/68 07/15/25 08:25 Pulse Ox 98 07/15/25 08:25 Oxygen Delivery Method Room Air 07/15/25 08:25 BMI result Body Mass Index 21.5 Tobacco/Smoking Status: Tobacco use Status Tobacco use date assessed 05/20/25 07/15/25 08:27 Patient Tobacco Use Status Never used Tobacco 07/15/25 08:27 Tobacco use type Cigarette 07/15/25 08:27 e-Cigarette/Vaping Use Never Used 07/15/25 08:27 PHQ-9: PHQ-9 Score PHQ-9: Total score 7 07/15/25 09:04 Depression Screening Interpretation: Positive Thrive Assessment: Date of Thrive Assessment Date Thrive assessed 03/29/25 07/15/25 08:27 Currently or been in a relationship where the following occur: No concerns reported Const General: alert; No acute distress Eyes Conjunctivae: conjunctivae normal Resp Auscultation: clear to auscultation bilaterally Cardio Rate: regular rate Rhythm: regular rhythm GI Inspection: Yes normal to inspection Extrem General: Yes normal to inspection and No edema Coding Level of Care Code Est Pt Level 4 (50543) Complex EM visit Add On G2211 Diagnoses Hyperlipidemia E78.5 Gastroesophageal reflux disease with esophagitis without hemorrhage K21.00 Esophagitis bleeding: without hemorrhage Esophagitis presence: with esophagitis History of CVA (cerebrovascular accident) Z86.73 Simple chronic bronchitis J41.0 COPD type: chronic bronchitis Chronic bronchitis type: simple Generalized anxiety disorder F41.1 Assessment & Plan Assessment & Plan (1) Hyperlipidemia: Code(s): E78.5 - Hyperlipidemia, unspecified Category: Medical Plan: Avoid fried foods, chicken skin, eggs, butter margarine, pastries and meat. Be it pork or beef they have a lot of cholesterol LDL goal of less than 70 and triglyceride of less than 150 patient is on atorvastatin 40 mg once a day (2) GERD (gastroesophageal reflux disease): Code(s): K21.9 - Gastro-esophageal reflux disease without esophagitis Category: Medical Qualifiers: Esophagitis bleeding: without hemorrhage Esophagitis presence: with esophagitis Qualified Code(s): K21.00 - Gastro-esophageal reflux disease with esophagitis, without bleeding Plan: Avoid the foods that causes that usually spicy foods, tomato products, juices, coffee, soda and foods that your sensitive to. After eating do not lie down, allow 3-4 hours before in lie down. And keep the head of bed above 30 degrees to avoid the acid from going up. (3) History of CVA (cerebrovascular accident): Onset Date: ~2020 Comment: (right cerebellar hemisphere infarct - tx tPA 08/03/2021) Code(s): Z86.73 - Personal history of transient ischemic attack (TIA), and cerebral infarction without residual deficits Category: Medical Plan: Patient on anticoagulation with Eliquis 5 mg twice a day (4) COPD (chronic obstructive pulmonary disease): Code(s): J44.9 - Chronic obstructive pulmonary disease, unspecified Category: Medical Qualifiers: COPD type: chronic bronchitis Chronic bronchitis type: simple Qualified Code(s): J41.0 - Simple chronic bronchitis Plan: Patient on albuterol inhaler and Symbicort (5) Generalized anxiety disorder: Code(s): F41.1 - Generalized anxiety disorder Category: Medical Plan: Patient has been placed on Bue per prior on/Wellbutrin and Lexapro Plan History of Present Illness The patient is a 79-year-old female presenting for a follow-up visit. The patient has a history of cervical disc degeneration and osteoporosis, with the last bone density test conducted in October 2023. She also has obstructive sleep apnea and gastroesophageal reflux disease (GERD). The patient has chronic obstructive pulmonary disease (COPD) and a history of cerebrovascular accident (CVA). She also has hypercholesterolemia and generalized anxiety disorder. The patient has an overactive bladder and a patent foramen ovale (PFO), with a small PFO and yhxnw-bn-gebv shunting during Valsalva maneuver noted on echocardiogram. However, there was no evidence of transfer bubbles during ceiling contrast, and it was not hemodynamically significant. The patient is empirically on anticoagulation therapy. The patient reports left shoulder and wrist pain, for which she was sent for physical therapy. Shoulder X-rays showed mild degenerative changes in the left shoulder joint, CP PV arthropathy, and minimal AC joint osteophytosis. The patient's last blood work in April showed mild anemia with a hemoglobin level of 11.9 g/dL. Her liver function and cholesterol levels were tested in February, with an LDL level of 47 mg/dL. Health Maintenance - Bone density test conducted in October 2023 - Last colonoscopy in November 2019, no further colonoscopies planned Social History Review of Systems Physical Exam Results - Echocardiogram: Small PFO with gbvnk-ux-phyj shunting during Valsalva, no transfer bubbles during ceiling contrast - Shoulder X-rays: Mild degenerative changes in left shoulder joint, CP PV arthropathy, minimal AC joint osteophytosis - Blood work (April): Mild anemia with hemoglobin 11.9 g/dL - Cholesterol levels (February): LDL 47 mg/dL Plan Patient was informed and verbally consented to the use of an ambient scribe for clinic note documentation during this visit. 1. Cervical Disc Degeneration The patient has cervical disc degeneration, which is being monitored for prog ression and symptom management. 2. Osteoporosis The patient has osteoporosis, with the last bone density test conducted in October 2023 to monitor bone health. 3. Obstructive Sleep Apnea The patient has obstructive sleep apnea, which is managed with appropriate interventions. 4. Gastroesophageal Reflux Disease (Gerd) The patient has gastroesophageal reflux disease (GERD), managed with lifestyle modifications and medications as needed. 5. Chronic Obstructive Pulmonary Disease (Copd) The patient has chronic obstructive pulmonary disease (COPD), managed with inhal ers including albuterol and Symbicort. 6. History Of Cerebrovascular Accident (Cva) The patient has a history of cerebrovascular accident (CVA) and is on anticoagulation therapy with Eliquis 5 mg twice a day. 7. Hypercholesterolemia The patient has hypercholesterolemia, with an LDL goal of less than 70 mg/dL, managed with atorvastatin 40 mg once a day. 8. Generalized Anxiety Disorder The patient has generalized anxiety disorder, managed with medications including bupropion and Lexapro. 9. Overactive Bladder The patient has overactive bladder, managed with appropriate interventions. 10. Patent Foramen Ovale (Pfo) The patient has a patent foramen ovale (PFO) with ehinx-vr-mhil shunting during Valsalva, not hemodynamically significant, and is on anticoagulation therapy. 11. Left Shoulder Pain The patient reports left shoulder pain, with X-rays showing mild degenerative changes, managed with physical therapy. 12. Left Wrist Pain The patient reports left wrist pain, managed with physical therapy. 13. Mild Anemia The patient has mild anemia with a hemoglobin level of 11.9 g/dL, monitored for any changes. Discussion Notes Patient Instructions Orders: Orders Complete Blood Count Auto Diff 2 Months R0 - Other chest pain Comprehensive Met. Panel 2 Months R0 - Other chest pain IRON PROFILE 2 Months R0 - Other chest pain Reticulocyte Count 2 Months R0 - Other chest pain Vitamin B12 and Folate 2 Months R07. - Other chest pain Thyroid Stimulating Hormone 2 Months R07. - Other chest pain UA CC w/rflx Micro + Cult 2 Months R07. - Other chest pain, R30.0 - Dysuria Ferritin 2 Months R07. - Other chest pain Free T4 (Free Thyroxine) 2 Months R07. - Other chest pain Medications: Refilled Symbicort 80-4.5 mcg/actuation (budesonide-formoterol) 2 puffs inhalation BID 10.2 grams 3RF NS J41.0 - Simple chronic bronchitis
--- OUTSIDE RECORDS SUMMARY | 2025-07-15 08:40 | XMS_ITS | Clinical Summary ---
Author Organization [facility] Address [address] [place] [phone] Phone Care Team Providers Care Bisque Tile Burner Name Role Phone Vernon Mojica MD Primary [...] and muscle strengthening exercises. Follow closely with senior hardware design engineer as scheduled Visit for monitoring Reclast [...] Continue as prescribed. Close follow-up with treating/prescribing global marketing coordinator Assessment & Plan (01/06/2020 1:22 PM EST): Continue as prescribed. Close follow-up with treating/prescribing global marketing coordinator Assessment & Plan (03/31/2019 8:43 AM EDT): Continue as prescribed. Close follow-up with treating/prescribing global marketing coordinator Primary osteoarthritis involving multiple joints 10/06/2017 Assessment [...] Formulation 11/10(Deferred: Other - , Ordered By: [id number]),08/03/2012 Pneumococcal conjugate PCV13 06/22/2015 Pneumococcal polysaccharide PPSV23 [...] bone mineral density since 2018. POS - [id number] Narrative 04/20/2019 9:11 AM EDT This is [...] at L3-4 and was calculated at 0.667 gm/jd4xfqq a T-score of - 2.8 and Z-score of -0.8, falling within the WHOclassification of osteoporosis, representing an interval decline of 3.2%since 2018 which is not felt to be within the range of statisticalsignificance.. Total bone mineral density in the right hip was calculated at 0.675 gm/dj5cbsz a T-score of -2.2 and Z-score of [...] hip bone mineral densitysince 2018. POS - [id number] us Johnna I Klich-Navneet MD IMG BD BONE DENSITY DEXA Final Result * (ABNORMAL) Historical Lab (02/23/2013 10:57 AM EDT) Thyroid Stimulating Hormone 0.09(Abno rmally L) 0.40 - 5.00 uU/ml [facility] 02/23/2013 10:5 7 AM EDT 02/23/2013 1:14 PM EDT Comment:BLOOD us Micheal Larsen MD LAB BLOOD ORDERABLES Final Result [address] [id number] from Last 3 Months or Most Recently Relevant to Health Maintenance Insurance MEDICARE PART A & B [facility] MED[employer] ENHANCE SUPPLEMENT MEDICARE PART A & B [facility] MEDICARE ENHANCE SUPPLEMENT MEDICARE PART A & B [facility] MEDICARE ENHANCE SUPPLEMENT MEDICARE PART A & B MEDICARE ENHANCE SUPPLEMENT MEDICARE PART A & B [id number] [place] [address] MEDICARE ENHANCE SUPPLEMENT MEDICARE PART A & B [facility] MEDICARE ENHANCE SUPPLEMENT MEDICARE PART A & B [facility] MEDICARE ENHANCE SUPPLEMENT MEDICARE PART A & B [facility] MEDICARE ENHANCE SUPPLEMENT MEDICARE PART A & B [facility] MEDICARE ENHANCE SUPPLEMENT MEDICARE PART A & B [facility] MEDICARE ENHANCE SUPPLEMENT Care Teams Bisque Tile Burner Relationship Specialty Start Date End Date Vernon Mojica MD [address] [place] [address] NADIASAAD MURPHY [id number] PCP - General Internal Medicine 07/03/22 Additional Source Comments The information contained in this document represents components of the legal health record. It is not the complete legal health record.[facility]
--- OUTSIDE RECORDS SUMMARY | 2025-07-15 08:40 | XMS_ITS | Encounter Summary ---
Author Organization [facility] Address [address] [place] [address] Care Team Providers Care Supercharger Repair Supervisor Name Role Phone TariqMarleeelidia Marc Primary Care Provider [phone] Reason for Visit * Reason Onset Date Comments PAC Patient Request Call Back 06/08/2024 Encounter Details Date Type Department Care Team (Late st Contact Info) Description 06/08/2024 Telephone [facility] [address] [place] [phone] Telephone Intake, Staff PAC Patient Request Call [...] for 9am. Patient can be reached at [phone]. Thank you - PAC documented in this encounter Plan of Treatment Upcoming Encounters Date Type Department Care Team (Late st Contact Info) Description 11/07/2025 9:30 AM EST Follow-Up [facility] [address] [place] [address] Fretted Instrument Inspector: Carlos Diop MD [address] [place] [id number] 12/20/2025 9:00 AM EST Clinical Support [facility] [address] [place] [id number] Fretted Instrument Inspector: Marlena Hurst documented as of this encounter Visit Diagnoses Not on filedocumented in this encounter Care Teams Supercharger Repair Supervisor Relationship Specialty Start Date End Date Abby Potter [address] [place] [address] [place] [id number] PCP - General Internal Medicine 04/14/24 documented as of this encounter
--- OUTSIDE RECORDS SUMMARY | 2025-07-15 08:40 | XMS_ITS | Clinical Summary ---
Author Organization [facility] Address [address] [place] [address] Care Team Providers Care Java Performance Engineer Name Role Phone TariqAbby Monico Primary Care Provider [phone] Allergies Active Allergy Reactions Criticality Noted Date [...] Type Department Care Team Description 07/07/2025 Telephone [facility] [address] [place] [address] Prints And Drawings Curator: Marlena Hurst Telephone Intake, Staff PAC Clinical Questions 06/15/2025 9:00 AM EDT Clinical Support [facility] [address] [place] [address] Prints And Drawings Curator: Rose Castle LPN Age-related osteoporosis without current pathological fracture (Primary Dx) 04/22/2025 Orders Only [facility] [address] [place] [address] Prints And Drawings Curator: Carlos Diop MD from Last 3 Months [...] Info) Description 11/07/2025 9:30 AM EST Follow-Up [facility] [address] [place] [address] Prints And Drawings Curator: Carlos Diop MD [address] [place] [address] [phone] 12/20/2025 9:00 AM EST Clinical Support [facility] [address] [place] [address] [phone] Prints And Drawings Curator: Marlena Hurst Health Maintenance Due Date Last [...] this topic Procedures * Due to [place] law, this organization might not be sharing [...] Health Maintenance Results * Due to [place] law, this organization might not be sharing [...] loss. For additional information, please refer to https://education.Chargemaster/faq/BLY568 (This link is being provided for informational/ educational purposes only.) Blood Structure of peripheral vein / Unknown 06/06/2025 10:34 AM EDT 06/08/2025 7:27 AM EDT Narrative [facility] - 06/09/2025 9:49 PM EDT FASTING:YES us Chiquita Painter MD LAB BLOOD ORDERABLES Final Resul t [facility] [address] [facility] 3rd Floor, [place] [address], [place] [phone] [facility] [place] [address] [place] [address] * Vitamin D, 25-Hydroxy, Total, Immunoassay (06/06/2025 10:34 AM EDT) Calcidiol+ercalc idiol 63 30 - 100 ng/mL 06/06/2025 10:13 PM EDT [facility] Comment: Vitamin D Status 25-OH Vitamin D: Deficiency: <20 ng/mL Insufficiency: 20 - 29 ng/mL Optimal: > or = 30 ng/mL For 25-OH Vitamin D testing on patients on D2-supplementation and patients for whom quantitation of D2 and D3 fractions is required, the QuestAssureD(TM) 25-OH VIT D, (D2,D3), LC/MS/MS is recommended: order code [id number] (patients >2yrs). See Note 1 Note 1 For additional information, please refer to http://education.Cannae/faq/MTB451 (This link is being provided for informational/ educational purposes only.) Blood Structure of peripheral vein / Unknown 06/06/2025 10:34 AM EDT 06/06/2025 9:16 PM EDT Narrative [facility] - 06/09/2025 9:49 PM EDT FASTING:YES us Chiquita Painter MD LAB BLOOD ORDERABLES Final Resul t Performing Organization Address City/[facility]/ZIP Co de Phone Number [facility] [address], [place] [address], [place] [phone] [facility] [address] [address] * Phosphorus (06/06/2025 10:34 AM EDT) [facility] Signature Phosphate 2.3 2.1 - 4.3 mg/dL 06/07/2025 12:05 AM EDT [facility] Blood Structure of peripheral vein / Unknown 06/06/2025 10:34 AM EDT 06/06/2025 9:16 PM EDT Narrative [facility] - 06/09/2025 9:49 PM EDT FASTING:YES us Chiquita Painter MD LAB BLOOD ORDERABLES Final Resul t Performing Organization Address City/[facility]/ZIP Co de Phone Number [facility] [address], [facility] [place] [address], [place] [phone] [facility] [address] [address] * Creatinine (06/06/2025 10:34 AM EDT) Creatinine 0.76 0.60 - 1.00 mg/dL 06/07/2025 12:05 AM EDT [facility] eGFR 81 > OR = 60 mL/min/1.7 3m2 06/07/2025 12:05 AM EDT [facility] Blood Structure of peripheral vein / Unknown 06/06/2025 10:34 AM EDT 06/06/2025 9:16 PM EDT Narrative [facility] - 06/09/2025 9:49 PM EDT FASTING:YES us Chiquita Painter MD LAB BLOOD ORDERABLES Final Resul t [facility] [address], [place] [address], [place] [phone] [facility] [address] [address] * Calcium (06/06/2025 10:34 AM EDT) Calcium 9.6 8.6 - 10.4 mg/dL 06/07/2025 12:05 AM EDT [facility] Blood Structure of peripheral vein / Unknown 06/06/2025 10:34 AM EDT 06/06/2025 9:16 PM EDT Narrative [facility] - 06/09/2025 9:49 PM EDT FASTING:YES us Chiquita Painter MD LAB BLOOD ORDERABLES Final Resul t [facility] [address], [facility] [place] [address], [place] [phone] [facility] [address] [address] * Albumin (06/06/2025 10:34 AM EDT) Albumin 3.9 3.6 - 5.1 g/dL 06/07/2025 12:05 AM EDT [facility] Blood Structure of peripheral vein / Unknown 06/06/2025 10:34 AM EDT 06/06/2025 9:16 PM EDT Narrative [facility] - 06/09/2025 9:49 PM EDT FASTING:YES us Chiquita Painter MD LAB BLOOD ORDERABLES Final Resul t [facility] [address] [facility] 3rd Floor, [place] [address], [place] [phone] [facility] [address] [place] [address] * Dexa Scan (10/31/2023) Anatomical Region Laterality Modality Other 10/31/2023 us Onbase Scan [facility] Final Resu lt from Last 3 Months or Most Recently Relevant to Health Maintenance Insurance MEDICARE [facility] Care Teams Java Performance Engineer Relationship Specialty Start Date End Date Abby Potter [address] [place] [address] [place] [address] PCP - General Internal Medicine 04/14/24
== END 2025-07-15 09:18 | disposition home or self-care (01) ==
LOC: HO.HMCH 08:20
PROVIDERS: PCP Internal Medicine; Visit Provider Internal Medicine
DX: E78.5 Hyperlipidemia, unspecified (principal); K21.00 Gastro-esophageal reflux disease with esophagitis, without bleeding; Z86.73 Personal history of transient ischemic attack (TIA), and cerebral infarction without residual deficits; J41.0 Simple chronic bronchitis; F41.1 Generalized anxiety disorder

== ENCOUNTER → 2025-07-15 08:19 | Outpatient (BNVA) | payer MEDICARE, OTHER, SELFPAY | PROVIDERS: PCP Internal Medicine; Visit Provider Internal Medicine | DX: E78.5 Hyperlipidemia, unspecified (principal); K21.00 Gastro-esophageal reflux disease with esophagitis, without bleeding; J41.0 Simple chronic bronchitis; F41.1 Generalized anxiety disorder; Z86.73 Personal history of transient ischemic attack (TIA), and cerebral infarction without residual deficits | CPT/HCPCS: 99212 ==

== ENCOUNTER 2025-08-25 12:46 | Outpatient (REF) | payer MEDICARE, OTHER, SELFPAY ==
--- NOTE | ~2025-08-25 | XR_ITS ---
EXAMINATION: XR LUMBOSACRAL SPINE CLINICAL INFORMATION: M54.50 - Low back pain, unspecified COMPARISON: 11/09/2021. TECHNIQUE: Three views of the lumbosacral spine. FINDINGS: There is a moderate left convex scoliosis, apex at L2-3. There is a rotatory component. Maximum Thayer angle is estimated at 27 degrees. There is a normal lumbar lordosis. There is a subtle degenerative retrolisthesis of L2 on L3. Alignment otherwise appears grossly anatomic within the limitations of obliquity on the lateral projection from scoliosis. There is no fracture, compression deformity, or suspicious bone lesion. There are sclerotic endplate changes present at L2-3. Severe disc degeneration is present at L2-3. There is otherwise mild to moderate disc degeneration at the lower levels. There is normal facet alignment. There are hypertrophic degenerative facet changes throughout, most notable spanning L3-S1. Soft tissues demonstrate vascular calcifications. XR/XR lumbar spine 2-3V IMPRESSION: 1. Stable examination from 2021. 2. No acute bony or soft tissue abnormality of the lumbar spine. 3. Moderate left convex scoliosis, estimated at 27 degrees, with rotatory component. 4. Moderate multilevel lumbar spondylosis, most significant at L2-3. Electronically signed by: Jeffrey Ceja MD 08/25/2025 02:09 PM EDT
--- OUTSIDE RECORDS SUMMARY | 2025-08-25 17:07 | XMS_ITS | Encounter Summary ---
Author Organization [facility] Address [address] [place] [address] Care Team Providers Care Senior Advocate Name Role Phone Lavell Marcos MD Primary Care Provider Jennifer Sylvester MD Primary Care Provider [phone] [facility], Pcp Primary Care Provider Unavailabl e Encounter Details Date Type Department Care Team Description 04/05/2020 Jewelry Estimator Report Medical Records [address] [place] [address] Raj Hardwick MD Social History Tobacco Use [...] filedocumented in this encounter Care Teams Senior Advocate Relationship Specialty Start Date End Date Lavell Marcos MD [address] [place] [address] PCP - General 04/06/07 02/08/21 Jennifer Sylvester MD [address] [place] [address] PCP - General Internal Medicine 02/09/21 01/22/23 [facility], Pcp [address] [place] [address] PCP - General Internal Medicine 01/23/23 documented as of this encounter
--- OUTSIDE RECORDS SUMMARY | 2025-08-25 17:07 | XMS_ITS | Encounter Summary ---
Author Organization [facility] Address [address] [place] [address] Care Team Providers Care Ruby Software Developer Name Role Phone Lavell Marcos MD Primary Care Provider [phone] Jennifer Sylvester MD Primary Care Provider [phone] [facility], Pcp Primary Care Provider [facility] Encounter Details Date Type Department Care Team Description 10/09/2015 Hospitality Workers Report Medical Records [address] [place] [address] Bib Sandoval MD Social History Tobacco Use [...] on filedocumented in this encounter Care Teams Ruby Software Developer Relationship Specialty Start Date End Date Lavell Marcos MD [address] [place] [address] PCP - General 04/06/07 02/08/21 Jennifer Sylvester MD [address] [place] [address] PCP - General Internal Medicine 02/09/21 01/22/23 [facility], Pcp [address] [place] [address] PCP - General Internal Medicine 01/23/23 documented as of this encounter
--- OUTSIDE RECORDS SUMMARY | 2025-08-25 17:07 | XMS_ITS | Encounter Summary ---
Author Organization [facility] Address [address] [place] [address] Care Team Providers Care Stoker Mechanic Name Role Phone Lavell Marcos MD Primary Care Provider Jennifer Sylvester MD Primary Care Provider [phone] [facility], Pcp Primary Care Provider Unavailabl e Reason for Visit * Reason Onset Date Comments medication problems 04/06/2020 Encounter Details Date Type Department Care Team Description 04/06/2020 Telephone Adult Medicine - [address] [address] Lavell Marcos MD [address] [place] [address] medication problems Social History Tobacco Use Types [...] Miscellaneous Notes * Telephone Encounter - Jessica Cedeno M.A. - 04/06/2020 2:03 PM EDT Read message to Pt. She understands. * Telephone Encounter - Lavell Marcos MD - 04/06/2020 12:30 PM EDT Let her know I reviewed her allergies and medication list and this should be okay. The main thing for her to do is watch out for any heartburn or GI side effects * Telephone Encounter - Vida Pleitez M.A. - 04/06/2020 12:06 PM EDT Please advise * Telephone Encounter - Aleksandra Wallace - 04/06/2020 11:27 AM EDT Who is calling? The patient Name of the medication Diclofenac What is the specific problem or interaction? Patients neurosurgeon put her on this medication and patient just wants to speak with someone to make sure it is okay to take with her other medications. If the patient is having a problem with taking the med - how long has the problem been going on? N/A documented in this encounter Plan of Treatment Not on file documented as of this encounter Visit Diagnoses Not on filedocumented in this encounter Care Teams Stoker Mechanic Relationship Specialty Start Date End Date Lavell Marcos MD [address] [place] [address] PCP - General 04/06/07 02/08/21 Jennifer Sylvester MD [address] [place] [address] PCP - General Internal Medicine 02/09/21 01/22/[address] [address] PCP - General Internal Medicine 01/23/23 documented as of this encounter
--- OUTSIDE RECORDS SUMMARY | 2025-08-25 17:07 | XMS_ITS | Encounter Summary ---
Author Organization [facility] Address [address] [place] [address] Care Team Providers Care Medical Management Trainer Name Role Phone Lavell Marcos MD Primary Care Provider [phone] Jennifer Sylvester MD Primary Care Provider [phone] [facility], Pcp Primary Care Provider [facility] e Encounter Details Date Type Department Care Team Description 11/26/2018 Pt. Non Urgent Medic al Question Adult Medicine [address] [phone] Luis Migule Gomez MD Social History Tobacco Use Types [...] filedocumented in this encounter Care Teams Medical Management Trainer Relationship Specialty Start Date End Date Lavell Marcos MD [address] [place] [address] PCP - General 04/06/07 02/08/21 Jennifer Sylvester MD [address] [place] [address] PCP - General Internal Medicine 02/09/21 01/22/23 [facility], [address] [address] PCP - General Internal Medicine 01/23/23 documented as of this encounter
--- OUTSIDE RECORDS SUMMARY | 2025-08-25 17:07 | XMS_ITS | Encounter Summary ---
Author Organization [facility] Address [address] [place] [address] Care Team Providers Care Transplant Nurse Practitioner Name Role Phone Lavell Marcos MD Primary Care Provider Jennifer Sylvester MD Primary Care Provider [phone] [facility], Pcp Primary Care Provider Unavailabl e Reason for Visit * Reason Onset Date Comments medication problems 12/10/2018 Encounter Details Date Type Department Care Team Description 12/10/2018 Telephone Adult Medicine [facility] [address] [place] [address] Lavell Marcos MD [address] [place] [address] medication problems Social History Tobacco Use Types [...] of her sensitivity to other narcotics Order: [id number] Date/Time Signed: 12/10/2018 11:27 AM What is [...] on filedocumented in this encounter Care Teams Transplant Nurse Practitioner Relationship Specialty Start Date End Date Lavell Marcos MD [address] [place] [address] PCP - General 04/06/07 02/08/21 Jennifer Sylvester MD [address] [place] [address] PCP - General Internal Medicine 02/09/21 01/22/[address] [address] PCP - General Internal Medicine 01/23/23 documented as of this encounter
--- OUTSIDE RECORDS SUMMARY | 2025-08-25 17:07 | XMS_ITS | Encounter Summary ---
Author Organization [facility] Address [address] [place] [address] Care Team Providers Care Gmat Tutor Name Role Phone Lavell Marcos MD Primary Care Provider Jennifer Sylvester MD Primary Care Provider [phone] [facility], Pcp Primary Care Provider Unavailabl e Encounter Details Date Type Department Care Team Description 01/21/2020 Blueprint Cutter Report Medical Records [address] [place] [address] Eduardo Lino MD Social History Tobacco Use [...] on filedocumented in this encounter Care Teams Gmat Tutor Relationship Specialty Start Date End Date Lavell Marcos MD [address] [place] [address] PCP - General 04/06/07 02/08/21 Jennifer Sylvester MD [address] [place] [address] PCP - General Internal Medicine 02/09/21 01/22/23 [facility], Pcp [address] [place] [address] PCP - General Internal Medicine 01/23/23 documented as of this encounter
--- OUTSIDE RECORDS SUMMARY | 2025-08-25 17:07 | XMS_ITS | Encounter Summary ---
Author Organization [facility] Address [address] [place] [address] Care Team Providers Care Pipeline Inspector Name Role Phone Lavell Marcos MD Primary Care Provider Jennifer Sylvester MD Primary Care Provider [phone] [facility], Pcp Primary Care Provider Unavailabl e Encounter Details Date Type Department Care Team Description 12/10/2018 Dialysis Rn Report Medical Records [address] [place] [address] Rafat Gregorio MD Social History Tobacco Use [...] on filedocumented in this encounter Care Teams Pipeline Inspector Relationship Specialty Start Date End Date Lavell Marcos MD [address] [place] [address] PCP - General 04/06/07 02/08/21 Jennifer Sylvester MD [address] [place] [address] PCP - General Internal Medicine 02/09/21 01/22/23 [facility], Pcp [address] [place] [address] PCP - General Internal Medicine 01/23/23 documented as of this encounter
--- OUTSIDE RECORDS SUMMARY | 2025-08-25 17:07 | XMS_ITS | Encounter Summary ---
Author Organization [facility] Address [address] [place] [address] Care Team Providers Care International Sourcing Manager Name Role Phone Lavell Marcos MD Primary Care Provider [phone] Jennifer Sylvester MD Primary Care Provider [phone] [facility], Pcp Primary Care Provider Unavailabl e Encounter Details Date Type Department Care Team Description 03/17/2015 Release of Information Medical Records [address] [place], [place] [phone] Abstract, Provider Social History Tobacco Use Types [...] filedocumented in this encounter Care Teams International Sourcing Manager Relationship Specialty Start Date End Date Lavell Marcos MD [address] [place] [address] PCP - General 04/06/07 02/08/21 Jennifer Sylvester MD [address] [place] [address] [phone] PCP - General Internal Medicine 02/09/21 01/22/23 [facility], Pcp [address] [place] [address] PCP - General Internal Medicine 01/23/23 documented as of this encounter
--- OUTSIDE RECORDS SUMMARY | 2025-08-25 17:07 | XMS_ITS | Encounter Summary ---
Author Organization [facility] Address [address] [place] [address] Care Team Providers Care Bed Spring Maker Name Role Phone Lavell Marcos MD Primary Care Provider [phone] Jennifer Sylvester MD Primary Care Provider [phone] [facility], Pcp Primary Care Provider [facility] e Encounter Details Date Type Department Care Team Description 01/07/2019 Occupational Therapy Professor Report Medical Records [address] [place] [address] Abstract, Provider Social History Tobacco Use Types [...] on filedocumented in this encounter Care Teams Bed Spring Maker Relationship Specialty Start Date End Date Lavell Marcos MD [address] [place] [address] PCP - General 04/06/07 02/08/21 Jennifer Sylvester MD [address] [place] [address] [phone] PCP - General Internal Medicine 02/09/21 01/22/23 [facility], Pcp [address] [place] [address] PCP - General Internal Medicine 01/23/23 documented as of this encounter
--- OUTSIDE RECORDS SUMMARY | 2025-08-25 17:07 | XMS_ITS | Encounter Summary ---
Author Organization [facility] Address [address] [place] [address] Care Team Providers Care Radiology Transporter Name Role Phone Lavell Marcos MD Primary Care Provider Jennifer Sylvester MD Primary Care Provider [phone] [facility], Pcp Primary Care Provider Unavailabl e Encounter Details Date Type Department Care Team Description 02/07/2020 Green Feed Attendant Report Medical Records [address] [place] [address] Raj Hardwick MD Social History Tobacco Use [...] filedocumented in this encounter Care Teams Radiology Transporter Relationship Specialty Start Date End Date Lavell Marcos MD [address] [place] [address] PCP - General 04/06/07 02/08/21 Jennifer Sylvester MD [address] [place] [address] PCP - General Internal Medicine 02/09/21 01/22/23 [facility], Pcp [address] [place] [address] PCP - General Internal Medicine 01/23/23 documented as of this encounter
--- OUTSIDE RECORDS SUMMARY | 2025-08-25 17:07 | XMS_ITS | Encounter Summary ---
Author Organization [facility] Address [address] [place] [address] Care Team Providers Care Machine Assembler Supervisor Name Role Phone Lavell Marcos MD Primary Care Provider [phone] Jennifer Sylvester MD Primary Care Provider [phone] [facility], Pcp Primary Care Provider Unavailabl e Encounter Details Date Type Department Care Team Description 12/29/2018 Transfer Records Medical Records [address] [place] [address] [place] [address] [place] [address] Social History Tobacco Use Types Packs/Day Years [...] filedocumented in this encounter Care Teams Machine Assembler Supervisor Relationship Specialty Start Date End Date Lavell Marcos MD [address] [place] [address] PCP - General 04/06/07 02/08/21 Jennifer Sylvester MD [address] [place] [address] PCP - General Internal Medicine 02/09/21 01/22/23 [facility], Pcp [address] [place] [address] PCP - General Internal Medicine 01/23/23 documented as of this encounter
--- OUTSIDE RECORDS SUMMARY | 2025-08-25 17:07 | XMS_ITS | Encounter Summary ---
Author Organization [facility] Address [address] [place] [address] Care Team Providers Care Solid Plasterer Name Role Phone Lavell Marcos MD Primary Care Provider [phone] Jennifer Sylvester MD Primary Care Provider [phone] [facility], Pcp Primary Care Provider Unavailabl e Encounter Details Date Type Department Care Team Description 01/02/2019 Economic Developer Report Medical Records [address] [place] [address] Johnna Serna MD Social History Tobacco Use [...] on filedocumented in this encounter Care Teams Solid Plasterer Relationship Specialty Start Date End Date Lavell Marcos MD [address] [place] [address] PCP - General 04/06/07 02/08/21 Jennifer Sylvester MD [address] [place] [address] PCP - General Internal Medicine 02/09/21 01/22/23 [facility], Pcp [address] [place] [address] PCP - General Internal Medicine 01/23/23 documented as of this encounter
--- OUTSIDE RECORDS SUMMARY | 2025-08-25 17:07 | XMS_ITS | Encounter Summary ---
Author Organization [facility] Address [address] [place] [address] Care Team Providers Care Discotheque Dancer Name Role Phone Lavell Marcos MD Primary Care Provider [phone] Jennifer Sylvester MD Primary Care Provider [phone] [facility], Pcp Primary Care Provider [facility] e Encounter Details Date Type Department Care Team Description 04/24/2015 Perinatal Coordinator Report Medical Records [address] [place] [address] Idalia Benito MD Social History Tobacco Use [...] on filedocumented in this encounter Care Teams Discotheque Dancer Relationship Specialty Start Date End Date Lavell Marcos MD [address] [place] [address] PCP - General 04/06/07 02/08/21 Jennifer Sylvester MD [address] [place] [address] PCP - General Internal Medicine 02/09/21 01/22/23 [facility], Pcp [address] [place] [address] PCP - General Internal Medicine 01/23/23 documented as of this encounter
--- OUTSIDE RECORDS SUMMARY | 2025-08-25 17:07 | XMS_ITS | Encounter Summary ---
Author Organization [facility] Address [address] [place] [address] Care Team Providers Care Cia Agent Name Role Phone Lavell Marcos MD Primary Care Provider [phone] Jennifer Sylvester MD Primary Care Provider [phone] [facility], Pcp Primary Care Provider Unavailabl e Reason for Visit * Reason Onset Date Comments Faxed Refill 12/08/2018 Encounter Details Date Type Department Care Team Description 12/08/2018 Refill Pulmonology - [address] [place] [address] Eduardo Lino MD Faxed Refill [...] on filedocumented in this encounter Care Teams Cia Agent Relationship Specialty Start Date End Date Lavell Marcos MD [address] [place] [address] PCP - General 04/06/07 02/08/21 Jennifer Sylvester MD [address] [place] [address] PCP - General Internal Medicine 02/09/21 01/22/[address] [address] PCP - General Internal Medicine 01/23/23 documented as of this encounter
--- OUTSIDE RECORDS SUMMARY | 2025-08-25 17:07 | XMS_ITS | Encounter Summary ---
Author Organization [facility] Address [address] [place] [address] Care Team Providers Care Game Artist Name Role Phone Lavell Marcos MD Primary Care Provider [phone] Jennifer Sylvester MD Primary Care Provider [facility], Pcp Primary Care Provider Unavailabl e Encounter Details Date Type Department Care Team Description 06/26/2015 Business Doc Medical Records [address] [place] [address] 43746 Abstract, Provider Social History Tobacco Use Types [...] on filedocumented in this encounter Care Teams Game Artist Relationship Specialty Start Date End Date Lavell Marcos MD [address] [place] [address] 38604 PCP - General 04/06/07 02/08/21 Jennifer Sylvester MD [address] [place] [address] [phone] PCP - General Internal Medicine 02/09/21 01/22/23 [facility], Pcp [address] [place] [address] 54843 PCP - General Internal Medicine 01/23/23 documented as of this encounter
--- OUTSIDE RECORDS SUMMARY | 2025-08-25 17:07 | XMS_ITS | Encounter Summary ---
Author Organization [facility] Address [address] [place] [address] Care Team Providers Care Plant And Equipment Worker Name Role Phone Lavell Marcos MD Primary Care Provider Jennifer Sylvester MD Primary Care Provider [phone] [facility], Pcp Primary Care Provider Unavailabl e Encounter Details Date Type Department Care Team Description 06/30/2015 Credit Risk Management Director Report Medical Records [address] [place] [address] 86701 Eduardo Lino MD Social History Tobacco Use [...] on filedocumented in this encounter Care Teams Plant And Equipment Worker Relationship Specialty Start Date End Date Lavell Marcos MD [address] [place] [address] 29625 PCP - General 04/06/07 02/08/21 Jennifer Sylvester MD [address] [place] [address] 40114 PCP - General Internal Medicine 02/09/21 01/22/23 [facility], Pcp [address] [place] [address] 12102 PCP - General Internal Medicine 01/23/23 documented as of this encounter
--- OUTSIDE RECORDS SUMMARY | 2025-08-25 17:07 | XMS_ITS | Encounter Summary ---
Author Organization [facility] Address [address] [place] [address] Care Team Providers Care Dairy Hand Name Role Phone Lavell Marcos MD Primary Care Provider [phone] Jennifer Sylvester MD Primary Care Provider [phone] [facility] [place], Pcp Primary Care Provider [facility] e Encounter Details Date Type Department Care Team Description 06/29/2015 Net Web Developer Report Medical Records [address] [place] [address] 20875 Bib Sandoval MD Social History Tobacco Use [...] on filedocumented in this encounter Care Teams Dairy Hand Relationship Specialty Start Date End Date Lavell Marcos MD [address] [place] [address] 24508 PCP - General 04/06/07 02/08/21 Jennifer Sylvester MD [address] [place] [address] 69018 PCP - General Internal Medicine 02/09/21 01/22/23 [facility] [place], Pcp [address] [place] [address] 19183 PCP - General Internal Medicine 01/23/23 documented as of this encounter
--- OUTSIDE RECORDS SUMMARY | 2025-08-25 17:07 | XMS_ITS | Encounter Summary ---
Author Organization [facility] Address [address] [place] [address] Care Team Providers Care Geriatric Personal Care Aide Name Role Phone Lavell Marcos MD Primary Care Provider [phone] Jennifer Sylvester MD Primary Care Provider [phone] [facility], Pcp Primary Care Provider Unavailabl e Encounter Details Date Type Department Care Team Description 01/11/2015 Hospital Medical Records [address] [place] [address] Eduardo Lino MD Social History Tobacco Use [...] on filedocumented in this encounter Care Teams Geriatric Personal Care Aide Relationship Specialty Start Date End Date Lavell Marcos MD [address] [place] [address] 89154 PCP - General 04/06/07 02/08/21 Jennifer Sylvester MD [address] [place] [address] 64028 PCP - General Internal Medicine 02/09/21 01/22/23 [facility], Pcp [address] [place] [address] 40078 PCP - General Internal Medicine 01/23/23 documented as of this encounter
--- OUTSIDE RECORDS SUMMARY | 2025-08-25 17:07 | XMS_ITS | Encounter Summary ---
Author Organization [facility] Address [address] [place] [address] Care Team Providers Care Dry Goods Inspector Name Role Phone Lavell Marcos MD Primary Care Provider [phone] Jennifer Sylvester MD Primary Care Provider [phone] [facility], Pcp Primary Care Provider [facility] e Encounter Details Date Type Department Care Team Description 01/25/2021 Plywood Layup Line Back Feeder Report Medical Records [address] [place] [address] 74770 Bib Sandoval MD Social History Tobacco Use [...] on filedocumented in this encounter Care Teams Dry Goods Inspector Relationship Specialty Start Date End Date Lavell Marcos MD [address] [place] [address] 99000 PCP - General 04/06/07 02/08/21 Jennifer Sylvester MD [address] [place] [address] 57675 PCP - General Internal Medicine 02/09/21 01/22/23 [facility], Pcp [address] [place] [address] 59913 PCP - General Internal Medicine 01/23/23 documented as of this encounter
--- OUTSIDE RECORDS SUMMARY | 2025-08-25 17:07 | XMS_ITS | Encounter Summary ---
Author Organization [facility] Address [address] [place] [address] Care Team Providers Care Grinder Dresser Name Role Phone Lavell Marcos MD Primary Care Provider [phone] Jennifer Sylvester MD Primary Care Provider [phone] [facility], Pcp Primary Care Provider Unavailabl e Encounter Details Date Type Department Care Team Description 08/07/2018 Orders Only Pulmonology - [address] [place] [phone] Eduardo Lino MD Social History Tobacco [...] on filedocumented in this encounter Care Teams Grinder Dresser Relationship Specialty Start Date End Date Lavell Marcos MD [address] [place] [address] 50308 PCP - General 04/06/07 02/08/21 Jennifer Sylvester MD [address] [place] [address] [phone] PCP - General Internal Medicine 02/09/21 01/22/23 [facility], [address] [address] PCP - General Internal Medicine 01/23/23 documented as of this encounter
--- OUTSIDE RECORDS SUMMARY | 2025-08-25 17:07 | XMS_ITS | Encounter Summary ---
Author Organization [facility] Address [address] [place] [address] Care Team Providers Care Impregnating Machine Operator Name Role Phone Lavell Marcos MD Primary Care Provider Jennifer Sylvester MD Primary Care Provider [phone] [facility], Pcp Primary Care Provider [facility] e Encounter Details Date Type Department Care Team Description 11/21/2014 Trailer Steerer Report Medical Records [address] [place] [address] 67[address] Bib Sandoval MD Social History Tobacco Use [...] on filedocumented in this encounter Care Teams Impregnating Machine Operator Relationship Specialty Start Date End Date Lavell Marcos MD [address] [place] [address] 12830 PCP - General 04/06/07 02/08/21 Jennifer Sylvester MD [address] [place] [address] 86364 PCP - General Internal Medicine 02/09/21 01/22/23 [facility], Pcp [address] [place] [address] 93891 PCP - General Internal Medicine 01/23/23 documented as of this encounter
--- OUTSIDE RECORDS SUMMARY | 2025-08-25 17:07 | XMS_ITS | Encounter Summary ---
Author Organization [facility] Address [address] [place] [address] Care Team Providers Care Magnetic Prospector Name Role Phone Lavell Marcos MD Primary Care Provider [phone] Jennifer Sylvester MD Primary Care Provider [phone] [facility], Pcp Primary Care Provider [facility] e Encounter Details Date Type Department Care Team Description 05/11/2020 Truck Dispatcher Report Medical Records [address] [place] [address] Abstract, Provider Social History Tobacco Use Types [...] on filedocumented in this encounter Care Teams Magnetic Prospector Relationship Specialty Start Date End Date Lavell Marcos MD [address] [place] [address] 33707 PCP - General 04/06/07 02/08/21 Jeninfer Sylvester MD [address] [place] [address] [phone] PCP - General Internal Medicine 02/09/21 01/22/23 [facility], Pcp [address] [place] [address] 28119 PCP - General Internal Medicine 01/23/23 documented as of this encounter
--- OUTSIDE RECORDS SUMMARY | 2025-08-25 17:07 | XMS_ITS | Encounter Summary ---
Author Organization [facility] Address [address] [place] [address] Care Team Providers Care Floor Covering Installer Name Role Phone Jennifer Sylvester MD Primary Care Provider [phone] [facility], Pcp Primary Care Provider Unavailltety e Encounter Details Date Type Department Care Team Description 05/14/2021 Spa Coordinator Report Medical Records [address] [place] [address] 17[address] Bib Sandoval MD Social History Tobacco Use [...] filedocumented in this encounter Care Teams Floor Covering Installer Relationship Specialty Start Date End Date Jennifer Sylvester MD [address] [place] [address] [phone] PCP - General Internal Medicine 02/09/21 01/22/23 [facility], Pcp [address] [place] [address] 32111 PCP - General Internal Medicine 01/23/23 documented as of this encounter
--- OUTSIDE RECORDS SUMMARY | 2025-08-25 17:08 | XMS_ITS | Encounter Summary ---
Author Organization [facility] Address [address] [place] [address] Care Team Providers Care Pin Setter Name Role Phone Jennifer Sylvester MD Primary Care Provider [phone] [facility], Pcp Primary Care Provider Unavailabl e Encounter Details Date Type Department Care Team Description 06/25/2021 Low Pressure Boiler Tender Report Medical Records [address] [place] [address] 93807 Chris Lincoln MD Social History Tobacco Use [...] filedocumented in this encounter Care Teams Pin Setter Relationship Specialty Start Date End Date Jennifer Sylvester MD [address] [place] [address] [phone] PCP - General Internal Medicine 02/09/21 01/22/23 [facility], Pcp [address] [place] [address] PCP - General Internal Medicine 01/23/23 documented as of this encounter
--- OUTSIDE RECORDS SUMMARY | 2025-08-25 17:08 | XMS_ITS | Encounter Summary ---
Author Organization [facility] Address [address] [place] [address] Care Team Providers Care Signal Maintainer Name Role Phone Lavell Marcos MD Primary Care Provider [phone] Jennifer Sylvester MD Primary Care Provider [phone] [facility], Pcp Primary Care Provider [facility] e Encounter Details Date Type Department Care Team Description 06/01/2014 Pt. Non Urgent Medical Question Adult Medicine [facility] [address] [place] [address] Lavell Marcos MD [address] [place] [address] 76563 Social History Tobacco Use Types Packs/Day Years [...] on filedocumented in this encounter Care Teams Signal Maintainer Relationship Specialty Start Date End Date Lavell Marcos MD [address] [place] [address] 98210 PCP - General 04/06/07 02/08/21 Jennifer Sylvester MD [address] [place] [address] 21319 PCP - General Internal Medicine 02/09/21 01/22/23 [facility], [address] [address] PCP - General Internal Medicine 01/23/23 documented as of this encounter
--- OUTSIDE RECORDS SUMMARY | 2025-08-25 17:08 | XMS_ITS | Encounter Summary ---
Author Organization [facility] Address [address] [place] [address] Care Team Providers Care Title I Coordinator Name Role Phone Lavell Marcos MD Primary Care Provider Jennifer Sylvester MD Primary Care Provider [phone] [facility], Pcp Primary Care Provider [facility] e Encounter Details Date Type Department Care Team Description 08/12/2014 Security Expert Report Medical Records [address] [place] [address] 29442 Rich Beatty Social History Tobacco Use Types [...] on filedocumented in this encounter Care Teams Title I Coordinator Relationship Specialty Start Date End Date Lavell Marcos MD [address] [place] [address] 13888 PCP - General 04/06/07 02/08/21 Jennifer Sylvester MD [address] [place] [address] 34036 PCP - General Internal Medicine 02/09/21 01/22/23 [facility], Pcp [address] [place] [address] 65143 PCP - General Internal Medicine 01/23/23 documented as of this encounter
--- OUTSIDE RECORDS SUMMARY | 2025-08-25 17:08 | XMS_ITS | Encounter Summary ---
Author Organization [facility] Address [address] [place] [address] Care Team Providers Care Extermination Inspector Name Role Phone Lavell Marcos MD Primary Care Provider [phone] Jennifer Sylvester MD Primary Care Provider [phone] [facility], Pcp Primary Care Provider Unavailabl e Reason for Visit * Reason Comments E-prescribe Rx Request Encounter Details Date Type Department Care Team Description 05/17/2018 Refill Pulmonology - [address] [place] [phone] Eduardo Lino MD E-prescribe Rx Request Social [...] CARO/ERINN POS / Plan: PPO $[id number] [id number] / Product Type: PPO [id number] documented in this encounter Plan of Treatment Not on file documented as of this encounter Visit Diagnoses Not on filedocumented in this encounter Care Teams Extermination Inspector Relationship Specialty Start Date End Date Lavell Marcos MD [address] [place] [address] 39422 PCP - General 04/06/07 02/08/21 Jennifer Sylvester MD [address] [place] [address] 10683 PCP - General Internal Medicine 02/09/21 01/22/23 Joe Garay [address] [place] [address] 49700 PCP - General Internal Medicine 01/23/23 documented as of this encounter
--- OUTSIDE RECORDS SUMMARY | 2025-08-25 17:08 | XMS_ITS | Encounter Summary ---
Author Organization [facility] Address [address] [place] [address] Care Team Providers Care Casino Worker Name Role Phone Lavell Marcos MD Primary Care Provider Jennifer Sylvester MD Primary Care Provider [phone] [facility], Pcp Primary Care Provider [facility] e Encounter Details Date Type Department Care Team Description 11/15/2011 Hospital Medical Records [address] [place] [address] 22569 Yazan Lang Social History Tobacco Use Types [...] filedocumented in this encounter Care Teams Casino Worker Relationship Specialty Start Date End Date Lavell Marcos MD [address] [place] [address] 31872 PCP - General 04/06/07 02/08/21 Jennifer Sylvester MD [address] [place] [address] 20665 PCP - General Internal Medicine 02/09/21 01/22/23 [facility], Pcp [address] [place] [address] 66466 PCP - General Internal Medicine 01/23/23 documented as of this encounter
--- OUTSIDE RECORDS SUMMARY | 2025-08-25 17:08 | XMS_ITS | Encounter Summary ---
Author Organization [facility] Address [address] [place] [address] Care Team Providers Care Data Conversion Operator Name Role Phone Jennifer Sylvester MD Primary Care Provider [phone] [facility], Pcp Primary Care Provider Unavailletty e Encounter Details Date Type Department Care Team Description 02/26/2021 Locomotive Electrician Report Medical Records [address] [place] [address] 29715 Bib Sandoval MD Social History Tobacco Use [...] filedocumented in this encounter Care Teams Data Conversion Operator Relationship Specialty Start Date End Date Jennifer Sylvester MD [address] [place] [address] [phone] PCP - General Internal Medicine 02/09/21 01/22/23 [facility], Pcp [address] [place] [address] 14061 PCP - General Internal Medicine 01/23/23 documented as of this encounter
--- OUTSIDE RECORDS SUMMARY | 2025-08-25 17:08 | XMS_ITS | Encounter Summary ---
Author Organization [facility] Address [address] [place] [address] Care Team Providers Care Hematology Technician Name Role Phone Lavell Marcos MD Primary Care Provider [phone] Jennifer Sylvester MD Primary Care Provider [phone] [facility], Pcp Primary Care Provider Unavailabl e Encounter Details Date Type Department Care Team Description 02/07/2014 Business Intelligence Analyst Report Medical Records [address] [place] [address] 68261 Edurado Lino MD Social History Tobacco Use Types [...] on filedocumented in this encounter Care Teams Hematology Technician Relationship Specialty Start Date End Date Lavell Marcos MD [address] [place] [address] 02806 PCP - General 04/06/07 02/08/21 Jennifer Sylvester MD [address] [place] [address] 06448 PCP - General Internal Medicine 02/09/21 01/22/23 [facility], Pcp [address] [place] [address] 15354 PCP - General Internal Medicine 01/23/23 documented as of this encounter
--- OUTSIDE RECORDS SUMMARY | 2025-08-25 17:08 | XMS_ITS | Encounter Summary ---
Author Organization [facility] Address [address] [place] [address] Care Team Providers Care Detective And Intelligence Analyst Name Role Phone Lavell Marcos MD Primary Care Provider [phone] Jennifer Sylvester MD Primary Care Provider [phone] [facility], Pcp Primary Care Provider Unavailabl e Reason for Visit * Reason Onset Date Comments Diarrhea 09/21/2018 pt having diarrh ea and fecal incontinence. had cdiff. Sending cdiff studies. Had MRI no cauda equina mentioned. FYI Encounter Details Date Type Department Care Team Description 09/21/2018 Telephone Pulmonology - [address] [place] [address] Eduardo Lino MD Diarrhea (pt having diarrhea and fecal incontinence. had cdiff. Sending cdiff studies. Had MRI no cauda equina mentioned. FYI) Social History Tobacco Use Types Packs/Day Years [...] on filedocumented in this encounter Care Teams Detective And Intelligence Analyst Relationship Specialty Start Date End Date Lavell Marcos MD [address] [place] [address] [phone] PCP - General 04/06/07 02/08/21 Jennifer Sylvester MD [address] [place] [address] [phone] PCP - General Internal Medicine 02/09/21 01/22/23 [facility], Pcp [address] [place] [address] 62869 PCP - General Internal Medicine 01/23/23 documented as of this encounter
--- OUTSIDE RECORDS SUMMARY | 2025-08-25 17:08 | XMS_ITS | Encounter Summary ---
Author Organization [facility] Address [address] [place] [address] Care Team Providers Care Automatic Spreader Operator Name Role Phone Lavell Marcos MD Primary Care Provider Jennifer Sylvester MD Primary Care Provider [phone] [facility], Pcp Primary Care Provider [facility] e Encounter Details Date Type Department Care Team Description 03/23/2014 Surveyor'S Assistant Report Medical Records [address] [place] [address] 80933 Augie Braga MD Social History Tobacco Use [...] on filedocumented in this encounter Care Teams Automatic Spreader Operator Relationship Specialty Start Date End Date Lavell Marcos MD [address] [place] [address] 35872 PCP - General 04/06/07 02/08/21 Jennifer Sylvester MD [address] [place] [address] 81707 PCP - General Internal Medicine 02/09/21 01/22/23 [facility], Pcp [address] [place] [address] 42244 PCP - General Internal Medicine 01/23/23 documented as of this encounter
--- OUTSIDE RECORDS SUMMARY | 2025-08-25 17:08 | XMS_ITS | Encounter Summary ---
Author Organization [facility] Address [address] [place] [address] Care Team Providers Care Production Reproduction Manager Name Role Phone Lavell Marcos MD Primary Care Provider Jennifer Sylvester MD Primary Care Provider [phone] [facility], Pcp Primary Care Provider Unavailabl e Encounter Details Date Type Department Care Team Description 05/13/2014 Plater Supervisor Report Medical Records [address] [place] [address] 14225 Eduardo Lino MD Social History Tobacco Use [...] filedocumented in this encounter Care Teams Production Reproduction Manager Relationship Specialty Start Date End Date Lavell Marcos MD [address] [place] [address] 15897 PCP - General 04/06/07 02/08/21 Jennifer Sylvester MD [address] [place] [address] 36606 PCP - General Internal Medicine 02/09/21 01/22/23 [facility], Pcp [address] [place] [address] 88910 PCP - General Internal Medicine 01/23/23 documented as of this encounter
--- OUTSIDE RECORDS SUMMARY | 2025-08-25 17:08 | XMS_ITS | Encounter Summary ---
Author Organization [facility] Address [address] [place] [address] Care Team Providers Care Grocery Supervisor Name Role Phone Jennifer Sylvester MD Primary Care Provider [phone] [facility], Pcp Primary Care Provider Unavailabl e Encounter Details Date Type Department Care Team Description 06/12/2021 Sugar Chipper Machine Operator Report Medical Records [address] [place] [address] Eduardo Lino MD Social History Tobacco Use [...] on filedocumented in this encounter Care Teams Grocery Supervisor Relationship Specialty Start Date End Date Jennifer Sylvester MD [address] [place] [address] [phone] PCP - General Internal Medicine 02/09/21 01/22/23 [facility], Pcp [address] [place] [address] 26419 PCP - General Internal Medicine 01/23/23 documented as of this encounter
--- OUTSIDE RECORDS SUMMARY | 2025-08-25 17:08 | XMS_ITS | Encounter Summary ---
Author Organization [facility] Address [address] [place] [address] Care Team Providers Care Cd Mixer Helper Name Role Phone Lavell Marcos MD Primary Care Provider Jennifer Sylvester MD Primary Care Provider [phone] [facility], Pcp Primary Care Provider [facility] e Encounter Details Date Type Department Care Team Description 07/15/2014 Equal Opportunity Officer Report Medical Records [address] [place], [place] [phone] Rich Beatty Social History Tobacco Use Types [...] on filedocumented in this encounter Care Teams Cd Mixer Helper Relationship Specialty Start Date End Date Lavell Marcos MD [address] [place] [address] 91476 PCP - General 04/06/07 02/08/21 Jennifer Sylvester MD [address] [place] [address] 04427 PCP - General Internal Medicine 02/09/21 01/22/23 [facility], Pcp [address] [place] [address] 62719 PCP - General Internal Medicine 01/23/23 documented as of this encounter
--- OUTSIDE RECORDS SUMMARY | 2025-08-25 17:08 | XMS_ITS | Encounter Summary ---
Author Organization [facility] Address [address] [place] [address] Care Team Providers Care Floor Plan Adjuster Name Role Phone Lavell Marcos MD Primary Care Provider Jennifer Sylvester MD Primary Care Provider [phone] [facility], Pcp Primary Care Provider [facility] e Encounter Details Date Type Department Care Team Description 03/29/2014 Subscription Clerk Report Medical Records [address] [place], [place] [phone] Rich Beatty Social History Tobacco Use Types [...] filedocumented in this encounter Care Teams Floor Plan Adjuster Relationship Specialty Start Date End Date Lavell Marcos MD [address] [place] [address] 63185 PCP - General 04/06/07 02/08/21 Jennifer Sylvester MD [address] [place] [address] 63139 PCP - General Internal Medicine 02/09/21 01/22/23 [facility], Pcp [address] [place] [address] 17977 PCP - General Internal Medicine 01/23/23 documented as of this encounter
--- OUTSIDE RECORDS SUMMARY | 2025-08-25 17:08 | XMS_ITS | Encounter Summary ---
Author Organization [facility] Address [address] [place] [address] Care Team Providers Care Channel Rougher Name Role Phone Lavell Marcos MD Primary Care Provider [phone] Jennifer Sylvester MD Primary Care Provider [phone] [facility], Pcp Primary Care [facility] Encounter Details Date Type Department Care Team Description 03/05/2019 Pipefitter Helper Report Medical Records [address] [place] [address] Isai Patel, PAYossiC Social History Tobacco Use [...] filedocumented in this encounter Care Teams Channel Rougher Relationship Specialty Start Date End Date Lavell Marcos MD [address] [place] [address] 87229 PCP - General 04/06/07 02/08/21 Jennifer Sylvester MD [address] [place] [address] 56509 PCP - General Internal Medicine 02/09/21 01/22/23 [facility], Pcp [address] [place] [address] 79107 PCP - General Internal Medicine 01/23/23 documented as of this encounter
--- OUTSIDE RECORDS SUMMARY | 2025-08-25 17:08 | XMS_ITS | Encounter Summary ---
Author Organization [facility] Address [address] [place] [address] Care Team Providers Care Lunchroom Mother Name Role Phone Lavell Marcos MD Primary Care Provider [phone] Jennifer Sylvester MD Primary Care Provider [phone] [facility], Pcp Primary Care Provider Unavailabl e Encounter Details Date Type Department Care Team Description 01/22/2011 Director Of Instructional Technology Report Medical Records [address] [place] [address] Jinny Lainez NP Social History Tobacco Use [...] on filedocumented in this encounter Care Teams Lunchroom Mother Relationship Specialty Start Date End Date Lavell Marcos MD [address] [place] [address] 64042 PCP - General 04/06/07 02/08/21 Jennifer Sylvester MD [address] [place] [address] 40692 PCP - General Internal Medicine 02/09/21 01/22/23 [facility], Pcp [address] [place] [address] 53407 PCP - General Internal Medicine 01/23/23 documented as of this encounter
--- OUTSIDE RECORDS SUMMARY | 2025-08-25 17:08 | XMS_ITS | Encounter Summary ---
Author Organization [facility] Address [address] [place] [address] Care Team Providers Care Funeral Professional Name Role Phone Jennifer Sylvester MD Primary Care Provider [phone] [facility], Pcp Primary Care Provider Unavailabl e Encounter Details Date Type Department Care Team Description 06/26/2021 Resident Doctor Report Medical Records [address] [place] [address] Eduardo Lino MD Social History Tobacco Use [...] on filedocumented in this encounter Care Teams Funeral Professional Relationship Specialty Start Date End Date Jennifer Sylvester MD [address] [place] [address] [phone] PCP - General Internal Medicine 02/09/21 01/22/23 [facility], Pcp [address] [place] [address] 51532 PCP - General Internal Medicine 01/23/23 documented as of this encounter
--- OUTSIDE RECORDS SUMMARY | 2025-08-25 17:08 | XMS_ITS | Encounter Summary ---
Author Organization [facility] Address [address] [place] [address] Care Team Providers Care Sack Sewer Machine Name Role Phone Lavell Marcos MD Primary Care Provider [phone] Jennifer Sylvester MD Primary Care Provider [phone] [facility], Pcp Primary Care [facility] Encounter Details Date Type Department Care Team Description 08/05/2014 Pt. Non Urgent Medical Question Adult Medicine [facility] [address] [place] [address] Lavell Marcos MD [address] [place] [address] 036[address] Social History Tobacco Use Types Packs/Day Years [...] on filedocumented in this encounter Care Teams Sack Sewer Machine Relationship Specialty Start Date End Date Lavell Marcos MD [address] [place] [address] 00771 PCP - General 04/06/07 02/08/21 Jennifer Sylvester MD [address] [place] [address] 97236 PCP - General Internal Medicine 02/09/21 01/22/[address] [address] PCP - General Internal Medicine 01/23/23 documented as of this encounter
--- OUTSIDE RECORDS SUMMARY | 2025-08-25 17:08 | XMS_ITS | Encounter Summary ---
Author Organization [facility] Address [address] [place] [address] Care Team Providers Care Dairy Scientist Name Role Phone Lavell Marcos MD Primary Care Provider [phone] Jennifer Sylvester MD Primary Care Provider [phone] [facility], Pcp Primary Care Provider [facility] e Encounter Details Date Type Department Care Team Description 07/24/2010 Ampoule Examiner Report Medical Records [address] [place] [address] Rich Beatty Social History Tobacco Use Types [...] filedocumented in this encounter Care Teams Dairy Scientist Relationship Specialty Start Date End Date Lavell Marcos MD [address] [place] [address] 97596 PCP - General 04/06/07 02/08/21 Jennifer Sylvester MD [address] [place] [address] [phone] PCP - General Internal Medicine 02/09/21 01/22/23 [facility], Pcp [address] [place] [address] 62711 PCP - General Internal Medicine 01/23/23 documented as of this encounter
--- OUTSIDE RECORDS SUMMARY | 2025-08-25 17:08 | XMS_ITS | Encounter Summary ---
Author Organization [facility] Address [address] [place] [address] Care Team Providers Care Electrical Journeyman Name Role Phone Lavell Marcos MD Primary Care Provider Jennifer Sylvester MD Primary Care Provider [phone] [facility], Pcp Primary Care Provider Unavailabl e Encounter Details Date Type Department Care Team Description 02/28/2014 Derrick Worker Well Service Report Medical Records [address] [place] [address] 80119 Eduardo Lino MD Social History Tobacco Use [...] filedocumented in this encounter Care Teams Electrical Journeyman Relationship Specialty Start Date End Date Lavell Marcos MD [address] [place] [address] 23284 PCP - General 04/06/07 02/08/21 Jennifer Sylvester MD [address] [place] [address] 58861 PCP - General Internal Medicine 02/09/21 01/22/23 [facility], Pcp [address] [place] [address] 99678 PCP - General Internal Medicine 01/23/23 documented as of this encounter
--- OUTSIDE RECORDS SUMMARY | 2025-08-25 17:08 | XMS_ITS | Encounter Summary ---
Author Organization [facility] Address [address] [place] [address] Care Team Providers Care Obstetrics Teacher Name Role Phone Lavell Marcos MD Primary Care Provider [phone] Jennifer Sylvester MD Primary Care Provider [phone] [facility], Pcp Primary Care Provider Unavailabl e Encounter Details Date Type Department Care Team Description 03/07/2014 Shim Plug Cutter Report Medical Records [address] [place] [address] 4[address] Eduardo Lino MD Social History Tobacco Use [...] on filedocumented in this encounter Care Teams Obstetrics Teacher Relationship Specialty Start Date End Date Lavell Marcos MD [address] [place] [address] 63001 PCP - General 04/06/07 02/08/21 Jennifer Sylvester MD [address] [place] [address] 43807 PCP - General Internal Medicine 02/09/21 01/22/23 [facility], Pcp [address] [place] [address] 88365 PCP - General Internal Medicine 01/23/23 documented as of this encounter
--- OUTSIDE RECORDS SUMMARY | 2025-08-25 17:08 | XMS_ITS | Encounter Summary ---
Author Organization [facility] Address [address] [place] [address] Care Team Providers Care Motor Winder Name Role Phone Lavell Marcos MD Primary Care Provider Jennifer Sylvester MD Primary Care Provider [phone] [facility], Pcp Primary Care Provider Unavailabl e Encounter Details Date Type Department Care Team Description 09/10/2018 Safety Instructor Report Medical Records [address] [place] [address] 72078 Rafat Gregorio MD Social History Tobacco Use [...] filedocumented in this encounter Care Teams Motor Winder Relationship Specialty Start Date End Date Lavell Marcos MD [address] [place] [address] 75241 PCP - General 04/06/07 02/08/21 Jennifer Sylvester MD [address] [place] [address] 55980 PCP - General Internal Medicine 02/09/21 01/22/23 [facility], Pcp [address] [place] [address] 83393 PCP - General Internal Medicine 01/23/23 documented as of this encounter
--- OUTSIDE RECORDS SUMMARY | 2025-08-25 17:08 | XMS_ITS | Encounter Summary ---
Author Organization [facility] Address [address] [place] [address] Care Team Providers Care Mexican Food Machine Tender Name Role Phone Lavell Marcos MD Primary Care Provider Jennifer Sylvester MD Primary Care Provider [phone] [facility], Pcp Primary Care Provider Unavailabl e Encounter Details Date Type Department Care Team Description 04/22/2014 Ammunition Components Inspector Report Medical Records [address] [place] [address] 6[address] Eduardo Lino MD Social History Tobacco Use [...] on filedocumented in this encounter Care Teams Mexican Food Machine Tender Relationship Specialty Start Date End Date Lavell Marcos MD [address] [place] [address] 26926 PCP - General 04/06/07 02/08/21 Jennifer Sylvester MD [address] [place] [address] 47839 PCP - General Internal Medicine 02/09/21 01/22/23 [facility], Pcp [address] [place] [address] 91349 PCP - General Internal Medicine 01/23/23 documented as of this encounter
--- OUTSIDE RECORDS SUMMARY | 2025-08-25 17:08 | XMS_ITS | Encounter Summary ---
Author Organization [facility] Address [address] [place] [address] Care Team Providers Care Customer Marketing Manager Name Role Phone Lavell Marcos MD Primary Care Provider Jennifer Sylvester MD Primary Care Provider [phone] [facility], Pcp Primary Care Provider Unavailabl e Reason for Visit * Reason Onset Date Comments TEST RESULTS 06/24/2014 Encounter Details Date Type Department Care Team Description 06/24/2014 Telephone Adult Medicine [facility] [address] [place] [address] 98128 Lavell Marcos MD [address] [place] [address] 56425 TEST RESULTS Social History Tobacco Use Types [...] of test: :multiple Date test was performed: 46[address] Where was the test performed: rb Who [...] filedocumented in this encounter Care Teams Customer Marketing Manager Relationship Specialty Start Date End Date Lavell Marcos MD [address] [place] [address] 51620 PCP - General 04/06/07 02/08/21 Jennifer Sylvester MD [address] [place] [address] 26617 PCP - General Internal Medicine 02/09/21 01/22/23 Joe Garay [address] [place] [address] 95400 PCP - General Internal Medicine 01/23/23 documented as of this encounter
--- OUTSIDE RECORDS SUMMARY | 2025-08-25 17:08 | XMS_ITS | Encounter Summary ---
Author Organization [facility] Address [address] [place] [address] Care Team Providers Care Screw Machine Hand Name Role Phone Lavell Marcos MD Primary Care Provider Jennifer Sylvester MD Primary Care Provider [phone] [facility], Pcp Primary Care Provider Unavailabl e Reason for Visit * Reason Onset Date Comments Diarrhea 04/26/2011 Encounter Details Date Type Department Care Team Description 04/26/2011 Telephone Adult Medicine [facility] [address] [place] [address] 7[address] Lavell Marcos MD [address] [place] [address] 57185 Diarrhea Social History Tobacco Use Types Packs/Day [...] Marcos MD Payor: MELISSA Plan: POS $15 [employer] [id number] Product Type: POS [id number] documented in this encounter Plan of Treatment Not on file documented as of this encounter Visit Diagnoses Not on filedocumented in this encounter Care Teams Screw Machine Hand Relationship Specialty Start Date End Date Lavell Marcos MD [address] [place] [address] 38042 PCP - General 04/06/07 02/08/21 Jennifer Sylvester MD [address] [place] [address] 41468 PCP - General Internal Medicine 02/09/21 01/22/23 [facility] [address] [address] PCP - General Internal Medicine 01/23/23 documented as of this encounter
--- OUTSIDE RECORDS SUMMARY | 2025-08-25 17:08 | XMS_ITS | Encounter Summary ---
Author Organization [facility] Address [address] [place] [address] Care Team Providers Care Ton Container Filler Name Role Phone Lavell Marcos MD Primary Care Provider Jennifer Sylvester MD Primary Care Provider [phone] [facility], Pcp Primary Care Provider Unavailabl e Encounter Details Date Type Department Care Team Description 06/30/2014 Pot Holder Binder Report Medical Records [address] [place] [address] 8[address]14 Maggy Betancur Social History Tobacco Use Types [...] on filedocumented in this encounter Care Teams Ton Container Filler Relationship Specialty Start Date End Date Lavell Marcos MD [address] [place] [address] 15075 PCP - General 04/06/07 02/08/21 Jennifer Sylvester MD [address] [place] [address] 96758 PCP - General Internal Medicine 02/09/21 01/22/23 [facility], Pcp [address] [place] [address] 40996 PCP - General Internal Medicine 01/23/23 documented as of this encounter
--- OUTSIDE RECORDS SUMMARY | 2025-08-25 17:08 | XMS_ITS | Encounter Summary ---
Author Organization [facility] Address [address] [place] [address] Care Team Providers Care Binman Name Role Phone Lavell Marcos MD Primary Care Provider [phone] Jennifer Sylvester MD Primary Care Provider [phone] [facility], Pcp Primary Care Provider [facility] Encounter Details Date Type Department Care Team Description 11/02/2018 Driller Hand Report Medical Records [address] [place] [address] 84[address] Abstract, Provider Social History Tobacco Use Types [...] on filedocumented in this encounter Care Teams Binman Relationship Specialty Start Date End Date Lavell Marcos MD [address] [place] [address] 84672 PCP - General 04/06/07 02/08/21 Jennifer Sylvester MD [address] [place] [address] [phone] PCP - General Internal Medicine 02/09/21 01/22/23 [facility], Pcp [address] [place] [address] 70533 PCP - General Internal Medicine 01/23/23 documented as of this encounter
--- OUTSIDE RECORDS SUMMARY | 2025-08-25 17:08 | XMS_ITS | Encounter Summary ---
Author Organization [facility] Address [address] [place] [address] Care Team Providers Care Soil Technician Name Role Phone Lavell Marcos MD Primary Care Provider [phone] Jennifer Sylvester MD Primary Care Provider [phone] [facility], Pcp Primary Care Provider Unavailabl e Encounter Details Date Type Department Care Team Description 01/23/2011 Commercial Correspondent Report Medical Records [address] [place] [address] 13738 Rik Bauer, PAYossiC Social History Tobacco Use [...] on filedocumented in this encounter Care Teams Soil Technician Relationship Specialty Start Date End Date Lavell Marcos MD [address] [place] [address] 58269 PCP - General 04/06/07 02/08/21 Jennifer Sylvester MD [address] [place] [address] 90863 PCP - General Internal Medicine 02/09/21 01/22/23 [facility], Pcp [address] [place] [address] 23441 PCP - General Internal Medicine 01/23/23 documented as of this encounter
--- OUTSIDE RECORDS SUMMARY | 2025-08-25 17:08 | XMS_ITS | Encounter Summary ---
Author Organization [facility] Address [address] [place] [address] Care Team Providers Care Electron Gun Inspector Name Role Phone Lavell Marcos MD Primary Care Provider [phone] Jennifer Sylvester MD Primary Care Provider [phone] [facility], Pcp Primary Care Provider [facility] Encounter Details Date Type Department Care Team Description 04/08/2014 Trust Advisor Report Medical Records [address] [place] [address] 35965 Rich Beatty Social History Tobacco Use Types [...] on filedocumented in this encounter Care Teams Electron Gun Inspector Relationship Specialty Start Date End Date Lavell Marcos MD [address] [place] [address] 01105 PCP - General 04/06/07 02/08/21 Jennifer Sylvester MD [address] [place] [address] 56017 PCP - General Internal Medicine 02/09/21 01/22/23 [facility], Pcp [address] [place] [address] 33462 PCP - General Internal Medicine 01/23/23 documented as of this encounter
--- OUTSIDE RECORDS SUMMARY | 2025-08-25 17:08 | XMS_ITS | Encounter Summary ---
Author Organization [facility] Address [address] [place] [address] Care Team Providers Care Bus Greaser Name Role Phone Lavell Marcos MD Primary Care Provider Jennifer Sylvester MD Primary Care Provider [phone] [facility], Pcp Primary Care Provider Unavailabl e Reason for Visit * Reason Onset Date Comments other 01/09/2018 Encounter Details Date Type Department Care Team Description 01/09/2018 Telephone Gastroenterology - [address] [address] Roger Erazo MD other Social History Tobacco Use Types [...] encounter Miscellaneous Notes * Telephone Encounter - Felicia Pierre - 01/09/2018 3:51 PM EST Patient has been scheduled on 01/19/18 at 4:00. * Telephone Encounter - Roger Erazo MD - 01/09/2018 12:30 PM EST Sure, 01/19 is ok. * Telephone Encounter - Martine Cornelius RN, BSN - 01/09/2018 12:12 PM EST Patient was seen yesterday 01/08 by Jose Mauro PA-C. Patient was nstructed by him to take her Zantac as ordered. She was not taking it regularly nor twice daily. She also had appointment today 01/[address] Eduardo Lino with serial CT scans of chest ordered per Jose's suggestion. Dr. Erazo has a 3:45 on January 19 available (after his procedures / overbook). I will forward this to himand on Friday, if he would like to overbook and move her to the , he could do so at that time. Otherwise, continue to keep her on the cancellation list. Thank you. * Telephone Encounter - Daisy Rahman - 01/09/2018 9:05 AM EST Please review chart, patient wants to know if she could be seen sooner. She is booked for 03/03/18, she doesn't want to wait that long. Also on cancellation list. documented in this encounter Plan of Treatment Not on file documented as of this encounter Visit Diagnoses Not on filedocumented in this encounter Care Teams Bus Greaser Relationship Specialty Start Date End Date Lavell Marcos MD [address] [place] [address] 64384 PCP - General 04/06/07 02/08/21 Jennifer Sylvester MD [address] [place] [address] 62680 PCP - General Internal Medicine 02/09/21 01/22/23 Jarrod, Joe [address] [place] [address] 50785 PCP - General Internal Medicine 01/23/23 documented as of this encounter
--- OUTSIDE RECORDS SUMMARY | 2025-08-25 17:08 | XMS_ITS | Encounter Summary ---
Author Organization [facility] Address [address] [place] [address] Care Team Providers Care Site Foreman Name Role Phone Lavell Marcos MD Primary Care Provider [phone] Jennifer Sylvester MD Primary Care Provider [phone] Count Includes [facility], Pcp Primary Care Provider Unavailabl e Reason for Visit * Reason Onset Date Comments Faxed Order 07/01/2018 Encounter Details Date Type Department Care Team Description 07/01/2018 Telephone Adult Medicine [address] [address] Lavell Marcos MD [address] [place] [address] 48391 Faxed Order Social History Tobacco Use Types [...] on filedocumented in this encounter Care Teams Site Foreman Relationship Specialty Start Date End Date Lavell Marcos MD [address] [place] [address] 87755 PCP - General 04/06/07 02/08/21 Jennifer Sylvester MD [address] [place] [address] 94113 PCP - General Internal Medicine 02/09/21 01/22/23 Count Includes [facility], [address] [address] PCP - General Internal Medicine 01/23/23 documented as of this encounter
--- OUTSIDE RECORDS SUMMARY | 2025-08-25 17:08 | XMS_ITS | Encounter Summary ---
Author Organization [facility] Address [address] [place] [address] Care Team Providers Care Concrete Pipe Machine Operator Name Role Phone Lavell Marcos MD Primary Care Provider Jennifer Sylvester MD Primary Care Provider [phone] [facility], Pcp Primary Care Provider Unavailabl e Encounter Details Date Type Department Care Team Description 11/09/2010 Staff Radiologist Report Medical Records [address] [place] [address] Rik Bauer, PAYossiC Social History Tobacco Use [...] on filedocumented in this encounter Care Teams Concrete Pipe Machine Operator Relationship Specialty Start Date End Date Lavell Marcos MD [address] [place] [address] 91828 PCP - General 04/06/07 02/08/21 Jennifer Sylvester MD [address] [place] [address] 45858 PCP - General Internal Medicine 02/09/21 01/22/23 [facility], Pcp [address] [place] [address] 57998 PCP - General Internal Medicine 01/23/23 documented as of this encounter
--- OUTSIDE RECORDS SUMMARY | 2025-08-25 17:08 | XMS_ITS | Encounter Summary ---
Author Organization [facility] Address [address] [place] [address] Care Team Providers Care Solution Design Engineer Name Role Phone Lavell Marcos MD Primary Care Provider [phone] Jennifer Sylvester MD Primary Care Provider [phone] [facility], Pcp Primary Care Provider [facility] e Encounter Details Date Type Department Care Team Description 04/28/2014 Electrolysis Needle Operator Report Medical Records [address] [place], [place] [id number] Rich Beatty Social History Tobacco Use Types [...] on filedocumented in this encounter Care Teams Solution Design Engineer Relationship Specialty Start Date End Date Lavell Marcos MD [address] [place] [address] 53248 PCP - General 04/06/07 02/08/21 Jennifer Sylvester MD [address] [place] [address] 49571 PCP - General Internal Medicine 02/09/21 01/22/23 [facility], Pcp [address] [place] [address] 70115 PCP - General Internal Medicine 01/23/23 documented as of this encounter
--- OUTSIDE RECORDS SUMMARY | 2025-08-25 17:09 | XMS_ITS | Encounter Summary ---
Author Organization [facility] Address [address] [place] [address] Care Team Providers Care Internal Controls Consultant Name Role Phone Lavell Marcos MD Primary Care Provider [phone] Jennifer Sylvester MD Primary Care Provider [phone] [facility], Pcp Primary Care Provider Unavailabl e Reason for Visit * Reason Comments E-prescribe Rx Request Encounter Details Date Type Department Care Team Description 04/07/2017 Refill Adult Medicine [address] [address] Lavell Macros MD [address] [place] [address] 33271 E-prescribe Rx Request Social History Tobacco Use [...] Payor: CARO/PPO POS / Plan: PPO $0 [employer] [id number] / Product Type: PPO [id number] documented in this encounter Plan of Treatment Not on file documented as of this encounter Visit Diagnoses Not on filedocumented in this encounter Care Teams Internal Controls Consultant Relationship Specialty Start Date End Date Lavell Marcos MD [address] [place] [address] 03113 PCP - General 04/06/07 02/08/21 Jennifer Sylvester MD [address] [place] [address] [phone] PCP - General Internal Medicine 02/09/21 01/22/23 Joe Garay [address] [place] [address] 56941 PCP - General Internal Medicine 01/23/23 documented as of this encounter
--- OUTSIDE RECORDS SUMMARY | 2025-08-25 17:09 | XMS_ITS | Encounter Summary ---
Author Organization Formerly [facility] Address [address] [place] [address] Care Team Providers Care Deputy Juvenile Officer Name Role Phone Lavell Marcos MD Primary Care Provider [phone] Jennifer Sylvester MD Primary Care Provider [phone] [facility], Pcp Primary Care Provider Unavailabl e Encounter Details Date Type Department Care Team Description 2019 Entry Processor Report Medical Records [address] [place] [address] 76077 Reji White MD [address] [place] [address] 42334 Social History Tobacco Use Types Packs/Day Years [...] on filedocumented in this encounter Care Teams Deputy Juvenile Officer Relationship Specialty Start Date End Date Lavell Marcos MD [address] [place] [address] 97278 PCP - General 04/06/07 02/08/21 Jennifer Sylvester MD [address] [place] [address] 28657 PCP - General Internal Medicine 02/09/21 01/22/23 [facility], Pcp [address] [place] [address] 94833 PCP - General Internal Medicine 01/23/23 documented as of this encounter
--- OUTSIDE RECORDS SUMMARY | 2025-08-25 17:09 | XMS_ITS | Encounter Summary ---
Author Organization [facility] Address [address] [place] [address] Care Team Providers Care Appellate Conferee Name Role Phone Lavell Marcos MD Primary Care Provider [phone] Jennifer Sylvester MD Primary Care Provider [phone] [facility], Pcp Primary Care Provider Unavailabl e Encounter Details Date Type Department Care Team Description 02/15/2019 Hospital Medical Records [address] [place] [address] 02382 Raj Hardwick MD Social History Tobacco Use [...] on filedocumented in this encounter Care Teams Appellate Conferee Relationship Specialty Start Date End Date Lavell Marcos MD [address] [place] [address] 33731 PCP - General 04/06/07 02/08/21 Jennifer Sylvester MD [address] [place] [address] 97916 PCP - General Internal Medicine 02/09/21 01/22/23 [facility], Pcp [address] [place] [address] 85793 PCP - General Internal Medicine 01/23/23 documented as of this encounter
--- OUTSIDE RECORDS SUMMARY | 2025-08-25 17:09 | XMS_ITS | Encounter Summary ---
Author Organization [facility] Address [address] [place] [address] Care Team Providers Care Client Account Representative Name Role Phone Lavell Marcos MD Primary Care Provider [phone] Jennifer Sylvester MD Primary Care Provider [phone] [facility], Pcp Primary Care Provider Unavailabl e Encounter Details Date Type Department Care Team Description 08/06/2017 Business Doc Medical Records [address] [place] [address] 37087 Abstract, Provider Social History Tobacco Use Types [...] filedocumented in this encounter Care Teams Client Account Representative Relationship Specialty Start Date End Date Lavell Marcos MD [address] [place] [address] 19925 PCP - General 04/06/07 02/08/21 Jennifer Sylvester MD [address] [place] [address] [phone] PCP - General Internal Medicine 02/09/21 01/22/23 [facility], Pcp [address] [place] [address] 19398 PCP - General Internal Medicine 01/23/23 documented as of this encounter
--- OUTSIDE RECORDS SUMMARY | 2025-08-25 17:09 | XMS_ITS | Encounter Summary ---
Author Organization [facility] Address [address] [place] [address] Care Team Providers Care Charge Poster Name Role Phone Lavell Marcos MD Primary Care Provider [phone] Jennifer Sylvester MD Primary Care Provider [phone] [facility], Pcp Primary Care Provider Unavailabl e Encounter Details Date Type Department Care Team Description 02/11/2017 Aquarium Tank Attendant Report Medical Records [address] [place] [address] 33352 Eduardo Lino MD Social History Tobacco Use [...] on filedocumented in this encounter Care Teams Charge Poster Relationship Specialty Start Date End Date Lavell Marcos MD [address] [place] [address] 98028 PCP - General 04/06/07 02/08/21 Jennifer Sylvester MD [address] [place] [address] 38013 PCP - General Internal Medicine 02/09/21 01/22/23 [facility], Pcp [address] [place] [address] 49074 PCP - General Internal Medicine 01/23/23 documented as of this encounter
--- OUTSIDE RECORDS SUMMARY | 2025-08-25 17:09 | XMS_ITS | Encounter Summary ---
Author Organization [facility] Address [address] [place] [address] Care Team Providers Care Turf Grower Name Role Phone Lavell Marcos MD Primary Care Provider Jennifer Sylvester MD Primary Care Provider [phone] [facility], Pcp Primary Care Provider Unavailabl e Encounter Details Date Type Department Care Team Description 01/14/2020 Compatibility Test Engineer Report Medical Records [address] [place] [address] 35129 Eduardo Lino MD Social History Tobacco Use [...] on filedocumented in this encounter Care Teams Turf Grower Relationship Specialty Start Date End Date Lavell Marcos MD [address] [place] [address] 70155 PCP - General 04/06/07 02/08/21 Jennifer Sylvester MD [address] [place] [address] 41631 PCP - General Internal Medicine 02/09/21 01/22/23 [facility], Pcp [address] [place] [address] 25515 PCP - General Internal Medicine 01/23/23 documented as of this encounter
--- OUTSIDE RECORDS SUMMARY | 2025-08-25 17:09 | XMS_ITS | Encounter Summary ---
Author Organization [facility] Address [address] [place] [address] Care Team Providers Care Power Shovel Operator Helper Name Role Phone Lavell Marcos MD Primary Care Provider Jennifer Sylvester MD Primary Care Provider [phone] [facility], Pcp Primary Care Provider Unavailabl e Reason for Visit * Reason Onset Date Comments Prior Authorization 08/24/2019 ct chest 712 50 Encounter Details Date Type Department Care Team Description 08/24/2019 Telephone Pulmonology - [address] [place] [address] Eduardo Lino MD Prior Authorization (ct chest 30034) Social History Tobacco Use Types Packs/Day Years [...] Arreaga placed an order for CT chest 37276 to be done in Sep 2019. Is this patient still beingseen by your office? If so, please place new external order for [facility]. ?? Thank you, ?? Meena x [phone] Prior Auth Dept. documented in this encounter Plan of Treatment Not on file documented as of this encounter Visit Diagnoses Not on filedocumented in this encounter Care Teams Power Shovel Operator Helper Relationship Specialty Start Date End Date Lavell Marcos MD [address] [place] [address] 66223 PCP - General 04/06/07 02/08/21 Jennifer Sylvester MD [address] [place] [address] 16790 PCP - General Internal Medicine 02/09/21 01/22/23 [facility], [address] [address] PCP - General Internal Medicine 01/23/23 documented as of this encounter
--- OUTSIDE RECORDS SUMMARY | 2025-08-25 17:09 | XMS_ITS | Encounter Summary ---
Author Organization [facility] Address [address] [place] [address] Care Team Providers Care Lettuce Cutter Name Role Phone Lavell Marcos MD Primary Care Provider [phone] Jennifer Sylvester MD Primary Care Provider [phone] [facility], Pcp Primary Care Provider [facility] e Encounter Details Date Type Department Care Team Description 08/02/2013 Horse Groomer Report Medical Records [address] [place] [address] 83306 Bib Sandoval MD Social History Tobacco Use [...] on filedocumented in this encounter Care Teams Lettuce Cutter Relationship Specialty Start Date End Date Lavell Marcos MD [address] [place] [address] 00071 PCP - General 04/06/07 02/08/21 Jennifer Sylvester MD [address] [place] [address] 16433 PCP - General Internal Medicine 02/09/21 01/22/23 [facility], Pcp [address] [place] [address] 94845 PCP - General Internal Medicine 01/23/23 documented as of this encounter
--- OUTSIDE RECORDS SUMMARY | 2025-08-25 17:09 | XMS_ITS | Encounter Summary ---
Author Organization [facility] Address [address] [place] [address] Care Team Providers Care Coil Former Name Role Phone Lavell Marcos MD Primary Care Provider Jennifer Sylvester MD Primary Care Provider [phone] [facility], Pcp Primary [facility] Encounter Details Date Type Department Care Team Description 01/03/2017 Auger Press Operator Report Medical Records [address] [place] [address] 22435 Erika Mueller NP Social History Tobacco Use [...] on filedocumented in this encounter Care Teams Coil Former Relationship Specialty Start Date End Date Lavell Marcos MD [address] [place] [address] 79100 PCP - General 04/06/07 02/08/21 Jennifer Sylvester MD [address] [place] [address] 06154 PCP - General Internal Medicine 02/09/21 01/22/23 [facility], Pcp [address] [place] [address] 81018 PCP - General Internal Medicine 01/23/23 documented as of this encounter
--- OUTSIDE RECORDS SUMMARY | 2025-08-25 17:09 | XMS_ITS | Encounter Summary ---
Author Organization [facility] Address [address] [place] [address] Care Team Providers Care Maid Housekeeper Name Role Phone Lavell Marcos MD Primary Care Provider [phone] Jennifer Sylvester MD Primary Care Provider [phone] [facility], Pcp Primary Care Provider Unavailabl e Reason for Visit * Reason Onset Date Comments other 08/30/2019 Encounter Details Date Type Department Care Team Description 08/30/2019 Telephone Physiatry - [place] [address] [place] [address] Lavell Marcos MD [address] [place] [address] other Social History Tobacco Use Types Packs/Day [...] on filedocumented in this encounter Care Teams Maid Housekeeper Relationship Specialty Start Date End Date Lavell Marcos MD [address] [place] [address] 11117 PCP - General 04/06/07 02/08/21 Jennifer Sylvester MD [address] [place] [address] 98224 PCP - General Internal Medicine 02/09/21 01/22/[address] [address] PCP - General Internal Medicine 01/23/23 documented as of this encounter
--- OUTSIDE RECORDS SUMMARY | 2025-08-25 17:09 | XMS_ITS | Encounter Summary ---
Author Organization [facility] Address [address] [place] [address] Care Team Providers Care Foiling Machine Operator Name Role Phone Lavell Marcos MD Primary Care Provider [phone] Jennifer Sylvester MD Primary Care Provider [phone] [facility], Pcp Primary Care Provider Unavailabl e Encounter Details Date Type Department Care Team Description 12/27/2016 Orders Only Medical Records [address] [place] [address] 40584 Lavell Marcos MD [address] [place] [address] 16836 Social History Tobacco Use Types Packs/Day Years [...] on filedocumented in this encounter Care Teams Foiling Machine Operator Relationship Specialty Start Date End Date Lavell Marcos MD [address] [place] [address] 26035 PCP - General 04/06/07 02/08/21 Jennifer Sylvester MD [address] [place] [address] 24643 PCP - General Internal Medicine 02/09/21 01/22/23 [facility], Pcp [address] [place] [address] 38905 PCP - General Internal Medicine 01/23/23 documented as of this encounter
--- OUTSIDE RECORDS SUMMARY | 2025-08-25 17:09 | XMS_ITS | Encounter Summary ---
Author Organization [facility] Address [address] [place] [address] Care Team Providers Care Land Checker Name Role Phone Lavell Marcos MD Primary Care Provider [phone] Jennifer Sylvester MD Primary Care Provider [phone] Replaced By [facility], Pcp Primary Care Provider Unavailabl e Encounter Details Date Type Department Care Team Description 09/29/2019 Vibrator Operator Report Medical Records [address] [place] [address] 79083 Rafat Gregorio MD Social History Tobacco Use [...] on filedocumented in this encounter Care Teams Land Checker Relationship Specialty Start Date End Date Lavell Marcos MD [address] [place] [address] 90660 PCP - General 04/06/07 02/08/21 Jennifer Sylvester MD [address] [place] [address] 37944 PCP - General Internal Medicine 02/09/21 01/22/23 Replaced By [facility], Pcp [address] [place] [address] 02737 PCP - General Internal Medicine 01/23/23 documented as of this encounter
--- OUTSIDE RECORDS SUMMARY | 2025-08-25 17:09 | XMS_ITS | Encounter Summary ---
Author Organization [facility] Address [address] [place] [address] Care Team Providers Care Cnc Machine Setter Name Role Phone Lavell Marcos MD Primary Care Provider [phone] Jennifer Sylvester MD Primary Care Provider [phone] [facility], Pcp Primary Care Provider Unavailabl e Encounter Details Date Type Department Care Team Description 11/16/2019 Whiskey Regauger Report Medical Records [address] [place] [address] 30810 Eduardo Lino MD Social History Tobacco Use [...] filedocumented in this encounter Care Teams Cnc Machine Setter Relationship Specialty Start Date End Date Lavell Marcos MD [address] [place] [address] 11871 PCP - General 04/06/07 02/08/21 Jennifer Sylvester MD [address] [place] [address] 59981 PCP - General Internal Medicine 02/09/21 01/22/23 [facility], Pcp [address] [place] [address] 45091 PCP - General Internal Medicine 01/23/23 documented as of this encounter
--- OUTSIDE RECORDS SUMMARY | 2025-08-25 17:09 | XMS_ITS | Encounter Summary ---
Author Organization [facility] Address [address] [place] [address] Care Team Providers Care Swabber Name Role Phone Lavell Marcos MD Primary Care Provider Jennifer Sylvester MD Primary Care Provider [phone] [facility], Pcp Primary Care Provider Unavailabl e Encounter Details Date Type Department Care Team Description 09/09/2019 Application Manager Report Medical Records [address] [place] [address] 46260 Jose Cornejo MD Social History Tobacco Use [...] on filedocumented in this encounter Care Teams Swabber Relationship Specialty Start Date End Date Lavell Marcos MD [address] [place] [address] 84010 PCP - General 04/06/07 02/08/21 Jennifer Sylvester MD [address] [place] [address] 93361 PCP - General Internal Medicine 02/09/21 01/22/23 [facility], Pcp [address] [place] [address] 67840 PCP - General Internal Medicine 01/23/23 documented as of this encounter
--- OUTSIDE RECORDS SUMMARY | 2025-08-25 17:09 | XMS_ITS | Encounter Summary ---
Author Organization [facility] Address [address] [place] [address] Care Team Providers Care Replenishment Merchandising Associate Name Role Phone Lavell Marcos MD Primary Care Provider Jennifer Sylvester MD Primary Care Provider [phone] [facility], Pcp Primary Care Provider Unavailabl e Encounter Details Date Type Department Care Team Description 08/11/2017 Home Health Travel Pt Report Medical Records [address] [place] [address] 21512 Eduardo Lino MD Social History Tobacco Use [...] on filedocumented in this encounter Care Teams Replenishment Merchandising Associate Relationship Specialty Start Date End Date Lavell Marcos MD [address] [place] [address] 79149 PCP - General 04/06/07 02/08/21 Jennifer Sylvester MD [address] [place] [address] 86704 PCP - General Internal Medicine 02/09/21 01/22/23 [facility], Pcp [address] [place] [address] 23528 PCP - General Internal Medicine 01/23/23 documented as of this encounter
--- OUTSIDE RECORDS SUMMARY | 2025-08-25 17:09 | XMS_ITS | Encounter Summary ---
Author Organization [facility] Address [address] [place] [address] Care Team Providers Care Curriculum Advisory Teacher Name Role Phone Lavell Marcos MD Primary Care Provider [phone] Jennifer Sylvester MD Primary Care Provider [phone] [facility], Pcp Primary Care Provider Unavailabl e Encounter Details Date Type Department Care Team Description 10/14/2017 Transfer Records Medical Records [address] [place] [address] 62615 Abstract, Provider Social History Tobacco Use Types [...] filedocumented in this encounter Care Teams Curriculum Advisory Teacher Relationship Specialty Start Date End Date Lavell Marcos MD [address] [place] [address] 89129 PCP - General 04/06/07 02/08/21 Jennifer Sylvester MD [address] [place] [address] [phone] PCP - General Internal Medicine 02/09/21 01/22/23 [facility], Pcp [address] [place] [address] 55728 PCP - General Internal Medicine 01/23/23 documented as of this encounter
--- OUTSIDE RECORDS SUMMARY | 2025-08-25 17:09 | XMS_ITS | Encounter Summary ---
Author Organization [facility] Address [address] [place] [address] Care Team Providers Care Manager Social Work Name Role Phone Lavell Marcos MD Primary Care Provider [phone] Jennifer Sylvester MD Primary Care Provider [phone] [facility], Pcp Primary Care Provider Unavailabl e Encounter Details Date Type Department Care Team Description 04/28/2017 Orders Only Adult Medicine [address] [address] Sam Santiago PA-C [address] [place] [address] 74164 Other dysphagia Social History Tobacco Use Types [...] dysphagia documented in this encounter Care Teams Manager Social Work Relationship Specialty Start Date End Date Lavell Marcos MD [address] [place] [address] 21225 PCP - General 04/06/07 02/08/21 Jennifer Sylvester MD [address] [place] [address] 01020 PCP - General Internal Medicine 02/09/21 01/22/23 [facility], Pcp [address] [place] [address] 03408 PCP - General Internal Medicine 01/23/23 documented as of this encounter
--- OUTSIDE RECORDS SUMMARY | 2025-08-25 17:09 | XMS_ITS | Encounter Summary ---
Author Organization [facility] Address [address] [place] [address] Care Team Providers Care Tax Examining Technician Name Role Phone Lavell Marcos MD Primary Care Provider [phone] Jennifer Sylvester MD Primary Care Provider [phone] [facility], Pcp Primary Care Provider Unavailabl e Encounter Details Date Type Department Care Team Description 12/23/2013 Patient Case Manager Report Medical Records [address] [place], [place] [id number] Black, Charity Social History Tobacco Use Types [...] on filedocumented in this encounter Care Teams Tax Examining Technician Relationship Specialty Start Date End Date Lavell Marcos MD [address] [place] [address] 67326 PCP - General 04/06/07 02/08/21 Jennifer Sylvester MD [address] [place] [address] 02309 PCP - General Internal Medicine 02/09/21 01/22/23 [facility], Pcp [address] [place] [address] 36964 PCP - General Internal Medicine 01/23/23 documented as of this encounter
--- OUTSIDE RECORDS SUMMARY | 2025-08-25 17:09 | XMS_ITS | Encounter Summary ---
Author Organization [facility] Address [address] [place] [address] Care Team Providers Care Tester Vibrator Equipment Name Role Phone Lavell Marcos MD Primary Care Provider [phone] Jennifer Sylvester MD Primary Care Provider [facility], [facility]cp Primary Care Provider Unavailabl e Encounter Details Date Type Department Care Team Description 05/26/2019 Release of Information Medical Records [address] [place], [place] [id number] Abstract, Provider Social History Tobacco Use Types [...] on filedocumented in this encounter Care Teams Tester Vibrator Equipment Relationship Specialty Start Date End Date Lavell Marcos MD [address] [place] [address] 95252 PCP - General 04/06/07 02/08/21 Jennifer Sylvester MD [address] [place] [address] [phone] PCP - General Internal Medicine 02/09/21 01/22/23 [facility], Pcp [address] [place] [address] 81779 PCP - General Internal Medicine 01/23/23 documented as of this encounter
--- OUTSIDE RECORDS SUMMARY | 2025-08-25 17:09 | XMS_ITS | Encounter Summary ---
Author Organization [facility] Address [address] [place] [address] Care Team Providers Care Fusion Juncture Grinder Name Role Phone Lavell Marcos MD Primary Care Provider [phone] Jennifer Sylvester MD Primary Care Provider [phone] [facility], Pcp Primary Care Provider Unavailabl e Encounter Details Date Type Department Care Team Description 03/26/2019 Superintendent Oil Well Services Report Medical Records [address] [place] [address] Penelope Geronimo MD [address] [place] [address] 24404 Social History Tobacco Use Types Packs/Day Years [...] on filedocumented in this encounter Care Teams Fusion Juncture Grinder Relationship Specialty Start Date End Date Lavell Marcos MD [address] [place] [address] 27346 PCP - General 04/06/07 02/08/21 Jennifer Sylvester MD [address] [place] [address] 78318 PCP - General Internal Medicine 02/09/21 01/22/[address] [address] PCP - General Internal Medicine 01/23/23 documented as of this encounter
--- OUTSIDE RECORDS SUMMARY | 2025-08-25 17:09 | XMS_ITS | Encounter Summary ---
Author Organization [facility] Address [address] [place] [address] Care Team Providers Care Solar Photovoltaic Crew Lead Name Role Phone Lavell Marcos MD Primary Care Provider [phone] Jennifer Sylvester MD Primary Care Provider [phone] [facility], Pcp Primary Care Provider Unavailabl e Encounter Details Date Type Department Care Team Description 01/10/2017 Drawer Upfitter Report Medical Records [address] [place] [address] 18350 Reji White MD [address] [place] [address]1454 Social History Tobacco Use Types Packs/Day Years [...] on filedocumented in this encounter Care Teams Solar Photovoltaic Crew Lead Relationship Specialty Start Date End Date Lavell Marcos MD [address] [place] [address] 92535 PCP - General 04/06/07 02/08/21 Jennifer Sylvester MD [address] [place] [address] 56653 PCP - General Internal Medicine 02/09/21 01/22/23 [facility], Pcp [address] [place] [address] 36052 PCP - General Internal Medicine 01/23/23 documented as of this encounter
--- OUTSIDE RECORDS SUMMARY | 2025-08-25 17:09 | XMS_ITS | Encounter Summary ---
Author Organization [facility] Address [address] [place] [address] Care Team Providers Care Gear Technician Name Role Phone Lavell Marcos MD Primary Care Provider [phone] Jennifer Sylvester MD Primary Care Provider [phone] [facility], Pcp Primary Care Provider Unavailabl e Encounter Details Date Type Department Care Team Description 02/04/2019 Tourist Adviser Report Medical Records [address] [place] [address] 22673 Raj Hardwick MD Social History Tobacco Use [...] on filedocumented in this encounter Care Teams Gear Technician Relationship Specialty Start Date End Date Lavell Marcos MD [address] [place] [address] 03259 PCP - General 04/06/07 02/08/21 Jennifer Sylvester MD [address] [place] [address] 27954 PCP - General Internal Medicine 02/09/21 01/22/23 [facility], Pcp [address] [place] [address] 94055 PCP - General Internal Medicine 01/23/23 documented as of this encounter
--- OUTSIDE RECORDS SUMMARY | 2025-08-25 17:09 | XMS_ITS | Encounter Summary ---
Author Organization [facility] Address [address] [place] [address] Care Team Providers Care Senior Policy Analyst Name Role Phone Lavell Marcos MD Primary Care Provider [phone] Jennifer Sylvester MD Primary Care Provider [phone] [facility], Pcp Primary Care Provider Unavailabl e Reason for Visit * Reason Onset Date Comments Medication 02/12/2017 acid reflux Encounter Details Date Type Department Care Team Description 02/12/2017 Telephone Gastroenterology - [address] [address] Roger Erazo MD Medication (acid reflux) Social [...] 20 mg twice a day to the [facility] pharmacy listed in her chart. She [...] Primary documented in this encounter Care Teams Senior Policy Analyst Relationship Specialty Start Date End Date Lavell Marcos MD [address] [place] [phone] PCP - General 04/06/07 02/08/21 Jennifer Sylvester MD [address] [place] [address] 41550 PCP - General Internal Medicine 02/09/21 01/22/23 [facility], [address] [address] PCP - General Internal Medicine 01/23/23 documented as of this encounter
--- OUTSIDE RECORDS SUMMARY | 2025-08-25 17:09 | XMS_ITS | Encounter Summary ---
Author Organization [facility] Address [address] [place] [address] Care Team Providers Care Hoop Riveting Machine Operator Helper Name Role Phone Lavell Marcos MD Primary Care Provider [phone] Jennifer Sylvester MD Primary Care Provider [phone] [facility], Pcp Primary Care Provider Unavailabl e Encounter Details Date Type Department Care Team Description 10/12/2019 Old Medical Records Medical Records [address] [place] [address] Abstract, Provider Social History Tobacco Use Types [...] on filedocumented in this encounter Care Teams Hoop Riveting Machine Operator Helper Relationship Specialty Start Date End Date Lavell Marcos MD [address] [place] [address]309 PCP - General 04/06/07 02/08/21 Jennifer Sylvester MD [address] [place] [address] [phone] PCP - General Internal Medicine 02/09/21 01/22/23 [facility], Pcp [address] [place] [address] 31564 PCP - General Internal Medicine 01/23/23 documented as of this encounter
--- OUTSIDE RECORDS SUMMARY | 2025-08-25 17:09 | XMS_ITS | Encounter Summary ---
Author Organization [facility] Address [address] [place] [address] Care Team Providers Care Merit System Director Name Role Phone Lavell Marcos MD Primary Care Provider [phone] Jennifer Sylvester MD Primary Care Provider [phone] [facility], Pcp Primary Care Provider Unavailabl e Encounter Details Date Type Department Care Team Description 06/15/2013 Food Service Ambassador Report Medical Records [address] [place] [address] Eduardo Lino MD Social History Tobacco Use [...] on filedocumented in this encounter Care Teams Merit System Director Relationship Specialty Start Date End Date Lavell Marcos MD [address] [place] [address] 61836 PCP - General 04/06/07 02/08/21 Jennifer Sylvester MD [address] [place] [address] 48438 PCP - General Internal Medicine 02/09/21 01/22/23 Jarrod, Joe [address] [place] [address] 46699 PCP - General Internal Medicine 01/23/23 documented as of this encounter
--- OUTSIDE RECORDS SUMMARY | 2025-08-25 17:09 | XMS_ITS | Encounter Summary ---
Author Organization [facility] Address [address] [place] [address] Care Team Providers Care Solution Specialist Name Role Phone Lavell Marcos MD Primary Care Provider Jennifer Sylvester MD Primary Care Provider [phone] [facility], Pcp Primary Care Provider Unavailabl e Encounter Details Date Type Department Care Team Description 01/14/2014 Advertising Job Titles Report Medical Records [address] [place] [address] Eduardo Lino MD Social History Tobacco Use [...] filedocumented in this encounter Care Teams Solution Specialist Relationship Specialty Start Date End Date Lavell Marcos MD [address] [place] [address] 36433 PCP - General 04/06/07 02/08/21 Jennifer Syvlester MD [address] [place] [address] 30399 PCP - General Internal Medicine 02/09/21 01/22/23 [facility], Pcp [address] [place] [address] 08503 PCP - General Internal Medicine 01/23/23 documented as of this encounter
--- OUTSIDE RECORDS SUMMARY | 2025-08-25 17:10 | XMS_ITS | Encounter Summary ---
Author Organization [facility] Address [address] [place] [address] Care Team Providers Care Circuitry Negative Inspector Name Role Phone Jennifer Sylvester MD Primary Care Provider [facility], Pcp Primary Care Provider Unavailletty e Encounter Details Date Type Department Care Team Description 08/12/2022 Sleep Tech Report Medical Records [address] [place] [address] Bib Sandoval MD Social History Tobacco Use [...] on filedocumented in this encounter Care Teams Circuitry Negative Inspector Relationship Specialty Start Date End Date Jennifer Sylvester MD [address] [place] [address] [phone] PCP - General Internal Medicine 02/09/21 01/22/23 [facility], Pcp [address] [place] [address] 41877 PCP - General Internal Medicine 01/23/23 documented as of this encounter
--- OUTSIDE RECORDS SUMMARY | 2025-08-25 17:10 | XMS_ITS | Encounter Summary ---
Author Organization [facility] Address [address] [place] [address] Care Team Providers Care Heel Molder Name Role Phone Jennifer Sylvester MD Primary Care Provider [phone] [facility], Pcp Primary Care Provider Unavailletty e Encounter Details Date Type Department Care Team Description 03/18/2022 Facilities Technician Report Medical Records [address] [place] [address] Bib Sandoval MD Social History Tobacco Use [...] on filedocumented in this encounter Care Teams Heel Molder Relationship Specialty Start Date End Date Jennifer Sylvester MD [address] [place] [address] [phone] PCP - General Internal Medicine 02/09/21 01/22/23 [facility], Pcp [address] [place] [address] 18994 PCP - General Internal Medicine 01/23/23 documented as of this encounter
--- OUTSIDE RECORDS SUMMARY | 2025-08-25 17:10 | XMS_ITS | Encounter Summary ---
Author Organization [facility] Address [address] [place] [address] Care Team Providers Care Glass Fitter Name Role Phone Lavell Marcos MD Primary Care Provider [phone] Jennifer Sylvester MD Primary Care Provider [phone] [facility], Pcp Primary Care Provider Unavailabl e Encounter Details Date Type Department Care Team Description 02/05/2013 Music Orchestrator Report Medical Records [address] [place] [address] Eduardo Lino MD Social History Tobacco Use [...] on filedocumented in this encounter Care Teams Glass Fitter Relationship Specialty Start Date End Date Lavell Marcos MD [address] [place] [address] 59921 PCP - General 04/06/07 02/08/21 Jennifer Sylvester MD [address] [place] [address] 46048 PCP - General Internal Medicine 02/09/21 01/22/23 Jarrod, Joe [address] [place] [address] 36615 PCP - General Internal Medicine 01/23/23 documented as of this encounter
--- OUTSIDE RECORDS SUMMARY | 2025-08-25 17:10 | XMS_ITS | Encounter Summary ---
Author Organization [facility] Address [address] [place] [address] Care Team Providers Care Primary Products Inspectors Name Role Phone Lavell Marcos MD Primary Care Provider [phone] Jennifer Sylvester MD Primary Care Provider [phone] [facility], Pcp Primary [facility] Encounter Details Date Type Department Care Team Description 07/16/2016 Pt. Non Urgent Medical Question Gastroenterology - [address] [address] Roger Erazo MD Other constipation (Primary Dx); [...] syndrome documented in this encounter Care Teams Primary Products Inspectors Relationship Specialty Start Date End Date Lavell Marcos MD [address] [place] [address] [phone] PCP - General 04/06/07 02/08/21 Jennifer Sylvester MD [address] [place] [address] 99196 PCP - General Internal Medicine 02/09/21 01/22/[address] [address] PCP - General Internal Medicine 01/23/23 documented as of this encounter
--- OUTSIDE RECORDS SUMMARY | 2025-08-25 17:10 | XMS_ITS | Encounter Summary ---
Author Organization [facility] Address [address] [place] [address] Care Team Providers Care Fire Coordinator Name Role Phone Lavell Marcos MD Primary Care Provider [phone] Jennifer Sylvester MD Primary Care Provider [phone] [facility], Pcp Primary Care Provider Unavailabl e Encounter Details Date Type Department Care Team Description 11/13/2012 Civil Engineering Project Manager Report Medical Records [address] [place] [address] Eduardo Lino MD Social History Tobacco Use [...] filedocumented in this encounter Care Teams Fire Coordinator Relationship Specialty Start Date End Date Lavell Marcos MD [address] [place] [address] [phone] PCP - General 04/06/07 02/08/21 Jennifer Sylvester MD [address] [place] [address]446 PCP - General Internal Medicine 02/09/21 01/22/23 Jarrod, Joe [address] [place] [phone] PCP - General Internal Medicine 01/23/23 documented as of this encounter
--- OUTSIDE RECORDS SUMMARY | 2025-08-25 17:10 | XMS_ITS | Encounter Summary ---
Author Organization [facility] Address [address] [place] [address] Care Team Providers Care Self Sealing Fuel Tank Repairer Name Role Phone Lavell Marcos MD Primary Care Provider [phone] Jennifer Sylvester MD Primary Care Provider [phone] [facility], Pcp Primary Care Provider Unavailabl e Encounter Details Date Type Department Care Team Description 12/04/2015 CDL BULK DRIVER/MassPat Report Medical Records [address] [place], [place] [id number] Abstract, Provider Social History Tobacco Use Types [...] on filedocumented in this encounter Care Teams Self Sealing Fuel Tank Repairer Relationship Specialty Start Date End Date Lavell Marcos MD [address] [place] [address] PCP - General 04/06/07 02/08/21 Jennifer Sylvester MD [address] [place] [address] PCP - General Internal Medicine 02/09/21 01/22/23 [facility], Pcp [address] [place] [address] PCP - General Internal Medicine 01/23/23 documented as of this encounter
--- OUTSIDE RECORDS SUMMARY | 2025-08-25 17:10 | XMS_ITS | Encounter Summary ---
Author Organization [facility] Address [address] [place] [address] Care Team Providers Care Engineering Psychologist Name Role Phone Lavell Marcos MD Primary Care Provider Jennifer Sylvester MD Primary Care Provider [phone] [facility], Pcp Primary Care Provider Unavailabl e Encounter Details Date Type Department Care Team Description 06/25/2019 Special Needs Bus Driver Report Medical Records [address] [place] [address] Raj Hardwick MD Social History Tobacco Use [...] on filedocumented in this encounter Care Teams Engineering Psychologist Relationship Specialty Start Date End Date Lavell Marcos MD [address] [place] [address] PCP - General 04/06/07 02/08/21 Jennifer Sylvester MD [address] [place] [address]183 PCP - General Internal Medicine 02/09/21 01/22/23 [facility], Pcp [address] [place] [address] 26640 PCP - General Internal Medicine 01/23/23 documented as of this encounter
--- OUTSIDE RECORDS SUMMARY | 2025-08-25 17:10 | XMS_ITS | Encounter Summary ---
Author Organization [facility] Address [address] [place] [address] Care Team Providers Care Biological Aide Name Role Phone Jennifer Sylvester MD Primary Care Provider [phone] [facility], Pcp Primary Care Provider [facility] Encounter Details Date Type Department Care Team Description 06/11/2022 Brass And Wind Instrument Repairer Report Medical Records [address] [place] [address] Bib Sandoval MD Social History Tobacco Use [...] on filedocumented in this encounter Care Teams Biological Aide Relationship Specialty Start Date End Date Jennifer Sylvester MD [address] [place] [address] [phone] PCP - General Internal Medicine 02/09/21 01/22/23 [facility], Pcp [address] [place] [phone] PCP - General Internal Medicine 01/23/23 documented as of this encounter
--- OUTSIDE RECORDS SUMMARY | 2025-08-25 17:10 | XMS_ITS | Encounter Summary ---
Author Organization [facility] Address [address] [place] [address] Care Team Providers Care Medical Radiation Tech Name Role Phone Jennifer Sylvester MD Primary Care Provider [phone] [facility], Pcp Primary Care Provider Unavailletty e Encounter Details Date Type Department Care Team Description 08/08/2021 Commercial Underwriter Report Medical Records [address] [place] [address] Bib Sandoval MD Social History Tobacco Use [...] filedocumented in this encounter Care Teams Medical Radiation Tech Relationship Specialty Start Date End Date Jennifer Sylvester MD [address] [place] [address] [phone] PCP - General Internal Medicine 02/09/21 01/22/23 [facility], Pcp [address] [place] [address] 15743 PCP - General Internal Medicine 01/23/23 documented as of this encounter
--- OUTSIDE RECORDS SUMMARY | 2025-08-25 17:10 | XMS_ITS | Encounter Summary ---
Author Organization [facility] Address [address] [place] [address] Care Team Providers Care Apprentice Stylist Name Role Phone Lavell Marcos MD Primary Care Provider [phone] Jennifer Sylvester MD Primary Care Provider [phone] [facility], Pcp Primary Care Provider Unavailabl e Reason for Visit * Reason Onset Date Comments Echocardiogram 09/08/2012 Encounter Details Date Type Department Care Team Description 09/08/2012 Telephone Adult Medicine [address] [phone] Roselyn Tavarez PA-C Echocardiogram Social History Tobacco [...] for the echocardiogram has been faxed to [address] to be done documented in this encounter Plan of Treatment Not on file documented as of this encounter Visit Diagnoses Not on filedocumented in this encounter Care Teams Apprentice Stylist Relationship Specialty Start Date End Date Lavell Marcos MD [address] [place] [address] [phone] PCP - General 04/06/07 02/08/21 Jennifer Sylvester MD [address] [place] [phone] PCP - General Internal Medicine 02/09/21 01/22/23 [facility], Pcp [address] [place] [phone] PCP - General Internal Medicine 01/23/23 documented as of this encounter
--- OUTSIDE RECORDS SUMMARY | 2025-08-25 17:10 | XMS_ITS | Encounter Summary ---
Author Organization [facility] Address [address] [place] [address] Care Team Providers Care Central Office Maintainer Name Role Phone Jennifer Sylvester MD Primary Care Provider [phone] [facility], Pcp Primary Care Provider Unavailletty e Encounter Details Date Type Department Care Team Description 08/05/2021 Hospital Medical Records [address] [place] [address] Kimberlyn Lester MD Social History Tobacco Use Types Packs/Day [...] filedocumented in this encounter Care Teams Central Office Maintainer Relationship Specialty Start Date End Date Jennifer Sylvester MD [address] [place] [address] [phone] PCP - General Internal Medicine 02/09/21 01/22/23 [facility], Pcp [address] [place] [address] PCP - General Internal Medicine 01/23/23 documented as of this encounter
--- OUTSIDE RECORDS SUMMARY | 2025-08-25 17:10 | XMS_ITS | Clinical Summary ---
Author Organization [facility] Address [address] [place] [address] Care Team Providers Care Crm Administrator Name Role Phone [facility], Pcp Primary Care [...] Dispensed Refills Start Date End Date Status [id number] FEINE 50-325-40 MG OR TABS (FIORICET) per [...] on Friday, Wednesdays and Fridays 0 Active [id number] INC OR Take 1 Tab by mouth [...] left lobe of the liver, ultrasound examination, [facility], 12/12/2005. 5 mm angiomyolipomas in the [...] 76 08/30/2021 1:05 PM EDT Temperature 36.3 C (97.3 F) 08/30/2021 1:05 PM EDT Respiratory Rate 12 08/30/2021 1:05 PM EDT [...] 10/19/2019, , 12/29/2018, Additional history exists INFLUENZA (#1) 2025 08/01/2021, 07/05, 07/07/2018, Additional history exists CHOLESTEROL SCREENING 04/30/2026 04/30/2021 , 06/19/2020, 11/27/2018, Additional history exists DTAP/TDAP/TD (3 - Td or Tdap) 11/17/2029 11/17/2019, 09/01/2009 HEPATITIS C SCREENING Completed 05/25/2014 PNEUMOCOCCAL VACCINE Completed 06/22/2015, 11/17/19 14 Care Teams Crm Administrator Relationship Specialty Start Date End Date [facility], Pcp PCP - General Internal Medicine 01/23/23
--- OUTSIDE RECORDS SUMMARY | 2025-08-25 17:10 | XMS_ITS | Encounter Summary ---
Author Organization [facility] Address [address] [place] [address] Care Team Providers Care Canceling And Cutting Control Clerk Name Role Phone Lavell Marcos MD Primary Care Provider Jennifer Sylvester MD Primary Care Provider [phone] [facility], Pcp Primary Care Provider Unavailabl e Reason for Visit * Reason Onset Date Comments Faxed Refill 09/16/2016 Encounter Details Date Type Department Care Team Description 09/16/2016 Refill Adult Medicine [address] [address] Lavell Marcos MD [address] [place] [address] Faxed Refill Social History Tobacco Use Types [...] ALICIA/PPO POS / Plan: PPO $[id number] [place] [id number] / Product Type: PPO [id number] documented in this encounter Plan of Treatment Not on file documented as of this encounter Visit Diagnoses Not on filedocumented in this encounter Care Teams Canceling And Cutting Control Clerk Relationship Specialty Start Date End Date Lavell Marcos MD [address] [place] [phone] PCP - General 04/06/07 02/08/21 Jennifer Sylvester MD [address] [place] [address] [phone] PCP - General Internal Medicine 02/09/21 01/22/23 [facility], Pcp [address] [place] [address] PCP - General Internal Medicine 01/23/23 documented as of this encounter
--- OUTSIDE RECORDS SUMMARY | 2025-08-25 17:10 | XMS_ITS | Encounter Summary ---
Author Organization [facility] Address [address] [place] [address] Care Team Providers Care Huller Operator Name Role Phone Lavell Marcos MD Primary Care Provider [phone] Jennifer Sylvester MD Primary Care Provider [phone] [facility], Pcp Primary Care Provider Unavailabl e Encounter Details Date Type Department Care Team Description 05/07/2012 Hospital Medical Records [address] [place] [address] Chelsea Hassan Social History Tobacco Use Types Packs/Day Years [...] on filedocumented in this encounter Care Teams Huller Operator Relationship Specialty Start Date End Date Lavell Marcos MD [address] [place] [address] 63636 PCP - General 04/06/07 02/08/21 Jennifer Sylvester MD [address] [place] [address] [phone] PCP - General Internal Medicine 02/09/21 01/22/23 Jar[facility], Pcp [address] [place] [address] 29694 PCP - General Internal Medicine 01/23/23 documented as of this encounter
--- OUTSIDE RECORDS SUMMARY | 2025-08-25 17:10 | XMS_ITS | Encounter Summary ---
Author Organization [facility] Address [address] [place] [address] Care Team Providers Care Apprenticeship Training Representative Name Role Phone Lavell Marcos MD Primary Care Provider [phone] Jennifer Sylvester MD Primary Care Provider [phone] [facility], Pcp Primary Care Provider Unavailabl e Encounter Details Date Type Department Care Team Description 03/04/2013 Thread Cutter Tender Report Medical Records [address] [place] [address] Eduardo Lino MD Social History Tobacco Use [...] on filedocumented in this encounter Care Teams Apprenticeship Training Representative Relationship Specialty Start Date End Date Lavell Marcos MD [address] [place] [address] 75273 PCP - General 04/06/07 02/08/21 Jennifer Sylvester MD [address] [place] [address] 21468 PCP - General Internal Medicine 02/09/21 01/22/23 Jarrod, Joe [address] [place] [address] 40386 PCP - General Internal Medicine 01/23/23 documented as of this encounter
--- OUTSIDE RECORDS SUMMARY | 2025-08-25 17:10 | XMS_ITS | Encounter Summary ---
Author Organization [facility] Address [address] [place] [address] Care Team Providers Care Centerless Grinding Machine Adjuster Name Role Phone Jennifer Sylvester MD Primary Care Provider [phone] [facility], Pcp Primary Care Provider Unavailletty e Encounter Details Date Type Department Care Team Description 08/06/2021 Hospital Medical Records [address] [place] [address] Souleymane Stearns MD Social History Tobacco Use [...] on filedocumented in this encounter Care Teams Centerless Grinding Machine Adjuster Relationship Specialty Start Date End Date Jennifer Sylvester MD [address] [place] [address] [phone] PCP - General Internal Medicine 02/09/21 01/22/23 [facility], Pcp [address] [place] [phone] PCP - General Internal Medicine 01/23/23 documented as of this encounter
--- OUTSIDE RECORDS SUMMARY | 2025-08-25 17:10 | XMS_ITS | Encounter Summary ---
Author Organization [facility] Address [address] [place] [address] Care Team Providers Care Solutions Delivery Consultant Name Role Phone Lavell Marcos MD Primary Care Provider [phone] Jennifer Sylvester MD Primary Care Provider [phone] [facility], Pcp Primary Care Provider [facility] Encounter Details Date Type Department Care Team Description 07/19/2016 Pt. Non Urgent Medical Question Adult Medicine [facility] [address] [place] [address] Lavell Marcos MD [address] [place] [address] Social History Tobacco Use Types Packs/Day Years [...] on filedocumented in this encounter Care Teams Solutions Delivery Consultant Relationship Specialty Start Date End Date Lavell Marcos MD [address] [place] [phone] PCP - General 04/06/07 02/08/21 Jennifer Sylvester MD [address] [place] [address] [phone] PCP - General Internal Medicine 02/09/21 01/22/[address] [address] PCP - General Internal Medicine 01/23/23 documented as of this encounter
--- OUTSIDE RECORDS SUMMARY | 2025-08-25 17:10 | XMS_ITS | Encounter Summary ---
Author Organization [facility] Address [address] [place] [address] Care Team Providers Care Procurement Services Manager Name Role Phone Jennifer Sylvester MD Primary Care Provider [phone] [facility], Pcp Primary Care Provider Unavailabl e Encounter Details Date Type Department Care Team Description 08/05/2021 [facility] Medical Records [address] [place] [address] Chris Lincoln MD Social History Tobacco Use [...] on filedocumented in this encounter Care Teams Procurement Services Manager Relationship Specialty Start Date End Date Jennifer Sylvester MD [address] [place] [address] [phone] PCP - General Internal Medicine 02/09/21 01/22/23 [facility], Pcp [address] [place] [address] 50741 PCP - General Internal Medicine 01/23/23 documented as of this encounter
--- OUTSIDE RECORDS SUMMARY | 2025-08-25 17:10 | XMS_ITS | Encounter Summary ---
Author Organization [facility] Address [address] [place] [address] Care Team Providers Care Shade Bander Name Role Phone Lavell Macros MD Primary Care Provider [phone] Jennifer Sylvester MD Primary Care Provider [phone] [facility]ly [facility], [facility], Pcp Primary Care Provider Unavailabl e Encounter Details Date Type Department Care Team Description 02/23/2013 Global Marketing Specialist Report Medical Records [address] [place] [id number] Micheal Larsen Social History Tobacco Use Types [...] on filedocumented in this encounter Care Teams Shade Bander Relationship Specialty Start Date End Date Lavell Marcos MD [address] [place] [phone] PCP - General 04/06/07 02/08/21 Jennifer Sylvester MD [address] [place] [address] [phone] PCP - General Internal Medicine 02/09/21 01/22/23 [facility], Pcp [address] [place] [address] [phone] PCP - General Internal Medicine 01/23/23 documented as of this encounter
--- OUTSIDE RECORDS SUMMARY | 2025-08-25 17:10 | XMS_ITS | Encounter Summary ---
Author Organization [facility] Address [address] [place] [address] Care Team Providers Care Printing Assistant Name Role Phone Lavell Marcos MD Primary Care Provider [phone] Jennifer Sylvester MD Primary Care Provider [phone] [facility] [place] [facility], Pcp Primary Care Provider Unavailabl e Encounter Details Date Type Department Care Team Description 08/29/2016 Release of Information Medical Records [address] [place], [place] [id number] Abstract, Provider Social History Tobacco Use Types [...] on filedocumented in this encounter Care Teams Printing Assistant Relationship Specialty Start Date End Date Lavell Marcos MD [address] [place] [address] [phone] PCP - General 04/06/07 02/08/21 Jennifer Sylvester MD [address] [place] [address] [phone] PCP - General Internal Medicine 02/09/21 01/22/23 [facility], Pcp [address] [place] [address] [phone] PCP - General Internal Medicine 01/23/23 documented as of this encounter
--- OUTSIDE RECORDS SUMMARY | 2025-08-25 17:10 | XMS_ITS | Encounter Summary ---
Author Organization [facility] Address [address] [place] [address] Care Team Providers Care Occupational Health Nursing Director Name Role Phone Lavell Marcos MD Primary Care Provider [phone] Jennifer Sylvester MD Primary Care Provider [phone] [facility], Pcp Primary Care Provider Unavailabl e Encounter Details Date Type Department Care Team Description 12/09/2012 Mold Stripper Report Medical Records [address] [place] [phone] Micheal Larsen Social History Tobacco Use Types [...] on filedocumented in this encounter Care Teams Occupational Health Nursing Director Relationship Specialty Start Date End Date Lavell Marcos MD [address] [place] [address] [phone] PCP - General 04/06/07 02/08/21 Jennifer Sylvester MD [address] [place] [address] [phone] PCP - General Internal Medicine 02/09/21 01/22/23 [facility], Pcp [address] [place] [address] [phone] PCP - General Internal Medicine 01/23/23 documented as of this encounter
--- OUTSIDE RECORDS SUMMARY | 2025-08-25 17:10 | XMS_ITS | Encounter Summary ---
Author Organization [facility] Address [address] [place] [address] Care Team Providers Care Picture Framer Name Role Phone Lavell Marcos MD Primary Care Provider Jennifer Sylvester MD Primary Care Provider [phone] [facility], Pcp Primary Care Provider Unavailabl e Encounter Details Date Type Department Care Team Description 06/07/2019 Buckler And Lacer Report Medical Records [address] [place] [id number] Jose Cornejo MD Social History Tobacco Use [...] on filedocumented in this encounter Care Teams Picture Framer Relationship Specialty Start Date End Date Lavell Marcos MD [address] [place] [phone] PCP - General 04/06/07 02/08/21 Jennifer Sylvester MD [address] [place] [address] [phone] PCP - General Internal Medicine 02/09/21 01/22/23 [facility], Pcp [address] [place] [address] [phone] PCP - General Internal Medicine 01/23/23 documented as of this encounter
--- OUTSIDE RECORDS SUMMARY | 2025-08-25 17:10 | XMS_ITS | Encounter Summary ---
Author Organization [facility] Address [address] [place] [address] Care Team Providers Care Systems Mgr Name Role Phone Lavell Marcos MD Primary Care Provider [phone] Jennifer Sylvester MD Primary Care Provider [phone] [facility], Pcp Primary Care Provider Unavailabl e Encounter Details Date Type Department Care Team Description 01/11/2016 Telephone Adult Medicine [address] [address] Lavell Marcos MD [address] [place] [address] [id number] Social History Tobacco Use Types Packs/Day Years [...] filedocumented in this encounter Care Teams Systems Mgr Relationship Specialty Start Date End Date Lavell Marcos MD [address] [place] [address] [phone] PCP - General 04/06/07 02/08/21 Jennifer Sylvester MD [address] [place] [address] [phone] PCP - General Internal Medicine 02/09/21 01/22/23 [facility], Pcp [address] [place] [address] [phone] PCP - General Internal Medicine 01/23/23 documented as of this encounter
--- OUTSIDE RECORDS SUMMARY | 2025-08-25 17:10 | XMS_ITS | Encounter Summary ---
Author Organization [facility] Address [address] [place] [address] Care Team Providers Care Locomotive Observer Name Role Phone Lavell Marcos MD Primary Care Provider [phone] Jennifer Sylvester MD Primary Care Provider [phone] [facility], Pcp [facility] Encounter Details Date Type Department Care Team Description 02/06/2016 Speech Pathologist Assistant Report Medical Records [address] [place] [phone] Bib Sandoval MD Social History Tobacco Use [...] on filedocumented in this encounter Care Teams Locomotive Observer Relationship Specialty Start Date End Date Lavell Marcos MD [address] [place] [phone] PCP - General 04/06/07 02/08/21 Jennifer Sylvester MD [address] [place] [address] [phone] PCP - General Internal Medicine 02/09/21 01/22/23 [facility], Pcp [address] [place] [address] [phone] PCP - General Internal Medicine 01/23/23 documented as of this encounter
== END 2025-08-25 12:47 | disposition home or self-care (01) ==
LOC: HO.XRAY 12:46
PROVIDERS: PCP Internal Medicine; Visit Provider Student in an Organized Health Care Education/Training Program
DX: M54.50 Low back pain, unspecified (principal)
CPT/HCPCS: 72100

== ENCOUNTER → 2025-08-25 13:36 | Outpatient (BNV) | payer MEDICARE, OTHER, SELFPAY | PROVIDERS: PCP Internal Medicine; Visit Provider Radiology Diagnostic Radiology | DX: M41.86 Other forms of scoliosis, lumbar region (principal); M47.816 Spondylosis without myelopathy or radiculopathy, lumbar region | CPT/HCPCS: 72100 ==

== ENCOUNTER 2025-09-05 13:42 | Outpatient (AMB) | payer MEDICARE, OTHER, SELFPAY ==
--- NOTE | 2025-09-05 13:48 | A.OFFVIS_ITS ---
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 Required: No Accompanied by: Self / Same As Patient Allergies naproxen (From NAPROSYN) Allergy (Severe, Verified 09/05/25 13:51) sensitivity niacin (From NIASPAN EXTENDED-RELEASE) Allergy (Severe, Verified 09/05/25 13:51) Rash clarithromycin (From BIAXIN) Allergy (Mild, Verified 09/05/25 13:51) sensitivity codeine (CODEINE) Allergy (Mild, Verified 09/05/25 13:51) Itching esomeprazole (From Nexium) Allergy (Mild, Verified 09/05/25 13:51) Hives fluconazole (From DIFLUCAN) Allergy (Mild, Verified 09/05/25 13:51) sensitivity gatifloxacin (From TEQUIN) Allergy (Mild, Verified 09/05/25 13:51) sensitivity hydrocodone (From Vicodin) Allergy (Mild, Verified 09/05/25 13:51) Rash levofloxacin (From Levaquin) Allergy (Mild, Verified 09/05/25 13:51) sensitivity oxycodone (From Percocet) Allergy (Mild, Verified 09/05/25 13:51) Itching quinidine (QUINIDINE) Allergy (Mild, Verified 09/05/25 13:51) sensitivity Sulfa (Sulfonamide Antibiotics) (SULFA (SULFONAMIDE ANTIBIOTICS)) Allergy (Mild, Verified 09/05/25 13:51) Rash terfenadine (From SELDANE) Allergy (Mild, Verified 09/05/25 13:51) sensitivity tetracycline (TETRACYCLINE) Allergy (Mild, Verified 09/05/25 13:51) sensitivity amitriptyline Allergy (Unknown, Verified 09/05/25 13:51) Unknown cefaclor (From CECLOR) Adverse Reaction (Severe, Verified 09/05/25 13:51) Unknown abaloparatide (From Tymlos) Adverse Reaction (Intermediate, Verified 09/05/25 13:51) Dizziness bupropion (From Wellbutrin) Adverse Reaction (Intermediate, Verified 09/05/25 13:51) Nausea cefdinir Adverse Reaction (Intermediate, Verified 09/05/25 13:51) Stomach Upset montelukast (From Singulair) Adverse Reaction (Mild, Verified 09/05/25 13:51) Headache topiramate (From TOPAMAX) Adverse Reaction (Mild, Verified 09/05/25 13:51) Stomach Upset HPI Comments Details: The patient is a 79 y/o woman with pulmonary nodules, COPD and dyspnea. She did have a recent CT scan of the chest that we personally reviewed here in the office. This was with contrast. No evidence of any mediastinal structure abnormalities. The patient did have a slight dilation of the esophagus so the refore we need to monitor closely for reflux. However her lingular nodular densities appear to be a little better to be. She still has the atelectasis to the lingula. Although her pulmonary nodules are small subcentimeter in size and will need follow-up. She is wondering about the hypodensities of the liver and spleen. These appear to be very small and likely benign. We need to continue to monitor did nodules in the low and also those findings. We did look at her CT scan of the chest in a pulmonary nodules have been stable in the level of the lingula some degree of mucous plugging. 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 In the meantime she has pulmonary nodules for next CT scan of the chest is going to be for August of this year. Will follow up with her after that. In the meantime she will continue the azithromycin and follow up with Cardiology regarding her left-sided chest discomfort. I did give her reflux diet she will continue for now to minimize her reflux symptoms. 08/21/2022 the patient is here for a pulmonary follow-up visit. Her discomfort is now subsided. She did not complete the prednisone since she was better and she does not like the adverse effects. She is it the rest meantime. The patient had a CT scan back in July demonstrating stable chronic findings. No additional testing is warranted. She did also undergo blood work which was reassuring. We did reviewed in the office. At this point the patient continues uses respiratory therapy as prescribed. 02/26/2023 the patient is here for pulmonary follow-up visit. Overall the patient is doing well. Unfortunately she had a bad fall fracturing her right wrist. She does have a cast right now. From a respiratory status the patient started coughing more. For the last few weeks. Moderate severity. She had been using the Advair just once a day. She did increase it to twice a day she is feeling better. As far as blood work her eosinophils are elevated suggesting an allergic exposure. I did recommend she continue the Advair twice a day. The patient does not need any further imaging at this time. Allergy medications she started on Jackie. Seems to be working well. She cannot use Singulair. If the symptoms worsen she will call the office otherwise I will see her in 6 months. 09/03/2023 the patient is here for a pulmonary follow-up visit. Since we last spoke the patient developed a URI. Ultimately developing significant nasal congestion and cough. Subsequently after that she became more congested. She did go to urgent care. She did have a chest x-ray which is without any acute disease. She was took [id number] medications with improvement. Overall she is feeling better. She does have the Advair inhaler although she does not use it all the time. The patient also complains of some scapular discomfort on the right side. Seems to have some pleuritic component. Appears to be more musculoskeletal. She is had significant issues with scoliosis. At this point the patient will try putting a Lidoderm patch that she does have at home. If she is no better she can always have a repeat chest x-ray. In his symptoms worsen and if not clear based on the x-ray we can consider getting another CT scan. Her last CT scan was last fall demonstrating stability of the parenchymal changes that she is had which is reassuring. 02/25/2024 the patient is here for a pulmonary follow-up visit. Overall she has been doing okay. She has not benefitted from the Symbicort. She felt like the Advair was more effective. Although her respiratory exam is pretty good right now I do not believe that she needs any maintenance inhalers. She should have a rescue inhaler available in case she develops any chest tightness or shortness of breath. She does get short of breath with activity. rohl-aj-[id number] severity. She complains of back pain. Her last chest x-ray demonstrates significant scoliosis. I do believe that this may be contributing to her musculoskeletal issues causing discomfort. She does take as needed Tylenol with good effect. Her last imaging study was otherwise reassuring from a pulmonary standpoint. Will go ahead and repeat her x-ray when she gets back from her trip. On the patient also complains of sinus pressure and also pos tnasal drip. She believes she has a component of sinusitis. She has multiple allergies. She can try taking this more course of doxycycline although if she develops any symptoms she can stop the medicine. The patient also can use a Neti bottle with distilled water to try to provide nasal rinsing. 08/27/2024 the patient is here for a pulmonary follow-up visit. She is doing well from a respiratory status. Denies any cough or wheezing. She is not taking the Singulair because of a question adverse affecting the past. She is taking Claritin with good effect. The patient did have a chest x-ray back in 05/22/2024 which I personally reviewed demonstrating no acute disease is slight scarring at the left base and some scoliosis. She is complaining of significant constipation. She was seen by her GI doctor who gave him so. It does not work she can always try czpr-wcu-[id number] MiraLax. The patient is also having left lower quadrant abdominal pain. This happened after issues a stronger laxative before. I did recommend that she should continue taking medications prescribed by her GI doctor in if the a belly pain gets worse she should call back to her GI doctor to get further imaging studies. 02/28/2025 the patient is here for pulmonary follow-up visit. Overall she is doing well from a respiratory status. Although few nights ago she started developing left-sided chest discomfort that radiated from the top to the bottom of the chest area. Moderate severity. Last about 5 minutes and then it settled. The only new medication or new issue is that she started bupropion at nighttime. She had been taking it during the daytime but it was causing nausea and she was recommended take it at nighttime. Most likely developing esophageal symptoms and potentially spasms. Although she does have cardiovascular risk factors. I will have her get an EKG and if abnormal will have her follow-up with cardiology. In the meantime if the patient has any more symptoms like the 1 she had she also need to be evaluated. The patient has been on Prilosec already and will go ahead and switch her bupropion again to the morning and she can take Pepcid at nighttime to see if this provides additional relief of any did dyspepsia or gastritis or esophagitis that can potentially result in esophageal spasms. From a respiratory status she is doing well she is responding well to the current respiratory therapy she is taking it as needed. Does not need any maintenance therapy at this time. The patient will also undergo a chest x-ray. She has any issues prior to the next visit she will call for an earlier assessment. 09/05/2025 the patient is here for pulmonary follow-up visit. Overall she is doing okay although she has multiple complaints. She started developing worsening cough. Moderate severity. The cough tends to at times be dry although sometimes he can be congested. In addition to that she does complaint of a left flank discomfort and abdominal discomfort. Seems like it is associated with the area of in induration that she has in her skin. She did have a lumbar x-ray but her x-ray demonstrates she has degenerative changes to her back and scoliosis. But did weakly does not show the soft tissue. Therefore have her get an ultrasound of the abdomen. She can follow up with the primary care doctor regarding that. In the meantime the patient will start taking Breo to help her with the cough and likely some degree of reactive airway disease. She does complaint of some tenderness in the neck area she is concerned about the heart. It seems like it is not tenderness for many cardiac issue is likely tenderness from lymphadenitis as she does have smaller lymph nodes in her anterior cervical area and also subclavicular and supraclavicular area. They are tender to the touch. Therefore, will have her get some blood work she has some tenderness over the left upper quadrant so will check a Monospot as well. She can also follow up with the primary care doctor. [facility] Medical History (Updated 09/05/25 @ 21:26 by Eduardo Lino MD) Abdominal pain MCI (mild cognitive impairment) Migraine with aura, with intractable migraine, so stated, with status migrainosus Depression Hiatal hernia Anxiety and depression Neck pain Cervical disc disease Muscle tension headache Paresthesia of skin MCI (mild cognitive impairment) with memory loss Vertigo Myopathy Unspecified optic neuritis Memory change Mgrn w aura w intrc mgrn Sinusitis Stroke Migraine Carpal tunnel syndrome Hemiparesis Chest pain Sinus congestion Cough Weight loss Polyarthralgia Fall Shoulder pain, right Back pain Nausea Palpitation Headache, post-traumatic, acute Scalp irritation Anemia Encounter for vitamin deficiency screening Renal cyst Dense breast Breast cancer screening by mammogram Acute bronchitis Ocular migraine Hyperlipidemia History of CVA (cerebrovascular accident) (~2020) Tubular adenoma of colon (~2005) SERG (obstructive sleep apnea) Nasal vestibulitis Degeneration, intervertebral disc, cervical Dry eye PONV (postoperative nausea and vomiting) Arthritis of neck Cerebral microvascular disease Atherosclerotic cardiovascular disease Precordial chest pain URI (upper respiratory infection) Overactive bladder Microscopic hematuria Urinary urgency Osteoporosis (~1999) Mycobacterial disease GERD (gastroesophageal reflux disease) Pulmonary nodules COPD (chronic obstructive pulmonary disease) Surgical History History of fusion of cervical spine History of sinus surgery History of colonoscopy History of esophagogastroduodenoscopy (EGD) History of bladder suspension procedure Family History Son No problems noted. Social History Household Members: Spouse Housing: [facility] Do you presently have visiting nurse or other home services: No Alcohol intake: never Patient Tobacco Use Status: Never used Tobacco Tobacco use type: Cigarette Years Smoked: parent and smoker e-Cigarette/Vaping Use: Never Used Second Hand Smoke Exposure: Yes Advance Directives Date on File: 08/16/20 service: No Current occupational status: retired Current occupation: right hand Cognitive needs: No Hearing needs: Yes (hearing aides) Vision needs: Yes (Glasses) Review of Systems Const Reports difficulty sleeping and Denies night sweats ENT Denies lip swelling, Denies sinus pain, Reports sinus pressure and Denies tongue swelling Card Denies palpitations, Denies dyspnea and Denies dyspnea on exertion Resp Reports cough, Denies pain on inspiration, Denies pain with cough, Denies dyspnea and Denies dyspnea on exertion GI Reports abdominal pain, Reports constipation, Reports GI cramping, Reports dyspepsia, Reports heartburn and Reports nausea Musc Reports back pain and Reports myalgias Neuro Denies Neuro-related abnormal movements and Denies Abnormal speech present Psych Denies no additional complaints Endo Denies palpitations Jose Alejandro/Lymph Denies easy bleeding and Denies lymphadenopathy Aller/Immun Denies lip swelling and Denies tongue swelling Physical Exam Vital Signs: Last Vital Signs Pulse 78 09/05/25 13:50 BP 140/64 H 09/05/25 13:50 BMI result Body Mass Index 22.6 Const General: comfortable and no acute distress Orientation/consciousness: patient oriented x3 HEENT Other: Unremarkable Head: Yes normal to inspection Neck Lymphatic: lymphadenopathy Chest Chest palpation & inspection: normal inspection of the chest Resp Effort & Inspection: normal respiratory effort Auscultation: clear to auscultation bilaterally Cardio Palpation: normal PMI Heart sounds: S1 normal heart sound present, S2 normal heart sound present, no gallops, no murmurs and no rubs GI Palpation (GI): Soft to palpation and Tenderness to palpation present (GI) in the LUQ Back/Spine/Pelvis Other: unremarkable Skin General skin exam: no rashes or lesions noted Neuro General: patient oriented x3 Speech: No Abnormal speech present Extrem General: Yes normal to inspection Psych Mental Status: mental status grossly normal Assessment & Plan Assessment & Plan (1) COPD (chronic obstructive pulmonary disease): Code(s): J44.9 - Chronic obstructive pulmonary disease, unspecified Category: Medical Qualifiers: COPD type: chronic bronchitis Chronic bronchitis type: simple Qualified Code(s): J41.0 - Simple chronic bronchitis (2) Cough: Code(s): R05 - Cough Category: Medical Qualifiers: Cough type: chronic Qualified Code(s): R05.3 - Chronic cough (3) Dyspnea: Code(s): R06.00 - Dyspnea, unspecified Category: Medical Qualifiers: Dyspnea type: shortness of breath Qualified Code(s): R06.02 - Shortness of breath (4) Pulmonary nodules: Code(s): R91.8 - Other nonspecific abnormal finding of lung field Category: Medical (5) Lymphadenitis: Code(s): I88.9 - Nonspecific lymphadenitis, unspecified Category: Medical (6) Abdominal pain: Code(s): R10.9 - Unspecified abdominal pain Category: Medical Qualifiers: Abdominal location: left upper quadrant Qualified Code(s): R10.12 - Left upper quadrant pain Plan continue LUZ as needed start Breo continue claritin US Abdomen Bloodwork EKG to assess palpitations F/U 4-6 months Orders: Orders Complete Blood Count Auto Diff Today I88.9 - Nonspecific lymphadenitis, unspecified Basic Metabolic Panel Today I88.9 - Nonspecific lymphadenitis, unspecified Erythrocyte Sedimentation Rate Today I88.9 - Nonspecific lymphadenitis, unspecified Lactate Dehydrogenase Today I88.9 - Nonspecific lymphadenitis, unspecified Liver Panel Today I88.9 - Nonspecific lymphadenitis, unspecified ECG 12 lead EKG Today R07.89 - Other chest pain AMB [place] Screen Today I88.9 - Nonspecific lymphadenitis, unspecified, Z13.9 - Encounter for screening, unspecified US abdomen complete Today R10.9 - Unspecified abdominal pain Medications: New fluticasone furoate-vilanterol 200-25 mcg/dose (Breo Ellipta) 1 inh inhalation DAILY 60 ea 11RF 30 days Coding Level of Care Code Est Pt Level 4 (48882) Complex EM visit Add On G2211 Diagnoses Simple chronic bronchitis J41.0 COPD type: chronic bronchitis Chronic bronchitis type: simple Chronic cough R05.3 Cough type: chronic Shortness of breath R06.02 Dyspnea type: shortness of breath Pulmonary nodules R91.8 Lymphadenitis I88.9 Left upper quadrant abdominal pain R10.12 Abdominal location: left upper quadrant Time Spent (min) 20
[2025-09-05 13:50] VITALS: BP 140/64; PULSE 78; BMI 22.6
== END 2025-09-05 14:45 | disposition home or self-care (01) ==
LOC: HO.HPS 13:43
PROVIDERS: PCP Internal Medicine; Visit Provider Hospitalist
DX: J41.0 Simple chronic bronchitis (principal); R05.3 Chronic cough; R06.02 Shortness of breath; R91.8 Other nonspecific abnormal finding of lung field; I88.9 Nonspecific lymphadenitis, unspecified; R10.12 Left upper quadrant pain
CPT/HCPCS: 99214; G2211

== ENCOUNTER → 2025-09-05 13:42 | Outpatient (BNVA) | payer MEDICARE, OTHER, SELFPAY | PROVIDERS: PCP Internal Medicine; Visit Provider Hospitalist | DX: J41.0 Simple chronic bronchitis (principal); R06.02 Shortness of breath; R91.8 Other nonspecific abnormal finding of lung field; I88.9 Nonspecific lymphadenitis, unspecified; R10.12 Left upper quadrant pain | CPT/HCPCS: 99212 ==

== ENCOUNTER → 2025-09-06 15:21 | Outpatient (REF) | payer MEDICARE, OTHER, SELFPAY ==
--- NOTE | 2025-09-06 15:27 | ECG_ITS ---
Test Reason : CP Blood Pressure : */* mmHG Vent. Rate : 66 BPM Atrial Rate : 66 BPM P-R Int : 154 ms QRS Dur : 86 ms QT Int : 424 ms P-R-T Axes : 51 -27 -14 degrees QTcB Int : 444 ms Normal sinus rhythm Nonspecific ST and T wave abnormality Abnormal ECG When compared with ECG of 28-Feb-2025 11:06, Nonspecific T wave abnormality has replaced inverted T waves in Anterior leads Referred By: Eduardo Lino Electronically Signed By: Perfecto Dixon
[2025-09-06 15:42] LABS: MANUAL DIFF FLAG NO
[2025-09-06 17:20] LABS: Hematocrit 37.3 % (37.0-47.0); Hemoglobin 11.9 g/dl (12.0-16.0); Imm Gran Abs Auto 0.04 X10*3/uL (0.00-0.03); Imm Gran Pct Auto 0.4 % (0.0-0.4); Lymphocytes Absolute Auto 2.0 X10*3/uL (1.2-4.9); Mean Corpuscular HGB Conc 31.9 g/dl (31.0-35.0); Mean Corpuscular Hemoglobin 29.5 pg (27.0-33.0); Mean Corpuscular Volume 92.6 fL (80.0-98.0); NRBC Abs Auto 0.000 X10*3/uL (0.0-0.012); NRBC Pct Auto 0.0 /100WBC (0.0-0.2); Platelet Count 255 X10*3/uL (160-400); Red Blood Count 4.03 X10*6/uL (4.20-5.50); White Blood Count 9.9 X10*3/uL (4.8-10.8)
[2025-09-06 17:40] LABS: Alanine Aminotransferase 14 U/L (0-31); Albumin Level 4.3 g/dL (3.5-5.0); Alkaline Phosphatase 78 U/L (39-117); Anion Gap 9 (12-20); Aspartate Amino Transferase 23 U/L (5-31); Blood Urea Nitrogen 15 mg/dL (9-16); Calcium 9.1 mg/dL (8.4-10.2); Carbon Dioxide 29 mmol/L (22-29); Chloride 108 mmol/L (96-108); Estimated Glomerular Filt Rate > 60; Potassium 3.6 mmol/L (3.3-5.1); Sodium 142 mmol/L (135-145); Total Protein 6.7 g/dL (6.5-8.0)
--- OUTSIDE RECORDS SUMMARY | 2025-09-06 18:10 | XMS_ITS | Clinical Summary ---
Author Organization [facility] Address [address] [place] [id number] Phone Care Team Providers Care Industrial Electrician Name Role Phone Vernon Mojica MD Primary [...] and muscle strengthening exercises. Follow closely with foundry worker apprentice as scheduled Visit for monitoring Reclast therapy [...] Continue as prescribed. Close follow-up with treating/prescribing brim molder Assessment & Plan (01/06/2020 1:22 PM EST): Continue as prescribed. Close follow-up with treating/prescribing brim molder Assessment & Plan (03/31/2019 8:43 AM EDT): Continue as prescribed. Close follow-up with treating/prescribing brim molder Primary osteoarthritis involving multiple joints 10/06/2017 Assessment [...] Formulation 11/10(Deferred: Other - , Ordered By: [id number]),08/03/2012 Pneumococcal conjugate PCV13 06/22/2015 Pneumococcal polysaccharide PPSV23 [...] bone mineral density since 2018. POS - [id number] Narrative 04/20/2019 9:11 AM EDT This is [...] at L3-4 and was calculated at 0.667 gm/hj2pbds a T-score of - 2.8 and Z-score of -0.8, falling within the WHOclassification of osteoporosis, representing an interval decline of 3.2%since 2018 which is not felt to be within the range of statisticalsignificance.. Total bone mineral density in the right hip was calculated at 0.675 gm/de5aovg a T-score of -2.2 and Z-score of [...] hip bone mineral densitysince 2018. POS - [id number] us Johnna I Klich-Navneet MD IMG BD BONE DENSITY DEXA Final Result * (ABNORMAL) Historical Lab (02/23/2013 10:57 AM EDT) Thyroid Stimulating Hormone 0.09(Abno rmally L) 0.40 - 5.00 uU/ml [facility] 02/23/2013 10:5 7 AM EDT 02/23/2013 1:14 PM EDT Comment:BLOOD us Micheal Larsen MD LAB BLOOD ORDERABLES Final Result [address] [id number] from Last 3 Months or Most Recently Relevant to Health Maintenance Insurance MEDICARE PART A & B [facility] MED[employer] ENHANCE SUPPLEMENT MEDICARE PART A & B [facility] MEDICARE ENHANCE SUPPLEMENT MEDICARE PART A & B [facility] MEDICARE ENHANCE SUPPLEMENT MEDICARE PART A & B MEDICARE ENHANCE SUPPLEMENT MEDICARE PART A & B [id number] [place] [address] MEDICARE ENHANCE SUPPLEMENT MEDICARE PART A & B [facility] MEDICARE ENHANCE SUPPLEMENT MEDICARE PART A & B [facility] MEDICARE ENHANCE SUPPLEMENT MEDICARE PART A & B [facility] MEDICARE ENHANCE SUPPLEMENT MEDICARE PART A & B [facility] MEDICARE ENHANCE SUPPLEMENT MEDICARE PART A & B [facility] MEDICARE ENHANCE SUPPLEMENT Care Teams Industrial Electrician Relationship Specialty Start Date End Date Vernon Mojica MD [address] [place] [address] NADIASAAD MURPHY [id number] PCP - General Internal Medicine 07/03/22 Additional Source Comments The information contained in this document represents components of the legal health record. It is not the complete legal health record.[facility]
--- OUTSIDE RECORDS SUMMARY | 2025-09-06 18:10 | XMS_ITS | Clinical Summary ---
Author Organization [facility] Address [address] [place] [address] Care Team Providers Care Dust Handler Name Role Phone TariqAbby Monico Primary Care Provider [phone] Allergies Active Allergy Reactions Criticality Noted Date [...] 100 g 2 5 08/30/20 25 Active Problems Problem Noted Date Diagnosed Date Age-related osteoporosis wit hout current pathological fracture 05/17/2024 Encounters Date Type Department Care Team Description 07/07/2025 Telephone [facility] [address] [place] [address] Dust Handler: Marlena Hurst Telephone Intake, Staff PAC Clinical Questions 06/15/2025 9:00 AM EDT Clinical Support [facility] [address] [place] [address] Dust Handler: Rose Castle LPN Age-related osteoporosis without current [...] Description 11/07/2025 9:30 AM EST Follow-Up [facility] [address] [place] [address] Dust Handler: Carlos Diop MD [address] [place] [address] 12/20/2025 9:00 AM EST Clinical Support [facility] [address] [place] [address] Dust Handler: Marlena Hurst Health Maintenance Due Date Last [...] topic Procedures * Due to [place] state law, this organization might not be [...] Maintenance Results * Due to [place] state law, this organization might not be [...] loss. For additional information, please refer to https://Envestnet.Digiscend/faq/TNS658 (This link is being provided for informational/ educational purposes only.) Blood Structure of peripheral vein / Unknown 06/06/2025 10:34 AM EDT 06/08/2025 7:27 AM EDT Narrative [facility] - 06/09/2025 9:49 PM EDT FASTING:YES us Chiquita Painter MD LAB BLOOD ORDERABLES Final Resul t [facility] [address] [facility] 3rd Floor, [place] [address], [facility]/NAHEED MARTINEZ [address] [place] [address] * Vitamin D, 25-Hydroxy, Total, Immunoassay (06/06/2025 10:34 AM EDT) Calcidiol+ercalc idiol 63 30 - 100 ng/mL 06/06/2025 10:13 PM EDT [facility] Comment: Vitamin D Status 25-OH Vitamin D: Deficiency: <20 ng/mL Insufficiency: 20 - 29 ng/mL Optimal: > or = 30 ng/mL For 25-OH Vitamin D testing on patients on D2-supplementation and patients for whom quantitation of D2 and D3 fractions is required, the QuestAssureD(TM) 25-OH VIT D, (D2,D3), LC/MS/MS is recommended: order code 13413 (patients >2yrs). See Note 1 Note 1 For additional information, please refer to http://education.BookingPal/faq/OFO692 (This link is being provided for informational/ educational purposes only.) Blood Structure of peripheral vein / Unknown 06/06/2025 10:34 AM EDT 06/06/2025 9:16 PM EDT Narrative [facility] - 06/09/2025 9:49 PM EDT FASTING:YES us Chiquita Painter MD LAB BLOOD ORDERABLES Final Resul t Performing Organization Address City/[facility]/ZIP Co de Phone Number [facility] [address], [place] [address], [place] [phone] [employer] [address] [address] * Phosphorus (06/06/2025 10:34 AM EDT) Phosphate 2.3 2.1 - 4.3 mg/dL 06/07/2025 12:05 AM EDT [employer] [facility] Blood Structure of peripheral vein / Unknown 06/06/2025 10:34 AM EDT 06/06/2025 9:16 PM EDT Narrative [facility] - 06/09/2025 9:49 PM EDT FASTING:YES us Chiquita Painter MD LAB BLOOD ORDERABLES Final Resul t Performing Organization Address City/[facility]/ZIP Co de Phone Number [facility] [address], [facility] [place] [address], [place] [phone] [employer] [address] [address] * Creatinine (06/06/2025 10:34 AM EDT) Creatinine 0.76 0.60 - 1.00 mg/dL 06/07/2025 12:05 AM EDT [employer] [facility] eGFR 81 > OR = 60 mL/min/1.7 3m2 06/07/2025 12:05 AM EDT [employer] [facility] Blood Structure of peripheral vein / Unknown 06/06/2025 10:34 AM EDT 06/06/2025 9:16 PM EDT Narrative [facility] - 06/09/2025 9:49 PM EDT FASTING:YES us Chiquita Painter MD LAB BLOOD ORDERABLES Final Resul t Performing Organization Address City/[facility]/ZIP Co de Phone Number [facility] [address], [place] [address], [place] [phone] [employer] [address] [address] * Calcium (06/06/2025 10:34 AM EDT) Calcium 9.6 8.6 - 10.4 mg/dL 06/07/2025 12:05 AM EDT [employer] [facility] Blood Structure of peripheral vein / Unknown 06/06/2025 10:34 AM EDT 06/06/2025 9:16 PM EDT Narrative [facility] - 06/09/2025 9:49 PM EDT FASTING:YES us Chiquita Painter MD LAB BLOOD ORDERABLES Final Resul t Performing Organization Address [facility] [place] [facility] de Phone Number [facility] [address], [place] [address], [place] [phone] [employer] [address] [address] * Albumin (06/06/2025 10:34 AM EDT) Albumin 3.9 3.6 - 5.1 g/dL 06/07/2025 12:05 AM EDT [employer] [facility] Blood Structure of peripheral vein / Unknown 06/06/2025 10:34 AM EDT 06/06/2025 9:16 PM EDT Narrative [facility] - 06/09/2025 9:49 PM EDT FASTING:YES us Chiquita Painter MD LAB BLOOD ORDERABLES Final Resul t [facility] [address] [facility] 3rd Floor, [place] [address], [place] [phone] [facility] [address] [place] [address] * HM Dexa Scan (10/31/2023) Anatomical Region Laterality Modality Other 10/31/2023 us Onbase Scan [facility] HEALTH MAINTENANCE Final Resu lt from Last 3 Months or Most Recently Relevant to Health Maintenance Insurance MEDICARE [facility] Care Teams Dust Handler Relationship Specialty Start Date End Date Abby Potter [address] [place] [address] [place] [address] PCP - General Internal Medicine 04/14/24
--- OUTSIDE RECORDS SUMMARY | 2025-09-06 18:10 | XMS_ITS | Encounter Summary ---
Author Organization [facility] Address [address] [place] [address] Care Team Providers Care Respiratory Coordinator Name Role Phone TariqMarleeelidia Marc Primary Care Provider [phone] Reason for Visit * Reason Onset Date Comments PAC Patient Request Call Back 06/08/2024 Encounter Details Date Type Department Care Team (Late st Contact Info) Description 06/08/2024 Telephone [facility] [address] [place] [address] Telephone Intake, Staff PAC Patient Request Call [...] for 9am. Patient can be reached at [phone]. Thank you - PAC documented in this encounter Plan of Treatment Upcoming Encounters Date Type Department Care Team (Late st Contact Info) Description 11/07/2025 9:30 AM EST Follow-Up [facility] [address] [place] [address] Litigation Assistant: Carlos Diop MD [address] [place] [address] 12/20/2025 9:00 AM EST Clinical Support [facility] [address] [place] [address] Litigation Assistant: Marlena Hurst documented as of this encounter Visit Diagnoses Not on filedocumented in this encounter Care Teams Respiratory Coordinator Relationship Specialty Start Date End Date Abby Potter [address] [place] [address] [place] [address] PCP - General Internal Medicine 04/14/24 documented as of this encounter
== END ==
LOC: HO.CARD 15:21
PROVIDERS: PCP Internal Medicine; Visit Provider Hospitalist
DX: R07.89 Other chest pain (principal); I88.9 Nonspecific lymphadenitis, unspecified
CPT/HCPCS: 36415; 80048; 80076; 83615; 85025; 85652; 93005

== ENCOUNTER → 2025-09-06 15:27 | Outpatient (BNV) | payer MEDICARE, OTHER, SELFPAY | PROVIDERS: PCP Internal Medicine; Visit Provider Internal Medicine Cardiovascular Disease | DX: R94.31 Abnormal electrocardiogram [ECG] [EKG] (principal); R07.89 Other chest pain | CPT/HCPCS: 93010 ==

== ENCOUNTER 2025-09-07 09:11 | Outpatient (AMB) | payer MEDICARE, OTHER, SELFPAY ==
--- NOTE | 2025-09-07 09:47 | MHC.OFFVIS ---
Intake Visit Reasons: 4m/ Memory changes, microvascular disease Allergies naproxen (From NAPROSYN) Allergy (Severe, Verified 09/05/25 13:51) sensitivity niacin (From NIASPAN EXTENDED-RELEASE) Allergy (Severe, Verified 09/05/25 13:51) Rash clarithromycin (From BIAXIN) Allergy (Mild, Verified 09/05/25 13:51) sensitivity codeine (CODEINE) Allergy (Mild, Verified 09/05/25 13:51) Itching esomeprazole (From Nexium) Allergy (Mild, Verified 09/05/25 13:51) Hives fluconazole (From DIFLUCAN) Allergy (Mild, Verified 09/05/25 13:51) sensitivity gatifloxacin (From TEQUIN) Allergy (Mild, Verified 09/05/25 13:51) sensitivity hydrocodone (From Vicodin) Allergy (Mild, Verified 09/05/25 13:51) Rash levofloxacin (From Levaquin) Allergy (Mild, Verified 09/05/25 13:51) sensitivity oxycodone (From Percocet) Allergy (Mild, Verified 09/05/25 13:51) Itching quinidine (QUINIDINE) Allergy (Mild, Verified 09/05/25 13:51) sensitivity Sulfa (Sulfonamide Antibiotics) (SULFA (SULFONAMIDE ANTIBIOTICS)) Allergy (Mild, Verified 09/05/25 13:51) Rash terfenadine (From SELDANE) Allergy (Mild, Verified 09/05/25 13:51) sensitivity tetracycline (TETRACYCLINE) Allergy (Mild, Verified 09/05/25 13:51) sensitivity amitriptyline Allergy (Unknown, Verified 09/05/25 13:51) Unknown cefaclor (From CECLOR) Adverse Reaction (Severe, Verified 09/05/25 13:51) Unknown abaloparatide (From Tymlos) Adverse Reaction (Intermediate, Verified 09/05/25 13:51) Dizziness bupropion (From Wellbutrin) Adverse Reaction (Intermediate, Verified 09/05/25 13:51) Nausea cefdinir Adverse Reaction (Intermediate, Verified 09/05/25 13:51) Stomach Upset montelukast (From Singulair) Adverse Reaction (Mild, Verified 09/05/25 13:51) Headache topiramate (From TOPAMAX) Adverse Reaction (Mild, Verified 09/05/25 13:51) Stomach Upset Medication List - Last Reconciled 09/07/25 by Mirta Sandoval MD acetaminophen 500 mg PO TID PRN 5 days atorvastatin 40 mg PO DAILY mttlaotugd-hljgkucurz-zhc-cod [id number] mg 1 cap PO Q4H PRN cholecalciferol (vitamin D3) TAKE 1 CAPSULE BY MOUTH DAILY docusate sodium (Colace) 100 mg PO DAILY Eliquis (apixaban) 5 mg PO BID 90 days NS escitalopram oxalate (Lexapro) 10 mg PO DAILY estradiol 0.01%(0.1mg/gram) (Estrace) pea size amount to urethra vaginally daily famotidine (Pepcid) 40 mg PO BEDTIME fluticasone furoate-vilanterol 200-25 mcg/dose (Breo Ellipta) 1 inh inhalation DAILY 30 days [Iberogast before or during meals] lidocaine 4% (Lidocaine Pain Relief) 1 patch See Protocol transdermal DAILY loratadine 10 mg PO DAILY PRN nebulizers As directed oxymetazoline (PF) 0.1% (Upneeq (PF)) 1 drp ophthalmic (eye) DAILY polyethylene glycol 3350 (Miralax) 17 grams PO DAILY 30 days sennosides-docusate sodium 8.6-50 mg (Senna with Docusate Sodium) 2 tab-caps (2 x 8.6-50 mg) PO BEDTIME 30 days Symbicort 80-4.5 mcg/actuation (budesonide-formoterol) 2 puffs inhalation BID NS tramadol 50 mg PO BID PRN 21 days NS Wellbutrin SR (bupropion HCl) 100 mg PO BEDTIME NS HPI Comments Details: Right subconjuctival hemorrhage resolved as expected . Occasional fleeting spots of scalp sensitivity with no local findings. I have followed for many years for Chronic left frontal and orbital pain . She still has some tenderness off and on in the right scalp. On rare occasions,?gets left eye pain. She reports some memory concerns, but her memory has been stable. Some forgetfulness with names that don't come to her as quick. Sleep was okay. In August 2021, she had a small acute stroke in the right cerebellum with speech impediment for a couple of hours and was given tPA and found to have PFO. Started Eliquis. She also has a lot of optical migraines. She had cervical fusion in February 2019. Has a lot of arthritis. H/O depression but intolerant to most antidepressants. She's had cardiac workup including cardiac catheter which was normal, pulmonary function tests which were normal, including vital capacity. Nerve conduction EMG study was normal. ? hyperventilation syndrome related to anxiety. She tells me that her oximeter shows almost 100% O2 saturation as well. She has chronic migraines and was on Botox injections in the past. She has had good response to the Botox. Had normal JAE on the left. She reports some blurred vision in the left eye from dry eye . Her BONNIE was borderline without significant xecf-he-psgu difference. 04/22/25 MRI brain: Diffuse T2 signal changes in subcortical white matter both cerebral hemispheres without mass effect or edema. Some of the lesions are perpendicular to lateral ventricle. 05/02/25 CT brain normal except for atrophy globally. 02/02/25 CTA of head and neck normal. Labs normal. 04/29/25 Waking EEG normal. [facility] Medical History (Updated 09/05/25 @ 21:26 by Eduardo Lino MD) Abdominal pain MCI (mild cognitive impairment) Migraine with aura, with intractable migraine, so stated, with status migrainosus Depression Hiatal hernia Anxiety and depression Neck pain Cervical disc disease Muscle tension headache Paresthesia of skin MCI (mild cognitive impairment) with memory loss Vertigo Myopathy Unspecified optic neuritis Memory change Mgrn w aura w intrc mgrn Sinusitis Stroke Migraine Carpal tunnel syndrome Hemiparesis Chest pain Sinus congestion Cough Weight loss Polyarthralgia Fall Shoulder pain, right Back pain Nausea Palpitation Headache, post-traumatic, acute Scalp irritation Anemia Encounter for vitamin deficiency screening Renal cyst Dense breast Breast cancer screening by mammogram Acute bronchitis Ocular migraine Hyperlipidemia History of CVA (cerebrovascular accident) (~2020) Tubular adenoma of colon (~2005) SERG (obstructive sleep apnea) Nasal vestibulitis Degeneration, intervertebral disc, cervical Dry eye PONV (postoperative nausea and vomiting) Arthritis of neck Cerebral microvascular disease Atherosclerotic cardiovascular disease Precordial chest pain URI (upper respiratory infection) Overactive bladder Microscopic hematuria Urinary urgency Osteoporosis (~1999) Mycobacterial disease GERD (gastroesophageal reflux disease) Pulmonary nodules COPD (chronic obstructive pulmonary disease) Surgical History History of fusion of cervical spine History of sinus surgery History of colonoscopy History of esophagogastroduodenoscopy (EGD) History of bladder suspension procedure Family History Son No problems noted. Social History Household Members: Spouse Housing: Condominium Do you presently have visiting nurse or other home services: No Alcohol intake: never Patient Tobacco Use Status: Never used Tobacco Tobacco use type: Cigarette Years Smoked: parent and smoker e-Cigarette/Vaping Use: Never Used Second Hand Smoke Exposure: Yes Advance Directives Date on File: 08/16/20 service: No Current occupational status: retired Current occupation: right hand Cognitive needs: No Hearing needs: Yes (hearing aides) Vision needs: Yes (Glasses) Review of Systems Const Details: General/Constitutional:? Change in appetitedenies.? Fatigueadmits.? Feverdenies.? Weight gaindenies.? Weight lossdenies. ???Sleep:? Difficulty getting to sleepdenies.? Difficulty maintaining sleepdenies?.? Daytime sleepinessdenies. ???Respiratory:? Shortness of breathadmits.? Chest paindenies. ???Cardiovascular:? Chest pain at restdenies.? Chest pain with exertiondenies.? Dizzinessdenies.? Fluid accumulation in the legsdenies.? Irregular heartbeatdenies.? Palpitationsdenies. ???Gastrointestinal:? Constipationadmits.? Diarrheadenies.? Difficulty swallowingdenies.? Heartburnadmits.? Nauseadenies. ???Genitourinary:? Frequent urinationdenies.? Urgencydenies.? Incontinencedenies. ???Musculoskeletal:? Neck painadmits.? Back paindenies.? Joint stiffnessdenies.? Sciaticadenies. ???Neurologic:? Difficulty swallowingdenies.? Balance difficultydenies.? Coordinationnormal.? Difficulty speakingdenies.? Dizzinessdenies.? Faintingdenies.? Gait abnormalitydenies.? Headacheadmits.? Loss of strengthdenies.? Loss of use of extremitydenies.? Low back paindenies.? Memory lossadmits.? Seizuresdenies.? Ticsdenies.? Tingling/Numbnessbilateral upper extremities.? Transient loss of visiondenies.? Tremordenies. ???Psychiatric:? Anxietyadmits.? Auditory/visual hallucinationsdenies.? Delusionsdenies.? Depressed mooddenies.? Stressorsdenies.? Suicidal thoughtsdenies. Physical Exam Neuro Other: Neurological: Abnormal neurological findings:??MMS 28/30.?Mental Status:??alert and oriented X 3,?Normal attention, orientation, memory and affect.?Cranial Nerves:??Pupils are equal, round and reactive to light. Fundoscopy shows normal disc bilaterally. External occular muscles are intact. Visual limon are full, no ptosis. Face is symmetrical, no facial weakness or droop. Facial sensations are normal. Tongue protrudes in midline. Palate elevates symmetrically. Shoulder shrugging is normal..?Motor Examination:??Normal muscle tone, bulk and strength,?No atrophy or fasciculations,?No drift of the extended upper extremities,?Deep tendon reflexes are 2+?,?Plantars are flexor?.?Straight Leg Raising:??90 degrees.?Sensory Exam:??Normal light touch, temperature, pinprick, vibration and joint-position sensations?,?Rhomberg sign is absent.?Coordination:??no ataxia,?no titubation,?elgebh-jp-cjdo, wior-rneo-ayua test and rapid alternating movements were normal.?Gait Exam:??Within normal limits.?Cerebellar Signs:??Wnszrk-nl-qlsc and dnmm-jg-xvgx is normal,?no dysdiadochokinesia?.?Extrapyramidal System:??No tremor, rigidity with normal facial expressions,?No bradykinesia, no bradyphrenia. Normal arm swing and posture. No propulsion or retropulsion.?Speech:??Normal,?no dysphasia or dysarthria..? Mini Mental Status Exam: Level of Consciousness:??Alert.?Orientation:??Knows correct year, month, date, day and season,?Knows correct city, county and state. Knows correct location and floor.?Registration:??Able to register 3 objects.?Attention:??Serial 7's performed accurately.?Recall:??Able to recall 3 out of 3 objects.?Language:??Normal spontaneous speech, fluency, repetition,naming, comprehension, reading and writing.? Assessment & Plan Assessment & Plan (1) Memory change: Code(s): R41.3 - Other amnesia Category: Medical (2) History of CVA (cerebrovascular accident): Onset Date: ~2020 Comment: (right cerebellar hemisphere infarct - tx tPA 08/03/2021) Code(s): Z86.73 - Personal history of transient ischemic attack (TIA), and cerebral infarction without residual deficits Category: Medical (3) Ocular migraine: Code(s): G43.109 - Migraine with aura, not intractable, without status migrainosus Category: Medical (4) Cerebral microvascular disease: Code(s): I67.89 - Other cerebrovascular disease Category: Medical (5) Degeneration, intervertebral disc, cervical: Code(s): M50.30 - Other cervical disc degeneration, unspecified cervical region Category: Medical (6) Generalized anxiety disorder: Code(s): F41.1 - Generalized anxiety disorder Category: Medical (7) Patent foramen ovale: Code(s): Q21.1 - Atrial septal defect Category: Medical Plan Her sedrate on 09/06/25 was 11. labs normal. Reviewed the MRI pictures with the patient. She has been reassured that she has no significant problem other than age-related atrophy and cerebral microvascular disease which was present even on MRIs 5 years ago with mild progression as expected. Her EEG is within normal limits. Coding Level of Care Code Est Pt Level 4 (76099) Diagnoses Memory change R41.3 History of CVA (cerebrovascular accident) Z86.73 Ocular migraine G43.109 Cerebral microvascular disease I67.89 Degeneration, intervertebral disc, cervical M50.30 Generalized anxiety disorder F41.1 Patent foramen ovale Q21.1
--- OUTSIDE RECORDS SUMMARY | 2025-09-07 09:58 | XMS_ITS | Clinical Summary ---
Author Organization [facility] Address [address] [facility] [address] [place] [address] Care Team Providers Care Camera Control Operator Name Role Phone Abby Potter MD Primary Care Provider Social History Tobacco Use Types Packs/Day [...] 11/17/2029 11/17/2019, 09/01/2009 Zoster Vaccines Completed 10/03/2020, 11/07/2020, 07/20/2020, Additional history exists Pneumococcal Vaccine: 50+ [...] topic Insurance MEDICARE PART A AND B [employer] Care Teams Camera Control Operator Relationship Specialty Start Date End Date Abby Potter MD [address] [place] [address] PCP - General 08/10/24
--- OUTSIDE RECORDS SUMMARY | 2025-09-07 09:59 | XMS_ITS | Encounter Summary ---
Author Organization [facility] Address [address] [place] [address] Care Team Providers Care Signal Processing Engineer Name Role Phone TariqMarleeelidia Marc Primary Care Provider [phone] Reason for Visit * Reason Onset Date Comments PAC Patient Request Call Back 06/08/2024 Encounter Details Date Type Department Care Team (Late st Contact Info) Description 06/08/2024 Telephone [facility] [address] [place] [address] Telephone Intake, Staff PAC Patient Request Call [...] for 9am. Patient can be reached at [phone]. Thank you - PAC documented in this encounter Plan of Treatment Upcoming Encounters Date Type Department Care Team (Late st Contact Info) Description 11/07/2025 9:30 AM EST Follow-Up [facility] [address] [place] [address] Uat Tester: Carlos Diop MD [address] [place] [address] 12/20/2025 9:00 AM EST Clinical Support [facility] [address] [place] [address] Uat Tester: Marlena Hurst documented as of this encounter Visit Diagnoses Not on filedocumented in this encounter Care Teams Signal Processing Engineer Relationship Specialty Start Date End Date Abby Potter [address] [place] [address] [place] [address] PCP - General Internal Medicine 04/14/24 documented as of this encounter
--- OUTSIDE RECORDS SUMMARY | 2025-09-07 09:59 | XMS_ITS | Clinical Summary ---
Author Organization [facility] Address [address] [place] [address] Phone Care Team Providers Care Station Operator Name Role Phone Vernon Mojica MD Primary [...] and muscle strengthening exercises. Follow closely with label tacker as scheduled Visit for monitoring Reclast therapy [...] Continue as prescribed. Close follow-up with treating/prescribing flame hardening machine operator Assessment & Plan (01/06/2020 1:22 PM EST): Continue as prescribed. Close follow-up with treating/prescribing flame hardening machine operator Assessment & Plan (03/31/2019 8:43 AM EDT): Continue as prescribed. Close follow-up with treating/prescribing flame hardening machine operator Primary osteoarthritis involving multiple joints 10/06/2017 [...] Formulation 11/10(Deferred: Other - , Ordered By: [id number]),08/03/2012 Pneumococcal conjugate PCV13 06/22/2015 Pneumococcal polysaccharide PPSV23 [...] bone mineral density since 2018. POS - [id number] Narrative 04/20/2019 9:11 AM EDT This is [...] at L3-4 and was calculated at 0.667 gm/lh6xswh a T-score of - 2.8 and Z-score of -0.8, falling within the WHOclassification of osteoporosis, representing an interval decline of 3.2%since 2018 which is not felt to be within the range of statisticalsignificance.. Total bone mineral density in the right hip was calculated at 0.675 gm/wo5utpq a T-score of -2.2 and Z-score of [...] hip bone mineral densitysince 2018. POS - [id number] us Johnna I Klich-Navneet MD IMG BD BONE DENSITY DEXA Final Result * (ABNORMAL) Historical Lab (02/23/2013 10:57 AM EDT) Thyroid Stimulating Hormone 0.09(Abno rmally L) 0.40 - 5.00 uU/ml [facility] 02/23/2013 10:5 7 AM EDT 02/23/2013 1:14 PM EDT Comment:BLOOD us Micheal Larsen MD LAB BLOOD ORDERABLES Final Result [address] [address] from Last 3 Months or Most Recently Relevant to Health Maintenance Insurance MEDICARE PART A & B [employer] MEDICARE ENHANCE SUPPLEMENT [facility] Address: [facility] [id number] [id number] MEDICARE PART A & B [facility] MEDICARE ENHANCE SUPPLEMENT MEDICARE PART A & B [facility] MEDICARE ENHANCE SUPPLEMENT MEDICARE PART A & B MEDICARE ENHANCE SUPPLEMENT MEDICARE PART A & B [id number] [place] [address] MEDICARE ENHANCE SUPPLEMENT MEDICARE PART A & B [facility] MEDICARE ENHANCE SUPPLEMENT MEDICARE PART A & B [facility] MEDICARE ENHANCE SUPPLEMENT MEDICARE PART A & B [facility] MEDICARE ENHANCE SUPPLEMENT MEDICARE PART A & B [facility] MEDICARE ENHANCE SUPPLEMENT MEDICARE PART A & B [facility] MEDICARE ENHANCE SUPPLEMENT Care Teams Station Operator Relationship Specialty Start Date End Date Vernon Mojica MD [address] [place] [address] NADIASAAD MURPHY [id number] PCP - General Internal Medicine 07/03/22 Additional Source Comments The information contained in this document represents components of the legal health record. It is not the complete legal health record.[facility]
--- OUTSIDE RECORDS SUMMARY | 2025-09-07 09:59 | XMS_ITS | Clinical Summary ---
Author Organization [facility] Address [address] [place] [address] Care Team Providers Care Corn Popper Name Role Phone TariqAbby Monico Primary Care Provider [phone] Allergies Active Allergy Reactions Criticality Noted Date [...] Type Department Care Team Description 07/07/2025 Telephone [facility] [address] [place] [address] Director Of Enterprise Strategy: Marlena Hurst Telephone Intake, Staff PAC Clinical Questions 06/15/2025 9:00 AM EDT Clinical Support [facility] [address] [place] [address] Director Of Enterprise Strategy: Rose Castle LPN Age-related osteoporosis without current [...] Info) Description 11/07/2025 9:30 AM EST Follow-Up [facility] [address] [place] [address] Director Of Enterprise Strategy: Carlos Diop MD [address] [place] [address] 12/20/2025 9:00 AM EST Clinical Support [facility] [address] [place] [address] Director Of Enterprise Strategy: Marlena Hurst Health Maintenance Due Date Last [...] Laterality Modality Other 10/31/2023 us Onbase Scan [facility] HEALTH MAINTENANCE Final Resu lt from Last 3 Months or Most Recently Relevant to Health Maintenance Insurance MEDICARE [facility] Care Teams Corn Popper Relationship Specialty Start Date End Date Abby Potter [address] [place] [address] [place] [address] PCP - General Internal Medicine 04/14/24
== END 2025-09-07 09:59 | disposition home or self-care (01) ==
LOC: HO.HSM 09:12
PROVIDERS: PCP Internal Medicine; Visit Provider Psychiatry & Neurology Neurology
DX: R41.3 Other amnesia (principal); Z86.73 Personal history of transient ischemic attack (TIA), and cerebral infarction without residual deficits; G43.109 Migraine with aura, not intractable, without status migrainosus; I67.89 Other cerebrovascular disease; M50.30 Other cervical disc degeneration, unspecified cervical region; F41.1 Generalized anxiety disorder; Q21.10 Atrial septal defect, unspecified
CPT/HCPCS: 99214

== ENCOUNTER → 2025-09-07 09:11 | Outpatient (BNVA) | payer MEDICARE, OTHER, SELFPAY | PROVIDERS: PCP Internal Medicine; Visit Provider Psychiatry & Neurology Neurology | DX: G43.109 Migraine with aura, not intractable, without status migrainosus (principal); R41.3 Other amnesia; F41.1 Generalized anxiety disorder; Z86.73 Personal history of transient ischemic attack (TIA), and cerebral infarction without residual deficits; Z79.01 Long term (current) use of anticoagulants; M50.30 Other cervical disc degeneration, unspecified cervical region; Q21.10 Atrial septal defect, unspecified | CPT/HCPCS: 99212 ==

== ENCOUNTER 2025-09-08 09:10 | Outpatient (REF) | payer MEDICARE, OTHER, SELFPAY ==
--- OUTSIDE RECORDS SUMMARY | 2025-09-08 10:15 | XMS_ITS | Clinical Summary ---
Author Organization [facility] Address [address] [facility] [address] [facility] [address] [place] [address] Care Team Providers Care Recorder Gravity Prospecting Name Role Phone Abby Potter MD Primary Care Provider [phone] Social History Tobacco Use Types Packs/Day Years Used Date Smoking Tobacco: Never Assessed Comments Unknown Sex and Gender Information Value Date Recorded Sex Assigned at Not on file Legal Sex Female 2:27 PM EDT Gender Identity Not on file Sexual Orientation Not on file Plan of Treatment Health Maintenance Due Date Last Done Comments Lipid Panel 1945 Depression Screening 11/03/2024 COVID-19 Vaccine ( season) 2025 08/05/2023, 10/21/2021, 01/01/2021, Additional history exists Influenza Vaccine (#1) 2025 , 07/24/2022, 08/01/2021, Additional history exists DTaP/Tdap/Td Vaccines (3 - Td or Tdap) 11/17/2029 11/17/2019, 09/01/2009 Bone Density Scan Completed 04/20/2019 Zoster Vaccines Completed 10/03/2020, 11/07/2020, 07/20/2020, Additional history exists Pneumococcal Vaccine: 50+ Years Completed 03/05/2024, 06/22/2015, 11/17/2013 HIB Vaccines Aged Out No longer eligi ble based on patient's age to complete this topic HPV Vaccines Aged Out No longer eligi ble based on patient's age to complete this topic Hepatitis A Vaccines Aged Out No long er eligible based on patient's age to complete this topic Hepatitis B Vaccines Aged Out No long [...] topic Insurance MEDICARE PART A AND B [facility] Care Teams Recorder Gravity Prospecting Relationship Specialty Start Date End Date Abby Potter MD [address] [place] [address] PCP - General 08/10/24
== END 2025-09-08 09:11 | disposition home or self-care (01) ==
LOC: HO.LAB 09:10
PROVIDERS: PCP Internal Medicine; Visit Provider Student in an Organized Health Care Education/Training Program
DX: N30.01 Acute cystitis with hematuria (principal); R30.0 Dysuria
CPT/HCPCS: 81003; 87086; 96127; 99212

== ENCOUNTER 2025-09-12 12:56 | Outpatient (REF) | payer MEDICARE, OTHER, SELFPAY ==
--- NOTE | ~2025-09-12 | US_ITS ---
EXAMINATION: US ABDOMEN COMPLETE CLINICAL INFORMATION: Abdominal pain. COMPARISON: Ultrasound kidneys 01/16/2024 TECHNIQUE: Real-time imaging of the abdominal viscera. FINDINGS: PANCREAS: There is anechoic cyst in the distal body of the pancreas measuring 1.2 x 0.7 x 1.2 cm it was not described on the previous ultrasound 01/02/2018. ABDOMINAL AORTA: The proximal, mid, and distal segments are normal in caliber. There is mild atherosclerosis INFERIOR VENA CAVA: Visualized portions are normal. LIVER: The liver is normal in size. The liver contour is normal. Parenchymal echogenicity is normal. There is anechoic cyst in the left hepatic lobe with septations measuring 2.2 x 1.1 x 2.0 cm. There is no intrahepatic biliary duct dilatation seen. GALLBLADDER: The gallbladder is physiologically distended without evidence of stones, sludge, polyps, wall thickening or pericholecystic fluid. Gallbladder wall thickness is 0.2 cm. COMMON BILE DUCT: Normal in caliber measuring 0.6 cm in diameter. RIGHT KIDNEY: No hydronephrosis. There are no echogenic stones. There is anechoic cyst mid pole laterally measuring 1.1 x 0.5 x 1.1 cm.. The kidney measures 9.3 cm in maximum dimension. LEFT KIDNEY: No hydronephrosis. No renal calculi or focal parenchymal lesions. The kidney measures 9.7 cm in maximum dimension. There is an anechoic cyst with peripheral calcification in lower pole measuring 0.7 0.6 x 0.8 cm. SPLEEN: The spleen measures 7.6 cm in maximum dimension. FREE FLUID: None. 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 No proximal or distal ductal dilatation seen. Recommend correlation with CT pancreatic protocol to rule out IPMN. Complex cyst left hepatic lobe. 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 Electronically signed by: Kelvin Patel MD 09/12/2025 03:39 PM EST
--- OUTSIDE RECORDS SUMMARY | 2025-09-12 14:59 | XMS_ITS | Encounter Summary ---
Author Organization [facility] Address [address] [place] [address] Care Team Providers Care Mathematics Instructor Name Role Phone TariqMarleeelidia Marc Primary Care Provider [phone] Reason for Visit * Reason Onset Date Comments PAC Patient Request Call Back 06/08/2024 Encounter Details Date Type Department Care Team (Late st Contact Info) Description 06/08/2024 Telephone [facility] Patient Access [facility] [address] [place] [address] Telephone Intake, Staff PAC Patient Request Call [...] for 9am. Patient can be reached at [phone]. Thank you - PAC documented in this encounter Plan of Treatment Upcoming Encounters Date Type Department Care Team (Late st Contact Info) Description 11/07/2025 9:30 AM EST Follow-Up [facility] [address] [place] [address] Bioinformatics Software Engineer: Carlos Diop MD [address] [place] [address] 12/20/2025 9:00 AM EST Clinical Support [facility] [address] [place] [address] Bioinformatics Software Engineer: Marlena Hurst documented as of this encounter Visit Diagnoses Not on filedocumented in this encounter Care Teams Mathematics Instructor Relationship Specialty Start Date End Date Abby Potter [address] [place] [address] [place] [address] PCP - General Internal Medicine 04/14/24 documented as of this encounter
--- OUTSIDE RECORDS SUMMARY | 2025-09-12 14:59 | XMS_ITS | Clinical Summary ---
Author Organization [facility] Address [address] [place] [address] Phone Care Team Providers Care Relay Operator Name Role Phone Vernon Mojica MD [...] and muscle strengthening exercises. Follow closely with heavy equipment operating engineer as scheduled Visit for monitoring Reclast [...] Continue as prescribed. Close follow-up with treating/prescribing mortuary beautician Assessment & Plan (01/06/2020 1:22 PM EST): Continue as prescribed. Close follow-up with treating/prescribing mortuary beautician Assessment & Plan (03/31/2019 8:43 AM EDT): Continue as prescribed. Close follow-up with treating/prescribing mortuary beautician Primary osteoarthritis involving multiple joints 10/06/2017 Assessment [...] Formulation 11/10(Deferred: Other - , Ordered By: [id number]),08/03/2012 Pneumococcal conjugate PCV13 06/22/2015 Pneumococcal polysaccharide PPSV23 [...] bone mineral density since 2018. POS - [id number] Narrative 04/20/2019 9:11 AM EDT This is [...] interval change from 2018. Procedure Note Jaguar Heni MD - 04/20/2019 This is a 73-year-old [...] at L3-4 and was calculated at 0.667 gm/uf5zpkw a T-score of - 2.8 and Z-score of -0.8, falling within the WHOclassification of osteoporosis, representing an interval decline of 3.2%since 2018 which is not felt to be within the range of statisticalsignificance.. Total bone mineral density in the right hip was calculated at 0.675 gm/so9dxfu a T-score of -2.2 and Z-score of [...] hip bone mineral densitysince 2018. POS - [id number] us Johnna I Klich-Navneet MD IMG BD BONE DENSITY DEXA Final Result * (ABNORMAL) Historical Lab (02/23/2013 10:57 AM EDT) Thyroid Stimulating Hormone 0.09(Abno rmally L) 0.40 - 5.00 uU/ml [facility] 02/23/2013 10:5 7 AM EDT 02/23/2013 1:14 PM EDT Comment:BLOOD us Micheal Larsen MD LAB BLOOD ORDERABLES Final Result [address] [address] from Last 3 Months or Most Recently Relevant to Health Maintenance Insurance MEDICARE PART A & B [employer] MEDICARE ENHANCE SUPPLEMENT [facility] Address: [facility] [id number] [address] [id number] MEDICARE PART A & B [facility] MEDICARE ENHANCE SUPPLEMENT MEDICARE PART A & B [facility] MEDICARE ENHANCE SUPPLEMENT MEDICARE PART A & B MEDICARE ENHANCE SUPPLEMENT MEDICARE PART A & B [id number] [place] [address] MEDICARE ENHANCE SUPPLEMENT MEDICARE PART A & B [facility] MEDICARE ENHANCE SUPPLEMENT MEDICARE PART A & B [facility] MEDICARE ENHANCE SUPPLEMENT MEDICARE PART A & B [facility] MEDICARE ENHANCE SUPPLEMENT MEDICARE PART A & B [facility] MEDICARE ENHANCE SUPPLEMENT MEDICARE PART A & B [facility] MEDICARE ENHANCE SUPPLEMENT Care Teams Relay Operator Relationship Specialty Start Date End Date Vernon Mojica MD [address] [place] [address] NADIASAAD MURPHY [phone] PCP - General Internal Medicine 07/03/22 Additional Source Comments The information contained in this document represents components of the legal health record. It is not the complete legal health record.[facility]
--- OUTSIDE RECORDS SUMMARY | 2025-09-12 14:59 | XMS_ITS | Clinical Summary ---
Author Organization [facility] Address [address] [place] [address] Care Team Providers Care Yard Person Name Role Phone TariqAbby Monico Primary Care Provider [phone] Allergies Active Allergy Reactions Criticality Noted Date [...] Type Department Care Team Description 07/07/2025 Telephone [facility] [address] [place] [address] Power Manager: Marlena Hurst Telephone Intake, Staff PAC Clinical Questions 06/15/2025 9:00 AM EDT Clinical Support [facility] [address] [place] [address] Power Manager: Rose Castle LPN Age-related osteoporosis without current [...] Info) Description 11/07/2025 9:30 AM EST Follow-Up [facility] [address] [place] [phone] Power Manager: Carlos Diop MD [address] [place] [address] 12/20/2025 9:00 AM EST Clinical Support [facility] [address] [place] [address] Power Manager: Marlena Hurst Health Maintenance Due Date Last [...] complete this topic Procedures * Due to [place] state law, this organization might not be sharing negative HIV tests. Procedure Name Priority Date/Time Associated Diagnosis Comments HM DEXA SCAN 10/31/2023 from Last 3 Months or Most Recently Relevant to Health Maintenance Results * Due to [place] state law, this organization might not be sharing negative HIV tests. * HM Dexa Scan (10/31/2023) Anatomical Region Laterality Modality Other 10/31/2023 us Onbase Scan [facility] HEALTH MAINTENANCE Final Resu lt from Last 3 Months or Most Recently Relevant to Health Maintenance Insurance MEDICARE [facility] Care Teams Yard Person Relationship Specialty Start Date End Date Abby Potter [address] [place] [address] [place] [address] PCP - General Internal Medicine 04/14/24
== END 2025-09-12 12:57 | disposition home or self-care (01) ==
LOC: HO.US 12:56
PROVIDERS: PCP Internal Medicine; Visit Provider Hospitalist
DX: R10.9 Unspecified abdominal pain (principal)
CPT/HCPCS: 76700

== ENCOUNTER → 2025-09-12 12:57 | Outpatient (BNV) | payer MEDICARE, OTHER, SELFPAY | PROVIDERS: PCP Internal Medicine; Visit Provider Radiology Diagnostic Radiology | DX: R10.9 Unspecified abdominal pain (principal) | CPT/HCPCS: 76700 ==

== ENCOUNTER 2025-09-13 08:38 | Outpatient (AMB) | payer MEDICARE, OTHER, SELFPAY ==
--- OUTSIDE RECORDS SUMMARY | 2025-09-13 08:48 | XMS_ITS | Clinical Summary ---
Author Organization [facility] Address [address] [place] [address] Care Team Providers Care Mobile Architect Name Role Phone TariqAbby Monico Primary Care [...] Type Department Care Team Description 07/07/2025 Telephone [facility] [address] [place] [address] Oracle Architect: Marlena Hurst Telephone Intake, Staff PAC Clinical Questions 06/15/2025 9:00 AM EDT Clinical Support [facility] [address] [place] [address] Oracle Architect: Rose Castle LPN Age-related osteoporosis without current [...] Info) Description 11/07/2025 9:30 AM EST Follow-Up [facility] [address] [place] [address] Oracle Architect: Carlos Diop MD [address] [place] [address] 12/20/2025 9:00 AM EST Clinical Support [facility] [address] [place] [address] Oracle Architect: Marlena Hurst Health Maintenance Due Date Last [...] Laterality Modality Other 10/31/2023 us Onbase Scan [facility] HEALTH MAINTENANCE Final Resu lt from Last 3 Months or Most Recently Relevant to Health Maintenance Insurance MEDICARE [facility] Care Teams Mobile Architect Relationship Specialty Start Date End Date Abby Potter [address] [place] [address] [place] [address] PCP - General Internal Medicine 04/14/24
--- OUTSIDE RECORDS SUMMARY | 2025-09-13 08:48 | XMS_ITS | Encounter Summary ---
Author Organization [facility] Address [address] [place] [address] Care Team Providers Care Electric Locomotive Crane Operator Name Role Phone TariqMarleeelidia Marc Primary Care Provider [phone] Reason for Visit * Reason Onset Date Comments PAC Patient Request Call Back 06/08/2024 Encounter Details Date Type Department Care Team (Late st Contact Info) Description 06/08/2024 Telephone [facility] Patient Access [facility] [address] [place] [address] Telephone Intake, Staff PAC Patient Request Call [...] for 9am. Patient can be reached at [phone]. Thank you - PAC documented in this encounter Plan of Treatment Upcoming Encounters Date Type Department Care Team (Late st Contact Info) Description 11/07/2025 9:30 AM EST Follow-Up [facility] [address] [place] [address] Doctor Of Medicine: Carlos Diop MD [address] [place] [address] 12/20/2025 9:00 AM EST Clinical Support [facility] [address] [place] [address] Doctor Of Medicine: Marlena Hurst documented as of this encounter Visit Diagnoses Not on filedocumented in this encounter Care Teams Electric Locomotive Crane Operator Relationship Specialty Start Date End Date Abby Potter [address] [place] [address] [place] [address] PCP - General Internal Medicine 04/14/24 documented as of this encounter
--- OUTSIDE RECORDS SUMMARY | 2025-09-13 08:48 | XMS_ITS | Clinical Summary ---
Author Organization [facility] Address [address] [place] [address] Phone Care Team Providers Care Transfer And Line Up Worker Name Role Phone Vernon Mojica MD Primary [...] and muscle strengthening exercises. Follow closely with latin teacher as scheduled Visit for monitoring Reclast therapy [...] Continue as prescribed. Close follow-up with treating/prescribing printed circuit board reworker Assessment & Plan (01/06/2020 1:22 PM EST): Continue as prescribed. Close follow-up with treating/prescribing printed circuit board reworker Assessment & Plan (03/31/2019 8:43 AM EDT): Continue as prescribed. Close follow-up with treating/prescribing printed circuit board reworker Primary osteoarthritis involving multiple joints 10/06/2017 Assessment [...] Formulation 11/10(Deferred: Other - , Ordered By: [id number]),08/03/2012 Pneumococcal conjugate PCV13 06/22/2015 Pneumococcal polysaccharide PPSV23 [...] bone mineral density since 2018. POS - [id number] Narrative 04/20/2019 9:11 AM EDT This is [...] at L3-4 and was calculated at 0.667 gm/av6ftcu a T-score of - 2.8 and Z-score of -0.8, falling within the WHOclassification of osteoporosis, representing an interval decline of 3.2%since 2018 which is not felt to be within the range of statisticalsignificance.. Total bone mineral density in the right hip was calculated at 0.675 gm/mk0ymrq a T-score of -2.2 and Z-score of [...] hip bone mineral densitysince 2018. POS - [id number] us Johnna I Klich-Navneet MD IMG BD BONE DENSITY DEXA Final Result * (ABNORMAL) Historical Lab (02/23/2013 10:57 AM EDT) Thyroid Stimulating Hormone 0.09(Abno rmally L) 0.40 - 5.00 uU/ml [facility] 02/23/2013 10:5 7 AM EDT 02/23/2013 1:14 PM EDT Comment:BLOOD us Micheal Larsen MD LAB BLOOD ORDERABLES Final Result [address] [id number] from Last 3 Months or Most Recently Relevant to Health Maintenance Insurance MEDICARE PART A & B [employer] MEDICARE ENHANCE SUPPLEMENT [facility] Address: [facility] [id number] [id number] MEDICARE PART A & B [facility] MEDICARE ENHANCE SUPPLEMENT MEDICARE PART A & B [facility] MEDICARE ENHANCE SUPPLEMENT MEDICARE PART A & B MEDICARE ENHANCE SUPPLEMENT MEDICARE PART A & B [id number] [place] [address] MEDICARE ENHANCE SUPPLEMENT MEDICARE PART A & B [facility] MEDICARE ENHANCE SUPPLEMENT MEDICARE PART A & B [facility] MEDICARE ENHANCE SUPPLEMENT MEDICARE PART A & B [facility] MEDICARE ENHANCE SUPPLEMENT MEDICARE PART A & B [facility] MEDICARE ENHANCE SUPPLEMENT MEDICARE PART A & B [facility] MEDICARE ENHANCE SUPPLEMENT Care Teams Transfer And Line Up Worker Relationship Specialty Start Date End Date Vernon Mojica MD [address] [place] [address] NADIASAAD MURPHY [phone] PCP - General Internal Medicine 07/03/22 Additional Source Comments The information contained in this document represents components of the legal health record. It is not the complete legal health record.[facility]
[2025-09-13 09:03] VITALS: BP 114/76; PULSE 85; TEMP 36.1; O2SAT 97; BMI 21.9
--- NOTE | 2025-09-13 09:03 | A.OFFPC_ITS ---
Vital Signs 09/13/25 09:03 Height 5 ft Weight 112 lb 6 oz BMI 21.9 BP 114/76 Blood Pressure Location Lt brachial Position Sitting Pulse 85 Pulse Source Pulse Oximeter Temp 97.0 F Temp Source Temporal Artery Scan Pulse Oximetry (%) 97 Oxygen Delivery Method Room Air Intake Visit Reasons: copd Allergies naproxen (From NAPROSYN) Allergy (Severe, Verified 09/13/25 13:48) sensitivity niacin (From NIASPAN EXTENDED-RELEASE) Allergy (Severe, Verified 09/13/25 13:48) Rash clarithromycin (From BIAXIN) Allergy (Mild, Verified 09/13/25 13:48) sensitivity codeine (CODEINE) Allergy (Mild, Verified 09/13/25 13:48) Itching esomeprazole (From Nexium) Allergy (Mild, Verified 09/13/25 13:48) Hives fluconazole (From DIFLUCAN) Allergy (Mild, Verified 09/13/25 13:48) sensitivity gatifloxacin (From TEQUIN) Allergy (Mild, Verified 09/13/25 13:48) sensitivity hydrocodone (From Vicodin) Allergy (Mild, Verified 09/13/25 13:48) Rash levofloxacin (From Levaquin) Allergy (Mild, Verified 09/13/25 13:48) sensitivity oxycodone (From Percocet) Allergy (Mild, Verified 09/13/25 13:48) Itching quinidine (QUINIDINE) Allergy (Mild, Verified 09/13/25 13:48) sensitivity Sulfa (Sulfonamide Antibiotics) (SULFA (SULFONAMIDE ANTIBIOTICS)) Allergy (Mild, Verified 09/13/25 13:48) Rash terfenadine (From SELDANE) Allergy (Mild, Verified 09/13/25 13:48) sensitivity tetracycline (TETRACYCLINE) Allergy (Mild, Verified 09/13/25 13:48) sensitivity amitriptyline Allergy (Unknown, Verified 09/13/25 13:48) Unknown cefaclor (From CECLOR) Adverse Reaction (Severe, Verified 09/13/25 13:48) Unknown abaloparatide (From Tymlos) Adverse Reaction (Intermediate, Verified 09/13/25 13:48) Dizziness bupropion (From Wellbutrin) Adverse Reaction (Intermediate, Verified 09/13/25 13:48) Nausea cefdinir Adverse Reaction (Intermediate, Verified 09/13/25 13:48) Stomach Upset montelukast (From Singulair) Adverse Reaction (Mild, Verified 09/13/25 13:48) Headache topiramate (From TOPAMAX) Adverse Reaction (Mild, Verified 09/13/25 13:48) Stomach Upset Tobacco use date assessed: 09/13/25 Fall risk assessment: 2 + Falls in past year Last assessed Fall Risk: 09/13/25 Dental Screening Dental Screen Date: 09/13/25 Did you have a dental visit in the last 12 months?: Yes Did you have a dental problem in the last 6 months where you did not have access to dental care?: No Was dental information given to patient?: Patient has dentist [facility] Medical History (Updated 09/13/25 @ 09:44 by Abby Potter MD) Palpitation Abdominal pain MCI (mild cognitive impairment) Migraine with aura, with intractable migraine, so stated, with status migrainosus Depression Hiatal hernia Anxiety and depression Neck pain Cervical disc disease Muscle tension headache Paresthesia of skin MCI (mild cognitive impairment) with memory loss Vertigo Myopathy Unspecified optic neuritis Memory change Mgrn w aura w intrc mgrn Sinusitis Stroke Migraine Carpal tunnel syndrome Hemiparesis Chest pain Sinus congestion Cough Weight loss Polyarthralgia Fall Shoulder pain, right Back pain Nausea Headache, post-traumatic, acute Scalp irritation Anemia Encounter for vitamin deficiency screening Renal cyst Dense breast Breast cancer screening by mammogram Acute bronchitis Ocular migraine Hyperlipidemia History of CVA (cerebrovascular accident) (~2020) Tubular adenoma of colon (~2005) SERG (obstructive sleep apnea) Nasal vestibulitis Degeneration, intervertebral disc, cervical Dry eye PONV (postoperative nausea and vomiting) Arthritis of neck Cerebral microvascular disease Atherosclerotic cardiovascular disease Precordial chest pain URI (upper respiratory infection) Overactive bladder Microscopic hematuria Urinary urgency Osteoporosis (~1999) Mycobacterial disease GERD (gastroesophageal reflux disease) Pulmonary nodules COPD (chronic obstructive pulmonary disease) Surgical History History of fusion of cervical spine History of sinus surgery History of colonoscopy History of esophagogastroduodenoscopy (EGD) History of bladder suspension procedure Family History Son No problems noted. Social History Household Members: Spouse Housing: Condominium Do you presently have visiting nurse or other home services: No Alcohol intake: never Patient Tobacco Use Status: Never used Tobacco Tobacco use type: Cigarette Years Smoked: parent and smoker e-Cigarette/Vaping Use: Never Used Second Hand Smoke Exposure: Yes Advance Directives Date on File: 08/16/20 service: No Current occupational status: retired Current occupation: right hand Cognitive needs: No Hearing needs: Yes (hearing aides) Vision needs: Yes (Glasses) Questionnaire PHQ-9 Over the last 2 weeks, how often have you been bothered by any of the following problems? 1. Little interest or pleasure in doing things: more than half the days 2. Feeling down, depressed, or hopeless: several days 3. Trouble falling or staying asleep, or sleeping too much: not at all 4. Feeling tired or having little energy: more than half the days 5. Poor appetite or overeating: not at all 6. Feeling bad about yourself - or that you are a failure or have let yourself or your family down: not at all 7. Trouble concentrating on things, such as reading the newspaper or watching television: more than half the days 8. Moving or speaking so slowly that other people could have noticed. Or the opposite - being so fidgety or restless that you have been moving around a lot more than usual: not at all 9. Thoughts that you would be better off or of hurting yourself in some way: not at all Total score: 7 Depression Screening Interpretation: Positive Depression Screening Done: Yes Source: Developed by Drs. Augie Espinoza, Yue Griffin, Michael Gallo and colleagues, with an educational aniya from [employer]. Thrive Questionnaire Date Thrive assessed: 03/29/25 I am a: Patient What is your living situation today?: I have a steady place to live Within the past 12 months, did the food you bought not last and you didn't have the money to get more?: Never true Within the past 12 months, did you worry whether your food would run out before you got money to buy more?: Never true Do you have trouble paying for medicines?: No Do you have trouble getting transportation to medical appointments?: No Do you have trouble paying your heating and electricity bill?: No Do you have trouble taking care of your child, family member or friend?: No Do you have trouble with day-to-day activities such as bathing, preparing meals, shopping, managing finances, etc.?: No Are you currently unemployed and looking for a job?: No Are you interested in more education?: No Please select the resources that you would like help with: None Currently or been in a relationship where the following occur: No concerns reported THRIVE Score: 0 AUDIT C Alcohol Use Questionnaire (AUDIT-C) 1. How often do you have a drink containing alcohol?: Never 3. How often do you have six or more drinks on one occasion?: Never Total Score: 0 SAVANNAH-7 AMB Questionnaire SAVANNAH-7 Date SAVANNAH - 7 assessed: 03/29/25 Feeling nervous, anxious, or on edge: 1 = Several days Not being able to stop or control worryin = Several days Worrying too much about different things: 1 = Several days Trouble relaxin = Several days Being so restless that it is hard to sit still: 0 = Not at all Becoming easily annoyed or irritable: 2 = More than half the days Feeling afraid as if something awful might happen: 2 = More than half the days Total SAVANNAH-7 score (0-4 normal; 5-9 mild; 10-14 moderate; 15-21 severe): 8 Source: Developed by Drs. Augie Espinoza, Yue Griffin, Michael Gallo and colleagues, with an educational aniya from [employer]. Physical exam (Primary Care) Vital Signs: Last Vital Signs Temp 97.0 F 09/13/25 09:03 Pulse 85 09/13/25 09:03 BP 114/76 09/13/25 09:03 Pulse Ox 97 09/13/25 09:03 Oxygen Delivery Method Room Air 09/13/25 09:03 BMI result Body Mass Index 21.9 Tobacco/Smoking Status: Tobacco use Status Tobacco use date assessed 09/13/25 09/13/25 09:04 Patient Tobacco Use Status Never used Tobacco 09/13/25 09:04 Tobacco use type Cigarette 09/13/25 09:04 e-Cigarette/Vaping Use Never Used 09/13/25 09:04 PHQ-9: PHQ-9 Score PHQ-9: Total score 7 09/13/25 10:06 Depression Screening Interpretation: Positive Thrive Assessment: Date of Thrive Assessment Date Thrive assessed 03/29/25 09/13/25 09:04 Currently or been in a relationship where the following occur: No concerns reported Const General: alert; No acute distress Eyes Conjunctivae: conjunctivae normal Resp Auscultation: clear to auscultation bilaterally Cardio Rate: regular rate Rhythm: regular rhythm GI Inspection: Yes normal to inspection Extrem General: Yes normal to inspection and No edema Office Procedures Flu Questionnaire Does the patient have a severe egg allergy?: No Does the patient have severe life threatening allergies?: No Does the patient have a fever or illness today?: No Has the patient ever had Guillain-[place] Syndrome?: No Has the patient ever had any past reaction to a flu shot?: No Immunizations Fluarix [id number] (PF) 45 mcg (15 mcg x 3)/0.5 mL IM syringe Performing Provider: Abby Potter MD [facility] [place] [facility] Administered by: Carri Cisneros CMA on 09/13/25 10:06 Dose Route Admin Location Dispensed Lot Number Expiration Date [employer] Online [employer]iliate Marketing Manager 0.5 mL IM Left Deltoid 0.5 mL [id number] 05/02/26 [id number] [employer] VIS Given Date VIS Provided VIS Publication Date 09/13/25 Single Vaccine 24 Eligibility Eligibility Date Funding Source Not [place] Eligible 09/13/25 Private Coding Level of Care Code Est Pt Level 4 (67585) Complex EM visit Add On G2211 Diagnoses Hyperlipidemia E78.5 Age-related osteoporosis without current pathological fracture M81.0 Osteoporosis type: age-related Presence of current pathological fracture: without current pathological fracture Gastroesophageal reflux disease with esophagitis without hemorrhage K21.00 Esophagitis bleeding: without hemorrhage Esophagitis presence: with esophagitis History of CVA (cerebrovascular accident) Z86.73 Simple chronic bronchitis J41.0 COPD type: chronic bronchitis Chronic bronchitis type: simple Generalized anxiety disorder F41.1 Pancreatic cyst K86.2 Liver cyst K76.89 Palpitation R00.2 Assessment & Plan Assessment & Plan (1) Hyperlipidemia: Code(s): E78.5 - Hyperlipidemia, unspecified Category: Medical Plan: Avoid fried foods, chicken skin, eggs, butter margarine, pastries and meat. Be it pork or beef they have a lot of cholesterol LDL goal of less than 70 and triglyceride of less than 150 on atorvastatin 40 mg once a day February 2025 last blood work (2) Osteoporosis: Onset Date: ~1999 Comment: Diagnosed prior to 2018 DEXA 04/2019 osteoporosis T score-2.9 left hip, L-spine T-score -2.8 Received Reclast: 12/23/2018, 01/21/2020, 01/20/2021. DEXA 09/22/2021 with T-score of-3.2 left femoral neck Prolia 01/20/2022- present after dental clearance Wrist fracture 01/23 DEXA 10/2023 osteoporosis T-score left femoral neck-4.5, left hip total -3.9, L- spine -0.9 Tymlos 03/2024 DC after 4 doses due to dizziness, room spinning, passing out Code(s): M81.0 - Age-related osteoporosis without current pathological fracture Category: Medical Qualifiers: Osteoporosis type: age-related Presence of current pathological fracture: without current pathological fracture Qualified Code(s): M81.0 - Age- related osteoporosis without current pathological fracture Plan: Continue with calcium and vitamin-D and discussed about repeating the bone density (3) GERD (gastroesophageal reflux disease): Code(s): K21.9 - Gastro-esophageal reflux disease without esophagitis Category: Medical Qualifiers: Esophagitis bleeding: without hemorrhage Esophagitis presence: with esophagitis Qualified Code(s): K21.00 - Gastro-esophageal reflux disease with esophagitis, without bleeding Plan: Avoid the foods that causes that usually spicy foods, tomato products, juices, coffee, soda and foods that your sensitive to. After eating do not lie down, allow 3-4 hours before in lie down. And keep the head of bed above 30 degrees to avoid the acid from going up. (4) History of CVA (cerebrovascular accident): Onset Date: ~2020 Comment: (right cerebellar hemisphere infarct - tx tPA 08/03/2021) Code(s): Z86.73 - Personal history of transient ischemic attack (TIA), and cerebral infarction without residual deficits Category: Medical Plan: Patient on anticoagulation with Eliquis continue with renal function monitoring (5) COPD (chronic obstructive pulmonary disease): Code(s): J44.9 - Chronic obstructive pulmonary disease, unspecified Category: Medical Qualifiers: COPD type: chronic bronchitis Chronic bronchitis type: simple Qualif ied Code(s): J41.0 - Simple chronic bronchitis Plan: Patient has been seeing Pulmonary and was started on Breo and albuterol. (6) Generalized anxiety disorder: Code(s): F41.1 - Generalized anxiety disorder Category: Medical Plan: Continue with present medication on Lexapro 10 mg once a day Wellbutrin 100 mg once a day (7) Pancreatic cyst: Code(s): K86.2 - Cyst of pancreas Category: Medical (8) Liver cyst: Code(s): K76.89 - Other specified diseases of liver Category: Medical (9) Palpitation: Code(s): R00.2 - Palpitations Category: Medical Plan History of Present Illness The patient is a 79-year-old female presenting for a follow-up visit for management of multiple chronic medical problems. Her medical history is significant for cervical degenerative disc disease, osteoporosis with the last bone density scan in October 2023, GERD, obstructive sleep apnea, and COPD. Neurologically, she has a history of a right cerebellar infarct status post TPA in November 2020, a patent foramen ovale, ocular migraines, and generalized anxiety disorder. She has also been seen by neurology for memory changes, with imaging showing periventricular and subcortical microvascular disease and age- related atrophy. An abdominal ultrasound in September revealed a cyst in the distal body of the pancreas, a complex cyst in the left lobe of the liver, and a right kidney cyst. The patient also had a urinary tract infection on September 08, which was treated with Macrobid. Her last blood work in February showed very mild anemia, normal electrolytes and renal function, a blood sugar of 103 mg/dL, normal thyroid function, and an LDL of 47 mg/dL. An ECG showed a normal result with nonspecific ST-T wave changes. For her COPD, she was seen by pulmonology and was previously on Onbrize, which she did not like, and is now on Symbicort. Health Maintenance The patient will receive an influenza vaccine today. Continue calcium and vitamin D supplementation. Will discuss repeating the bone density scan at a future visit. The gastroenterology referral will also address the need for foll ow-up colon cancer screening, as her last colonoscopy was in 2019. Social History - Diet: Reports eating Cheerios with peaches and an Serbian muffin for breakfast, sometimes from [employer]. Review of Systems - Cardiovascular: Reports intermittent palpitations, described as a soreness, occurring more in the morning. - Denies chest pain or dizziness. - Gastrointestinal: Reports constipation and indigestion. Physical Exam - Abdomen: Spleen is not enlarged on palpation. Results - Abdominal Ultrasound (September): Showed a cyst in the distal body of the pancreas, a complex cyst in the left lobe of the liver, and a right kidney cyst. - Bloodwork (February): Revealed mild anemia, normal electrolytes, normal renal function, blood sugar of 103 mg/dL, and an LDL of 47 mg/dL. - Bloodwork (February): Thyroid test was normal. - ECG: Normal with non-specific ST-T wave changes. - X-ray of Lumbar Spine: Showed moderate spondylosis. - Bone Density (October 2023): Confirmed osteoporosis. Plan Patient was informed and verbally consented to the use of an ambient scribe for clinic note documentation during this visit. 1. Pancreatic, Liver, And Renal Cysts The patient has incidental findings of cysts in the pancreas, liver, and kidney on a recent ultrasound. While the renal cyst is not concerning, the pancreatic and liver cysts require further evaluation. A CT scan of the pancreas with pancreatic protocol will be ordered. A referral will be placed to gastroenterology (Dr. Braga) for further management. 2. Palpitations The patient reports new intermittent palpitations. A Holter monitor will be ordered for three days to investigate. The patient has been instructed on the importance of keeping a detailed log of symptoms to correlate with the Holter findings. If the Holter monitor is inconclusive, a referral to cardiology for a longer-term event monitor will be considered. 3. Constipation The patient reports ongoing constipation. A prescription for her laxative will be refilled for a year, with instructions to take one or two tablets at night as needed. 4. Indigestion/Gastroesophageal Reflux Disease (Gerd) The patient reports issues with indigestion, particularly in the mornings. Lifestyle modifications were advised, including not lying down after eating and elevating the head of the bed. She has an existing prescription for Pepcid which she can use as needed, and was advised to discuss these symptoms with the film crew member. 5. Hypercholesterolemia Her LDL is 47 mg/dL with a goal of less than 70 mg/dL. She will continue atorva statin 80 mg. 6. History Of Cva On Anticoagulation The patient will continue anticoagulation with Eliquis. Will continue to monitor her renal function. 7. Chronic Obstructive Pulmonary Disease (Copd) The patient is on Symbicort for COPD and was reminded to rinse her mouth after use. Discussion Notes I reviewed the patient's recent abdominal ultrasound findings, which showed cysts in her pancreas, liver, and kidney. I explained that while kidney cysts are generally benign, the pancreatic and liver cysts warrant further investigation. I recommended a CT scan of the pancreas and a referral to her film crew member, Dr. Braga, for further evaluation, to which she agreed. We discussed her new symptom of palpitations. I explained that we would order a 3-day Holter monitor and emphasized the importance of her logging the date and time of any symptoms to ensure the test is useful. We also discussed management for her constipation and indigestion, providing medication refills and lifestyle advice. We discussed preventative care, and she agreed to receive her influenza vaccine during the visit. Patient Instructions - We will order a special CT scan of your pancreas to get a better look at the cyst that was found on your recent ultrasound. - We are also sending a referral for you to see the stomach specialist, Dr. Braga, to help manage the cysts in your pancreas and liver. - To check on your heart palpitations, you will wear a heart monitor called a Holter monitor for three days. - It is very important to write down the exact time you feel any palpitations or other symptoms so we can match it to the heart recording. - We have sent a refill for your constipation medicine to your pharmacy. - You can take one or two pills at night as needed. - For your indigestion, try to avoid lying down right after you eat and consider propping your head up with extra pillows when you do lie down. - You can also try taking Pepcid as needed. - You will get your flu shot today in the office. - Continue taking all of your current medications as prescribed, including your medications for cholesterol, blood pressure, and your blood thinner. - Continue taking Calcium and Vitamin D for your bone health. Orders: Orders Blood Urea Nitrogen Today K86.2 - Cyst of pancreas Creatinine Today K86.2 - Cyst of pancreas CT abdomen pelvis w IV con Today K86.2 - Cyst of pancreas ECG 3 day holter monitor Today R00.2 - Palpitations Influenza [id number] Immunization Today Z23 - Encounter for immunization Referrals Gastroenterology Referral K86.2 - Cyst of pancreas Medications: Refilled sennosides-docusate sodium 8.6-50 mg (Senna with Docusate Sodium) 2 tab-caps (2 x 8.6-50 mg) PO BEDTIME 60 tabs 12RF 30 days K59.00 - Constipation, unspecified famotidine (Pepcid) 40 mg PO BEDTIME 30 tabs 5RF R00.2 - Palpitations
== END 2025-09-13 10:27 | disposition home or self-care (01) ==
LOC: HO.HMCH 08:38
PROVIDERS: PCP Internal Medicine; Visit Provider Internal Medicine
DX: E78.5 Hyperlipidemia, unspecified (principal); M81.0 Age-related osteoporosis without current pathological fracture; K21.00 Gastro-esophageal reflux disease with esophagitis, without bleeding; Z86.73 Personal history of transient ischemic attack (TIA), and cerebral infarction without residual deficits; J41.0 Simple chronic bronchitis; F41.1 Generalized anxiety disorder; K86.2 Cyst of pancreas; K76.89 Other specified diseases of liver; R00.2 Palpitations; Z23 Encounter for immunization

== ENCOUNTER → 2025-09-13 08:38 | Outpatient (BNVA) | payer MEDICARE, OTHER, SELFPAY | PROVIDERS: PCP Internal Medicine; Visit Provider Internal Medicine | DX: Z71.2 Person consulting for explanation of examination or test findings (principal); R07.89 Other chest pain; R00.2 Palpitations; Q21.10 Atrial septal defect, unspecified; Z86.73 Personal history of transient ischemic attack (TIA), and cerebral infarction without residual deficits; Z23 Encounter for immunization; E78.5 Hyperlipidemia, unspecified; M81.0 Age-related osteoporosis without current pathological fracture; K21.00 Gastro-esophageal reflux disease with esophagitis, without bleeding; J41.0 Simple chronic bronchitis; F41.1 Generalized anxiety disorder; K86.2 Cyst of pancreas; K76.89 Other specified diseases of liver | CPT/HCPCS: 90471; 90656; 99212 ==

== ENCOUNTER 2025-09-13 13:42 | Outpatient (AMB) | payer MEDICARE, OTHER, SELFPAY ==
--- NOTE | 2025-09-13 13:45 | MHC.OFFVIS ---
Vital Signs 09/13/25 13:46 Height 5 ft Weight 111 lb 15.917 oz BMI 21.9 BP 138/72 Blood Pressure Location Lt brachial Position Sitting Pulse 85 Pulse Source Pulse Oximeter Intake Visit Reasons: f/u ekg changes c/o chest pain Allergies naproxen (From NAPROSYN) Allergy (Severe, Verified 09/13/25 13:48) sensitivity niacin (From NIASPAN EXTENDED-RELEASE) Allergy (Severe, Verified 09/13/25 13:48) Rash clarithromycin (From BIAXIN) Allergy (Mild, Verified 09/13/25 13:48) sensitivity codeine (CODEINE) Allergy (Mild, Verified 09/13/25 13:48) Itching esomeprazole (From Nexium) Allergy (Mild, Verified 09/13/25 13:48) Hives fluconazole (From DIFLUCAN) Allergy (Mild, Verified 09/13/25 13:48) sensitivity gatifloxacin (From TEQUIN) Allergy (Mild, Verified 09/13/25 13:48) sensitivity hydrocodone (From Vicodin) Allergy (Mild, Verified 09/13/25 13:48) Rash levofloxacin (From Levaquin) Allergy (Mild, Verified 09/13/25 13:48) sensitivity oxycodone (From Percocet) Allergy (Mild, Verified 09/13/25 13:48) Itching quinidine (QUINIDINE) Allergy (Mild, Verified 09/13/25 13:48) sensitivity Sulfa (Sulfonamide Antibiotics) (SULFA (SULFONAMIDE ANTIBIOTICS)) Allergy (Mild, Verified 09/13/25 13:48) Rash terfenadine (From SELDANE) Allergy (Mild, Verified 09/13/25 13:48) sensitivity tetracycline (TETRACYCLINE) Allergy (Mild, Verified 09/13/25 13:48) sensitivity amitriptyline Allergy (Unknown, Verified 09/13/25 13:48) Unknown cefaclor (From CECLOR) Adverse Reaction (Severe, Verified 09/13/25 13:48) Unknown abaloparatide (From Tymlos) Adverse Reaction (Intermediate, Verified 09/13/25 13:48) Dizziness bupropion (From Wellbutrin) Adverse Reaction (Intermediate, Verified 09/13/25 13:48) Nausea cefdinir Adverse Reaction (Intermediate, Verified 09/13/25 13:48) Stomach Upset montelukast (From Singulair) Adverse Reaction (Mild, Verified 09/13/25 13:48) Headache topiramate (From TOPAMAX) Adverse Reaction (Mild, Verified 09/13/25 13:48) Stomach Upset Medication List - Last Reconciled 09/13/25 by PRUDENCE Ramires acetaminophen 500 mg PO TID PRN 5 days atorvastatin 40 mg PO DAILY qsivqkfvfh-ruvhkxdtmn-ukp-cod [id number] mg 1 cap PO Q4H PRN cholecalciferol (vitamin D3) TAKE 1 CAPSULE BY MOUTH DAILY docusate sodium (Colace) 100 mg PO DAILY Eliquis (apixaban) 5 mg PO BID 90 days NS escitalopram oxalate (Lexapro) 10 mg PO DAILY estradiol 0.01%(0.1mg/gram) (Estrace) pea size amount to urethra vaginally daily famotidine (Pepcid) 40 mg PO BEDTIME fluticasone propion-salmeterol 115-21 mcg/actuation (Advair HFA) 2 puffs inhalation Q12H 30 days [Iberogast before or during meals] lidocaine 4% (Lidocaine Pain Relief) 1 patch See Protocol transdermal DAILY loratadine 10 mg PO DAILY PRN nebulizers As directed oxymetazoline (PF) 0.1% (Upneeq (PF)) 1 drp ophthalmic (eye) DAILY polyethylene glycol 3350 (Miralax) 17 grams PO DAILY 30 days sennosides-docusate sodium 8.6-50 mg (Senna with Docusate Sodium) 2 tab-caps (2 x 8.6-50 mg) PO BEDTIME 30 days Symbicort 80-4.5 mcg/actuation (budesonide-formoterol) 2 puffs inhalation BID NS tramadol 50 mg PO BID PRN 21 days NS HPI HPI f/u ekg changes c/o chest pain: Details: The patient is a 79-year-old female presenting with cardiovascular concerns, including irregular heartbeat and chest discomfort. She has a history of sleep apnea, COPD, GERD, CVA, and PFO, and is on anticoagulation therapy. Today she presents for her appointment 3 hours and 45 minutes late. She tells me she has been getting irregular heartbeats occurring most days, mostly in the morning. She does not notice it much as the day goes on. No new lightheadedness, presyncope, syncope. She does have unsteadiness with walking at times and describes 1 recent fall while trying to change clothes in a dressing room. She sustained a minor injury to her left wrist and neck. She is complaining of discomfort below her left breast and left back near her scapula. She says this has been intermittent and unchanged in the last year. The areas are tender to palpation. She describes increased soreness if she lays on her left side. Informed her this is noncardiac pain and most likely musculoskeletal/ chest wall. No other chest discomfort brought on by walking or stair climbing. She admits to some shortness of breath with stair climbing. Otherwise breathing is normal with no PND, orthopnea or edema. No bleeding issues reported. She takes all her meds as directed. Lives with her and dog. [facility] Medical History (Updated 09/13/25 @ 09:44 by Abby Potter MD) Palpitation Abdominal pain MCI (mild cognitive impairment) Migraine with aura, with intractable migraine, so stated, with status migrainosus Depression Hiatal hernia Anxiety and depression Neck pain Cervical disc disease Muscle tension headache Paresthesia of skin MCI (mild cognitive impairment) with memory loss Vertigo Myopathy Unspecified optic neuritis Memory change Mgrn w aura w intrc mgrn Sinusitis Stroke Migraine Carpal tunnel syndrome Hemiparesis Chest pain Sinus congestion Cough Weight loss Polyarthralgia Fall Shoulder pain, right Back pain Nausea Headache, post-traumatic, acute Scalp irritation Anemia Encounter for vitamin deficiency screening Renal cyst Dense breast Breast cancer screening by mammogram Acute bronchitis Ocular migraine Hyperlipidemia History of CVA (cerebrovascular accident) (~2020) Tubular adenoma of colon (~2005) SERG (obstructive sleep apnea) Nasal vestibulitis Degeneration, intervertebral disc, cervical Dry eye PONV (postoperative nausea and vomiting) Arthritis of neck Cerebral microvascular disease Atherosclerotic cardiovascular disease Precordial chest pain URI (upper respiratory infection) Overactive bladder Microscopic hematuria Urinary urgency Osteoporosis (~1999) Mycobacterial disease GERD (gastroesophageal reflux disease) Pulmonary nodules COPD (chronic obstructive pulmonary disease) Surgical History History of fusion of cervical spine History of sinus surgery History of colonoscopy History of esophagogastroduodenoscopy (EGD) History of bladder suspension procedure Family History Son No problems noted. Social History Household Members: Spouse Housing: Condominium Do you presently have visiting nurse or other home services: No Alcohol intake: never Patient Tobacco Use Status: Never used Tobacco Tobacco use type: Cigarette Years Smoked: parent and smoker e-Cigarette/Vaping Use: Never Used Second Hand Smoke Exposure: Yes Advance Directives Date on File: 08/16/20 service: No Current occupational status: retired Current occupation: right hand Cognitive needs: No Hearing needs: Yes (hearing aides) Vision needs: Yes (Glasses) Review of Systems Const All systems reviewed & are unremarkable except as noted in HPI and below ENT Denies dizziness Card Details: reports irregular heart beating, mostly in the mornings. Reports chest pain (tenderness to palp of chest wall near left scapula and left lower rib edge), Denies chest pain at rest, Denies chest pain with activity, Denies rapid heart rate, Denies pedal edema, Denies edema, Denies leg edema, Denies lightheadedness, Reports palpitations, Denies dyspnea, Denies dyspnea on exertion and Denies orthopnea Resp Denies cough, Denies dyspnea and Denies dyspnea on exertion GI Denies hematochezia and Denies change in stool character Musc Denies abnormal gait, Denies limited range of motion, Denies muscle cramps, Denies muscle weakness, Denies numbness, Denies radiating pain into limb, Denies stiffness and Denies tingling Neuro Denies abnormal gait, Denies dizziness, Denies numbness and Denies tingling Endo Reports palpitations Physical Exam Vital Signs: Last Vital Signs Pulse 85 09/13/25 13:46 BP 138/72 09/13/25 13:46 BMI result Body Mass Index 21.9 Const General: cooperative, healthy appearing, comfortable and no acute distress Orientation/consciousness: patient oriented x3 Neck Neck: Yes normal visual inspection Chest Other: Yells out and grimaces with firm palpation of chest wall around left scapular region and left anterior rib edge Resp Effort & Inspection: normal respiratory effort Auscultation: clear to auscultation bilaterally, no crackles, no rales, no rhonchi and no wheezes Cardio Rate: regular rate Rhythm: regular rhythm Heart sounds: S1 normal heart sound present, S2 normal heart sound present, no gallops, no murmurs and no rubs Neuro General: patient oriented x3 Extrem General: Yes normal to inspection Psych Appearance: grossly normal Mental Status: mental status grossly normal Speech and movement: Normal speech and movement present Results Reviewed Results Reviewed: - Coronary CTA (2017): Focal plaque in mid LAD, mild calcific plaque in RCA origin - Nuclear stress test (2019): No reversible defects, exercise capacity 4.6 METs, 82% max predicted heart rate - Holter monitor (): Sinus rhythm, average heart rate 68 bpm, occasional PACs - EKG (09/06/2025): Sinus rhythm, nonspecific ST and T wave abnormalities, rate 66 bpm - EKG (02/28/2025): Sinus rhythm, ST and T wave abnormalities suggesting anterior ischemia, rate 64 bpm - Echocardiogram 12/24/2023 EF 55-60%, impaired relaxation, mild MR - Transesophageal echocardiogram 09/14/2021 PFO with intermittent pgbue-ct-bgow shunting Assessment & Plan Assessment & Plan (1) Chest pain: Code(s): R07.9 - Chest pain, unspecified Category: Medical Qualifiers: Chest pain type: other chest pain Qualified Code(s): R07.89 - Other chest pain Plan: Atypical chest discomfort. Prior cardiac testing suggesting only mild nonobstructive CAD. EKGs reviewed and chronically show T-wave abnormalities anteriorly. Current discomfort is most likely musculoskeletal as it is easily reproducible with firm palpation. Continue with risk factor modification including atorvastatin with ideal LDL goal less than 70. She is not on aspirin as she is on Eliquis. Blood pressure is controlled. (2) Palpitation: Code(s): R00.2 - Palpitations Category: Medical Plan: Reports of irregular heartbeat causing her concern. Prior Holter did show PACs. Most recent echo shows normal EF and both atria normal size. Will check Holter monitor to assess for arrhythmia.( already ordered by PCP) Instructed on reduction in caffeinated beverages. (3) Patent foramen ovale: Code(s): Q21.1 - Atrial septal defect Category: Medical Plan: History of PFO, small, confirmed on prior MALA. (4) History of CVA (cerebrovascular accident): Onset Date: ~2020 Comment: (right cerebellar hemisphere infarct - tx tPA 08/03/2021) Code(s): Z86.73 - Personal history of transient ischemic attack (TIA), and cerebral infarction without residual deficits Category: Medical Plan: History of CVA. She is now on full anticoagulation with Eliquis. Plan I discussed with the patient that the irregular heartbeat will be further evaluated with a Holter monitor to determine any abnormal beats. We talked about the chest discomfort, which is likely musculoskeletal, and I recommended stretching exercises to alleviate the soreness. The patient was advised to avoid activities that could worsen her neck and wrist pain and to continue using supportive measures. Patient Instructions: - Schedule and complete the Holter monitor test as instructed. - Perform stretching exercises to help with chest discomfort. - Avoid activities that may worsen neck and wrist pain. Patient was informed and verbally consented to the use of an ambient scribe for clinic note documentation during this visit. Visit time spent on chart review, interview, assessment, orders, documentation. Coding Level of Care Code Est Pt Level 4 (66269) Complex EM visit Add On G2211 Diagnoses Other chest pain R07.89 Chest pain type: other chest pain Palpitation R00.2 Patent foramen ovale Q21.1 History of CVA (cerebrovascular accident) Z86.73 Time Spent (min) 36
[2025-09-13 13:46] VITALS: BP 138/72; PULSE 85; BMI 21.9
== END 2025-09-13 14:24 | disposition home or self-care (01) ==
LOC: HO.HCS 13:42
PROVIDERS: PCP Internal Medicine; Visit Provider Nurse Practitioner Family
DX: R07.89 Other chest pain (principal); R00.2 Palpitations; Q21.10 Atrial septal defect, unspecified; Z86.73 Personal history of transient ischemic attack (TIA), and cerebral infarction without residual deficits
CPT/HCPCS: 99214; G2211

== ENCOUNTER 2025-09-16 11:31 | Outpatient (AMB) | payer MEDICARE, OTHER, SELFPAY ==
--- NOTE | 2025-09-16 11:34 | MHC.OFFVIS ---
Vital Signs 09/16/25 11:48 Height 5 ft Weight 111 lb BMI 21.7 BP 144/64 H Blood Pressure Location Lt brachial Position Sitting Pulse 76 Pulse Source Pulse Oximeter Pulse Oximetry (%) 94 Oxygen Delivery Method Room Air Intake Visit Reasons: okay per zeus Intake Note: Last colo [address] Braga - noted that he does not recommend any further colo screenings per hx of limited findings most recently. New pt for initial eval of pancreatic cyst. Hx of GERD, CIC, and liver cysts also noted. CC: C.O. LUQ lump/mass palpable by pt, w/ associated LUQ pain. She reports that she had an US which confirmed the presence of a cyst. She also reports having GERD sx intermittently which is treated by famotidine w/o complication. She does report having a hx of constipation which she states is adequately controlled with current therapies. Director Of [facility] Required: No Accompanied by: Spouse Allergies naproxen (From NAPROSYN) Allergy (Severe, Verified 09/16/25 11:34) sensitivity niacin (From NIASPAN EXTENDED-RELEASE) Allergy (Severe, Verified 09/16/25 11:34) Rash clarithromycin (From BIAXIN) Allergy (Mild, Verified 09/16/25 11:34) sensitivity codeine (CODEINE) Allergy (Mild, Verified 09/16/25 11:34) Itching esomeprazole (From Nexium) Allergy (Mild, Verified 09/16/25 11:34) Hives fluconazole (From DIFLUCAN) Allergy (Mild, Verified 09/16/25 11:34) sensitivity gatifloxacin (From TEQUIN) Allergy (Mild, Verified 09/16/25 11:34) sensitivity hydrocodone (From Vicodin) Allergy (Mild, Verified 09/16/25 11:34) Rash levofloxacin (From Levaquin) Allergy (Mild, Verified 09/16/25 11:34) sensitivity oxycodone (From Percocet) Allergy (Mild, Verified 09/16/25 11:34) Itching quinidine (QUINIDINE) Allergy (Mild, Verified 09/16/25 11:34) sensitivity Sulfa (Sulfonamide Antibiotics) (SULFA (SULFONAMIDE ANTIBIOTICS)) Allergy (Mild, Verified 09/16/25 11:34) Rash terfenadine (From SELDANE) Allergy (Mild, Verified 09/16/25 11:34) sensitivity tetracycline (TETRACYCLINE) Allergy (Mild, Verified 09/16/25 11:34) sensitivity amitriptyline Allergy (Unknown, Verified 09/16/25 11:34) Unknown cefaclor (From CECLOR) Adverse Reaction (Severe, Verified 09/16/25 11:34) Unknown abaloparatide (From Tymlos) Adverse Reaction (Intermediate, Verified 09/16/25 11:34) Dizziness bupropion (From Wellbutrin) Adverse Reaction (Intermediate, Verified 09/16/25 11:34) Nausea cefdinir Adverse Reaction (Intermediate, Verified 09/16/25 11:34) Stomach Upset montelukast (From Singulair) Adverse Reaction (Mild, Verified 09/16/25 11:34) Headache topiramate (From TOPAMAX) Adverse Reaction (Mild, Verified 09/16/25 11:34) Stomach Upset HPI Comments Details: This is a 79-year-old female with past medical history of nonobstructive coronary disease, 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 Patient's main complaint are epigastric discomfort that occasionally radiates to her back x 6 months. Associated with increased belching. More pronounced when she hasnt eaten anything for a few hours. Does not report any decrease in appetite, nausea, vomiting. No unintentional weight loss. No previous history of AIP. No history of alcohol use disorder tobacco use disorder. No family history of pancreatic cancer. Pt had reported this to her securities compliance examiner earlier this month that prompted an US Abd: PANCREAS: There is anechoic cyst in the distal body of the pancreas measuring 1.2 x 0.7 x 1.2 cm it was not described on the previous ultrasound 01/02/2018. LIVER: The liver is normal in size. The liver contour is normal. Parenchymal echogenicity is normal. There is anechoic cyst in the left hepatic lobe with septations measuring 2.2 x 1.1 x 2.0 cm. There is no intrahepatic biliary duct dilatation seen. In addition, pt also reports occasional reflux for which she is on famotidine. As well as constipation, reports sometimes can go without a BM x3-4 days unless she is taking stool softener. Despite that passes small moses, frequent straining. Bloating +. [facility] Medical History Palpitation Abdominal pain MCI (mild cognitive impairment) Migraine with aura, with intractable migraine, so stated, with status migrainosus Depression Hiatal hernia Anxiety and depression Neck pain Cervical disc disease Muscle tension headache Paresthesia of skin MCI (mild cognitive impairment) with memory loss Vertigo Myopathy Unspecified optic neuritis Memory change Mgrn w aura w intrc mgrn Sinusitis Stroke Migraine Carpal tunnel syndrome Hemiparesis Chest pain Sinus congestion Cough Weight loss Polyarthralgia Fall Shoulder pain, right Back pain Nausea Headache, post-traumatic, acute Scalp irritation Anemia Encounter for vitamin deficiency screening Renal cyst Dense breast Breast cancer screening by mammogram Acute bronchitis Ocular migraine Hyperlipidemia History of CVA (cerebrovascular accident) (~2020) Tubular adenoma of colon (~2005) SERG (obstructive sleep apnea) Nasal vestibulitis Degeneration, intervertebral disc, cervical Dry eye PONV (postoperative nausea and vomiting) Arthritis of neck Cerebral microvascular disease Atherosclerotic cardiovascular disease Precordial chest pain URI (upper respiratory infection) Overactive bladder Microscopic hematuria Urinary urgency Osteoporosis (~1999) Mycobacterial disease GERD (gastroesophageal reflux disease) Pulmonary nodules COPD (chronic obstructive pulmonary disease) Surgical History History of fusion of cervical spine History of sinus surgery History of colonoscopy History of esophagogastroduodenoscopy (EGD) History of bladder suspension procedure Family History Son No problems noted. Social History Household Members: Spouse Housing: Condominium Do you presently have visiting nurse or other home services: No Alcohol intake: never Patient Tobacco Use Status: Never used Tobacco Tobacco use type: Cigarette Years Smoked: parent and smoker e-Cigarette/Vaping Use: Never Used Second Hand Smoke Exposure: Yes Advance Directives Date on File: 08/16/20 service: No Current occupational status: retired Current occupation: right hand Cognitive needs: No Hearing needs: Yes (hearing aides) Vision needs: Yes (Glasses) Review of Systems Const All systems reviewed & are unremarkable except as noted in HPI and below Physical Exam Exam Exam: Elderly female NAD Nonicteric abd soft, nontender, nondistended no lower extremity edema Vital Signs: Last Vital Signs Pulse 76 09/16/25 11:48 BP 144/64 H 09/16/25 11:48 Pulse Ox 94 09/16/25 11:48 Oxygen Delivery Method Room Air 09/16/25 11:48 BMI result Body Mass Index 21.7 Assessment & Plan Assessment & Plan (1) Pancreatic cyst: Code(s): K86.2 - Cyst of pancreas Category: Medical (2) Liver cyst: Code(s): K76.89 - Other specified diseases of liver Category: Medical (3) GERD (gastroesophageal reflux disease): Code(s): K21.9 - Gastro-esophageal reflux disease without esophagitis Category: Medical Qualifiers: Esophagitis presence: with esophagitis Esophagitis bleeding: without hemorrhage Qualified Code(s): K21.00 - Gastro-esophageal reflux disease with esophagitis, without bleeding (4) Chronic idiopathic constipation: Code(s): K59.04 - Chronic idiopathic constipation Category: Medical Plan 1.Panc cyst 2. Hepatic cyst Reviewed with the pt that would recommend MRI panc protocol to further characterize the panc cyst - benign vs precancerous nighat as this is a new finding compared to prev abd imaging. MRI will also allow us to eval the L liver lobe cyst. Plan: - MRI abd with and without contrast 2. GERD Currently on famotidine. No alarm symptoms. Plan: - No change in mgmt for now. 3. CIC: Again, longstanding issue. Notes from [facility] (Dr Braga reviewed). Plan: - Add osmotic laxative such as miralax once daily - can be titrated to effect Follow up 6 weeks to review MRI results Orders: Orders MR abdomen wo/w con Today K86.2 - Cyst of pancreas Patient Instructions: An MRI has been ordered to further evaluate the pancreatic and liver cyst. Cont to take the pepcid (famotidine). Add Miralax once daily, can decrease it to every other day for goal 3-4 soft bowel movements per week. Coding Level of Care Code New Pt Level 4 (14149) Complex EM visit Add On G2211 Diagnoses Pancreatic cyst K86.2 Liver cyst K76.89 Gastroesophageal reflux disease with esophagitis without hemorrhage K21.00 Esophagitis presence: with esophagitis Esophagitis bleeding: without hemorrhage Chronic idiopathic constipation K59.04
[2025-09-16 11:48] VITALS: BP 144/64; PULSE 76; O2SAT 94; BMI 21.7
--- OUTSIDE RECORDS SUMMARY | 2025-09-16 17:45 | XMS_ITS | Clinical Summary ---
Author Organization [facility] Address [address] [place] [id number] Phone Care Team Providers Care Manager Statistical Name Role Phone Vernon Mojica MD Primary [...] and muscle strengthening exercises. Follow closely with clinical operations leader as scheduled Visit for monitoring Reclast therapy [...] Continue as prescribed. Close follow-up with treating/prescribing pilot boat operator Assessment & Plan (01/06/2020 1:22 PM EST): Continue as prescribed. Close follow-up with treating/prescribing pilot boat operator Assessment & Plan (03/31/2019 8:43 AM EDT): Continue as prescribed. Close follow-up with treating/prescribing pilot boat operator Primary osteoarthritis involving multiple joints 10/06/2017 [...] Formulation 11/10(Deferred: Other - , Ordered By: [id number]),08/03/2012 Pneumococcal conjugate PCV13 06/22/2015 Pneumococcal polysaccharide PPSV23 [...] patient's age to complete this topic IPV VACCINES Aged Out No longer eligi ble [...] bone mineral density since 2018. POS - [id number] Narrative 04/20/2019 9:11 AM EDT This is [...] at L3-4 and was calculated at 0.667 gm/wa8hhno a T-score of - 2.8 and Z-score of -0.8, falling within the WHOclassification of osteoporosis, representing an interval decline of 3.2%since 2018 which is not felt to be within the range of statisticalsignificance.. Total bone mineral density in the right hip was calculated at 0.675 gm/eg9hvmt a T-score of -2.2 and Z-score of [...] hip bone mineral densitysince 2018. POS - [id number] us Johnna Serna MD IMG BD BONE DENSITY DEXA Final Result * (ABNORMAL) Historical Lab (02/23/2013 10:57 AM EDT) Thyroid Stimulating Hormone 0.09(Abno rmally L) 0.40 - 5.00 uU/ml [facility] 02/23/2013 10:5 7 AM EDT 02/23/2013 1:14 PM EDT Comment:BLOOD us Micheal Larsen MD LAB BLOOD ORDERABLES Final Result [address] [id number] from Last 3 Months or Most Recently Relevant to Health Maintenance Insurance MEDICARE PART A & B [facility] MEDICARE ENHANCE SUPPLEMENT MEDICARE PART A & B [facility] MEDICARE ENHANCE SUPPLEMENT MEDICARE PART A & B [facility] MEDICARE ENHANCE SUPPLEMENT MEDICARE PART A & [place] [address] [place] [address] MEDICARE ENHANCE SUPPLEMENT MEDICARE PART A & B [facility] MEDICARE ENHANCE SUPPLEMENT MEDICARE PART A & B Member Subscriber Plan / Payer (Ef fective 2012-) Name:Timmy Tavarez Member ID:[id number] Relation to Subscriber:Self Name:Timmy Tavarez Subscriber ID:[id number] Payer ID:[id number] Group ID:Not on file Type:Medicare Address: [address] [facility] [address] [address] [facility] MEDICARE ENHANCE SUPPLEMENT MEDICARE PART A & B [facility] MEDICARE ENHANCE SUPPLEMENT MEDICARE PART A & B [facility] MEDICARE ENHANCE SUPPLEMENT MEDICARE PART A & B [facility] MEDICARE ENHANCE SUPPLEMENT MEDICARE PART A & B [facility] MEDICARE ENHANCE SUPPLEMENT Care Teams Manager Statistical Relationship Specialty Start Date End Date Vernon Mojica MD [address] [place] [id number] PCP - General Internal Medicine 07/03/22 Additional Source Comments The information contained in this document represents components of the legal health record. It is not the complete legal health record.[facility]
== END 2025-09-16 12:26 | disposition home or self-care (01) ==
LOC: HO.HGI 11:32
PROVIDERS: PCP Internal Medicine; Visit Provider Internal Medicine
DX: K86.2 Cyst of pancreas (principal); K76.89 Other specified diseases of liver; K21.00 Gastro-esophageal reflux disease with esophagitis, without bleeding; K59.04 Chronic idiopathic constipation
CPT/HCPCS: 99204; G2211

== ENCOUNTER → 2025-09-16 11:31 | Outpatient (BNVA) | payer MEDICARE, OTHER, SELFPAY | PROVIDERS: PCP Internal Medicine; Visit Provider Internal Medicine | DX: R19.02 Left upper quadrant abdominal swelling, mass and lump (principal); K21.00 Gastro-esophageal reflux disease with esophagitis, without bleeding; K86.2 Cyst of pancreas; K76.89 Other specified diseases of liver; K59.04 Chronic idiopathic constipation | CPT/HCPCS: 99202 ==

== ENCOUNTER → 2025-09-19 08:06 | Outpatient (REF) | payer MEDICARE, OTHER, SELFPAY ==
--- NOTE | 2025-09-19 08:10 | HM_ITS ---
* Total monitoring time 3 days. * Underlying rhythm is sinus with an average rate of 78/Min. * Rare supraventricular ectopy. * Rare ventricular ectopy. Two brief runs. Longest 8 beats. Monomorphic. * No significant pauses or high-grade AV blocks. * No patient markers or diary events. MTDD
== END ==
LOC: HO.CARD 08:06
PROVIDERS: Visit Provider Internal Medicine
DX: R00.2 Palpitations (principal)
CPT/HCPCS: 93242

== ENCOUNTER → 2025-09-19 08:10 | Outpatient (BNV) | payer MEDICARE, OTHER, SELFPAY | PROVIDERS: Visit Provider Internal Medicine | DX: I49.3 Ventricular premature depolarization (principal); I49.49 Other premature depolarization | CPT/HCPCS: 93244 ==

== ENCOUNTER 2025-09-21 08:20 | Outpatient (AMB) | payer MEDICARE, OTHER, SELFPAY ==
--- NOTE | 2025-09-21 08:35 | A.OFFVIS_ITS ---
Intake Visit Reasons: 6 month f/u Allergies naproxen (From NAPROSYN) Allergy (Severe, Verified 09/21/25 08:44) sensitivity niacin (From NIASPAN EXTENDED-RELEASE) Allergy (Severe, Verified 09/21/25 08:44) Rash clarithromycin (From BIAXIN) Allergy (Mild, Verified 09/21/25 08:44) sensitivity codeine (CODEINE) Allergy (Mild, Verified 09/21/25 08:44) Itching esomeprazole (From Nexium) Allergy (Mild, Verified 09/21/25 08:44) Hives fluconazole (From DIFLUCAN) Allergy (Mild, Verified 09/21/25 08:44) sensitivity gatifloxacin (From TEQUIN) Allergy (Mild, Verified 09/21/25 08:44) sensitivity hydrocodone (From Vicodin) Allergy (Mild, Verified 09/21/25 08:44) Rash levofloxacin (From Levaquin) Allergy (Mild, Verified 09/21/25 08:44) sensitivity oxycodone (From Percocet) Allergy (Mild, Verified 09/21/25 08:44) Itching quinidine (QUINIDINE) Allergy (Mild, Verified 09/21/25 08:44) sensitivity Sulfa (Sulfonamide Antibiotics) (SULFA (SULFONAMIDE ANTIBIOTICS)) Allergy (Mild, Verified 09/21/25 08:44) Rash terfenadine (From SELDANE) Allergy (Mild, Verified 09/21/25 08:44) sensitivity tetracycline (TETRACYCLINE) Allergy (Mild, Verified 09/21/25 08:44) sensitivity amitriptyline Allergy (Unknown, Verified 09/21/25 08:44) Unknown cefaclor (From CECLOR) Adverse Reaction (Severe, Verified 09/21/25 08:44) Unknown abaloparatide (From Tymlos) Adverse Reaction (Intermediate, Verified 09/21/25 08:44) Dizziness bupropion (From Wellbutrin) Adverse Reaction (Intermediate, Verified 09/21/25 08:44) Nausea cefdinir Adverse Reaction (Intermediate, Verified 09/21/25 08:44) Stomach Upset montelukast (From Singulair) Adverse Reaction (Mild, Verified 09/21/25 08:44) Headache topiramate (From TOPAMAX) Adverse Reaction (Mild, Verified 09/21/25 08:44) Stomach Upset Medication List - Last Reconciled 09/21/25 by Catrina Santana CNP acetaminophen 500 mg PO TID PRN 5 days atorvastatin 40 mg PO DAILY benzonatate 200 mg PO BID-TID PRN gashcjpxlk-zyinnloscr-hqn-cod [id number] mg 1 cap PO Q4H PRN cholecalciferol (vitamin D3) TAKE 1 CAPSULE BY MOUTH DAILY docusate sodium (Colace) 100 mg PO DAILY Eliquis (apixaban) 5 mg PO BID 90 days NS escitalopram oxalate (Lexapro) 10 mg PO DAILY estradiol 0.01%(0.1mg/gram) (Estrace) pea size amount to urethra vaginally daily famotidine (Pepcid) 40 mg PO BEDTIME fluticasone propion-salmeterol 115-21 mcg/actuation (Advair HFA) 2 puffs inhalation Q12H 30 days [Iberogast before or during meals] lidocaine 4% (Lidocaine Pain Relief) 1 patch See Protocol transdermal DAILY loratadine 10 mg PO DAILY PRN nebulizers As directed oxymetazoline (PF) 0.1% (Upneeq (PF)) 1 drp ophthalmic (eye) DAILY polyethylene glycol 3350 (Miralax) 17 grams PO DAILY 30 days sennosides-docusate sodium 8.6-50 mg (Senna with Docusate Sodium) 2 tab-caps (2 x 8.6-50 mg) PO BEDTIME 30 days Symbicort 80-4.5 mcg/actuation (budesonide-formoterol) 2 puffs inhalation BID NS tramadol 50 mg PO BID PRN 21 days NS HPI Comments Details: She was doing okay. No significant headaches. She feels memory has been stable. She was living with her , and she says she does everything, including shopping and managing finances without issue. Her was mostly driving. She went to [employer] to meet with friends almost every day. No falls. She had holter monitor for palpitations and was undergoing further work up for finding of pancreatic cyst. Sleep was okay. Previously, was getting some tenderness off and on in the right scalp. On rare occassions,?gets left eye pain. Some forgetfulness and names don't come quick. Chronic left frontal and orbital pain is better. In early August 2021, she had a small stroke in right cerebellum with speech impediment for a couple of hours and was given tPA and found to have PFO. Started Eliquis. Had a lot of optical migraines also. Occasional sharp pains/ spasms in left frontalis and eye, occasionally on the right. She had cervical fusion in February 2019. Has a lot of arthritis. MRI brain showed a tiny right cerebellar acute infarct. H/O depression but intolerant to most antidepressants. She's had cardiac workup including cardiac catheter which was normal, pulmonary function tests which were normal, including vital capacity. Nerve conduction EMG study was normal. ? hyperventilation syndrome related to anxiety. She tells me that her oximeter shows almost 100% O2 saturation as well. She has chronic migraines and was on Botox injections in the past. She has had good response to the Botox. She has had a couple of what she calls optical migraines . No recurrence. Had normal JAE on the left. She reports some blurred vision in the left eye from dry eye . Her BONNIE was borderline without significant cxfh-cn-emsm difference. [facility] Medical History (Updated 09/21/25 @ 08:53 by Catrina Santana CNP) Palpitation Abdominal pain MCI (mild cognitive impairment) Migraine with aura, with intractable migraine, so stated, with status migrainosus Depression Hiatal hernia Anxiety and depression Neck pain Cervical disc disease Muscle tension headache Paresthesia of skin MCI (mild cognitive impairment) with memory loss Vertigo Myopathy Unspecified optic neuritis Memory change Mgrn w aura w intrc mgrn Sinusitis Stroke Migraine Carpal tunnel syndrome Hemiparesis Chest pain Sinus congestion Cough Weight loss Polyarthralgia Fall Shoulder pain, right Back pain Nausea Headache, post-traumatic, acute Scalp irritation Anemia Encounter for vitamin deficiency screening Renal cyst Dense breast Breast cancer screening by mammogram Acute bronchitis Ocular migraine Hyperlipidemia History of CVA (cerebrovascular accident) (~2020) Tubular adenoma of colon (~2005) SERG (obstructive sleep apnea) Nasal vestibulitis Degeneration, intervertebral disc, cervical Dry eye PONV (postoperative nausea and vomiting) Arthritis of neck Cerebral microvascular disease Atherosclerotic cardiovascular disease Precordial chest pain URI (upper respiratory infection) Overactive bladder Microscopic hematuria Urinary urgency Osteoporosis (~1999) Mycobacterial disease GERD (gastroesophageal reflux disease) Pulmonary nodules COPD (chronic obstructive pulmonary disease) Surgical History History of fusion of cervical spine History of sinus surgery History of colonoscopy History of esophagogastroduodenoscopy (EGD) History of bladder suspension procedure Family History Son No problems noted. Social History Household Members: Spouse Housing: Condominium Do you presently have visiting nurse or other home services: No Alcohol intake: never Patient Tobacco Use Status: Never used Tobacco Tobacco use type: Cigarette Years Smoked: parent and smoker e-Cigarette/Vaping Use: Never Used Second Hand Smoke Exposure: Yes Advance Directives Date on File: 08/16/20 service: No Current occupational status: retired Current occupation: right hand Cognitive needs: No Hearing needs: Yes (hearing aides) Vision needs: Yes (Glasses) Review of Systems Const Denies chills, Denies daytime sleepiness, Denies difficulty sleeping, Denies fatigue, Denies fever(s), Denies frequent falls, Reports headache(s), Denies increased appetite, Denies poor appetite, Denies snoring, Denies weakness, Denies weight gain and Denies weight loss Eyes Denies loss of vision ENT Denies vertigo, Denies dizziness, Reports headache(s) and Reports neck pain Card Denies chest pain at rest, Denies chest pain with activity, Denies syncope, Denies leg edema, Denies palpitations, Denies dyspnea and Denies dyspnea on exertion Resp Denies cough, Denies dyspnea, Denies dyspnea on exertion and Denies snoring GI Denies abdominal pain, Denies constipation, Denies heartburn, Denies diarrhea and Denies nausea Denies urinary frequency, Denies urinary incontinence and Denies urinary urgency Musc Denies abnormal gait, Denies back pain, Denies myalgias, Denies arthralgias, Reports neck pain, Reports numbness and Reports tingling Neuro Denies abnormal gait, Denies vertigo, Denies dizziness, Denies syncope, Denies frequent falls, Reports headache(s), Denies lack of coordination, Denies loss of vision, Denies memory loss, Reports numbness, Denies Other visual disturbances, Denies restless legs, Denies seizure-like activity, Reports tingling, Denies paresthesias, Denies tremor(s) and Denies weakness Psych Reports anxiety, Denies depression, Denies auditory hallucinations, Denies memory loss and Denies visual hallucinations Endo Denies fatigue and Denies palpitations Physical Exam Const Other: General Appearance:? normal, in no acute distress. Heart:? S1, S2 normal, no murmurs. Lungs:? clear anteriorly and posteriorly. Musculoskeletal:? normal. Extremities:? no edema. Psych:? alert, as below. Neuro Other: Abnormal Neurological Findings:?MMSE 21/30. Mental Status: alert, as below. Cranial Nerves: Pupils are equal, round, and reactive to light. External ocular muscles are intact. Visual limon are full, no ptosis. Face is symmetrical, no facial weakness or droop. Facial sensations are normal. Tongue protrudes in midline. Palate elevates symmetrically. Shoulder shrugging is normal Motor Examination: Normal muscle tone, bulk and strength. No atrophy or fasciculations. No drift of the extended upper extremities. DTR 2+. Plantars are flexor. Sensory Exam: Normal light touch, temperature, pinprick, vibration, and joint- position sensations. Rhomberg sign is absent. Coordination: No ataxia. No titubation. Gait Exam: Within normal limits. Cerebellar Signs: Yuadnt-tw-aqxr is okay. Extrapyramidal System: No tremor, rigidity with normal facial expressions. No bradykinesia. No bradyphrenia. Normal arm swing and posture. No propulsion or retropulsion. Speech: Normal. MMSE Level of Consciousness: Alert. Orientation: Knows correct year, month, day and season. Does not know date. Knows correct city, county and state. Knows correct location and floor. Registration: Able to register 3 objects. Attention: Serial 7's unable. Recall: Able to recall 0 out of 3 objects. Language: Normal spontaneous speech, fluency, repetition, naming, comprehension, reading, and writing. Total Score: 21/30. Results Reviewed Results Reviewed: Laboratory Tests 02/28/25 09/06/25 11:31 15:41 WBC 9.9 RBC 4.03 L Hgb 11.9 L Hct 37.3 MCV 92.6 MCH 29.5 MCHC 31.9 RDW 13.6 Plt Count 255 MPV 9.6 Immature Gran % (Auto) 0.4 Neut % (Auto) 66.8 Lymph % (Auto) 20.3 [place] % (Auto) 9.2 Eos % (Auto) 2.5 Baso % (Auto) 0.8 Lymph # (Auto) 2.0 [place] # (Auto) 0.9 Eos # (Auto) 0.3 Baso # (Auto) 0.1 Abs Immat Gran (auto) 0.04 H Absolute Neuts (auto) 6.6 Absolute Nucleated RBC 0.000 Nucleated RBC % (auto) 0.0 ESR 11 Sodium 142 Potassium 3.6 Chloride 108 Carbon Dioxide 29 Anion Gap 9 L BUN 15 Creatinine 0.75 Estimated GFR > 60 Random Glucose 103 Calcium 9.1 Total Bilirubin 0.8 Direct Bilirubin 0.2 AST 23 ALT 14 Alkaline Phosphatase 78 Total Protein 6.7 Albumin 4.3 Vitamin B12 287 25-OH Vitamin D Total 54.0 Folate 10.9 TSH 0.55 Free T4 0.[address] [address] [address] Scan Report Signed Patient: Adelina Tavarez MR#: [id number] : 1945 Acct:[id number] Age/Sex: 79 / F ADM Date: 05/02/25 Loc: HO.ED Attending Dr: Ordering Physician: Stephanie Vaughan DO Date of Service: 05/02/25 Procedure(s): CT head/brain wo IV con Accession Number(s): [id number] cc: Stephanie Vaughan DO; Abby Potter MD~ Report Number: [id number]: Total DLP = 615.00 mGy-cm EXAMINATION: CT HEAD WITHOUT CONTRAST CLINICAL INFORMATION: eliquis use headache COMPARISON: February 2025 TECHNIQUE: Contiguous axial imaging was performed from the skull base to vertex without intravenous administration of contrast. This CT examination was performed using dose optimization techniques as appropriate, variously including the following: *Automated exposure control *Adjustment of mA and/or kV according to patient size (this includes techniques or standardized protocols for targeted exams where dose is matched to indication/reason for exam; i.e. extremities or head) *Use of iterative reconstruction technique DLP: 615 mGy-cm FINDINGS: No acute cortical disruption in the bony calvarium or the skull base. No acute intracranial hemorrhage, mass effect, midline shift, hydrocephalus or herniation. Vela-white matter differentiation is normal. Bilateral multifocal patchy and confluent deep periventricular white matter hypodensities involving centrum semiovale and hi radiata. Prominence of the extra-axial CSF spaces cerebral sulci and ventricles. Calcified plaques in the cavernous supracavernous segments both ICAs and V4 segments of the vertebral arteries. Post surgical changes in the paranasal sinuses related to bilateral inferior ethmoidectomies and medial maxillary antrostomies. CT/CT head/brain wo IV con IMPRESSION: No acute fracture or bony calvarium. No acute intracranial hemorrhage. Small vessel occlusive disease Global cerebral atrophy. Atherosclerosis disease.. Electronically signed by: Jeison Maynard MD 05/02/2025 11:56 AM EDT Dictated By: Jeison Townsend MD Signed By: <Electronically signed by Jeison Madrid MD in OV> 05/02/[address] [place] [address] Magnetic Resonance Report Signed Patient: Adelina Tavarez MR#: [id number] : 1945 Acct:[id number] Age/Sex: 79 / F ADM Date: 04/22/25 Loc: HO.MRI Attending Dr: Mirta Sandoval MD Ordering Physician: Mirta Sandoval MD Date of Service: 04/22/25 Procedure(s): MR head/brain wo con Accession Number(s): [id number] cc: Mirta Sandoval MD; Abby Potter MD~ EXAMINATION: MR BRAIN WITHOUT CONTRAST CLINICAL INFORMATION: Memory change. COMPARISON: CT brain 02/02/2025 and MRI brain 02/02/2025 TECHNIQUE: MRI of the brain was obtained using routine sequences without contrast. FINDINGS: There is no restricted diffusion seen to suspect acute ischemic changes. There are scattered T2 signal changes in the deep white matter of both cerebral hemispheres. Some of these lesions are perpendicular to lateral ventricles likely old demyelinating disease. The lateral ventricles are symmetrical in size and configuration with mild enlargement . Both lateral ventricles are enlarged but symmetrical. The temporal horns are normal caliber. There is normal symmetry of temporal lobes. There is no white matter changes seen along the mesial temporal lobe. Normal flow-void signal seen in major cerebral vasculature. There is a small polyp or retention cyst left maxillary sinus. There are T2 signal changes in bilateral ethmoid and frontal sinuses. Normal flow-void signal seen in major cerebral vasculature. MR/MR head/brain wo con IMPRESSION: Diffuse T2 signal changes in subcortical white matter both cerebral hemispheres without mass effect or edema. Some of the lesions are perpendicular to lateral ventricle and may represent edema indices. There is mild cerebral volume loss with mild cortical thinning. Electronically signed by: Kelvin Patel MD 04/22/2025 02:41 PM EDT RP Dictated By: Kelvin Patel MD Signed By: <Electronically signed by Kelvin Patel MD in OV> 04/22/[address] [address] Magnetic Resonance Report Signed Patient: Adelina Tavarez MR#: [id number] : 1945 Acct:[id number] Age/Sex: 79 / F ADM Date: 02/02/25 Loc: HO.ED Attending Dr: Ordering Physician: Ramone Cunha MD Date of Service: 02/02/25 Procedure(s): MR head/brain wo con Accession Number(s): [id number] cc: Ramone Cunha MD; Abby Potter MD~ EXAMINATION: MR BRAIN WITHOUT IV CONTRAST HISTORY: ? CVA left hand numbness TECHNIQUE: Sagittal T1, and axial T1, FLAIR, T2, gradient echo, and diffusion weighted MR images of the brain were obtained. COMPARISON: Comparison is made with the prior examination dated 08/03/2021. FINDINGS: There is diffuse prominence of the ventricular system and cortical sulci, consistent with atrophy. Periventricular and subcortical white matter hyperintensities are noted on the FLAIR and T2-weighted images which are nonspecific, but often seen in the setting of small vessel ischemic disease. There is no mass effect or midline shift. No intra or extra-axial fluid collections are identified. There are no foci of restricted diffusion. Normal vascular flow voids are noted in the basilar and carotid arteries. There is partial opacification of the bilateral anterior ethmoid sinuses. There is mucosal thickening in the bilateral frontal and maxillary sinuses. MR/MR head/brain wo con IMPRESSION: No acute intracranial abnormality. Electronically signed by: Augie Jose MD 02/02/2025 03:28 PM EDT RP Dictated By: Augie Jose MD Signed By: <Electronically signed by Augie Jose MD in OV> 02/02/[address] [address] [address] Scan Report Signed Patient: Adelina Tavarez MR#: [id number] : 1945 Acct:[id number] Age/Sex: 79 / F ADM Date: 02/02/25 Loc: .ED Attending Dr: Ordering Physician: Ramone Cunha MD Date of Service: 02/02/25 Procedure(s): CT angio head neck Accession Number(s): [id number] cc: Ramone Cunha MD; Abby Potter MD~ Report Number: [id number]: Total DLP = 1350.00 mGy-cm EXAMINATION: CT ANGIOGRAM HEAD AND NECK CLINICAL INFORMATION: Left hand numbness. COMPARISON: 08/03/2021. TECHNIQUE: Noncontrast axial imaging of the head was performed. This was followed by test bolus sequences and head and neck intravenous bolus administration 70 mL of Omnipaque 350. Helical imaging was performed in the axial plane from the aortic arch to the skull vertex. The data was processed at the neurodiagnostic technologist's workstation for generation of MIP sequences. Angled MIPs and volume rendered reformatted images were also generated at an offline 3D workstation. Stenoses are assessed in accordance with NASCET criteria unless otherwise indicated. This CT examination was performed using dose optimization techniques as appropriate, variously including the following: *Automated exposure control *Adjustment of mA and/or kV according to patient size (this includes techniques or standardized protocols for targeted exams where dose is matched to indication/reason for exam; i.e. extremities or head) *Use of iterative reconstruction technique FINDINGS: NONCONTRAST HEAD CT: There is no evidence of intracranial hemorrhage or extra-axial fluid collection. There is no mass effect, or edema. No CT evidence of acute territorial infarct. Ventricles, sulci, and cisterns are normal in size and configuration for patient age. No hydrocephalus. No midline shift. Negative hyperdense MCA sign. Negative insular ribbon sign. Mild patchy supratentorial white matter hypodensities in keeping with mild small vessel ischemic changes. Globes and orbital contents image normally. Bilateral lens replacements. No extracranial soft tissue abnormalities. There has been prior sinonasal surgery. Polypoid mucosal thickening along the nasal septum, and in the anterior ethmoid air cells obstructing the frontal recesses. The paranasal sinuses, mastoid air cells, and tympanic cavities are normally aerated. No suspicious bony abnormalities. Severe degenerative arthritis right TM joint. NECK CTA: -AORTIC ARCH: Normal in caliber. Mild atheromatous calcification. Three-vessel branching pattern. -GREAT VESSEL ORIGINS: Widely patent. No stenosis. -RIGHT COMMON CAROTID ARTERY: Normal in course and caliber to the level of the bifurcation. -CERVICAL RIGHT INTERNAL CAROTID ARTERY: Mild calcific atherosclerotic disease of the carotid bulb and proximal internal carotid artery without flow-limiting stenosis. -LEFT COMMON CAROTID ARTERY: Normal in course and caliber to the level of the bifurcation. -CERVICAL LEFT INTERNAL CAROTID ARTERY: Mild calcific atherosclerotic disease of the carotid bulb and proximal internal carotid artery without flow-limiting stenosis. -CERVICAL RIGHT VERTEBRAL ARTERY: Codominant. Normal origin. Normal in course and caliber into the skull base. -CERVICAL LEFT VERTEBRAL ARTERY: Codominant. Normal origin. Normal in course and caliber into the skull base. OTHER, SOFT TISSUES: -No lymphadenopathy or mass. No abnormal fluid collection or soft tissue swelling. -Normal thyroid. -Imaged superior mediastinal structures normal. -Imaged lung apices clear. There is mild centrilobular emphysema. CTA OF THE BRAIN: -INTRACRANIAL INTERNAL CAROTID ARTERIES: Calcific atherosclerotic disease of the intracranial internal carotid arteries without occlusion or flow-limiting stenosis. -RIGHT ANTERIOR CEREBRAL ARTERY: Normal A1 segment.. Normal arborization of the distal segments. -LEFT ANTERIOR CEREBRAL ARTERY: Normal A1 segment.. Normal arborization of the distal segments. -ANTERIOR COMMUNICATING ARTERY: Normal. -RIGHT MIDDLE CEREBRAL ARTERY: Normal M1 segment of the MCA without focal stenosis or occlusion. Normal arborization of the distal segments. -LEFT MIDDLE CEREBRAL ARTERY: Normal M1 segment of the MCA without focal stenosis or occlusion. Normal arborization of the distal segments. -RIGHT VERTEBRAL ARTERY V4: Normal in course and caliber. Normal PICA branch. -LEFT VERTEBRAL ARTERY V4: Normal in course and caliber. Normal PICA branch. -BASILAR ARTERY: Normal without focal stenosis or occlusion. Normal appearance of the proximal superior cerebellar arteries. Normal basilar tip. -RIGHT POSTERIOR CEREBRAL ARTERY: Normal P1 segment. Normal opacification of the distal ANALYTIC PROGRAMMER segments. -LEFT POSTERIOR CEREBRAL ARTERY: Normal P1 segment. Normal opacification of the distal ANALYTIC PROGRAMMER segments. -POSTERIOR COMMUNICATING ARTERIES: Diminutive and not well seen bilaterally. Normal opacification of the superior sagittal, straight, transverse, and sigmoid sinuses. No venous thrombosis. No space-occupying hemorrhage or definite evolving infarct. CT/CT angio head neck IMPRESSION: NONCONTRAST HEAD CT: 1. No acute intracranial abnormality. 2. Mild changes of small vessel ischemia. 3. Severe degenerative arthritis right TM joint. CTA NECK: 1. No evidence of significant stenosis, occlusion, or dissection of the major cervical arterial vasculature. 2. Mild calcific plaque at the carotid bulbs bilaterally. CTA HEAD: 1. No evidence of major arterial occlusion, significant stenosis, dissection, or aneurysm. 2. Patent major cortical and dural venous sinuses. 3. No space-occupying hemorrhage or definite evolving infarct. Electronically signed by: Jeffrey Ceja MD 02/02/2025 01:21 PM EDT Dictated By: Jeffrey Ceja MD Signed By: <Electronically signed by Jeffrey Ceja MD in OV> 02/02/25 1321 04/29/2025 EEG at office: WNL 12/16/23 Carotid doppler normal. 01/01/24 EEG- WNL Assessment & Plan Assessment & Plan (1) MCI (mild cognitive impairment): Code(s): G31.84 - Mild cognitive impairment of uncertain or unknown etiology Category: Medical Plan: Labs, MRI brain from 02/02/2025 and 04/22/2025, CTA head/neck from 02/02/2025, CT head from 05/02/2025, and EEG results reviewed. Start memantine 5mg 1 tablet twice a day, use/side effects reviewed. Stay physically and socially active. (2) Muscle tension headache: Code(s): G44.209 - Tension-type headache, unspecified, not intractable Category: Medical Plan: No significant headaches. (3) History of CVA (cerebrovascular accident): Onset Date: ~2020 Comment: (right cerebellar hemisphere infarct - tx tPA 08/03/2021) Code(s): Z86.73 - Personal history of transient ischemic attack (TIA), and cerebral infarction without residual deficits Category: Medical Plan: Continue statin and Eliquis. (4) Partial seizure disorder: Code(s): G40.109 - Localization-related (focal) (partial) symptomatic epilepsy and epileptic syndromes with simple partial seizures, not intractable, without s tatus epilepticus Category: Medical (5) Droopy eyelid: Comment: left eye Code(s): H02.409 - Unspecified ptosis of unspecified eyelid Category: Medical Qualifiers: Laterality: left Qualified Code(s): H02.402 - Unspecified ptosis of left eyelid Plan . Medications: New memantine (Namenda) 5 mg PO BID 180 tabs 0RF 90 days Coding Level of Care Code Est Pt Level 4 (47340) Diagnoses MCI (mild cognitive impairment) G31.84 Muscle tension headache G44.209 History of CVA (cerebrovascular accident) Z86.73 Partial seizure disorder G40.109 Ptosis of left eyelid H02.402 Laterality: left
--- OUTSIDE RECORDS SUMMARY | 2025-09-21 15:59 | XMS_ITS | Clinical Summary ---
Author Organization [facility] Address [address] [place] [address] Phone Care Team Providers Care Search Planner Name Role Phone Vernon Mojica MD Primary [...] and muscle strengthening exercises. Follow closely with bead wire insulator as scheduled Visit for monitoring Reclast therapy [...] Continue as prescribed. Close follow-up with treating/prescribing pickle cutter Assessment & Plan (01/06/2020 1:22 PM EST): Continue as prescribed. Close follow-up with treating/prescribing pickle cutter Assessment & Plan (03/31/2019 8:43 AM EDT): Continue as prescribed. Close follow-up with treating/prescribing pickle cutter Primary osteoarthritis involving multiple joints 10/06/2017 Assessment [...] Formulation 11/10(Deferred: Other - , Ordered By: [id number]),08/03/2012 Pneumococcal conjugate PCV13 06/22/2015 Pneumococcal polysaccharide PPSV23 [...] bone mineral density since 2018. POS - [id number] Narrative 04/20/2019 9:11 AM EDT This is [...] at L3-4 and was calculated at 0.667 gm/qa8ltke a T-score of - 2.8 and Z-score of -0.8, falling within the WHOclassification of osteoporosis, representing an interval decline of 3.2%since 2018 which is not felt to be within the range of statisticalsignificance.. Total bone mineral density in the right hip was calculated at 0.675 gm/sj0omcb a T-score of -2.2 and Z-score of [...] hip bone mineral densitysince 2018. POS - [id number] us Johnna I Klich-Navneet MD IMG BD BONE DENSITY DEXA Final Result * (ABNORMAL) Historical Lab (02/23/2013 10:57 AM EDT) Thyroid Stimulating Hormone 0.09(Abno rmally L) 0.40 - 5.00 uU/ml [facility] 02/23/2013 10:5 7 AM EDT 02/23/2013 1:14 PM EDT Comment:BLOOD us Micheal Larsen MD LAB BLOOD ORDERABLES Final Result [address] [address] from Last 3 Months or Most Recently Relevant to Health Maintenance Insurance MEDICARE PART A & B [employer] MEDICARE ENHANCE SUPPLEMENT [facility] Address: [facility] [id number] [id number] MEDICARE PART A & B [facility] MEDICARE ENHANCE SUPPLEMENT MEDICARE PART A & B [facility] MEDICARE ENHANCE SUPPLEMENT MEDICARE PART A & B MEDICARE ENHANCE SUPPLEMENT MEDICARE PART A & B [id number] [place] [address] MEDICARE ENHANCE SUPPLEMENT MEDICARE PART A & B [facility] MEDICARE ENHANCE SUPPLEMENT MEDICARE PART A & B [facility] MEDICARE ENHANCE SUPPLEMENT MEDICARE PART A & B [facility] MEDICARE ENHANCE SUPPLEMENT MEDICARE PART A & B [facility] MEDICARE ENHANCE SUPPLEMENT MEDICARE PART A & B [facility] MEDICARE ENHANCE SUPPLEMENT Care Teams Search Planner Relationship Specialty Start Date End Date Vernon Mojica MD [address] [place] [address] NADIASAAD MURPHY [id number] PCP - General Internal Medicine 07/03/22 Additional Source Comments The information contained in this document represents components of the legal health record. It is not the complete legal health record.[facility]
--- OUTSIDE RECORDS SUMMARY | 2025-09-21 15:59 | XMS_ITS | Encounter Summary ---
Author Organization [facility] Address [address] [place] [address] Care Team Providers Care Mobile Phlebotomist Name Role Phone TariqMarleeelidia Marc Primary Care Provider [phone] Reason for Visit * Reason Onset Date Comments PAC Patient Request Call Back 06/08/2024 Encounter Details Date Type Department Care Team (Late st Contact Info) Description 06/08/2024 Telephone [facility] Patient Access Center [address] [place] [address] Telephone Intake, Staff PAC Patient Request Call [...] for 9am. Patient can be reached at [phone]. Thank you - PAC documented in this encounter Plan of Treatment Upcoming Encounters Date Type Department Care Team (Late st Contact Info) Description 11/07/2025 9:30 AM EST Follow-Up [facility] [address] [place] [address] Residential Sales Consultant: Carlos Diop MD [address] [place] [address] 12/20/2025 9:00 AM EST Clinical Support [facility] [address] [place] [phone] Residential Sales Consultant: Marlena Hurst documented as of this encounter Visit Diagnoses Not on filedocumented in this encounter Care Teams Mobile Phlebotomist Relationship Specialty Start Date End Date Abby Potter [address] [place] [address] [place] [address] PCP - General Internal Medicine 04/14/24 documented as of this encounter
--- OUTSIDE RECORDS SUMMARY | 2025-09-21 15:59 | XMS_ITS | Clinical Summary ---
Author Organization [facility] Address [address] [place] [address] Care Team Providers Care Epic Kaleidoscope Analyst Name Role Phone TariqAbby Monico Primary Care Provider [phone] Allergies Active Allergy Reactions Criticality Noted Date [...] Type Department Care Team Description 07/07/2025 Telephone [facility] [address] [place], [place] [id number] Manager Wellness: Marlena Hurst Telephone Intake, Staff PAC Clinical Questions from Last 3 Months Social History Tobacco [...] Info) Description 11/07/2025 9:30 AM EST Follow-Up [facility] [address] [place] [phone] Manager Wellness: Carlos Diop MD [address] [place] [phone] 12/20/2025 9:00 AM EST Clinical Support [facility] [address] [place] [address] Manager Wellness: Marlena Hurst Health Maintenance Due Date Last Done Comments Hepatitis C Screening 1945 Medicare AWV 1946 Alcohol/Substance Use Screening 11/03/2024 Depression Screening and Follow-Up 11/03/2024 Health Care Proxy Review 11/03/2024 Social Drivers of Health Annual Screening 11/03/2024 Influenza Vaccine (#1) 2025 3, 07/24/2022, 08/01/2021, Additional history exists COVID-19 Vaccine ( season) 2025 08/05/2023, 10/21/2021, 01/01/2021, Additional history exists Fall Risk Screening 03/03/2026 03/03/2025 DTaP,Tdap,and Td Vaccines (3 - Td or Tdap) 11/17/2029 11/17/2019, 09/01/2009 Tobacco Screening 11/03/2042 03/03/2025 Zoster Vaccines Completed 10/03/2020, 1107/2020, 07/20/2020, Additional history exists RSV Vaccine (60+ years old and patients) Completed 08/05/2023 Osteoporosis Screening Completed 3, 10/31/2023, 04/20/2019, Additional history exists Pneumococcal Vaccine: 50+ Years Completed 03/05/2024, 06/22/2015, 11/17/2013 Hepatitis B Vaccines Aged Out No long er eligible based on patient's age to complete this topic Procedures * Due to [place] [employer] law, this organization might not be sharing negative HIV tests. Procedure Name Priority Date/Time Associated Diagnosis Comments HM DEXA SCAN 10/31/2023 from Last 3 Months or Most Recently Relevant to Health Maintenance Results * Due to [place] [employer] law, this organization might not be sharing negative HIV tests. * Dexa Scan (10/31/2023) Anatomical Region Laterality Modality Other 10/31/2023 us Onbase Scan [facility] Final Resu lt from Last 3 Months or Most Recently Relevant to Health Maintenance Insurance MEDICARE [facility] Care Teams Epic Kaleidoscope Analyst Relationship Specialty Start Date End Date Abby Potter [address] [place] [address] [place] [address] PCP - General Internal Medicine 04/14/24
== END 2025-09-21 09:01 | disposition home or self-care (01) ==
LOC: HO.HSM 08:20
PROVIDERS: PCP Internal Medicine; Referring Provider Internal Medicine; Visit Provider Registered Nurse
DX: G31.84 Mild cognitive impairment of uncertain or unknown etiology (principal); G44.209 Tension-type headache, unspecified, not intractable; Z86.73 Personal history of transient ischemic attack (TIA), and cerebral infarction without residual deficits; G40.109 Localization-related (focal) (partial) symptomatic epilepsy and epileptic syndromes with simple partial seizures, not intractable, without status epilepticus; H02.402 Unspecified ptosis of left eyelid
CPT/HCPCS: 99214

== ENCOUNTER → 2025-09-21 08:20 | Outpatient (BNVA) | payer MEDICARE, OTHER, SELFPAY | PROVIDERS: PCP Internal Medicine; Referring Provider Internal Medicine; Visit Provider Registered Nurse | DX: G44.209 Tension-type headache, unspecified, not intractable (principal); G31.84 Mild cognitive impairment of uncertain or unknown etiology; G40.109 Localization-related (focal) (partial) symptomatic epilepsy and epileptic syndromes with simple partial seizures, not intractable, without status epilepticus; Z86.73 Personal history of transient ischemic attack (TIA), and cerebral infarction without residual deficits; Z79.01 Long term (current) use of anticoagulants | CPT/HCPCS: 99212 ==

== ENCOUNTER 2025-09-27 14:57 | Outpatient (REF) | payer MEDICARE, OTHER, SELFPAY ==
--- NOTE | ~2025-09-27 | MR_ITS ---
EXAMINATION: MR ABDOMEN WITHOUT THEN WITH IV CONTRAST HISTORY: K86.2 - Cyst of pancreas COMPARISON: Renal ultrasound most recent January 2024 and abdominal ultrasound September 2025 TECHNIQUE: Axial in and out of phase T1-weighted gradient echo, axial diffusion weighted, and axial and coronal HASTE T2 with fat saturation images were obtained through the abdomen. Subsequently, fat suppressed axial and coronal T1-weighted images were obtained after the intravenous administration of 5 mL Gadavist. FINDINGS: Lung bases are clear. Liver: There is no loss of signal intensity in the liver on opposed phase imaging to suggest steatosis. Liver is normal in size and contour. Several liver cysts. Largest cyst measures 11 x 14 mm in the left lobe segment 2 for example axial image 12 series 5. They have a single thin enhancing septation for example axial image 24 series 21. Other smaller simple appearing liver cysts. 7 mm low signal T1 and high signal T2 homogeneously enhancing lesion that remains enhanced on the later sequences following blood pool signal in the left lobe segment 2. This probably represents a benign hemangioma for example axial image 23 series 20. The hepatic and portal veins are patent. There is no intrahepatic biliary dilatation. Gallbladder/biliary tree: No gallstones are identified. The common bile duct is normal in caliber. No intraluminal filling defects are identified to suggest choledocholithiasis. Spleen: The spleen is normal in size. 6 mm low signal T1 and high signal T2 nonenhancing lesion compatible with a cyst in the inferior spleen. 6 mm low signal T1 high signal T2 lesion in the superior lateral spleen. This demonstrates late homogeneous enhancement and probably represents a hemangioma. Pancreas: There are multiple pancreatic cysts. Largest cyst measures 9 x 7 x 10 mm in the neck of the pancreas. This abuts the main pancreatic duct. Numerous additional smaller cysts largest measuring 4 x 8 mm in the tail of the pancreas for example coronal T2 image 16 series 3 and 3 x 7 mm in the neck of the pancreas coronal T2 image 26 series 3 no solid pancreatic mass. No main pancreatic duct dilatation. No pancreatic duct filling defect. There may be variant pancreatic ductal anatomy with a persistent duct of Santorini. Adrenals: The adrenal glands are unremarkable. Kidneys: Bilateral small renal cysts, largest on the right measuring 1 cm exophytic to the lateral mid pole and 7 mm lower pole peripelvic cyst on the left. The kidneys are otherwise unremarkable. No enhancing renal mass. There is no hydronephrosis. Lymph nodes: There is no retroperitoneal lymphadenopathy in the upper abdomen. Fluid: There is no ascites in the upper abdomen. Visualized bowel: The visualized small and large bowel loops are unremarkable in appearance. Vascular: Normal caliber abdominal aorta. No aneurysm. Splenic and portal veins are patent. Prominent venous structure to the left of the aorta terminating in the left renal vein, question prominent left gonadal vein versus a duplicated IVC. Visualized bones: Thoracolumbar scoliosis and degenerative changes. Small umbilical hernia containing fat. MR/MR abdomen wo/w con IMPRESSION: Multiple pancreatic cysts, largest measuring 9 x 10 mm in the neck of the pancreas. 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 Recommend annual MR imaging follow-up in 1 year. Small liver and spleen cysts and hemangiomas. Small bilateral renal cysts. Electronically signed by: Randi Logan MD 09/27/2025 04:57 PM EST
--- OUTSIDE RECORDS SUMMARY | 2025-09-27 18:42 | XMS_ITS | Clinical Summary ---
Author Organization [facility] Address [address] [facility] [address] [place] [address] Care Team Providers Care Speed Reading Teacher Name Role Phone Abby Potter MD Primary Care Provider [phone] Social History Tobacco Use Types Packs/Day Years [...] topic Insurance MEDICARE PART A AND B [facility] Care Teams Speed Reading Teacher Relationship Specialty Start Date End Date Abby Potter MD [address] [place] [address] PCP - General 08/10/24
--- OUTSIDE RECORDS SUMMARY | 2025-09-27 18:43 | XMS_ITS | Clinical Summary ---
Author Organization [facility] Address [address] [place] [address] Phone Care Team Providers Care Musical Instrument Maker Name Role Phone Vernon Mojica MD Primary [...] and muscle strengthening exercises. Follow closely with computer support technician as scheduled Visit for monitoring Reclast therapy [...] Continue as prescribed. Close follow-up with treating/prescribing inspector wire products Assessment & Plan (01/06/2020 1:22 PM EST): Continue as prescribed. Close follow-up with treating/prescribing inspector wire products Assessment & Plan (03/31/2019 8:43 AM EDT): Continue as prescribed. Close follow-up with treating/prescribing inspector wire products Primary osteoarthritis involving multiple joints 10/06/2017 Assessment [...] Formulation 11/10(Deferred: Other - , Ordered By: [id number]),08/03/2012 Pneumococcal conjugate PCV13 06/22/2015 Pneumococcal polysaccharide PPSV23 [...] bone mineral density since 2018. POS - [id number] Narrative 04/20/2019 9:11 AM EDT This is [...] at L3-4 and was calculated at 0.667 gm/uy6wgue a T-score of - 2.8 and Z-score of -0.8, falling within the WHOclassification of osteoporosis, representing an interval decline of 3.2%since 2018 which is not felt to be within the range of statisticalsignificance.. Total bone mineral density in the right hip was calculated at 0.675 gm/cf7hatk a T-score of -2.2 and Z-score of [...] hip bone mineral densitysince 2018. POS - [id number] us Johnna I Klich-Navneet MD IMG BD BONE DENSITY DEXA Final Result * (ABNORMAL) Historical Lab (02/23/2013 10:57 AM EDT) Thyroid Stimulating Hormone 0.09(Abno rmally L) 0.40 - 5.00 uU/ml [facility] 02/23/2013 10:5 7 AM EDT 02/23/2013 1:14 PM EDT Comment:BLOOD us Micheal Larsen MD LAB BLOOD ORDERABLES Final Result [address] [address] from Last 3 Months or Most Recently Relevant to Health Maintenance Insurance MEDICARE PART A & B [employer] MEDICARE ENHANCE SUPPLEMENT [facility] Address: [facility] [id number] [id number] MEDICARE PART A & B [facility] MEDICARE ENHANCE SUPPLEMENT MEDICARE PART A & B [facility] MEDICARE ENHANCE SUPPLEMENT MEDICARE PART A & B MEDICARE ENHANCE SUPPLEMENT MEDICARE PART A & B [id number] [place] [address] MEDICARE ENHANCE SUPPLEMENT MEDICARE PART A & B [facility] MEDICARE ENHANCE SUPPLEMENT MEDICARE PART A & B [facility] MEDICARE ENHANCE SUPPLEMENT MEDICARE PART A & B [facility] MEDICARE ENHANCE SUPPLEMENT MEDICARE PART A & B [facility] MEDICARE ENHANCE SUPPLEMENT MEDICARE PART A & B [facility] MEDICARE ENHANCE SUPPLEMENT Care Teams Musical Instrument Maker Relationship Specialty Start Date End Date Vernon Mojica MD [address] [place] [address] NADIASAAD MURPHY [phone] PCP - General Internal Medicine 07/03/22 Additional Source Comments The information contained in this document represents components of the legal health record. It is not the complete legal health record.[facility]
--- OUTSIDE RECORDS SUMMARY | 2025-09-27 18:43 | XMS_ITS | Clinical Summary ---
Author Organization [facility] Address [address] [place] [address] Care Team Providers Care Rn Lactation Consultant Name Role Phone TariqAbby Monico Primary Care Provider [phone] Allergies Active Allergy Reactions Criticality Noted Date [...] Type Department Care Team Description 07/07/2025 Telephone [facility] [address] [place], [place] [phone] Protective Services Social Worker: Marlena Hurst Telephone Intake, Staff PAC Clinical [...] Info) Description 11/07/2025 9:30 AM EST Follow-Up [facility] [address] [place] [address] Protective Services Social Worker: Carlos Diop MD [address] [place] [address] 12/20/2025 9:00 AM EST Clinical Support [facility] [address] [place] [address] Protective Services Social Worker: Marlena Hurst Health Maintenance Due Date Last [...] this topic Procedures * Due to [place] [employer] law, this organization might not be sharing negative HIV tests. Procedure Name Priority Date/Time Associated Diagnosis Comments HM DEXA SCAN 10/31/2023 from Last 3 Months or Most Recently Relevant to Health Maintenance Results * Due to [place] [employer] law, this organization might not be sharing negative HIV tests. * Dexa Scan (10/31/2023) Anatomical Region Laterality Modality Other 10/31/2023 us Onbase Scan [facility] Final Resu lt from Last 3 Months or Most Recently Relevant to Health Maintenance Insurance MEDICARE [facility] Care Teams Rn Lactation Consultant Relationship Specialty Start Date End Date Abby Potter [address] [place] [address] [place] [address] PCP - General Internal Medicine 04/14/24
--- OUTSIDE RECORDS SUMMARY | 2025-09-27 18:43 | XMS_ITS | Encounter Summary ---
Author Organization [facility] Address [address] [place] [address] Care Team Providers Care Ring Stamper Name Role Phone TariqMarleeelidia Macr Primary Care Provider [phone] Reason for Visit * Reason Onset Date Comments PAC Patient Request Call Back 06/08/2024 Encounter Details Date Type Department Care Team (Late st Contact Info) Description 06/08/2024 Telephone [facility] Patient Access Center [address] [place] [address] Telephone Intake, Staff PAC Patient Request Call [...] for 9am. Patient can be reached at [phone]. Thank you - PAC documented in this encounter Plan of Treatment Upcoming Encounters Date Type Department Care Team (Late st Contact Info) Description 11/07/2025 9:30 AM EST Follow-Up [facility] [address] [place] [address] [employer] Fish And Chips: Carlos Diop MD [address] [place] [address] 12/20/2025 9:00 AM EST Clinical Support [facility] [address] [place] [address] [employer] Fish [employer] Chips: Marlena Hurst documented as of this encounter Visit Diagnoses Not on filedocumented in this encounter Care Teams Ring Stamper Relationship Specialty Start Date End Date Abby Potter [address] [place] [address] [place] [address] PCP - General Internal Medicine 04/14/24 documented as of this encounter
== END 2025-09-27 14:58 | disposition home or self-care (01) ==
LOC: HO.MRI 14:57
PROVIDERS: Visit Provider Internal Medicine
DX: K86.2 Cyst of pancreas (principal)
CPT/HCPCS: 74183; A9585

== ENCOUNTER → 2025-09-27 15:11 | Outpatient (BNV) | payer MEDICARE, OTHER, SELFPAY | PROVIDERS: Visit Provider Radiology Diagnostic Radiology | DX: K86.2 Cyst of pancreas (principal); K76.89 Other specified diseases of liver; D73.4 Cyst of spleen; D18.03 Hemangioma of intra-abdominal structures; N28.1 Cyst of kidney, acquired | CPT/HCPCS: 74183 ==

== ENCOUNTER 2025-10-03 14:08 | Outpatient (AMB) | payer MEDICARE, OTHER, SELFPAY ==
[2025-10-03 14:27] VITALS: BP 122/68; PULSE 71; O2SAT 97; BMI 22.1
--- NOTE | 2025-10-03 14:27 | A.OFFPC_ITS ---
Vital Signs 10/03/25 14:27 Height 5 ft Weight 113 lb BMI 22.1 BP 122/68 Blood Pressure Location Lt brachial Position Sitting Pulse 71 Pulse Source Pulse Oximeter Pulse Oximetry (%) 97 Oxygen Delivery Method Room Air Intake Visit Reasons: follow up Allergies naproxen (From NAPROSYN) Allergy (Severe, Verified 09/21/25 08:44) sensitivity niacin (From NIASPAN EXTENDED-RELEASE) Allergy (Severe, Verified 09/21/25 08:44) Rash clarithromycin (From BIAXIN) Allergy (Mild, Verified 09/21/25 08:44) sensitivity codeine (CODEINE) Allergy (Mild, Verified 09/21/25 08:44) Itching esomeprazole (From Nexium) Allergy (Mild, Verified 09/21/25 08:44) Hives fluconazole (From DIFLUCAN) Allergy (Mild, Verified 09/21/25 08:44) sensitivity gatifloxacin (From TEQUIN) Allergy (Mild, Verified 09/21/25 08:44) sensitivity hydrocodone (From Vicodin) Allergy (Mild, Verified 09/21/25 08:44) Rash levofloxacin (From Levaquin) Allergy (Mild, Verified 09/21/25 08:44) sensitivity oxycodone (From Percocet) Allergy (Mild, Verified 09/21/25 08:44) Itching quinidine (QUINIDINE) Allergy (Mild, Verified 09/21/25 08:44) sensitivity Sulfa (Sulfonamide Antibiotics) (SULFA (SULFONAMIDE ANTIBIOTICS)) Allergy (Mild, Verified 09/21/25 08:44) Rash terfenadine (From SELDANE) Allergy (Mild, Verified 09/21/25 08:44) sensitivity tetracycline (TETRACYCLINE) Allergy (Mild, Verified 09/21/25 08:44) sensitivity amitriptyline Allergy (Unknown, Verified 09/21/25 08:44) Unknown cefaclor (From CECLOR) Adverse Reaction (Severe, Verified 09/21/25 08:44) Unknown abaloparatide (From Tymlos) Adverse Reaction (Intermediate, Verified 09/21/25 08:44) Dizziness bupropion (From Wellbutrin) Adverse Reaction (Intermediate, Verified 09/21/25 08:44) Nausea cefdinir Adverse Reaction (Intermediate, Verified 09/21/25 08:44) Stomach Upset montelukast (From Singulair) Adverse Reaction (Mild, Verified 09/21/25 08:44) Headache topiramate (From TOPAMAX) Adverse Reaction (Mild, Verified 09/21/25 08:44) Stomach Upset Tobacco use date assessed: 09/13/25 Dental Screening Dental Screen Date: 09/13/25 HPI HPI Comments History of Present Illness Details History of Present Illness The patient is a 79 year old individual presenting for a follow-up visit for management of multiple chronic medical problems. The patient's past medical history includes osteoporosis, with the last bone density scan in October 2023, cervical disc disease, GERD, obstructive sleep apnea, COPD, and a history of a CVA for which the patient is on anticoagulation. Other chronic conditions include hypercholesterolemia, generalized anxiety disorder, overactive bladder, and cognitive impairment. An MRI performed on September 27 to evaluate a pancreatic cyst revealed multiple pancreatic cysts, with the largest measuring 1 cm, in addition to small cysts in the liver, spleen, and kidneys. The radiologist recommended an annual follow-up MRI, but the final plan is pending review by the emergency department aide. For palpitations, a Holter monitor on September 19 showed rare SVT, rare ventricular ectopy, and no pauses. The patient has a history of atypical chest pain, with prior testing revealing mild nonobstructive coronary artery disease, and a more recent echocardiogram was normal. A PET scan in November 2014 for a left pulmonary nodule showed a hypermetabolic left lower lung nodule. For COPD, the patient is prescribed Advair but reports using it infrequently, only with occasional dyspnea on exertion, such as when climbing stairs. For cognitive impairment, the patient was started on Memantine 5 mg twice daily by neurology. Blood work from September 06 showed very mild anemia with a hemoglobin of 11.9, mild low vitamin B12, and normal renal function, liver function, and thyroid levels. A cholesterol panel from February 2025 showed an LDL of 47. Health Maintenance A discussion was had regarding a follow-up bone density scan for osteoporosis management and the importance of calcium and vitamin D. Social History - Functional Status: The patient reports occasional shortness of breath with exertion, such as climbing stairs. - Diet: Recommended a healthy, low-salt diet. - Habits: Advised to drink enough water. - Activity: Advised to keep active. Results - Labs (September 06): - CBC: Very mild anemia (Hgb 11.9 g/dL). - CMP: Normal renal function, liver func tion, sodium, and potassium. - Vitamin B12: Mildly low. - TSH: Normal. - Labs (February 2025): - Lipid Panel: LDL cholesterol of 47 mg/ dL. - Imaging: - MRI Abdomen (September 27): Showed mult iple pancreatic cysts (largest 1 cm), small cysts in the liver and spleen, and cysts in the kidneys. Radiologist recommended annual MRI follow-up. - PET Scan (November 2014): Showed a hype rmetabolic left lower lung nodule. - Tests/Diagnostics: - Holter Monitor (September 19): Revealed rare supraventricular tachycardia, rare ventricular ectopy, and no pauses. - Echocardiogram (most recent): Normal. - Bone Density Scan (October 2023): Res ults not detailed. [facility] Medical History (Updated 10/03/25 @ 15:04 by Abby Potter MD) Palpitation Abdominal pain MCI (mild cognitive impairment) Migraine with aura, with intractable migraine, so stated, with status migrainosus Depression Hiatal hernia Anxiety and depression Neck pain Cervical disc disease Muscle tension headache Paresthesia of skin MCI (mild cognitive impairment) with memory loss Vertigo Myopathy Unspecified optic neuritis Memory change Mgrn w aura w intrc mgrn Sinusitis Stroke Migraine Carpal tunnel syndrome Hemiparesis Chest pain Sinus congestion Cough Weight loss Polyarthralgia Fall Shoulder pain, right Back pain Nausea Headache, post-traumatic, acute Scalp irritation Anemia Encounter for vitamin deficiency screening Renal cyst Dense breast Breast cancer screening by mammogram Acute bronchitis Ocular migraine Hyperlipidemia History of CVA (cerebrovascular accident) (~2020) Tubular adenoma of colon (~2005) SERG (obstructive sleep apnea) Nasal vestibulitis Degeneration, intervertebral disc, cervical Dry eye PONV (postoperative nausea and vomiting) Arthritis of neck Cerebral microvascular disease Atherosclerotic cardiovascular disease Precordial chest pain URI (upper respiratory infection) Overactive bladder Microscopic hematuria Urinary urgency Osteoporosis (~1999) Mycobacterial disease GERD (gastroesophageal reflux disease) Pulmonary nodules COPD (chronic obstructive pulmonary disease) Surgical History History of fusion of cervical spine History of sinus surgery History of colonoscopy History of esophagogastroduodenoscopy (EGD) History of bladder suspension procedure Family History Son No problems noted. Social History Household Members: Spouse Housing: Condominium Do you presently have visiting nurse or other home services: No Alcohol intake: never Patient Tobacco Use Status: Never used Tobacco Tobacco use type: Cigarette Years Smoked: parent and smoker e-Cigarette/Vaping Use: Never Used Second Hand Smoke Exposure: Yes Advance Directives Date on File: 08/16/20 service: No Current occupational status: retired Current occupation: right hand Cognitive needs: No Hearing needs: Yes (hearing aides) Vision needs: Yes (Glasses) Questionnaire Thrive Questionnaire Date Thrive assessed: 03/29/25 I am a: Patient What is your living situation today?: I have a steady place to live Within the past 12 months, did the food you bought not last and you didn't have the money to get more?: Never true Within the past 12 months, did you worry whether your food would run out before you got money to buy more?: Never true Do you have trouble paying for medicines?: No Do you have trouble getting transportation to medical appointments?: No Do you have trouble paying your heating and electricity bill?: No Do you have trouble taking care of your child, family member or friend?: No Do you have trouble with day-to-day activities such as bathing, preparing meals, shopping, managing finances, etc.?: No Are you currently unemployed and looking for a job?: No Are you interested in more education?: No Please select the resources that you would like help with: None Currently or been in a relationship where the following occur: No concerns reported THRIVE Score: 0 SAVANNAH-7 AMB Questionnaire SAVANNAH-7 Date SAVANNAH - 7 assessed: 03/29/25 Source: Developed by Drs. Augie Espinoza, Yue Griffin, Michael Gallo and colleagues, with an educational aniya from [employer]. Review of Systems Narrative Review of Systems - Cardiovascular: Reports occasional palpitations. - Respiratory: Reports occasional dyspnea on exertion, such as when climbing stairs. - Gastrointestinal: Bowel movements are reported as not bad. Denies straining or blood in the stool. - Neurological: Acknowledges taking medication for memory. Physical exam (Primary Care) Vital Signs: Last Vital Signs Pulse 71 10/03/25 14:27 BP 122/68 10/03/25 14:27 Pulse Ox 97 10/03/25 14:27 Oxygen Delivery Method Room Air 10/03/25 14:27 BMI result Body Mass Index 22.1 Tobacco/Smoking Status: Tobacco use Status Tobacco use date assessed 09/13/25 10/03/25 14:29 Patient Tobacco Use Status Never used Tobacco 10/03/25 14:29 Tobacco use type Cigarette 10/03/25 14:29 e-Cigarette/Vaping Use Never Used 10/03/25 14:29 Thrive Assessment: Date of Thrive Assessment Date Thrive assessed 03/29/25 10/03/25 14:29 Currently or been in a relationship where the following occur: No concerns reported Narrative Physical Exam - Vitals: Blood pressure 122/-- mmHg. - General: Appears well. Const General: alert; No acute distress Eyes Conjunctivae: conjunctivae normal Resp Auscultation: clear to auscultation bilaterally Cardio Rate: regular rate Rhythm: regular rhythm GI Inspection: Yes normal to inspection Extrem General: Yes normal to inspection and No edema Coding Level of Care Code Complex visit Add On G2211 Diagnoses Age-related osteoporosis without current pathological fracture M81.0 Osteoporosis type: age-related Presence of current pathological fracture: without current pathological fracture Hyperlipidemia E78.5 Generalized anxiety disorder F41.1 Gastroesophageal reflux disease with esophagitis without hemorrhage K21.00 Esophagitis bleeding: without hemorrhage Esophagitis presence: with esophagitis MCI (mild cognitive impairment) G31.84 Simple chronic bronchitis J41.0 COPD type: chronic bronchitis Chronic bronchitis type: simple Assessment & Plan Assessment & Plan (1) Osteoporosis: Onset Date: ~1999 Comment: Diagnosed prior to 2018 DEXA 04/2019 osteoporosis T score-2.9 left hip, L-spine T-score -2.8 Received Reclast: 12/23/2018, 01/21/2020, 01/20/2021. DEXA 09/22/2021 with T-score of-3.2 left femoral neck Prolia 01/20/2022- present after dental clearance Wrist fracture 01/23 DEXA 10/2023 osteoporosis T-score left femoral neck-4.5, left hip total -3.9, L- spine -0.9 Tymlos 03/2024 DC after 4 doses due to dizziness, room spinning, passing out Code(s): M81.0 - Age-related osteoporosis without current pathological fracture Category: Medical Qualifiers: Osteoporosis type: age-related Presence of current pathological fracture: without current pathological fracture Qualified Code(s): M81.0 - Age- related osteoporosis without current pathological fracture Plan: Discussed about follow-up up bone density discussed about calcium and vitamin-D (2) Hyperlipidemia: Code(s): E78.5 - Hyperlipidemia, unspecified Category: Medical Plan: Avoid fried foods, chicken skin, eggs, butter margarine, pastries and meat. Be it pork or beef they have a lot of cholesterol on atorvastatin 40 mg once a day LDL goal of less than 70 and triglyceride of less than 150 (3) Generalized anxiety disorder: Code(s): F41.1 - Generalized anxiety disorder Category: Medical Plan: Continue with Lexapro (4) GERD (gastroesophageal reflux disease): Code(s): K21.9 - Gastro-esophageal reflux disease without esophagitis Category: Medical Qualifiers: Esophagitis bleeding: without hemorrhage Esophagitis presence: with esophagitis Qualified Code(s): K21.00 - Gastro-esophageal reflux disease with esophagitis, without bleeding Plan: Avoid the foods that causes that usually spicy foods, tomato products, juices, coffee, soda and foods that your sensitive to. After eating do not lie down, allow 3-4 hours before in lie down. And keep the head of bed above 30 degrees to avoid the acid from going up. (5) MCI (mild cognitive impairment): Code(s): G31.84 - Mild cognitive impairment of uncertain or unknown etiology Category: Medical Plan: Patient was seen by Neurology and started her on memantine (6) COPD (chronic obstructive pulmonary disease): Code(s): J44.9 - Chronic obstructive pulmonary disease, unspecified Category: Medical Qualifiers: COPD type: chronic bronchitis Chronic bronchitis type: simple Qualified Code(s): J41.0 - Simple chronic bronchitis Plan: On Advair. Plan Plan Patient was informed and verbally consented to the use of an ambient scribe for clinic note documentation during this visit. 1. Multiple Pancreatic Cysts An MRI on September 27 revealed multiple pancreatic cysts, the largest being 1 cm, as well as cysts in the liver, spleen, and kidneys. While the radiologist recommended annual MRI follow-up, the final plan will be determined by the emergency department aide, Dr. Polk, who will be contacted for an opinion. The patient was informed that pancreatic cysts are concerning and that intervention, if needed, would require holding anticoagulation. 2. Cognitive Impairment The patient follows with neurology and was started on medication for memory. The patient will continue taking Memantine 5 mg twice a day as prescribed. 3. Hypertension The patient's blood pressure has improved to 122/-- from a previous reading of 144/--. The patient was advised that anxiety can elevate blood pressure and was counseled on lifestyle modifications, including relaxation, adequate hydration, a low-salt diet, and staying active. 4. Hypercholesterolemia Cholesterol is well-controlled with an LDL of 47. The patient will continue atorvastatin 40 mg once a day, with a goal LDL of less than 70 and triglycerides less than 150. 5. Chronic Obstructive Pulmonary Disease (Copd) The patient reports infrequent use of Advair, taking it only for occasional shortness of breath. The patient was advised to continue using Advair as needed for seldom symptoms, but to use it more regularly if symptoms are not well- controlled. 6. Generalized Anxiety Disorder The patient will continue taking Lexapro as prescribed. 7. Constipation The patient reports that Senna is effective for bowel movements and was informed that multiple refills are available at the pharmacy. Discussion Notes I informed the patient that the recent MRI confirmed the presence of multiple cysts in the pancreas, liver, spleen, and kidneys. I explained that while liver and kidney cysts are generally not a concern, pancreatic cysts warrant closer attention. I conveyed the radiologist's recommendation for a follow-up MRI in one year but emphasized that we must await the final plan from the emergency department aide, Dr. Polk, as they ordered the study. We discussed that if any procedure were necessary, it would require temporarily stopping the patient's blood thinner. I reviewed recent blood work, noting the very mild anemia and excellent cholesterol control. I also noted the significant improvement in the patient's blood pressure and reinforced the importance of lifestyle measures such as a low-salt diet, hydration, and physical activity. We confirmed the patient is taking Memantine for memory as started by neurology. We also discussed the use of Advair for COPD, and I advised the patient to use it as needed for infrequent symptoms but to increase to regular use if breathing is not well-controlled. I reassured the patient that they have existing refills for their constipation medication (Senna). Patient Instructions - Await contact from the emergency department aide, Dr. Polk, regarding the plan for your pancreatic cysts. - Continue taking Memantine (one pill in the morning, one in the evening) for memory as prescribed by your neurologist. - Continue your atorvastatin 40 mg daily for cholesterol. - Continue your Lexapro for anxiety. - Use your Advair inhaler if you feel short of breath. If your shortness of breath is not well controlled, you should use it daily. - You have refills for your constipation medication (Senna) at [facility]. - To help keep your blood pressure healthy, continue to drink plenty of water, eat a low-salt diet, and stay active. - We discussed the need for a follow-up bone density scan. - Please be careful, as snow is expected tonight and tomorrow. Medications: Refilled sennosides-docusate sodium 8.6-50 mg (Senna with Docusate Sodium) 2 tab-caps (2 x 8.6-50 mg) PO BEDTIME 60 tabs 12RF 30 days K59.00 - Constipation, unspecified
--- OUTSIDE RECORDS SUMMARY | 2025-10-03 17:32 | XMS_ITS | Clinical Summary ---
Author Organization [facility] Address [address] [facility] [address] [place] [address] Care Team Providers Care Care Management Specialist Name Role Phone Abby Potter MD Primary Care Provider [phone] Social History Tobacco Use Types Packs/Day Years [...] age to complete this topic HPV Vaccines (No Doses Required) Completed Hepatitis A Vaccines Aged Out No long [...] topic Insurance [facility] Care Teams Care Management Specialist Relationship Specialty Start Date End Date Abby Potter MD [address] [place] [address] PCP - General 08/10/24
--- OUTSIDE RECORDS SUMMARY | 2025-10-03 17:32 | XMS_ITS | Clinical Summary ---
Author Organization [facility] Address [address] [place] [address] Care Team Providers Care Track Maintainer Name Role Phone TariqAbby Monico Primary Care Provider [phone] Allergies Active Allergy Reactions Criticality Noted Date [...] Type Department Care Team Description 07/07/2025 Telephone [facility] [address] [place] [phone] Inside Sales Assistant: Marlena Hurst Telephone Intake, Staff PAC Clinical [...] Info) Description 11/07/2025 9:30 AM EST Follow-Up [facility] [address] [place] [phone] Inside Sales Assistant: Carlos Diop MD [address] [place] [phone] 12/20/2025 9:00 AM EST Clinical Support [facility] [address] [place] [address] Inside Sales Assistant: Marlena Hurst Health Maintenance Due Date Last [...] complete this topic Procedures * Due to [place] law, this organization might not be sharing negative HIV tests. Procedure Name Priority Date/Time Associated Diagnosis Comments DEXA SCAN 10/31/2023 from Last 3 Months or Most Recently Relevant to Health Maintenance Results * Due to [place] law, this organization might not be sharing negative HIV tests. * Dexa Scan (10/31/2023) Anatomical Region Laterality Modality Other 10/31/2023 us Onbase Scan [facility] Final Resu lt from Last 3 Months or Most Recently Relevant to Health Maintenance Insurance MEDICARE [facility] Care Teams Track Maintainer Relationship Specialty Start Date End Date Abby Potter [address] [place] [address] [place] [address] PCP - General Internal Medicine 04/14/24
--- OUTSIDE RECORDS SUMMARY | 2025-10-03 17:32 | XMS_ITS | Encounter Summary ---
Author Organization [facility] Address [address] [place] [address] Care Team Providers Care Senior Maintenance Machinist Name Role Phone TariqMarleeelidia Marc Primary Care Provider [phone] Reason for Visit * Reason Onset Date Comments PAC Patient Request Call Back 06/08/2024 Encounter Details Date Type Department Care Team (Late st Contact Info) Description 06/08/2024 Telephone [facility] [address] [place] [phone] Telephone Intake, Staff PAC Patient Request Call [...] for 9am. Patient can be reached at [phone]. Thank you - PAC documented in this encounter Plan of Treatment Upcoming Encounters Date Type Department Care Team (Late st Contact Info) Description 11/07/2025 9:30 AM EST Follow-Up [facility] [address] [place] [address] Recovery Auditor: Carlos Diop MD [address] [place] [phone] 12/20/2025 9:00 AM EST Clinical Support [facility] [address] [place] [phone] Recovery Auditor: Marlena Hurst documented as of this encounter Visit Diagnoses Not on filedocumented in this encounter Care Teams Senior Maintenance Machinist Relationship Specialty Start Date End Date Abby Potter [address] [place] [address] [place] [address] PCP - General Internal Medicine 04/14/24 documented as of this encounter
--- OUTSIDE RECORDS SUMMARY | 2025-10-03 17:33 | XMS_ITS | Clinical Summary ---
Author Organization [facility] Address [address] [place] [phone] Phone Care Team Providers Care Sheet Rock Taper Name Role Phone Vernon Mojica MD Primary [...] and muscle strengthening exercises. Follow closely with industrial machine system technician as scheduled Visit for monitoring Reclast [...] Continue as prescribed. Close follow-up with treating/prescribing senior software manager Assessment & Plan (01/06/2020 1:22 PM EST): Continue as prescribed. Close follow-up with treating/prescribing senior software manager Assessment & Plan (03/31/2019 8:43 AM EDT): Continue as prescribed. Close follow-up with treating/prescribing senior software manager Primary osteoarthritis involving multiple joints 10/06/2017 [...] Formulation 11/10(Deferred: Other - , Ordered By: [id number]),08/03/2012 Pneumococcal conjugate PCV13 06/22/2015 Pneumococcal polysaccharide PPSV23 [...] bone mineral density since 2018. POS - [id number] Narrative 04/20/2019 9:11 AM EDT This is [...] at L3-4 and was calculated at 0.667 gm/ho3mpkt a T-score of - 2.8 and Z-score of -0.8, falling within the WHOclassification of osteoporosis, representing an interval decline of 3.2%since 2018 which is not felt to be within the range of statisticalsignificance.. Total bone mineral density in the right hip was calculated at 0.675 gm/dr6ouoi a T-score of -2.2 and Z-score of [...] hip bone mineral densitysince 2018. POS - [id number] us Johnna I Klich-Navneet MD IMG BD BONE DENSITY DEXA Final Result * (ABNORMAL) Historical Lab (02/23/2013 10:57 AM EDT) Thyroid Stimulating Hormone 0.09(Abno rmally L) 0.40 - 5.00 uU/ml [facility] 02/23/2013 10:5 7 AM EDT 02/23/2013 1:14 PM EDT Comment:BLOOD us Micheal Larsen MD LAB BLOOD ORDERABLES Final Result [address] [id number] from Last 3 Months or Most Recently Relevant to Health Maintenance Insurance MEDICARE PART A & B [facility] MEDIC[facility] ENHANCE SUPPLEMENT [facility] Address: [facility] [address] [address] [id number] MEDICARE PART A & B [facility] MEDICARE ENHANCE SUPPLEMENT MEDICARE PART A & B [facility] MEDICARE ENHANCE SUPPLEMENT MEDICARE PART A & B MEDICARE ENHANCE SUPPLEMENT MEDICARE PART A & B [id number] [place] [address] MEDICARE ENHANCE SUPPLEMENT MEDICARE PART A & B [facility] MEDICARE ENHANCE SUPPLEMENT MEDICARE PART A & B [facility] MEDICARE ENHANCE SUPPLEMENT MEDICARE PART A & B [facility] MEDICARE ENHANCE SUPPLEMENT MEDICARE PART A & B [facility] MEDICARE ENHANCE SUPPLEMENT MEDICARE PART A & B [facility] MEDICARE ENHANCE SUPPLEMENT Care Teams Sheet Rock Taper Relationship Specialty Start Date End Date Vernon Mojica MD [address] [place] [address] NADIASAAD MURPHY [id number] PCP - General Internal Medicine 07/03/22 Additional Source Comments The information contained in this document represents components of the legal health record. It is not the complete legal health record.[facility]
== END 2025-10-03 15:23 | disposition home or self-care (01) ==
LOC: HO.HMCH 14:09
PROVIDERS: PCP Internal Medicine; Visit Provider Internal Medicine
DX: M81.0 Age-related osteoporosis without current pathological fracture (principal); E78.5 Hyperlipidemia, unspecified; J41.0 Simple chronic bronchitis; F41.1 Generalized anxiety disorder; K21.00 Gastro-esophageal reflux disease with esophagitis, without bleeding; G31.84 Mild cognitive impairment of uncertain or unknown etiology

== ENCOUNTER → 2025-10-03 14:08 | Outpatient (BNVA) | payer MEDICARE, OTHER, SELFPAY | PROVIDERS: Visit Provider Internal Medicine | DX: M81.0 Age-related osteoporosis without current pathological fracture (principal); E78.5 Hyperlipidemia, unspecified; F41.1 Generalized anxiety disorder; K21.00 Gastro-esophageal reflux disease with esophagitis, without bleeding; J41.0 Simple chronic bronchitis; G31.84 Mild cognitive impairment of uncertain or unknown etiology | CPT/HCPCS: 99212 ==

== ENCOUNTER 2025-10-05 13:55 | Outpatient (AMB) | payer MEDICARE, OTHER, SELFPAY ==
--- NOTE | 2025-10-05 13:58 | A.OFFVIS_ITS ---
Vital Signs 3 10/05/25 14:00 Height 5 ft Weight 110 lb 3.698 oz BMI 21.5 BP 122/61 Blood Pressure Location Lt brachial Position Sitting Pulse 69 Intake Visit Reasons: f/u GERD Panc Cyst Intake Note: Adelina presents in the office as a follow up for her pancreatic cyst and GERD. CC: She denies all Gi symptoms at this time and says GERD is better. Allergies naproxen (From NAPROSYN) Allergy (Severe, Verified 10/05/25 14:01) sensitivity niacin (From NIASPAN EXTENDED-RELEASE) Allergy (Severe, Verified 10/05/25 14:01) Rash clarithromycin (From BIAXIN) Allergy (Mild, Verified 10/05/25 14:01) sensitivity codeine (CODEINE) Allergy (Mild, Verified 10/05/25 14:01) Itching esomeprazole (From Nexium) Allergy (Mild, Verified 10/05/25 14:01) Hives fluconazole (From DIFLUCAN) Allergy (Mild, Verified 10/05/25 14:01) sensitivity gatifloxacin (From TEQUIN) Allergy (Mild, Verified 10/05/25 14:01) sensitivity hydrocodone (From Vicodin) Allergy (Mild, Verified 10/05/25 14:01) Rash levofloxacin (From Levaquin) Allergy (Mild, Verified 10/05/25 14:01) sensitivity oxycodone (From Percocet) Allergy (Mild, Verified 10/05/25 14:01) Itching quinidine (QUINIDINE) Allergy (Mild, Verified 10/05/25 14:01) sensitivity Sulfa (Sulfonamide Antibiotics) (SULFA (SULFONAMIDE ANTIBIOTICS)) Allergy (Mild, Verified 10/05/25 14:01) Rash terfenadine (From SELDANE) Allergy (Mild, Verified 10/05/25 14:01) sensitivity tetracycline (TETRACYCLINE) Allergy (Mild, Verified 10/05/25 14:01) sensitivity amitriptyline Allergy (Unknown, Verified 10/05/25 14:01) Unknown cefaclor (From CECLOR) Adverse Reaction (Severe, Verified 10/05/25 14:01) Unknown abaloparatide (From Tymlos) Adverse Reaction (Intermediate, Verified 10/05/25 14:01) Dizziness bupropion (From Wellbutrin) Adverse Reaction (Intermediate, Verified 10/05/25 14:01) Nausea cefdinir Adverse Reaction (Intermediate, Verified 10/05/25 14:01) Stomach Upset montelukast (From Singulair) Adverse Reaction (Mild, Verified 10/05/25 14:01) Headache topiramate (From TOPAMAX) Adverse Reaction (Mild, Verified 10/05/25 14:01) Stomach Upset HPI Comments Details: This is a 79-year-old female with past medical history of nonobstructive coronary disease, 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 Patient's main complaint are epigastric discomfort that occasionally radiates to her back x 6 months. Associated with increased belching. More pronounced when she hasnt eaten anything for a few hours. Does not report any decrease in appetite, nausea, vomiting. No unintentional weight loss. No previous history of AIP. No history of alcohol use disorder tobacco use disorder. No family history of pancreatic cancer. 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 LIVER: The liver is normal in size. The liver contour is normal. Parenchymal echogenicity is normal. There is anechoic cyst in the left hepatic lobe with septations measuring 2.2 x 1.1 x 2.0 cm. There is no intrahepatic biliary duct dilatation seen. In addition, pt also reports occasional reflux for which she is on famotidine. As well as constipation, reports sometimes can go without a BM x3-4 days unless she is taking stool softener. Despite that passes small moses, frequent straining. Bloating +. 10/05/25: Here for follow up for MRI results. Liver: There is no loss of signal intensity in the liver on opposed phase imaging to suggest steatosis. Liver is normal in size and contour. Several liver cysts. Largest cyst measures 11 x 14 mm in the left lobe segment 2 for example axial image 12 series 5. They have a single thin enhancing septation for example axial image 24 series 21. Other smaller simple appearing liver cysts. 7 mm low signal T1 and high signal T2 homogeneously enhancing lesion that remains enhanced on the later sequences following blood pool signal in the left lobe segment 2. This probably represents a benign hemangioma for example axial image 23 series 20. The hepatic and portal veins are patent. There is no intrahepatic biliary dilatation. Gallbladder/biliary tree: No gallstones are identified. The common bile duct is normal in caliber. No intraluminal filling defects are identified to suggest choledocholithiasis. Spleen: The spleen is normal in size. 6 mm low signal T1 and high signal T2 nonenhancing lesion compatible with a cyst in the inferior spleen. 6 mm low signal T1 high signal T2 lesion in the superior lateral spleen. This demonstrates late homogeneous enhancement and probably represents a hemangioma. Pancreas: There are multiple pancreatic cysts. Largest cyst measures 9 x 7 x 10 mm in the neck of the pancreas. This abuts the main pancreatic duct. Numerous additional smaller cysts largest measuring 4 x 8 mm in the tail of the pancreas for example coronal T2 image 16 series 3 and 3 x 7 mm in the neck of the pancreas coronal T2 image 26 series 3 no solid pancreatic mass. No main pancreatic duct dilatation. No pancreatic duct filling defect. There may be variant pancreatic ductal anatomy with a persistent duct of Santorini. Reviewed that although has multiple panc cysts the largest one measures 9x 10 mm. Recommend repeat MRI in 6 months to assess for any interval growth. The patient reports having a palpable lump in the abdominal area, which has been mentioned to the patient's primary care provider previously. --- Pt was informed and consented to the use of ambient scribe for this encounter. --- [facility] Medical History Palpitation Abdominal pain MCI (mild cognitive impairment) Migraine with aura, with intractable migraine, so stated, with status migrainosus Depression Hiatal hernia Anxiety and depression Neck pain Cervical disc disease Muscle tension headache Paresthesia of skin MCI (mild cognitive impairment) with memory loss Vertigo Myopathy Unspecified optic neuritis Memory change Mgrn w aura w intrc mgrn Sinusitis Stroke Migraine Carpal tunnel syndrome Hemiparesis Chest pain Sinus congestion Cough Weight loss Polyarthralgia Fall Shoulder pain, right Back pain Nausea Headache, post-traumatic, acute Scalp irritation Anemia Encounter for vitamin deficiency screening Renal cyst Dense breast Breast cancer screening by mammogram Acute bronchitis Ocular migraine Hyperlipidemia History of CVA (cerebrovascular accident) (~2020) Tubular adenoma of colon (~2005) SERG (obstructive sleep apnea) Nasal vestibulitis Degeneration, intervertebral disc, cervical Dry eye PONV (postoperative nausea and vomiting) Arthritis of neck Cerebral microvascular disease Atherosclerotic cardiovascular disease Precordial chest pain URI (upper respiratory infection) Overactive bladder Microscopic hematuria Urinary urgency Osteoporosis (~1999) Mycobacterial disease GERD (gastroesophageal reflux disease) Pulmonary nodules COPD (chronic obstructive pulmonary disease) Surgical History History of fusion of cervical spine History of sinus surgery History of colonoscopy History of esophagogastroduodenoscopy (EGD) History of bladder suspension procedure Family History Son No problems noted. Social History Household Members: [facility] Do you presently have visiting nurse or other home services: No Alcohol intake: never Patient Tobacco Use Status: Never used Tobacco Tobacco use type: Cigarette Years Smoked: parent and smoker e-Cigarette/Vaping Use: Never Used Second Hand Smoke Exposure: Yes Advance Directives Date on File: 08/16/20 service: No Current occupational status: retired Current occupation: right hand Cognitive needs: No Hearing needs: Yes (hearing aides) Vision needs: Yes (Glasses) Review of Systems Const All systems reviewed & are unremarkable except as noted in HPI and below Physical Exam Exam Exam: No apparent distress Nonicteric Abdomen soft, nondistended Derm L lower back with ovoid 5 mm subdermal fixed nodule Alert and oriented x3, normal gait Vital Signs: Last Vital Signs Pulse 69 10/05/25 14:00 BP 122/61 10/05/25 14:00 BMI result Body Mass Index 21.5 Skin Full body images: 2 1. subdermal ovoid nodule Assessment & Plan Assessment & Plan (1) Pancreatic cyst: Code(s): K86.2 - Cyst of pancreas Category: Medical (2) Skin nodule: Code(s): R22.9 - Localized swelling, mass and lump, unspecified Plan 1. Pancreatic cysts Reviewed that panc cysts of this size can be surveilled in a year however given pt's apprehension re these, can repeat MRI in 6 months. If size stable, will revert to q1y interval for surveillance. 2. Subdermal lesion Advised to review with PCP or Derm for evaluation Follow up 6 months after MRI Orders: Orders 2 MR abdomen wo/w con 03/06/26 K86.2 - Cyst of pancreas Coding Level of Care Code Est Pt Level 4 (22986) Diagnoses Pancreatic cyst K86.2 Skin nodule R22.9
[2025-10-05 14:00] VITALS: BP 122/61; PULSE 69; BMI 21.5
--- OUTSIDE RECORDS SUMMARY | 2025-10-05 16:41 | XMS_ITS | Clinical Summary ---
Author Organization [facility] Address [address] [facility] Iwona Croft [facility] [address] [place] [address] Care Team Providers Care Sculpture Instructor Name Role Phone Abby Potter MD Primary Care Provider [phone] Social History Tobacco Use Types Packs/Day Years [...] Scan Completed 04/20/2019 Zoster Vaccines Completed 10/03/2020, 1107/2020, 07/20/2020, Additional [...] topic Insurance [facility] Care Teams Sculpture Instructor Relationship Specialty Start Date End Date Abby Potter MD [address] [place] [address] PCP - General 08/10/24
--- OUTSIDE RECORDS SUMMARY | 2025-10-05 16:42 | XMS_ITS | Encounter Summary ---
Author Organization [facility] Address [address] [place] [address] Care Team Providers Care Semiconductor Bonder Name Role Phone TariqMarleeelidia Marc Primary Care Provider [phone] Reason for Visit * Reason Onset Date Comments PAC Patient Request Call Back 06/08/2024 Encounter Details Date Type Department Care Team (Late st Contact Info) Description 06/08/2024 Telephone [facility] Patient Access Center [address] [place] [address] Telephone Intake, Staff PAC Patient Request Call [...] for 9am. Patient can be reached at [phone]. Thank you - PAC documented in this encounter Plan of Treatment Upcoming Encounters Date Type Department Care Team (Late st Contact Info) Description 11/07/2025 9:30 AM EST Follow-Up [facility] [address] [place] [address] Installation Superintendent: Carlos Diop MD [address] [place] [address] 12/20/2025 9:00 AM EST Clinical Support [facility] [address] [place] [address] Installation Superintendent: Marlena Hurst documented as of this encounter Visit Diagnoses Not on filedocumented in this encounter Care Teams Semiconductor Bonder Relationship Specialty Start Date End Date Abby Potter [address] [place] [address] [place] [address] PCP - General Internal Medicine 04/14/24 documented as of this encounter
--- OUTSIDE RECORDS SUMMARY | 2025-10-05 16:42 | XMS_ITS | Clinical Summary ---
Author Organization [facility] Address [address] [place] [address] Care Team Providers Care Artistic Director Name Role Phone TariqAbby Monico Primary Care Provider [phone] Allergies Active Allergy Reactions Criticality Noted Date [...] Type Department Care Team Description 07/07/2025 Telephone [facility] [address] [place] [address] Color Matcher: Marlena Hurst Telephone Intake, Staff PAC Clinical [...] Info) Description 11/07/2025 9:30 AM EST Follow-Up [facility] [address] [place] [address] Color Matcher: Carlos Diop MD [address] [place] [address] 12/20/2025 9:00 AM EST Clinical Support [facility] [address] [place] [address] Color Matcher: Marlena Hurst Health Maintenance Due Date Last [...] complete this topic Procedures * Due to [place] law, this organization might not be sharing negative HIV tests. Procedure Name Priority Date/Time Associated Diagnosis Comments DEXA SCAN 10/31/2023 from Last 3 Months or Most Recently Relevant to Health Maintenance Results * Due to [place] law, this organization might not be sharing negative HIV tests. * Dexa Scan (10/31/2023) Anatomical Region Laterality Modality Other 10/31/2023 us Onbase Scan [facility] Final Resu lt from Last 3 Months or Most Recently Relevant to Health Maintenance Insurance MEDICARE [facility] Care Teams Artistic Director Relationship Specialty Start Date End Date Abby Potter [address] [place] [address] [place] [address] PCP - General Internal Medicine 04/14/24
--- OUTSIDE RECORDS SUMMARY | 2025-10-05 16:42 | XMS_ITS | Clinical Summary ---
Author Organization [facility] Address [address] [place] [address] Phone Care Team Providers Care Chainstitch Zipper Setter Name Role Phone Vernon Mojica MD Primary [...] and muscle strengthening exercises. Follow closely with pony worker as scheduled Visit for monitoring Reclast therapy [...] as prescribed. Close follow-up with treating/prescribing senior sales engineer Assessment & Plan (01/06/2020 1:22 PM EST): Continue as prescribed. Close follow-up with treating/prescribing senior sales engineer Assessment & Plan (03/31/2019 8:43 AM EDT): Continue as prescribed. Close follow-up with treating/prescribing senior sales engineer Primary osteoarthritis involving multiple joints 10/06/2017 Assessment [...] Formulation 11/10(Deferred: Other - , Ordered By: [id number]),08/03/2012 Pneumococcal conjugate PCV13 06/22/2015 Pneumococcal polysaccharide PPSV23 [...] bone mineral density since 2018. POS - [id number] Narrative 04/20/2019 9:11 AM EDT This is [...] at L3-4 and was calculated at 0.667 gm/gm8gvdy a T-score of - 2.8 and Z-score of -0.8, falling within the WHOclassification of osteoporosis, representing an interval decline of 3.2%since 2018 which is not felt to be within the range of statisticalsignificance.. Total bone mineral density in the right hip was calculated at 0.675 gm/eo1xrgm a T-score of -2.2 and Z-score of [...] hip bone mineral densitysince 2018. POS - [id number] us Johnna I Klich-Navneet MD IMG BD BONE DENSITY DEXA Final Result * (ABNORMAL) Historical Lab (02/23/2013 10:57 AM EDT) Thyroid Stimulating Hormone 0.09(Abno rmally L) 0.40 - 5.00 uU/ml [facility] 02/23/2013 10:5 7 AM EDT 02/23/2013 1:14 PM EDT Comment:BLOOD us Micheal Larsen MD LAB BLOOD ORDERABLES Final Result [address] [address] from Last 3 Months or Most Recently Relevant to Health Maintenance Insurance MEDICARE PART A & B [employer]IC[employer] ENHANCE SUPPLEMENT [facility] Address: [facility] [id number] [place] [place] [id number] MEDICARE PART A & B [facility] MEDICARE ENHANCE SUPPLEMENT MEDICARE PART A & B [facility] MEDICARE ENHANCE SUPPLEMENT MEDICARE PART A & B MEDICARE ENHANCE SUPPLEMENT MEDICARE PART A & B [id number] [place] [address] MEDICARE ENHANCE SUPPLEMENT MEDICARE PART A & B [facility] MEDICARE ENHANCE SUPPLEMENT MEDICARE PART A & B [facility] MEDICARE ENHANCE SUPPLEMENT MEDICARE PART A & B [facility] MEDICARE ENHANCE SUPPLEMENT MEDICARE PART A & B [facility] MEDICARE ENHANCE SUPPLEMENT MEDICARE PART A & B [facility] MEDICARE ENHANCE SUPPLEMENT Care Teams Chainstitch Zipper Setter Relationship Specialty Start Date End Date Vernon Mojica MD [address] [place] [address] NADIASAAD MURPHY [phone] PCP - General Internal Medicine 07/03/22 Additional Source Comments The information contained in this document represents components of the legal health record. It is not the complete legal health record.[facility]
== END 2025-10-05 14:28 | disposition home or self-care (01) ==
LOC: HO.HGI 13:55
PROVIDERS: PCP Internal Medicine; Visit Provider Internal Medicine
DX: K86.2 Cyst of pancreas (principal); R22.9 Localized swelling, mass and lump, unspecified
CPT/HCPCS: 99214

== ENCOUNTER → 2025-10-05 13:55 | Outpatient (BNVA) | payer MEDICARE, OTHER, SELFPAY | PROVIDERS: PCP Internal Medicine; Visit Provider Internal Medicine | DX: K86.2 Cyst of pancreas (principal); K21.9 Gastro-esophageal reflux disease without esophagitis; R22.9 Localized swelling, mass and lump, unspecified; Z79.01 Long term (current) use of anticoagulants | CPT/HCPCS: 99212 ==

== ENCOUNTER 2025-11-01 07:55 | Outpatient (REF) | payer MEDICARE, OTHER, SELFPAY ==
--- NOTE | ~2025-11-01 | MM_ITS ---
EXAMINATION: DXA BONE DENSITY AXIAL HISTORY: M81.0 - Age-related osteoporosis without current pathological fracture TECHNIQUE: EventKloud Dual energy absorptiometry (DEXA) of the lumbar spine, total left hip, and femoral neck was performed. COMPARISON: Comparison is made with the prior examination dated 10/31/2023. FINDINGS: The bone mineral density of the lumbar spine is 1.186 g/cm2, corresponding to a T-score of 0.0, and a Z-score of 2.4. This is indicative of normal bone mineral density. This represents a BMD change of 11.3% compared to the prior exam. This is statistically significant. The bone mineral density of the left total hip is 0.671 g/cm2, corresponding to a T-score of -2.7, and a Z-score of -0.4. This is indicative of osteoporosis. This represents a BMD change of 30.0% compared to the prior exam. This is statistically significant. The bone mineral density of the left femoral neck is 0.603 g/cm2, corresponding to a T-score of -3.1, and a Z-score of -0.7. This is indicative of osteoporosis. This represents a BMD change of 47.8% compared to the prior exam. FRACTURE RISK: The FRAX index suggests a ten year probability of major osteoporotic fracture of 38.8%, and of hip fracture 17.9%. MM/XR DEXA axial skeleton IMPRESSION: Based on bone mineral density, and according to World Health Organization (WHO) criteria, the diagnosis is consistent with osteopenia. Statistically, 68% of repeat scans fall within 1 SD (+/- 0.010 g/cm2 for AP spine L1-L4) and 1 SD (+/- 0.012 g/cm2 for femur total) FRAX is a trademark of the [employer]'s [place] [employer] Metabolic Bone Disease, a World Health Organization (WHO) Collaborating Center. Electronically signed by: Augie Jose MD 11/01/2025 10:28 AM [facility]
--- OUTSIDE RECORDS SUMMARY | 2025-11-01 09:19 | XMS_ITS | Clinical Summary ---
Author Organization [facility] Address [address] [place] [address] Phone Care Team Providers Care Principal Cloud Architect Name Role Phone Vernon Mojica MD Primary [...] and muscle strengthening exercises. Follow closely with admeasurer as scheduled Visit for monitoring Reclast therapy [...] Continue as prescribed. Close follow-up with treating/prescribing surfacer Assessment & Plan (01/06/2020 1:22 PM EST): Continue as prescribed. Close follow-up with treating/prescribing surfacer Assessment & Plan (03/31/2019 8:43 AM EDT): Continue as prescribed. Close follow-up with treating/prescribing surfacer Primary osteoarthritis involving multiple joints 10/06/2017 Assessment [...] Formulation 11/10(Deferred: Other - , Ordered By: [id number]),08/03/2012 Pneumococcal conjugate PCV13 06/22/2015 Pneumococcal polysaccharide PPSV23 [...] bone mineral density since 2018. POS - [id number] Narrative 04/20/2019 9:11 AM EDT This is [...] at L3-4 and was calculated at 0.667 gm/bg4dpck a T-score of - 2.8 and Z-score of -0.8, falling within the WHOclassification of osteoporosis, representing an interval decline of 3.2%since 2018 which is not felt to be within the range of statisticalsignificance.. Total bone mineral density in the right hip was calculated at 0.675 gm/hw0nrwg a T-score of -2.2 and Z-score of [...] hip bone mineral densitysince 2018. POS - [id number] us Johnna I Klich-Navneet MD IMG BD BONE DENSITY DEXA Final Result * (ABNORMAL) Historical Lab (02/23/2013 10:57 AM EDT) Thyroid Stimulating Hormone 0.09(Abno rmally L) 0.40 - 5.00 uU/ml [facility] 02/23/2013 10:5 7 AM EDT 02/23/2013 1:14 PM EDT Comment:BLOOD us Micheal Larsen MD LAB BLOOD ORDERABLES Final Result [address] [id number] from Last 3 Months or Most Recently Relevant to Health Maintenance Insurance MEDICARE PART A & B [employer] MEDICARE ENHANCE SUPPLEMENT [facility] Address: [facility] [id number] [place] [id number] MEDICARE PART A & B [facility] MEDICARE ENHANCE SUPPLEMENT MEDICARE PART A & B [facility] MEDICARE ENHANCE SUPPLEMENT MEDICARE PART A & B MEDICARE ENHANCE SUPPLEMENT MEDICARE PART A & B [id number] [place] [address] MEDICARE ENHANCE SUPPLEMENT MEDICARE PART A & B [facility] MEDICARE ENHANCE SUPPLEMENT MEDICARE PART A & B [facility] MEDICARE ENHANCE SUPPLEMENT MEDICARE PART A & B [facility] MEDICARE ENHANCE SUPPLEMENT MEDICARE PART A & B [facility] MEDICARE ENHANCE SUPPLEMENT MEDICARE PART A & B [facility] MEDICARE ENHANCE SUPPLEMENT Care Teams Principal Cloud Architect Relationship Specialty Start Date End Date Vernon Mojica MD [address] [place] [address] NADIASAAD MURPHY [id number] PCP - General Internal Medicine 07/03/22 Additional Source Comments The information contained in this document represents components of the legal health record. It is not the complete legal health record.[facility]
--- OUTSIDE RECORDS SUMMARY | 2025-11-01 09:19 | XMS_ITS | Clinical Summary ---
Author Organization [facility] Address [address] [place] [address] Care Team Providers Care Commission Agent Livestock Name Role Phone TariqAbby Monico Primary Care [...] Info) Description 11/07/2025 9:30 AM EST Follow-Up [facility] [address] [place] [phone] Rubbing Bed Operator: Carlos Diop MD [address] [place] [address] [phone] 12/20/2025 9:00 AM EST Clinical Support [facility] [address] [place] [address] Rubbing Bed Operator: Marlena Hurst Health Maintenance Due Date Last [...] Screening 11/03/2042 03/03/2025 Zoster Vaccines Completed 10/03/2020, 07/2020, 07/20/2020, Additional history exists RSV Vaccine (60+ years old and patients) Completed 08/05/2023 Osteoporosis Screening Completed 3, 10/31/2023, 04/20/2019, Additional history exists Pneumococcal Vaccine: 50+ Years Completed 03/05/2024, 06/22/2015, 11/17/2013 Hepatitis B Vaccines Aged Out No long er eligible based on patient's age to complete this topic Procedures * Due to [place] [employer] law, this organization might not be sharing negative HIV tests. Procedure Name Priority Date/Time Associated Diagnosis Comments HM DEXA SCAN 10/31/2023 from Last 3 Months or Most Recently Relevant to Health Maintenance Results * Due to [place] [employer] law, this organization might not be sharing negative HIV tests. * Dexa Scan (10/31/2023) Anatomical Region Laterality Modality Other 10/31/2023 us Onbase Scan [facility] MAINTENANCE Final Resu lt from Last 3 Months or Most Recently Relevant to Health Maintenance Insurance MEDICARE [facility] Care Teams Commission Agent Livestock Relationship Specialty Start Date End Date Abby Potter [address] [place] [address] [place] [address] PCP - General Internal Medicine 04/14/24
--- OUTSIDE RECORDS SUMMARY | 2025-11-01 09:19 | XMS_ITS | Clinical Summary ---
Author Organization [facility] Address [address] [facility] Iwona Croft [facility] [address] [place] [address] Care Team Providers Care Dope House Operator Helper Name Role Phone Abby Potter MD Primary Care Provider [phone] Social History Tobacco Use Types Packs/Day Years [...] topic [facility] Care Teams Dope House Operator Helper Relationship Specialty Start Date End Date Abby Potter MD [address] [place] [address] PCP - General 08/10/24
--- OUTSIDE RECORDS SUMMARY | 2025-11-01 09:19 | XMS_ITS | Encounter Summary ---
Author Organization [facility] Address [address] [place] [address] Care Team Providers Care Curatorial Specialist Name Role Phone TariqMarleeelidia Marc Primary Care Provider [phone] Reason for Visit * Reason Onset Date Comments PAC Patient Request Call Back 06/08/2024 Encounter Details Date Type Department Care Team (Late st Contact Info) Description 06/08/2024 Telephone [facility] Patient Access Center [address] [place] [address] Telephone Intake, Staff PAC Patient Request Call [...] for 9am. Patient can be reached at [phone]. Thank you - PAC documented in this encounter Plan of Treatment Upcoming Encounters Date Type Department Care Team (Late st Contact Info) Description 11/07/2025 9:30 AM EST Follow-Up [facility] [address] [place] [address] Drawer In Stitch Bonding Machine: Carlos Diop MD [address] [place] [phone] 12/20/2025 9:00 AM EST Clinical Support [facility] [address] [place] [address] Drawer In Stitch Bonding Machine: Marlena Hurst documented as of this encounter Visit Diagnoses Not on filedocumented in this encounter Care Teams Curatorial Specialist Relationship Specialty Start Date End Date Abby Potter [address] [place] [address] [place] [address] PCP - General Internal Medicine 04/14/24 documented as of this encounter
== END 2025-11-01 07:56 | disposition home or self-care (01) ==
LOC: HO.MAMMO 07:55
PROVIDERS: PCP Internal Medicine; Visit Provider Internal Medicine
DX: M81.0 Age-related osteoporosis without current pathological fracture (principal)
CPT/HCPCS: 77080

== ENCOUNTER → 2025-11-01 08:15 | Outpatient (BNV) | payer MEDICARE, OTHER, SELFPAY | PROVIDERS: PCP Internal Medicine; Visit Provider Radiology Diagnostic Radiology | DX: E28.39 Other primary ovarian failure (principal) | CPT/HCPCS: 77080 ==

== ENCOUNTER 2025-11-02 08:50 | Outpatient (AMB) | payer MEDICARE, OTHER, SELFPAY ==
--- OUTSIDE RECORDS SUMMARY | 2025-11-02 08:57 | XMS_ITS | Encounter Summary ---
Author Organization [facility] Prior to 09/03/2024 Address [address] [place] [address] Care Team Providers Care Drop Man Name Role Phone Lavell Marcos MD Primary Care Provider [phone] Jennifer Sylvester MD Primary Care Provider [phone] [facility], Pcp Primary Care Provider Unavailabl e Reason for Visit * Reason Onset Date Comments Faxed Refill 12/08/2018 Encounter Details Date Type Department Care Team Description 12/08/2018 Refill Pulmonology - [place] [address] [facility] [address] [place] [address] Eduardo Lino MD Faxed Refill [...] on filedocumented in this encounter Care Teams Drop Man Relationship Specialty Start Date End Date Lavell Marcos MD [address] [place] [address] [phone] PCP - General 04/06/07 02/08/21 Jennifer Sylvester MD [address] [place] [address] 21882 PCP - General Internal Medicine 02/09/21 01/22/[address] [address] PCP - General Internal Medicine 01/23/23 documented as of this encounter
--- OUTSIDE RECORDS SUMMARY | 2025-11-02 08:57 | XMS_ITS | Encounter Summary ---
Author Organization [facility] Prior to 09/03/2024 Address [address] [place] [address] Care Team Providers Care Oracle Distribution Consultant Name Role Phone Lavell Marcos MD Primary Care Provider Jennifer Sylvester MD Primary Care Provider [phone] [facility], Pcp Primary Care [facility] Encounter Details Date Type Department Care Team Description 03/09/2020 Medical Record Coder Report Medical Records [address] [place] [address] Rafat Gregorio MD Social History Tobacco Use [...] on filedocumented in this encounter Care Teams Oracle Distribution Consultant Relationship Specialty Start Date End Date Lavell Marcos MD [address] [place] [address] 283[address] PCP - General 04/06/07 02/08/21 Jennifer Sylvester MD [address] [place] [address] 93073 PCP - General Internal Medicine 02/09/21 01/22/23 [facility], Pcp [address] [place] [address] 91470 PCP - General Internal Medicine 01/23/23 documented as of this encounter
--- OUTSIDE RECORDS SUMMARY | 2025-11-02 08:57 | XMS_ITS | Encounter Summary ---
Author Organization [facility] Prior to 09/03/2024 Address [address] [place] [address] Care Team Providers Care Clinic Business Manager Name Role Phone Lavell Marcos MD Primary Care Provider [phone] Jennifer Sylvester MD Primary Care Provider [phone] [facility], Pcp Primary Care Provider [facility] Encounter Details Date Type Department Care Team Description 01/25/2021 Welding Supervisor Report Medical Records [address] [place] [address] Bib Sandoval MD Social History Tobacco Use [...] on filedocumented in this encounter Care Teams Clinic Business Manager Relationship Specialty Start Date End Date Lavell Marcos MD [address] [place] [address] PCP - General 04/06/07 02/08/21 Jennifer Sylvester MD [address] [place] [address] 37335 PCP - General Internal Medicine 02/09/21 01/22/23 [facility], Pcp [address] [place] [address] 61365 PCP - General Internal Medicine 01/23/23 documented as of this encounter
--- OUTSIDE RECORDS SUMMARY | 2025-11-02 08:57 | XMS_ITS | Encounter Summary ---
Author Organization [facility] Prior to 09/03/2024 Address [address] [place] [address] Care Team Providers Care Casting Trucker Name Role Phone Jennifer Sylvester MD Primary Care Provider [phone] [facility], Pcp Primary Care Provider Unavailabl e Encounter Details Date Type Department Care Team Description 06/25/2021 Coffee Taster Report Medical Records [address] [place] [address] Chris [facility] MD Social History Tobacco Use [...] on filedocumented in this encounter Care Teams Casting Trucker Relationship Specialty Start Date End Date Jennifer Sylvester MD [address] [place] [address] [phone] PCP - General Internal Medicine 02/09/21 01/22/23 [facility], Pcp [address] [place] [address] PCP - General Internal Medicine 01/23/23 documented as of this encounter
--- OUTSIDE RECORDS SUMMARY | 2025-11-02 08:57 | XMS_ITS | Encounter Summary ---
Author Organization [facility] Prior to 09/03/2024 Address [address] [place] [address] Care Team Providers Care Tourist Information Officer Name Role Phone Lavell Marcos MD Primary Care Provider [phone] Jennifer Sylvester MD Primary Care Provider [phone] [facility], Pcp Primary Care Provider Unavailabl e Reason for Visit * Reason Onset Date Comments TEST RESULTS 11/10/2018 Encounter Details Date Type Department Care Team Description 11/10/2018 Telephone Sports Medicine - [address] [phone] Luis Miguel Gomez MD TEST RESULTS Social [...] on filedocumented in this encounter Care Teams Tourist Information Officer Relationship Specialty Start Date End Date Lavell Marcos MD [address] [place] [address] PCP - General 04/06/07 02/08/21 Jennifer Sylvester MD [address] [place] [address] 25202 PCP - General Internal Medicine 02/09/21 01/22/23 [facility], [address] [address] PCP - General Internal Medicine 01/23/23 documented as of this encounter
--- OUTSIDE RECORDS SUMMARY | 2025-11-02 08:57 | XMS_ITS | Encounter Summary ---
Author Organization [facility] Prior to 09/03/2024 Address [address] [place] [address] Care Team Providers Care Er Medical Technician Name Role Phone Lavell Marcos MD Primary Care Provider [phone] Jennifer Sylvester MD Primary Care Provider [phone] [facility], Pcp Primary Care Provider Unavailabl e Reason for Visit * Reason Onset Date Comments medication problems 12/10/2018 Encounter Details Date Type Department Care Team Description 12/10/2018 Telephone Adult Medicine [facility] [address] [place] [address] Lavell Marcos MD [address] [place] [address] [phone] medication problems Social History Tobacco Use Types [...] of her sensitivity to other narcotics Order: [id number] Date/Time Signed: 12/10/2018 11:27 AM What is the specific problem or interaction? Pharmacy cannot fill because it was faxed over, needs hard copy in patient quill picking machine operator. If the patient is having a problem with taking the med - how long has the problem been going on? N/A documented in this encounter Plan of Treatment Not on file documented as of this encounter Visit Diagnoses Not on filedocumented in this encounter Care Teams Er Medical Technician Relationship Specialty Start Date End Date Lavell Marcos MD [address] [place] [address] 25015 PCP - General 04/06/07 02/08/21 Jennifer Sylvester MD [address] [place] [address] 82107 PCP - General Internal Medicine 02/09/21 01/22/[address] [address] PCP - General Internal Medicine 01/23/23 documented as of this encounter
--- OUTSIDE RECORDS SUMMARY | 2025-11-02 08:57 | XMS_ITS | Encounter Summary ---
Author Organization [facility] Prior to 09/03/2024 Address [address] [place] [address] Care Team Providers Care Consumer Attorney Name Role Phone Lavell Marcos MD Primary Care Provider Jennifer Sylvester MD Primary Care Provider [phone] [facility], Pcp Primary Care Provider [facility] e Encounter Details Date Type Department Care Team Description 12/10/2018 Director Security Risk Management Report Medical Records [address] [place] [address] Rafat Gregorio MD Social History Tobacco Use [...] on filedocumented in this encounter Care Teams Consumer Attorney Relationship Specialty Start Date End Date Lavell Marcos MD [address] [place] [address] 12785 PCP - General 04/06/07 02/08/21 Jennifer Sylvester MD [address] [place] [address] 36189 PCP - General Internal Medicine 02/09/21 01/22/23 [facility], Pcp [address] [place] [address] PCP - General Internal Medicine 01/23/23 documented as of this encounter
--- OUTSIDE RECORDS SUMMARY | 2025-11-02 08:57 | XMS_ITS | Encounter Summary ---
Author Organization [facility] Prior to 09/03/2024 Address [address] [place] [address] Care Team Providers Care Allergy Physician Name Role Phone Lavell Marcos MD Primary Care Provider [phone] Jennifer Sylvester MD Primary Care Provider [phone] [facility], Pcp Primary Care Provider [facility] e Encounter Details Date Type Department Care Team Description 06/18/2018 Pathology Tech Report Medical Records [address] [place] [address] Reji White MD [address] [place] [address] 31145 Social History Tobacco Use Types Packs/Day Years [...] on filedocumented in this encounter Care Teams Allergy Physician Relationship Specialty Start Date End Date Lavell Marcos MD [address] [place] [address] PCP - General 04/06/07 02/08/21 Jennifer Sylvester MD [address] [place] [address] PCP - General Internal Medicine 02/09/21 01/22/23 [facility], [address] [address] PCP - General Internal Medicine 01/23/23 documented as of this encounter
--- OUTSIDE RECORDS SUMMARY | 2025-11-02 08:57 | XMS_ITS | Encounter Summary ---
Author Organization [facility] Prior to 09/03/2024 Address [address] [place] [address] Care Team Providers Care Crop Roller Name Role Phone Lavell Marcos MD Primary Care Provider [phone] Jennifer Sylvester MD Primary Care Provider [phone] [facility], Pcp Primary Care Provider [facility] e Encounter Details Date Type Department Care Team Description 11/27/2018 Pt. Non Urgent Medic al Question Adult Medicine [address] [address] Luis Miguel Gomez MD Social History Tobacco [...] on filedocumented in this encounter Care Teams Crop Roller Relationship Specialty Start Date End Date Lavell Marcos MD [address] [place] [address]66 PCP - General 04/06/07 02/08/21 Jennifer Sylvester MD [address] [place] [address] 32944 PCP - General Internal Medicine 02/09/21 01/22/23 [facility], [address] [address] PCP - General Internal Medicine 01/23/23 documented as of this encounter
--- OUTSIDE RECORDS SUMMARY | 2025-11-02 08:57 | XMS_ITS | Encounter Summary ---
Author Organization [facility] Prior to 09/03/2024 Address [address] [place] [address] Care Team Providers Care Shipping Associate Name Role Phone Lavell Marcos MD Primary Care Provider [phone] Jennifer Sylvester MD Primary Care Provider [phone] [facility], Pcp Primary Care Provider [facility] e Encounter Details Date Type Department Care Team Description 09/13/2020 Bank Consultant Report Medical Records [address] [place] [address] [facility] Social History Tobacco Use Types Packs/Day [...] on filedocumented in this encounter Care Teams Shipping Associate Relationship Specialty Start Date End Date Lavell Marcos MD [address] [place] [address] PCP - General 04/06/07 02/08/21 Jennifer Sylvester MD [address] [place] [address] 26520 PCP - General Internal Medicine 02/09/21 01/22/23 [facility], Pcp [address] [place] [address] 15644 PCP - General Internal Medicine 01/23/23 documented as of this encounter
--- OUTSIDE RECORDS SUMMARY | 2025-11-02 08:57 | XMS_ITS | Encounter Summary ---
Author Organization [facility] Prior to 09/03/2024 Address [address] [place] [address] Care Team Providers Care Business Director Name Role Phone Lavell Marcos MD Primary Care Provider [phone] Jennifer Sylvester MD Primary Care Provider [phone] [facility], Pcp Primary Care Provider [facility] e Encounter Details Date Type Department Care Team Description 02/19/2018 Sonar Watchstander Report Medical Records [address] [place] [address] Jose Cornejo MD Social History Tobacco Use [...] filedocumented in this encounter Care Teams Business Director Relationship Specialty Start Date End Date Lavell Marcos MD [address] [place] [address] 19888 PCP - General 04/06/07 02/08/21 Jennifer Sylvester MD [address] [place] [address] 14328 PCP - General Internal Medicine 02/09/21 01/22/23 [facility], Pcp [address] [place] [address] 16013 PCP - General Internal Medicine 01/23/23 documented as of this encounter
--- OUTSIDE RECORDS SUMMARY | 2025-11-02 08:57 | XMS_ITS | Encounter Summary ---
Author Organization [facility] Prior to 09/03/2024 Address [address] [place] [address] Care Team Providers Care Oil Distributor Name Role Phone Jennifer Sylvester MD Primary Care Provider [phone] [facility], Pcp Primary Care Provider Unavailabl e Encounter Details Date Type Department Care Team Description 02/22/2021 Audio Visual Technician Report Medical Records [address] [place] [address] Melyssa Garcia MD Social History Tobacco Use [...] on filedocumented in this encounter Care Teams Oil Distributor Relationship Specialty Start Date End Date Jennifer Sylvester MD [address] [place] [address] [phone] PCP - General Internal Medicine 02/09/21 01/22/23 [facility], Pcp [address] [place] [address] 79151 PCP - General Internal Medicine 01/23/23 documented as of this encounter
--- OUTSIDE RECORDS SUMMARY | 2025-11-02 08:57 | XMS_ITS | Encounter Summary ---
Author Organization [facility] Prior to 09/03/2024 Address [address] [place] [address] Care Team Providers Care Stone Rougher Name Role Phone Lavell Marcos MD Primary Care Provider [phone] Jennifer Sylvester MD Primary Care Provider [phone] [facility], Pcp Primary Care Provider [facility] e Encounter Details Date Type Department Care Team Description 07/15/2014 Telephone Sex Worker Report Medical Records [address] [place] [address] Rich Beatty Social History Tobacco Use Types [...] filedocumented in this encounter Care Teams Stone Rougher Relationship Specialty Start Date End Date Lavell Marcos MD [address] [place] [address] PCP - General 04/06/07 02/08/21 Jennifer Sylvester MD [address] [place] [address] 05709 PCP - General Internal Medicine 02/09/21 01/22/23 [facility], Pcp [address] [place] [address] 50483 PCP - General Internal Medicine 01/23/23 documented as of this encounter
--- OUTSIDE RECORDS SUMMARY | 2025-11-02 08:57 | XMS_ITS | Clinical Summary ---
Author Organization [facility] Address [address] [facility] Iwona [facility] [address] [place] [address] Care Team Providers Care Freight Brakeman Name Role Phone Abby Potter MD Primary Care Provider [phone] Social History Tobacco Use Types Packs/Day Years [...] topic Insurance [facility] Care Teams Freight Brakeman Relationship Specialty Start Date End Date Abby Potter MD [address] [place] [address] PCP - General 08/10/24
--- OUTSIDE RECORDS SUMMARY | 2025-11-02 08:57 | XMS_ITS | Encounter Summary ---
Author Organization [facility] Prior to 09/03/2024 Address [address] [place] [address] Care Team Providers Care Transit Mixer Driver Name Role Phone Lavell Marcos MD Primary Care Provider Jennifer Sylvester MD Primary Care Provider [phone] [facility], Pcp Primary Care [facility] e Encounter Details Date Type Department Care Team Description 04/05/2020 Service Order Clerk Report Medical Records [address] [place] [address] Raj Hardwick MD Social History Tobacco Use [...] on filedocumented in this encounter Care Teams Transit Mixer Driver Relationship Specialty Start Date End Date Lavell Marcos MD [address] [place] [address]37 PCP - General 04/06/07 02/08/21 Jennifer Sylvester MD [address] [place] [address] 28254 PCP - General Internal Medicine 02/09/21 01/22/23 [facility], Pcp [address] [place] [address] 78163 PCP - General Internal Medicine 01/23/23 documented as of this encounter
--- OUTSIDE RECORDS SUMMARY | 2025-11-02 08:57 | XMS_ITS | Clinical Summary ---
Author Organization [facility] Address [address] [place] [address] Care Team Providers Care Analysis Or Research Safety Inspector Name Role Phone TariqAbby Monico Primary Care Provider [phone] Allergies Active Allergy Reactions Criticality Noted Date [...] Info) Description 11/07/2025 9:30 AM EST Follow-Up [facility] [address] [place] [address] 51265 Manager Application: Carlos Diop MD [address] [place] [address] [phone] 12/20/2025 9:00 AM EST Clinical Support [facility] [address] [place] [address] 16943 Manager Application: Marlena Hurst Health Maintenance Due Date Last [...] complete this topic Procedures * Due to [place] [employer] law, this organization might not be sharing negative HIV tests. Procedure Name Priority Date/Time Associated Diagnosis Comments HM DEXA SCAN 10/31/2023 from Last 3 Months or Most Recently Relevant to Health Maintenance Results * Due to [place] [employer] [place] law, this organization might not be sharing negative HIV tests. * Dexa Scan (10/31/2023) Anatomical Region Laterality Modality Other 10/31/2023 us Onbase Scan [facility] MAINTENANCE Final Resu lt from Last 3 Months or Most Recently Relevant to Health Maintenance Insurance MEDICARE [facility] Care Teams Analysis Or Research Safety Inspector Relationship Specialty Start Date End Date Abby Potter [address] [place] [address] [place] [address] PCP - General Internal Medicine 04/14/24
--- OUTSIDE RECORDS SUMMARY | 2025-11-02 08:57 | XMS_ITS | Encounter Summary ---
Author Organization [facility] Prior to 09/03/2024 Address [address] [place] [address] Care Team Providers Care Rivet Flunky Name Role Phone Lavell Marcos MD Primary Care Provider [phone] Jennifer Sylvester MD Primary Care Provider [phone] [facility], Pcp Primary Care Provider [facility] e Encounter Details Date Type Department Care Team Description 05/29/2020 Cad Detailer Report Medical Records [address] [place] [address] [facility] Social History Tobacco Use Types Packs/Day [...] on filedocumented in this encounter Care Teams Rivet Flunky Relationship Specialty Start Date End Date Lavell Marcos MD [address] [place] [address]451 PCP - General 04/06/07 02/08/21 Jennifer Sylvester MD [address] [place] [address] PCP - General Internal Medicine 02/09/21 01/22/23 [facility], Pcp [address] [place] [address] 24246 PCP - General Internal Medicine 01/23/23 documented as of this encounter
--- OUTSIDE RECORDS SUMMARY | 2025-11-02 08:57 | XMS_ITS | Encounter Summary ---
Author Organization [facility] Prior to 09/03/2024 Address [address] [place] [address] Care Team Providers Care Recooperer Name Role Phone Lavell Marcos MD Primary Care Provider Jennifer Sylvester MD Primary Care Provider [phone] [facility], Pcp Primary Care Provider [facility] e Encounter Details Date Type Department Care Team Description 05/25/2020 Copy Worker Report Medical Records [address] [place] [address]21 Eduardo Lino MD Social History Tobacco Use [...] on filedocumented in this encounter Care Teams Recooperer Relationship Specialty Start Date End Date Lavell Marcos MD [address] [place] [address] 06505 PCP - General 04/06/07 02/08/21 Jennifer Sylvester MD [address] [place] [address] 26010 PCP - General Internal Medicine 02/09/21 01/22/23 [facility], Pcp [address] [place] [address] 46193 PCP - General Internal Medicine 01/23/23 documented as of this encounter
--- OUTSIDE RECORDS SUMMARY | 2025-11-02 08:57 | XMS_ITS | Encounter Summary ---
Author Organization [facility] Prior to 09/03/2024 Address [address] [place] [address] Care Team Providers Care Document Control Associate Name Role Phone Lavell Marcos MD Primary Care Provider [phone] Jennifer Sylvester MD Primary Care Provider [phone] [facility], Pcp Primary Care [facility] e Encounter Details Date Type Department Care Team Description 01/07/2019 Can Piler Report Medical Records [address] [place] [address] Abstract, Provider Social History Tobacco Use Types [...] on filedocumented in this encounter Care Teams Document Control Associate Relationship Specialty Start Date End Date Lavell Marcos MD [address] [place] [address] 13875 PCP - General 04/06/07 02/08/21 Jennifer Sylvester MD [address] [place] [address] 00259 PCP - General Internal Medicine 02/09/21 01/22/23 [facility], Pcp [address] [place] [address] 19095 PCP - General Internal Medicine 01/23/23 documented as of this encounter
--- OUTSIDE RECORDS SUMMARY | 2025-11-02 08:57 | XMS_ITS | Encounter Summary ---
Author Organization Formerly [facility] Prior to 09/03/2024 Address [address] [place] [address] Care Team Providers Care Inventory Accountant Name Role Phone Lavell Marcos MD Primary Care Provider [phone] Jennifer Sylvester MD Primary Care Provider [phone] [facility], Pcp Primary Care [facility] Encounter Details Date Type Department Care Team Description 06/26/2015 Business Doc Medical Records [address] [place] [address] Abstract, Provider Social History Tobacco Use Types [...] filedocumented in this encounter Care Teams Inventory Accountant Relationship Specialty Start Date End Date Lavell Marcos MD [address] [place] [address] 58273 PCP - General 04/06/07 02/08/21 Jennifer Sylvester MD [address] [place] [address] 97369 PCP - General Internal Medicine 02/09/21 01/22/23 Community, Pcp [address] [place] [address] 36567 PCP - General Internal Medicine 01/23/23 documented as of this encounter
--- OUTSIDE RECORDS SUMMARY | 2025-11-02 08:57 | XMS_ITS | Encounter Summary ---
Author Organization [facility] Prior to 09/03/2024 Address [address] [place] [address] Care Team Providers Care County Tax Assessor Name Role Phone Jennifer Sylvester MD Primary Care Provider [phone] [facility], Pcp Primary Care Provider Unavailabl e Reason for Visit * Reason Onset Date Comments Breathing Problems 06/12/2021 Encounter Details Date Type Department Care Team Description 06/12/2021 Telephone Cardio PVC POC [phone] [facility] [address] [place] [address] Reji White MD [address] [place] [address] Breathing Problems Social History Tobacco Use Types [...] PVC phone # * Telephone Encounter - Lakia Enriquez DNP, FNP - 06/13/2021 1:51 PM [...] from yesterday be faxed to triage fax [phone] * Telephone Encounter - Christy Griffin - 06/13/2021 8:27 AM EDT Patient reports saw button reclaimer yesterday (Dr. Eduardo Lino -Job Foreman ) and was told to call for a cardiology appt andressa Per patient, button reclaimer told her she may have blocked arteries. [...] p/u. Will try again soon phone # [phone] * Telephone Encounter - Ann Marie Ferrer - 06/12/2021 3:35 PM EDT 06/12/21 Pt looking to speak to care team regarding breathing problems. Pt can be reached at [phone] documented in this encounter Plan of Treatment Not on file documented as of this encounter Visit Diagnoses Not on filedocumented in this encounter Care Teams County Tax Assessor Relationship Specialty Start Date End Date Jennifer Sylvester MD [address] [place] [address] PCP - General Internal Medicine 02/09/21 01/22/23 [place] [address] PCP - General Internal Medicine 01/23/23 documented as of this encounter
--- OUTSIDE RECORDS SUMMARY | 2025-11-02 08:57 | XMS_ITS | Encounter Summary ---
Author Organization [facility] Prior to 09/03/2024 Address [address] [place] [address] Care Team Providers Care Theater Usher Name Role Phone Lavell Marcos MD Primary Care Provider [phone] Jennifer Sylvester MD Primary Care Provider [phone] [facility], Pcp [facility] Encounter Details Date Type Department Care Team Description 04/10/2020 Targeting Acquisition Officer Report Medical Records [address] [place] [address] Johnna Serna MD Social History Tobacco Use [...] on filedocumented in this encounter Care Teams Theater Usher Relationship Specialty Start Date End Date Lavell Marcos MD [address] [place] [address] 96[address] PCP - General 04/06/07 02/08/21 Jennifer Sylvester MD [address] [place] [address] PCP - General Internal Medicine 02/09/21 01/22/23 Community, Pcp [address] [place] [address] PCP - General Internal Medicine 01/23/23 documented as of this encounter
--- OUTSIDE RECORDS SUMMARY | 2025-11-02 08:57 | XMS_ITS | Encounter Summary ---
Author Organization [facility] Prior to 09/03/2024 Address [address] [place] [address] Care Team Providers Care Music Mixer Name Role Phone Lavell Marcos MD Primary Care Provider Jennifer Sylvester MD Primary Care Provider [phone] [facility], Pcp [facility] Encounter Details Date Type Department Care Team Description 09/10/2018 Ethylbenzene Converter Helper Report Medical Records [address] [place] [address] Rafat Gregorio MD Social History Tobacco Use [...] on filedocumented in this encounter Care Teams Music Mixer Relationship Specialty Start Date End Date Lavell Marcos MD [address] [place] [address] 85932 PCP - General 04/06/07 02/08/21 Jennifer Sylvester MD [address] [place] [address] 23527 PCP - General Internal Medicine 02/09/21 01/22/23 Community, Pcp [address] [place] [address] 75891 PCP - General Internal Medicine 01/23/23 documented as of this encounter
--- OUTSIDE RECORDS SUMMARY | 2025-11-02 08:57 | XMS_ITS | Encounter Summary ---
Author Organization [facility] Prior to 09/03/2024 Address [address] [place] [address] Care Team Providers Care Supervisor Powder And Primer Canning Name Role Phone Lavell Marcos MD Primary Care Provider [phone] Jennifer Sylvester MD Primary Care Provider [phone] [facility], Pcp Primary Care Provider [facility] e Encounter Details Date Type Department Care Team Description 03/21/2015 Customer Program Specialist Report Medical Records [address] [place] [address] Cassius Paniagua PA-C Social History Tobacco Use [...] filedocumented in this encounter Care Teams Supervisor Powder And Primer Canning Relationship Specialty Start Date End Date Lavell Marcos MD [address] [place] [address] 36284 PCP - General 04/06/07 02/08/21 Jennifer Sylvester MD [address] [place] [address] 35437 PCP - General Internal Medicine 02/09/21 01/22/23 [facility], Pcp [address] [place] [address] 36538 PCP - General Internal Medicine 01/23/23 documented as of this encounter
--- OUTSIDE RECORDS SUMMARY | 2025-11-02 08:57 | XMS_ITS | Encounter Summary ---
Author Organization [facility] Prior to 09/03/2024 Address [address] [place] [address] Care Team Providers Care Community Service Coordinator Name Role Phone Lavell Marcos MD Primary Care Provider [phone] Jennifer Sylvester MD Primary Care Provider [facility], Pcp Primary Care Provider [facility] e Encounter Details Date Type Department Care Team Description 05/11/2020 Sales Engagement Executive Report Medical Records [address] [place] [address] 8[address] Abstract, Provider Social History Tobacco Use Types [...] on filedocumented in this encounter Care Teams Community Service Coordinator Relationship Specialty Start Date End Date Lavell Marcos MD [address] [place] [address] PCP - General 04/06/07 02/08/21 Jennifer Sylvester MD [address] [place] [address] 19032 PCP - General Internal Medicine 02/09/21 01/22/23 [facility], Pcp [address] [place] [address] 63624 PCP - General Internal Medicine 01/23/23 documented as of this encounter
--- OUTSIDE RECORDS SUMMARY | 2025-11-02 08:57 | XMS_ITS | Encounter Summary ---
Author Organization [facility] Prior to 09/03/2024 Address [address] [place] [address] Care Team Providers Care Public Service Administrator Name Role Phone Lavell Marcos MD Primary Care Provider [phone] Jennifer Sylvester MD Primary Care Provider [phone] [facility], Pcp Primary Care Provider Unavailabl e Encounter Details Date Type Department Care Team Description 11/23/2010 Home Help Aide Report Medical Records [address] [place] [address] [place] [address] [place] [address] Social History Tobacco Use Types Packs/Day Years [...] filedocumented in this encounter Care Teams Public Service Administrator Relationship Specialty Start Date End Date Lavell Marcos MD [address] [place] [address] PCP - General 04/06/07 02/08/21 Jennifer Sylvester MD [address] [place] [address] 76912 PCP - General Internal Medicine 02/09/21 01/22/23 [facility], Pcp [address] [place] [address] 17014 PCP - General Internal Medicine 01/23/23 documented as of this encounter
--- OUTSIDE RECORDS SUMMARY | 2025-11-02 08:57 | XMS_ITS | Encounter Summary ---
Author Organization [facility] Prior to 09/03/2024 Address [address] [place] [address] Care Team Providers Care Stave Grader Name Role Phone Jennifer Sylvester MD Primary Care Provider [phone] [facility], Pcp Primary Care Provider Unavailabl e Encounter Details Date Type Department Care Team Description 05/14/2021 Flex O Writer Operator Report Medical Records [address] [place] [address] Bib Sandoval MD Social History Tobacco Use [...] on filedocumented in this encounter Care Teams Stave Grader Relationship Specialty Start Date End Date Jennifer Sylvester MD [address] [place] [address] [phone] PCP - General Internal Medicine 02/09/21 01/22/23 [facility], Pcp [address] [place] [address] 82062 PCP - General Internal Medicine 01/23/23 documented as of this encounter
--- OUTSIDE RECORDS SUMMARY | 2025-11-02 08:57 | XMS_ITS | Encounter Summary ---
Author Organization [facility] Prior to 09/03/2024 Address [address] [place] [address] Care Team Providers Care Community Association Manager Name Role Phone Lavell Marcos MD Primary Care Provider [phone] Jennifer Sylvester MD Primary Care Provider [phone] [facility], Pcp Primary [facility] Encounter Details Date Type Department Care Team Description 01/11/2015 Hospital Medical Records [address] [place] [address] Eduardo Lino MD Social History Tobacco Use [...] filedocumented in this encounter Care Teams Community Association Manager Relationship Specialty Start Date End Date Lavell Marcos MD [address] [place] [address] 99637 PCP - General 04/06/07 02/08/21 Jennifer Sylvester MD [address] [place] [address] 46834 PCP - General Internal Medicine 02/09/21 01/22/23 [facility], Pcp [address] [place] [address] 19903 PCP - General Internal Medicine 01/23/23 documented as of this encounter
--- OUTSIDE RECORDS SUMMARY | 2025-11-02 08:57 | XMS_ITS | Encounter Summary ---
Author Organization [facility] Prior to 09/03/2024 Address [address] [place] [address] Care Team Providers Care Cattle Knocker Name Role Phone Lavell Marcos MD Primary Care Provider [phone] Jennifer Sylvester MD Primary Care Provider [phone] [facility], Pcp Primary Care Provider [facility] e Encounter Details Date Type Department Care Team Description 04/13/2015 Auto Service Dispatcher Report Medical Records [address] [place] [address] 24587 Eduardo Lino MD Social History Tobacco Use [...] on filedocumented in this encounter Care Teams Cattle Knocker Relationship Specialty Start Date End Date Lavell Marcos MD [address] [place] [address] 15250 PCP - General 04/06/07 02/08/21 Jennifer Sylvester MD [address] [place] [address] 65502 PCP - General Internal Medicine 02/09/21 01/22/23 [facility], Pcp [address] [place] [address] 91400 PCP - General Internal Medicine 01/23/23 documented as of this encounter
--- OUTSIDE RECORDS SUMMARY | 2025-11-02 08:57 | XMS_ITS | Encounter Summary ---
Author Organization [facility] Prior to 09/03/2024 Address [address] [place] [address] Care Team Providers Care Senior Project Accountant Name Role Phone Lavell Marcos MD Primary Care Provider [phone] Jennifer Sylvester MD Primary Care Provider [phone] [facility], Pcp Primary Care Provider Unavailabl e Reason for Visit * Reason Onset Date Comments Diarrhea 04/26/2011 Encounter Details Date Type Department Care Team Description 04/26/2011 Telephone Adult Medicine [facility] [address] [place] [address] Lavell Marcos MD [address] [place] [address] [phone] Diarrhea Social History Tobacco Use Types Packs/Day [...] Marcos MD Payor: MELISSA Plan: POS $15 [id number] Product Type: POS [id number] documented in this encounter Plan of Treatment Not on file documented as of this encounter Visit Diagnoses Not on filedocumented in this encounter Care Teams Senior Project Accountant Relationship Specialty Start Date End Date Lavell Marcos MD [address] [place] [address] 12851 PCP - General 04/06/07 02/08/21 Jennifer Sylvester MD [address] [place] [address] 63535 PCP - General Internal Medicine 02/09/21 01/22/23 [facility], [address] [address] PCP - General Internal Medicine 01/23/23 documented as of this encounter
--- OUTSIDE RECORDS SUMMARY | 2025-11-02 08:57 | XMS_ITS | Encounter Summary ---
Author Organization [facility] Prior to 09/03/2024 Address [address] [place] [address] Care Team Providers Care Burner Machine Operator Name Role Phone Lavlel Marcos MD Primary Care Provider [phone] Jennifer Sylvester MD Primary Care Provider [phone] [facility], Pcp Primary Care Provider [facility] e Encounter Details Date Type Department Care Team Description 08/17/2020 Oil And Gas Drafter Report Medical Records [address] [place] [address] Maggy Betancur Social History Tobacco Use Types [...] on filedocumented in this encounter Care Teams Burner Machine Operator Relationship Specialty Start Date End Date Lavell Marcos MD [address] [place] [address] 29188 PCP - General 04/06/07 02/08/21 Jennifer Sylvester MD [address] [place] [address] 27131 PCP - General Internal Medicine 02/09/21 01/22/23 [facility], Pcp [address] [place] [address] PCP - General Internal Medicine 01/23/23 documented as of this encounter
--- OUTSIDE RECORDS SUMMARY | 2025-11-02 08:57 | XMS_ITS | Encounter Summary ---
Author Organization [facility] Prior to 09/03/2024 Address [address] [place] [address] Care Team Providers Care Precinct Police Lieutenant Name Role Phone Jennifer Sylvester MD Primary Care Provider [phone] [facility], Pcp Primary Care Provider Unavailabl e Encounter Details Date Type Department Care Team Description 05/29/2021 Straightener And Aligner Report Medical Records [address] [place] [address] Augie Braga MD Social History Tobacco Use [...] on filedocumented in this encounter Care Teams Precinct Police Lieutenant Relationship Specialty Start Date End Date Jennifer Sylvester MD [address] [place] [address] [phone] PCP - General Internal Medicine 02/09/21 01/22/23 [facility], Pcp [address] [place] [address] 86113 PCP - General Internal Medicine 01/23/23 documented as of this encounter
--- OUTSIDE RECORDS SUMMARY | 2025-11-02 08:57 | XMS_ITS | Encounter Summary ---
Author Organization [facility] Prior to 09/03/2024 Address [address] [place] [address] Care Team Providers Care Senior Health Physics Technician Name Role Phone Lavell Marcos MD Primary Care Provider Jennifer Sylvester MD Primary Care Provider [phone] [facility], Pcp Primary Care Provider [facility] e Encounter Details Date Type Department Care Team Description 10/04/2014 Hereditary Cancer Qu iz Results Medical Records [address] [place] [address] 60545 Abstract, Provider Social History Tobacco Use Types [...] filedocumented in this encounter Care Teams Senior Health Physics Technician Relationship Specialty Start Date End Date Lavell Marcos MD [address] [place] [address] 43407 PCP - General 04/06/07 02/08/21 Jennifer Sylvester MD [address] [place] [address] 64378 PCP - General Internal Medicine 02/09/21 01/22/23 [facility], Pcp [address] [place] [address] 24379 PCP - General Internal Medicine 01/23/23 documented as of this encounter
--- OUTSIDE RECORDS SUMMARY | 2025-11-02 08:57 | XMS_ITS | Encounter Summary ---
Author Organization [facility] Prior to 09/03/2024 Address [address] [place] [address] Care Team Providers Care Communications Department Chair Name Role Phone Lavell Marcos MD Primary Care Provider Jennifer Sylvester MD Primary Care Provider [phone] [facility], Pcp Primary Care Provider [facility] e Encounter Details Date Type Department Care Team Description 01/21/2020 Windmill Technician Report Medical Records [address] [place] [address] 25698 Eduardo Lino MD Social History Tobacco Use [...] filedocumented in this encounter Care Teams Communications Department Chair Relationship Specialty Start Date End Date Lavell Marcos MD [address] [place] [address] 51279 PCP - General 04/06/07 02/08/21 Jennifer Sylvester MD [address] [place] [address] 74916 PCP - General Internal Medicine 02/09/21 01/22/23 [facility], Pcp [address] [place] [address] 91142 PCP - General Internal Medicine 01/23/23 documented as of this encounter
--- OUTSIDE RECORDS SUMMARY | 2025-11-02 08:57 | XMS_ITS | Encounter Summary ---
Author Organization [facility] Prior to 09/03/2024 Address [address] [place] [address] Care Team Providers Care Engagement Lead Name Role Phone Lavell Marcos MD Primary Care Provider [phone] Jennifer Sylvester MD Primary Care Provider [facility], Pcp Primary Care Provider Unavailabl e Encounter Details Date Type Department Care Team Description 12/29/2018 Transfer Records Medical Records [address] [place] [address] [place] [address] [place] [address] Social History Tobacco Use Types Packs/Day Years [...] on filedocumented in this encounter Care Teams Engagement Lead Relationship Specialty Start Date End Date Lavell Marcos MD [address] [place] [address] 64578 PCP - General 04/06/07 02/08/21 Jennifer Sylvester MD [address] [place] [address] 48463 PCP - General Internal Medicine 02/09/21 01/22/23 Community, [address] [address] PCP - General Internal Medicine 01/23/23 documented as of this encounter
--- OUTSIDE RECORDS SUMMARY | 2025-11-02 08:57 | XMS_ITS | Encounter Summary ---
Author Organization [facility] Prior to 09/03/2024 Address [address] [place] [address] Care Team Providers Care Sheet Pile Hammer Operator Name Role Phone Lavell Marcos MD Primary Care Provider [phone] Jennifer Sylvester MD Primary Care Provider [phone] [facility], Pcp Primary Care Provider [facility] e Encounter Details Date Type Department Care Team Description 08/05/2014 Pt. Non Urgent Medical Question Adult Medicine [facility] [place] [facility] [address] [place] [address] Lavell Marcos MD [address] [place] [address] [phone] Social History Tobacco Use Types Packs/Day Years [...] on filedocumented in this encounter Care Teams Sheet Pile Hammer Operator Relationship Specialty Start Date End Date Lavell Marcos MD [address] [place] [address] 90275 PCP - General 04/06/07 02/08/21 Jennifer Sylvester MD [address] [place] [address] 76291 PCP - General Internal Medicine 02/09/21 01/22/[address] [address] PCP - General Internal Medicine 01/23/23 documented as of this encounter
--- OUTSIDE RECORDS SUMMARY | 2025-11-02 08:57 | XMS_ITS | Encounter Summary ---
Author Organization [facility] Prior to 09/03/2024 Address [address] [place] [address] Care Team Providers Care Outside Sales Name Role Phone Lavell Marcos MD Primary Care Provider [phone] Jennifer Sylvester MD Primary Care Provider [phone] [facility], Pcp Primary Care Provider [facility] e Encounter Details Date Type Department Care Team Description 04/24/2015 Secondary Set Up Man Report Medical Records [address] [place] [address] 29372 Idalia Benito MD Social History Tobacco Use [...] on filedocumented in this encounter Care Teams Outside Sales Relationship Specialty Start Date End Date Lavell Marcos MD [address] [place] [address] 20707 PCP - General 04/06/07 02/08/21 Jennifer Sylvester MD [address] [place] [address] 34755 PCP - General Internal Medicine 02/09/21 01/22/23 [facility], Pcp [address] [place] [address] 87405 PCP - General Internal Medicine 01/23/23 documented as of this encounter
--- OUTSIDE RECORDS SUMMARY | 2025-11-02 08:57 | XMS_ITS | Encounter Summary ---
Author Organization [facility] Prior to 09/03/2024 Address [address] [place] [address] Care Team Providers Care Sexton Helper Name Role Phone Lavell Marcos MD Primary Care Provider [phone] Jennifer Sylvester MD Primary Care Provider [phone] [facility], Pcp Primary Care Provider [facility] e Encounter Details Date Type Department Care Team Description 08/07/2018 Orders Only Pulmonology - [address] [place] [phone] Eduardo Lino MD Social History Tobacco Use [...] on filedocumented in this encounter Care Teams Sexton Helper Relationship Specialty Start Date End Date Lavell Marcos MD [address] [place] [address] 40164 PCP - General 04/06/07 02/08/21 Jennifer ySlvester MD [address] [place] [address] 19795 PCP - General Internal Medicine 02/09/21 01/22/23 [facility], [address] [address] PCP - General Internal Medicine 01/23/23 documented as of this encounter
--- OUTSIDE RECORDS SUMMARY | 2025-11-02 08:57 | XMS_ITS | Encounter Summary ---
Author Organization [facility] Prior to 09/03/2024 Address [address] [place] [address] Care Team Providers Care Foreign Trade Teacher Name Role Phone Lavell Marcos MD Primary Care Provider [phone] Jennifer Sylvester MD Primary Care Provider [phone] [facility], Pcp Primary Care Provider [facility] e Encounter Details Date Type Department Care Team Description 01/06/2019 Release of Information Medical Records [address] [place] [address] Abstract, Provider Social History Tobacco Use Types [...] on filedocumented in this encounter Care Teams Foreign Trade Teacher Relationship Specialty Start Date End Date Lavell Marcos MD [address] [place] [address] 40500 PCP - General 04/06/07 02/08/21 Jennifer Sylvester MD [address] [place] [address] 37392 PCP - General Internal Medicine 02/09/21 01/22/23 [facility], Pcp [address] [place] [address] 22604 PCP - General Internal Medicine 01/23/23 documented as of this encounter
--- OUTSIDE RECORDS SUMMARY | 2025-11-02 08:57 | XMS_ITS | Encounter Summary ---
Author Organization [facility] Prior to 09/03/2024 Address [address] [place] [address] Care Team Providers Care Aviation Maintenance Instructor Name Role Phone Lavell Marcos MD Primary Care Provider [phone] Jennifer Sylvester MD Primary Care Provider [phone] [facility], Pcp Primary Care Provider [facility] e Encounter Details Date Type Department Care Team Description 11/26/2018 Pt. Non Urgent Medical Question Physiatry - [address] [address] Rik Bauer PA-C Social History Tobacco Use Types Packs/Day Years Used Date Smoking Tobacco: Never Smokeless Tobacco: Never Alcohol Use Standard Drinks/Week Comments No 0 (1 standard drink = 0.6 oz pur e alcohol) Sex Assigned at Date Recorded Not on file Job Start Date Occupation Industry Not on file Not on file Not on file documented as of this encounter Progress Notes * Dilma Elizabeth L.P.N. - 11/26/2018 3:48 PM ESTFrom: Adelina Tavarez To: Rik Bauer PA-C Sent: 11/26/2018 3:31 PM EST Subject: Pain medication Bradly could u please suggest what else I could take for pain Advil isn???t working endocine works brand name but it causes other issues rather not use is there something else I could use Adelina Tavarez documented in this encounter Plan of Treatment Not on file documented as of this encounter Visit Diagnoses Not on filedocumented in this encounter Care Teams Aviation Maintenance Instructor Relationship Specialty Start Date End Date Lavell Marcos MD [address] [place] [address] PCP - General 04/06/07 02/08/21 Jennifer Sylvester MD [address] [place] [address] PCP - General Internal Medicine 02/09/21 01/22/23 [facility], [address] [address] PCP - General Internal Medicine 01/23/23 documented as of this encounter
--- OUTSIDE RECORDS SUMMARY | 2025-11-02 08:57 | XMS_ITS | Encounter Summary ---
Author Organization [facility] Prior to 09/03/2024 Address [address] [place] [address] Care Team Providers Care Aboriginal Home School Liaison Officer Name Role Phone Lavell Marcos MD Primary Care Provider [phone] Jennifer Sylvester MD Primary Care Provider [phone] [facility], Pcp Primary Care Provider Unavailabl e Reason for Visit * Reason Onset Date Comments medication problems 04/06/2020 Encounter Details Date Type Department Care Team Description 04/06/2020 Telephone Adult Medicine - [address] [address] Lavell Marcos MD [address] [place] [address] medication problems Social History Tobacco Use Types [...] on filedocumented in this encounter Care Teams Aboriginal Home School Liaison Officer Relationship Specialty Start Date End Date Lavell Marcos MD [address] [place] [address] PCP - General 04/06/07 02/08/21 Jennifer Sylvester MD [address] [place] [address] PCP - General Internal Medicine 02/09/21 01/22/[address] [address] PCP - General Internal Medicine 01/23/23 documented as of this encounter
--- OUTSIDE RECORDS SUMMARY | 2025-11-02 08:57 | XMS_ITS | Encounter Summary ---
Author Organization [facility] Prior to 09/03/2024 Address [address] [place] [address] Care Team Providers Care Banking Management Consulting Manager Name Role Phone Lavell Marcos MD Primary Care Provider [phone] Jennifer Sylvester MD Primary Care Provider [phone] Replaced By [facility], Pcp Primary Care Provider [facility] e Encounter Details Date Type Department Care Team Description 06/01/2014 Pt. Non Urgent Medical Question Adult Medicine [facility] [address] [place] [address] Lavell Marcos MD [address] [place], [place] [id number] Social History Tobacco Use Types Packs/Day Years [...] on filedocumented in this encounter Care Teams Banking Management Consulting Manager Relationship Specialty Start Date End Date Lavell Marcos MD [address] [place] [address] PCP - General 04/06/07 02/08/21 Jennifer Sylvester MD [address] [place] [address] PCP - General Internal Medicine 02/09/21 01/22/[address] [address] PCP - General Internal Medicine 01/23/23 documented as of this encounter
--- OUTSIDE RECORDS SUMMARY | 2025-11-02 08:58 | XMS_ITS | Encounter Summary ---
Author Organization [facility] Prior to 09/03/2024 Address [address] [place] [address] Care Team Providers Care Portfolio Mgr Name Role Phone Lavell Marcos MD Primary Care Provider [phone] Jennifer Sylvester MD Primary Care Provider [facility], [facility]cp Primary Care Provider Unavailabl e Reason for Referral * - Authorized/Booked Specialty Diagnoses / Procedures Referred By Olesya rodríguez Referred To Contact Endocrinology Diagnoses Palpitations Mixed hyperlipidemia Procedures REFERRAL TO ENDOCRINOLOGY Lavell Marcos MD [address] [place] [address] [place] [address] Referral ID Status Reason Start Date Expiration Date V isits Requested Visits Authorized NOT REQUIRED Authorized/ Booked 06/27/2014 06/27/2015 1 1 Encounter Details Date Type Department Care Team Description 06/23/2014 Pt. Non Urgent Medical [place] [address] Ciera Real MD Palpitations; Mixed hyperlipidemia Social [...] hyperlipidemia documented in this encounter Care Teams Portfolio Mgr Relationship Specialty Start Date End Date Lavell Marcos MD [address] [place] [address] PCP - General 04/06/07 02/08/21 Jennifer Sylvester MD [address] [place] [address] PCP - General Internal Medicine 02/09/21 01/22/23 [facility] [place] [phone] PCP - General Internal Medicine 01/23/23 documented as of this encounter
--- OUTSIDE RECORDS SUMMARY | 2025-11-02 08:58 | XMS_ITS | Encounter Summary ---
Author Organization [facility] Prior to 09/03/2024 Address [address] [place] [address] Care Team Providers Care Immunology Teacher Name Role Phone Lavell Marcos MD Primary Care Provider [phone] Jennifer Sylvester MD Primary Care Provider [facility], Pcp Primary Care Provider [facility] e Encounter Details Date Type Department Care Team Description 08/24/2010 Workday Consultant Report Medical Records [address] [place] [address] Rich Beatty Social History Tobacco Use Types [...] on filedocumented in this encounter Care Teams Immunology Teacher Relationship Specialty Start Date End Date Lavell Marcos MD [address] [place] [address] PCP - General 04/06/07 02/08/21 Jennifer Sylvester MD [address] [place] [address] PCP - General Internal Medicine 02/09/21 01/22/23 [facility], Pcp [address] [place] [address] PCP - General Internal Medicine 01/23/23 documented as of this encounter
--- OUTSIDE RECORDS SUMMARY | 2025-11-02 08:58 | XMS_ITS | Encounter Summary ---
Author Organization [facility] Prior to 09/03/2024 Address [address] [place] [address] Care Team Providers Care Instructor Physical Education Name Role Phone Lavell Marcos MD Primary Care Provider [phone] Jennifer Sylvester MD Primary Care Provider [phone] [facility], Pcp Primary Care Provider [facility] e Encounter Details Date Type Department Care Team Description 04/21/2014 Sweater Designer Report Medical Records [address] [place] [address] Bib Sandoval MD Social History Tobacco Use [...] on filedocumented in this encounter Care Teams Instructor Physical Education Relationship Specialty Start Date End Date Lavell Marcos MD [address] [place] [address] PCP - General 04/06/07 02/08/21 Jennifer Sylvester MD [address] [address] PCP - General Internal Medicine 02/09/21 01/22/23 [facility], Pcp [address] [place] [address] PCP - General Internal Medicine 01/23/23 documented as of this encounter
--- OUTSIDE RECORDS SUMMARY | 2025-11-02 08:58 | XMS_ITS | Encounter Summary ---
Author Organization [facility] Prior to 09/03/2024 Address [address] [place] [address] Care Team Providers Care Sap Basis Administrator Name Role Phone Lavell Marcos MD Primary Care Provider Jennifer Sylvester MD Primary Care Provider [phone] [facility], Pcp Primary Care Provider Unavailabl e Reason for Visit * Reason Onset Date Comments other 02/23/2019 Encounter Details Date Type Department Care Team Description 02/23/2019 Telephone Pulmonology - [address] [place] [address] Eduardo Lino MD other Social [...] EDT See below * Telephone Encounter - Ronashayla Lino - 02/23/2019 12:15 PM EDT Pt calling she its having an RMI appointment next week and needs to speak with Dr. Lino. (did not want to elaborate) documented in this encounter Plan of Treatment Not on file documented as of this encounter Visit Diagnoses Not on filedocumented in this encounter Care Teams Sap Basis Administrator Relationship Specialty Start Date End Date Lavell Marcos MD [address] [place] [address] PCP - General 04/06/07 02/08/21 Jennifer Sylvester MD [address] [place] [address] PCP - General Internal Medicine 02/09/21 01/22/23 [facility], [address] [address] PCP - General Internal Medicine 01/23/23 documented as of this encounter
--- OUTSIDE RECORDS SUMMARY | 2025-11-02 08:58 | XMS_ITS | Encounter Summary ---
Author Organization [facility] Prior to 09/03/2024 Address [address] [place] [address] Care Team Providers Care Medical Dermatologist Name Role Phone Lavell Marcos MD Primary Care Provider [phone] Jennifer Sylvester MD Primary Care Provider [phone] [facility], Pcp Primary Care Provider [facility] Encounter Details Date Type Department Care Team Description 11/10/2019 Hospital Medical Records [address] [place] [address] Augie Braga MD Social History Tobacco Use [...] filedocumented in this encounter Care Teams Medical Dermatologist Relationship Specialty Start Date End Date Lavell Marcos MD [address] [place] [address] PCP - General 04/06/07 02/08/21 Jennifer Sylvester MD [address] [place] [address] PCP - General Internal Medicine 02/09/21 01/22/23 [facility], Pcp [address] [place] [address] PCP - General Internal Medicine 01/23/23 documented as of this encounter
--- OUTSIDE RECORDS SUMMARY | 2025-11-02 08:58 | XMS_ITS | Encounter Summary ---
Author Organization [facility] Prior to 09/03/2024 Address [address] [place] [address] Care Team Providers Care Tape Sewing Machine Operator Name Role Phone Lavell Marcos MD Primary Care Provider [phone] Jennifer Sylvester MD Primary Care Provider [phone] [facility], Pcp Primary Care Provider [facility] e Encounter Details Date Type Department Care Team Description 01/06/2020 Buttoner Report Medical Records [address] [place] [address] Johnna Serna MD Social History Tobacco Use [...] on filedocumented in this encounter Care Teams Tape Sewing Machine Operator Relationship Specialty Start Date End Date Lavell Marcos MD [address] [place] [address] PCP - General 04/06/07 02/08/21 Jennifer Sylvester MD [address] [place] [address] PCP - General Internal Medicine 02/09/21 01/22/23 [facility], Pcp [address] [place] [address] PCP - General Internal Medicine 01/23/23 documented as of this encounter
--- OUTSIDE RECORDS SUMMARY | 2025-11-02 08:58 | XMS_ITS | Encounter Summary ---
Author Organization [facility] Prior to 09/03/2024 Address [address] [place] [address] Care Team Providers Care Associate Professor Of Psychology Name Role Phone Lavell Marcos MD Primary Care Provider Jennifer Sylvester MD Primary Care Provider [phone] [facility], Pcp Primary Care Provider [facility] e Encounter Details Date Type Department Care Team Description 02/15/2019 Hospital Medical Records [address] [place] [address] Raj Hardwick MD Social History Tobacco Use [...] on filedocumented in this encounter Care Teams Associate Professor Of Psychology Relationship Specialty Start Date End Date Lavell Marcos MD [address] [place] [address] PCP - General 04/06/07 02/08/21 Jennifer Sylvester MD [address] [place] [address] PCP - General Internal Medicine 02/09/21 01/22/23 [facility], Pcp [address] [place] [address] PCP - General Internal Medicine 01/23/23 documented as of this encounter
--- OUTSIDE RECORDS SUMMARY | 2025-11-02 08:58 | XMS_ITS | Encounter Summary ---
Author Organization [facility] Prior to 09/03/2024 Address [address] [place] [address] Care Team Providers Care Real Estate Consultant Name Role Phone Lavell Marcos MD Primary Care Provider [phone] Jennifer Sylvester MD Primary Care Provider [phone] [facility], Pcp Primary Care Provider [facility] e Encounter Details Date Type Department Care Team Description 04/29/2017 [facility] Medical Records [address] [place] [address] Abstract, Provider Social History Tobacco Use Types [...] on filedocumented in this encounter Care Teams Real Estate Consultant Relationship Specialty Start Date End Date Lavell Marcos MD [address] [place] [address] PCP - General 04/06/07 02/08/21 Jennifer Sylvester MD [address] [place] [address] PCP - General Internal Medicine 02/09/21 01/22/23 [facility], Pcp [address] [place] [address] PCP - General Internal Medicine 01/23/23 documented as of this encounter
--- OUTSIDE RECORDS SUMMARY | 2025-11-02 08:58 | XMS_ITS | Encounter Summary ---
Author Organization [facility] Prior to 09/03/2024 Address [address] [place] [address] Care Team Providers Care Cemetery Vault Installer Name Role Phone Lavell Marcos MD Primary Care Provider [phone] Jennifer Sylvester MD Primary Care Provider [phone] [facility], Pcp Primary Care Provider [facility] e Encounter Details Date Type Department Care Team Description 02/04/2019 Engineering Production Liaison Report Medical Records [address] [place] [address] Raj Hardwick MD Social History Tobacco Use [...] on filedocumented in this encounter Care Teams Cemetery Vault Installer Relationship Specialty Start Date End Date Lavell Marcos MD [address] [place] [address] PCP - General 04/06/07 02/08/21 Jennifer Sylvester MD [address] [place] [address] PCP - General Internal Medicine 02/09/21 01/22/23 [facility], Pcp [address] [place] [address] PCP - General Internal Medicine 01/23/23 documented as of this encounter
--- OUTSIDE RECORDS SUMMARY | 2025-11-02 08:58 | XMS_ITS | Encounter Summary ---
Author Organization [facility] Prior to 09/03/2024 Address [address] [place] [address] Care Team Providers Care Plant Safety Leader Name Role Phone Lavell Marcos MD Primary Care Provider [phone] Jennifer Sylvester MD Primary Care Provider [phone] [facility], Pcp Primary Care Provider [facility] e Encounter Details Date Type Department Care Team Description 06/15/2013 Trouble Tracer Report Medical Records [address] [place] [address] Eduardo Lino MD Social History Tobacco Use [...] filedocumented in this encounter Care Teams Plant Safety Leader Relationship Specialty Start Date End Date Lavell Marcos MD [address] [place] [address] PCP - General 04/06/07 02/08/21 Jennifer Sylvester MD [address] [place] [address] PCP - General Internal Medicine 02/09/21 01/22/23 [facility], Pcp [address] [place] [address] PCP - General Internal Medicine 01/23/23 documented as of this encounter
--- OUTSIDE RECORDS SUMMARY | 2025-11-02 08:58 | XMS_ITS | Encounter Summary ---
Author Organization [facility] Prior to 09/03/2024 Address [address] [place] [address] Care Team Providers Care Manager Behavior Name Role Phone Lavell Marcos MD Primary Care Provider Jennifer Sylvester MD Primary Care Provider [phone] [facility], Pcp Primary Care Provider [facility] e Encounter Details Date Type Department Care Team Description 04/22/2014 Steel Pickler Report Medical Records [address] [place] [address] Eduardo Lino MD Social History Tobacco Use [...] filedocumented in this encounter Care Teams Manager Behavior Relationship Specialty Start Date End Date Lavell Marcos MD [address] [place] [address] PCP - General 04/06/07 02/08/21 Jennifer Sylvester MD [address] [place] [address] PCP - General Internal Medicine 02/09/21 01/22/23 [facility], Pcp [address] [place] [address] PCP - General Internal Medicine 01/23/23 documented as of this encounter
--- OUTSIDE RECORDS SUMMARY | 2025-11-02 08:58 | XMS_ITS | Encounter Summary ---
Author Organization [facility] Prior to 09/03/2024 Address [address] [place] [address] Care Team Providers Care Riprap Man Name Role Phone Lavell Marcos MD Primary Care Provider [phone] Jennifer Sylvester MD Primary Care Provider [phone] [facility], Pcp Primary Care Provider Unavailabl e Reason for Visit * Reason Comments E-prescribe Rx Request Encounter Details Date Type Department Care Team Description 03/04/2017 Refill Adult Medicine [address] [address] Lavell Marcos MD [address] [place] [address] [phone] E-prescribe Rx Request Social History Tobacco Use [...] NO Patients current insurance carrier is: Payor: [facility]/PPO POS / Plan: PPO $0 Editlite [id number] / Product Type: PPO [id number] documented in this encounter Plan of Treatment Not on file documented as of this encounter Visit Diagnoses Not on filedocumented in this encounter Care Teams Riprap Man Relationship Specialty Start Date End Date Lavell Marcos MD [address] [place] [address] PCP - General 04/06/07 02/08/21 Jennifer Sylvester MD [address] [place] [address] PCP - General Internal Medicine 02/09/21 01/22/23 Joe Garay [address] [place] [address] PCP - General Internal Medicine 01/23/23 documented as of this encounter
--- OUTSIDE RECORDS SUMMARY | 2025-11-02 08:58 | XMS_ITS | Encounter Summary ---
Author Organization [facility] Address [address] [place] [address] Care Team Providers Care Baker Apprentice Name Role Phone TariqMarleeelidia Marc Primary Care Provider [phone] Reason for Visit * Reason Onset Date Comments PAC Patient Request Call Back 06/08/2024 Encounter Details Date Type Department Care Team (Late st Contact Info) Description 06/08/2024 Telephone [facility] [address] [place] [address] Telephone Intake, Staff PAC Patient Request Call [...] for 9am. Patient can be reached at [phone]. Thank you - PAC documented in this encounter Plan of Treatment Upcoming Encounters Date Type Department Care Team (Late st Contact Info) Description 11/07/2025 9:30 AM EST Follow-Up [facility] [address] [place] [address] Crab Butcher: Carlos Diop MD [address] [place] [address] 12/20/2025 9:00 AM EST Clinical Support [facility] [address] [place] [address] Crab Butcher: Marlena Hurst documented as of this encounter Visit Diagnoses Not on filedocumented in this encounter Care Teams Baker Apprentice Relationship Specialty Start Date End Date Abby Potter [address] [place] [address] [place] [address] PCP - General Internal Medicine 04/14/24 documented as of this encounter
--- OUTSIDE RECORDS SUMMARY | 2025-11-02 08:58 | XMS_ITS | Encounter Summary ---
Author Organization [facility] Prior to 09/03/2024 Address [address] [place] [address] Care Team Providers Care Renewals Manager Name Role Phone Lavell Marcos MD Primary Care Provider [phone] Jennifer Sylvester MD Primary Care Provider [phone] [facility], Pcp Primary Care Provider [facility] e Encounter Details Date Type Department Care Team Description 03/26/2019 Geophysical Laboratory Supervisor Report Medical Records [address] [place] [address] Penelope Geronimo MD [address] [place] [address] Social History Tobacco Use Types Packs/Day Years [...] on filedocumented in this encounter Care Teams Renewals Manager Relationship Specialty Start Date End Date Lavell Marcos MD [address] [place] [address] PCP - General 04/06/07 02/08/21 Jennifer Sylvester MD [address] [place] [address] PCP - General Internal Medicine 02/09/21 01/22/23 [place], [address] [address] PCP - General Internal Medicine 01/23/23 documented as of this encounter
--- OUTSIDE RECORDS SUMMARY | 2025-11-02 08:58 | XMS_ITS | Encounter Summary ---
Author Organization [facility] Prior to 09/03/2024 Address [address] [place] [address] Care Team Providers Care Workforce Consultant Name Role Phone Lavell Marcos MD Primary Care Provider [phone] Jennifer Sylvester MD Primary Care Provider [facility], Pcp Primary Care Provider [facility] e Encounter Details Date Type Department Care Team Description 10/12/2019 Old Medical Records Medical Records [address] [place] [address] Abstract, Provider Social History Tobacco Use Types [...] on filedocumented in this encounter Care Teams Workforce Consultant Relationship Specialty Start Date End Date Lavell Marcos MD [address] [place] [address] PCP - General 04/06/07 02/08/21 Jennifer Sylvester MD [address] [place] [address] PCP - General Internal Medicine 02/09/21 01/22/23 [facility], Pcp [address] [place] [address] PCP - General Internal Medicine 01/23/23 documented as of this encounter
--- OUTSIDE RECORDS SUMMARY | 2025-11-02 08:58 | XMS_ITS | Encounter Summary ---
Author Organization [facility] Prior to 09/03/2024 Address [address] [place] [address] Care Team Providers Care Contract Clerk Automobile Name Role Phone Lavell Marcos MD Primary Care Provider [phone] Jennifer Sylvester MD Primary Care Provider [phone] [facility], Pcp Primary Care Provider [facility] e Encounter Details Date Type Department Care Team Description 09/24/2019 Old Medical Records Medical Records [address] [place] [address] Abstract, Provider Social History Tobacco Use Types [...] on filedocumented in this encounter Care Teams Contract Clerk Automobile Relationship Specialty Start Date End Date Lavell Marcos MD [address] [place] [address] PCP - General 04/06/07 02/08/21 Jennifer Sylvester MD [address] [place] [address] PCP - General Internal Medicine 02/09/21 01/22/23 [facility], Pcp [address] [place] [address] PCP - General Internal Medicine 01/23/23 documented as of this encounter
--- OUTSIDE RECORDS SUMMARY | 2025-11-02 08:58 | XMS_ITS | Encounter Summary ---
Author Organization [facility] Prior to 09/03/2024 Address [address] [place] [address] Care Team Providers Care Pellet Mill Operator Name Role Phone Lavell Marcos MD Primary Care Provider [phone] Jennifer Sylvester MD Primary Care Provider [facility], Pcp Primary Care Provider [facility] Encounter Details Date Type Department Care Team Description 08/06/2017 Business Doc Medical Records [address] [place] [address] 13061 Abstract, Provider Social History Tobacco Use Types [...] on filedocumented in this encounter Care Teams Pellet Mill Operator Relationship Specialty Start Date End Date Lavell Marcos MD [address] [place] [address] 18784 PCP - General 04/06/07 02/08/21 Jennifer Sylvester MD [address] [place] [address] 91311 PCP - General Internal Medicine 02/09/21 01/22/23 Community, Pcp [address] [place] [address] 74221 PCP - General Internal Medicine 01/23/23 documented as of this encounter
--- OUTSIDE RECORDS SUMMARY | 2025-11-02 08:58 | XMS_ITS | Encounter Summary ---
Author Organization [facility] Prior to 09/03/2024 Address [address] [place] [address] Care Team Providers Care Intelligence Agent Name Role Phone Lavell Marcos MD Primary Care Provider Jennifer Sylvester MD Primary Care Provider [phone] [facility], Pcp Primary Care Provider [facility] Encounter Details Date Type Department Care Team Description 04/08/2014 Price Economist Report Medical Records [address] [place] [address] 64161 Rich Beatty Social History Tobacco Use Types [...] on filedocumented in this encounter Care Teams Intelligence Agent Relationship Specialty Start Date End Date Lavell Marcos MD [address] [place] [address] 04996 PCP - General 04/06/07 02/08/21 Jennifer Sylvester MD [address] [place] [address] 63409 PCP - General Internal Medicine 02/09/21 01/22/23 [facility], Pcp [address] [place] [address] 25757 PCP - General Internal Medicine 01/23/23 documented as of this encounter
--- OUTSIDE RECORDS SUMMARY | 2025-11-02 08:58 | XMS_ITS | Encounter Summary ---
Author Organization [facility] Prior to 09/03/2024 Address [address] [place] [address] Care Team Providers Care Advertising Sales Consultant Name Role Phone Lavell Marcos MD Primary Care Provider [phone] Jennifer Sylvester MD Primary Care Provider [phone] [facility], Pcp Primary Care Provider [facility] e Encounter Details Date Type Department Care Team Description 01/03/2018 Hospital Medical Records [address] [place], [place] [id number] Govind Munguia Social History Tobacco Use Types [...] on filedocumented in this encounter Care Teams Advertising Sales Consultant Relationship Specialty Start Date End Date Lavell Marcos MD [address] [place] [address] 58665 PCP - General 04/06/07 02/08/21 Jennifer Sylvester MD [address] [place] [address] 79949 PCP - General Internal Medicine 02/09/21 01/22/23 [facility], Pcp [address] [place] [address] 57522 PCP - General Internal Medicine 01/23/23 documented as of this encounter
--- OUTSIDE RECORDS SUMMARY | 2025-11-02 08:58 | XMS_ITS | Encounter Summary ---
Author Organization [facility] Prior to 09/03/2024 Address [address] [place] [address] Care Team Providers Care Silk Spreader Name Role Phone Lavell Marcos MD Primary Care Provider [phone] Jennifer Sylvester MD Primary Care Provider [phone] [facility], Pcp Primary Care Provider [facility] e Encounter Details Date Type Department Care Team Description 10/18/2019 Old Medical Records Medical Records [address] [place] [address] 95883 Abstract, Provider Social History Tobacco Use Types [...] on filedocumented in this encounter Care Teams Silk Spreader Relationship Specialty Start Date End Date Lavell Marcos MD [address] [place] [address] 92275 PCP - General 04/06/07 02/08/21 Jennifer Sylvester MD [address] [place] [address] 26775 PCP - General Internal Medicine 02/09/21 01/22/23 Community, Pcp [address] [place] [address] 70966 PCP - General Internal Medicine 01/23/23 documented as of this encounter
--- OUTSIDE RECORDS SUMMARY | 2025-11-02 08:58 | XMS_ITS | Encounter Summary ---
Author Organization [facility] Prior to 09/03/2024 Address [address] [place] [address] Care Team Providers Care Shared Services Representative Name Role Phone Lavell Marcos MD Primary Care Provider [phone] Jennifer Sylvester MD Primary Care Provider [phone] [facility], Pcp Primary Care Provider [facility] e Encounter Details Date Type Department Care Team Description 02/28/2014 Rfid Manager Report Medical Records [address] [place] [address] 56690 Eduardo Lino MD Social History Tobacco Use [...] on filedocumented in this encounter Care Teams Shared Services Representative Relationship Specialty Start Date End Date Lavell Marcos MD [address] [place] [address] 31007 PCP - General 04/06/07 02/08/21 Jennifer Sylvester MD [address] [place] [address] 01324 PCP - General Internal Medicine 02/09/21 01/22/23 Community, Pcp [address] [place] [address] 04994 PCP - General Internal Medicine 01/23/23 documented as of this encounter
--- OUTSIDE RECORDS SUMMARY | 2025-11-02 08:58 | XMS_ITS | Encounter Summary ---
Author Organization [facility] Prior to 09/03/2024 Address [address] [place] [address] Care Team Providers Care Tapping Machine Operator Automatic Name Role Phone Lavell Marcos MD Primary Care Provider [phone] Jennifer Sylvester MD Primary Care Provider [phone] [facility], Pcp Primary Care Provider [facility] e Encounter Details Date Type Department Care Team Description 11/14/2011 Hospital Medical Records [address] [place] [address] Yazan Lang Social History Tobacco Use Types [...] on filedocumented in this encounter Care Teams Tapping Machine Operator Automatic Relationship Specialty Start Date End Date Lavell Marcos MD [address] [place] [address] 62150 PCP - General 04/06/07 02/08/21 Jennifer Sylvester MD [address] [place] [address] 54579 PCP - General Internal Medicine 02/09/21 01/22/23 Community, Pcp [address] [place] [address] 01053 PCP - General Internal Medicine 01/23/23 documented as of this encounter
--- OUTSIDE RECORDS SUMMARY | 2025-11-02 08:58 | XMS_ITS | Encounter Summary ---
Author Organization [facility] Prior to 09/03/2024 Address [address] [place] [address] Care Team Providers Care Datapower Developer Name Role Phone Lavell Marcos MD Primary Care Provider Jennifer Sylvester MD Primary Care Provider [phone] [facility], Pcp Primary Care Provider [facility] e Encounter Details Date Type Department Care Team Description 08/02/2013 Commodity Management Specialist Report Medical Records [address] [place] [address] 74536 Bib Sandoval MD Social History Tobacco Use [...] on filedocumented in this encounter Care Teams Datapower Developer Relationship Specialty Start Date End Date Lavell Marcos MD [address] [place] [address] 08847 PCP - General 04/06/07 02/08/21 Jennifer Sylvester MD [address] [place] [address] 92691 PCP - General Internal Medicine 02/09/21 01/22/23 Community, Pcp [address] [place] [address] 87044 PCP - General Internal Medicine 01/23/23 documented as of this encounter
--- OUTSIDE RECORDS SUMMARY | 2025-11-02 08:58 | XMS_ITS | Encounter Summary ---
Author Organization [facility] Prior to 09/03/2024 Address [address] [place] [address] Care Team Providers Care Dump Motorman Name Role Phone Lavell Harding MD Primary Care Provider [phone] Jennifer Sylvester MD Primary Care Provider [phone] [facility], Pcp Primary Care Provider Unavailabl e Reason for Referral * Non MARYAM (Routine) - Authorized/Booked Specialty Diagnoses / Procedures Referred By Olesya rodríguez Referred To Contact Gastroenterology Procedures REFERRAL TO GASTROENTEROLOGY Sam Santiago PA-C [address] [place] [address] Gastro/[address] [address] Referral ID Status Reason Start Date Expiration Date V isits Requested Visits Authorized [id number] Authorized/B ooked 01/07/2018 01/07/2019 1 1 Reason for Visit * Reason Onset Date Comments REFERRAL 01/06/2018 Encounter Details Date Type Department Care Team Description 01/06/2018 Telephone Gastroenterology - [address] [address] Roger Erazo MD REFERRAL Social History Tobacco [...] nausea. She said she was seen at [facility]. Patient has a follow up with dr harding on 01/22/18. Can you place order so we can schedule Her? documented in this encounter Plan of Treatment Not on file documented as of this encounter Visit Diagnoses Not on filedocumented in this encounter Care Teams Dump Motorman Relationship Specialty Start Date End Date Lavell Harding MD [address] [place] [address] 57375 PCP - General 04/06/07 02/08/21 Jennifer Sylvester MD [address] [place] [address] 06082 PCP - General Internal Medicine 02/09/21 01/22/23 [facility], [place] [phone] PCP - General Internal Medicine 01/23/23 documented as of this encounter
--- OUTSIDE RECORDS SUMMARY | 2025-11-02 08:58 | XMS_ITS | Encounter Summary ---
Author Organization [facility] Prior to 09/03/2024 Address [address] [place] [address] Care Team Providers Care Inker And Opaquer Name Role Phone Lavell Marcos MD Primary Care Provider [phone] Jennifer Sylvester MD Primary Care Provider [phone] [facility], Pcp Primary Care Provider [facility] e Encounter Details Date Type Department Care Team Description 2019 Business Doc Medical Records [address] [place] [address] 68483 Abstract, Provider Social History Tobacco Use Types [...] on filedocumented in this encounter Care Teams Inker And Opaquer Relationship Specialty Start Date End Date Lavell Marcos MD [address] [place] [address] 09604 PCP - General 04/06/07 02/08/21 Jennifer Sylvester MD [address] [place] [address] 12436 PCP - General Internal Medicine 02/09/21 01/22/23 [facility], Pcp [address] [place] [address] 73950 PCP - General Internal Medicine 01/23/23 documented as of this encounter
--- OUTSIDE RECORDS SUMMARY | 2025-11-02 08:59 | XMS_ITS | Encounter Summary ---
Author Organization [facility] Prior to 09/03/2024 Address [address] [place] [address] Care Team Providers Care Enhanced Environmental Operator Name Role Phone Lavell Marcos MD Primary Care Provider Jennifer Sylvester MD Primary Care Provider [phone] [facility], Pcp Primary Care Provider [facility] e Encounter Details Date Type Department Care Team Description 07/09/2016 Pharmacology Associate Report Medical Records [address] [place] [address] 44346 Eduardo Lino MD Social History Tobacco Use [...] on filedocumented in this encounter Care Teams Enhanced Environmental Operator Relationship Specialty Start Date End Date Lavell Marcos MD [address] [place] [address] 17101 PCP - General 04/06/07 02/08/21 Jennifer Sylvester MD [address] [place] [address] 86650 PCP - General Internal Medicine 02/09/21 01/22/23 [facility], Pcp [address] [place] [address] 03693 PCP - General Internal Medicine 01/23/23 documented as of this encounter
--- OUTSIDE RECORDS SUMMARY | 2025-11-02 08:59 | XMS_ITS | Encounter Summary ---
Author Organization [facility] Prior to 09/03/2024 Address [address] [place] [address] Care Team Providers Care Paint Prep Technician Name Role Phone Jennifer Sylvester MD Primary Care Provider [phone] [facility], Pcp Primary Care Provider Unavailabl e Encounter Details Date Type Department Care Team Description 09/24/2021 Forge Shop Supervisor Report Medical Records [address] [place] [address] 55851 Bib Sandoval MD Social History Tobacco Use [...] on filedocumented in this encounter Care Teams Paint Prep Technician Relationship Specialty Start Date End Date Jennifer Sylvester MD [address] [place] [address] [phone] PCP - General Internal Medicine 02/09/21 01/22/23 [facility], Pcp [address] [place] [address] 52939 PCP - General Internal Medicine 01/23/23 documented as of this encounter
--- OUTSIDE RECORDS SUMMARY | 2025-11-02 08:59 | XMS_ITS | Encounter Summary ---
Author Organization [facility] Prior to 09/03/2024 Address [address] [place] [address] Care Team Providers Care Client Support Manager Name Role Phone Lavell Marcos MD Primary Care Provider [phone] Jennifer Sylvester MD Primary Care Provider [phone] [facility], Pcp Primary Care Provider [facility] e Encounter Details Date Type Department Care Team Description 07/16/2016 Pt. Non Urgent Medical Question Gastroenterology - [address] [address] Roger Erazo MD Other constipation (Primary Dx); [...] of this encounter Progress Notes * Elsa HongPMedNMed - 07/16/2016 4:21 PM EDTFrom: Adelina Tavarez [...] syndrome documented in this encounter Care Teams Client Support Manager Relationship Specialty Start Date End Date Lavell Marcos MD [address] [place] [address] 09400 PCP - General 04/06/07 02/08/21 Jennifer Sylvester MD [address] [place] [address] 86995 PCP - General Internal Medicine 02/09/21 01/22/[address] [address] PCP - General Internal Medicine 01/23/23 documented as of this encounter
--- OUTSIDE RECORDS SUMMARY | 2025-11-02 08:59 | XMS_ITS | Encounter Summary ---
Author Organization [facility] Prior to 09/03/2024 Address [address] [place] [address] Care Team Providers Care Twister In Name Role Phone Lavell Marcos MD Primary Care Provider [phone] Jennifer Sylvester MD Primary Care Provider [phone] [facility], Pcp Primary Care Provider [facility] e Encounter Details Date Type Department Care Team Description 02/23/2013 Oil Heater Installer Report Medical Records [address] [place] [address] Micheal Larsen Social History Tobacco Use Types [...] on filedocumented in this encounter Care Teams Twister In Relationship Specialty Start Date End Date Lavell Marcos MD [address] [place] [address] 33884 PCP - General 04/06/07 02/08/21 Jennifer Sylvester MD [address] [place] [address] [phone] PCP - General Internal Medicine 02/09/21 01/22/23 [facility], Pcp [address] [place] [address] 53881 PCP - General Internal Medicine 01/23/23 documented as of this encounter
--- OUTSIDE RECORDS SUMMARY | 2025-11-02 08:59 | XMS_ITS | Encounter Summary ---
Author Organization [facility] Prior to 09/03/2024 Address [address] [place] [address] Care Team Providers Care Broadcast Traffic Coordinator Name Role Phone Lavell Marcos MD Primary Care Provider [phone] Jennifer Sylvester MD Primary Care Provider [phone] [facility], Pcp Primary Care Provider [facility] e Encounter Details Date Type Department Care Team Description 10/05/2012 Gasoline Attendant Report Medical Records [address] [place] [address] 65898 Eduardo Lino MD Social History Tobacco Use [...] on filedocumented in this encounter Care Teams Broadcast Traffic Coordinator Relationship Specialty Start Date End Date Lavell Marcos MD [address] [place] [address] 12046 PCP - General 04/06/07 02/08/21 Jennifer Sylvester MD [address] [place] [address] 26524 PCP - General Internal Medicine 02/09/21 01/22/23 [facility], Pcp [address] [place] [address] 65016 PCP - General Internal Medicine 01/23/23 documented as of this encounter
--- OUTSIDE RECORDS SUMMARY | 2025-11-02 08:59 | XMS_ITS | Encounter Summary ---
Author Organization [facility] Prior to 09/03/2024 Address [address] [place] [address] Care Team Providers Care Administrative Services Officer Name Role Phone Lavell Marcos MD Primary Care Provider Jennifer Sylvester MD Primary Care Provider [phone] [facility], Pcp Primary Care Provider [facility] e Encounter Details Date Type Department Care Team Description 12/04/2015 RUBBER STAMP ASSEMBLER/MassPat Report Medical Records [address] [place] [address] 65706 Abstract, Provider Social History Tobacco Use Types [...] filedocumented in this encounter Care Teams Administrative Services Officer Relationship Specialty Start Date End Date Lavell Marcos MD [address] [place] [address] 55106 PCP - General 04/06/07 02/08/21 Jennifer Sylvester MD [address] [place] [address] 72722 PCP - General Internal Medicine 02/09/21 01/22/23 [facility], Pcp [address] [place] [address] 19486 PCP - General Internal Medicine 01/23/23 documented as of this encounter
--- OUTSIDE RECORDS SUMMARY | 2025-11-02 08:59 | XMS_ITS | Encounter Summary ---
Author Organization [facility] Prior to 09/03/2024 Address [address] [place] [address] Care Team Providers Care Engineering Director Name Role Phone Lavell Marcos MD Primary Care Provider [phone] Jennifer Sylvester MD Primary Care Provider [phone] [facility], Pcp Primary Care Provider [facility] e Encounter Details Date Type Department Care Team Description 02/06/2016 Weatherization Administrator Report Medical Records [address] [place] [address] 08471 Bib Sandoval MD Social History Tobacco Use [...] filedocumented in this encounter Care Teams Engineering Director Relationship Specialty Start Date End Date Lavell Marcos MD [address] [place] [address] 98453 PCP - General 04/06/07 02/08/21 Jennifer Sylvester MD [address] [place] [address] 81910 PCP - General Internal Medicine 02/09/21 01/22/23 [facility], Pcp [address] [place] [address] 00125 PCP - General Internal Medicine 01/23/23 documented as of this encounter
--- OUTSIDE RECORDS SUMMARY | 2025-11-02 08:59 | XMS_ITS | Encounter Summary ---
Author Organization [facility] Prior to 09/03/2024 Address [address] [place] [address] Care Team Providers Care Doubler Operator Name Role Phone Lavell Marcos MD Primary Care Provider Jennifer Sylvester MD Primary Care Provider [facility], Pcp Primary Care Provider [facility] e Encounter Details Date Type Department Care Team Description 06/07/2019 Fiber Artist Report Medical Records [address] [place] [address] Jose Cornejo MD Social History Tobacco Use [...] on filedocumented in this encounter Care Teams Doubler Operator Relationship Specialty Start Date End Date Lavell Marcos MD [address] [place] [address] 98464 PCP - General 04/06/07 02/08/21 Jennifer Sylvester MD [address] [place] [address] 01101 PCP - General Internal Medicine 02/09/21 01/22/23 [facility], Pcp [address] [place] [address] 16072 PCP - General Internal Medicine 01/23/23 documented as of this encounter
--- OUTSIDE RECORDS SUMMARY | 2025-11-02 08:59 | XMS_ITS | Encounter Summary ---
Author Organization [facility] Prior to 09/03/2024 Address [address] [place] [address] Care Team Providers Care Assistant Professor Of Marine Biology Name Role Phone Jennifer Sylvester MD Primary Care Provider [phone] [facility], Pcp Primary Care Provider [facility] e Encounter Details Date Type Department Care Team Description 06/11/2022 Surgery Nurse Report Medical Records [address] [place] [address] 16437 Bib Sandoval MD Social History Tobacco Use [...] filedocumented in this encounter Care Teams Assistant Professor Of Marine Biology Relationship Specialty Start Date End Date Jennifer Sylvester MD [address] [place], [place] [phone] PCP - General Internal Medicine 02/09/21 01/22/23 [facility], Pcp [address] [place] [address]3976 PCP - General Internal Medicine 01/23/23 documented as of this encounter
--- OUTSIDE RECORDS SUMMARY | 2025-11-02 08:59 | XMS_ITS | Encounter Summary ---
Author Organization [facility] Prior to 09/03/2024 Address [address] [place] [address] Care Team Providers Care Radio Equipment Repairer Name Role Phone Lavell Marcos MD Primary Care Provider [phone] Jennifer Sylvester MD Primary Care Provider [phone] [facility], Pcp Primary Care Provider Unavailabl e Reason for Visit * Reason Onset Date Comments other 08/30/2019 Encounter Details Date Type Department Care Team Description 08/30/2019 Telephone Physiatry - [place] [address] [place], [place] [phone] Lavell Marcos MD [address] [place], [place] [phone] other Social History Tobacco Use Types Packs/Day [...] Miscellaneous Notes * Telephone Encounter - Radha Steven Alanis - 08/30/2019 4:40 PM EDT I [...] on filedocumented in this encounter Care Teams Radio Equipment Repairer Relationship Specialty Start Date End Date Lavell Marcos MD [address] [place] [address] PCP - General 04/06/07 02/08/21 Jennifer Sylvester MD [address] [place] [address] 64485 PCP - General Internal Medicine 02/09/21 01/22/[address] [address] PCP - General Internal Medicine 01/23/23 documented as of this encounter
--- OUTSIDE RECORDS SUMMARY | 2025-11-02 08:59 | XMS_ITS | Encounter Summary ---
Author Organization [facility] Prior to 09/03/2024 Address [address] [place] [address] Care Team Providers Care First Calender Worker Name Role Phone Lavell Marcos MD Primary Care Provider [phone] Jennifer Sylvester MD Primary Care Provider [phone] [facility], Pcp Primary Care Provider [facility] e Encounter Details Date Type Department Care Team Description 05/07/2012 Hospital Medical Records [address] [place] [address] Chelsea Hassan Social History Tobacco Use Types [...] filedocumented in this encounter Care Teams First Calender Worker Relationship Specialty Start Date End Date Lavell Marcos MD [address] [place] [address]4043 PCP - General 04/06/07 02/08/21 Jennifer Sylvester MD [address] [place] [address] 77402 PCP - General Internal Medicine 02/09/21 01/22/23 [facility], Pcp [address] [place] [address] 63588 PCP - General Internal Medicine 01/23/23 documented as of this encounter
--- OUTSIDE RECORDS SUMMARY | 2025-11-02 08:59 | XMS_ITS | Encounter Summary ---
Author Organization [facility] Prior to 09/03/2024 Address [address] [place] [address] Care Team Providers Care Patient Account Specialist Name Role Phone Jennifer Sylvester MD Primary Care Provider [phone] [facility], Pcp Primary Care Provider [facility]ail[facility] e Encounter Details Date Type Department Care Team Description 12/31/2021 Core Maker Report Medical Records [address] [place] [address] Bib Sandoval MD Social History Tobacco Use [...] on filedocumented in this encounter Care Teams Patient Account Specialist Relationship Specialty Start Date End Date Jennifer Sylvester MD [address] [place], [place] [phone] PCP - General Internal Medicine 02/09/21 01/22/23 [facility], Pcp [address] [place] [address] 42797 PCP - General Internal Medicine 01/23/23 documented as of this encounter
--- OUTSIDE RECORDS SUMMARY | 2025-11-02 08:59 | XMS_ITS | Encounter Summary ---
Author Organization [facility] Prior to 09/03/2024 Address [address] [place] [address] Care Team Providers Care Clinical Marketing Manager Name Role Phone Lavell Marcos MD Primary Care Provider [phone] Jennifer Sylvester MD Primary Care Provider [phone] [facility], Pcp Primary Care Provider [facility] e Encounter Details Date Type Department Care Team Description 11/13/2012 Ccnp Report Medical Records [address] [place] [address] Eduardo Lino MD Social History Tobacco Use [...] filedocumented in this encounter Care Teams Clinical Marketing Manager Relationship Specialty Start Date End Date Lavell Marcos MD [address] [place] [address] 23041 PCP - General 04/06/07 02/08/21 Jennifer Sylvester MD [address] [place] [address] 43811 PCP - General Internal Medicine 02/09/21 01/22/23 [facility], Pcp [address] [place] [address] 75740 PCP - General Internal Medicine 01/23/23 documented as of this encounter
--- OUTSIDE RECORDS SUMMARY | 2025-11-02 08:59 | XMS_ITS | Encounter Summary ---
Author Organization [facility] Prior to 09/03/2024 Address [address] [place] [address] Care Team Providers Care Fabric Worker Name Role Phone Lavell Marcos MD Primary Care Provider [phone] Jennifer Sylvester MD Primary Care Provider [phone] [facility], Pcp Primary Care Provider [facility] e Encounter Details Date Type Department Care Team Description 07/19/2016 Pt. Non Urgent Medical Question Adult Medicine [address] [address] Lavell Marcos MD [address] [place] [address] [phone] Social History Tobacco Use Types Packs/Day Years [...] filedocumented in this encounter Care Teams Fabric Worker Relationship Specialty Start Date End Date Lavell Marcos MD [address] [place] [address] 77578 PCP - General 04/06/07 02/08/21 Jennifer Sylvester MD [address] [place] [address] 64329 PCP - General Internal Medicine 02/09/21 01/22/[address] [address] PCP - General Internal Medicine 01/23/23 documented as of this encounter
--- OUTSIDE RECORDS SUMMARY | 2025-11-02 08:59 | XMS_ITS | Encounter Summary ---
Author Organization [facility] Prior to 09/03/2024 Address [address] [place] [address] Care Team Providers Care Director Of Vendor Management Name Role Phone Lavell Marcos MD Primary Care Provider [phone] Jennifer Sylvester MD Primary Care Provider [phone] [facility], Pcp Primary [facility] Encounter Details Date Type Department Care Team Description 02/05/2013 Test Desk Trouble Locator Report Medical Records [address] [place] [address] Eduardo Lino MD Social History Tobacco Use [...] in this encounter Care Teams Director Of Vendor Management Relationship Specialty Start Date End Date Lavell Marcos MD [address] [place] [address] 74634 PCP - General 04/06/07 02/08/21 Jennifer Sylvester MD [address] [place] [address] 68616 PCP - General Internal Medicine 02/09/21 01/22/23 [facility], Pcp [address] [place] [address]42 PCP - General Internal Medicine 01/23/23 documented as of this encounter
--- OUTSIDE RECORDS SUMMARY | 2025-11-02 08:59 | XMS_ITS | Encounter Summary ---
Author Organization [facility] Prior to 09/03/2024 Address [address] [place] [address] Care Team Providers Care Carpet Cleaning Technician Name Role Phone Jennifer Sylvester MD Primary Care Provider [phone] [facility], Pcp Primary Care Provider Unavailabl e Encounter Details Date Type Department Care Team Description 08/06/2021 Hospital Medical Records [address] [place] [address] Souleymane Stearns MD Social History Tobacco Use [...] on filedocumented in this encounter Care Teams Carpet Cleaning Technician Relationship Specialty Start Date End Date Jennifer Sylvester MD [address] [place] [address] [phone] PCP - General Internal Medicine 02/09/21 01/22/23 [facility], Pcp [address] [place] [address] 33974 PCP - General Internal Medicine 01/23/23 documented as of this encounter
--- OUTSIDE RECORDS SUMMARY | 2025-11-02 08:59 | XMS_ITS | Clinical Summary ---
Author Organization [facility] Address [address] [place] [address] Phone Care Team Providers Care Emergency Veterinary Assistant Name Role Phone Vernon Mojica MD Primary [...] and muscle strengthening exercises. Follow closely with mover helper as scheduled Visit for monitoring Reclast therapy [...] Continue as prescribed. Close follow-up with treating/prescribing perennial house manager Assessment & Plan (01/06/2020 1:22 PM EST): Continue as prescribed. Close follow-up with treating/prescribing perennial house manager Assessment & Plan (03/31/2019 8:43 AM EDT): Continue as prescribed. Close follow-up with treating/prescribing perennial house manager Primary osteoarthritis involving multiple joints 10/06/2017 [...] Formulation 11/10(Deferred: Other - , Ordered By: [id number]),08/03/2012 Pneumococcal conjugate PCV13 06/22/2015 Pneumococcal polysaccharide PPSV23 [...] bone mineral density since 2018. POS - [id number] Narrative 04/20/2019 9:11 AM EDT This is [...] at L3-4 and was calculated at 0.667 gm/oi5igwn a T-score of - 2.8 and Z-score of -0.8, falling within the WHOclassification of osteoporosis, representing an interval decline of 3.2%since 2018 which is not felt to be within the range of statisticalsignificance.. Total bone mineral density in the right hip was calculated at 0.675 gm/rm6bsjw a T-score of -2.2 and Z-score of [...] hip bone mineral densitysince 2018. POS - [id number] us Johnna I Klich-Navneet MD IMG BD BONE DENSITY DEXA Final Result * (ABNORMAL) Historical Lab (02/23/2013 10:57 AM EDT) Thyroid Stimulating Hormone 0.09(Abno rmally L) 0.40 - 5.00 uU/ml [facility] 02/23/2013 10:5 7 AM EDT 02/23/2013 1:14 PM EDT Comment:BLOOD us Micheal Larsen MD LAB BLOOD ORDERABLES Final Result [address] [address] from Last 3 Months or Most Recently Relevant to Health Maintenance Insurance MEDICARE PART A & B [facility] MEDIC[facility] ENHANCE SUPPLEMENT [facility] [place]: [facility] [id number] SAAD [place]UBIN [id number] MEDICARE PART A & B [facility] MEDICARE ENHANCE SUPPLEMENT MEDICARE PART A & B [facility] MEDICARE ENHANCE SUPPLEMENT MEDICARE PART A & B MEDICARE ENHANCE SUPPLEMENT MEDICARE PART A & B [id number] [place] [address] MEDICARE ENHANCE SUPPLEMENT MEDICARE PART A & B [facility] MEDICARE ENHANCE SUPPLEMENT MEDICARE PART A & B [facility] MEDICARE ENHANCE SUPPLEMENT MEDICARE PART A & B [facility] MEDICARE ENHANCE SUPPLEMENT MEDICARE PART A & B [facility] MEDICARE ENHANCE SUPPLEMENT MEDICARE PART A & B [facility] MEDICARE ENHANCE SUPPLEMENT Care Teams Emergency Veterinary Assistant Relationship Specialty Start Date End Date Vernno Mojica MD [address] [place] [address] NADIASAAD MURPHY [phone] PCP - General Internal Medicine 07/03/22 Additional Source Comments The information contained in this document represents components of the legal health record. It is not the complete legal health record.[facility]
--- OUTSIDE RECORDS SUMMARY | 2025-11-02 08:59 | XMS_ITS | Encounter Summary ---
Author Organization [facility] Prior to 09/03/2024 Address [address] [place] [address] Care Team Providers Care Bond Broker Name Role Phone Lavell Marcos MD Primary Care Provider Jennifer Sylvester MD Primary Care Provider [phone] [facility], Pcp Primary Care Provider [facility] e Encounter Details Date Type Department Care Team Description 09/02/2019 Garment Steamer Report Medical Records [address] [place] [address] Augie Braga MD Social History Tobacco Use [...] on filedocumented in this encounter Care Teams Bond Broker Relationship Specialty Start Date End Date Lavell Marcos MD [address] [place] [address] 17105 PCP - General 04/06/07 02/08/21 Jennifer Sylvester MD [address] [place] [address] 15450 PCP - General Internal Medicine 02/09/21 01/22/23 [facility], Pcp [address] [place] [address] 48866 PCP - General Internal Medicine 01/23/23 documented as of this encounter
--- OUTSIDE RECORDS SUMMARY | 2025-11-02 08:59 | XMS_ITS | Encounter Summary ---
Author Organization [facility] Prior to 09/03/2024 Address [address] [place] [address] Care Team Providers Care Equity Trader Name Role Phone Lavell Marcos MD Primary Care Provider [phone] Jennifer Sylvester MD Primary Care Provider [phone] [facility], Pcp [facility] Encounter Details Date Type Department Care Team Description 01/10/2017 Marriage Therapist Report Medical Records [address] [place] [address] Reji White MD [address] [place] [address]39 Social History Tobacco Use Types Packs/Day Years [...] on filedocumented in this encounter Care Teams Equity Trader Relationship Specialty Start Date End Date Lavell Marcos MD [address] [place] [address] 73641 PCP - General 04/06/07 02/08/21 Jennifer Sylvester MD [address] [place] [address] 08326 PCP - General Internal Medicine 02/09/21 01/22/23 [facility], [address] [address] PCP - General Internal Medicine 01/23/23 documented as of this encounter
--- OUTSIDE RECORDS SUMMARY | 2025-11-02 08:59 | XMS_ITS | Encounter Summary ---
Author Organization [facility] Prior to 09/03/2024 Address [address] [place] [address] Care Team Providers Care Street Roller Engineer Name Role Phone Lavell Marcos MD Primary Care Provider [phone] Jennifer Sylvester MD Primary Care Provider [phone] [facility], Pcp Primary Care Provider [facility] e Encounter Details Date Type Department Care Team Description 12/09/2016 Ice Cream Machine Operator Report Medical Records [address] [place] [address] Reji White MD [address] [place] [address] 91599 Social History Tobacco Use Types Packs/Day Years [...] on filedocumented in this encounter Care Teams Street Roller Engineer Relationship Specialty Start Date End Date Lavell Marcos MD [address] [place] [address] 84514 PCP - General 04/06/07 02/08/21 Jennifer Sylvester MD [address] [place] [address] 93381 PCP - General Internal Medicine 02/09/21 01/22/23 [facility], [address] [address] PCP - General Internal Medicine 01/23/23 documented as of this encounter
--- OUTSIDE RECORDS SUMMARY | 2025-11-02 08:59 | XMS_ITS | Encounter Summary ---
Author Organization [facility] Prior to 09/03/2024 Address [address] [place] [address] Care Team Providers Care C.O.D. Audit Clerk Name Role Phone Lavell Marcos MD Primary Care Provider [phone] Jennifer Sylvester MD Primary Care Provider [phone] [facility], Pcp Primary Care Provider [facility] e Encounter Details Date Type Department Care Team Description 05/07/2016 Brick Yard Hand Report Medical Records [address] [place] [address] Eduardo Lino MD Social History Tobacco Use [...] on filedocumented in this encounter Care Teams C.O.D. Audit Clerk Relationship Specialty Start Date End Date Lavell Marcos MD [address] [place] [address] 23270 PCP - General 04/06/07 02/08/21 Jennifer Sylvester MD [address] [place] [address] 43334 PCP - General Internal Medicine 02/09/21 01/22/23 [facility], Pcp [address] [place] [address] 86799 PCP - General Internal Medicine 01/23/23 documented as of this encounter
--- OUTSIDE RECORDS SUMMARY | 2025-11-02 08:59 | XMS_ITS | Encounter Summary ---
Author Organization [facility] Prior to 09/03/2024 Address [address] [place] [address] Care Team Providers Care Pants Cutter Name Role Phone Lavell Marcos MD Primary Care Provider [phone] Jennifer Sylvester MD Primary Care Provider [phone] [facility], Pcp Primary Care Provider Unavailabl e Reason for Visit * Reason Onset Date Comments Error 08/05/2019 Encounter Details Date Type Department Care Team Description 08/05/2019 Telephone Adult Medicine [address] [address] Lavell Marcos MD [address] [place] [address] [phone] Error Social History Tobacco Use Types Packs/Day [...] on filedocumented in this encounter Care Teams Pants Cutter Relationship Specialty Start Date End Date Lavell Marcos MD [address] [place] [address] [phone] PCP - General 04/06/07 02/08/21 Jennifer Sylvester MD [address] [place] [address] [phone] PCP - General Internal Medicine 02/09/21 01/22/23 [facility], Pcp [address] [place] [address] PCP - General Internal Medicine 01/23/23 documented as of this encounter
--- OUTSIDE RECORDS SUMMARY | 2025-11-02 08:59 | XMS_ITS | Encounter Summary ---
Author Organization [facility] Prior to 09/03/2024 Address [address] [place] [address] Care Team Providers Care Operations Intern Name Role Phone Lavell Marcos MD Primary Care Provider [phone] Jennifer Sylvester MD Primary Care Provider [facility], Pcp Primary Care Provider [facility] e Encounter Details Date Type Department Care Team Description 11/10/2012 Loader Operator Report Medical Records [address] [place] [address] Micheal Larsen Social History Tobacco Use Types [...] filedocumented in this encounter Care Teams Operations Intern Relationship Specialty Start Date End Date Lavell Marcos MD [address] [place] [address] PCP - General 04/06/07 02/08/21 Jennifer Sylvester MD [address] [place] [address] [phone] PCP - General Internal Medicine 02/09/21 01/22/23 [facility], Pcp [address] [place] [address] 846[address] PCP - General Internal Medicine 01/23/23 documented as of this encounter
--- OUTSIDE RECORDS SUMMARY | 2025-11-02 08:59 | XMS_ITS | Encounter Summary ---
Author Organization [facility] Prior to 09/03/2024 Address [address] [place] [address] Care Team Providers Care Client Account Representative Name Role Phone Lavell Marcos MD Primary Care Provider Jennifer Sylvester MD Primary Care Provider [phone] [facility], Pcp Primary Care Provider [facility] e Encounter Details Date Type Department Care Team Description 10/21/2016 Inspector Returned Materials Report Medical Records [address] [place] [address] Eduardo Lino MD Social History Tobacco Use [...] Date End Date Lavell Marcos MD [address] [place] [address] 88391 PCP - General 04/06/07 02/08/21 Jennifer Sylvester MD [address] [place] [address] 29907 PCP - General Internal Medicine 02/09/21 01/22/23 [facility], Pcp [address] [place] [address] 462[address] PCP - General Internal Medicine 01/23/23 documented as of this encounter
--- OUTSIDE RECORDS SUMMARY | 2025-11-02 08:59 | XMS_ITS | Encounter Summary ---
Author Organization [facility] Prior to 09/03/2024 Address [address] [place] [address] Care Team Providers Care Medical Operations Supervisor Name Role Phone Jennifer Sylvester MD Primary Care Provider [phone] [facility], Pcp Primary Care [facility] e Encounter Details Date Type Department Care Team Description 08/12/2022 Substitute Nurse Report Medical Records [address] [place] [address] Bib Sandoval MD Social History Tobacco Use [...] filedocumented in this encounter Care Teams Medical Operations Supervisor Relationship Specialty Start Date End Date Jennifer Sylvester MD [address] [place], [place] [phone] PCP - General Internal Medicine 02/09/21 01/22/23 [facility], Pcp [address] [place] [address] 16[address] PCP - General Internal Medicine 01/23/23 documented as of this encounter
--- OUTSIDE RECORDS SUMMARY | 2025-11-02 08:59 | XMS_ITS | Encounter Summary ---
Author Organization [facility] Prior to 09/03/2024 Address [address] [place] [address] Care Team Providers Care Php Wordpress Developer Name Role Phone Lavell Marcos MD Primary Care Provider [phone] Jennifer Sylvester MD Primary Care Provider [phone] [facility], Pcp Primary Care Provider [facility] e Encounter Details Date Type Department Care Team Description 04/08/2019 Center Lead Consultant Report Medical Records [address] [place] [address] Jose Cornejo MD Social History Tobacco Use [...] on filedocumented in this encounter Care Teams Php Wordpress Developer Relationship Specialty Start Date End Date Lavell Marcos MD [address] [place] [address] 52755 PCP - General 04/06/07 02/08/21 Jennifer Sylvester MD [address] [place] [address] 85822 PCP - General Internal Medicine 02/09/21 01/22/23 [facility], Pcp [address] [place] [address] 87720 PCP - General Internal Medicine 01/23/23 documented as of this encounter
--- OUTSIDE RECORDS SUMMARY | 2025-11-02 08:59 | XMS_ITS | Encounter Summary ---
Author Organization [facility] Prior to 09/03/2024 Address [address] [place] [address] Care Team Providers Care Statement Clerks Supervisor Name Role Phone Lavell Marcos MD Primary Care Provider [phone] Jennifer Sylvester MD Primary Care Provider [facility], Pcp Primary Care Provider Unavailabl e Encounter Details Date Type Department Care Team Description 01/11/2016 Telephone Adult Medicine [address] [address] Lavell Marcos MD [address] [place] [address] [phone] Social History Tobacco Use Types Packs/Day Years [...] on filedocumented in this encounter Care Teams Statement Clerks Supervisor Relationship Specialty Start Date End Date Lavell Marcos MD [address] [place] [address] [phone] PCP - General 04/06/07 02/08/21 Jennifer Sylvester MD [address] [place] [address]463 PCP - General Internal Medicine 02/09/21 01/22/23 [facility], Pcp [address] [place] [address] PCP - General Internal Medicine 01/23/23 documented as of this encounter
--- OUTSIDE RECORDS SUMMARY | 2025-11-02 08:59 | XMS_ITS | Encounter Summary ---
Author Organization [facility] Prior to 09/03/2024 Address [address] [place] [address] Care Team Providers Care Retail Client Solutions Consultant Name Role Phone Lavell Marcos MD Primary Care Provider [phone] Jennifer Sylvester MD Primary Care Provider [phone] [facility], Pcp Primary Care Provider Unavailabl e Reason for Visit * Reason Onset Date Comments Medication 02/12/2017 acid reflux Encounter Details Date Type Department Care Team Description 02/12/2017 Telephone Gastroenterology - [address] [address] Roger Erazo MD Medication (acid reflux) Social [...] 20 mg twice a day to the [facility] pharmacy listed in her chart. She should try this out and call me back in week or 2. * Telephone Encounter - Daisy Rahman - 02/12/2017 9:59 AM EDT Patient is having acid reflux, she wants to know if there is something can prescribe for her, please advise, thank you! documented in this encounter Plan of Treatment Not on file documented as of this encounter Visit Diagnoses Diagnosis Heartburn- Primary documented in this encounter Care Teams Retail Client Solutions Consultant Relationship Specialty Start Date End Date Lavell Marcos MD [address] [place] [phone] PCP - General 04/06/07 02/08/21 Jennifer Sylvester MD [address] [place] [address] 59914 PCP - General Internal Medicine 02/09/21 01/22/[address] [address] PCP - General Internal Medicine 01/23/23 documented as of this encounter
--- OUTSIDE RECORDS SUMMARY | 2025-11-02 08:59 | XMS_ITS | Encounter Summary ---
Author Organization [facility] Prior to 09/03/2024 Address [address] [place] [address] Care Team Providers Care Bilingual Interpreter Name Role Phone Jennifer Sylvester MD Primary Care Provider [phone] [facility], Pcp Primary Care Provider Unavailabl e Encounter Details Date Type Department Care Team Description 04/05/2022 Menu Planner Report Medical Records [address] [place] [address] Nikunj Espinoza MD Social History Tobacco Use [...] on filedocumented in this encounter Care Teams Bilingual Interpreter Relationship Specialty Start Date End Date Jennifer Sylvester MD [address] [place] [address] [phone] PCP - General Internal Medicine 02/09/21 01/22/23 [facility], Pcp [address] [place] [address] PCP - General Internal Medicine 01/23/23 documented as of this encounter
--- OUTSIDE RECORDS SUMMARY | 2025-11-02 08:59 | XMS_ITS | Encounter Summary ---
Author Organization [facility] Prior to 09/03/2024 Address [address] [place] [address] Care Team Providers Care Manager Of Financial Reporting Name Role Phone Lavell Marocs MD Primary Care Provider [phone] Jennifer Sylvester MD Primary Care Provider [phone] [facility], Pcp Primary [facility] e Encounter Details Date Type Department Care Team Description 05/24/2016 Hospital Medical Records [address] [place] [address] Eduardo Lino MD Social History Tobacco Use [...] filedocumented in this encounter Care Teams Manager Of Financial Reporting Relationship Specialty Start Date End Date Lavell Marcos MD [address] [place] [address] PCP - General 04/06/07 02/08/21 Jennifer Sylvester MD [address] [place] [address] 20604 PCP - General Internal Medicine 02/09/21 01/22/23 [facility], Pcp [address] [place] [address] 97227 PCP - General Internal Medicine 01/23/23 documented as of this encounter
--- OUTSIDE RECORDS SUMMARY | 2025-11-02 08:59 | XMS_ITS | Clinical Summary ---
Author Organization [facility] Prior to 09/03/2024 Address [address] [place] [address] Care Team Providers Care Manager Salt Name Role Phone [facility], Pcp Primary Care [...] Dispensed Refills Start Date End Date Status [id number]-[id number]-FKT FEINE 50-325-40 MG OR TABS (FIORICET) per [...] hours as needed for Wheezing. 50 Vial 07/30/2018 Active Nutritional Supplements (VITAMIN D BOOSTER [...] on Friday, Wednesdays and Fridays 0 Active [id number]-V [employer] OR Take 1 Tab by mouth [...] left lobe of the liver, ultrasound examination, [facility], 12/12/2005. 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
--- OUTSIDE RECORDS SUMMARY | 2025-11-02 08:59 | XMS_ITS | Encounter Summary ---
Author Organization [facility] Prior to 09/03/2024 Address [address] [place] [address] Care Team Providers Care Coal Feeder Operator Name Role Phone Lavell Marcos MD Primary Care Provider [phone] Jennifer Sylvester MD Primary Care Provider [facility], Pcp [facility] Encounter Details Date Type Department Care Team Description 07/22/2012 Release of Information Medical Records [address] [place] [address] 7[address] Abstract, Provider Social History Tobacco Use Types [...] on filedocumented in this encounter Care Teams Coal Feeder Operator Relationship Specialty Start Date End Date Lavell Marcos MD [address] [place] [address] [phone] PCP - General 04/06/07 02/08/21 Jennifer Sylvester MD [address] [place] [address] 72868 PCP - General Internal Medicine 02/09/21 01/22/23 [facility], Pcp [address] [place] [address] 30757 PCP - General Internal Medicine 01/23/23 documented as of this encounter
--- OUTSIDE RECORDS SUMMARY | 2025-11-02 08:59 | XMS_ITS | Encounter Summary ---
Author Organization [facility] Prior to 09/03/2024 Address [address] [place] [address] Care Team Providers Care Atmospheric Scientist Name Role Phone Lavell Marcos MD Primary Care Provider [phone] Jnenifer Sylvester MD Primary Care Provider [phone] [facility], Pcp Primary Care Provider [facility] Encounter Details Date Type Department Care Team Description 09/10/2019 Old Medical Records Medical Records [address] [place] [address] 04142 Abstract, Provider Social History Tobacco Use Types [...] on filedocumented in this encounter Care Teams Atmospheric Scientist Relationship Specialty Start Date End Date Lavell Marcos MD [address] [place] [address] 63760 PCP - General 04/06/07 02/08/21 Jennifer Sylvester MD [address] [place] [address] 22115 PCP - General Internal Medicine 02/09/21 01/22/23 [facility], Pcp [address] [place] [address] 18505 PCP - General Internal Medicine 01/23/23 documented as of this encounter
--- OUTSIDE RECORDS SUMMARY | 2025-11-02 08:59 | XMS_ITS | Encounter Summary ---
Author Organization [facility] Prior to 09/03/2024 Address [address] [place] [address] Care Team Providers Care Clinical Appeals Reviewer Name Role Phone Lavell Marcos MD Primary Care Provider Jennifer Sylvester MD Primary Care Provider [phone] [facility], Pcp Primary Care Provider [facility] Encounter Details Date Type Department Care Team Description 08/17/2019 Pantograph Engraver Report Medical Records [address] [place] [address] 31816 Eduardo Lino MD Social History Tobacco Use [...] filedocumented in this encounter Care Teams Clinical Appeals Reviewer Relationship Specialty Start Date End Date Lavell Marcos MD [address] [place] [address] 03703 PCP - General 04/06/07 02/08/21 Jennifer Sylvester MD [address] [place] [address] 98871 PCP - General Internal Medicine 02/09/21 01/22/23 [facility], Pcp [address] [place] [address] 41123 PCP - General Internal Medicine 01/23/23 documented as of this encounter
--- OUTSIDE RECORDS SUMMARY | 2025-11-02 08:59 | XMS_ITS | Encounter Summary ---
Author Organization [facility] Prior to 09/03/2024 Address [address] [place] [address] Care Team Providers Care Dumpster Operator Name Role Phone Lavell Marcos MD Primary Care Provider [phone] Jennifer Sylvester MD Primary Care Provider [phone] [facility], Pcp Primary Care Provider Unavailabl e Reason for Visit * Reason Onset Date Comments Echocardiogram 09/08/2012 Encounter Details Date Type Department Care Team Description 09/08/2012 Telephone Adult Medicine [address] [id number] Roselyn Tavarez PA-C Echocardiogram Social History Tobacco [...] for the echocardiogram has been faxed to [address] to be done documented in this encounter Plan of Treatment Not on file documented as of this encounter Visit Diagnoses Not on filedocumented in this encounter Care Teams Dumpster Operator Relationship Specialty Start Date End Date Lavell Marcos MD [address] [place] [address] [phone] PCP - General 04/06/07 02/08/21 Jennifer Sylvester MD [address] [place] [address] 01020 PCP - General Internal Medicine 02/09/21 01/22/23 [facility], Pcp [address] [place] [address] 37534 PCP - General Internal Medicine 01/23/23 documented as of this encounter
--- OUTSIDE RECORDS SUMMARY | 2025-11-02 08:59 | XMS_ITS | Encounter Summary ---
Author Organization [facility] Prior to 09/03/2024 Address [address] [place] [address] Care Team Providers Care Education Program Specialist Name Role Phone Lavell Marcos MD Primary Care Provider [phone] Jennifer Sylvester MD Primary Care Provider [facility], Pcp [facility] Encounter Details Date Type Department Care Team Description 07/28/2012 Cctv Technician Report Medical Records [address] [place] [address] Rich Beatty Social History Tobacco Use Types [...] filedocumented in this encounter Care Teams Education Program Specialist Relationship Specialty Start Date End Date Lavell Marcos MD [address] [place] [address] 88937 PCP - General 04/06/07 02/08/21 Jennifer Sylvester MD [address] [place] [address] 51232 PCP - General Internal Medicine 02/09/21 01/22/23 [facility], Pcp [address] [place] [address] 85233 PCP - General Internal Medicine 01/23/23 documented as of this encounter
--- OUTSIDE RECORDS SUMMARY | 2025-11-02 08:59 | XMS_ITS | Encounter Summary ---
Author Organization [facility] Prior to 09/03/2024 Address [address] [place] [address] Care Team Providers Care Marine Firefighter Name Role Phone Lavell Marcos MD Primary Care Provider [phone] Jennifer Sylvester MD Primary Care Provider [phone] [facility], Pcp Primary Care Provider [facility] Encounter Details Date Type Department Care Team Description 03/05/2013 Pt. Non Urgent Medical Question Adult Medicine [facility] [address] [place] [address] 78172 Lavell Marcos MD [address] [place] [address] [phone] HYPOTHYROIDISM (Primary Dx) Social History Tobacco Use [...] AM Subject: TSH Adelina Marcos, Dr. Larsen, [facility] did a TSH on 02/23/13. Result 0.09 Reference Range 0.40-5.00 The TSH seems low. When I [facility] to [facility] I thought my dosage was .05 Couldthis [...] range has been changed to 70-100 mg/dL. This change is effective March 19, 2010 BUN 10 5 - 25 mg/dL 04/12/2013 4:20 PM [facility] CREAT 0.6(L) 0.7 - 1.5 mg/dL 04/12/2013 4:23 PM [facility] GFR > 60 >60 04/12/2013 4:31 PM [facility] Comment: If patient is -Cymraes, multiply result by 1.21 Chronic Kidney Disease: < 60 ml/min/1.73 square meters Kidney Failure: < 15 ml/min/1.73 square meters Sodium 142 133 - 145 mEq/L 04/12/2013 4:04 PM [facility] Potassium 3.8 3.5 - 5.2 mEq/L 04/12/2013 4:04 PM [facility] Chloride 105 96 - 108 mEq/L 04/12/2013 4:04 PM [facility] CO2 28.2 21.0 - 32.0 mEq/L 04/12/2013 4:23 PM [facility] CALCIUM 9.5 8.5 - 10.5 mg/dL 04/12/2013 4:26 PM [facility] 04/12/2013 2:05 PM EDT 04/12/2013 2:05 PM EDT Lavell Marcos MD LAB [address] documented in this encounter Visit Diagnoses Diagnosis HYPOTHYROIDISM- Primary Unspecified hypothyroidism documented in this encounter Care Teams Marine Firefighter Relationship Specialty Start Date End Date Lavell Marcos MD [address] [place] [address] 42412 PCP - General 04/06/07 02/08/21 Jennifer Sylvester MD [address] [place] [address] 55327 PCP - General Internal Medicine 02/09/21 01/22/23 [facility], Pcp [address] [place] [address] 15048 PCP - General Internal Medicine 01/23/23 documented as of this encounter
--- OUTSIDE RECORDS SUMMARY | 2025-11-02 08:59 | XMS_ITS | Encounter Summary ---
Author Organization [facility] Prior to 09/03/2024 Address [address] [place] [address] Care Team Providers Care Epic Willow Specialist Name Role Phone Lavell Marcos MD Primary Care Provider Jennifer Sylvester MD Primary Care Provider [phone] [facility], Pcp Primary Care Provider [facility] e Encounter Details Date Type Department Care Team Description 11/16/2019 Floor Assembler Report Medical Records [address] [place] [address] 83751 Eduardo Lino MD Social History Tobacco Use [...] on filedocumented in this encounter Care Teams Epic Willow Specialist Relationship Specialty Start Date End Date Lavell Marcos MD [address] [place] [address] 91788 PCP - General 04/06/07 02/08/21 Jennifer Sylvester MD [address] [place] [address] 77229 PCP - General Internal Medicine 02/09/21 01/22/23 [facility], Pcp [address] [place] [address] 44480 PCP - General Internal Medicine 01/23/23 documented as of this encounter
--- OUTSIDE RECORDS SUMMARY | 2025-11-02 08:59 | XMS_ITS | Encounter Summary ---
Author Organization [facility] Prior to 09/03/2024 Address [address] [place] [address] Care Team Providers Care Cycle Liaison Name Role Phone Lavell Marcos MD Primary Care Provider [phone] Jennifer Sylvester MD Primary Care Provider [phone] [facility], Pcp Primary Care Provider [facility] Encounter Details Date Type Department Care Team Description 01/06/2013 Sql Server Architect Report Medical Records [address] [place] [address] 95542 Eduardo Lino MD Social History Tobacco Use [...] on filedocumented in this encounter Care Teams Cycle Liaison Relationship Specialty Start Date End Date Lavell Marcos MD [address] [place] [address] 07146 PCP - General 04/06/07 02/08/21 Jennifer Sylvester MD [address] [place] [address] 63750 PCP - General Internal Medicine 02/09/21 01/22/23 [facility], Pcp [address] [place] [address] 01000 PCP - General Internal Medicine 01/23/23 documented as of this encounter
--- OUTSIDE RECORDS SUMMARY | 2025-11-02 08:59 | XMS_ITS | Encounter Summary ---
Author Organization [facility] Prior to 09/03/2024 Address [address] [place] [address] Care Team Providers Care Senior Project Coordinator Name Role Phone Lavell Marcos MD Primary Care Provider [phone] Jennifer Sylvester MD Primary Care Provider [phone] [facility], Pcp Primary Care Provider [facility] e Encounter Details Date Type Department Care Team Description 02/11/2017 Commissary Helper Report Medical Records [address] [place] [address] 08775 Eduardo Lino MD Social History Tobacco Use [...] in this encounter Care Teams Senior Project Coordinator Relationship Specialty Start Date End Date Lavell Marcos MD [address] [place] [address] 32964 PCP - General 04/06/07 02/08/21 Jennifer Sylvester MD [address] [place] [address] 10239 PCP - General Internal Medicine 02/09/21 01/22/23 [facility], Pcp [address] [place] [address] 37243 PCP - General Internal Medicine 01/23/23 documented as of this encounter
[2025-11-02 09:09] VITALS: BP 122/62; PULSE 74; O2SAT 94; BMI 21.3
--- NOTE | 2025-11-02 09:09 | A.OFFVIS_ITS ---
Vital Signs 11/02/25 09:09 Height 5 ft Weight 109 lb BMI 21.3 BP 122/62 Blood Pressure Location Lt brachial Position Sitting Pulse 74 Pulse Source Pulse Oximeter Pulse Oximetry (%) 94 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 Allergies naproxen (From NAPROSYN) Allergy (Severe, Verified 11/02/25 09:17) sensitivity niacin (From NIASPAN EXTENDED-RELEASE) Allergy (Severe, Verified 11/02/25 09:17) Rash clarithromycin (From BIAXIN) Allergy (Mild, Verified 11/02/25 09:17) sensitivity codeine (CODEINE) Allergy (Mild, Verified 11/02/25 09:17) Itching esomeprazole (From Nexium) Allergy (Mild, Verified 11/02/25 09:17) Hives fluconazole (From DIFLUCAN) Allergy (Mild, Verified 11/02/25 09:17) sensitivity gatifloxacin (From TEQUIN) Allergy (Mild, Verified 11/02/25 09:17) sensitivity hydrocodone (From Vicodin) Allergy (Mild, Verified 11/02/25 09:17) Rash levofloxacin (From Levaquin) Allergy (Mild, Verified 11/02/25 09:17) sensitivity oxycodone (From Percocet) Allergy (Mild, Verified 11/02/25 09:17) Itching quinidine (QUINIDINE) Allergy (Mild, Verified 11/02/25 09:17) sensitivity Sulfa (Sulfonamide Antibiotics) (SULFA (SULFONAMIDE ANTIBIOTICS)) Allergy (Mild, Verified 11/02/25 09:17) Rash terfenadine (From SELDANE) Allergy (Mild, Verified 11/02/25 09:17) sensitivity tetracycline (TETRACYCLINE) Allergy (Mild, Verified 11/02/25 09:17) sensitivity amitriptyline Allergy (Unknown, Verified 11/02/25 09:17) Unknown cefaclor (From CECLOR) Adverse Reaction (Severe, Verified 11/02/25 09:17) Unknown abaloparatide (From Tymlos) Adverse Reaction (Intermediate, Verified 11/02/25 09:17) Dizziness bupropion (From Wellbutrin) Adverse Reaction (Intermediate, Verified 11/02/25 09:17) Nausea cefdinir Adverse Reaction (Intermediate, Verified 11/02/25 09:17) Stomach Upset montelukast (From Singulair) Adverse Reaction (Mild, Verified 11/02/25 09:17) Headache topiramate (From TOPAMAX) Adverse Reaction (Mild, Verified 11/02/25 09:17) Stomach Upset HPI HPI Cough: Details: 80-year-old lady with underlying COPD, followed by Dr. Lino, presents for sick visit complain of approximately 1 month history of cough essentially nonproductive, but with constant feeling of needing to clear her throat, not happening at night, however bothersome during the daytime with no significant exacerbating or ameliorating factors. Patient also complains of mild sinus tenderness. [facility] Medical History Palpitation Abdominal pain MCI (mild cognitive impairment) Migraine with aura, with intractable migraine, so stated, with status migrainosus Depression Hiatal hernia Anxiety and depression Neck pain Cervical disc disease Muscle tension headache Paresthesia of skin MCI (mild cognitive impairment) with memory loss Vertigo Myopathy Unspecified optic neuritis Memory change Mgrn w aura w intrc mgrn Sinusitis Stroke Migraine Carpal tunnel syndrome Hemiparesis Chest pain Sinus congestion Cough Weight loss Polyarthralgia Fall Shoulder pain, right Back pain Nausea Headache, post-traumatic, acute Scalp irritation Anemia Encounter for vitamin deficiency screening Renal cyst Dense breast Breast cancer screening by mammogram Acute bronchitis Ocular migraine Hyperlipidemia History of CVA (cerebrovascular accident) (~2020) Tubular adenoma of colon (~2005) SERG (obstructive sleep apnea) Nasal vestibulitis Degeneration, intervertebral disc, cervical Dry eye PONV (postoperative nausea and vomiting) Arthritis of neck Cerebral microvascular disease Atherosclerotic cardiovascular disease Precordial chest pain URI (upper respiratory infection) Overactive bladder Microscopic hematuria Urinary urgency Osteoporosis (~1999) Mycobacterial disease GERD (gastroesophageal reflux disease) Pulmonary nodules COPD (chronic obstructive pulmonary disease) Surgical History History of fusion of cervical spine History of sinus surgery History of colonoscopy History of esophagogastroduodenoscopy (EGD) History of bladder suspension procedure Family History Son No problems noted. Social History Household Members: Spouse Housing: Condominium Do you presently have visiting nurse or other home services: No Alcohol intake: never Patient Tobacco Use Status: Never used Tobacco Tobacco use type: Cigarette Years Smoked: parent and smoker e-Cigarette/Vaping Use: Never Used Second Hand Smoke Exposure: Yes Advance Directives Date on File: 08/16/20 service: No Current occupational status: retired Current occupation: right hand Cognitive needs: No Hearing needs: Yes (hearing aides) Vision needs: Yes (Glasses) Review of Systems ENT Reports nasal congestion and Reports post nasal drip Card Denies dyspnea Resp Reports cough, Denies excessive phlegm production, Denies dyspnea and Denies wheezing Aller/Immun Denies wheezing Physical Exam Vital Signs: Last Vital Signs Pulse 74 11/02/25 09:09 BP 122/62 11/02/25 09:09 Pulse Ox 94 11/02/25 09:09 BMI result Body Mass Index 21.3 Const General: no acute distress and alert Nutritional Appearance: not obese Orientation/consciousness: Other orientation findings ( oriented) HEENT Head: Yes atraumatic Eyes General: appearance normal, both eyes and all related structures Sclerae: sclerae normal EOM: EOMs intact bilaterally Neck Neck: Yes supple Lymphatic: no lymphadenopathy noted Resp Effort & Inspection: normal respiratory effort and no use of accessory muscles Auscultation: clear to auscultation bilaterally Cardio Rate: regular rate Rhythm: regular rhythm Heart sounds: no gallops, no murmurs and no rubs Skin General skin exam: other ( warm) Extrem General: No clubbing, No cyanosis and No edema Assessment & Plan Assessment & Plan (1) Rhinitis: Code(s): J31.0 - Chronic rhinitis Category: Medical (2) Cough: Code(s): R05 - Cough Category: Medical Qualifiers: Cough type: chronic Qualified Code(s): R05.3 - Chronic cough (3) COPD (chronic obstructive pulmonary disease): Code(s): J44.9 - Chronic obstructive pulmonary disease, unspecified Category: Medical Qualifiers: COPD type: chronic bronchitis Chronic bronchitis type: simple Qualified Code(s): J41.0 - Simple chronic bronchitis Plan Appears to have chronic sinusitis/rhinitis, at least as a major contributor to her cough. Will treat with a course of doxycycline, patient unaware of any significant tetracycline allergies. Will add nasal ipratropium for symptomatic relief. Continue baseline inhaled corticosteroid/long-acting beta agonist regimen. Medications: New doxycycline monohydrate (Avidoxy) 100 mg PO BID 14 tabs 0RF ipratropium bromide administer into each nostril 2 sprays intranasal TID-QID PRN 15 mL 0RF rhinitis Coding Level of Care Code Est Pt Level 4 (85048) Diagnoses Rhinitis J31.0 Chronic cough R05.3 Cough type: chronic Simple chronic bronchitis J41.0 COPD type: chronic bronchitis Chronic bronchitis type: simple
== END 2025-11-02 09:31 | disposition home or self-care (01) ==
PROVIDERS: PCP Internal Medicine; Visit Provider Internal Medicine Pulmonary Disease
DX: J31.0 Chronic rhinitis (principal); R05.3 Chronic cough; J41.0 Simple chronic bronchitis
CPT/HCPCS: 99214

== ENCOUNTER → 2025-11-02 08:50 | Outpatient (BNVA) | payer MEDICARE, OTHER, SELFPAY | PROVIDERS: PCP Internal Medicine; Visit Provider Internal Medicine Pulmonary Disease | DX: R05.3 Chronic cough (principal); J31.0 Chronic rhinitis | CPT/HCPCS: 99212 ==